=== PATIENT | female | born 1935 | race Caucasian/White ===

== ENCOUNTER 2018-10-27 09:53 | Inpatient (IN) | payer OTHER ==
--- OUTSIDE RECORDS SUMMARY | 2018-10-27 10:18 | XMS REPORT | Clinical Summary ---
:1935 Author Organization [facility] Address [address] [place] [address] Care Team Providers Name Role Phone Trav Abernathy MD Primary Care Provider Allergies Active Allergy Reactions Severity Noted Date Comments Codeine GI Intolerance 03/07/2017 Medications Medication Sig Dispensed Refills Start End Date Status Date omeprazole Take 20 mg by 0 Active (PriLOSEC) 20 MG mouth daily. capsule multivitamin with Take 1 tablet by 0 Active minerals tablet mouth daily. RESTASIS 0.05 % 6 Active ophthalmic 6 emulsion ELIQUIS 5 mg TK 1 T PO BID 3 Active tablet 7 carvedilol (COREG) TK 1 T PO BID 3 Active 6.25 MG tablet 7 DULoxetine TK 1 C PO QD 0 Active (CYMBALTA) 60 MG 7 capsule metFORMIN TK 1 T PO BID WITH 3 Active (GLUCOPHAGE) 500 THE MORNING AND 7 mg tablet ALEX MEAL VOLTAREN 1 % gel Apply 2-4 grams 300 g 1 Active four times a day 7 as needed for pain XELJANZ XR 11 mg Take 1 tablet by 30 tablet 1 Active tablet extended mouth every day as 7 release 24 hr directed by physician. valsartan (DIOVAN) TK 1 T PO QD. STOP 6 Active 80 MG tablet VALSARTAN 40MG 7 levothyroxine TK 1 T PO QD. STOP 3 Active (SYNTHROID, LEVOTHYROXINE 8 LEVOXYL) 75 mcg 88MCG tablet pregabalin Take 50 mg by 0 Active (LYRICA) 50 MG mouth daily. capsule rosuvastatin Take 5 mg by mouth 0 Active (CRESTOR) 5 MG daily. tablet aspirin (ECOTRIN) Take 81 mg by 0 Active 81 MG enteric mouth daily. coated tablet predniSONE Take 1 tablet (5 90 tablet 0 01/27/20 Active (DELTASONE) 5 mg mg total) by mouth 8 19 tablet daily. predniSONE Take 1 tablet (1 90 tablet 0 01/27/20 Active (DELTASONE) 1 mg mg total) by mouth 8 19 tablet daily. levothyroxine TAKE 1 TABLET(100 90 tablet 0 12/03/19 Discontinued (SYNTHROID, MCG) BY MOUTH 7 18 LEVOXYL) 100 mcg EVERY MORNING tablet predniSONE TK 8 T PO D 240 tablet 0 01/27/20 Discontinued (DELTASONE) 1 mg 7 18 tablet pregabalin Take 1 capsule (50 60 capsule 2 12/01/19 (LYRICA) 50 MG mg total) by mouth 7 18 capsule 2 (two) times a day for 90 days. predniSONE Take 2 tablets (20 30 tablet 0 12/03/19 Discontinued (DELTASONE) 10 mg mg) by mouth daily 8 18 tablet for 3 days, then take 1 tablet (10 mg) daily. predniSONE Take 10 mg by 0 01/27/20 Discontinued (DELTASONE) 10 mg mouth daily. 18 tablet Hospital, Clinic, or Other Ordered Dose Route Frequency Start Date End Date Status Facility Administered Medication methylPREDNISolone acetate 40 mg IM once 07/20/2017 Active (DEPO-MEDROL) injection 40 mgIndications: Effusion of left knee Active Problems Problem Noted Date Diverticulitis 03/07/2017 Abscess of sigmoid colon 02/22/2017 Other spondylosis with radiculopathy, lumbar region 01/26/2017 Spondylolisthesis of lumbar region 01/26/2017 Primary osteoarthritis of right knee 08/04/2016 Rheumatoid arthritis involving multiple sites with positive rheumatoid 2015 factor Follow-up examination following treatment with high-risk medication 05/06/2016 Hypothyroidism 04/03/2016 S/P [place]-BSO 04/03/2016 Hypertension 04/03/2016 Degeneration of intervertebral disc of lumbosacral region 03/09/2015 Encounters Date Type Specialty Care Team Description 08/17/2018 Office Visit Orthopedic Surgery [facility] of right D., patella (Primary Dx) 06/03/2018 Clinical Support Orthopedic Surgery [facility], Primary osteoarthritis MD of left knee (Primary Dx) 05/27/2018 Clinical Support Orthopedic Surgery [facility], Primary osteoarthritis MD of left knee (Primary Dx) 05/20/2018 Office Visit Orthopedic Surgery [facility], Primary osteoarthritis MD of left knee (Primary Dx) 05/06/2018 Office Visit Orthopedic Surgery [facility], Knee effusion, left (Primary Dx); Primary osteoarthritis of left knee 01/26/2018 Refill Rheumatology [place], [place] 12/03/2017 Office Visit Rheumatology [facility] Rheumatoid arthritis involving multiple sites with positive rheumatoid factor (Primary Dx); MD Aide Degeneration of intervertebral disc of lumbosacral region; Primary osteoarthritis of right knee; Hypothyroidism, unspecified type 11/11/2017 Telephone Rheumatology [place], [place] after 10/26/2017 Family History Medical History Relation Name Comments Diabetes Brother Lung cancer Father Diabetes Mother Relation Name Status Comments Brother Father lung cancer Mother (Age 80) diabetes Social History Tobacco Use Types Packs/Day Years Used Date Never Smoker Smokeless Tobacco: Never Used Alcohol Use Drinks/Week oz/Week Comments Yes 1 Glasses of wine 0.6 not found Sex Assigned at Date Recorded Not on file Job Start Date Occupation Industry Not on file Not on file Not on file Travel History Travel Start Travel End No recent travel history available. Last Filed Vital Signs Vital Sign Reading Time Taken Blood Pressure 148/95 12/03/2017 1:50 PM PLATE FURNACE OPERATOR Pulse 67 12/03/2017 1:50 PM PLATE FURNACE OPERATOR Temperature - - Respiratory Rate - - Oxygen Saturation - - Inhaled Oxygen Concentration - - Weight 72.6 kg (160 lb) 08/17/2018 1:25 PM CDT Height 154.9 cm (5' 1") 08/17/2018 1:25 PM CDT Body Mass Index 30.23 08/17/2018 1:25 PM CDT Plan of Treatment Date Type Specialty Care Team Description 12/13/2018 Office Visit [place] [address] [place], [place] [id number] Health Maintenance Due Date Last Done Comments SHINGLES VACCINES (1 of 2) 1983 PNEUMOCOCCAL POLYSACCHARIDE VACCINE AGE 65 AND OVER 1998 PNEUMOCOCCAL-13 1998 INFLUENZA VACCINE 05/19/2018 Implants Implanted Type Area Medical Doctor Md/Medical Director Device Identifier Shelf Expiration Model / Serial Date / Lot Plate Procedures Procedure Name Priority Date/Time Associated Diagnosis Comments OK ARTHROCENTESIS Routine 06/03/2018 10:40 Primary Results for this ASPIR&/INJ MAJOR AM CDT osteoarthritis of procedure are in JT/BURSA W/O US left knee the results section. OK ARTHROCENTESIS Routine 05/27/2018 10:40 Primary Results for this ASPIR&/INJ MAJOR AM CDT osteoarthritis of procedure are in JT/BURSA W/O US left knee the results section. OK ARTHROCENTESIS Routine 05/20/2018 10:50 Primary Results for this ASPIR&/INJ MAJOR AM CDT osteoarthritis of procedure are in JT/BURSA W/O US left knee the results section. OK ARTHROCENTESIS Routine 05/06/2018 11:10 Knee effusion, left Results for this ASPIR&/INJ MAJOR AM CDT procedure are in JT/BURSA W/O US the results section. C-REACTIVE PROTEIN Routine 12/03/2017 2:43 Rheumatoid arthritis Results for this PM PLATE FURNACE OPERATOR involving multiple procedure are in sites with positive the results rheumatoid factor section. Degeneration of intervertebral disc of lumbosacral region Primary osteoarthritis of right knee Hypothyroidism, unspecified type COMPREHENSIVE Routine 12/03/2017 2:43 Rheumatoid arthritis Results for this METABOLIC PANEL PM PLATE FURNACE OPERATOR involving multiple procedure are in sites with positive the results rheumatoid factor section. Degeneration of intervertebral disc of lumbosacral region Primary osteoarthritis of right knee Hypothyroidism, unspecified type SEDIMENTATION RATE Routine 12/03/2017 2:43 Rheumatoid arthritis Results for this PM PLATE FURNACE OPERATOR involving multiple procedure are in sites with positive the results rheumatoid factor section. Degeneration of intervertebral disc of lumbosacral region Primary osteoarthritis of right knee Hypothyroidism, unspecified type CBC WITH PLATELET AND Routine 12/03/2017 2:43 Rheumatoid arthritis Results for this DIFFERENTIAL PM PLATE FURNACE OPERATOR involving multiple procedure are in sites with positive the results rheumatoid factor section. Degeneration of intervertebral disc of lumbosacral region Primary osteoarthritis of right knee Hypothyroidism, unspecified type after 10/26/2017 Results Large Joint Arthrocentesis (06/03/2018 10:40 AM CDT) Narrative Performed At Guille Renee MD 06/03/2018 10:57 AM Large Joint Arthrocentesis Consent given by: patient Timeout: Immediately prior to procedure a time out was called to verify the correct patient, procedure, equipment, software support specialist and site/side marked as required Supporting Documentation Indications: pain Procedure Details Preparation: Patient was prepped and draped in the usual sterile fashion Ultrasound guided: no Location: knee - L knee Left side: Needle size: 22 G Approach: anterolateral Left knee medications administered: 2 mL sodium hyaluronate (viscosup) 30 mg/2 mL Large Joint Arthrocentesis (05/27/2018 10:40 AM CDT) Narrative Performed At Guille Renee MD 05/27/2018 11:11 AM Large Joint Arthrocentesis Consent given by: patient Timeout: Immediately prior to procedure a time out was called to verify the correct patient, procedure, equipment, software support specialist and site/side marked as required Supporting Documentation Indications: pain Procedure Details Preparation: Patient was prepped and draped in the usual sterile fashion Ultrasound guided: no Location: knee - L knee Left side: Needle size: 22 G Approach: anterolateral Left knee medications administered: 2 mL sodium hyaluronate (viscosup) 30 mg/2 mL Large Joint Arthrocentesis (05/20/2018 10:50 AM CDT) Narrative Performed At Guille Renee MD 05/20/20182:53 PM Large Joint Arthrocentesis Consent given by: patient Timeout: Immediately prior to procedure a time out was called to verify the correct patient, procedure, equipment, software support specialist and site/side marked as required Supporting Documentation Indications: pain Procedure Details Preparation: Patient was prepped and draped in the usual sterile fashion Ultrasound guided: no Location: knee - L knee Left side: Needle size: 22 G Approach: anterolateral Left knee medications administered: 2 mL sodium hyaluronate (viscosup) 30 mg/2 mL; 80 mg methylPREDNISolone acetate 40 mg/mL Large Joint Arthrocentesis (05/06/2018 11:10 AM CDT) Narrative Performed At Guille Renee MD 05/06/2018 11:33 AM Large Joint Arthrocentesis Consent given by: patient Timeout: Immediately prior to procedure a time out was called to verify the correct patient, procedure, equipment, software support specialist and site/side marked as required Supporting Documentation Indications: pain and joint swelling Procedure Details Preparation: Patient was prepped and draped in the usual sterile fashion Location: knee - L knee Left side: Needle size: 22 G Approach: anterolateral Left knee medications administered: 50 mL lidocaine 10 mg/mL (1 %); 80 mg methylPREDNISolone acetate 40 mg/mL Sedimentation rate (12/03/2017 2:43 PM PLATE FURNACE OPERATOR) Sedimentation rate 5 0 - 40 mm/hr [facility] Specimen Blood Narrative Performed At Performed at:01 - [facility] [address] [place], [place] [id number] Operations Officer Afloat: Vargas Cordon MD, Phone:[phone] Performing Organization Address City/State/Zipcode Phone Number [facility] CBC with platelet and differential (12/03/2017 2:43 PM PLATE FURNACE OPERATOR) WBC 7.7 3.4 - 10.8 x10E3/uL [facility] RBC 3.87 3.77 - 5.28 x10E6/uL [facility] HGB 12.1 11.1 - 15.9 g/dL [facility] HCT 37.0 34.0 - 46.6 % [facility] MCV 96 79 - 97 fL [facility] MCH 31.3 26.6 - 33.0 pg [facility] MCHC 32.7 31.5 - 35.7 g/dL [facility] RDW 14.0 12.3 - 15.4 % [facility] Platelet count 385 (H) 150 - 379 x10E3/uL [facility] Neutrophils 74 Not Estab. % [facility] Lymphocytes 19 Not Estab. % [facility] Monocytes 5 Not Estab. % [facility] Eosinophils 1 Not Estab. % [facility] Basophils 0 Not Estab. % [facility] Neutrophils, absolute 5.7 1.4 - 7.0 x10E3/uL [facility] Lymphocytes, absolute 1.5 0.7 - 3.1 x10E3/uL [facility] Monocytes, absolute 0.4 0.1 - 0.9 x10E3/uL [facility] Eosinophils, absolute 0.1 0.0 - 0.4 x10E3/uL [facility] Basophils, absolute 0.0 0.0 - 0.2 x10E3/uL [facility] Immature granulocytes 1 Not Estab. % [facility] Immature grans (abs) 0.0 0.0 - 0.1 x10E3/uL [facility] Specimen Blood Narrative Performed At Performed at: - [facility] [address] [place], [place] [id number] Operations Officer Afloat: Vargas Cordon MD, Phone:[phone] Performing Organization Address [facility] Phone Number [facility] C-reactive protein (12/03/2017 2:43 PM PLATE FURNACE OPERATOR) CRP 0.3 0.0 - 4.9 mg/L [facility] Specimen Blood Narrative Performed At Performed at: - [facility] [address] [place], [place] [id number] Operations Officer Afloat: Vargas Cordon MD, Phone:[phone] Performing Organization Address [facility] Phone Number [facility] Comprehensive metabolic panel (12/03/2017 2:43 PM PLATE FURNACE OPERATOR) Glucose 135 (H) 65 - 99 mg/dL [facility] BUN, whole blood 17 8 - 27 mg/dL [facility] Creatinine 0.95 0.57 - 1.00 mg/dL [facility] EGFR Non-Afr. [place]an 55 (L) >59 mL/min/1.73 [facility] EGFR 64 >59 mL/min/1.73 [facility] BUN/creatinine ratio 18 12 - 28 [facility] Sodium 136 134 - 144 mmol/L [facility] Potassium 4.9 3.5 - 5.2 mmol/L [facility] Chloride 92 (L) 96 - 106 mmol/L [facility] CO2 24 18 - 29 mmol/L [facility] Calcium 9.4 8.7 - 10.3 mg/dL [facility] Protein 6.6 6.0 - 8.5 g/dL [facility] Albumin, S 4.0 3.5 - 4.7 g/dL [facility] Globulin, total 2.6 1.5 - 4.5 g/dL [facility] Albumin/globulin ratio 1.5 1.2 - 2.2 [facility] Total bilirubin 0.4 0.0 - 1.2 mg/dL [facility] Alkaline phosphatase 48 39 - 117 IU/L [facility] AST 21 0 - 40 IU/L [facility] ALT 21 0 - 32 IU/L [facility] Specimen Blood Narrative Performed At Performed at: - [facility] [address] [place], [id number] Operations Officer Afloat: Vargas Cordon MD, Phone:[phone] Performing Organization Address City/State/Zipcode Phone Number [facility] after 10/26/2017 Insurance Payer Benefit Plan / Group Subscriber ID Type Phone Address HUMANA MEDICARE HU[employer]NA MEDICARE PPO/PFFS/ERS MCR xxxxxxxxx PPO Advance Directives Patient has advance care planning documents on file. For more information, please contact:Ras Hawkins[address] [place] [address]
[2018-10-27] MEDS ORDERED: ALBUTEROL 2.5 MG/3 ML NEB SOL ONE (10:50)
[2018-10-27] MEDS ORDERED: IPRATROPIUM BROM 0.5MG/2.5ML ONE (10:50)
--- NOTE | 2018-10-27 11:08 | RAD REPORT ---
EXAM DESCRIPTION: RAD - Chest Single View - 10/27/2018 11:02 am CLINICAL HISTORY: COUGH Chest pain. COMPARISON: Chest Single View dated 02/28/2017; Chest Single View dated 02/21/2017; CHEST SINGLE VIEW d ated 05/16/2014; CHEST PA AND LAT 2 VIEW dated 10/28/2008 FINDINGS: Portable technique limits examination quality. The lungs are underinflated resulting in vascular crowding. The heart is normal in size. No displaced fractures. IMPRESSION: Underinflated lungs.
[2018-10-27 11:16] LABS: Absolute Lymphocytes (CBC) 2.2 K/uL (0.7-4.9); Absolute Monocytes 1.2 K/uL (0.1-1.3); Basophils % 0.5 % (0-1.3); Eosinophils % 2.7 % (0-4.4); Lymphocytes % 20.3 % (15.3-44.8); MPV 7.9 fL (7.6-11.3); Monocytes % 11.4 % (3.3-12.3); RBC Red Blood Cell Count 3.76 M/uL (3.86-4.86)
[2018-10-27 11:25] LABS: Protime INR 1.03
[2018-10-27 11:33] LABS: ALT/SGPT 22 U/L (12-78); AST/SGOT 23 U/L (15-37); Alkaline Phosphatase 51 U/L (45-117); BUN Blood Urea Nitrogen 12 mg/dL (7-18); Bicarbonate 28 mmol/L (21-32); Bilirubin Direct 0.2 mg/dL (0-0.2); Bilirubin Total 0.6 mg/dL (0.2-1.0); Glucose Level 129 mg/dL (74-106); Lipase 63 U/L (73-393); NT PRO-BNP 546 pg/mL (<450); Potassium 3.6 mmol/L (3.5-5.1); Protein, Total 6.7 g/dL (6.4-8.2); Sodium Level 134 mmol/L (136-145); Troponin (Emerg Dept Use Only) < 0.02 ng/mL (0.0-0.045)
[2018-10-27 12:02] LABS: Urine Blood 1+ (NEG); Urine Glucose NEGATIVE (NEG); Urine Protein 1+ (NEG); Urine Specific Gravity 1.015 (1.005-1.030); Urine pH 8.5 (5.0-7.0)
[2018-10-27 12:05] LABS: Urine Bacteria >50 /HPF (<20); Urine Culture Reflex Order REFLEXED
--- NOTE | 2018-10-27 13:25 | EKG ---
Test Date: 2018-10-27 Test Time: 10:34:58 Adjunct Physical Education Instructor: TRAVON MEASUREMENT RESULTS: Intervals: Rate: 95 ID: [id number] QRSD: 78 QT: 336 QTc: 422 [place]: P: 36 ID: [id number] QRS: -34 T: 57 INTERPRETIVE STATEMENTS: Normal sinus rhythm Left axis deviation Low voltage QRS Abnormal ECG Compared to ECG 02/28/2017 09:46:20 Left-axis deviation now present Atrial premature complex(es) no longer present Electronically Signed On 10-27-18 13:24:26 STEEL MANAGER by Arnaud Peñaloza
[2018-10-27] MEDS ORDERED: CEFTRIAXONE/SWI 1gm 1 GM/10 ML SYR ONE (13:59)
--- NOTE | 2018-10-27 14:28 | RAD REPORT ---
EXAM DESCRIPTION: CTAbdomen Pelvis W Contrast - 10/27/2018 2:19 pm CLINICAL HISTORY: Abdominal pain. back pain COMPARISON: Abdomen Pelvis W Contrast dated 03/07/2017; Abdomen Pelvis W Contrast dated 02/28/2017 ; Chest Single View dated 10/27/2018 TECHNIQUE: Biphasic CT imaging of the abdomen and pelvis was performed with 100 ml non-ionic IV cont rast. All CT scans are performed using dose optimization technique as appropriate and may include automated exposure control or mA/KV adjustment according to patient size. FINDINGS: The lung bases are emphysematous but clear.Minimal right pleural fluid. Small hiatal herni a. Diffuse fatty liver pattern is seen. Small enhancing lesion in the right lobe liver superiorly and po steriorly measuring 10 mm is noted, mildly increased in size since 2017 comparative study. The spleen , adrenal glands and kidneys are within normal limits. Mild pancreatic atrophy is present. No bowel obstruction, free air, free fluid or abscess. Sigmoid diverticulosis coli is present without diverticulitis. Small fat containing umbilical hernia. The appendix appears dilated mildly to 9 mm w ith trace surrounding periappendiceal fat stranding. This is suspicious for early acute appendicitis. No evidence of significant lymphadenopathy. Degenerative changes are noted at L2-3 and L5-S1. Mild anterolisthesis of L5 on S1 is seen. IMPRESSION: Early acute appendicitis is suspected. Mild increase in size a small enhancing right hepatic lobe lesion. This is favored to be benign, jay steph followup MR liver protocol on a nonemergent basis would be recommended.
--- NOTE | 2018-10-27 14:59 | EDPHYS ---
Physician Documentation [facility] Name: Caridad Chadwick Age: 83 yrs Sex: Female : 1935 Arrival Date: 10/27/2018 Time: 09:56 Bed 14 Private MD: ED Physician Germán Forrester HPI: 10/27 10:30 This 83 yrs old Female presents to ER via EMS with complaints of Chest cp Congestion. 10:30 The patient or guardian reports cough, that is intermittent. cp 10:30 Onset: The symptoms/episode began/occurred last week. cp 10:30 Modifying factors: The symptoms are alleviated by nothing. cp 10:30 The patient presents with pain that is acute, with no known mechanism of injury, and cp tenderness. 10:30 The symptoms are located in the low back. Onset: The symptoms/episode began/occurred cp gradually, and became worse today. The pain does not radiate. Associated signs and symptoms: Pertinent positives: abdominal pain, nausea, Pertinent negatives: chest pain, constipation, fever, incontinence, numbness, weakness. Severity of symptoms: in the emergency department the symptoms are unchanged, despite home interventions. Historical: - Allergies: 10:13 Codeine; jl7 - Home Meds: 10:13 prednisone 5 mg Oral tab once daily [Active]; carvedilol 12.5 mg oral tab [Active]; jl7 valsartan 80 mg oral tab [Active]; Synthroid 75 mcg oral tab [Active]; metformin 500 mg Oral Tb24 1 tab 2 times per day [Active]; omeprazole 20 mg Oral cpDR [Active]; amlodipine 5 mg tab [Active]; Cymbalta 30 mg oral cpDR [Active]; aspirin 81 mg Oral chew [Active]; Lyrica 50 mg three times a day Oral [Active]; rosuvastatin 5 mg oral tab [Active]; - PMHx: 10:13 Diabetes - NIDDM; Diverticulitis; jl7 - Immunization history:: Adult Immunizations up to date. - Social history:: Smoking status: Patient/guardian denies using tobacco. - Ebola Screening: : No symptoms or risks identified at this time. ROS: 10:35 Constitutional: Negative for body aches, chills, fever, poor PO intake. cp 10:35 Eyes: Negative for injury, pain, redness, and discharge. cp 10:35 ENT: Negative for drainage from ear(s), ear pain, sore throat, difficulty swallowing, difficulty handling secretions. 10:35 Cardiovascular: Negative for chest pain, edema, palpitations. 10:35 Respiratory: Positive for cough, "sounds productive". 10:35 Abdomen/GI: Positive for abdominal pain, nausea, of the right lower quadrant and left lower quadrant, Negative for vomiting, diarrhea, constipation. 10:35 Back: Positive for pain at rest, pain with movement. 10:35 Skin: Negative for cellulitis, rash. 10:35 Neuro: Negative for altered mental status, headache, syncope, weakness. 10:35 All other systems are negative. Exam: 10:40 Constitutional: The patient appears in no acute distress, alert, awake, cp non-diaphoretic, non-toxic, well developed, well nourished, uncomfortable. 10:40 Head/Face: Normocephalic, atraumatic. cp 10:40 Eyes: Periorbital structures: appear normal, Pupils: equal, round, and reactive to light and accomodation, Extraocular movements: intact throughout, Conjunctiva: normal, no exudate, no injection, Sclera: no appreciated abnormality, Lids and lashes: appear normal, bilaterally. 10:40 ENT: External ear(s): are unremarkable, Ear canal(s): are normal, clear, TM's: bulging, is not appreciated, bilaterally, dullness, bilaterally, erythema, is not appreciated, bilaterally, Nose: is normal, Mouth: Lips: moist, Oral mucosa: pink and intact, moist, Posterior pharynx: is normal, airway is patent, no erythema, no exudate. 10:40 Neck: ROM/movement: is normal, is supple, without pain, no range of motions limitations, no meningismus, no nuchal rigidity. 10:40 Chest/axilla: Inspection: normal, Palpation: is normal, no crepitus, no tenderness. 10:40 Cardiovascular: Rate: normal, Rhythm: regular, Edema: is not appreciated, JVD: is not appreciated. 10:40 Respiratory: the patient does not display signs of respiratory distress, Respirations: normal, no use of accessory muscles, no retractions, no splinting, no tachypnea, labored breathing, is not present, Breath sounds: bronchial sounds, that are moderate, are heard diffusely, stridor, is not appreciated, + upper airway congestion. wheezing: is not appreciated. 10:40 Abdomen/GI: Inspection: abdomen appears normal, Bowel sounds: active, all quadrants, Palpation: soft, in all quadrants, mild abdominal tenderness, in the suprapubic area and right lower quadrant, rebound tenderness, is not appreciated, voluntary guarding, is not appreciated, involuntary guarding, is not appreciated. 10:40 Back: pain, that is moderate, of the low back area, ROM is normal. 10:40 Skin: cellulitis, is not appreciated, no rash present. 10:40 Neuro: Orientation: to person, place \\T\\ time. Mentation: is normal, Cerebellar function: is grossly normal, Motor: moves all fours, strength is normal, Sensation: is normal. 10:50 ECG was reviewed by the Attending Physician. Vital Signs: 10:13 BP 133 / 68; Pulse 88; Resp 19 S; Temp 99.3(O); Pulse Ox 94% on R/A; Weight 72.57 kg jl7 (R); Height 5 ft. 1 in. (154.94 cm) (R); Pain 8/10; 11:43 BP 120 / 65; Pulse 90; Resp 18; Pulse Ox 95% on R/A; aj 13:56 BP 126 / 73; Pulse 95; Resp 22; Pulse Ox 94% on R/A; aj 16:17 BP 126 / 73; Pulse 92; Resp 19; Pulse Ox 94% on R/A; aj 17:02 BP 131 / 76; Pulse 72; Resp 18; Pulse Ox 94% on R/A; aj 17:07 BP 118 / 75; Pulse 72; Resp 19; Pulse Ox 97% on R/A; aj 10:13 Body Mass Index 30.23 (72.57 kg, 154.94 cm) jl7 MDM: 10:18 Patient medically screened. cp 15:00 Data reviewed: vital signs, nurses notes, lab test result(s), EKG, radiologic studies, cp CT scan, I have discussed the patient's presentation/case with the attending Emergency Department Physician; and as a result, I will admit patient. 15:00 Test interpretation: by ED physician or midlevel provider: ECG. Counseling: I had a cp detailed discussion with the patient and/or guardian regarding: the historical points, exam findings, and any diagnostic results supporting the discharge/admit diagnosis, lab results, radiology results, the need for further work-up and treatment in the hospital. 10/27 10:25 Order name: Basic Metabolic Panel cp 10/27 10:25 Order name: CBC with Diff cp 10/27 10:25 Order name: LFT's; Complete Time: 11:49 cp 10/27 11:51 Interpretation: Normal except: ALB 3.0; GLOB 3.7; A/G 0.8. cp 10/27 10:25 Order name: Magnesium; Complete Time: 11:49 cp 10/27 10:25 Order name: NT PRO-BNP; Complete Time: 11:49 cp 10/27 12:41 Interpretation: Abnormal: NT PRO-BNP 546. cp 10/27 10:25 Order name: PT-INR; Complete Time: 11:33 cp 10/27 10:25 Order name: Troponin (emerg Dept Use Only); Complete Time: 11:49 cp 10/27 12:41 Interpretation: TROPED < 0.02; Reviewed. cp 10/27 10:25 Order name: Lipase; Complete Time: 11:49 cp 10/27 10:25 Order name: Procalcitonin; Complete Time: 11:49 cp 10/27 10:25 Order name: Influenza Screen (a \\T\\ B); Complete Time: 11:49 cp 10/27 10:25 Order name: Lactate; Complete Time: 12:25 cp 10/27 12:26 Interpretation: LAC 1.3; Reviewed. cp 10/27 10:25 Order name: Basic Metabolic Panel; Complete Time: 11:49 EDMS 10/27 11:51 Interpretation: Normal except: NA 134; CL 97; GLUC 129; GFR 55; CA 8.3. cp 10/27 10:25 Order name: CBC with Automated Diff; Complete Time: 11:33 EDMS 10/27 11:33 Interpretation: Normal except: RBC 3.76; HGB 11.8; HCT 34.0. cp 10/27 11:01 Order name: Urine Microscopic Only; Complete Time: 12:11 cp 10/27 12:11 Interpretation: Normal except: UWBC >50; URBC 10-20; UBACT >50; SQEPI 10-20. cp 10/27 10:25 Order name: XRAY Chest (1 view); Complete Time: 11:19 cp 10/27 11:19 Interpretation: Report review. cp 10/27 11:50 Order name: CT Abd/Pelvis - W/Contrast; Complete Time: 14:38 cp 10/27 12:00 Order name: Urine Dipstick--Ancillary (enter results) ms 10/27 12:03 Order name: Urine Dipstick-Ancillary; Complete Time: 12:11 EDDE 10/27 12:11 Interpretation: Normal except: UBLD 1+; UPH 8.5; UPROT 1+; U NIT POSITIVE; UESTR 1+. cp 10/27 12:07 Order name: Urine Culture EDDE 10/27 15:22 Order name: Basic Metabolic Panel EDDE 10/27 15:22 Order name: Basic Metabolic Panel EDDE 10/27 15:22 Order name: CBC with Automated Diff EDMS 10/27 15:22 Order name: CBC with Automated Diff EDMS 10/27 15:22 Order name: Lipase EDDE 10/27 15:22 Order name: Lipase EDDE 10/27 15:22 Order name: Liver (Hepatic) Function EDDE 10/27 15:22 Order name: Liver (Hepatic) Function EDDE 10/27 10:25 Order name: EKG; Complete Time: 10:26 cp 10/27 10:25 Order name: Cardiac monitoring; Complete Time: 11:35 cp 10/27 10:25 Order name: EKG - Nurse/Tech; Complete Time: 11:35 cp 10/27 10:25 Order name: IV Saline Lock; Complete Time: 11:35 cp 10/27 10:25 Order name: Labs collected and sent; Complete Time: 11:35 cp 10/27 10:25 Order name: O2 Per Protocol; Complete Time: 11:35 cp 10/27 10:25 Order name: O2 Sat Monitoring; Complete Time: 11:35 cp 10/27 11:01 Order name: Urine Dipstick-Ancillary (obtain specimen) 10/27 14:58 Order name: NPO; Complete Time: 15:22 cp 10/27 15:15 Order name: CONS Physician Consult EDDE 10/27 15:22 Order name: NPO; Complete Time: 15:22 EDMS EC:50 Rate is 95 beats/min. Rhythm is regular. RI interval is normal. QRS interval is normal. cp QT interval is normal. Interpreted by me. Reviewed by me. Administered Medications: 10:45 Drug: AtroVENT Aerosol 0.5 mg Route: Inhalation; jl7 11:49 Follow up: Response: No adverse reaction jl7 11:35 Drug: Albuterol 2.5 mg Route: Inhalation; jl7 11:49 Follow up: Response: No adverse reaction jl7 13:55 Drug: Rocephin 1 grams Route: IV; Rate: calculated rate; Site: right hand; aj 17:32 Follow up: Response: No adverse reaction; IV Status: Completed infusion; IV Intake: 10mlaj 15:12 Drug: Zosyn 3.375 grams Route: IVPB; Infused Over: 60 mins; Site: right hand; 17:31 Follow up: Response: No adverse reaction; IV Status: Completed infusion; IV Intake: aj 100ml 16:01 Drug: fentaNYL (PF) 25 mcg Route: IVP; Site: right hand; aj 17:31 Follow up: Response: Pain is decreased Disposition: 18:15 Co-signature as Attending Physician, Germán Forrester MD. rn Disposition: 10/27/18 14:58 Hospitalization ordered by Trav Abernathy for Inpatient Admission. Preliminary diagnosis are Urinary tract infection, site not specified, Acute appendicitis. - Bed requested for Telemetry/MedSurg (Inpatient). - Status is Inpatient Admission. aj - Condition is Stable. - Problem is new. - Symptoms have improved. UTI on Admission? Yes Signatures: Dispatcher [employer] EDMS Codi Wright Amanda, RN RN aj Nieto, Roman, MD MD rn Joaquin, Henry, RN RN hj Page, Corey, PA PA cp Leal, Jahala RN RN jl7 Corrections: (The following items were deleted from the chart) 11:51 11:51 Normal except: NA 134; CL 97; GLUC 129; GFR 55. cp cp 16:01 14:58 Hospitalization Ordered by Trav Abernathy MD for Inpatient Admission. Preliminary bd diagnosis is Urinary tract infection, site not specified; Acute appendicitis. Bed requested for Telemetry/MedSurg (Inpatient). Status is Inpatient Admission. Condition is Stable. Problem is new. Symptoms have improved. UTI on Admission? Yes. cp 17:33 16:01 10/27/2018 14:58 Hospitalization Ordered by Trav Abernathy MD for Inpatient aj Admission. Preliminary diagnosis is Urinary tract infection, site not specified; Acute appendicitis. Bed requested for Telemetry/MedSurg (Inpatient). Status is Inpatient Admission. Condition is Stable. Problem is new. Symptoms have improved. UTI on Admission? Yes. bd
--- NOTE | 2018-10-27 14:59 | ER ---
Nurse's Notes [facility] Name: Caridad Chadwick Age: 83 yrs Sex: Female : 1935 Arrival Date: 10/27/2018 Time: 09:56 Bed 14 Private MD: Diagnosis: Urinary tract infection, site not specified;Acute appendicitis Presentation: 10/27 10:06 Presenting complaint: EMS states: Pt c/o chest congestion and right low back pain. jl7 Transition of care: patient was not received from another setting of care. Onset of symptoms was October 27, 2018. Risk Assessment: Do you want to hurt yourself or someone else? Patient reports no desire to harm self or others. Initial Sepsis Screen: Does the patient meet any 2 criteria? HR > 90 bpm. No. Patient's initial sepsis screen is negative. Does the patient have a suspected source of infection? Yes: Productive cough/pneumonia. Care prior to arrival: Pt took Robitussin this morning at 0800. 10:06 Method Of Arrival: EMS: [facility] jl7 10:06 Acuity: ZOIE 3 jl7 Triage Assessment: 10:13 General: Appears in no apparent distress. uncomfortable, Behavior is calm, cooperative, jl7 appropriate for age. Pain: Complains of pain in right low back Pain currently is 8 out of 10 on a pain scale. Quality of pain is described as sharp, Is continuous. EENT: No signs and/or symptoms were reported regarding the EENT system. Neuro: Level of Consciousness is awake, alert, obeys commands, Oriented to person, place, time, situation. Cardiovascular: Heart tones present Patient's skin is warm and dry. Respiratory: Reports cough that is productive, Airway is patent Respiratory effort is even, unlabored, Respiratory pattern is regular, symmetrical, Breath sounds with wheezes bilaterally. congestion auscultated david. GI: No signs and/or symptoms were reported involving the gastrointestinal system. Patient currently denies diarrhea, nausea, vomiting. : No signs and/or symptoms were reported regarding the genitourinary system. Denies burning with urination, pain with urination. Derm: Skin is pink, warm \\T\\ dry. Musculoskeletal: No signs and/or symptoms reported regarding the musculoskeletal system. Historical: - Allergies: 10:13 Codeine; jl7 - Home Meds: 10:13 prednisone 5 mg Oral tab once daily [Active]; carvedilol 12.5 mg oral tab [Active]; jl7 valsartan 80 mg oral tab [Active]; Synthroid 75 mcg oral tab [Active]; metformin 500 mg Oral Tb24 1 tab 2 times per day [Active]; omeprazole 20 mg Oral cpDR [Active]; amlodipine 5 mg tab [Active]; Cymbalta 30 mg oral cpDR [Active]; aspirin 81 mg Oral chew [Active]; Lyrica 50 mg three times a day Oral [Active]; rosuvastatin 5 mg oral tab [Active]; - PMHx: 10:13 Diabetes - NIDDM; Diverticulitis; jl7 - Immunization history:: Adult Immunizations up to date. - Social history:: Smoking status: Patient/guardian denies using tobacco. - Ebola Screening: : No symptoms or risks identified at this time. Screenin:43 Abuse screen: Denies threats or abuse. Denies injuries from another. Nutritional aj screening: No deficits noted. Tuberculosis screening: No symptoms or risk factors identified. Fall Risk None identified. Assessment: 10:20 General: See triage assessment. jl7 11:20 Reassessment: No changes from previously documented assessment. Patient and/or family jl7 updated on plan of care and expected duration. Pain level reassessed. Patient is alert, oriented x 3, equal unlabored respirations, skin warm/dry/pink. 12:10 General: Appears in no apparent distress. comfortable, Behavior is calm, cooperative, aj appropriate for age. Pain: Denies pain. Neuro: Level of Consciousness is awake, alert, obeys commands, Oriented to person, place, time, situation, Appropriate for age. Respiratory: Airway is patent Respiratory effort is even, unlabored, Respiratory pattern is regular, symmetrical. 12:10 Respiratory: Reports cough that is pain with cough. GI: Patient currently denies aj abdominal pain. Derm: Skin is intact, is healthy with good turgor, Skin is pink, warm \\T\\ dry. normal. Vital Signs: 10:13 BP 133 / 68; Pulse 88; Resp 19 S; Temp 99.3(O); Pulse Ox 94% on R/A; Weight 72.57 kg jl7 (R); Height 5 ft. 1 in. (154.94 cm) (R); Pain 8/10; 11:43 BP 120 / 65; Pulse 90; Resp 18; Pulse Ox 95% on R/A; aj 13:56 BP 126 / 73; Pulse 95; Resp 22; Pulse Ox 94% on R/A; aj 16:17 BP 126 / 73; Pulse 92; Resp 19; Pulse Ox 94% on R/A; aj 17:02 BP 131 / 76; Pulse 72; Resp 18; Pulse Ox 94% on R/A; aj 17:07 BP 118 / 75; Pulse 72; Resp 19; Pulse Ox 97% on R/A; aj 10:13 Body Mass Index 30.23 (72.57 kg, 154.94 cm) jl7 ED Course: 09:56 Patient arrived in ED. hj 10:05 Lakeisha Lopez, SHARLENE is Primary Nurse. jl7 10:08 Triage completed. jl7 10:13 Arm band placed on right wrist. jl7 10:16 [place] PA is PHCP. cp 10:16 Germán Forrester MD is Attending Physician. cp 10:44 EKG done, by aviation electrical technician. reviewed by [place]. at1 10:46 Radiology exam delayed due to NURSE STATES, "IT WILL BE A FEW MINUTES". jb2 11:00 Initial lab(s) drawn, by mn, sent to lab. Inserted saline lock: 22 gauge in right hand, jl7 using aseptic technique. Blood collected. 11:01 X-ray completed. Portable x-ray completed in exam room. Patient tolerated procedure sw well. 11:04 XRAY Chest (1 view) In Process Unspecified. EDMS 11:43 Patient has correct armband on for positive identification. aj 12:10 Erica Crews, RN is Primary Nurse. aj 13:[address] via stretcher. jg6 14:20 CT Abd/Pelvis - W/Contrast In Process Unspecified. EDMS 14:57 Trav Abernathy MD is Hospitalizing Provider. cp 16:22 Attempted to give report to Analy on second floor. Was told "housekeeping just went aj in to the room, they will call you back when it is clean.". 17:02 No provider procedures requiring assistance completed. Patient admitted, IV remains in aj place. Administered Medications: 10:45 Drug: AtroVENT Aerosol 0.5 mg Route: Inhalation; jl7 11:49 Follow up: Response: No adverse reaction jl7 11:35 Drug: Albuterol 2.5 mg Route: Inhalation; jl7 11:49 Follow up: Response: No adverse reaction jl7 13:55 Drug: Rocephin 1 grams Route: IV; Rate: calculated rate; Site: right hand; 17:32 Follow up: Response: No adverse reaction; IV Status: Completed infusion; IV Intake: 10mlaj 15:12 Drug: Zosyn 3.375 grams Route: IVPB; Infused Over: 60 mins; Site: right hand; 17:31 Follow up: Response: No adverse reaction; IV Status: Completed infusion; IV Intake: aj 100ml 16:01 Drug: fentaNYL (PF) 25 mcg Route: IVP; Site: right hand; 17:31 Follow up: Response: Pain is decreased aj Intake: 17:31 IV: 100ml; Total: 100ml. 17:32 IV: 10ml; Total: 110ml. Outcome: 14:58 Decision to Hospitalize by Provider. cp 17:02 Admitted to Med/surg accompanied by tech, family with patient, via stretcher, on monitor, with chart, Report called to [facility] 17:02 Condition: good 17:02 Instructed on the need for admit. 17:33 Patient left the ED. Signatures: Dispatcher [employer] EDErica Bajwa, RN RN Perico Hensley jb2 Erica Rivas, tree and shrub worker EKG Tat1 Zoraida Rios Henry RN RN [place] PA PA cp Leal, Jahala RN RN Ely Barger [email or web address] Corrections: (The following items were deleted from the chart) 13:55 13:54 Rocephin 1 grams IV at calculated rate in PICC [facility]
[2018-10-27] MEDS ORDERED: PIPER/TAZO/NS 3.375gm 3.375 GM/100 ML BAG ONE ×2 (15:08→15:19)
[2018-10-27] MEDS ORDERED: ONDANSETRON 4 MG/2 ML VIAL IV PRN (15:14)
[2018-10-27] MEDS ORDERED: ACETAMINOPHEN 500 MG TAB PO PRN (15:14)
[2018-10-27] MEDS ORDERED: D50W 25 GM/50 ML SYRINGE IV PRN (15:18)
[2018-10-27] MEDS ORDERED: GLUCAGON 1 MG/VIAL IM PRN (15:18)
[2018-10-27] MEDS ORDERED: FENTANYL CITR 100 MCG/2 ML ONE (16:09)
[2018-10-27] MEDS: INSULIN -REGULAR HUMAN 50 UNIT/0.5 ML ML SQ SCH ×2 (16:30→21:00)
[2018-10-27] MEDS ORDERED: PIPER/TAZO/NS 3.375gm 3.375 GM/100 ML BAG IVPB SCH (17:00)
[2018-10-27] MEDS: MORPHINE 4 MG/ML SYR IV PRN (18:03)
[2018-10-27] MEDS: NA CHLORIDE 0.9% 1,000 ML IV SCH (18:10)
[2018-10-27 18:30] VITALS: BMI 29.2
[2018-10-28] MEDS: PIPER/TAZO/NS 3.375gm 3.375 GM/100 ML BAG IVPB SCH ×3 (00:11→17:11)
[2018-10-28] MEDS: MORPHINE 4 MG/ML SYR IV PRN ×3 (00:14→21:16)
[2018-10-28] MEDS: LEVOTHYROXINE SOD 0.075 MG TAB PO SCH (05:22)
[2018-10-28] MEDS: NA CHLORIDE 0.9% 1,000 ML IV SCH ×2 (05:22→18:10)
[2018-10-28] MEDS: PANTOPRAZOLE 40MG TABLET PO SCH (05:22)
[2018-10-28 06:44] LABS: Absolute Lymphocytes (CBC) 2.5 K/uL (0.7-4.9); Absolute Monocytes 1.3 K/uL (0.1-1.3); Absolute Neutrophil 6.8 K/uL (1.8-8.0); Basophils % 0.7 % (0-1.3); Eosinophils % 2.7 % (0-4.4); Hematocrit 34.6 % (36.0-45.0); Lymphocytes % 22.7 % (15.3-44.8); MPV 7.9 fL (7.6-11.3); Monocytes % 11.5 % (3.3-12.3); RBC Red Blood Cell Count 3.74 M/uL (3.86-4.86)
[2018-10-28 07:12] LABS: Albumin 2.5 g/dL (3.4-5.0); Bilirubin Direct 0.3 mg/dL (0-0.2); Bilirubin Total 0.7 mg/dL (0.2-1.0); Potassium 3.7 mmol/L (3.5-5.1); Protein, Total 6.1 g/dL (6.4-8.2)
[2018-10-28] MEDS: INSULIN -REGULAR HUMAN 50 UNIT/0.5 ML ML SQ SCH ×4 (07:30→21:00)
--- NOTE | 2018-10-28 07:57 | HP ---
Date of Admission: 10/27/2018 Chief Complaint: Cough, abdominal pain, fever. History Of Present Illness: This is an 83-year-old female patient who has been having cough, congest ion, coughing up some yellowish-colored mucus for last 3 days, started to have right lower abdominal pain and she called ambulance and she was brought into emergency room. Her temperature was 100.4 deg dominik Fahrenheit when ambulance arrived. Denies any vomiting, diarrhea, no bleeding. After she was e valuated in the ER, she was admitted to the hospital under my service with urinary tract infection an d acute appendicitis. Review of Systems: GI: As mentioned above. Respiratory: As mentioned above. All other systems reviewed and negative. Allergies: TO CODEINE, CAUSING HALLUCINATION, NAUSEA, VOMITING. Medications: Amlodipine 5 mg daily, aspirin 81 mg daily, carvedilol 12.5 mg 2 times a day, Cymbalta 30 mg p.o. daily, levothyroxine 75 mcg daily, melatonin 5 mg at bedtime, Metamucil daily, metformin 5 00 mg 2 times a day, olmesartan 40 mg p.o. daily, omeprazole 20 mg p.o. daily, prednisone 5 mg daily, Robaxin 500 mg p.o. 3 times a day as needed, rosuvastatin 5 mg p.o. daily, tramadol 50 mg p.o. daily as needed. Past Surgical History: Bladder suspension, hysterectomy, foot surgery, knee replacement surgery. Past Medical History: Significant for insomnia, hypertension, hypothyroidism, polymyalgia rheumatica , rheumatoid arthritis, mixed hyperlipidemia, diverticulosis, type 2 diabetes mellitus, gastroesophag eal reflux disease, peripheral neuropathy. Family History: Brother with diabetes. Father and sister with lung cancer. Social History: Negative for smoking and alcohol use. Physical Examination: Last Vital Signs: Today temperature 97.2, pulse 86, respiratory rate 16, blood pressure 128/60, heig ht 5 feet 2 inches, weight 160 pounds. General: Awake, alert, oriented, not in distress. HEENT: Head atraumatic, normocephalic. Conjunctivae nonerythematous. Sclerae white. Mouth, no thr ush or edema noted. Ears/Nose, no mass, lesion, discharge noted. Neck: Supple. No JVD, lymph nodes, bruit, thyromegaly noted. Lungs: Bilateral good equal air entry. Clear to auscultation. No rhonchi. No rales. Heart: Normal heart sounds, no murmur or gallop. Abdomen: Soft, bowel sounds normal. No guarding, rigidity, tenderness, mass, hepatosplenomegaly, dis tention, or bruit noted. Extremities: No leg edema. No calf tenderness. Skin: No rash, ulcer, cellulitis. Lymphatics: No lymph node enlargement in neck, supraclavicular, infraclavicular region. Neuro: No focal neurological deficit. Chest: Unremarkable. External Genitalia: Deferred. Rectal: Deferred. Laboratory Data: Chest x-ray, no acute cardiopulmonary changes. EKG; normal sinus rhythm, no acute ST-T changes. CAT scan of abdomen shows acute appendicitis changes and small lesion in the liver whmirna gold measures 10 mm in size, slightly larger than 2017. CAT scan appears to be benign. MRI was recomm ended. I reviewed her 2017 CAT scan report and there was no mention about any lesion in the liver by radiologist. Sodium 134, potassium 3.6, chloride 97, bicarb 28, BUN 12, creatinine 0.96, glucose 12 9. Liver function tests unremarkable. Procalcitonin 0.06. White count 10.7, hemoglobin 11.8, plate lets 341. Urinalysis; 1+ esterase, WBC more than 50, bacteria more than 50, positive nitrite. Impression: 1.Acute appendicitis. 2.Acute bronchitis. 3.Urinary tract infection. 4.Hypertension. 5.Type 2 diabetes mellitus. 6.Mixed hyperlipidemia. 7.Diverticulosis. 8.Gastroesophageal reflux disease. 9.Rheumatoid arthritis. 10.Chronic steroid therapy. 11.Hypothyroidism. 12.Polymyalgia rheumatica. 13.Insomnia. Plan: Admit the patient to hospital for further evaluation and management of this problem. The jaycob ent is appropriate for inpatient and is expected to spend 2 midnights in hospital. We will give empi nelson antibiotic. SCD was ordered for DVT prophylaxis. Home medications will be continued per order. I will see her tomorrow morning for followup and we will continue her home medications per order. D etails and plan of treatment discussed with the patient and her daughter at bedside. Dr. Raphael mathur consulted from General Surgery and he has already evaluated the patient today. NIMA/MODL Voice ID: [id number]
[2018-10-28] MEDS ORDERED: PNEUMOCOCCAL VACCINE 0.5 ML IMVAC ONE (08:00)
[2018-10-28] MEDS: CARVEDILOL 12.5 MG TAB PO SCH ×2 (09:11→21:10)
[2018-10-28] MEDS: AMLODIPINE 5 MG TAB PO SCH (09:12)
[2018-10-28] MEDS: predniSONE 5 MG TAB PO SCH (09:27)
--- NOTE | 2018-10-28 15:57 | CON ---
Date of Consultation: 10/27/2018 This patient was seen in the ER. History Of Present Illness: This is the case of an 83-year-old patient, who comes to the ER, complai elvin of chest congestion. She has been coughing. She is a smoker. She is oxygen dependent. She erickson s been coughing a lot, not feeling good, so she decided to come to the ER. During the workup, the pa gaston also mentioned she has different aches including at the right hip area. This has been there fo r about 5 years. She also have some burning sensation on urination, so that complete workup was done and when finalized the workup, found to have multiple pathologies including the respiratory patholog y, also found to have a UTI. But also in the CAT scan, found to have an appendix that is mildly dila roxanna. The patient has been eating. No nausea. No vomiting. But since we have those findings, a andrés gical consult was obtained. Once again, she states some dysuria, no hematuria, no hematochezia, no m tasha. Allergies: INCLUDE CODEINE; FEVER, NAUSEA AND VOMITING. Medications: Reviewed. Past Surgical History: Bladder suspension, hysterectomy, knee surgery, foot surgery. She claimed in the past she has bowel perforation, but we did not see any surgery for that. She has the family thi nks a colonoscopy done before, they found diverticulum. So the story is difficult to obtain from her or even from her daughter in that aspect. Family History: Diabetes, lung cancer. Social History: The patient smoke, does not drink alcohol. Review of Systems: Ten points otherwise unremarkable. Physical Examination: General: The patient is awake and alert. Coughing, sneezing, nasal cannula in place. The patient f eel congested. HEENT: Pupils anicteric. Neck: Supple. Chest: With congestion, rhonchi, but no wheezes. Abdomen: Soft and depressible. No guarding or rebound over the right inguinal region and also over the proximal thigh area, the patient has some tenderness and that is what she described to the ER serena brownlee. She states she is having the same pain for 5 years, have not changed. She also have a right flank pain, right below the costal margin on the right side. No Rovsing sign. No psoas signs. Pelvic and rectal: Deferred. Extremities: Good capillary refill. Laboratory Data: Blood work shows a WBC count of 10.7, hemoglobin of 11.8 and platelets of 341. INR is 1.03. Chemistry shows sodium is 134, potassium 3.6, bicarb is 28, glucose 129, total bili of 0.6 . UA shows nitrite positive with wbc count more than 50, rbc 10-20, urine bacteria more than 15. Imaging Procedure: CAT scan of the abdomen and pelvis interpreted by Dr. Murray as emphysematous lung bases with a right pleural fluid, hiatal hernia. There is a nodule in the right lobe of the liver w hich is enhanced, compared with 2017. No bowel obstruction. Did have some sigmoid diverticulum. Th e patient has an umbilical hernia. The appendix appeared mildly dilated to 9 mm. Cannot rule out ea rly appendicitis. No evidence of lymphadenopathy. Degenerative changes in L2-L3, L5-S1. Assessment: An 83-year-old patient, who came with just a chest congestion. During the workup, we fo und a urinary tract infection and also we found also CAT scan with the findings of the appendix. The patient has no nausea, no vomiting. No GI symptoms. The patient has pain in that area for the last 5 years and has not changed. I explained to her the differential diagnosis and the possibility of t he diagnostic lap to prove if the appendix is negative or not. Obviously, she is panicking about the idea of going for surgery. She thinks she may ended up on the ventilator since she has already diff iculty breathing and I cannot refute that. She has asked questions if there is any possibility the a ppendix could be negative and for fact yes it is because the CAT scan is not definitive diagnosis. 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 T he pain that she described in the right hip and right thigh region and right inguinal region does not usually go with the clinical findings of acute appendicitis for the last 5 years. But still differe ntial diagnosis is there. We had a lengthy conversation for an hour with her and the patient's famil y. She asked to see if there is any possibility that we can admit her and basically have any other o ption other than surgery. I explained to her that if we do not go for surgery, at least she has to b e in the hospital. We are going to see the abdominal examination and vital signs. We have to treat her with antibiotics for the severe UTIs, may once again contribute for her symptoms and even pyelo. Massive symptoms of the appendicitis but on her case somebody who does not want to go for surgery at least this is the least that we can do and if this is an appendicitis that progressed then she might have at some point understand that and decide once again on the options of surgery or not. She unde rstood that the surgery will be done under anesthetic and under mechanical ventilator and she does no t want to be in one of those. If it comes to the point of rupture, she understands also that may com promise her life, although she has a good point going for surgery also may compromise her life. So s he is going to be admitted tonight and we are going to keep an observation once again tomorrow neelam bansal, see how she clinically she improves, give her antibiotics for urinary tract infections, massive sy mptoms of appendix but at the same time, improve her condition, then she may be treated at the way merrill cortes as long as clinically if it is possible. We will follow the patient with you. MAREN Voice ID: [id number] Report ID: [id number]
[2018-10-28] MEDS ORDERED: VALSARTAN 160 MG TAB PO SCH (21:00)
[2018-10-28] MEDS ORDERED: DULOXETINE 20 MG CAP PO SCH (21:00)
[2018-10-28] MEDS: ROSUVASTATIN 10 MG TAB PO SCH (21:09)
[2018-10-28] MEDS: VALSARTAN 80 MG TAB PO SCH (21:09)
[2018-10-28] MEDS: DULOXETINE 30 MG CAP PO SCH (21:10)
--- NOTE | 2018-10-28 21:29 | PN ---
Diagnoses: Urinary tract infection, cough, and questionable appendicitis. Subjective: The patient is doing well. No complaint. She is talking to me, sitting on the bed, mov ing forward with no pain. The patient's daughter is present too. They discuss with me overnight. S he did okay. Right now, she is eating and right now squatting back and forward in her bed, showing m e that it barely looks okay. No fever. No shortness of breath. No nausea. No vomiting. No diarrh ea. Objective: Chest: Bilateral breath sounds. Abdomen: Soft and depressible. No guarding or rebound. The patient has chronic discomfort of the p elvic region and also right thigh region that she states has for the 5 years. She feels better today . Extremities: Good capillary refill. Laboratory Data: Blood work was reviewed. Once again reviewed with the patient all the findings including the appendix findings on her. I expl ained to her, her case is challenging for many reasons. She has to be on antibiotics for her UTI. S he is on steroids also for her chronic lung disease. That made her evaluation of her appendix diffic ult for us since taking some vital signs and symptoms that we used to recognize progress or deteriora tion. She is still feeling great. She does not want to go for sure at this time, and I see that cli nically improvement. We are going to continue with the antibiotics. I will like by tomorrow morning to do a repeat CT scan to see the previous area of report to see if we see any worsening or improvem ent of that area to help me guide better and to go in for diagnostic lab or just feed her. She under stands. She agreed with the plan, and she is going to wait for tomorrow morning to make any final dictation. We are going to continue with serial abdominal examina tions in the meantime. JEVON/MALGORZATA Voice ID: [id number] Report ID: [id number]
[2018-10-29] MEDS: PIPER/TAZO/NS 3.375gm 3.375 GM/100 ML BAG IVPB SCH ×4 (00:22→23:55)
[2018-10-29] MEDS: PANTOPRAZOLE 40MG TABLET PO SCH (05:04)
[2018-10-29] MEDS: LEVOTHYROXINE SOD 0.075 MG TAB PO SCH (05:04)
[2018-10-29 07:03] LABS: Magnesium 2.2 mg/dL (1.8-2.4)
[2018-10-29 07:06] LABS: Absolute Lymphocytes (CBC) 1.8 K/uL (0.7-4.9); Absolute Monocytes 0.9 K/uL (0.1-1.3); Absolute Neutrophil 5.6 K/uL (1.8-8.0); Basophils % 0.6 % (0-1.3); Eosinophils % 3.6 % (0-4.4); Hematocrit 32.6 % (36.0-45.0); Lymphocytes % 21.1 % (15.3-44.8); MPV 7.9 fL (7.6-11.3); Monocytes % 9.9 % (3.3-12.3); RBC Red Blood Cell Count 3.54 M/uL (3.86-4.86)
[2018-10-29] MEDS: INSULIN -REGULAR HUMAN 50 UNIT/0.5 ML ML SQ SCH ×4 (07:30→20:26)
[2018-10-29] MEDS: NA CHLORIDE 0.9% 1,000 ML IV SCH ×2 (08:00→21:20)
[2018-10-29] MEDS: predniSONE 5 MG TAB PO SCH (09:49)
[2018-10-29] MEDS: AMLODIPINE 5 MG TAB PO SCH (09:49)
[2018-10-29] MEDS: CARVEDILOL 12.5 MG TAB PO SCH ×2 (09:50→20:20)
[2018-10-29] MEDS: MORPHINE 4 MG/ML SYR IV PRN (10:41)
[2018-10-29] MEDS: METHYLPREDNISOLONE 40 MG INJ IV SCH ×3 (13:31→23:54)
[2018-10-29] MEDS: ALBUTEROL 2.5 MG/3 ML NEB SOL NEB SCH ×2 (14:22→20:00)
--- NOTE | 2018-10-29 15:49 | RAD REPORT ---
EXAM DESCRIPTION: RAD - Chest Pa And Lat (2 Views) - 10/29/2018 3:18 pm CLINICAL HISTORY: wheezing Chest pain. COMPARISON: Chest Single View dated 10/27/2018; Chest Single View dated 02/28/2017; Chest Single View d ated 02/21/2017; CHEST SINGLE VIEW dated 05/16/2014; Abdomen Pelvis Wo Contrast dated 10/29/2018 FINDINGS: Chronic elevation right hemidiaphragm is noted. Blunting the left costophrenic angle is pr esent likely a small mild pleural thickening. The lungs are clear of acute infiltrate. Heart is moder ately prominent in size. No displaced fractures.
--- NOTE | 2018-10-29 16:02 | RAD REPORT ---
EXAM DESCRIPTION: CT - Abdomen Pelvis Wo Contrast - 10/29/2018 3:11 pm CLINICAL HISTORY: Abdominal pain. acute appendicitis COMPARISON: Abdomen Pelvis W Contrast dated 10/27/2018 TECHNIQUE: CT imaging of the abdomen and pelvis was performed without contrast. Solid organ and vasc ular assessment is limited due to lack of IV contrast. All CT scans are performed using dose optimization technique as appropriate and may include automated exposure control or mA/KV adjustment according to patient size. FINDINGS: Linear atelectasis is present both lung bases. Mild bilateral pleural thickening.Small hia chloe hernia. Contrast is present from previous CT within the gallbladder. The liver, spleen, pancreas, adrenal glands and kidneys are within normal limits for a limited non-co ntrast examination. No bowel obstruction, free air, free fluid or abscess. Focal fat containing umbilical hernia is prese nt. On today's study the appendix is normal in caliber in acute appendicitis is not suspected. Sigmoi d diverticulosis coli without diverticulitis. Prominent degenerative changes seen at L2-3. Mild anterolisthesis of L5 on S1 with vacuum disc degene ration. IMPRESSION: On today's examination, the appendix has a normal size and appearance. No abnormality se en to indicate appendicitis. A limited non-contrast examination was performed as detailed.
[2018-10-29] MEDS: GUAIFENESIN/DM 5 ML UCUP PO PRN (20:18)
[2018-10-29] MEDS: VALSARTAN 80 MG TAB PO SCH (20:20)
[2018-10-29] MEDS: ROSUVASTATIN 10 MG TAB PO SCH (20:21)
[2018-10-29] MEDS: DULOXETINE 30 MG CAP PO SCH (20:21)
[2018-10-30] MEDS: ALBUTEROL 2.5 MG/3 ML NEB SOL NEB SCH ×4 (01:42→19:29)
[2018-10-30] MEDS: LEVOTHYROXINE SOD 0.075 MG TAB PO SCH (05:17)
[2018-10-30] MEDS: PANTOPRAZOLE 40MG TABLET PO SCH (05:17)
[2018-10-30] MEDS: METHYLPREDNISOLONE 40 MG INJ IV SCH ×3 (05:17→17:28)
[2018-10-30] MEDS: GUAIFENESIN/DM 5 ML UCUP PO PRN ×2 (05:17→20:30)
[2018-10-30] MEDS: INSULIN -REGULAR HUMAN 50 UNIT/0.5 ML ML SQ SCH ×4 (07:30→20:31)
[2018-10-30] MEDS: predniSONE 5 MG TAB PO SCH (09:25)
[2018-10-30] MEDS: CARVEDILOL 12.5 MG TAB PO SCH ×2 (09:26→20:33)
[2018-10-30] MEDS: AMLODIPINE 5 MG TAB PO SCH (09:26)
[2018-10-30] MEDS: PIPER/TAZO/NS 3.375gm 3.375 GM/100 ML BAG IVPB SCH ×2 (09:27→17:28)
[2018-10-30] MEDS: NA CHLORIDE 0.9% 1,000 ML IV SCH ×2 (10:06→12:17)
--- NOTE | 2018-10-30 15:56 | PN ---
Date of Progress Note: 10/28/2018 Subjective: The patient was seen in the morning for followup. No new complaints or problems reporte d, except continues to have some abdominal pain in the right lower quadrant, which is better than yes terday. Still continues to have cough, congestion. Objective: Vital Signs: Reviewed. HEENT: Unremarkable. Lungs: Bilateral good equal air entry. Presence of some wheezing in lower lung bases. Heart: Sounds normal. Abdomen: Soft. Bowel sounds normal. No guarding, rigidity, tenderness, distention. Extremities: No leg edema. Laboratory Data: White count 11, hemoglobin 11.8, platelets 281. Sodium 137, potassium 3.7, chlorid e 100, bicarb 28, BUN 14, creatinine 1.01, glucose 115. Liver function tests unremarkable. Impression: 1.Acute appendicitis. 2.Acute bronchitis. 3.Urinary tract infection. 4.Hypertension. 5.Diabetes mellitus. Plan: Continue current medications. Continue current antibiotics, IV fluid. Home medications will be continued per order. Dr. Lim wants the patient to stay n.p.o. Her abdominal pain has improv ed, although it has not completely resolved, since yesterday, but it is better, and Dr. Lim is p portia to do another CT scan tomorrow, then he will decide if the patient is improving with conservative treatment or not. Ambulation was e ncouraged. NIMA/MODL Voice ID: [id number] Report ID: [id number]
--- NOTE | 2018-10-30 16:11 | PN ---
Date of Progress Note: 10/29/2018 Subjective: The patient seen for followup. Her abdominal pain is better, but has lot of cough and c hest congestion problem. Objective: Vital Signs: Reviewed. HEENT: Unremarkable. Lungs: Clear to auscultation except some wheezing. Not in any distress. Heart: Sounds normal. Abdomen: Soft. Bowel sounds normal. No guarding, rigidity, tenderness, or distention. Extremities: No leg edema. Laboratory Data: White count 8.7, hemoglobin 11.1, platelets 308. Sodium 138, potassium 4, chloride 104, bicarb 28, BUN 17, creatinine 0.98, glucose 85, magnesium 2.2. Chest x-ray done today shows no evidence of pneumonia. CAT scan of abdomen without contrast shows no evidence of any appendicitis. Impression: 1.Acute appendicitis, improved with conservative treatment. 2.Acute bronchitis. 3.Urinary tract infection, organism Escherichia coli. 4.Hypertension. 5.Type 2 diabetes mellitus. Plan: We will go ahead and start the patient on clear liquid diet since her appendicitis finding has resolved on CAT scan. Dr. Lim is not planning any surgical intervention, as the patient is imp roving with conservative treatment. We will continue her current antibiotics. We will add nebulizer treatment, IV steroids, and start her on clear liquid diet, advance as tolerated. We will see her tomorrow for followup. NIMA/MODL Voice ID: [id number] Report ID: [id number]
--- NOTE | 2018-10-30 16:17 | PN ---
Date of Progress Note: 10/30/2018 Subjective: The patient was seen this morning for followup. Her was with her at bedside. S he is feeling much better. Her cough, congestion are much better. No more wheezing. Abdominal pain has resolved. She is tolerating diet as ordered. She denies any nausea, vomiting. Objective: Vital Signs: Reviewed. HEENT: Unremarkable. Lungs: Clear to auscultation. No rhonchi or rales. Heart: Sounds normal. Abdomen: Soft bowel sounds normal. No guarding, rigidity, tenderness distention. Extremities: No leg edema. Impression: 1.Acute appendicitis. 2.Acute bronchitis. 3.Urinary tract infection. 4.Hypertension. 5.Type 2 diabetes mellitus. 6.Chronic steroid therapy. Plan: The patient has responded well to nebulizer treatment and IV steroid, which was started yester day. She feels a lot better. We will continue current medications, IV antibiotics, steroids, etc. We will continue to advance her diet as she tolerates. Stop her oral prednisone since she is on IV s teroid. I will see her tomorrow for followup. Possible discharge to go home tomorrow depending on h er condition. Details were discussed with the patient. NIMA/MODL Voice ID: [id number] Report ID: [id number]
[2018-10-30] MEDS: ROSUVASTATIN 10 MG TAB PO SCH (20:32)
[2018-10-30] MEDS: VALSARTAN 80 MG TAB PO SCH (20:32)
[2018-10-30] MEDS: DULOXETINE 30 MG CAP PO SCH (20:32)
--- NOTE | 2018-10-30 23:07 | PN ---
Date of Progress Note: 10/30/2018 Diagnoses: Chronic abdominal pain, urinary tract infection, lung disease. Subjective: The patient is doing better. Tolerating diet. No shortness of breath. No chest pain. No melena. No hematochezia. Objective: Abdomen: Soft and depressible. No guarding, rebound. No peritoneal signs. Extremities: Good capillary refill. Laboratory Data: Blood work shows WBC count of 48.7 from yesterday. CAT scan discussed with the pat ient with no evidence of appendicitis. Assessment: An 83-year-old patient, comes to us with a urinary tract infection, questionable appendi citis at the beginning, but right now, CAT scan shows no proof of appendicitis. Has no symptoms neit her and the symptoms before were not correlating with the clinical picture of appendicitis anyway. F rom a surgical standpoint, we can advance diet per UTI. Follow in my office in 1 week when she gets discharged. JEVON/MALGORZATA Voice ID: [id number] Report ID: [id number]
[2018-10-31] MEDS: PIPER/TAZO/NS 3.375gm 3.375 GM/100 ML BAG IVPB SCH ×2 (00:08→08:52)
[2018-10-31] MEDS: METHYLPREDNISOLONE 40 MG INJ IV SCH ×2 (00:08→05:26)
[2018-10-31] MEDS: ALBUTEROL 2.5 MG/3 ML NEB SOL NEB SCH ×2 (02:17→07:27)
[2018-10-31] MEDS: LEVOTHYROXINE SOD 0.075 MG TAB PO SCH (05:26)
[2018-10-31] MEDS: PANTOPRAZOLE 40MG TABLET PO SCH (05:26)
[2018-10-31] MEDS: NA CHLORIDE 0.9% 1,000 ML IV SCH (07:00)
[2018-10-31] MEDS: AMLODIPINE 5 MG TAB PO SCH (08:52)
[2018-10-31] MEDS: CARVEDILOL 12.5 MG TAB PO SCH (08:52)
[2018-10-31] MEDS: INSULIN -REGULAR HUMAN 50 UNIT/0.5 ML ML SQ SCH (08:52)
[2018-10-31 09:16] VITALS: O2SAT 92
[2018-10-31 09:39] VITALS: BP 109/68; TEMP 97.7
[2018-10-31] MEDS ORDERED: ALBUTEROL INHALER 60 PUFF/8 GM IH SCH (11:00)
--- NOTE | 2018-11-01 09:49 | DS ---
Date of Discharge: 10/31/2018 Disposition: Discharged to go home. Physical Examination: HEENT: Unremarkable. Lungs: Clear to auscultation. No rhonchi. No rales. Heart: Heart sounds normal. Abdomen: Soft. Bowel sounds normal. No guarding, rigidity, tenderness, or distention. Extremities: No leg edema. Laboratory Data: Labs done during this hospitalization, upon admission white count was 10.7, hemoglo bin 11.8, and platelets 341. Last white count on October 29, 2018 was 8.7, hemoglobin 11.1, and plat elets 308. Last chemistry from October 29, 2018, sodium 138, potassium 4, chloride 104, bicarb 28, B UN 17, creatinine 0.98, and glucose 85. Urine culture grew E coli. Hospital Course: An 83-year-old female patient came into emergency room with cough, congestion, abdo oliva pain in the right lower quadrant, and fever. Please see dictated H and P for more information. The patient was evaluated in the ER. She had a repeat chest x-ray, CAT scan of abdomen and pelvis, and routine blood work. The patient was admitted to the hospital with acute appendicitis, acute bro nchitis, and urinary tract infection. Dr. Lim from General Surgery was consulted and he did not suggest any surgical intervention. On the CAT scan, it was reported as early changes of appendiciti s. No complications. The patient was kept n.p.o. IV fluid and IV antibiotics were started. Overall , her condition has improved. Her abdominal pain has improved. Cough and congestion are better with the treatment provided, which includes nebulized treatment and IV steroids. At home, the patient re ports taking between 7-8 mg of prednisone every day. This is being managed by her enterprise security architect for polymyalgia rheumatica and rheumatoid arthritis. We did repeat CAT scan 2 days after admission and did show that there were no more changes of appendicitis. Changes noted upon admission had resolved on this repeat CAT scan. Initial CAT scan had shown a lesion in the liver measuring 10 mm in size, s lightly larger than 2017 and radiologist thinks that it is appearing to be a benign lesion. MRI was recommended, which we will pursue on an outpatient basis, but going back to 2017. CAT scan, radiologi st had not reported any abnormality of the liver on that particular CT scan. All these details were discussed with the patient and the patient's son, who was there today with him. Overall, the patient is doing better. Her urinalysis was abnormal, consistent with urinary tract infection when she came in. Urine culture grew E coli that is sensitive to Zosyn that she is currently on and it is sensiti ve to Augmentin that we are planning to send her home with. Overall, her condition has improved. Damaris donald is ambulating well, tolerating diet well. Chest x-ray has not shown any pneumonia when she came in and repeat chest x-ray also did not show any pneumonia. Final Diagnoses: 1.Acute appendicitis. 2.Acute bronchitis. 3.Urinary tract infection. 4.Hypertension. 5.Type 2 diabetes mellitus. 6.Mixed hyperlipidemia. 7.Anemia. 8.Diverticulosis. 9.Gastroesophageal reflux disease. 10.Rheumatoid arthritis. 11.Chronic steroid therapy. 12.Hypothyroidism. 13.Polymyalgia rheumatica. 14.Insomnia. Discharge Medications And Instructions: 1.Continue all prior home medication except change prednisone 10 mg tablet, the patient to take 2 ta blets daily for 4 days, then 1-1/2 tablet daily for 4 days, then 1 tablet daily for 4 days, then just regular dose and start her usual maintenance dose of 7-8 mg daily. 2.Follow up with Dr. Lim in 1 week and follow up at my office per her scheduled appointment. 3.Take Augmentin 875 mg twice a day with food for 1 week and use albuterol inhaler 2 puffs 4 times a day. NIMA/MODL Voice ID: [id number] Report ID: [id number]
== END 2018-10-31 11:32 | disposition home or self-care (01) | DRG 394 ==
LOC: ER 09:53 → ERHOLD 15:13 → 2ND 17:02
PROVIDERS: ADMIT Internal Medicine; ATTEND Internal Medicine
DX: K37 Unspecified appendicitis (principal); N39.0 Urinary tract infection, site not specified; Z88.5 Allergy status to narcotic agent; G47.00 Insomnia, unspecified; E03.9 Hypothyroidism, unspecified; M35.3 Polymyalgia rheumatica; M06.9 Rheumatoid arthritis, unspecified; E78.2 Mixed hyperlipidemia; K57.90 Diverticulosis of intestine, part unspecified, without perforation or abscess without bleeding; E11.51 Type 2 diabetes mellitus with diabetic peripheral angiopathy without gangrene; K21.9 Gastro-esophageal reflux disease without esophagitis; J20.9 Acute bronchitis, unspecified; I10 Essential (primary) hypertension; Z99.81 Dependence on supplemental oxygen; K44.9 Diaphragmatic hernia without obstruction or gangrene; B96.20 Unspecified Escherichia coli [E. coli] as the cause of diseases classified elsewhere; K76.9 Liver disease, unspecified; D64.9 Anemia, unspecified
CPT/HCPCS: 36415; 71045; 71046; 74176; 74177; 80048; 80076; 81003; 81015; 82962; 83605; 83690; 83735; 83880; 84145; 84484; 85025; 85610; 87070; 87077; 87086; 87088; 87186; 87205; 87804; 90670; 93005; 94640; 96365; 96366; 96375; 99285; G0009; J0696; J2405; J2543; J2920; J3010; J7030; J7512; Q9967

== ENCOUNTER 2019-06-21 17:21 | Emergency (ER) | payer OTHER ==
--- OUTSIDE RECORDS SUMMARY | 2019-06-21 17:23 | XMS REPORT | Clinical Summary ---
:1935 Author Organization [facility] Address [address] [place] [address] Care Team Providers Name Role Phone Trav Abernathy MD Primary Care Provider Allergies Active Allergy Reactions Severity Noted Date Comments Codeine GI Intolerance 03/07/2017 Medications Medication Sig Dispensed Refills Start End Date Status Date multivitamin with Take 1 tablet by 0 Active minerals tablet mouth daily. RESTASIS 0.05 % 6 Active ophthalmic 6 emulsion carvedilol TK 1 T PO BID 3 Active (COREG) 6.25 MG 7 tablet DULoxetine TK 1 C PO QD 0 Active (CYMBALTA) 60 MG 7 capsule rosuvastatin Take 5 mg by 0 Active (CRESTOR) 5 MG mouth daily. tablet golimumab Infuse into a 0 Active (SIMPONI ARIA IV) venous catheter. Every 8 weeks predniSONE Take 5 mg by 0 Active (DELTASONE) 5 mg mouth daily. tablet metFORMIN Take 1,000 mg by 0 Active (GLUCOPHAGE) mouth 2 (two) 1,000 mg tablet times a day with meals. amLODIPine Take 5 mg by 0 Active (NORVASC) 5 mg mouth daily. tablet olmesartan Take 40 mg by 0 Active (BENICAR) 40 MG mouth daily. tablet levothyroxine Take 75 mcg by 0 Active (SYNTHROID, mouth daily. LEVOXYL) 75 mcg tablet naproxen sodium Take 220 mg by 0 Active (ALEVE) 220 MG mouth every 12 tablet (twelve) hours as needed for mild pain. omeprazole Take 20 mg by 0 02/16/20 Discontinued (PriLOSEC) 20 MG mouth daily. 19 capsule ELIQUIS 5 mg TK 1 T PO BID 3 02/16/20 Discontinued tablet 7 19 metFORMIN TK 1 T PO BID 3 02/16/20 Discontinued (GLUCOPHAGE) 500 WITH THE MORNING 7 19 mg tablet AND ALEX MEAL VOLTAREN 1 % gel Apply 2-4 grams 300 g 1 04/12/20 Discontinued four times a day 7 19 as needed for pain XELJANZ XR 11 mg Take 1 tablet by 30 tablet 1 02/18/20 Discontinued tablet extended mouth every day 7 19 (Therapy release 24 hr as directed by completed) physician. valsartan TK 1 T PO QD. 6 02/16/20 Discontinued (DIOVAN) 80 MG STOP VALSARTAN 7 (Alternate tablet 40MG therapy) levothyroxine TK 1 T PO QD. 3 02/16/20 Discontinued (SYNTHROID, STOP 8 LEVOXYL) 75 mcg LEVOTHYROXINE tablet 88MCG pregabalin Take 50 mg by 0 02/16/20 Discontinued (LYRICA) 50 MG mouth daily. 19 capsule aspirin (ECOTRIN) Take 81 mg by 0 02/16/20 Discontinued 81 MG enteric mouth daily. 19 coated tablet predniSONE Take 1 tablet (5 90 tablet 0 01/27/20 (DELTASONE) 5 mg mg total) by 8 19 tablet mouth daily. predniSONE Take 1 tablet (1 90 tablet 0 01/27/20 (DELTASONE) 1 mg mg total) by 8 19 tablet mouth daily. Hospital, Clinic, or Ordered Dose Route Frequency Start Date End Date Status Other Facility Administered Medication methylPREDNISolone 40 mg IM once 07/20/2017 Discontinued acetate (DEPO-MEDROL) 9 injection 40 mgIndications: Effusion of left knee [...] Encounters Date Type Specialty Care Team Description 04/14/2019 Anesthesia Event General Surgery Danette Ortez MD Cheema, Ivelisse, FNP 04/14/2019 Surgery [facility] Surgery [place], INTRA-ARTICULAR [facility] INJECTION TARGETING THE MD Shahzad RIGHT HIP OR OTHER INDICATED PROCEDURES 04/14/2019 [facility] General Surgery [place], Encounter Sanford Pike MD 03/18/2019 Hospital Radiology [place], Right shoulder pain, Encounter [facility] Dan unspecified chronicity MD Shahzad 03/18/2019 Hospital Radiology [place], Arthralgia of hip, Encounter [facility] Dan unspecified laterality MD Shahzad 03/18/2019 Transcribe Orders Access [place], Right shoulder pain, unspecified chronicity (Primary Dx); [facility] Dan Arthralgia of hip, unspecified laterality MD Shahzad 02/17/2019 Surgery General Surgery [place], LUMBAR TRASNFORAMINAL [facility] Dan EPIDURAL STEROID MD Shahzad INJECTION TARGETING THE BILATERAL L4-L5 SEGMENTS OR OTHER INDICATED PROCEDURES 02/17/2019 Anesthesia Event General Surgery Danette Ortez MD Cheema, Ivelisse, 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 02/17/2019 [facility] Surgery [place], Encounter Sanford Pike MD 02/11/2019 Office Visit Sonny Koch Other spondylosis with radiculopathy, lumbar region (Primary Dx); Surgery MD Maria Esther Spondylolisthesis at L4-L5 level; Spondylolisthesis at L5-S1 level 02/03/2019 Hospital Radiology [place], Low back pain, Encounter [facility] Dan unspecified back pain MD Shahzad laterality, unspecified chronicity, with sciatica presence unspecified 01/24/2019 Transcribe Orders Access [place], Low back pain, San[facility] Dan unspecified back pain MD Shahzad laterality, unspecified chronicity, with sciatica presence unspecified (Primary Dx) 12/13/2018 Office Visit Sonny Koch Other spondylosis with radiculopathy, lumbar region (Primary Dx); Surgery MD Maria Esther Spondylolisthesis at L4-L5 level; Spondylolisthesis at L5-S1 level 08/17/2018 Office Visit [facility] of right Surgery MD Bee patella (Primary Dx) after 06/20/2018 Family History Medical History Relation Name Comments Diabetes Brother Lung cancer Father Relation Name Status Comments Brother Father lung cancer Mother (Age 80) diabetes Social History Tobacco Use Types Packs/Day Years Used Date Never Smoker Smokeless Tobacco: Never Used Alcohol Use Drinks/Week oz/Week Comments Yes 1 Glasses of wine 1.0 once a week Sex Assigned at Date Recorded Not on file Job Start Date Occupation Industry Not on file Not on file Not on file Travel History Travel Start Travel End No recent travel history available. Last Filed Vital Signs Vital Sign Reading Time Taken Comments Blood Pressure 121/60 04/14/2019 4:10 PM CDT Pulse 70 04/14/2019 4:10 PM CDT Temperature 36.6 C (97.8 F) 04/14/2019 3:31 PM CDT Respiratory Rate 16 04/14/2019 4:10 PM CDT Oxygen Saturation 96% 04/14/2019 4:10 PM CDT Inhaled Oxygen Concentration - - Weight 68 kg (150 lb) 04/14/2019 1:18 PM CDT Height 154.9 cm (5' 1") 04/14/2019 1:18 PM CDT Body Mass Index 28.34 04/14/2019 1:18 PM CDT Plan of Treatment Health Maintenance Due Date Last Done Comments SHINGLES VACCINES (#1) 1983 65+ PNEUMOCOCCAL VACCINE (1 of 2 - PCV13) 1998 INFLUENZA VACCINE 05/19/2019 Implants Implanted Type Area General Surgery Physician Assistant Device Identifier Shelf Expiration Model / Serial Date / Lot Plate Description:Right ankle plate as per pt Procedures Procedure Name Priority Date/Time Associated Diagnosis Comments OR FL < 1 HOUR Routine 04/14/2019 3:30 PM Results for this CDT procedure are in the results section. POC GLUCOSE Routine 04/14/2019 1:32 PM Results for this CDT procedure are in the results section. XR SHOULDER 2+ VW Routine 03/18/2019 3:53 PM Right shoulder pain, Results for this RIGHT CDT unspecified procedure are in chronicity the results section. XR HIP 2-3 VIEWS Routine 03/18/2019 3:52 PM Arthralgia of hip, Results for this RIGHT CDT unspecified procedure are in laterality the results section. OR FL < 1 HOUR Routine 02/17/2019 1:30 PM Results for this CDT procedure are in the results section. POC GLUCOSE Routine 02/17/2019 12:09 PM Results for this CDT procedure are in the results section. ECG 12-LEAD STAT 02/17/2019 12:05 PM Results for this CDT procedure are in the results section. MRI LUMBAR SPINE WO Routine 02/03/2019 2:02 PM Low back pain, Results for this CONTRAST CDT unspecified back procedure are in pain laterality, the results unspecified section. 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 chronicity, with sciatica presence unspecified after 06/20/2018 Results OR FL < 1 Hour (04/14/2019 3:30 PM CDT)Only the most recent of2 resultswithin the time period is included. Specimen Narrative Performed At EXAMINATION:OR FL 1 HOUR [facility] CLINICAL HISTORY: IMPRESSION: Fluoroscopy was provided. No radiologist present.Please see procedure report for discussion of procedure, findings and fluoroscopic time. [facility]-[id number] Procedure Note Hm Interface, Radiology Results Incoming - 04/14/2019 4:06 PM CDT EXAMINATION: OR FL 1 HOUR CLINICAL HISTORY: IMPRESSION: Fluoroscopy was provided. No radiologist present. Please see procedure report for discussion of procedure, findings and fluoroscopic time. [facility]-[id number] Performing Organization Address City/[facility]/Zipcode Phone Number [facility] [address] [place] [address] POC glucose (04/14/2019 1:32 PM CDT)Only the most recent of2 resultswithin the time period is included. POC glucose 116 (H) 65 - 99 mg/dL KADIE REYES Comment: [facility] Meter ID: [id number] Associate Product Manager: Mukund Avis Specimen Performing Organization Address City/[facility]/Zipcode Phone Number [facility] DEPARTMENT OF PATHOLOGY [address] [facility] [place] [address] AND GENOMIC MEDICINE ENGLE ERIC [place] [address] [facility] [place] [address] HOSPITAL XR Shoulder 2+ Vw Right (03/18/2019 3:53 PM CDT) Specimen Narrative Performed At EXAMINATION:XR SHOULDER 2VW RIGHT [facility] CLINICAL HISTORY:M25.511 Pain in right shoulder, Shoulder Pain COMPARISON:None. 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 No acute osseous abnormality or malalignment. [id number] Procedure Note Interface, Radiology Results Incoming - 03/18/2019 4:19 PM CDT EXAMINATION: XR SHOULDER 2 VW RIGHT CLINICAL HISTORY: M25.511 Pain in right shoulder, Shoulder Pain COMPARISON: None. 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 No acute osseous abnormality or malalignment. [id number] Performing Organization Address [facility] Phone Number [facility] [address] [place] [address] XR Hip 2-3 View Right (03/18/2019 3:52 PM CDT) Specimen Narrative Performed At EXAMINATION:XR HIP 2-3 VIEWS RIGHT [facility] CLINICAL HISTORY:M25.559 Pain in unspecified hip, Hip Pain COMPARISON:None available at this time. IMPRESSION: Moderately severe osteoarthritis of the right hip joint. There is narrowing of the superomedial joint space with subchondral sclerosis and cystic change. Small osteophytes are also seen. No fracture, malalignment, or osseous destructive lesion identified. Bones appear demineralized. Procedure Note Interface, Radiology Results Incoming - 03/18/2019 4:26 PM CDT EXAMINATION: XR HIP 2-3 VIEWS RIGHT CLINICAL HISTORY: M25.559 Pain in unspecified hip, Hip Pain COMPARISON: None available at this time. IMPRESSION: Moderately severe osteoarthritis of the right hip joint. There is narrowing of the superomedial joint space with subchondral sclerosis and cystic change. Small osteophytes are also seen. No fracture, malalignment, or osseous destructive lesion identified. Bones appear demineralized. Performing Organization Address [facility] Phone Number [facility] [address] [place] [address] ECG 12 lead (02/17/2019 12:05 PM CDT) Ventricular rate 68 [facility] Atrial rate 68 [facility] MA interval 176 [facility] QRSD interval 82 [facility] QT interval 392 [facility] QTC interval 416 [facility] P axis 1 18 [facility] QRS axis 1 -27 [facility] T wave axis 3 [facility] EKG impression Normal sinus [facility] rhythm-Normal ECG-In automated comparison with ECG of 15-JAN-2017 16:10,-No significant change was found- Specimen Narrative Performed At Performing Organization Address City/State/Zipcode Phone Number [facility] [address] [place] [address] MRI Lumbar Spine Wo Contrast (02/03/2019 2:02 PM CDT) Specimen Narrative Performed At EXAMINATION: MRI LUMBAR SPINE WO CONTRAST HM [facility] CLINICAL HISTORY: M54.5 Low back pain, Low Back Pain COMPARISON:MRI lumbar spine 03/11/2017 TECHNIQUE: Multiplanar multisequence nonenhanced MRI examination was performed of the Lumbar spine. FINDINGS: Transitional lumbosacral anatomy with rudimentary S1-S2 disc. Grade 1 anterolisthesis L5 on S1 measuring approximately 6 mm, unchanged. Grade 1 anterolisthesis L4 on L5 measuring 3 mm. Severe intervertebral disc space narrowing at L2-L3 with endplate irregularity and Schmorl's formation. Minimal retrolisthesis of L2 on L3 and L3 on L4. Conus medullaris terminates at L1. No suspicious osseous lesion or degenerative endplate edema. Axial images through the disc spaces demonstrate the following: L1-L2: No significant posterior disc disease, spinal canal or neural foraminal stenosis. L2-L3: Stable compared with 03/11/2017. Diffuse posterior disc bulge without significant spinal canal stenosis. Mild bilateral facet hypertrophy and mild bilateral neural foraminal narrowing. L3-L4: Stable compared with 03/11/2017. Mild posterior disc bulge and mild bilateral facet hypertrophy without spinal canal stenosis. Patent bilateral neural foramina. Small suspected bilateral facet effusions. L4-L5: Stable compared with 03/11/2017. Uncovering of the disc with right subarticular zone/ foraminal disc herniation. Severe bilateral facet arthrosis with moderate facet effusions. Mild central canal narrowing and mild to moderate lateral recess stenosis. L5-S1: Uncovering of the disc with severe bilateral facet arthrosis, ligamentum flavum thickening, and pseudodisc bulge/herniation extending into the right neural foramen. Correlate for laminotomy bonilla es. No significant spinal canal stenosis. Severe bilateral neural foraminal narrowing, progressed on the left compared with 03/11. IMPRESSION: Multilevel degenerative changes of the lumbar spine which appear most pronounced at L5-S1 where there is grade 1 anterolisthesis, degenerative disc disease, and severe bilateral facet arthrosis with severe bilateral neural foraminal narrowing which appears progressed on the left compared with 03/11/2017. Additional degenerative changes are detailed above. [id number] Procedure Note Hm Interface, Radiology Results Incoming - 02/03/2019 2:53 PM CDT EXAMINATION: MRI LUMBAR SPINE WO CONTRAST CLINICAL HISTORY: M54.5 Low back pain, Low Back Pain COMPARISON: MRI lumbar spine 03/11/2017 TECHNIQUE: Multiplanar multisequence nonenhanced MRI examination was performed of the Lumbar spine. FINDINGS: Transitional lumbosacral anatomy with rudimentary S1-S2 disc. Grade 1 anterolisthesis L5 on S1 measuring approximately 6 mm, unchanged. Grade 1 anterolisthesis L4 on L5 measuring 3 mm. Severe intervertebral disc space narrowing at L2-L3 with endplate irregularity and Schmorl's formation. Minimal retrolisthesis of L2 on L3 and L3 on L4. Conus medullaris terminates at L1. No suspicious osseous lesion or degenerative endplate edema. Axial images through the disc spaces demonstrate the following: L1-L2: No significant posterior disc disease, spinal canal or neural foraminal stenosis. L2-L3: Stable compared with 03/11/2017. Diffuse posterior disc bulge without significant spinal canal stenosis. Mild bilateral facet hypertrophy and mild bilateral neural foraminal narrowing. L3-L4: Stable compared with 03/11/2017. Mild posterior disc bulge and mild bilateral facet hypertrophy without spinal canal stenosis. Patent bilateral neural foramina. Small suspected bilateral facet effusions. L4-L5: Stable compared with 03/11/2017. Uncovering of the disc with right subarticular zone/ foraminal disc herniation. Severe bilateral facet arthrosis with moderate facet effusions. Mild central canal narrowing and mild to moderate lateral recess stenosis. L5-S1: Uncovering of the disc with severe bilateral facet arthrosis, ligamentum flavum thickening, and pseudodisc bulge/herniation extending into the right neural foramen. Correlate for laminotomy changes. No significant spinal canal stenosis. Severe bilateral neural foraminal narrowing, progressed on the left compared with 03/11. IMPRESSION: Multilevel degenerative changes of the lumbar spine which appear most pronounced at L5-S1 where there is grade 1 anterolisthesis, degenerative disc disease, and severe bilateral facet arthrosis with severe bilateral neural foraminal narrowing which appears progressed on the left compared with 03/11/2017. Additional degenerative changes are detailed above. [id number] Performing Organization Address [facility] Phone Number [facility] [address] [place] [address] XR Lumbar Spine Complete W Flex and Ext (12/13/2018 10:55 AM JUNIOR ACCOUNTANT) Specimen Narrative Performed At 7 views of the lumbar spine are reviewed.Patient stands with a level [facility] pelvis.Coronal balance is satisfactory.There is remarkable facet joint osteoarthritis at L4-5 and L5-S1 bilaterally.There is marginal osteophyte formation in the lumbar spine.Lateral view demonstrates satisfactory sagittal balance with a grade 2 lumbar spondylolisthesis at L5-S1 and a grade 1 spondylolisthesis at L4-L5.There is disc space collapse with endplate sclerosis at L2-L3.The spondylolisthesis at L5-S1 increases with forward flexion and reduces somewhat on extension.The L4-5 spondylolisthesis remains relatively stable.Oblique images demonstrate bilateral facet joint osteoarthrosis at L4-5 and L5-S1 most severely.There is facet joint osteoarthritis present at the other levels as well only not as severe. 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
--- NOTE | 2019-06-21 18:01 | RAD REPORT ---
EXAM DESCRIPTION: CT - [id number] - 06/21/2019 5:42 pm CLINICAL HISTORY: Fall, head and neck injury, loss of consciousness COMPARISON: None. TECHNIQUE: Axial 5 mm thick images of the head were obtained. Axial 2 mm thick images of the cervic al spine were obtained with sagittal and coronal reconstruction images generated and reviewed. All CT scans are performed using dose optimization technique as appropriate and may include automated exposure control or mA/KV adjustment according to patient size. FINDINGS: No intracranial hemorrhage, mass, edema or acute intracranial finding. No suspicion for acute infarct ion. Atrophy and chronic ischemic changes are present mild for age. Ventricles are in proportion to a ny volume loss. Mastoid air cells and paranasal sinuses are clear. No globe or orbit abnormality seen . Cervical bodies are normal in height. Slight retrolisthesis of C3 on C4 noted as well as C5 on C6. C3 -4, C5-6 and C6-7 significant disc space narrowing. Facet joint degenerative changes are mild. No sig nificant foraminal stenosis. No other disc space narrowing. No fracture or acute finding in the cervi eduar body. There is slight wedging of the T1 body. An acute fracture along the superior endplate is no t discernible. Posterior wall height is preserved. No CT finding to elevate likelihood of acute compr ession. T2 is normal in height. Central canal detail is inherently limited. No paraspinal mass or hematoma. IMPRESSION: Negative CT head examination for acute or significant finding. Atrophy and chronic ische balbir changes are mild for age. Cervical spine degenerative changes are present as detailed. No acute finding of the cervical spine. Slight wedging of the T1 body is seen without an acute fracture plane identifiable.
[2019-06-21 18:21] LABS: Urine Blood NEGATIVE (NEG); Urine Glucose NEGATIVE (NEG); Urine Protein 1+ (NEG); Urine Specific Gravity >1.030 (1.005-1.030)
[2019-06-21] MEDS ORDERED: DERMABOND SKIN ADHESIVE TOP ONE (19:27)
--- NOTE | 2019-06-21 19:29 | ER ---
Nurse's Notes [facility] Name: Caridad Chadwick Age: 83 yrs Sex: Female : 1935 Arrival Date: 06/21/2019 Time: 17:22 Bed 6 Private MD: Henry Abernathy C Diagnosis: Multiple skin tears on left arm;Skin tear left middle finger;Cervicalgia;Fall from standing height;Head injury, possible concussion Presentation: 06/21 17:22 Presenting complaint: Tripped while ambulating with walker, landed supine on ground. hb Positive LOC for approx 3 mins per . Contusion to back of head, skin near to left forearm noted. Pt c/o headache and neck pain 05/28. Care prior to arrival: None. Mechanism of Injury: Fall from standing position. Trauma event details: Injury occurred in the [facility], Injury occurred: at home. Injury occurred: June 21, 2019. 17:22 Acuity: ZOIE 2 hb 17:22 Method Of Arrival: Wheelchair hb 17:35 Transition of care: patient was not received from another setting of care. Onset of hb symptoms was June 21, 2019. Risk Assessment: Do you want to hurt yourself or someone else? Patient reports no desire to harm self or others. Initial Sepsis Screen: Does the patient meet any 2 criteria? No. Patient's initial sepsis screen is negative. Does the patient have a suspected source of infection? No. Patient's initial sepsis screen is negative. Triage Assessment: 17:35 General: Appears in no apparent distress. uncomfortable, Behavior is cooperative, hb appropriate for age, anxious. Pain: Complains of pain in left arm, head, legs. Neuro: Level of Consciousness is awake, alert, obeys commands, Oriented to person, place, time, situation. Cardiovascular: Patient's skin is warm and dry. Respiratory: Airway is patent Respiratory effort is even, unlabored, Respiratory pattern is regular, symmetrical. Derm: Skin is pink, warm \T\ dry. Injury Description: Skin tears noted to left hand and forearm. Trauma Activation: Alert Physician: ED Physician; Name: ; Notified At: ; Arrived At: Physician: General Surgeon; Name: ; Notified At: ; Arrived At: Physician: Radiology; Name: ; Notified At: ; Arrived At: Physician: Respiratory; Name: ; Notified At: ; Arrived At: Physician: Lab; Name: ; Notified At: ; Arrived At: Historical: - Allergies: 17:28 Codeine; sv - Home Meds: 17:40 prednisone 5 mg Oral tab once daily [Active]; carvedilol 12.5 mg Oral tab [Active]; hb Synthroid 75 mcg Oral tab [Active]; metformin 500 mg Oral Tb24 1 tab 2 times per day [Active]; omeprazole 20 mg Oral cpDR [Active]; amlodipine 5 mg tab [Active]; duloxetine 30 mg Oral cpDR 1 cap once daily [Active]; rosuvastatin 5 mg Oral tab [Active]; olmesartan oral oral [Active]; Simponi subcutaneous subcutaneous [Active]; - PMHx: 17:28 Diabetes - NIDDM; Diverticulitis; sv 17:30 Hypertension; GERD; Hypothyroidism; sv 17:40 Rheumatoid Arthritis; hb - PSHx: 17:30 left foot; sv - Immunization history: Last tetanus immunization: < 10 years ago. - Social history:: Smoking status: Patient/guardian denies using tobacco. - Ebola Screening: : No symptoms or risks identified at this time. Screenin:34 Abuse screen: Denies threats or abuse. Denies injuries from another. Tuberculosis hb screening: No symptoms or risk factors identified. 17:41 Nutritional screening: No deficits noted. Fall Risk Fall in past 12 months (25 points). hb Total Davidson Fall Scale indicates No Risk (0-24 pts). Primary Survey: 17:24 NO uncontrolled hemorrhage observed. A: The patient is alert. Airway: patent. hb Breathing/Chest: Respiratory pattern: regular, Respiratory effort: spontaneous, unlabored, Chest inspection: symmetrical rise and fall of the chest. Circulation: Skin color: pink, Skin temperature: warm, dry. Disability Alert. 17:24 Exposure/Environment: There is no evidence of uncontrolled external bleeding. hb 17:45 Reassessment Breathing/Chest Respiratory pattern Regular Respiratory effort Spontaneous jl7 Unlabored Chest inspection Symmetrical. Assessment: 17:27 Reassessment: Dr Garcia at the bedside. sv 18:10 Reassessment: Pt returned from CT. jl7 19:30 General: Appears in no apparent distress. Behavior is calm, cooperative, appropriate ea for age. Pain: Denies pain. Neuro: Level of Consciousness is awake, alert, obeys commands, Oriented to person, place, time, situation. Cardiovascular: Patient's skin is warm and dry. Respiratory: Airway is patent Respiratory effort is even, unlabored, Respiratory pattern is regular, symmetrical. Derm: Skin is pink, warm \T\ dry. Musculoskeletal: Circulation, motion, and sensation intact. 20:56 Reassessment: Patient and/or family updated on plan of care and expected duration. Pain ea level reassessed. Patient is alert, oriented x 3, equal unlabored respirations, skin warm/dry/pink. Discharge instruction given to patient, verbalized the understanding of instruction. Pt left ED via wheelchair, accompanied by family. Pt tolerating well. No s/s of pain or discomfort noted at this time. Pt assisted to private vehicle, tolerated well. Vital Signs: 17:33 BP 108 / 56; Pulse 79; Resp 18; Pulse Ox 99% ; sv 18:15 BP 109 / 53; Pulse 81; Resp 16 S; Pulse Ox 99% on R/A; jl7 19:30 BP 112 / 62; Pulse 75; Resp 18; Temp 97.6; Pulse Ox 95% ; ea 20:50 BP 120 / 64; Pulse 75; Resp 18; Temp 97.6; Pulse Ox 98% on R/A; ea Eliel Coma Score: 17:34 Eye Response: spontaneous(4). Verbal Response: oriented(5). Motor Response: obeys hb commands(6). Total: 15. 19:30 Eye Response: spontaneous(4). Verbal Response: oriented(5). Motor Response: obeys ea commands(6). Total: 15. 20:50 Eye Response: spontaneous(4). Verbal Response: oriented(5). Motor Response: obeys ea commands(6). Total: 15. Trauma Score (Adult): 17:25 Eye Response: spontaneous(1); Verbal Response: oriented(1); Motor Response: obeys hb commands(2); Systolic BP: > 89 mm Hg(4); Respiratory Rate: 10 to 29 per min(4); Eliel Score: 15; Trauma Score: 12 18:15 Eye Response: spontaneous(1); Verbal Response: oriented(1); Motor Response: obeys jl7 commands(2); Systolic BP: > 89 mm Hg(4); Respiratory Rate: 10 to 29 per min(4); [place] Score: 15; Trauma Score: 12 ED Course: 17:22 Patient arrived in ED. mr 17:22 Henry Abernathy MD is Private Physician. mr 17:25 Ion Garcia MD is Attending Physician. ps1 17:27 Patient has correct armband on for positive identification. Placed in gown. Bed in low sv position. Side rails up X2. Adult w/ patient. security monitor on. Pulse ox on. NIBP on. 17:27 Rigid cervical collar applied and checked by physician. done by Lakeisha SU. sv 17:30 Triage completed. hb 17:[address] via stretcher. sv 17:34 Anu Abarca, RN is Primary Nurse. hb 17:34 Patient maintains SpO2 saturation greater than 95% on room air. Thermoregulation: warm hb blanket given to patient. 17:35 Arm band placed on right wrist. hb 17:43 CT Head C Spine In Process Unspecified. EDMS 18:21 Forearm Left XRAY In Process Unspecified. EDMS 18:21 Hand Left 3 View XRAY In Process Unspecified. EDMS 19:27 Henry Abernathy MD is Referral Physician. ps1 21:01 No provider procedures requiring assistance completed. Patient did not have IV access ea during this emergency room visit. Administered Medications: 18:19 Drug: Tetanus-Diphtheria Toxoid Adult 0.5 ml {Absorber Operator: [employer]. Exp: jl7 01/27/2021. Lot #: [id number]. } Route: IM; Site: right deltoid; 19:30 Follow up: Response: No adverse reaction ea Intake: 21:01 PO: 0ml; Total: 0ml. ea Outcome: 19:29 Discharge ordered by . ps1 21:01 Discharged to home ambulatory, with family. ea 21:01 Condition: stable 21:01 Discharge instructions given to patient, Instructed on discharge instructions, follow up and referral plans. medication usage, Demonstrated understanding of instructions, follow-up care, medications, Prescriptions given X 2. 21:01 Patient's length of stay was not longer than 2 hours. ea 21:02 Patient left the ED. ea Signatures: Dispatcher [employer] EDMS Steffi Tirado RN RN Brooke Major mr Anu Abarca, Lakeisha Anderson RN, RN RN jl7 Cecile Quintero RN RN ea Singer Ion, MD MD ps1
--- NOTE | 2019-06-21 19:30 | EDPHYS ---
Physician Documentation [facility] Name: Caridad Chadwick Age: 83 yrs Sex: Female : 1935 Arrival Date: 06/21/2019 Time: 17:22 Bed 6 Private MD: Henry Abernathy C ED Physician Ion Garcia HPI: 06/21 19:20 This 83 yrs old Female presents to ER via Wheelchair with complaints of Fall ps1 Injury. 19:20 patient was going out to [facility] with friends. Using walker on grass and fell backwards. ps1 Had LOC for seconds C/o head and neck pain and skin tears on arm. Not on blood thinners. Paraspinal spasm. Rated as moderate. Bleeding from arms controlled. . Historical: - Allergies: 17:28 Codeine; sv - Home Meds: 17:40 prednisone 5 mg Oral tab once daily [Active]; carvedilol 12.5 mg Oral tab [Active]; hb Synthroid 75 mcg Oral tab [Active]; metformin 500 mg Oral Tb24 1 tab 2 times per day [Active]; omeprazole 20 mg Oral cpDR [Active]; amlodipine 5 mg tab [Active]; duloxetine 30 mg Oral cpDR 1 cap once daily [Active]; rosuvastatin 5 mg Oral tab [Active]; olmesartan oral oral [Active]; Simponi subcutaneous subcutaneous [Active]; - PMHx: 17:28 Diabetes - NIDDM; Diverticulitis; sv 17:30 Hypertension; GERD; Hypothyroidism; sv 17:40 Rheumatoid Arthritis; hb - PSHx: 17:30 left foot; sv - Immunization history: Last tetanus immunization: < 10 years ago. - Social history:: Smoking status: Patient/guardian denies using tobacco. - Ebola Screening: : No symptoms or risks identified at this time. ROS: 19:20 Constitutional: Negative for fever, chills, and weight loss, Eyes: Negative for injury, ps1 pain, redness, and discharge, Cardiovascular: Negative for chest pain, palpitations, and edema, Respiratory: Negative for shortness of breath, cough, wheezing, and pleuritic chest pain, Abdomen/GI: Negative for abdominal pain, nausea, vomiting, diarrhea, and constipation, Neuro: Negative for headache, weakness, numbness, tingling, and seizure, Psych: Negative for depression, anxiety, suicide ideation, homicidal ideation, and hallucinations. 19:20 MS/extremity: Positive for injury or acute deformity, abrasion, of the left arm, paraspinal spasm right neck. Exam: 19:25 Constitutional: This is a well developed, well nourished patient who is awake, alert, ps1 and in no acute distress. Head/Face: Normocephalic, atraumatic. Eyes: Pupils equal round and reactive to light, extra-ocular motions intact. Lids and lashes normal. Conjunctiva and sclera are non-icteric and not injected. Chest/axilla: Normal chest wall appearance and motion. Nontender with no deformity. No lesions are appreciated. Cardiovascular: Regular rate and rhythm. No gallops, murmurs, or rubs. Normal PMI, no JVD. No pulse deficits. Respiratory: Lungs have equal breath sounds bilaterally, clear to auscultation and percussion. No rales, rhonchi or wheezes noted. No increased work of breathing, no retractions or nasal flaring. Abdomen/GI: Soft, non-tender, with normal bowel sounds. No distension or tympany. No guarding or rebound. No evidence of tenderness throughout. 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 19:25 Skin: multiple skin tears on left arm and hand. Vital Signs: 17:33 BP 108 / 56; Pulse 79; Resp 18; Pulse Ox 99% ; sv 18:15 BP 109 / 53; Pulse 81; Resp 16 S; Pulse Ox 99% on R/A; jl7 19:30 BP 112 / 62; Pulse 75; Resp 18; Temp 97.6; Pulse Ox 95% ; ea 20:50 BP 120 / 64; Pulse 75; Resp 18; Temp 97.6; Pulse Ox 98% on R/A; ea [place] Coma Score: 17:34 Eye Response: spontaneous(4). Verbal Response: oriented(5). Motor Response: obeys hb commands(6). Total: 15. 19:30 Eye Response: spontaneous(4). Verbal Response: oriented(5). Motor Response: obeys ea commands(6). Total: 15. 20:50 Eye Response: spontaneous(4). Verbal Response: oriented(5). Motor Response: obeys ea commands(6). Total: 15. Trauma Score (Adult): 17:25 Eye Response: spontaneous(1); Verbal Response: oriented(1); Motor Response: obeys hb commands(2); Systolic BP: > 89 mm Hg(4); Respiratory Rate: 10 to 29 per min(4); Eliel Score: 15; Trauma Score: 12 18:15 Eye Response: spontaneous(1); Verbal Response: oriented(1); Motor Response: obeys jl7 commands(2); Systolic BP: > 89 mm Hg(4); Respiratory Rate: 10 to 29 per min(4); Eliel Score: 15; Trauma Score: 12 MDM: 17:38 Patient medically screened. ps1 19:25 Data reviewed: vital signs, nurses notes, lab test result(s), radiologic studies, and ps1 as a result, I will discharge patient. Counseling: I had a detailed discussion with the patient and/or guardian regarding: the historical points, exam findings, and any diagnostic results supporting the discharge/admit diagnosis, lab results, radiology results, to return to the emergency department if symptoms worsen or persist or if there are any questions or concerns that arise at home. 06/21 18:19 Order name: Urine Dipstick--Ancillary (enter results) em 06/21 18:23 Order name: Urine Dipstick-Ancillary; Complete Time: 19:19 EDMS 06/21 17:25 Order name: CT Head C Spine 06/21 17:34 Order name: Forearm Left XRAY [facility] 06/21 17:34 Order name: Hand Left 3 View XRAY [facility] 06/21 17:34 Order name: Urine Dipstick-Ancillary (obtain specimen); Complete Time: 18:19 ps1 Administered Medications: 18:19 Drug: Tetanus-Diphtheria Toxoid Adult 0.5 ml {Investigative Analyst: [place]. Exp: jl7 01/27/2021. Lot #: [id number]. } Route: IM; Site: right deltoid; 19:30 Follow up: Response: No adverse reaction ea Disposition: 06/21/19 19:29 Discharged to Home. Impression: Fall from standing height, Multiple skin tears on left arm, Skin tear left middle finger, Cervicalgia, Head injury, possible concussion. - Condition is Stable. - Discharge Instructions: Head Injury, Adult, Skin Tear Care, Fall Prevention in the Home, [id number]. - Prescriptions for Anaprox DS 550 mg Oral Tablet - take 1 tablet by ORAL route every 12 hours As needed; 20 tablet. Robaxin 500 mg Oral Tablet - take 2 tablet by ORAL route every 6 hours As needed; 40 tablet. - Medication Reconciliation Form, Thank You Letter, Antibiotic Education, Prescription Opioid Use form. - Follow up: Henry Abernathy MD; When: As needed; Reason: Recheck today's complaints, Continuance of care, Re-evaluation by your physician. Follow up: Emergency Department; When: As needed; Reason: Trouble breathing, Worsening of condition. - Problem is new. - Symptoms have improved. Signatures: Dispatcher [employer] EDMS Steffi Tirado, RN RN Anu Abarca RN RN Lakeisha Melton RN SHARLENE jl7 Cecile Quintero RN RN ea Singer, Phillip, MD MD ps1 Corrections: (The following items were deleted from the chart) 21:02 19:29 06/21/2019 19:29 Discharged to Home. Impression: Fall from standing ea heightMultiple skin tears on left arm; Skin tear left middle finger; Cervicalgia; Head injury, possible concussion. Condition is Stable. Forms are Medication Reconciliation Form, Thank You Letter, Antibiotic Education, Prescription Opioid Use. Follow up: Henry Abernathy; When: As needed; Reason: Recheck today's complaints, Continuance of care, Re-evaluation by your physician. Follow up: Emergency Department; When: As needed; Reason: Trouble breathing, Worsening of condition. Problem is new. Symptoms have improved. ps1
--- NOTE | 2019-06-21 19:59 | RAD REPORT ---
EXAM DESCRIPTION: RAD - Forearm Left - 06/21/2019 6:18 pm CLINICAL HISTORY: Trip and fall, left arm pain COMPARISON: None. FINDINGS: No fracture is identified. There is no dislocation or periosteal reaction noted. No acute or destructive bone process. Patient has advanced degenerative change involving the trapezii M first metacarpal articulation. There is first metacarpal subluxation is chronic. Soft tissue injury is evident. Bandaging is in place. No air or foreign body. IMPRESSION: Soft tissue injury is evident without air or foreign body in the soft tissues. Degenerative change with no acute bone finding.
--- NOTE | 2019-06-21 20:01 | RAD REPORT ---
EXAM DESCRIPTION: RAD - Hand Left 3 View - 06/21/2019 6:18 pm CLINICAL HISTORY: Fall, left hand pain COMPARISON: None. FINDINGS: No fracture, dislocation or periosteal reaction noted. No acute or destructive bone proces s. Patient very advanced degenerative change at the trapezium first metacarpal articulation with meta carpal subluxation. There is advanced degenerative change at the trapezium scaphoid articulation as w ell. IP joint degenerative changes are present. Bandages are in place along the distal forearm and between the second and third fingers. No air or fo reign body in the soft tissues. IMPRESSION: Soft tissue injuries are present without air or foreign body. Advanced bony degenerative change without acute finding.
[2019-06-21 22:00] VITALS: O2SAT 99
[2019-06-21 22:02] VITALS: BP 109/53
== END 2019-06-21 21:02 | disposition home or self-care (01) ==
LOC: ER 17:21
DX: S09.90XA Unspecified injury of head, initial encounter (principal); S41.112A Laceration without foreign body of left upper arm, initial encounter; S61.213A Laceration without foreign body of left middle finger without damage to nail, initial encounter; W19.XXXA Unspecified fall, initial encounter; Y93.89 Activity, other specified; Y92.89 Other specified places as the place of occurrence of the external cause; Z88.5 Allergy status to narcotic agent; I10 Essential (primary) hypertension; E11.9 Type 2 diabetes mellitus without complications; E03.9 Hypothyroidism, unspecified
CPT/HCPCS: 70450; 72125; 81003; 90471; 99285

== ENCOUNTER 2019-07-04 11:19 | Emergency (ER) | payer OTHER ==
--- OUTSIDE RECORDS SUMMARY | 2019-07-04 11:50 | XMS REPORT | Clinical Summary ---
:1935 Author Organization [facility] Address [address] [place] [address] Care Team Providers Name Role Phone Trva Abernathy MD Primary Care Provider Allergies Active [...] Ortez MD Cheema, Ivelisse, FNP 04/14/2019 Surgery 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 chronicity, with sciatica presence unspecified after 07/03/2018 Results [place] < 1 Hour (04/14/2019 3:30 PM CDT)Only the most recent of2 resultswithin the time period is included. Specimen Narrative Performed At EXAMINATION:[place] 1 HOUR [facility] CLINICAL HISTORY: IMPRESSION: Fluoroscopy was provided. No radiologist present.Please see procedure report for discussion of procedure, findings and fluoroscopic time. [facility]-[id number] Procedure Note Hm Interface, Radiology Results Incoming - 04/14/2019 4:06 PM CDT EXAMINATION: [place] 1 HOUR CLINICAL HISTORY: IMPRESSION: Fluoroscopy was provided. No radiologist present. Please see procedure report for discussion of procedure, findings and fluoroscopic time. [facility]-[id number] Performing Organization Address City/[facility]/Zipcode Phone Number [facility] [address] [place] [address] POC glucose (04/14/2019 1:32 PM CDT)Only the most recent of2 resultswithin the time period is included. POC glucose 116 (H) 65 - 99 mg/dL KADIE REYES Comment: [facility] Meter ID: [id number] Flatbed Driver: Mukund Avis Specimen Performing Organization Address City/[facility]/Zipcode Phone Number [facility] DEPARTMENT OF PATHOLOGY [address] [address] [facility] [place] [address] AND GENOMIC MEDICINE ENGLE ERIC TAMAROA [address] [address] [facility] [place] [address] HOSPITAL XR Shoulder 2+ Vw Right (03/18/2019 3:53 PM CDT) Specimen Narrative Performed At EXAMINATION:XR SHOULDER 2VW RIGHT [facility] CLINICAL HISTORY:M25.511 Pain in right shoulder, Shoulder Pain COMPARISON:None. 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 No acute osseous abnormality or malalignment. [id number] Procedure Note Interface, Radiology Results Incoming - 03/18/2019 4:19 PM CDT EXAMINATION: XR SHOULDER 2 VW RIGHT CLINICAL HISTORY: M25.511 Pain in right shoulder, Shoulder Pain COMPARISON: None. 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 No acute osseous abnormality or malalignment. [id number] Performing Organization Address [facility] Phone Number [facility] [address] [place] [address] XR Hip 2-3 View Right (03/18/2019 3:52 [...] identified. Bones appear demineralized. Performing Organization Address [facility] Phone Number [facility] [address] [place] [address] ECG 12 lead (02/17/2019 12:05 PM CDT) Ventricular rate 68 [facility] Atrial rate 68 [facility] NM interval 176 [facility] QRSD interval 82 [facility] QT interval 392 [facility] QTC interval 416 [facility] MUSE P axis 1 18 [facility] QRS axis 1 -27 [facility] T wave axis 3 [facility] MUSE EKG impression Normal sinus [facility] MUSE rhythm-Normal ECG-In automated comparison with ECG of 15-JAN-2017 16:10,-No significant change was found- Specimen Narrative Performed At Performing Organization Address City/State/Zipcode Phone Number [facility] MUSE [address] [place] [address] MRI Lumbar Spine Wo Contrast (02/03/2019 2:02 [...] 03/11/2017. Additional degenerative changes are detailed above. [id number] Procedure Note Hm Interface, Radiology Results Incoming [...] 03/11/2017. Additional degenerative changes are detailed above. 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
[2019-07-04] MEDS ORDERED: MUPIROCIN 2% OINT 22GM TUBE TOP ONE (14:47)
--- NOTE | 2019-07-04 14:50 | ER ---
Nurse's Notes [facility] Name: Caridad Chadwick Age: 83 yrs Sex: Female : 1935 Arrival Date: 07/04/2019 Time: 11:24 Bed 14 Private MD: Diagnosis: Encounter for change or removal of nonsurgical wound dressing Presentation: 07/04 11:25 Presenting complaint: Patient states: pt had a skin tear to the LUE about 2 weeks ago sv and was seen here and discharged. Pt has been changing the dressing and today states the wound is painful and red. Transition of care: patient was not received from another setting of care. Onset of symptoms was July 04, 2019. Risk Assessment: Do you want to hurt yourself or someone else? Patient reports no desire to harm self or others. Care prior to arrival: None. 11:25 Method Of Arrival: Ambulatory sv 11:25 Acuity: ZOIE 3 sv 14:40 Initial Sepsis Screen: Does the patient meet any 2 criteria? No. Patient's initial iw sepsis screen is negative. Does the patient have a suspected source of infection? No. Patient's initial sepsis screen is negative. Triage Assessment: 11:29 General: Appears in no apparent distress. comfortable, Behavior is calm, cooperative, sv appropriate for age. Neuro: Level of Consciousness is awake, alert, obeys commands, Gait is steady. Respiratory: Respiratory effort is even, unlabored, Respiratory pattern is regular, symmetrical. Derm: Wound noted palmar aspect of left forearm Wound is open skin tear. Historical: - Allergies: 11:27 Codeine; sv - PMHx: 11:27 Diabetes - NIDDM; Diverticulitis; GERD; Hypertension; Hypothyroidism; Rheumatoid sv Arthritis; - PSHx: 11:27 left foot; sv - Immunization history:: Adult Immunizations unknown. - Social history:: Smoking status: unknown. - Ebola Screening: : Patient negative for fever greater than or equal to 101.5 degrees Fahrenheit, and additional compatible Ebola Virus Disease symptoms Patient denies exposure to infectious person Patient denies travel to an Ebola-affected area in the 21 days before illness onset No symptoms or risks identified at this time. Screenin:00 Abuse screen: Denies threats or abuse. Denies injuries from another. Nutritional iw screening: No deficits noted. Tuberculosis screening: No symptoms or risk factors identified. Fall Risk Fall in past 12 months (25 points). Assessment: 14:40 General: Appears in no apparent distress. Behavior is calm, cooperative. Pain: iw Complains of pain in palmar aspect of left forearm. Neuro: Level of Consciousness is awake, alert, obeys commands, Oriented to person, place, time, situation, Moves all extremities. Cardiovascular: Patient's skin is warm and dry. Respiratory: Respiratory effort is even, unlabored, Respiratory pattern is regular, symmetrical. Derm: Skin is fragile, is thin, has skin tears on left forearm, healing, redness surrounding wound. Musculoskeletal: Range of motion: intact in all extremities. Vital Signs: 11:27 BP 109 / 56; Pulse 86; Resp 16; Temp 98.2(O); Pulse Ox 98% ; Weight 68.04 kg; Height 5 sv ft. 2 in. (157.48 cm); 11:27 Body Mass Index 27.44 (68.04 kg, 157.48 cm) sv ED Course: 11:24 Patient arrived in ED. as 11:27 Triage completed. sv 11:29 Arm band placed on. sv 14:31 Eloisa Barry FNP-C is PHCP. snw 14:31 South Carey MD is Attending Physician. snw 14:42 Tsering Paige, SHARLENE is Primary Nurse. iw 15:00 Patient has correct armband on for positive identification. iw 15:04 No provider procedures requiring assistance completed. Patient did not have IV access iw during this emergency room visit. Administered Medications: 14:53 Drug: Hibiclens 4 % 1 application Route: Topical; Site: affected area; iw 14:54 Drug: Bactroban Ointment 2 % 1 application Route: Topical; Site: affected area; iw Outcome: 14:48 Discharge ordered by . snw 15:04 Discharged to home ambulatory, with family. iw 15:04 Condition: good 15:04 Discharge instructions given to patient, family, Instructed on discharge instructions, follow up and referral plans. medication usage, Demonstrated understanding of instructions, follow-up care, medications, wound care, Prescriptions given X 1. 15:05 Patient left the ED. iw Signatures: Steffi Tirado RN RN Eloisa Barry FNP-C [employer]PER[employer]ENDENT [employer]-Grace Hollins as Royal, Tsering, RN RN iw
--- NOTE | 2019-07-04 14:50 | EDPHYS ---
Physician Documentation [facility] Name: Caridad Chadwick Age: 83 yrs Sex: Female : 1935 Arrival Date: 07/04/2019 Time: 11:24 Bed 14 Private MD: ED Physician South Carey HPI: 07/04 14:55 This 83 yrs old Female presents to ER via Ambulatory with complaints of Wound snw Recheck. 14:55 Patient presents to ED for recheck of: skin tear re-evaluation. The affected area is on snw the dorsal aspect of left forearm and hand. Previous treatment: the care was rendered at [facility]. Progress: The patient reports decreased pain, open areas of wound. The patient has not experienced similar symptoms in the past. as noted. Historical: - Allergies: 11:27 Codeine; sv - PMHx: 11:27 Diabetes - NIDDM; Diverticulitis; GERD; Hypertension; Hypothyroidism; Rheumatoid sv Arthritis; - PSHx: 11:27 left foot; sv - Immunization history:: Adult Immunizations unknown. - Social history:: Smoking status: unknown. - Ebola Screening: : Patient negative for fever greater than or equal to 101.5 degrees Fahrenheit, and additional compatible Ebola Virus Disease symptoms Patient denies exposure to infectious person Patient denies travel to an Ebola-affected area in the 21 days before illness onset No symptoms or risks identified at this time. ROS: 14:53 Constitutional: Negative for fever, chills, and weight loss, Eyes: Negative for injury, snw pain, redness, and discharge, ENT: Negative for injury, pain, and discharge, Neck: Negative for injury, pain, and swelling, Cardiovascular: Negative for chest pain, palpitations, and edema, Respiratory: Negative for shortness of breath, cough, wheezing, and pleuritic chest pain, Abdomen/GI: Negative for abdominal pain, nausea, vomiting, diarrhea, and constipation, Back: Negative for injury and pain, : Negative for injury, bleeding, discharge, and swelling, MS/Extremity: Negative for injury and deformity, Neuro: Negative for headache, weakness, numbness, tingling, and seizure. 14:53 Skin: Positive for of the dorsal aspect of left forearm and dorsum of hand between second and third finger webbing. Exam: 14:50 Constitutional: This is a well developed, well nourished patient who is awake, alert, snw and in no acute distress. Head/Face: Normocephalic, atraumatic. Eyes: Pupils equal round and reactive to light, extra-ocular motions intact. Lids and lashes normal. Conjunctiva and sclera are non-icteric and not injected. Cornea within normal limits. Periorbital areas with no swelling, redness, or edema. ENT: Nares patent. No nasal discharge, no septal abnormalities noted. Tympanic membranes are normal and external auditory canals are clear. Oropharynx with no redness, swelling, or masses, exudates, or evidence of obstruction, uvula midline. Mucous membranes moist. Neck: Trachea midline, no thyromegaly or masses palpated, and no cervical lymphadenopathy. Supple, full range of motion without nuchal rigidity, or vertebral point tenderness. No Meningismus. Chest/axilla: Normal chest wall appearance and motion. Nontender with no deformity. No lesions are appreciated. Cardiovascular: Regular rate and rhythm with a normal S1 and S2. No gallops, murmurs, or rubs. Normal PMI, no JVD. No pulse deficits. Respiratory: Lungs have equal breath sounds bilaterally, clear to auscultation and percussion. No rales, rhonchi or wheezes noted. No increased work of breathing, no retractions or nasal flaring. Abdomen/GI: Soft, non-tender, with normal bowel sounds. No distension or tympany. No guarding or rebound. No evidence of tenderness throughout. Back: No spinal tenderness. No costovertebral tenderness. Full range of motion. MS/ Extremity: Pulses equal, no cyanosis. Neurovascular intact. Full, normal range of motion. Neuro: Awake and alert, GCS 15, oriented to person, place, time, and situation. Cranial nerves II-XII grossly intact. Motor strength 5/5 in all extremities. Sensory grossly intact. Cerebellar exam normal. Normal gait. Psych: Awake, alert, with orientation to person, place and time. Behavior, mood, and affect are within normal limits. 14:50 Skin: Appearance: normal except for affected area, injury, + recent skin tear to left dorsal forearm, central area is resistant to healing, + scabbing, minimal surrounding erythema. minimal tenderness, pt also has a tiny area of scabbing in between second and third finger webbing. area heals and then pops open again with movement of fingers. Will cleans, apply bactroban, and splint. Vital Signs: 11:27 BP 109 / 56; Pulse 86; Resp 16; Temp 98.2(O); Pulse Ox 98% ; Weight 68.04 kg; Height 5 sv ft. 2 in. (157.48 cm); 11:27 Body Mass Index 27.44 (68.04 kg, 157.48 cm) sv MDM: 14:34 Patient medically screened. snw 14:54 Data reviewed: vital signs, nurses notes. Data interpreted: Pulse oximetry: on room air snw is 98 %. Interpretation: normal. Counseling: I had a detailed discussion with the patient and/or guardian regarding: the historical points, exam findings, and any diagnostic results supporting the discharge/admit diagnosis, the need for outpatient follow up, to return to the emergency department if symptoms worsen or persist or if there are any questions or concerns that arise at home. Special discussion: I discussed in detail with the patient the higher chance of wound infection based on his presenting history. Based on the history and exam findings, there is no indication for further emergent testing or inpatient evaluation. I discussed with the patient/guardian the need to see the primary care provider for further evaluation of the symptoms. 07/04 14:47 Order name: Wound Care; Complete Time: 14:53 snw 07/04 14:47 Order name: Wound dressing; Complete Time: 14:53 snw Administered Medications: 14:53 Drug: Hibiclens 4 % 1 application Route: Topical; Site: affected area; iw 14:54 Drug: Bactroban Ointment 2 % 1 application Route: Topical; Site: affected area; iw Disposition: 07/05 07:43 Co-signature as Attending Physician, South Carey MD I agree with the assessment and nuris plan of care. Disposition: 07/04/19 14:48 Discharged to Home. Impression: Encounter for change or removal of nonsurgical wound dressing. - Condition is Stable. - Discharge Instructions: Wound Check, Wound Care. - Prescriptions for Bactroban 2 % Topical Ointment - Apply to affected area 1 application by TOPICAL route every 12 hours; 30 gram. - Medication Reconciliation Form, Thank You Letter, Antibiotic Education, Prescription Opioid Use form. - Follow up: Emergency Department; When: As needed; Reason: Worsening of condition. Follow up: Private Physician; When: 1 week; Reason: Recheck today's complaints, Continuance of care. - Notes: Please clean area with Hibiclens twice daily until dry. Signatures: Steffi Tirado, RN RN South Mukherjee MD MD cha Therrien, Shelly, AIRPLANE TESTER-C AIRPLANE TESTER-Csnw Tsering Paige RN RN iw Corrections: (The following items were deleted from the chart) 07/04 15:05 14:48 07/04/2019 14:48 Discharged to Home. Impression: Encounter for change or removal iw of nonsurgical wound dressing. Condition is Stable. Forms are Medication Reconciliation Form, Thank You Letter, Antibiotic Education, Prescription Opioid Use. Follow up: Emergency Department; When: As needed; Reason: Worsening of condition. Follow up: Private Physician; When: 1 week; Reason: Recheck today's complaints, Continuance of care. snw
== END 2019-07-04 15:05 | disposition home or self-care (01) ==
LOC: ER 11:19
DX: Z48.00 Encounter for change or removal of nonsurgical wound dressing (principal); I10 Essential (primary) hypertension; Z88.5 Allergy status to narcotic agent
CPT/HCPCS: 99283

== ENCOUNTER 2020-02-24 16:53 | Emergency (ER) | payer OTHER ==
--- OUTSIDE RECORDS SUMMARY | 2020-02-24 16:57 | XMS REPORT | Clinical Summary ---
:1935 Author Organization [employer] Address [address] [place] [address] Care Team Providers Name Role Phone Murtaza Abernathy MD Primary Care Provider Allergies Active Allergy Reactions Severity Noted Date Comments Codeine Other (See Comments) 03/07/2017 BRITTANYS Murtaza DEL TORO PER PT Medications Medication Sig Dispensed Refills Start Date End Date Status RESTASIS 0.05 % Administer 1 6 06/24/2016 Active ophthalmic emulsion drop to both eyes daily. rosuvastatin Take 5 mg by 0 Acti ve (CRESTOR) 5 MG mouth nightly. tablet golimumab (SIMPONI Infuse into a 0 Active ARIA IV) venous catheter. Every 8 weeks predniSONE Take 5 mg by 0 Active (DELTASONE) 5 mg mouth daily. tablet amLODIPine Take 5 mg by 0 Active (NORVASC) 5 mg mouth nightly. tablet olmesartan Take 40 mg by 0 Activ e (BENICAR) 40 MG mouth daily. tablet levothyroxine Take 75 mcg by 0 A ctive (SYNTHROID, mouth daily. LEVOXYL) 75 mcg tablet metFORMIN Take 500 mg by 0 Activ e (GLUCOPHAGE) 500 mg mouth 2 (two) tablet times a day with meals. omeprazole Take 20 mg by 0 Activ e (PriLOSEC) 20 MG mouth daily. capsule glipiZIDE Take 2.5 mg by 0 Activ e (GLUCOTROL) 2.5 MG mouth daily. 24 hr tablet carvediloL (COREG) Take 12.5 mg by 0 Active 12.5 MG tablet mouth 2 (two) times a day with meals. DULoxetine Take 30 mg by 0 Activ e (CYMBALTA) 30 MG mouth daily. capsule multivitamin with Take 1 tablet by 0 02/23 Discontinued minerals tablet mouth daily. 0 carvedilol (COREG) TK 1 T PO BID 3 05/12/2017 Discontinued 6.25 MG tablet 0 DULoxetine nightly. 0 03/27/2017 Disconti nued (CYMBALTA) 60 MG 0 capsule VOLTAREN 1 % gel Apply 2-4 grams 300 g 1 07/03/2017 Discontinued four times a day 9 as needed for pain metFORMIN Take 1,000 mg by 0 Dis continued (GLUCOPHAGE) 1,000 mouth 2 (two) 0 mg tablet times a day with meals. naproxen sodium Take 220 mg by 0 Discontinued (ALEVE) 220 MG mouth every 12 0 tablet (twelve) hours as needed for mild pain. LYRICA 25 mg Take 25 mg by 3 07/12/2019 Di scontinued capsule mouth 2 (two) 0 times a day. linaGLIPtin Take 5 mg by 0 Disco ntinued (TRADJENTA) 5 mg mouth daily with 0 tablet breakfast. naproxen (NAPROSYN) Take 1 tablet 60 tablet 0 11/21/201902/23 Discontinued 500 MG tablet (500 mg total) 0 by mouth 2 (two) times a day. Hospital, Clinic, or Ordered Dose Route Frequency Start Date End D ate Status Other Facility Administered Medication methylPREDNISolone 40 mg IM once 07/20/2017 Discontinued acetate (DEPO-MEDROL) 9 injection 40 mgIndications: Effusion of left knee Active Problems Problem Noted Date Spondylolisthesis at L4-L5 level 11/30/2019 Overview: Added automatically from request for andrés toni [id number] Spondylolisthesis at L5-S1 level 11/30/2019 Overview: Added automatically from request for andrés toni [id number] Trochanteric bursitis of right hip 11/30/2019 Overview: Added automatically from request for andrés toni [id number] Diverticulitis 03/07/2017 Abscess of sigmoid colon 02/22/2017 Other spondylosis with radiculopathy, lumbar region Spondylolisthesis of lumbar region 01/26/2017 Primary osteoarthritis of right knee 08/04/2016 Rheumatoid arthritis involving multiple sites with pos itive rheumatoid 05/08/2016 factor Follow-up examination following treatment with high-ri sk medication 05/06/2016 Hypothyroidism 04/03/2016 S/P [place]-BSO 04/03/2016 Hypertension 04/03/2016 Degeneration of intervertebral disc of lumbosacral reg ion 03/09/2015 Encounters Date Type Specialty Care Team Description 02/24/2020 Hospital Encounter Radiology Sonny Guaman Pre-op hanna Mayo MD 02/24/2020 Pre-Admit Testing Pre-Admission Sonny Guaman Pre-op t fabiola (Primary Appointment Testing MD Maria Esther Dx) 02/24/2020 Office Visit Orthopedic Sonny Guaman Other spondylo sis with radiculopathy, lumbar region (Primary Dx); Surgery MD Maria Esther Spondylolisthes is at L4-L5 level; Spondylolisthes is at L5-S1 level 02/24/2020 Telephone Orthopedic Horacio Vernon Surgery GARRY Purdy 02/24/2020 Travel 02/21/2020 Travel 02/16/2020 Travel 02/09/2020 Travel 01/06/2020 Travel 01/03/2020 Transcribe Orders Sonny Koch spo ndylosis with radiculopathy, lumbar region (Primary Dx); Surgery MD Maria Esther Spondylolisthes is at L4-L5 level; Spondylolisthes is at L5-S1 level; Trochanteric bu rsitis of right hip 01/02/2020 Travel 11/30/2019 Transcribe Orders Sonny Koch spo ndylosis with radiculopathy, lumbar region (Primary Dx); Surgery MD Maria Esther Spondylolisthes is at L4-L5 level; Spondylolisthes is at L5-S1 level; Trochanteric bu rsitis of right hip 11/21/2019 Office Visit Orthopedic Horacio Vernon Other spondy losis with radiculopathy, lumbar region (Primary Dx); Surgery GARRY Purdy Spondylolisthes is at L4-L5 level; Spondylolisthes is at L5-S1 level; Trochanteric bu rsitis of right hip 11/02/2019 Anesthesia Event General Surgery Preeti Bobo MD Cheema, Ivelisse, FNP 11/02/2019 Surgery General Surgery Maurilio, RIGHT GENICU LAR NERVE Sanford Pike MD 11/02/2019 Hospital Encounter General Surgery Peccora, Sanford Pike MD 09/22/2019 Surgery General Surgery Peccora, RIGHT GENICU LAR NERVE Sanford Pike MD 09/22/2019 Anesthesia Event General Surgery Danette Ortez MD Hurd, Regina Stout NP 09/22/2019 Hospital Encounter General Surgery Sanford Thorpe MD 07/28/2019 Anesthesia Event General Surgery Danette Ortez MD Cheema, Magy, DIRECTOR OF [facility] 07/28/2019 Surgery General Surgery Peccora, RIGHT GENICU LAR NERVE Sanford Dan BLOCK KNEEE OR OTHER MD Shahzad INDICATED PROCE DURES 07/28/2019 Hospital Encounter General Surgery Sanford Thorpe MD 04/14/2019 Anesthesia Event General Surgery Danette Ortez MD Cheema, Magy, DIRECT[facility] 04/14/2019 Surgery General Surgery Peccora, INTRA-ARTICU LAR Sanford Dan INJECTION TA RGETING THE MD Shahzad RIGHT HIP OR O THER INDICATED PROCE DURES 04/14/2019 Hospital Encounter General Surgery Pecco, Sanford Pike MD 03/18/2019 Hospital Encounter Radiology Peccora, Right wendy ulder pain, Sanford Dan unspecified chronicity MD Shahzad 03/18/2019 Hospital Encounter Radiology Peccora, Arthralgi a of hip, Sanford Dan unspecified laterality MD Shahzad 03/18/2019 Transcribe Orders Access Peccora, Right shou lder pain, unspecified chronicity (Primary Dx); Sanford Dan Arthralgia o f hip, unspecified laterality MD Shahzad after 02/23/2019 Family History Medical History Relation Name Comments Diabetes Brother Lung cancer Father Old age Mother Relation Name Status Comments Brother Father lung cancer Mother (Age 80) diabetes Social History Tobacco Use Types Packs/Day Years Used Date Never Smoker Smokeless Tobacco: Never Used Alcohol Use Drinks/Week oz/Week Comments Yes 1 Glasses of wine 1.0 1-2 times a ye ar Sex Assigned at Date Recorded Not on file Job Start Date Occupation Industry Not on file Not on file Not on file Travel History Travel Start Travel End No recent travel history available. COVID-19 Exposure Response Date Recorded In the last month, have you been in contact with No / Unsure 02/24/2020 10:27 AM CDT someone who was confirmed or suspected to have Coronavirus / COVID-19? Last Filed Vital Signs Vital Sign Reading Time Taken Comments Blood Pressure 137/67 02/24/2020 12:29 PM CDT Pulse 71 02/24/2020 12:29 PM CDT Temperature 35.9 C (96.7 F) 02/24/2020 12:29 PM CDT Respiratory Rate 18 02/24/2020 12:29 PM CDT Oxygen Saturation 96% 02/24/2020 12:29 PM CDT Inhaled Oxygen Concentration - - Weight 66.2 kg (146 lb) 11/02/2019 7:53 AM LIVESTOCK FEEDER Height 154.9 cm (5' 1") 02/24/2020 12:29 PM CDT Body Mass Index 27.59 11/02/2019 7:53 AM LIVESTOCK FEEDER Plan of Treatment Date Type Specialty Care Team Description 03/01/2020 Hospital Encounter [place] [address] [place], [place] [id number] 03/01/2020 Anesthesia Event General Surgery Magy Bashir, DIRECTOR OF [facility] [address] [place], [place] [address] [phone] 03/01/2020 Surgery General Surgery Sonny Guaman, LUMBAR POSTERIOR MD DECOMPRESSION [facility] LAMINOTOMY L 4-[address] FORAMINOTOMY L5-S1 [place], [place] [address] INDICATED PROCEDURES. [phone] 03/14/2020 Office [place] [address] [place], [place] [id number] [place] [address] [place] [address] Health Maintenance Due Date Last Done Comments SHINGLES VACCINES (#1) 1983 65+ PNEUMOCOCCAL VACCINE (1 of 2 - PCV13) 1998 INFLUENZA VACCINE 05/19/2020 Implants Implanted Type Area Credit Support Counselor Device Shelf Model / Identifier Expiration Date Ser ial / Lot Screw-06/19/2015 Screw Left: Foot Implanted: 06/19/2015 (Quantity not on file) Plate Description:Right ankle plate as per pt Procedures Procedure Name Priority Date/Time Associated Comments Diagnosis XR CHEST 2 VW Routine 02/24/2020 2:03 Pre-op testing Results for this PM CDT procedure are i n the results section. ECG PRE/POST OP Routine 02/24/2020 1:04 Pre-op testing PM CDT ESTIMATED GFR Routine 02/24/2020 12:48 Results fo r this PM CDT procedure are i n the results section. HEMOGLOBIN A1C Routine 02/24/2020 12:48 Pre-op testing Results for this PM CDT procedure are i n the results section. TYPE AND SCREEN Routine 02/24/2020 12:48 Pre-op testing Result s for this PM CDT procedure are i n the results section. PROTHROMBIN TIME WITH Routine 02/24/2020 12:48 Pre-op testing Results for this INR PM CDT procedure are i n the results section. PARTIAL THROMBOPLASTIN Routine 02/24/2020 12:48 Pre-op testing Results for this TIME (PTT) PM CDT procedure are i n the results section. COMPREHENSIVE METABOLIC Routine 02/24/2020 12:48 Pre-op testin g Results for this PANEL PM CDT procedure are i n the results section. CBC WITH PLATELET AND Routine 02/24/2020 12:48 Pre-op testing Results for this DIFFERENTIAL PM CDT procedure are i n the results section. OR FL < 1 HOUR Routine 11/02/2019 10:26 Results f or this AM LIVESTOCK FEEDER procedure are i n the results section. POC GLUCOSE Routine 11/02/2019 8:10 Results for this AM LIVESTOCK FEEDER procedure are i n the results section. OR FL < 1 HOUR Routine 09/22/2019 2:20 Results f or this PM LIVESTOCK FEEDER procedure are i n the results section. POC GLUCOSE Routine 09/22/2019 12:11 Results for this PM LIVESTOCK FEEDER procedure are i n the results section. OR FL < 1 HOUR Routine 07/28/2019 2:00 Results f or this PM CDT procedure are i n the results section. POC GLUCOSE Routine 07/28/2019 12:35 Results for this PM CDT procedure are i n the results section. OR FL < 1 HOUR Routine 04/14/2019 3:30 Results f or this PM CDT procedure are i n the results section. POC GLUCOSE Routine 04/14/2019 1:32 Results for this PM CDT procedure are i n the results section. XR SHOULDER 2+ VW RIGHT Routine 03/18/2019 3:53 Right shoulde r Results for this PM CDT pain, unspecified procedure are in chronicity the results section. XR HIP 2-3 VIEWS RIGHT Routine 03/18/2019 3:52 Arthralgia of hip, Results for this PM CDT unspecified procedure are i n laterality the results section. after 02/23/2019 Results XR Chest 2 Vw (02/24/2020 2:03 PM CDT) Specimen Narrative Performed At EXAMINATION: XR CHEST 2 VW [facility] CLINICAL H[facility]: Z01.818 Encounter for other prepro cedural examination, PRE OP COMPARISON: Single view chest from 02/17 IMPRESSION: PA and lateral radiographs of the chest was submitted for interpretation. The lungs are clear. No focal consolidation or pleural effusion. No pneumothorax or midline shift. Again noted is nonspeci fic elevation of the right hemidiaphragm. The mediastinal contours and cardiac silhouette are un changed and unremarkable. The bones are unremarkable. [facility]-[id number] Procedure Note Interface, Radiology Results Incoming - 02/24/2020 2:07 PM CDT EXAMINATION: XR CHEST 2 VW CLINICAL HISTORY: Z01.818 Encounter for other preprocedural examination, PRE OP COMPARISON: Single view chest from 03/09 IMPRESSION: PA and lateral radiographs of the chest was submitted for interpretation. The lungs are clear. No focal consolidat ion or pleural effusion. No pneumothorax or midline shift. Again noted is nonspecific elevation of the right hemidiaphragm. The mediastinal contours and cardiac augusto houette are unchanged and unremarkable. The bones are unremarkable. [facility]-[id number] Performing Organization Address City/State/Zipcode Phone Number [facility] [address] [place] [address] Estimated GFR (02/24/2020 12:48 PM CDT) Estimated GFR 51 (A) mL/min/1.73 [facility] Comment: m2 [place] Catergory Units Interpretation HOS PITAL G1 >=90 Normal or high G2 60-89 Mildly decreased G3a 45-59 Mildly to moderately decreas ed G3b 30-44 Moderately to severely decre ased G4 15-29 Severely decreased G5 <15 Kidney failure The eGFR was calculated using the Chronic Kidney Disea se Epidemiology Collaboration (CKD-EPI) equation. Interpretation is based on recommendations of the National Kidney Foundation-Kidney Disease Outcomes Felipe lity Initiative (NKF-KDOQI) published in 2014. Specimen Performing Organization Address City/[facility]/Zipcode Phone Number [facility] DEPARTMENT OF PATHOLOGY [address] [place] [address] Partial thromboplastin time, activated (02/24/2020 12:48 PM CDT) PTT 23.8 23.0 - 36.0 [facility] Comment: sec [place] PTT therapeutic range for unfractionated heparin is HOSPITAL 61.0-112.0 seconds which corresponds to Anti-Xa 0.3-0.7 U/ml. Specimen Blood Performing Organization Address [facility] Phone Number [facility] DEPARTMENT OF PATHOLOGY [address] [place] [address] Prothrombin time with INR (02/24/2020 12:48 PM CDT) Prothrombin time 13.6 11.5 - 14.5 [facility] INR 1.0 [place] Comment: ERIC MARTEL The International Normalized Ratio (INR) is a therapeu [facility] monitoring tool for patients who are stable on oral anticoagulant therapy. An INR of 2.0-3.0 is suggested for deep vein thrombosis/pulmonary embolism. Specimen Blood Performing Organization Address City/[facility]/Zipcode Phone Number [facility] DEPARTMENT OF PATHOLOGY [address] [place] [address] CBC with platelet and differential (02/24/2020 12:48 PM CDT) WBC 9.6 4.5 - 11.0 k/uL [facility] RBC 3.62 (L) 4.20 - 5.50 [facility] m/uL [facility] HGB 10.8 (L) 12.0 - 16.0 [facility] g/dL [facility] HCT 34.1 (L) 37.0 - 47.0 % [facility] MCV 94.2 82.0 - 100.0 fL [facility] MCH 29.8 27.0 - 34.0 pg [facility] MCHC 31.7 31.0 - 37.0 [facility] g/dL [facility] RDW - SD 54.9 37.0 - 55.0 fL [facility] MPV 10.0 6.9 - 11.0 fL [facility] Platelet count 329 150 - 400 K/uL [facility] Nucleated RBC 0.00 /100 WBC [facility] Neutrophils 73.3 (H) 39.0 - 69.0 % [facility] Lymphocytes 19.2 (L) 25.0 - 45.0 % [facility] Monocytes 5.3 0.0 - 10.0 % [facility] Eosinophils 0.6 0.0 - 5.0 % [facility] Basophils 0.3 0.0 - 1.0 % [facility] Immature granulocytes 1.3 (H) 0.0 - 1.0 % [facility] Specimen Blood Performing Organization Address City/State/Zipcode Phone Number [facility] DEPARTMENT OF PATHOLOGY [id number] [place] [address] AND [place] [id number] HOSPITAL Type and screen (02/24/2020 12:48 PM CDT) Pathologist Sig nature ABO grouping A [facility] Rh type POS [facility] Antibody screen (gel) [facility]G [facility] Specimen Blood Performing Organization Address City/[facility]/Zipcode Phone Number [facility] DEPARTMENT OF PATHOLOGY [address] [place] [address] Hemoglobin A1c (02/24/2020 12:48 PM CDT) Hemoglobin A1C 7.0 (H) 4.0 - 5.6 % [facility] Comment: [place] HbA1c cutoffs for diagnosing diabetes: HO CATA 4.0% - 5.6% = normal 5.7% - 6.4% = increased risk for diabetes (prediabetes )9 >=6.5% = diabetes9 Goals for glycemic control (ADA 2016) < 7.0% Target for non adults with diabetes. More or less stringent targets may be appropriate for individual patients. <7.5% Target for Children and adolescents with type 1 diabetes. Specimen Blood Performing Organization Address City/[facility]/Zipcode Phone Number [facility] DEPARTMENT OF PATHOLOGY [address] [facility] [place] [address] AND [facility] [address] [facility] [place] [address] [facility] Comprehensive metabolic panel (02/24/2020 12:48 PM CDT) Sodium 133 (L) 135 - 148 [facility] mEq/L [facility] Potassium 6.7 (HH) 3.5 - 5.0 [facility] Comment: mEq/L [place] Final results called to and read back by MAYRA CHAUDHARY @[facility] 02/24/2020 HOSPITAL 14:15 KO. Result released per nurse request. Chloride 95 (L) 98 - 112 [facility] mEq/L [facility] CO2 25 24 - 31 mEq/L [facility] Anion gap 13@ANIO 7 - 15 mEq/L [facility] BUN 18 8 - 23 mg/dL [facility] Creatinine 1.00 (H) 0.50 - 0.90 [facility] mg/dL [facility] Glucose 109 (H) 65 - 99 mg/dL [facility] Calcium 9.7 8.8 - 10.2 [facility] mg/dL [facility] Protein 6.5 6.3 - 8.3 [facility] g/dL [facility] Albumin 3.8 3.5 - 5.0 [facility] g/dL [facility] A/G ratio 1.4 0.7 - 3.8 [facility] Alkaline phosphatase 37 35 - 104 U/L [facility] AST 18 10 - 35 U/L [facility] ALT 18 5 - 50 U/L [facility] Total bilirubin 0.4 0.2 - 1.2 [facility] mg/dL [facility] Specimen Blood Performing Organization Address City/[facility]/Zipcode Phone Number [facility] DEPARTMENT OF PATHOLOGY [id number] [place] [address]. [facility] [address] AND [facility] [id number] [place] [address] HOSPITAL [place] < 1 Hour (11/02/2019 10:26 AM LIVESTOCK FEEDER)Only the most recent of4 results within the time period is included. Specimen Narrative Performed At EXAMINATION: OR FL < 1 HOUR [facility] CLINICAL HISTORY: Fluoroscopic guidance. IMPRESSION: Fluoroscopy was provided. No radiologist present. Pl ease see procedure report for discussion of procedure, find ings. [facility]-[id number] Procedure Note Interface, Radiology Results Incoming - 11/02/2019 10:34 AM LIVESTOCK FEEDER EXAMINATION: OR FL < 1 HOUR CLINICAL HISTORY: Fluoroscopic guidance. IMPRESSION: Fluoroscopy was provided. No radiologist present. Please see procedure report for discussion of procedure, findings. [facility]-[id number] Performing Organization Address City/[facility]/Zipcode Phone Number [employer] [address] [place] [address] POC glucose (11/02/2019 8:10 AM LIVESTOCK FEEDER)Only the most recent of4 resultswithin the time period is included. Pathologist Sig nature POC glucose 144 (H) 65 - 99 mg/dL [facility] Comment: [facility] Professor In Family Studies Name: Zachary Chambers Device ID: [id number] Chartable: RN Notified Specimen Performing Organization Address City/State/Zipcode Phone Number [facility] DEPARTMENT OF PATHOLOGY [id number] [place] [address]. [facility] [address] AND [facility] [address] [place] [address] [facility] XR Shoulder 2+ Vw Right (03/18/2019 3:53 PM CDT) Specimen Narrative Performed At EXAMINATION: XR SHOULDER 2 VW RIGHT [facility] CLINICAL HISTORY: M25.511 Pain in righ t shoulder, Shoulder Pain COMPARISON: None. IMPRESSION: Extensive degenerative changes at the glenohumeral dai nt with moderate spurring at the acromioclavicular joint. No acute osseous abnormality or malalign ment. [id number] Procedure Note Interface, Radiology Results Incoming - 03/18/2019 4:19 PM CDT EXAMINATION: XR SHOULDER 2 VW RIGHT CLINICAL HISTORY: M25.511 Pain in right shoulder, Shoulder Pain COMPARISON: None. IMPRESSION: Extensive degenerative changes at the gl enohumeral joint with moderate spurring at the acromioclavicular joint. No acute osseous abnormality or malalign ment. [id number] Performing Organization Address [facility]/Zipcode Phone Number [facility] [address] [place] [address] XR Hip 2-3 View Right (03/18/2019 3:52 PM CDT) Specimen Narrative Performed At EXAMINATION: XR HIP 2-3 VIEWS RIGHT [facility] CLINICAL HISTORY: M25.559 Pain in unsp ecified hip, Hip Pain COMPARISON: None available at this gumaro e. IMPRESSION: Moderately severe osteoarthritis of the right hip join t. There is narrowing of the superomedial joint space with subchon dral sclerosis and cystic change. Small osteophytes are als o seen. No fracture, malalignment, or osseous destructive lesi on identified. Bones appear demineralized. Procedure Note Hm Interface, Radiology Results Incoming - 03/18/2019 4:26 PM CDT EXAMINATION: XR HIP 2-3 VIEWS RIGHT CLINICAL HISTORY: M25.559 Pain in unspe cified hip, Hip Pain COMPARISON: None available at this time . IMPRESSION: Moderately severe osteoarthritis of the right hip joint. There is narrowing of the superomedial joint space with subchondral sclerosis and cystic change. Small osteophytes are also seen. No fracture, malalignment, or osseous de structive lesion identified. Bones appear demineralized. 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
[2020-02-24] MEDS ORDERED: ASPIRIN 81 MG CHEWABLE TABLET ONE (18:49)
[2020-02-24] MEDS ORDERED: FAMOTIDINE 20 MG/2 ML VIAL IV ONE (18:50)
--- NOTE | 2020-02-24 19:29 | RAD REPORT ---
EXAM DESCRIPTION: Kylie Single View02/24/2020 7:02 pm CLINICAL HISTORY: Chest pain COMPARISON: 2019 FINDINGS: The lungs appear clear of acute infiltrate. The heart is normal size . Patient is in a poor degree of inspiration
[2020-02-24 19:49] LABS: ALT/SGPT 22 U/L (12-78); AST/SGOT 10 U/L (15-37); Albumin 3.1 g/dL (3.4-5.0); Alkaline Phosphatase 38 U/L (45-117); Bilirubin Direct 0.1 mg/dL (0-0.2); Bilirubin Total 0.4 mg/dL (0.2-1.0); Lipase 110 U/L (73-393); Magnesium 1.9 mg/dL (1.8-2.4); NT PRO-BNP 656 pg/mL (<450); Protein, Total 6.4 g/dL (6.4-8.2); Troponin (Emerg Dept Use Only) < 0.02 ng/mL (0.0-0.045)
[2020-02-24 19:50] LABS: Potassium 4.5 mmol/L (3.5-5.1)
[2020-02-24 19:53] LABS: Absolute Lymphocytes (CBC) 2.1 K/uL (0.7-4.9); Basophils % 0.4 % (0-1.3); Hematocrit 33.4 % (36.0-45.0); Lymphocytes % 22.7 % (15.3-44.8); MPV 8.5 fL (7.6-11.3); RBC Red Blood Cell Count 3.72 M/uL (3.86-4.86)
[2020-02-24 19:54] LABS: Protime INR 0.95
--- NOTE | 2020-02-24 20:02 | ER ---
Nurse's Notes [facility] Name: Caridad Chadwick Age: 84 yrs Sex: Female : 1935 Arrival Date: 02/24/2020 Time: 16:58 Bed 20 Private MD: Henry Abernathy C Diagnosis: Type 2 diabetes mellitus;Functional dyspepsia;Low back pain-chronic Presentation: 02/23 17:00 Chief complaint: Patient states: sent by the lab in [facility] for hyperkalemia. Was sv getting prelab work for a future surgery. Coronavirus screen: Proceed with normal triage. Patient denies a cough. Patient denies shortness of breath or difficulty breathing. Patient denies measured and/or subjective temperature greater than 100.4F prior to today's visit. Patient denies travel on a cruise ship or to a country the [facility] currently lists as an affected area. Patient denies contact with known and/or suspected case of COVID-19. Ebola Screen: No symptoms or risks identified at this time. Initial Sepsis Screen: Does the patient meet any 2 criteria? No. Patient's initial sepsis screen is negative. Does the patient have a suspected source of infection? No. Patient's initial sepsis screen is negative. Risk Assessment: Do you want to hurt yourself or someone else? Patient reports no desire to harm self or others. Onset of symptoms was February 24, 2020. 17:00 Method Of Arrival: Ambulatory sv 17:00 Acuity: ZOIE 4 sv 18:35 Note Pt states "I've been also having chest pain for a while but Dr. Abernathy said it was aa5 my acid reflux but I don't think so because it's under my breasts". 18:35 Acuity: ZOIE 3 aa5 Triage Assessment: 17:03 General: Appears in no apparent distress. comfortable, Behavior is calm, cooperative, sv appropriate for age. Pain: Denies pain. Neuro: Level of Consciousness is awake, alert, obeys commands, Gait is steady, with her walker. Respiratory: Respiratory effort is even, unlabored. Historical: - Allergies: 17:00 Codeine; sv - Home Meds: 18:47 prednisone 5 mg Oral tab once daily [Active]; carvedilol 12.5 mg Oral tab 2 times per aa5 day [Active]; levothyroxine 88 mcg tab once daily [Active]; metformin 1,000 mg oral tab 2 times per day [Active]; omeprazole 20 mg Oral cpDR once daily [Active]; glipizide 2.5 mg Oral tr24 once daily [Active]; Cymbalta 30 mg oral cpDR 1 cap once daily [Active]; rosuvastatin 5 mg Oral tab once daily [Active]; olmesartan oral oral once daily [Active]; Simponi ARIA intravenous intravenous every 8 wks for Rheumatoid Arthritis [Active]; - PMHx: 17:00 Diabetes - NIDDM; GERD; Diverticulitis; Hypertension; Hypothyroidism; Rheumatoid sv Arthritis; - PSHx: 17:00 left foot; sv - Immunization history:: Adult Immunizations. - Social history:: Smoking status: . - Family history:: not pertinent. Screenin:40 Abuse screen: Denies threats or abuse. Nutritional screening: No deficits noted. tw2 Tuberculosis screening: No symptoms or risk factors identified. Fall Risk Secondary diagnosis (15 points) impaired mobility. Assessment: 19:00 General: Appears in no apparent distress. comfortable, Behavior is calm, cooperative, ca1 appropriate for age. Pain: Denies pain. Neuro: Level of Consciousness is awake, alert, obeys commands, Oriented to person, place, time, situation. Cardiovascular: Heart tones S1 S2 present Capillary refill < 3 seconds Patient's skin is warm and dry. Respiratory: Airway is patent Respiratory effort is even, unlabored, Respiratory pattern is regular, symmetrical, Breath sounds are clear. GI: Abdomen is round non-distended, Bowel sounds present X 4 quads. Abd is soft and non tender X 4 quads. : Urine is clear. EENT: No signs and/or symptoms were reported regarding the EENT system. Derm: Skin is intact, is healthy with good turgor, Skin is pink, warm \\T\\ dry. Musculoskeletal: Circulation, motion, and sensation intact. Capillary refill < 3 seconds. 20:09 Reassessment: Patient appears in no apparent distress at this time. Patient and/or ca1 family updated on plan of care and expected duration. Pain level reassessed. Patient is alert, oriented x 3, equal unlabored respirations, skin warm/dry/pink. Vital Signs: 17:00 BP 137 / 70; Pulse 85; Resp 20; Temp 98(O); Pulse Ox 98% ; Height 5 ft. 1 in. (154.94 sv cm); 19:00 BP 154 / 80; Pulse 85; Resp 16 S; Pulse Ox 96% on R/A; ca1 20:09 BP 111 / 85; Pulse 81; Resp 17 S; Pulse Ox 98% on R/A; ca1 ED Course: 16:58 Patient arrived in ED. mr 16:58 Henry Abernathy MD is Private Physician. mr 16:59 Arm band placed on. sv 17:03 Triage completed. sv 18:28 South Carey MD is Attending Physician. nuris 18:30 Bed in low position. Call light in reach. quality assurance monitor body on. Pulse ox on. NIBP on. tw2 Warm blanket given. 18:40 Flaquita Meadows RN is Primary Nurse. tw2 18:57 Missed attempt(s): 20 gauge in right antecubital area. Bleeding controlled, band aid tw2 applied, catheter tip intact. 19:02 XRAY Chest (1 view) In Process Unspecified. EDMS 19:20 Inserted saline lock: 22 gauge in left forearm, using aseptic technique. Blood mt collected. 19:59 Henry Abernathy MD is Referral Physician. nuris 20:08 No provider procedures requiring assistance completed. ca1 20:25 IV discontinued, intact, bleeding controlled, No redness/swelling at site. Pressure ca1 dressing applied. Administered Medications: 19:00 Drug: Aspirin 162 mg Route: PO; em 20:14 Follow up: Response: No adverse reaction ca1 19:32 Drug: Pepcid 20 mg Route: IVP; Site: left forearm; ca1 20:14 Follow up: Response: No adverse reaction ca1 Outcome: 20:02 Discharge ordered by . nuris 20:25 Discharged to home ambulatory. ca1 20:25 Condition: stable 20:25 Discharge instructions given to patient, Instructed on discharge instructions, follow up and referral plans. Demonstrated understanding of instructions, follow-up care. 20:27 Patient left the ED. ca1 Addendum: 02/28/2020 16:37 Addendum: Culture Results: Patient was not prescribed antibiotics at discharge. Report i w given to BENJAMÍN for further evaluation and then to flatwork finisher for follow up with patient. Phone call Attempt #1 pt has no urinary s/s, no further intervention needed. Signatures: Dispatcher [employer] EDSteffi Vance RN South Hogan MD MD cha Rivera, Brooke mr Craven, Adeel, RN RN Tsering Abbott, RN Susan Taylor, SHARLENE RN aa5 Flaquita Meadows RN RN 2 Jose [facility], SHARLENE Sheth RN ca1 Corrections: (The following items were deleted from the chart) 02/23 17:03 17:00 Pulse 85bpm; Resp 20bpm; Pulse Ox 98%; Temp 98F Oral; Height 5 ft. 1 in.; [facility] 20:12 20:09 BP 111 / 95; Pulse 81bpm; Resp 17bpm; Spontaneous; Pulse Ox 98% RA; ca1 ca1
--- NOTE | 2020-02-24 20:03 | EDPHYS ---
Physician Documentation [facility] Name: Caridad Chadwick Age: 84 yrs Sex: Female : 1935 Arrival Date: 02/24/2020 Time: 16:58 Bed 20 Private MD: Henry Wen C ED Physician South Carey HPI: 02/23 19:14 This 84 yrs old Female presents to ER via Ambulatory with complaints of nuris Abnormal Lab Results. 19:14 The patient or guardian reports chest pain that is located primarily in the substernal nuris area, epigastric area. Onset: 7 day(s) ago. The patient presents with abdominal pain in the upper abdomen, at night. Onset: The symptoms/episode began/occurred 7 day(s) ago. The pain does not radiate. The symptoms do not radiate. Associated signs and symptoms: none. Modifying factors: The symptoms are alleviated by nothing, the symptoms are aggravated by nothing. The chest pain is described as dull. Historical: - Allergies: 17:00 Codeine; sv - Home Meds: 18:47 prednisone 5 mg Oral tab once daily [Active]; carvedilol 12.5 mg Oral tab 2 times per aa5 day [Active]; levothyroxine 88 mcg tab once daily [Active]; metformin 1,000 mg oral tab 2 times per day [Active]; omeprazole 20 mg Oral cpDR once daily [Active]; glipizide 2.5 mg Oral tr24 once daily [Active]; Cymbalta 30 mg oral cpDR 1 cap once daily [Active]; rosuvastatin 5 mg Oral tab once daily [Active]; olmesartan oral oral once daily [Active]; Simponi ARIA intravenous intravenous every 8 wks for Rheumatoid Arthritis [Active]; - PMHx: 17:00 Diabetes - NIDDM; GERD; Diverticulitis; Hypertension; Hypothyroidism; Rheumatoid sv Arthritis; - PSHx: 17:00 left foot; sv - Immunization history:: Adult Immunizations. - Social history:: Smoking status: . - Family history:: not pertinent. ROS: 19:14 Constitutional: Negative for fever, chills, and weight loss, Eyes: Negative for injury, nuris pain, redness, and discharge, ENT: Negative for injury, pain, and discharge, Neck: Negative for injury, pain, and swelling, Respiratory: Negative for shortness of breath, cough, wheezing, and pleuritic chest pain, : Negative for injury, bleeding, discharge, and swelling, MS/Extremity: Negative for injury and deformity, Skin: Negative for injury, rash, and discoloration, Neuro: Negative for headache, weakness, numbness, tingling, and seizure, Psych: Negative for depression, anxiety, suicide ideation, homicidal ideation, and hallucinations, Allergy/Immunology: Negative for hives, rash, and allergies, Endocrine: Negative for neck swelling, polydipsia, polyuria, polyphagia, and marked weight changes. 19:14 Cardiovascular: Positive for chest pain. 19:14 Abdomen/GI: Positive for abdominal pain, of the epigastric area, right upper quadrant and left upper quadrant. 19:14 MS/extremity: Negative for pain, swelling, tenderness. Exam: 19:14 Constitutional: This is a well developed, well nourished patient who is awake, alert, nuris and in no acute distress. Head/Face: Normocephalic, atraumatic. Eyes: Pupils equal round and reactive to light, extra-ocular motions intact. Lids and lashes normal. Conjunctiva and sclera are non-icteric and not injected. Cornea within normal limits. Periorbital areas with no swelling, redness, or edema. ENT: Nares patent. No nasal discharge, no septal abnormalities noted. Tympanic membranes are normal and external auditory canals are clear. Oropharynx with no redness, swelling, or masses, exudates, or evidence of obstruction, uvula midline. Mucous membranes moist. Neck: Trachea midline, no thyromegaly or masses palpated, and no cervical lymphadenopathy. Supple, full range of motion without nuchal rigidity, or vertebral point tenderness. No Meningismus. Chest/axilla: Normal chest wall appearance and motion. Nontender with no deformity. No lesions are appreciated. Cardiovascular: Regular rate and rhythm with a normal S1 and S2. No gallops, murmurs, or rubs. Normal PMI, no JVD. No pulse deficits. Respiratory: Lungs have equal breath sounds bilaterally, clear to auscultation and percussion. No rales, rhonchi or wheezes noted. No increased work of breathing, no retractions or nasal flaring. Abdomen/GI: Soft, non-tender, with normal bowel sounds. No distension or tympany. No guarding or rebound. No evidence of tenderness throughout. Back: No spinal tenderness. No costovertebral tenderness. Full range of motion. Female : Normal external genitalia. Skin: Warm, dry with normal turgor. Normal color with no rashes, no lesions, and no evidence of cellulitis. 19:14 Musculoskeletal/extremity: DVT Exam: No signs of deep vein thrombosis. no pain, no swelling, no tenderness, negative Homans' sign noted on exam, no appreciated bluish discoloration, no erythema, no increased warmth. 19:19 ECG was reviewed by the Attending Physician. [facility] Vital Signs: 17:00 BP 137 / 70; Pulse 85; Resp 20; Temp 98(O); Pulse Ox 98% ; Height 5 ft. 1 in. (154.94 sv cm); 19:00 BP 154 / 80; Pulse 85; Resp 16 S; Pulse Ox 96% on R/A; ca1 20:09 BP 111 / 85; Pulse 81; Resp 17 S; Pulse Ox 98% on R/A; ca1 MDM: 18:28 Patient medically screened. [facility] 19:18 Data reviewed: vital signs, nurses notes, lab test result(s), EKG, radiologic studies. [facility] 19:20 Differential diagnosis: abnormal EKG, acute myocardial infarction, chest wall pain, nuris cholecystitis, Cholelithiasis esophagitis, gastritis, gastroesophageal reflux disease (GERD), hiatal hernia, peptic ulcer disease, stable angina, AAA, myocardia ischemia or infarction, non-specific abd pain, urinary tract infection. 19:56 HEART Score: History: Slightly Suspicious (0), ECG: Normal (0), Age: > or = 65 years nuris (2), Risk Factors: 1 or 2 risk factors (1), [Hypercholesterolemia] [Hypertension]. The patient was given aspirin in the Emergency Department. The patient's deep vein thrombosis risk score was calculated as follows: Total Score: 0. This patient was found to be at low risk for a deep vein thrombosis by using the Well's assessment criteria. Data interpreted: android framework developer: rate is 85 beats/min, Pulse oximetry: on room air is 98 %. Test interpretation: by ED physician or midlevel provider: ECG, plain radiologic studies. ED course: dw dr wen, all labd, potassium , cardiac shaffer normal, recent ct discussed, dr wen ask to dc and have pt follow up in the office, dw pt the plan, pt comfortable with the plan. 02/23 18:29 Order name: CBC with Diff [facility] 02/23 18:29 Order name: Chem 7; Complete Time: 19:51 [facility] 02/23 18:37 Order name: LFT's; Complete Time: 19:51 [facility] 02/23 18:37 Order name: Magnesium; Complete Time: 19:51 [facility] 02/23 18:37 Order name: NT PRO-BNP; Complete Time: 19:51 [facility] 02/23 18:37 Order name: PT-INR [facility] 02/23 18:37 Order name: Troponin (emerg Dept Use Only); Complete Time: 19:51 [facility] 02/23 18:37 Order name: XRAY Chest (1 view); Complete Time: 19:51 [facility] 02/23 18:37 Order name: Lipase; Complete Time: 19:51 [facility] 02/23 20:11 Order name: Urine Dipstick--Ancillary (enter results) [facility] 02/23 20:11 Order name: Urine Microscopic Only [facility] 02/23 20:11 Order name: Urine Culture [facility] 02/23 18:29 Order name: EKG; Complete Time: 18:29 [facility] 02/23 18:29 Order name: EKG - Nurse/Tech; Complete Time: 18:35 [facility] 02/23 18:29 Order name: Urine Dipstick-Ancillary (obtain specimen); Complete Time: 20:13 [facility] 02/23 18:37 Order name: Cardiac monitoring; Complete Time: 19:21 [facility] 02/23 18:37 Order name: IV Saline Lock; Complete Time: 19:21 [facility] 02/23 18:37 Order name: Labs collected and sent; Complete Time: 19:21 [facility] 02/23 18:37 Order name: O2 Per Protocol; Complete Time: 19:21 [facility] 02/23 18:37 Order name: O2 Sat Monitoring; Complete Time: 19:21 [facility] EC:19 Rate is 80 beats/min. Rhythm is regular. QRS Mackey is Normal. [place] interval is normal. QRS nuris interval is normal. QT interval is normal. No Q waves. T waves are Normal. No ST changes noted. Clinical impression: NSR w/ Non-specific ST/T Changes and No evidence of ischemia. Interpreted by me. Reviewed by me. Administered Medications: 19:00 Drug: Aspirin 162 mg Route: PO; em 20:14 Follow up: Response: No adverse reaction ca1 19:32 Drug: Pepcid 20 mg Route: IVP; Site: left forearm; ca1 20:14 Follow up: Response: No adverse reaction ca1 Disposition: 02/24/20 20:02 Discharged to Home. Impression: Type 2 diabetes mellitus, Functional dyspepsia, Low back pain - chronic . - Condition is Stable. - Discharge Instructions: Back Pain, Adult, Chronic Back Pain, Type 2 Diabetes Mellitus, Diagnosis, Adult, Musculoskeletal Pain, Back Pain, Adult, [id number], Type 2 Diabetes Mellitus, Diagnosis, Adult, [id number]. - Medication Reconciliation Form, Thank You Letter, Antibiotic Education, Prescription Opioid Use form. - Follow up: Henry Wen MD; When: 2 - 3 days; Reason: Recheck today's complaints, Continuance of care, Re-evaluation by your physician. - Problem is new. - Symptoms have improved. Signatures: Dispatcher [employer] Steffi Cooper, RN RN South Mukherjee MD MD cha Munoz, Edgar RN Susan Prieto RN RN aa5 Flaquita Meadows RN RN tw2 Meryl Macdonald RN RN ca1 Corrections: (The following items were deleted from the chart) 20:27 20:02 02/24/2020 20:02 Discharged to Home. Impression: Type 2 diabetes mellitus; ca1 Functional dyspepsia; Low back pain - chronic . Condition is Stable. Forms are Medication Reconciliation Form, Thank You Letter, Antibiotic Education, Prescription Opioid Use. Follow up: Henry Wen; When: 2 - 3 days; Reason: Recheck today's complaints, Continuance of care, Re-evaluation by your physician. Problem is new. Symptoms have improved. nuris
[2020-02-24 20:48] LABS: Urine Bacteria 20-50 /HPF (<20); Urine Culture Reflex Order NOT NEEDED; Urine Mucus 2+ /HPF (NONE SEEN); Urine RBC <5 /HPF (NONE SEEN)
[2020-02-24 20:49] LABS: Urine Blood NEGATIVE (NEG); Urine Glucose NEGATIVE (NEG); Urine Protein NEGATIVE (NEG); Urine Specific Gravity 1.025 (1.005-1.030)
--- NOTE | 2020-02-25 12:18 | EKG ---
Test Date: 2020-02-24 Test Time: 18:34:50 Drying Unit Felting Machine Operator: TWILA MEASUREMENT RESULTS: Intervals: Rate: 80 UT: 152 QRSD: 80 QT: 360 QTc: 415 [place]: P: 19 UT: 152 QRS: -38 T: 5 INTERPRETIVE STATEMENTS: Normal sinus rhythm Left axis deviation Possible Anterolateral infarct, age undetermined Abnormal ECG Compared to ECG 10/27/2018 10:34:58 Myocardial infarct finding now present Electronically Signed On 02-25-20 12:17:42 CDT by Khai Espinal
== END 2020-02-24 20:27 | disposition home or self-care (01) ==
LOC: ER 16:53
DX: K30 Functional dyspepsia (principal); M54.5 Low back pain; E11.9 Type 2 diabetes mellitus without complications; I10 Essential (primary) hypertension; E03.9 Hypothyroidism, unspecified; Z88.5 Allergy status to narcotic agent
CPT/HCPCS: 36415; 71045; 80048; 80076; 81003; 81015; 83690; 83735; 83880; 84484; 85025; 85610; 87077; 87086; 87088; 87186; 93005; 96374; 99284

== ENCOUNTER 2020-07-28 09:58 | Emergency (ER) | payer OTHER ==
--- OUTSIDE RECORDS SUMMARY | 2020-07-28 10:02 | XMS REPORT | Clinical Summary ---
:1935 Author Organization [facility] Address [address] [place] [address] Care Team Providers Name Role Phone Murtaza Abernathy MD Primary Care Provider Allergies Active Allergy Reactions Severity Noted Date Comments Codeine Other (See Comments) 03/07/2017 BRITTANYS Murtaza DEL TORO PER PT Medications Medication Sig Dispensed Refills Start End Date Status Date RESTASIS 0.05 % Administer 1 6 A ctive ophthalmic drop to both 6 emulsion eyes daily. rosuvastatin Take 5 mg by 0 Acti ve (CRESTOR) 5 MG mouth nightly. tablet golimumab (SIMPONI Infuse into a 0 Active ARIA IV) venous catheter. Every 8 weeks predniSONE Take 5 mg by 0 Active (DELTASONE) 5 mg mouth daily. tablet olmesartan Take 40 mg by 0 Activ e (BENICAR) 40 MG mouth daily. tablet levothyroxine Take 75 mcg by 0 A ctive (SYNTHROID, mouth daily. LEVOXYL) 75 mcg tablet metFORMIN Take 500 mg by 0 Activ e (GLUCOPHAGE) 500 mouth 2 (two) mg tablet times a day with meals. omeprazole [...] e (CYMBALTA) 30 MG mouth daily. capsule methocarbamoL Take 1 tablet 90 tablet 0 Ac tive (Robaxin-750) 750 (750 mg total) 0 MG tablet by mouth 3 (three) times a day. traMADoL (ULTRAM) Take 50 mg by 0 Active 50 mg mouth every 6 tabletIndications: (six) hours as acute pain needed for moderate pain .acute pain. diclofenac Apply topically 1 Tube 2 Act martha (VOLTAREN) 1 % 4 (four) times 0 gelIndications: a day. Apply 2 Arthritis of right gms to affected glenohumeral area 4 times a joint, day Nontraumatic incomplete tear of right rotator cuff traMADoL (ULTRAM) TAKE 1 TABLET 40 tablet 1 08/15/20 Active 50 mg tablet BY MOUTH EVERY 0 20 6 HOURS NEEDED FOR PAIN multivitamin with Take 1 tablet 0 02/24/20 Discontinued minerals tablet by mouth daily. 20 carvedilol (COREG) TK 1 T PO BID 3 0 Discontinued 6.25 MG tablet 7 20 DULoxetine nightly. 0 02/24/20 Discontin ued (CYMBALTA) 60 MG 7 20 capsule metFORMIN Take 1,000 mg 0 02/24/20 Discon tinued (GLUCOPHAGE) 1,000 by mouth 2 20 mg tablet (two) times a day with meals. amLODIPine Take 5 mg by 0 04/16/20 Discon tinued (NORVASC) 5 mg mouth nightly. 20 tablet naproxen sodium Take 220 mg by 0 02/24/20 Discontinued (ALEVE) 220 MG mouth every 12 20 tablet (twelve) hours as needed for mild pain. LYRICA 25 mg Take 25 mg by 3 10/31/19 Dis continued capsule mouth 2 (two) 9 20 times a day. linaGLIPtin Take 5 mg by 0 02/24/20 Disco ntinued (TRADJENTA) 5 mg mouth daily 20 tablet with breakfast. naproxen Take 1 tablet 60 tablet 0 02/24/20 Discon tinued (NAPROSYN) 500 MG (500 mg total) 0 20 tablet by mouth 2 (two) times a day. nitrofurantoin, Take 1 capsule 14 capsule 0 04/12/20 macrocrystal-monoh (100 mg total) 0 20 ydrate, (Macrobid) by mouth 2 100 MG capsule (two) times a day for 7 days. traMADoL (ULTRAM) chronic pain. 40 tablet 0 04/19/20 Discontinued 50 mg Take 1 tablet 0 20 (Reord er) tabletIndications: by mouth every chronic pain 6-8 hours as needed for pain. sulfamethoxazole-t Take 1 tablet 20 tablet 0 0 Discontinued rimethoprim by mouth 2 0 20 (Stop T aking at (Bactrim DS) (two) times a Dis charge) 800-160 mg per day for 10 tablet days. traMADoL (ULTRAM) acute pain, 60 tablet 0 04/29/20 50 mg chronic pain. 0 20 tabletIndications: Take 1 tablet acute pain, by mouth every chronic pain 4-6 hours as needed for pain. amoxicillin-pot Take 1 tablet 24 tablet 0 05/01/20 clavulanate (500 mg total) 0 20 (Augmentin) by mouth 2 500-125 mg per (two) times a tablet day for 12 days. pregabalin Take 1 capsule 60 capsule 0 06/29/20 Exp ired (Lyrica) 50 MG (50 mg total) 0 20 capsule by mouth 2 (two) times a day for 30 days. traMADoL (Ultram) Take 1 tablet 40 tablet 1 07/26/20 Discontinued 50 mg (50 mg total) 0 20 tabletIndications: by mouth every chronic pain 6 (six) hours as needed for moderate pain .chronic pain. Active Problems Problem Noted Date Hyperlipidemia 04/19/2020 DM (diabetes mellitus) 04/19/2020 UTI (urinary tract infection) 04/19/2020 Spondylolisthesis at L4-L5 level 11/30/2019 Overview: Added automatically from request for andrés muñoz [id number] Spondylolisthesis at L5-S1 level 11/30/2019 Overview: Added automatically from request for andrés muñoz [id number] Trochanteric bursitis of right hip 11/30/2019 Overview: Added automatically from request for andrés muñoz [id number] Diverticulitis 03/07/2017 Abscess of sigmoid colon 02/22/2017 [...] Encounters Date Type Specialty Care Team Description 07/26/2020 Refill Orthopedic Guille Renee, Surgery 07/25/2020 Travel 07/24/2020 Hospital Encounter Radiology Sonny Guaman Spondylo listhesis at L5-S1 level; MD Maria Esther Other spondylos is with radiculopathy, lumbar region; Status post lum bar surgery 07/23/2020 Travel 07/02/2020 Office Visit Orthopedic Sonny Guaman Other spondylo sis with radiculopathy, lumbar region (Primary Dx); Surgery MD Maria Esther Spondylolisthes is at L5-S1 level; Status post lum bar surgery 07/02/2020 Travel 06/06/2020 Telephone Orthopedic Stephanie Austin Surgery MA 06/05/2020 Office Visit Orthopedic Guille Renee, Acute pain of both knees (Primary Dx); Surgery Primary osteoar thritis of left knee; Spondylolisthes is at L5-S1 level; Spondylolisthes is at L4-L5 level; Primary osteoar thritis of right knee 06/05/2020 Travel 05/30/2020 Office Visit Orthopedic Sonny Guaman Other spondylo sis with radiculopathy, lumbar region (Primary Dx); Surgery MD Maria Esther Status post lum bar surgery; Spondylolisthes is at L4-L5 level; Spondylolisthes is at L5-S1 level 05/30/2020 Travel 05/08/2020 Office Visit Orthopedic Juan Antonio Khalil Arthritis of r ight glenohumeral joint (Primary Dx); Surgery MD Mike Nontraumatic in complete tear of right rotator cuff 05/08/2020 Travel 05/02/2020 Office Visit Orthopedic Deuce Jarvis Other spondylo sis with Surgery GARRY Polk radiculopathy, lumbar Vestigo, Shahida region (Prima ry Dx) GARRY Conklin 05/02/2020 Travel 04/23/2020 Orders Only Orthopedic Horacio Vernon Surgery Rajwinder PA 04/19/2020 Anesthesia Event General Surgery Shanice Quintana MD Sardina, Maydee, NP 04/19/2020 Surgery General Surgery Sonny Guaman LUMBAR POST JABIER Mayo MD DECOMPRESSION LAMINOTOMY L4-5 WITH FORAMINOTOMY L5 -S1 BILATERAL, AND INDICATED PROCE DURES. 04/19/2020 Hospital Encounter General Internal Sonny Guaman Othe r spondylosis with radiculopathy, lumbar region; - Medicine MD Maria Esther Spondylolisthesis at L4-L5 level; 04/20/2020 Pancho Fitzgerald Spondylolist hesis at L5-S1 level; MD Vasyl Trochanteric bu rsitis of right hip 04/17/2020 Orders Only Orthopedic Horacio Vernon Leukocytosis , Surgery Rajwinder PA unspecified typ e (Primary Dx) 04/16/2020 Pre-Admit Testing Pre-Admission Sonny Guaman Preop te sting (Primary Appointment Testing MD Maria Esther Dx) 04/16/2020 Travel 04/10/2020 Orders Only Orthopedic Deuce Jarvis Surgery Felicitas PA 04/05/2020 Pre-Admit Testing Pre-Admission Sonny Guaman Preop te sting (Primary Appointment Testing MD Maria Esther Dx) 04/05/2020 Orders Only Orthopedic Deuce Jarvis Surgery Felicitas PA 04/04/2020 Travel 04/03/2020 Orders Only Orthopedic Horacio Vernon Surgery Rajwinder PA 03/18/2020 Refill Orthopedic Horacio Vernon Surgery Rajwinder PA 02/24/2020 Hospital Encounter Radiology Sonny Guaman Pre-op t fabiola Mayo MD 02/24/2020 Pre-Admit Testing Pre-Admission Sonny Guaman Pre-op t estjermaine (Primary Appointment Testing MD Maria Esther Dx) 02/24/2020 Office Visit Orthopedic Sonny Guaman Other spondylo sis with radiculopathy, lumbar region (Primary Dx); Surgery MD Maria Esther Spondylolisthes is at L4-L5 level; Spondylolisthes is at L5-S1 level 02/24/2020 Telephone Orthopedic Horacio Vernon Surgery Rajwinder PA 02/24/2020 Travel 02/21/2020 Travel 02/16/2020 Travel 02/09/2020 Travel 01/06/2020 Travel 01/03/2020 Transcribe Orders Orthopedic Raj Guamanrey Other spo ndylosis with radiculopathy, lumbar region (Primary Dx); Surgery MD Maria Esther Spondylolisthes is at L4-L5 level; Spondylolisthes is at L5-S1 level; Trochanteric bu rsitis of right hip 01/02/2020 Travel 11/30/2019 Transcribe Orders Orthopedic Sonny Guaman Other spo ndylosis with radiculopathy, lumbar region (Primary [...] General Surgery Preeti Bobo MD Cheema, Ivelisse, HEAD TELLER 11/02/2019 Surgery General Surgery Peccora, RIGHT GENICU LAR NERVE Sanford Pike MD 11/02/2019 Hospital Encounter General Surgery Sanford Thorpe MD 09/22/2019 Surgery General Surgery Peccora, RIGHT GENICU LAR NERVE Sanford Pike MD 09/22/2019 Anesthesia Event General Surgery Danette Ortez MD Hurd, Sherryl Ann, NP 09/22/2019 Hospital Encounter General Surgery Sanford Thorpe MD 07/28/2019 Anesthesia Event General Surgery Danette Ortez MD Cheema, Ivelisse, HEAD TELLER 07/28/2019 Surgery General Surgery Peccora, RIGHT GENICU LAR NERVE Sanford LONG OR DALI Pike MD INDICATED PROCE DURES 07/28/2019 Hospital Encounter General Surgery Sanford Thorpe MD after 07/28/2019 Surgical History Surgery Date Site/Laterality Comments HYSTERECTOMY BLADDER SURGERY repair CATARACT EXTRACTION FOOT SURGERY Left ACHILLES TENDON REPAIR Left KNEE SURGERY 09/18/2016 - Right 10/18/2016 ORTHOPEDIC SURGERY Left achilles repa ir INJECTION, STEROID, 02/17/2019 Spine Lumbar/Bilateral Proce dure: LUMBAR SPINE, LUMBAR, EPIDURAL, TRASNFO RAMINAL EPIDURAL SINGLE STEROID INJECTIO N TARGETING THE BI LATERAL L4-L5 SEGMENTS O R OTHER INDICATED PROCED URES; Surgeon: Sanford Thorpe MD; Location: [facility] Main OR; Service: Pa in Management; Lat erality: Bilateral; INJECTION, HIP 04/14/2019 Hip/Right Procedure: INTRA-ARTICULAR INJECTION TARGET ING THE RIGHT HIP OR OT HER INDICATED PROCED URES; Surgeon: Sanford Thorpe MD; Location: [facility] Main OR; Service: Pa in Management; Lat erality: Right; INJECTION, KNEE 07/28/2019 Knee/Right Procedure: RIGHT GENICULAR NERVE BLOCK KNEEE OR OTHER I NDICATED PROCEDURES; Andrés geon: Jinny Thorpe MD; Loc ation: [facility] Main OR; S ervice: Pain Management; Laterality: Righ t; INJECTION, KNEE 09/22/2019 Knee/Right Procedure: RIGHT GENICULAR NERVE BLOCK; Surgeon: Sanford Thorpe MD; Location: [facility] Main OR; Service: Pa in Management; Lat erality: Right; RADIOFREQUENCY THERMAL 11/02/2019 Knee/Right Procedure : RIGHT COAGULATION OR GENICULAR NERVE RFTC; CRYOTHERAPY, FACET Surgeon: Lou nguyen, JOINT, LUMBAR Sanford Pike MD; Location: [facility] Main OR; Service: Pa in Management; Lat erality: Right; JOINT REPLACEMENT 09/18/2016 - Right TKA 10/18/2016 COLONOSCOPY LAMINOTOMY, LUMBAR 04/19/2020 Spine Lumbar/Bilateral Proced ure: LUMBAR POSTERIOR DECOMP RESSION LAMINOTOMY L4-5 WITH FORAMINOTOMY L5- S1 BILATERAL, AND I NDICATED PROCEDURES.; Lange rgeon: Sonny Guaman MD; Location: [facility] ain OR; Service: Orthope dics; Laterality: Bila teral; Medical History Medical History Date Comments H/O breast biopsy 2007 left benign Hypertension Hypothyroidism Arthritis Hyperlipidemia Hypercholesteremia Anesthesia "hard to wake up aft er general anesthesia" Slow to wake up after anesthesia Wears reading eyeglasses Rheumatoid arthritis (HCC) Dry eyes, bilateral Diabetes mellitus (HCC) FBS around 110 Umbilical hernia 2018 Hard of hearing has hearing aids, do es not wear often to being uncomfortable Autoimmune disease (HCC) Type 2 diabetes mellitus (HCC) Hearing aid worn Family History Medical History Relation Name Comments [...] Assigned at Date Recorded Not on file COVID-19 Exposure Response Date Recorded In the last month, have you been in contact with No / Unsure 07/25/2020 9:36 AM CDT someone who was confirmed or suspected to have Coronavirus / COVID-19? Obstetrics History Grav Para Term Pre Abrt (TAB) (SAB) (Ect) Mult Lvng Comments 3 3 3 0 0 0 0 0 0 3 Date Outcome GA Total Labor/2nd/3rd Weight Sex Delivery Anes PTL Anna A 1 A5 Name Clin Labor Term Term Term Last Filed Vital Signs Vital Sign Reading Time Taken Comments Blood Pressure 141/63 04/20/2020 11:34 AM CDT Pulse 72 04/20/2020 11:34 AM CDT Temperature 36.4 C (97.6 F) 04/20/2020 11:34 AM CDT Respiratory Rate 19 04/20/2020 11:34 AM CDT Oxygen Saturation 95% 04/20/2020 11:34 AM CDT Inhaled Oxygen Concentration - - Weight 66.2 kg (146 lb) 06/05/2020 1:10 PM CDT Height 154.9 cm (5' 1") 06/05/2020 1:10 PM CDT Body Mass Index 27.59 06/05/2020 1:10 PM CDT Plan of Treatment Date Type Specialty Care Team Description 08/17/2020 Office Visit [place] [address] [place], [place] [phone] Health Maintenance Due Date Last Done Comments DIABETIC RETINAL EYE EXAM 1935 DIABETIC FOOT EXAM 1945 URINE MICROALBUMIN 1945 SHINGLES VACCINES (#1) 1983 65+ PNEUMOCOCCAL VACCINE (1 of 1 - PPSV23) 1998 INFLUENZA VACCINE 05/19/2020 Implants Implanted Type Area Radio Control Crane Operator Device Shelf Model / Identifier Expiration Date Ser ial / Lot Screw-06/19/2015 Screw Left: Foot Implanted: 06/19/2015 (Quantity not on file) Plate Description:Right ankle plate as per pt Procedures Procedure Name Priority Date/Time Associated Diagnosis Comme nts MRI LUMBAR SPINE W WO Routine 07/24/2020 3:04 Spondylolisthes is at Results for CONTRAST PM CDT L5-S1 level this procedure Other spondylosis with are i n the radiculopathy, lumbar result s region section. Status post lumbar surgery POC CREATININE Routine 07/24/2020 2:03 Results f or PM CDT this procedure are in the results section. ESTIMATED GFR Routine 07/24/2020 2:03 Results fo r PM CDT this procedure are in the results section. XR KNEE 4+ VW Routine 06/05/2020 1:19 Acute pain of both knee s Results for BILATERAL PM CDT this procedure are in the results section. FL ARTHROCENTESIS Routine 05/08/2020 1:10 Arthritis of right Results for ASPIR&/INJ MAJOR PM CDT glenohumeral rajwinder int this procedure JT/BURSA W/O US Nontraumatic incomplete a re in the tear of right rotator result s cuff section. ESTIMATED GFR Routine 04/20/2020 6:30 Results fo r AM CDT this procedure are in the results section. HC COMPLETE BLD COUNT Routine 04/20/2020 6:30 Re sults for W/AUTO DIFF AM CDT this procedure are in the results section. BASIC METABOLIC PANEL Routine 04/20/2020 6:30 Re sults for AM CDT this procedure are in the results section. POC GLUCOSE Routine 04/19/2020 11:40 Results for AM CDT this procedure are in the results section. OR FL < 1 HOUR Routine 04/19/2020 10:50 Results f or AM CDT this procedure are in the results section. URINALYSIS SCREEN AND Timed 04/19/2020 9:23 Other spondylos is with Results for MICROSCOPY, WITH AM CDT radiculopathy, lumbar th is procedure REFLEX TO CULTURE region are in the Spondylolisthesis at results L4-L5 level section. Spondylolisthesis at L5-S1 level Trochanteric bursitis of right hip URINE CULTURE Timed 04/19/2020 9:23 Results fo r AM CDT this procedure are in the results section. FL AN ELECTIVE Routine 04/19/2020 9:17 Results f or ENDOTRACHEAL AIRWAY AM CDT this pro cedure are in the results section. POC GLUCOSE Routine 04/19/2020 8:28 Results for AM CDT this procedure are in the results section. POC GLUCOSE Routine 04/19/2020 8:26 Results for AM CDT this procedure are in the results section. POC GLUCOSE Routine 04/19/2020 8:25 Results for AM CDT this procedure are in the results section. URINE CULTURE STAT 04/19/2020 7:54 Results fo r AM CDT this procedure are in the results section. URINALYSIS SCREEN AND STAT 04/19/2020 7:30 Re sults for MICROSCOPY, WITH AM CDT this proced ure REFLEX TO CULTURE are in the results section. URINE CULTURE Routine 04/16/2020 1:13 Results fo r PM CDT this procedure are in the results section. URINALYSIS SCREEN AND Routine 04/16/2020 12:17 Preop testing R esults for MICROSCOPY, WITH PM CDT this proced ure REFLEX TO CULTURE are in the results section. HEMOGLOBIN A1C Routine 04/16/2020 12:05 Preop testing Results for PM CDT this procedure are in the results section. TYPE AND SCREEN Routine 04/16/2020 12:05 Preop testing Results for PM CDT this procedure are in the results section. HC COMPLETE BLD COUNT Routine 04/16/2020 12:05 Preop testing R esults for W/AUTO DIFF PM CDT this procedure are in the results section. COVID-19 QUALITATIVE Routine 04/16/2020 11:30 Preop testing Re sults for PCR AM CDT this procedure are in the results section. COVID-19 QUALITATIVE Routine 04/05/2020 1:02 Preop testing Re sults for PCR PM CDT this procedure are in the results section. CBC WITH PLATELET AND Routine 04/03/2020 2:17 Re sults for DIFFERENTIAL PM CDT this procedure are in the results section. PROTHROMBIN TIME WITH Routine 04/03/2020 2:17 Re sults for INR PM CDT this procedure are in the results section. URINALYSIS, COMPLETE, Routine 04/03/2020 2:17 Re sults for WITH REFLEX TO PM CDT this procedur e CULTURE are in the results section. PARTIAL Routine 04/03/2020 2:17 Results for THROMBOPLASTIN TIME PM CDT this pro cedure (PTT) are in the results section. COMPREHENSIVE Routine 04/03/2020 2:17 Results fo r METABOLIC PANEL PM CDT this procedu re are in the results section. URINE CULTURE Routine 04/03/2020 2:17 Results fo r PM CDT this procedure are in the results section. XR CHEST 2 VW Routine 02/24/2020 2:03 Pre-op testing Results for PM CDT this procedure are in the results section. COVID-19 QUALITATIVE Routine 02/24/2020 1:15 Pre-op testing R esults for PCR PM CDT this procedure are in the results section. ECG PRE/POST OP Routine 02/24/2020 1:04 Pre-op testing Result s for PM CDT this procedure are in the results section. ESTIMATED GFR Routine 02/24/2020 12:48 Results fo r PM CDT this procedure are in the results section. HEMOGLOBIN A1C Routine 02/24/2020 12:48 Pre-op testing Results for PM CDT this procedure are in the results section. TYPE AND SCREEN Routine 02/24/2020 12:48 Pre-op testing Result s for PM CDT this procedure are in the results section. PROTHROMBIN TIME WITH Routine 02/24/2020 12:48 Pre-op testing Results for INR PM CDT this procedure are in the results section. PARTIAL Routine 02/24/2020 12:48 Pre-op testing Results f or THROMBOPLASTIN TIME PM CDT this pro cedure (PTT) are in the results section. COMPREHENSIVE Routine 02/24/2020 12:48 Pre-op testing Results for METABOLIC PANEL PM CDT this procedu re are in the results section. HC COMPLETE BLD COUNT Routine 02/24/2020 12:48 Pre-op testing Results for W/AUTO DIFF PM CDT this procedure are in the results section. OR FL < 1 HOUR Routine 11/02/2019 10:26 Results f or AM SHELF DRIER OPERATOR this procedure are in the results section. POC GLUCOSE Routine 11/02/2019 8:10 Results for AM SHELF DRIER OPERATOR this procedure are in the results section. OR FL < 1 HOUR Routine 09/22/2019 2:20 Results f or PM SHELF DRIER OPERATOR this procedure are in the results section. POC GLUCOSE Routine 09/22/2019 12:11 Results for PM SHELF DRIER OPERATOR this procedure are in the results section. OR FL < 1 HOUR Routine 07/28/2019 2:00 Results f or PM CDT this procedure are in the results section. POC GLUCOSE Routine 07/28/2019 12:35 Results for PM CDT this procedure are in the results section. after 07/28/2019 Results MRI Lumbar Spine W Wo Contrast (07/24/2020 3:04 PM CDT) Specimen Narrative Performed At This result has an attachment that is no t available. EXAMINATION: MRI LUMBAR SPINE W WO CONTRAST HM [facility]IANT CLINICAL HISTORY: M43.17 Spondylolisth esis lumbosacral region, M47.26 Other spondylosis with radiculopathy lumbar region, Lumbar radiculopathy status post lumbar surgery COMPARISON: MRI of the lumbar spine dated February 03, 2019 TECHNIQUE: Multiplanar MRI imaging with and without IV Gadolini um was performed. FINDINGS: There is a stable spondylotic grade 1 an terolisthesis of L5 on S1 level. Vertebral bodies are preserved. Bone marrow is unremarkable with no evidence of acute fracture or suspicious marrow-replacing les ion. . The distal spinal cord appears unremarkable. The conus medullaris terminates at the L 1-L2 level and appears unremarkable. The cauda equina is unremarkable. L1-2: Unremarkable. L2-3: Spondylotic disc space narrowing w ith diffuse disc bulge and bilateral facet arthropathy. There is no canal stenosis. There is spondylotic mild left foraminal narrowing. The right foramen is patent. There is no interval change. L3-4: Diffuse disc bulge with bilateral facet arthropathy and ligamentous thickening. There is no canal stenosis. There is spondylotic mild to moderate left foraminal narrowing. The right foramen is patent. There is no interval change. L4-5: Posterior laminectomy. There is di ffuse disc bulge with bilateral advanced facet arthropathy ligamentous hypertrophy. There are thin bilateral facet joint synovial cysts measuring on the right diana e approximately 8 mm and on the left side 6 mm in maximum AP diameter and 2 mm in thicknes s. There is no canal stenosis. There is minimal right lateral recess narrowing. There is stable mild right foraminal spondylotic narrowing. The left foramen is patent. L5-S1: Bilateral facet arthropathy. Ther e is stable grade 1 anterolisthesis of L5 on S1 level. There is advanced spondylotic disc space narrowing with endplate sclerosis. There is no canal stenosis. The lateral recesses are patent. There are severe bilateral spondylotic foraminal narrowin g with potential compromise of the exiting bilateral L5 nerve root unchanged from prior study. Visualized paraspinal soft tissues are unremarkable. IMPRESSION: Posterior laminectomy at L4-L5 level as detailed above with expected postsurgical changes and no residual canal stenosis or significant foraminal narrowing. There are bilateral facet joint synovial cyst s which have developed since the prior study with no associated significant canal stenosis or lateral rece ss narrowing. 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 [id number] Procedure Note Hm Interface, Radiology Results Incoming - 07/24/2020 3:53 PM CDT EXAMINATION: MRI LUMBAR SPINE W WO CONTRAST CLINICAL HISTORY: M43.17 Spondylolisthe sis lumbosacral region, M47.26 Other spondylosis with radiculopathy lumbar region, Lumbar radiculopathy status post lumbar surgery COMPARISON: MRI of the lumbar spine zunilda ed February 03, 2019 TECHNIQUE: Multiplanar MRI imaging with and without IV Gadolinium was performed. FINDINGS: There is a stable spondylotic grade 1 an terolisthesis of L5 on S1 level. Vertebral bodies are preserved. Bone marrow is unremarkable with no evidence of acute fracture or suspicious marrow-replacing lesion. . The distal spinal cord appears unremarkable. The conus medullaris terminates at the L 1-L2 level and appears unremarkable. The cauda equina is unremarkable. L1-2: Unremarkable. L2-3: Spondylotic disc space narrowing w ith diffuse disc bulge and bilateral facet arthropathy. There is no canal stenosis. There is spondylotic mild left foraminal narrowing. The right foramen is patent. There is no interval change. L3-4: Diffuse disc bulge with bilateral facet arthropathy and ligamentous thickening. There is no canal stenosis. There is spondylotic mild to moderate left foraminal narrowing. The right foramen is patent. There is no interval change. L4-5: Posterior laminectomy. There is di ffuse disc bulge with bilateral advanced facet arthropathy ligamentous hypertrophy. There are thin bilateral facet joint synovial cysts measuring on the right side approximately 8 mm and on the left side 6 mm in maximum AP diameter and 2 mm in thicknes s. There is no canal stenosis. There is minimal right lateral recess narrowing. There is stable mild right foraminal spondylotic narrowing. The left foramen is patent. L5-S1: Bilateral facet arthropathy. Ther e is stable grade 1 anterolisthesis of L5 on S1 level. There is advanced spondylotic disc space narrowing with endplate sclerosis. There is no canal stenosis. The lateral recesses are patent. There are severe bilateral spondylotic foraminal narrowin g with potential compromise of the exiting bilateral L5 nerve root unchanged from prior study. Visualized paraspinal soft tissues are u nremarkable. IMPRESSION: Posterior laminectomy at L4-L5 level as detailed above with expected postsurgical changes and no residual canal stenosis or significant foraminal narrowing. There are bilateral facet joint synovial cysts which have developed since the prior study wit h no associated significant canal stenosis o r lateral recess narrowing. 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 [id number] Performing Organization Address City/State/ZIP Code Phon e Number [facility] [address] [place] [address] Estimated GFR (07/24/2020 2:03 PM CDT)Only the most recent of3 resultswithin the time period is included. Estimated GFR 45 (A) mL/min/1.73 [facility] Comment: m2 [facility] Catergory Units Interpretation [facility] G1 >=90 Normal or high CENTER G2 60-89 Mildly decreased G3a 45-59 Mildly to moderately decreas ed G3b 30-44 Moderately to severely decre ased G4 15-29 Severely decreased G5 <15 Kidney failure The eGFR was calculated using the Chronic Kidney Disea se Epidemiology Collaboration (CKD-EPI) equation. Interpretation is based on recommendations of the National Kidney Foundation-Kidney Disease Outcomes Felipe lity Initiative (NKF-KDOQI) published in 2014. Specimen Blood Performing Organization Address City/State/ZIP Code Phon e Number DEPARTMENT OF PATHOLOGY AND 82[facility]. [address] [place] [address] GENOMIC MEDICINE, [facility] CARE [place] [id number] [place] [address] [facility] [place] POC creatinine (07/24/2020 2:03 PM CDT) POC creatinine 1.1 (H) 0.5 - 0.9 KADIE REYES Comment: mg/dl [facility] Student Education Specialist Name: Ellie SANTOS [facility] Device ID: [id number] CENTER Specimen Blood Performing Organization Address City/State/ZIP Code Phon e Number DEPARTMENT OF PATHOLOGY AND [address] [place] [address] [facility] MEDICINE, [facility] CARE [facility] [address] [place] [address] XR Knee 4+ Vw Bilateral (06/05/2020 1:19 PM CDT) Specimen Narrative Performed At This result has an attachment that is no t available. 2 views (AP/Lateral) of the [facility] right knee reveal prosthesis to be in place with no ev idence of loosening. There is excellent alignment of the knee. No evidence of fracture or dislocation. 4 views (AP, PA, Merchants,lateral) of the Left knee reveal no evidence of fracture, dislocation or any acute osseous abnormalities. There is advanced lateral compartment predominant arthritic changes seen . Performing Organization Address City/State/ZIP Code Phon e Number [facility] [address] [place] [address] Large Joint Arthrocentesis: shoulder, R subacromial bursa (05/08/2020 1:10 PM CDT) Narrative Performed At Juan Antonio Khalil MD 05/08/2020 4:57 PM Large Joint Arthrocentesis: shoulder, R subacromial bursa Consent given by: patient Site marked: site marked Timeout: Immediately prior to procedure a time out was called to verify the correct patient, procedure, equipmen t, support team assoc and site/side marked as required Supporting Documentation Indications: pain Procedure Details Preparation: Patient was prepped and andres ped in the usual sterile fashion Ultrasound guided: no Location: shoulder - R subacromial bursa Right side: Needle size: 22 G Approach: posterior Right shoulder medications administered: 5 mL lidocain e 10 mg/mL (1 %); 40 mg methylPREDNISolone acetate 40 mg/mL Patient tolerance: patient tolerated the procedure wel l with no immediate complications CBC with platelet and differential (04/20/2020 6:30 AM CDT)Only the most recent of4 resultswithin the time period is included. WBC 14.1 (H) 4.5 - 11.0 k/uL [facility] RBC 3.09 (L) 4.20 - 5.50 [facility] m/uL [facility] HGB 8.7 (L) 12.0 - 16.0 [facility] g/dL [facility] HCT 26.5 (L) 37.0 - 47.0 % [facility] MCV 85.8 82.0 - 100.0 fL [facility] MCH 28.2 27.0 - 34.0 pg [facility] MCHC 32.8 31.0 - 37.0 [facility] gdL [facility] RDW - SD 45.1 37.0 - 55.0 fL [facility] MPV 9.3 6.9 - 11.0 fL [facility] Platelet count 326 150 - 400 K/uL [facility] Nucleated RBC 0.00 /100 WBC [facility] Neutrophils 73.2 (H) 39.0 - 69.0 % [facility] Lymphocytes 13.9 (L) 25.0 - 45.0 % [facility] Monocytes 12.2 (H) 0.0 - 10.0 % [facility] Eosinophils 0.0 0.0 - 5.0 % [facility] Basophils 0.1 0.0 - 1.0 % [facility] Immature granulocytes 0.6 0.0 - 1.0 % [facility] Specimen Blood Performing Organization Address City/State/ZIP Code Phon e Number [facility] DEPARTMENT OF PATHOLOGY [address] [facility] [place] [address] AND GENOMIC MEDICINE [facility] [address] [facility] [place] [address] HOSPITAL Basic metabolic panel (04/20/2020 6:30 AM CDT) Pathologist Sig nature Sodium 123 (L) 135 - 148 mEq/L [facility] Potassium 4.7 3.5 - 5.0 mEq/L [facility] Chloride 90 (L) 98 - 112 mEq/L [facility] CO2 25 24 - 31 mEq/L [facility] Anion gap 8@ANIO 7 - 15 mEq/L [facility] BUN 18 8 - 23 mg/dL [facility] Creatinine 1.21 (H) 0.50 - 0.90 mg/dL [facility] Glucose 168 (H) 65 - 99 mg/dL [facility] Calcium 8.7 (L) 8.8 - 10.2 mg/dL [facility] Specimen Blood Performing Organization Address City/[facility]/ZIP Code Phon e Number [facility] DEPARTMENT OF PATHOLOGY [id number] [place] [phone] AND [facility] [address] [place] [phone] [place] [address] POC glucose (04/19/2020 11:40 AM CDT)Only the most recent of7 resultswithin the time period is included. Pathologist Sig nature POC glucose 84 65 - 99 mg/dL [facility] Comment: [facility] Student Education Specialist Name: Kahlil Calderón Device ID: [id number] Specimen Blood Performing Organization Address [facility] Phon e Number [facility] DEPARTMENT OF PATHOLOGY [id number] [place] [address] X [address] [place] [address] H[place]PITAL [place] < 1 Hour (04/19/2020 10:50 AM CDT)Only the most recent of4 results within the time period is included. Specimen Narrative Performed At EXAMINATION: [place] < 1 HOUR HM [facility] CLINICAL HISTORY: 84 years Female, hilda n IMPRESSION: Fluoroscopy was provided. No radiologist present. Pl ease see procedure report for discussion of procedure, find ings. [facility]-[id number] Procedure Note Hm Interface, Radiology Results Incoming - 04/19/2020 11:54 AM CDT EXAMINATION: [place] < 1 HOUR CLINICAL HISTORY: 84 years Female, pain IMPRESSION: Fluoroscopy was provided. No radiologist present. Please see procedure report for discussion of procedure, findings. [facility]-[id number] Performing Organization Address City/[facility]/ZIP Code Phon e Number [facility] [address] [place] [address] Urinalysis screen and microscopy, with reflex to culture (04/19/2020 9:23 AM CDT)Only the most recent of3 resultswithin the time period is included. Specimen site Catheterized [facility] Color, UA Yellow [facility] Appearance, UA Clear [facility] Specific gravity, UA 1.017 1.001 - 1.030 [facility] pH, UA 7.0 5.0 - 9.0 [facility] Protein, UA Negative Negative [facility] Glucose, UA Negative Negative [facility] Ketones, UA 1+ (A) Negative [facility] Bilirubin, UA Negative Negative [facility] Blood, UA Negative Negative [facility] Nitrite, UA Negative Negative [facility] Urobilinogen, UA 2.0 (A) <2.0 E.U./dL [facility] Leukocyte esterase, Negative Negative [facility] Epithelial cells, UA <1 /HPF [facility] Round epithelial <1 0 - 5 /HPF [facility] cells, [facility] WBC, UA 1 0 - 4 /HPF [facility] RBC, UA 1 0 - 5 /HPF [facility] Bacteria, UA Few None seen [facility] Yeast, UA None seen [facility] Yeast with None seen [facility] pseudohyphae, UA [facility] Specimen Urine - Urinary bladder Performing Organization Address City/[facility]/ZIP [facility] Phon e Number [facility] DEPARTMENT OF PATHOLOGY [id number] [place] [address] Urine culture (04/19/2020 9:23 AM CDT)Only the most recent of4 resultswithin the time period is included. Pathologist Sig nature Urine culture SEE COMMENTComment: [facility] Bacteriuria screen [facility] negative. Specimen Performing Organization Address [facility] Phon e Number [facility] DEPARTMENT OF PATHOLOGY [phone] [place] [address] AND GENOMIC MEDICINE [address] Airway (04/19/2020 9:17 AM CDT) Narrative Performed At Shanice Quintana MD 04/19/2020 9:18 AM Airway Date/Time: 04/19/2020 9:18 AM Performed by: Shanice Quintana MD Authorized by: Shanice Quintana MD Location: [place] Urgency: Elective Performed by: anesthesiologist Preoxygenated with 100% O2: Yes C-spine Precautions Maintained Throughou t: Yes Mask Ventilation: Not attempted Final Airway Type: Endotracheal airway Final Endotracheal Airway: ETT Technique Used: Video laryngoscopy Devices/Methods Used in Placement: SGA Laryngoscope Blade/Videolaryngoscope Yifan de Size: 3 ETT Size (mm): 7.0 Measured from: Lips ETT to Lips (cm): 21 Placement Verified by: CO2 detection, di rect visualization and equal breath sounds Laryngoscopic view: Grade I - full vie w of glottis Rapid Sequence Induction (RSI): No Modified RSI: Yes Number of Attempts at Approach: 1 Type and screen (04/16/2020 12:05 PM CDT)Only the most recent of2 resultswithin the time period is included. Pathologist Sig nature ABO grouping A [facility] Rh type POS [facility] Antibody screen (gel) NEG [facility] Specimen Urine Performing Organization Address [facility] Phon e Number [facility] DEPARTMENT OF PATHOLOGY [address] [place] [address] [phone] [place] [address] Hemoglobin A1c (04/16/2020 12:05 PM CDT)Only the most recent of2 resultswithin the time period is included. Hemoglobin A1C 6.1 (H) 4.0 - 5.6 % [facility] Comment: [facility] HbA1c cutoffs for diagnosing diabetes: HO SPITAL 4.0% - 5.6% = normal 5.7% - 6.4% = increased risk for diabetes (prediabetes )9 >=6.5% = diabetes9 Goals for glycemic control (ADA 2016) < 7.0% Target for non adults with diabetes. More or less stringent targets may be appropriate for individual patients. <7.5% Target for Children and adolescents with type 1 diabetes. Specimen Urine Performing Organization Address City/[facility] Phon e Number [facility] DEPARTMENT OF PATHOLOGY [address] [place] [address] X [phone] [place] [address] COVID-19 qualitative PCR (04/16/2020 11:30 AM CDT)Only the most recent of3 resultswithin the time period is included. Interpretation Negative results do not prec lude 2019-nCoV infection and should not be used as the sole basis for treatment or other patient management decisions. Negative results must be combined with clinical observations, patient history, and epidemiological [facility] information. [facility] COVID-19 qualitative Not-Detected Not-Detecte [facility] PCR result d [facility] COVID-19 qualitative See link below for [facility] PCR PDF Lab ORIENTAL ORTHODOX ReportComment: Case [facility] Number: [id number] Specimen Nasopharyngeal Performing Organization Address City/[facility] Phon e Number [facility] DEPARTMENT OF PATHOLOGY AND [address] [place], [place] [address] GENOMIC MEDICINE [place] [id number] [place] [address] [facility] URINALYSIS, COMPLETE, WITH REFLEX TO CULTURE (04/03/2020 2:17 PM CDT) Color, UA YELLOW YELLOW [facility] Appearance CLOUDY (A) CLEAR [facility] Specific gravity, 1.016 1.001 - 1.035 [facility] urine [facility] pH, urine < OR = 5.0 5.0 - 8.0 [facility] Glucose, urine NEGATIVE NEGATIVE [facility] Bilirubin, UA NEGATIVE NEGATIVE [facility] Ketones, UA NEGATIVE NEGATIVE [facility] Occult blood, NEGATIVE NEGATIVE [facility] urine [facility] Protein, UA NEGATIVE NEGATIVE [facility] Nitrite, UA POSITIVE (A) NEGATIVE [facility] Leukocyte 2+ (A) NEGATIVE [facility] esterase, UA [facility] WBC, UA 40-60 (A) < OR = 5 /HPF [facility] RBC, UA NONE SEEN < OR = 2 /HPF [facility] Squamous 0-5 < OR = 5 /HPF [facility] epithelial cells, [facility] UA Bacteria, UA MANY (A) NONE SEEN /HPF [facility] Calcium oxalate FEW NONE OR FEW [facility] crystals, UA /HPF [facility] Hyaline casts, UA NONE SEEN NONE SEEN /LPF [facility] Reflex CULTURE [facility] RESULTS TO FOLLOW Specimen Resulting Agency Comment Performing Organization Information: Site ID: [id number] Name: [facility] Sara moore Address: [address] [place] [address], [place] [address] Director: Gaston Ball Performing Organization Address City/State/ZIP Code Phon e Number [facility] [place] [address] Partial thromboplastin time, activated (04/03/2020 2:17 PM CDT)Only the most recent of2 resultswithin the time period is included. PTT 23 22 - 34 sec [facility] Comment: [facility] This test has not been validated for monitoring unfractionated heparin therapy. For testing that is validated for this type of therapy, please refer to the Heparin Anti-Xa assay (test code 19420). For additional information, please refer to http://education.[employer]/faq/YWT931 (This link is being provided for informational/educational purposes only.) Specimen Resulting Agency Comment Performing Organization Information: Site ID: [facility] Name: [facility] Address: [address] [place] [phone] Director: Gaston Ball Performing Organization Address City/[facility] Phon e Number [facility] [place] [address] Prothrombin time with INR (04/03/2020 2:17 PM CDT)Only the most recent of2 resultswithin the time period is included. INR 1.0 [facility] Comment: [facility] Reference Range 0.9-1.1 Moderate-intensity Warfarin Therapy 2.0-3.0 Higher-intensity Warfarin Therapy 3.0-4.0 Prothrombin time 10.6 9.0 - 11.5 [facility] Comment: asa ENGLE For more information on this test, go to: http://education.[employer]/faq/ALF978 Specimen Resulting Agency Comment Performing Organization Information: Site ID: A Name: [facility] Address: [address] [place] [phone] Director: Gaston Ball Performing Organization Address [facility] Phon e Number [facility] [place] [address] Comprehensive metabolic panel (04/03/2020 2:17 PM CDT)Only the most recent of2 resultswithin the time period is included. Glucose 112 (H) 65 - 99 [facility] Comment: mg/dL [facility] Fasting reference interval For someone without known diabetes, a glucose value between 100 and 125 mg/dL is consistent with prediabetes and should be confirmed with a follow-up test. BUN 16 7 - 25 mg/dL [facility] Creatinine 1.03 (H) 0.60 - 0.88 [facility] Comment: mg/dL [facility] For patients >49 years of age, the reference limit for Creatinine is approximately 13% higher for people identified as -Peruvian. EGFR Non-Afr. 49 (L) > OR = 60 [facility] Peruvian mL/min/1.73m [facility] 2 EGFR 57 (L) > OR = 60 [facility] Peruvian mL/min/1.73m [place] [id number] BUN/creatinine 16 6 - 22 [facility] ratio (calc) [facility] Sodium 136 135 - 146 [facility] mmol/L [facility] Potassium 4.8 3.5 - 5.3 [facility] mmol/L [facility] Chloride 99 98 - 110 [facility] mmol/L [facility] CO2 29 20 - 32 [facility] mmol/L [facility] Calcium 9.7 8.6 - 10.4 [facility] mg/dL [facility] Protein 6.1 6.1 - 8.1 [facility] g/dL [facility] Albumin, S 3.6 3.6 - 5.1 [facility] g/dL [facility] Globulin, total 2.5 1.9 - 3.7 [facility] g/dL (calc) [facility] Albumin/globulin 1.4 1.0 - 2.5 [facility] ratio (calc) [facility] Total bilirubin 0.4 0.2 - 1.2 [facility] mg/dL [facility] Alkaline 34 (L) 37 - 153 U/L [employer] phosphatase [facility] AST 16 10 - 35 U/L [facility] ALT 13 6 - 29 U/L [facility] Specimen Resulting Agency Comment Performing Organization Information: Site ID: RGA Name: [facility] Sara moore Address: [address] [place] [address] Director: Gaston Ball Performing Organization Address City/State/ZIP Code Phon e Number [facility] [address] [address] XR Chest 2 Vw (02/24/2020 2:03 PM CDT) Specimen Narrative Performed At EXAMINATION: XR CHEST 2 VW [facility] CLINICAL HISTORY: Z01.818 Encounter for other prepro [...] changed and unremarkable. The bones are unremarkable. [facility]-[id number] Procedure Note Hm Interface, Radiology Results Incoming - 02/24/2020 2:07 [...] unchanged and unremarkable. The bones are unremarkable. [facility]-[id number] Performing Organization Address City/[facility] Code Phon e Number [facility] [address] [place] [address] ECG Pre/Post Op (02/24/2020 1:04 PM CDT) Pathologist Sig nature Ventricular rate 74 [facility] Atrial rate 74 [facility] FL interval 140 [facility] QRSD interval 80 [facility] QT interval 360 [facility] QTC interval 399 [facility] P axis 1 -2 [facility] QRS axis 1 -34 [facility] T wave axis -3 [facility] EKG impression Normal sinus rhythm-Left axi s deviation-Anterolateral infarct , age undetermined-Abnormal ECG-In automated comparison with ECG of 17-FEB-2019 12:05,-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
--- OUTSIDE RECORDS SUMMARY | 2020-07-28 10:03 | XMS REPORT | Continuity of Care Document ---
:1935 Author Organization [facility] t Address [address] [place] [address] Care Team Providers Name Role Phone Murtaza Abernathy MD Primary Care Physician Hiram Renee MD. Attending Clinician Maria Esther Guaman MD Attending Clinician Norman MARIE Attending Clinician Unavailable Mike Fagan MD Attending Clinician Felicitas Coronel Attending Clinician Katerin Gutierrez Attending Clinician Rajwinder Willoughby Attending Clinician Lia DELANEY PAngi Attending Clinician Celeste Quintana MD Attending Clinician Francisco ROJO Attending Clinician Sy Thorpe MD Attending Clinician [phone] Brad Faye MD Attending Clinician Krysten THOMPSON Attending Clinician Sujata Ortez MD Attending Clinician Argelia Wallace NP Attending Clinician LIA Admitting Clinician Unavailable HIRAL Admitting Clinician Unavailable Payers Payer Name Policy Type Policy Effective Date Expiration Date Sour ce Number HUMANA [id number] 2018 [place] MEDICAREHUMANA 00:00:00 [facility]ast[facility] MEDICARE PPO/PFFS/ERS [id number] 2018 -PresentPPO Problems Condition Condition Condition Status Onset Resolution Last Treating Co mments Source Name Details Category Date Date Treatment Clinician Date Hyperlipid Hyperlipid Disease Active [place] emia emia 04-19 [facility] 00:[facility]: st 00 DM DM Disease Active [place] (diabetes (diabetes 04-19 [facility] mellitus) mellitus) 00:00: st 00 UTI UTI Disease Active [place] (urinary (urinary 04-19 Method i tract tract 00:00: st infection) infection) 00 Spondyloli Spondyloli Disease Active Overview : [place] sthesis at sthesis at 2-12 Added [facility] L4-L5 L4-L5 00:00: automatic st level level 00 ally from request for surgery [id number] Spondyloli Spondyloli Disease Active Overview : [place] sthesis at sthesis at 2-12 Added Me [facility] L5-S1 L5-S1 00:00: automatic st level level 00 ally from request for surgery [id number] Trochanter Trochanter Disease Active Overview : [place] ic ic 2-12 Added [facility] bursitis bursitis 00:00: automatic st of right of right 00 ally from hip hip request for surgery [id number] Diverticul Diverticul Disease Active [place] itis itis 5-20 [facility] 00:00: st 00 Abscess of Abscess of Disease Active [place] sigmoid sigmoid 5-07 [facility] colon colon 00:00: st 00 Other Other Disease Active [place] spondylosi spondylosi 4-10 Me [facility] s with s with 00:00: st radiculopa radiculopa 00 thy, thy, lumbar lumbar region region Spondyloli Spondyloli Disease Active [place] sthesis of sthesis of 4-10 [facility] lumbar lumbar 00:00: st region region 00 Primary Primary Disease Active 2015-10 [place] osteoarthr osteoarthr 0-17 Me [facility] itis of itis of 00:00: st right knee right knee 00 Rheumatoid Rheumatoid Disease Active [place] arthritis arthritis 7-21 [facility] involving involving 00:00: st multiple multiple 00 sites with sites with positive positive rheumatoid rheumatoid factor factor Follow-up Follow-up Disease Active Ray simpson examinatio examinatio 05-06 Me thodi n n 00:00: st following following 00 treatment treatment with with high-risk high-risk medication medication Hypothyroi Hypothyroi Disease Active [place] dism dism 04-03 [facility] 00:00: st 00 S/P S/P Disease Active [place] ALBANIA-BSO ALBANIA-BSO 04-03 [facility] 00:00: st 00 Hypertensi Hypertensi Disease Active [place] on on 04-03 [facility] 00:00: st 00 Degenerati Degenerati Disease Active [place] on of on of 03-09 [facility] interverte interverte 00:00: st bral disc bral disc 00 of of lumbosacra lumbosacra l region l region Allergies, Adverse Reactions, Alerts Allergy Allergy Status Severity Reaction(s) Onset Inactive Treating Comm ents Source Name Type Date Date Clinician Demario Srinivasan Active Other (See CRISTOBAL simpson ty to Comments) 5-20 CRAZY PER [facility] adverse 00:00: PT st reaction 00 s to drug Family History Family Member Diagnosis Comments Start Date Stop Date Source Natural brother Diabetes [facility] ethodist Natural father Lung cancer [facility] ethodist Natural mother Old age [facility] thodist Social History Social Habit Start Date Stop Date Quantity Comments Source Sex Assigned At [facility] ethodist Exposure to Not sure [place] Metho dist SARS-CoV-2 (event) Tobacco use and 2020-06-05 2020-06-05 Never used [facility] ethodist exposure 00:00:00 00:00:00 Alcohol intake 2020-06-05 2020-06-05 Current drinker [place] [facility] 00:00:00 00:00:00 of alcohol (finding) Alcohol Comment 2019-10-31 2019-10-31 1-2 times a year Ray simpson [facility] 00:00:00 00:00:00 Smoking Status Start Date Stop Date Source Never smoker [facility] Medications Ordered Filled Start Stop Current Ordering Indication Dosage Frequency Signature Comments Components Source Medication Medication Date Date Medication? Clinician (SIG) Name Name traMADoL 2019-10 2020- Yes TAKE 1 [place] (ULTRAM) 50 0-08 10-28 TABLET BY Me thodi mg tablet 00:00: 23:[address] 00 :00 EVERY 6 HOURS NEEDED FOR PAIN traMADoL 2020-0 2020- No chronic 50mg Q6H Take 1 [place] (Ultram) 50 8-19 10-08 pain tablet (50 M ethodi mg tablet 00:00: 00:00 mg total) st 00 :00 by mouth every 6 (six) hours as needed for moderate pain .chronic pain. traMADoL 2020-0 Yes acute pain 50mg Q6H Take 50 mg [place] (ULTRAM) 50 8-18 by mouth [facility] mg tablet 13:11: every 6 st 56 (six) hours as needed for moderate pain .acute pain. rosuvastati 2020-0 Yes 5mg QD Take 5 mg [place] (CRESTOR) 8-18 by mouth [facility] 5 MG tablet 13:10: nightly. st 50 golimumab 2020-0 Yes Infuse [place] (SIMPONI 8-18 into a [facility] ARIA IV) 13:10: venous st 50 catheter. Every 8 weeks predniSONE 2020-0 Yes 5mg QD Take 5 mg [place] (DELTASONE) 8-18 by mouth [facility] 5 mg tablet 13:10: daily. st 50 olmesartan 2020-0 Yes 40mg QD Take 40 mg [place] (BENICAR) 8-18 by mouth Method i 40 MG 13:10: daily. st tablet 50 levothyroxi 2020-0 Yes 75ug QD Take 75 [place] ne 8-18 mcg by [facility] (SYNTHROID, 13:10: mouth st LEVOXYL) 75 50 daily. mcg tablet metFORMIN 2020-0 Yes 500mg Q.5D Take 500 [place] (GLUCOPHAGE 8-18 mg by [facility] ) 500 mg 13:10: mouth 2 st tablet 50 (two) times a day with meals. omeprazole 2020-0 Yes 20mg QD Take 20 mg [place] (PriLOSEC) 8-18 by mouth Metho di 20 MG 13:10: daily. st capsule 50 glipiZIDE 2020-0 Yes 2.5mg QD Take 2.5 [place] (GLUCOTROL) 8-18 mg by [facility] 2.5 MG 24 13:10: mouth st hr tablet 50 daily. carvediloL 2020-0 Yes 12.5mg Q.5D Take 12.5 [place] (COREG) 8-18 mg by [facility] 12.5 MG 13:10: mouth 2 st tablet 50 (two) times a day with meals. DULoxetine 2020-0 Yes 30mg QD Take 30 mg [place] (CYMBALTA) 8-18 by mouth Metho di 30 MG 13:10: daily. st capsule 50 pregabalin 2020-0 2020- No 50mg Q.5D Take 1 [place] (Lyrica) 50 05-30 09-11 capsule [facility] MG capsule 00:00: 23:59 ([address] 00 :00 total) by mouth 2 (two) times a day for 30 days. diclofenac 2020-0 Yes Nontraumati Q.25D Apply [place] (VOLTAREN) 7-21 c topically [facility] 1 % gel 00:00: incomplete 4 (four) st 00 tear of times a right day. Apply rotator 2 gms to cuff affected area 4 times a day methocarbam 2020-0 Yes 750mg Q.[id number] Take 1 [place] oL - [id number] tablet [facility] (Robaxin-75 00:00: 3D ([address] 0) 750 MG 00 total) by tablet mouth 3 (three) times a day. amoxicillin 2019-0 2020- No 500mg Q.5D Take 1 [place] -pot 04-19 07-14 tablet [facility] clavulanate 00:00: 23:59 ([address] (Augmentin) 00 :00 total) by 500-125 mg mouth 2 per tablet (two) times a day for 12 days. traMADoL 2020-0 2020- No chronic acute [place] (ULTRAM) 50 04-19 07-12 pain pain, Method i mg tablet 00:00: 23:[address] 00 :00 pain. Take 1 tablet by mouth every 4-6 hours as needed for pain. sulfamethox 2020-0 2020- No 1{tbl} Q.5D Take 1 [place] azole-trime 04-17-03 tablet by [place] thvivek thoprim 00:00: 00:[address] (Bactrim 00 :00 (two) DS) 800-160 times a mg per day for 10 tablet days. amLODIPine 2020-0 2020- No 5mg QD Take 5 mg H [place] (NORVASC) 5 04-16-29 by mouth Met hodi mg tablet 11:15: 00:[address] 03 :00 traMADoL 2019-0 2020- No chronic chronic [place] (ULTRAM) 50 6- 07-02 pain pain. Take M ethodi mg tablet 00:00: 00:[address] 00 :00 by mouth every 6-8 hours as needed for pain. nitrofurant 2019- 2020- No 100mg Q.5D Take 1 [place] oin, 6 06-25 capsule [facility] macrocrysta 00:00: 23:59 ([address] l-monohydra 00 :00 total) by te, mouth 2 (Macrobid) (two) 100 MG times a capsule day for 7 days. multivitami 2019- 2020- No 1{tbl} QD Take 1 [place] n with 5-08 05-08 tablet by [facility] minerals 12:40: 00:[address] tablet 30 :00 daily. linaGLIPtin 2019- 2020- No 5mg QD Take 5 mg [place] (TRADJENTA) 5-08 05-08 by mouth Met hodi 5 mg tablet 12:40: 00:[address] 23 :00 breakfast. naproxen 2019- 2020- No 220mg Q12H Take [address] [place] sodium 5-08 05-08 mg by [facility] (ALEVE) 220 12:37: 00:[address] MG tablet 58 :00 every 12 (twelve) hours as needed for mild pain. metFORMIN 2020- No 1000mg Q.5D Take 1,000 [place] (GLUCOPHAGE 5-08 05-08 mg by Method i ) 1,000 mg 12:37: 00:[address] tablet 42 :00 (two) times a day with meals. naproxen 2020- No 500mg Q.5D Take 1 [place] (NAPROSYN) 2-03 05-08 tablet Method i 500 MG 00:00: 00:00 ([address] tablet 00 :00 total) by mouth 2 (two) times a day. LYRICA 25 2020- No 25mg Q.5D Take 25 mg [place] mg capsule 07-12 by mouth 2 Me thodi 00:00: 00:00 (two) st 00 :00 times a day. carvedilol 2020- No TK 1 T PO [place] (COREG) 05-12 BID [facility] 6.25 MG 00:00: 00:00 st tablet 00 :00 DULoxetine 2017-0 2020- No QD nightly. [place] velasquez (CYMBALTA) 6-08 [facility] 60 MG 00:00: 00:00 st capsule 00 :00 RESTASIS Yes 1[drp] Administer [place] 0.05 % 06-24 1 drop to [facility] ophthalmic 00:00: both eyes st emulsion 00 daily. Vital Signs Vital Name Observation Time Observation Value Comments Source Body height 2020-06-05 13:10:00 154.9 cm Ras Hawkins Body weight 2020-06-05 13:10:00 66.225 kg Ras Hawkins BMI 2020-06-05 13:10:00 27.59 kg/m2 Ras Hawkins Systolic blood 2020-04-20 11:34:03 141 mm[Hg] Atiya n Rast[facility]arian pressure Diastolic blood 2020-04-20 11:34:03 63 mm[Hg] [place] [facility] pressure Heart rate 2020-04-20 11:34:03 72 /min Ras Hawkins Body temperature 2020-04-20 11:34:03 36.44 Blanca Juan Hawkins Respiratory rate 2020-04-20 11:34:03 19 /min Juan Hawkins Oxygen saturation in 2020-04-20 11:34:03 95 /min Ras Hawkins Arterial blood by Pulse oximetry Procedures Procedure Date / Time Performing Clinician Source Performed MRI LUMBAR SPINE W WO 2020-07-24 15:04:31 Sonny Guaman CONTRAST ESTIMATED GFR 2020-07-24 14:03:00 Sonny Guaman Met adrián POC CREATININE 2020-07-24 14:03:00 Sonny Guaman Met adrián XR KNEE 4+ VW BILATERAL 2020-06-05 13:19:37 Malcolm Renee NM ARTHROCENTESIS 2020-05-08 13:10:00 Juan Antonio Fagan ASPIR&/INJ MAJOR JT/BURSA W/O US BASIC METABOLIC PANEL 2020-04-20 06:30:00 Soo Nava HC COMPLETE BLD COUNT 2020-04-20 06:30:00 Soo Nava Rastafarian W/AUTO DIFF ESTIMATED GFR 2020-04-20 06:30:00 Soo Nava Me thodist POC GLUCOSE 2020-04-19 11:40:00 Syeda Fitzgerald ethodist [place] < 1 HOUR 2020-04-19 10:50:00 Sonny Guaman Met hodist URINE CULTURE 2020-04-19 09:23:00 Sonny Guaman Met hodist URINALYSIS SCREEN AND 2020-04-19 09:23:00 Sonny Guaman on Rastafarian MICROSCOPY, WITH REFLEX TO CULTURE NM AN ELECTIVE 2020-04-19 09:17:55 Shanice Quintana ethodist ENDOTRACHEAL AIRWAY POC GLUCOSE 2020-04-19 08:28:00 Sonny Guaman Met hodist POC GLUCOSE 2020-04-19 08:26:00 Sonny Guaman Met hodist POC GLUCOSE 2020-04-19 08:25:00 Sonny Guaman Met hodist URINE CULTURE 2020-04-19 07:54:00 Sonny Guaman Met hodist URINALYSIS SCREEN AND 2020-04-19 07:30:00 Sonny Guaman on Rastafarian MICROSCOPY, WITH REFLEX TO CULTURE URINE CULTURE 2020-04-16 13:13:00 Sonny Guaman Met hodist URINALYSIS SCREEN AND 2020-04-16 12:17:00 Sonny Guaman on Rastafarian MICROSCOPY, WITH REFLEX TO CULTURE HC COMPLETE BLD COUNT 2020-04-16 12:05:00 Magy Bashir on Rastafarian W/AUTO DIFF TYPE AND SCREEN 2020-04-16 12:05:00 Magy Bashir Met hodist HEMOGLOBIN A1C 2020-04-16 12:05:00 Magy Bashir Met hodist COVID-19 QUALITATIVE PCR 2020-04-16 11:30:00 Magy Bashir [facility]ast[facility]arian COVID-19 QUALITATIVE PCR 2020-04-05 13:02:00 Magy Bashir Rast[facility]arian URINE CULTURE 2020-04-03 14:17:00 Horacio Vernon ethodist COMPREHENSIVE METABOLIC 2020-04-03 14:17:00 Horacio Vernon Rast[facility]arian PANEL PARTIAL THROMBOPLASTIN 2020-04-03 14:17:00 Horacio Vernon Rast[facility]arian TIME (PTT) URINALYSIS, COMPLETE, WITH 2020-04-03 14:17:00 Horacio Vernon REFLEX TO CULTURE PROTHROMBIN TIME WITH INR 2020-04-03 14:17:00 Horacio Vernon CBC WITH PLATELET AND 2020-04-03 14:17:00 Horacio Vernon DIFFERENTIAL XR CHEST 2 VW 2020-02-24 14:03:25 Sonny Guaman Met adrián COVID-19 QUALITATIVE PCR 2020-02-24 13:15:00 Magy Bashir ECG PRE/POST OP 2020-02-24 13:04:59 Sonny Guaman Met adrián HC COMPLETE BLD COUNT 2020-02-24 12:48:00 Sonny Guaman on Rastafarian W/AUTO DIFF COMPREHENSIVE METABOLIC 2020-02-24 12:48:00 Sonny Guaman Rast[facility]arian PANEL PARTIAL THROMBOPLASTIN 2020-02-24 12:48:00 Sonny Guaman Rast[facility]arian TIME (PTT) PROTHROMBIN TIME WITH INR 2020-02-24 12:48:00 Sonny Guaman Rastafarian TYPE AND SCREEN 2020-02-24 12:48:00 Magy Bashir Met adrián HEMOGLOBIN A1C 2020-02-24 12:48:00 Magy Bashir Met hodjadyn ESTIMATED GFR 2020-02-24 12:48:00 oSnny Guaman Met hodjadyn OR [place] < 1 HOUR 2019-11-02 10:26:59 [facility] POC GLUCOSE 2019-11-02 08:10:00 San[facility] Thorpe OR [place] < 1 HOUR 2019-09-22 14:20:00 San[facility] Thorpe POC GLUCOSE 2019-09-22 12:11:00 Sanford Thorpe OR [place] < 1 HOUR 2019-07-28 14:00:00 Sanford Thorpe POC GLUCOSE 2019-07-28 12:35:00 [facility] Thor[facility] Plan of Care Planned Activity Planned Date Details Comments Source Future Scheduled 2020-05-19 INFLUENZA VACCINE [place] [facility] Test 00:00:00 [code = INFLUENZA VACCINE] Future Scheduled 1998 65+ PNEUMOCOCCAL [facility] [facility] Test 00:00:00 VACCINE (1 of 1 - PPSV23) [code = 65+ PNEUMOCOCCAL VACCINE (1 of 1 - PPSV23)] Future Scheduled 1983 SHINGLES VACCINES (#1) [place] [facility] Test 00:00:00 [code = SHINGLES VACCINES (#1)] Future Scheduled 1943 DIABETIC FOOT EXAM [place] [facility] Test 00:00:00 [code = DIABETIC FOOT EXAM] Future Scheduled 1945 URINE MICROALBUMIN [place] [facility] Test 00:00:00 [code = URINE MICROALBUMIN] Future Scheduled 1933 DIABETIC RETINAL EYE [facility] Test 00:00:00 EXAM [code = DIABETIC RETINAL EYE EXAM] Encounters Start End Encounter Admission Attending Care Care Encounter Source Date/Time Date/Time Type Type Clinicians Facility Department ID 2020-07-24 2020-07-24 Outpatient DONNA [facility] [id number] [place] 00:00:00 00:00:00 SONNY [address] 2020-07-02 2020-07-02 Outpatient DONNA [facility] [id number] [place] 00:00:00 00:00:00 SONNY [address] 2020-06-05 2020-06-05 Outpatient MAFFET [facility] [id number] [place] 00:00:00 00:00:00 MALCOLM [address] 2020-06-05 2020-06-05 Outpatient MAFFET [facility] [id number] [place] 00:00:00 00:00:00 MALCOLM [address] 2020-05-30 2020-05-30 Outpatient DONNA [facility] [id number] [place] 00:00:00 00:00:00 SONNY [address] 2020-05-08 2020-05-08 Outpatient FAGAN, [facility] [id number] [place] 00:00:00 00:00:00 KIMSTERLING [address] 2020-05-02 2020-05-02 Outpatient RADLEY, [facility] [id number] [place] 00:00:00 00:00:00 LEÓN [address] 2020-04-19 2020-04-20 Outpatient JOGLEKAR, [facility] [id number] [place] 00:00:00 00:00:00 SYEDA [address] 2020-04-16 2020-04-16 Outpatient WOOD, [facility] [id number] [place] 00:00:00 00:00:00 SONNY [address] 2020-04-05 2020-04-05 Outpatient WOOD, [facility] [id number] [place] 00:00:00 00:00:00 SONNY [address] 2020-02-24 2020-02-24 Outpatient WOOD, [facility] [id number] [place] 00:00:00 00:00:00 SONNY [address] 2020-02-24 2020-02-24 Outpatient WOOD, [facility] [id number] [place] 00:00:00 00:00:00 SONNY [address] 2020-02-24 2020-02-24 Outpatient WOOD, [facility] [id number] [place] 00:00:00 00:00:00 SONNY [address] 2020-02-24 2020-02-24 Outpatient WOOD, [facility] [id number] [place] 00:00:00 00:00:00 SONNY [address] 2019-11-02 2019-11-02 Outpatient PECCORA, [facility] [id number] [place] 00:00:00 00:00:[address] MANDAEISM [address] 2019-09-22 2019-09-22 Outpatient PECCORA, [facility] [id number] [place] 00:00:00 00:00:00 MANDAEISM [address] 2019-07-28 2019-07-28 Outpatient PECCORA, [facility] [id number] [place] 00:00:00 00:00:[address] Results Test Description Test Time Test Comments Results Result Sourc e Comments MRI Lumbar Spine Hector Walker on W Wo Contrast 6 Radiology Results Meth odist 15:50:29 06/2020 3:53 PM CDTEXAMINATION: MRI LUMBAR SPINE W WO CONTRASTCLINICAL HISTORY: M43.17 Spondylolisthesis lumbosacral region, M47.26 Other spondylosis with radiculopathy lumbar region, Lumbar radiculopathy status post lumbar surgeryCOMPARISON: MRI of the lumbar spine dated February 03, 2019TECHNIQUE:Multipla marissa MRI imaging with and without IV Gadolinium was performed.FINDINGS:The re is a stable spondylotic grade 1 anterolisthesis of L5 on S1 level. Vertebral bodies are preserved. Bone marrow is unremarkable with no evidence of acute fracture or suspicious marrow-replacing lesion. . The distal spinal cord appears unremarkable. The conus medullaris terminates at the L1-L2 level and appears unremarkable. The cauda equina is unremarkable.L1-2: Unremarkable.L2-3: Spondylotic disc space narrowing with diffuse disc bulge and bilateral facet arthropathy. There is no canal stenosis. There is spondylotic mild left foraminal narrowing. The right foramen is patent. There is no interval change.L3-4: Diffuse disc bulge with bilateral facet arthropathy and ligamentous thickening. There is no canal stenosis. There is spondylotic mild to moderate left foraminal narrowing. The right foramen is patent. There is no interval change.L4-5: Posterior laminectomy. There is diffuse disc bulge with bilateral advanced facet arthropathy ligamentous hypertrophy. There are thin bilateral facet joint synovial cysts measuring on the right side approximately 8 mm and on the left side 6 mm in maximum AP diameter and 2 mm in thickness. There is no canal stenosis. There is minimal right lateral recess narrowing. There is stable mild right foraminal spondylotic narrowing. The left foramen is patent.L5-S1: Bilateral facet arthropathy. There is stable grade 1 anterolisthesis of L5 on S1 level. There is advanced spondylotic disc space narrowing with endplate sclerosis. There is no canal stenosis. The lateral recesses are patent. There are severe bilateral spondylotic foraminal narrowing with potential compromise of the exiting bilateral L5 nerve root unchanged from prior study.Visualized paraspinal soft tissues are unremarkable.IMPRESSIO N:Posterior laminectomy at L4-L5 level as detailed above with expected postsurgical changes and no residual canal stenosis or significant foraminal narrowing. There are bilateral facet joint synovial cysts which have developed since the prior study with no associated significant canal stenosis or lateral recess narrowing.Stable spondylotic changes at L5-S1 level with spondylotic severe bilateral foraminal narrowing and potential mass effect on the exiting bilateral L5 nerve roots.[id number] POC creatinine 2020-07-24 14:07:30 Test Item Value Reference Range Interpretation Comme nts POC creatinine (test code = 1.1 mg/dl 0.5-0.9 H Parks Recreation Coordinator Name: Ellie [id number] [place] BDevice ID: [id number] Lab Interpretation (test code = Abnormal 51126-6) Ras MethodistEstimated [id number] 14:07:30 Test Item Value Reference Range Interpretation Comments Estimated GFR (test 45 mL/min/1.73 m2 A Demetris roman Units code = 13218-0) Interpretati onG1 >=90 Francesca l or highG2 60-89 Mildly decrease dG3a 45-59 Mil dly to moderately decr tkttmM1u 30-44 Moderately to s everely decreasedG4 15-29 Severe ly decreasedG5 <15 Kidney [place] lureThe eGFR was calcul ated using the Chron Kidney Disease Epidemiology Collaboration ( CKD-EPI) equation. Interpretation is based on recommendati ons of the National [facility]-Kidn ey Disease Outcome s Quality Initiat martha (NKF-KDOQI) pub [facility] in 2013. Lab Interpretation Abnormal (test code = 18821-3) Ras MethodistLarge Joint Arthrocentesis: shoulder, R subacromial bursa 2020-05-08 13:10:00Juan Antonio Fagan MD 05/08/2020 4:57 PMLarge Joint Arthrocentesis: shoulder, R subacromial bursaConsent given by: patientSite marked: site markedTimeout: Immediately prior to procedure a time outwas called to verify the correct patient, procedure, equipment, learning support specialist and site/side marked as required Supporting DocumentationIndications: pain Procedure DetailsPreparation: Patient was prepped and draped in the usual sterile fashionUltrasound guided: noLocation: shoulder - R subacromial bursa Right side:Needle size: 22 GApproach: posteriorRight shoulder medications administered: 5 mL lidocaine 10 mg/mL (1 %); 40 mg methylPREDNISolone acetate 40 mg/mLPatient tolerance: patient tolerated theprocedure well with no immediate complications[place] MethodistBasic metabolic [id number] 07:37:29 Test Item Value Reference Range Interpretation Comments Sodium (test code = 2951-2) 123 135- 148 mEq/L L Potassium (test code = 2823-3) 4.7 3.5- 5.0 mEq/L Chloride (test code = 2075-0) 90 98- 112 mEq/L L CO2 (test code = 2028-9) 25 24- 31 mEq/L Anion gap (test code = 38286-0) 8@ANIO 7- 15 mEq/L BUN (test code = 3094-0) 18 mg/dL 8-23 Creatinine (test code = 2160-0) 1.21 mg/dL 0.5-0.9 H Glucose (test code = 2345-7) 168 mg/dL 65-99 H Calcium (test code = 10596-7) 8.7 mg/dL 8.8-10.2 L Lab Interpretation (test code = Abnormal 27005-9) [place] [facility] with [facility] and [id number] 06:55:45 Test Item Value Reference Range Interpretation Comments WBC (test code = 39440-9) 14.1 4.5- 11.0 k/uL H RBC (test code = 12025-2) 3.09 m/uL 4.2-5.5 L HGB (test code = 718-7) 8.7 g/dL 12-16 L HCT (test code = 4544-3) 26.5 % 37-47 L MCV (test code = 787-2) 85.8 fL 82-100 MCH (test code = 785-6) 28.2 pg 27-34 MCHC (test code = 786-4) 32.8 g/dL 31-37 RDW - SD (test code = 10507-1) 45.1 fL 37-55 MPV (test code = 90192-9) 9.3 fL 6.9-11 Platelet count (test code = 326 K/uL 150-400 51498-7) Nucleated RBC (test code = 35119-7) 0.00 /100 WBC Neutrophils (test code = 79002-0) 73.2 % 39-69 H Lymphocytes (test code = 82195-2) 13.9 % 25-45 L Monocytes (test code = 15533-1) 12.2 % 0-10 H Eosinophils (test code = 21984-5) 0.0 % 0-5 Basophils (test code = 92788-7) 0.1 % 0-1 Immature granulocytes (test code = 0.6 % 0-1 02935-7) Lab Interpretation (test code = Abnormal 18851-1) [place] MethodistOR [place] < 1 [id number] 11:50:58Hm Interface, Radiology Results 04/19/2020 11:54 AM CDTEXAMINATION: [place] < 1 HOURCLIN ICAL HISTORY: 84 years Female, painIMPRESSION:Fluoroscopy was provided. No radiologist present. Please see procedure report for discussion of procedure, findings.[facility]-[id number] MethodistPOC [id number] 11:41:18 Test Item Value Reference Range Interpretation Comments POC glucose (test 84 mg/dL 65-99 Parks Re[employer] Coordinator N vy: Kahlil code = 40861-0) Victor Manuel e ID: [id number] Ras EliasistUrine [id number] 10:30:31 Test Item Value Reference Range Interpretation Comments Urine culture (test SEE COMMENT Bacteriu bishop screen code = 1943189) negative. [facility] MethodistUrinalysis screen and microscopy, with reflex to culture 2020-04-19 10:30:30 Test Item Value Reference Range Interpretation Comments Specimen site (test code = Catheterized 5001453) Color, UA (test code = 5778-6) Yellow Appearance, UA (test code = Clear 5767-9) Specific gravity, UA (test code 1.017 1.001-1.030 = 5811-5) pH, UA (test code = 5803-2) 7.0 5.0-9.0 Protein, UA (test code = Negative Negative 03929-2) Glucose, UA (test code = Negative Negative 41434-7) Ketones, UA (test code = 2514-8) 1+ Negative A Bilirubin, UA (test code = Negative Negative 5770-3) Blood, UA (test code = 5794-3) Negative Negative Nitrite, UA (test code = 5802-4) Negative Negative Urobilinogen, UA (test code = 2.0 <2.0 E.U./dL A 95133-4) Leukocyte esterase, UA (test Negative Negative code = 5799-2) Epithelial cells, UA (test code <1 /HPF = 5787-7) Round epithelial cells, UA (test <1 0- 5 /HPF code = 24666-1) WBC, UA (test code = 5821-4) 1 0- 4 /HPF RBC, UA (test code = 23162-4) 1 0- 5 /HPF Bacteria, UA (test code = Few None seen 67032-1) Yeast, UA (test code = 53954-4) None seen Yeast with pseudohyphae, UA None seen (test code = 48487-4) Lab Interpretation (test code = Abnormal 26807-2) Ras [id number] 09:17:55Shanice Quintana MD 04/19/2020 9:18 AMAirwayDate/Time: 04/19/2020 9:18 AMPerformed by: Shanice Quintana MDAuthorized by: Shanice Quintana MD Location: ORUrgency: ElectivePerformed by: anesthesiologistPreoxygenated with 100% O2: Yes C- spine Precautions Maintained Throughout: Yes Mask Ventilation: Not attemptedFinal Airway Type: Endotracheal airwayFinal Endotracheal Airway: ETTTechnique Used: Video laryngoscopyDevices/Methods Used in Placement: SGALaryngoscope Blade/Videolaryngoscope Blade Size: 3ETT Size (mm): 7.0Measured from: LipsETT to Lips (cm): 21Placement Verified by: CO2 detection, direct visualization and equal breath sounds Laryngoscopic view: Grade I - full view of glottisRapid Sequence Induction (RSI): No Modified RSI: Yes Number of Attempts at Approach: 1[facility]COVID[facility]19 qualitative PCR 2020-04-17 08:09:42 Test Item Value Reference Range Interpretation Comments Interpretation (test Negative results do code = 9212800) not preclude 2019-nCoV infection and should not be used as the sole basis for treatment or other patient management decisions. Negative results must be combined with clinical observations, patient history, and epidemiological information. COVID-19 qualitative Not-Detected Not-Detected PCR result (test code = 29176-4) COVID-19 qualitative See link below for C ase Number: PCR (test code = PDF Lab Report [id number]) [facility] and [id number] 13:26:00 Test Item Value Reference Range Interpretation Comments ABO grouping (test code = 883-9) A Rh type (test code = 64679-0) POS Antibody screen (gel) (test code = NEG 890-4) [facility]Hemoglobin [id number] 13:08:30 Test Item Value Reference Range Interpretation Comments Hemoglobin A1C (test 6.1 % 4-5.6 H HbA1c c utoffs for code = 09070-5) diagnosing diabetes:4.0% - 5.6% = normal5.7% - 6.4% = increased risk for diabetes (prediabetes)9> =6.5% = nvsjvlna1Lvjn s for glycemic contro l (ADA 2016)< 7.0% Ta rget for non adults with alisson betes. More or less stringent targe ts may be appropriate for individual jaycob ents. <7.5% Target for Children and adolescents wit h type 1 diabetes. Lab Interpretation (test Abnormal code = 75975-1) [facility]Comprehensive metabolic [id number] 13:25:00 Test Item Value Reference Interpretation Comments Range Glucose (test code 112 mg/dL 65-99 H Fasting = 2345-7) reference inter di For someone wit hout known diabetes, a glucose valuebe tween 100 and 125 mg/ dL is consistent withprediabetes and should be confi rmed with afollow-up test. BUN (test code = 16 mg/dL 05-12 3094-0) Creatinine (test 1.03 mg/dL 0.6-0.88 H For patient s >49 code = 2160-0) years of age, the reference limit for Creatinine is approximately 1 3% higher for peopleidentifie d as -Jennyfer n. EGFR Non-Afr. 49 > OR = 60 L Namibian (test code mL/min/1.73m2 = 2775) EGFR 57 > OR = 60 L Namibian (test code mL/min/1.73m2 = 93319-6) BUN/creatinine 16 6- 22 (calc) ratio (test code = 3097-3) Sodium (test code = 136 mmol/L 600-948 0060-2) Potassium (test 4.8 mmol/L 3.5-5.3 code = 2823-3) Chloride (test code 99 mmol/L 98-110 = 5-0) CO2 (test code = 29 mmol/L 20-32 2027-9) Calcium (test code 9.7 mg/dL 8.6-10.4 = 24619-4) Protein (test code 6.1 g/dL 6.1-8.1 = 2885-2) Albumin, S (test 3.6 g/dL 3.6-5.1 code = 1751-7) Globulin, total 2.5 1.9- 3.7 g/dL (test code = (calc) 84967-5) Albumin/globulin 1.4 1.0- 2.5 ratio (test code = (calc) 1759-0) Total bilirubin 0.4 mg/dL 0.2-1.2 (test code = 1974-) Alkaline 34 U/L 37-153 L phosphatase (test code = 6768-6) AST (test code = 16 U/L 10-35 1919-8) ALT (test code = 13 U/L -1741-6) RAC (test code = Performing RAC) Organization Information: Site ID: [facility] Address: [address] [place] [id number] Director: Gaston Ball Lab Interpretation Abnormal (test code = 89882-2) [facility] MethodistProthrombin time with [id number] 13:25:00 Test Item Value Reference Range Interpretation Comments INR (test code = 1.0 Reference R cheyanne 6301-6) 0.9-1.1Moderate -i ntensity Warfar in Therapy 2.0-3.0Higher-i nt ensity Warfarin Therapy 3.0-4 .0 Prothrombin time 10.6 9.0- 11.5 sec For more (test code = information on 8152-2) this test, go to:[email or web address] [email or web address] [email or web address] 04 RAC (test code = Performing RAC) Organization Information: Site ID: [facility]: [facility] Address: [address] [place] [address] [place] [address] Director: Gaston Ball [facility] MethodistPartial thromboplastin time, [id number] 13:25:00 Test Item Value Reference Interpretation Comments Range PTT (test 23 22- 34 sec This test has not been code = [place] [address]-6) monitoringunfra ctionated heparin therapy . For testing thatis validate d for this type of therapy , please referto the Hep jennifer Anti-Xa assay (test [place] e [address]). For additional info rmation, please refer [email or web address] ion.[email or web address]/faq/ ROG932(This link is being p rovided for informational/e ducational purposes only.) RAC (test Performing code = Organization RAC) Information: Site ID: RGA Name: [facility] Address: [address] [place] [id number] Director: Gaston Ball [facility] MethodistURINALYSIS, COMPLETE, WITH REFLEX TO [id number] 13:25:00 Test Item Value Reference Range Interpretation Comments Color, UA (test code = YELLOW YELLOW 5778-6) Appearance (test code = CLOUDY CLEAR A 5767-9) Specific gravity, urine 1.016 1.001-1.035 (test code = 5811-5) pH, urine (test code = < OR = 5.0 5.0-8.0 5803-2) Glucose, urine (test NEGATIVE NEGATIVE code = 05738-2) Bilirubin, UA (test NEGATIVE NEGATIVE code = 5770-3) Ketones, UA (test code NEGATIVE NEGATIVE = 2514-8) Occult blood, urine NEGATIVE NEGATIVE (test code = 5794-3) Protein, UA (test code NEGATIVE NEGATIVE = 74328-9) Nitrite, UA (test code POSITIVE NEGATIVE A = 5802-4) Leukocyte esterase, UA 2+ NEGATIVE A (test code = 5799-2) WBC, UA (test code = 40-60 < OR = 5 /HPF A 5821-4) RBC, UA (test code = NONE SEEN < OR = 2 /HPF 22329-7) Squamous epithelial 0-5 < OR = 5 /HPF cells, UA (test code = 25463-6) Bacteria, UA (test code MANY NONE SEEN /HPF A = 5769-5) Calcium oxalate FEW NONE OR FEW /HPF crystals, UA (test code = 66604-0) Hyaline casts, UA (test NONE SEEN NONE SEEN /LPF code = 5796-8) Reflex (test code = CULTURE INDICATED - 630-4) RESULTS TO FOLLOW RAC (test code = RAC) Performing Organization Information: Site ID: RGA Name: [facility] Address: [address] [place] [id number] Director: Gaston Ball Lab Interpretation Abnormal (test code = 13985-0) [facility] Pre/Post [id number] 19:11:35 Test Item Value Reference Range Interpretation Comments Ventricular rate (test 74 code = 253) Atrial rate (test code 74 = 255) NM interval (test code 140 = 266) QRSD interval (test 80 code = 260) QT interval (test code 360 = 264) QTC interval (test code 399 = 265) P axis 1 (test code = -2 267) QRS axis 1 (test code = -34 268) T wave axis (test code -3 = 270) EKG impression (test Normal sinus code = 273) rhythm-Left axis deviation-Anterolatera l infarct , age undetermined-Abnormal ECG-In automated comparison with ECG of 17-FEB-2019 12:05,-Anterior infarct is now present-Anterolateral infarct is now present-Nonspecific T wave abnormality now evident in Lateral leads- [facility] MethodistXR Chest 2 [id number] 14:04:38Hm Interface, Radiology Results Incoming - 02/24/2020 2:07 PM CDTEXAMINATION: XR CHEST 2 VWCLINICAL HISTORY: Z01.818 Encounter for other preprocedural examination, PRE OPCOMPARISON: Single view chest from 03/09/2017IMPRESSION:PA and lateral radiographs of the chest was submitted for interpretation.The lungs are clear. No focal consolidation or pleural effusion. No pneumothorax or midline shift. Again noted is nonspecific elevation of the right hemidiaphragm.The mediastinal contours and cardiac augusto houette are unchanged and unremarkable.The bones are unremarkable. [facility]-[id number] Rastafarian
[2020-07-28] MEDS ORDERED: METHYLPREDNISOLONE 125 MG INJ ONE (11:00)
[2020-07-28] MEDS ORDERED: IPRATROPIUM BROM 0.5MG/2.5ML ONE (11:01)
[2020-07-28] MEDS ORDERED: ONDANSETRON 4 MG/2 ML VIAL ONE (11:01)
[2020-07-28] MEDS ORDERED: NA CHLORIDE 0.9% 1,000 ML ONE (11:01)
[2020-07-28] MEDS ORDERED: LEVALBUTEROL 1.25 MG/3 ML NEB ONE (11:01)
[2020-07-28] MEDS ORDERED: MORPHINE 2 MG/ML SYR ONE (11:01)
[2020-07-28 11:22] LABS: Absolute Lymphocytes (CBC) 2.6 K/uL (0.7-4.9); Basophils % 1.1 % (0-1.3); Hematocrit 29.6 % (36.0-45.0); Lymphocytes % 30.1 % (15.3-44.8); MPV 7.3 fL (7.6-11.3); RBC Red Blood Cell Count 3.84 M/uL (3.86-4.86)
[2020-07-28] MEDS ORDERED: CEFTRIAXONE/SWI 1gm 1 GM/10 ML SYR ONE (11:37)
[2020-07-28 11:44] LABS: ALT/SGPT 12 U/L (12-78); AST/SGOT 12 U/L (15-37); Albumin 2.8 g/dL (3.4-5.0); Alkaline Phosphatase 46 U/L (45-117); BUN Blood Urea Nitrogen 11 mg/dL (7-18); Bicarbonate 29 mmol/L (21-32); Bilirubin Direct 0.1 mg/dL (0-0.2); Bilirubin Total 0.4 mg/dL (0.2-1.0); Glucose Level 95 mg/dL (74-106); Lipase 121 U/L (73-393); Magnesium 1.8 mg/dL (1.8-2.4); NT PRO-BNP 561 pg/mL (<450); Protein, Total 6.4 g/dL (6.4-8.2); Sodium Level 136 mmol/L (136-145); Troponin (Emerg Dept Use Only) < 0.02 ng/mL (0.0-0.045)
--- NOTE | 2020-07-28 12:04 | RAD REPORT ---
EXAM DESCRIPTION: RAD - Chest Single View - 07/28/2020 11:04 am CLINICAL HISTORY: COUGH COMPARISON: February 2020 TECHNIQUE: AP portable chest image was obtained 07/28/2020 11:04 am . FINDINGS: Lung volumes are low with the interstitial pattern similar to comparison. No failure, volu me overload or focal infiltrate. Right hemidiaphragm elevation again noted. Heart and vasculature are normal. No measurable pleural effusion and no pneumothorax. No acute bony abnormality seen. No acute aortic findings suspected. IMPRESSION: No acute cardiopulmonary process. No significant change from comparison.
--- NOTE | 2020-07-28 12:10 | EDPHYS ---
Physician Documentation [facility] Name: Caridad hCadwick Age: 85 yrs Sex: Female : 1935 Arrival Date: 07/28/2020 Time: 10:00 Bed 18 Private MD: DIANA Physician [place] HPI: 07/28 10:50 This 85 yrs old Female presents to ER via EMS with complaints of Cough, Low nuris Back Pain. 10:50 The patient or guardian reports cough, difficulty breathing, flu symptoms, hoarse nuris voice. Onset: The symptoms/episode began/occurred 3 day(s) ago. Severity of symptoms: At their worst the symptoms were mild, in the emergency department the symptoms are unchanged. Modifying factors: The symptoms are alleviated by nothing, the symptoms are aggravated by nothing. Associated signs and symptoms: The patient has no apparent associated signs or symptoms. The patient has not experienced similar symptoms in the past. Historical: - Allergies: 10:02 Codeine; ss - PMHx: 10:02 Diabetes - NIDDM; Diverticulitis; GERD; Hypothyroidism; Hypertension; Rheumatoid ss Arthritis; - PSHx: 10:02 left foot; ss - Immunization history:: Adult Immunizations up to date. - Social history:: Smoking status: Patient denies any tobacco usage or history of. - Family history:: not pertinent. ROS: 10:50 Constitutional: Negative for fever, chills, and weight loss, Eyes: Negative for injury, nuris pain, redness, and discharge, ENT: Negative for injury, pain, and discharge, Neck: Negative for injury, pain, and swelling, Cardiovascular: Negative for chest pain, palpitations, and edema, Abdomen/GI: Negative for abdominal pain, nausea, vomiting, diarrhea, and constipation, Back: Negative for injury and pain, : Negative for injury, bleeding, discharge, and swelling, MS/Extremity: Negative for injury and deformity, Skin: Negative for injury, rash, and discoloration, Neuro: Negative for headache, weakness, numbness, tingling, and seizure, Psych: Negative for depression, anxiety, suicide ideation, homicidal ideation, and hallucinations, Allergy/Immunology: Negative for hives, rash, and allergies, Endocrine: Negative for neck swelling, polydipsia, polyuria, polyphagia, and marked weight changes, Hematologic/Lymphatic: Negative for swollen nodes, abnormal bleeding, and unusual bruising. 10:50 Respiratory: Positive for cough, shortness of breath, on exertion. Exam: 10:50 Constitutional: This is a well developed, well nourished patient who is awake, alert, nuris and in no acute distress. Head/Face: Normocephalic, atraumatic. Eyes: Pupils equal round and reactive to light, extra-ocular motions intact. Lids and lashes normal. Conjunctiva and sclera are non-icteric and not injected. Cornea within normal limits. Periorbital areas with no swelling, redness, or edema. ENT: Nares patent. No nasal discharge, no septal abnormalities noted. Tympanic membranes are normal and external auditory canals are clear. Oropharynx with no redness, swelling, or masses, exudates, or evidence of obstruction, uvula midline. Mucous membranes moist. Neck: Trachea midline, no thyromegaly or masses palpated, and no cervical lymphadenopathy. Supple, full range of motion without nuchal rigidity, or vertebral point tenderness. No Meningismus. Chest/axilla: Normal chest wall appearance and motion. Nontender with no deformity. No lesions are appreciated. Cardiovascular: Regular rate and rhythm with a normal S1 and S2. No gallops, murmurs, or rubs. Normal PMI, no JVD. No pulse deficits. Abdomen/GI: Soft, non-tender, with normal bowel sounds. No distension or tympany. No guarding or rebound. No evidence of tenderness throughout. Back: No spinal tenderness. No costovertebral tenderness. Full range of motion. Female : Normal external genitalia. Skin: Warm, dry with normal turgor. Normal color with no rashes, no lesions, and no evidence of cellulitis. MS/ Extremity: Pulses equal, no cyanosis. Neurovascular intact. Full, normal range of motion. Neuro: Awake and alert, GCS 15, oriented to person, place, time, and situation. Cranial nerves II-XII grossly intact. Motor strength 5/5 in all extremities. Sensory grossly intact. Cerebellar exam normal. Normal gait. Psych: Awake, alert, with orientation to person, place and time. Behavior, mood, and affect are within normal limits. 10:50 Respiratory: the patient does not display signs of respiratory distress, Respirations: normal, Breath sounds: are clear throughout, Respiratory rate: 22 11:50 Abdomen/GI: Rectal exam: is unremarkable, rectal tone Stool: normal, guaiac negative, nuris hemorrhoid(s), are not appreciated, mass, is not appreciated, swelling, is not appreciated, tenderness, is not appreciated, fecal impaction, is not appreciated. 12:07 ECG was reviewed by the Attending Physician. [facility] Vital Signs: 10:01 BP 127 / 59; Pulse 80; Resp 18; Temp 97.8(O); Pulse Ox 99% on R/A; Weight 66.22 kg; ss Height 5 ft. 1 in. (154.94 cm); Pain 8/10; 11:52 BP 138 / 67; Pulse 66; Resp 16; Pulse Ox 100% on Nebulizer Mask; Pain 7/10; ss 10:01 Body Mass Index 27.59 (66.22 kg, 154.94 cm) ss MDM: 10:03 Patient medically screened. nuris 10:52 Differential Diagnosis: Bronchitis Influenza Upper Respiratory Infection Sinusitis nuris Pharyngitis Asthma Exacerbation Viral Syndrome Pneumonia. Data reviewed: vital signs, nurses notes, lab test result(s), EKG, radiologic studies, plain films. Data interpreted: vehicle monitor technician: rate is 65 beats/min, rhythm is regular, Pulse oximetry: on room air is 99 %. Test interpretation: by ED physician or midlevel provider: ECG, plain radiologic studies. Counseling: I had a detailed discussion with the patient and/or guardian regarding: the historical points, exam findings, and any diagnostic results supporting the discharge/admit diagnosis, lab results, radiology results, the need for outpatient follow up. 07/28 10:44 Order name: Basic Metabolic Panel; Complete Time: 11:46 [facility] 07/28 10:44 Order name: CBC with Diff; Complete Time: 11:23 [facility] 07/28 10:44 Order name: LFT's; Complete Time: 11:46 [facility] 07/28 10:44 Order name: Magnesium; Complete Time: 11:46 [facility] 07/28 10:44 Order name: NT PRO-BNP; Complete Time: 11:46 [facility] 07/28 10:44 Order name: Troponin (emerg Dept Use Only); Complete Time: 11:46 [facility] 07/28 10:44 Order name: XRAY Chest (1 view); Complete Time: 12:05 [facility] 07/28 10:44 Order name: Lipase; Complete Time: 11:46 [facility] 07/28 10:44 Order name: COVID-19 [facility] 07/28 10:44 Order name: Flu [facility] 07/28 10:44 Order name: Urine Culture [facility] 07/28 10:46 Order name: Blood Culture Adult (2) [facility] 07/28 12:42 Order name: Urine Dipstick--Ancillary (enter results) 07/28 10:44 Order name: EKG; Complete Time: 10:45 [facility] 07/28 10:44 Order name: Cardiac monitoring; Complete Time: 10:51 [facility] 07/28 10:44 Order name: EKG - Nurse/Tech; Complete Time: 11:40 [facility] 07/28 10:44 Order name: IV Saline Lock; Complete Time: 11:40 [facility] 07/28 10:44 Order name: Labs collected and sent; Complete Time: 11:40 [facility] 07/28 10:44 Order name: O2 Per Protocol; Complete Time: 10:51 [facility] 07/28 10:44 Order name: O2 Sat Monitoring; Complete Time: 10:51 [facility] 07/28 10:44 Order name: Urine Dipstick-Ancillary (obtain specimen); Complete Time: 12:37 [facility] EC:07 Rate is 75 beats/min. Rhythm is regular. QRS [place] is Normal. MN interval is normal. QRS nuris interval is normal. QT interval is normal. No Q waves. T waves are Normal. No ST changes noted. Clinical impression: NSR w/ Non-specific ST/T Changes and No evidence of ischemia. Interpreted by me. Reviewed by me. Administered Medications: 11:30 Drug: NS 0.9% 1000 ml Route: IV; Rate: 125 ml/hr; Site: right antecubital; ss 11:30 Drug: Zofran (Ondansetron) 4 mg Route: IVP; Site: right antecubital; ss 11:32 Drug: morphine 2 mg Route: IVP; Site: right antecubital; ss 11:33 Drug: SOLU-Medrol 125 mg Route: IVP; Site: right antecubital; ss 11:38 Drug: AtroVENT Aerosol 0.5 mg Route: Inhalation; ss 11:38 Drug: Rocephin 1 grams Route: IV; Rate: per protocol; Site: right antecubital; ss 11:39 Drug: Xopenex 2.5 mg Route: Inhalation; ss 13:08 Drug: Augmentin 875 mg Route: PO; 13:08 Follow up: Response: Medication administered at discharge. Disposition: 07/28/20 12:09 Discharged to Home. Impression: Bronchitis, not specified as acute or chronic, Type 2 diabetes mellitus, Cough, Anemia, unspecified, Urinary tract infection, site not specified. - Condition is Stable. - Discharge Instructions: Acute Bronchitis, Adult, Type 2 Diabetes Mellitus, Diagnosis, Adult, Urinary Tract Infection, Adult, Cool Mist Vaporizer, Urinary Tract Infection, Adult, Bzvk-vt-Rcqj, Cough, Adult, Gpdl-nx-Badi, Cough, Adult, Type 2 Diabetes Mellitus, Diagnosis, Adult, Ksnq-wj-Ujuh. - Prescriptions for Augmentin 500- 125 mg Oral Tablet - take 1 tablet by ORAL route every 8 hours for 10 days; 30 tablet. Medrol (Kris) 4 mg Oral Tablets, Dose Pack - take 1 tablet by ORAL route as directed - follow package instructions; 1 packet. Albuterol Sulfate 90 mcg/actuation - inhale 1-2 puff by INHALATION route every 4-6 hours; 1 Inhaler. Bromfed DM 2- 30-10 mg/5 mL Oral syrup - take 10 milliliter by ORAL route every 6 hours; 160 milliliter. - Medication Reconciliation Form, Thank You Letter, Antibiotic Education, Prescription Opioid Use form. - Follow up: Private Physician; When: 2 - 3 days; Reason: Recheck today's complaints, Continuance of care, Re-evaluation by your physician. Follow up: Henry Abernathy MD; When: 2 - 3 days; Reason: Recheck today's complaints, Continuance of care, Re-evaluation by your physician. - Problem is new. - Symptoms have improved. Signatures: Dispatcher [employer] [place] MD MD cha Smirch, Shelby RN RN ss Corrections: (The following items were deleted from the chart) 12:10 12:09 07/28/2020 12:09 Discharged to Home. Impression: Bronchitis, not specified as nuris acute or chronic; Type 2 diabetes mellitus; Cough. Condition is Stable. Forms are Medication Reconciliation Form, Thank You Letter, Antibiotic Education, Prescription Opioid Use. Follow up: Private Physician; When: 2 - 3 days; Reason: Recheck today's complaints, Continuance of care, Re-evaluation by your physician. Problem is new. Symptoms have improved. [facility] 12:13 12:10 07/28/2020 12:09 Discharged to Home. Impression: Bronchitis, not specified as nuris acute or chronic; Type 2 diabetes mellitus; Cough. Condition is Stable. Forms are Medication Reconciliation Form, Thank You Letter, Antibiotic Education, Prescription Opioid Use. Follow up: Private Physician; When: 2 - 3 days; Reason: Recheck today's complaints, Continuance of care, Re-evaluation by your physician. Follow up: A Abernathy; When: 2 - 3 days; Reason: Recheck today's complaints, Continuance of care, Re-evaluation by your physician. Problem is new. Symptoms have improved. [facility] 12:48 12:13 07/28/2020 12:09 Discharged to Home. Impression: Bronchitis, not specified as nuris acute or chronic; Type 2 diabetes mellitus; Cough; Anemia, unspecified. Condition is Stable. Discharge Instructions: Acute Bronchitis, Adult, Type 2 Diabetes Mellitus, Diagnosis, Adult, Cool Mist Vaporizer, Cough, Adult, Uooh-ic-Rzsw, Cough, Adult, Type 2 Diabetes Mellitus, Diagnosis, Adult, Peye-xv-Oqjr. Prescriptions for Augmentin 500-125 mg Oral Tablet - take 1 tablet by ORAL route every 8 hours for 10 days; 30 tablet, Medrol (Rkis) 4 mg Oral Tablets, Dose Pack - take 1 tablet by ORAL route as directed - follow package instructions; 1 packet, Albuterol Sulfate 90 mcg/actuation - inhale 1-2 puff by INHALATION route every 4-6 hours; 1 Inhaler. and Forms are Medication Reconciliation Form, Thank You Letter, Antibiotic Education, Prescription Opioid Use. Follow up: Private Physician; When: 2 - 3 days; Reason: Recheck today's complaints, Continuance of care, Re-evaluation by your physician. Follow up: A Abernathy; When: 2 - 3 days; Reason: Recheck today's complaints, Continuance of care, Re-evaluation by your physician. Problem is new. Symptoms have improved. [facility] 13: 12:48 07/28/2020 12:09 Discharged to Home. Impression: Bronchitis, not specified as ss acute or chronic; Type 2 diabetes mellitus; Cough; Anemia, unspecified; Urinary tract infection, site not specified. Condition is Stable. Discharge Instructions: Acute Bronchitis, Adult, Type 2 Diabetes Mellitus, Diagnosis, Adult, Cool Mist Vaporizer, Cough, Adult, Yjgt-ls-Mosl, Cough, Adult, Type 2 Diabetes Mellitus, Diagnosis, Adult, Oqhi-wm-Nbpd. Prescriptions for Augmentin 500-125 mg Oral Tablet - take 1 tablet by ORAL route every 8 hours for 10 days; 30 tablet, Medrol (Kris) 4 mg Oral Tablets, Dose Pack - take 1 tablet by ORAL route as directed - follow package instructions; 1 packet, Albuterol Sulfate 90 mcg/actuation - inhale 1-2 puff by INHALATION route every 4-6 hours; 1 Inhaler, Bromfed DM 2-30-10 mg/5 mL Oral syrup - take 10 milliliter by ORAL route every 6 hours; 160 milliliter. and Forms are Medication Reconciliation Form, Thank You Letter, Antibiotic Education, Prescription Opioid Use. Follow up: Private Physician; When: 2 - 3 days; Reason: Recheck today's complaints, Continuance of care, Re-evaluation by your physician. Follow up: A Abernathy; When: 2 - 3 days; Reason: Recheck today's complaints, Continuance of care, Re-evaluation by your physician. Problem is new. Symptoms have improved. nuris
--- NOTE | 2020-07-28 12:10 | ER ---
Nurse's Notes [facility] Name: Caridad Chadwick Age: 85 yrs Sex: Female : 1935 Arrival Date: 07/28/2020 Time: 10:00 Bed 18 Private MD: Diagnosis: Bronchitis, not specified as acute or chronic;Type 2 diabetes mellitus;Cough;Anemia, unspecified;Urinary tract infection, site not specified Presentation: 07/28 10:01 Chief complaint: Patient states: cough x 3 days and low back pain that radiates down ss both legs x years that has gotten worse over the past week. Coronavirus screen: Client denies travel out of the [place] in the last 14 days. cough unrelated to allergies, Client presents with at least one sign or symptom that may indicate coronavirus-19. Standard/surgical mask placed on the client. Provider contacted for isolation considerations. Ebola Screen: Patient denies exposure to infectious person. Patient denies travel to an Ebola-affected area in the 21 days before illness onset. Onset of symptoms was July 25, 2020. 10:01 Method Of Arrival: EMS: [facility] ss 10:01 Acuity: ZOIE 3 ss 10:01 Initial Sepsis Screen: Does the patient meet any 2 criteria? No. Patient's initial ss sepsis screen is negative. Does the patient have a suspected source of infection? Yes: Productive cough/pneumonia. Risk Assessment: Do you want to hurt yourself or someone else? Patient reports no desire to harm self or others. Historical: - Allergies: 10:02 Codeine; ss - PMHx: 10:02 Diabetes - NIDDM; Diverticulitis; GERD; Hypothyroidism; Hypertension; Rheumatoid ss Arthritis; - PSHx: 10:02 left foot; ss - Immunization history:: Adult Immunizations up to date. - Social history:: Smoking status: Patient denies any tobacco usage or history of. - Family history:: not pertinent. Screenin:06 Abuse screen: Denies threats or abuse. Denies injuries from another. Nutritional ss screening: No deficits noted. Tuberculosis screening: Never had TB. Fall Risk None identified. Assessment: 10:15 General: Appears uncomfortable, Behavior is cooperative, restless, Reports increased ss low back pain over the past week. Is chronic x years Denies fever. Pain: Complains of pain in lumbar area, left low back and right low back Pain radiates to right leg and left leg Pain currently is 8 out of 10 on a pain scale. Quality of pain is described as aching, throbbing, Is continuous. Neuro: Level of Consciousness is awake, alert, obeys commands, Oriented to person, place, time, situation. Cardiovascular: Capillary refill < 3 seconds is brisk in bilateral fingers. Respiratory: Reports cough that is hacking, persistent since x 3 days Airway is patent Respiratory effort is even, unlabored, Respiratory pattern is regular, symmetrical, Breath sounds are clear bilaterally. GI: Patient currently denies abdominal pain, diarrhea, nausea, vomiting. : Denies burning with urination, urinary frequency. EENT: Nares are clear Oral mucosa is moist. Throat is clear. Derm: Skin is intact, is healthy with good turgor, Skin is dry, Skin is pink, warm \T\ dry. normal. Musculoskeletal: Circulation, motion, and sensation intact. Range of motion: intact in all extremities, Swelling absent. 11:52 Reassessment: Patient appears in no apparent distress at this time. Patient and/or ss family updated on plan of care and expected duration. Pain level reassessed. Patient is alert, oriented x 3, equal unlabored respirations, skin warm/dry/pink. Pt reports pain has decreased to 7/10 after medication administration Patient states feeling better. 12:27 Reassessment: discharge pending urine analysis. Pt in restroom attempting to give ss specimen at this time. Vital Signs: 10:01 BP 127 / 59; Pulse 80; Resp 18; Temp 97.8(O); Pulse Ox 99% on R/A; Weight 66.22 kg; Height 5 ft. 1 in. (154.94 cm); Pain 8/10; 11:52 BP 138 / 67; Pulse 66; Resp 16; Pulse Ox 100% on Nebulizer Mask; Pain 7/10; ss 10:01 Body Mass Index 27.59 (66.22 kg, 154.94 cm) ED Course: 10:00 Patient arrived in ED. 10:01 Triage completed. 10:02 [place] MD is Attending Physician. [facility] 10:02 Arm band placed on right wrist. 10:05 Page Bland RN is Primary Nurse. 10:06 Patient has correct armband on for positive identification. Placed in gown. Bed in low ss position. Call light in reach. ekg monitor on. Pulse ox on. NIBP on. 10:52 First set of blood cultures drawn by me. Patient maintains SpO2 saturation greater than 95% on room air. 11:04 XRAY Chest (1 view) In Process Unspecified. EDMS 11:11 Second set of blood cultures drawn. Inserted saline lock: 20 gauge in right antecubital ss area, using aseptic technique. Blood collected. 11:47 COVID-19 Sent. dh3 12:10 Henry Abernathy MD is Referral Physician. [facility] 12:39 Urine collected: clean catch specimen, cloudy. 3 13:08 No provider procedures requiring assistance completed. IV discontinued, intact, ss bleeding controlled, No redness/swelling at site. Pressure dressing applied. Administered Medications: 11:30 Drug: NS 0.9% 1000 ml Route: IV; Rate: 125 ml/hr; Site: right antecubital; ss 11:30 Drug: Zofran (Ondansetron) 4 mg Route: IVP; Site: right antecubital; ss 11:32 Drug: morphine 2 mg Route: IVP; Site: right antecubital; ss 11:33 Drug: SOLU-Medrol 125 mg Route: IVP; Site: right antecubital; ss 11:38 Drug: AtroVENT Aerosol 0.5 mg Route: Inhalation; ss 11:38 Drug: Rocephin 1 grams Route: IV; Rate: per protocol; Site: right antecubital; ss 11:39 Drug: Xopenex 2.5 mg Route: Inhalation; ss 13:08 Drug: Augmentin 875 mg Route: PO; 13:08 Follow up: Response: Medication administered at discharge. Outcome: 12:09 Discharge ordered by . [facility] 13:08 Discharged to home via wheelchair, with family. 13:08 Condition: improved 13:08 Discharge instructions given to patient, family, Instructed on discharge instructions, follow up and referral plans. medication usage, Demonstrated understanding of instructions, follow-up care, medications, Prescriptions given X 4. 13:09 Patient left the ED. ss Addendum: 07/31/2020 11:35 Addendum: Culture Results: Positive urine culture. No further action required. Bacteria i w sensitive to prescribed antibiotic. 08/01/2020 16:46 Addendum: COVID-19 Result: Negative result given to RN to notify pt. Attempted to h b contact pt regarding negative COVID-19 swab results. Unable to leave voice mail due to the number provided was either not a working number, the voice mail has not been set up, or the voice mailbox is full.. Signatures: Dispatcher [employer] [place] MD MD cha Williams, Irene, RN RN iw Smirch, Shelby, RN RN ss Baxter, Heather, RN RN [facility]
[2020-07-28] MEDS ORDERED: AMOX/K CLAV 875 MG TAB ONE (13:02)
[2020-07-28 13:27] VITALS: TEMP 97.8
[2020-07-28 13:28] VITALS: BP 138/67; O2SAT 100
[2020-07-28 13:42] LABS: Urine Blood NEGATIVE (NEG); Urine Glucose NEGATIVE (NEG); Urine Protein NEGATIVE (NEG); Urine Specific Gravity 1.015 (1.005-1.030)
--- NOTE | 2020-07-30 07:47 | EKG ---
Test Date: 2020-07-28 Test Time: 11:11:21 Electronics Mechanic: DAVID MEASUREMENT RESULTS: Intervals: Rate: 75 IA: 152 QRSD: 76 QT: 350 QTc: 390 Delta: P: 54 IA: 152 QRS: -36 T: 66 INTERPRETIVE STATEMENTS: Normal sinus rhythm Left axis deviation Low voltage QRS Cannot rule out Anterior infarct, age undetermined Abnormal ECG Compared to ECG 02/24/2020 18:34:50 Low QRS voltage now present Myocardial infarct finding still present Electronically Signed On 07-30-20 07:43:23 CDT by Khai Espinal
== END 2020-07-28 13:09 | disposition home or self-care (01) ==
LOC: ER 09:58
DX: J40 Bronchitis, not specified as acute or chronic (principal); Z20.828 Contact with and (suspected) exposure to other viral communicable diseases; N39.0 Urinary tract infection, site not specified; D64.9 Anemia, unspecified; E11.9 Type 2 diabetes mellitus without complications; I10 Essential (primary) hypertension; Z88.5 Allergy status to narcotic agent
CPT/HCPCS: 93005; 87040 ×2; 87088; 85025; 87086; 80048; 36415; 83735; 80076; 87077; 87186; 81003; 84484; 83690; 83880; 87804 ×2; 71045; 96375; 96374; 99285; U0002; J2270; J0696; J7030; J2930; J2405

== ENCOUNTER 2020-11-07 17:06 | Emergency (ER) | payer OTHER ==
--- OUTSIDE RECORDS SUMMARY | 2020-11-07 17:10 | XMS REPORT | Continuity of Care Document ---
:1935 Author Organization [facility] t Address [address] [place] [address] Care Team Providers Name Role Phone Murtaza Abernathy MD Primary Care Physician Clarita Guaman MD. Attending Clinician Mike Fagan MD Attending Clinician Sy Thorpe MD Attending Clinician [phone] Avery Heard MD Attending Clinician Francisco ROJO Attending Clinician Víctor DELANEY W. Attending Clinician Norman MAIRE Attending Clinician Unavailable Felicitas Coronel Attending Clinician Katerin Gutierrez Attending Clinician Rajwinder Willoughby Attending Clinician Lia DELANEY, PAngi Attending Clinician Lilian DELANEY, A. Attending Clinician HIRAL Admitting Clinician Unavailable LIA Admitting Clinician Unavailable Payers Payer Name Policy Type Policy Effective Date Expiration Date Sour ce Number UHC MEDICAREUHC [id number] 2020 [place] [employer] MEDICARE 00:00:00 Sabianism [id number] 021-PresentPPO Problems Condition Condition Condition Status Onset Resolution Last Treating Co mments Source Name Details Category Date Date Treatment Clinician Date Hyperlipid Hyperlipid Disease Active [facility] [place] emia emia 04-19 Methodi 00:00: st 00 DM DM Disease Active Helen (diabetes (diabetes 04-19 Meth vivek mellitus) mellitus) 00:00: st 00 UTI UTI Disease Active Helen (urinary (urinary 04-19 Method i tract tract 00:00: st infection) infection) 00 Spondyloli Spondyloli Disease Active Overview : Helen sthesis at sthesis at 2-12 Added Me thodi L4-L5 L4-L5 00:00: automatic st level level 00 ally from request for surgery [id number] Spondyloli Spondyloli Disease Active Overview : Helen sthesis at sthesis at 2-12 Added Me thodi L5-S1 L5-S1 00:00: automatic st level level 00 ally from request for surgery [id number] Trochanter Trochanter Disease Active Overview : Helen ic ic 2-12 Added Methodi bursitis bursitis 00:00: automatic st of right of right 00 ally from hip hip request for surgery [id number] Diverticul Diverticul Disease Active H [place] itis itis 5-20 Methodi 00:00: st 00 Abscess of Abscess of Disease Active H [place] sigmoid sigmoid 5-07 Methodi colon colon 00:00: st 00 Other Other Disease Active 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 Me thodi s with s with 00:00: st radiculopa radiculopa 00 thy, thy, lumbar lumbar region region Spondyloli Spondyloli Disease Active H [place] sthesis of sthesis of 4-10 Me thodi lumbar lumbar 00:00: st region region 00 Primary Primary Disease Active 2015-10 Helen osteoarthr osteoarthr 0-17 Me thodi itis of itis of 00:00: st right knee right knee 00 Rheumatoid Rheumatoid Disease Active H [place] arthritis arthritis 7-21 Meth vivek involving involving 00:00: st multiple multiple 00 sites with sites with positive positive rheumatoid rheumatoid factor factor Follow-up Follow-up Disease Active [facility] [employer] examinatio examinatio 7-19 Me thodi n n 00:00: st following following 00 treatment treatment with with high-risk high-risk medication medication Hypothyroi Hypothyroi Disease Active [place] dism dism 04-03 Methodi 00:00: st 00 S/P S/P Disease Active Helen [place] 04-03 Methodi 00:00: st 00 Hypertensi Hypertensi [...] Date Stop Date Source Natural brother Diabetes [facility] ethodist Natural father Lung cancer [facility] ethodist Natural mother Old age [facility] thodist Social History Social Habit Start Date Stop Date Quantity Comments Source Sex Assigned At [facility] ethodist Exposure to Not sure Helen Meth dist SARS-CoV-2 (event) Tobacco use and 2020-09-17 2020-09-17 Never used [facility] ethodist exposure 00:00:00 00:00:00 Alcohol intake 2020-09-17 2020-09-17 Current drinker [place] [facility] Sabianism 00:00:00 00:00:00 of alcohol (finding) Alcohol Comment 2019-10-31 2019-10-31 1-2 times a year Ray Hawkins 00:00:00 00:00:00 Smoking Status Start Date Stop Date Source Never smoker Helen Methodis t Medications Ordered Filled Start Stop Current Ordering Indication Dosage Frequency Signature Comments Components Source Medication Medication Date Date Medication? Clinician (SIG) Name Name hydrOXYchlo Yes QD Take by Ray simpson roQUINE 1-05 mouth Methodi (PLAQUENIL) 12:21: daily. st 200 mg 38 tablet rosuvastati 2019-10 Yes 5mg QD Take 5 mg [place] (CRESTOR) 2-11 by mouth Meth vivek 5 MG tablet 13:56: nightly. st 57 golimumab 2019-10 Yes Infuse [place] (SIMPONI 2-11 into a Methodi ARIA IV) 13:56: venous st 57 catheter. Every 8 weeks predniSONE 2019-10 Yes 5mg QD Take 5 mg [place] (DELTASONE) 2-11 by mouth Meth vivek 5 mg tablet 13:56: daily. st 57 olmesartan 2019-10 Yes 40mg QD Take 40 mg [place] (BENICAR) 2-11 by mouth Method i 40 MG 13:56: daily. st tablet 57 levothyroxi 2019-10 Yes 75ug QD Take 75 [employer] ne 2-11 mcg by Methodi (SYNTHROID, 13:56: mouth st LEVOXYL) 75 57 daily. mcg tablet metFORMIN 2019-10 Yes 500mg Q.5D Take 500 [facility] [address] (GLUCOPHAGE 2-11 mg by Methodi ) 500 mg 13:56: mouth 2 st tablet 57 (two) times a day with meals. omeprazole 2019-10 Yes 20mg QD Take 20 mg [place] (PriLOSEC) 2-11 by mouth Metho di 20 MG 13:56: daily. st capsule 57 glipiZIDE 2019-10 Yes 2.5mg QD Take 2.5 [facility] (GLUCOTROL) 2-11 mg by Methodi 2.5 MG 24 13:56: mouth st hr tablet 57 daily. carvediloL 2019-10 Yes 12.5mg Q.5D Take 12.5 [facility] (COREG) 2-11 mg by Methodi 12.5 MG 13:56: mouth 2 st tablet 57 (two) times a day with meals. DULoxetine 2019-10 Yes 30mg QD Take 30 mg [place] (CYMBALTA) 2-11 by mouth Metho di 30 MG 13:56: daily. st capsule 57 traMADoL 2019-10 Yes acute pain 50mg Q6H Take 50 mg Mc[place] (ULTRAM) 50 2-11 by mouth Meth vivek mg tablet 13:56: every 6 st 57 (six) hours as needed for moderate pain .acute pain. traMADoL 2019-10- No TAKE 1 [place] (ULTRAM) 50 0-08 10-28 TABLET BY Nc thodi mg tablet 00:00: 23:[address] 00 :00 EVERY 6 HOURS NEEDED FOR PAIN traMADoL 2020- No chronic 50mg Q6H Take 1 [facility] (Ultram) 50 8-19 10-08 pain tablet (50 M ethodi mg tablet 00:00: 00:00 mg total) st 00 :00 by mouth every 6 (six) hours as needed for moderate pain .chronic pain. pregabalin 2019- No 50mg Q.5D Take 1 [place] (Lyrica) 50 8 09-11 capsule Meth vivek MG capsule 00:00: 23:59 ([address] 00 :00 total) by mouth 2 (two) times a day for 30 days. diclofenac 2020- No Nontraumati Q.25D Apply [place] (VOLTAREN) 05-08 11-24 c topically Met hodi 1 % gel 00:00: 00:00 incomplete 4 (four) st 00 :00 tear of times a right day. Apply rotator 2 gms to cuff affected area 4 times a day methocarbam 2019- No 750mg Q.[id number] Take 1 [place] oL 04-23 [id number] tablet Method i (Robaxin-75 00:00: 00:00 3D ([address] 0) 750 MG 00 :00 total) by tablet mouth 3 (three) times a day. amoxicillin 2020- No 500mg Q.5D Take 1 [place] -pot 04-19 07-14 tablet Methodi clavulanate 00:00: 23:59 ([address] (Augmentin) 00 :00 total) by 500-125 mg mouth 2 per tablet (two) times a day for 12 days. traMADoL 2020- No chronic acute [place] (ULTRAM) 50 04-19 07-12 pain pain, Method i mg tablet 00:00: 23:[address] 00 :00 pain. Take 1 tablet by mouth every 4-6 hours as needed for pain. sulfamethox 2019- 2020- No 1{tbl} Q.5D Take 1 [place] azole-trime 04-17 tablet by Nc thodi thoprim 00:00: 00:[address] (Bactrim 00 :00 (two) DS) 800-160 times a mg per day for 10 tablet days. amLODIPine 2019- 2020- No 5mg QD Take 5 mg [place] (NORVASC) 5 04-16 by mouth Met hodi mg tablet 11:15: 00:[address] 03 :00 traMADoL 2019-0 2020- No chronic chronic [place] (ULTRAM) 50 6-23 07-02 pain pain. Take M ethodi mg tablet 00:00: 00:[address] 00 :00 by mouth every 6-8 hours as needed for pain. nitrofurant 2019- 2020- No 100mg Q.5D Take 1 [place] oin, 6-18 06-25 capsule Methodi macrocrysta 00:00: 23:59 ([address] l-monohydra 00 :00 total) by te, mouth 2 (Macrobid) (two) 100 MG times a capsule day for 7 days. multivitami 2019-0 2020- No 1{tbl} QD Take 1 [place] with 5-08 05-08 tablet by Methodi minerals 12:40: 00:[address] tablet 30 :00 daily. linaGLIPtin 2019- 2020- No 5mg QD Take 5 mg [place] (TRADJENTA) 5-08 05-08 by mouth Met hodi 5 mg tablet 12:40: 00:[address] 23 :00 breakfast. naproxen 2019-0 2020- No 220mg Q12H Take [address] sodium 5-08 05-08 mg by Methodi (ALEVE) 220 12:37: 00:[address] MG tablet 58 :00 every 12 (twelve) hours as needed for mild pain. metFORMIN 2019-0 2020- No 1000mg Q.5D Take 1,000 [place] (GLUCOPHAGE 5-08 05-08 mg by Method i ) 1,000 mg 12:37: 00:[address] tablet 42 :00 (two) times a day with meals. naproxen 2019-0 2020- No 500mg Q.5D Take 1 [place] (NAPROSYN) 2-03 05-08 tablet Method i 500 MG 00:00: 00:00 ([address] tablet 00 :00 total) by mouth 2 (two) times a day. carvedilol 2020- No TK 1 T PO [place] (COREG) 7-25 05-08 BID Methodi 6.25 MG 00:00: 00:00 st tablet 00 :00 DULoxetine 2016- 2020- No QD nightly. [place] (CYMBALTA) 03-2708 Methodi 60 MG 00:00: 00:00 st capsule 00 :00 RESTASIS 2016-0 Yes 1[drp] Administer [place] 0.05 % 06-24 1 drop to Methodi ophthalmic 00:00: both eyes st emulsion 00 daily. Vital Signs Vital Name Observation Time Observation Value Comments Source Systolic blood 2020-09-12 11:30:00 135 mm[Hg] Atiya n Sabianism pressure Diastolic blood 2020-09-12 11:30:00 63 mm[Hg] Hector on Sabianism pressure Heart rate 2020-09-12 11:30:00 66 /min Ras Hawkins Respiratory rate 2020-09-12 11:30:00 16 /min Juan Hawkins Oxygen saturation in 2020-09-12 11:30:00 98 /min Ras Hawkins Arterial blood by Pulse oximetry Body temperature 2020-09-12 10:45:00 36.67 Blanca Juan Hawkins Body height 2020-06-05 13:10:00 154.9 cm Ras Hawkins Body weight 2020-06-05 13:10:00 66.225 kg Ras Hawkins BMI 2020-06-05 13:10:00 27.59 kg/m2 Ras Hawkins Procedures Procedure Date / Time Performing Clinician Source Performed [place] ARTHROCENTESIS 2020-09-28 14:10:00 Juan Antonio Fagan ASPIR&/INJ MAJOR JT/BURSA W/O US OR [place] < 1 HOUR 2020-09-12 10:47:06 Jeovanny Thorpe MRI LUMBAR SPINE W WO 2020-07-24 15:04:31 Sonny Guaman CONTRAST ESTIMATED GFR 2020-07-24 14:03:00 Sonny Guaman Met adrián POC CREATININE 2020-07-24 14:03:00 Sonny Guaman Met adrián XR KNEE 4+ VW BILATERAL 2020-06-05 13:19:37 Malcolm Renee [place] ARTHROCENTESIS 2020-05-08 13:10:00 Juan Antonio Fagan ASPIR&/INJ MAJOR JT/BURSA W/O US BASIC METABOLIC PANEL 2020-04-20 06:30:00 Soo Nava HC COMPLETE BLD COUNT 2020-04-20 06:30:00 KeSoo bond Hill davila Sabianism W/AUTO DIFF ESTIMATED GFR 2020-04-20 06:30:00 Brandy Soo Mcginnis Me thodist POC GLUCOSE 2020-04-19 11:40:00 Syeda Fitzgerald ethodist OR FL < 1 HOUR 2020-04-19 10:50:00 Sonny Guaman Met hodist URINE CULTURE 2020-04-19 09:23:00 Sonny Guaman Met hodist URINALYSIS SCREEN AND 2020-04-19 09:23:00 Sonny Guaman on Sabianism MICROSCOPY, WITH REFLEX TO CULTURE [place] AN ELECTIVE 2020-04-19 09:17:55 Shanice Quintana ethodist ENDOTRACHEAL AIRWAY POC GLUCOSE 2020-04-19 08:28:00 Sonny Guaman Met hodist POC GLUCOSE 2020-04-19 08:26:00 Sonny Guaman Met hodist POC GLUCOSE 2020-04-19 08:25:00 Sonny Guaman Met hodist URINE CULTURE 2020-04-19 07:54:00 Sonny Guaman Met hodist URINALYSIS SCREEN AND 2020-04-19 07:30:00 Sonny Guaman on Sabianism MICROSCOPY, WITH REFLEX TO CULTURE URINE CULTURE 2020-04-16 13:13:00 Sonny Guaman Met hodist URINALYSIS SCREEN AND 2020-04-16 12:17:00 Sonny Guaman on Sabianism MICROSCOPY, WITH REFLEX TO CULTURE HC COMPLETE BLD COUNT 2020-04-16 12:05:00 Magy Bashir on Sabianism W/AUTO DIFF TYPE AND SCREEN 2020-04-16 12:05:00 Magy Bashir Met hodist HEMOGLOBIN A1C 2020-04-16 12:05:00 Magy Bashir Met hodist COVID-19 QUALITATIVE PCR 2020-04-16 11:30:00 Magy Bashir Sabianism COVID-19 QUALITATIVE PCR 2020-04-05 13:02:00 Magy Bashir Sabianism URINE CULTURE 2020-04-03 14:17:00 Horacio Vernon ethodist COMPREHENSIVE METABOLIC 2020-04-03 14:17:00 Horacio Vernon PANEL PARTIAL THROMBOPLASTIN 2020-04-03 14:17:00 Horacio Vernon TIME (PTT) URINALYSIS, COMPLETE, WITH 2020-04-03 14:17:00 [...] BLD COUNT 2020-02-24 12:48:00 Sonny Guaman on Sabianism W/AUTO DIFF COMPREHENSIVE METABOLIC 2020-02-24 12:48:00 Sonny Guaman PANEL PARTIAL THROMBOPLASTIN 2020-02-24 12:48:00 Sonny Guaman Sabianism TIME (PTT) PROTHROMBIN TIME WITH INR 2020-02-24 12:48:00 Sonny Guaman TYPE AND SCREEN 2020-02-24 12:48:00 Magy Bashir Met adrián HEMOGLOBIN A1C 2020-02-24 12:48:00 Magy Bashir Met adrián ESTIMATED GFR 2020-02-24 12:48:00 Sonny Guaman Met adrián Plan of Care Planned Activity Planned Date Details Comments Source Future Scheduled 2020-05-19 INFLUENZA VACCINE Atiya Hawkins Test 00:00:00 [code = INFLUENZA VACCINE] Future Scheduled 1998 65+ PNEUMOCOCCAL Ras Hawkins Test 00:00:00 VACCINE (1 of 1 - PPSV23) [code = 65+ PNEUMOCOCCAL VACCINE (1 of 1 - PPSV23)] Future Scheduled 1983 SHINGLES VACCINES (#1) [place] [facility] Test 00:00:00 [code = SHINGLES VACCINES (#1)] Future Scheduled 1949 COVID-19 VACCINE (1 of [place] [facility] Test 00:00:00 2) [code = COVID-19 VACCINE (1 of 2)] Future Scheduled 1943 DIABETES: RETINAL EYE [place] [facility] Test 00:00:00 EXAM [code = DIABETES: RETINAL EYE EXAM] Future Scheduled 1943 DIABETIC FOOT EXAM [place] [facility] Test 00:00:00 [code = DIABETIC FOOT EXAM] Future Scheduled 1945 URINE MICROALBUMIN [place] [facility] Test 00:00:00 [code = URINE MICROALBUMIN] Encounters Start End Encounter Admission Attending Care Care Encounter Source Date/Time Date/Time Type Type Clinicians Facility Department ID 2020-10-23 2020-10-23 Outpatient DONNA [facility] [id number] Helen 00:00:00 00:00:00 SONNY 490 Method i 2020-09-28 2020-09-28 Outpatient FAGAN, [facility] [id number] Helen 00:00:00 00:00:00 JUAN ANTONIO 818 Method i 2020-09-12 2020-09-12 Outpatient PECCORA, [facility] 021 [id number] Helen 00:00:00 00:00:00 [facility] [address] 2020-08-17 2020-08-17 [facility] [id number] Helen 00:00:00 00:00:00 SONNY [address] 2020-07-24 2020-07-24 [facility] [id number] Helen 00:00:00 00:00:00 SONNY [address] 2020-07-02 2020-07-02 [facility] [id number] Helen 00:00:00 00:00:00 SONNY [address] 2020-06-05 2020-06-05 Outpatient MAFFET, [facility] [id number] Helen 00:00:00 00:00:00 MALCOLM [address] 2020-06-05 2020-06-05 Outpatient MAFFET, [facility] [id number] Helen 00:00:00 00:00:00 MALCOLM [address] 2020-05-30 2020-05-30 Outpatient WOOD, [facility] [id number] Helen 00:00:00 00:00:00 SONNY [address] 2020-05-08 2020-05-08 Outpatient FAGAN, [facility] [id number] Helen 00:00:00 00:00:00 VINCSTERLING 550 Method i 2020-05-02 2020-05-02 Outpatient RADLEY, [facility] [id number] Helen 00:00:00 00:00:00 LEÓN [address] 2020-04-19 2020-04-20 Outpatient JOGLEKAR, [facility] 021 [id number] Helen 00:00:00 00:00:00 SYEDA [address] 2020-04-16 2020-04-16 Outpatient WOOD, [facility] [id number] Helen 00:00:00 00:00:00 SONNY [address] 2020-04-05 2020-04-05 Outpatient WOOD, [facility] [id number] Helen 00:00:00 00:00:00 SONNY [address] 2020-02-24 2020-02-24 Outpatient WOOD, [facility] [id number] Helen 00:00:00 00:00:00 SONNY [address] 2020-02-24 2020-02-24 Outpatient WOOD, [facility] [id number] Helen 00:00:00 00:00:00 SONNY [address] 2020-02-24 2020-02-24 Outpatient WOOD, [facility] [id number] Helen 00:00:00 00:00:00 SONNY [address] 2020-02-24 2020-02-24 Outpatient WOOD, [facility] [id number] Helen 00:00:00 00:00:00 SONNY 808 Method i 2019-11-02 2019-11-02 Outpatient PECCORA, [facility] 021 [id number] Helen 00:00:00 00:00:00 METHODIST 902 Meth vivek 2019-09-22 2019-09-22 Outpatient PECCORA, [facility] 021 [id number] Helen 00:00:00 00:00:00 METHODIST 490 Meth vivek 2019-07-28 2019-07-28 Outpatient PECCORA, [facility] 021 [id number] Helen 00:00:00 00:00:00 [facility] [address] Results Test Description Test Time Test Comments Results Result Sourc e Comments Large Joint 2020-09-18 Juan Antonio Fagan MD [place] Arthrocentesis: 1 09/28/2020 5:39 Sabianism shoulder, R 14:10:00 PMLarge Joint subacromial Arthrocentesis: bursa shoulder, R subacromial bursaConsent given by: patientSite marked: site markedTimeout: Immediately prior to procedure a time out was called to verify the correct patient, procedure, equipment, client technical support associate and site/side marked as required Supporting DocumentationIndicatio ns: pain Procedure DetailsPreparation: Patient was prepped and draped in the usual sterile fashionUltrasound guided: noLocation: shoulder - R subacromial bursa Right side:Needle size: 22 GApproach: posteriorRight shoulder medications administered: 5 mL lidocaine 10 mg/mL (1 %); 40 mg methylPREDNISolone acetate 40 mg/mLPatient tolerance: patient tolerated the procedure well with no immediate complications OR FL < 1 Hour 2020-08-20 [facility] [address] 10:50:17 - 09/12/2020 10:53 AM CSTEXAMINATION: OR [place] < 1 HOURCLINICAL HISTORY: 85 years Female, painIMPRESSION:Fluoros copy was provided. No radiologist present. Please see procedure report for discussion of procedure, findings.[id number] [facility] Rad[facility] Results Meth odist 15:50:29 - 07/24/2020 3:53 PM CDTEXAMINATION: MRI LUMBAR SPINE W [...] effect on the exiting bilateral L5 nerve roots.[id number] POC creatinine 2020-07-24 14:07:30 Test Item Value Reference Range Interpretation Comme nts POC creatinine (test code = 1.1 mg/dl 0.5-0.9 H Gasateria Attendant Name: Ellie [id number]) Bay BDevice ID: [id number] Lab Interpretation (test code = Abnormal 17568-4) Ras MethodistEstimated [id number] 14:07:30 Test Item Value Reference Range Interpretation Comments Estimated GFR (test 45 mL/min/1.73 m2 Henry roman Units code = 00203-9) Interpretati onG1 >=90 Francesca l or highG2 60-89 Mildly decrease dG3a 45-59 Mil dly to moderately decr wabsoC6a 30-44 Moderately to s everely decreasedG4 15-29 Severe ly decreasedG5 <15 Kidney [place] lureThe eGFR was calcul ated using the [facility] Kidney Disease Epidemiology Collaboration ( CKD-EPI) equation. Interpretation is based on recommendati ons of the National [facility]-Kidn ey Disease Outcome s Quality Initiat martha (NKF-KDOQI) pub lished in 2013. Lab Interpretation Abnormal (test code = 17190-8) Ras MethodistLarelisa Joint Arthrocentesis: shoulder, R subacromial bursa 2020-05-08 13:10:00Juan Antonio Fagan MD 05/08/2020 4:57 PMLarge Joint Arthrocentesis: shoulder, R subacromial bursaConsent given by: patientSite marked: site markedTimeout: Immediately prior to procedure a time outwas called to verify the correct patient, procedure, equipment, client technical support associate and site/side marked as required Supporting DocumentationIndications: pain Procedure DetailsPreparation: Patient was prepped and draped in the usual sterile fashionUltrasound guided: noLocation: shoulder - R subacromial bursa Right side:Needle size: 22 GApproach: posteriorRight shoulder medications administered: 5 mL lidocaine 10 mg/mL (1 %); 40 mg methylPREDNISolone acetate 40 mg/mLPatient tolerance: patient tolerated theprocedure well with no immediate complicationsHelen MethodistBasic metabolic [id number] 07:37:29 Test Item Value Reference Range Interpretation Comments Sodium (test code = 2951-2) 123 135- 148 mEq/L L Potassium (test code = 2823-3) 4.7 3.5- 5.0 mEq/L Chloride (test code = 2075-0) 90 98- 112 mEq/L L CO2 (test code = 2027-9) 25 24- 31 mEq/L Anion gap (test code = 32415-4) 8@ANIO 7- 15 mEq/L BUN (test code = 3094-0) 18 mg/dL 8-23 Creatinine (test code = 2160-0) 1.21 mg/dL 0.5-0.9 H Glucose (test code = 2345-7) 168 mg/dL 65-99 H Calcium (test code = 09513-0) 8.7 mg/dL 8.8-10.2 L Lab Interpretation (test code = Abnormal 25192-6) [facility] with platelet and [id number] 06:55:45 Test Item Value Reference Range Interpretation Comments WBC (test code = 46477-1) 14.1 4.5- 11.0 k/uL H RBC (test code = 21157-0) 3.09 m/uL 4.2-5.5 L HGB (test code = 718-7) 8.7 g/dL 12-16 L HCT (test code = 4544-3) 26.5 % 37-47 L MCV (test code = 787-2) 85.8 fL 82-100 MCH (test code = 785-6) 28.2 pg 27-34 MCHC (test code = 786-4) 32.8 g/dL 31-37 RDW - SD (test code = 29676-4) 45.1 fL 37-55 MPV (test code = 14888-3) 9.3 fL 6.9-11 Platelet count (test code = 326 K/uL 150-400 12478-2) Nucleated RBC (test code = 04894-5) 0.00 /100 WBC Neutrophils (test code = 00025-4) 73.2 % 39-69 H Lymphocytes (test code = 80689-8) 13.9 % 25-45 L Monocytes (test code = 82662-2) 12.2 % 0-10 H Eosinophils (test code = 06477-3) 0.0 % 0-5 Basophils (test code = 57856-8) 0.1 % 0-1 Immature granulocytes (test code = 0.6 % 0-1 65828-2) Lab Interpretation (test code = Abnormal 42921-2) [facility] [id number] 11:41:18 Test Item Value Reference Range Interpretation Comments POC glucose (test 84 mg/dL 65-99 Gasateria Attendant N vy: Kahlil code = 18463-7) Victor Manuel e ID: [id number] Ras Goyal [id number] 10:30:31 Test Item Value Reference Range Interpretation Comments Urine culture (test SEE COMMENT Bacteriu bishop screen code = 5514192) negative. Ras MethodistUrinalysis screen and microscopy, with reflex to culture 2020-04-19 10:30:30 Test Item Value Reference Range Interpretation Comments Specimen site (test code = Catheterized 8181703) Color, UA (test code = 5778-6) Yellow Appearance, UA (test code = Clear 5767-9) Specific gravity, UA (test code 1.017 1.001-1.030 = 5811-5) pH, UA (test code = 5803-2) 7.0 5.0-9.0 Protein, UA (test code = Negative Negative 04766-5) Glucose, UA (test code = Negative Negative 15120-8) Ketones, UA (test code = 2514-8) 1+ Negative A Bilirubin, UA (test code = Negative Negative 5770-3) Blood, UA (test code = 5794-3) Negative Negative Nitrite, UA (test code = 5802-4) Negative Negative Urobilinogen, UA (test code = 2.0 <2.0 E.U./dL A 94433-6) Leukocyte esterase, UA (test Negative Negative code = 5799-2) Epithelial cells, UA (test code <1 /HPF = 5787-7) Round epithelial cells, UA (test <1 0- 5 /HPF code = 24681-8) WBC, UA (test code = 5821-4) 1 0- 4 /HPF RBC, UA (test code = 85711-2) 1 0- 5 /HPF Bacteria, UA (test code = Few None seen 17060-1) Yeast, UA (test code = 41463-0) None seen Yeast with pseudohyphae, UA None seen (test code = 59436-1) Lab Interpretation (test code = Abnormal 14939-6) Ras [id number] 09:17:55Shanice Quintana MD 04/19/2020 9:18 AMAirwayDate/Time: 04/19/2020 [...] Interpretation (test Negative results do code = 1509573) not preclude 2019-nCoV infection and should not be used as the sole basis for treatment or other patient management decisions. Negative results must be combined with clinical observations, patient history, and epidemiological information. COVID-19 qualitative Not-Detected Not-Detected PCR result (test code = 89477-2) COVID-19 qualitative See link below for C ase Number: PCR (test code = PDF Lab Report [id number]) Ras MethodistType and [id number] 13:26:00 Test Item Value Reference Range Interpretation Comments ABO grouping (test code = 883-9) A Rh type (test code = 86257-0) POS Antibody screen (gel) (test code = NEG 890-4) Ras MethodistHemoglobin [id number] 13:08:30 Test Item Value Reference Range Interpretation Comments Hemoglobin A1C (test 6.1 % 4-5.6 H HbA1c c utoffs for code = 75057-4) diagnosing diabetes:4.0% - 5.6% = normal5.7% - 6.4% = increased risk for diabetes (prediabetes)9> =6.5% = lnfrwpmj4Sagb s for glycemic contro l (ADA 2016)< 7.0% Ta rget for non adults with alisson betes. More or less stringent targe ts may be appropriate for individual jaycob ents. <7.5% Target for Children and adolescents wit h type 1 diabetes. Lab Interpretation (test Abnormal code = 51479-0) Helen [facility] [id number] 13:25:00 Test Item Value Reference Interpretation Comments [...] Non-Afr. 49 > OR = 60 L [place] (test code mL/min/1.73m2 = 2775) EGFR 57 > OR = 60 L [place] (test code mL/min/1.73m2 = 41890-2) BUN/creatinine 16 6- 22 (calc) ratio (test code = 3097-3) Sodium (test code = 136 mmol/L 897-851 7179-2) Potassium (test 4.8 mmol/L 3.5-5.3 code = 2823-3) Chloride (test code 99 mmol/L 98-110 = 2075-0) CO2 (test code = 29 mmol/L 20-32 2027-9) Calcium (test code 9.7 mg/dL 8.6-10.4 = 00004-6) Protein (test code 6.1 g/dL 6.1-8.1 = 2885-2) Albumin, S (test 3.6 g/dL 3.6-5.1 code = 1751-7) Globulin, total 2.5 1.9- 3.7 g/dL (test code = (calc) 60729-3) Albumin/globulin 1.4 1.0- 2.5 ratio (test code = (calc) 1759-0) Total bilirubin 0.4 mg/dL 0.2-1.2 (test code = 1975-2) Alkaline 34 U/L 37-153 L phosphatase (test code = 6768-6) AST (test code = 16 U/L 10-35 1920-8) ALT (test code = 13 U/L 6 1742-6) RAC (test code = Performing RAC) Organization Information: Site ID: [facility] Name: [facility] Address: [address] [place] [phone] Director: Gaston [facility] Interpretation Abnormal (test code = 73250-5) Helen MethodistProthrombin time with [id number] 13:25:00 Test Item Value Reference Range Interpretation Comments INR (test code = 1.0 Reference R cheyanne 6301-6) 0.9-1.1Moderate -i ntensity Warfar in Therapy 2.0-3.0Higher-i nt ensity Warfarin Therapy 3.0-4 .0 Prothrombin time 10.6 9.0- 11.5 sec For more (test code = information on 5902-2) this test, go to:http://educa ti on.[employer]/faq/FAQ1 04 RAC (test code = Performing RAC) Organization Information: Site ID: [facility] Name: [facility] Address: [address] [place] [phone] Director: Gaston Ball Helen MethodistPartial thromboplastin time, [id number] 13:25:00 Test Item Value Reference Interpretation Comments Range PTT (test 23 22- 34 sec This [place] = [place] [address]-4) monitoringunfra ctionated heparin therapy . For testing thatis validate d for this type of therapy , please referto the Hep jennifer Anti-Xa assay (test [place] e [address]). For additional info rmation, please refer tohttp://educat ion.[employer] - [employer]con[employer]/faq/ YFM342(This link is being p rovided for informational/e ducational purposes only.) RAC (test Performing code = Organization RAC) Information: Site ID: [facility] Name: [facility] Address: [address] [place] [phone] Director: Gaston Ball Helen MethodistURINALYSIS, COMPLETE, WITH REFLEX TO [id number] 13:25:00 Test Item Value Reference Range Interpretation Comments Color, UA (test code = YELLOW YELLOW 5778-6) Appearance (test code = CLOUDY CLEAR A 5767-9) Specific gravity, urine 1.016 1.001-1.035 (test code = 5811-5) pH, urine (test code = < OR = 5.0 5.0-8.0 5803-2) Glucose, urine (test NEGATIVE NEGATIVE code = 67736-9) Bilirubin, UA (test NEGATIVE NEGATIVE code = 5770-3) Ketones, UA (test code NEGATIVE NEGATIVE = 2514-8) Occult blood, urine NEGATIVE NEGATIVE (test code = 5794-3) Protein, UA (test code NEGATIVE NEGATIVE = 46906-6) Nitrite, UA (test code POSITIVE NEGATIVE A = 5802-4) Leukocyte esterase, UA 2+ NEGATIVE A (test code = 5799-2) WBC, UA (test code = 40-60 < OR = 5 /HPF A 5821-4) RBC, UA (test code = NONE SEEN < OR = 2 /HPF 96000-2) Squamous epithelial 0-5 < OR = 5 /HPF cells, UA (test code = 33518-2) Bacteria, UA (test code MANY NONE SEEN /HPF A = 5769-5) Calcium oxalate FEW NONE OR FEW /HPF crystals, UA (test code = 92961-6) Hyaline casts, UA (test NONE SEEN NONE SEEN /LPF code = 5796-8) Reflex (test code = CULTURE INDICATED - 630-4) RESULTS TO FOLLOW RAC (test code = RAC) Performing Organization Information: Site ID: [facility] Name: [facility] Address: [address] [place] [phone] Director: Gaston Ball [facility] Interpretation Abnormal (test code = 29243-0) [facility] Pre/Post [id number] 19:11:35 Test Item Value Reference Range Interpretation Comments Ventricular rate (test 74 code = 253) Atrial rate (test code 74 = 255) [place] interval (test code 140 = 266) QRSD [...] wave abnormality now evident in Lateral leads- Helen SabianismXR Chest 2 [id number] 14:04:38Hm Interface, Radiology Results Incoming - 02/24/2020 [...] are unchanged and unremarkable.The bones are unremarkable. [facility]-[id number] Sabianism
--- OUTSIDE RECORDS SUMMARY | 2020-11-07 17:10 | XMS REPORT | Clinical Summary ---
:1935 Author Organization [facility] Address [address] [place] [address] Care Team Providers Name Role Phone Murtaza Abernathy MD Primary Care Provider Allergies Active Allergy Reactions Severity Noted Date Comments Codeine Other (See Comments) 03/07/2017 CRISTOBAL DEL TORO PER PT Medications Medication Sig Dispensed Refills Start End Status Date Date RESTASIS 0.05 % Administer 1 6 06/24/20 A ctive ophthalmic emulsion drop to both 16 eyes daily. rosuvastatin (CRESTOR) Take 5 mg by 0 Active 5 MG tablet mouth nightly. golimumab (SIMPONI Infuse into a 0 Active ARIA IV) venous catheter. Every 8 weeks predniSONE (DELTASONE) Take 5 mg by 0 Active 5 mg tablet mouth daily. olmesartan (BENICAR) Take 40 mg by 0 Active 40 MG tablet mouth daily. levothyroxine Take 75 mcg by 0 A ctive (SYNTHROID, LEVOXYL) mouth daily. 75 mcg tablet metFORMIN (GLUCOPHAGE) Take 500 mg by 0 Active 500 mg tablet mouth 2 (two) times a day with meals. omeprazole (PriLOSEC) Take 20 mg by 0 Active 20 MG capsule mouth daily. glipiZIDE (GLUCOTROL) Take 2.5 mg by 0 Active 2.5 MG 24 hr tablet mouth daily. carvediloL (COREG) Take 12.5 mg 0 Active 12.5 MG tablet by mouth 2 (two) times a day with meals. DULoxetine (CYMBALTA) Take 30 mg by 0 Active 30 MG capsule mouth daily. traMADoL (ULTRAM) 50 Take 50 mg by 0 Active mg tabletIndications: mouth every 6 acute pain (six) hours as needed for moderate pain .acute pain. hydrOXYchloroQUINE Take by mouth 0 Active (PLAQUENIL) 200 mg daily. tablet multivitamin with Take 1 tablet 0 Discontinued minerals tablet by mouth 020 daily. carvedilol (COREG) TK 1 T PO BID 3 05/12/20 Discontinued 6.25 MG tablet 17 020 DULoxetine (CYMBALTA) nightly. 0 03/27/20 Discontinued 60 MG capsule 17 020 metFORMIN (GLUCOPHAGE) Take 1,000 mg 0 05/20 Discontinued 1,000 mg tablet by mouth 2 020 (two) times a day with meals. amLODIPine (NORVASC) 5 Take 5 mg by 0 03/20 9/ Discontinued mg tablet mouth nightly. 020 naproxen sodium Take 220 mg by 0 Discontinued (ALEVE) 220 MG tablet mouth every 12 020 (twelve) hours as needed for mild pain. linaGLIPtin Take 5 mg by 0 Disco ntinued (TRADJENTA) 5 mg mouth daily 020 tablet with breakfast. naproxen (NAPROSYN) Take 1 tablet 60 tablet 0 11/21/19 Discontinued 500 MG tablet (500 mg total) 20 020 by mouth 2 (two) times a day. nitrofurantoin, Take 1 capsule 14 capsule 0 04/05/20 macrocrystal-monohydra (100 mg total) 20 02 0 te, (Macrobid) 100 MG by mouth 2 capsule (two) times a day for 7 days. traMADoL (ULTRAM) 50 chronic pain. 40 tablet 0 04/10/2004/19 Discontinued mg tabletIndications: Take 1 tablet 20 020 (Reorder) chronic pain by mouth every 6-8 hours as needed for pain. sulfamethoxazole-trime Take 1 tablet 20 tablet 0 04/17/2012/18 Discontinued thoprim (Bactrim DS) by mouth 2 20 020 (Stop Taking at 800-160 mg per tablet (two) times a Discharge) day for 10 days. traMADoL (ULTRAM) 50 acute pain, 60 tablet 0 04/19/ mg tabletIndications: chronic pain. 20 020 acute pain, chronic Take 1 tablet pain by mouth every 4-6 hours as needed for pain. amoxicillin-pot Take 1 tablet 24 tablet 0 04/19/20 clavulanate (500 mg total) 20 020 (Augmentin) 500-125 mg by mouth 2 per tablet (two) times a day for 12 days. methocarbamoL Take 1 tablet 90 tablet 0 04/23/20 Di scontinued (Robaxin-750) 750 MG (750 mg total) 20 020 tablet by mouth 3 (three) times a day. diclofenac (VOLTAREN) Apply 1 Tube 2 05/08/20 Discontinued 1 % gelIndications: topically 4 20 020 Arthritis of right (four) times a glenohumeral joint, day. Apply 2 Nontraumatic gms to incomplete tear of affected area right rotator cuff 4 times a day pregabalin (Lyrica) 50 Take 1 capsule 60 capsule 0 05/30/20 0 MG capsule (50 mg total) 20 020 by mouth 2 (two) times a day for 30 days. traMADoL (Ultram) 50 Take 1 tablet 40 tablet 1 06/06/2007/26 Discontinued mg tabletIndications: (50 mg total) 20 020 chronic pain by mouth every 6 (six) hours as needed for moderate pain .chronic pain. traMADoL (ULTRAM) 50 TAKE 1 TABLET 40 tablet 1 07/26/2008/15 mg tablet BY MOUTH EVERY 20 020 6 HOURS NEEDED FOR PAIN Active Problems Problem Noted Date Hyperlipidemia 04/19/2020 DM (diabetes mellitus) 04/19/2020 UTI (urinary tract infection) 04/19/2020 Spondylolisthesis at L4-L5 level 11/30/2019 Overview: Added automatically from request for andrés toni [id number] Spondylolisthesis at L5-S1 level 11/30/2019 Overview: Added automatically from request for andrés toni [id number] Trochanteric bursitis of right hip 11/30/2019 Overview: Added automatically from request for andrés toni [id number] Diverticulitis 03/07/2017 Abscess of sigmoid colon 02/22/2017 [...] Encounters Date Type Specialty Care Team Description 10/23/2020 Office Visit Orthopedic Sonny Guaman Other spondylo sis with radiculopathy, lumbar region (Primary Dx); Surgery MD Maria Esther Spondylolisthes is at L5-S1 level; Spondylolisthes is at L4-L5 level; Status post lum bar surgery; Other chronic p ain 10/23/2020 Travel 09/28/2020 Office Visit Orthopedic Juan Antonio Khalil Arthritis of r ight glenohumeral joint (Primary Dx); Surgery MD Mike Nontraumatic in complete tear of right rotator cuff 09/28/2020 Travel 09/18/2020 Travel 09/12/2020 Anesthesia Event General Surgery Georges Heard MD [place], [place], [place] 09/12/2020 Surgery General Surgery Maurilio, LUMBAR TRANS FORAMINAL Sanford Pike MD L5-S1 LEVELS 09/12/2020 Hospital Encounter General Surgery Sanford Thorpe MD 08/17/2020 Office Visit Orthopedic Sonny Guaman Spondylolisthe sis at L5-S1 level (Primary Dx); Surgery MD Maria Esther Other spondylos is with radiculopathy, lumbar region 08/17/2020 Travel 07/26/2020 Refill Orthopedic Guille Renee Surgery MD 07/25/2020 Travel 07/24/2020 Hospital Encounter Radiology Sonny Guaman Spondylo listhesis at L5-S1 level; MD Maria Esther Other spondylos is with radiculopathy, lumbar region; Status post lum bar surgery 07/23/2020 Travel 07/02/2020 Office Visit Sonny Koch Other spondylo sis with radiculopathy, lumbar region (Primary Dx); Surgery MD Maria Esther Spondylolisthes is at L5-S1 level; Status post lum bar surgery 07/02/2020 Travel 06/06/2020 Telephone Orthopedic Stephanie Austin, Surgery FRANK 06/05/2020 Office Visit Orthopedic Guille Renee, Acute [...] Travel 04/23/2020 Orders Only Orthopedic Horacio Vernon PA 04/19/2020 Anesthesia Event General Surgery Shanice Quintana MD [place], [place], [place] 04/19/2020 Surgery General Surgery Sonny Guaman LUMBAR POST ERPHIL Mayo MD DECOMPRESSION LAMINOTOMY L4-5 WITH FORAMINOTOMY L5 -S1 BILATERAL, AND INDICATED PROCE DURES. 04/19/2020 Hospital Encounter General Internal Sonny Guaman Othe r spondylosis with radiculopathy, lumbar region; - Medicine MD Maria Esther Spondylolisthesis at L4-L5 level; 04/20/2020 Pancho Fitzgerald Spondylolist hesis at L5-S1 level; MD Vasyl Trochanteric bu rsitis of right hip 04/17/2020 Orders Only Orthopedic Horacio Vernon Leukocytosis , Surgery GARRY Purdy unspecified typ e (Primary Dx) 04/16/2020 Pre-Admit Testing Pre-Admission Sonny Guaman Preop te sting (Primary Appointment Testing BMD Angi Dx) 04/16/2020 Travel 04/10/2020 Orders Only Orthopedic Deuce Jarvis Surgery GARRY Polk 04/05/2020 Pre-Admit Testing Pre-Admission Sonny Guaman Preop te sting (Primary Appointment Testing MD Maria Esther Dx) 04/05/2020 Orders Only Orthopedic Deuce Jarvis Surgery GARRY Polk 04/04/2020 Travel 04/03/2020 Orders Only Orthopedic Horacio Vernon PA 03/18/2020 Refill Orthopedic Horacio Vernon PA 02/24/2020 Hospital Encounter Radiology Sonny Guaman Pre-op t fabiola Mayo MD 02/24/2020 Pre-Admit Testing Pre-Admission Sonny Guaman Pre-op t esting (Primary Appointment Testing MD Maria Esther Dx) 02/24/2020 Office Visit Orthopedic Sonny Guaman Other spondylo sis with radiculopathy, lumbar region (Primary Dx); Surgery MD Maria Esther Spondylolisthes is at L4-L5 level; Spondylolisthes is at L5-S1 level 02/24/2020 Telephone Orthopedic Horacio Vernon PA 02/24/2020 Travel 02/21/2020 Travel 02/16/2020 Travel 02/09/2020 Travel 01/06/2020 Travel 01/03/2020 Transcribe Orders Orthopedic Sonny Guaman Other spo [...] level; Trochanteric bu rsitis of right hip after 11/07/2019 Surgical History Surgery Date Site/Laterality Comments HYSTERECTOMY [...] PROCED URES; Surgeon: Sanford Thorpe MD; Location: [facility] Main OR; Service: Pa in Management; Lat erality: Bilateral; INJECTION, HIP 04/14/2019 Hip/Right Procedure: INTRA-ARTICULAR INJECTION TARGET ING THE RIGHT HIP OR OT HER INDICATED PROCED URES; Surgeon: Sanford Thorpe MD; Location: [facility] Main OR; Service: Pa in Management; Lat erality: Right; INJECTION, KNEE 07/28/2019 Knee/Right Procedure: RIGHT GENICULAR NERVE BLOCK KNEEE OR OTHER I NDICATED PROCEDURES; Andrés geon: Jinny Thorpe MD; Loc ation: [facility] Main OR; S ervice: Pain Management; Laterality: Righ t; INJECTION, KNEE 09/22/2019 Knee/Right Procedure: RIGHT GENICULAR NERVE BLOCK; Surgeon: Sanford Thorpe MD; Location: [facility] Main OR; Service: Pa in Management; Lat erality: Right; RADIOFREQUENCY THERMAL 11/02/2019 Knee/Right Procedure : RIGHT COAGULATION OR GENICULAR NERVE RFTC; CRYOTHERAPY, FACET Surgeon: Lou nguyen, JOINT, LUMBAR Sanford Pike MD; Location: [facility] Main OR; Service: Pa in Management; Lat erality: Right; JOINT REPLACEMENT 09/18/2016 - Right TKA 10/18/2016 COLONOSCOPY LAMINOTOMY, LUMBAR 04/19/2020 Spine Lumbar/Bilateral Proced ure: LUMBAR POSTERIOR DECOMP RESSION LAMINOTOMY L4-5 WITH FORAMINOTOMY L5- S1 BILATERAL, AND I NDICATED PROCEDURES.; Lange rgeon: Sonny Guaman MD; Location: [facility] ain OR; Service: Orthope dics; Laterality: Bila teral; INJECTION, STEROID, 09/12/2020 Spine Lumbar/Right Procedure : LUMBAR SPINE, LUMBAR, EPIDURAL, TRANSFO RAMINAL ZOIE SINGLE TARGETING RIGHT L5-S1 LEVELS; Surgeon : Jinny Thorpe MD; Loc ation: [facility] Main OR; S ervice: Pain Management; Laterality: Righ t; Medical History Medical History Date Comments H/O [...] 2 diabetes mellitus (HCC) Hearing aid worn Dental crown present Family History Medical History Relation Name Comments [...] file Not on file Not on file COVID-19 Exposure Response Date Recorded In the last month, have you been in contact with No / Unsure 10/23/2020 10:17 AM BASE DRAW OPERATOR someone who was confirmed or suspected to [...] Sign Reading Time Taken Comments Blood Pressure 135/63 09/12/2020 11:30 AM BASE DRAW OPERATOR Pulse 66 09/12/2020 11:30 AM BASE DRAW OPERATOR Temperature 36.7 C (98 F) 09/12/2020 10:45 AM BASE DRAW OPERATOR Respiratory Rate 16 09/12/2020 11:30 AM BASE DRAW OPERATOR Oxygen Saturation 98% 09/12/2020 11:30 AM BASE DRAW OPERATOR Inhaled Oxygen Concentration - - Weight 66.2 kg (146 lb) 06/05/2020 1:10 PM CDT Height 154.9 cm (5' 1") 06/05/2020 1:10 PM CDT Body Mass Index 27.59 06/05/2020 1:10 PM CDT Plan of Treatment Health Maintenance Due Date Last Done Comments DIABETES: RETINAL EYE EXAM 1945 DIABETIC FOOT EXAM 1945 URINE MICROALBUMIN 1943 COVID-19 VACCINE (1 of 2) 1949 SHINGLES VACCINES (#1) 1983 65+ PNEUMOCOCCAL VACCINE (1 of 1 - PPSV23) 1998 INFLUENZA VACCINE 05/19/2020 Implants Implanted Type Area [employer]emaster Device Shelf Model / Identifier Expiration Date Ser ial / Lot Screw-06/19/2015 Screw Left: Foot Implanted: 06/19/2015 (Quantity not on file) Plate Description:Right ankle plate as per pt Procedures Procedure Name Priority Date/Time Associated Diagnosis Comme nts AL ARTHROCENTESIS Routine 09/28/2020 2:10 Arthritis of right Results for ASPIR&/INJ MAJOR PM BASE DRAW OPERATOR glenohumeral latanya int this procedure JT/BURSA W/O US Nontraumatic incomplete a re in the tear of right rotator result s cuff section. OR FL < 1 HOUR Routine 09/12/2020 10:47 Results f or AM BASE DRAW OPERATOR this procedure are in the results section. MRI LUMBAR SPINE W WO Routine 07/24/2020 [...] this procedure are in the results section. AL ARTHROCENTESIS Routine 05/08/2020 1:10 Arthritis of right Results for ASPIR&/INJ MAJOR PM CDT glenohumeral latanya int this procedure JT/BURSA W/O US Nontraumatic [...] this procedure are in the results section. AL AN ELECTIVE Routine 04/19/2020 9:17 Results f [...] procedure are in the results section. after 11/07/2019 Results Large Joint Arthrocentesis: shoulder, R subacromial bursa (09/28/2020 2:10 PM BASE DRAW OPERATOR) Narrative Performed At Juan Antonio Khalil MD 09/28/2020 5:39 PM Large Joint Arthrocentesis: shoulder, R subacromial bursa Consent given by: patient Site marked: site marked Timeout: Immediately prior to procedure a time out was called to verify the correct patient, procedure, equipmen t, help desk support specialist and site/side marked as required [...] procedure wel l with no immediate complications OR FL < 1 Hour (09/12/2020 10:47 AM BASE DRAW OPERATOR)Only the most recent of2 results within the time period is included. Specimen Narrative Performed At EXAMINATION: OR FL < 1 HOUR [facility] CLINICAL HISTORY: 85 years Female, hilda n IMPRESSION: Fluoroscopy was provided. No radiologist present. Pl ease see procedure report for discussion of procedure, find ings. [id number] Procedure Note Hm Interface, Radiology Results Incoming - 09/12/2020 10:53 AM BASE DRAW OPERATOR EXAMINATION: OR FL < 1 HOUR CLINICAL HISTORY: 85 years Female, pain IMPRESSION: Fluoroscopy was provided. No radiologist present. Please see procedure report for discussion of procedure, findings. [id number] Performing Organization Address City/State/ZIP Code Phon e Number [facility] [address] [place] [address] MRI Lumbar Spine W Wo Contrast (07/24/2020 [...] on the exiting bilateral L5 nerve roots. [id number] Procedure Note Hm Interface, Radiology Results - 07/24/2020 3:53 PM CDT EXAMINATION: MRI [...] on the exiting bilateral L5 nerve roots. [id number] Performing Organization Address City/State/ZIP Code Phon e Number [facility] [address] [place] [address] Estimated GFR (07/24/2020 2:03 PM CDT)Only the most recent of3 resultswithin the time period is included. Estimated GFR 45 (A) mL/min/1.73 KADIE YAZIDI Comment: m2 [facility] Catergory Units Interpretation [facility] G1 >=90 Normal or high CENTER [...] DEPARTMENT OF PATHOLOGY AND [address] [place] [address] POC creatinine (07/24/2020 2:03 PM CDT) POC creatinine 1.1 (H) 0.5 - 0.9 KADIE YAZIDI Comment: mg/dl [facility] Safety Engineer Pressure Vessels Name: [place] Otto [facility] Device ID: [id number] CENTER Specimen Blood Performing Organization Address City/State/ZIP Code Phon e Number DEPARTMENT OF PATHOLOGY AND [address] [place] [address] [place] [address] XR Knee 4+ Vw Bilateral (06/05/2020 1:19 [...] Organization Address City/State/ZIP Code Phon e Number [facility] [address] [place] [address] Large Joint Arthrocentesis: shoulder, R subacromial bursa (05/08/2020 1:10 PM CDT) Narrative Performed At Juan Antonio Khalil MD 05/08/2020 4:57 PM Large Joint Arthrocentesis: shoulder, R subacromial bursa Consent given by: patient Site marked: site marked Timeout: Immediately prior to procedure a time out was called to verify the correct patient, procedure, equipmen t, help desk support specialist and site/side marked as required [...] WBC 14.1 (H) 4.5 - 11.0 k/uL [facility] RBC 3.09 (L) 4.20 - 5.50 [facility] m/uL [facility] HGB 8.7 (L) 12.0 - 16.0 [facility] g/dL [facility] HCT 26.5 (L) 37.0 - 47.0 % [facility] MCV 85.8 82.0 - 100.0 fL [facility] MCH 28.2 27.0 - 34.0 pg [facility] MCHC 32.8 31.0 - 37.0 [facility] g/dL [facility] RDW - SD 45.1 37.0 - 55.0 fL [facility] MPV 9.3 6.9 - 11.0 fL [facility] Platelet count 326 150 - 400 K/uL [facility] Nucleated RBC 0.00 /100 WBC [facility] Neutrophils 73.2 (H) 39.0 - 69.0 % [facility] Lymphocytes 13.9 (L) 25.0 - 45.0 % [facility] Monocytes 12.2 (H) 0.0 - 10.0 % [facility] Eosinophils 0.0 0.0 - 5.0 % [facility] Basophils 0.1 0.0 - 1.0 % [facility] Immature granulocytes 0.6 0.0 - 1.0 % [facility] Specimen Blood Performing Organization Address City/[facility] Phon e Number [facility] DEPARTMENT OF PATHOLOGY [id number] [place] [address] Basic metabolic panel (04/20/2020 6:30 AM CDT) [facility] Sig nature Sodium 123 (L) 135 - 148 mEq/L [facility] Potassium 4.7 3.5 - 5.0 mEq/L [facility] Chloride 90 (L) 98 - 112 mEq/L [facility] CO2 25 24 - 31 mEq/L [facility] Anion gap 8@ANIO 7 - 15 mEq/L [facility] BUN 18 8 - 23 mg/dL [facility] Creatinine 1.21 (H) 0.50 - 0.90 mg/dL [facility] Glucose 168 (H) 65 - 99 mg/dL [facility] Calcium 8.7 (L) 8.8 - 10.2 mg/dL [facility] Specimen Blood Performing Organization Address City/[facility] Phon e Number [facility] DEPARTMENT OF PATHOLOGY [address] [place] [address] POC glucose (04/19/2020 11:40 AM CDT)Only the most recent of4 resultswithin the time period is included. Pathologist Sig nature POC glucose 84 65 - 99 mg/dL [facility] Comment: [facility] Safety Engineer Pressure Vessels Name: Kahlil Calderón Device ID: [id number] Specimen Blood Performing Organization Address [facility] Phon e Number [facility] DEPARTMENT OF PATHOLOGY [id number] [place] [address] AND GENOMIC MEDICINE [address] Urinalysis screen and microscopy, with reflex to culture (04/19/2020 9:23 AM CDT)Only the most recent of3 resultswithin the time period is included. Specimen site Catheterized [facility] Color, UA Yellow [facility] Appearance, UA Clear [facility] Specific gravity, UA 1.017 1.001 - 1.030 [facility] pH, UA 7.0 5.0 - 9.0 [facility] Protein, UA Negative Negative [facility] Glucose, UA Negative Negative [facility] Ketones, UA 1+ (A) Negative [facility] Bilirubin, UA Negative Negative [facility] Blood, UA Negative Negative [facility] Nitrite, UA Negative Negative [facility] Urobilinogen, UA 2.0 (A) <2.0 E.U./dL [facility] Leukocyte esterase, Negative Negative [facility] Epithelial cells, UA <1 /HPF [facility] Round epithelial <1 0 - 5 /HPF [facility] cells, [facility] WBC, UA 1 0 - 4 /HPF [facility] RBC, UA 1 0 - 5 /HPF [facility] Bacteria, UA Few None seen [facility] Yeast, UA None seen [facility] Yeast with None seen [facility] pseudohyphae, UA [facility] Specimen Urine - Urinary bladder Performing Organization Address [facility] Phon e Number [facility] DEPARTMENT OF PATHOLOGY [address] [facility] [address] AND GENOMIC MEDICINE [address] Urine culture (04/19/2020 9:23 AM CDT)Only the most recent of4 resultswithin the time period is included. Pathologist Sig nature Urine culture SEE COMMENTComment: [facility] Bacteriuria screen [facility] negative. Specimen Performing Organization Address City/[facility] Phon e Number [facility] DEPARTMENT OF PATHOLOGY [id number] [place] [address] [address] [place] [address] HOSPITAL Airway (04/19/2020 9:17 AM CDT) Narrative Performed [...] included. Pathologist Sig nature ABO grouping A [facility] Rh type POS [facility] Antibody screen (gel) NEG [facility] Specimen Urine Performing Organization Address City/[facility]/ZIP Code Phon e Number [facility] DEPARTMENT OF PATHOLOGY [address] [place] [address] [address] [facility] Hemoglobin A1c (04/16/2020 12:05 PM CDT)Only the most recent of2 resultswithin the time period is included. Hemoglobin A1C 6.1 (H) 4.0 - 5.6 % [facility] Comment: [place] HbA1c cutoffs for diagnosing diabetes: [facility] [...] 1 diabetes. Specimen Urine Performing Organization Address City/[facility] Phon e Number [facility] DEPARTMENT OF PATHOLOGY [address] [facility] [place] [address] AND [facility] [address] [facility] [address] HOSPITAL COVID-19 qualitative PCR (04/16/2020 11:30 AM CDT)Only the most recent of3 resultswithin the time period is included. Pathologist [facility] Interpretation Negative results do not prec lude 2019-nCoV infection and should not be used as the sole basis for treatment or other patient management decisions. Negative results must be combined with clinical observations, patient history, and epidemiological [place] information. [facility] COVID-19 qualitative Not-Detected Not-Detecte [place] PCR result d [facility] qualitative See link below for [place] PCR PDF Lab YAZIDI ReportComment: [facility] Number: [id number] Specimen Nasopharyngeal Performing Organization Address [facility] Phon e Number [facility] DEPARTMENT OF PATHOLOGY AND [address] [place], [place] [address] [facility] [address] [place] [address] [facility] URINALYSIS, COMPLETE, WITH REFLEX TO CULTURE (04/03/2020 2:17 PM CDT) Color, UA YELLOW YELLOW [facility] [place] Appearance CLOUDY (A) CLEAR [facility] [place] Specific gravity, 1.016 1.001 - 1.035 [facility] urine [place] pH, urine < OR = 5.0 5.0 - 8.0 [facility] [place] Glucose, urine NEGATIVE NEGATIVE [facility] [place] Bilirubin, UA NEGATIVE NEGATIVE [facility] [place] Ketones, UA NEGATIVE NEGATIVE [facility] [place] Occult blood, NEGATIVE NEGATIVE [facility] urine [place] Protein, UA NEGATIVE NEGATIVE [facility] [place] Nitrite, UA POSITIVE (A) NEGATIVE [facility] [place] Leukocyte 2+ (A) NEGATIVE [facility] esterase, UA [place] WBC, UA 40-60 (A) < OR = 5 /HPF [facility] [place] RBC, UA NONE SEEN < OR = 2 /HPF [facility] [place] Squamous 0-5 < OR = 5 /HPF [facility] epithelial cells, [place] UA Bacteria, UA MANY (A) NONE SEEN /HPF [facility] [place] Calcium oxalate FEW NONE OR FEW [facility] crystals, UA /HPF [place] Hyaline casts, UA NONE SEEN NONE SEEN /LPF [facility] [place] Reflex CULTURE [facility] [place] RESULTS TO FOLLOW Specimen Resulting Agency Comment Performing Organization Information: Site ID: [id number] Name: [facility] Address: [address] [place] [id number] Director: Gaston Ball Performing Organization Address City/[facility] [facility] [place] [address] Partial thromboplastin time, activated (04/03/2020 2:17 PM CDT)Only the most recent of2 resultswithin the time period is included. PTT 23 22 - 34 sec [facility] Comment: [place] This test has not been validated for monitoring unfractionated heparin therapy. For testing that is validated for this type of therapy, please refer to the Heparin Anti-Xa assay (test code 21925). For additional information, please refer to http://education.[employer]/faq/PSI765 (This link is being provided for informational/educational purposes only.) Specimen Resulting Agency Comment Performing Organization Information: Site ID: [id number] Name: [facility] Address: [address] [place] [id number] Director: Gaston Ball Performing Organization Address [facility] [place] [address] Prothrombin time with INR (04/03/2020 2:17 PM CDT)Only the most recent of2 resultswithin the time period is included. INR 1.0 [facility] Comment: [place] Reference Range 0.9-1.1 Moderate-intensity Warfarin Therapy 2.0-3.0 Higher-intensity Warfarin Therapy 3.0-4.0 Prothrombin time 10.6 9.0 - 11.5 [facility] Comment: asa ENGLE For more information on this test, go to: http://education.[employer]/faq/RGJ864 Specimen Resulting Agency Comment Performing Organization Information: Site ID: [id number] Name: [facility] Address: [address] [place] [id number] Director: Gaston Ball Performing Organization Address City/State/ZIP Code Phon e Number [facility] [place] [address] [place] [address] [phone] Comprehensive metabolic panel (04/03/2020 2:17 PM CDT)Only the most recent of2 resultswithin the time period is included. Glucose 112 (H) 65 - 99 [facility] Comment: mg/dL [place] Fasting reference interval For someone without known diabetes, a glucose value between 100 and 125 mg/dL is consistent with prediabetes and should be confirmed with a follow-up test. BUN 16 7 - 25 mg/dL [facility] [place] Creatinine 1.03 (H) 0.60 - 0.88 [facility] Comment: mg/dL [place] For patients >49 years of age, the reference limit for Creatinine is approximately 13% higher for people identified as -[place]. EGFR Non-Afr. 49 (L) > OR = 60 [facility] [place] mL/min/1.73m [place] 2 EGFR 57 (L) > OR = 60 [facility] [place] mL/min/1.73m [place] 2 BUN/creatinine 16 6 - 22 [facility] ratio (calc) [place] Sodium 136 135 - 146 [facility] mmol/L [place] Potassium 4.8 3.5 - 5.3 [facility] mmol/L [place] Chloride 99 98 - 110 [facility] mmol/L [place] CO2 29 20 - 32 [facility] mmol/L [place] Calcium 9.7 8.6 - 10.4 [facility] mg/dL [place] Protein 6.1 6.1 - 8.1 [facility] g/dL [place] Albumin, S 3.6 3.6 - 5.1 [facility] g/dL [place] Globulin, total 2.5 1.9 - 3.7 [facility] g/dL (calc) [place] Albumin/globulin 1.4 1.0 - 2.5 [facility] ratio (calc) [place] Total bilirubin 0.4 0.2 - 1.2 [facility] mg/dL [place] Alkaline 34 (L) 37 - 153 U/L [facility] phosphatase [place] AST 16 10 - 35 U/L [facility] [place] ALT 13 6 - 29 U/L [facility] [place] Specimen Resulting Agency Comment Performing Organization Information: Site ID: [id number] Name: [facility] Address: [address] [place] [address] Director: Gaston Ball Performing Organization Address City/State/ZIP Code Phon e Number [facility] [place] [address] [place] [address] [phone] XR Chest 2 Vw (02/24/2020 2:03 PM CDT) Specimen Narrative Performed At EXAMINATION: XR CHEST 2 VW [facility] CLINICAL HISTORY: Z01.818 Encounter for other [...] changed and unremarkable. The bones are unremarkable. [facility]-[id number] Procedure Note Hm Interface, Radiology Results Incoming [...] unchanged and unremarkable. The bones are unremarkable. [facility]-[id number] Performing Organization Address City/State/ZIP Code Phon e Number [facility] [address] [place] [address] ECG Pre/Post Op (02/24/2020 1:04 PM CDT) Pathologist Sig nature Ventricular rate 74 [facility] Atrial rate 74 [facility] AL interval 140 [facility] QRSD interval 80 [facility] QT interval 360 [facility] QTC interval 399 [facility] P axis 1 -2 [facility] MUSE QRS axis 1 -34 [facility] M[facility] T wave axis -3 [facility] MUSE EKG impression Normal sinus rhythm-Left axi s deviation-Anterolateral infarct , age undetermined-Abnormal ECG-In automated comparison with ECG of 17-FEB-2019 12:05,-Anterior infarct is now present-Anterolateral infarct H MUSE is now present-Nonspecific T wave abnormality now evident in Lateral leads-Margarita ctronically Signed By Bill DELANEY, Lonnie Andrews ([id number]) on 02/24/2020 7:11:31 PM Specimen Narrative Performed At This result has an attachment that is no t available. 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
[2020-11-07 20:04] LABS: Absolute Lymphocytes (CBC) 1.7 K/uL (0.7-4.9); Basophils % 0.4 % (0-1.3); Hematocrit 30.4 % (36.0-45.0); Lymphocytes % 23.4 % (15.3-44.8); MPV 8.1 fL (7.6-11.3); RBC Red Blood Cell Count 3.79 M/uL (3.86-4.86)
[2020-11-07 20:09] LABS: Protime INR 0.88
[2020-11-07 20:14] LABS: ALT/SGPT 15 U/L (12-78); AST/SGOT 15 U/L (15-37); Alkaline Phosphatase 39 U/L (45-117); BUN Blood Urea Nitrogen 17 mg/dL (7-18); Bicarbonate 25 mmol/L (21-32); Bilirubin Direct < 0.1 mg/dL (0-0.2); Bilirubin Total 0.3 mg/dL (0.2-1.0); Glucose Level 112 mg/dL (74-106); Lipase 227 U/L (73-393); Protein, Total 6.3 g/dL (6.4-8.2); Sodium Level 130 mmol/L (136-145)
[2020-11-07] MEDS ORDERED: NA CHLORIDE 0.9% 250 ML ONE (20:36)
--- NOTE | 2020-11-07 21:27 | RAD REPORT ---
EXAM DESCRIPTION: CTAbdomen Pelvis W Contrast - 11/07/2020 9:12 pm CLINICAL HISTORY: Abdominal pain. lower abdomen pain COMPARISON: Abdomen Pelvis W Contrast dated 10/27/2018; Abdomen Pelvis W Contrast dated 03/07/2017; Abdomen Pelvis W Contrast dated 02/28/2017 TECHNIQUE: Biphasic CT imaging of the abdomen and pelvis was performed with 100 ml non-ionic IV cont rast. All CT scans are performed using dose optimization technique as appropriate and may include automated exposure control or mA/KV adjustment according to patient size. FINDINGS: Small air cyst is seen in the left lower lobe.No lung base infiltrate. Mild fatty liver is present. Small enhancing lesion in the posterior right lobe of the liver likely a small benign hemangioma. No aggressive liver lesion or biliary dilatation seen. The spleen, adrenal glands and kidneys are within normal limits. 26 x 17 mm hypodense mass has developed in the pancreatic head since 10/27/2018 study. No pancreatic ductal dilatation is seen. No bowel obstruction, free air, free fluid or abscess. Moderate fat containing ventral hernia. The ap pendix is normal. Significant rectosigmoid diverticulosis coli is present without diverticulitis. No evidence of significant lymphadenopathy. Moderate lumbosacral degenerative changes. IMPRESSION: 26 x 17 mm hypodense mass has developed in the pancreatic head region. This is suspiciou s for neoplasia. MRI of the abdomen with gadolinium would be recommended for further assessment. Significant colonic diverticulosis is present with moderate fecal retention. No acute diverticulitis is seen. Moderate fat containing ventral hernia.
[2020-11-07 22:21] LABS: Urine Blood TRACE (NEG); Urine Glucose NEGATIVE (NEG); Urine Protein NEGATIVE (NEG); Urine Specific Gravity 1.025 (1.005-1.030)
[2020-11-07 22:22] LABS: Urine Bacteria >50 /HPF (<20); Urine RBC NONE SEEN /HPF (NONE SEEN); Urine Urothelial Cells <5 /HPF (NONE SEEN)
--- NOTE | 2020-11-07 22:42 | EDPHYS ---
Physician Documentation [facility] Name: Caridad Chadwick Age: 85 yrs Sex: Female : 1935 Arrival Date: 11/07/2020 Time: 17:09 Bed 4 Private MD: Henry Abernathy C; Pablo Estrada H ED Physician Germán Forrester HPI: 11/07 19:25 This 85 yrs old Female presents to ER via EMS with complaints of Rectal cp Bleeding. 19:25 The patient presents to the emergency department with bleeding from the rectum/anus, cp noticed when wiping. 19:25 Onset: The symptoms/episode began/occurred today. Associate signs and symptoms: cp Pertinent positives: abdominal pain in the right lower quadrant and left lower quadrant, loose stools, Pertinent negatives: fever. 19:25 Patient reports noticing bright red blood after using restroom today and when wiping cp vaginal and rectal area. Patient unsure if bleeding from rectum or vaginal area. Patient reports she is currently on antibiotics for C-diff infection. Historical: - Allergies: 17:15 Codeine; ll1 - PMHx: 17:15 Diabetes - NIDDM; Diverticulitis; Hypothyroidism; Hypertension; Rheumatoid Arthritis; ll1 GERD; C Diff; - PSHx: 17:15 left foot; knee sx; Bladder suspension; ll1 - Immunization history:: Flu vaccine is up to date. - Social history:: Smoking status: Patient denies any tobacco usage or history of. ROS: 19:30 Abdomen/GI: Positive for abdominal pain, of the right lower quadrant and left lower cp quadrant, Negative for vomiting, constipation, anorexia, black/tarry stool. 19:30 Constitutional: Negative for fever. cp Exam: 19:45 Constitutional: The patient appears in no acute distress, alert, awake, non-toxic, well cp developed, well nourished. 19:45 Head/Face: Normocephalic, atraumatic. cp 19:45 Eyes: Periorbital structures: appear normal, Conjunctiva: normal, no exudate, no injection, Sclera: no appreciated abnormality, Lids and lashes: appear normal, bilaterally. 19:45 ENT: External ear(s): are unremarkable, Nose: is normal, Posterior pharynx: Airway: no evidence of obstruction, patent. 19:45 Chest/axilla: Inspection: normal, Palpation: is normal, no crepitus, no tenderness. 19:45 Cardiovascular: Rate: normal, Rhythm: regular. 19:45 Respiratory: the patient does not display signs of respiratory distress, Respirations: normal, no use of accessory muscles, no retractions, labored breathing, is not present, Breath sounds: are clear throughout, no decreased breath sounds. 19:45 Abdomen/GI: Inspection: abdomen appears normal, Palpation: mild abdominal tenderness, in the right lower quadrant and left lower quadrant, rebound tenderness, is not appreciated, voluntary guarding, is not appreciated, involuntary guarding, is not appreciated, Rectal exam: Stool: brown, guaiac positive, maroon, hemorrhoid(s), external, with associated bleeding. Vital Signs: 17:10 BP 122 / 70; Pulse 75; Resp 17; Temp 97.5; Pulse Ox 96% ; Weight 60.78 kg; Height 5 ft. ll1 1 in. (154.94 cm); Pain 5/10; 20:48 BP 120 / 80; Pulse 80; Resp 18; Pulse Ox 100% on R/A; mg2 22:47 BP 121 / 80; Pulse 81; Resp 18; Temp 98; Pulse Ox 100% on R/A; mg2 17:10 Body Mass Index 25.32 (60.78 kg, 154.94 cm) ll1 MDM: 19:17 Patient medically screened. cp 21:00 Differential diagnosis: hemorrhoids, fissure, abscess, upper GI bleed, lower GI bleed. cp 22:40 Data reviewed: vital signs, nurses notes, lab test result(s), radiologic studies, CT cp scan, I have discussed the patient's presentation/case with the attending Emergency Department Physician; and as a result, I will discharge patient. 22:40 Counseling: I had a detailed discussion with the patient and/or guardian regarding: the cp historical points, exam findings, and any diagnostic results supporting the discharge/admit diagnosis, lab results, radiology results, the need for outpatient follow up, an cloth shrinker, to return to the emergency department if symptoms worsen or persist or if there are any questions or concerns that arise at home. 11/07 19:18 Order name: Basic Metabolic Panel; Complete Time: 20:16 cp 11/07 19:18 Order name: CBC with Diff cp 01/20 20:44 Interpretation: Normal except: RBC 3.79; HGB 9.7; HCT 30.4; MCV 80.3; MCH 25.6; MCHC cp 31.8; RDW 20.8. 11/07 19:18 Order name: Hepatic Function; Complete Time: 20:16 cp 11/07 19:18 Order name: Lipase; Complete Time: 20:16 cp 11/07 19:18 Order name: Urine Microscopic Only; Complete Time: 22:26 cp 11/07 22:26 Interpretation: Normal except: UBACT >50. cp 11/07 19:18 Order name: PT-INR; Complete Time: 20:44 cp 11/07 19:18 Order name: IV Saline Lock; Complete Time: 20:48 cp 11/07 19:18 Order name: Labs collected and sent; Complete Time: 20:48 cp 11/07 19:18 Order name: Ptt, Activated; Complete Time: 20:44 cp 11/07 20:17 Order name: CT Abd/Pelvis - IV Contrast Only; Complete Time: 21:40 cp 11/07 20:45 Order name: Urine Dipstick--Ancillary (enter results); Complete Time: 22:26 mw2 11/07 22:26 Interpretation: Normal except: UBLD TRACE; UESTR TRACE. cp 11/07 22:24 Order name: Urine Culture EDMI 11/07 19:18 Order name: Urine Dipstick-Ancillary (obtain specimen); Complete Time: 20:48 cp 11/07 20:17 Order name: Cath; Complete Time: 20:45 cp Administered Medications: 20:23 Drug: NS 0.9% 250 ml Route: IV; Rate: bolus; Site: right antecubital; mg2 22:44 Follow up: Response: No adverse reaction; IV Status: Completed infusion; IV Intake: mg2 250ml 22:44 Drug: LevaQUIN 500 mg Route: PO; mg2 22:44 Follow up: Response: No adverse reaction; Medication administered at discharge. mg2 Point of Care Testing: Guaiac: 22:47 Stool Guaiac: Positive; Stool Hemoccult Control: Pass; mg2 Disposition: 23:00 Chart complete. cp Disposition: 11/07/20 22:41 Discharged to Home. Impression: Other hemorrhoids, Mass of head of pancreas. - Condition is Stable. - Discharge Instructions: High-Fiber Diet, Hemorrhoids. - Prescriptions for Levaquin 250 mg Oral Tablet - take 1 tablet by ORAL route once daily for 3 days start evening of 11-08-2020; 2 tablet. - Medication Reconciliation Form, Thank You Letter, Antibiotic Education, Prescription Opioid Use form. - Follow up: Henry Abernathy MD; When: 2 - 3 days; Reason: Recheck today's complaints. - Problem is new. - Symptoms have improved. Addendum: 11/10/2020 10:08 Co-signature as Attending Physician, Germán Forrester MD. r n Signatures: Dispatcher [employer] EDMS Germán Forrester MD MD rn [place] PA cp Luis Felipe Pickering RN RN mg2 Andrea Narvaez RN RN ll1 Corrections: (The following items were deleted from the chart) 11/07 22:19 19:41 Pelvic Exam Setup ordered. cp mg2 22:43 22:41 11/07/2020 22:41 Discharged to Home. Impression: Other hemorrhoids. Condition is cp Stable. Forms are Medication Reconciliation Form, Thank You Letter, Antibiotic Education, Prescription Opioid Use. Follow up: Henry Abernathy; When: 2 - 3 days; Reason: Recheck today's complaints. Problem is new. Symptoms have improved. cp 22:50 22:43 11/07/2020 22:41 Discharged to Home. Impression: Other hemorrhoids; Mass of head mg2 of pancreas. Condition is Stable. Discharge Instructions: High-Fiber Diet, Hemorrhoids. Forms are Medication Reconciliation Form, Thank You Letter, Antibiotic Education, Prescription Opioid Use. Follow up: Henry Abernathy; When: 2 - 3 days; Reason: Recheck today's complaints. Problem is new. Symptoms have improved. cp
--- NOTE | 2020-11-07 22:42 | ER ---
Nurse's Notes [facility] Name: Caridad Chadwick Age: 85 yrs Sex: Female : 1935 Arrival Date: 11/07/2020 Time: 17:09 Bed 4 Private MD: Henry Abernathy C; Pablo Estrada H Diagnosis: Other hemorrhoids;Mass of head of pancreas Presentation: 11/07 17:10 Chief complaint: Patient states: Reports bright red rectal bleeding with wiping at 1230 ll1 and 1400 today. Currently on antibiotics for C diff. Vaginal itching/burning began 1 week ago. Coronavirus screen: Client denies travel out of the [place] in the last 14 days. At this time, the client does not indicate any symptoms associated with coronavirus-19. Ebola Screen: Patient denies travel to an Ebola-affected area in the 21 days before illness onset. Initial Sepsis Screen: Does the patient meet any 2 criteria? No. Patient's initial sepsis screen is negative. Does the patient have a suspected source of infection? Yes: Acute abdominal pain. Risk Assessment: Do you want to hurt yourself or someone else? Patient reports no desire to harm self or others. Onset of symptoms was November 07, 2020. 17:10 Method Of Arrival: EMS ll1 17:10 Acuity: ZOIE 3 ll1 Triage Assessment: 20:40 General: Behavior is calm, cooperative. mg2 Historical: - Allergies: 17:15 Codeine; ll1 - PMHx: 17:15 Diabetes - NIDDM; Diverticulitis; Hypothyroidism; Hypertension; Rheumatoid Arthritis; ll1 GERD; C Diff; - PSHx: 17:15 left foot; knee sx; Bladder suspension; ll1 - Immunization history:: Flu vaccine is up to date. - Social history:: Smoking status: Patient denies any tobacco usage or history of. Screenin:46 Abuse screen: Denies threats or abuse. Denies injuries from another. Nutritional mg2 screening: No deficits noted. Tuberculosis screening: No symptoms or risk factors identified. Fall Risk IV access (20 points). Assessment: 20:40 General: Appears in no apparent distress. comfortable. Pain: Denies pain. Neuro: Level mg2 of Consciousness is awake, alert, obeys commands, Oriented to person, place, time, situation. Cardiovascular: Capillary refill < 3 seconds Patient's skin is warm and dry. Respiratory: Airway is patent Respiratory effort is even, unlabored, Respiratory pattern is regular, symmetrical. GI: Last BM was November 07, 2020. Reports rectal bleeding. : No signs and/or symptoms were reported regarding the genitourinary system. EENT: No signs and/or symptoms were reported regarding the EENT system. Derm: Skin is intact, is healthy with good turgor, Skin is pink, warm \T\ dry. normal. Musculoskeletal: Circulation, motion, and sensation intact. Capillary refill < 3 seconds. 20:49 General: [phone] ( daughter). mg2 Vital Signs: 17:10 BP 122 / 70; Pulse 75; Resp 17; Temp 97.5; Pulse Ox 96% ; Weight 60.78 kg; Height 5 ft. ll1 1 in. (154.94 cm); Pain 5/10; 20:48 BP 120 / 80; Pulse 80; Resp 18; Pulse Ox 100% on R/A; mg2 22:47 BP 121 / 80; Pulse 81; Resp 18; Temp 98; Pulse Ox 100% on R/A; mg2 17:10 Body Mass Index 25.32 (60.78 kg, 154.94 cm) ll1 ED Course: 17:09 Patient arrived in ED. ll1 17:14 Triage completed. ll1 17:15 Arm band placed on. ll1 18:59 [place] PA is PHCP. cp 18:59 Germán Forrester MD is Attending Physician. cp 19:08 Luis Felipe Pickering, SHARLENE is Primary Nurse. mg2 19:40 Inserted saline lock: 20 gauge in right antecubital area, using aseptic technique. oe Blood collected. 20:57 Henry Abernathy MD is Private Physician. sg 20:57 Pablo Estrada MD is Private Physician. sg 21:12 CT Abd/Pelvis - IV Contrast Only In Process Unspecified. 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 IV discontinued, intact, bleeding controlled, mg2 No redness/swelling at site. Pressure dressing applied. 22:39 Henry Abernathy MD is Referral Physician. cp 22:46 Patient has correct armband on for positive identification. mg2 Administered Medications: 20:23 Drug: NS 0.9% 250 ml Route: IV; Rate: bolus; Site: right antecubital; mg2 22:44 Follow up: Response: No adverse reaction; IV Status: Completed infusion; IV Intake: mg2 250ml 22:44 Drug: LevaQUIN 500 mg Route: PO; mg2 22:44 Follow up: Response: No adverse reaction; Medication administered at discharge. mg2 Point of Care Testing: Guaiac: 22:47 Stool Guaiac: Positive; Stool Hemoccult Control: Pass; mg2 Intake: 22:44 IV: 250ml; Total: 250ml. mg2 Outcome: 22:41 Discharge ordered by MD. cp 22:47 Discharged to home via wheelchair, with family. mg2 22:47 Condition: stable 22:47 Discharge instructions given to patient, family, Instructed on discharge instructions, follow up and referral plans. medication usage, Demonstrated understanding of instructions, follow-up care, medications, Prescriptions given X 1. 22:50 Patient left the ED. mg2 Addendum: 11/11/2020 07:11 Addendum: Culture Results: Positive urine culture. No further action required. Bacteria e b sensitive to prescribed antibiotic. Signatures: Dispatcher [employer] EDMS Eddie Anglin RN RN sg [place] PA PA cp Malvin Condon Elizabeth eb Gardose, Michele, RN RN mg2 Andrea Narvaez RN RN ll1
[2020-11-07] MEDS ORDERED: levoFLOXacin 500 MG TAB ONE (22:54)
[2020-11-07 23:04] VITALS: O2SAT 100
[2020-11-07 23:05] VITALS: BP 121/80; TEMP 98
[2020-11-08 00:29] LABS: Anisocytosis 1+; Blood Morphology Comment NOTED (NOT SEEN); Platelet Estimate ADEQ; White Blood Cell Scan OK (OK)
== END 2020-11-07 22:50 | disposition home or self-care (01) ==
LOC: ER 17:06
DX: K64.8 Other hemorrhoids (principal); K86.9 Disease of pancreas, unspecified; Z88.6 Allergy status to analgesic agent
CPT/HCPCS: 87088; 85025; 87086; 80048; 36415; 85610; 80076; 85730; 83690; 74177; Q9967; J7050; 81003; 81015; 87077; 87186; 96365; 96366; 99284

== ENCOUNTER 2021-02-10 18:06 | Emergency (ER) | payer SELFPAY ==
--- OUTSIDE RECORDS SUMMARY | 2021-02-10 18:09 | XMS REPORT | Continuity of Care Document ---
:1935 Author Organization [facility] t Address [address] [place] [address] Care Team Providers Name Role Phone Irish Primary Care Physician Renzo DELANEY Attending Clinician RENZO Attending Clinician Unavailable Elin Moran MD Attending Clinician Blanquita Joseph Attending Clinician Donna DELANEY, BAngi Attending Clinician Mike Fagan MD Attending Clinician Sy Thorpe MD Attending Clinician [phone] Avery Heard MD Attending Clinician Francisco ROJO Attending Clinician Víctor DELANEY W. Attending Clinician Norman MARIE Attending Clinician Unavailable Felicitas Coronel Attending Clinician Katerin Gutierrez Attending Clinician Rajwinder Willoughby Attending Clinician Lia DELANEY, PAngi Attending Clinician Lilian DELANEY AAngi Attending Clinician RENZO Admitting Clinician Unavailable HIRAL Admitting Clinician Unavailable LIA Admitting Clinician Unavailable Payers Payer Name Policy Type Policy Effective Date Expiration Date Sour ce Number [facility] [id number] 2020 [place] - - MEDICARE MGD 00:00:00 Medical Ce nter CAREUNITED MEDICARE [id number] 021-Present UHC MEDICAREUHC [id number] 2020 [place] [facility] MEDICARE 00:00:00 [place] [id number]-PresentPPO Problems Condition Condition Condition Status Onset Resolution Last Treating Co mments Source Name Details Category Date Date Treatment Clinician Date Hyperlipid Hyperlipid Disease Active [facility] emia emia -02 Methodi 00:00: st 00 DM DM Disease Active [place] (diabetes (diabetes 04-19 Meth vivek mellitus) mellitus) 00:00: st 00 UTI UTI Disease Active [place] (urinary (urinary 04-19 Method i tract tract 00:00: st infection) infection) 00 Spondyloli Spondyloli Disease Active Overview : [place] sthesis at sthesis at 2-12 Formattin Methodi L4-L5 L4-L5 00:00: g of this st level level 00 note might be different from the original. Added automatic ally from request for surgery [id number] Spondyloli Spondyloli Disease Active Overview : [place] sthesis at sthesis at 2-12 Formattin Methodi L5-S1 L5-S1 00:00: g of this st level level 00 note might be different from the original. Added automatic ally from request for surgery [id number] Trochanter Trochanter Disease Active Overview : [place] ic ic 2-12 Form[place] Methodi bursitis bursitis 00:00: g of this st of right of right 00 note hip hip might be different from the original. Added automatic ally from request for surgery [id number] Diverticul Diverticul Disease Active [facility] itis itis 5-20 Methodi 00:00: st 00 Abscess of Abscess of Disease Active [facility] sigmoid sigmoid 5-07 Methodi colon colon 00:00: st 00 Other Other Disease Active [place] spondylosi spondylosi 4-10 Me thodi s with s with 00:00: st radiculopa radiculopa 00 thy, thy, lumbar lumbar region region Spondyloli Spondyloli Disease Active H [place] sthesis of sthesis of 4-10 Me thodi lumbar lumbar 00:00: st region region 00 Primary Primary Disease Active 2015-10 [facility] osteoarthr osteoarthr 0-17 Me thodi itis of itis of 00:00: st right knee right knee 00 Rheumatoid Rheumatoid Disease Active 2016-0 [facility] [place] arthritis arthritis 7-21 Meth vivek involving involving 00:00: st multiple multiple 00 sites with sites with positive positive rheumatoid rheumatoid factor factor Follow-up Follow-up Disease Active Ray simpson examinatio examinatio 7-19 Me thodi n n 00:00: st following following 00 treatment treatment with with high-risk high-risk medication medication Hypothyroi Hypothyroi Disease Active H [place] dism dism 04-03 Methodi 00:00: st 00 S/P S/P Disease Active [place] ALBANIA-BSO ALBANIA-BSO 04-03 Methodi 00:00: st 00 Hypertensi Hypertensi Disease Active H [place] on on 04-03 Methodi 00:00: st 00 Degenerati Degenerati Disease Active H [place] on of on of 03-09 Methodi interverte interverte 00:00: st bral disc bral disc 00 of of lumbosacra lumbosacra l region l region Allergies, Adverse Reactions, Alerts Allergy Allergy Status Severity Reaction(s) Onset Inactive Treating Comm ents Source Name Type Date Date Clinician Codeine Drug Active Mild Other [facility] Allergy 5-20 reaction( [facility] - 00:00: s): Other Medical 00 (See Center Comments) FEELS CRAZY PER PT Codeine Propensi Active Other (See FEELS Ray simpson ty to Comments) 5-20 CRAZY PER Meth vivek adverse 00:00: PT st reaction 00 s to drug Family History Family Member Diagnosis Comments Start Date Stop Date Source Natural brother Diabetes [facility] Nuno ethodist Natural father Lung cancer [place] ethodist Natural mother Old age Ras Me thodist Social History Social Habit Start Date Stop Date Quantity Comments Source Tobacco use and 2020-09-17 2020-09-17 Never used [place] ethodist exposure 00:00:00 00:00:00 Alcohol intake 2020-09-17 2020-09-17 Current drinker [place] 00:00:00 00:00:00 of alcohol (finding) Alcohol Comment 2019-10-31 2019-10-31 1-2 times a year Ray simpson [facility] 00:00:00 00:00:00 [birth year] At [birth year] Ras Nuno ethodist 00:00:00 00:00:00 Smoking Status Start Date Stop Date Source Never smoker [place] Method[facility] t Medications Ordered Filled Start Stop Current Ordering Indication Dosage Frequency Signature Comments Components Source Medication Medication Date Date Medication? Clinician (SIG) Name Name predniSONE Yes 6mg QD Take [address] (DELTASONE) 2-11 by mouth Luke s - 1 MG tablet 16:50: daily. Medi eduar 20 Center levothyroxi Yes 88ug QD Take [address] ne 2-11 mcg by [facility] - (SYNTHROID, 16:50: mouth Medic al LEVOTHROID) 20 daily . Cente r 88 MCG tablet hydroxychlo Yes Q.5D Take by [facility] roquine 2-11 mouth 2 [facility] - (PLAQUENIL) 16:50: (two) Medic al 200 mg 20 times Center tablet daily. carvediloL Yes 12.5mg Take 12.[address] (COREG) 2-11 mg by [facility] - 12.5 MG 16:50: mouth 2 Medical tablet 20 (two) Center times daily with breakfast and dinner. metFORMIN Yes 500mg Take [address] [facility] (GLUCOPHAGE 2-11 mg by [facility] - ) 500 MG 16:50: mouth 2 Medica l tablet 20 (two) Center times daily with breakfast and dinner. sodium Yes 2mg/kg Inject 2 [facility] chloride 2-11 mg/kg [facility] - 0.9% (NS) 16:50: intravenou Me dical SolP 100 mL 20 sly once Cent er with every 8 golimumab weeks. 12.5 mg/mL Soln 2 mg/kg multivit,th Yes QD Take by [facility] er.w-iron,h 2-11 mouth [facility] - ematinic 16:50: daily. Medical (THERAPEUTI 20 Center C FORMULA/HEM ATINICS ORAL) olmesartan Yes 40mg QD Take [address] (BENICAR) 2-11 by mouth [facility] - 40 MG 16:50: daily. Medical tablet 20 [place] leflunomide Yes 10mg QD Take [address] (ARAVA) 10 2-11 by mouth [facility] - MG tablet 16:50: daily. Medica l 20 [place] rosuvastati Yes 5mg QD Take [address] n (CRESTOR) 2-11 by mouth Luke s - 5 MG tablet 16:50: daily. Medi eduar 20 [facility] omeprazole Yes 20mg QD Take [address] (PriLOSEC) 2-11 by mouth [facility] - 20 MG 16:50: daily. Medical capsule 20 [facility] cyanocobala Yes 100ug QD Take [address] min, 2-11 mcg by [facility] - vitamin 16:50: mouth Medical B-12, 100 20 daily. [facility] MCG tablet ferrous Yes 325mg Take 325 [facility] sulfate 325 2-11 mg by [facility] - (65 FE) MG 16:50: mouth Medica l tablet 20 daily with [facility] breakfast. spironolact 2020- No 25mg QD Take [address] one 2-08 02-08 by mouth [facility] - (ALDACTONE) 11:57: 00:00 daily. Med ical 25 MG 49 :00 [facility] tablet estradiol 2020- No .5mg QD Take 0.[address] (ESTRACE) 2-08 02-08 mg by [facility] - 0.5 MG 11:56: 00:00 mouth Medical tablet 09 :00 daily. [place] hydrOXYchlo Yes QD Take by Ray simpson [...] n (ULTRAM) 50 0-08 10-28 TABLET BY La thodi mg tablet 00:00: 23:[address] 00 :00 EVERY 6 HOURS NEEDED FOR PAIN traMADoL 2019- No chronic 50mg Q6H Take 1 [facility] (Ultram) 50 8-19 10-08 pain tablet (50 M ethodi mg tablet 00:00: 00:00 mg total) st 00 :00 by mouth every 6 (six) hours as needed for moderate pain .chronic pain. pregabalin 2020-0 2020- No 50mg Q.5D Take 1 [place] (Lyrica) 50 05-30 09-11 capsule Meth vivek MG capsule 00:00: 23:59 ([address] 00 :00 total) by mouth 2 (two) times a day for 30 days. diclofenac 2019- 2020- No Nontraumati Q.25D Apply [place] (VOLTAREN) 05-08 11-24 c topically Met hodi 1 % gel 00:00: 00:00 incomplete 4 (four) st 00 :00 tear of times a right day. Apply rotator 2 gms to cuff affected area 4 times a day methocarbam 2019- 2020- No 750mg Q.[id number] Take 1 [place] oL 04-23 [id number] tablet Method i (Robaxin-75 00:00: 00:00 3D ([address] 0) 750 MG 00 :00 total) by tablet mouth 3 (three) times a day. amoxicillin 2020- No 500mg Q.5D Take 1 Ho ron -pot 04-19 07-14 tablet Methodi clavulanate 00:00: 23:59 ([address] (Augmentin) 00 :00 total) by 500-125 mg mouth 2 per tablet (two) times a day for 12 days. traMADoL 2019- 2020- No chronic acute [place] (ULTRAM) 50 7 07-12 pain pain, Method i mg tablet 00:00: 23:[address] 00 :00 pain. Take 1 tablet by mouth every 4-6 hours as needed for pain. sulfamethox 2019- 2020- No 1{tbl} Q.5D Take 1 [place] azole-trime 04-17-03 tablet by Me thodi thoprim 00:00: 00:[address] (Bactrim 00 :00 (two) DS) 800-160 times a mg per day for 10 tablet days. amLODIPine 2019- 2020- No 5mg QD Take 5 mg [place] (NORVASC) 5 04-16 06-29 by mouth Met hodi mg tablet 11:15: 00:[address] 03 :00 traMADoL 2019-0 2020- No chronic chronic [place] (ULTRAM) 50 6- 07-02 pain pain. Take M ethodi mg tablet 00:00: 00:[address] 00 :00 by mouth every 6-8 hours as needed for pain. nitrofurant 2019- 2020- No 100mg Q.5D Take 1 [place] velasquez oin, 6-25 capsule Methodi macrocrysta 00:00: 23:59 (100 mg [...] 5mg QD Take 5 mg [place] (TRADJENTA) 5- 05-08 by mouth Met hodi 5 mg tablet 12:40: 00:[address] 23 :00 breakfast. naproxen 2019-0 2020- No 220mg Q12H Take [address] sodium 5- 05-08 mg by Methodi (ALEVE) 220 12:37: 00:[address] MG tablet 58 :00 every 12 (twelve) hours as needed for mild pain. metFORMIN 2019- 2020- No 1000mg Q.5D Take 1,000 [place] (GLUCOPHAGE 5-08 05-08 mg by Method i ) 1,000 mg 12:37: 00:[address] tablet 42 :00 (two) times a day with meals. naproxen 2019-0 2020- No 500mg Q.5D Take 1 [place] (NAPROSYN) 2 05-08 tablet Method i 500 MG 00:00: 00:00 ([address] tablet 00 :00 total) by mouth 2 (two) times a day. carvedilol 2020- No TK 1 T PO [place] (COREG) 05-12 05-08 BID Methodi 6.25 MG 00:00: 00:00 st tablet 00 :00 DULoxetine 2016- 2020- No QD nightly. [place] velasquez (CYMBALTA) 6 05-08 Methodi 60 MG 00:00: 00:00 st capsule 00 :00 RESTASIS Yes 1[drp] Administer [place] 0.05 % 06-24 1 drop to Methodi ophthalmic 00:00: both eyes st emulsion 00 daily. Vital Signs Vital Name Observation Time Observation Value Comments Source Systolic blood 2020-11-29 162 mm[Hg] [facility] - pressure 15:17:00 DR[facility]GUITTEREZ JEAN [facility] er Diastolic blood 2020-11-29 70 mm[Hg] [facility] - pressure 15:17:00 DR.GUITTEREZ JEAN [facility] er Heart rate 2020-11-29 62 /min [facility] - 15:17:00 [facility] Body temperature 2020-11-29 36.44 Blanca [facility] - 15:17:00 [facility] Respiratory rate 2020-11-29 16 /min [facility] - 15:17:00 [facility] Oxygen saturation 2020-11-29 95 /min [facility] St Javed es - in Arterial blood 15:17:00 [facility] nter by Pulse oximetry Body height 2020-11-29 156.2 cm [facility] - 11:27:00 [facility] Body weight 2020-11-29 60.555 kg [facility] - 11:27:00 [facility] BMI 2020-11-29 24.82 kg/m2 [facility] - 11:27:00 [facility] Systolic blood 2020-09-12 135 mm[Hg] [place] pressure 11:30:00 [facility] Diastolic blood 2020-09-12 63 mm[Hg] [place] pressure 11:30:00 [facility] Heart rate 2020-09-12 66 /min [place] 11:30:00 [facility] Respiratory rate 2020-09-12 16 /min [place] 11:30:00 [place] Oxygen saturation 2020-09-12 98 /min [place] in Arterial blood 11:30:00 [facility] by Pulse oximetry Body temperature 2020-09-12 36.67 Blanca [place] 10:45:00 [place] Body height 2020-06-05 154.9 cm [place] 13:10:00 [place] Body weight 2020-06-05 66.225 kg [place] 13:10:00 [facility] BMI 2020-06-05 27.59 kg/m2 [place] 13:10:00 [place] Procedures Procedure Date / Time Performing Clinician Source Performed REPORT OF PROCEDURE - 2020-11-29 14:12:[address] [facility] - ENDOSCOPY [facility] CYTOLOGY REQUEST 2020-11-29 14:08:18 Amor Muller [facility] CYTOLOGY 2020-11-29 14:08:00 Amor Muller [facility] UPPER ENDOSCOPY,FNA 2020-11-29 13:50:00 Amor Muller [facility] ukes - W[facility] POCT-GLUCOSE METER 2020-11-29 11:45:00 Amor Muller [facility] IA ARTHROCENTESIS 2020-09-28 14:10:00 Juan Antonio Fagan [facility] ASPIR&/INJ MAJOR JT/BURSA W/O US OR [place] < 1 HOUR 2020-09-12 10:47:06 Jeovanny Thorpe ethodist Sy Pike INJECTION, STEROID, 2020-09-12 10:24:00 Jeovanny Thorpe on [facility] SPINE, LUMBAR, EPIDURAL, Sy Pike SINGLE MRI LUMBAR SPINE W WO 2020-07-24 15:04:31 Sonny Guaman on [place] CONTRAST ESTIMATED GFR 2020-07-24 14:03:00 Sonny Guaman Met hodist POC CREATININE 2020-07-24 14:03:00 Sonny Guaman Met h[facility]ist XR KNEE 4+ VW BILATERAL 2020-06-05 13:19:37 Malcolm Renee [facility] IA ARTHROCENTESIS 2020-05-08 13:10:00 Juan Antonio Faganist ASPIR&/INJ MAJOR JT/BURSA W/O US BASIC METABOLIC PANEL 2020-04-20 06:30:00 Soo Nava HC COMPLETE BLD COUNT 2020-04-20 06:30:00 Soo Nava [facility] W/AUTO DIFF ESTIMATED GFR 2020-04-20 06:30:00 Soo Nava Me thodist POC GLUCOSE 2020-04-19 11:40:00 Syeda Fitzgerald ethodist [place] < 1 HOUR 2020-04-19 10:50:00 Sonny Guaman Met [facility]ist URINE CULTURE 2020-04-19 09:23:00 Sonny Guaman [facility] URINALYSIS SCREEN AND 2020-04-19 09:23:00 Sonny Guaman on [facility] MICROSCOPY, WITH REFLEX TO CULTURE IA AN ELECTIVE 2020-04-19 09:17:55 Shanice Quintana ethodist ENDOTRACHEAL AIRWAY LAMINOTOMY, LUMBAR 2020-04-19 08:59:00 Sonny Guaman [facility] POC GLUCOSE 2020-04-19 08:28:00 Sonny Guaman Met hodist POC GLUCOSE 2020-04-19 08:26:00 Sonny Guaman Met hodist POC GLUCOSE 2020-04-19 08:25:00 Sonny Guaman Met [facility] URINE CULTURE 2020-04-19 07:54:00 Sonny Guaman [facility] URINALYSIS SCREEN AND 2020-04-19 07:30:00 Sonny Guaman on [place] MICROSCOPY, WITH REFLEX TO CULTURE URINE CULTURE 2020-04-16 13:13:00 Sonny Guaman Met [facility]ist URINALYSIS SCREEN AND 2020-04-16 12:17:00 Sonny Guamna on [facility] MICROSCOPY, WITH REFLEX TO CULTURE HC COMPLETE BLD COUNT 2020-04-16 12:05:00 Magy Bashir on [facility] W/AUTO DIFF TYPE AND SCREEN 2020-04-16 12:05:00 Magy Bashir Met [facility]ist HEMOGLOBIN A1C 2020-04-16 12:05:00 Magy Bashir Met h[facility]ist COVID-19 QUALITATIVE PCR 2020-04-16 11:30:00 Magy Bashir [facility] COVID-19 QUALITATIVE PCR 2020-04-05 13:02:00 Magy Bashir [facility] URINE CULTURE 2020-04-03 14:17:00 Horacio Vernon ethodi COMPREHENSIVE METABOLIC 2020-04-03 14:17:00 Horacio Vernon [facility] PANEL PARTIAL THROMBOPLASTIN 2020-04-03 14:17:00 Horacio Vernon [facility] TIME (PTT) URINALYSIS, COMPLETE, 2020-04-03 14:17:00 Horacio Vernon [facility] WITH REFLEX TO CULTURE PROTHROMBIN TIME WITH INR 2020-04-03 14:17:00 Horacio Vernon CBC WITH PLATELET AND 2020-04-03 14:17:00 Horacio Vernon DIFFERENTIAL XR CHEST 2 VW 2020-02-24 14:03:25 Sonny Guaman Met hodjadyn COVID-19 QUALITATIVE PCR 2020-02-24 13:15:00 Magy Bashir [place] ECG PRE/POST OP 2020-02-24 13:04:59 Sonny Guaman Met hodist HC COMPLETE BLD COUNT 2020-02-24 12:48:00 Sonny Guaman on [place] W/AUTO DIFF COMPREHENSIVE METABOLIC 2020-02-24 12:48:00 Sonny Guaman PANEL PARTIAL THROMBOPLASTIN 2020-02-24 12:48:00 Sonny Guaman [facility] TIME (PTT) PROTHROMBIN TIME WITH INR 2020-02-24 12:48:00 Sonny Guaman [place] TYPE AND SCREEN 2020-02-24 12:48:00 Magy Bashir Met adrián HEMOGLOBIN A1C 2020-02-24 12:48:00 Magy Bashir Met hodist ESTIMATED GFR 2020-02-24 12:48:00 Sonny Guaman Met adrián Plan of Care Planned Activity Planned Date Details Comments Source Future Scheduled 2021-05-19 INFLUENZA VACCINE Atiya bill [facility] Test 00:00:00 [code = INFLUENZA VACCINE] Future Scheduled 2020-10-[address] [facility] - Test 00:00:00 (12+) [code = Medical Center DEPRESSION SCREENING (12+)] Future Scheduled 2020-06-19 INFLUENZA VACCINE (#1) [facility] 00:00:00 [code = INFLUENZA Medical Ce nter VACCINE (#1)] Future Scheduled 1998 PNEUMOCOCCAL 65+ YRS [facility] - Test 00:00:00 (1 of 1 - Medical Center [id number] PCV13) [code = PNEUMOCOCCAL 65+ YRS (1 of 1 - [id number] PCV13)] Future Scheduled 1983 SHINGLES VACCINES ([address] [facility] - Test 00:00:00 of 2) [code = SHINGLES Medic al Center VACCINES (1 of 2)] Future Scheduled 1983 SHINGLES VACCINES (#1) H [place] [facility] Test 00:00:00 [code = SHINGLES VACCINES (#1)] Future Scheduled 1952 DTAP/TDAP/TD VACCINES [facility] Test 00:00:00 (1 - Tdap) [code = Medical C enter DTAP/TDAP/TD VACCINES (1 - Tdap)] Future Scheduled 1949 COVID-19 VACCINE (1) [place] simpson [facility] Test 00:00:00 [code = COVID-19 VACCINE (1)] Future Scheduled 1943 DIABETES: RETINAL EYE [place] Test 00:00:00 EXAM [code = DIABETES: RETINAL EYE EXAM] Future Scheduled 1943 DIABETIC FOOT EXAM [place] Test 00:00:00 [code = DIABETIC FOOT EXAM] Future Scheduled 1945 URINE MICROALBUMIN [place] Test 00:00:00 [code = URINE MICROALBUMIN] Future Scheduled 1939 65+ PNEUMOCOCCAL [place] Test 00:00:00 VACCINE (1 of 2 - PPSV23) [code = 65+ PNEUMOCOCCAL VACCINE (1 of 2 - PPSV23)] Encounters Start End Encounter Admission Attending Care Care Encounter Source Date/Time Date/Time Type Type Clinicians Facility Department ID 2020-10-23 2020-10-23 [facility]patient [facility] [id number] [place] 00:00:00 00:00:00 SONNY 490 Method i 2020-09-28 2020-09-28 [facility] [id number] [place] 00:00:00 00:00:00 JUAN ANTONIO [address] 2020-09-12 2020-09-[address] [id number] [place] 00:00:00 00:00:[address] BAHAI [address] 2020-08-17 2020-08-17 Outpatient [facility] [id number] [place] 00:00:00 00:00:00 SONNY [address] 2020-07-24 2020-07-24 Outpatient [facility] [id number] [place] 00:00:00 00:00:00 SONNY [address] 2020-07-02 2020-07-02 Outpatient WOOD, [facility] [id number] [place] 00:00:00 00:00:00 SONNY [address] 2020-06-05 2020-06-05 Outpatient MAFFET, [facility] [id number] [place] 00:00:00 00:00:00 MALCOLM [address] 2020-06-05 2020-06-05 Outpatient MAFFET, [facility] [id number] [place] 00:00:00 00:00:00 MALCOLM [address] 2020-05-30 2020-05-30 Outpatient WOOD, [facility] [id number] [place] 00:00:00 00:00:00 SONNY 972 Method i 2020-05-08 2020-05-08 Outpatient FAGAN, [facility] [id number] [place] 00:00:00 00:00:00 JUAN ANTONIO 550 Method i 2020-05-02 2020-05-02 Outpatient RADLEY, [facility] [id number] [place] 00:00:00 00:00:00 LEÓN [address] 2020-04-19 2020-04-20 Outpatient JOGLEKAR, [facility] [id number] [place] 00:00:00 00:00:00 SYEDA [address] 2020-04-16 2020-04-16 Outpatient WOOD, [facility] [id number] [place] 00:00:00 00:00:00 SONNY [address] 2020-04-05 2020-04-05 Outpatient WOOD, [facility] [id number] [place] 00:00:00 00:00:00 SONNY [address] 2020-02-24 2020-02-24 Outpatient WOOD, [facility] [id number] [place] 00:00:00 00:00:00 SONNY [address] 2020-02-24 2020-02-24 Outpatient WOOD, [facility] [id number] [place] 00:00:00 00:00:00 SONNY [address] 2020-02-24 2020-02-24 Outpatient WOOD, [facility] [id number] [place] 00:00:00 00:00:00 SONNY [address] 2020-02-24 2020-02-24 Outpatient WOOD, [facility] [id number] [place] 00:00:00 00:00:00 SONNY [address] 2019-11-02 2019-11-02 Outpatient PECCO, [facility] [id number] [place] 00:00:00 00:00:[address] BAHAI [address] 2019-09-22 2019-09-22 Outpatient LIDYACO, [facility] [id number] [place] 00:00:00 00:00:00 BAHAI [address] 2019-07-28 2019-07-28 Outpatient PECCO, [facility] [id number] [place] 00:00:00 00:00:00 BAHAI [address] Results Test Description Test Time Test Comments Results Result Comments Source Cytology 2020-12-01 14:27:00 Test Item Value Reference Range Interpretation Comme nts Case Report (test code = 104) Medical Cytology Report Case: [id number] Authorizing Provider: Amor Muller MD Collected: 11/29/2020 02:08 PM Ordering Location: [facility] Endoscopy Received: 11/30/2020 02:52 PM Services Pathologist: Moises Aguilar MD Specimen: Pancreas, pancreas cyst DIAGNOSIS (test code = 3220) b1sbjKFgNFDqv9ebSRTxyQOwJkPdLkVqPjNjCg p cdWMxIHtccnRmMVxlcGljOTIwMFxhbnNpXHNwbH JvK9TnrwzjWDqaSL4pHU5mmQwkhIJzbJRsEFOeN xXcp4bca630fTQma5xjQFYGookpyQb3aBchE10w h7N4KbbrE00ydAOkAOhyuTJysffrhzBpJNWUJwI AJHDBQTATU3AjIYgBCLSwSZEZCALaV3eYR7JFMO 9MRQozqNYbZQEsKV0yRzxsAPFXK4LTWSJFSZEZD dIHHXfHD27GZiWYOUNmvyyvETQoZWGzTKPnYNBz gFZnkwVnwWEqjdRxlH41qwQ2NKSnAPHbOSHkg3T zeESeq6GxnQf4oNN9GVQmrq12VUK2ClJit6A5VH V8GABrLYDzw3btATQtdXUpBiQxAcUyUiEhMjwbs HUiFGDmHaDwq7lvj402mUBwd7cuUAJiOyA5bBQe TFPbvXLqM709DUVvDDtcc9qyn9NqALNjxDSgc9G 8OUEXyfifpEm3oZnxN00gi2Y8JeilV4boQKYzSW YeH1PuAT7qZYKtJzf7SHP7YAF1TNFeROHxB6FoT M7lBPCmlOZdGVs7u7incNfeFOYeZKR8j0gnVBox uiIcIS0lgl9ykAf4j1wfiuTqQCEhFUNcyQYVDHS iN0UtjOksEi8ckUq3qVqdKlucRZR1Hfi6UF1hwr 39rub1rCahDCQeukkdGzF9DBxgSRYdzjlpQAg9J VshZFYqeLK6MFBuaAChA1YiERAiSB5psrw7YAU9 VRqcATFdNkD9WZEesPCeVTFusQwcNDaih208AYE 2UdQnNN4xS8Iua3K8cZ0snNYbTDPhnODiItFzWO Ddhq1duCFpIXbsb1JrSIH3gpJ4bFTqnAMoFZTtO rH1UNxyEH6uhy33UBDxMFD9cm8cgNMkgAvwasXj tNZvHQfbO0DwTFUev190LBEsM2NfNWYle8V3rgP uQuJrXVKwmDG5tjO6DPUyVG9qigwhb7deMPpzWW imEYPcaxS3uhN8ZRSquZHeS1AfkG2nCBSsSV6ek cbbl0ckIWM8TPkqHECxEZU0QiQxZRCni4Hxsmo4 VsRpo3TiiKNmQOzlD39xc525MIYpieRtY8mgkPB rpanyhJFbmjdzGJouuxY2GIPyNPgpuqlpFRApEZ xhN1kdXjJoTBBmjMcvFVrkp5RgSAFuSPZbZjTzj HMmUJIoUnc5RXAojCJgBYHnKjPiK7dgyhlbRjLN XNFkx0uoL3myiGPNvCRhJ1KrUUvujhKuLAgsSPv eKRRxPFE7IR8qABUrXWZler56 COMMENT (test code = 3354) v8yjmSNnCFUvkRV4DfKxWTLjv1dza6UnlWWkaZB wIWwlhMPeqvVakr09gPT8yU16PK3nHTVmEoT3MS HhtlE0Djw0PLWmCEGifTQgV624o2exq3ahkzYxc DU5jXjsPLFrQDDcTSylVNOtXcYyRVExDCixbdZu K6WhokBgCEXfgRTpNSBtxXLxPFliKMfdE6XleBR qJPBeFT8qtLLuCKlgcBgkamKkAStcctlelrToy4 I9xHU8mG7aKG8nBBWdoNKpAQDxxTsnzl5wcDNwV PKpbxArrd9qMYLhCTG5zPWdNVL0N4OjvWEopRd2 aGVsaWFsIGNlbGxzLiBccGFyfQ== CPT Code(s) (test code = 9014) e9elvODcFYOgnJM1FtShWYGgg7kox3IbcVIc cGF cQYgjtMTlkoQkcp06hRL2kZ43ML7nMDIaByQ9NF DcdbJ5Xsd5ZWOpCORviXNkG358g7tjj2ipxgCyq XH7tOxpEIWaEDMxXCnwNQFbJtIyKHkgVFgqGCs8 MzEzXHBhcn0= CLINICAL DATA (test code = 4212) f7aqbRCuHESuuVL6KaNfIWLsp7gms0JejW BncGF nHOpeaUYkoyYgzk09kOV1eX94TL1tLEHnOkB9GX SbpjO0Clr9NWSwFDGbfPFgH257j6hll1lgolNru ZC7iSxyNOFzVUTlJMdxTVKtSdJpGo83EXGkWFjd PB35EBKiKLFyUSIsd2ewQLaud9spycRmyZynNZL 5wLSnOP6mVWE1o4WdfEXisrKiWewxOBFspaN6zK OltXRbT7WnLSEdOePhKQIaNAJilc5= SPECIMEN SOURCE (test code = 3377) h7xwbEHwEQCliFA3PzRfTVEkx8dbm2Hr dHBncGF fKTmftTFiahLlmo07lJK6rK54OD0kWSUnWoI5TZ MlctO7Yut7WBApCELidVTfQ503q3xor4vvhnEun GT4oCeoTROoXLSoNJvnBRLlQnOsMWKVA0LGDJLq Y8xDXXyuSJBYEZtdUh3IFJPwid5= GROSS DESCRIPTION (test code = 3366) e3ykdLPeUEOsfKE1OiTjLNBmz3gvn3 BsdHBncGF jKXdubEDcjyClah63cSZ2mH31BW4fXCAvMiT3UX QxtuW0Vsd0YLOqEXMgnXAlA546c4eha3uschYdm EM4yPodTUUvHSHnRDjeHVYvLrVtVyLwZDd2OYMu EQusvAzkI3a9b1SwL3xpvpAiGECwvNW4aXVbNOL kvTKfTAqhzFYieKFvYRPpMSCfyMEjb0DaqxLvPL 3wQAAotZGhwW5iW3u6l8GulF6jjUMqrQ== MICROSCOPIC DESCRIPTION (test code = b0qasQBzTHEzaOG1HzAmGVXfz5wzu2 BsdHBncGF 3371) sBYgfgGAogcLrld00eSK6sX68RK8kYCCdQjS6WA WvssK7Xww5LIIaASNjkPJkC986i7xmh0doxbIyv JT0vEueHKFxDBGfEIscXXKrYqCdLRShZp4xdKLl LiBccGFyfQ== SPECIAL STUDIES (test code = 3376) u6kkaJVeVXKjiVY6RqOjTOYpd9kjl5Jq dHBncGF wMKjweIPgtkGktd03jOV3jH03YR9vXEDbLzE7QY BgqkY9Seg9XSIsUQJgyHGyR295TKMgHYOjbWnyn hl7zN78BKStsL0jsWFfNUf6HJStdvQkbZtpfD8s EdSkFzShJqAPvCFcoM46FNAjpsJ1QMRlv60oa6O kzQbysuKtRGLwALgaO1k2XYZqHLSmIJK4v8Uwh9 VbtK0boF9oyCglmF8smGRhwQJ1cvxyf9Fpt7BdH 2lhbCBzdGFpbnMuXHBhciBNdWNpbiBccGFyIENv vnFwf6gwZ0uaCUElINR4TG2bnlTkSqEfZQ3isI2 3n4Xcz30ut58adN9nbGZhacXwM77ctFBtaGBko8 NqIPXfcuAmnMI8ACTaRWfpqbfdm2w0nTO7fUWzs NDigBG4dRKmfLYeAIXHlGPkJPApc029pg3hDJNw kLOxwuPmhF9lTNguiesoeABxFG9wMGJhFCUmMNU gIZ31yeZmUZ9esSZge5aklmGjyTXvx9BhlAN7HF IsyEYlxhsfOm6xXO35LGQhSCqkdZ9abGMiyaFhS V6dLL9lI0Q6oVYcCPSoacCcz8cmFDmvIH2qSRJy iCwaZufpJTZaXRUqxfKudFS1TZShzEXjJFJsdTW sCSnntUUtx4vrx8BoF2vrpTyxpCD8NKBfH3wmkZ FuuUO5FGZ3uV0vSOyxplMtGKHxk3QcVKKxEJJsJ oT6xX8tISP4PmMIqPvoMUH1PfS3ICwtUYGmST6u UVdpOXvhS4UexAHxODXQINFgp4eyH1tnCWKdr3O dnG1biQP5eQAgIZEvjOY1AJMwUTM0HPfsxVNzVE HeZDTtfCUntRXcAw4vkRAeM1BrF0qwxkHgxTXlj HS4bCUuPPhmraPaPJN1MGRddD9zHG2tEZRaqKDy SI9gpINzUKNxOORfIPPoMPRaf7RvLKLbma17HUD xYhrlgDnaULSiOh4uAh9hNKHvgmJwRBM0SxAWCD 4ijughrKLjdWgijw5tVXvhUWZWHWUrLFPhXBD1W WNugE6mFMP0uSA3IMS7W8okU1ooOCXhmtEmST1x GSFbmWVdhsMyUFrqJS3lkGRkPTOoz2HttfpwTGA yXPI8MXX8HYbsPUZaADOqCc7rHCPcrD5iG5AfGQ G1zlVll4EmCqPAjSZxyI33jYNzkn42BQAdMCYlM 5OnYTJtOVBjRPgylnPzeDmrNDTnu81qiEJipzJm x5RluqTdQJJxF0anWGPscAZzlVXvp1IpdX8pcDZ bmzWtEPF4jZBvCNZpeE8jTNIfgGxyTNDieY4wI0 StDEfqSc4yDVOuayrrLW9zim96CX2bhrCcPU0ed xXeID76ksMbVpSfOWg8ERbUQFtRSYv5NSZcrrYh mWVohACqHVBmkI5syOLfCl5oeTDgvIqmXCDapOY fYXnvcYabM8sgbpcpABprvFYjv4AwaO3xrXQ0QW X8cG3kPskdDFG0 Gross assessment was performed at (test [facility] enter, code = 2777) Department of Pathology, [address] [place] [address], Technical component was performed at [facility] er, (test code = 2778) Department of Pathology, [address] [place] [address], Professional component was performed at [facility] enter, (test code = 2779) Department of Pathology, [address] [place] [address], [facility] 14:27:00Medical Cytology Report Case: [id number] Aut horizing Provider: Amor Muller MD Collected: 11/29/2020 02:08 PM Ordering Location: [facility] Endoscopy Received: 11/30/2020 02:52 PM Services Pathologist: Moises Aguilar MD Specimen: Pancreas, pancreas cyst PANCREAS CYST, HEAD,FNA (CYTOSPINS): - NEGATIVE FOR MALIGNANCY - The mucin stain shows weak and focal positivity Signing Pathologist Direct Phone Line: [phone] signed by Moises Aguilar MD on 12/01/2020 at 2:27 PMA few reactive ductal epithelial cells are noted within a larger population of completely normal and non- reactive ductal epithelial cells. 15277, 333572.5 cm x 1.8 cm anechoic lesion suggestive of cyst identified in the pancreatic headPANCREAS CYST, HEAD, FNAReceived 17 mlcytorich red fixative sample; prepared 4 cytospins and 1 mucin cytospinPerformed. The interpretationof this case included the use of immunohistochemistry or special stains.Mucin Control Slides Examined: In-house known positive controls were evaluated along with the test tissue. These control slidesrun alongside of the patients sample show appropriate staining. Internal positive and negative controls when available are evaluated Immunohistochemistry technical testing was performed at [facility], Pathology Laboratory where it was developed and its performance characteristicswere determined. It has not been cleared or approved by the U.S. Food and Drug Administration. The FDA has determined that such clearance or approval is not necessary. The test is used for clinical purposes. It should not be regarded as investigational or for research. This laboratory is certified under the Clinical Laboratory Improvement Amendments of 1988 (CLIA-88) as qualified to perform high complexity clinical laboratory testing.[facility], Department of Pathology, [address] [place] [address], [facility], Department of Patho logy, [address] [place] [address], [facility]iosviCentral [facility], Department of Pathology, [address] [place] [address], NGVGOZIR [id number] 16:01:00 Test Item Value Reference Range Interpretation Comments Cytology (test code = See Separate Report 2629) [facility] [id number] 16:01:00 Test Item Value Reference Range Interpretation Comments CYTOLOGY RESULT POINTER See Separate Report (NELSY) (test code = 2629) POC-Glucose [id number] 11:57:00 Test Item Value Reference Range Interpretation Comments POC-Glucose Meter (test 73 mg/dL 70-110 : TE STED AT [facility] code = 1538) [address] [facility], 770 30: Biomedical Analytical Scientist/Techni robbie ID = [id number] for HEIDI BARTLETT Lab Interpretation (test Normal code = 96650-5) [facility] DistrictPOCT-GLUCOSE [id number] 11:57:00 Test Item Value Reference Range Interpretation Comments POC-GLUCOSE METER 73 mg/dL 70-110 : TESTED A T [facility] 6720 (BEAKER) (test code = [facility], 1538) [address]: Biomedical Analytical Scientist/Techni robbie ID = [id number] for CARLTNO NEAL Large Joint Arthrocentesis: shoulder, R subacromial [id number] 14:10:00 Juan Antonio Fagan MD 09/28/2020 5:39 PMLarge Joint Arthrocentesis: shoulder, R subacromial bursaConsent given by: patientSite marked: site markedTimeout: Immediately prior to procedure a time out was called to verify the correct patient, procedure, equipment, residential direct support professional and site/side marked as required Supporting DocumentationIndications: pain Procedure DetailsPreparation: Patient was prepped and draped in the usual sterile fashionUltrasound guided: noLocation: shoulder - R subacromial bursa Right side:Needle size: 22 GApproach: posteriorRight shoulder medications administered: 5 mL lidocaine 10 mg/mL (1 %); 40 mg methylPREDNISolone acetate 40 mg/mLPatient tolerance: patient tolerated the procedure well with no immediate complicationsHounewton-wellesley hospital MethodistOR [place] < 1 [id number] 10:50:17Hm Interface, Radiology Results - 09/12/2020 10:53 AM CST EXAMINATION: OR FL < 1 HOURCLINICAL HISTORY: 85 years Female, painIMPRESSION:Fluoroscopy was provided. No radiologist present. 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 The right foramen is patent.There is no interval change.L4-5: Posterior laminectomy. There is diffuse disc bulge with bilateral a dvanced facet arthropathy ligamentous hypertrophy. There are thin [...] There is no canal stenosis. The lateral recessesare patent. There are severe bilateral spondylotic foraminal narrowing with potential compromise of t he exiting bilateral L5 nerve root unchanged from prior study.Visualized paraspinal soft tissues areunremarkable.IMPRESSION:Posterior laminectomy at L4- L5 level as detailed above with expected postsurgical changes and no residual canal stenosis or significant foraminal narrowing. There are bilateral facet joint synovial cysts which have developed since the prior study with no associated significant canal stenosis or lateral recess narrowing.Stable spondylotic changes at L5-S1 level with spondyloticsevere bilateral foraminal narrowing and potential mass effect on the exiting bilateral L5 nerve root s.[id number] MethodistLarge Joint Arthrocentesis: shoulder, R subacromial [id number] 13:10:00Juan Antonio Fagan MD 05/08/2020 4:57 PMLarge Joint Arthrocentesis: shoulder, R subacromial bursaConsent given by: patientSite marked: site markedTimeout: Immediately prior to procedure a time outwas called to verify the correct patient, procedure, equipment, residential direct support professional and site/side marked as required Supporting DocumentationIndications: pain Procedure DetailsPreparation: Patient was prepped and draped in the usual sterile fashionUltrasound guided: noLocation: shoulder - R subacromial bursa Right side:Needle size: 22 GApproach: posteriorRight shoulder medications administered: 5 mL lidocaine 10 mg/mL (1 %); 40 mg methylPREDNISolone acetate 40 mg/mLPatient tolerance: patient tolerated theprocedure well with no immediate complicationsRas Goyal [id number] 10:30:31 Test Item Value Reference Range Interpretation Comments Urine culture (test SEE COMMENT Bacteriu bishop screen code = 3969765) negative. Ras MethodistUrinalysis screen and microscopy, with reflex to culture 2020-04-19 10:30:30 Test Item Value Reference Range Interpretation Comments Specimen site (test Catheterized code = 5619021) Color, UA (test code = Yellow 5778-6) Appearance, UA (test Clear code = 5767-9) Specific gravity, UA 1.017 1.001-1.030 (test code = 5811-5) pH, UA (test code = 7.0 5.0-9.0 5803-2) Protein, UA (test code Negative Negative = 73830-0) Glucose, UA (test code Negative Negative = 32294-9) Ketones, UA (test code 1+ Negative A = 2514-8) Bilirubin, UA (test Negative Negative code = 5770-3) Blood, UA (test code = Negative Negative 5794-3) Nitrite, UA (test code Negative Negative = 5802-4) Urobilinogen, UA (test 2.0 See_Comment A [Aut omated code = 88232-1) message] The system which generated this result transmitted reference range : <2.0 E.U./dL. T he reference range was not used to interpret this result as normal/abnormal . Leukocyte esterase, UA Negative Negative (test code = 5799-2) Epithelial cells, UA <1 See_Comment [Autom ated (test code = 5787-7) message ] The system which generated this result transmitted reference range : /HPF. The refer ence range was not u sed to interpret th is result as normal/abnormal . Round epithelial <1 See_Comment [Automated cells, UA (test code = messa ge] The system 45524-2) which generated this result transmitted reference range : 0 - 5 /HPF. The reference range was not used to interpret this result as normal/abnormal . WBC, UA (test code = 1 See_Comment [Autom ated 5821-4) message] The sy stem which generated this result transmitted reference range : 0 - 4 /HPF. The reference range was not used to interpret this result as normal/abnormal . RBC, UA (test code = 1 See_Comment [Autom ated 94644-6) message] The sy stem which generated this result transmitted reference range : 0 - 5 /HPF. The reference range was not used to interpret this result as normal/abnormal . Bacteria, UA (test Few None seen code = 87423-1) Yeast, UA (test code = None seen 13287-5) Yeast with None seen pseudohyphae, UA (test code = 41586-2) Lab Interpretation Abnormal (test code = 08337-5) Mcginnis [id number] 09:17:55Shanice Quintana MD 04/19/2020 9:18 AMAirwayDate/Time: 04/19/2020 [...] Yes Number of Attempts at Approach: 1[facility] MethodistComprehensive metabolic [id number] 13:25:00 Test Item Value Reference Interpretation Comments Range Glucose (test code 112 mg/dL 65-99 H Fasting = 2345-7) reference inter di For someone wit hout known diabetes, a glucose valuebe tween 100 and 125 mg/ dL is consistent withprediabetes and should be confi rmed with afollow-up test. BUN (test code = 16 mg/dL 05-12 3094-0) Creatinine (test 1.03 mg/dL 0.60-0.88 H For patient s >49 code = 2160-0) years of age, the reference limit for Creatinine is approximately 1 3% higher for peopleidentifie d as -Jennyfer n. EGFR Non-Afr. 49 See_Comment L [Automated me ssage] Micronesian (test code The syst which = 4835) generated this result transmit roxanna reference range : > OR = 60 mL/min/1.73m2. The reference range was not used to interpret this result as normal/abnormal . EGFR 57 See_Comment L [Automated mes dinah] Micronesian (test code The syst which = 59202-1) generated this result transmit roxanna reference range : > OR = 60 mL/min/1.73m2. The reference range was not used to interpret this result as normal/abnormal . BUN/creatinine 16 See_Comment [Automated m essage] ratio (test code = The [facility] which 3097-3) generated this result transmit roxanna reference range : 6 - 22 (calc). The reference range was not used to interpret this result as normal/abnormal . Sodium (test code = 136 mmol/L 505-851 0377-2) Potassium (test 4.8 mmol/L 3.5-5.3 code = 2823-3) Chloride (test code 99 mmol/L 98-110 = 2075-0) CO2 (test code = 29 mmol/L 20-32 2027-9) Calcium (test code 9.7 mg/dL 8.6-10.4 = 11900-4) Protein (test code 6.1 g/dL 6.1-8.1 = 2885-2) Albumin, S (test 3.6 g/dL 3.6-5.1 code = 1751-7) Globulin, total 2.5 See_Comment [Automated message] (test code = The system [facility] h 10933-6) generated this result transmit roxanna reference range : 1.9 - 3.7 g/dL (eduar c). The reference r cheyanne was not used to interpret this result as normal/abnormal . Albumin/globulin 1.4 See_Comment [Automated message] ratio (test code = The [facility] which 1759-0) generated this result transmit roxanna reference range : 1.0 - 2.5 (calc). T he reference range was not used to interpret this result as normal/abnormal . Total bilirubin 0.4 mg/dL 0.2-1.2 (test code = 1974-2) Alkaline 34 U/L 37-153 L phosphatase (test code = 6768-6) AST (test code = 16 U/L 10-35 1920-8) ALT (test code = 13 U/L 6-29 1742-6) RAC (test code = Performing RAC) Organization Information: Site ID: MORIS [facility] Address: [address] [place] [phone] Director: Gaston Ball Lab Interpretation Abnormal (test code = 20640-6) [place] MethodistProthrombin time with [id number] 13:25:00 Test Item Value Reference Range Interpretation Comments INR (test code = 1.0 Reference R cheyanne 6301-6) 0.9-1.1Moderate -i ntensity Warfar in Therapy 2.0-3.0Higher-i nt ensity Warfarin Therapy 3.0-4 .0 Prothrombin time 10.6 See_Comment For more (test code = information on 590-2) this test, go to:http://[employer] ti onRxAnte/faq/FAQ1 04 [Automated message] The system which generated this result transmitted reference range : 9.0 - 11.5 sec. The reference range was not used to interpr et this result as normal/abnormal . RAC (test code = Performing RAC) Organization Information: Site ID: MORIS [facility]: [facility] Address: [address] [place] [phone] Director: Gaston Ball [place] MethodistPartial thromboplastin time, [id number] 13:25:00 Test Item Value Reference Interpretation Comments Range PTT (test 23 See_Comment This test has not been [place] = [place] [address]-8) monitoringunfra ctionated heparin therapy . For testing thatis validate d for this type of therapy , please referto the Hep jennifer Anti-Xa assay (test cod e 37438). For additional info rmation, please refer tohttp://educat ionWordy/faq/ USC654(This link is being p rovided for informational/e ducational purposes only.) [Automated message] The sy stem which generated this result transmitted ref erence range: 22 - 34 sec. Th e reference range was not u sed to interpret this result as normal/abnormal . RAC (test Performing code = Organization RAC) Information: Site ID: MORIS Name: [facility] Address: [address] [place] [phone] Director: Gaston Mcginnis MethodistURINALYSIS, COMPLETE, WITH REFLEX TO [id number] 13:25:00 Test Item Value Reference Range Interpretation Comments Color, UA (test code YELLOW YELLOW = 5778-6) Appearance (test CLOUDY CLEAR A code = 5767-9) Specific gravity, 1.016 1.001-1.035 urine (test code = 5811-5) pH, urine (test code < OR = 5.0 5.0-8.0 = 5803-2) Glucose, urine (test NEGATIVE NEGATIVE code = 55373-5) Bilirubin, UA (test NEGATIVE NEGATIVE code = 5770-3) Ketones, UA (test NEGATIVE NEGATIVE code = 2514-8) Occult blood, urine NEGATIVE NEGATIVE (test code = 5794-3) Protein, UA (test NEGATIVE NEGATIVE code = 16924-5) Nitrite, UA (test POSITIVE NEGATIVE A code = 5802-4) Leukocyte esterase, 2+ NEGATIVE A UA (test code = 5799-2) WBC, UA (test code = 40-60 See_Comment A [Autom ated 5821-4) message] The system which generated this result transmitted reference range : < OR = 5 /HPF. The reference range was not used to interpr et this result as normal/abnormal . RBC, UA (test code = NONE SEEN See_Comment [Autom ated 43471-2) message] The system which generated this result transmitted reference range : < OR = 2 /HPF. The reference range was not used to interpr et this result as normal/abnormal . Squamous epithelial 0-5 See_Comment [Automa roxanna cells, UA (test code message ] The = 23136-6) system which generated this result transmitted reference range : < OR = 5 /HPF. The reference range was not used to interpr et this result as normal/abnormal . Bacteria, UA (test MANY NONE SEEN /HPF A code = 5769-5) Calcium oxalate FEW NONE OR FEW crystals, UA (test /HPF code = 14168-7) Hyaline casts, UA NONE SEEN NONE SEEN /LPF (test code = 5796-8) Reflex (test code = CULTURE INDICATED 630-4) - RESULTS TO FOLLOW RAC (test code = Performing RAC) Organization Information: Site ID: RGA Name: [facility] Lab Address: [address] [place] [address] Director: Gaston Ball Lab Interpretation Abnormal (test code = 49857-5) [place] MethodistECG Pre/Post [id number] 19:11:35 Test Item Value Reference Range Interpretation Comments Ventricular rate (test 74 code = 253) Atrial rate (test code 74 = 255) IA interval (test code 140 = 266) QRSD [...] wave abnormality now evident in Lateral leads- [place] [facility] Chest 2 [id number] 14:04:38Hm Interface, Radiology Results Incoming - 02/24/2020 2:07 PM CDT EXAMINATION: XR CHEST 2 VWCLINICAL HISTORY: Z01.818 Encounter for other preprocedural examination, PRE OPCOMPARISON: Single view chest from 03/09/2017IMPRESSION:PA and lateral radiographs of the chest was submitted for interpretation.The lungs are clear. No focal consolidation or pleural effusion. No pneumothorax or midline shift. Again noted is nonspecific elevation of the right hemidiaphragm.The mediastinal contours and cardiac silhouette are unchanged and unremarkable.The bones are unremarkable. [facility]-[id number] Mormon
--- NOTE | 2021-02-10 22:30 | ER ---
Nurse's Notes [facility] Name: Caridad Chadwick Age: 85 yrs Sex: Female : 1935 Arrival Date: 02/10/2021 Time: 18:24 Bed Waiting Private MD: Diagnosis: Presentation: 02/10 18:32 Chief complaint: Patient states: L earache for 3 days. Swelling and pain to L side of ll1 face around L eye and restoration area for 1 day. No fever. Just finished antibiotics for C diff. Coronavirus screen: Client denies travel out of the [place] in the last 14 days. At this time, the client does not indicate any symptoms associated with coronavirus-19. Ebola Screen: Patient denies travel to an Ebola-affected area in the 21 days before illness onset. Initial Sepsis Screen: Does the patient meet any 2 criteria? No. Patient's initial sepsis screen is negative. Does the patient have a suspected source of infection? Yes: Skin breakdown/wound. Risk Assessment: Do you want to hurt yourself or someone else? Patient reports no desire to harm self or others. Onset of symptoms was February 08, 2021. 18:32 Method Of Arrival: EMS: [facility] ll1 18:32 Acuity: ZOIE 3 ll1 22:29 Note notified by registration pt and spouse left the ED. bb Historical: - Allergies: 18:35 Codeine; ll1 - PMHx: 18:35 Hypertension; GERD; Diverticulitis; Diabetes - NIDDM; C DIFF; Hypothyroidism; ll1 Rheumatoid Arthritis; cyst on pancreas; - PSHx: 18:35 left foot; knee sx; Bladder suspension; ll1 - Immunization history:: Flu vaccine is up to date. Client reports receiving the 2nd dose of the Covid vaccine. - Social history:: Smoking status: Patient denies any tobacco usage or history of. Vital Signs: 18:32 BP 117 / 70; Pulse 89; Resp 16; Temp 97.1; Pulse Ox 98% ; Weight 60.78 kg; Height 5 ft. ll1 1 in. (154.94 cm); Pain 7/10; 18:32 Body Mass Index 25.32 (60.78 kg, 154.94 cm) ll1 ED Course: 18:24 Patient arrived in ED. ds1 18:34 Triage completed. ll1 18:35 Arm band placed on. ll1 22:30 Patient's name was called from ER lobby. No response. Unable to locate patient. Will bb disposition as left without being seen by a provider. Administered Medications: No medications were administered Outcome: 22:30 Patient left the ED. bb Signatures: Joan Hall ds1 Jojo Carter RN RN bb Andrea Narvaez RN RN ll1
[2021-02-10 22:38] VITALS: BP 117/70; TEMP 97.1; O2SAT 98
== END 2021-02-10 22:30 | disposition left against medical advice (07) ==
LOC: ER 18:06
DX: Z53.21 Procedure and treatment not carried out due to patient leaving prior to being seen by health care provider (principal)
CPT/HCPCS: 99282

== ENCOUNTER 2021-02-14 04:37 | Inpatient (IN) | payer OTHER ==
--- OUTSIDE RECORDS SUMMARY | 2021-02-14 04:40 | XMS REPORT | Continuity of Care Document ---
:1935 Author Organization [facility] t Address [address] [place] [address] Care Team Providers Name Role Phone Irish Primary Care Physician Renzo DELANEY Attending Clinician RENZO Attending Clinician Unavailable Elin Moran MD Attending Clinician Blanquita Joseph Attending Clinician Donna DELANEY, BAngi Attending Clinician Mike Fagan MD Attending Clinician Sy Thorpe MD Attending Clinician [phone] Avery Heard MD Attending Clinician Francisco [...] Effective Date Expiration Date Sour ce Number [facility] [id number] 2020 [place] - - MEDICARE MGD 00:00:00 Medical Ce nter CAREUNITED MEDICARE [id number] 021-Present UHC MEDICAREUHC [id number] 2020 [place] [facility] MEDICARE 00:00:00 [facility] [id number] 021-PresentPPO Problems Condition Condition Condition Status Onset Resolution Last Treating Co mments Source Name Details Category Date Date Treatment Clinician Date Hyperlipid Hyperlipid Disease Active [facility] emia emia -02 Methodi 00:00: st 00 DM DM Disease Active [facility] (diabetes (diabetes 04-19 Meth vivek mellitus) mellitus) 00:00: st 00 UTI UTI Disease Active [facility] (urinary (urinary 04-19 Method i tract tract 00:00: st infection) infection) 00 Spondyloli Spondyloli Disease Active Overview : [facility] sthesis at sthesis at 2-12 Formattin Methodi L4-L5 L4-L5 00:00: g of this st level level 00 note might be different from the original. Added automatic ally from request for surgery [id number] Spondyloli Spondyloli Disease Active Overview : [facility] sthesis at sthesis at 2-12 Formattin Methodi L5-S1 L5-S1 00:00: g of this st level level 00 note might be different from the original. Added automatic ally from request for surgery [id number] Trochanter Trochanter Disease Active Overview : [facility] ic ic 2-12 Formattin Methodi bursitis bursitis 00:00: g of this st of right of right 00 note hip hip might be different from the original. Added automatic ally from request for surgery [id number] Diverticul Diverticul Disease Active [facility] itis itis 5-20 Methodi 00:00: st 00 Abscess of Abscess of Disease Active [facility] sigmoid sigmoid 5-07 Methodi colon colon 00:00: st 00 Other Other Disease Active [facility] spondylosi spondylosi 4-10 Me thodi s with [...] 00:00: st 00 S/P S/P Disease Active [facility] [place]ANIA-BSO AL[place]ANIA-BSO 04-03 Methodi 00:00: st 00 [...] Stop Date Source Natural brother Diabetes Ras Nnuo ethodist Natural father Lung cancer Ras Nuno ethodist Natural mother Old age Ras Me thodist Social History Social Habit Start Date Stop Date Quantity Comments Source Tobacco use and 2020-09-17 2020-09-17 Never used Ras Nuno ethodist exposure 00:00:00 00:00:00 Alcohol intake 2020-09-17 2020-09-17 Current drinker [place] [facility] 00:00:00 00:00:00 of alcohol (finding) Alcohol Comment 2019-10-31 2019-10-31 1-2 times a year [facility] 00:00:00 00:00:00 Sex Ass[birth year] At [birth year] [...] 40 MG 16:50: daily. Medical tablet 20 [place] leflunomide Yes 10mg QD Take [address] [facility] (ARAVA) 10 2-11 by [facility] - MG tablet 16:50: daily. Medica l 20 [place] rosuvastati Yes 5mg QD Take [address] [facility] (CRESTOR) 2-11 by mouth Luke s - 5 MG tablet 16:50: daily. Medi eduar 20 [place] omeprazole Yes 20mg QD Take [address] (PriLOSEC) 2-11 by [facility] - 20 MG 16:50: daily. Medical capsule 20 [place] cyanocobala Yes 100ug QD Take [address] min, 2-11 mcg by [facility] - vitamin 16:50: mouth Medical B-12, 100 20 daily. [place] MCG tablet ferrous Yes 325mg Take 325 [facility] sulfate 325 2-11 mg [facility] - (65 FE) MG 16:50: mouth Medica l tablet 20 daily with [place] breakfast. spironolact 2020- No 25mg QD Take [address] [facility] one 2-08 02-08 by [facility] - (ALDACTONE) 11:57: 00:00 daily. Med ical 25 MG 49 :00 [place] tablet estradiol 2020- No .5mg QD Take 0.[address] [facility] (ESTRACE) 2-08 02-08 mg by [facility] - 0.5 MG 11:56: 00:00 mouth Medical tablet 09 :00 daily. [place] hydrOXYchlo Yes QD Take by Ray simpson [...] n (ULTRAM) 50 0-08 10-28 TABLET BY Md thodi mg tablet 00:00: 23:[address] [...] a day methocarbam 2019- 2020- No 750mg [id number] Take 1 Mcginnis oL 04-23 [id number] tablet Method i (Robaxin-75 00:00: 00:00 3D [...] [facility] - pressure 15:17:00 DR[facility]GUITTEREZ JEAN [facility] er Diastolic blood 2020-11-29 70 mm[Hg] [facility] - pressure 15:17:00 DR.GUITTEREZ JEAN [facility] er Heart rate 2020-11-29 62 /min [facility] - 15[facility]17:00 [facility] Body temperature 2020-11-29 36.44 Blanca [facility] - 15:17:00 [facility] Respiratory rate 2020-11-29 16 /min [facility] - 15:17:00 [facility] Oxygen saturation 2020-11-29 95 /min [facility] St Javed es - in Arterial blood 15:17:00 [facility] nter by Pulse oximetry Body height 2020-11-29 156.2 [address] [facility] - 11:27:00 [facility] Body weight 2020-11-29 60.555 kg [facility] - 11:27:00 [facility] BMI 2020-11-29 24.82 kg/m2 [facility] - 11:27:00 [facility] Systolic blood 2020-09-12 135 mm[Hg] [facility] pressure 11:30:00 [facility] Diastolic blood 2020-09-12 63 mm[Hg] [facility] pressure 11:30:00 [facility] Heart rate 2020-09-12 66 /min [facility] 11:30:00 [facility] Respiratory rate 2020-09-12 16 /min [facility] 11:30:00 [facility] Oxygen saturation 2020-09-12 98 /min [facility] in Arterial blood 11:30:00 [facility] by Pulse oximetry Body temperature 2020-09-12 36.67 Blanca [facility] 10:45:00 [facility] Body height 2020-06-05 154.9 cm [facility] 13:10:00 [facility] Body weight 2020-06-05 66.225 kg [facility] 13:10:00 [facility] BMI 2020-06-05 27.59 kg/m2 [facility] 13:10:00 [facility] Procedures Procedure Date / Time Performing Clinician Source Performed REPORT OF PROCEDURE - 2020-11-29 14:12:[address] [facility] - ENDOSCOPY [facility] CYTOLOGY REQUEST 2020-11-29 14:08:18 Amor Muller [facility] CYTOLOGY 2020-11-29 14:08:00 Amor Muller [facility] UPPER ENDOSCOPY,FNA 2020-11-29 13:50:00 Amor Muller [facility] u[facility] - [facility] POCT-GLUCOSE METER 2020-11-29 11:45:00 Aomr Muller [facility] MT ARTHROCENTESIS 2020-09-28 14:10:00 Juan Antonio Fagan [facility] ASPIR&/INJ MAJOR JT/BURSA W/O US OR [place] < 1 HOUR 2020-09-12 10:47:06 Jeovanny Thorpe ethodist Sy Pike INJECTION, STEROID, 2020-09-12 10:24:00 Jeovanny Thorpe on [facility] SPINE, LUMBAR, EPIDURAL, Sy Pike SINGLE MRI LUMBAR SPINE W WO 2020-07-24 15:04:31 Sonny Guaman [facility] CONTRAST ESTIMATED GFR 2020-07-24 14:03:00 Sonny Guaman [facility] POC CREATININE 2020-07-24 14:03:00 Sonny Guaman [facility] XR KNEE 4+ VW BILATERAL 2020-06-05 13:19:37 Malcolm Renee [facility] MT ARTHROCENTESIS 2020-05-08 13:10:00 Juan Antonio Faganist ASPIR&/INJ MAJOR JT/BURSA W/O US BASIC METABOLIC PANEL 2020-04-20 06:30:00 Soo Nava HC COMPLETE BLD COUNT 2020-04-20 06:30:00 Soo Nava [facility] W/AUTO DIFF ESTIMATED GFR 2020-04-20 06:30:00 Soo Nava Me thodist POC GLUCOSE 2020-04-19 11:40:00 Syeda Fitzgerald ethodist [place] < 1 HOUR 2020-04-19 10:50:00 Sonny Guaman [facility] URINE CULTURE 2020-04-19 09:23:00 Sonny Guaman [facility] URINALYSIS SCREEN AND 2020-04-19 09:23:00 Sonny Guaman [facility] MICROSCOPY, WITH REFLEX TO CULTURE MT AN ELECTIVE 2020-04-19 09:17:55 Shanice Quintana ethodist ENDOTRACHEAL AIRWAY LAMINOTOMY, LUMBAR 2020-04-19 08:59:00 Sonny Guaman [facility] POC GLUCOSE 2020-04-19 08:28:00 Sonny Guaman [facility] POC GLUCOSE 2020-04-19 08:26:00 Sonny Guaman [facility] POC GLUCOSE 2020-04-19 08:25:00 Sonny Guaman [facility] URINE CULTURE 2020-04-19 07:54:00 Sonny Guaman [facility] URINALYSIS SCREEN AND 2020-04-19 07:30:00 Sonny Guaman [facility] MICROSCOPY, WITH REFLEX TO CULTURE URINE CULTURE 2020-04-16 13:13:00 Sonny Guaman [facility] URINALYSIS SCREEN AND 2020-04-16 12:17:00 Sonny [facility] MICROSCOPY, WITH REFLEX TO CULTURE HC COMPLETE BLD COUNT 2020-04-16 12:05:00 Magy Bashir [facility] W/AUTO DIFF TYPE AND SCREEN 2020-04-16 12:05:00 Magy Bashir [facility] HEMOGLOBIN A1C 2020-04-16 12:05:00 Magy Bashir [facility] COVID-19 QUALITATIVE PCR 2020-04-16 11:30:00 Magy Bashir [facility] COVID-19 QUALITATIVE PCR 2020-04-05 13:02:00 Magy Bashir [facility] URINE CULTURE 2020-04-03 14:17:00 Horacio Vernon ethodi COMPREHENSIVE METABOLIC 2020-04-03 14:17:00 Horacio Vernon [facility] PANEL PARTIAL THROMBOPLASTIN 2020-04-03 14:17:00 Horacio Vernon [facility] TIME (PTT) URINALYSIS, COMPLETE, 2020-04-03 14:17:00 Horacio Vernon [facility] WITH REFLEX TO CULTURE PROTHROMBIN TIME WITH INR 2020-04-03 14:17:00 Horacio Vernon CBC WITH PLATELET AND 2020-04-03 14:17:00 Horacio Vernon DIFFERENTIAL XR CHEST 2 VW 2020-02-24 14:03:25 Sonny Guaman Met hodjadyn COVID-19 QUALITATIVE PCR 2020-02-24 13:15:00 Magy Bashir [place] [facility] ECG PRE/POST OP 2020-02-24 13:04:59 Sonny Guaman [facility] HC COMPLETE BLD COUNT 2020-02-24 12:48:00 Sonny Guaman [facility] W/AUTO DIFF COMPREHENSIVE METABOLIC 2020-02-24 12:48:00 Sonny Guaman PANEL PARTIAL THROMBOPLASTIN 2020-02-24 12:48:00 Sonny Guaman [facility] TIME (PTT) PROTHROMBIN TIME WITH INR 2020-02-24 12:48:00 Sonny Guaman [place] [facility] TYPE AND SCREEN 2020-02-24 12:48:00 Magy Bashir Met adrián HEMOGLOBIN A1C 2020-02-24 12:48:00 Magy Bashir Met [facility]ist ESTIMATED GFR 2020-02-24 12:48:00 Sonny Guaman Met adrián Plan of Care Planned Activity Planned Date Details Comments Source Future Scheduled 2021-05-19 INFLUENZA VACCINE Atiya bill [facility] Test 00:00:00 [code = INFLUENZA VACCINE] Future [...] 00:00:00 (1 of 1 - Medical Center [id number] PCV13) [code = PNEUMOCOCCAL 65+ YRS (1 of 1 - [id number] PCV13)] Future Scheduled 1983 SHINGLES VACCINES ([address] [facility] - Test 00:00:00 of 2) [code = SHINGLES Medic al Center VACCINES (1 of 2)] Future Scheduled 1983 SHINGLES VACCINES (#1) H humaira [facility] Test 00:00:00 [code = SHINGLES VACCINES (#1)] Future Scheduled 1952 DTAP/TDAP/TD VACCINES [facility] Test 00:00:00 (1 - Tdap) [code = Medical C enter DTAP/TDAP/TD VACCINES (1 - Tdap)] Future Scheduled 1949 COVID-19 VACCINE (1) Ray[place] simpson [facility] Test 00:00:00 [code = COVID-19 VACCINE (1)] Future Scheduled 1943 DIABETES: RETINAL EYE [place] [facility] Test 00:00:00 EXAM [code = DIABETES: RETINAL EYE EXAM] Future Scheduled 1943 DIABETIC FOOT EXAM [place] [facility] Test 00:00:00 [code = DIABETIC FOOT EXAM] Future Scheduled 1943 URINE MICROALBUMIN [place] [facility] Test 00:00:00 [code = URINE MICROALBUMIN] Future Scheduled 1939 65+ PNEUMOCOCCAL [facility] Test 00:00:00 VACCINE (1 of 2 - PPSV23) [code = 65+ PNEUMOCOCCAL VACCINE (1 of 2 - PPSV23)] Encounters Start End Encounter Admission Attending Care Care Encounter Source Date/Time Date/Time Type Type Clinicians Facility Department ID 2020-10-23 2020-10-23 [facility] [id number] [facility] 00:00:00 00:00:00 SONNY 490 Method i 2020-09-28 2020-09-28 [facility] [id number] [facility] 00:00:00 00:00:00 JUAN ANTONIO [address] 2020-09-12 2020-09-12 [facility] [id number] Ide[facility] 00:00:00 00:00:00 MANDAEN [address] 2020-08-17 2020-08-17 [facility] [id number] Ideal 00:00:00 00:00:00 SONNY [address] 2020-07-24 2020-07-24 [facility] [id number] Ideal 00:00:00 00:00:00 SONNY [address] 2020-07-02 2020-07-02 Outpatient WOOD, [facility] [id number] Ideal 00:00:00 00:00:00 SONNY [address] 2020-06-05 2020-06-05 Outpatient MAFFET, [facility] [id number] Ideal 00:00:00 00:00:00 MALCOLM [address] 2020-06-05 2020-06-05 Outpatient MAFFET, [facility] [id number] Ideal 00:00:00 00:00:00 MALCOLM [address] 2020-05-30 2020-05-30 Outpatient WOOD, [facility] [id number] Ideal 00:00:00 00:00:00 SONNY 972 Method i 2020-05-08 2020-05-08 Outpatient FAGAN, [facility] [id number] Ideal 00:00:00 00:00:00 JUAN ANTONIO 550 Method i 2020-05-02 2020-05-02 Outpatient RADLEY, [facility] [id number] Ideal 00:00:00 00:00:00 LEÓN [address] 2020-04-19 2020-04-20 Outpatient JOGLEKAR, [facility] 021 [id number] Ideal 00:00:00 00:00:00 SYEDA [address] 2020-04-16 2020-04-16 Outpatient WOOD, [facility] [id number] Ideal 00:00:00 00:00:00 SONNY [address] 2020-04-05 2020-04-05 Outpatient WOOD, [facility] [id number] Ideal 00:00:00 00:00:00 SONNY [address] 2020-02-24 2020-02-24 Outpatient WOOD, [facility] [id number] Ideal 00:00:00 00:00:00 SONNY [address] 2020-02-24 2020-02-24 Outpatient WOOD, [facility] [id number] Ideal 00:00:00 00:00:00 SONNY [address] 2020-02-24 2020-02-24 Outpatient WOOD, [facility] [id number] Ideal 00:00:00 00:00:00 SONNY [address] 2020-02-24 2020-02-24 Outpatient WOOD, [facility] [id number] Ideal 00:00:00 00:00:00 SONNY [address] 2019-11-02 2019-11-02 Outpatient PECCO, [facility] 021 [id number] Ideal 00:00:00 00:00:00 MANDAEN [address] 2019-09-22 2019-09-22 Outpatient LIDYACO, [facility] 021 [id number] Ideal 00:00:00 00:00:00 MANDAEN [address] 2019-07-28 2019-07-28 Outpatient PECCO, [facility] 021 [id number] Ideal 00:00:00 00:00:00 MANDAEN [address] Results Test Description Test Time Test Comments Results Result Comments Source Cytology 2020-12-01 14:27:00 Test Item Value Reference Range Interpretation Comme nts Case Report (test code = 104) Medical Cytology Report Case: [id number] Authorizing Provider: Amor Muller MD Collected: 11/29/2020 02:08 PM Ordering Location: [facility] Endoscopy Received: 11/30/2020 02:52 PM Services Pathologist: Moises Aguilar MD Specimen: Pancreas, pancreas cyst DIAGNOSIS (test code = 3220) b6yjjMQkZIXrw2anROCrsBLbFzUeIqWeUzWaEw p cdWMxIHtccnRmMVxlcGljOTIwMFxhbnNpXHNwbH YvW2XtzvhlKMmxKA9jAW1jcEbsfVWiuUVvAZIaD xYif9qjz976zDWuz1unXEAXwujawNo9eQveT87u v6X9MtsgI98loJPoQAfjzXBjnqrypkCaYJKLAeM HRPULKUVMC7LiQXuZLIWyZSEXYEIaW2kRF9ITYP 4VEFsopHNcGVQaLR0tAcujGWACO4KKNHNUBPMPH uYNRVxZX36EUuBAYRNfhxyjIZBeKJYpAFKxQJOh aFKygkRzwRNzxzZpwE49ocC4CMNxCOLcYFEow5E ztVDye0HejPe7rIT4HUVwpt77WWA7QvFpn6N0JT W9YAIrGYKku5ggZRMeiDUzOwDzZiRxApPjNnrsw JBcZGSfBkTia8hty862pGWox1leAFGvVmM0nUBz EFRuiHJjV231PXCuQXqqa9fyj9HuQNYysMInf0X 7TFCOkqgcgFn7fVqkC42rg5Y6QnoeN1joTJKhXF TeO1YqDN7hROAtHgp0HEQ1AKG1DTDgGAVnH4FlQ I9aECVkxLVpVWu5l0ulyEsmTQXqEDE6f7quFZla ueXjRZ1aqa9fvIs1v1pebbUgRENhXSBxyYSHLHN jQ6KrkNvsKl0ewQv8nWwaWlebRGS0Soz3EV8kvt 43vde2vWfeIERwolltFhM1DAfqGCAwymdxENy8N HayJAAhxGV0QMHhoXWmO1RuRBUjNW2kmrh5PGK1 UGabLVIrYmM4ONNebHXnMZTreHciXCrlw641SHN 0MyDbJB9pQ0Cvd0V3xN7riSOiUSCnbXJtYxWvAN Rfqp8euNEbPTivr7CmZRV8dgC4rLZuoOVjBEJoB xR1QRogYO8alw81HAHsDSO8dp1fjXXqcCqdfqMq iBNuDYbdN6QdBDCqy811GSXbZ9BjVKCby2Y9qyS hMdLfVHOwoRE7tqI4BQDlXP8zpldcu2meAOzuRD vwCBYiwsD3dkU5HGEzbMZgB2IhvL4xNXCzQB0os ylyw4baGFB3NTbsZCWrQJS2PlNxJLXdf2Ztnwm8 JkFdw6QyeMRhCNdxF83pb100ZIHdosSeS7mfcIH mlavohOZserklXCulbjS2OYJpUYzksustFWQdPH dfZ8lcJtHgPBZbrOnyKAwte0FaLFYeUALhPfDgw UBpCRCbYft6LZZvgVKtYOZpNyFdS2cfjetdHsOL OLCcu0nmT4vwiQUHmWPbA0HoGGbxzwWaGQlkGIh nUPRbWVL5SI2zOOLaWKOwrj44 COMMENT (test code = 3352) i4fnfSSbLNJjuRM3GsToVREnh1hwi1ZmqGKerER eKPfwdGZhdaXnit15gJB8dY75TU3wMWIbYeV8UJ AaukS8Ftm3SKOnKEXknIKzQ062g5gxg3hhcbCxd TJ7qAfwFUOvLRRwRNmiUURqNsWpWBJgVTjyndQx G7CuwuRsZAVipYJvGDYifLQjPJfaRDcbZ2HtcZL nMHUiUK2fdIJjTZsklHuzkzTtHPkbppfoayWtb9 B7rTY4gZ3dJL7jBFPotFLbZCChjUrydv5hxPXmL DYhgdOejc4wCTZdVQR4gSPsFZH4T2AmoYDnnOs2 aGVsaWFsIGNlbGxzLiBccGFyfQ== CPT Code(s) (test code = 9378) n1lcpAEqZSZndZU7CwWkMOGmc6snp0BijINe cGF uPBylaWLmubSkrd17rVN8nS90KA9kETZuAzI1KR MllaC1Zjf3UXVwRVHruPNoP061z9znn1ahccXvf OQ3dZzgAXTjZFKtFOqpHZJmErPdSAmyVLzfVJb1 MzEzXHBhcn0= CLINICAL DATA (test code = 0209) o8telYUvWWGhlUC2VyJeWZIhf4vif8EyqG BncGF gINkdjHAmyaEthg90eXO6hP19BW7lQTKpLtR3HP MmoxD7Gkr1OSXyVVXbcTPhI981e0uul8ktzkDsk MV0cNneFGTrERIwDHbtXSMsHpCuEi55JNJoSLkw IE59XVJrZCSlJQIdk2wkCCeow4afuvDwcDitCID 0zJVsZF5iKVK0q3YzkZMdlqTaPnrxRLBkgnW1mX OtvOFpH1ZlFEMjIeJvFEMuZVVmge3= SPECIMEN SOURCE (test code = 3377) e6xgiNOtHIFacJT4OkWrKXDng1wlb9Xb dHBncGF gKFtyaMGjwnNqyx98qMX1bP71RM4rEBStPhA1RL RcuvC3Mmg4VDApZZIxrWWsY489f2ucj1ppprLce ZS2cTfnLSNpRIDdFUzdAIEeHfGaGEVAK2QCNSVi U1rFUKlkBGXLTSezPa5GXLUquf2= GROSS DESCRIPTION (test code = 3366) o1jvoLUuWBUyrRM3RoNqSMKxo8hbw2 BsdHBncGF oLMsqmLJhugLkqp75qBX7zN36EA6sBNXiOyC5CY LcwhJ5Igh5VGZmRISgjKAsK990n8aih7lligOrc HP3vLsmRPLjFVZbAOohKKWkQhMuYlOzJMc3ANVv JSjqwNbmA0h7w2EiL8kaybEtZSOrhWU3wUGiHRN teSQmJYdeiXNxuCXyCBXrIZNmlIXgb4OkwjVaFC 5fLKZmqXEanP2fQ0z0j6SsmP2prZSuwD== MICROSCOPIC DESCRIPTION (test code = p2dfwAYeJGDxsPZ3VjPeGGOos7gud8 BsdHBncGF 3371) iKFtquPYjczUsxj99jOA8wY66VT7cQAGdHpB1NB GsftG4Tig1PWNoYMTyzYUuK182n0ykv3zmpzYmz GU8fXzwDBSqASHzULzqUNAsNiEzOOQuIl5djUWj LiBccGFyfQ== SPECIAL STUDIES (test code = 3376) n9lwwYQmUXWdcXO9LrYsZJNzb3sxq8Dh dHBncGF pACjmuVGiucEatn29nDC1rS66DH4hAWNjImX4FV IydoU2Pdp4LARxVYHuhGWoO617DRZkJBDjyQhuw iw0uJ22IEBpmU5yzJAhWMv8DJBhkyXjgOylwJ3y HdNyRtLiOgSXeHEfoV50CEPpjdW0HGCer11pc6X wsXbirzJnEBVzNHclJ0r8SZHbMSRcWTP3u1Jpd3 ZqaC5kgW8mlTkvhO0frAVytGF9fqirh5Vjn7ImD 2lhbCBzdGFpbnMuXHBhciBNdWNpbiBccGFyIENv uuMyi9rfF2huCVFnBAM6JN4ryrNlEyJtNI1chK4 2x4Wff05io19mgW8liPIareDeR38nmATpuFGgb2 QdTONcpgLxnKP8QROnDUdhrfmss2h9vWT3mHDdx URxtGV5hQEboMSdDSMNtXFlXBGmx237ph9kZNQw mSXdxiSphV7rZHhjfqelwEBdEE2mNYNoVQElMJE dDC03lsNtRU3ciSRhx1bxcsZesESqa1OkwIM9IG GayXJnaubyBw2jKM87UOWrXElelA6pmTUowaFiC B7nCU6cJ0E5vNRaSYKkhkCkf5pnBRgcFF0nUOJv uUplGrzyFAZaFWAimrRlrZH7CRDsnMGtYEGcnDL mLBbdnJCjh8nmb8HiN4biaLyxoLZ4HUGiS7kqyW IkqIZ5RKE3yN3mMJgtdwMbRIKzl5DhJEQcGOUpI aN8gF7kWXN8HsDAhGjkYAT5OpF5PMxmTURfAT0t EHuuJUbzD9PweMYvZILOREJkd0ffK0vtXMLkl6F frV8ubWZ6aIBpZIMpfMK6XPEfRCX1LVtstDSyFE KfIHTjxHCngMIhIt3akBYdQ5StL6xhemInyNAhv US4vWXsMPpjwkSdXZS3SBFalO7tMJ3jAWFafRAs FT1edTKnYNWwEVAjTCLsLQGec5IlZKMjtq93SVL tEvddtYxgYFRqSt5aXm5tGMWqmdNbVAY7HbAPMP 6ahgtigKJprHmutz1wUPdiWERMOIUnQGWyYZJ0P KApdU6pYGK9eUA1NUL0W0myY8bgEQAnyyCpGJ8k NFPwpDDozjZbOEceDK3knYAkUURou8GvbtkaLLF rLSC3MKF3ALleNAPoFDJhOt8oNXJhzA1vS8ZrLF N9gwEdb8OvJwQXxJFbgI77uXFoer72OYLqASFqP 0VnUZSoDHQwHVcbetHokHuaJGGiy69lyULdgnRc f2JqcxDrDEXnW0rfUYChdSYreSOwe6JnfX9giBK oqrImWAL6vLDpBMKuzU8hSUSzeSraKANotO2gJ9 ExSIwhYv6wYOTbjtueKW0wnw49SC1nsdPnTU2fm sMpXR01vxVlOkTxQNp9KXkSFJbBSPe1EZAruwJu iMJszGGaTOXqdU9vtXEcLi6rnQNdsWllCHWhmTF dHAslpHuhB7ylnbgxBNgmwYViy2KbbV4mbWO4OY L5mK8hEdycTYS0 Gross assessment was performed at (test [facility] enter, code = 2777) Department of Pathology, [address] [place] [address]92, Technical component was performed at [facility] er, (test code = 2778) Department of Pathology, [address] [place] [address] [id number], Professional component was performed at [facility] enter, (test code = 2779) Department of Pathology, [address] [place] [id number], [facility]27[facility]00Medical Cytology Report Case: [id number] Aut horizing Provider: Amor Muller MD Collected: 11/29/2020 02:08 PM Ordering Location: [facility] Endoscopy Received: 11/30/2020 02:52 PM Services Pathologist: Moises Aguilar MD Specimen: Pancreas, pancreas cyst PANCREAS CYST, HEAD,FNA (CYTOSPINS): - NEGATIVE FOR MALIGNANCY - The mucin stain shows weak and focal positivity Signing Pathologist Direct Phone Line: [phone] signed by Moises Aguilar MD on 12/01/2020 at 2:27 PMA few reactive ductal epithelial cells are noted within a larger population of completely normal and non- reactive ductal epithelial cells. 57309, 843744.5 cm x 1.8 cm anechoic lesion suggestive [...] evaluated Immunohistochemistry technical testing was performed at [facility], Pathology Laboratory where it was developed [...] qualified to perform high complexity clinical laboratory testing.[facility], Department of Pathology, [address] [place] [address], [facility], [address] [place] [address], [facility], [facility] of Pathology, [address] [place] [address], DLEJCNLB [id number] 16:01:00 Test Item Value Reference Range Interpretation Comments Cytology (test code = See Separate Report 2629) [facility] [id number] 16:01:00 Test Item Value Reference Range Interpretation Comments CYTOLOGY RESULT POINTER See Separate Report (NELSY) (test code = 2629) POC-Glucose [id number] 11:57:00 Test Item Value Reference Range Interpretation Comments POC-Glucose Meter (test 73 mg/dL 70-110 : TE STED AT [facility] code = 1538) [address] [facility], 770 30: Crane Engineer/Techni robbie ID = [id number] for HEIDI BARTLETT Lab Interpretation (test Normal code = 31665-2) [facility]SE [id number] 11:57:00 Test Item Value Reference Range Interpretation Comments POC-GLUCOSE METER 73 mg/dL 70-110 : TESTED A T [facility] 6720 (BEAKER) (test code = [facility], 1538) [address]: Crane Engineer/Techni robbie ID = [id number] for CARLTON NEAL Large Joint Arthrocentesis: shoulder, R subacromial [id number] 14:10:00 Juan Antonio Fagan MD 09/28/2020 5:39 PMLarge Joint Arthrocentesis: shoulder, R subacromial bursaConsent given by: patientSite marked: site markedTimeout: Immediately prior to procedure a time out was called to verify the correct patient, procedure, equipment, technical sales support manager and site/side marked as required Supporting DocumentationIndications: pain Procedure DetailsPreparation: Patient was prepped and draped in the usual sterile fashionUltrasound guided: noLocation: shoulder - R subacromial bursa Right side:Needle size: 22 GApproach: posteriorRight shoulder medications administered: 5 mL lidocaine 10 mg/mL (1 %); 40 mg methylPREDNISolone acetate 40 mg/mLPatient tolerance: patient tolerated the procedure well with no immediate complicationsHoufall river hospital MethodistOR [place] < 1 [id number] 10:50:17Hm Interface, Radiology Results - 09/12/2020 10:53 AM CST EXAMINATION: OR FL < 1 HOURCLINICAL HISTORY: 85 years Female, painIMPRESSION:Fluoroscopy was provided. No radiologist present. Please see procedure report for discussionof procedure, findings.[id number] MethodistMRI Lumbar Spine W Wo [id number] 15:50:29Hm Interface, Radiology Results - 07/24/2020 3:53 [...] on the exiting bilateral L5 nerve root s.[id number] MethodistLarge Joint Arthrocentesis: shoulder, R subacromial [id number] 13:10:00Juan Antonio Fagan MD 05/08/2020 4:57 PMLarge Joint Arthrocentesis: shoulder, R subacromial bursaConsent given by: patientSite marked: site markedTimeout: Immediately prior to procedure a time outwas called to verify the correct patient, procedure, equipment, technical sales support manager and site/side marked as required Supporting DocumentationIndications: pain Procedure DetailsPreparation: Patient was prepped and draped in the usual sterile fashionUltrasound guided: noLocation: shoulder - R subacromial bursa Right side:Needle size: 22 GApproach: posteriorRight shoulder medications administered: 5 mL lidocaine 10 mg/mL (1 %); 40 mg methylPREDNISolone acetate 40 mg/mLPatient tolerance: patient tolerated theprocedure well with no immediate complicationsRas Goyal [id number] 10:30:31 Test Item Value Reference Range Interpretation Comments Urine culture (test SEE COMMENT Bacteriu bishop screen code = 9608655) negative. Ras MethodistUrinalysis screen and microscopy, with reflex to culture 2020-04-19 10:30:30 Test Item Value Reference Range Interpretation Comments Specimen site (test Catheterized code = 5234927) Color, UA (test code = Yellow 5778-6) Appearance, UA (test Clear code = 5767-9) Specific gravity, UA 1.017 1.001-1.030 (test code = 5811-5) pH, UA (test code = 7.0 5.0-9.0 5803-2) Protein, UA (test code Negative Negative = 57931-3) Glucose, UA (test code Negative Negative = 48700-5) Ketones, UA (test code 1+ Negative A = 2514-8) Bilirubin, UA (test Negative Negative code = 5770-3) Blood, UA (test code = Negative Negative 5794-3) Nitrite, UA (test code Negative Negative = 5802-4) Urobilinogen, UA (test 2.0 See_Comment A [Aut omated code = 46567-0) message] The system which generated this result [...] (test code = messa ge] The system 44841-0) which generated this result transmitted reference range [...] (test code = 1 See_Comment [Autom ated 13023-0) message] The sy stem which generated this result transmitted reference range : 0 - 5 /HPF. The reference range was not used to interpret this result as normal/abnormal . Bacteria, UA (test Few None seen code = 29061-9) Yeast, UA (test code = None seen 51043-1) Yeast with None seen pseudohyphae, UA (test code = 98854-3) Lab Interpretation Abnormal (test code = 08519-3) Mcginnis [id number] 09:17:55Shanice Quintana MD 04/19/2020 9:18 AMAirwayDate/Time: 04/19/2020 [...] of Attempts at Approach: 1[facility] [id number] 13:25:00 Test Item Value Reference Interpretation Comments [...] Non-Afr. 49 See_Comment L [Automated me ssage] Zambian (test code The syst which = 3845) generated this result transmit roxanna reference range : > OR = 60 mL/min/1.73m2. The reference range was not used to interpret this result as normal/abnormal . EGFR 57 See_Comment L [Automated mes dinah] Zambian (test code The syst which = 12445-3) generated this result transmit roxanna reference range : > OR = 60 mL/min/1.73m2. The reference range was not used to interpret this result as normal/abnormal . BUN/creatinine 16 See_Comment [Automated m essage] ratio (test code = [facility] which [facility] generated this result transmit roxanna reference range : 6 - 22 (calc). The reference range was not used to interpret this result as normal/abnormal . Sodium (test code = 136 mmol/L 636-455 6136-2) Potassium (test 4.8 mmol/L 3.5-5.3 code = 2823-3) Chloride (test code 99 mmol/L 98-110 = 2075-0) CO2 (test code = 29 mmol/L 20-32 2027-9) Calcium (test code 9.7 mg/dL 8.6-10.4 = 47377-3) Protein (test code 6.1 g/dL 6.1-8.1 = 2885-2) Albumin, S (test 3.6 g/dL 3.6-5.1 code = 1751-7) Globulin, total 2.5 See_Comment [Automated message] (test code = The system [facility] [place] [address]-7) generated this result transmit roxanna reference range : 1.9 - 3.7 g/dL (eduar c). The reference r cheyanne was not used to interpret this result as normal/abnormal . Albumin/globulin 1.4 See_Comment [Automated message] ratio (test code = [facility] which 1759-0) generated this result [...] RAC) Organization Information: Site ID: MORIS Name: [facility] Address: [address] [place] [phone] Director: Gaston Ball Lab Interpretation Abnormal (test code = 37464-1) [facility] MethodistProthrombin time with [id number] 13:25:00 Test Item Value Reference Range Interpretation Comments INR (test code = 1.0 Reference R cheyanne 6301-6) 0.9-1.1Moderate -i ntensity Warfar in Therapy 2.0-3.0Higher-i nt ensity Warfarin Therapy 3.0-4 .0 Prothrombin time 10.6 See_Comment For more (test code = information on 590-2) this test, go to:http://[employer]/faq/FAQ1 04 [Automated message] The system which generated this result transmitted reference range : 9.0 - 11.5 sec. The reference range was not used to interpr et this result as normal/abnormal . RAC (test code = Performing RAC) Organization Information: Site ID: [facility] Address: [address] [place] [phone] Director: Gaston Ball [facility] MethodistPartial thromboplastin time, [id number] 13:25:00 Test Item Value Reference Interpretation Comments Range PTT (test 23 See_Comment This test has [place] = [place] [address]-9) monitoringunfra ctionated heparin therapy . For testing thatis validate d for this type of therapy , please referto the Hep jennifer Anti-Xa assay ([place] [address]). For additional info rmation, please refer tohttp://educat ionColl[employer]/faq/ BDG562(This link is being p rovided for informational/e ducational purposes only.) [Automated message] The sy stem which generated this result transmitted ref erence range: 22 - 34 sec. Th e reference range was not u sed to interpret this result as normal/abnormal . RAC (test Performing code = Organization RAC) Information: Site ID: MORIS Name: [facility] Address: [address] [place] [phone] Director: Gaston Mcginnis MethodistURINALYSIS, COMPLETE, WITH REFLEX TO [id number] 13:25:00 Test Item Value Reference Range Interpretation Comments Color, UA (test code YELLOW YELLOW = 5778-6) Appearance (test CLOUDY CLEAR A code = 5767-9) Specific gravity, 1.016 1.001-1.035 urine (test code = 5811-5) pH, urine (test code < OR = 5.0 5.0-8.0 = 5803-2) Glucose, urine (test NEGATIVE NEGATIVE code = 04074-5) Bilirubin, UA (test NEGATIVE NEGATIVE code = 5770-3) Ketones, UA (test NEGATIVE NEGATIVE code = 2514-8) Occult blood, urine NEGATIVE NEGATIVE (test code = 5794-3) Protein, UA (test NEGATIVE NEGATIVE code = 56348-8) Nitrite, UA (test POSITIVE NEGATIVE A code [...] code = NONE SEEN See_Comment [Autom ated 63452-0) message] The system which generated this result transmitted reference range : < OR = 2 /HPF. The reference range was not used to interpr et this result as normal/abnormal . Squamous epithelial 0-5 See_Comment [Automa roxanna cells, UA (test code message ] The = 43007-0) system which generated this result transmitted reference range : < OR = 5 /HPF. The reference range was not used to interpr et this result as normal/abnormal . Bacteria, UA (test MANY NONE SEEN /HPF A code = 5769-5) Calcium oxalate FEW NONE OR FEW crystals, UA (test /HPF code = 46011-6) Hyaline casts, UA NONE SEEN NONE SEEN /LPF (test code = 5796-8) Reflex (test code = CULTURE INDICATED 630-4) - RESULTS TO FOLLOW RAC (test code = Performing RAC) Organization Information: Site ID: RGA Name: [employer] [facility] Address: [address] [place] [address] Director: Gaston Ball Lab Interpretation Abnormal (test code = 67780-9) Mcg[facility] MethodistECG Pre/Post [id number] 19:11:35 Test Item Value Reference Range Interpretation Comments Ventricular rate (test 74 code = 253) Atrial rate (test code 74 = 255) MT interval (test code 140 = 266) QRSD [...] wave abnormality now evident in Lateral leads- [facility] Chest 2 [id number] 14:04:38Hm Interface, Radiology Results Incoming - 02/24/2020 [...] are unchanged and unremarkable.The bones are unremarkable. [facility]-[id number] [place]
[2021-02-14] MEDS ORDERED: LIDOCAINE 1% 20 ML MDV ONE (05:08)
[2021-02-14] MEDS ORDERED: TETANUS & DIPHTHERIA TOX,ADULT 0.5 ML VIAL ONE (05:09)
[2021-02-14] MEDS ORDERED: NA CHLORIDE 0.9% 1,000 ML ONE (05:36)
[2021-02-14 06:01] LABS: Absolute Lymphocytes (CBC) 1.8 K/uL (0.7-4.9); Basophils % 0.7 % (0-1.3); Hematocrit 26.3 % (36.0-45.0); Lymphocytes % 27.7 % (15.3-44.8); MPV 7.9 fL (7.6-11.3); RBC Red Blood Cell Count 2.93 M/uL (3.86-4.86)
[2021-02-14 06:36] LABS: ALT/SGPT 20 U/L (12-78); AST/SGOT 15 U/L (15-37); Albumin 2.7 g/dL (3.4-5.0); Alkaline Phosphatase 34 U/L (45-117); BUN Blood Urea Nitrogen 24 mg/dL (7-18); Bicarbonate 22 mmol/L (21-32); Bilirubin Direct 0.1 mg/dL (0-0.2); Bilirubin Total 0.3 mg/dL (0.2-1.0); Glucose Level 89 mg/dL (74-106); Magnesium 1.9 mg/dL (1.8-2.4); NT PRO-BNP 739 pg/mL (<450); Potassium 3.9 mmol/L (3.5-5.1); Protein, Total 5.4 g/dL (6.4-8.2); Sodium Level 137 mmol/L (136-145); Troponin (Emerg Dept Use Only) < 0.02 ng/mL (0.0-0.045)
--- NOTE | 2021-02-14 06:49 | ER ---
Nurse's Notes [facility] Name: Caridad Chadwick Age: 85 yrs Sex: Female : 1935 Arrival Date: 02/14/2021 Time: 04:42 Bed 14 Private MD: Diagnosis: Head injury. Laceration right parietal scalp. S/P Fall Presentation: 02/14 04:43 Chief complaint: EMS states: patient fell at home while ambulating to bathroom 30 jm8 minutes prior to arrival. Unknown LOC. Patient not on blood thinners currently. Coronavirus screen: Client denies travel out of the [place] in the last 14 days. At this time, the client does not indicate any symptoms associated with coronavirus-19. Ebola Screen: Patient negative for fever greater than or equal to 101.5 degrees Fahrenheit, and additional compatible Ebola Virus Disease symptoms Patient denies exposure to infectious person. Patient denies travel to an Ebola-affected area in the 21 days before illness onset. Initial Sepsis Screen: Does the patient meet any 2 criteria? No. Patient's initial sepsis screen is negative. Does the patient have a suspected source of infection? No. Patient's initial sepsis screen is negative. Risk Assessment: Do you want to hurt yourself or someone else? Patient reports no desire to harm self or others. Onset of symptoms Onset of symptoms was February 14, 2021 at 04:00. Care prior to arrival: Bleeding of injury controlled. Glucose check: 84. Mechanism of Injury: Fall. 04:43 Method Of Arrival: EMS: [place] [id number] 04:43 Acuity: ZOIE 3 jm8 Historical: - Allergies: 04:51 Codeine; jm8 - PMHx: 04:51 C DIFF; Diabetes - NIDDM; Cyst on pancreas; Diverticulitis; GERD; Hypothyroidism; jm8 Hypertension; Rheumatoid Arthritis; - Immunization history:: Adult Immunizations up to date. - Social history:: Smoking status: unknown. Screenin:14 Abuse screen: Denies threats or abuse. Denies injuries from another. Nutritional jm8 screening: No deficits noted. Tuberculosis screening: No symptoms or risk factors identified. Fall Risk None identified. Assessment: 04:52 General: Appears distressed, uncomfortable, Behavior is anxious, crying, Denies fever, jm8 feeling ill, fatigue, chills. Pain: Complains of pain in back of head Pain currently is 10 out of 10 on a pain scale. Pain began 30 min ago. Aggravated by fall Also complains of no other associated symptoms. Neuro: No deficits noted. Neuro: Level of Consciousness is awake, alert, obeys commands, Oriented to person, place, time, situation, Reports possible LOC after fall. Cardiovascular: No deficits noted. 05:12 Respiratory: No deficits noted. GI: No deficits noted. : No deficits noted. EENT: No 8 deficits noted. Derm: Wound noted scalp Wound is 2 inch laceration. Musculoskeletal: No deficits noted. Injury Description: Laceration sustained to scalp is full thickness, 2.6 to 7.5 cm long, bleeding moderately, was sustained 30-60 minutes ago. moderate bleeding noted at this time. 06:34 Reassessment: Patient appears in no apparent distress at this time. No changes from [facility] previously documented assessment. Patient and/or family updated on plan of care and expected duration. Pain level reassessed. Patient is alert, oriented x 3, equal unlabored respirations, skin warm/dry/pink. Patient states symptoms have improved. . 06:34 Reassessment: in to reassess patient. Patient and spouse request for patient to be [facility] admitted to hospital. 06:36 Reassessment: Brisa Billings- spouse . [facility] 06:51 Reassessment: Dr. Abernathy at bedside to see patient. jm8 Vital Signs: 04:43 BP 139 / 73; Pulse 77; Resp 20; Temp 97.6; Pulse Ox 98% ; Weight 57.15 kg; Height 5 ft. jm8 1 in. (154.94 cm); Pain 10/10; 05:51 BP 164 / 72; Pulse 71; Resp 16; Pulse Ox 97% on R/A; jm8 04:43 Body Mass Index 23.81 (57.15 kg, 154.94 cm) jm8 ED Course: 04:42 Patient arrived in ED. jm8 04:43 Jason Canales MD is Attending Physician. pkl 04:47 Triage completed. jm8 04:51 Arm band placed on left wrist. jm8 05:14 Assist provider with laceration repair on back of head that was between 2.6 to 7.5 cm jm8 using sutures. Set up tray. Performed by Jason Canales MD Dressed with 4X4s, Kerlix, Neosporin, Patient tolerated well. 05:15 Patient has correct armband on for positive identification. Bed in low position. Call jm8 light in reach. Side rails up X2. Adult w/ patient. 05:30 CT Head C Spine Sent. jm8 05:37 CT Head C Spine In Process Unspecified. EDMS 05:40 XRAY Chest (1 view) In Process Unspecified. EDMS 05:45 Inserted saline lock: 20 gauge in right antecubital area, using aseptic technique. jm8 05:45 COVID-19 : Document "Date of Symptom Onset" if Symptomatic. Sent. jm8 05:53 EKG done, by ED staff. jm8 06:17 Basic Metabolic Panel Sent. jm8 06:17 CBC with Diff Sent. jm8 06:17 LFT's Sent. jm8 06:47 Trav Abernathy MD is Hospitalizing Provider. pkl 07:02 Report given to Flaquita SU. jm8 07:15 Awaiting: unsuccessful attempt to give report at this time. tw2 07:53 Patient admitted, IV remains in place. 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 Exp: mg2 12/08/2022. Lot #: [id number]. } Route: IM; Site: left deltoid; 06:52 Follow up: Response: No adverse reaction 8 05:44 Drug: NS 0.9% 1000 ml Route: IV; Rate: 100 ml/hr; Site: right antecubital; jm8 07:53 Follow up: IV Status: Infusion continued upon admission tw2 Outcome: 06:48 Decision to Hospitalize by Provider. pkl 07:53 Admitted to Med/surg accompanied by tech, via stretcher, room 421, with chart, Report tw2 called to SHARLENE Pelayo 07:53 Condition: stable 07:53 Instructed on the need for admit. 07:54 Patient left the ED. tw2 Signatures: Dispatcher [employer] Jason Shaffer MD MD pkl Wise, Tara, RN RN tw2 Luis Felipe Pickering, RN RN mg2 Zaid Gaspar RN RN jm8 Corrections: (The following items were deleted from the chart) 05:14 04:52 Cardiovascular: No deficits noted. [place] [id number] 05:14 04:52 Neuro: Level of Consciousness is awake, alert, obeys commands, Oriented to saurabh person, place, time, situation, [facility] 05:28 05:16 CORONAVIRUS drawn and sent. [facility] EDMS 05:47 05:15 Patient has correct armband on for positive identification. Allergy band placed. 8 Fall risk band placed. Bed in low position. Call light in reach. Side rails up X2. [facility] 05:48 05:15 Patient has correct armband on for positive identification. Allergy band placed. 8 Fall risk band placed. Bed in low position. Call light in reach. Side rails up X2. [facility]
--- NOTE | 2021-02-14 06:49 | EDPHYS ---
Physician Documentation [facility] Name: Caridad Chadwick Age: 85 yrs Sex: Female : 1935 Arrival Date: 02/14/2021 Time: 04:42 Bed 14 Private MD: ED Physician Jason Canales HPI: 02/14 05:09 This 85 yrs old Female presents to ER via EMS with unknown complaint. pkl 05:09 Details of fall: The patient fell from an upright position, while walking. Onset: The pkl symptoms/episode began/occurred just prior to arrival. Associated injuries: The patient sustained injury to the head, contusion, laceration. Historical: - Allergies: 04:51 Codeine; jm8 - PMHx: 04:51 C DIFF; Diabetes - NIDDM; Cyst on pancreas; Diverticulitis; GERD; Hypothyroidism; jm8 Hypertension; Rheumatoid Arthritis; - Immunization history:: Adult Immunizations up to date. - Social history:: Smoking status: unknown. ROS: 05:09 Eyes: Negative for injury, pain, redness, and discharge, ENT: Negative for injury, pkl pain, and discharge, Neck: Negative for injury, pain, and swelling, Cardiovascular: Negative for chest pain, palpitations, and edema, Respiratory: Negative for shortness of breath, cough, wheezing, and pleuritic chest pain, Abdomen/GI: Negative for abdominal pain, nausea, vomiting, diarrhea, and constipation, Back: Negative for injury and pain, : Negative for injury, bleeding, discharge, and swelling, MS/Extremity: Negative for injury and deformity. 05:09 Skin: Positive for laceration(s), of the right parietal scalp and left hand. 05:09 Neuro: Negative for altered mental status. Exam: 05:09 Eyes: Pupils equal round and reactive to light, extra-ocular motions intact. Lids and pkl lashes normal. Conjunctiva and sclera are non-icteric and not injected. Cornea within normal limits. Periorbital areas with no swelling, redness, or edema. 05:09 Head/face: Noted is a laceration(s), that is deep, 4 cm(s), of the right parietal scalp. 05:09 ENT: Exam is negative for acute changes. 05:09 Neck: Exam negative for nuchal rigidity. 05:09 Chest/axilla: Exam negative for acute changes. 05:09 Cardiovascular: Rate: normal, Rhythm: regular. 05:09 Respiratory: the patient does not display signs of respiratory distress, Respirations: normal, Breath sounds: are clear throughout. 05:09 Abdomen/GI: Bowel sounds: normal, Palpation: abdomen is soft and non-tender, in all quadrants. 05:09 Back: Exam negative for acute changes. 05:09 : Exam negative for acute changes. 05:09 Musculoskeletal/extremity: Exam is negative for acute changes. 05:09 Skin: Exam negative for rash. 05:09 Neuro: Orientation: is normal, Mentation: is normal, Cranial nerves: grossly normal, Motor: moves all fours. Vital Signs: 04:43 BP 139 / 73; Pulse 77; Resp 20; Temp 97.6; Pulse Ox 98% ; Weight 57.15 kg; Height 5 ft. 8 1 in. (154.94 cm); Pain 10/10; 05:51 BP 164 / 72; Pulse 71; Resp 16; Pulse Ox 97% on R/A; 8 04:43 Body Mass Index 23.81 (57.15 kg, 154.94 cm) [facility] MDM: 04:44 Patient medically screened. pkl 06:45 Data reviewed: vital signs, nurses notes, lab test result(s), EKG, radiologic studies, pkl CT scan, plain films. ED course: Talked to Dr. Abernathy, for observation. 02/14 04:55 Order name: COVID-19 : Document "Date of Symptom Onset" if Symptomatic. [facility] 02/14 05:06 Order name: Basic Metabolic Panel [facility] 02/14 05:06 Order name: CBC with Diff pkl 02/14 05:06 Order name: LFT's pkl 02/14 05:06 Order name: Magnesium pkl 02/14 05:06 Order name: NT PRO-BNP pkl 02/14 05:06 Order name: PT-INR; Complete Time: 06:25 pkl 02/14 05:06 Order name: Troponin (emerg Dept Use Only) pkl 02/14 05:06 Order name: XRAY Chest (1 view) pk 02/14 05:06 Order name: Basic Metabolic Panel EDMS 02/14 05:06 Order name: CBC with Automated Diff; Complete Time: 06:25 EDMS 02/14 05:06 Order name: Liver (Hepatic) Function EDWI 02/14 06:13 Order name: SARS-COV-2 RT PCR; Complete Time: 06:25 [facility] 02/14 04:55 Order name: Suture Tray Setup; Complete Time: 04:56 [facility] 02/14 05:06 Order name: EKG; Complete Time: 05:06 [facility] 02/14 05:06 Order name: Cardiac monitoring; Complete Time: 05:52 pk 02/14 05:06 Order name: EKG - Nurse/Tech; Complete Time: 05:52 pkl 02/14 05:06 Order name: IV Saline Lock; Complete Time: 05:45 pkl 02/14 05:06 Order name: Labs collected and sent; Complete Time: 05:45 pk 02/14 05:06 Order name: O2 Per Protocol; Complete Time: 05:17 pk 02/14 05:06 Order name: O2 Sat Monitoring; Complete Time: 05:17 pk 02/14 05:06 Order name: CT Head C Spine [facility] 02/14 06:59 Order name: Regular EDMS Administered Medications: 04:56 Drug: Lidocaine (1 %) 1 amp {Note: administered by the provider.} Volume: 20 ml; Route: mg2 Infiltration; 06:51 Follow up: Response: No adverse reaction 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 Exp: mg2 12/08/2022. Lot #: [id number]. } Route: IM; Site: left deltoid; 06:52 Follow up: Response: No adverse reaction [facility] 05:44 Drug: NS 0.9% 1000 ml Route: IV; Rate: 100 ml/hr; Site: right antecubital; jm8 07:53 Follow up: IV Status: Infusion continued upon admission tw2 Disposition: 02/14/21 06:48 Hospitalization ordered by Trav Abernathy for Observation. Preliminary diagnosis is Head injury. Laceration right parietal scalp. S/P Fall. - Bed requested for Telemetry/MedSurg (observation). - Status is Observation. tw2 - Condition is Stable. - Problem is new. - Symptoms have improved. Signatures: Dispatcher [employer] EDMS Jason Canales MD MD pkl Johanna Alcantar RN RN tl1 Flaquita Meadows RN RN tw2 Luis Felipe Pickering, RN RN mg2 Zaid Gaspar RN RN jm8 Corrections: (The following items were deleted from the chart) 05:28 04:56 CORONAVIRUS ordered. EDMS EDMS 07:11 06:48 Hospitalization Ordered by Trav Abernathy MD for Observation. Preliminary diagnosis tl1 is Head injury. Laceration right parietal scalp. S/P Fall. Bed requested for Telemetry/MedSurg (observation). Status is Observation. Condition is Stable. Problem is new. Symptoms have improved. pkl 07:54 07:11 02/14/2021 06:48 Hospitalization Ordered by Trav Abernathy MD for Observation. tw2 Preliminary diagnosis is Head injury. Laceration right parietal scalp. S/P Fall. Bed requested for Telemetry/MedSurg (observation). Status is Observation. Condition is Stable. Problem is new. Symptoms have improved. tl1
[2021-02-14] MEDS: NA CHLORIDE 0.9% 1,000 ML IV SCH ×2 (07:00→16:35)
[2021-02-14] MEDS ORDERED: D50W 25 GM/50 ML SYRINGE IV PRN (07:44)
[2021-02-14] MEDS ORDERED: GLUCAGON 1 MG/VIAL IM PRN (07:44)
[2021-02-14] MEDS: FE SULF/FA/VIT B COMP & C TAB PO SCH (08:00)
[2021-02-14 08:20] VITALS: BMI 23.8
[2021-02-14] MEDS: carvediloL 12.5 MG TAB PO SCH ×2 (08:30→20:11)
[2021-02-14] MEDS: VALSARTAN 160 MG TAB PO SCH (08:30)
[2021-02-14] MEDS: methocarbamoL 500 MG TAB PO SCH ×2 (08:31→20:11)
[2021-02-14] MEDS: DULOXETINE 30 MG CAP PO SCH (08:31)
[2021-02-14] MEDS: predniSONE 20 MG TAB PO SCH (08:32)
--- NOTE | 2021-02-14 09:01 | RAD REPORT ---
EXAM DESCRIPTION: RAD - Chest Single View - 02/14/2021 5:40 am CLINICAL HISTORY: fall Chest pain. COMPARISON: <Comparisons> FINDINGS: Portable technique limits examination quality. The lungs are grossly clear. The heart is normal in size. No displaced fractures. IMPRESSION: No acute intrathoracic process suspected.
[2021-02-14] MEDS ORDERED: PNEUMOCOCCAL VACCINE 0.5 ML IMVAC ONE (10:00)
[2021-02-14] MEDS: HYDROXYCHLOROQUINE 200MG TAB PO SCH ×2 (10:56→20:12)
[2021-02-14] MEDS: INSULIN -REGULAR HUMAN 50 UNIT/0.5 ML ML SQ SCH ×3 (11:30→20:29)
[2021-02-14] MEDS: TRAMADOL HCL 50 MG TAB PO PRN ×2 (11:41→18:17)
[2021-02-14] MEDS ORDERED: ONDANSETRON 4 MG/2 ML VIAL IV PRN (12:30)
--- NOTE | 2021-02-14 14:59 | RAD REPORT ---
EXAM DESCRIPTION: 1. CT of the head without contrast 2. CT of the cervical spine without contrast. CLINICAL HISTORY: Fall COMPARISON: 06/21/2019 TECHNIQUE: Axial CT of the head obtained from the skull apex to the skull base without contrast. Axi al CT images of the cervical spine obtained from the skull base through the thoracic inlet. Sagittal and coronal reformatted images available. This exam was performed according to our departmental dose- optimization program, which includes automated exposure control, adjustment of the mA and/or kV accor ding to patient size and/or use of iterative reconstruction technique. FINDINGS: CT head: No acute intracranial hemorrhage identified. No mass, mass effect, shift of the midline, abnormal ext ra-axial fluid collection or CT evidence of acute ischemic change identified. Mild enlargement of nika tricular system and sulcal spaces compatible with scattered areas of hypodensity throughout the sup ratentorial white matter are nonspecific and may represent sequela of chronic small vessel ischemic c hange. The visualized paranasal sinuses and the mastoids are clear. No skull fracture identified. Visual ized orbits and globes are unremarkable. Intracranial atherosclerosis. Cervical CT: Straightening of the cervical lordosis may be secondary to patient positioning. The atlantoaxial, a tlantodental, and occipitoatlantal intervals are preserved. No acute fractures identified. Stable w edging of the T1 vertebral body. Prevertebral soft tissues are unremarkable. Spurring of the atlantodental articulation. Moderate to severe multilevel loss of intervertebral disc height with endplate spondylosis, facet arthropathy, and uncovertebral spurring. 3 mm anterolisthesi s of C4 over C5. 3 mm retrolisthesis of C5 over C6. Visualized skull base is intact. No fracture of the visualized facial bones. Visualized mastoid air c ells and paranasal sinuses are well aerated. Visualized thyroid is unremarkable. No cervical lymphadenopathy. No pneumothorax in the visualized lung apices. Atherosclerotic calcification of the thoracic aorta. IMPRESSION: 1. No acute intracranial abnormality. 2. No acute fracture or subluxation of the cervical spine. 3. Multilevel degenerative change of the cervical spine. Electronically signed by: Mumtaz Hummel 02/14/2021 5:56 AM CDT Due to temporary technical issues with the PACS/Fluency reporting system, reports are being signed by the in house radiologists without review as a courtesy to insure prompt reporting. The interpreting radiologist is fully responsible for the content of the report.
[2021-02-14] MEDS ORDERED: D50W 25 GM/50 ML VIAL IV PRN (16:00)
[2021-02-14] MEDS: ROSUVASTATIN 10 MG TAB PO SCH (20:11)
[2021-02-14] MEDS: OFLOXACIN 0.3% OPTH SCH (20:15)
[2021-02-14] MEDS: OPTH OPTH SCH (20:15)
[2021-02-15] MEDS: TRAMADOL HCL 50 MG TAB PO PRN (00:14)
[2021-02-15] MEDS: NA CHLORIDE 0.9% 1,000 ML IV SCH (01:43)
[2021-02-15 04:10] LABS: Absolute Lymphocytes (CBC) 1.9 K/uL (0.7-4.9); Basophils % 0.4 % (0-1.3); Hematocrit 26.8 % (36.0-45.0); Lymphocytes % 31.3 % (15.3-44.8); RBC Red Blood Cell Count 2.95 M/uL (3.86-4.86)
[2021-02-15 04:12] LABS: Potassium 3.7 mmol/L (3.5-5.1)
[2021-02-15] MEDS: PANTOPRAZOLE 40MG TABLET PO SCH (06:28)
[2021-02-15] MEDS: LEVOTHYROXINE SOD 0.1 MG TAB PO SCH (06:28)
[2021-02-15] MEDS: INSULIN -REGULAR HUMAN 50 UNIT/0.5 ML ML SQ SCH ×4 (07:30→20:56)
[2021-02-15] MEDS: FE SULF/FA/VIT B COMP & C TAB PO SCH (08:00)
[2021-02-15] MEDS: methocarbamoL 500 MG TAB PO SCH ×2 (08:02→20:59)
[2021-02-15] MEDS: predniSONE 20 MG TAB PO SCH (08:02)
[2021-02-15] MEDS: GABAPENTIN 100 MG CAP PO SCH ×2 (08:03→20:56)
[2021-02-15] MEDS: OPTH OPTH SCH ×3 (08:03→20:57)
[2021-02-15] MEDS: DULOXETINE 30 MG CAP PO SCH (08:03)
[2021-02-15] MEDS: OFLOXACIN 0.3% OPTH SCH ×3 (08:03→20:57)
[2021-02-15] MEDS: VALSARTAN 160 MG TAB PO SCH (08:09)
[2021-02-15] MEDS: carvediloL 12.5 MG TAB PO SCH ×2 (08:09→20:55)
[2021-02-15] MEDS ORDERED: OFLOXACIN EACH EYE SCH (09:00)
[2021-02-15] MEDS: FAMCICLOVIR 500 MG PO SCH ×3 (09:00→20:57)
[2021-02-15] MEDS: MECLIZINE HCL 12.5 MG TAB PO PRN ×2 (09:53→16:26)
[2021-02-15] MEDS: HYDROXYCHLOROQUINE 200MG TAB PO SCH ×2 (09:58→20:57)
--- NOTE | 2021-02-15 11:14 | PN ---
Date of Progress Note: 02/15/2021 Subjective: The patient was seen this morning. Her was with her at bedside. She is complai elvin of feeling dizzy when she moves her head and that started after she fell at home and had a head injury. She had an Roque wrap dressing present over her head and she was complaining of her head feeli ng too tight. As soon as I removed that Roque wrap dressing, she immediately felt better without compl aint. Objective: Vital Signs: Reviewed. HEENT: Unremarkable except rash on her left forehead and left upper eyelid as well as left frontal a nd temporal scalp which is pink macular rash from her shingles. Lungs: Clear to auscultation. Heart: Sounds normal. Abdomen: Soft. Bowel sounds normal. No guarding, rigidity, tenderness, or distention. Extremities: No leg edema. Neuro: No focal neurological deficit. Laboratory Data: White count 6.2, hemoglobin 9, platelets 221. Sodium 141, potassium 3.7, chloride 107, bicarb 27, BUN 18, creatinine 0.72, glucose 68. Impression: 1.Head injury. 2.Laceration, scalp. 3.Laceration, left hand. 4.Hypertension. 5.Anemia. 6.Herpes zoster. 7.Generalized weakness. 8.Dizziness. 9.Debility. Plan: I did examine her scalp laceration and she has 4 sutures present. This is a large area of lac eration on her right posterior scalp. There is no discharge, no bleeding at this point. Yesterday, she did participate with physical therapy. We did talk about possible discharge today and as soon as I say that, the patient's and the patient they both informed me that she cannot go home. I understand that and they live by themselves at home and I presented multiple different o ptions. One option is to consider to go to intermediate for short-term stay, but at the same time, I informed them that the patient is in the hospital as observation and if she goes to intermediate, merrill donald will not get benefit from insurance company because she has not spent 3 midnights in hospital as an inpatient. So, if she goes to intermediate, it would be very likely [id number] cost. Other opti on is to go home with family member providing 24-hour care along with home health and home physical t herapy and as her condition improves, then family member can withdraw that 24-hour care and other opt ion was if family member is not able to provide such care, then arrangements can be made for caregive r service who can provide 24-hour care in place of family member with home health care and home physi eduar therapy services. I spent about 30 minutes with the patient and the patient's discussing about all this options and they were not sure what to do so I informed them that they need to think about it and I can have director of social services assist them and provide more information about all the details that I provided to them. After I left, nursing staff contacted me and informed me that the patient w as very upset and was crying and she did not want to leave the hospital and she wanted to stay in the hospital. So, once again, per my request, I had charge nurse go into her room and explain all these options that I had explained it to her 1 more time and the patient and her they both decided that they will end up staying here in the hospital until she gets better. We will have physical the rapy continue to work with her and meclizine was ordered for p.r.n. use. Order was also placed for n nataliaing staff to provide dressing changes. Dr. John will cover this patient in my absence over this weekend. NIMA/MODL Voice ID: [id number] Report ID: [id number]
[2021-02-15] MEDS ORDERED: BACI/NEOMYCIN/POLY OINT 15GM TOP PRN (11:16)
--- NOTE | 2021-02-15 12:41 | HP ---
Date of Admission: 02/14/2021 Chief Complaint: Fall and head injury. History Of Present Illness: This 85-year-old female patient who lives at home with her was walking to go to the bathroom using her walker and during this process, she actually stepped backwards, lost her balance and fell. Her called 911 and she was brought to the emergency room. She had laceration to her scalp that required 4 sutures which were placed in emergency room and she had small laceration in her left hand which did not require any intervention except dressing. Decision was made to admit the patient to the hospital because the patient was too weak to go home. When I saw her in the emergency room, she was lying in bed. Her who was in the emergency room earlier already had left to go back home. Allergies: TO CODEINE CAUSING HALLUCINATIONS, NAUSEA, VOMITING. Review of Systems: Musculoskeletal: Has chronic arthritis problem. Constitutional: Fatigue. All other systems reviewed and negative. Medications: 1. Carvedilol 12.5 mg 2 times a day. 2. Cholestyramine 1 pack mixed with water 2 times a day. 3. Duloxetine 30 mg p.o. daily. 4. Hemocyte Plus 1 tablet by mouth 2 times a day. 5. Hydroxychloroquine 200 mg 2 times a day. 6. Levothyroxine 100 mcg p.o. daily. 7. Metformin 500 mg, she takes 2 tablets by mouth 2 times a day. 8. Methocarbamol 500 mg 2 times a day as needed. 9. Olmesartan 40 mg p.o. daily. 10. Omeprazole 20 mg p.o. daily. 11. Prednisone, her usual dose is 10 mg daily, but recently she was prescribed prednisone 30 mg daily for 3 days, then 20 mg daily for 3 days, then stop this dose and start her usual maintenance dose of 10 mg daily. 12. Rosuvastatin 5 mg daily. 13. Tramadol p.r.n. 14. Omeprazole 20 mg daily. Past Medical History: Significant for peripheral neuropathy, hypothyroidism, type 2 diabetes mellitus, hypertension, mixed hyperlipidemia, gastroesophageal reflux disease, diverticulosis, rheumatoid arthritis, polymyalgia rheumatica, anemia, insomnia. Past Surgical History: Cataract surgery, hysterectomy, bladder suspension, back surgery, knee surgery and foot surgery. Family History: Father , had lung. Mother , details unknown. Brother has diabetes. Sister had lung cancer. Social History: Negative for smoking. Use of alcohol, occasional use of glass of wine. Physical Examination: Vital Signs: When she came into emergency room, blood pressure 139/73, pulse 77, respiratory rate 20, temperature 97.6, oxygen saturation 98%. Weight 57.15 kg, height 5 feet 1 inch. General: Awake, alert, oriented, not in distress. HEENT: Mouth, no thrush or edema noted. Ears/Nose, no mass, lesion, discharge noted. Her scalp has dressing present which was applied in the emergency room after suture placement. Left upper eyelid appears to have pink rash with some blisters and some macular rash over left forehead and left temporal scalp region and this is all due to recent diagnosis of herpes zoster, for which she was seen at office on 02/11/2021 and was prescribed famciclovir, gabapentin and increased dose of prednisone. The patient has also seen her heater planer operator, Dr. Fall and he has prescribed some eyedrops for her for this reason for this reason. Neck: Supple. No JVD, lymph nodes, bruit, thyromegaly noted. Lungs: Bilateral good equal air entry. Clear to auscultation. No rhonchi. No rales. Heart: Normal heart sounds, no murmur or gallop. Abdomen: Soft, bowel sounds normal. No guarding, rigidity, tenderness, mass, hepatosplenomegaly, distention, or bruit noted. Extremities: No leg edema. No calf tenderness. Left hand has a dressing present between finger. No evidence of any acute bleeding anywhere. Skin: No rash, ulcer, cellulitis. Lymphatics: No lymph node enlargement in neck, supraclavicular, infraclavicular region. Neuro: No focal neurological deficit. Chest: Unremarkable. External Genitalia: Deferred. Rectal: Deferred. Laboratory Data: White count 6.4, hemoglobin 9.3, platelets 221. Sodium 137, potassium 3.9, chloride 103, bicarb 22, BUN 24, creatinine 1.14, glucose 89. Liver function tests unremarkable. Troponin less than 0.02. COVID-19 test negative. CAT scan of the head, no acute intracranial changes. CAT scan of the cervical spine, no acute fracture. Presence of degenerative changes of cervical spine noted. Chest x-ray, no acute intrathoracic changes. Impression: 1. Head injury. 2. Scalp laceration. 3. Left hand laceration. 4. Anemia, chronic. 5. Hypertension. 6. Type 2 diabetes mellitus. 7. Hyperlipidemia, mixed. 8. Peripheral neuropathy. 9. Hypothyroidism. 10. Gastroesophageal reflux disease. 11. Diverticulosis. 12. Rheumatoid arthritis. 13. Polymyalgia rheumatica. 14. Insomnia. Plan: Admit the patient to hospital for further evaluation and management of this problem. The patient is appropriate for observation. We will go ahead and continue home medications per order. Consult Physical Therapy and we will also consult Social Service to assist the patient with arrangements for home health care and home physical therapy. I will see her tomorrow for followup, possible discharge to go home tomorrow. Details and plan of treatment discussed with the patient. The patient will need suture removal probably in about 7 to 10 days. NIMA/MALGORZATA Voice ID: [id number] MTDD
[2021-02-15] MEDS: BACI/NEOMYCIN/POLY OINT 15GM TOP SCH (14:21)
[2021-02-15] MEDS: ROSUVASTATIN 10 MG TAB PO SCH (20:59)
[2021-02-16] MEDS: PANTOPRAZOLE 40MG TABLET PO SCH (05:53)
[2021-02-16] MEDS: LEVOTHYROXINE SOD 0.1 MG TAB PO SCH (05:55)
[2021-02-16] MEDS: MECLIZINE HCL 12.5 MG TAB PO PRN (06:03)
[2021-02-16] MEDS: INSULIN -REGULAR HUMAN 50 UNIT/0.5 ML ML SQ SCH ×4 (07:30→20:34)
[2021-02-16] MEDS ORDERED: HOME MED 1 EA UNK (Omeprazole [Omeprazole] 20 MG Capsule.Dr) PO SCH (09:00)
[2021-02-16] MEDS: VALSARTAN 160 MG TAB PO SCH ×2 (09:00→20:26)
[2021-02-16] MEDS: DULOXETINE 30 MG CAP PO SCH (09:35)
[2021-02-16] MEDS: FE SULF/FA/VIT B COMP & C TAB PO SCH (09:35)
[2021-02-16] MEDS: predniSONE 20 MG TAB PO SCH (09:35)
[2021-02-16] MEDS: carvediloL 12.5 MG TAB PO SCH ×2 (09:36→20:28)
[2021-02-16] MEDS: GABAPENTIN 100 MG CAP PO SCH ×3 (09:37→20:28)
[2021-02-16] MEDS: methocarbamoL 500 MG TAB PO SCH ×2 (09:37→20:27)
[2021-02-16] MEDS: METFORMIN ER 500 MG TAB PO SCH ×2 (09:37→18:02)
[2021-02-16] MEDS: HYDROXYCHLOROQUINE 200MG TAB PO SCH (09:38)
[2021-02-16] MEDS: FAMCICLOVIR 500 MG PO SCH ×3 (09:39→20:30)
[2021-02-16] MEDS: OPTH OPTH SCH ×3 (09:39→20:30)
[2021-02-16] MEDS: OFLOXACIN 0.3% OPTH SCH ×3 (09:39→20:30)
[2021-02-16] MEDS: predniSONE 10 MG TAB PO SCH (10:00)
--- NOTE | 2021-02-16 13:52 | P.PN ---
Subjective Date of Service: 02/16/21 Chief Complaint: FALLEN AND HAS LACERATION OF SCALP, DIZZY. Subjective: Improving MS. MARIO IS WEAK LADY WITH RA AND RECENT C DIFF TOXIN DIARRHEA,WHO JUST COMPLETED HER COURSE. HER TREATMENT WAS INTERRUPTED BY DOCTORS VISIT IN [place] PER . HER IS 89 YEARS OLD AND CALLS AMBULANCE WHEN SHE FALLS. DR. ALLISON HAS TOLD FAMILY THAT HE WILL KEEP HER UNTIL THURSDAY. SHE IS ON OBSERVATION AND DOES NOT HAVE INPATIENT DIAGNOSIS. Review of Systems 10-point ROS is otherwise unremarkable General: Weakness, Malaise Physical Examination - Vital Signs Temperature: 97.0 F Blood Pressure: 171/75 Pulse: 75 Respirations: 18 Pulse Ox (%): 95 - Physical Exam General: Oriented x3, Mild distress, Other (HEAD BANDAGED FOR SCALP LACERATION. ) HEENT: Atraumatic, PERRLA, EOMI Neck: Supple, JVD not distended Respiratory: Clear to auscultation bilaterally, Normal air movement Cardiovascular: Normal pulses, Regular rate/rhythm Gastrointestinal: Normal bowel sounds, No tenderness Musculoskeletal: No tenderness Integumentary: No rashes Neurological: Normal speech, Normal tone, Normal affect Lymphatics: No axilla or inguinal lymphadenopathy - Studies Medications List Reviewed: Yes Assessment And Plan - Current Problems (Diagnosis) (1) Unstable gait Current Visit: Yes Status: Chronic Plan: SHE IS FRAIL AND UNSTEADY. PT HAS BEEN CONSULTED. (2) Rheumatoid arthritis Current Visit: Yes Status: Chronic Qualifiers: Laterality: bilateral (3) Vertigo Current Visit: Yes Status: Chronic Plan: MECLIZINE PO TID. (4) Pseudomembranous colitis Current Visit: Yes Status: Resolved Plan: WILL REDO C DIFF TOXIN STUDY SHE STILL HAS SOFT BM AND NOT DIARRHEA.
[2021-02-16] MEDS: LACTOBACILLUS/ACIDOPHILUS TAB PO SCH ×2 (15:15→20:27)
[2021-02-16] MEDS: MECLIZINE HCL 12.5 MG TAB PO SCH (15:16)
[2021-02-16] MEDS: ROSUVASTATIN 10 MG TAB PO SCH (20:27)
[2021-02-16] MEDS ORDERED: HOME MED 1 EA UNK (Olmesartan Medoxomil [Olmesartan Medoxomil] 40 MG Tablet) PO SCH (21:00)
[2021-02-17] MEDS: MECLIZINE HCL 12.5 MG TAB PO SCH ×3 (00:55→17:37)
[2021-02-17] MEDS: LEVOTHYROXINE SOD 0.1 MG TAB PO SCH (06:00)
[2021-02-17] MEDS: INSULIN -REGULAR HUMAN 50 UNIT/0.5 ML ML SQ SCH ×4 (07:30→21:00)
[2021-02-17] MEDS: FAMCICLOVIR 500 MG PO SCH ×3 (10:21→21:15)
[2021-02-17] MEDS: OFLOXACIN 0.3% OPTH SCH ×3 (10:22→21:16)
[2021-02-17] MEDS: OPTH OPTH SCH ×3 (10:22→21:16)
[2021-02-17] MEDS: methocarbamoL 500 MG TAB PO SCH ×2 (10:22→21:14)
[2021-02-17] MEDS: carvediloL 12.5 MG TAB PO SCH ×2 (10:23→21:14)
[2021-02-17] MEDS: PANTOPRAZOLE 40MG TABLET PO SCH (10:24)
[2021-02-17] MEDS: DULOXETINE 30 MG CAP PO SCH (10:25)
[2021-02-17] MEDS: predniSONE 10 MG TAB PO SCH (10:26)
[2021-02-17] MEDS: GABAPENTIN 100 MG CAP PO SCH ×3 (10:26→21:13)
[2021-02-17] MEDS: HYDROXYCHLOROQUINE 200MG TAB PO SCH (10:27)
[2021-02-17] MEDS: METFORMIN ER 500 MG TAB PO SCH ×2 (10:27→17:37)
[2021-02-17] MEDS: LACTOBACILLUS/ACIDOPHILUS TAB PO SCH ×3 (10:27→21:13)
[2021-02-17] MEDS: FE SULF/FA/VIT B COMP & C TAB PO SCH (10:27)
[2021-02-17] MEDS: BACI/NEOMYCIN/POLY OINT 15GM TOP SCH (10:28)
--- NOTE | 2021-02-17 11:27 | P.DS ---
Admission Date: 02/14/21 Discharge Date: 02/17/21 Disposition: ROUTINE DISCHARGE Discharge Condition: FAIR Reason for Admission: FALLEN AND HAS LACERATION OF SCALP, DIZZY. - Problems (1) Unstable gait Current Visit: Yes Status: Chronic (2) Rheumatoid arthritis Current Visit: Yes Status: Chronic Qualifiers: Laterality: bilateral (3) Vertigo Current Visit: Yes Status: Chronic (4) Pseudomembranous colitis Current Visit: Yes Status: Resolved Hospital Course: MS MARIO IS STABLE, DOING GOOD, SHE IS NOT DIZZY, SHE WAS ABLE TO WALK WITH WALKER. [place] FROM [facility] CALLED AND SAID THAT THERE IS NO INPATIENT DIAGNOSIS. I EXPLAINED TO AND HE AGREED TO TAKE HER HOME WITH HOME HEALTH. USUALLY WITH OBS PATIENTS COST OF STAYING IS TOO HIGH. HE HAS HOME HEALTH TO TAKE CARE OF HER. Vital Signs/Physical Exam: Temp Pulse Resp BP Pulse Ox 96.8 F 69 18 186/85 H 96 02/17/21 08:00 02/17/21 10:23 02/17/21 10:22 02/17/21 10:23 02/17/21 10:22 Laboratory Data at Discharge: WBC 6.20 K/uL (4.3-10.9) 02/15/21 03:20 Hgb 9.0 g/dL (12.0-15.0) L 02/15/21 03:20 Hct 26.8 % (36.0-45.0) L 02/15/21 03:20 Plt Count 221 K/uL (152-406) 02/15/21 03:20 PT 11.5 SECONDS (9.5-12.5) 02/14/21 05:16 INR 1.00 02/14/21 05:16 Sodium 141 mmol/L (136-145) 02/15/21 03:20 Potassium 3.7 mmol/L (3.5-5.1) 02/15/21 03:20 BUN 18 mg/dL (7-18) 02/15/21 03:20 Creatinine 0.72 mg/dL (0.55-1.3) 02/15/21 03:20 Glucose 68 mg/dL (74-106) L 02/15/21 03:20 Magnesium 1.9 mg/dL (1.8-2.4) 02/14/21 05:16 Total Bilirubin 0.3 mg/dL (0.2-1.0) 02/14/21 05:16 AST 15 U/L (15-37) 02/14/21 05:16 ALT 20 U/L (12-78) 02/14/21 05:16 Alkaline Phosphatase 34 U/L (45-117) L 02/14/21 05:16 Home Medications: Levothyroxine [Synthroid*] 100 mcg PO EVPIR2VE 10/27/18 Metformin ER [Glucophage ER*] 500 mg PO BID 10/27/18 Olmesartan Medoxomil 40 mg PO BEDTIME 10/27/18 Omeprazole 25 mg PO DAILY 10/27/18 Rosuvastatin [Crestor*] 5 mg PO BEDTIME 10/27/18 carvediloL [Coreg*] 12.5 mg PO BID 10/27/18 Famciclovir [Famvir] 1 tab PO TID 02/14/21 Gabapentin [Neurontin*] 1 tab PO TID 02/14/21 Hydroxychloroquine [Plaquenil*] 1 tab PO DAILY 02/14/21 Ofloxacin Oph [Floxin Otic 0.3%*] 1 drop EACH EYE TID 02/14/21 predniSONE [Deltasone*] 1 tab PO SEECOM 02/14/21 Insulin -Regular Human [Novolin -R*] See Protocol SQ ACHS ml 02/17/21 Iron/FA/Vit B-Com W/C [Hemocyte Plus*] 1 tab PO DAILY WITH BREAKFAST tab 02/17/21 Meclizine HCl [Antivert*] 25 mg PO BID #60 tab 02/17/21 Physician Discharge Instructions: PROBLEM: Fall GOAL: Clear understanding of disease process INSTRUCTIONS: Ok to discharge home Follow up with Dr. Abernathy in 1 week Continue home medications Contact physician or return to ER for any complications or concerns Call [phone] for any questions regarding hospital stay Diet: Regular Activity: As tolerated [employer] [employer] Services Needed: Home Health Name of Company: Date or Referral: IMMUNIZATION Influenza Vaccine Indicated: Influenza Vaccine Given: Date Given: Pneumonia Vaccine Indicated: Yes Pneumonia Vaccine Given: No Date Given: Followup: Trav Abernathy MD [ACTIVE - CAN ADMIT] - 1 Week
[2021-02-17] MEDS: VALSARTAN 160 MG TAB PO SCH (21:13)
[2021-02-17] MEDS: ROSUVASTATIN 10 MG TAB PO SCH (21:14)
--- NOTE | 2021-02-17 21:41 | RAD REPORT ---
EXAM DESCRIPTION: - CP - 02/17/2021 9:22 pm CLINICAL HISTORY: dizzy Headache, drowsiness COMPARISON: <Comparisons> TECHNIQUE: Real-time sonographic evaluation of both carotid systems was performed. Doppler interroga tion was performed with waveform tracing bilaterally. FINDINGS: Normal high resistance waveforms are noted in both external carotid arteries. The common c arotid arteries and internal carotid arteries show normal low resistance waveforms. No significant plaque formation is seen. Peak systolic and end diastolic velocity values and the ICA/ CCA ratios are in the non-hemodynamically significant range. Antegrade flow seen in both vertebral arteries. IMPRESSION: No significant atherosclerotic changes noted. No evidence of a hemodynamically significant stenosis.
[2021-02-18] MEDS: MECLIZINE HCL 12.5 MG TAB PO SCH ×3 (00:54→17:49)
[2021-02-18] MEDS: LEVOTHYROXINE SOD 0.1 MG TAB PO SCH (05:57)
[2021-02-18] MEDS: INSULIN -REGULAR HUMAN 50 UNIT/0.5 ML ML SQ SCH ×4 (07:30→21:00)
--- NOTE | 2021-02-18 08:45 | RAD REPORT ---
EXAM DESCRIPTION: MRI - Brain W/Wo Cont - 02/18/2021 8:23 am CLINICAL HISTORY: dizziness Headache, drowsiness, CVA symptomology COMPARISON: MRA Head Wo Cont dated 02/18/2021; MRA Neck W/Wo Cont dated 02/18/2021 TECHNIQUE: Multi-sequence, multiplanar MR imaging of the brain was performed with contrast. FINDINGS: No intracranial hemorrhage, hydrocephalus, or extra-axial fluid collection.Moderate genera lized brain atrophy is noted. No edema or shift of midline structures. No intracranial mass. DWI is n egative for acute CVA. The midline structures are normally formed. Mastoid air cells and paranasal sinuses are clear. Thin diffuse pattern of dural enhancement seen. IMPRESSION: Negative for acute CVA or other acute intracranial abnormality. Thin diffuse pattern of dural enhancement likely indicates intracranial hypotension.
--- NOTE | 2021-02-18 09:02 | RAD REPORT ---
EXAM DESCRIPTION: MRI - MRA Head Wo Cont - 02/18/2021 8:40 am CLINICAL HISTORY: dizzy CVA COMPARISON: Brain W/Wo Cont dated 02/18/2021 FINDINGS: 3D noncontrast [id number] MR angiography of the [place] was performed. No aneurysm, flow-limiting stenosis or vascular malformation is seen. Forward flow seen in codominant vertebral arteries. The visualized dural venous sinuses appear patent. IMPRESSION: No significant flow abnormality of the [place] is identified.
--- NOTE | 2021-02-18 09:08 | RAD REPORT ---
EXAM DESCRIPTION: MRI - MRA Neck W/Wo Cont - 02/18/2021 8:40 am CLINICAL HISTORY: DIZZY Headache, drowsiness COMPARISON: No comparisons FINDINGS: Contrast enhance 2D [id number] MR angiography of the neck vessels was performed. A left aortic arch is present with normal great vessel origin pattern noted. Both common carotid [place] and subclavian arteries are widely patent. Both internal carotid artery show no significant sten osis or flow abnormality. Antegrade flow seen in both vertebral arteries. IMPRESSION: No significant flow abnormality of the neck vessels identified.
[2021-02-18] MEDS: DULOXETINE 30 MG CAP PO SCH (10:52)
[2021-02-18] MEDS: HYDROXYCHLOROQUINE 200MG TAB PO SCH (10:52)
[2021-02-18] MEDS: carvediloL 12.5 MG TAB PO SCH ×2 (10:52→21:00)
[2021-02-18] MEDS: PANTOPRAZOLE 40MG TABLET PO SCH (10:53)
[2021-02-18] MEDS: METFORMIN ER 500 MG TAB PO SCH ×2 (10:53→17:49)
[2021-02-18] MEDS: FE SULF/FA/VIT B COMP & C TAB PO SCH (10:53)
[2021-02-18] MEDS: methocarbamoL 500 MG TAB PO SCH ×2 (10:53→21:42)
[2021-02-18] MEDS: GABAPENTIN 100 MG CAP PO SCH ×3 (10:54→21:35)
[2021-02-18] MEDS: LACTOBACILLUS/ACIDOPHILUS TAB PO SCH ×3 (10:55→21:41)
[2021-02-18] MEDS: BACI/NEOMYCIN/POLY OINT 15GM TOP SCH (10:55)
[2021-02-18] MEDS: FAMCICLOVIR 500 MG PO SCH ×3 (11:07→21:42)
[2021-02-18] MEDS: OPTH OPTH SCH ×3 (11:08→21:42)
[2021-02-18] MEDS: OFLOXACIN 0.3% OPTH SCH ×3 (11:08→21:42)
[2021-02-18] MEDS: VALSARTAN 160 MG TAB PO SCH (21:00)
[2021-02-18] MEDS: TRAMADOL HCL 50 MG TAB PO PRN (21:41)
[2021-02-18] MEDS: ROSUVASTATIN 10 MG TAB PO SCH (21:46)
--- NOTE | 2021-02-18 22:05 | CON ---
Reason For Consultation: Consultation called because of a fall and possible syncope. History Of Present Illness: Ms. Chadwick is an 85-year-old right-handed patient, who came in to [facility] after a fall at home from a standing position. She got up to use the bathroom at night and recalls finishing using bathroom, was taking care of her hand washing when she turned, made a turn to the right, then apparently lost her balance, fell backwards and hit the back of her he ad. She said she was out for a short while and when she woke up, she reached to the scalp on the rig ht back head and found she was bleeding. Her who was alerted, came in, emergency services sequeira mmoned and brought her to the emergency room at [facility] where she was found to have a hea d laceration. Her laceration required [address] scan showed no acute fractures or sub luxation of the cervical spine at multiple levels. All those was evaluated and found to be negative for any acute changes. There was moderate risk of a multilevel intervertebral disk height loss due t o spondylosis and 3 mm anterolisthesis of C4 over C3 and retrolisthesis of C5 over C6. Subsequent br ain MRI done the following day to rule out the presence of any acute ischemic or hemorrhagic changes. Brain and neck MRA were unremarkable. She has an EEG pending. Carotid artery ultrasound showed no evidence of hemodynamically significant stenosis. Since her fall, the patient said she does have a sensation if she bends her head forward and lift up that she is in the room that is spinning, even though she is not moving. Despite this, she was able to ambulate about 250 feet with the help of the physical therapist using a gait belt and she said she did not lose her balance or fall despite her mild symptoms of vertigo. Past Medical History: As indicated in addition to diabetes with neuropathy, hypothyroidism, hyperten abner, dyslipidemia, gastroesophageal reflux disease, diverticulosis, rheumatoid arthritis, polymyalgi a rheumatica, chronic anemia, and insomnia. Past Surgical History: Cataract surgery, hysterectomy, bladder suspension, knee surgery, and surgery on the foot and back. Family History: Father had lung cancer. Brother has diabetes. Sister had lung cancer. Social History: No alcohol, tobacco, or IV drug use except for a rare glass of wine. Allergies: CODEINE CAUSES HALLUCINATIONS, NAUSEA, AND VOMITING. Medications: At home, carvedilol 12.5 mg twice daily, cholestyramine 1 pack with water daily, duloxe zaria 30 mg daily, Hemocyte-Plus twice daily, hydroxychloroquine 200 mg twice daily, levothyroxine 100 mcg daily, metformin 500 mg tablets 2 of those twice daily, methocarbamol 500 mg twice daily, omepra zole 40 mg daily, prednisone taper, rosuvastatin 5 mg daily, tramadol as needed, omeprazole 20 mg vilma ly. Review of Systems: Ms. Chadwick denies any recent fevers, chills, nausea, vomiting, arthralgias, myalgias, rash, weight ch cheyanne, headaches, any psychiatric issues or gastrointestinal issues. Physical Examination: Vital Signs: Blood pressure 151/66, pulse 72, respiratory rate 16, temperature 98.2, oxygen saturati on 95%. Weight 126 pounds, height 5 feet 1 inch, BMI 23.8. General: Ms. Chadwick is resting in bed and she actually sat up and was walking to the bathroom with m inor help. HEENT: She does have some redness and healing bruising on the left forehead and right back of her he ad. The sutures are in place and slight swelling in the left face. Otherwise, sclerae are anicteric . Oropharynx is moist. Neck: Supple. Chest: Clear. Heart: Regular. Extremities: No significant edema, cyanosis, or clubbing. Neurologic: She is alert and oriented to situation, place, and person. She follows commands appropr iately. Cranial nerves 2 through 12 show no focal deficits. Motor, upper and lower extremities show no focal deficits. She has 4+/5 strength proximally and distally. Sensory exam, stocking-glove los s to temperature and touch. Reflexes are 1+ in the upper and lower extremities, and symmetric except 0 at the heels. Coordination intact, but slow in upper and lower extremities. Gait, she has a tend ency to drift to the right with ambulation. Laboratory Studies: Complete blood count with differential shows slightly low hemoglobin at 9, other greenberg essentially unremarkable. INR 1.0. Chemistries showed a glucose ranged from 67 to 224. Otherw ise, electrolytes completely normal. Liver function studies unremarkable. COVID-19 test is negative . Assessment: Ms. Chadwick is an 85-year-old patient with syncopal episode, possibly related to the leve l of hydration, however, the etiology is unclear. She has multiple comorbid conditions as mentioned, potentially hypotension may be a contributing factor. She does not have a stroke by MRI or clinical ly, and the patient does have an EEG that is pending. Plan: 1.She may be discharged home. She may have meclizine 25 mg every 8 hours as needed. 2.She was told to perform the Grayson maneuver as needed to help with fatigue and vertigo. 3.She was to walk with a walker at all times. 4.She should follow up with Dr. Ureña's clinic 1 month after discharge. EEG will be reviewed at that point. 5.Continue all medicines for comorbid conditions as directed by Dr. Abernathy. AALIYAH/MALGORZATA Voice ID: [id number] Report ID: [id number]
[2021-02-19] MEDS: carvediloL 12.5 MG TAB PO SCH ×2 (00:30→08:52)
[2021-02-19] MEDS: VALSARTAN 160 MG TAB PO SCH (00:31)
[2021-02-19] MEDS: MECLIZINE HCL 12.5 MG TAB PO SCH ×2 (01:00→08:50)
[2021-02-19] MEDS: LEVOTHYROXINE SOD 0.1 MG TAB PO SCH (07:27)
[2021-02-19] MEDS: INSULIN -REGULAR HUMAN 50 UNIT/0.5 ML ML SQ SCH ×2 (07:30→11:30)
[2021-02-19] MEDS: LACTOBACILLUS/ACIDOPHILUS TAB PO SCH (08:49)
[2021-02-19] MEDS: methocarbamoL 500 MG TAB PO SCH (08:50)
[2021-02-19] MEDS: GABAPENTIN 100 MG CAP PO SCH (08:51)
[2021-02-19] MEDS: DULOXETINE 30 MG CAP PO SCH (08:52)
[2021-02-19] MEDS: FE SULF/FA/VIT B COMP & C TAB PO SCH (08:52)
[2021-02-19] MEDS: PANTOPRAZOLE 40MG TABLET PO SCH (08:52)
[2021-02-19] MEDS: HYDROXYCHLOROQUINE 200MG TAB PO SCH (08:53)
[2021-02-19] MEDS: METFORMIN ER 500 MG TAB PO SCH (08:53)
[2021-02-19] MEDS: FAMCICLOVIR 500 MG PO SCH (08:54)
[2021-02-19] MEDS: OFLOXACIN 0.3% OPTH SCH (08:55)
[2021-02-19] MEDS: BACI/NEOMYCIN/POLY OINT 15GM TOP SCH (08:55)
[2021-02-19] MEDS: OPTH OPTH SCH (08:55)
[2021-02-19 09:19] VITALS: O2SAT 95
[2021-02-19 11:59] VITALS: BP 132/68; TEMP 97.2
--- NOTE | 2021-02-19 12:01 | PN ---
Date of Progress Note: 02/18/2021 Subjective: The patient was seen this morning for followup. Her was with her at bedside. S he still continues to have dizziness, but reports that it is better compared to what it was few days ago after we start meclizine. No nausea. No vomiting. She is participating with physical therapy a nd now able to get out of bed and go to the bathroom with some assistance using walker. Objective: Vital Signs: Reviewed. HEENT: Unremarkable. Right posterior scalp has 4 sutures present. No evidence of any infection, di scharge, bleeding. Lungs: Clear to auscultation. Heart: Sounds normal. Abdomen: Soft. Bowel sounds normal. No guarding, rigidity, tenderness, or distention. Extremities: No leg edema. Impression: 1.Head injury. 2.Dizziness. 3.Hypertension. 4.Anemia. Plan: The patient reports that overall her dizziness is better and the patient and her they both decided that they will go home. They do not want to go anywhere else like any fdc. So [facility] is going to assist with home health care and home physical therapy. Neurology consultat ion with Dr. Ureña will be obtained today and the patient will have MRI today. NIMA/MODL Voice ID: [id number] Report ID: [id number]
--- NOTE | 2021-02-19 22:32 | DS ---
Date of Discharge: 02/19/2021 Disposition: Discharged to go home. Physical Examination: HEENT: Unremarkable except presence of laceration in the right posterior scalp with 4 sutures presen t. No evidence of discharge, bleeding. The left forehead and upper eyelid have pink macular rash, n o vesicles and this is better compared to before and this is from shingles. Lungs: Clear to auscultation. Heart: Sounds normal. Abdomen: Soft. Bowel sounds normal. No guarding, rigidity, tenderness, or distention. Extremities: No leg edema. Discharge Medications And Instructions: 1.Continue prior home medications. 2.Take meclizine 25 mg 1 tablet by mouth 3 times a day. 3.Follow up at my office on 02/25/2021 at 9 a.m. 4.Family to assist the patient with transfer and while ambulating with walker. Laboratory Data: CAT scan of the head and cervical spine was negative for any acute changes. This w as done when she came in. Chest x-ray was unremarkable for any acute intrathoracic change. Carotid artery Doppler was negative for any hemodynamically significant stenotic lesion. An MRI of brain, MR A of neck, and MRA of the brain were unremarkable. No acute changes. No stroke. Hospital Course: This is an 85-year-old female patient, who fell down at home and came into emergenc y room with this fall and head injury. Please see dictated H and P for more information. After the patient was evaluated in the ER, she was admitted to the hospital and she had laceration to her right posterior scalp where she had 4 sutures taken in the emergency room. She had a small laceration deedee t did not require any intervention in her left hand between the index and middle finger. After she w as admitted to the hospital, we consulted Physical Therapy. Day after admission to the hospital, she was medically stable for discharge except her dizziness and the patient and her did not want her to go home because they live themselves and they do not have any extra help. We talked about ge tting arrangements with home health care with home physical therapy and 24-hour caregiver or family m ember to provide 24-hour care at home so that way she can safely ambulate and transfer. The patient and her decided that they did not feel comfortable going home with any such options and they wanted to stay in the hospital. They were made aware of the fact that she was in the hospital as obs ervation and not as an inpatient because of lack of adequate requirement for inpatient hospital stay. They understood that, but they still decided to end up staying in the hospital over the weekend. N eurology consultation was requested as per request from the patient because of her dizziness. She gi ves history of dizziness from time to time and at this time her dizziness started after she fell down , had head injury and this dizziness is indicating vertigo type of symptoms. She was started on mecl izine and it has actually helped her, but she still has some dizziness, but overall she has improved. Today, she was discharged to go home in stable condition. The patient's tells me that her daughter is going to stay with them for the next few days and Social Service was consulted to help ma ke arrangements for home health care and home physical therapy. We will see her as outpatient for mohsen robertson next week. Final Diagnoses: 1.Head injury. 2.Scalp laceration. 3.Vertigo. 4.Left hand laceration. 5.Anemia, chronic. 6.Hypertension. 7.Type 2 diabetes mellitus. 8.Hyperlipidemia, mixed. 9.Peripheral neuropathy. 10.Hypothyroidism. 11.Gastroesophageal reflux disease. 12.Diverticulosis. 13.Rheumatoid arthritis. 14.Polymyalgia rheumatica. 15.Insomnia. NIMA/MODL Voice ID: [id number] Report ID: [id number]
--- NOTE | 2021-02-20 08:06 | EEG ---
CHART: [id number] TEST ID#: [id number] DATE OF STUDY: 02/18/2021 THE EEG WAS RECORDED PORTABEL IN THE PATIENT'S ROOM ON A 17 CHANNEL MACHINE. ELECTRODES WERE APPLIED IN THE USUAL MANNER USING THE INTERNATIONAL 10-20 SYSTEM. THE WAKING BACKGROUND RHYTHM IN THIS RECORD CONSISTS OF WELL DEVELOPED AND WELL ORGANIZED WAVES OF 8.5 HZ., MAXIMAL IN THE POSTERIOR HEAD REGIONS WHICH ATTENUATE NORMALLY WITH EYE OPENING. LOW-VOLTAGE 18-22 HZ ACTIVITY IS EXPRESSED IN THE FRONTAL REGIONS. THERE ARE NO FOCAL OR LATERALIZING FEATURES. NO EPILEPTIFORM ACTIVITY APPEARS. SLEEP OCCURRED NATURALLY. HYPERVENTILATION WAS NOT PERFORMED. PHOTIC STIMULATION PRODUCED POOR DRIVING BILATERALLY. IMPRESSION: NORMAL EEG FOR THE AGE OF THE PATIENT IN [place].
== END 2021-02-19 13:25 | disposition home health service (06) | DRG 605 ==
LOC: ER 04:37 → ERHOLD 06:51 → 4TH 07:42 → OBSVTOIN 02-17 12:55
PROVIDERS: ADMIT Internal Medicine; ATTEND Internal Medicine
DX: S01.01XA Laceration without foreign body of scalp, initial encounter (principal); A04.72 Enterocolitis due to Clostridium difficile, not specified as recurrent; K21.9 Gastro-esophageal reflux disease without esophagitis; D64.9 Anemia, unspecified; E11.42 Type 2 diabetes mellitus with diabetic polyneuropathy; K57.90 Diverticulosis of intestine, part unspecified, without perforation or abscess without bleeding; M19.90 Unspecified osteoarthritis, unspecified site; I10 Essential (primary) hypertension; M35.3 Polymyalgia rheumatica; G47.00 Insomnia, unspecified; E03.9 Hypothyroidism, unspecified; B02.9 Zoster without complications; S09.90XA Unspecified injury of head, initial encounter; S61.412A Laceration without foreign body of left hand, initial encounter; R42 Dizziness and giddiness; R53.81 Other malaise; W18.30XA Fall on same level, unspecified, initial encounter; Z79.890 Hormone replacement therapy; Z79.899 Other long term (current) drug therapy; Z90.710 Acquired absence of both cervix and uterus; Z88.5 Allergy status to narcotic agent; Z79.84 Long term (current) use of oral hypoglycemic drugs; Z20.822 Contact with and (suspected) exposure to COVID-19
CPT/HCPCS: 36415; 70450; 70544; 70549; 70553; 71045; 72125; 80048; 80076; 82947; 83735; 83880; 84484; 85025; 85610; 90471; 90714; 93005; 93880; 95816; 96360; 96361; 97116; 97161; 97530; 99285; A9577; G0378; J2405; J7030; J7512; U0003

== ENCOUNTER 2021-09-30 15:42 | Emergency (ER) | payer OTHER ==
--- OUTSIDE RECORDS SUMMARY | 2021-09-30 15:54 | XMS REPORT | Clinical Summary ---
:1935 Author Organization [facility] MD [facility] Address [address] [place] [address] Care Team Providers Name Role Phone Murtaza Abernathy MD Unavailable MD Marcus Primary Care Provider MD Alonzo Unavailable Allergies Active Allergy Reactions Severity Noted Date Comments Codeine Hives, Other (See Low 03/07/2017 dizzy Comments) FEELS CRAZY PER PT Other reaction( s): Other (See Comments) FEELS CRAZY PER PT Medications Medication Sig Dispensed Refills Start Date End Date Status carvedilol (COREG) 12.5 Take 12.5 mg by 0 03/13/2021 Active mg tablet mouth daily. metFORMIN (GLUCOPHAGE) Take 500 mg by 0 Active 500 mg tablet mouth daily. predniSONE (DELTASONE) 5 Take 5 mg by 0 03/14/2021 Active mg tablet mouth daily. DULoxetine (CYMBALTA) 30 Take 30 mg by 0 Active mg capsule mouth daily. hydrOXYchloroQUINE Take 200 mg by 0 03/13/2021 Active (PLAQUENIL) 200 mg mouth daily. tablet levothyroxine Take 100 mcg by 0 Active (SYNTHROID, LEVOTHROID) mouth daily. 100 mcg tablet olmesartan (BENICAR) 40 Take 40 mg by 0 Active mg tablet mouth daily. omeprazole (PriLOSEC) 20 Take 20 mg by 0 Active mg capsule mouth daily. rosuvastatin (CRESTOR) 5 Take 5 mg by 0 03/13/2021 Active mg tablet mouth daily. Lactobacillus Take by mouth. 0 A ctive acidophilus (PROBIOTIC ORAL) mupirocin (BACTROBAN) 2% Apply topically 30 g 5 Active ointmentIndications: to affected Neoplasm of uncertain area(s) twice behavior of skin daily. levocetirizine (XYZAL) 5 0 06/25/2021 Active MG tablet fluticasone propionate SHAKE LIQUID 0 06/22/2021 Active (FLONASE) 50 mcg/spray AND USE 1 SPRAY nasal spray IN EACH NOSTRIL TWICE DAILY cephalexin (Keflex) 250 Take 1 capsule 20 capsule 0 07/11/2021 Active mg capsuleIndications: (250 mg) by Squamous cell carcinoma mouth twice of skin of left upper daily. limb, including shoulder acetaminophen (TYLENOL) Take 500 mg by 0 Active 500 mg tablet mouth. Centratex 106 mg iron- 1 TAKE ONE 0 07/25/2021 Active mg cap CAPSULE BY MOUTH TWICE DAILY Active Problems No known active problems Encounters Date Type Specialty Care Team Description 09/20/2021 Office Visit Dermatology Chyna Velazquez, Neoplasm of u ncertain behavior of skin (Primary Dx); Squamous juma c 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, including shoulder; Skin cancer scr eening; Personal histor y of other malignant neoplasm of skin; Seborrheic semaj tosis; Hemangioma of s kin; Actinic keratos is 09/20/2021 Travel 08/23/2021 Office Visit Tamela Barnett MD carcinoma of sk in of left upper limb , including shoul amberly 08/23/2021 Travel 07/24/2021 Office Visit Mimi Rosado Basal cell carc inoma of nose (Primary Dx); MD Kinsey 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, including shoulder; Squamous cell c arcinoma in situ 07/24/2021 Travel 07/22/2021 Orders Only Gertrude Palomo Squamous ce ll SHARLENE Bai carcinoma of sk in of left upper limb , including shoul amberly (Primary Dx) 07/22/2021 Telephone Gertrude Palomo RN 07/13/2021 Telephone Charo Ford Call Edil Uribe RN 07/11/2021 Procedure visit Tamela Barnett l c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, including shoulder (Primary Dx); MD Kinsey Basal cell carc inoma of nose 07/11/2021 Travel 2021 Ancillary Radiology Squamous cell Procedure carcinoma of sk in of left upper limb , including shoul amberly 2021 Travel 07/04/2021 Office Visit Mimi Rosado, 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); MD Kinsey 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, including shoulder; Basal cell carc inoma of nose; Neoplasm of unc ertain behavior of skin; Basal cell carc inoma of skin of left upper limb, including shoulder 07/04/2021 Travel 07/01/2021 Telephone Sang Calvert RN 06/28/2021 Orders Only Sang Calvert Basal cell car cinoma of nose; SHARLENE Reardon Squamous cell c arcinoma of moravian; 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, including shoulder 06/28/2021 Telephone Pain Medicine Chyna Velazquez MD 06/27/2021 Telephone Pain Medicine Rina Smith RN 06/21/2021 Office Visit Dermatology Chyna Velazquez, Squamous cell c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, including shoulder (Primary Dx); Neoplasm of [facility] ertain behavior of skin; Skin cancer scr eening; Personal histor y of other malignant neoplasm of skin; Seborrheic semaj tosis; Hemangioma of s kin; Basal cell carc inoma of nose; Squamous cell c arcinoma of skin of other part of face 06/21/2021 NPR Patient Access Chyna Velazquez Services MD 06/21/2021 Travel after 09/30/2020 Surgical History Surgery Date Site/Laterality Comments COLONOSCOPY 10/19/2020 - 10/18/2021 KNEE ARTHROPLASTY 10/19/2015 - 10/18/2016 Medical History Medical History Date Comments Hearing loss 2000 Diverticulitis 2018 Polyp of colon 2020 Anemia 2020 Rheumatoid arthritis 2015 Diabetes mellitus 2000 Herpes zoster 2020 Squamous cell carcinoma in situ of skin Basal cell carcinoma of skin 2020 Family History Medical History Relation Name Comments Lung cancer Father joan philip smoker Relation Name Status Comments Father joan philip Social History Tobacco Use Types Packs/Day Years Used Date Never Smoker 0 0 Smokeless Tobacco: Never Used Alcohol Use Standard Drinks/Week Comments Not Currently 0 (1 standard drink = 0.6 oz pure alcoho l) Sex Assigned at Date Recorded Not on file Job Start Date Occupation Industry Not on file Not on file Not on file COVID-19 Exposure Response Date Recorded In the last month, have you been in contact with No / Unsure 09/20/2021 9:40 AM 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 Obstetrics History Last Filed Vital Signs Vital Sign Reading Time Taken Comments Blood Pressure 176/83 09/20/2021 9:52 notified Fransisca juárez RN AM FOOD PRESERVATION SCIENTIST Pulse 67 09/20/2021 9:52 AM FOOD PRESERVATION SCIENTIST Temperature 36.6 C (97.9 F) 09/20/2021 9:52 AM FOOD PRESERVATION SCIENTIST Respiratory Rate 18 09/20/2021 9:51 AM FOOD PRESERVATION SCIENTIST Oxygen Saturation 96% 08/23/2021 11:23 AM CDT Inhaled Oxygen - - Concentration Weight 65.9 kg (145 lb 4.5 09/20/2021 9:51 oz) AM FOOD PRESERVATION SCIENTIST Height 148.5 cm (4' 10.47") 06/21/2021 9:40 AM CDT Body Mass Index 29.88 06/21/2021 9:40 AM CDT Plan of Treatment Date Type Specialty Care Team Description 10/24/2021 Procedure visit Sulema Barnett MD [address] [place], [place] [address] (Wo rk) 02/14/2022 Office Visit Dermatology Chyna Velazquez M D [address] [place], [place] [address] (Wo rk) Health Maintenance Due Date Last Done Comments COVID-19 Vaccination (1) 1940 Procedures Procedure Name Priority Date/Time Associated Comments Diagnosis PATHOLOGY BIOPSY Routine 09/20/2021 10:18 Neoplasm of Results for this INTERPRETATION AM FOOD PRESERVATION SCIENTIST uncertain behavior procedu re are in of skin the results section. US UPPER EXTREMITY Routine 2021 10:28 Squamous cell Resu lts for this LIMITED LEFT AM CDT carcinoma of skin procedure are in of left upper the results limb, including section. shoulder PATHOLOGY BIOPSY Routine 07/04/2021 9:13 Neoplasm of Results for this INTERPRETATION AM CDT uncertain behavior procedu re are in of skin the results section. PATHOLOGY BIOPSY Routine 06/21/2021 10:57 Neoplasm of Results for this INTERPRETATION AM CDT uncertain behavior procedu re are in of skin the results section. after 09/30/2020 Results Pathology Biopsy Interpretation (09/20/2021 10:18 AM FOOD PRESERVATION SCIENTIST)Only the most recent of 3 resultswithin the time period is included. Pathologist Sig nature Addendum 1 Multiple additional deeper t issue sections have been cut and examined. [facility] Addendum electronically signed Deeper tissue levels show FO SON SQUAMOUS CELL CARCINOMA IN SITU ARISING IN ASSOCIATION WITH HYPERPLASTIC ACTINIC KERATOSIS, TRAUMATIZED PRESENT AT PERIPHERAL AND DEEP TISSUE EDGES. 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 by Roberth Lima MD on See comment. 09/21/2021 at 12 :18 PM Comment An additional biopsy [facility] may be considered should this lesion fail to respond to conservative therapy. Gross Description A: [facility] Skin, r lateral submandibula r jawline - 4-5 mm pink scaly thin papule - ?scc in situ: 1 hdz skin shave, 0.6 x 0.4 x 0.1 cm. The margins are inked, bisected, entirely submitted in A1. ET Disclaimer "Some tests reported [facility] here may have been developed and performance characteristics determined by [facility]. These tests have not been specifically cleared or approved by the U.S. Food and Drug Administration. If applicable, controls were reviewed and showed appropriate reactivity." Specimen Tissue - Skin Performing Organization Address City/State/ZIP Code Phon e Number [facility] [place] [address] [address] [facility] US Upper Extremity Limited Left (2021 10:28 AM CDT) Specimen Impressions [id number] - 2021 11:02 AM CDT Unremarkable ultrasound exam of the left upper extremity antecubital fossa and axillary region. No suspicious lesions or lymphadenopathy. I personally reviewed these image(s) eb perdomo with the resident's/fellow's interpretations, certify that if a procedure was performed I was physically present, and agree with the final report. 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 Indication: Left dorsal hand large 2 x 2 cm squamous cell carcinoma with concern for metastasis, please evaluate left axillary lymph nodes and left antecubital fossa Comparison: None. Technique: Grayscale and color Doppler evaluation of the left upper extremity antecubital fossa and left axilla was performed. Findings: Targeted ultrasound exam of the regions of interest at the antecubital fossa and axillary region did not show any suspicious lesions, fluid collection, or abnormal vascularity. 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 Indication: Left dorsal hand large 2 x 2 cm squamous cell carcinoma with concern for metastasis, please evaluate left axillary lymph nodes and left antecubital fossa Comparison: None. Technique: Grayscale and color Doppler evaluation of the left upper extremity antecubital fossa and left axilla was performed. Findings: Targeted ultrasound exam of the regions of interest at the antecubital fossa and axillary region did not show any suspicious lesions, fluid collection, or abnormal vascularity. A few benign-appearing lymph nodes are s een in the left axilla, measuring up to 0.6 cm IMPRESSION: Unremarkable ultrasound exam of the left upper extremity antecubital fossa and axillary region. No suspicious lesions or lymphadenopathy. I personally reviewed these image(s) eb perdomo with the resident's/fellow's interpretations, certify that if a procedure was performed I was physically present, and agree with the final report. Performing Organization Address City/State/ZIP Code Phon e Number [id number] after 09/30/2020 Insurance Payer Benefit Plan / Subscriber ID Effective Phone Address T ype Group Dates [employer] MEDICARE [id number] 2021-Prese [address] Medicare HEALTHCARE ADVANTAGE [place], [place] [employer] [id number] Care Teams Advanced Seal Delivery System Relationship Specialty Start Date End Date Trav Abernathy MD PCP - External Referring Internal Medicine 06/19/[address] [place] [address] [place] [id number] Chyna Velazquez MD PCP - General Dermatology 06/20/[address] [place] [id number] Kinsey Rosado, PCP - External Follow Up Dermatology 07/04/21 MD Hauser [address] [place] [id number]
--- OUTSIDE RECORDS SUMMARY | 2021-09-30 15:59 | XMS REPORT | Continuity of Care Document ---
:[address] [facility] t Address [address] [place] [address] Care Team Providers Name Role Phone ASHLI Primary Care Physician Unavailable DARIANA Attending Clinician Unavailable SYSTEM, NOT IN Attending Clinician Unavailable Lucille DELANEY Attending Clinician LUCILLE Attending Clinician Unavailable Emmanuel DELANEY Attending Clinician EMMANUEL Attending Clinician Unavailable Bhumika Reyes RN Attending Clinician Unavailable Logan SU, Rony Attending Clinician Alexys Downs RN Attending Clinician Unavailable Luis SU, A Attending Clinician DIMA, K.H. Attending Clinician Unavailable Juan Miguel SU, L Attending Clinician Unavailable Jazmin THOMPSON, Jarett Attending Clinician Beverly DELANEY Attending Clinician Dima DELANEY, K.H. Attending Clinician Demetrius DELANEY Attending Clinician DEMETRIUS Attending Clinician Unavailable Ralf SU, A Attending Clinician Unavailable Kenyetta MCKEE S Attending Clinician Amadeo DELANEY Attending Clinician Amy DELANEY Attending Clinician Traci WALSH Attending Clinician Unavailable DONNA Attending Clinician Unavailable GRACIA Attending Clinician Unavailable HIRAL Attending Clinician Unavailable BORIS Attending Clinician Unavailable STEF Attending Clinician Unavailable JAMES Attending Clinician Unavailable MD Maria Esther THOMPSON Attending Clinician Unavailable DARIANA Admitting Clinician Unavailable Beverly DELANEY Admitting Clinician Amy DELANEY Admitting Clinician HIRAL Admitting Clinician Unavailable JAMES Admitting Clinician Unavailable MD Maria Esther THOMPSON Admitting Clinician Unavailable ALIA BALLARD Admitting Clinician Unavailable Payers Payer Name Policy Type Policy Number Effective Date Expiration Date S lori [facility] [id number] 2020 [facility] [place] 00:00:00 PPO MEDICARE A B [id number] 1998 00:00:00 [employer] TRS RETIREES [id number] 2010 2010 00:00:00 00:00:00 [facility] [id number] 2021 MD Stanley fordon MEDICARE 00:00:00 [facility] MEDICARE [id number] 2021-[address], [place] [address]Medicare [employer] PPO I [id number] 2010 00:00:00 [facility] [id number] 2020 2020 00:00:00 00:00:00 UNITED MEDICARE [id number] 2020 HMO 00:00:00 Advance Directives Directive Decision Effective Termination Comments Source Date Date Healthcare Agents on N/A [facility] Agent Medical RelationshipCommunicationP[facility] Branch [facility] [phone] (Mobile) Problems Condition Condition Condition Status Onset Resolution Last Treating Co mments Source Name Details Category Date Date Treatment Clinician Date Weakness Weakness Disease Active Unive rs 5-22 ity of 00:00: [place] 00 Medical Branch Chronic Chronic Disease Active Univers diastolic diastolic 5-22 ity of congestive [place]ive 00[place] heart heart 00 Medical failure failure Branch Type 2 Type 2 Disease Active Univers diabetes diabetes 5-22 ity of mellitus mellitus 00:00: [place] without without 00 Medical complicati complicati Br anch on, on, without without long-term long-term current current use of use of insulin insulin 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 C. Disease Active Univers difficile difficile 03-09 ity of colitis colitis 00:00: Medical Branch Chest pain Chest pain Disease Active U nivers in adult in adult 03-08 ity of 00:00: [place] Medical [facility] Complicate Complicate Disease Active U nivers d UTI d UTI 02-21 ity of (urinary (urinary 00:00: [place] tract tract 00 Medical infection) infection) Br anch PAF PAF Disease Active Univers (paroxysma (paroxysma 02-21 it y of l atrial l atrial 00:00: [place] fibrillati fibrillati 00 Me dical on) on) Branch Essential Essential Disease Active Uni vers hypertensi hypertensi 02-21 it y of on on 00:00: [place] [facility] Dyslipidem Dyslipidem Disease Active U nivers ia ia 02-21 ity of 00:00: [place] [facility] Elevated Elevated Disease Active Unive rs brain brain 02-21 ity of natriureti natriureti 00:[place] c peptide c peptide 00 Medi eduar (BNP) (BNP) Branch level level Type 2 Type 2 Disease Active Univers diabetes diabetes 02-21 ity of mellitus mellitus 00:00: [place] with other with other 00 Me dical specified specified Bran ch complicati complicati on on 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 Active Uni vers other other 02-21 ity of chronic chronic 00:00: [place] diseases diseases 00 Medica l classified classified Br anch elsewhere elsewhere Atrial Atrial Disease Active Univers fibrillati fibrillati 02-20 it y of on with on with 00:00: [place] RVR RVR 00 Medical Branch Allergies, Adverse Reactions, Alerts Allergy Allergy Status Severity Reaction(s) Onset Inactive Treating Comm ents Source Name Type Date Date Clinician CODEINE DRUG Active Hives Univers INGREDI 02-20 ity of 00:00: [place] 00 Medical Branch Codeine Propensi Active dizzy Univers ty to 05 ity of adverse 00:00: [place] reaction 00 Medical s Branch CODEINE Allergy Active [facility] NO KNOWN Allergy Active [facility] Family History Family Member Diagnosis Comments Start Date Stop Date Source Natural father Lung cancer MD Louise on Social History Social Habit Start Date Stop Date Quantity Comments Source Exposure to Not sure MD Carey SARS-CoV-2 (event) Alcohol intake 2021-07-03 2021-07-03 Ex-drinker MD Bakari bill 00:00:00 00:00:00 (finding) Tobacco use and 2021-06-21 2021-06-21 Smokeless tobacco MD Carey exposure 00:00:00 00:00:00 non-user History SDOH 2021-03-08 2021-03-08 17 University o f Education 00:00:00 00:00:00 [facility] Sex Assigned At [birth year] MD Louise on 00:00:00 00:00:00 Smoking Status Start Date Stop Date Source Never smoker [facility] Medications Ordered Filled Start Stop Current Ordering Indication Dosage Frequency Signature Comments Components Source Medication Medication Date Date Medication? Clinician (SIG) Name Name metFORMIN 2020-10 Yes 500mg Take 500 MD (GLUCOPHAGE 2-03 mg by Anderso ) 500 mg 09:58: mouth n tablet 05 daily. DULoxetine 2020-10 Yes 30mg Take 30 mg M D (CYMBALTA) 2-03 by mouth Todd so 30 mg 09:58: daily. n capsule 05 levothyroxi 2020-10 Yes 100ug Take 100 M D ne 2-03 mcg by Anderso (SYNTHROID, 09:58: mouth n LEVOTHROID) 05 daily. 100 mcg tablet olmesartan 2020-10 Yes 40mg Take 40 mg M D (BENICAR) 2-03 by mouth Dani o 40 mg 09:58: daily. n tablet 05 omeprazole 2020-10 Yes 20mg Take 20 mg M D (PriLOSEC) 2-03 by mouth Todd so 20 mg 09:58: daily. n capsule 05 Lactobacill 2020-10 Yes Take by MD parra 2-03 mouth. Bakari acidcollins 09:58: n (PROBIOTIC 05 ORAL) acetaminoph 2020-10 Yes 500mg Take 500 M D en 2-03 mg by Anderso (TYLENOL) 09:58: mouth. 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 including shoulder mupirocin Yes Neoplasm of Apply MD (BACTROBAN) 9-16 uncertain topically Anderso 2% ointment 00:00: behavior of to n 00 skin affected area(s) twice daily. levocetiriz Yes MD ine (XYZAL) 9 Anderso 5 MG tablet 00:00: n 00 fluticasone Yes SHAKE MD propionate 9-04 LIQUID AND And erso (FLONASE) 00:00: USE 1 n 50 00 SPRAY IN mcg/spray EACH nasal spray NOSTRIL TWICE DAILY predniSONE Yes [id number] 5mg Take 1 Univers 5 mg tablet 5-27 tablet by ity of 00:00: mouth [place] 00 daily. Medical Branch predniSONE 0 Yes [id number] 5mg Take 1 Univers 5 mg tablet 5-27 tablet by ity of 00:00: mouth [place] 00 daily. Medical Branch predniSONE Yes 5mg Take 5 mg MD (DELTASONE) 5-27 by mouth Stanley rso 5 mg tablet 00:00: daily. n 00 Iron-Folic Yes Take by Uni vers Acid-Mv, 5-26 mouth 2 ity of Min Cmb#15 19:33: (two) [place] (CENTRATEX) 14 times Medical 106 mg daily. Branch iron- 1 mg Cap Iron-Folic Yes Take by Uni vers Acid-Mv, 5-26 mouth 2 ity of Min Cmb#15 19:33: (two) [place] (CENTRATEX) 14 times Medical 106 mg daily. Branch iron- 1 mg Cap famciclovir 2021- No 1{tbl} Take 1 U nivers (FAMVIR 5-26 05-26 tablet by ity of ORAL) 17:25: 00:00 mouth 3 [place] 18 :00 (three) Medical times Branch daily. hydrOXYchlo 2020- No 200mg Take 200 Univers roQUINE 5-26 05-26 mg by ity of (PLAQUENIL) 17:25: 00:00 [place] 200 mg 18 :00 daily. Medical tablet Branch levothyroxi 2020- No 88ug Take 88 Un ignacia ne 88 mcg 5-26 05-26 mcg by ity of tablet 17:25: 00:00 mouth [place] 18 :00 daily. 6AM Medical Branch omeprazole 2020- No 25mg Take 25 mg Univers 20 mg 5-26 05-26 by mouth ity of capsule 17:25: 00:00 daily. [place] 18 :00 Medical Branch rosuvastati 2020- No 5mg Take 5 mg Univers n (CRESTOR) 5-26 05-26 by mouth ity of 5 mg tablet 17:25: 00:00 at [place] 18 :00 bedtime. Medical Branch carvediloL 2020- No 12.5mg Take 12.5 Univers (COREG) 5-26 05-26 mg by ity of 12.5 mg 17:25: 00:00 mouth 2 [place] tablet 18 :00 (two) Medical times Branch daily with meals. metFORMIN 2020- No 500mg Take 500 Un ignacia 500 mg 5-26 05-26 mg by ity of tablet 17:25: 00:00 mouth 2 [place] 18 :00 (two) Medical times Branch daily with meals. DULoxetine 2020- No 30mg Take 30 mg Univers 30 mg 5-26 05-26 by mouth ity of capsule 17:25: 00:00 daily. [place] 18 :00 Medical Branch olmesartan 2020- No 40mg Take 40 mg Univers 40 mg 5-26 05-26 by mouth ity of tablet 17:25: 00:00 daily. [place] 18 :00 Medical Branch famciclovir 2020- No 1{tbl} Take 1 U nivers (FAMVIR 5-26 05-26 tablet by ity of ORAL) 17:25: 00:00 mouth 3 [place] 18 :00 (three) Medical times Branch daily. hydrOXYchlo 2020- No 200mg Take 200 Univers roQUINE 5-26 05-26 mg by ity of (PLAQUENIL) 17:25: 00:00 mouth [place] 200 mg 18 :00 daily. Medical tablet Branch levothyroxi 2020- No 88ug Take 88 Un ignacia ne 88 mcg 5-26 05-26 mcg by ity of tablet 17:25: 00:00 mouth [place] 18 :00 daily. 6AM Medical Branch omeprazole 2020- No 25mg Take 25 mg Univers 20 mg 5-26 05-26 by mouth ity of capsule 17:25: 00:00 daily. [place] 18 :00 Medical Branch rosuvastati 2020- No 5mg Take 5 mg Univers n (CRESTOR) 5-26 05-26 by mouth ity of 5 mg tablet 17:25: 00:00 at [place] 18 :00 bedtime. Medical Branch carvediloL 2020- No 12.5mg Take 12.5 Univers (COREG) 5-26 05-26 mg by ity of 12.5 mg 17:25: 00:00 mouth 2 [place] tablet 18 :00 (two) Medical times Branch daily with meals. famciclovir 2020- No 1{tbl} Take 1 U nivers (FAMVIR 5-26 05-26 tablet by ity of ORAL) 17:25: 00:00 mouth 3 [place] 18 :00 (three) Medical times Branch daily. hydrOXYchlo 2020- No 200mg Take 200 Univers roQUINE 5-26 05-26 mg by ity of (PLAQUENIL) 17:25: 00:00 mouth [place] 200 mg 18 :00 daily. Medical tablet Branch levothyroxi 2020- No 88ug Take 88 Un ignacia ne 88 mcg 5-26 05-26 mcg by ity of tablet 17:25: 00:00 mouth [place] 18 :00 daily. 6AM Medical Branch omeprazole 2020- No 25mg Take 25 mg Univers 20 mg 5-26 05-26 by mouth ity of capsule 17:25: 00:00 daily. [place] 18 :00 Medical Branch rosuvastati 2020- No 5mg Take 5 mg Univers n (CRESTOR) 5-26 05-26 by mouth ity of 5 mg tablet 17:25: 00:00 at [place] 18 :00 bedtime. Medical Branch carvediloL 2020- No 12.5mg Take 12.5 Univers (COREG) 5-26 05-26 mg by ity of 12.5 mg 17:25: 00:00 mouth 2 [place] tablet 18 :00 (two) Medical times Branch daily with meals. hydrOXYchlo Yes [id number] 200mg Take 1 Univers roQUINE 5-26 tablet by ity of (PLAQUENIL) 00:00: mouth [place] 200 mg 00 daily. Medical tablet Branch rosuvastati Yes [id number] 5mg Take 1 Univers n (CRESTOR) 5-26 tablet by ity of 5 mg tablet 00:00: [place] 00 bedtime. Medical Branch carvediloL Yes [id number] 12.5mg Take 1 Univers (COREG) 5-26 tablet by ity of 12.5 mg 00:00: mouth 2 [place] tablet 00 (two) Medical times Branch daily with meals. levothyroxi Yes [id number] 88ug Take 1 Univers ne 88 mcg 5-26 tablet by ity o f tablet 00:00: mouth [place] 00 every Medical morning. Branch 6AM lactobacill Yes [id number] 1{tbl} Take 1 Univers us 5-26 tablet by ity of acidophilus 00:00: mouth 2 [place] 25 million 00 (two) Medical cell -100 times Branch mg captab daily. hydrOXYchlo Yes [id number] 200mg Take 1 Univers roQUINE 5-26 tablet by ity of (PLAQUENIL) 00:00: mouth [place] 200 mg 00 daily. Medical tablet Branch rosuvastati Yes [id number] 5mg Take 1 Univers n (CRESTOR) 5-26 tablet by ity of 5 mg tablet 00:00: mouth [place] 00 bedtime. Medical Branch carvediloL Yes [id number] 12.5mg Take 1 Univers (COREG) 5-26 tablet by ity of 12.5 mg 00:00: mouth 2 [place] tablet 00 (two) Medical times Branch daily with meals. levothyroxi Yes [id number] 88ug Take 1 Univers ne 88 mcg 5-26 tablet by ity o f tablet 00:00: mouth [place] 00 every Medical morning. Branch 6AM lactobacill Yes [id number] 1{tbl} Take 1 Univers us 5-26 tablet by ity of acidophilus 00:00: mouth 2 [place] 25 million 00 (two) Medical cell -100 times Branch mg captab daily. carvedilol Yes 12.5mg Take 12.5 MD (COREG) 5-26 mg by Anderso 12.5 mg 00:00: mouth n tablet 00 daily. hydrOXYchlo Yes 200mg Take 200 M D roQUINE 5-26 mg by Anderso (PLAQUENIL) 00:00: mouth n 200 mg 00 daily. tablet rosuvastati Yes 5mg Take 5 mg M D n (CRESTOR) 5-26 by mouth Stanley rso 5 mg tablet 00:00: daily. n 00 furosemide 2020- No [id number] 20mg Take 1 Univers 20 mg 5-26 06-26 tablet by ity of tablet 00:00: 04:59 mouth [place] 00 :00 daily for Medical 30 days. Branch KCL 10 mEq 2020- No [id number] 20meq Take 2 Univers tablet 5-26 06-26 tablets by ity of 00:00: 04:59 mouth [place] 00 :00 daily for Medical 30 days. Branch furosemide 2020- No [id number] 20mg Take 1 Univers 20 mg 5-26 06-26 tablet by ity of tablet 00:00: 04:59 mouth [place] 00 :00 daily for Medical 30 days. Branch KCL 10 mEq 2020- No [id number] 20meq Take 2 Univers tablet 5-26 06-26 tablets by ity of 00:00: 04:59 mouth [place] 00 :00 daily for Medical 30 days. Branch vancomycin 2020- No [id number] Take 1 Univers 125 mg 5-26 06-20 capsule by ity of capsule 00:00: 04:59 mouth 4 [place] 00 :00 (four) Medical times Branch daily for 10 days, THEN 1 capsule 2 (two) times daily for 7 days, THEN 1 capsule daily for 7 days. vancomycin 2020- No [id number] Take 1 Univers 125 mg 5-26 06-20 capsule by ity of capsule 00:00: 04:59 mouth 4 [place] 00 :00 (four) Medical times Branch daily for 10 days, THEN 1 capsule 2 (two) times daily for 7 days, THEN 1 capsule daily for 7 days. KCL 2020- No 40meq 40 mEq, Univers (KLOR-CON 03-12-26 Oral, BID, ity of M20) tablet 01:15: 00:51 First dose [place] 40 mEq 00 :56 (after Medical last Branch modificati on) on Thu03/11/21 at 2015, Until Discontinu ed, Routine KCL 2020- No 40meq 40 mEq, Univers (KLOR-CON 03-11- Oral, ity of M20) tablet 20:45: 01:04 DAILY, [place] 40 mEq 00 :19 First dose Medical on Mon Branch 03/11/21 at 1545, Until Discontinu ed, Routine vancomycin 2020- No 250mg 250 mg, Un ignacia (VANCOCIN) 03-09 06-05 Oral, QID, it y of capsule 250 22:00: 00:59 53 doses, [place] mg 00 :00 First dose Medical (after Branch last modificati on) on 03/09/21 at 1700, Last dose on Thu03/22/21 at 1600, Routine
Reason for Anti-Infec tive: Documented Infection< br>Documen roxanna Infection Site: Abdominal< br>Duratio n of Therapy: 14 days Sliding Yes Subcutaneo Univ ers Scale 03-09 us, TID ity of Insulin - 17:00: MEALS+HS, [place] as Lispro 00 First dose Medical (HumaLOG) + on Sat Branch Fsbg 03/09/21 at Testing 1200, Until Discontinu ed, Routine hydrOXYchlo Yes 200mg 200 mg, Un ignacia roQUINE - Oral, ity of (PLAQUENIL) 16:15: DAILY, [place] tablet 200 00 First dose Med ical mg on Sat Branch 03/09/21 at 1115, Until Discontinu ed, Routine
Indicatio n: Rheumatic disorder predniSONE Yes 5mg 5 mg, Univer s (DELTASONE) 03-09 Oral, ity of tablet 5 mg 16:15: DAILY, [place] 00 First dose Medical on [facility] 03/09/21 at 1115, Until Discontinu ed, Routine omeprazole No 20mg 20 mg, Univ ers (PRILOSEC) 03-0924 Oral, ity of capsule 20 14:00: 20:28 DAILY, [place] mg 00 :14 First dose Medical on [facility] 03/09/21 at 0900, Until Discontinu ed, Routine carvediloL Yes 12.5mg 12.5 mg, U nivers (COREG) 03-09 Oral, BID ity of tablet 12.5 13:00: MEALS, [place] mg 00 First dose Medical on [facility] 03/09/21 at 0800, Until Discontinu ed, Routine vancomycin No 125mg 125 mg, Un ignacia (VANCOCIN) 03-0922 Oral, QID, it y of capsule 125 13:00: 21:36 56 doses, [place] mg 00 :50 First dose Medical on [facility] 03/09/21 at 0800, Last dose on Thu03/22/21 at 2000, Routine
Reason for Anti-Infec tive: Documented Infection< br>Documen roxanna Infection Site: Abdominal< br>Duratio n of Therapy: 14 days levothyroxi Yes 88ug 88 mcg, Uni vers ne 03-09 Oral, ity of (SYNTHROID) 11:00: QAM-0600, [place] tablet 88 00 First dose Medi eduar mcg on [facility] 03/09/21 at 0600, Until Discontinu ed, Routine rosuvastati Yes 5mg 5 mg, Unive rs n (CRESTOR) 03-09 Oral, QHS, it y of tablet 5 mg 02:00: First dose [place] 00 on [facility] 03/08/21 at Branch 2100, Until Discontinu ed, Routine enoxaparin Yes 40mg 40 mg, Unive rs (LOVENOX) 03-08 Subcutaneo ity of injection 22:00: us, DAILY, [place] 40 mg 00 First dose Medical on [facility] [place] 03/08/21 at 1700, Until Discontinu ed, Routine acetaminoph Yes 650mg 650 mg, Un ignacia en 03-08 Oral, ity of (TYLENOL) 19:47: Q6HPRN, [place] tablet 650 32 Starting Medic al mg Fri Branch 03/08/21 at 1447, Until Discontinu ed, Routine, Pain (scale 1-3) FENTanyl PF 2020- No 50ug 50 mcg, Un ignacia (SUBLIMAZE 03-08 Slow IV ity o f (PF)) 19:45: 18:50 Push, [place] injection 00 :00 ONCE, 1 Medical 50 mcg dose, Fri Branch 03/08/21 at 1445, Routine NaCl 0.9% 2020- No 250mL at 50 Unive rs (NS) IV 03-08 mL/hr, IV ity of infusion 18:30: 17:46 Infusion, [place] 250 mL 00 :00 ONCE, 1 Medical dose, Fri Branch 03/08/21 at 1330, Routine potassium 2020- No 10meq 10 mEq, IV Univers chloride in 03-08 Piggyback, i ty of water 10 18:30: 18:46 ONCE, 1 [place] mEq/100 mL 00 :00 dose, Fri Medi eduar RTU 10 mEq 03/08/21 at [facility] 1330, 100 mL KCL 2020- No 40meq 40 mEq, Univers (KLOR-CON 03-08 Oral, ity of M20) tablet 18:30: 17:46 ONCE, 1 [place] 40 mEq 00 :00 dose, Fri Medical 03/08/21 at Branch 1330, Routine FENTanyl PF 2020- No 50ug 50 mcg, Un ignacia (SUBLIMAZE 03-08 Slow IV ity o f (PF)) 18:15: 17:47 Push, [place] injection 00 :00 ONCE, 1 Medical 50 mcg dose, Fri Branch 03/08/21 at 1315, Routine iohexol 2020- No [id number] 100mL 100 mL, Univers (OMNIPAQUE 03-08 Intravenou it y of 350 17:25: 17:25 s, ONCE, 1 [place] BULK-100 00 :00 dose, Fri Medica l mL) 03/08/21 at Branch injection 1245, 100 mL Routine olmesartan 0 Yes 40mg Take 40 mg U nivers 40 mg 5-19 by mouth ity of tablet 19:02: daily. [address] Iron-Folic Yes Take by Uni vers Acid-Mv, 5-19 mouth 2 ity of Min Cmb#15 19:02: (two) [place] (CENTRATEX) 37 times Medical 106 mg daily. [place] iron- 1 mg Cap olmesartan 0 Yes 40mg Take 40 mg U nivers 40 mg 5-19 by mouth ity of tablet 19:02: daily. [address] Iron-Folic Yes Take by Uni vers Acid-Mv, 5-19 mouth 2 ity of Min Cmb#15 19:02: (two) [place] (CENTRATEX) 37 times Medical 106 mg daily. [place] iron- 1 mg Cap olmesartan Yes 40mg Take 40 mg U nivers 40 mg 5-19 by mouth ity of tablet 19:02: daily. [address] Iron-Folic Yes Take by Uni vers Acid-Mv, 5-19 mouth 2 ity of Min Cmb#15 19:02: (two) [place] (CENTRATEX) 37 times Medical 106 mg daily. [place] iron- 1 mg Cap levothyroxi Yes 88ug Take 88 Uni vers ne 88 mcg 5-19 mcg by ity of tablet 19:01: mouth [place] [address] [place] [address] metFORMIN 0 Yes 500mg Take 500 Uni vers 500 mg 5-19 mg by ity of tablet 19:01: mouth 2 [place] [address] (two) [facility] daily with meals. DULoxetine 0 Yes 30mg Take 30 mg U nivers 30 mg 5-19 by mouth ity of capsule 19:01: daily. [address] levothyroxi 0 Yes 88ug Take 88 Uni vers ne 88 mcg 5-19 mcg by ity of tablet 19:01: mouth [place] [address] [place] [address] metFORMIN 2020-0 Yes 500mg Take 500 Uni vers 500 mg 5-19 mg by ity of tablet 19:01: mouth 2 [place] [address] (two) [facility] daily with meals. DULoxetine 2020-0 Yes 30mg Take 30 mg U nivers 30 mg 5-19 by mouth ity of capsule 19:01: daily. [address] Branch levothyroxi 2020- Yes 88ug Take 88 Uni vers ne 88 mcg 5-19 mcg by ity of tablet 19:01: mouth [place] [address] daily. 6AM Medical Branch metFORMIN 2020-0 Yes 500mg Take 500 Uni vers 500 mg 5-19 mg by ity of tablet 19:01: mouth 2 [place] [address] (two) Medical times [place] daily with meals. DULoxetine 2020- Yes 30mg Take 30 mg U nivers 30 mg 5-19 by mouth ity of capsule 19:01: daily. [address] famciclovir 2020-0 Yes 1{tbl} Take 1 Un ignacia (FAMVIR 5-19 tablet by ity of ORAL) 19:00: mouth 3 [place] [address] (three) Medical times Branch daily. famciclovir 2020-0 Yes 1{tbl} Take 1 Un ignacia (FAMVIR 5-19 tablet by ity of ORAL) 19:00: mouth [address] [place] [address] (three) Medical times Branch daily. famciclovir 2020-0 Yes 1{tbl} Take 1 Un ignacia (FAMVIR 5-19 tablet by ity of ORAL) 19:00: mouth 3 [place] [address] (three) Medical times Branch daily. GABAPENTIN 2020-0 2020- No 100mg Take 100 U nivers ORAL 5-19 05-19 mg by ity of 18:59: 00:00 mouth 3 [place] 52 :00 (three) Medical times Branch daily. GABAPENTIN 2020-0 2020- No 100mg Take 100 U nivers ORAL 5-19 05-19 mg by ity of 18:59: 00:[address] [place] [address] 52 :00 (three) Medical times Branch daily. GABAPENTIN 2020-0 2020- No 100mg Take 100 U nivers ORAL 5-19 05-19 mg by ity of 18:59: 00:00 mouth 3 [place] 52 :00 (three) Medical times Branch daily. GABAPENTIN 2020-0 2020- No 100mg Take 100 U nivers ORAL 5-19 05-19 mg by ity of 18:59: 00:00 mouth 3 [place] 52 :00 (three) Medical times Branch daily. ofloxacin 2020-0 202- No 1[drp] Place 1 Un ignacia 0.3 % 5-19 05-19 Drop in ity of ophthalmic 18:59: 00:00 left eye 3 [place] solution 49 :00 (three) Medical times Branch daily. ofloxacin 2020-0 2020- No 1[drp] Place 1 Un ignacia 0.3 % 5-19 05-19 Drop in ity of ophthalmic 18:59: 00:00 left eye 3 [place] solution 49 :00 (three) Medical times Branch daily. ofloxacin 2020-0 2020- No 1[drp] Place 1 Un ignacia 0.3 % 5-19 05-19 Drop in ity of ophthalmic 18:59: 00:00 left eye 3 [place] solution 49 :00 (three) Medical times Branch daily. ofloxacin 2020-0 2020- No 1[drp] Place 1 Un ignacia 0.3 % 5-19 05-19 Drop in ity of ophthalmic 18:59: 00:00 left eye 3 [place] solution 49 :00 (three) Medical times Branch daily. hydrOXYchlo 0 Yes 200mg Take 200 U nivers roQUINE 5-19 mg by ity of (PLAQUENIL) 18:56: mouth [place] 200 mg 05 daily. Medical tablet Branch omeprazole 0 Yes 25mg Take 25 mg U nivers 20 mg 5-19 by mouth ity of capsule 18:56: daily. [place] [address] Medical Branch rosuvastati 0 Yes 5mg Take 5 mg U nivers n (CRESTOR) 5-19 by mouth ity of 5 mg tablet 18:56: at [place] [address] bedtime. Medical Branch carvediloL Yes 12.5mg Take 12.5 Univers (COREG) 5-19 mg by ity of 12.5 mg 18:56: mouth 2 [place] tablet 05 (two) Medical times Branch daily with meals. hydrOXYchlo 0 Yes 200mg Take 200 U nivers roQUINE 5-19 mg by ity of (PLAQUENIL) 18:56: mouth [place] 200 mg 05 daily. Medical tablet Branch omeprazole 0 Yes 25mg Take 25 mg U nivers 20 mg 5-19 by mouth ity of capsule 18:56: daily. [place] [address] Medical Branch rosuvastati 2020-0 Yes 5mg Take 5 mg U nivers n (CRESTOR) 5-19 by mouth ity of 5 mg tablet 18:56: at [place] 05 bedtime. Medical Branch carvediloL Yes 12.5mg Take 12.5 Univers (COREG) 5-19 mg by ity of 12.5 mg 18:56: mouth 2 [place] tablet 05 (two) Medical times Branch daily with meals. hydrOXYchlo Yes 200mg Take 200 U nivers roQUINE 5-19 mg by ity of (PLAQUENIL) 18:56: mouth [place] 200 mg 05 daily. Medical tablet Branch omeprazole Yes 25mg Take 25 mg U nivers 20 mg 5-19 by mouth ity of capsule 18:56: daily. [place] [address] Medical Branch rosuvastati Yes 5mg Take 5 mg U nivers n (CRESTOR) 5-19 by mouth ity of 5 mg tablet 18:56: at [place] 05 bedtime. Medical Branch carvediloL Yes 12.5mg Take 12.5 Univers (COREG) 5-19 mg by ity of 12.5 mg 18:56: mouth 2 [place] tablet 05 (two) Medical times [place] daily with meals. furosemide Yes [id number] 40mg Take 1 [facility] 40 mg 5-19 tablet by ity of tablet 00:00: mouth [place] 00 daily. Medical Branch furosemide Yes [id number] 40mg Take 1 [facility] 40 mg 5-19 tablet by ity of tablet 00:00: mouth [place] 00 daily. Medical Branch furosemide Yes [id number] 40mg Take 1 [facility] 40 mg 5-19 tablet by ity of tablet 00:00: mouth [place] 00 daily. Medical Branch KCL 20 mEq 2020- No [id number] 20meq Take 1 [facility] tablet 5-19 06-19 tablet by ity of 00:00: 04:59 mouth [place] 00 :00 daily for Medical 30 days. Branch KCL 20 mEq 2020-0 2020- No [id number] 20meq Take 1 [facility] tablet 5-19 06-19 tablet by ity of 00:00: 04:59 mouth [place] 00 :00 daily for Medical 30 days. Branch KCL 20 mEq 2020- No [id number] 20meq Take 1 [facility] tablet 5-19 06-19 tablet by ity of 00:00: 04:59 mouth [place] 00 :00 daily for Medical 30 days. Branch furosemide 2020- No [id number] 40mg Take 1 [facility] 40 mg 5-19 05-26 tablet by ity of tablet 00:00: 00:00 mouth [place] 00 :00 daily. Medical Branch KCL 20 mEq 2020- No [id number] 20meq Take 1 [facility] tablet 5-19 05-26 tablet by ity of 00:00: 00:00 mouth [place] 00 :00 daily for Medical 30 days. Branch famciclovir Yes 1{tbl} Take 1 [facility] (FAMVIR 5-07 tablet by ity of ORAL) 22:16: mouth 3 [place] 54 (three) Medical times Branch daily. GABAPENTIN Yes 100mg Take 100 Un [facility] ORAL 5-07 mg by ity of 22:16: mouth 3 [place] 54 (three) Medical times Branch daily. hydrOXYchlo Yes 200mg Take 200 U nivers roQUINE 5-07 mg by ity of (PLAQUENIL) 22:16: mouth [place] 200 mg 54 daily. Medical tablet Branch Levothyroxi Yes 100ug Take 100 U nivers ne 100 mcg 5-07 mcg by ity of capsule 22:16: mouth [place] 54 daily. 6AM Medical Branch ofloxacin Yes 1[drp] Place 1 Uni vers 0.3 % 5-07 Drop in ity of ophthalmic 22:16: left eye 3 [place] solution 54 (three) Medical times Branch daily. omeprazole Yes 25mg Take 25 mg U nivers 20 mg 5-07 by mouth ity of capsule 22:16: daily. [place] [address] Medical Branch rosuvastati 0 Yes 5mg Take 5 mg U nivers n (CRESTOR) 5-07 by mouth ity of 5 mg tablet 22:16: at [place] [address] bedtime. Medical Branch carvediloL Yes 12.5mg Take 12.5 Univers (COREG) 5-07 mg by ity of 12.5 mg 22:16: mouth 2 [place] tablet 54 (two) Medical times Branch daily with meals. famciclovir Yes 1{tbl} Take 1 [facility] (FAMVIR 5-07 tablet by ity of ORAL) 22:16: mouth 3 [place] 54 (three) Medical times Branch daily. GABAPENTIN 2020-0 Yes 100mg Take 100 Un [facility] ORAL 5-07 mg by ity of 22:16: mouth 3 [place] 54 (three) Medical times Branch daily. hydrOXYchlo 0 Yes 200mg Take 200 U nivers roQUINE 5-07 mg by ity of (PLAQUENIL) 22:16: mouth [place] 200 mg 54 daily. Medical tablet Branch Levothyroxi 0 Yes 100ug Take 100 U nivers ne 100 mcg 5-07 mcg by ity of capsule 22:16: mouth [place] 54 daily. 6AM Medical Branch ofloxacin Yes 1[drp] Place 1 Uni vers 0.3 % 5-07 Drop in ity of ophthalmic 22:16: left eye 3 [place] solution 54 (three) Medical times Branch daily. omeprazole 0 Yes 25mg Take 25 mg U nivers 20 mg 5-07 by mouth ity of capsule 22:16: daily. [place] 54 Medical Branch rosuvastati 0 Yes 5mg Take 5 mg U nivers n (CRESTOR) 5-07 by mouth ity of 5 mg tablet 22:16: at [place] 54 bedtime. Medical Branch carvediloL 0 Yes 12.5mg Take 12.5 Univers (COREG) 5-07 mg by ity of 12.5 mg 22:16: mouth 2 [place] tablet 54 (two) Medical times Branch daily with meals. famciclovir 0 Yes 1{tbl} Take 1 [facility] (FAMVIR 5-07 tablet by ity of ORAL) 22:16: mouth 3 [place] 54 (three) Medical times Branch daily. GABAPENTIN 2020-0 Yes 100mg Take 100 [facility] ORAL 5-07 mg by ity of 22:16: mouth 3 [place] 54 (three) Medical times Branch daily. hydrOXYchlo 202-0 Yes 200mg Take 200 U nivers roQUINE 5-07 mg by ity of (PLAQUENIL) 22:16: mouth [place] 200 mg 54 daily. Medical tablet Branch Levothyroxi 0 Yes 100ug Take 100 U nivers ne 100 mcg 5-07 mcg by ity of capsule 22:16: mouth [place] 54 daily. 6AM Medical Branch ofloxacin 0 Yes 1[drp] Place 1 Uni vers 0.3 % 5-07 Drop in ity of ophthalmic 22:16: left eye 3 [place] solution 54 (three) Medical times Branch daily. omeprazole Yes 25mg Take 25 mg U nivers 20 mg 5-07 by mouth ity of capsule 22:16: daily. [place] [address] Medical Branch rosuvastati Yes 5mg Take 5 mg U nivers n (CRESTOR) 5-07 by mouth ity of 5 mg tablet 22:16: at [place] [address] bedtime. Medical Branch carvediloL Yes 12.5mg Take 12.5 Univers (COREG) 5-07 mg by ity of 12.5 mg 22:16: mouth 2 [place] tablet 54 (two) Medical times Branch daily with meals. metFORMIN 2020- No 500mg Take 500 [facility] 500 mg - 05-07 mg by ity of tablet 20:47: 00:00 mouth 2 [place] 14 :00 (two) Medical times Branch daily with meals. olmesartan 2020- No 40mg Take 40 mg Univers 40 mg 02-22-07 by mouth ity of tablet 20:47: 00:00 daily. [place] 14 :00 OLMESARTAN Medical MEDOXOMIL Branch predniSONE 2020- No 20mg Take 20 mg Univers 20 mg 02-22-07 by mouth ity of tablet 20:47: 00:00 daily. 3 [place] 14 :00 TABS DAILY Medical FOR 3 Branch DAYS, THEN 2 TABLETS BY MOUTH FOR 3 DAYS LAST TAKEN 5.2.21 sulfur 2020- No [id number] 5mL 5 mL, Un [facility] hexafluorid 02-22 05-07 9109 Intravenou i ty of e microsphr 18:15: 18:15 s, ONCE, 1 [place] (LUMASON) 00 :00 dose, Fri Medic al injection 5 02/22/21 at [facility] mL 1315, Routine
manufacturing team member approving Restricted medication : KERA CH Sliding Yes Subcutaneo Univ ers Scale 5-07 us, TID ity of Insulin - 03:30: MEALS+HS, Aniceto as Lispro 00 First dose Medical (HumaLOG) + on [place] Branch Fsbg 02/21/21 at Testing 2230, Until Discontinu ed, Routine prednisoLON Yes [id number] 1[drp] Place 1 Univers E acetate 1 5-07 Drop in ity o f % 00:00: left eye 4 [place] ophthalmic 00 (four) Medical suspension times Branch drops daily. prednisoLON Yes [id number] 1[drp] Place 1 Univers E acetate 1 5-07 Drop in ity o f % 00:00: left eye 4 [place] ophthalmic 00 (four) Medical suspension times Branch drops daily. lactobacill 2020- No [id number] 1{tbl} Take 1 Univers us 5-07 06-07 tablet by ity of acidophilus 00:00: 04:59 mouth 2 [place] 25 million 00 :00 (two) Medical cell -100 times Branch mg captab daily for 30 days. lactobacill 2020- No [id number] 1{tbl} Take 1 Univers us 5-07 06-07 tablet by ity of acidophilus 00:00: 04:59 mouth 2 [place] 25 million 00 :00 (two) Medical cell -100 times Branch mg captab daily for 30 days. lactobacill 2020- No [id number] 1{tbl} Take 1 Univers us 5-07 06-07 tablet by ity of acidophilus 00:00: 04:59 mouth 2 [place] 25 million 00 :00 (two) Medical cell -100 times Branch mg captab daily for 30 days. lactobacill 2020- No [id number] 1{tbl} Take 1 [facility] us 5-07 06-07 tablet by ity of acidophilus 00:00: 04:59 mouth 2 [place] 25 million 00 :00 (two) Medical cell -100 times Branch mg captab daily for 30 days. lactobacill 2020- No [id number] 1{tbl} Take 1 Univers us 5-07 06-07 tablet by ity of acidophilus 00:00: 04:59 mouth 2 [place] 25 [place] 00 :00 (two) Medical cell -100 times Branch mg captab daily for 30 days. lactobacill 2020- No [id number] 1{tbl} Take 1 [facility] us 5-07 06-07 tablet by ity of acidophilus 00:00: 04:59 mouth 2 [place] 25 [place] 00 :00 (two) Medical cell -100 times Branch mg captab daily for 30 days. lactobacill 2020- No [id number] 1{tbl} Take 1 Univers us 5-07 05-26 tablet by ity of acidophilus 00:00: 00:00 mouth 2 [place] 25 [place] 00 :00 (two) Medical cell -100 times Branch mg captab daily for 30 days. lactobacill 2020- No [id number] 1{tbl} Take 1 Univers us 5-07 05-26 tablet by ity of acidophilus 00:00: 00:00 mouth 2 [place] 25 [place] 00 :00 (two) Medical cell -100 times Branch mg captab daily for 30 days. lactobacill 2020- No [id number] 1{tbl} Take 1 Univers us 5-07 05-26 tablet by ity of acidophilus 00:00: 00:00 mouth 2 [place] 25 [place] 00 :00 (two) Medical cell -100 times Branch mg captab daily for 30 days. prednisoLON 2020- No [id number] 1[drp] Place 1 Univers E acetate 1 5-07 05-19 Drop in ity of % 00:00: 00:00 left eye 4 [place] ophthalmic 00 :00 (four) Medical suspension times Branch drops daily. prednisoLON 2020- No [id number] 1[drp] Place 1 Univers E acetate 1 5-07 05-19 Drop in ity of % 00:00: 00:00 left eye 4 [place] ophthalmic 00 :00 (four) Medical suspension times Branch drops daily. prednisoLON 2020- No [id number] 1[drp] Place 1 Univers E acetate 1 5-07 05-19 Drop in ity of % 00:00: 00:00 left eye 4 [place] ophthalmic 00 :00 (four) Medical suspension times Branch drops daily. prednisoLON 2020- No [id number] 1[drp] Place 1 Univers E acetate 1 5-07 05-19 Drop in ity of % 00:00: 00:00 left eye 4 [place] ophthalmic 00 :00 (four) Medical suspension times Branch drops daily. levoFLOXaci 2020- No [id number] 500mg Take 1 Univers n 500 mg 02-22 05-10 tablet by ity o f tablet 00:00: 04:59 mouth [place] 00 :00 every 24 Medical ([facility] ur) hours for 2 days. KCL Yes 20meq 20 mEq, Univers (KLOR-CON 02-21 Oral, ity of M20) tablet 14:00: DAILY, [place] 20 mEq 00 First dose Medical on [facility] 02/21/21 at 0900, Until Discontinu ed, Routine omeprazole Yes 20mg 20 mg, Unive rs (PRILOSEC) 02-21 Oral, ity of capsule 20 14:00: DAILY, [place] mg 00 First dose Medical on [facility] 02/21/21 at 0900, Until Discontinu ed, Routine hydrOXYchlo Yes 200mg 200 mg, Un ign[facility] roQUINE 02-21 Oral, ity of (PLAQUENIL) 14:00: DAILY, [place] tablet 200 00 First dose Med ical mg on [facility] 02/21/21 at 0900, Until Discontinu ed, Routine
Indicatio n: Rheumatic disorder enoxaparin Yes 30mg 30 mg, Unive rs (LOVENOX) 02-21 Subcutaneo ity of injection 14:00: us, DAILY, [place] 30 mg 00 First dose Medical on [facility] 02/21/21 at 0900, Until Discontinu ed, Routine levothyroxi Yes 100ug 100 mcg, U nivers ne 02-21 Oral, ity of (SYNTHROID) 11:00: QAM-0600, [place] tablet 100 00 First dose Med ical mcg on [facility] 02/21/21 at 0600, Until Discontinu ed iohexol 2020- No [id number] 120mL 120 mL, U nivers (OMNIPAQUE 02-21 Intravenou it y of 350 09:15: 09:15 s, ONCE, 1 [place] BULK-150 00 :00 dose, [place] Medica l mL) 02/21/21 at Branch injection 0415, 120 mL Routine NaCl 0.9% 2020- No 500mL at 999 Univ ers (NS) bolus 5-06 05-06 mL/hr, 500 it y of infusion 07:30: 06:35 mL, IV [place] 500 mL 00 :00 Piggyback, Medical ONCE, 1 Branch dose, [place] 02/21/21 at 0230, STAT methylpredn No 60mg 60 mg, Uni vers isolone sod 02-21-06 Slow IV ity of succ 07:30: 06:26 Push, ONCE [place] (SOLU-MEDRO 00 :00 NOW, 1 Medica l L) dose, [place] Branch injection 02/21/21 at 60 mg 0230, KIRSTY KCL 2020- No IV Univers (POTASSIUM 02-21-06 Infusion, ity of CHLORIDE) 07:15: 12:13 CONTINUOUS [place] 20 mEq in 00 :19 , Starting Medi eduar D5W 0.9% [place] 02/21/21 Bran h NaCl (NS) at 0215, 1,000 mL IV Until [place] Solution 02/21/21 at 0713, 1,000 mL, at 125 mL/hr haloperidol 2020- No 5mg 5 mg, Slow Univers lactate 02-21- IV Push, ity of (HALDOL) 07:15: 06:13 ONCE, 1 [place] injection 5 00 :00 dose, [facility] Med ical mg 02/21/21 at Branch 0215, Routine D5W 0.9% Yes IV Univers NaCl (NS) 1 06 Infusion, ity of L + KCL 20 07:00: at 125 [place] mEq 00 mL/hr, Medical CONTINUOUS Branch , Starting [place] 02/21/21 at 0200, Until Discontinu ed, Routine acyclovir Yes 10mg/kg 500 mg Uni vers (ZOVIRAX) 02-21 (rounded ity of 500 mg in 06:45: from 478 [place] NaCl 0.9% 00 mg = 10 Medical (NS) 100 mL mg/kg Branch IV infusion ?47.8 kg [place] weight), IV Infusion, Q8H ABX, First dose on [place] 02/21/21 at 0145, Until Discontinu ed, 100 mL
Rest ricted use approved by: ADC PROVIDER NaCl 0.9% 2020- No 1000mL at 125 Uni vers (NS) IV 5 05-06 mL/hr, IV ity of infusion 06:45: 06:14 Infusion, Aniceto as 1,000 mL 00 :40 CONTINUOUS Medic al , Starting Branch [place] 02/21/21 at 0145, Until [place] 02/21/21 at 0114, Routine morpHINE 2020- No 2mg 2 mg, Slow Un ignacia injection 2 02-21 05-06 IV Push, ity of mg 06:45: 05:40 ONCE, 1 [place] 00 :00 dose, [place] Medical 02/21/21 at Branch 0145, Routine vancomycin Yes 125mg 125 mg, Uni vers (FIRVANQ) 506 Oral, BID, ity of 50 mg/mL 06:30: First dose Aniceto as oral 00 on [facility] Medical solution 02/21/21 at Branch 125 mg 0130, Until Discontinu ed, Routine
Reason for Anti-Infec tive: Empiric Non-Surgic al Prophylaxi s
Durat ion of therapy: 7 days cefTRIAXone Yes 1000mg 1,000 mg, Univers (ROCEPHIN) 06 IV ity of 1,000 mg in 06:30: Piggyback, [place] NaCl 0.9% 00 Q12H ABX, Medic al (NS) 50 mL First dose Bra [facility] MINI-BAG on [place] 02/21/21 at 0130, Until Discontinu ed, 50 mL
R gallo for Anti-Infec tive: Empiric Therapy for Suspected Infection< br>Empiric Therapy Site: Urine
D uration of therapy: 7 days haloperidol Yes 5mg 5 mg, Slow Univers lactate 06 IV Push, ity of (HALDOL) 06:29: QPMPRN, [place] injection 5 35 Starting Medi eduar mg [place] 02/21/21 Branch at 0129, Until Discontinu ed, Routine, insomnia, agitation FENTanyl PF Yes 50ug 50 mcg, Uni vers (SUBLIMAZE 06 Slow IV ity of (PF)) 06:23: Push, [place] injection 10 TIDPRN, Medical 50 mcg Starting Branch [place] 02/21/21 at 0123, Until Discontinu ed, Routine, Pain (scale 7-10) traMADoL 2021-0 Yes 50mg 50 mg, Univers (ULTRAM) 02-21 Oral, ity of tablet 50 06:22: Q8HPRN, [place] mg 40 Starting Medical [place] 02/21/21 Branch at 0122, Until Discontinu ed, Routine, Pain (scale 4-6) glucagon Yes 1mg 1 mg, Univers (GLUCAGEN 02-21 Intramuscu ity of DIAGNOSTIC 06:07: lar, PRN, [place] KIT) 37 Starting Medical injection 1 [place] 02/21/21 Br anch mg at 0107, Until Discontinu ed, KIRSTY, Blood Glucose < or = 70 mg/dL and patient is unable to swallow or has mental changes. dextrose 50 Yes 25mL 25 mL, Univ ers % in water 02-21 Slow IV ity of (D50W) 06:07: Push, PRN, [place] injection 37 Starting Medica l 25 mL [facility] 02/21/21 Branch at 0107, Until Discontinu ed, KIRSTY, Blood Glucose < or = 70 mg/dL and patient is unable to swallow or has mental status changes. predniSONE Yes 10mg 10 mg, Unive rs (DELTASONE) 02-21 Oral, ity of tablet 10 05:45: DAILY, [place] mg 00 First dose Medical on [facility] 02/21/21 at 0045, Until Discontinu ed, Routine moxifloxaci Yes 1[drp] 1 Drop, U nivers n (VIGAMOX) 02-21 Left Eye, ity of 0.5 % 05:45: TID, First [place] ophthalmic 00 dose on Medica l drops 1 [facility] 02/21/21 Branch Drop at 0045, Until Discontinu ed gabapentin Yes 200mg 200 mg, Uni vers (NEURONTIN) 06 Oral, TID, it y of capsule 200 05:45: First dose [place] mg 00 on [facility] Medical 02/21/21 at Branch 0045, Until Discontinu ed, Routine carvediloL Yes 12.5mg 12.5 mg, U nivers (COREG) 506 Oral, BID ity of tablet 12.5 05:45: MEALS, [place] mg 00 First dose Medical on [facility] 02/21/21 at 0045, Until Discontinu ed, Routine meclizine Yes 25mg 25 mg, Univer s (TRAVEL-EAS 5-06 Oral, BID, it y of E 05:45: First dose [place] (MECLIZINE) 00 on [place] [facility]ica l ) tablet 02/21/21 at [facility] mg 0045, Until Discontinu ed, Routine lactobacill 0 Yes 1{tbl} 1 tablet, Univers us 5-06 Oral, BID, ity of acidophilus 05:30: First dose [place] (ACIDOPHILL 00 on [place] Medica l US) 02/21/21 at Branch million 0030, cell -100 Until mg captab 1 Discontinu tablet ed, Routine docusate Yes 100mg 100 mg, Unive rs (COLACE) 5-06 Oral, BID, ity o f capsule 100 05:15: First dose [place] mg 00 on [place] [facility] 02/21/21 at Branch 0015, Until Discontinu ed, Routine ondansetron Yes 4mg 4 mg, Slow Univers (ZOFRAN 5-06 IV Push, ity of (PF)) 05:06: Q6HPRN, [place] injection 4 41 Starting Medi eduar mg [facility] 02/21/21 Branch at 0006, Until Discontinu ed, Routine, Nausea and Vomiting (N/V) FENTanyl PF 2020- No 25ug 25 mcg, Un ignacia (SUBLIMAZE 5-05 05-05 Slow IV ity o f (PF)) 23:45: 23:05 Push, [place] injection 00 :00 ONCE, 1 Medical 25 mcg dose, Thu Branch 02/20/21 at 1845, STAT ondansetron 2020- No 4mg 4 mg, Slow Univers (ZOFRAN 5-05 05-05 IV Push, ity of (PF)) 22:15: 21:15 ONCE, 1 [place] injection 4 00 :00 dose, Thu Med ical mg 02/20/21 at Branch 1715, KIRSTY NaCl 0.9% 2020- No 500mL at 999 Univ ers (NS) bolus 5-05 05-05 mL/hr, 500 it y of infusion 22:15: 21:15 mL, IV [place] 500 mL 00 :00 Infusion, Medical ONCE, 1 Branch dose, 02/20/21 at 1715, STAT FENTanyl PF 2020- 50ug 50 mcg, Un ignacia (SUBLIMAZE 02-20 Slow IV ity o f (PF)) 21:45: 20:36 Push, [place] injection 00 :00 ONCE, 1 Medical 50 mcg dose, [facility] 02/20/21 at 1645, STAT Vital Signs Vital Name Observation Time Observation Value Comments Source HEIGHT 2020-11-29 156.2 cm 11:27:00 WEIGHT 2020-11-29 60.555 kg 11:27:00 HEIGHT 2020-11-26 156.2 cm 12:20:00 WEIGHT 2020-11-26 66.225 kg 12:20:00 Systolic blood 2021-03-13 119 mm[Hg] University of pressure 17:00:00 [facility] Diastolic blood 2021-03-13 66 mm[Hg] University o f pressure 17:00:00 [facility] Heart rate 2021-03-13 89 /min [facility] 17:00:00 [facility] Body temperature 2021-03-13 36.11 Blanca University 17:00:00 [facility] Respiratory rate 2021-03-13 18 /min University 17:00:00 [facility] Oxygen saturation 2021-03-13 99 /min [facility] Arterial blood 17:00:00 [facility] by Pulse oximetry [place] Body weight 2021-03-13 56.7 kg University of 09:57:00 [facility] BMI 2021-03-13 23.62 kg/m2 University of 09:57:00 [facility] Body height 2021-03-08 154.9 cm University of 20:15:00 [facility] Systolic blood 2021-03-06 120 mm[Hg] University of pressure 19:03:00 [facility] Diastolic blood 2021-03-06 72 mm[Hg] University o f pressure 19:03:00 [facility] Heart rate 2021-03-06 79 /min University of 19:03:00 [facility] Respiratory rate 2021-03-06 19 /min [facility] 19:03:00 [facility] Body height 2021-03-06 152.4 cm University 19:03:00 [facility] Body weight 2021-03-06 57.471 kg University of 19:03:00 [facility] BMI 2021-03-06 24.74 kg/m2 University of 19:03:00 [facility] Oxygen saturation 2021-03-06 96 /min University in Arterial blood 19:03:00 [facility] by Pulse oximetry [place] Body height 2021-03-05 152.4 cm University of 20:14:00 [facility] Body weight 2021-03-05 57.749 kg University of 20:14:00 [facility] BMI 2021-03-05 24.86 kg/m2 University of 20:14:00 [facility] Systolic blood 2021-02-22 139 mm[Hg] University of pressure 16:00:00 [facility] Diastolic blood 2021-02-22 64 mm[Hg] University o f pressure 16:00:00 [facility] Heart rate 2021-02-22 77 /min University 16:00:00 [facility] Body temperature 2021-02-22 35.83 [place] University 16:00:00 [facility] Respiratory rate 2021-02-22 18 /min University 16:00:00 [facility] Oxygen saturation 2021-02-22 95 /min [facility] in Arterial blood 16:00:00 [facility] by Pulse oximetry [place] Body weight 2021-02-22 60.963 kg University of 08:01:00 [facility] BMI 2021-02-22 25.39 kg/m2 University 08:01:00 [facility] Body height 2021-02-21 154.9 cm [facility] 01:11:00 [facility] HEIGHT 2020-11-29 156.2 cm 11:27:00 WEIGHT 2020-11-29 60.555 kg 11:27:00 HEIGHT 2020-11-26 156.2 cm 12:20:00 WEIGHT 2020-11-26 66.225 kg 12:20:00 Systolic blood 2021-09-20 176 mm[Hg] notified MD Carey pressure 15:52:00 SHARLENE Flynn Diastolic blood 2021-09-20 83 mm[Hg] notified MD [facility] pressure 15:52:00 SHARLENE Flynn Heart rate 2021-09-20 67 /min MD Carey 15:52:00 Body temperature 2021-09-20 36.61 Blanca MD Carey 15:52:00 Respiratory rate 2021-09-20 18 /min MD Carey 15:51:17 Body weight 2021-09-20 65.9 kg MD Carey 15:51:17 BMI 2021-09-20 29.88 kg/m2 MD Carey 15:51:17 Oxygen saturation 2021-08-23 96 /min MD Bakari bill in Arterial blood 16:23:09 by Pulse oximetry Body height 2021-06-21 148.5 cm MD Carey 14:40:52 Procedures Procedure Date / Time Performing Clinician Source Performed PATHOLOGY BIOPSY 2021-09-20 16:18:00 Ashley Adkins MD INTERPRETATION US UPPER EXTREMITY 2021 15:28:02 Yelena Montoya MD Todd son LIMITED LEFT PATHOLOGY BIOPSY 2021-07-04 14:13:00 Kinsey Benitez MD Stanley rson INTERPRETATION PATHOLOGY BIOPSY 2021-06-21 15:57:00 Ashley Adkins MD INTERPRETATION POCT GLUCOSE (AUTOMATED) 2021-03-13 17:02:00 [facility]) 2021-03-13 13:32:00 Bradford Paul versity of [facility] POCT GLUCOSE (AUTOMATED) 2021-03-13 01:28:00 [facility] ([facility]ATED) 2021-03-12 20:56:00 Bradford Paul [facility] BASIC METABOLIC PANEL 2021-03-12 18:44:00 Bradford Paul [facility] (NA, K, CL, CO2, GLUCOSE, Medica l Branch BUN, CREATININE, CA) N-TERMINAL PRO-BNP 2021-03-12 18:44:00 [facility] POCT GLUCOSE (AUTOMATED) 2021-03-12 16:05:00 [facility]UCOSE (AUTOMATED) 2021-03-12 12:15:00 Bradford Paul versity [facility] POCT GLUCOSE (AUTOMATED) 2021-03-12 01:26:00 Bradford Paul Uni versity [place] [facility] POCT GLUCOSE (AUTOMATED) 2021-03-11 21:06:00 Bradford Paul [facility] POCT GLUCOSE (AUTOMATED) 2021-03-11 16:00:00 Bradford Paul [facility] BASIC METABOLIC PANEL 2021-03-11 15:05:00 Jordan Will [facility] (NA, K, CL, CO2, GLUCOSE, Medica l Branch BUN, CREATININE, CA) POCT GLUCOSE (AUTOMATED) 2021-03-11 12:35:00 Bradford Paul [facility] POCT GLUCOSE (AUTOMATED) 2021-03-11 01:33:00 Bradford Paul Miryam [facility] POCT GLUCOSE (AUTOMATED) 2021-03-10 20:49:00 Bradford Paul [facility] POCT GLUCOSE (AUTOMATED) 2021-03-10 16:30:00 Bradford Paul [facility] POCT GLUCOSE (AUTOMATED) 2021-03-10 12:56:00 Bradford Paul [facility] MAGNESIUM 2021-03-10 10:12:00 Amy [facility] TROPONIN I 2021-03-10 10:12[facility] 2021-03-10 10:12:00 Tyron Reyes [facility] (NA, K, CL, CO2, GLUCOSE, Medica l Branch BUN, CREATININE, CA) N-TERMINAL PRO-BNP 2021-03-10 10:12:[address] [facility] HB ECG ROUTINE & RHYTHM 2021-03-10 10:08:12 Tyron Reyes [facility] POCT GLUCOSE (AUTOMATED) 2021-03-10 01:53:00 Bradford Paul [facility] POCT GLUCOSE (AUTOMATED) 2021-03-09 21:41:00 Bradford Paul [facility] POCT GLUCOSE (AUTOMATED) 2021-03-09 16:59:00 Bradford Paul [facility] POCT GLUCOSE (AUTOMATED) 2021-03-09 13:45:00 Bradford Paul [facility] BASIC METABOLIC PANEL 2021-03-09 08:44:00 Bradford Palu [facility] (NA, K, CL, CO2, GLUCOSE, Medica l Branch BUN, CREATININE, CA) CBC WITH DIFF 2021-03-09 08:44:00 Bradford Paul [facility] D-DIMER 2021-03-09 01:19:00 Moises Jordan [facility] CLOSTRIDIUM DIFFICILE 2021-03-09 01:19:[address] [facility] FECAL PATHOGENS BY PCR 2021-03-09 01:19:00 [facility] XR CHEST 1 VW 2021-03-09 00:05:00 Jordan Will [facility] URINALYSIS 2021-03-08 18:40:00 Mina [facility] URINE CULTURE 2021-03-08 18:40:00 Mina [facility] COVID-19 (ID NOW RAPID 2021-03-08 18:24:00 [facility] TESTING) [facility] [place] LAB ONLY COVID 2021-03-08 18:24:00 Mina Wu [facility] INTERPRETATION [facility] CT ABDOMEN PELVIS W 2021-03-08 17:34:31 Mina Wu [facility] CONTRAST [facility] CT CHEST PULMONARY 2021-03-08 17:34:31 [facility] ANGIOGRAM [facility] FREE T4 2021-03-08 17:01:00 Singer [facility] HB ECG ROUTINE & RHYTHM 2021-03-08 16:30:28 Ion Garcia [facility] STRIP [facility] LIPASE 2021-03-08 16:22:00 Singer [facility] TROPONIN I 2021-03-08 16:22:00 Singer [facility] THYROID STIMULATING 2021-03-08 16:22:00 Mina Wu [facility] HORMONE [facility] COMP. METABOLIC PANEL 2021-03-08 16:22:00 Singer [facility] ([id number]) [facility] CBC WITH DIFF 2021-03-08 16:22:00 Singer [facility] PROTHROMBIN TIME / INR 2021-03-08 16:22:00 Singer [facility] ACTIVATED PARTIAL 2021-03-08 16:22:00 Singer [facility] THRMPLAS YASMIN [facility] N-TERMINAL PRO-BNP 2021-03-08 16:22:00 Mina Wu [facility] HOSPITAL ADMISSION 2021-03-08 05:01:00 Doctor Unassigned, [facility] CAROTID DUPLEX BILATERAL 2021-02-22 20:19:16 Kera Ch [facility] - BY VASCULAR LAB [facility] POCT GLUCOSE (AUTOMATED) 2021-02-22 16:00:00 Tyron Reyes [facility] POCT GLUCOSE (AUTOMATED) 2021-02-22 12:52:00 Tyron Reyes [facility] URIC ACID 2021-02-22 09:49:00 Amy [facility] MAGNESIUM 2021-02-22 09:49:00 Amy ned [facility] COMP. METABOLIC PANEL 2021-02-22 09:49:00 Tyrno Reyes [facility] ([id number]) [facility] Branch CBC WITH DIFF 2021-02-22 09:49:00 Tyron Reyes [facility] N-TERMINAL PRO-BNP 2021-02-22 09:49:[address] [facility] POCT GLUCOSE (AUTOMATED) 2021-02-22 02:15:00 Tyron Reyes [facility] POCT GLUCOSE (AUTOMATED) 2021-02-21 21:16:00 Tyron Reyes [facility] POCT GLUCOSE (AUTOMATED) 2021-02-21 16:34:00 Tyron Reyes [facility] POCT GLUCOSE (AUTOMATED) 2021-02-21 13:03:00 Tyron Reyes [facility] OSMOLALITY URINE 2021-02-21 11:03:00 Amy [facility] LEGIONELLA URINARY 2021-02-21 11:03:00 Tyron Reyes [facility] ANTIGEN TST [facility] URINE CULTURE 2021-02-21 11:03:00 Amy [facility] URIC ACID 2021-02-21 09:10:00 Amy [facility] MAGNESIUM 2021-02-21 09:10:00 Amy [facility] OSMOLALITY, SERUM OR 2021-02-21 09:10:00 Tyron Reyes [facility] PLASMA [facility] TROPONIN I 2021-02-21 09:10:00 Amy [facility] COMP. METABOLIC PANEL 2021-02-21 09:10:00 Tyron Reyes [facility] ([id number]) [facility] SEDIMENTATION RATE 2021-02-21 09:10:[address] [facility] CBC WITH DIFF 2021-02-21 09:10:00 Amy [facility] N-TERMINAL PRO-BNP 2021-02-21 09:10:[address] [facility] CT ABDOMEN PELVIS W 2021-02-21 09:06:17 Tyron Reyes [facility] CONTRAST [facility] XR SHOULDER 2+ VW RIGHT 2021-02-21 09:05:04 Tyron Reyes [facility] CT HEAD WO CONTRAST 2021-02-21 09:04:43 Tyron Reyes [facility] POCT GLUCOSE (AUTOMATED) 2021-02-21 07:42:00 Tyron Reyes [facility] VITAMIN B12, LEVEL 2021-02-21 05:53:[address] [facility] TROPONIN I 2021-02-21 05:53:00 Tyron Reyes [facility] IRON PANEL 2021-02-21 05:53:00 Tyron Reyes [facility] PROTHROMBIN TIME / INR 2021-02-21 05:53:00 Tyron Reyes [facility] VITAMIN D, 25-OH 2021-02-21 05:53:00 Amy ned [facility] PROCALCITONIN 2021-02-21 05:53:00 Tyron Reyes [facility] POCT GLUCOSE (AUTOMATED) 2021-02-21 05:52:00 Prabhakar Childs [facility] XR FOREARM 2 VW RIGHT 2021-02-20 22:57:20 Jordan Walsh [facility] XR HUMERUS 2 VW RIGHT 2021-02-20 22:57:20 Jordan Walsh [facility] HB ECG ROUTINE & RHYTHM 2021-02-20 22:38:40 Jordan Walsh [facility] URINALYSIS 2021-02-20 22:10:00 Jordan Walsh [facility] SODIUM, URINE RANDOM 2021-02-20 22:10:00 Tyron Reyes [facility] PROTEIN CREAT RATIO URINE 2021-02-20 22:10:00 [facility] (ID NOW RAPID 2021-02-20 22:10:00 Jordan Walsh [facility] TESTING) [facility] LAB ONLY COVID 2021-02-20 22:10:00 Jordan Walsh [facility] BLOOD CULTURE SCREEN 2021-02-20 21:10:00 Jordan Walsh [facility] LACTIC ACID WHOLE BLOOD 2021-02-20 21:10:00 Jordan Walsh [facility] BLOOD CULTURE SCREEN 2021-02-20 21:02:00 Jordan Walsh [facility] PHOSPHORUS 2021-02-20 21:02:00 Tyron Reyes [facility] CREATINE KINASE 2021-02-20 21:02:00 Tyron Reyes [facility] URIC ACID 2021-02-20 21:02:00 Tyron Reyes [facility] LIPASE 2021-02-20 21:02:00 Jordan Walsh [facility] MAGNESIUM 2021-02-20 21:02:00 Tyron Reyes [facility] FERRITIN SERUM 2021-02-20 21:02:00 Tyron Reyes [facility] TROPONIN I 2021-02-20 21:02:00 Jordan Walsh [facility] THYROID STIMULATING 2021-02-20 21:02:00 Tyron Reyes [facility] HORMONE [facility] COMP. METABOLIC PANEL 2021-02-20 21:02:00 Jordan Walsh [facility] ([id number]) [facility] [place] LIPID PANEL ([id number])(TOTAL 2021-02-20 21:02:00 Tyron Reyes [facility] CHOLESTEROL, [facility] TRIGLYCERIDES, HDL) CBC WITH DIFF 2021-02-20 21:02:00 Jordan Walsh [facility] GLYCOSYLATED HEMOGLOBIN 2021-02-20 21:02:00 Tyron Reyes [facility] (A1C) [facility] N-TERMINAL PRO-BNP 2021-02-20 21:02:[address] [facility] XR CHEST 1 VW 2021-02-20 20:58:38 Jordan Walsh [facility] EKG-12 LEAD 2021-02-20 20:52:14 Doctor Joceline, [facility] [place] [facility] [place] ASSIGNMENT OF BENEFITS 2021-02-20 20:48:04 [facility] Name Medical [facility] NOTICE OF PRIVACY 2021-02-20 20:47:37 Doctor Joceline, [facility] PRACTICES [place] [facility] CONSENT/REFUSAL FOR 2021-02-20 20:47:11 Doctor Joceline, [facility] DIAGNOSIS AND TREATMENT [place] [facility] [place] Plan of Care Planned Activity Planned Date Details Comments Source Future Scheduled Test 1940 00:00:00 COVID-19 Vaccination MD Carey (1) [code = COVID-19 Vaccination (1)] Encounters Start End Encounter Admission Attending Care Care Encounter Source Date/Time Date/Time Type Type Clinicians Facility Department ID 2021-08-18 Emergency [facility] [id number] Univers 20:31:48 [facility] 2021-07-27 Outpatient DARIANA, SLE Surgery [id number] SLE 00:46:32 AMOR 2021-06-19 Outpatient MILAN, MDA MDA [id number] 16:55:25 PROVIDER Dani bill 2021-09-20 2021-09-20 Outpatient JACE ADKINS MDA MDA [id number] 09:41:37 10:28:58 ASHLEY bill 2021-08-23 2021-08-23 Outpatient JACE BENITEZ, MDA MDA [id number] 11:09:34 12:02:10 KINSEY bill 2021-07-24 2021-07-24 Outpatient JACE BENITEZ MDA MDA [id number] 09:57:59 11:35:29 KINSEY bill 2021-07-11 2021-07-11 Outpatient JACE BENITEZ, MDA MDA [id number] 07:24:23 16:14:43 KINSEY bill 2021 2021 Outpatient EL SRAVANI MDA [id number] 09:43:10 09:43:10 Dani bill 2021-07-04 2021-07-04 Outpatient JACE BENITEZ, SRAVANI MDA [id number] 08:03:03 12:45:35 KINSEY bill 2021-06-21 2021-06-21 Outpatient JACE ADKINS, MDA MDA [id number] 09:37:53 11:15:25 ASHLEY bill 2021-06-21 2021-06-21 Outpatient JACE ADKINS, MDA MDA [id number] MD 09:31:19 09:31:25 ASHLEY bill 2021-04-18 2021-04-18 Outpatient DIMA [facility] [id number] Univers 14:00:00 14:00:00 SENDIL [id number] [facility] 2021-04-18 2021-04-18 Outpatient R DIMA [facility] [id number] Univers 14:00:00 14:00:00 SENDIL ity [facility] 2021-03-14 2021-03-14 Transition Jaren Bullard [id number] Univers 00:00:00 00:00:00 of Care Tamikamirna Zamudio [id number] [id number] [phone] [facility] 403 Branch 2021-03-08 2021-03-13 Emergency Mina Wu [facility] [id number] Univers 11:13:00 14:30:00 Bradford Paul [id number] [id number] [phone] [facility] 081 Branch 2021-03-12 2021-03-12 Outpatient DIMA [facility] [id number] Univers 08:30:00 08:30:00 SENDIL [id number] ity [facility] 2021-03-12 2021-03-12 Outpatient R DIMA [facility] [id number] Univers 08:30:00 08:30:00 SENDIL ity [facility] 2021-03-08 2021-03-08 Telephone Dima [facility] [id number] Univers 00:00:00 00:00:00 Kera Marrufo [id number] [id number] [phone] Hi dical nal 9 [facility] 2021-03-06 2021-03-06 Office Dima [facility] [id number] Univers 13:42:37 14:43:04 Visit Kera Marrufo [id number] [id number] [phone] Hi dical nal 9 [facility] 2021-03-06 2021-03-06 Outpatient R DIMA [facility] [id number] Univers 14:00:00 14:00:00 SENDIL [id number] [facility] 2021-03-06 2021-03-06 Outpatient R DIMA [facility] [id number] Univers 14:00:00 14:00:00 [facility] 2021-03-05 2021-03-05 [facility] [id number] Univers 15:09:13 16:42:02 Visit Fran RAY [id number] i [id number] [phone] [facility] 144 Branch 2021-03-05 2021-03-05 [facility] [id number] Univers 15:15:00 15:15:00 FRAN [facility] 2021-02-25 2021-02-25 Transition Jaren Arambula [id number] Univers 00:00:00 00:00:00 of Care Luis Felipe Zamudio [id number] [id number] [phone] [facility] 403 Branch 2021-02-20 2021-02-22 Hospital Jordan Walsh [facility] [id number] Univers 14:56:00 17:10:00 Encounter Prabhakar Childs [id number] ity of [place] [id number] [facility] [phone] [facility] 081 Branch 2021-02-20 2021-02-20 Emergency X KENYETTA [facility] ERT [id number] Univers 14:56:00 14:56:00 JORDAN [facility] 2020-11-26 2020-11-26 Outpatient SLE SLE [id number] SLE 00:00:00 00:00:00 2020-10-23 2020-10-23 Outpatient [place] [facility] [id number] [place] 00:00:00 00:00:00 REGINALDO [address] 2020-09-28 2020-09-28 Outpatient FAGAN, [facility] [id number] [place] 00:00:00 00:00:00 DOLORES [address] 2020-09-12 2020-09-12 Outpatient PECCORA, [facility] [id number] [place] 00:00:00 00:00:00 JEOVANNY [address] 2020-08-17 2020-08-17 Outpatient WOOD, [facility] [id number] [place] 00:00:00 00:00:00 REGINALDO [address] 2020-07-24 2020-07-24 Outpatient WOOD, [facility] [id number] [place] 00:00:00 00:00:00 REGINALDO [address] 2020-07-02 2020-07-02 Outpatient WOOD, [facility] [id number] [place] 00:00:00 00:00:00 REGINALDO [address] 2020-06-05 2020-06-05 Outpatient MAFFET, [facility] [id number] [place] 00:00:00 00:00:00 MALCOLM [address] 2020-06-05 2020-06-05 Outpatient MAFFET, [facility] [id number] [place] 00:00:00 00:00:00 MALCOLM [address] 2020-05-30 2020-05-30 Outpatient WOOD, [facility] [id number] [place] 00:00:00 00:00:00 REGINALDO [address] 2020-05-08 2020-05-08 Outpatient FAGAN, [facility] [id number] [place] 00:00:00 00:00:00 DOLORES [address] 2020-05-02 2020-05-02 Outpatient RADLEY, [facility] [id number] [place] 00:00:00 00:00:00 LEÓN [address] 2020-04-19 2020-04-20 Outpatient JOGLEKAR, [facility] [id number] [place] 00:00:00 00:00:00 SYEDA [address] 2020-04-16 2020-04-16 Outpatient DONNA, [facility] [id number] [place] 00:00:00 00:00:00 REGINALDO [address] 2020-04-05 2020-04-05 Outpatient WOOD, [facility] [id number] [place] 00:00:00 00:00:00 REGINALDO 720 Method i 2020-02-24 2020-02-24 Outpatient WOOD, [facility] [id number] [place] 00:00:00 00:00:00 REGINALDO [address] 2020-02-24 2020-02-24 Outpatient WOOD, [facility] [id number] [place] 00:00:00 00:00:00 REGINALDO 999 Method i 2020-02-24 2020-02-24 Outpatient WOOD, [facility] [id number] [place] 00:00:00 00:00:00 REGINALDO 773 Method i 2020-02-24 2020-02-24 Outpatient WOOD, [facility] [id number] [place] 00:00:00 00:00:00 REGINALDO 808 Method i 2019-11-02 2019-11-02 Outpatient PECCORA, [facility] [id number] [place] 00:00:00 00:00:00 JEOVANNY [address] 2019-09-22 2019-09-22 Outpatient PECCORA, [facility] [id number] [place] 00:00:00 00:00:00 JEOVANNY [address] 2019-07-28 2019-07-28 Outpatient PECCORA, [facility] [id number] [place] 00:00:00 00:00:00 JEOVANNY [address] Results Test Description Test Time Test Comments Results Result Comments Source Pathology Biopsy Interpretation 2021-09-23 19:25:36 Test Item Value Reference Range Interpretation Comme nts Addendum q7mruWNoLXXmuPS9LqErTXLaz4wvu2QvhUWwnSHlVGxtyQLxrkZuqa11oIP0sK38XH6rAYLfHrU1JRQn akA4Ulp9OKTuLBOwdOJwD730e3xra9zlneUpkRX6tLmkNSLxrpdhXfP0GQjqYZIfrswuIZu1BAhsWIVe kDB9ZKGgsGAbS0SiDVRvUV8ywbo4RMV6GIdrWFMtDvR 1 (test 7ESTndMIeJETakTjgXYjow017IEN6AxCrINBhvbChxCvhdX7hYlTbFDBQuZh0wBVrZPVuJBIisAdaknD qWPFjGFRcolB8iFGlrAIyd8GogHwftoUrhMZ0DZDwBRFxNFM1uWOvyzZlQDygzIddYSXfVMvvJXSifBH gBJZuQCEetrG7dJLvaXGtbPW0MBfjRVVfs5vfQf6PDX code = pdD9GBOW8XFIUxV3SGVGWQHXPAQX3XNDTtJY3zY3zEEKBIRbnNKT2BQSpMWFRZL42KDBUWTQ0STVcNHI syKImTYRDUOWUKOZxHPHZBHXaGCMHmN5UGHOHXG5nTNOPNByFOGLYOFIwAASOLKlIXVM7VWMCQWPLUZb bCXADJZAvtFS9KLSXYNZNrWJnYL4THONAOS1OLKiutJ 37) MMlfKLgEFTkJ17ah1FgoQEihLdzUDXnMcZmTF0wwJWzfG== Submitted s1yzuINaOHIulUS4IhDjHNDys4tlt6OkaGZrfKJiBGletXRvssMeld61uKE7oI96XV8gTHFgLnY9GBJx gpP8Fkl9AXNfOFRloAFnG060d9caj4ajmhAjsXE1qNqpTSEdxzimApN2AVnbKNAcziffBGk2CPanNRVg aZE6IFEtaSAoR2XfBDPiES2wbxh8HPV1QZxwLZYsXmV Clinical 5VRCkfHYeHCCwzPexXIkuk082TCR4LzOkVCJzizZqgKdnyP5dJmGjATYJKP4wkOHkgSKhVoG8lbCkktT yzG8bWfTgBVXhp1Yku7Igc6zbsyScMVO1GtKsOGDsokfcHNO3 History (test code = 34489) Diagnosis i5naaYXtCDXwrRL0AbIeLAVez8uen1KesTMboVHyOLmvvRMzfqDexs79iCR2vN58VG6wXORaWaK1AJGc pwG7Kjk7FFJsQXOdqZHtQ717p3jsk4ljbjVeeUS4YXYdAPLwQ8AbUT8wVQDlqVZkS97zpVKnGFU4PWDp JTYjvBAlCCWeQKL8PYJyjOKxC7dkTZFrAL0pcysmBTz (test iSGooELCnaRS4OHEufOFoS2LgZNEiUNldEATybbl0WgElCg9qvHGylFdoXZpnLMAxILAzDPafFRRkOuB qY4JyTXC4EWVflM1lFPTsG3e9XUmnmHRwZQdtz9EzeWIkUHpafDfzplBhPWctsB7bMRZdqSW5SZcpuSB yXGxpNzIwXGxpbjcyMFxjZjAgSHlwZXJwbGFzdGljIG code = OblZdanDHkv9WmXVIiw2vwCZfeqOepjkNjstHqx2OyEJTuZFP5ozKzUPK0uvD3pNQ2nCrbEQkbvBNwd2 ZytMJryBSuJNXwoYxuyoXkBLJwJJGuNXVoYVSnz0L6KMHzJVrxla3wZXArauVYAGFvB68brKFpmK6zfI FyfQ== 34) Comment e5cimHHsDSJfbZH6CbFuTNRhz8qyt8PhsYUhmPBiPAmqrOIcbuOhta10vQH3xU45FC5cYGStFuV1JGHf orD4Hfm2DOYhGXLwbCLxA648i4jaq5otrlYpeXD4iEcoGGHfadqaOcD6ZAgdGXRbkssaHZc2VAifNJAj jXF8VKOlaTWlC1DkEEBnAR3xtwd1WEO3EOmxUFTtPjA (test 3HZEexZSxWLAtlRrlYTgxn021PBJ3ImXhXVMjxtSftGtgdPcuiN8kTxIpPSEPvpNoWGQplXvcinOaVGS li5AdnTKaXDxjJxJhF24qw6jyNTKzFJOccI66yEAzpCyhxqQdIEYql29cUbSslCV3quOdBCTbn11tTTT nUEMzvlHpvvBkkEq2NQK3bGEkBBB9MgArsWBwyF== code = 9835) Gross x6ffrHFkUHBokBYCDNpkZIlquvUmYSYawFHnH8IzartvQTenNO2oHQ3oySspbUUncCJmIL8DXPToMgQe YJSdrZHwqqTlDjOvEOUsfSYmpUA2FFRvWI1kqmerMLsxKKftRERvyoJ0SHSvfNIhY8OkHZClSD7gitxt BZA3JKcokM6rhtNXNrlyCf3ojXSefCxjJkCtEvCcNAF Descripti gCJEiZZBdyPyzYELcUGo8iO3OVvgiG48as7H6Myo3NIIzHDFaT6BoIM2sYHLpkXCkZ36BFxqqGFM0ZUJ TXadwVRZyPA3Ws5dmRPPgkREoZXR5TIgjbUFrYFKkSKIdXTt0HABgLElugGUbWO0cmZsgAzwfgNtxf8N pjTFlELojGLUnMYPrJLzsFRUxKV6GGkAvJUPbTFCrDA on (test OqMNs1UIu2WO3INkBcCJTmITw3WTVoJGTbHJz7VMymAS2PRXa8RMn0IAe8EJF3XCF1PYRjHCBcBlUeCL PfBFApAIneFLoidqIePSLcBBXlMLivGdpzYAuwW79vcIsmiF1mOsmdvpSuZHS6HAZdqlKCDeoeuSZtsr xlcGljTmVzdERvYzEgDQpcbHRycGFyXGxpbjBccmluM code = HTUPfvriVJuhLuyUJMkAPepeqGzCJKxkX4aAEZulJM8LEDkvFMruNGiVQ7wiIP0rIYpVPrps3ioltYxL G5aPN17GI2dMGDfulbmz6NhwZtiaWkuobLeADG9nIQoZLU/f7KdGWwfSDBclLO9VKSqUPEjVDToDQZ3C Z6gn6igpkBnlMO1CFsqVQ38LNqaJD52RDioUM9zXHTa 666691511 ZfPxWOsaCB8nfpsnfdMdRYPwJTakk0ZvDXCpgBTyJ0SlLIpcIS85zPYnnYvrn9VyvQo2eTVhSPzaWYBw NgYwASWek5OgY5C3IPNhQVxpm2hvSLBoNHehp4NnGDfXLJLEBP1EHJ0mmES6CDdDO5EYU8tHqMFiJCB2 pMW0XAURSrtwxOY9hRH8cU35RGYxMLCbhMGcOHlfZ49 1) 9WXQ9GCUgMYytx9kpLOBtOUufi9LiNXkHOZKUHL1HOT4jgEY5VFbOB6IZOLypSKJmAvslqRAJICL1TCu blDauhUp9q0ozeMEaw7s7DAcfLQM1bYoljXXgolpkzYFsmVhlxsFpRC9GERQdlUZFZMS9KZ7sKYd7UUi qYACnE4UpM9JwllPkdYGuZGJtlfAbc4apQIR2GGSbkF QeqCEpTcRpHctqVXJ4KFVyPWimUB4LPQHuTAY3ESjomY17vDRfDV3LCPOhKTtzSFVlHNOhwhS4INSzcZ RvWDB5KT7igWbmnFYvmwxndpP8AL3OhH== Disclaime n5kfmOWjKMKuqXReLsLcVXIlUEKxt4yrWUDmbNYlNrMqOsRvZsDjXmdbrRPvYMOnBgBsv8ghb822sEAb n5huOPBpQtY9aRGvQBNbgSAlO049GSEqXDtqc7pju4IdPCKemQCqd2R1RGQUhmrapBf0vFybG02mq3A1 SjvpD9qhAPWeWQPeU7RmBC3vVDYyVuc2TWU0RLY8IUW r (test zHLRcQ5JeWC2sZYFeqSVaOEx5x5lqzAmiHCZbPPY7a2reLKhwlyEeCJ3iqt9mfEt4e8fdoyByYOSoROB smCBEWYEdP9ApfFyyYg7nhUq5qPujHuuwFER1Oqy4AJ9eaq48pjq0vJukYNPxdzetJuF4FPttVSPzbph jMQd9ZYdfNWAdaBJ5QWHgfPJlZ3EoVDVlNT2fvwe0TT code = G0LDjdXJTrTrC9ENUwePOdNMAozPbpPHtzo680PGU5NtQdJI9pI2Hdj1W0wG9rpSLyBEKzaLUsWaUkIL Fawc5fkGGfMIiwv4XsQSB5fmM1uNSgrABiNNSsAL44Czzba5VuLazrCVI8CWEpcvKou3Csu5rzWyTouj CbZ0jwU9NdFXJpFHOhRBIbQcLoltRyw0Goj6NlwHDcu 9844) Bz4i2eeOXMbZYHjlXsco4yjVEJ4IKWfM9E2gRFxj8myWRadXATumTD0etT9NXEknPEyI9MwzT0zQWVwU M9uylo2t2ukYOD6CXyvOCIoPtN1diJ8CHCmwHDqGZXjpEozAXtph774FJL1PpQeINJrj7HrZ3PqbNawH 07ffWayA73uTFHckWiflR3zoQpfnS0kLyOuXfLqFSll dXhkrDBimbutRMlwipR8SXbjkymcICUyFHbzA1hrWuCkBIFitUzrYKnuv6LfNEKsAQUuSxvobqA3VTRI x92xJLAbv0NoYFZkxM5fmLXiMCbzypByiPS6SPfdyuAvSoYbztRjAJIpgJ0oXQLxHT1jBETkzhMqky1t jhJuZIUnVOKfN2AmfyvqfAdtgoAySCFkbm9nhnWjZLZ 1UNXVLM2DKKQgIGHvj29wFEHfnHdgcY4ssZPjdkCkBBYwq6MjaU0zpNBUNEDpG0wdOS3xTMphi3LpaMF ymSJjnFN4PSDbb3TrFyArdiRlxCHnjFFdZ3DorKtwH8rmYHXwYLCpkpEwiTUek8ViEJOviCZ0yXNcXR8 TOhRFs15cZRClGYOBoeGpHPDnaTokvKZ7jbV6rH4aZv UPBdBlfXSaqIAaClcoQBMvv372ws3mnbJ1GYFgJAYcapoyi0MnCNBnSWImeO37QXHuXPDsxx7zdytokE IjshTaH4Edmhi2lM0aXVUdGWoyLUMjAZAbCuLyeHVdFpCeScKklKefwEccTMyvHbMdRALiPNwwN9qlHv FcZnMyMlxwYXJ9 [facility] GLUCOSE (AUTOMATED)2021-03-13 17:08:53 Test Item Value Reference Range Interpretation Comments POCT GLU (test code = 1857115886) 125 mg/dL 70-110 H Lab Interpretation (test code = Abnormal 50561-5) [facility] GLUCOSE (AUTOMATED)2021-03-13 13:43:14 Test Item Value Reference Range Interpretation Comments POCT GLU (test code = 5348180628) 102 mg/dL 70-110 Lab Interpretation (test code = Normal 25922-0) [facility] GLUCOSE (AUTOMATED)2021-03-13 01:32:16 Test Item Value Reference Range Interpretation Comments POCT GLU (test code = 9497341125) 151 mg/dL 70-110 H Lab Interpretation (test code = Abnormal 58468-3) [id number] 22:10:14 Test Item Value Reference Range Interpretation Comments NT-proBNP (test code 1680 pg/mL See_Comment H [Autom ated = [id number]) message] The system which generated this result transmitted reference range : <=450. The reference range was not used to interpret this result as normal/abnormal . CARL (test code = CARL) Biotin has been reported to cause a negative bias, interpret results relative to patient's use of biotin. Lab Interpretation Abnormal (test code = 55525-8) [facility] GLUCOSE (AUTOMATED)2021-03-12 21:33:57 Test Item Value Reference Range Interpretation Comments POCT GLU (test code = 8517274048) 182 mg/dL 70-110 H Lab Interpretation (test code = Abnormal 07243-1) [facility] (NA, K, CL, CO2, GLUCOSE, BUN, CREATININE, CA)2021-03-12 19:36:16 Test Item Value Reference Range Interpretation Comments NA (test code = 133 mmol/L 135-145 L 3156648659) K (test code = 4.7 mmol/L 3.5-5.0 2927255047) CL (test code = 104 mmol/L 98-108 2477832537) CO2 TOTAL (test code = 20 mmol/L 23-31 L 0567389281) AGAP (test code = 2-16 4211249386) BUN (test code = 23 mg/dL 7-23 5153114496) GLUCOSE (test code = 210 mg/dL 70-110 H 9540594052) CREATININE (test code = 1.20 mg/dL 0.50-1.04 H 0527322308) CALCIUM (test code = 9.2 mg/dL 8.6-10.6 4021665871) eGFR (test code = mL/min/1.73m2 3661212322) CARL (test code = CARL) Association of Glomerular Filtration Rate (GFR) and Staging of Kidney Disease* + --+ --+ ------+| GFR (mL/min/1.73 m2) ?| With Kidney Damage ?| ?Without Kidney Damage+ --------+ --------+ +| ?>90 ?| ?Stage one ?| ? Normal ?+ ---+ ---+ -------+| ?60-89 ?| ?Stage two ?| ? Decreased GFR ? + --+ --+ ------+| ?30-59 ?| ?Stage three ?| ? Stage three ? + --+ --+ ------+| ?15-29 ?| ?Stage four ? | ? Stage four ?+ ---+ ---+ -------+| ?<15 (or dialysis) ? ?| ?Stage five ? | ? Stage five ?+ ---+ ---+ -------+ *Each stage assumes the associated GFR level has been in effect for at least three months. ?Stages 1 to 5, with or without kidney disease, indicate chronic kidney disease. Notes: Determination of stages one and two (with eGFR >59mL/min/1.73 m2) requires estimation of kidney damage for at least three months as defined by structural or functional abnormalities of the kidney, manifested by either:Pathological abnormalities or Markers of kidney damage (including abnormalities in the composition of the blood or urine or abnormalities in imaging tests). Lab Interpretation Abnormal (test code = 00459-5) [facility] GLUCOSE (AUTOMATED)2021-03-12 16:27:07 Test Item Value Reference Range Interpretation Comments POCT GLU (test code = 8275388523) 136 mg/dL 70-110 H Lab Interpretation (test code = Abnormal 51715-7) [facility] GLUCOSE (AUTOMATED)2021-03-12 12:46:34 Test Item Value Reference Range Interpretation Comments POCT GLU (test code = 4061704493) 93 mg/dL 70-110 Lab Interpretation (test code = Normal 14701-6) [facility] GLUCOSE (AUTOMATED)2021-03-12 10:18:23 Test Item Value Reference Range Interpretation Comments POCT GLU (test code = 5546627499) 143 mg/dL 70-110 H Lab Interpretation (test code = Abnormal 49930-5) [facility] GLUCOSE (AUTOMATED)2021-03-12 10:18:17 Test Item Value Reference Range Interpretation Comments POCT GLU (test code = 6224433195) 94 mg/dL 70-110 Lab Interpretation (test code = Normal 58819-8) [facility] GLUCOSE (AUTOMATED)2021-03-12 01:30:35 Test Item Value Reference Range Interpretation Comments POCT GLU (test code = 0488093375) 167 mg/dL 70-110 H Lab Interpretation (test code = Abnormal 29320-7) [facility] GLUCOSE (AUTOMATED)2021-03-11 21:25:48 Test Item Value Reference Range Interpretation Comments POCT GLU (test code = 1633633442) 145 mg/dL 70-110 H Lab Interpretation (test code = Abnormal 01292-3) [facility] METABOLIC PANEL (NA, K, CL, CO2, GLUCOSE, BUN, CREATININE, CA)2021-03-11 16:22:13 Test Item Value Reference Range Interpretation Comments NA (test code = 134 mmol/L 135-145 L 3967466791) K (test code = 3.3 mmol/L 3.5-5.0 L 3425088568) CL (test code = 103 mmol/L 98-108 6916840496) CO2 TOTAL (test code = 24 mmol/L 23-31 3617568894) AGAP (test code = 2-16 4724058399) BUN (test code = 25 mg/dL 7-23 H 4764170502) GLUCOSE (test code = 144 mg/dL 70-110 H 1257214603) CREATININE (test code = 1.18 mg/dL 0.50-1.04 H 8482278644) CALCIUM (test code = 8.9 mg/dL 8.6-10.6 5462538788) eGFR (test code = mL/min/1.73m2 6377773488) CARL (test code = CARL) Association of Glomerular Filtration Rate (GFR) and Staging of Kidney Disease* + --+ --+ ------+| GFR (mL/min/1.73 m2) ?| With Kidney Damage ?| ?Without Kidney Damage+ --------+ --------+ +| ?>90 ?| ?Stage one ?| ? Normal ?+ ---+ ---+ -------+| ?60-89 ?| ?Stage two ?| ? Decreased GFR ? + --+ --+ ------+| ?30-59 ?| ?Stage three ?| ? Stage three ? + --+ --+ ------+| ?15-29 ?| ?Stage four ? | ? Stage four ?+ ---+ ---+ -------+| ?<15 (or dialysis) ? ?| ?Stage five ? | ? Stage five ?+ ---+ ---+ -------+ *Each stage assumes the associated GFR level has been in effect for at least three months. ?Stages 1 to 5, with or without kidney disease, indicate chronic kidney disease. Notes: Determination of stages one and two (with eGFR >59mL/min/1.73 m2) requires estimation of kidney damage for at least three months as defined by structural or functional abnormalities of the kidney, manifested by either:Pathological abnormalities or Markers of kidney damage (including abnormalities in the composition of the blood or urine or abnormalities in imaging tests). Lab Interpretation Abnormal (test code = 62333-6) [facility] [id number] 16:00:45COVID DMT InterpretationInterpretation/Recommendations: Molecular NAAT Tests for Active Infection with the SARS-CoV-2 Virus: The patient has currently tested negative for the SARS-CoV-2 virus that causes COVID-19 illness. This most likely indicates that the patient does not have an active infection with the SARS-CoV-2 virus. However, infection is not completely ruled out as the false negative rate for molecular NAAT testing using a nasopharyngeal sample can be up to 30%, mostly dependent on the timing of sample collection in relation to illness onset and any deficiencies in sampling techniques. If the patient has symptoms concerning for COVID-19 illness, a repeat NAAT test (PCR, Rapid ID Now, etc.) should be performed, at which time the SARS-CoV-2 virus - if present - may have reached a detectable viral load (usually peaking by the end of the first week of symptoms). Tests for IgM and/or IgGAntibodies to the SARS-CoV-2 Virus: If the patient develops COVID-19 illness in the future, testingfor IgM and IgG antibodies approximately 3 weeks after illness onset will likely indicate if the patient has produced antibodies to the SARS-CoV-2 virus. However, some patients may take longer to develop detectable antibodies, while some patients who were infected with SARS-CoV-2 may never develop antibodies. While antibodies to SARS-CoV-2 may provide some degree of immunity, at this time the strength and duration of the antibody response is unknown. Interpretation Result Comments:These interpretation comments are based upon all COVID-19 testing the patient has had at [facility], including molecular NAAT testing (more commonly known as PCR testing and Rapid ID Now testing) and antibody testing. It does not take into account any testing that a patient has had outside of the [facility] medical record. [facility] LABORATORY SERVICESCOVID Resu [id number] Rapid ID NOW (no units) ? ? Date ? Value ? 03/08/2021 ? Not Detected ? ? ? 02/20/2021 ? Not Detected ? [facility]SE (AUTOMATED)2021-03-11 01:41:12 Test Item Value Reference Range Interpretation Comments POCT GLU (test code = 9070171429) 150 mg/dL 70-110 H Lab Interpretation (test code = Abnormal 52779-3) [facility] GLUCOSE (AUTOMATED)2021-03-10 20:54:33 Test Item Value Reference Range Interpretation Comments POCT GLU (test code = 3071515535) 152 mg/dL 70-110 H Lab Interpretation (test code = Abnormal 60980-8) [facility] GLUCOSE (AUTOMATED)2021-03-10 17:21:37 Test Item Value Reference Range Interpretation Comments POCT GLU (test code = 2679901977) 135 mg/dL 70-110 H Lab Interpretation (test code = Abnormal 96443-3) [facility] [id number] 14:47:37 Test Item Value Reference Range Interpretation Comments Campylobacter (jejuni, Negative Negative, coli and upsaliensis) Indeterminate, (test code = 85083-2) See comment Plesiomonas shigelloides Negative Negative, (test code = 93369-9) Indeterminate, See comment Salmonella (test code = Negative Negative, 23339-7) Indeterminate, See comment Yersinia enterocolitica Negative Negative, (test code = 46748-2) Indeterminate, See comment Vibrio (test code = Negative Negative, 38458-9) Indeterminate, See comment Vibrio cholerae (test Negative Negative, code = 43859-9) Indeterminate, See comment Enteroaggregative E. coli Negative Negative, (EAEC) (test code = Indeterminate, 73331-0) See comment Enteropathogenic E. coli Negative Negative, N/A, (EPEC) (test code = Indeterminate, 86018-0) See comment Enterotoxigenic E. coli Negative Negative, (ETEC) (test code = Indeterminate, 41344-1) See comment Shiga toxin-Producing E. Negative Negative, coli (STEC) (test code = Indeterminate, 36713-6) See comment Shigella/Enteroinvasive Negative Negative, E. coli (EIEC) (test code Indeterminate, = 36555-4) See comment Cryptosporidium (test Negative Negative, code = 88267-4) Indeterminate, See comment Cyclospora cayetanensis Negative Negative, (test code = 24957-9) Indeterminate, See comment Entamoeba histolytica Negative Negative, (test code = 82027-4) Indeterminate, See comment Giardia lamblia (test Negative Negative, code = 65968-3) Indeterminate, See comment Adenovirus F 40/41 (test Negative Negative, code = 32378-0) Indeterminate, See comment Astrovirus (test code = Negative Negative, 12017-6) Indeterminate, See comment Norovirus GI/GII (test Negative Negative, code = 98960-0) Indeterminate, See comment Rotavirus A (test code = Negative Negative, 22331-2) Indeterminate, See comment Sapovirus (test code = Negative Negative, 37144-9) Indeterminate, See comment CARL (test code = CARL) Negative:A negative result does not rule-out infection. ?This assay does not test for all potential infectious agents of diarrheal disease. Positive:A positive test result does not necessarily indicate the presence of viable organism. Lab Interpretation (test Normal code = 79315-9) [facility] [id number] 13:28:07 Test Item Value Reference Range Interpretation Comments URINE CULTURE (test No aerobic growth (< code = 630-4) 1000 CFU/mL) [facility]2021-03-10 13:02:24 Test Item Value Reference Range Interpretation Comments POCT GLU (test code = 1642439612) 91 mg/dL 70-110 Lab Interpretation (test code = Normal 12451-6) [facility] Tyler[facility] [id number] 11:08:20 Test Item Value Reference Range Interpretation Comments TROPONIN I (test <0.012 See_Comment [Automated code = 6977188110) message] The system which generated this result transmitted reference range : <=0.034 ng/mL. The reference range was not used to interpr et this result as normal/abnormal . CARL (test code = Equal or Less than CARL) 0.034 ng/ml---Normal ?Note: Cardiac troponin begins to rise 3-4 hours after the onset of ischemia. Repeat in 4-6 hours if the sample was drawn within 3-4 hours of the onset of the symptom and found normal. Between 0.035 and 0.120 ng/mL--- Borderline. Questionable myocardial injury or necrosis ? ?Note: Serial measurement may be necessary to confirm or exclude the diagnosis of myocardial injury or necrosis; Clinical correlation (symptoms, EKGs, imaging studies, and others) required; Repeat in 4-6 hours if clinically indicated. ? Equal or Higher than 0.121 ng/mL---Abnormal. Myocardial Injury or Necrosis Likely ? Biotin has been reported to cause a negative bias, interpret results relative to patient's use of biotin. ? Lab Interpretation Normal (test code = 59086-8) [facility]MINAL [id number] 11:05:18 Test Item Value Reference Range Interpretation Comments NT-proBNP (test code 1740 pg/mL See_Comment H [Autom ated = 6911099079) message] The system which generated this result transmitted reference range : <=450. The reference range was not used to interpret this result as normal/abnormal . CARL (test code = CARL) Biotin has been reported to cause a negative bias, interpret results relative to patient's use of biotin. Lab Interpretation Abnormal (test code = 57946-5) [facility] METABOLIC PANEL (NA, K, CL, CO2, GLUCOSE, BUN, CREATININE, CA)2021-03-10 10:56:38 Test Item Value Reference Range Interpretation Comments NA (test code = 133 mmol/L 135-145 L 2800642019) K (test code = 4.5 mmol/L 3.5-5.0 9661108131) CL (test code = 106 mmol/L 98-108 4609864680) CO2 TOTAL (test code = 23 mmol/L 23-31 8605868154) AGAP (test code = 2-16 3297566569) BUN (test code = 27 mg/dL 7-23 H 6424892328) GLUCOSE (test code = 112 mg/dL 70-110 H 9304819048) CREATININE (test code = 1.11 mg/dL 0.50-1.04 H 3084254619) CALCIUM (test code = 8.5 mg/dL 8.6-10.6 L 0943380888) eGFR (test code = mL/min/1.73m2 0289438159) CARL (test code = CARL) Association of Glomerular Filtration Rate (GFR) and Staging of Kidney Disease* + --+ --+ ------+| GFR (mL/min/1.73 m2) ?| With Kidney Damage ?| ?Without Kidney Damage+ --------+ --------+ +| ?>90 ?| ?Stage one ?| ? Normal ?+ ---+ ---+ -------+| ?60-89 ?| ?Stage two ?| ? Decreased GFR ? + --+ --+ ------+| ?30-59 ?| ?Stage three ?| ? Stage three ? + --+ --+ ------+| ?15-29 ?| ?Stage four ? | ? Stage four ?+ ---+ ---+ -------+| ?<15 (or dialysis) ? ?| ?Stage five ? | ? Stage five ?+ ---+ ---+ -------+ *Each stage assumes the associated GFR level has been in effect for at least three months. ?Stages 1 to 5, with or without kidney disease, indicate chronic kidney disease. Notes: Determination of stages one and two (with eGFR >59mL/min/1.73 m2) requires estimation of kidney damage for at least three months as defined by structural or functional abnormalities of the kidney, manifested by either:Pathological abnormalities or Markers of kidney damage (including abnormalities in the composition of the blood or urine or abnormalities in imaging tests). Lab Interpretation Abnormal (test code = 15455-0) [facility] 10:56:38 Test Item Value Reference Range Interpretation Comments MAGNESIUM (test code = 1738579093) 2.0 mg/dL 1.7-2.4 Lab Interpretation (test code = Normal 93676-7) [facility] GLUCOSE (AUTOMATED)2021-03-10 01:56:26 Test Item Value Reference Range Interpretation Comments POCT GLU (test code = 6937713602) 229 mg/dL 70-110 H Lab Interpretation (test code = Abnormal 33031-9) [facility] GLUCOSE (AUTOMATED)2021-03-09 22:09:58 Test Item Value Reference Range Interpretation Comments POCT GLU (test code = 1553717327) 141 mg/dL 70-110 H Lab Interpretation (test code = Abnormal 53445-1) [facility] GLUCOSE (AUTOMATED)2021-03-09 18:37:51 Test Item Value Reference Range Interpretation Comments POCT GLU (test code = 3782698879) 229 mg/dL 70-110 H Lab Interpretation (test code = Abnormal 91307-8) [facility] GLUCOSE (AUTOMATED)2021-03-09 13:56:35 Test Item Value Reference Range Interpretation Comments POCT GLU (test code = 7100338768) 181 mg/dL 70-110 H Lab Interpretation (test code = Abnormal 94325-6) [facility] (NA, K, CL, CO2, GLUCOSE, BUN, CREATININE, CA)2021-03-09 10:31:38 Test Item Value Reference Range Interpretation Comments NA (test code = 133 mmol/L 135-145 L 8638812804) K (test code = 3.9 mmol/L 3.5-5.0 9810336491) CL (test code = 104 mmol/L 98-108 2023930906) CO2 TOTAL (test code = 20 mmol/L 23-31 L 4177687814) AGAP (test code = 2-16 0516156462) BUN (test code = 24 mg/dL 7-23 H 0475398595) GLUCOSE (test code = 178 mg/dL 70-110 H 6809127997) CREATININE (test code = 1.14 mg/dL 0.50-1.04 H 6254167689) CALCIUM (test code = 9.1 mg/dL 8.6-10.6 5164111411) eGFR (test code = mL/min/1.73m2 1673923678) CARL (test code = CARL) Association of Glomerular Filtration Rate (GFR) and Staging of Kidney Disease* + --+ --+ ------+| GFR (mL/min/1.73 m2) ?| With Kidney Damage ?| ?Without Kidney Damage+ --------+ --------+ +| ?>90 ?| ?Stage one ?| ? Normal ?+ ---+ ---+ -------+| ?60-89 ?| ?Stage two ?| ? Decreased GFR ? + --+ --+ ------+| ?30-59 ?| ?Stage three ?| ? Stage three ? + --+ --+ ------+| ?15-29 ?| ?Stage four ? | ? Stage four ?+ ---+ ---+ -------+| ?<15 (or dialysis) ? ?| ?Stage five ? | ? Stage five ?+ ---+ ---+ -------+ *Each stage assumes the associated GFR level has been in effect for at least three months. ?Stages 1 to 5, with or without kidney disease, indicate chronic kidney disease. Notes: Determination of stages one and two (with eGFR >59mL/min/1.73 m2) requires estimation of kidney damage for at least three months as defined by structural or functional abnormalities of the kidney, manifested by either:Pathological abnormalities or Markers of kidney damage (including abnormalities in the composition of the blood or urine or abnormalities in imaging tests). Lab Interpretation Abnormal (test code = 89776-2) [facility] with [id number] 09:24:40 Test Item Value Reference Range Interpretation Comments WBC (test code = See_Comment [Automated 6690-2) message] The sy stem which generated this result transmitted reference range : 4.30 - 11.10 10*3/?L. The reference range was not used to interpret this result as normal/abnormal . RBC (test code = See_Comment L [Automated 789-8) message] The sy stem which generated this result transmitted reference range : 3.93 - 5.25 10*6/?L. The reference range was not used to interpret this result as normal/abnormal . HGB (test code = 9.8 g/dL 11.6-15.0 L 718-7) HCT (test code = 29.2 % 35.7-45.2 L 4544-3) MCV (test code = 92.1 fL 80.6-95.5 787-2) MCH (test code = 30.9 pg 25.9-32.8 785-6) MCHC (test code = 33.6 g/dL 31.6-35.1 786-4) RDW-SD (test code = 50.2 fL 39.0-49.9 H 90128-4) RDW-CV (test code = 14.9 % 12.0-15.5 788-0) PLT (test code = See_Comment [Automated 777-3) message] The sy stem which generated this result transmitted reference range : 166 - 358 10*3/ ?L. The reference r cheyanne was not used to interpret this result as normal/abnormal . MPV (test code = 10.1 fL 9.5-12.9 29685-9) NRBC/100 WBC (test See_Comment [Automat ed code = 2287079120) message] The system which generated this result transmitted reference range : 0.0 - 10.0 /100 WBCs. The refer ence range was not u sed to interpret th is result as normal/abnormal . NRBC x10^3 (test code <0.01 See_Comment [Auto mated = 5359377097) message] The s ystem which generated this result transmitted reference range : 10*3/?L. The reference range was not used to interpret this result as normal/abnormal . GRAN MAT (NEUT) % 66.3 % (test code = 770-8) IMM GRAN % (test code 0.40 % = 7120836558) LYMPH % (test code = 28.5 % 736-9) MONO % (test code = 4.6 % 5905-5) EOS % (test code = 0.0 % 713-8) BASO % (test code = 0.2 % 706-2) GRAN MAT x10^3(ANC) 3.61 10*3/uL 1.88-7.09 (test code = 3764313011) IMM GRAN x10^3 (test <0.03 0.00-0.06 code = 1061389425) LYMPH x10^3 (test code 1.55 10*3/uL 1.32-3.29 = 731-0) MONO x10^3 (test code 0.25 10*3/uL 0.33-0.92 L = 742-7) EOS x10^3 (test code = <0.03 0.03-0.39 L 711-2) BASO x10^3 (test code <0.03 0.01-0.07 = 704-7) Lab Interpretation Abnormal (test code = 70790-2) [facility]FF[facility] [id number] 07:37:08 Test Item Value Reference Range Interpretation Comments Clostridioides (Clostridium) Positive Negative A difficile (test code = 27641-0) Lab Interpretation (test code = Abnormal 15375-7) [facility] CHEST 1 [id number] 02:33:53No active pulmonary disease. RL: [id number] END OF REPORT Ordering Physician: JORDAN WILL Clinical Indication: short of breath Additional Clinical Information: Technical Quality: Good Comparison: None Technique: Portable chest obtained at 2130 hours Findings: There is shallow inspiration. No infiltrate or effusion. Theheart size is normal.[facility], Radiant Results Inft User - 03/08/2021 9:34 PM CDT Ordering Physician: JORDAN Morininical Indication: short of breath Additional Clinical Information:Technical Quality: GoodComparison: NoneTechnique: Portable chest obtained at 2130 hoursFindings: There is shallow inspiration. No infiltrate or effusion. Theheart size is normal.IMPRESSIONNo active pulmonary disease.RL: [id number] OF REPORT Health TylerD-[id number] 02:08:51 Test Item Value Reference Interpretation Comments Range D-DIMER (test code = See_Comment H [Autom ated 8633155196) message] The system which generated this result transmitted reference range : <0.41 ?g/mL (FEU). The reference range was not used to interpret this result as normal/abnormal . CARL (test code = This test may be CARL) used in conjunction with a clinical pretest probability (PTP) assessment model to exclude venous thromboembolism (VTE) in patients suspected of deep venous thrombosis (DVT) and pulmonary embolism (PE) A D-Dimer value less than 0.50 ?g/ml (FEU) has a negative predicative value of 96 to 100% (95% CI)and 97 to 100% (95% CI) as an aid in the diagnosis of deep vein thrombosis (DVT) and pulmonary embolism when there is low or moderate pretest probability of PE or DVT. D-Dimer values are expressed in initial fibrinogen equivalent units (FEU)" The assay results should be used with other information, including the clinical context, in forming a diagnosis. Lab Interpretation Abnormal (test code = 40178-4) [facility] 19:36:24 Test Item Value Reference Range Interpretation Comments APPEARANCE (test code = Clear Clear 2700831291) COLOR (test code = Yellow Yellow 0443517969) PH (test code = 4.8-8.0 7190911052) SP GRAVITY (test code = 1.003-1.030 8363594089) GLU U QUAL (test code = Normal Normal 2148801582) BLOOD (test code = Negative Negative 7948807347) KETONES (test code = 5 mg/dL Negative A 1856877938) PROTEIN (test code = Negative Negative 2887-8) UROBILIN (test code = Normal Normal 1517569374) BILIRUBIN (test code = Negative Negative 4731485078) NITRITE (test code = Negative Negative 3025908208) LEUK NATHAN (test code = Negative Negative 9178324788) RBC/HPF (test code = <1 See_Comment [Autom ated message] 5471527977) The system [employer] generated this result transmitted ref erence range: 0 - 3 HP F. The reference range was not used to int erpret this result as normal/abnormal . WBC/HPF (test code = <1 See_Comment [Autom ated message] 2074577357) The system [employer] generated this result transmitted ref erence range: 0 - 5 HP F. The reference range was not used to int erpret this result as normal/abnormal . BACTERIA (test code = Negative Negative 1874131731) Lab Interpretation (test Abnormal code = 77543-1) [facility]ID NOW RAPID TESTING)2021-03-08 19:25:38 Test Item Value Reference Range Interpretation Comments SARS-CoV-2 Rapid ID NOW Not Detected Not Detected (test code = 73930-3) CARL (test code = CARL) ID NOW COVID-19 Assay is an isothermal nucleic acid amplification test intended for the qualitative detection of nucleic acid from SARS-CoV-2 viral RNA in nasopharyngeal (NET MAKER) specimens. It is used under Emergency Use Authorization (EUA) by FDA. The limit of detection (LOD) of the assay is 125 Genome Equivalents/mL. A positive result is indicative of the presence of SARS-CoV-2 RNA. ?Clinical correlation with patient history and other diagnostic information is necessary to determine patient infection status. A negative (Not Detected) result does not preclude SARS-CoV-2 infection. In patients with clinical symptoms and other tests that are consistent with SARS-CoV-2 infection, negative results should be treated as presumptive negative and a new specimen should be tested with alternative PCR molecular test. Invalid: Please collect a new specimen for repeat patient testing if clinically indicated. Lab Interpretation Normal (test code = 44238-4) [facility] [id number] 18:26:20 Test Item Value Reference Range Interpretation Comments FREE T4 (test code = See_Comment H [Autom ated message] 8918672326) The system [employer] generated this result transmitted ref erence range: 0.78 - 2 .20 ng/dL:. The ref erence range was not u sed to interpret this result as normal/abnor mal. Lab Interpretation (test Abnormal code = 85173-8) [facility] W [id number] 18:17:23 1. ?No acute intra-abdominal abnormality. 2. ?Colonic diverticulosis. 3. Unchanged pancreatic cystic lesions which may represent IPMN or othercystic pancreatic tumor/lesions. If prior evaluation wasnot performed,recommend follow- up with MRI pancreas. Preliminary Report Dictated by Resident: Mark Russell I, Skylar ?MD Du., have reviewed this study and agree with theabove report.EXAM: CT ABDOMEN PELVIS W CONTRAST HISTORY: 85 years-old Female: Diverticulitis, complication suspected. SOB,abdominal pain, anuria, fatigue and black stool yesterday" TECHNIQUE: Contiguous axial imaging from thelevel of the lung basesthrough the proximal thighs was performed following the uncomplicatedadministration of intravenous contrast. Coronal and sagittalreconstructions were obtained. COMPARISON: CT abdomen pelvis dated 02/21/2021 FINDINGS: LOWER THORAX: The lung bases are clear. A 2.6 cm thin-walled pulmonary cystis seen in the left lower lobe. Please refer to the same day CT angiogramof the chest fordetailed intrathoracic findings. LIVER: The liver is normal in size and contour. No focal hepatic lesion isseen. GALLBLADDER AND BILIARY TREE: The gallbladder appears unremarkable. Noradiopaque gallstones are seen. No intra or extrahepatic biliary ductaldilation is visualized. SPLEEN: The spleen appears unremarkable. PANCREAS: Multiple hypodense cystic structures in the pancreas are againnoted including 2.3 x 1.6 cm in pancreatic body and septated cyst versusclustered cysts measuring 1.8 x 2.7 cm in uncinate process. Diffuse fattyatrophy is noted. ADRENAL GLANDS: No adrenal masses are seen. KIDNEYS: A 1.0 cm low attenuating cystic structure the right superior poleis unchanged and likely represents a simple cyst. Smaller subcentimeterstructures in the bilateral kidneys likely represent the same.Nohydronephrosis, stones, or solid masses are visualized. PELVIS/BLADDER: The bladder is adequately distended and appearsunremarkable. Postsurgical changes of hysterectomy are noted. The leftovary is unremarkable. The ovaries are atrophic. No adnexal masses. GI TRACT: No dilation or bowel wall thickening is seen. The appendix tracksalong the paracolic gutter and is unremarkable (4:57). Scattereddiverticuli are seen throughout the sigmoid. A small sliding-type hiatalhernia is seen. PERITONEUM AND RETROPERITONEUM: No intra-abdominal free air or fluidcollection is visualized. A fat-containing umbilical hernia measuresapproximately 1.1 cm at the level of the fascial defect. ? LYMPH NODES: No enlarged intra-abdominal or pelvic lymph nodes are found. VESSELS: The vessels appear unremarkable. BONES AND SOFT TISSUES: No suspicious lytic or sclerotic bony lesions arepresent. Grade 1 anterolisthesis of L4on L5 and grade 2 anterolisthesis ofL5 on S1 is seen. A sclerotic focus in the L4 vertebral body likelyrepresents a bone island. Severe disc height loss is seen at L2-L3 andL5-S1. Diffuse osteopenia isseen. [facility], Radiant Results Inft User - 03/08/2021 1:18 PM CDT EXAM: CT ABDOMEN PELVIS W CONTRASTHISTORY: 85 years-old Female: Diverticulitis, complication suspected. SOB,abdominal pain, anuria, fatigue and black stool yesterday"TECHNIQUE: Contiguous axial imaging from the level of the lung basesthrough the proximal thighs was performed foll owing the uncomplicatedadministration of intravenous contrast. Coronal and sagittalreconstructions were obtained. COMPARISON: CT abdomen pelvis dated 02/21/2021FINDINGS:LOWER THORAX: The lung bases are clear. A 2.6 cm thin-walled pulmonary cystis seen in the left lower lobe. Please refer to the same dayCT angiogramof the chest for detailed intrathoracic findings.LIVER: The liver is normal in size and contour. No focal hepatic lesion isseen.GALLBLADDER AND BILIARY TREE: The gallbladder appears unremarkable. Noradiopaque gallstones are seen. No intra or extrahepatic biliary ductaldilation is visualized. SPLEEN: The spleen appears unremarkable.PANCREAS: Multiple hypodense cystic structures in the pancreas are againnoted including 2.3 x 1.6 cm in pancreatic body and septated cyst versusclustered cystsmeasuring 1.8 x 2.7 cm in uncinate process. Diffuse fattyatrophy is noted.ADRENAL GLANDS: No adrenalmasses are seen. KIDNEYS: A 1.0 cm low attenuating cystic structure the right superior poleis unchanged and likely represents a simple cyst. Smaller subcentimeterstructures in the bilateral kidneys likely represent the same. Nohydronephrosis, stones, or solid masses are visualized.PELVIS/BLADDER: The bladder is adequately distended and appearsunremarkable. Postsurgical changes of hysterectomy are noted. The leftovary is unremarkable. The ovaries are atrophic. No adnexal masses.GI TRACT: No dilation or bowel wall thickening is seen. The appendix tracksalong the paracolic gutter and is unremarkable (4:57). Scattereddiverticuli are seen throughout the sigmoid. A small sliding-type hiatalhernia is seen.PERITONEUM AND RETROPERITONEUM: No intra-abdominal free air or fluidcollection is visualized. A fat-containing umbilical hernia measuresapproximately 1.1 cm at the level of the fascial defect. LYMPH NODES: No enlarged intra-abdominal or pelvic lymph nodes are found.VESSELS: The vessels appear unremarkable.BONES AND SOFT TISSUES: No suspicious lytic or sclerotic bony lesions arepresent. Grade 1 anterolisthesis of L4 on L5 and grade 2 anterolisthesis ofL5 on S1 is seen. A sclerotic focus in the L4 vertebral body likelyrepresents a bone island. Severe disc height loss is seen at L2-L3 andL5-S1. Diffuse osteopenia is seen.IMPRESSION1. No acute intra- abdominal abnormality. 2. Colonic diverticulosis. 3. Unchanged pancreatic cystic lesions which may represent IPMN or othercystic pancreatic tumor/lesions. If prior evaluation was not performed,recommend follow-up with MRI pancreas.Preliminary Report Dictated by Resident: Mark Shi, Skylar Sandy MD., have reviewed this study and agree withtheabove report.[facility] [id number] 18:05:18 No pulmonary emboli. Colonic diverticulosis and a small hiatal hernia. CT SCAN OF THE CHEST WITH CONTRAST 03/08/2021 12:13 PM TECHNIQUE: Multidetector helical CT scan of the chest was performedfollowing the intravenous administration of contrast. Coronal and sagittalreformats as well axial MIPs imaging were acquired. CLINICAL INFORMATION: PE suspected, high pretest prob COMPARISON: Chest radiograph 02/20/2021 FINDINGS: PULMONARY ARTERIES: The enhancement of the pulmonary artery is adequate. Nopulmonary emboli. Devices: None. PULMONARY PARENCHYMA/PLEURA: The ?pulmonary parenchyma is normal. No focalopacities. A thin linearatelectasis is noted in left lower lobe (6:100) A thin wall 2.9 cm this isnoted in the posterior basal segment of the left lower lobe. o suspicious nodules. No pleural effusion.No pneumothorax. LYMPH NODES: No thoracic adenopathy. MEDIASTINUM/ LOWER NECK: ?No mediastinal massis seen.. No actionablethyroid nodule is present. CARDIOVASCULAR: The cardiac size is normal. ?No pericardial effusion. Mildatherosclerotic disease. The great vessels caliber is normal. UPPER ABDOMEN: Small type I hiatal hernia. Colonic diverticula.. BONES/ CHEST WALL: No aggressive osseous lesion ispresent. Mild superiorendplate compression of T1. Exaggerated kyphosis related to loss ofintervertebral disc spaces at T6-T9.A punctate sclerotic lesion in inferior angle of the right scapulasuggestiveof benign lesion, likely bone island. [facility], Radiant Results Inft User - 03/08/2021 1:[address] SCAN OF THE CHEST WITH CONTRAST 03/08/2021 12:13 PMTECHNIQUE: Multidetector helical CT scan of the chest was performedfollowing the intravenous administration of contrast. Coronal and sagittalreformats as well axial MIPs imaging were acquired.CLINICAL INFORMATION: PE suspected, high pretest prob COMPARISON: Chest radiograph 02/20/2021FINDINGS: PULMONARY ARTERIES: The enhancement of the pulmonary artery is adequate. Nopulmonary emboli.Devices: None.PULMONARY PARENCHYMA/PLEURA: The pulmonary parenchyma is normal. No focal opacities. A thin linearatelectasis is noted in left lower lobe (6:100) A thin wall 2.9 cm this isnoted in the posterior basal segment of the left lower lobe. o suspicious nodules.No pleural effusion. No pneumothorax.LYMPH NODES: No thoracic adenopathy. MEDIASTINUM/ LOWER NECK: No mediastinal mass is seen.. No actionablethyroid nodule is present.CARDIOVASCULAR: The cardiac size is normal. No pericardial effusion. Mildatherosclerotic disease. The great vessels caliber is normal.UPPER ABDOMEN: Small type I hiatal hernia. Colonic diverticula.. BONES/ CHEST WALL: No aggressive osseous lesion is present. Mild superiorendplate compression of T1. Exaggerated kyphosis related to loss ofintervertebral disc spaces at T6-T9.A punctate sclerotic lesion in inferior angle of the right scapulasuggestive of benign lesion, likely bone island.IMPRESSIONNo pulmonary emboli.Colonic diverticulosis and a small hiatal hernia.[facility] Tyler[facility]YROID STIMULATING [id number] 17:33:13 Test Item Value Reference Range Interpretation Comments TSH (test code = See_Comment [Automated message] [id number]) The system [employer] generated this result transmitted ref erence range: 0.45 - 4 .70 mIU/L. The refe rence range was not u sed to interpret this result as normal/abnor mal. Lab Interpretation (test Normal code = 56182-2) [facility] TylerTROPONIN [id number] 17:14:54 Test Item Value Reference Range Interpretation Comments TROPONIN I (test <0.012 See_Comment [Automated code = 6075865808) message] The system which generated this result transmitted reference range : <=0.034 ng/mL. The reference range was not used to interpr et this result as normal/abnormal . CARL (test code = Equal or Less than CARL) 0.034 ng/ml---Normal ?Note: Cardiac troponin begins to rise 3-4 hours after the onset of ischemia. Repeat in 4-6 hours if the sample was drawn within 3-4 hours of the onset of the symptom and found normal. Between 0.035 and 0.120 ng/mL--- Borderline. Questionable myocardial injury or necrosis ? ?Note: Serial measurement may be necessary to confirm or exclude the diagnosis of myocardial injury or necrosis; Clinical correlation (symptoms, EKGs, imaging studies, and others) required; Repeat in 4-6 hours if clinically indicated. ? Equal or Higher than 0.121 ng/mL---Abnormal. Myocardial Injury or Necrosis Likely ? Biotin has been reported to cause a negative bias, interpret results relative to patient's use of biotin. ? Lab Interpretation Normal (test code = 13807-4) [facility] Tyler[facility]-TERMINAL [id number] 17:11:55 Test Item Value Reference Range Interpretation Comments NT-proBNP (test code 861 pg/mL See_Comment H [Autom ated = 6589836816) message] The system which generated this result transmitted reference range : <=450. The reference range was not used to interpret this result as normal/abnormal . CARL (test code = CARL) Biotin has been reported to cause a negative bias, interpret results relative to patient's use of biotin. Lab Interpretation Abnormal (test code = 97737-5) [facility] TylerCOMP. METABOLIC PANEL ([id number])2021-03-08 17:02:50 Test Item Value Reference Range Interpretation Comments NA (test code = 136 mmol/L 135-145 1268971472) K (test code = 3.2 mmol/L 3.5-5.0 L 1920097904) CL (test code = 102 mmol/L 98-108 4490380700) CO2 TOTAL (test code = 24 mmol/L 23-31 9220705480) AGAP (test code = 2-16 3067192004) BUN (test code = 18 mg/dL 7-23 7713263816) GLUCOSE (test code = 80 mg/dL 70-110 5100937414) CREATININE (test code = 1.12 mg/dL 0.50-1.04 H 9972345984) TOTAL BILI (test code = 0.6 mg/dL 0.1-1.3 5209936877) CALCIUM (test code = 8.9 mg/dL 8.6-10.6 1447332897) T PROTEIN (test code = 5.8 g/dL 6.3-8.2 L 7099007219) ALBUMIN (test code = 3.3 g/dL 3.5-5.0 L 1381445259) ALK PHOS (test code = 83 U/L 34-122 4212397776) ALTv (test code = 14 U/L 5-35 1742-6) AST(SGOT) (test code = 27 U/L 13-40 3739094256) eGFR (test code = mL/min/1.73m2 2669712620) CARL (test code = CARL) Association of Glomerular Filtration Rate (GFR) and Staging of Kidney Disease* + --+ --+ ------+| GFR (mL/min/1.73 m2) ?| With Kidney Damage ?| ?Without Kidney Damage+ --------+ --------+ +| ?>90 ?| ?Stage one ?| ? Normal ?+ ---+ ---+ -------+| ?60-89 ?| ?Stage two ?| ? Decreased GFR ? + --+ --+ ------+| ?30-59 ?| ?Stage three ?| ? Stage three ? + --+ --+ ------+| ?15-29 ?| ?Stage four ? | ? Stage four ?+ ---+ ---+ -------+| ?<15 (or dialysis) ? ?| ?Stage five ? | ? Stage five ?+ ---+ ---+ -------+ *Each stage assumes the associated GFR level has been in effect for at least three months. ?Stages 1 to 5, with or without kidney disease, indicate chronic kidney disease. Notes: Determination of stages one and two (with eGFR >59mL/min/1.73 m2) requires estimation of kidney damage for at least three months as defined by structural or functional abnormalities of the kidney, manifested by either:Pathological abnormalities or Markers of kidney damage (including abnormalities in the composition of the blood or urine or abnormalities in imaging tests). Lab Interpretation Abnormal (test code = 81851-0) [facility] TylerLIPASE, [id number] 17:02:29 Test Item Value Reference Range Interpretation Comments LIPASE (test code = 1032760917) 189 U/L 0-220 Lab Interpretation (test code = Normal 21925-1) [facility] TylerCB WITH [id number] 17:00:16 Test Item Value Reference Range Interpretation Comments WBC (test code = See_Comment [Automated 2390-2) message] The sy stem which generated this result transmitted reference range : 4.30 - 11.10 10*3/?L. The reference range was not used to interpret this result as normal/abnormal . RBC (test code = See_Comment L [Automated 429-8) message] The sy stem which generated this result transmitted reference range : 3.93 - 5.25 10*6/?L. The reference range was not used to interpret this result as normal/abnormal . HGB (test code = 9.9 g/dL 11.6-15.0 L 718-7) HCT (test code = 30.0 % 35.7-45.2 L 4544-3) MCV (test code = 92.6 fL 80.6-95.5 787-2) MCH (test code = 30.6 pg 25.9-32.8 785-6) MCHC (test code = 33.0 g/dL 31.6-35.1 786-4) RDW-SD (test code = 50.5 fL 39.0-49.9 H 23799-8) RDW-CV (test code = 15.0 % 12.0-15.5 788-0) PLT (test code = See_Comment H [Automated 777-3) message] The sy stem which generated this result transmitted reference range : 166 - 358 10*3/ ?L. The reference r cheyanne was not used to interpret this result as normal/abnormal . MPV (test code = 9.7 fL 9.5-12.9 59218-3) NRBC/100 WBC (test See_Comment [Automat ed code = 1562501653) message] The system which generated this result transmitted reference range : 0.0 - 10.0 /100 WBCs. The refer ence range was not u sed to interpret th is result as normal/abnormal . NRBC x10^3 (test code <0.01 See_Comment [Auto mated = 5820730712) message] The s ystem which generated this result transmitted reference range : 10*3/?L. The reference range was not used to interpret this result as normal/abnormal . GRAN MAT (NEUT) % 24.4 % (test code = 770-8) IMM GRAN % (test code 0.30 % = 9511249417) LYMPH % (test code = 57.6 % 736-9) MONO % (test code = 14.8 % 5905-5) EOS % (test code = 2.0 % 713-8) BASO % (test code = 0.9 % 706-2) GRAN MAT x10^3(ANC) 2.31 10*3/uL 1.88-7.09 (test code = 7058541673) IMM GRAN x10^3 (test 0.03 10*3/uL 0.00-0.06 code = 2682735904) LYMPH x10^3 (test code 5.46 10*3/uL 1.32-3.29 H = 731-0) MONO x10^3 (test code 1.40 10*3/uL 0.33-0.92 H = 742-7) EOS x10^3 (test code = 0.19 10*3/uL 0.03-0.39 711-2) BASO x10^3 (test code 0.09 10*3/uL 0.01-0.07 H = 704-7) Lab Interpretation Abnormal (test code = 41797-1) [facility]eraPTT20[facility] 17:00:11 Test Item Value Reference Range Interpretation Comments APTT Patient (test See_Comment [Automat ed code = 3173-2) message] The system which generated this result transmitted reference range : 23 - 38 Seconds . The reference range was not used to interpr et this result as normal/abnormal . CARL (test code = CARL) The [facility] patient population mean normal value for aPTT is 30 seconds. Lab Interpretation Normal (test code = 79180-5) [facility] TylerPROTHROMBIN TIME / [id number] 16:58:08 Test Item Value Reference Range Interpretation Comments PROTIME PATIENT (test See_Comment [Auto mated message] code = 5964-2) The system wh ich generated this result transmitted ref erence range: 12.0 - 1 4.7 Seconds. The re ference range was not u sed to interpret this result as normal/abnor mal. INR (test code = 6301-6) Nor mal INR <1.1; Warfarin Therap eutic range 2.0 to 3. 0 or 2.5 to 3.5, dep ending upon the indica tions. Lab Interpretation (test Normal code = 97719-0) [facility]2021-02-22 17:14:54 Test Item Value Reference Range Interpretation Comments POCT GLU (test code = 0174660269) 228 mg/dL 70-110 H Lab Interpretation (test code = Abnormal 88951-9) [facility] TylerLAB ONLY COVID [id number] 15:07:04COVID DMT InterpretationInterpretation/Recommendations: Molecular NAAT Tests for Active Infection with the SARS-CoV-2 Virus: The patient has currently tested negative for the SARS-CoV-2 virus that causes COVID-19 illness. This most likely indicates that the patient does not have an active infection with the SARS-CoV-2 virus. However, infection is not completely ruled out as the false negative rate for molecular NAAT testing using a nasopharyngeal sample can be up to 30%, mostly dependent on the timing of sample collection in relation to illness onset and any deficiencies in sampling techniques. If the patient has symptoms concerning for COVID-19 illness, a repeat NAAT test (PCR, Rapid ID Now, etc.) should be performed, at which time the SARS-CoV-2 virus - if present - may have reached a detectable viral load (usually peaking by the end of the first week of symptoms). Tests for IgM and/or IgGAntibodies to the SARS-CoV-2 Virus: If the patient develops COVID-19 illness in the future, testingfor IgM and IgG antibodies approximately 3 weeks after illness onset will likely indicate if the patient has produced antibodies to the SARS-CoV-2 virus. However, some patients may take longer to develop detectable antibodies, while some patients who were infected with SARS-CoV-2 may never develop antibodies. While antibodies to SARS-CoV-2 may provide some degree of immunity, at this time the strength and duration of the antibody response is unknown. ? ? Interpretation Result Comments:These interpretation comments are basedupon all COVID-19 testing the patient has had at [facility], including molecular NAAT testing (more commonly known as PCR testing and Rapid ID Now testing) and antibody testing. It does not take into accountany testing that a patient has had outside of the [facility] medical record. [facility] LABORATORY SERVICESCOVID [id number] Rapid ID NOW (no units) ? ? Date ? Value ? 02/20/2021 ? Not Detected ? [facility]2021-02-22 13:41:36 Test Item Value Reference Range Interpretation Comments POCT GLU (test code = 1206044422) 242 mg/dL 70-110 H Lab Interpretation (test code = Abnormal 79809-0) [facility] TylerURINE [id number] 12:26:08 Test Item Value Reference Range Interpretation Comments URINE CULTURE (test No aerobic growth (< code = 630-4) 1000 CFU/mL) [facility] Tyler[facility]MINAL [id number] 10:40:25 Test Item Value Reference Range Interpretation Comments NT-proBNP (test code 1440 pg/mL See_Comment H [Autom ated = 0968136672) message] The system which generated this result transmitted reference range : <=450. The reference range was not used to interpret this result as normal/abnormal . CARL (test code = CARL) Biotin has been reported to cause a negative bias, interpret results relative to patient's use of biotin. Lab Interpretation Abnormal (test code = 05172-3) [facility] TylerCOMP[facility] METABOLIC PANEL (42937)2021-02-22 10:34:04 Test Item Value Reference Range Interpretation Comments NA (test code = 132 mmol/L 135-145 L 7958877351) K (test code = 4.7 mmol/L 3.5-5.0 6363851035) CL (test code = 105 mmol/L 98-108 5257603232) CO2 TOTAL (test code = 20 mmol/L 23-31 L 7226174428) AGAP (test code = 2-16 7352005090) BUN (test code = 22 mg/dL 7-23 5083682426) GLUCOSE (test code = 212 mg/dL 70-110 H 8921351754) CREATININE (test code = 1.13 mg/dL 0.50-1.04 H 5117991234) TOTAL BILI (test code = 0.2 mg/dL 0.1-1.7 0666794097) CALCIUM (test code = 7.8 mg/dL 8.6-10.6 L 8593185304) T PROTEIN (test code = 5.1 g/dL 6.3-8.2 L 2852744505) ALBUMIN (test code = 2.8 g/dL 3.5-5.0 L 7127863584) ALK PHOS (test code = 38 U/L 34-122 0715221236) ALTv (test code = 13 U/L 5-35 1742-6) AST(SGOT) (test code = 21 U/L 13-40 1159114878) eGFR (test code = mL/min/1.73m2 5119102141) CARL (test code = CARL) Association of Glomerular Filtration Rate (GFR) and Staging of Kidney Disease* + --+ --+ ------+| GFR (mL/min/1.73 m2) ?| With Kidney Damage ?| ?Without Kidney Damage+ --------+ --------+ +| ?>90 ?| ?Stage one ?| ? Normal ?+ ---+ ---+ -------+| ?60-89 ?| ?Stage two ?| ? Decreased GFR ? + --+ --+ ------+| ?30-59 ?| ?Stage three ?| ? Stage three ? + --+ --+ ------+| ?15-29 ?| ?Stage four ? | ? Stage four ?+ ---+ ---+ -------+| ?<15 (or dialysis) ? ?| ?Stage five ? | ? Stage five ?+ ---+ ---+ -------+ *Each stage assumes the associated GFR level has been in effect for at least three months. ?Stages 1 to 5, with or without kidney disease, indicate chronic kidney disease. Notes: Determination of stages one and two (with eGFR >59mL/min/1.73 m2) requires estimation of kidney damage for at least three months as defined by structural or functional abnormalities of the kidney, manifested by either:Pathological abnormalities or Markers of kidney damage (including abnormalities in the composition of the blood or urine or abnormalities in imaging tests). Lab Interpretation Abnormal (test code = 28187-2) [facility] TylerMAGNESIUM2021-05-07 10:34:04 Test Item Value Reference Range Interpretation Comments MAGNESIUM (test code = 3358718443) 1.9 mg/dL 1.7-2.4 Lab Interpretation (test code = Normal 54247-0) [facility] TylerURIC [id number] 10:33:44 Test Item Value Reference Range Interpretation Comments URIC ACID (test code = 4618240545) 3.6 mg/dL 2.9-6.0 Lab Interpretation (test code = Normal 20616-5) [facility] WITH [id number] 10:04:39 Test Item Value Reference Range Interpretation Comments WBC (test code = See_Comment [Automated 6690-2) message] The sy stem which generated this result transmitted reference range : 4.30 - 11.10 10*3/?L. The reference range was not used to interpret this result as normal/abnormal . RBC (test code = See_Comment L [Automated 789-8) message] The sy stem which generated this result transmitted reference range : 3.93 - 5.25 10*6/?L. The reference range was not used to interpret this result as normal/abnormal . HGB (test code = 8.7 g/dL 11.6-15.0 L 718-7) HCT (test code = 25.6 % 35.7-45.2 L 4544-3) MCV (test code = 91.8 fL 80.6-95.5 787-2) MCH (test code = 31.2 pg 25.9-32.8 785-6) MCHC (test code = 34.0 g/dL 31.6-35.1 786-4) RDW-SD (test code = 49.0 fL 39.0-49.9 42508-6) RDW-CV (test code = 14.8 % 12.0-15.5 788-0) PLT (test code = See_Comment [Automated 777-3) message] The sy stem which generated this result transmitted reference range : 166 - 358 10*3/ ?L. The reference r cheyanne was not used to interpret this result as normal/abnormal . MPV (test code = 9.8 fL 9.5-12.9 40298-6) NRBC/100 WBC (test See_Comment [Automat ed code = 8565515891) message] The system which generated this result transmitted reference range : 0.0 - 10.0 /100 WBCs. The refer ence range was not u sed to interpret th is result as normal/abnormal . NRBC x10^3 (test code <0.01 See_Comment [Auto mated = 0806694476) message] The s ystem which generated this result transmitted reference range : 10*3/?L. The reference range was not used to interpret this result as normal/abnormal . GRAN MAT (NEUT) % 82.0 % (test code = 770-8) IMM GRAN % (test code 0.80 % = 0477034425) LYMPH % (test code = 10.2 % 736-9) MONO % (test code = 6.8 % 5905-5) EOS % (test code = 0.0 % 713-8) BASO % (test code = 0.2 % 706-2) GRAN MAT x10^3(ANC) 8.25 10*3/uL 1.88-7.09 H (test code = 4886135250) IMM GRAN x10^3 (test 0.08 10*3/uL 0.00-0.06 H code = 9180065641) LYMPH x10^3 (test code 1.03 10*3/uL 1.32-3.29 L = 731-0) MONO x10^3 (test code 0.68 10*3/uL 0.33-0.92 = 742-7) EOS x10^3 (test code = <0.03 0.03-0.39 L 711-2) BASO x10^3 (test code <0.03 0.01-0.07 = 704-7) Lab Interpretation Abnormal (test code = 10362-0) [facility] GLUCOSE (AUTOMATED)2021-02-22 02:20:17 Test Item Value Reference Range Interpretation Comments POCT GLU (test code = 2476149967) 318 mg/dL 70-110 H Lab Interpretation (test code = Abnormal 81242-5) [facility] TylerVITAMIN B12, [id number] 21:50:20 Test Item Value Reference Range Interpretation Comments VIT B12 (test code = 434 pg/mL 240-930 4406305321) CARL (test code = CARL) Biotin has been reported to cause a positive bias, interpret results relative to patient's use of biotin. Lab Interpretation (test Normal code = 73051-3) [facility] GLUCOSE (AUTOMATED)2021-02-21 21:19:53 Test Item Value Reference Range Interpretation Comments POCT GLU (test code = 4095361746) 335 mg/dL 70-110 H Lab Interpretation (test code = Abnormal 67888-2) [facility] TylerLEGIONELLA URINARY ANTIGEN [id number] 19:47:22 Test Item Value Reference Range Interpretation Comments Legionella Urinary Negative Negative Antigen (test code = 0066715936) CARL (test code = CARL) Negative for L. pneumophilia serogroup I antigen in urine suggesting no recent or current infection. Infection due to Legionella cannot be ruled out since other serogroups and species may cause disease. Furthermore, antigens may not be present in urine during early stage of infection, or the level of antigen present in urine may be below the detection limit of the test. Lab Interpretation (test Normal code = 87619-1) [facility] TylerPROCALCITONIN2021-05-06 16:59:40 Test Item Value Reference Range Interpretation Comments Procalcitonin (test 0.08 ng/mL <0.07 H code = 8118915609) CARL (test code = CARL) INTERPRETATION OF PROCALCITONIN RESULTS IN ADULTS >= 18 YEARS OF AGE Initiation and discontinuation of antibiotics on patients with suspected or confirmed Lower Respiratory Tract Infection in Adults >= 18 years of age. + +-------- --------+ + -----+|Procalcitonin |Interpretation ?|Antibiotic ? ? |Considerations ? |ng/mL ? | ?|recommendation | ? + +-------- --------+ + -----+| <0.1 ? | Bacterial ? ? ?| Strongly ? ? ?| ? | ?| infection very | discouraged ? | Overruling: ? | ?| unlikely ? ? ? | ? | ? Clinically unstable ? ? ? + +-------- --------+ + ? High risk for adverse ? ? | <0.25 ?| Bacterial ? ? ?| Discouraged ? | ? outcome ? | ?| infection ? ? ?| ? | ? SEE IMPORTANT NOTE ?| ?| unlikely ? ? ? | ? | ? + +-------- --------+ + -----+| >=0.25 ? ? ? | Bacterial ? ? ?| Encouraged ? ?| ? | ?| infection ? ? ?| ? | ? | ?| likely ? | ? | Consider treatment failure ?+ +------- ---------+ -+ if levels does not decrease | >0.5 ? | Bacterial ? ? ?| Strongly ? ? ?| appropriately ? | ?| infection very | encouraged ? ?| ? | ?| likely ? | ? | ? + +-------- --------+ + -----+ Discontinuation of antibiotics in high-acuity patients with suspected or confirmed sepsis in Adults >= 18 years of age. + +-------- --------+ + -----+|Procalcitonin |Interpretation ?|Antibiotic ? ? |Considerations ? |ng/mL ? | ?|recommendation | ? + +-------- --------+ + -----+| <0.25 ?| Bacterial ? ? ?| Strongly ? ? ?| ? | ?| infection very | discouraged ? | Overruling: ? | ?| unlikely ? ? ? | ? | ? Clinically unstable ? ? ? + +-------- --------+ + ? High risk for adverse ? ? | <0.5 or drop | Bacterial ? ? ?| Discouraged ? | ? outcome ? | >80% from ? ?| infection ? ? ?| ? | ? SEE IMPORTANT NOTE ?| highest PCT ?| unlikely ? ? ? | ? | ? | level ?| ?| ? | ? + +-------- --------+ + -----+| >=0.5 ?| Bacterial ? ? ?| Encouraged ? ?| ? | ?| infection ? ? ?| ? | ? | ?| likely ? | ? | Consider treatment failure ?+ +------- ---------+ -+ if levels does not decrease | >1.0 ? | Bacterial ? ? ?| Strongly ? ? ?| appropriately ? | ?| infection very | encouraged ? ?| ? | ?| likely ? | ? | ? + +-------- --------+ + -----+ Percentage of drop of Procalcitonin calculation for Discontinuation of antibiotics in high-acuity patients with suspected or confirmed sepsis in Adults >= 18 years of age. ? Procalcitonin highest{}-Procalcitonin current{}Delta Procalcitonin = x100% ? Procalcitonin current {} IMPORTANT NOTE: Procalcitonin may be elevated without bacterial infection by physiologic stress related to trauma, shen, chronic dialysis, metastatic cancer, surgery in the past seven days, malaria, some fungal infections, and some forms of vasculitis. The interpretation algorithm may not apply to patients with immunosuppression (equivalent of >10 mg of prednisone daily), HIV with CD4 cell count < 350 cells/mm3, active malignancy on systemic chemotherapy, solid organ transplant or hematopoietic stem cell transplantation, or hospital acquired pneumonia. Additionally, some clinical trials of procalcitonin have excluded patients with shock requiring vasopressor use, acute respiratory failure requiring mechanical ventilation, or those with known lung abscess/empyema. For further information please refer to:[email or web address] Lab Interpretation Abnormal (test code = 76235-8) [facility] 16:58:53 Test Item Value Reference Range Interpretation Comments POCT GLU (test code = 4813514018) 353 mg/dL 70-110 H Lab Interpretation (test code = Abnormal 95358-3) [facility] D, [id number] 16:35:33 Test Item Value Reference Range Interpretation Comments VIT D 25OH (test code = 27 ng/mL 25-80 28411-2) CARL (test code = CARL) Deficiency: <20 ng/mLInsufficiency : 20-24 ng/mLOptimal: 25-80 ng/mL Lab Interpretation (test Normal code = 83159-6) [facility] TylerOSMOLALITY [id number] 16:00:43 Test Item Value Reference Range Interpretation Comments OSMO U (test code = See_Comment [Automa roxanna message] 1270827774) The system [employer] generated this result transmitted ref erence range: 50-1,100 mOsm/kg. The re ference range was not u sed to interpret this result as normal/abnor mal. Lab Interpretation (test Normal code = 80720-3) [facility]MOL[facility], SERUM OR [id number] 15:57:18 Test Item Value Reference Range Interpretation Comments OSMOLALITY (test code = See_Comment [Au tomated message] [id number]) The system [employer] generated this result transmitted ref erence range: 278 - 30 5 mOsm/kg. The re ference range was not u sed to interpret this result as normal/abnor mal. Lab Interpretation (test Normal code = 82646-9) [facility] TylerSEDIMENTATION [id number] 14:17:02 Test Item Value Reference Range Interpretation Comments ESR (test code = See_Comment H [Automated message] [id number]) The system [employer] generated this result transmitted ref erence range: 0 - 20 m m/HR. The reference r cheyanne was not used to interpret this result as normal/abnor mal. Lab Interpretation (test Abnormal code = 26157-7) [facility]XR SHOULDER 2+ VW [id number] 13:53:22 Anterior dislocation of the right shoulder. RL: 5611 END OF REPORT Ordering Physician: TYRON REYES Clinical Indication: glenohumeral dislocation Additional Clinical Information: Technical Quality: Good Comparison: None Technique: 2 views ofthe right shoulder Findings: There is an anterior glenohumeral dislocation. There isosteopenia. There are calcified phlebolith overlying the axilla. There isno fracture fragment. [facility], Radiant Results Inft User - 02/21/2021 8:54 AM CDTOrdering Physician: TYRON Mendozainical Indication: glenohumeraldislocation Additional Clinical Information:Technical Quality: GoodComparison: NoneTechnique: 2 views of the right shoulderFindings: There is an anterior glenohumeral dislocation. There isosteopenia. There are calcified phlebolith overlying the axilla. There isno fracture fragment.IMPRESSIONAnterior di slocation of the right shoulder.RL: 5611END OF REPORT [facility] 13:09:09 Test Item Value Reference Range Interpretation Comments POCT GLU (test code = 2628122470) 209 mg/dL 70-110 H Lab Interpretation (test code = Abnormal 45413-1) [facility]TROPONIN [id number] 12:13:42 Test Item Value Reference Range Interpretation Comments TROPONIN I (test 0.025 ng/mL See_Comment [Automated code = 6253094645) message] The system which generated this result transmitted reference range : <=0.034. The reference range was not used to interpret this result as normal/abnormal . CARL (test code = Equal or Less than CARL) 0.034 ng/ml---Normal ?Note: Cardiac troponin begins to rise 3-4 hours after the onset of ischemia. Repeat in 4-6 hours if the sample was drawn within 3-4 hours of the onset of the symptom and found normal. Between 0.035 and 0.120 ng/mL--- Borderline. Questionable myocardial injury or necrosis ? ?Note: Serial measurement may be necessary to confirm or exclude the diagnosis of myocardial injury or necrosis; Clinical correlation (symptoms, EKGs, imaging studies, and others) required; Repeat in 4-6 hours if clinically indicated. ? Equal or Higher than 0.121 ng/mL---Abnormal. Myocardial Injury or Necrosis Likely ? Biotin has been reported to cause a negative bias, interpret results relative to patient's use of biotin. ? Lab Interpretation Normal (test code = 45532-9) [facility] TylerN-TERMINAL [id number] 12:10:24 Test Item Value Reference Range Interpretation Comments NT-proBNP (test code 1490 pg/mL See_Comment H [Autom ated = 5412556286) message] The system which generated this result transmitted reference range : <=450. The reference range was not used to interpret this result as normal/abnormal . CARL (test code = CARL) Biotin has been reported to cause a negative bias, interpret results relative to patient's use of biotin. Lab Interpretation Abnormal (test code = 79375-9) [facility]. METABOLIC PANEL (92070)2021-02-21 12:09:43 Test Item Value Reference Range Interpretation Comments NA (test code = 131 mmol/L 135-145 L 9595251250) K (test code = 4.1 mmol/L 3.5-5.0 3631707799) CL (test code = 96 mmol/L 98-108 L 4179295761) CO2 TOTAL (test code = 26 mmol/L 23-31 5810249393) AGAP (test code = 2-16 9593054786) BUN (test code = 19 mg/dL 7-23 4442070649) GLUCOSE (test code = 90 mg/dL 70-110 9142852495) CREATININE (test code = 0.98 mg/dL 0.50-1.04 1745393182) TOTAL BILI (test code = 0.7 mg/dL 0.1-1.3 1760854516) CALCIUM (test code = 7.9 mg/dL 8.6-10.6 L 6706505210) T PROTEIN (test code = 5.4 g/dL 6.3-8.2 L 0912934282) ALBUMIN (test code = 3.0 g/dL 3.5-5.0 L 7166371906) ALK PHOS (test code = 37 U/L 34-122 5989483079) ALTv (test code = 13 U/L 5-35 1742-6) AST(SGOT) (test code = 35 U/L 13-40 7102275321) eGFR (test code = mL/min/1.73m2 0765839328) CARL (test code = CARL) Association of Glomerular Filtration Rate (GFR) and Staging of Kidney Disease* + --+ --+ ------+| GFR (mL/min/1.73 m2) ?| With Kidney Damage ?| ?Without Kidney Damage+ --------+ --------+ +| ?>90 ?| ?Stage one ?| ? Normal ?+ ---+ ---+ -------+| ?60-89 ?| ?Stage two ?| ? Decreased GFR ? + --+ --+ ------+| ?30-59 ?| ?Stage three ?| ? Stage three ? + --+ --+ ------+| ?15-29 ?| ?Stage four ? | ? Stage four ?+ ---+ ---+ -------+| ?<15 (or dialysis) ? ?| ?Stage five ? | ? Stage five ?+ ---+ ---+ -------+ *Each stage assumes the associated GFR level has been in effect for at least three months. ?Stages 1 to 5, with or without kidney disease, indicate chronic kidney disease. Notes: Determination of stages one and two (with eGFR >59mL/min/1.73 m2) requires estimation of kidney damage for at least three months as defined by structural or functional abnormalities of the kidney, manifested by either:Pathological abnormalities or Markers of kidney damage (including abnormalities in the composition of the blood or urine or abnormalities in imaging tests). Lab Interpretation Abnormal (test code = 70778-9) [facility]MAGNESIUM2021-[facility]-06 12:05:19 Test Item Value Reference Range Interpretation Comments MAGNESIUM (test code = 2056054965) 1.7 mg/dL 1.7-2.4 Lab Interpretation (test code = Normal 38487-3) [facility] TylerURIC [id number] 12:04:59 Test Item Value Reference Range Interpretation Comments URIC ACID (test code = 7125333221) 4.0 mg/dL 2.9-6.0 Lab Interpretation (test code = Normal 25948-6) [facility] WITH [id number] 11:43:56 Test Item Value Reference Range Interpretation Comments WBC (test code = See_Comment [Automated 4142-2) message] The sy stem which generated this result transmitted reference range : 4.30 - 11.10 10*3/?L. The reference range was not used to interpret this result as normal/abnormal . RBC (test code = See_Comment L [Automated 789-8) message] The sy stem which generated this result transmitted reference range : 3.93 - 5.25 10*6/?L. The reference range was not used to interpret this result as normal/abnormal . HGB (test code = 9.5 g/dL 11.6-15.0 L 718-7) HCT (test code = 28.3 % 35.7-45.2 L 4544-3) MCV (test code = 90.1 fL 80.6-95.5 787-2) MCH (test code = 30.3 pg 25.9-32.8 785-6) MCHC (test code = 33.6 g/dL 31.6-35.1 786-4) RDW-SD (test code = 47.8 fL 39.0-49.9 11013-5) RDW-CV (test code = 14.8 % 12.0-15.5 788-0) PLT (test code = See_Comment [Automated 777-3) message] The sy stem which generated this result transmitted reference range : 166 - 358 10*3/ ?L. The reference r cheyanne was not used to interpret this result as normal/abnormal . MPV (test code = 10.2 fL 9.5-12.9 92235-1) NRBC/100 WBC (test See_Comment [Automat ed code = 5845318278) message] The system which generated this result transmitted reference range : 0.0 - 10.0 /100 WBCs. The refer ence range was not u sed to interpret th is result as normal/abnormal . NRBC x10^3 (test code <0.01 See_Comment [Auto mated = 6215523539) message] The s ystem which generated this result transmitted reference range : 10*3/?L. The reference range was not used to interpret this result as normal/abnormal . GRAN MAT (NEUT) % 81.3 % (test code = 770-8) IMM GRAN % (test code 0.70 % = 6760379507) LYMPH % (test code = 13.7 % 736-9) MONO % (test code = 3.0 % 5905-5) EOS % (test code = 0.6 % 713-8) BASO % (test code = 0.7 % 706-2) GRAN MAT x10^3(ANC) 4.41 10*3/uL 1.88-7.09 (test code = 5293415317) IMM GRAN x10^3 (test 0.04 10*3/uL 0.00-0.06 code = 9197271373) LYMPH x10^3 (test code 0.74 10*3/uL 1.32-3.29 L = 731-0) MONO x10^3 (test code 0.16 10*3/uL 0.33-0.92 L = 742-7) EOS x10^3 (test code = 0.03 10*3/uL 0.03-0.39 711-2) BASO x10^3 (test code 0.04 10*3/uL 0.01-0.07 = 704-7) Lab Interpretation Abnormal (test code = 25144-9) [facility] ABDOMEN PELVIS W [id number] 09:25:19 No defined focal acute inflammatory process. No hydronephrosis orperinephric fluid. Right renal cysts Multiple pancreatic cysts, outpatient MRI with MRCP recommended for moredefinitive assessment. Small sliding hiatal hernia Basilar atelectasis Diverticulosis of the colon without imaging evidence of a cutediverticulitis Moderate fat-containing umbilical hernia Bony demineralization, consider correlation with outpatient bone mineraldensity exam as clinically appropriate. Degenerative changes in the lumbarspine RL: 109AF: 82811 End of report Examination: Computed tomography of the abdomen and pelvis with contrast Ordering Physician: MAURICIO REYES Date: 02/21/2021 1:30 AM History: Flank pain, kidney stone suspected Nausea/vomiting Abdominal pain, acute,nonlocalized recurrent UTI Comparison: None available Technique: Computed tomography of the abdomen and pelvis was performedafter the administration of nonionic intravenous contrast. ?Exams wereperformed using dose reduction techniques according to ALARA (as low asreasonably achievable) principles. Findings: Images of the lung bases show mild patchy atelectasis and/or scarring. Liver, gallbladder, spleen, adrenal glands and kidneys demonstrate no acutefinding. Small cyst in the upper pole of the right kidney. Multiple cystsin the incus, largest is in the head measuring up to 17 mm. Noperipancreatic inflammatory stranding or fluid. There is diverticulosis of the colon without imaging evidence of acutediverticulitis. Normal appendix. Small sliding hiatal hernia. No evidence of small bowel obstruction. Nofree fluid or free air. No perinephric fluid collection. Portal and splenic veins are patent. No enlarged adenopathy. Bladder grossly unremarkable. Uterus is absent. No adnexal mass noted. Ovaries are seen and are atrophic. Bone windows show no suspicious lytic or blastic bony lesion. Bones aredemineralized. Prominent degenerative changes in the lower and mid lumbarspine. Stress shielding in the femoral head and neck regions. Moderate fat-containing umbilical hernia. [facility], Radiant Results Inft User - 02/21/2021 4:26 AM CDTExamination: Computed tomography of the abdomen and pelvis with contrastOrdering Physician: TYRON FUIDate: 02/21/2021 1:30 AMHistory: Flank pain, kidney stone suspected Nausea/vomiting Abdominal pain, acute,nonlocalized recurrent UTI Comparison: None availableTechnique: Computed tomography of the abdomen and pelvis was performedafter the administration of nonionic intravenous contrast. Exams wereperformed using dose reduction techniques according toALARA (as low asreasonably achievable) principles.Findings:Images of the lung bases show mild patchyatelectasis and/or scarring.Liver, gallbladder, spleen, adrenal glands and kidneys demonstrate no acutefinding. Small cyst in the upper pole of the right kidney. Multiple cystsin the incus, largest is in the head measuring up to 17 mm. Noperipancreatic inflammatory stranding or fluid.There is diverticu losis of the colon without imaging evidence of acutediverticulitis. Normal appendix.Small sliding hiatal hernia. No evidence of small bowel obstruction. Nofree fluid or free air.No perinephric fluid collection.Portal and splenic veins are patent. No enlarged adenopathy.Bladder grossly unremarkable.Uterus is absent. No adnexal mass noted. Ovaries are seen and are atrophic.Bone windows show no suspicious lytic or blastic bony lesion. Bones aredemineralized. Prominent degenerative changes in the lower and mid lumbarspine. Stress shielding in the femoral head and neck regions.Moderate fat-containing umbilical hernia.IMPRESSIONNo defined focal acute inflammatory process. No hydronephrosis orperinephricfluid.Right renal cystsMultiple pancreatic cysts, outpatient MRI with MRCP recommended for moredefinitive assessment.Small sliding hiatal herniaBasilar atelectasisDiverticulosis of the colon without imaging evidence of acutediverticulitisModerate fat-containing umbilical herniaBony demineralization, consider correlation with outpatient bone mineraldensity exam as clinically appropriate. Degenerative changes in the lumbarspineRL: 109AFC: [id number] of report [facility] [id number] 09:17:191. ?No acute intracranial abnormality. RL: 6200 AFC: 38369Job of report. ORDERING PHYSICIAN: TYRON REYES CLINICAL HISTORY:Dizziness, non-specific head injury TECHNIQUE:CT of the head without intravenous contrast. Exam was performed withradiation as low as reasonably achievable (ALARA) principles. COMPARISON:None. FINDINGS:No evidence of intracranial hemorrhage. Kwok-white matter differentiationappears normal throughout the brain. Mild generalized brain volume losswith symmetric ex vacuo enlargement of ventricles and cerebral sulci. ?Nohydrocephalus, midline shift or basilar cistern effacement. The bones, extracranial soft tissues and o rbits are unremarkable. Sinusesand mastoid air cells are clear. [facility], Radiant Results Inft User - 02/21/2021 4:18 AM CDTORDERING PHYSICIAN: TYRON FUICLINICAL HISTORY:Dizziness, non-specific head injury TECHNIQUE:CT of the head without intravenous contrast. Exam was performed withradiation as low as reasonably achievable (ALARA) principles.COMPARISON:None.FINDINGS:No evidence of intracranial hemorrhage. Kwok-white matter differentiationappears normal throughout the brain. Mild generalized brain volume losswith symmetric ex vacuo enlargement of ventricles and cerebral sulci. Nohydrocephalus, midline shift or basilar cistern effacement.The bones, extracranial soft tissues and orbits are unremarkable. Sinusesand mastoid air cells are clear.IMPRESSION1. No acute intracranial abnormality.RL: 6200 AFC: 93124Asx of report. [facility]POWI GLUCOSE (AUT[facility]ATED)2021-02-21 07:45:22 Test Item Value Reference Range Interpretation Comments POCT GLU (test code = 9593714343) 138 mg/dL 70-110 H Lab Interpretation (test code = Abnormal 04927-4) [facility] TylerTROPONIN [id number] 07:16:11 Test Item Value Reference Range Interpretation Comments TROPONIN I (test 0.031 ng/mL See_Comment [Automated code = 6252748057) message] The system which generated this result transmitted reference range : <=0.034. The reference range was not used to interpret this result as normal/abnormal . CARL (test code = Equal or Less than CARL) 0.034 ng/ml---Normal ?Note: Cardiac troponin begins to rise 3-4 hours after the onset of ischemia. Repeat in 4-6 hours if the sample was drawn within 3-4 hours of the onset of the symptom and found normal. Between 0.035 and 0.120 ng/mL--- Borderline. Questionable myocardial injury or necrosis ? ?Note: Serial measurement may be necessary to confirm or exclude the diagnosis of myocardial injury or necrosis; Clinical correlation (symptoms, EKGs, imaging studies, and others) required; Repeat in 4-6 hours if clinically indicated. ? Equal or Higher than 0.121 ng/mL---Abnormal. Myocardial Injury or Necrosis Likely ? Biotin has been reported to cause a negative bias, interpret results relative to patient's use of biotin. ? Lab Interpretation Normal (test code = 12711-7) [facility] TylerIRON [id number] 07:13:30 Test Item Value Reference Range Interpretation Comments IRON (test code = 5230562860) 27 ug/dL 50-160 L TIBC (test code = 6136677105) 224 ug/dL 250-410 L % FE SAT (test code = 3470265007) 12 % 20-50 L Lab Interpretation (test code = Abnormal 33936-5) [facility] TylerPROTHROMBIN TIME / [id number] 06:48:08 Test Item Value Reference Range Interpretation Comments PROTIME PATIENT (test See_Comment [Auto mated message] code = 5964-2) The system [employer] generated this result transmitted ref erence range: 12.0 - 1 4.7 Seconds. The re ference range was not u sed to interpret this result as normal/abnor mal. INR (test code = 6301-6) Nor mal INR <1.1; Warfarin Therap eutic range 2.0 to 3. 0 or 2.5 to 3.5, dep ending upon the indica tions. Lab Interpretation (test Normal code = 08652-9) [facility] TylerFERRITIN [id number] 06:23:04 Test Item Value Reference Range Interpretation Comments FERRITIN (test code = 112.0 ng/mL 11.0-264.0 7623754463) CARL (test code = CARL) Biotin has been reported to cause a negative bias, interpret results relative to patient's use of biotin. Lab Interpretation (test Normal code = 76593-1) [facility] TylerTHYROID STIMULATING [id number] 06:20:07 Test Item Value Reference Range Interpretation Comments TSH (test code = See_Comment [Automated message] 8037471631) The system [employer] h generated this result transmitted ref erence range: 0.45 - 4 .70 mIU/L. The refe rence range was not u sed to interpret this result as normal/abnor mal. Lab Interpretation (test Normal code = 20902-2) [facility] TylerGLYCOSYLATED HEMOGLOBIN (A1C)2021-02-21 06:16:28 Test Item Value Reference Range Interpretation Comments HGB A1C (test code = 5.5 % 4.0-5.7 4548-4) CARL (test code = CARL) Reference RangesNormal: <5.7%Prediabetes: 5.7 - 6.4%Diabetes: > 6.5% Lab Interpretation (test Normal code = 62473-6) [facility] TylerPROTEIN CREAT RATIO URINE [id number] 05:59:37 Test Item Value Reference Range Interpretation Comments T. PROT U (test code = 2888-6) 17 mg/dL CREAT U (test code = 8440148421) 34.5 mg/dL Protein/Creatinine Ratio Urine 0.0-2.0 (test code = 5033350641) [facility] TylerPHOSPHORUS2021-05-06 05:59:02 Test Item Value Reference Range Interpretation Comments PHOSPHORUS (test code = 8318089243) 4.7 mg/dL 2.5-5.0 Lab Interpretation (test code = Normal 89945-5) [facility] TylerURIC [id number] 05:58:57 Test Item Value Reference Range Interpretation Comments URIC ACID (test code = 8071381760) 3.5 mg/dL 2.9-6.0 Lab Interpretation (test code = Normal 19939-4) [facility] TylerCREATINE [id number] 05:58:47 Test Item Value Reference Range Interpretation Comments CK (test code = 0795844104) 26 U/L 33-194 L Lab Interpretation (test code = Abnormal 19270-5) [facility] TylerMAGNESIUM2021-05-06 05:58:42 Test Item Value Reference Range Interpretation Comments MAGNESIUM (test code = 0005744239) 1.7 mg/dL 1.7-2.4 Lab Interpretation (test code = Normal 80673-0) [facility] TylerPOCT GLUCOSE (AUTOMATED)2021-02-21 05:57:21 Test Item Value Reference Range Interpretation Comments POCT GLU (test code = 2047554031) 59 mg/dL 70-110 L Lab Interpretation (test code = Abnormal 35648-2) [facility] TylerSODIUM, URINE [id number] 05:55:36 Test Item Value Reference Range Interpretation Comments NA URINE (test code = 2907495569) 69 mmol/L [facility] TylerLIPID PANEL (25556)(TOTAL CHOLESTEROL, TRIGLYCERIDES, HDL)2021-02-21 05:48:17 Test Item Value Reference Range Interpretation Comments CHOL (test code = 136 mg/dL 120-200 6703288550) HDL (test code = 75 mg/dL >50 1519597715) HDLC RATIO (test code = See_Comment [Au tomated message] 3675184477) The system [employer] generated this result transmit roxanna reference range : <=4.5. The refe rence range was not u sed to interpret th is result as normal/abnormal . TRIG (test code = 158 mg/dL 30-170 9107986541) LDL CHOL (test code = 29 mg/dL See_Comment [Auto mated message] 32594-5) The system [employer] generated this result transmit roxanna reference range : <=160. The refe rence range was not u sed to interpret th is result as normal/abnormal . VLDL (test code = 32 mg/dL 5-60 5851391095) Lab Interpretation (test Normal code = 52331-3) [facility] TylerXR HUMERUS 2 VW [id number] 00:20:13 1. ?No fracture. 2. Possible glenohumeral dislocation. There is clinical concern dedicatedshoulder series recommended. 3. 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 If there is an acutewrist injury dedicated wrist films recommended. RL: 1105 HISTORY: ?right arm pain fall COMPARISON: ?None FINDINGS: 2 views right humerus and 2 views right forearm show no fracture. There may be a glenohumeral dislocation. If there is clinical concerndedicated shoulder series recommended. Degenerative changes in the wrist appear remote from scapholunate ligamentinjury and scapholunate advanced collapse. If there is an acute wristinjury dedicated wrist films recommended. [facility], Radiant Results Inft User - 02/20/2021 7:21 PM CDTHISTORY: right arm pain fall COMPARISON: NoneFINDINGS:2 views right humerus and 2 views right forearm show no fracture.There may be a glenohumeral d islocation. If there is clinical concerndedicated shoulder series recommended.Degenerative changes in the wrist appear remote from scapholunate ligamentinjury and scapholunate advanced collapse. If there is an acute wristinjury dedicated wrist films recommended.IMPRESSION1. No fracture.2. Possible glenohumeral dislocation. There is clinical concern dedicatedshoulder series recommended.3. 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 If there is an acutewrist injury dedicated wrist films recommended.RL: [id number] signedby Rei Poon MD at 02/20/2021 7:20 PMUnTexas [facility]neXR FOREARM 2 VW [id number] 00:20:13 1. ?No fracture. 2. Possible glenohumeral dislocation. There is clinical concern dedicatedshoulder series recommended. 3. 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 If there is an acutewrist injury dedicated wrist films recommended. RL: 1105 HISTORY: ?right arm pain fall COMPARISON: ?None FINDINGS: 2 views right humerus and 2 views right forearm show no fracture. There may be a glenohumeral dislocation. If there is clinical concerndedicated shoulder series recommended. Degenerative changes in the wrist appear remote from scapholunate ligamentinjury and scapholunate advanced collapse. If there is an acute wristinjury dedicated wrist films recommended. [facility], Radiant Results Inft User - 02/20/2021 7:21 PM CDTHISTORY: right arm pain fall COMPARISON: NoneFINDINGS:2 views right humerus and 2 views right forearm show no fracture.There may be a glenohumeral dislocation. If there is clinical concerndedicated shoulder series recommended.Degenerative changes in the wrist appear remote from scapholunate ligamentinjury and scapholunate advanced collapse. If there is an acute wristinjury dedicated wrist films recommended.IMPRESSION1. No fracture.2. Possible glenohumeral dislocation. There is clinical concern dedicatedshoulder series recommended.3. 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 If there is an acutewrist injury dedicated wrist films recommended.RL: [id number] signedby Rei Poon MD at 02/20/2021 7:20 PMUnTexas [facility] [id number] 22:41:33 Test Item Value Reference Range Interpretation Comments APPEARANCE (test code = Hazy Clear A 4457491947) COLOR (test code = Yellow Yellow 3308421016) PH (test code = 4.8-8.0 4047099315) SP GRAVITY (test code = 1.003-1.030 2400268007) GLU U QUAL (test code = Normal Normal 8895890128) BLOOD (test code = Negative Negative 5470894740) KETONES (test code = 20 mg/dL Negative A 0875576213) PROTEIN (test code = Negative Negative 2887-8) UROBILIN (test code = Normal Normal 4453318819) BILIRUBIN (test code = Negative Negative 6790050026) NITRITE (test code = Negative Negative 8326053555) LEUK NATHAN (test code = 250/uL Negative A 7977407716) RBC/HPF (test code = See_Comment [Autom ated message] 1810362790) The system [employer] generated this result transmitted ref erence range: 0 - 3 HP F. The reference range was not used to int erpret this result as normal/abnormal . WBC/HPF (test code = See_Comment H [Autom ated message] 5130336371) The system [employer] generated this result transmitted ref erence range: 0 - 5 HP F. The reference range was not used to int erpret this result as normal/abnormal . BACTERIA (test code = Many Negative A 8743679663) MUCOUS (test code = Moderate Negative LPF A 9988885337) Lab Interpretation (test Abnormal code = 80108-9) [facility]ID TESTING)2021-02-20 22:40:01 Test Item Value Reference Range Interpretation Comments SARS-CoV-2 Rapid ID NOW Not Detected Not Detected (test code = 72519-9) CARL (test code = CARL) ID NOW COVID-19 Assay is an isothermal nucleic acid amplification test intended for the qualitative detection of nucleic acid from SARS-CoV-2 viral RNA in nasopharyngeal (NET MAKER) specimens. It is used under Emergency Use Authorization (EUA) by FDA. The limit of detection (LOD) of the assay is 125 Genome Equivalents/mL. A positive result is indicative of the presence of SARS-CoV-2 RNA. ?Clinical correlation with patient history and other diagnostic information is necessary to determine patient infection status. A negative (Not Detected) result does not preclude SARS-CoV-2 infection. In patients with clinical symptoms and other tests that are consistent with SARS-CoV-2 infection, negative results should be treated as presumptive negative and a new specimen should be tested with alternative PCR molecular test. Invalid: Please collect a new specimen for repeat patient testing if clinically indicated. Lab Interpretation Normal (test code = 03326-9) [facility] TylerTROPONIN [id number] 21:58:52 Test Item Value Reference Range Interpretation Comments TROPONIN I (test 0.019 ng/mL See_Comment [Automated code = 2208354158) message] The system which generated this result transmitted reference range : <=0.034. The reference range was not used to interpret this result as normal/abnormal . CARL (test code = Equal or Less than CARL) 0.034 ng/ml---Normal ?Note: Cardiac troponin begins to rise 3-4 hours after the onset of ischemia. Repeat in 4-6 hours if the sample was drawn within 3-4 hours of the onset of the symptom and found normal. Between 0.035 and 0.120 ng/mL--- Borderline. Questionable myocardial injury or necrosis ? ?Note: Serial measurement may be necessary to confirm or exclude the diagnosis of myocardial injury or necrosis; Clinical correlation (symptoms, EKGs, imaging studies, and others) required; Repeat in 4-6 hours if clinically indicated. ? Equal or Higher than 0.121 ng/mL---Abnormal. Myocardial Injury or Necrosis Likely ? Biotin has been reported to cause a negative bias, interpret results relative to patient's use of biotin. ? Lab Interpretation Normal (test code = 62877-8) [facility] TylerN-TERMINAL [id number] 21:53:51 Test Item Value Reference Range Interpretation Comments NT-proBNP (test code 1840 pg/mL See_Comment H [Autom ated = 6573705051) message] The system which generated this result transmitted reference range : <=450. The reference range was not used to interpret this result as normal/abnormal . CARL (test code = CARL) Biotin has been reported to cause a negative bias, interpret results relative to patient's use of biotin. Lab Interpretation Abnormal (test code = 23518-9) [facility]. METABOLIC PANEL (42933)2021-02-20 21:50:26 Test Item Value Reference Range Interpretation Comments NA (test code = 129 mmol/L 135-145 L 5241441908) K (test code = 3.4 mmol/L 3.5-5.0 L 3432282769) CL (test code = 94 mmol/L 98-108 L 2621499454) CO2 TOTAL (test code = 24 mmol/L 23-31 8730486570) AGAP (test code = 2-16 0512613615) BUN (test code = 18 mg/dL 7-23 7664524590) GLUCOSE (test code = 62 mg/dL 70-110 L 9954648346) CREATININE (test code = 1.00 mg/dL 0.50-1.04 1934686081) TOTAL BILI (test code = 0.9 mg/dL 0.1-1.4 6910284847) CALCIUM (test code = 8.5 mg/dL 8.6-10.6 L 4481162102) T PROTEIN (test code = 5.8 g/dL 6.3-8.2 L 1396432422) ALBUMIN (test code = 3.4 g/dL 3.5-5.0 L 5469185214) ALK PHOS (test code = 49 U/L 34-122 9192495221) ALTv (test code = 15 U/L 5-35 1742-6) AST(SGOT) (test code = 28 U/L 13-40 9998220967) eGFR (test code = mL/min/1.73m2 8393833162) CARL (test code = CARL) Association of Glomerular Filtration Rate (GFR) and Staging of Kidney Disease* + --+ --+ ------+| GFR (mL/min/1.73 m2) ?| With Kidney Damage ?| ?Without Kidney Damage+ --------+ --------+ +| ?>90 ?| ?Stage one ?| ? Normal ?+ ---+ ---+ -------+| ?60-89 ?| ?Stage two ?| ? Decreased GFR ? + --+ --+ ------+| ?30-59 ?| ?Stage three ?| ? Stage three ? + --+ --+ ------+| ?15-29 ?| ?Stage four ? | ? Stage four ?+ ---+ ---+ -------+| ?<15 (or dialysis) ? ?| ?Stage five ? | ? Stage five ?+ ---+ ---+ -------+ *Each stage assumes the associated GFR level has been in effect for at least three months. ?Stages 1 to 5, with or without kidney disease, indicate chronic kidney disease. Notes: Determination of stages one and two (with eGFR >59mL/min/1.73 m2) requires estimation of kidney damage for at least three months as defined by structural or functional abnormalities of the kidney, manifested by either:Pathological abnormalities or Markers of kidney damage (including abnormalities in the composition of the blood or urine or abnormalities in imaging tests). Lab Interpretation Abnormal (test code = 53368-0) [facility] Tyler[facility]IPASE[facility]21[facility] 21:50:26 Test Item Value Reference Range Interpretation Comments LIPASE (test code = 7659365730) 86 U/L 0-220 Lab Interpretation (test code = Normal 87011-2) [facility] TylerCBC WITH [id number] 21:25:40 Test Item Value Reference Range Interpretation Comments WBC (test code = See_Comment [Automated 8790-2) message] The sy stem which generated this result transmitted reference range : 4.30 - 11.10 10*3/?L. The reference range was not used to interpret this result as normal/abnormal . RBC (test code = See_Comment L [Automated 809-8) message] The sy stem which generated this result transmitted reference range : 3.93 - 5.25 10*6/?L. The reference range was not used to interpret this result as normal/abnormal . HGB (test code = 11.0 g/dL 11.6-15.0 L 718-7) HCT (test code = 32.1 % 35.7-45.2 L 4544-3) MCV (test code = 89.2 fL 80.6-95.5 787-2) MCH (test code = 30.6 pg 25.9-32.8 785-6) MCHC (test code = 34.3 g/dL 31.6-35.1 786-4) RDW-SD (test code = 47.0 fL 39.0-49.9 10397-9) RDW-CV (test code = 14.6 % 12.0-15.5 788-0) PLT (test code = See_Comment [Automated 777-3) message] The sy stem which generated this result transmitted reference range : 166 - 358 10*3/ ?L. The reference r cheyanne was not used to interpret this result as normal/abnormal . MPV (test code = 10.1 fL 9.5-12.9 11357-1) NRBC/100 WBC (test See_Comment [Automat ed code = 2608981166) message] The system which generated this result transmitted reference range : 0.0 - 10.0 /100 WBCs. The refer ence range was not u sed to interpret th is result as normal/abnormal . NRBC x10^3 (test code <0.01 See_Comment [Auto mated = 5418309578) message] The s ystem which generated this result transmitted reference range : 10*3/?L. The reference range was not used to interpret this result as normal/abnormal . GRAN MAT (NEUT) % 52.9 % (test code = 770-8) IMM GRAN % (test code 0.60 % = 4207175565) LYMPH % (test code = 35.0 % 736-9) MONO % (test code = 8.3 % 5905-5) EOS % (test code = 2.6 % 713-8) BASO % (test code = 0.6 % 706-2) GRAN MAT x10^3(ANC) 4.32 10*3/uL 1.88-7.09 (test code = 0571368056) IMM GRAN x10^3 (test 0.05 10*3/uL 0.00-0.06 code = 9662217201) LYMPH x10^3 (test code 2.86 10*3/uL 1.32-3.29 = 731-0) MONO x10^3 (test code 0.68 10*3/uL 0.33-0.92 = 742-7) EOS x10^3 (test code = 0.21 10*3/uL 0.03-0.39 711-2) BASO x10^3 (test code 0.05 10*3/uL 0.01-0.07 = 704-7) Lab Interpretation Abnormal (test code = 14950-9) [facility] BranchL[facility] Whole [id number] 21:20:26 Test Item Value Reference Range Interpretation Comments LACTIC ACID (test code = 2.06 mmol/L 0.50-2.20 0372829980) Lab Interpretation (test code = Normal 86187-5) [facility] TylerXR CHEST 1 [id number] 21:07:40 No acute cardiopulmonary abnormality. Preliminary Report Dictated by Resident: Julia Arroyo MD., have reviewed this study and agree with theabove report.EXAM: XR CHEST 1 VW CLINICAL INDICATION: tachycardia, weakness, dizziness COMPARISON: None FINDINGS: The lungs are well-expanded and clear without focal consolidation, pleuraleffusion, or pneumothorax. The cardiac silhouetteis upper normal in size. The aorta is tortuous. No acute osseous abnormality. [facility], Radiant ResultsInft User - 02/20/2021 4:08 PM CDTEXAM: XR CHEST 1 VWCLINICAL INDICATION: tachycardia, weakness, dizziness COMPARISON: NoneFINDINGS:The lungs are well-expanded and clear without focal consolidation, pleuraleffusion, or pneumothorax. The cardiac silhouette is upper normal in size. The aorta is tortuous.No acute osseous abnormality. IMPRESSIONNo acute cardiopulmonary abnormality.Preliminary Report Dictated by Resident: Julia Sánchez MD., have reviewed this study and agree with theabove report.[facility]CY[facility]OLOGY2021-[facility]-13 14:27:00Medical Cytology Report Case: [id number] Authorizing Provider: Amor Muller MD Collected: 11/29/2020 02:08 PM Ordering Location: [facility] Endoscopy Received: 11/30/2020 02:52 PM Services Pathologist: Moises Aguilar MD Specimen: Pancreas, pancreas cyst PANCREAS CYST, HEAD,FNA (CYTOSPINS): - NEGATIVE FOR MALIGNANCY - The mucin stain shows weak and focal positivity Signing Pathologist Direct Phone Line: [phone] signed by Moises Aguilar MD on 12/01/2020 at 2:27 PMA few reactive ductal epithelial cells are noted within a larger population of completely normal and non- reactive ductal epithelial cells. 73530, 720406.5 cm x 1.8 cm anechoic lesion suggestive [...] evaluated Immunohistochemistry technical testing was performed at [facility], Pathology Laboratory where it was developed [...] qualified to perform high complexity clinical laboratory testing.[facility], Department of Pathology, [address] [place] [address], [facility], [facility] of [facility], [address] [place] [address], [facility]Red[facility], [facility] of Pathology, [address] [place] [address], OOOHPYVC [id number] 16:01:00 Test Item Value Reference Range Interpretation Comments CYTOLOGY RESULT POINTER See Separate Report (NELSY) (test code = 2629) POCT-GLUCOSE [id number] 11:57:00 Test Item Value Reference Range Interpretation Comments POC-GLUCOSE METER 73 mg/dL 70-110 : TESTED [place] [address] (NELSY) (test code = RYANTRAMAINE Perez [facility], 1538) [address]: Air Pollution Analyst/Techni robbie ID = [id number] for [place] NEAL SARS coronavirus 2 RNA [Presence] in Respiratory specimen by LASHAE with probe [id number] 08:09:09 Test Item Value Reference Range Interpretation Comments SARS coronavirus 2 RNA Not detected Not-Detected [Presence] in Respiratory specimen by LASHAE with probe detection (test code = 43914-2) SARS coronavirus 2 RNA [Presence] in Respiratory specimen by LASHAE with probe [id number] 15:01:12 Test Item Value Reference Range Interpretation Comments SARS coronavirus 2 RNA Not detected Not-Detected [Presence] in Respiratory specimen by LASHAE with probe detection (test code = 37543-3) SARS coronavirus 2 RNA [Presence] in Respiratory specimen by LASHAE with probe [id number] 07:56:55 Test Item Value Reference Range Interpretation Comments SARS coronavirus 2 RNA Not detected Not-Detected [Presence] in Respiratory specimen by LASHAE with probe detection (test code = 11001-8) SARS coronavirus 2 RNA [Presence] in Respiratory specimen by LASHAE with probe [id number] 01:09:05 Test Item Value Reference Range Interpretation Comments SARS coronavirus 2 RNA Not detected Not-Detected [Presence] in Respiratory specimen by LASHAE with probe detection (test code = 93994-1)
[2021-09-30 17:15] LABS: Absolute Lymphocytes (CBC) 1.2 K/uL (0.7-4.9); Basophils % 0.3 % (0-1.3); Hematocrit 33.2 % (36.0-45.0); Lymphocytes % 15.9 % (15.3-44.8); MPV 7.1 fL (7.6-11.3); RBC Red Blood Cell Count 3.53 M/uL (3.86-4.86)
[2021-09-30 17:15] LABS: Urine Blood Negative (Negative); Urine Glucose Negative (Negative); Urine Protein Negative (Negative); Urine pH 6.5 (5.0-7.0)
[2021-09-30 17:20] LABS: Protime INR 0.91
[2021-09-30 17:34] LABS: BUN Blood Urea Nitrogen 23 mg/dL (7-18); Bicarbonate 26 mmol/L (21-32); Glucose Level 151 mg/dL (74-106); Potassium 4.8 mmol/L (3.5-5.1); Sodium Level 133 mmol/L (136-145); Troponin (Emerg Dept Use Only) < 0.02 ng/mL (0.0-0.045)
--- NOTE | 2021-09-30 18:39 | RAD REPORT ---
EXAM DESCRIPTION: CT - Head Brain Wo Cont - 09/30/2021 6:12 pm CLINICAL HISTORY: Headache;Dizziness Headache, drowsiness COMPARISON: Head angio dated 09/30/2021 TECHNIQUE: All CT scans are performed using dose optimization technique as appropriate and may inclu de automated exposure control or mA/KV adjustment according to patient size. FINDINGS: No intracranial hemorrhage, hydrocephalus or extra-axial fluid collection.Mild brain atrop hy is noted.No areas of brain edema or evidence of midline shift. Mild vertebral atherosclerosis. The paranasal sinuses and mastoids are clear. The calvarium is intact. IMPRESSION: No acute intracranial abnormality.
--- NOTE | 2021-09-30 18:40 | RAD REPORT ---
EXAM DESCRIPTION: CT - Head angio - 09/30/2021 6:12 pm CLINICAL HISTORY: Headache;Dizziness COMPARISON: No comparisons TECHNIQUE: CT angiography of the head was performed with MIPs. All CT scans are performed using dose optimization technique as appropriate and may include automated exposure control or mA/KV adjustment according to patient size. FINDINGS: No evidence of aneurysm is detected. No flow-limiting stenosis or vascular malformation id entified. Antegrade flow is seen in the vertebral arteries. The vertebral arteries are codominant. The visualized dural venous sinuses are patent. IMPRESSION: No significant flow abnormality is detected.
--- NOTE | 2021-09-30 18:45 | RAD REPORT ---
EXAM DESCRIPTION: CT - Neck Angio - 09/30/2021 6:12 pm CLINICAL HISTORY: neck pain, headache, dizziness Headache, drowsiness COMPARISON: Head C Spine Mpr Wo Con dated 02/14/2021; Head C Spine Mpr Wo Con dated 06/21/2019 TECHNIQUE: CT angiography of the neck vessels was performed with MIPs. All CT scans are performed using dose optimization technique as appropriate and may include automated exposure control or mA/KV adjustment according to patient size. FINDINGS: A left aortic arch is identified with normal three vessel configuration of the great vesse ls. No significant flow abnormality is seen of the common carotid bilaterally. No significant stenosis is identified involving the cervical segments of both internal carotid arteri es. Normal flow is seen within both vertebral arteries. Moderate multilevel cervical degenerative changes. IMPRESSION: No significant flow abnormality of the neck vessels is identified.
--- NOTE | 2021-09-30 18:49 | EDPHYS ---
Physician Documentation [facility] Name: Caridad Chadwick Age: 86 yrs Sex: Female : 1935 Arrival Date: 09/30/2021 Time: 15:55 Bed 4 Private MD: ED Physician Germán Forrester HPI: 09/30 16:41 This 86 yrs old Female presents to ER via EMS with complaints of Syncope. rn 16:42 The patient has experienced near-syncope. Onset: The symptoms/episode began/occurred rn just prior to arrival. Duration: This was a single episode. Context: the episode(s) was witnessed, Physical therapist, occurred Clinic. Associated injury: The patient did not suffer any apparent associated injury. Current symptoms: Currently, the patient is not experiencing any symptoms. The patient has experienced similar episodes in the past. The patient has not recently seen a physician. Patient reports at physical therapy, was sitting up when felt sudden onset headache and dizziness. Denies syncope or injury. Lay down and staff called 911. Feels much better. States headache and dizziness have now resolved. Patient states has episodes of headache and neck pain with dizziness often. Has attributed it to her rheumatoid arthritis. Denies recent illness. Denies fever. Denies chest pain or shortness of breath. No palpitations. No abdominal or back pain.. Historical: - PMHx: 15:59 C DIFF; Cyst on pancreas; GERD; Rheumatoid Arthritis; Hypothyroidism; Hypertension; ss Diabetes - NIDDM; Diverticulitis; - Immunization history:: Adult Immunizations up to date. - Social history:: Smoking status: Patient denies any tobacco usage or history of. - Family history:: not pertinent. - Hospitalizations: : No recent hospitalization is reported. ROS: 16:42 Constitutional: Negative for fever, chills, and weight loss, Eyes: Negative for injury, rn pain, redness, and discharge, ENT: Negative for injury, pain, and discharge, Neck: Negative for injury, pain, and swelling, Cardiovascular: Negative for chest pain, palpitations, and edema, Respiratory: Negative for shortness of breath, cough, wheezing, and pleuritic chest pain, Abdomen/GI: Negative for abdominal pain, nausea, vomiting, diarrhea, and constipation, Back: Negative for injury and pain, : Negative for injury, bleeding, discharge, and swelling, MS/Extremity: Negative for injury and deformity, Skin: Negative for injury, rash, and discoloration, Neuro: Negative for weakness, numbness, tingling, and seizure. Exam: 16:42 Constitutional: This is a well developed, well nourished patient who is awake, alert, rn and in no acute distress. Head/Face: Normocephalic, atraumatic. Eyes: Periorbital areas with no swelling, redness, or edema. ENT: Dry MM Cardiovascular: Regular rate and rhythm. No pulse deficits. Respiratory: No increased work of breathing, no retractions or nasal flaring. Abdomen/GI: Soft, non-tender Skin: Warm, dry MS/ Extremity: Pulses equal, no cyanosis. Neuro: Awake and alert, GCS 15, oriented to person, place, time, and situation. Cranial nerves II-XII grossly intact. Motor strength 5/5 in all extremities. Sensory grossly intact. Vital Signs: 15:56 BP 150 / 82; Pulse 70; Resp 16; Temp 98.6; Pulse Ox 97% ; Weight 58.97 kg; Height 5 ft. ss 4 in. (162.56 cm); 17:35 BP 158 / 69; Pulse 70; Resp 16; Pulse Ox 97% on R/A; iw 15:56 Body Mass Index 22.31 (58.97 kg, 162.56 cm) ss MDM: 16:29 Patient medically screened. rn 18:45 Differential Diagnosis: cardiac arrhythmia, vasovagal episode, UTI, metabolic rn derangement, dehydration, orthostatic hypotension. Data reviewed: vital signs, nurses notes, lab test result(s), EKG, radiologic studies, CT scan, and as a result, I will discharge patient. Data interpreted: personnel monitor: rate is 70 beats/min, rhythm is normal sinus rhythm, regular, with no ectopy, Interpretation: normal rate, normal rhythm, Pulse oximetry: on room air is 97 %. Interpretation: normal. Counseling: I had a detailed discussion with the patient and/or guardian regarding: the historical points, exam findings, and any diagnostic results supporting the discharge/admit diagnosis, lab results, radiology results, the need for outpatient follow up, to return to the emergency department if symptoms worsen or persist or if there are any questions or concerns that arise at home. Response to treatment: the patient's symptoms have markedly improved after treatment, the patient's condition has returned to base line, the patient is now symptom free, and as a result, I will discharge patient. Special discussion: I discussed with the patient/guardian in detail that at this point there is no indication for admission to the hospital. It is understood, however, that if the symptoms persist or worsen the patient needs to return immediately for re-evaluation. ED course: No acute findings and CT head/CT angio of the head and neck. Labs unremarkable. Urine shows UTI. Stable vitals. Patient back to baseline. Will DC home as did not have a full syncopal episode and got better on her own. Patient reported intermittent and chronic headache as well as dizziness that has been attributed to her rheumatoid arthritis. Will DC home with follow-up with her procurement analyst.. 09/30 16:38 Order name: Basic Metabolic Panel; Complete Time: 17:37 09/30 16:38 Order name: CBC with Diff; Complete Time: 17:34 09/30 16:38 Order name: Magnesium; Complete Time: 17:37 09/30 16:38 Order name: Protime (+inr); Complete Time: 17:34 09/30 16:38 Order name: Ptt, Activated; Complete Time: 17:34 09/30 16:38 Order name: Troponin (emerg Dept Use Only); Complete Time: 17:37 09/30 16:38 Order name: CT Head Brain wo Cont rn 09/30 16:38 Order name: EKG; Complete Time: 16:38 09/30 16:38 Order name: Cardiac monitoring; Complete Time: 17:35 09/30 16:38 Order name: CT Head Angio rn 09/30 16:38 Order name: CT Neck Angio 09/30 17:16 Order name: Urine Dipstick-Ancillary; Complete Time: 17:34 EDSD 09/30 16:38 Order name: EKG - Nurse/Tech; Complete Time: 17:35 rn 09/30 16:38 Order name: IV Saline Lock; Complete Time: 17:16 rn 09/30 16:38 Order name: Labs collected and sent; Complete Time: 17:15 09/30 16:38 Order name: O2 Per Protocol; Complete Time: 17:16 rn 09/30 16:38 Order name: O2 Sat Monitoring; Complete Time: 17:16 rn 09/30 16:38 Order name: Urine Dipstick-Ancillary (obtain specimen); Complete Time: 17:16 rn Administered Medications: 17:15 Drug: NS 0.9% 500 ml Route: IV; Rate: bolus; Site: right antecubital; iw 19:00 Drug: Rocephin (cefTRIAXone) 1 grams Route: IV; Rate: calculated rate; Site: right iw antecubital; Disposition Summary: 09/30/21 18:48 Discharge Ordered Location: Home rn Problem: new rn Symptoms: have improved rn Condition: Stable rn Diagnosis - Headache rn - Dizziness and giddiness rn - UTI/ Urinary tract infection, site not specified rn Followup: rn - With: Private Physician - When: As needed - Reason: Recheck today's complaints, Re-evaluation by your physician Discharge Instructions: - Discharge Summary Sheet rn - Dizziness rn - General Headache Without Cause rn - Urinary Tract Infection, Adult rn Forms: - Medication Reconciliation Form rn - Thank You Letter rn - Antibiotic turn out worker - Prescription Opioid Use rn Prescriptions: - cefpodoxime 100 mg Oral Tablet - take 2 tablets by ORAL route every 12 hours for 10 days take with food; 40 rn tablet; Refills: 0, Product Selection Permitted Signatures: Dispatcher [employer] Tsering Aguila RN RN Germán Forrester MD MD rn Smirch, Shelby, RN RN ss
--- NOTE | 2021-09-30 18:49 | ER ---
Nurse's Notes [facility] Name: Caridad Chadwick Age: 86 yrs Sex: Female : 1935 Arrival Date: 09/30/2021 Time: 15:55 Bed 4 Private MD: Diagnosis: Headache;Dizziness and giddiness;UTI/ Urinary tract infection, site not specified Presentation: 09/30 15:56 Chief complaint: Patient states: she was at the rhumatologist; stood up to physical ss therapy and partial syncope episode. did not fall or hit head. glu 174. was given 30 of tordol and 4 zofran. Coronavirus screen: Vaccine status: Patient reports receiving the 2nd dose of the covid vaccine. Client denies travel out of the [place] in the last 14 days. Ebola Screen: Patient negative for fever greater than or equal to 101.5 degrees Fahrenheit, and additional compatible Ebola Virus Disease symptoms Patient denies exposure to infectious person. Patient denies travel to an Ebola-affected area in the 21 days before illness onset. Initial Sepsis Screen: Does the patient meet any 2 criteria? No. Patient's initial sepsis screen is negative. Does the patient have a suspected source of infection? No. Patient's initial sepsis screen is negative. Risk Assessment: Do you want to hurt yourself or someone else? Patient reports no desire to harm self or others. Onset of symptoms was September 30, 2021. 15:56 Method Of Arrival: EMS: [facility] 15:56 Acuity: ZOIE 3 ss Triage Assessment: 15:59 General: Appears comfortable, slender, well groomed, well developed, Behavior is calm, ss cooperative, appropriate for age. Pain: Complains of pain in head, neck, chest, abdomen, pelvis, right leg, right foot, left leg, left foot, back of head, posterior chest, buttocks, back of left leg, back of right leg, left heel, right heel and back. Neuro: Reports Denies blurred vision difficulty swallowing, paresthesias numbness headache photophobia diplopia. Historical: - PMHx: 15:59 C DIFF; Cyst on pancreas; GERD; Rheumatoid Arthritis; Hypothyroidism; Hypertension; ss Diabetes - NIDDM; Diverticulitis; - Immunization history:: Adult Immunizations up to date. - Social history:: Smoking status: Patient denies any tobacco usage or history of. - Family history:: not pertinent. - Hospitalizations: : No recent hospitalization is reported. Screenin:00 Abuse screen: Denies threats or abuse. Denies injuries from another. Nutritional ss screening: No deficits noted. Tuberculosis screening: No symptoms or risk factors identified. Fall Risk Fall in past 12 months (25 points). Assessment: 17:35 Reassessment: Patient appears in no apparent distress at this time. Patient and/or iw family updated on plan of care and expected duration. Pain level reassessed. Patient is alert, oriented x 3, equal unlabored respirations, skin warm/dry/pink. Vital Signs: 15:56 BP 150 / 82; Pulse 70; Resp 16; Temp 98.6; Pulse Ox 97% ; Weight 58.97 kg; Height 5 ft. ss 4 in. (162.56 cm); 17:35 BP 158 / 69; Pulse 70; Resp 16; Pulse Ox 97% on R/A; iw 15:56 Body Mass Index 22.31 (58.97 kg, 162.56 cm) ss ED Course: 15:55 Patient arrived in ED. ss 15:58 Triage completed. ss 16:00 Arm band placed on right wrist. ss 16:29 Germán Forrester MD is Attending Physician. rn 16:49 Son Grove RN is Primary Nurse. ll3 17:35 Maintain EMS IV. Dressing intact. Good blood return noted. Site clean \T\ dry. Gauge \T\ iw site: 20 RAC. 17:36 Primary Nurse role handed off by Son Grove RN iw 17:36 Tsering Paige, SHARLENE is Primary Nurse. iw 18:12 CT Head Brain wo Cont In Process Unspecified. EDMS 18:12 CT Head Angio In Process Unspecified. EDMS 18:13 CT Neck Angio In Process Unspecified. EDMS 19:17 No provider procedures requiring assistance completed. IV discontinued, intact, iw bleeding controlled, No redness/swelling at site. Pressure dressing applied. Administered Medications: 17:15 Drug: NS 0.9% 500 ml Route: IV; Rate: bolus; Site: right antecubital; iw 19:00 Drug: Rocephin (cefTRIAXone) 1 grams Route: IV; Rate: calculated rate; Site: right iw antecubital; Outcome: 18:48 Discharge ordered by . rn 19:17 Discharged to home via wheelchair, with family. iw 19:17 Condition: good 19:17 Discharge instructions given to patient, Instructed on discharge instructions, follow up and referral plans. medication usage, Demonstrated understanding of instructions, follow-up care, medications, Prescriptions given X 1. 19:18 Patient left the ED. iw Signatures: Dispatcher [employer] EDMS Tsering Paige RN RN Germán Forrester MD MD rn Smirch, Shelby, RN RN Son Grove RN RN ll3 Corrections: (The following items were deleted from the chart) 15:58 15:56 BP 150 / 82; Pulse 70bpm; Resp 16bpm; Pulse Ox 97%; ss ss
[2021-09-30] MEDS ORDERED: CEFTRIAXONE 1000 MG/VIAL ONE (18:59)
[2021-09-30 19:23] VITALS: TEMP 98.6; O2SAT 97
[2021-09-30 19:25] VITALS: BP 158/69
--- NOTE | 2021-10-01 12:28 | EKG ---
Test Date: 2021-09-30 Test Time: 17:25:34 [facility] Practitioner: JOSE MEASUREMENT RESULTS: Intervals: Rate: 70 UT: 178 QRSD: 84 QT: 400 QTc: 432 [place]: P: 39 UT: 178 QRS: -47 T: 37 INTERPRETIVE STATEMENTS: Normal sinus rhythm Low voltage QRS Left anterior fascicular block Cannot rule out Anterior infarct, age undetermined Abnormal ECG Compared to ECG 02/14/2021 05:48:28 Low QRS voltage now present Left anterior fascicular block now present Left-axis deviation no longer present Myocardial infarct finding still present Electronically Signed On 10-01-21 12:25:49 GREEN MARKETER by Khai Espinal
== END 2021-09-30 19:18 | disposition home or self-care (01) ==
LOC: ER 15:42
DX: N39.0 Urinary tract infection, site not specified (principal); R51.9 Headache, unspecified; I10 Essential (primary) hypertension
CPT/HCPCS: 93005; 85025; 80048; 36415; 83735; 85610; 85730; 81003; 84484; 70450; 70496; 70498; 96374; 99284; Q9967

== ENCOUNTER 2022-03-13 08:13 | Inpatient (IN) | payer OTHER ==
--- OUTSIDE RECORDS SUMMARY | 2022-03-13 08:16 | XMS REPORT | Clinical Summary ---
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, including shoulder; Skin cancer scr eening; Personal histor y of other malignant neoplasm of skin; Seborrheic semaj tosis; Hemangioma of s kin; Actinic keratos is 09/20/2021 Travel 08/23/2021 Office Visit Mimi Rosado Squamous cell MD [facility] carcinoma of sk in of left upper l imb, including shoul amberly 08/23/2021 Travel 07/24/2021 Office Visit Mimi Rosado, Basal cell carc inoma of nose (Primary Dx); MD [facility] 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, including shoulder; Squamous cell c arcinoma in situ 07/24/2021 Travel 07/22/2021 Orders Only Tamela Palomo cell Gertrude Bai, carcinoma of skin RN of left upper l imb, including shoul amberly (Primary Dx) 07/22/2021 Telephone Gertrude Palomo RN 07/13/2021 Telephone [facility], Discharge Call Edil Uribe RN 07/11/2021 Procedure visit Mimi Rosado, Squamous shawna l c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, including shoulder (Primary Dx); MD [facility] Basal cell carc inoma of nose 07/11/2021 Travel 2021 Ancillary Procedure Radiology Squamous cell carcinoma of sk in of left upper l imb, including shoul amberly 2021 Travel 07/04/2021 Office Visit Mimi Rosado, 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); MD [facility] 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, including shoulder; Basal cell carc inoma of nose; Neoplasm of unc ertain behavior of skin; Basal cell carc inoma of skin of left upper limb, including shoulder 07/04/2021 Travel 07/01/2021 Telephone Sang Calvert RN 06/28/2021 Orders Only Sang Calvert Basal cell car cinoma of nose; Alexys RN Squamous cell c arcinoma of zoroastrianism; 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, including shoulder 06/28/2021 Telephone Pain Medicine Chyna Velazquez MD 06/27/2021 Telephone Pain Medicine Rina Smith RN 06/21/2021 Office Visit Dermatology Chyna Velazquez, Squamous cell c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, including shoulder (Primary Dx); Neoplasm of unc ertain behavior of skin; Skin cancer scr eening; Personal histor y of other malignant neoplasm of skin; Seborrheic semaj tosis; Hemangioma of s kin; Basal cell carc inoma of nose; Squamous cell c arcinoma of skin of other part of face 06/21/2021 NPR Patient Access Chyna Velazquez Services MD 06/21/2021 Travel after 03/13/2021 Surgical History Surgery Date Site/Laterality Comments COLONOSCOPY [...] file Not on file Not on file Obstetrics History Last Filed Vital Signs Vital Sign Reading Time Taken Comments Blood Pressure 176/83 09/20/2021 9:52 notified Fransisca juárez RN AM FITNESS TEACHER Pulse 67 09/20/2021 9:52 AM FITNESS TEACHER Temperature 36.6 C (97.9 F) 09/20/2021 9:52 AM FITNESS TEACHER Respiratory Rate 18 09/20/2021 9:51 AM FITNESS TEACHER Oxygen Saturation 96% 08/23/2021 11:23 AM CDT Inhaled Oxygen - - Concentration Weight 65.9 kg (145 lb 4.5 09/20/2021 9:51 oz) AM FITNESS TEACHER Height 148.5 cm (4' 10.47") 06/21/2021 9:40 AM CDT Body Mass Index 29.88 06/21/2021 9:40 AM CDT Plan of Treatment Date Type Specialty Care Team Description 06/30/2022 Office Visit Dermatology Chyna Velazquez M D [address] [place], [place] [address] (Wo rk) Health Maintenance Due Date Last Done Comments COVID-19 Vaccination (1) 1940 Procedures Procedure Name Priority Date/Time Associated Comments Diagnosis PATHOLOGY BIOPSY Routine 09/20/2021 10:18 Neoplasm of Results for this INTERPRETATION AM FITNESS TEACHER uncertain behavior procedu re are in of [...] in of skin the results section. after 03/13/2021 Results Pathology Biopsy Interpretation (09/20/2021 10:18 AM FITNESS TEACHER)Only the most recent of 3 resultswithin the time period is included. Component Value Ref Test Analysis Performed Pathologis t Range Method Time At Signature Addendum 1 Multiple additional deeper t issue sections have been cut and examined. 09/23/2021 [facility] Addendum 1:25 PM electronic ally Deeper tissue levels show FO SON SQUAMOUS CELL CARCINOMA IN SITU ARISING IN ASSOCIATION WITH HYPERPLASTIC ACTINIC KERATOSIS, TRAUMATIZED PRESENT AT PERIPHERAL AND DEEP TISSUE EDGES. 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 1:25 PM signed by Junior See comment. FITNESS TEACHER Nurys Lima on 09/21/2021 at 12:18 PM Comment An additional 09/23/2021 [facility] biopsy may be 1:25 PM considered should FITNESS TEACHER this lesion fail to respond to conservative therapy. Gross A: 09/23/2021 [facility] Description Skin, r lateral submandibula r jawline - 4-5 mm pink scaly thin papule - ?scc in situ: 1 hdz skin shave, 0.6 x 0.4 x 0.1 cm. The margins are inked, bisected, entirely submitted in A1. ET 1:25 P M FITNESS TEACHER Disclaimer "Some tests 09/23/2021 [facility] reported here may 1:25 PM have been FITNESS TEACHER developed and performance characteristics determined by [facility]. These tests have not been specifically cleared or approved by the [place].S. Food and Drug Administration. If applicable, controls were reviewed and showed appropriate reactivity." Specimen Anatomical Collection Method Collection Time Receive d Time (Source) Location / / Volume Laterality Tissue (Skin) 09/20/2021 10:18 09/20/2021 AM FITNESS TEACHER 3:42 PM FITNESS TEACHER Chyna Velazquez MD LAB PATHOLOGY ORDERABLES Performing Organization Address City/State/ZIP Code Phon e Number [facility] [place] [address] [address] [place] Upper Extremity Limited Left (2021 10:28 AM CDT) Anatomical Region Laterality Modality Arm, Extremity Left Ultrasound Specimen (Source) Anatomical Collection Method Collection Time Re ceived Time Location / / Volume Laterality 2021 10:48 AM CDT Impressions 2021 11:02 AM CDT Unremarkable ultrasound exam of the left upper extremity antecubital fossa and axillary region. No suspicious lesions or lymphadenopathy. I personally reviewed these image(s) eb perdomo with the resident's/fellow's interpretations, certify that if a procedure was performed I was physically present, and agree with the final report. Narrative 2021 11:02 AM CDT FULL RESULT: Examination: [...] cm Procedure Note Ena Tony MD - 2021Formkrunal ng of this note might be different from the original. FULL RESULT: Examination: US UPPER EXTREMITY LIMITED [...] lymphadenopathy. I personally reviewed these image(s) eb ng with the resident's/fellow's interpretations, certify that if a procedure was performed I was physically present, and agree with the final report. 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
--- OUTSIDE RECORDS SUMMARY | 2022-03-13 08:22 | XMS REPORT | Continuity of Care Document ---
:1935 Author Organization [facility] [place] [facility] t Address [address] [place] [address] Care Team Providers Name Role Phone [phone] Primary Care Physician Unavailable RENZO Attending Clinician Unavailable SYSTEM, NOT IN Attending Clinician Unavailable MERVIN PUENTES Attending Clinician Unavailable Luis SU, Henry Attending Clinician Kvng SU Attending Clinician Unavailable Alexys Downs RN Attending Clinician Unavailable Lucille DELANEY Attending Clinician LUCILLE Attending Clinician Unavailable Emmanuel DELANEY Attending Clinician EMMANUEL Attending Clinician Unavailable Bhumika Reyes RN Attending Clinician Unavailable Logan SU, Rony Attending Clinician Unavailable DIMA, K.H. Attending Clinician Unavailable Juan Miguel SU, Feliciano Attending Clinician Unavailable Jazmin THOMPSON, F Attending Clinician Beverly DELANEY Attending Clinician Dima DELANEY, K.H. Attending Clinician Demetrius DELANEY Attending Clinician DEMETRIUS Attending Clinician Unavailable Ralf SU, Henry Attending Clinician Unavailable Kenyetta MCKEE S Attending Clinician Amadeo DELANEY Attending Clinician Amy DELANEY Attending Clinician Traci WALSH Attending Clinician Unavailable Raijman MD, L Attending Clinician Elin Moran MD Attending Clinician Blanquita Joseph Attending Clinician RENZO Admitting Clinician Unavailable Beverly DELANEY Admitting Clinician Amy DELANEY Admitting Clinician Payers Payer Name Policy Type Policy Number Effective Date Expiration Date S lori [facility] [id number] 2020 [facility] 00:00:00 PPO MEDICARE A B [id number] 1998 00:00:00 [employer] TRS RETIREES [id number] 2010 2010 00:00:00 00:00:00 [employer] PPO I [id number] 2010 00:00:00 [facility] [id number] 2020 2020 00:00:00 00:00:00 Problems Condition Condition Condition Status Onset Resolution Last Treating Co mments Source Name Details Category Date Date Treatment Clinician Date Weakness Weakness Disease Active Unive rs 5-22 ity of 00:00: [place] 00 [facility] Branch Chronic Chronic Disease Active Univers diastolic diastolic - ity of congestive [place] heart heart 00 [facility] failure failure Branch Type 2 Type 2 Disease Active Univers diabetes diabetes - ity of mellitus mellitus 00:00: [place] without without 00 Medical complicati complicati Br anch on, on, without without long-term long-term current current use of use of insulin insulin 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 C. Disease Active Univers difficile difficile -22 ity of colitis colitis 00:00: [facility] Branch Chest pain Chest pain Disease Active U nivers in adult in adult 5-21 ity of 00:00: [place] [facility] Branch Complicate Complicate Disease Active U nivers d UTI d UTI 5-06 ity of (urinary (urinary 00:00: [place] tract tract 00 Medical infection) infection) Br anch PAF PAF Disease Active Univers (paroxysma (paroxysma 02-21 it y of l atrial l atrial 00:00: [place] fibrillati fibrillati 00 Me dical on) on) Branch Essential Essential Disease Active Uni vers hypertensi hypertensi 02-21 it y of on on 00:00: [place] 00 Medical Branch Dyslipidem Dyslipidem Disease Active U nivers ia ia 02-21 ity of 00:00: [place] 00 Medical Branch Elevated Elevated Disease Active Unive [...] 00:00: [place] RVR RVR 00 Medical Branch Hyperlipid Hyperlipid Disease Active M ethodi emia emia 7- st 00:00: Hospita 00 l DM DM Disease Active Methodi (diabetes (diabetes 04-19 st mellitus) mellitus) 00:00: Hosp tyshawn 00 l UTI UTI Disease Active Methodi (urinary (urinary 04-19 st tract tract 00:00: Hospita infection) infection) 00 l Spondyloli Spondyloli Disease Active Overview : Methodi sthesis at sthesis at 2-[address] L4-L5 L4-L5 00:00: g of this Hospita level level 00 note l might be different from the original. Added automatic ally from request for surgery [id number] Spondyloli Spondyloli Disease Active Overview : 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 Added automatic ally from request for surgery [id number] Trochanter Trochanter Disease Active Overview : Methodi ic ic 2-[address] bursitis bursitis 00:00: g of this Hos mario of right of right 00 note l hip hip might be different from the original. 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 s with 00:00: Hospita radiculopa radiculopa 00 l thy, thy, lumbar lumbar region region Spondyloli Spondyloli Disease Active M ethodi sthesis of sthesis of 4-10 st lumbar lumbar 00:00: Hospita region region 00 l Primary Primary Disease Active 2015-10 Methodi osteoarthr osteoarthr 0-17 st itis of itis of 00:00: Hospita right knee right knee 00 l Rheumatoid Rheumatoid Disease Active M ethodi arthritis arthritis 05-08 involving involving 00:00: Hosp tyshawn multiple multiple 00 l sites with sites with positive positive rheumatoid rheumatoid factor factor Follow-up Follow-up Disease Active Met hodi examinatio examinatio 05-06 n n 00:00: Hospita following following 00 l treatment treatment with with high-risk high-risk medication medication Hypothyroi Hypothyroi Disease Active M ethodi dism dism 04-03 00:00: Hospita 00 l S/P S/P Disease Active Methodi ALBANIA-BSO ALBANIA-BSO 04-03 00:00: Hospita 00 l Hypertensi Hypertensi Disease Active 0 M ethodi on on 04-03 00:00: Hospita 00 l Degenerati Degenerati Disease Active 0 M ethodi on of on of 03-09 interverte interverte 00:00: Ho spita bral disc bral disc 00 l of of lumbosacra lumbosacra l region l region Allergies, Adverse Reactions, Alerts Allergy Allergy Status Severity Reaction(s) Onset Inactive Treating Comm ents Source Name Type Date Date Clinician CODEINE DRUG Active Hives Univers INGREDI 5-05 ity of 00:00: [place] 00 Medical Branch Codeine Propensi Active Hives dizzy Univers ty to 5-05 ity of adverse 00:00: [place] reaction 00 Medical s Branch Codeine Propensi Active Other (See FEELS Met hodi ty to Comments) 5-[address] adverse 00:00: PT Hospita reaction 00 l s to drug Codeine Drug Active Mild Other [facility] Other Medical 00 (See Center Comments) FEELS CRAZY PER PT CODEINE Allergy Active Low [facility] NO KNOWN Allergy Active [facility] Family History Family Member Diagnosis Comments Start Date Stop Date Source Natural brother Diabetes [facility] Natural mother Old age [facility] Natural father Lung cancer MD Louise on Social History Social Habit Start Date Stop Date Quantity Comments Source History [facility]OH [facility] l Exposure to Not sure University SARS-CoV-2 [facility] (event) Branch History [facility] Drinks History [facility] Alcohol intake 2021-07-03 2021-07-03 Ex-drinker MD Bakari bill 00:00:00 00:00:00 (finding) Tobacco use and 2021-06-21 2021-06-21 Smokeless tobacco Aurelio exposure 00:00:00 00:00:00 non-user History SDOH 2021-03-08 2021-03-08 17 University o f Education 00:00:00 00:00:00 [facility] Alcohol Comment 2019-10-31 2019-10-31 1-2 times a year [facility] 00:00:00 00:00:00 Hospital Sex Assigned At [birth year] MD Louise on 00:00:00 00:00:00 Smoking Status Start Date Stop Date Source Never smoker [facility] Medications Ordered Filled Start Stop Current Ordering Indication Dosage Frequency Signature Comments Components Source Medication Medication Date Date Medication? Clinician (SIG) Name Name metFORMIN 2020-10 Yes 500mg Take 500 MD (GLUCOPHAGE 2-03 mg by Bakari ) 500 mg 09:58: mouth n tablet [...] Yes Take by MD parra 2-03 mouth. Andersnadine acidophilus 09:58: n (PROBIOTIC 05 ORAL) acetaminoph 2020-10 Yes 500mg Take 500 M D en 2-03 mg by Anderso (TYLENOL) 09:58: mouth. 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 including shoulder mupirocin Yes Neoplasm of Apply (BACTROBAN) 07-04 uncertain topically Anderso 2% ointment 00:00: behavior of to n 00 skin affected area(s) twice daily. levocetiriz Yes ine (XYZAL) 06-25 Anderso 5 MG tablet 00:00: n 00 fluticasone Yes SHAKE propionate 06-22 LIQUID AND And erso (FLONASE) 00:00: USE 1 n 50 00 SPRAY IN mcg/spray EACH nasal spray NOSTRIL TWICE DAILY predniSONE Yes [id number] 5mg Take 1 Univers 5 mg tablet 5-27 tablet by ity of 00:00: mouth [place] 00 daily. Medical Branch predniSONE Yes [id number] 5mg Take 1 Univers 5 mg tablet 5-27 tablet by ity of 00:00: mouth [place] 00 daily. Medical Branch predniSONE Yes 5mg Take 5 mg MD (DELTASONE) 5-27 by mouth [place] rso 5 mg tablet 00:00: daily. n 00 Iron-Folic Yes Take by Uni vers Acid-Mv, 5- mouth 2 ity of Min Cmb#15 19:33: (two) [place] (CENTRATEX) 14 times Medical 106 mg daily. Branch iron- 1 mg Cap Iron-Folic Yes Take by Uni vers Acid-Mv, 5-26 mouth 2 ity of Min Cmb#15 19:33: (two) [place] (CENTRATEX) 14 times Medical 106 mg daily. Branch iron- 1 mg Cap famciclovir 2020- No 1{tbl} Take 1 U [...] of 5 mg tablet 17:25: 00:00 at [place] 18 :00 bedtime. Medical Branch carvediloL 2020- No 12.5mg Take 12.5 Univers (COREG) 5-26 05-26 mg by ity of 12.5 mg 17:25: 00:00 mouth 2 [place] tablet 18 :00 (two) Medical times Branch daily with meals. metFORMIN 2020- No 500mg Take 500 Un ignacia 500 mg 5-26 05-26 mg by ity of tablet 17:25: 00:00 mouth 2 [place] 18 :00 (two) Medical times Branch daily with meals. DULoxetine 2020- No 30mg Take 30 mg Univers 30 mg 5-26 05-26 by mouth ity of capsule 17:25: 00:00 daily. [place] 18 :00 Medical Branch olmesartan 2020- No 40mg Take 40 mg Univers 40 mg 5-26 05-26 by mouth ity of tablet 17:25: 00:00 daily. [place] 18 :00 Medical Branch famciclovir 2020- No 1{tbl} Take 1 U nivers (FAMVIR 5-26 05-26 tablet by ity of ORAL) 17:25: 00:00 mouth 3 [place] 18 :00 (three) Medical times Branch daily. [...] mouth ity of capsule 17:25: 00:00 daily. [place] 18 :00 Medical Branch rosuvastati 2020- No 5mg Take 5 mg Univers n (CRESTOR) 5-26 05-26 by mouth ity of 5 mg tablet 17:25: 00:00 at [place] 18 :00 bedtime. Medical Branch carvediloL 2020- [...] 18 :00 daily. Medical tablet Branch levothyroxi No 88ug Take 88 Un ignacia ne [...] times Branch daily with meals. hydrOXYchlo Yes [id number] 200mg Take 1 Univers roQUINE 5-26 tablet by ity of (PLAQUENIL) 00:00: mouth [place] 200 mg 00 daily. Medical tablet Branch rosuvastati Yes [id number] 5mg Take 1 Univers n (CRESTOR) 5-26 tablet by ity of 5 mg tablet 00:00: [place] 00 bedtime. Medical Branch carvediloL Yes [id number] 12.5mg Take 1 Univers (COREG) 5-26 tablet by ity of 12.5 mg 00:00: mouth 2 [place] tablet 00 (two) Medical times Branch daily with meals. levothyroxi Yes [id number] 88ug Take 1 Univers ne 88 mcg 5-26 tablet by ity o f tablet 00:00: mouth [place] 00 every Medical morning. Branch 6AM lactobacill Yes [id number] 1{tbl} Take 1 Univers us 5-26 tablet by ity of acidophilus 00:00: mouth 2 [place] 25 million 00 (two) Medical cell -100 times Branch mg captab daily. hydrOXYchlo Yes [id number] 200mg Take 1 Univers roQUINE 5-26 tablet by ity of (PLAQUENIL) 00:00: mouth [place] 200 mg 00 daily. Medical tablet Branch rosuvastati Yes [id number] 5mg Take 1 Univers n (CRESTOR) 5-26 tablet by ity of 5 mg tablet 00:00: [place] 00 bedtime. Medical Branch carvediloL Yes [id number] 12.5mg Take 1 Univers (COREG) 5-26 tablet by ity of 12.5 mg 00:00: mouth 2 [place] tablet 00 (two) Medical times Branch daily with meals. levothyroxi Yes [id number] 88ug Take 1 Univers ne 88 mcg 5-26 tablet by ity o f tablet 00:00: mouth [place] 00 every Medical morning. Branch 6AM lactobacill Yes [id number] 1{tbl} Take 1 Univers us 5-26 tablet [...] 00:00: daily. n 00 furosemide 2020- No [id number] 20mg Take 1 Univers 20 mg 5-26 06-26 tablet by ity of tablet 00:00: 04:59 mouth [place] 00 :00 daily for Medical 30 days. Branch KCL 10 mEq 2020- No [id number] 20meq Take 2 Univers tablet 5-26 06-26 tablets by ity of 00:00: 04:59 mouth [place] 00 :00 daily for Medical 30 days. Branch furosemide 2020- No [id number] 20mg Take 1 Univers 20 mg 5-26 06-26 tablet by ity of tablet 00:00: 04:59 mouth [place] 00 :00 daily for Medical 30 days. Branch KCL 10 mEq 2020- No [id number] 20meq Take 2 Univers tablet 5-26 06-26 tablets by ity of 00:00: 04:59 mouth [place] 00 :00 daily for Medical 30 days. Branch vancomycin 2020- No [id number] Take 1 Univers 125 mg 5-26 06-20 capsule by ity of capsule 00:00: 04:59 mouth 4 [place] 00 :00 (four) Medical times Branch daily for 10 days, THEN 1 capsule 2 (two) times daily for 7 days, THEN 1 capsule daily for 7 days. vancomycin 2020- No [id number] Take 1 Univers 125 mg 5-26 06-20 capsule by ity of capsule 00:00: 04:59 mouth 4 [place] 00 :00 (four) Medical times Branch daily for 10 days, THEN 1 capsule 2 (two) times daily for 7 days, THEN 1 capsule daily for 7 days. KCL 2020- No 40meq 40 mEq, Univers (KLOR-CON - 05-26 Oral, BID, ity of M20) tablet 01:15: 00:51 First dose [place] 40 mEq 00 :56 (after Medical last Branch modificati on) on 03/11/21 at 2015, Until Discontinu ed, Routine KCL 2020- No 40meq 40 mEq, Univers (KLOR-CON -24 05-25 Oral, ity of M20) tablet 20:45: 01:04 DAILY, [place] 40 mEq 00 :19 First dose Medical on Mon Branch 03/11/21 at 1545, Until Discontinu ed, Routine vancomycin 2020- No 250mg 250 mg, Un ignacia (VANCOCIN) 03-09 06-05 Oral, QID, it y of capsule 250 22:00: 00:59 53 doses, [place] mg 00 :00 First dose Medical (after Branch last modificati on) on Thu03/09/21 at 1700, Last dose on Thu03/22/21 at 1600, Routine
Reason for Anti-Infec tive: Documented Infection< br>Documen roxanna Infection Site: Abdominal< br>Duratio n of Therapy: 14 days Sliding Yes Subcutaneo Univ ers Scale 03-09 us, TID ity of Insulin - 17:00: MEALS+HS, [place] Lispro 00 First dose Medical (HumaLOG) + on [facility] Branch Fsbg 03/09/21 at Testing 1200, Until Discontinu ed, Routine hydrOXYchlo Yes 200mg 200 mg, Un ignacia roQUINE 03-09 Oral, ity of (PLAQUENIL) 16:15: DAILY, [place] tablet 200 00 First dose Med ical mg on [facility] 03/09/21 at 1115, Until Discontinu ed, Routine
Indicatio n: Rheumatic disorder predniSONE Yes 5mg 5 mg, Univer s (DELTASONE) 03-09 Oral, ity of tablet 5 mg 16:15: DAILY, [place] 00 First dose Medical on [facility] 03/09/21 at 1115, Until Discontinu ed, Routine omeprazole 2020- No 20mg 20 mg, Univ ers (PRILOSEC) 03-09 05-24 Oral, ity of capsule 20 14:00: 20:28 DAILY, [place] mg 00 :14 First dose Medical on [facility] 03/09/21 at 0900, Until Discontinu ed, Routine carvediloL Yes 12.5mg 12.5 mg, U nivers (COREG) 03-09 Oral, BID ity of tablet 12.5 13:00: MEALS, [place] mg 00 First dose Medical on [facility] 03/09/21 at 0800, Until Discontinu ed, Routine vancomycin 2020- No 125mg 125 mg, Un ignacia (VANCOCIN) 03-09-22 Oral, QID, it y of capsule 125 13:00: 21:36 56 doses, [place] mg 00 :50 First dose Medical on [facility] Branch 03/09/21 at 0800, Last dose on Thu03/22/21 at 2000, Routine
Reason for Anti-Infec tive: Documented Infection< br>Documen roxanna Infection Site: Abdominal< br>Duratio n of Therapy: 14 days levothyroxi Yes 88ug 88 mcg, Uni vers ne 03-09 Oral, ity of (SYNTHROID) 11:00: QAM-0600, [place] tablet 88 00 First dose Medi eduar mcg on Thu Branch 03/09/21 at 0600, Until Discontinu ed, Routine rosuvastati Yes 5mg 5 mg, Unive rs n (CRESTOR) 03-09 Oral, QHS, it y of tablet 5 mg 02:00: First dose [place] 00 on Thu Medical 03/08/21 at Branch 2100, Until Discontinu ed, Routine enoxaparin Yes 40mg 40 mg, Unive rs (LOVENOX) 03-08 Subcutaneo ity of injection 22:00: us, DAILY, [place] 40 mg 00 First dose Medical on Thu Branch 03/08/21 at 1700, Until Discontinu ed, Routine acetaminoph Yes 650mg 650 mg, Un ignacia en 03-08 Oral, ity of (TYLENOL) 19:47: Q6HPRN, [place] tablet 650 32 Starting Medic al mg Thu Branch 03/08/21 at 1447, Until Discontinu ed, Routine, Pain (scale 1-3) FENTanyl PF 2020- No 50ug 50 mcg, Un ignacia (SUBLIMAZE 03-08 Slow IV ity o f (PF)) 19:45: 18:50 Push, [place] injection 00 :00 ONCE, 1 Medical 50 mcg dose, Thu Branch 03/08/21 at 1445, Routine NaCl 0.9% 2020- No 250mL at 50 Unive rs (NS) IV 03-08 mL/hr, IV ity of infusion 18:30: 17:46 Infusion, [place] 250 mL 00 :00 ONCE, 1 Medical dose, Thu Branch 03/08/21 at 1330, Routine potassium 2020- No 10meq 10 mEq, IV Univers chloride in 03-08 Piggyback, i ty of water 10 18:30: 18:46 ONCE, 1 [place] mEq/100 mL 00 :00 dose, Thu Medi eduar RTU 10 mEq 03/08/21 at [facility] 1330, 100 mL KCL 2020- No 40meq [...] ONCE, 1 Medical 50 mcg dose, Fri [place] 03/08/21 at 1315, Routine iohexol 2020- No [id number] 100mL 100 mL, Univers (OMNIPAQUE 03-08 Intravenou it y of 350 17:25: 17:25 s, ONCE, 1 [place] BULK-100 00 :00 dose, Fri Medica l mL) 03/08/21 at [place] injection 1245, 100 mL Routine olmesartan Yes 40mg Take 40 mg U nivers 40 mg 5-19 by mouth ity of tablet 19:02: daily. [address] Iron-Folic Yes Take by Uni vers Acid-Mv, - mouth 2 ity of Min Cmb#15 19:02: (two) [place] (CENTRATEX) 37 times Medical 106 mg daily. [place] iron- 1 mg Cap olmesartan Yes 40mg Take 40 mg U nivers 40 mg 5-19 by mouth ity of tablet 19:02: daily. [address] Iron-Folic Yes Take by Uni vers Acid-Mv, -19 mouth 2 ity of Min Cmb#15 19:02: (two) [place] (CENTRATEX) 37 times Medical 106 mg daily. [place] iron- 1 mg Cap olmesartan 0 Yes 40mg Take 40 mg U nivers 40 mg 5-19 by mouth ity of tablet 19:02: daily. [address] Iron-Folic Yes Take by Uni vers Acid-Mv, 5-19 mouth 2 ity of Min Cmb#15 19:02: (two) [place] (CENTRATEX) 37 times Medical 106 mg daily. [place] iron- 1 mg Cap levothyroxi 0 Yes 88ug Take 88 Uni vers ne 88 mcg 5-19 mcg by ity of tablet 19:01: mouth [place] [address] [place] [address] metFORMIN 2020-0 Yes 500mg Take 500 Uni vers 500 mg 5-19 mg by ity of tablet 19:01: mouth 2 [place] [address] (two) Medical times [place] daily with meals. DULoxetine 0 Yes 30mg Take 30 mg U nivers 30 mg 5-19 by mouth ity of capsule 19:01: daily. [address] levothyroxi 2020-0 Yes 88ug Take 88 Uni vers ne 88 mcg 5-19 mcg by ity of tablet 19:01: mouth [place] [address] [place] [address] metFORMIN 0 Yes 500mg Take 500 Uni vers 500 mg 5-19 mg by ity of tablet 19:01: mouth 2 [place] [address] (two) Medical times [place] daily with meals. DULoxetine 0 Yes 30mg Take 30 mg U nivers 30 mg 5-19 by mouth ity of capsule 19:01: daily. [address] levothyroxi 2020-0 Yes 88ug Take 88 Uni vers ne 88 mcg 5-19 mcg by ity of tablet 19:01: mouth [place] [address] [place] [address] metFORMIN 0 Yes 500mg Take 500 Uni vers 500 mg 5-19 mg by ity of tablet 19:01: mouth 2 [place] [address] (two) Medical times [place] daily with meals. DULoxetine 0 Yes 30mg Take 30 mg U nivers 30 mg 5-19 by mouth ity of capsule 19:01: daily. [address] famciclovir 2020-0 Yes 1{tbl} Take 1 Un ignacia (FAMVIR 5-19 tablet by ity of ORAL) 19:00: mouth 3 [place] [address] (three) Medical times [place] daily. famciclovir 2020-0 Yes 1{tbl} Take 1 Un ignacia (FAMVIR 5-19 tablet by ity of ORAL) 19:00: mouth 3 [place] [address] (three) Medical times [place] daily. famciclovir 2020-0 Yes 1{tbl} Take 1 Un ignacia (FAMVIR 5-19 tablet by ity of ORAL) 19:00: mouth 3 [place] [address] (three) Medical times [place] daily. GABAPENTIN 2021-0 2021- No 100mg Take 100 U nivers ORAL 5-19 05-19 mg by ity of 18:59: 00:00 mouth 3 [place] 52 :00 (three) Medical times Branch daily. GABAPENTIN 2020- No 100mg Take 100 U nivers ORAL 5-19 05-19 mg by ity of 18:59: 00:00 mouth 3 [place] 52 :00 (three) Medical times Branch daily. GABAPENTIN 2020- No 100mg Take 100 U nivers ORAL 5-19 05-19 mg by ity of 18:59: 00:00 mouth 3 [place] 52 :00 (three) Medical times Branch daily. GABAPENTIN 2020- No 100mg Take 100 U nivers ORAL 5-19 05-19 mg by ity of 18:59: 00:00 mouth 3 [place] 52 :00 (three) Medical times Branch daily. ofloxacin 2020- No 1[drp] Place 1 Un ignacia 0.3 % 5-19 05-19 Drop in ity of ophthalmic 18:59: 00:00 left eye 3 [place] solution 49 :00 (three) Medical times Branch daily. ofloxacin 2020- No 1[drp] Place 1 Un ignacia 0.3 % 5-19 05-19 Drop in ity of ophthalmic 18:59: 00:00 left eye 3 [place] solution 49 :00 (three) Medical times Branch daily. ofloxacin 2020- No 1[drp] Place 1 Un ignacia 0.3 % 5-19 05-19 Drop in ity of ophthalmic 18:59: 00:00 left eye 3 [place] solution 49 :00 (three) Medical times Branch daily. ofloxacin 2020- No 1[drp] Place 1 Un ignacia 0.3 % 5-19 05-19 Drop in ity of ophthalmic 18:59: 00:00 left eye 3 [place] solution 49 :00 (three) Medical times Branch daily. hydrOXYchlo Yes 200mg Take 200 U nivers roQUINE 5-19 mg by ity of (PLAQUENIL) 18:56: mouth [place] 200 mg 05 daily. Medical tablet Branch omeprazole Yes 25mg Take 25 mg U nivers 20 mg 5-19 by mouth ity of capsule 18:56: daily. [place] 05 Medical Branch rosuvastati 0 Yes 5mg Take 5 mg U nivers n (CRESTOR) 5-19 by mouth ity of 5 mg tablet 18:56: at [place] 05 bedtime. Medical Branch carvediloL 0 Yes 12.5mg Take 12.5 Univers (COREG) 5-19 [...] by mouth ity of capsule 18:56: daily. Medical Branch rosuvastati Yes 5mg Take 5 mg U nivers n (CRESTOR) 5-19 by mouth ity of 5 mg tablet 18:56: at [place] 05 bedtime. Medical Branch carvediloL Yes 12.5mg Take 12.5 Univers (COREG) 5-19 mg by ity of 12.5 mg 18:56: mouth 2 [place] tablet 05 (two) Medical times [place] daily with meals. hydrOXYchlo 0 Yes 200mg Take 200 U nivers roQUINE 5-19 mg by ity of (PLAQUENIL) 18:56: mouth [place] 200 mg 05 daily. Medical tablet Branch omeprazole Yes 25mg Take 25 mg U nivers 20 mg 5-19 by mouth ity of capsule 18:56: daily. Medical Branch rosuvastati 0 Yes 5mg Take 5 mg U nivers n (CRESTOR) 5-19 by mouth ity of 5 mg tablet 18:56: at [place] 05 bedtime. Medical Branch carvediloL Yes 12.5mg Take 12.5 Univers (COREG) 5-19 mg by ity of 12.5 mg 18:56: mouth 2 [place] tablet 05 (two) Medical times [place] daily with meals. furosemide 0 Yes [id number] 40mg Take 1 Univers 40 mg 5-19 tablet by ity of tablet 00:00: mouth [place] 00 daily. Medical Branch furosemide Yes [id number] 40mg Take 1 Univers 40 mg 5-19 tablet by ity of tablet 00:00: mouth [place] 00 daily. Medical Branch furosemide Yes [id number] 40mg Take 1 Univers 40 mg 5-19 tablet by ity of tablet 00:00: mouth [place] 00 daily. Medical Branch KCL 20 mEq 2020- No [id number] 20meq Take 1 Univers tablet 5-19 06-19 tablet by ity of 00:00: 04:59 mouth [place] 00 :00 daily for Medical 30 days. Branch KCL 20 mEq 2020- No [id number] 20meq Take 1 Univers tablet 5-19 06-19 tablet by ity of 00:00: 04:59 mouth [place] 00 :00 daily for Medical 30 days. Branch KCL 20 mEq 2020- No [id number] 20meq Take 1 Univers tablet 5-19 06-19 tablet by ity of 00:00: 04:59 mouth [place] 00 :00 daily for Medical 30 days. Branch furosemide 2020- No [id number] 40mg Take 1 Univers 40 mg 5-19 05-26 tablet by ity of tablet 00:00: 00:00 mouth [place] 00 :00 daily. Medical Branch KCL 20 mEq 2020- No [id number] 20meq Take 1 Univers tablet 5-19 05-26 [...] Branch Levothyroxi Yes 100ug Take 100 U nivargenis ne 100 mcg 5-07 mcg by ity [...] by mouth ity of capsule 22:16: daily. [place] [address] Medical Branch rosuvastati 0 Yes 5mg Take 5 mg U nivers n (CRESTOR) 5-07 by mouth ity of 5 mg tablet 22:16: at [place] [address] bedtime. Medical Branch carvediloL Yes 12.5mg Take 12.5 Univers (COREG) 5-07 mg by ity of 12.5 mg 22:16: mouth 2 [place] tablet 54 (two) Medical times Branch daily with meals. famciclovir Yes 1{tbl} Take 1 [place] (FAMVIR 5-07 tablet by ity of ORAL) 22:16: mouth 3 [place] 54 (three) Medical times Branch daily. GABAPENTIN 0 Yes 100mg Take 100 [place] ORAL 5-07 mg by ity of 22:16: mouth 3 [place] 54 (three) Medical times Branch daily. hydrOXYchlo [...] by mouth ity of capsule 22:16: daily. [place] [address] Medical Branch rosuvastati 0 Yes 5mg Take 5 mg U nivers n (CRESTOR) 5-07 by mouth ity of 5 mg tablet 22:16: at [place] [address] bedtime. Medical Branch carvediloL 0 Yes 12.5mg Take 12.5 Univers (COREG) 5-07 mg by ity of 12.5 mg 22:16: mouth 2 [place] tablet 54 (two) Medical times Branch daily with meals. famciclovir Yes 1{tbl} Take 1 [place] (FAMVIR 5-07 tablet by ity of ORAL) 22:16: mouth 3 [place] 54 (three) Medical times Branch daily. GABAPENTIN 0 Yes 100mg Take 100 [facility] [place] ORAL 5-07 mg by ity of 22:16: mouth 3 [place] 54 (three) Medical times Branch daily. hydrOXYchlo [...] by mouth ity of capsule 22:16: daily. [place] [address] Medical Branch rosuvastati 0 Yes 5mg Take 5 mg U nivers n (CRESTOR) 5-07 by mouth ity of 5 mg tablet 22:16: at [place] [address] bedtime. Medical Branch carvediloL Yes 12.5mg Take 12.5 Univers (COREG) 5-07 mg by ity of 12.5 mg 22:16: mouth 2 [place] tablet 54 (two) Medical times Branch daily with meals. metFORMIN 0 2020- No 500mg Take 500 [place] 500 mg 5-07 05-07 mg by ity of tablet 20:47: 00:00 mouth 2 [place] 14 :00 (two) Medical times Branch daily with meals. olmesartan 2020-2020- No 40mg Take 40 mg Univers 40 mg 5-07 05-07 by mouth ity of tablet 20:47: 00:00 daily. [place] 14 :00 OLMESARTAN Medical MEDOXOMIL Branch predniSONE 2020-0 2021- No 20mg Take 20 mg Univers 20 mg 02-22- by mouth ity of tablet 20:47: 00:00 daily. 3 [place] 14 :00 TABS DAILY Medical FOR 3 Branch DAYS, THEN 2 TABLETS BY MOUTH FOR 3 DAYS LAST TAKEN 5.2.21 sulfur 2020- No [id number] 5mL 5 mL, [facility] [place] hexafluorid 02-22 9109 Intravenou i ty of e microsphr 18:15: 18:15 s, ONCE, 1 [place] (LUMASON) 00 :00 dose, Fri Medic al injection 5 02/22/21 at [facility] mL 1315, Routine
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 prednisoLON Yes [id number] 1[drp] Place 1 Univers E acetate 1 5-07 Drop in ity o f % 00:00: left eye 4 [place] ophthalmic 00 (four) Medical suspension times Branch drops daily. lactobacill 2020- No [id number] 1{tbl} Take 1 Univers us 02-22-07 tablet by ity of acidophilus 00:00: 04:59 mouth 2 [place] 25 million 00 :00 (two) Medical cell -100 times Branch mg captab daily for 30 days. lactobacill 2020- No [id number] 1{tbl} Take 1 Univers us - 06-07 tablet by ity of acidophilus 00:00: 04:59 mouth 2 [place] 25 million 00 :00 (two) Medical cell -100 times Branch mg captab daily for 30 days. lactobacill 2020- No [id number] 1{tbl} Take 1 Univers us 02-22 06-07 tablet by ity of acidophilus 00:00: 04:59 mouth 2 [place] 25 million 00 :00 (two) Medical cell -100 times Branch mg captab daily for 30 days. lactobacill 2020- No [id number] 1{tbl} Take 1 Univers us 5-07 06-07 tablet by ity of acidophilus 00:00: 04:59 mouth 2 [place] 25 million 00 :00 (two) Medical cell -100 times Branch mg captab daily for 30 days. lactobacill 2020- No [id number] 1{tbl} Take 1 Univers us 5-07 06-07 tablet by ity of acidophilus 00:00: 04:59 mouth 2 [place] 25 million 00 :00 (two) Medical cell -100 times Branch mg captab daily for 30 days. lactobacill 2020- No [id number] 1{tbl} Take 1 Univers us 5-07 06-07 tablet by ity of acidophilus 00:00: 04:59 mouth 2 [place] 25 million 00 :00 (two) Medical cell -100 times Branch mg captab daily for 30 days. lactobacill 2020- No [id number] 1{tbl} Take 1 Univers us 5-07 05-26 tablet by ity of acidophilus 00:00: 00:00 mouth 2 [place] 25 million 00 :00 (two) Medical cell -100 times Branch mg captab daily for 30 days. lactobacill 2020- No [id number] 1{tbl} Take 1 Univers us 5-07 05-26 tablet by ity of acidophilus 00:00: 00:00 mouth 2 [place] 25 million 00 :00 (two) Medical cell -100 times Branch mg captab daily for 30 days. lactobacill 2020- No [id number] 1{tbl} Take 1 Univers us 5-07 05-26 tablet by ity of acidophilus 00:00: 00:00 mouth 2 [place] 25 million 00 :00 (two) Medical cell -100 times Branch mg captab daily for 30 days. prednisoLON 2020- No [id number] 1[drp] Place 1 Univers E acetate 1 - 05-19 Drop in ity of % 00:00: 00:00 left eye 4 [place] ophthalmic 00 :00 (four) Medical suspension times Branch drops daily. prednisoLON 2020- No [id number] 1[drp] Place 1 Univers E acetate 1 02-22-19 Drop in ity of % 00:00: 00:00 left eye 4 [place] ophthalmic 00 :00 (four) Medical suspension times Branch drops daily. prednisoLON 2020- No [id number] 1[drp] Place 1 Univers E acetate 1 02-22-19 Drop in ity of % 00:00: 00:00 left eye 4 [place] ophthalmic 00 :00 (four) Medical suspension times Branch drops daily. prednisoLON 2020- No [id number] 1[drp] Place 1 Univers E acetate 1 02-22-19 Drop in ity of % 00:00: 00:00 left eye 4 [place] ophthalmic 00 :00 (four) Medical suspension times Branch drops daily. levoFLOXaci 2020- No [id number] 500mg Take 1 Univers n 500 mg 02-22 05-10 tablet by ity o f tablet 00:00: 04:59 mouth [place] 00 :00 every 24 Medical (- [place] ur) hours for 2 days. KCL Yes 20meq 20 mEq, Univers (KLOR-CON 02-21 Oral, ity of M20) tablet 14:00: DAILY, [place] 20 mEq 00 First dose Medical on [facility] 02/21/21 at 0900, Until Discontinu ed, Routine omeprazole Yes 20mg 20 mg, Unive rs (PRILOSEC) 02-21 Oral, ity of capsule 20 14:00: DAILY, [place] mg 00 First dose Medical on [facility] 02/21/21 at 0900, Until Discontinu ed, Routine hydrOXYchlo Yes 200mg 200 mg, [facility] [place] roQUINE 02-21 Oral, ity of (PLAQUENIL) 14:00: DAILY, [place] tablet 200 00 First dose Med ical mg on [facility] 02/21/21 at 0900, Until Discontinu ed, Routine
Indicatio n: Rheumatic disorder enoxaparin Yes 30mg 30 mg, Unive rs (LOVENOX) 02-21 Subcutaneo ity of injection 14:00: [place], DAILY, [place] 30 mg 00 First dose Medical on [place] [facility] 02/21/21 at 0900, Until Discontinu ed, Routine levothyroxi Yes 100ug 100 mcg, U nivers ne 5-06 Oral, ity of (SYNTHROID) 11:00: QAM-0600, [place] tablet 100 00 First dose Med ical mcg on [place] Branch 02/21/21 at 0600, Until Discontinu ed iohexol 2020- No [id number] 120mL 120 mL, U nivers (OMNIPAQUE 02-21- Intravenou it y of 350 09:15: 09:15 s, ONCE, 1 [place] BULK-150 00 :00 dose, [place] Medica l mL) 02/21/21 at Branch injection 0415, 120 mL Routine NaCl 0.9% 2020- No 500mL at 999 Univ ers (NS) bolus 02-21-06 mL/hr, 500 it y of infusion 07:30: 06:35 mL, IV [place] 500 mL 00 :00 Piggyback, Medical ONCE, 1 Branch dose, [place] 02/21/21 at 0230, STAT methylpredn 2020- No 60mg 60 mg, Uni vers isolone sod 02-21- Slow IV ity of succ 07:30: 06:26 Push, ONCE [place] (SOLU-MEDRO 00 :00 NOW, 1 Medica l L) dose, [place] Branch injection 02/21/21 at 60 mg 0230, KIRSTY KCL 2020- No IV Univers (POTASSIUM 02-21- Infusion, ity of CHLORIDE) 07:15: 12:13 CONTINUOUS [place] 20 mEq in 00 :19 , Starting Medi eduar D5W 0.9% [place] 02/21/21 Branc h NaCl (NS) at 0215, 1,000 mL IV Until [place] Solution 02/21/21 at 0713, 1,000 mL, at 125 mL/hr haloperidol 2020- No 5mg 5 mg, Slow Univers lactate 02-21-06 IV Push, ity of (HALDOL) 07:15: 06:13 ONCE, 1 [place] injection 5 00 :00 dose, [place] Med ical mg 02/21/21 at Branch 0215, Routine D5W 0.9% Yes IV Univers NaCl (NS) 1 5-06 Infusion, ity of L + KCL 20 07:00: at 125 [place] mEq 00 mL/hr, Medical CONTINUOUS Branch , Starting [place] 02/21/21 at 0200, Until Discontinu ed, Routine acyclovir Yes 10mg/kg 500 mg Uni vers (ZOVIRAX) 02-21 (rounded ity of 500 mg in 06:45: from 478 [place] NaCl 0.9% 00 mg = 10 Medical (NS) 100 mL mg/kg Branch IV infusion ?47.8 kg [place] weight), IV Infusion, Q8H ABX, First dose on [place] 02/21/21 at 0145, Until Discontinu ed, 100 mL
Rest ricted use approved by: ADC PROVIDER NaCl 0.9% 202- No 1000mL at 125 Uni vers (NS) IV 5 05-06 mL/hr, IV ity of infusion 06:45: 06:14 Infusion, Aniceto as 1,000 mL 00 :40 CONTINUOUS Medic al , Starting Branch [place] 02/21/21 at 0145, Until [place] 02/21/21 at 0114, Routine morpHINE 2020- No 2mg 2 mg, Slow [facility] [place] injection 2 02-21 05-06 IV Push, ity of mg 06:45: 05:40 ONCE, 1 [place] 00 :00 dose, [facility] Medical 02/21/21 at Branch 0145, Routine vancomycin Yes 125mg 125 mg, Uni vers (FIRVANQ) 02-21 Oral, BID, ity of 50 mg/mL 06:30: First dose Aniceto as oral 00 on [place] Medical solution 02/21/21 at Branch 125 mg 0130, Until Discontinu ed, Routine
Reason for Anti-Infec tive: Empiric Non-Surgic al Prophylaxi s
Durat ion of therapy: 7 days cefTRIAXone Yes 1000mg 1,000 mg, Univers (ROCEPHIN) -06 IV ity of 1,000 mg in 06:30: Piggyback, [place] NaCl 0.9% 00 Q12H ABX, Medic al (NS) 50 mL First dose [facility] MINI-BAG on [place] 02/21/21 at 0130, Until [...] Yes 50ug 50 mcg, Uni vers (SUBLIMAZE 02-21 Slow IV ity of (PF)) 06:23: Push, [place] injection 10 TIDPRN, Medical 50 mcg Starting Branch [place] 02/21/21 at 0123, Until Discontinu ed, Routine, Pain (scale 7-10) traMADoL Yes 50mg 50 mg, Univers (ULTRAM) 02-21 [...] injection 37 Starting Medica l 25 mL [place] 02/21/21 Branch at 0107, Until Discontinu ed, KIRSTY, Blood Glucose < or = 70 mg/dL and patient is unable to swallow or has mental status changes. predniSONE Yes 10mg 10 mg, Unive rs (DELTASONE) 5-06 Oral, ity of tablet 10 05:45: DAILY, [place] mg 00 First dose Medical on [facility] 02/21/21 at 0045, Until Discontinu ed, Routine moxifloxaci Yes 1[drp] 1 Drop, U nivers n (VIGAMOX) 02-21 Left Eye, ity of 0.5 % 05:45: TID, First [place] ophthalmic 00 dose on Medica l drops 1 [facility] 02/21/21 Branch Drop at 0045, Until Discontinu ed gabapentin Yes 200mg 200 mg, Uni vers (NEURONTIN) 5-06 Oral, TID, it y of capsule 200 05:45: First dose [place] mg 00 on [facility] 02/21/21 at Branch 0045, Until Discontinu ed, Routine carvediloL Yes 12.5mg 12.5 mg, U nivers (COREG) 5- Oral, BID ity of tablet 12.5 05:45: MEALS, [place] mg 00 First dose Medical on [facility] 02/21/21 at 0045, Until Discontinu ed, Routine meclizine Yes 25mg 25 mg, Univer s (TRAVEL-EAS 5- Oral, BID, it y of E 05:45: First dose [place] (MECLIZINE) 00 on [facility] Medica l ) tablet 25 02/21/21 at [facility] mg 44, Until Discontinu ed, Routine lactobacill Yes 1{tbl} 1 tablet, Univers us 02-21 Oral, BID, ity of acidophilus 05:30: First dose [place] (ACIDOPHILL 00 on [facility] Medica l US) 25 02/21/21 at Branch million 0030, cell -100 Until mg captab 1 Discontinu tablet ed, Routine docusate Yes 100mg 100 mg, Unive rs (COLACE) 5-06 Oral, BID, ity o f capsule 100 05:15: First dose [place] mg 00 on [facility] 02/21/21 at Branch 0015, Until Discontinu ed, Routine ondansetron Yes 4mg 4 mg, Slow Univers (ZOFRAN 5- IV Push, ity of (PF)) 05:06: Q6HPRN, [place] injection 4 41 Starting Medi eduar mg [facility] 02/21/21 Branch at 0006, Until Discontinu ed, Routine, Nausea and Vomiting (N/V) FENTanyl PF 2020-2020- No 25ug 25 mcg, [facility] [place] (SUBLIMAZE 5-05 05-05 Slow IV ity o f (PF)) 23:45: 23:05 Push, [place] injection 00 :00 ONCE, 1 Medical 25 mcg dose, Wed Branch 02/20/21 at 1845, STAT ondansetron 2020- No 4mg 4 mg, Slow Univers (ZOFRAN 5-05 05-05 IV Push, ity of (PF)) 22:15: 21:15 ONCE, 1 [place] injection 4 00 :00 dose, Wed Med ical mg 02/20/21 at Branch 1715, KIRSTY NaCl 0.9% 2020- No 500mL at 999 Univ ers (NS) bolus 5-05 05-05 mL/hr, 500 it y of infusion 22:15: 21:15 mL, IV [place] 500 mL 00 :00 Infusion, Medical ONCE, 1 Branch dose, 02/20/21 at 1715, STAT FENTanyl PF 2020- No 50ug 50 mcg, [facility] [place] (SUBLIMAZE 5-05 05-05 Slow IV ity o f (PF)) 21:45: 20:36 Push, [place] injection 00 :00 ONCE, 1 Medical 50 mcg dose, Wed Branch 02/20/21 at 1645, STAT predniSONE Yes 6mg QD Take [address] (DELTASONE) 2-11 by mouth Luke s 1 MG tablet 16:50: daily. Medi eduar 20 Center levothyroxi Yes 88ug QD Take [address] ne 2-11 mcg by [facility] (SYNTHROID, 16:50: mouth Medic al LEVOTHROID) 20 daily . Cente r 88 MCG tablet hydroxychlo Yes Q.5D Take by [facility] roquine 2-11 mouth 2 [facility] (PLAQUENIL) 16:50: (two) Medic al 200 mg 20 times Center tablet daily. carvediloL Yes 12.5mg Take 12.[address] (COREG) 2-11 mg by [facility] 12.5 MG 16:50: mouth 2 Medical tablet 20 (two) Center times daily with breakfast and dinner. metFORMIN Yes 500mg Take [address] (GLUCOPHAGE 2-11 mg by [facility] ) 500 MG 16:50: mouth 2 Medica l tablet 20 (two) Center times daily with breakfast and dinner. sodium Yes 2mg/kg Inject 2 [facility] chloride 2-11 mg/kg [facility] 0.9% (NS) 16:50: intravenou Me dical SolP 100 mL 20 sly once Cent er with every 8 golimumab weeks. 12.5 mg/mL Soln 2 mg/kg multivit,th Yes QD Take by [facility] er.w-iron,h 2-11 mouth [facility] ematinic 16:50: daily. Medical (THERAPEUTI 20 Center C FORMULA/HEM ATINICS ORAL) olmesartan Yes 40mg QD Take [address] (BENICAR) 2-11 by mouth [facility]ukes 40 MG 16:50: daily. Medical tablet 20 [place] leflunomide Yes 10mg QD Take [address] (ARAVA) 10 2-11 by mouth [facility]ukes MG tablet 16:50: daily. Medica l 20 [place] rosuvastati Yes 5mg QD Take [address] n (CRESTOR) 2-11 by mouth Luke s 5 MG tablet 16:50: daily. [facility] 20 [place] omeprazole Yes 20mg QD Take [address] (PriLOSEC) 2-11 by mouth [facility]ukes 20 MG 16:50: daily. Medical capsule 20 [place] cyanocobala Yes 100ug QD Take [address] min, 2-11 mcg by [facility] vitamin 16:50: mouth Medical B-12, 100 20 daily. [place] MCG tablet ferrous Yes 325mg Take 325 [facility] sulfate 325 2-11 mg by [facility] (65 FE) MG 16:50: mouth Medica l tablet 20 daily with Center breakfast. predniSONE Yes 6mg QD Take [address] (DELTASONE) 2-11 by mouth Luke s 1 MG tablet 16:50: daily. [facility] 20 [place] levothyroxi Yes 88ug QD Take [address] ne 2-11 mcg by [facility]ukes (SYNTHROID, 16:50: mouth Medic al LEVOTHROID) 20 daily . Cente r 88 MCG tablet hydroxychlo Yes Q.5D Take by [facility] roquine 2-11 mouth 2 [facility] (PLAQUENIL) 16:50: (two) Medic al 200 mg 20 times Center tablet daily. carvediloL Yes 12.5mg Take 12.[address] (COREG) 2-11 mg by Lukes 12.5 MG 16:50: mouth 2 Medical tablet 20 (two) Center times daily with breakfast and dinner. metFORMIN Yes 500mg Take [address] (GLUCOPHAGE 2-11 mg by [facility]ukes ) 500 MG 16:50: mouth 2 Medica l tablet 20 (two) Center times daily with breakfast and dinner. sodium Yes 2mg/kg Inject 2 [facility] chloride 2-11 mg/kg [facility] 0.9% (NS) 16:50: intravenou Me dical SolP 100 mL 20 sly once Cent er with every 8 golimumab weeks. 12.5 mg/mL Soln 2 mg/kg multivit,th Yes QD Take by [facility] er.w-iron,h 2-11 mouth [facility] ematinic 16:50: daily. Medical (THERAPEUTI 20 Center C FORMULA/HEM ATINICS ORAL) olmesartan Yes 40mg QD Take [address] (BENICAR) 2-11 by mouth Lukes 40 MG 16:50: daily. Medical tablet 20 [place] leflunomide Yes 10mg QD Take [address] (ARAVA) 10 2-11 by mouth Lukes MG tablet 16:50: daily. Medica l 20 [place] rosuvastati Yes 5mg QD Take [address] n (CRESTOR) 2-11 by mouth Luke s 5 MG tablet 16:50: daily. Medi eduar 20 [place] omeprazole Yes 20mg QD Take [address] (PriLOSEC) 2-11 by mouth [facility]ukes 20 MG 16:50: daily. Medical capsule 20 [place] cyanocobala Yes 100ug QD Take [address] min, 2-11 mcg by [facility]ukes vitamin 16:50: mouth Medical B-12, 100 20 daily. [place] MCG tablet ferrous Yes 325mg Take 325 [facility] sulfate 325 2-11 mg by [facility] (65 FE) MG 16:50: mouth Medica l tablet 20 daily with Center breakfast. spironolact 2020- No 25mg QD Take [address] one 11-26-08 by mouth Lukes (ALDACTONE) 11:57: 00:00 daily. Med ical 25 MG 49 :00 Center tablet estradiol 2020- No .5mg QD Take 0.[address] (ESTRACE) 11-2608 mg by [facility]ukes 0.5 MG 11:56: 00:00 mouth Medical tablet 09 :00 daily. Center hydrOXYchlo Yes QD Take by Met hodi roQUINE 1-[address] (PLAQUENIL) 12:21: daily. Hosp tyshawn 200 mg 38 l tablet rosuvastati 2019-10 Yes 5mg QD Take 5 mg M ethodi n (CRESTOR) 2-[address] 5 MG tablet 13:56: nightly. Ho spita 57 l golimumab 2019-10 Yes Infuse Method i (SIMPONI 2-[address] ARIA IV) 13:56: venous Hospita 57 catheter. l Every 8 weeks predniSONE 2019-10 Yes 5mg QD Take 5 mg Me thodi (DELTASONE) 2-[address] 5 mg tablet 13:56: daily. Hosp tyshawn 57 l olmesartan 2019-10 Yes 40mg QD Take 40 mg M ethodi (BENICAR) 2-[address] 40 MG 13:56: daily. Hospita tablet 57 l levothyroxi 2019-10 Yes 75ug QD Take 75 Met hodi ne 2-[address] (SYNTHROID, 13:56: mouth Hospi ta LEVOXYL) 75 57 daily. l mcg tablet metFORMIN 2019-10 Yes 500mg Q.5D Take 500 Met hodi (GLUCOPHAGE 2-[address] ) 500 mg 13:56: mouth 2 Hospit a tablet 57 (two) l times a day with meals. omeprazole 2019-10 Yes 20mg QD Take 20 mg M ethodi (PriLOSEC) 2-[address] 20 MG 13:56: daily. Hospita capsule 57 l glipiZIDE 2019-10 Yes 2.5mg QD Take 2.5 Met hodi (GLUCOTROL) 2-[address] 2.5 MG 24 13:56: mouth Hospita hr tablet 57 daily. l carvediloL 2019-10 Yes 12.5mg Q.5D Take 12.5 Methodi (COREG) 2-[address] 12.5 MG 13:56: mouth 2 Hospita tablet 57 (two) l times a day with meals. DULoxetine 2019-10 Yes 30mg QD Take 30 mg M ethodi (CYMBALTA) 2-[address] 30 MG 13:56: daily. Hospita capsule 57 l traMADoL 2019-10 Yes [id number] 50mg Q6H Take 50 mg Me thodi (ULTRAM) 50 2-[address] mg tablet 13:56: every 6 Hospi ta 57 (six) l hours as needed for moderate pain .acute pain. RESTASIS Yes 1[drp] Administer M ethodi 0.05 % 06-[address] ophthalmic 00:00: both eyes Ho spita emulsion 00 daily. l Vital Signs Vital Name Observation Time Observation Value Comments Source HEIGHT 2020-11-29 156.2 cm 11:27:00 WEIGHT 2020-11-29 60.555 kg 11:27:00 HEIGHT 2020-11-26 156.2 cm 12:20:00 WEIGHT 2020-11-26 66.225 kg 12:20:00 Systolic blood 2021-03-13 119 mm[Hg] University of pressure 17:00:00 [facility] Diastolic blood 2021-03-13 66 mm[Hg] [place] o f pressure 17:00:00 [facility] Heart rate 2021-03-13 89 /min [facility] 17:00:00 [facility] Body temperature 2021-03-13 36.11 [place] [facility] 17:00:00 [facility] Respiratory rate 2021-03-13 18 /min [facility] 17:00:00 [facility] Oxygen saturation 2021-03-13 99 /min [facility] Arterial blood 17:00:00 [facility] by Pulse oximetry [place] Body weight 2021-03-13 56.7 kg [place] of 09:57:00 [facility] BMI 2021-03-13 23.62 kg/m2 [facility] 09:57:00 [facility] Body height 2021-03-08 154.9 cm [facility] 20:15:00 [facility] Systolic blood 2021-03-06 120 mm[Hg] University of pressure 19:03:00 [facility] Diastolic blood 2021-03-06 72 mm[Hg] University o f pressure 19:03:00 [facility] Heart rate 2021-03-06 79 /min University of 19:03:00 [facility] Respiratory rate 2021-03-06 19 /min University of 19:03:00 [facility] Body height 2021-03-06 152.4 cm University of 19:03:00 [facility] Body weight 2021-03-06 57.471 kg University of 19:03:00 [facility] BMI 2021-03-06 24.74 kg/m2 University of 19:03:00 [facility] Oxygen saturation 2021-03-06 96 /min [place] of in Arterial blood 19:03:00 [facility] eduar by Pulse oximetry Branch Body height 2021-03-05 152.4 cm University of 20:14:00 [facility] Body weight 2021-03-05 57.749 kg University of 20:14:00 [facility] BMI 2021-03-05 24.86 kg/m2 University of 20:14:00 [facility] Systolic blood 2021-02-22 139 mm[Hg] University of pressure 16:00:00 [facility] Diastolic blood 2021-02-22 64 mm[Hg] University o f pressure 16:00:00 [facility] Heart rate 2021-02-22 77 /min University of 16:00:00 [facility] Body temperature 2021-02-22 35.83 [place] [facility] of 16:00:00 [facility] Respiratory rate 2021-02-22 18 /min University of 16:00:00 [facility] Oxygen saturation 2021-02-22 95 /min University of in Arterial blood 16:00:00 [facility] eduar by Pulse oximetry Branch Body weight 2021-02-22 60.963 kg University of 08:01:00 [facility] BMI 2021-02-22 25.39 kg/m2 University of 08:01:00 [facility] Body height 2021-02-21 154.9 cm University of 01:11:00 [facility] HEIGHT 2020-11-29 156.2 cm 11:27:00 WEIGHT 2020-11-29 [...] height 2021-06-21 148.5 cm MD Carey 14:40:52 Systolic blood 2020-11-29 162 mm[Hg] [facility] pressure 15:17:00 [facility] er Diastolic blood 2020-11-29 70 mm[Hg] [facility] pressure 15:17:00 [facility] er Heart rate 2020-11-29 62 /min [facility] 15:17:00 [facility] Body temperature 2020-11-[address] [facility] 15:17:00 [facility] Respiratory rate 2020-11-29 16 /min [facility] 15:17:00 [facility] Center Oxygen saturation 2020-11-29 95 /min [facility] Javed es in Arterial blood 15:17:00 [facility] nter by Pulse oximetry Body height 2020-11-[address] [facility] 11:27:00 [facility] Body weight 2020-11-[address] [facility] 11:27:00 [facility] BMI 2020-11-29 24.82 kg/m2 [facility] 11:27:00 [facility] Procedures Procedure Date / Time Performing Clinician Source Performed PATHOLOGY BIOPSY 2021-09-20 16:18:00 Ashley Adkins MD INTERPRETATION US UPPER EXTREMITY 2021 15:28:02 Yelena Montoya MD Todd son LIMITED LEFT PATHOLOGY BIOPSY 2021-07-04 14:13:00 Kinsey Benitez MD [place] rs INTERPRETATION PATHOLOGY BIOPSY 2021-06-21 15:57:00 Ashley Adkins MD [place] INTERPRETATION POCT GLUCOSE (AUTOMATED) 2021-03-13 17:02:00 Bradford Paul [facility] POCT GLUCOSE (AUTOMATED) 2021-03-13 13:32:00 Bradford Paul [facility] POCT GLUCOSE (AUTOMATED) 2021-03-13 01:28:00 Bradford Paul [facility] POCT GLUCOSE (AUTOMATED) 2021-03-12 20:56:00 Bradford Paul [facility] BASIC METABOLIC PANEL 2021-03-12 18:44:00 Bradford Paul [facility] (NA, K, CL, CO2, GLUCOSE, Medica l Branch BUN, CREATININE, CA) N-TERMINAL PRO-BNP 2021-03-12 18:44:00 Kera Ch [facility] POCT GLUCOSE (AUTOMATED) 2021-03-12 16:05:00 Bradford Paul [facility] POCT GLUCOSE (AUTOMATED) 2021-03-12 12:15:00 Bradford Paul [facility] POCT GLUCOSE (AUTOMATED) 2021-03-12 01:26:00 Bradford Paul [facility] POCT GLUCOSE (AUTOMATED) 2021-03-11 21:06:00 Bradford Paul [facility] POCT GLUCOSE (AUTOMATED) 2021-03-11 16:00:00 Bradford Paul vers[facility] of [facility] BASIC METABOLIC PANEL 2021-03-11 15:05:00 Jordan Will [facility] (NA, K, CL, CO2, GLUCOSE, Medica l Branch BUN, CREATININE, CA) POCT GLUCOSE (AUTOMATED) 2021-03-11 12:35:00 Bradford Paul [facility] POCT GLUCOSE (AUTOMATED) 2021-03-11 01:33:00 Bradford Paul [facility] POCT GLUCOSE (AUTOMATED) 2021-03-10 20:49:00 Bradford Paul [facility] POCT GLUCOSE (AUTOMATED) 2021-03-10 16:30:00 Bradford Paul [facility] POCT GLUCOSE (AUTOMATED) 2021-03-10 12:56:00 Bradford Paul [facility] MAGNESIUM 2021-03-10 10:12:00 Amy [facility] TROPONIN I 2021-03-10 10:12:00 [facility] [facility] BASIC METABOLIC PANEL 2021-03-10 10:12:00 Amy [facility] (NA, K, CL, CO2, GLUCOSE, Medica l Branch BUN, CREATININE, CA) N-TERMINAL PRO-BNP 2021-03-10 10:12:00 Amy [facility] HB ECG ROUTINE & RHYTHM 2021-03-10 10:08:12 Amy [facility] POCT GLUCOSE (AUTOMATED) 2021-03-10 01:53:00 Bradford Paul [facility] POCT GLUCOSE (AUTOMATED) 2021-03-09 21:41:00 Bradford Paul [facility] POCT GLUCOSE (AUTOMATED) 2021-03-09 16:59:00 Bradford Paul [facility] POCT GLUCOSE (AUTOMATED) 2021-03-09 13:45:00 Bradford Paul [facility] BASIC METABOLIC PANEL 2021-03-09 08:44:00 Bradford Paul [facility] (NA, K, CL, CO2, GLUCOSE, Medica l Branch BUN, CREATININE, CA) CBC WITH DIFF 2021-03-09 08:44:00 Beverly [facility] D-DIMER 2021-03-09 01:19:00 Jordan Will [facility] CLOSTRIDIUM DIFFICILE 2021-03-09 01:19:00 Prabhakar Childs [facility] FECAL PATHOGENS BY PCR 2021-03-09 01:19:00 Prabhakar Childs [facility] XR CHEST 1 VW 2021-03-09 00:05:00 Jordan Will [facility] URINALYSIS 2021-03-08 18:40:00 Mina Wu [facility] URINE CULTURE 2021-03-08 18:40:00 Mina Wu [facility] COVID-19 (ID NOW RAPID 2021-03-08 18:24:00 [facility] LAB ONLY COVID 2021-03-08 18:24:00 Mina Wu [facility] INTERPRETATION [facility] CT ABDOMEN PELVIS W 2021-03-08 17:34:31 Mina Wu [facility] CONTRAST [facility] CT CHEST PULMONARY 2021-03-08 17:34:31 Mina Wu [facility] ANGIOGRAM [facility] FREE T4 2021-03-08 17:01:00 Singer Ion [facility] HB ECG ROUTINE & RHYTHM 2021-03-08 16:30:28 Ion Garcia [facility] STRIP [facility] LIPASE 2021-03-08 16:22:00 Singer [facility] TROPONIN I 2021-03-08 16:22:00 Singer [facility] THYROID STIMULATING 2021-03-08 16:22:00 [facility] HORMONE [facility] COMP. METABOLIC PANEL 2021-03-08 16:22:00 [id number] CBC WITH DIFF 2021-03-08 16:22:00 Singer [facility] PROTHROMBIN TIME / INR 2021-03-08 16:22:00 Ion Garcia [facility] ACTIVATED PARTIAL 2021-03-08 16:22:00 Singer [facility] N-TERMINAL PRO-BNP 2021-03-08 16:22:00 Mina Wu [facility] HOSPITAL ADMISSION 2021-03-08 05:01:00 Doctor Unassigned, [facility] [place] [facility] CAROTID DUPLEX BILATERAL 2021-02-22 20:19:16 Kera Ch [facility] - BY VASCULAR LAB [facility] POCT GLUCOSE (AUTOMATED) 2021-02-22 16:00:00 Tyron Reyes [facility] POCT GLUCOSE (AUTOMATED) 2021-02-22 12:52:00 Tyron Reyes [facility] URIC ACID 2021-02-22 09:49:00 Tyron Reyes [facility] MAGNESIUM 2021-02-22 09:49:00 Amy ned [facility] COMP. METABOLIC PANEL 2021-02-22 09:49:00 Tyron Reyes [facility] ([id number]) [facility] CBC WITH DIFF 2021-02-22 09:49:00 Amy ned [facility] N-TERMINAL PRO-BNP 2021-02-22 09:49:00 Tyron Reyes [facility] POCT GLUCOSE (AUTOMATED) 2021-02-22 02:15:00 Tyron Reyes [facility] POCT GLUCOSE (AUTOMATED) 2021-02-21 21:16:00 Tyron Reyes [facility] POCT GLUCOSE (AUTOMATED) 2021-02-21 16:34:00 Tyron Reyes [facility] POCT GLUCOSE (AUTOMATED) 2021-02-21 13:03:00 Tyron Reyes [facility] OSMOLALITY URINE 2021-02-21 11:03:00 Tyron Reyes [facility] LEGIONELLA URINARY 2021-02-21 11:03:00 Tyron Reyes [facility] ANTIGEN TST [facility] URINE CULTURE 2021-02-21 11:03:00 Amy ned [facility] URIC ACID 2021-02-21 09:10:00 Tyron Reyes [facility] MAGNESIUM 2021-02-21 09:10:00 Amy ned [facility] OSMOLALITY, SERUM OR 2021-02-21 09:10:[address] [facility] PLASMA [facility] TROPONIN I 2021-02-21 09:10:00 Amy [facility] COMP. METABOLIC PANEL 2021-02-21 09:10:00 Tyron Reyes [facility] ([id number]) Medical [place] SEDIMENTATION RATE 2021-02-21 09:10:00 Amy [facility] CBC WITH DIFF 2021-02-21 09:10:00 Amy [facility] N-TERMINAL PRO-BNP 2021-02-21 09:10:00 Amy ned [facility] CT ABDOMEN PELVIS W 2021-02-21 09:06:17 Amy end [facility] CONTRAST [facility] XR SHOULDER 2+ VW RIGHT 2021-02-21 09:05:04 Amy ned [facility] CT HEAD WO CONTRAST 2021-02-21 09:04:43 Amy ned [facility] POCT GLUCOSE (AUTOMATED) 2021-02-21 07:42:00 Tyron Reyes [facility] VITAMIN B12, LEVEL 2021-02-21 05:53:00 Amy ned [facility] TROPONIN I 2021-02-21 05:53:00 Amy ned [facility] IRON PANEL 2021-02-21 05:53:00 Amy ned [facility] PROTHROMBIN TIME / INR 2021-02-21 05:53:00 Amy ned [facility] VITAMIN D, 25-OH 2021-02-21 05:53:00 Amy [facility] PROCALCITONIN 2021-02-21 05:53:00 Amy [facility] POCT GLUCOSE (AUTOMATED) 2021-02-21 05:52:00 Prabhakar Childs [facility] XR FOREARM 2 VW RIGHT 2021-02-20 22:57:20 Jordan Walsh [facility] XR HUMERUS 2 VW RIGHT 2021-02-20 22:57:20 Jordan Walsh [facility] HB ECG ROUTINE & RHYTHM 2021-02-20 22:38:40 Jordan Walsh [facility] URINALYSIS 2021-02-20 22:10:00 Jordan Walsh [facility] SODIUM, URINE RANDOM 2021-02-20 22:10:00 Tyron Reyes [facility] PROTEIN CREAT RATIO URINE 2021-02-20 22:10:00 [facility] (ID NOW RAPID 2021-02-20 22:10:00 Jordan Walsh [facility] TESTING) Medical Branch LAB ONLY COVID 2021-02-20 22:10:00 Jordan Walsh [facility] BLOOD CULTURE SCREEN 2021-02-20 21:10:00 Jordan Walsh [facility] LACTIC ACID WHOLE BLOOD 2021-02-20 21:10:00 Jordan Walsh [facility] BLOOD CULTURE SCREEN 2021-02-20 21:02:00 Jordan Walsh [facility] PHOSPHORUS 2021-02-20 21:02:00 Tyron Reyes [facility] CREATINE KINASE 2021-02-20 21:02:00 Tyron Reyes [facility] URIC ACID 2021-02-20 21:02:00 Tyron Reyes [facility] LIPASE 2021-02-20 21:02:00 Jordan Walsh [facility] MAGNESIUM 2021-02-20 21:02:00 Tyron Reyes [facility] FERRITIN SERUM 2021-02-20 21:02:00 Tyron Reyes [facility] TROPONIN I 2021-02-20 21:02:00 Jordan Walsh [facility] THYROID STIMULATING 2021-02-20 21:02:00 Tyron Reyes [facility] HORMONE Medical Branch COMP. METABOLIC PANEL 2021-02-20 21:02:00 Jordan Walsh [facility] ([id number]) Medical Branch LIPID PANEL ([id number])(TOTAL 2021-02-20 21:02:00 Tyron Reyes [facility] CHOLESTEROL, [facility] TRIGLYCERIDES, HDL) CBC WITH DIFF 2021-02-20 21:02:00 Jordan Waslh [facility] GLYCOSYLATED HEMOGLOBIN 2021-02-20 21:02:00 Tyron Reyes [facility] (A1C) [facility] N-TERMINAL PRO-BNP 2021-02-20 21:02:00 Jordan Walsh [facility] XR CHEST 1 VW 2021-02-20 20:58:38 Jordan Walsh [facility] EKG-12 LEAD 2021-02-20 20:52:14 Doctor Unassigned, [facility] Name Medical [place] ASSIGNMENT OF BENEFITS 2021-02-20 20:48:04 [facility] Name [facility] [place] NOTICE OF PRIVACY 2021-02-20 20:47:37 [facility] PRACTICES [place] Medical Branch CONSENT/REFUSAL FOR 2021-02-20 20:47:11 Doctor Joceline, [facility] DIAGNOSIS AND TREATMENT [place] Medical [place] REPORT OF PROCEDURE - 2020-11-29 14:12:20 Amor Muller [facility] ENDOSCOPY [facility] Center CYTOLOGY REQUEST 2020-11-29 14:08:[address] [facility] CYTOLOGY 2020-11-29 14:08:00 Amor Muller [facility] UPPER ENDOSCOPY,FNA 2020-11-29 13:50:00 Amor Muller [facility] W/ULTRASOUND Center POCT-GLUCOSE METER 2020-11-29 11:45:00 Amor Muller [facility] Plan of Care Planned Activity Planned Date Details Comments Source Future Scheduled 2021-11-27 COVID-19 VACCINE (1) Met [facility] Hospital Test 23:55:17 [code = COVID-19 VACCINE (1)] Future Scheduled 2021-11-27 SHINGLES VACCINES (#1) M [facility] Hospital Test 23:55:17 [code = SHINGLES VACCINES (#1)] Future Scheduled 2021-11-27 65+ PNEUMOCOCCAL Methodi Hospital Test 23:55:17 VACCINE (1 of 1 - PPSV23) [code = 65+ PNEUMOCOCCAL VACCINE (1 of 1 - PPSV23)] Future Scheduled 2021-11-27 INFLUENZA VACCINE Method ist Hospital Test 23:55:17 [code = INFLUENZA VACCINE] Future Scheduled 2021-06-19 INFLUENZA VACCINE (#1) [facility] Test 00:00:00 [code = INFLUENZA Medical Ce nter VACCINE (#1)] Future Scheduled 2021-06-19 INFLUENZA VACCINE (#1) [facility] Test 00:00:00 [code = INFLUENZA Medical Ce nter VACCINE (#1)] Future Scheduled 2020-10-[address] [facility] Test 00:00:00 (12+) [code = Medical Center DEPRESSION SCREENING (12+)] Future Scheduled 2020-10-19 FALLS RISK SCREENING [facility] Test 00:00:00 [code = FALLS RISK Medical C enter SCREENING] Future Scheduled 2020-10-[address] [facility] Test 00:00:00 (12+) [code = Medical Center DEPRESSION SCREENING (12+)] Future Scheduled 2020-10-19 FALLS RISK SCREENING [facility] Test 00:00:00 [code = FALLS RISK Medical C enter SCREENING] Future Scheduled 1998 PNEUMOCOCCAL 65+ YRS [facility] Test 00:00:00 (1 of 1 - Medical Center [id number] PCV13) [code = PNEUMOCOCCAL 65+ YRS (1 of 1 - [id number] PCV13)] Future Scheduled 1998 PNEUMOCOCCAL 65+ YRS [facility] Test 00:00:00 (1 of 1 - Medical Center [id number] PCV13) [code = PNEUMOCOCCAL 65+ YRS (1 of 1 - [id number] PCV13)] Future Scheduled 1983 SHINGLES VACCINES ([address] [facility] Test 00:00:00 of 2) [code = SHINGLES Medic al Center VACCINES (1 of 2)] Future Scheduled 1983 SHINGLES VACCINES ([address] [facility] Test 00:00:00 of 2) [code = SHINGLES Medic al Center VACCINES (1 of 2)] Future Scheduled 1952 DTAP/TDAP/TD VACCINES [facility] Test 00:00:00 (1 - Tdap) [code = Medical C enter DTAP/TDAP/TD VACCINES (1 - Tdap)] Future Scheduled 1952 DTAP/TDAP/TD VACCINES [facility] Test 00:00:00 (1 - Tdap) [code = Medical C enter DTAP/TDAP/TD VACCINES (1 - Tdap)] Future Scheduled 1945 COVID-19 VACCINE (1) [facility] Test 00:00:00 [code = COVID-[address] VACCINE (1)] Future Scheduled 1945 COVID-19 VACCINE (1) [facility] Test 00:00:00 [code = COVID-[address] VACCINE (1)] Future Scheduled 1938 COVID-19 Vaccination MD Carey Test 00:00:00 (1) [code = COVID-19 Vaccination (1)] Encounters Start End Encounter Admission Attending Care Care Encounter Source Date/Time Date/Time Type Type Clinicians Facility Department ID 2021-08-18 Emergency [facility] [id number] Univers 20:31:48 [facility] 2021-07-27 Outpatient RAIJMAN, [facility] Surgery [id number] [facility] 00:46:32 AMOR 2021-06-19 Marlene YATES MDA MDA [id number] 16:55:25 PROVIDER Dani bill 2022-03-14 2022-03-14 Outpatient Chris PUENTES [facility] [id number] Univers 10:20:00 10:20:00 TA [id number] [facility] 2022-03-14 2022-03-14 Outpatient Chris PUENTES [facility] [id number] Univers 10:20:00 10:20:00 TA [facility] 2021-09-20 2021-09-20 Outpatient JACE ADKINS MDA MDA [id number] 09:41:37 10:28:58 ASHLEY bill 2021-08-23 2021-08-23 Outpatient JACE BENITEZ MDA MDA [id number] 11:09:34 12:02:10 KINSEY bill 2021-07-24 2021-07-24 Outpatient JACE BENITEZ MDA MDA [id number] 09:57:59 11:35:29 KINSEY bill 2021-07-11 2021-07-11 Outpatient JACE BENITEZ MDA MDA [id number] 07:24:23 16:14:43 KINSEY bill 2021 2021 Outpatient JACE LASSITER MDA [id number] 09:43:10 09:43:10 Dani bill 2021-07-04 2021-07-04 Outpatient JACE BENITEZ MDA MDA [id number] 08:03:03 12:45:35 KINSEY bill 2021-06-21 2021-06-21 Outpatient JACE ADKINS MDA MDA [id number] 09:37:53 11:15:25 ASHLEY bill 2021-06-21 2021-06-21 Outpatient JACE ADKINS MDA MDA [id number] 09:31:19 09:31:25 ASHLEY bill 2021-06-11 2021-06-11 Travel 1.2.840.1 [id number] Methodi 00:00:00 00:00:[id number] 3.430.2.7 0.2.7.3.698 Ho spita .[id number] 084.8 l .8 2021-04-18 2021-04-18 Outpatient DIMA [facility] [id number] Univers 14:00:00 14:00:00 SENDIL [id number] [facility] 2021-04-18 2021-04-18 Outpatient R DIMA [facility] [id number] Univers 14:00:00 14:00:00 SENDIL [facility] 2021-03-142021-03-14 Transition Jaren Bullard [id number] Univers 00:00:00 00:00:00 of Care Tamika Zamudio [id number] [id number] [phone] [facility] 403 Branch 2021-03-08 2021-03-13 Emergency TonnyMina zuluaga [facility] 1.2. [id number] Univers 11:13:00 14:30:00 Bradford Paul [id number] ity [id number] [id number] [facility] 081 Branch 2021-03-12 2021-03-12 Outpatient DIMA [facility] [id number] Univers 08:30:00 08:30:00 [facility]IL [id number] [facility] 2021-03-12 2021-03-12 Outpatient R DIMA [facility] [id number] Univers 08:30:00 08:30:00 [facility] 2021-03-08 2021-03-08 Telephone Dima [facility] [id number] Univers 00:00:00 00:00:00 Sendil Kandi Marrfuo [id number] it[id number] [phone] [address] 2021-03-06 2021-03-06 Office Dima [facility] [id number] Univers 13:42:37 14:43:04 Visit Sendil Kandi Marrufo [id number] it[id number] [phone] [address] 2021-03-06 2021-03-06 Outpatient R DIMA [facility] [id number] Univers 14:00:00 14:00:00 SENDIL [id number] ity [facility] 2021-03-06 2021-03-06 Outpatient R DIMA [facility] [id number] Univers 14:00:00 14:00:00 SENDIL ity [facility] 2021-03-05 2021-03-05 [facility] [id number] Univers 15:09:13 16:42:02 Visit Fran ABREUY [id number] i ty of [facility] 4[place]2.[place] [id number] [facility] 144 Branch 2021-03-05 2021-03-05 [facility] [id number] Univers 15:15:00 15:15:00 FRAN ity [facility] 2021-02-25 2021-02-25 Transition RalfMary Lou ferreirafly 1.2.840.114 [id number] Univers 00:00:00 00:00:00 of Care Luis Felipe Zamudio [id number] ity of [place] [id number] [facility] [phone] [facility] 403 Branch 2021-02-20 2021-02-22 Hospital Jordan Walsh [facility] 1.2.840.11 [id number] Univers 14:56:00 17:10:00 Encounter Prabhakar Childs [id number] ity of [place] Reyes [id number] [facility] [phone] [facility] 081 Branch 2021-02-20 2021-02-20 Emergency X KENYETTA [facility] ERT [id number] Univers 14:56:00 14:56:00 JORDAN ity [facility] 2020-11-29 2020-11-29 Hospital JACE Muller [facility] [id number] 09:49:00 15:37:00 Encounter Amor Wiggins [facility] 2020-11-29 2020-11-29 Anesthesia Vandana Moran [facility] [id number] [facility] 13:55:00 14:17:00 Event Ronda Joseph [facility] 2020-11-29 2020-11-29 [facility] [id number] 12:00:00 13:00:00 Amor Wiggins [facility] 2020-11-29 2020-11-29 Travel [facility] [id number] [facility] 00:[facility] 00:00:00 [facility] 2020-11-26 2020-11-26 [facility] [id number] 11:40:00 23:59:00 [facility] 2020-11-26 2020-11-26 Outpatient EL SLE SLE [id number] [facility] 00:00:00 00:00:00 2020-11-26 2020-11-26 Travel [facility] [id number] [facility] 00:[facility] 00:00:00 [facility] Results Test Description Test Time Test Comments Results Result Comments Source Pathology Biopsy Interpretation 2021-09-23 19:25:36 Test Item Value Reference Range Interpretation Comme nts Addendum v9ehdTVrZKQrwOB9HwArBBGxq7qup1OslFBngSPfMMfdqGAwqcJmem66dTN7vY46QK4xCEHsAhU8CTQp ebS3Lxk4QPViYGLlbDVjE560c6qps4aainHkcXT2gXxlRFYrqnspPxB2XXqrTPTpxdajNLl5EXhoXULf nFG9XNEzaNYeH0GkRDIhTI7cjqp1NIQ1DDugHLTvSuF 1 (test 1ALAzxOGqBIUxhPtaWUxov599EQB7MbKqEAVmsmScgEkybD9wGzNgYAXIdXv8tILnBQRyQXNxwLglbeQ xWXCkCYPpgmC7qQVxhMYzs6UrvAhmjtOdwVY5HQVqREOnBWE2xMBwfnGoOAiffQwfZTMeLMvuJOWnfEI dBNVpHISwfkV0gYHryZRanII1NHxhSZMbi5tjQi7KJF code = krU3EDNG2ISMKxH4LZTINDUMWWAJ8DEMXoCR5oR0kYLDYLVaaFFY8LGLjUKOWWJ58JTVZWBG8XYBbSAD oeROcWTRRCZYWYFEvLBJUHPKnYBCGfA5KUGOCHE2mXNPLFVsWUTRLDKAgJUJFMMeSXGU9OALGERCHUXh wTQFYFJGipEH0KJBLGBEWzOJvIC5VJHNYKN6ITQdyjT 37) QSgbPUxZQKhQ85hc6JmmPIgkFueNMMqTjCwXO7hqPNbbE== Submitted q6arrWXeMAHncQI4MmTaEQRjs1shb6TzcYBbpDMuRIqmeEBijzPaen01jZP2wK25WU3qKDCsYsW0KELs gxE5Jfi3DLBaOTSudTHpI877z7qej4lqlcKziLH2oIhdYPBlvmrrYfR8KVruGFEgjddtUVk0LTwiTPUu mUL0KIFncORmN0IvYGOaEX7bogy7GLM9PXtpMKWvPjB Clinical 9CKZkoWOcUHSblOlgJGuwe090XRS1NlDrHCUgmuGvtOcbgD3rUqAbIKKPGF1qpXRhvEHwTsP9syOeyjV qjA0dPaEiKCLrv7Qpl6Pvw3cfssSaOYE3FgTbUTAzydsjBDB7 History (test code = 49044) Diagnosis n5ihpZXfKECdcAV5GwOlUWYqu1ttj1QzuBXusEXgATkpmLFczpCoaz68wOV4hG90RZ5cONPmAoH7HYOl hiE9Knq4RXNoSTRiePAuE580n0hxz8gjatTklYB8ZLXsRIFoD6OiFF7qBDKfxNJuQ38tiBNxIUG1SSKv AGQgsJBkJACjGTH7EPRivCEpN4avSNQoJK1qprbrHSl (test aLBxbJNJdvUM1ZHEdeWNrP0XpDKKkLXewGEUapow6DvOuDk1kpEFbyHnnZCtbKMPsJXOiIYjuENSnJdT sM7RaCRK5SIVnkU9fCVQlE2h4IYmkuIRhUMftj5KtnLIeCHnteGynkcPiBGoqlZ5hGDPihEZ5OBitsJS yXGxpNzIwXGxpbjcyMFxjZjAgSHlwZXJwbGFzdGljIG code = PgvHmjxBQrj5KpALMof9jxMRbrtZfjkaEhiwOeo2FaDFQyYOF6esUsOIE0ymL2lFK4tRriNXcwbAYkv8 LxjYOptGPzDJPrqCtutqFqAKStXKXrUQXpUWHzd9X9GSGqFEgdsr1sWIPnkrUNDNNyH95xySWnlP8fsW FyfQ== 34) Comment i3fgbUZcXFGsrXW3SpKeUMMxg4gfg4YjjIRmrYUiLLjmnBEogbVhzd59nXD1xM74BA8rIHEwRmY5ERZj ypO5Vhr2MMYuATSsnPScW845o6jnc7uyeuKcqEL7tSxrDXIbhqtiNmW8GAxoVJGexpgwUKb2PXgzGCLq xUU8AQMzkIAbX7OfEXOgRD4bncx8KIV8PPycKIKkHpI (test 8IABcnXYyKCMiaDfyKMiuu846GZH1DkFwFODiadOyeKmbcHqtiS3tGfVxPKRClkZkRWVzuRlpdlGvNKH ew1FoaRTeBIbjMiSyS74lv2lqSLJaLUSpcM24bAOonHkyszJiRCScu97rMnWieSF9rjLeTXIbc46gEOP xYSGjscHzyuAekDz1LFO9lXUxHPL4LyFtfLWanQ== code = 9835) Gross f0tyrMDbNUAdyGXORDjfBDpvdgNiKGZebXUiW1WiffpgDZmfYH5eMJ0lwFlzjQRynUXxYG4HNBNcExIp IHAibTVarsFeYqIrOKCaqBWtrSC2VJQqYS2fjsfxLQuwASboJMQrjpP0LBJlkXLvG8PjVQZqJI7lolrm YRX3QVtvtC0gduHRMcukQo5wxCProLppFqSvEjImPCW Descripti oKUBfXHXceMvaUZYuKKf2rN6UAnpmM19oe3V5Zrr5HAKvSLVyN2TeNT0yMTIjpUNpF37PDlecAET2YKD RXosiSPIeMA0As4kzAZVkgERxVWD3CHafuXOsHMJmKXFfASv1ZORlQIzduQFzSP2cjRvqOkeqxUwzy1A qiMXlRYkuCOPnKDOhPJguMFSaEK8NQmIhRHBdXMPnBE on (test QpDKm9VLe0BK1NCzOyJFQqZXs0MGExMAQkSOk7RZzxTS8NPFw4TRk1PLw7LUQ4LFX6PIStRHIvGcTdTG VcCHKiRWapZQiqwjCjOIHpSFEvNDmnDaqoKRuaN16zfAqftT4lKilohcJtUUT6UGTmedPMUxpqcMBvjl xlcGljTmVzdERvYzEgDQpcbHRycGFyXGxpbjBccmluM code = SPZWkdobFDnvKarASDmDSnrhiJyODVllQ3fSXCjiEP3YDNohAKniIAtEZ3beSZ5uWRdIIcub5lypzPxL Q5mKY20UA4eYAHnsnvoi8NdiMofuHwaszNgNWT1hWDdHES/n0QaULkrHPKfcDI3XNYiDNClREVcNPX1R Y3oq6cvnlSviRR8VJwlUC89EMxmQJ62MFazJM1qXHAq 282358409 SmQzTLtkLR6zvkxzrnKbNIEyRHnjq6EtYNUhlSEiN1ZvGNkwPP09tJKfyAljl6JgnOr2yEJaLWaxMDVr GxJwAMNjv4RaH9D5RTCkERium6ctTZEkSLczm1FeFCzWAMCPOJ9STU2mgEV3UUqPV2KXI2bWgTPgJJX4 kFC1ZTBVMuvjhPA4rDZ2lO27PAWkAETyeJCoRUxoD54 1) 6BLC5XZBaLBagv6joDBYsITlbi4KiGPiZERMNOB1PMF6mfMR5IYdDT9IEGDebWTKaBmgdgJKMWMK3YVr qaIqsoBd4q2ookOYkf5a4HWinUPA1gVfqbIDgdfwkiPRdxMiangUjCK8CXIYxdWYWZMG3DF1cYCn4ODq eVYAiZ6DtO7CvgqFmoKSsRPMkrsRjp8xtWRB7WYPkhE GtuPNfJfFgZectDRX1VPLvQAlxEN4WZQMlLBT8TZdciV39gHAsHC8LSPOcHJihUBAlVSIiypJ4MBMimE PtOUK2VA3xgOrxnENyvleqzjV2LH5JcH== Disclaime b1ieuPTnQHZqhFBkDnPlRABbCYZoa6oqOBYwjMPyXdMfYsIbKdYbStqetMSgSGArXwLbs2upc983rPZj c0mgUELnHgX4bNZfONDjqXStT272LNPrGVcdu2mof6EuRFJzgNAhb0D8CKMJlszbbKk1lLgrQ59zo7O0 KhqsZ6uyJEFrXQTkL0LgIM2wNDUlOdp6SXL3IKN9ADS r (test sNTRcS8EbIG2kRVEgwIGgCFk8t5pdlZqjTLWlDDS3h1mqCXnxzcJsKI9qhg6iaNz1s3tecoJwRQWzVBM lyCROYJVwV9LuqGuiYx6jyEw9tZvcFfjgLRI9Skb3SA4llh04mxs2fXdhUVZtsfhrTgC6VCssMATmzap hCCz4NHpjYRYcpKM9SKPryUFnZ9MqXHRoXN3zfle2ZD code = T8TFgeUKGcLyP5XRRjvOGyJHTveIddQTigt180SKX6RxAvQE0oJ2Pnj0W1eY3vpFQfOXSshHDtApRdAU Hbiz0koXHdDIgst5YlJJC2vyR4rZXwxQIvKDSvJJ30Syfwn5SyFdktTZZ9LIQkjpSpz0Zmb8uxSuAkdo UqV4kuE6XvZDGiHCPqVVLuWzUmvfQfo9Swu7YbbCJcy 9844) Rd7v1imTAJzHCExaScfr3qfNMI0CLIgA5C1bHLaj7uvPXlvUWVhcDT9ymN8GEUqkIWkJ2EijP7dYGCyX B6ccag6f0ceHES5WGggSFKcPjE6bfH6NJMlxYPoKJJwnBzpIJjlc782INZ0RgGkMTIhv2GsC4DhpTcdF 62mhPeaQ79mPMVsjOshlB9okGyzhJ6uWfTmRiOfHPbe gAdqgUCuxryqYJnalgI0JUdtfapnODMmHPeaE5evCtVhTXOedHnbASuiv5FsJURsXAGyVsuidrG4TQNO x57cYMYys2PmTIQqqK2slRIrOJmezyTgmAP5ZJphwqOtKwPjffMgPOUarQ1jRNYaIM3mIMChhmLlxc7w jnKhLKWeKPHtI2LkzxjgsGihpgWfECHxsy1hfqGhYDB 0QPKBWR2NJHUtMDLbx00jLNZdeJivvF9puCFxbaNuJCTda9TnyM9dsXAWZSBwT8pyGZ1nIEcds6PtpYW jlFBsrPD1WYEut4CvThNpyyFzuVRsaBEwX8RusTmhR7ceWSEvLIXzihKacYTct5IfGPBfnFO1qIDwZH4 UOnCXy44pYHBmQCFZhxSgWNIrbOvikJX5crQ1tT3xVz TQOpLkrWXohWVwDfirXVQcc467rp8aajB5FNFhMMWbprzwi9AxAULmNEPckY37SLPiMAEyus1roqwxgY FnubRbT9Fhooa3rD8gVHAqHMubPIWaATJsEzCiyZEcUuOlQmYqsLubxGhyXMmcKiHxOTSiMJaoD5slTw FcZnMyMlxwYXJ9 [facility] GLUCOSE (AUTOMATED)2021-03-13 17:08:53 Test Item Value Reference Range Interpretation Comments POCT GLU (test code = 4699160442) 125 mg/dL 70-110 H Lab Interpretation (test code = Abnormal 50030-1) [facility] GLUCOSE (AUTOMATED)2021-03-13 13:43:14 Test Item Value Reference Range Interpretation Comments POCT GLU (test code = 3681981260) 102 mg/dL 70-110 Lab Interpretation (test code = Normal 55749-4) [facility] GLUCOSE (AUTOMATED)2021-03-13 01:32:16 Test Item Value Reference Range Interpretation Comments POCT GLU (test code = 9531406263) 151 mg/dL 70-110 H Lab Interpretation (test code = Abnormal 88224-4) [facility] [id number] 22:10:14 Test Item Value Reference Range Interpretation Comments NT-proBNP (test code 1680 pg/mL See_Comment H [Autom ated = [id number]) message] The system which generated this result transmitted reference range : <=450. The reference range was not used to interpret this result as normal/abnormal . CARL (test code = CARL) Biotin has been reported to cause a negative bias, interpret results relative to patient's use of biotin. Lab Interpretation Abnormal (test code = 34874-0) [facility] GLUCOSE (AUTOMATED)2021-03-12 21:33:57 Test Item Value Reference Range Interpretation Comments POCT GLU (test code = 5632100417) 182 mg/dL 70-110 H Lab Interpretation (test code = Abnormal 69145-1) [facility] METABOLIC PANEL (NA, K, CL, CO2, GLUCOSE, BUN, CREATININE, CA)2021-03-12 19:36:16 Test Item Value Reference Range Interpretation Comments NA (test code = 133 mmol/L 135-145 L 9071395534) K (test code = 4.7 mmol/L 3.5-5.0 0640875332) CL (test code = 104 mmol/L 98-108 5017285765) CO2 TOTAL (test code = 20 mmol/L 23-31 L 2936693913) AGAP (test code = 2-16 8859420618) BUN (test code = 23 mg/dL 7-23 9399329728) GLUCOSE (test code = 210 mg/dL 70-110 H 6722795057) CREATININE (test code = 1.20 mg/dL 0.50-1.04 H 5016233949) CALCIUM (test code = 9.2 mg/dL 8.6-10.6 2281874757) eGFR (test code = mL/min/1.73m2 1993756893) CARL (test code = CARL) Association of [...] tests). Lab Interpretation Abnormal (test code = 20311-8) [facility] GLUCOSE (AUTOMATED)2021-03-12 16:27:07 Test Item Value Reference Range Interpretation Comments POCT GLU (test code = 4819650086) 136 mg/dL 70-110 H Lab Interpretation (test code = Abnormal 18587-3) [facility] GLUCOSE (AUTOMATED)2021-03-12 12:46:34 Test Item Value Reference Range Interpretation Comments POCT GLU (test code = 1448499160) 93 mg/dL 70-110 Lab Interpretation (test code = Normal 90186-2) [facility] GLUCOSE (AUTOMATED)2021-03-12 10:18:23 Test Item Value Reference Range Interpretation Comments POCT GLU (test code = 2264206025) 143 mg/dL 70-110 H Lab Interpretation (test code = Abnormal 46751-9) [facility] GLUCOSE (AUTOMATED)2021-03-12 10:18:17 Test Item Value Reference Range Interpretation Comments POCT GLU (test code = 1911141146) 94 mg/dL 70-110 Lab Interpretation (test code = Normal 82260-5) [facility] GLUCOSE (AUTOMATED)2021-03-12 01:30:35 Test Item Value Reference Range Interpretation Comments POCT GLU (test code = 2865218674) 167 mg/dL 70-110 H Lab Interpretation (test code = Abnormal 05397-6) [facility] 21:25:48 Test Item Value Reference Range Interpretation Comments POCT GLU (test code = 9644865008) 145 mg/dL 70-110 H Lab Interpretation (test code = Abnormal 98047-8) [facility] METABOLIC PANEL (NA, K, CL, CO2, GLUCOSE, BUN, CREATININE, CA)2021-03-11 16:22:13 Test Item Value Reference Range Interpretation Comments NA (test code = 134 mmol/L 135-145 L 4750839231) K (test code = 3.3 mmol/L 3.5-5.0 L 7241261567) CL (test code = 103 mmol/L 98-108 4657621104) CO2 TOTAL (test code = 24 mmol/L 23-31 0555193760) AGAP (test code = 2-16 6645901377) BUN (test code = 25 mg/dL 7-23 H 5600840650) GLUCOSE (test code = 144 mg/dL 70-110 H 1510464513) CREATININE (test code = 1.18 mg/dL 0.50-1.04 H 9724704024) CALCIUM (test code = 8.9 mg/dL 8.6-10.6 2525015502) eGFR (test code = mL/min/1.73m2 2300630597) CARL (test code = CARL) Association of [...] tests). Lab Interpretation Abnormal (test code = 30658-9) [facility] [id number] 16:00:45COVID DMT InterpretationInterpretation/Recommendations: Molecular NAAT Tests for [...] COVID-19 testing the patient has had at [facility], including molecular NAAT testing (more commonly known as PCR testing and Rapid ID Now testing) and antibody testing. It does not take into account any testing that a patient has had outside of the [facility] medical record. [facility] LABORATORY SERVICESCOVID Resu [id number]-InW-9 Rapid ID NOW (no units) ? ? Date ? Value ? 03/08/2021 ? Not Detected ? ? ? 02/20/2021 ? Not Detected ? [facility] ([facility]OMATED)2021-03-11 01:41:12 Test Item Value Reference Range Interpretation Comments POCT GLU (test code = 7420764721) 150 mg/dL 70-110 H Lab Interpretation (test code = Abnormal 03099-4) [facility] GLUCOSE (AUTOMATED)2021-03-10 20:54:33 Test Item Value Reference Range Interpretation Comments POCT GLU (test code = 0898112405) 152 mg/dL 70-110 H Lab Interpretation (test code = Abnormal 87570-7) [facility] GLUCOSE (AUTOMATED)2021-03-10 17:21:37 Test Item Value Reference Range Interpretation Comments POCT GLU (test code = 3759887912) 135 mg/dL 70-110 H Lab Interpretation (test code = Abnormal 97455-9) [facility] PATH[facility]ENS BY [id number] 14:47:37 Test Item Value Reference Range Interpretation Comments Campylobacter (jejuni, Negative Negative, coli and upsaliensis) Indeterminate, (test code = 20993-2) See comment Plesiomonas shigelloides Negative Negative, (test code = 14179-0) Indeterminate, See comment Salmonella (test code = Negative Negative, 22621-6) Indeterminate, See comment Yersinia enterocolitica Negative Negative, (test code = 27061-4) Indeterminate, See comment Vibrio (test code = Negative Negative, 74154-1) Indeterminate, See comment Vibrio cholerae (test Negative Negative, code = 40265-6) Indeterminate, See comment Enteroaggregative E. coli Negative Negative, (EAEC) (test code = Indeterminate, 51977-9) See comment Enteropathogenic E. coli Negative Negative, N/A, (EPEC) (test code = Indeterminate, 03864-5) See comment Enterotoxigenic E. coli Negative Negative, (ETEC) (test code = Indeterminate, 53703-1) See comment Shiga toxin-Producing E. Negative Negative, coli (STEC) (test code = Indeterminate, 44306-2) See comment Shigella/Enteroinvasive Negative Negative, E. coli (EIEC) (test code Indeterminate, = 77660-5) See comment Cryptosporidium (test Negative Negative, code = 85279-8) Indeterminate, See comment Cyclospora cayetanensis Negative Negative, (test code = 13637-7) Indeterminate, See comment Entamoeba histolytica Negative Negative, (test code = 15589-8) Indeterminate, See comment Giardia lamblia (test Negative Negative, code = 97208-3) Indeterminate, See comment Adenovirus F 40/41 (test Negative Negative, code = 36170-6) Indeterminate, See comment Astrovirus (test code = Negative Negative, 59525-1) Indeterminate, See comment Norovirus GI/GII (test Negative Negative, code = 33501-8) Indeterminate, See comment Rotavirus A (test code = Negative Negative, 06581-1) Indeterminate, See comment Sapovirus (test code = Negative Negative, 26123-6) Indeterminate, See comment CARL (test code = CARL) Negative:A negative result does not rule-out infection. ?This assay does not test for all potential infectious agents of diarrheal disease. Positive:A positive test result does not necessarily indicate the presence of viable organism. Lab Interpretation (test Normal code = 16543-2) [facility] [id number] 13:28:07 Test Item Value Reference Range Interpretation Comments URINE CULTURE (test No aerobic growth (< code = 630-4) 1000 CFU/mL) [facility]2021-03-10 13:02:24 Test Item Value Reference Range Interpretation Comments POCT GLU (test code = 2236990993) 91 mg/dL 70-110 Lab Interpretation (test code = Normal 27931-6) [facility] HospitalTROPONIN [id number] 11:08:20 Test Item Value Reference Range Interpretation Comments TROPONIN I (test <0.012 See_Comment [Automated code = 7326753811) message] The system which generated this result [...] ? Lab Interpretation Normal (test code = 78270-5) [facility] Hospital[facility]MINAL [id number] 11:05:18 Test Item Value Reference Range Interpretation Comments NT-proBNP (test code 1740 pg/mL See_Comment H [Autom ated = 6858758075) message] The system which generated this result transmitted reference range : <=450. The reference range was not used to interpret this result as normal/abnormal . CARL (test code = CARL) Biotin has been reported to cause a negative bias, interpret results relative to patient's use of biotin. Lab Interpretation Abnormal (test code = 72948-7) [facility] METABOLIC PANEL (NA, K, CL, CO2, GLUCOSE, BUN, CREATININE, CA)2021-03-10 10:56:38 Test Item Value Reference Range Interpretation Comments NA (test code = 133 mmol/L 135-145 L 5576970598) K (test code = 4.5 mmol/L 3.5-5.0 2848859571) CL (test code = 106 mmol/L 98-108 9913598650) CO2 TOTAL (test code = 23 mmol/L 23-31 8041189989) AGAP (test code = 2-16 7457643352) BUN (test code = 27 mg/dL 7-23 H 5442525048) GLUCOSE (test code = 112 mg/dL 70-110 H 5054695010) CREATININE (test code = 1.11 mg/dL 0.50-1.04 H 5464399133) CALCIUM (test code = 8.5 mg/dL 8.6-10.6 L 4223876654) eGFR (test code = mL/min/1.73m2 0279335844) CARL (test code = CARL) Association of [...] tests). Lab Interpretation Abnormal (test code = 65359-3) [facility]UM2021-[facility]-23 10:56:38 Test Item Value Reference Range Interpretation Comments MAGNESIUM (test code = 7961993653) 2.0 mg/dL 1.7-2.4 Lab Interpretation (test code = Normal 43348-2) [facility] GLUCOSE (AUTOMATED)2021-03-10 01:56:26 Test Item Value Reference Range Interpretation Comments POCT GLU (test code = 6330318289) 229 mg/dL 70-110 H Lab Interpretation (test code = Abnormal 66107-7) [facility] GLUCOSE (AUTOMATED)2021-03-09 22:09:58 Test Item Value Reference Range Interpretation Comments POCT GLU (test code = 7659644087) 141 mg/dL 70-110 H Lab Interpretation (test code = Abnormal 56823-0) [facility] GLUCOSE (AUTOMATED)2021-03-09 18:37:51 Test Item Value Reference Range Interpretation Comments POCT GLU (test code = 9313428151) 229 mg/dL 70-110 H Lab Interpretation (test code = Abnormal 54933-6) [facility] GLUCOSE (AUTOMATED)2021-03-09 13:56:35 Test Item Value Reference Range Interpretation Comments POCT GLU (test code = 2701530924) 181 mg/dL 70-110 H Lab Interpretation (test code = Abnormal 93749-6) [facility] Metabolic Panel (NA, K, CL, CO2, GLUCOSE, BUN, CREATININE, CA)2021-03-09 10:31:38 Test Item Value Reference Range Interpretation Comments NA (test code = 133 mmol/L 135-145 L 4984438330) K (test code = 3.9 mmol/L 3.5-5.0 3882150367) CL (test code = 104 mmol/L 98-108 6605484390) CO2 TOTAL (test code = 20 mmol/L 23-31 L 8100081716) AGAP (test code = 2-16 5953486035) BUN (test code = 24 mg/dL 7-23 H 7178750662) GLUCOSE (test code = 178 mg/dL 70-110 H 8588809513) CREATININE (test code = 1.14 mg/dL 0.50-1.04 H 9555291091) CALCIUM (test code = 9.1 mg/dL 8.6-10.6 0102342968) eGFR (test code = mL/min/1.73m2 0987116008) CARL (test code = CARL) Association of [...] tests). Lab Interpretation Abnormal (test code = 11900-0) [facility] with Aykvjuflvjeg1884-83-76 09:24:40 Test Item Value Reference Range Interpretation Comments WBC (test code = See_Comment [Automated 9690-2) message] The sy stem which generated this [...] (test code = 50.2 fL 39.0-49.9 H 76348-2) RDW-CV (test code = 14.9 % 12.0-15.5 788-0) PLT (test code = See_Comment [Automated 777-3) message] The sy stem which generated this result transmitted reference range : 166 - 358 10*3/ ?L. The reference r cheyanne was not used to interpret this result as normal/abnormal . MPV (test code = 10.1 fL 9.5-12.9 60441-4) NRBC/100 WBC (test See_Comment [Automat ed code = 3357536719) message] The system which generated this result transmitted reference range : 0.0 - 10.0 /100 WBCs. The refer ence range was not u sed to interpret th is result as normal/abnormal . NRBC x10^3 (test code <0.01 See_Comment [Auto mated = 1021695958) message] The s ystem which generated this result transmitted reference range : 10*3/?L. The reference range was not used to interpret this result as normal/abnormal . GRAN MAT (NEUT) % 66.3 % (test code = 770-8) IMM GRAN % (test code 0.40 % = 8414209009) LYMPH % (test code = 28.5 % 736-9) MONO % (test code = 4.6 % 5905-5) EOS % (test code = 0.0 % 713-8) BASO % (test code = 0.2 % 706-2) GRAN MAT x10^3(ANC) 3.61 10*3/uL 1.88-7.09 (test code = 3089694881) IMM GRAN x10^3 (test <0.03 0.00-0.06 code = 8599123291) LYMPH x10^3 (test code 1.55 10*3/uL 1.32-3.29 = 731-0) MONO x10^3 (test code 0.25 10*3/uL 0.33-0.92 L = 742-7) EOS x10^3 (test code = <0.03 0.03-0.39 L 711-2) BASO x10^3 (test code <0.03 0.01-0.07 = 704-7) Lab Interpretation Abnormal (test code = 83925-9) [facility] HospitalCLOSTRIDIUM DIFFICILE [id number] 07:37:08 Test Item Value Reference Range Interpretation Comments Clostridioides (Clostridium) Positive Negative A difficile (test code = 18674-9) Lab Interpretation (test code = Abnormal 64169-9) [facility] 1 [id number] 02:33:53No active pulmonary disease. RL: 5611 END OF REPORT Ordering Physician: JORDAN WILL Clinical Indication: short of breath Additional Clinical Information: Technical Quality: Good Comparison: None Technique: Portable chest obtained at 2130 hours Findings: There is shallow inspiration. No infiltrate or effusion. Theheart size is normal.[facility], Radiant Results Inft User - 03/08/2021 9:34 PM CDT Ordering Physician: JORDAN WILLClinical Indication: short of breath Additional Clinical Information:Technical Quality: GoodComparison: NoneTechnique: Portable chest obtained at 2130 hoursFindings: There is shallow inspiration. No infiltrate or effusion. Theheart size is normal.IMPRESSIONNo active pulmonary disease.RL: 5611END OF REPORT [facility] HospitalD-[id number] 02:08:51 Test Item Value Reference Interpretation Comments Range D-DIMER (test code = See_Comment H [Autom ated 3978157489) message] The system which generated this result [...] diagnosis. Lab Interpretation Abnormal (test code = 52170-0) [facility] GoaxljIFNFKYARLE8945-28-98 19:36:24 Test Item Value Reference Range Interpretation Comments APPEARANCE (test code = Clear Clear 7829202123) COLOR (test code = Yellow Yellow 4809529791) PH (test code = 4.8-8.0 8426168669) SP GRAVITY (test code = 1.003-1.030 4321684380) GLU U QUAL (test code = Normal Normal 2923226440) BLOOD (test code = Negative Negative 7394291643) KETONES (test code = 5 mg/dL Negative A 9378738447) PROTEIN (test code = Negative Negative 2887-8) UROBILIN (test code = Normal Normal 8818027336) BILIRUBIN (test code = Negative Negative 5508433914) NITRITE (test code = Negative Negative 6510526626) LEUK NATHAN (test code = Negative Negative 7465304199) RBC/HPF (test code = <1 See_Comment [Autom ated message] 0340042180) The system [employer] generated this result transmitted ref erence range: 0 - 3 HP F. The reference range was not used to int erpret this result as normal/abnormal . WBC/HPF (test code = <1 See_Comment [Autom ated message] 4196473645) The system [employer] generated this result transmitted ref erence range: 0 - 5 HP F. The reference range was not used to int erpret this result as normal/abnormal . BACTERIA (test code = Negative Negative 2169012086) Lab Interpretation (test Abnormal code = 31486-5) [facility]COVID[facility] (ID NOW RAPID TESTING)2021-03-08 19:25:38 Test Item Value Reference Range Interpretation Comments SARS-CoV-2 Rapid ID NOW Not Detected Not Detected (test code = 98597-3) CARL (test code = CARL) ID NOW COVID-19 Assay is an isothermal nucleic acid amplification test intended for the qualitative detection of nucleic acid from SARS-CoV-2 viral RNA in nasopharyngeal (BUNG DRIVER) specimens. It is used under Emergency Use [...] indicated. Lab Interpretation Normal (test code = 84171-6) [facility] [id number] 18:26:20 Test Item Value Reference Range Interpretation Comments FREE T4 (test code = See_Comment H [Autom ated message] 1149213423) The system [employer] generated this result transmitted ref erence range: 0.78 - 2 .20 ng/dL:. The ref erence range was not u sed to interpret this result as normal/abnor mal. Lab Interpretation (test Abnormal code = 76475-1) [facility] HospitalCT ABDOMEN PELVIS W [id number] 18:17:23 1. ?No acute intra-abdominal abnormality. 2. ?Colonic diverticulosis. 3. Unchanged pancreatic cystic lesions which may represent IPMN or othercystic pancreatic tumor/lesions. If prior evaluation wasnot performed,recommend follow- up with MRI pancreas. Preliminary Report Dictated by Resident: Mark Russell I, Skylar Rowley MD., have reviewed this study and agree [...] have reviewed this study and agree withtheabove report.[facility] CHEST PULMONARY [id number] 18:05:18 No pulmonary emboli. Colonic diverticulosis and [...] pulmonary emboli.Colonic diverticulosis and a small hiatal hernia.[facility] HospitalTHYROID STIMULATING [id number] 17:33:13 Test Item Value Reference Range Interpretation Comments TSH (test code = See_Comment [Automated message] 4440327665) The system [employer] generated this result transmitted ref erence range: 0.45 - 4 .70 mIU/L. The refe rence range was not u sed to interpret this result as normal/abnor mal. Lab Interpretation (test Normal code = 53642-2) [facility] HospitalTROPONIN [id number] 17:14:54 Test Item Value Reference Range Interpretation Comments TROPONIN I (test <0.012 See_Comment [Automated code = 3868534597) message] The system which generated this result [...] ? Lab Interpretation Normal (test code = 89083-4) [facility] HospitalN-TERMINAL [id number] 17:11:55 Test Item Value Reference Range Interpretation Comments NT-proBNP (test code 861 pg/mL See_Comment H [Autom ated = 9026439796) message] The system which generated this result transmitted reference range : <=450. The reference range was not used to interpret this result as normal/abnormal . CARL (test code = CARL) Biotin has been reported to cause a negative bias, interpret results relative to patient's use of biotin. Lab Interpretation Abnormal (test code = 65871-2) [facility]. METABOLIC PANEL (68649)2021-03-08 17:02:50 Test Item Value Reference Range Interpretation Comments NA (test code = 136 mmol/L 135-145 5510182353) K (test code = 3.2 mmol/L 3.5-5.0 L 2717659410) CL (test code = 102 mmol/L 98-108 3844907269) CO2 TOTAL (test code = 24 mmol/L 23-31 1042671283) AGAP (test code = 2-16 5386820122) BUN (test code = 18 mg/dL 7-23 1678375410) GLUCOSE (test code = 80 mg/dL 70-110 2755943153) CREATININE (test code = 1.12 mg/dL 0.50-1.04 H 2135034374) TOTAL BILI (test code = 0.6 mg/dL 0.1-1.0 1884534058) CALCIUM (test code = 8.9 mg/dL 8.6-10.6 2506357804) T PROTEIN (test code = 5.8 g/dL 6.3-8.2 L 1694150188) ALBUMIN (test code = 3.3 g/dL 3.5-5.0 L 4639423174) ALK PHOS (test code = 83 U/L 34-122 6587360809) ALTv (test code = 14 U/L 5-35 1742-6) AST(SGOT) (test code = 27 U/L 13-40 4645496335) eGFR (test code = mL/min/1.73m2 4589607463) CARL (test code = CARL) Association of [...] tests). Lab Interpretation Abnormal (test code = 97277-6) [facility] HospitalLIPASE, [id number] 17:02:29 Test Item Value Reference Range Interpretation Comments LIPASE (test code = 9723488962) 189 U/L 0-220 Lab Interpretation (test code = Normal 63559-9) [facility] HospitalCB WITH [id number] 17:00:16 Test Item Value Reference Range Interpretation Comments WBC (test code = See_Comment [Automated 1690-2) message] The sy stem which generated this result transmitted reference range : 4.30 - 11.10 10*3/?L. The reference range was not used to interpret this result as normal/abnormal . RBC (test code = See_Comment L [Automated 949-8) message] The sy stem which generated this [...] (test code = 50.5 fL 39.0-49.9 H 02677-4) RDW-CV (test code = 15.0 % 12.0-15.5 788-0) PLT (test code = See_Comment H [Automated 777-3) message] The sy stem which generated this result transmitted reference range : 166 - 358 10*3/ ?L. The reference r cheyanne was not used to interpret this result as normal/abnormal . MPV (test code = 9.7 fL 9.5-12.9 01775-8) NRBC/100 WBC (test See_Comment [Automat ed code = 5003448978) message] The system which generated this result transmitted reference range : 0.0 - 10.0 /100 WBCs. The refer ence range was not u sed to interpret th is result as normal/abnormal . NRBC x10^3 (test code <0.01 See_Comment [Auto mated = 6247223687) message] The s ystem which generated this result transmitted reference range : 10*3/?L. The reference range was not used to interpret this result as normal/abnormal . GRAN MAT (NEUT) % 24.4 % (test code = 770-8) IMM GRAN % (test code 0.30 % = 2646157427) LYMPH % (test code = 57.6 % 736-9) MONO % (test code = 14.8 % 5905-5) EOS % (test code = 2.0 % 713-8) BASO % (test code = 0.9 % 706-2) GRAN MAT x10^3(ANC) 2.31 10*3/uL 1.88-7.09 (test code = 4541851536) IMM GRAN x10^3 (test 0.03 10*3/uL 0.00-0.06 code = 7650285565) LYMPH x10^3 (test code 5.46 10*3/uL 1.32-3.29 H = 731-0) MONO x10^3 (test code 1.40 10*3/uL 0.33-0.92 H = 742-7) EOS x10^3 (test code = 0.19 10*3/uL 0.03-0.39 711-2) BASO x10^3 (test code 0.09 10*3/uL 0.01-0.07 H = 704-7) Lab Interpretation Abnormal (test code = 29758-2) [facility] HospitalaPTT2021-[facility] 17:00:11 Test Item Value Reference Range Interpretation Comments APTT Patient (test See_Comment [Automat ed code = 3173-2) message] The system which generated this result transmitted reference range : 23 - 38 Seconds . The reference range was not used to interpr et this result as normal/abnormal . CARL (test code = CARL) The [facility] patient population mean normal value for aPTT is 30 seconds. Lab Interpretation Normal (test code = 67974-9) [facility] HospitalPROTHROMBIN TIME / [id number] 16:58:08 Test Item Value Reference Range Interpretation [...] tions. Lab Interpretation (test Normal code = 52222-7) [facility]AUT[facility]ATED)2021-02-22 17:14:54 Test Item Value Reference Range Interpretation Comments POCT GLU (test code = 2174454119) 228 mg/dL 70-110 H Lab Interpretation (test code = Abnormal 08963-6) [facility] COVID [id number] 15:07:04COVID DMT InterpretationInterpretation/Recommendations: Molecular NAAT Tests for [...] COVID-19 testing the patient has had at [facility], including molecular NAAT testing (more commonly known as PCR testing and Rapid ID Now testing) and antibody testing. It does not take into accountany testing that a patient has had outside of the [facility] medical record. [facility] LABORATORY SERVICESCOVID IahvjxhLWSX-DuZ-6 Rapid ID NOW (no units) ? ? Date ? Value ? 02/20/2021 ? Not Detected ? [facility] LABORATORY SERVICES [facility]2021-02-22 13:41:36 Test Item Value Reference Range Interpretation Comments POCT GLU (test code = 2880899938) 242 mg/dL 70-110 H Lab Interpretation (test code = Abnormal 98421-9) [facility] HospitalURINE [id number] 12:26:08 Test Item Value Reference Range Interpretation Comments URINE CULTURE (test No aerobic growth (< code = 630-4) 1000 CFU/mL) [facility] HospitalN-TERMINAL [id number] 10:40:25 Test Item Value Reference Range Interpretation Comments NT-proBNP (test code 1440 pg/mL See_Comment H [Autom ated = 0624588322) message] The system which generated this result transmitted reference range : <=450. The reference range was not used to interpret this result as normal/abnormal . CARL (test code = CARL) Biotin has been reported to cause a negative bias, interpret results relative to patient's use of biotin. Lab Interpretation Abnormal (test code = 04541-8) [facility] HospitalCOMP. METABOLIC PANEL (34030)2021-02-22 10:34:04 Test Item Value Reference Range Interpretation Comments NA (test code = 132 mmol/L 135-145 L 8244564376) K (test code = 4.7 mmol/L 3.5-5.0 2290061725) CL (test code = 105 mmol/L 98-108 7139745188) CO2 TOTAL (test code = 20 mmol/L 23-31 L 9605496873) AGAP (test code = 2-16 2884276711) BUN (test code = 22 mg/dL 7-23 9103026498) GLUCOSE (test code = 212 mg/dL 70-110 H 5810946664) CREATININE (test code = 1.13 mg/dL 0.50-1.04 H 9712262168) TOTAL BILI (test code = 0.2 mg/dL 0.1-1.5 6621358727) CALCIUM (test code = 7.8 mg/dL 8.6-10.6 L 7394498847) T PROTEIN (test code = 5.1 g/dL 6.3-8.2 L 1845006742) ALBUMIN (test code = 2.8 g/dL 3.5-5.0 L 9071958328) ALK PHOS (test code = 38 U/L 34-122 6837526348) ALTv (test code = 13 U/L 5-35 1742-6) AST(SGOT) (test code = 21 U/L 13-40 9626000384) eGFR (test code = mL/min/1.73m2 9202584570) CARL (test code = CARL) Association of [...] tests). Lab Interpretation Abnormal (test code = 46305-7) [facility] HospitalMAGNESIUM2021-05-07 10:34:04 Test Item Value Reference Range Interpretation Comments MAGNESIUM (test code = 1278420802) 1.9 mg/dL 1.7-2.4 Lab Interpretation (test code = Normal 21707-7) [facility] [id number] 10:33:44 Test Item Value Reference Range Interpretation Comments URIC ACID (test code = 8101552706) 3.6 mg/dL 2.9-6.0 Lab Interpretation (test code = Normal 34885-3) [facility] WITH [id number] 10:04:39 Test Item Value Reference Range Interpretation [...] RDW-SD (test code = 49.0 fL 39.0-49.9 26012-5) RDW-CV (test code = 14.8 % 12.0-15.5 788-0) PLT (test code = See_Comment [Automated 777-3) message] The sy stem which generated this result transmitted reference range : 166 - 358 10*3/ ?L. The reference r cheyanne was not used to interpret this result as normal/abnormal . MPV (test code = 9.8 fL 9.5-12.9 49166-3) NRBC/100 WBC (test See_Comment [Automat ed code = 3611343553) message] The system which generated this result transmitted reference range : 0.0 - 10.0 /100 WBCs. The refer ence range was not u sed to interpret th is result as normal/abnormal . NRBC x10^3 (test code <0.01 See_Comment [Auto mated = 6767779007) message] The s ystem which generated this result transmitted reference range : 10*3/?L. The reference range was not used to interpret this result as normal/abnormal . GRAN MAT (NEUT) % 82.0 % (test code = 770-8) IMM GRAN % (test code 0.80 % = 3215859629) LYMPH % (test code = 10.2 % 736-9) MONO % (test code = 6.8 % 5905-5) EOS % (test code = 0.0 % 713-8) BASO % (test code = 0.2 % 706-2) GRAN MAT x10^3(ANC) 8.25 10*3/uL 1.88-7.09 H (test code = 1847839964) IMM GRAN x10^3 (test 0.08 10*3/uL 0.00-0.06 H code = 6136867665) LYMPH x10^3 (test code 1.03 10*3/uL 1.32-3.29 L = 731-0) MONO x10^3 (test code 0.68 10*3/uL 0.33-0.92 = 742-7) EOS x10^3 (test code = <0.03 0.03-0.39 L 711-2) BASO x10^3 (test code <0.03 0.01-0.07 = 704-7) Lab Interpretation Abnormal (test code = 43277-7) [facility] GLUCOSE (AUTOMATED)2021-02-22 02:20:17 Test Item Value Reference Range Interpretation Comments POCT GLU (test code = 0441113591) 318 mg/dL 70-110 H Lab Interpretation (test code = Abnormal 82676-6) [facility] B12, [id number] 21:50:20 Test Item Value Reference Range Interpretation Comments VIT B12 (test code = 434 pg/mL 240-930 5924566250) CARL (test code = CARL) Biotin has been reported to cause a positive bias, interpret results relative to patient's use of biotin. Lab Interpretation (test Normal code = 47297-1) [facility] GLUCOSE (AUTOMATED)2021-02-21 21:19:53 Test Item Value Reference Range Interpretation Comments POCT GLU (test code = 2881720430) 335 mg/dL 70-110 H Lab Interpretation (test code = Abnormal 30206-4) [facility] HospitalLEGIONELLA URINARY ANTIGEN [id number] 19:47:22 Test Item Value Reference Range Interpretation Comments Legionella Urinary Negative Negative Antigen (test code = 6742357004) CARL (test code = CARL) Negative for [...] test. Lab Interpretation (test Normal code = 16921-2) [facility] HospitalPROCALCITONIN2021-05-06 16:59:40 Test Item Value Reference Range Interpretation Comments Procalcitonin (test 0.08 ng/mL <0.07 H code = 7469705170) CARL (test code = CARL) INTERPRETATION OF [...] lung abscess/empyema. For further information please refer to:[email or web address] Lab Interpretation Abnormal (test code = 33366-5) [facility]2021-02-21 16:58:53 Test Item Value Reference Range Interpretation Comments POCT GLU (test code = 9203074897) 353 mg/dL 70-110 H Lab Interpretation (test code = Abnormal 10107-4) [facility] HospitalVITAMIN D, [id number] 16:35:33 Test Item Value Reference Range Interpretation Comments VIT D 25OH (test code = 27 ng/mL 25-80 42851-6) CARL (test code = CARL) Deficiency: <20 ng/mLInsufficiency : 20-24 ng/mLOptimal: 25-80 ng/mL Lab Interpretation (test Normal code = 20770-8) [facility] HospitalOSMOLALITY [id number] 16:00:43 Test Item Value Reference Range Interpretation Comments OSMO U (test code = See_Comment [Automa roxanna message] 4280233377) The system Micropelt generated this result transmitted ref erence range: 50-1,100 mOsm/kg. The re ference range was not u sed to interpret this result as normal/abnor mal. Lab Interpretation (test Normal code = 49881-0) [facility] HospitalOSMOLALITY, SERUM OR [id number] 15:57:18 Test Item Value Reference Range Interpretation Comments OSMOLALITY (test code = See_Comment [Au tomated message] 6382859305) The system Mic[employer]elt generated this result transmitted ref erence range: 278 - 30 5 mOsm/kg. The re ference range was not u sed to interpret this result as normal/abnor mal. Lab Interpretation (test Normal code = 75010-0) [facility] HospitalSEDIMENTATION [id number] 14:17:02 Test Item Value Reference Range Interpretation Comments ESR (test code = See_Comment H [Automated message] 8912160972) The system Mic[employer]elt generated this result transmitted ref erence range: 0 - 20 m m/HR. The reference r cheyanne was not used to interpret this result as normal/abnor mal. Lab Interpretation (test Abnormal code = 05838-3) [facility]XR SH[facility]ER 2+ VW [id number] 13:53:22 Anterior dislocation of the right shoulder. [...] of the right shoulder.RL: 5611END OF REPORT [facility]2021-[facility]-21 13:09:09 Test Item Value Reference Range Interpretation Comments POCT GLU (test code = 5229540589) 209 mg/dL 70-110 H Lab Interpretation (test code = Abnormal 09286-6) [facility] HospitalTROPONIN [id number] 12:13:42 Test Item Value Reference Range Interpretation Comments TROPONIN I (test 0.025 ng/mL See_Comment [Automated code = 9506090955) message] The system which generated this result [...] ? Lab Interpretation Normal (test code = 46991-0) [facility]N-TERMINAL [id number] 12:10:24 Test Item Value Reference Range Interpretation Comments NT-proBNP (test code 1490 pg/mL See_Comment H [Autom ated = 4232286770) message] The system which generated this result transmitted reference range : <=450. The reference range was not used to interpret this result as normal/abnormal . CARL (test code = CARL) Biotin has been reported to cause a negative bias, interpret results relative to patient's use of biotin. Lab Interpretation Abnormal (test code = 06904-3) [facility]. METABOLIC PANEL (50268)2021-02-21 12:09:43 Test Item Value Reference Range Interpretation Comments NA (test code = 131 mmol/L 135-145 L 7248676333) K (test code = 4.1 mmol/L 3.5-5.0 7052581472) CL (test code = 96 mmol/L 98-108 L 4129164420) CO2 TOTAL (test code = 26 mmol/L 23-31 1151866814) AGAP (test code = 2-16 4264631387) BUN (test code = 19 mg/dL 7-23 9056580262) GLUCOSE (test code = 90 mg/dL 70-110 8369558188) CREATININE (test code = 0.98 mg/dL 0.50-1.04 4192694127) TOTAL BILI (test code = 0.7 mg/dL 0.1-1.4 9368897208) CALCIUM (test code = 7.9 mg/dL 8.6-10.6 L 5757649439) T PROTEIN (test code = 5.4 g/dL 6.3-8.2 L 3751799251) ALBUMIN (test code = 3.0 g/dL 3.5-5.0 L 2705465018) ALK PHOS (test code = 37 U/L 34-122 3944165485) ALTv (test code = 13 U/L 5-35 2-6) AST(SGOT) (test code = 35 U/L 13-40 8397643665) eGFR (test code = mL/min/1.73m2 2428855282) CARL (test code = CARL) Association of [...] tests). Lab Interpretation Abnormal (test code = 68225-8) [facility]MAGN[facility]IUM2021-[facility]-06 12:05:19 Test Item Value Reference Range Interpretation Comments MAGNESIUM (test code = 1753837004) 1.7 mg/dL 1.7-2.4 Lab Interpretation (test code = Normal 22040-9) [facility] [id number] 12:04:59 Test Item Value Reference Range Interpretation Comments URIC ACID (test code = 6507964267) 4.0 mg/dL 2.9-6.0 Lab Interpretation (test code = Normal 52613-4) [facility] WITH [id number] 11:43:56 Test Item Value Reference Range Interpretation Comments WBC (test code = See_Comment [Automated 6990-2) message] The sy stem which generated this result transmitted reference range : 4.30 - 11.10 10*3/?L. The reference range was not used to interpret this result as normal/abnormal . RBC (test code = See_Comment L [Automated 339-8) message] The sy stem which generated this [...] RDW-SD (test code = 47.8 fL 39.0-49.9 83358-7) RDW-CV (test code = 14.8 % 12.0-15.5 788-0) PLT (test code = See_Comment [Automated 777-3) message] The sy stem which generated this result transmitted reference range : 166 - 358 10*3/ ?L. The reference r cheyanne was not used to interpret this result as normal/abnormal . MPV (test code = 10.2 fL 9.5-12.9 05149-9) NRBC/100 WBC (test See_Comment [Automat ed code = 8967343959) message] The system which generated this result transmitted reference range : 0.0 - 10.0 /100 WBCs. The refer ence range was not u sed to interpret th is result as normal/abnormal . NRBC x10^3 (test code <0.01 See_Comment [Auto mated = 8059268569) message] The s ystem which generated this result transmitted reference range : 10*3/?L. The reference range was not used to interpret this result as normal/abnormal . GRAN MAT (NEUT) % 81.3 % (test code = 770-8) IMM GRAN % (test code 0.70 % = 8234480540) LYMPH % (test code = 13.7 % 736-9) MONO % (test code = 3.0 % 5905-5) EOS % (test code = 0.6 % 713-8) BASO % (test code = 0.7 % 706-2) GRAN MAT x10^3(ANC) 4.41 10*3/uL 1.88-7.09 (test code = 5751198576) IMM GRAN x10^3 (test 0.04 10*3/uL 0.00-0.06 code = 2094567976) LYMPH x10^3 (test code 0.74 10*3/uL 1.32-3.29 L = 731-0) MONO x10^3 (test code 0.16 10*3/uL 0.33-0.92 L = 742-7) EOS x10^3 (test code = 0.03 10*3/uL 0.03-0.39 711-2) BASO x10^3 (test code 0.04 10*3/uL 0.01-0.07 = 704-7) Lab Interpretation Abnormal (test code = 32705-6) [facility] HospitalCT ABDOMEN PELVIS W [id number] 09:25:19 No defined focal acute inflammatory process. No hydronephrosis orperinephric fluid. Right renal cysts Multiple pancreatic cysts, outpatient MRI with MRCP recommended for moredefinitive assessment. Small sliding hiatal hernia Basilar atelectasis Diverticulosis of the colon without imaging evidence of a cutediverticulitis Moderate fat-containing umbilical hernia Bony demineralization, consider correlation with outpatient bone mineraldensity exam as clinically appropriate. Degenerative changes in the lumbarspine RL: 109AFC: 97886 End of report Examination: Computed tomography of [...] abdomen and pelvis with contrastOrdering Physician: TYRON Nath: 02/21/2021 1:30 AMHistory: Flank pain, kidney stone [...] appropriate. Degenerative changes in the lumbarspineRL: 109AFC: 16590Cda of report [facility]CT HEAD WO [id number] 09:17:191. ?No acute intracranial abnormality. RL: 6200 AFC: 02203Jsi of report. ORDERING PHYSICIAN: TYRON REYES CLINICAL [...] clear.IMPRESSION1. No acute intracranial abnormality.RL: 6200 AFC: 08268Xas of report. [facility]PO[facility]2021-02-21 07:45:22 Test Item Value Reference Range Interpretation Comments POCT GLU (test code = 9205715307) 138 mg/dL 70-110 H Lab Interpretation (test code = Abnormal 88031-6) [facility] HospitalTROPONIN [id number] 07:16:11 Test Item Value Reference Range Interpretation Comments TROPONIN I (test 0.031 ng/mL See_Comment [Automated code = 0572413011) message] The system which generated this result [...] ? Lab Interpretation Normal (test code = 96223-9) [facility] HospitalIRON [id number] 07:13:30 Test Item Value Reference Range Interpretation Comments IRON (test code = 7271879181) 27 ug/dL 50-160 L TIBC (test code = 5066666672) 224 ug/dL 250-410 L % FE SAT (test code = 3737654201) 12 % 20-50 L Lab Interpretation (test code = Abnormal 34093-8) [facility] HospitalPROTHROMBIN TIME / [id number] 06:48:08 Test Item Value Reference Range Interpretation [...] tions. Lab Interpretation (test Normal code = 48917-7) [facility] HospitalFERRITIN [id number] 06:23:04 Test Item Value Reference Range Interpretation Comments FERRITIN (test code = 112.0 ng/mL 11.0-264.0 1985310784) CARL (test code = CARL) Biotin has been reported to cause a negative bias, interpret results relative to patient's use of biotin. Lab Interpretation (test Normal code = 73370-5) [facility] HospitalTHYROID STIMULATING [id number] 06:20:07 Test Item Value Reference Range Interpretation Comments TSH (test code = See_Comment [Automated message] 6895060004) The system Micropelt generated this result transmitted ref erence range: 0.45 - 4 .70 mIU/L. The refe rence range was not u sed to interpret this result as normal/abnor mal. Lab Interpretation (test Normal code = 61176-1) [facility] HospitalGLYCOSYLATED HEMOGLOBIN (A1C)2021-02-21 06:16:28 Test Item Value Reference Range Interpretation Comments HGB A1C (test code = 5.5 % 4.0-5.7 4548-4) CARL (test code = CARL) Reference RangesNormal: <5.7%Prediabetes: 5.7 - 6.4%Diabetes: > 6.5% Lab Interpretation (test Normal code = 70632-7) [facility] HospitalPROTEIN CREAT RATIO URINE [id number] 05:59:37 Test Item Value Reference Range Interpretation Comments T. PROT U (test code = 2888-6) 17 mg/dL CREAT U (test code = 4892122280) 34.5 mg/dL Protein/Creatinine Ratio Urine 0.0-2.0 (test code = 6867942458) [facility] HospitalPHOSPHORUS2021-05-06 05:59:02 Test Item Value Reference Range Interpretation Comments PHOSPHORUS (test code = 8381348330) 4.7 mg/dL 2.5-5.0 Lab Interpretation (test code = Normal 87177-2) [facility] HospitalURIC [id number] 05:58:57 Test Item Value Reference Range Interpretation Comments URIC ACID (test code = 9801578285) 3.5 mg/dL 2.9-6.0 Lab Interpretation (test code = Normal 47320-6) [facility] HospitalCREATINE [id number] 05:58:47 Test Item Value Reference Range Interpretation Comments CK (test code = 8336552004) 26 U/L 33-194 L Lab Interpretation (test code = Abnormal 58910-4) [facility] HospitalMAGNESIUM2021-05-06 05:58:42 Test Item Value Reference Range Interpretation Comments MAGNESIUM (test code = 1146481619) 1.7 mg/dL 1.7-2.4 Lab Interpretation (test code = Normal 72534-1) [facility]PO[facility]SE (AUT[facility]ATED)2021-02-21 05:57:21 Test Item Value Reference Range Interpretation Comments POCT GLU (test code = 7770470568) 59 mg/dL 70-110 L Lab Interpretation (test code = Abnormal 93097-0) [facility] HospitalSODIUM, URINE [id number] 05:55:36 Test Item Value Reference Range Interpretation Comments NA URINE (test code = 9687292024) 69 mmol/L [facility] HospitalLIPID PANEL (64502)(TOTAL CHOLESTEROL, TRIGLYCERIDES, HDL)2021-02-21 05:48:17 Test Item Value Reference Range Interpretation Comments CHOL (test code = 136 mg/dL 120-200 0008469972) HDL (test code = 75 mg/dL >50 8858121926) HDLC RATIO (test code = See_Comment [Au tomated message] 1985652406) The system Micropelt generated this result transmit roxanna reference range : <=4.5. The refe rence range was not u sed to interpret th is result as normal/abnormal . TRIG (test code = 158 mg/dL 30-170 5024396903) LDL CHOL (test code = 29 mg/dL See_Comment [Auto mated message] 09916-1) The system Micropelt generated this result transmit roxanna reference range : <=160. The refe rence range was not u sed to interpret th is result as normal/abnormal . VLDL (test code = 32 mg/dL 5-60 5846111020) Lab Interpretation (test Normal code = 53522-9) [facility] HospitalXR HUMERUS 2 VW [id number] 00:20:13 1. ?No fracture. 2. Possible glenohumeral [...] signedby Rei Poon MD at 02/20/2021 7:20 PMEl [facility]'s HospitalXR FOREARM 2 [id number] 00:20:13 1. ?No fracture. 2. Possible glenohumeral [...] signedby Rei Poon MD at 02/20/2021 7:20 PMUn[facility] [id number] 22:41:33 Test Item Value Reference Range Interpretation Comments APPEARANCE (test code = Hazy Clear A 1455118044) COLOR (test code = Yellow Yellow 2431257274) PH (test code = 4.8-8.0 0287718193) SP GRAVITY (test code = 1.003-1.030 2847004322) GLU U QUAL (test code = Normal Normal 1515435787) BLOOD (test code = Negative Negative 4816134003) KETONES (test code = 20 mg/dL Negative A 1067903846) PROTEIN (test code = Negative Negative 2887-8) UROBILIN (test code = Normal Normal 6201623809) BILIRUBIN (test code = Negative Negative 3733768074) NITRITE (test code = Negative Negative 7603734388) LEUK NATHAN (test code = 250/uL Negative A 7041349535) RBC/HPF (test code = See_Comment [Autom ated message] 4994070760) The system Micropelt generated this result transmitted ref erence range: 0 - 3 HP F. The reference range was not used to int erpret this result as normal/abnormal . WBC/HPF (test code = See_Comment H [Autom ated message] 7139734891) The system Micropelt generated this result transmitted ref erence range: 0 - 5 HP F. The reference range was not used to int erpret this result as normal/abnormal . BACTERIA (test code = Many Negative A 2002627004) MUCOUS (test code = Moderate Negative LPF A 4972014983) Lab Interpretation (test Abnormal code = 41338-3) [facility] HospitalCOVID-19 (ID NOW RAPID TESTING)2021-02-20 22:40:01 Test Item Value Reference Range Interpretation Comments SARS-CoV-2 Rapid ID NOW Not Detected Not Detected (test code = 32912-4) CARL (test code = CARL) ID NOW COVID-19 Assay is an isothermal nucleic acid amplification test intended for the qualitative detection of nucleic acid from SARS-CoV-2 viral RNA in nasopharyngeal (BUNG DRIVER) specimens. It is used under Emergency Use [...] indicated. Lab Interpretation Normal (test code = 94695-1) [facility] HospitalTROPONIN [id number] 21:58:52 Test Item Value Reference Range Interpretation Comments TROPONIN I (test 0.019 ng/mL See_Comment [Automated code = 4967172017) message] The system which generated this result [...] ? Lab Interpretation Normal (test code = 93129-8) [facility] HospitalN-TERMINAL [id number] 21:53:51 Test Item Value Reference Range Interpretation Comments NT-proBNP (test code 1840 pg/mL See_Comment H [Autom ated = 7087988836) message] The system which generated this result transmitted reference range : <=450. The reference range was not used to interpret this result as normal/abnormal . CARL (test code = CARL) Biotin has been reported to cause a negative bias, interpret results relative to patient's use of biotin. Lab Interpretation Abnormal (test code = 20285-9) [facility] HospitalCOMP. METABOLIC PANEL (42091)2021-02-20 21:50:26 Test Item Value Reference Range Interpretation Comments NA (test code = 129 mmol/L 135-145 L 4978008452) K (test code = 3.4 mmol/L 3.5-5.0 L 5815874724) CL (test code = 94 mmol/L 98-108 L 0287132374) CO2 TOTAL (test code = 24 mmol/L 23-31 0149997861) AGAP (test code = 2-16 5655922266) BUN (test code = 18 mg/dL 7-23 6330062835) GLUCOSE (test code = 62 mg/dL 70-110 L 8972256842) CREATININE (test code = 1.00 mg/dL 0.50-1.04 3267945964) TOTAL BILI (test code = 0.9 mg/dL 0.1-1.0 8621998293) CALCIUM (test code = 8.5 mg/dL 8.6-10.6 L 2873039786) T PROTEIN (test code = 5.8 g/dL 6.3-8.2 L 8529817963) ALBUMIN (test code = 3.4 g/dL 3.5-5.0 L 6206851847) ALK PHOS (test code = 49 U/L 34-122 8196740944) ALTv (test code = 15 U/L 5-35 1742-6) AST(SGOT) (test code = 28 U/L 13-40 7458897246) eGFR (test code = mL/min/1.73m2 5513602685) CARL (test code = CARL) Association of [...] tests). Lab Interpretation Abnormal (test code = 75729-7) [facility] HospitalLIPASE2021-05-05 21:50:26 Test Item Value Reference Range Interpretation Comments LIPASE (test code = 5460662603) 86 U/L 0-220 Lab Interpretation (test code = Normal 53856-2) [facility] HospitalCB WITH [id number] 21:25:40 Test Item Value Reference Range Interpretation [...] RDW-SD (test code = 47.0 fL 39.0-49.9 88979-7) RDW-CV (test code = 14.6 % 12.0-15.5 788-0) PLT (test code = See_Comment [Automated 777-3) message] The sy stem which generated this result transmitted reference range : 166 - 358 10*3/ ?L. The reference r cheyanne was not used to interpret this result as normal/abnormal . MPV (test code = 10.1 fL 9.5-12.9 33040-7) NRBC/100 WBC (test See_Comment [Automat ed code = 1808071363) message] The system which generated this result transmitted reference range : 0.0 - 10.0 /100 WBCs. The refer ence range was not u sed to interpret th is result as normal/abnormal . NRBC x10^3 (test code <0.01 See_Comment [Auto mated = 5264960511) message] The s [employer] which generated this result transmitted reference range : 10*3/?L. The reference range was not used to interpret this result as normal/abnormal . GRAN MAT (NEUT) % 52.9 % (test code = 770-8) IMM GRAN % (test code 0.60 % = 9472943075) LYMPH % (test code = 35.0 % 736-9) MONO % (test code = 8.3 % 5905-5) EOS % (test code = 2.6 % 713-8) BASO % (test code = 0.6 % 706-2) GRAN MAT x10^3(ANC) 4.32 10*3/uL 1.88-7.09 (test code = 8467023366) IMM GRAN x10^3 (test 0.05 10*3/uL 0.00-0.06 code = 2578398395) LYMPH x10^3 (test code 2.86 10*3/uL 1.32-3.29 = 731-0) MONO x10^3 (test code 0.68 10*3/uL 0.33-0.92 = 742-7) EOS x10^3 (test code = 0.21 10*3/uL 0.03-0.39 711-2) BASO x10^3 (test code 0.05 10*3/uL 0.01-0.07 = 704-7) Lab Interpretation Abnormal (test code = 15954-5) [facility] HospitalLactic Acid Whole [id number] 21:20:26 Test Item Value Reference Range Interpretation Comments LACTIC ACID (test code = 2.06 mmol/L 0.50-2.20 6227478994) Lab Interpretation (test code = Normal 47478-8) [facility] HospitalXR CHEST 1 [id number] 21:07:40 No acute cardiopulmonary abnormality. Preliminary Report Dictated by Resident: Julia Arroyo MD., have reviewed this study and agree with theabove report.EXAM: XR CHEST 1 VW CLINICAL INDICATION: tachycardia, weakness, dizziness COMPARISON: None FINDINGS: The lungs are well-expanded and clear without focal consolidation, pleuraleffusion, or pneumothorax. The cardiac silhouetteis upper normal in size. The aorta is tortuous. No acute osseous abnormality. [facility], Radiant ResultsInft User - 02/20/2021 4:08 PM CDTEXAM: XR CHEST 1 VWCLINICAL INDICATION: tachycardia, weakness, dizziness COMPARISON: NoneFINDINGS:The lungs are well-expanded and clear without focal consolidation, pleuraleffusion, or pneumothorax. The cardiac silhouette is upper normal in size. The aorta is tortuous.No acute osseous abnormality. IMPRESSIONNo acute cardiopulmonary abnormality.Preliminary Report Dictated by Resident: Julia Sánchez MD., have reviewed this study and agree with theabove report.[facility] HospitalCytology2021-[facility] 14:27:00 Test Item Value Reference Range Interpretation Comments Case Report (test code Medical Cytology = 104) Report Case: [id number] Authorizing Provider: Amor Muller MD Collected: 11/29/2020 02:08 PM Ordering Location: [facility] Endoscopy Received: 11/30/2020 02:52 PM Services Pathologist: Moises Aguilar MD Specimen: Pancreas, pancreas cyst DIAGNOSIS (test code = [id number] 3220) FuZzEwMzNcZnRuYmpcdWMx IHtccnRmMVxlcGljOTIwMF pbseGiCCLhbNVxU5Xweevy ZAcrQA3hWL1zuWplzCVfaW UvUGKnVrYby1kmm613wBPd z7wjCGXExebyqXu0lUyiL5 9gc7E5UzyaT39gaOOaBUry bGFpblxmczIwIFBBTkNSRU NYRKLGT2EsHDiHVTTiPKNY LOVkJ2dUL3PBMV9SYPubwD GfNLUdZS5cWwqvLUUTA0TN EFAGHLOOXxBXTTtVQ93LKq NZXHBhclxmMCAgICAtIFRo ZSBtdWNpbiBzdGFpbiBzaG 29dsY5BBZhXFCcJJUqm3Up iTJqv2OhaNh4lBH9JRHvme 44GIB2LyDmx4Q6CEI6NHKa AUIyj2poHLXsvBExGiIkPm NcZnRuYmpcdWMxXGRlZmYw w8zxi207uUInn2yaKUYdEn M3cNHoRSTqsZUiK017BKSd IThud5psj1XaBDVryMTac1 V5NVIUlnlxqYd8oEnfZ61t e8L2BljyE7eoXZOiJVMpD2 YnDR5dZJVaKvz3RPZ5VOV3 BJTjNOSoD5IcLC5kKMWgiH XjNSm3f1tirEohHSFtYFJ6 l7nvUWhcamLbVL9tov6rnP r8b9bjnyZnLRVfQMRdfFKA QYEiR8RywHqfUu8dsSx9dI sqYyxcFCT4Xll0EL8elq24 ekd8nGdzFNZhmsupHiT3YK siXQHihigbAOf3DRbyHOCp fRY0EUFnbOTuY0NmADGzLX 9cyex0ZYV6IKamVRLpAoW2 NDBcaGVhZGVyeTcyMFxmb2 52CPJ3BtMqQB1bQ8Met9J5 qS8cmQGyFPVzzCGzWpPhPE Rggi1jbIFwQMgcf7KsMTB7 irD5tQDefMCiKDUjVrB8JU brOY0pcy46KIMkSPF5gc5y bGNccGdicmRyaGVhZFxwZ2 WsLQFzd052JZZaW5CeNCYe s4K3zlQzBaFuMKZxeKB1mz D2MPEqJY3pyjsvv0lrDHps SGoxKWWotvV1ehJ8FKHvzE MeO2UcuX8tNGZwXA1gefge b3lnRKB5JQewWLWjASJ9Hd JmPGGca5Jenrc8GcYzf7Br zUJbUYxgA64sk700VPZien WeQ9urqRIbqhnzwTJqadti QFlpuhY8SSPtLQodtyccCL FgUQvpY7geDzUxAQBhzOqs KWitt4BgOBIkJIJgCoOeiI HrISZoBfd6JJNceYWmWNRc YqNlX4qwmiirXuGMBEDbf8 klC5ghsTZKcDIxY1OiBMru suRaNHfvXQtgZZHbWAC1QE 4eTKXzOOBoxv54 COMMENT (test code = y8qsjAKyUKJywHH6WlHlQP 3358) Fcd7qht2ZqzRZnaPHwPBhu fWZqakNtug78nSQ8xC88SU 2dEZRgBuO7MVWibsI4Vwr5 FJMsFUVzmFBrB581s3yqq6 soxtRdfCV5mGzhTCMuDJUr YWluXGZzMjAgQSBmZXcgcm SuV3QpxoNwUMEmaUXeBIBf xUUoUBktGJwtI0EdrMWqDA AfJI8xmFSoLScxcOnwbfOv WTkdaerxftEpa5E2cDQ8pD 6eIY1qTRUblEXzWNZhdKbp ju4jmTOaBEZnbdKlpp8eDL KtOYW8dHJhZFH2E4DgjXNu fTb9sQQdiSLcXUEgsQamKi BccGFyfQ== CPT Code(s) (test code i0fofWJzIXCgiUO7YpWkBK = 3424) Aqu4clm5LtrQYdsAJhZPer uZBattDfie68jJB0nK37GZ 9eUWTwKmA1KYPeovM5Zwn6 BXBtDJLtyEOqS897u7orp4 lzxkFdpRT2oNnvENLwZPYp YWluXGZzMjAgODgxMDgsID r9YzHyDUQzvx8= CLINICAL DATA (test m4alyPMoGLBnbCE3JvPaGR code = 3354) Eov4djn8BfpHHmoANgVMtt cALqceOsyo11tJC3iH70HE 8dJPSjWxF9DFOrryW0Axs6 JQDmGAKisEXwI942p0bql0 revcWnbLN6oGxhPOQxUTOn FIzlSFNmAdEcVx46EZZfAI xeVV86ZANaSIBtGTLie4ga VDpka9uygkHejRqgGDD9aC LjVD3mUQA9t8JwrQPlagBd ZzqqPNHmklL0sLZibMRbX7 JlYXRpYyBoZWFkXHBhcn0= SPECIMEN SOURCE (test j4piuNIcIZRqfCK9CkKpRL code = 3377) Upq7rtd0ProKAcqJIuODyt dFMcpsAqkt45oYN4pL45SL 5nRZTlMlL2SWOnwrB1Ksp1 PZSoMWHxjHIgJ778o3kbf2 ofobApbRB1hFhtOCYhPPSp QOxeUXKcAfSaVZAUQ6ZNXW KuY1gEDXkaGUOKNCbyNc4Y XHBhcn0= GROSS DESCRIPTION (test d5qorCPyCHLlhTG7AoXnOB code = 3366) Vlc6duw9VymZBhgASfWWmm zSSdowIrro60aBL9xI82EP 3wZVIkGvC0UNGfssC6Czy6 XRUnZZYwbDWhN625t5wjo9 ywgfYldVO2iPcjVRPxAAUs AJbzHHQeGkGvIoOoOAn4UF KnHMdvmHwcV9m6e4FoT8ok byYrZJTmpBZ5uNCtZTApeI BsZTsgcHJlcGFyZWQgNCBj mHLpf6TborZzVX9zNLNnuO AygX4qD8g6t4GwjJ4gbWSo fQ== MICROSCOPIC DESCRIPTION u4ktmCAxMSMpnDK3DkGaOB (test code = 3371) Jif7mxu8AgcROvsKOfKVjz gGTleqVpge66yBP7mP06VK 8cZWZbEeI0ITVssiU2Aku1 QIKiTKOqcCPjP015y9tid8 rxpyLvbXR8ySkdWEAbKECq VTdvFGIzHcIlDDKcXx6loL VkLiBccGFyfQ== SPECIAL STUDIES (test e2conBLqBXQtoFQ0SsQvIL code = 3376) Suu3iby6AtlJRejDZaAUjd kHZtszCppb43rWN4cF08BL 2mGWZeZjM5URPfyjY6Yxe6 ONWlKFXoqVPvF751JYUxNE QyrWkngvg6cR85LLBnqZ5x xIWeMNi8ZXEyjqPtqPlqmW 1fVvXvFnMwTwMFcCRelE34 QDHdxiH1FAOls19lt9VpoV rkxyNcGGZbCTdlV1u1FZFr HDRjRVM1z0Jro7CnjA1xhR 7ftWuedH3dpZVimMZ5blmk k9Ijw5AlG0bdnBRkkPKwaz MuXHBhciBNdWNpbiBccGFy ISBxrzMwl0xmP7ftLJTePH I1JI8cfvAfOaTqKX1liG63 i0Cdo85zd10fvB9buIApdi AmN29ypGAoxEMpy7LmFZLm xjShoIF2TBVjARnffkhfv0 l7sDD1cQKdrQGsiJD9tSGb aOWxIREAgSAySHZsn348ky 7sOMPnuECyjfLkhD7uJBpq vseyxWOdEN3zHKCjAMMaEP SkTJ26dvIgPP8maKIgr8uo raIuvIYzn2VwsBP0NUAxvH PjaitcHr5eIA80FEUuZDvt oK8meBFbewNaKU5jAH3uY7 R6tEYeGJTvwiFxo9bbMYau BM4jZMTtzHbeLrmjNSKfOR TkeaKwyAV1AJZjlYWvZRBb nYRlTPwpiYEzv4gnd3BsY8 xjzOiihUY1QYItT9vqbPUw mGG9HNC7bB6lNPwdznMfZJ Dkt4LhMRHfFXKdOrU7lK4y PIW8SpSDzTglFMV4GwJ2XK yiIUWqZI7uPOihHVvpT1Xm nBWqXARAMGNiq2klW0lnHG Wmm8MxhW3cfDV3vIEfMICl iCX3CFKnOFG8LJojaQOoLY PnZGQowBCpeZUeWc1epJKl K9TjS0znmkOsuSZfcAT2lL GeCNynvaOeMSO7XKZljZ1o JN0rUFBvwPScIE0toNQeHI AvSNIqEMBcFSVdy3PeYVKl ji16GLNxHjperWklKYWjJk 0xNk6pBJDvrgBsLIA4RqDV RB1zqwjucQNkxZyyfs9dZA loIJXUBEIyLENnWNY6USKs mC8wOWJ7bDQ7SVW5N0tfW5 rhCGJcqnMeNU9lKMYemFWw sjFqMLiyVP3dcQMcTJJqu7 OrughcAVNoOGS4NFU4PEdy XPAmMNEcVx9lCLExlN4eS6 LeOQK8vlUjw9TqNxJWlQCb wG59zUZbtk92HWAhKPHkZ9 FyZGVkIGFzIGludmVzdGln FCRbl47wkNWgeiDze8Ligv WoSAAfM5gwZJKadQLygKPv p5MewL6gcEVwbfDnLXR5lP BwOJYlcI3oYYAtdAdsHWIc yF9qU4VjKDstZb2vELRfsj guCT6uie47IQ6mkpNrEV8s ktMkQI37rpNmJuBhWTy3XU qRPHxRFYh1YDZgoyDxgALi qGCmUAAauL3aqKLjVz5fvI BoaWdoIGNvbXBsZXhpdHkg A8quohqsJRphoQZlf1TjhG 7gtNU0UQP9xV4vBiheRUD1 Gross assessment was [facility] performed at (test [facility], = 2777) Department of Pathology, [address] [place] [address] 10[address], Technical component was [facility] performed at ([facility], = 2778) Department of Pathology, [address] [place] [address] 668[address], Professional component [facility] was performed at ([facility], code = 2779) Department of Pathology, [address] [place] [address], [facility]00 Test Item Value Reference Range Interpretation Comments Case Report (test code Medical Cytology = 104) Report Case: [id number] Authorizing Provider: Amor Muller MD Collected: 11/29/2020 02:08 PM Ordering Location: [facility] Endoscopy Received: 11/30/2020 02:52 PM Services Pathologist: Moises Aguilar MD Specimen: Pancreas, pancreas cyst DIAGNOSIS (test code = o3vtjIWeEARye7ldTIRnrK 3220) FuZzEwMzNcZnRuYmpcdWMx IHtccnRmMVxlcGljOTIwMF grcfWkFAWrxDZxZ5Bpwxtn JQjyZI0pTB9qrAdsmJWskU AjZKYpPfXyy4kcf068jDOl q5dfFCJTgialjBs7gZmrG0 9mu6X1QzeuC57npDCiIYem bGFpblxmczIwIFBBTkNSRU UQXEWPA8DqGLkZZGKkJDVZ LNGkR9pPE3TYDY2HWZknfR XfEVYaYB7uEdypYBRPQ6HS EKDTCRUERhFIANbIE19WZi NZXHBhclxmMCAgICAtIFRo ZSBtdWNpbiBzdGFpbiBzaG 58ajX8UYDuFTVvEXWvu0Xu dAHog7SvnRj2kQF7LCJhfi 21NXA7DxAdp7C1NQU9MYUr EYHzv3ulHJBxnNYcCtXbId NcZnRuYmpcdWMxXGRlZmYw p0qup370eVZml7iaTRMfYz G5yIEaXEVrlGZxR362OBDg BUyqk7zyw8DoSXAcwEAik3 Y7YEHBwxmcbTn2uXnmQ29t b3K8EccfB6czUXKsOURyB7 DcYP7iJGPoOgd1GOI5FDU0 BILnZDXcZ6TuHE9gNXBtsP ZmUSp7r5pezOywJZOyEQG1 v9peYCfiohGvBS2jhf2xxW h3z8reclJoPQRjGFZdkBVC XXNlH3EbpJvrYi2rcLg7gJ rnZordPIV5Izq8HZ7mfk28 dqc2fMbkXJRbekglUeL1YS gfUYCrpoewKVy0BBozZDLk dPI1ZTJkuUDdO0XdFKYcFQ 0nyuc9SMN6BKstDFKsOfX8 NDBcaGVhZGVyeTcyMFxmb2 36BKP6SyRpTX3gZ8Yiv0Y6 fA5jwMEcXNZzgHNsEnOnAS Ckpq9wmEDtJRaqi5OyROQ4 qkK9lGOanBLwNBZzIcW7XK fqOX4nuf82AXHvZAS0ht9y bGNccGdicmRyaGVhZFxwZ2 FdYQBjx308VBUnW4CgWNXy f4S0qdVwJvDoPREjaVC3cp Y2XLEqBP0ktuhjn5vgNHky CSrdKUKiosX9lqA9SSHkiR VvD7ExyB1qABCbLW5uapcm g8csDXI9DIuqYZAhNSL1Nz CfAGRhh7Ggnvk4MrTlz6Mn pGMiADpgP02nw419GPXetj AxP7kndIAyoozmwXBhljol JAraomC0JKDvBXacfkblNU MeWAosI3iwJeXcGEOutYek LHuii0YdRXVrARHfDcQbfM CmNBOnIke3VIExxLMuMXDh TtObN2xpmhckAbNGATPkp3 eiJ0zkwWYKfCBwL8DeICde oqIwSBsbZZpaDSKpLPG6BK 6aQQKrNMHkdj83 COMMENT (test code = j0wsgJGxWLFwbWH3RoCzDV 3358) Etz3qrc1XbgMBtfISbJSog pSYactRvst46hJB0mX09PX 2vCGIqRpN8VEVzfnM8Pmn1 PWSwWLSieLDrM257e7ycw4 qyqgKofDH6lXkrPIXiZJXo YWluXGZzMjAgQSBmZXcgcm MeT0HvbqYdCBUbnGHxUNLt bVSiWSmuRKpiE5FsdZXyCY FlMA7kmMVeCPniaEyqxpXb KPgzdiwnxlCuw6Z1qKW1nF 7uSB0vGOCxoQEaUFJbuXsc ca2zhABsIKGtmhCiyl3gLC DgMVG5xVAhHZP6B7AniTLg xGr1aNAplZIaOHObaMhoMb BccGFyfQ== CPT Code(s) (test code w9gifJVsDECjuSX3ApOfWB = 7353) Tih2pfb6MyiNClzPDoVOfd ePGouaFhye19yJN0iQ82MK 8nCXIzWvV8XBEvniE8Ynm1 WHNtEDZfnHLdR400v1exz3 tlafEqyFZ9cSgjMTGsQNIp YWluXGZzMjAgODgxMDgsID i7IeAhEMAiuh3= CLINICAL DATA (test y8trhLIhHSYhvNE4DyUiGO code = 3351) Fyr3qvi5PvaRIigRGyNDgg yDLekrDdxf46sUN5hJ94QQ 4kDVAsVhV1FANvycF1Dvg9 TOYjEQHyzNCgN612n7uhk4 bcjhPgcVX8wObfAUYoKANx HMxbJOHrLcHtBh90IXGfRC ceDZ18DAFsCXBgSNUaa7az KIlha8rzlgXxkCfvUSI3kD MlBO1jKZV3z4FrpESfpjCf VpreHWUjcpI3wAKmrFJlQ5 JlYXRpYyBoZWFkXHBhcn0= SPECIMEN SOURCE (test j5hldHXuNXJgnQY1GmIsXN code = 3377) Hfb1ghw0HmaDDitEFeHAyz aMXtobIqte26qCH0qS87VT 6bHRNuApG9KFSckkD6Hgx7 BJWnRUFxpHBnA959y2upi9 dilyXexVU5eDssHNOoASBh THgzZLRiElVzUUVHV8BLJM DvR1jSJPbfIYRBNAjvLl0B XHBhcn0= GROSS DESCRIPTION (test b2smlNKjHBUdmGU3ZpHmCQ code = 3366) Ikx7yxx3HozOXwhOMkWSlk iIKmtfTkwl11gYI1wV43VJ 8bNRJlMhQ0YVShzqF9Rop3 FPKqECHceXAxN099p8sfr7 ukdnSbkGV0vTnpQHFgKJEy UPfqRGArJnDiMbXzQPh8BX KwIItpsLyoI6e4c8JpK7nt joBdJXQmnEO5zSBfAOGbcA BsZTsgcHJlcGFyZWQgNCBj dESfe7AizrVcPD8cUSRfwX MofC5nJ5x6h6MhlE5ycKYx fQ== MICROSCOPIC DESCRIPTION j4yjmBAjOZKxeIN4KyBcGS (test code = 3371) Gyn3zam2ViuZIzsOVvLRtb uCKhbpJkdp18aWZ2iN58LA 4sUHIaLbS1WWBjqzK4Arv9 LFMaYUZdhDGcH957q7ojw9 qpyiUixRJ7mYenTOHgADHm ZQglKPJtByNfQGLzJv9rwQ VkLiBccGFyfQ== SPECIAL STUDIES (test j8zooPDbZMDvrZE2TeFwJE code = 3376) Xpx6mpz0YpaBZpwUFlAJzq aBDnkhXjoc53jMW0lX45VX 1rTIIyCkV6XYScibA5Dzo2 JYCpGEJfvSPsE307KZQbDB EhoTohqkd2bS89TATxwJ5y gAIbGNt5FNNsfjHtjMlyaW 9zWfWiTwQoBiVSvTDriS02 FMZwgmL4FYIas90lk7QoiL qbqzLbJRCvWIfjA7l2HBHy IXRlWAV8h2Yek1OdyV3ubU 1qkSoyaW7pnZUsbJQ8lzgb q9Jbr9WvQ0qzmTQjdGOnoj MuXHBhciBNdWNpbiBccGFy TJGtgpTeb3rqB6xkFBKpVT R5ZN1lcsXpIpBySX1dzZ82 j6Zxt62yh66scJ3rmLGzar ScD05keRCbdGNpy9FeNGIp oxEppEY1GBAvIIhzkxdxx7 e3bOZ2eEZyuJCtxEY4uKAt hWGuUZOZrKCuHQVug543pn 2pANCurCVnkiOtqB5eCUjt dwflrGTmES1uMADgOYNsRW NyRS77mmCxYP7gyEYkj8da sqUcmLLhz1AguJA5IQIguU RcjjynQg6oVT36XEZiKNuv nF2ooNVffuYiAL8fPX5kT3 Z8tHYcWFExmxAxb3vyHXhx RO7oSSShbJgxRnfcABWyZR JpkvStiPA3LIXzqZSzXNMy xJKyXLqsaPWgi9wbj3IvK9 ttwAhksAN4ZMWjG6kdgTZh gZZ3JQI3mC8mJMayxtQeUA Sdf0JnNQOoMLHaTgH2uA0j GLJ8HpTCgAqlTET0ZnZ8HO qoSEAmFT4pOZwbWMqgG7Ev fJVlSCDFRWMep0rhN5thWT Wik6MheC3ixPQ7eAUwVOEl xTU4KIYdLMC1RSemcCVyDJ OkDCGqaFOpvGFaYm2lyXJt Y4VoA7uzusOhmWYtnRH0tU WuJDbmfwYcAIV5JZFzbV8m TB0rZOAnwWUyVS1ccHQxJD CkGVUpBZQzGHNdf5KbUPUk fi96MFGcMeohcOvcXXQhQt 0fBn6iHKKrvyUqKKK8WtYV XM3bzunhyPFfbDnsdb6oFV wyFTYWMJQhBCNuZAA7MNOw lV3cTMU7iDQ8PPO3V1quL2 qnLUDtidDeFA7sDIPxoWDc orMdDRcbXT0yuSYeWGEmg9 AkigdzPLTlCJE2UIA1IHku ZFUmSIKiQy0fKVIqfF0gE0 OmWPP4tfBmf4BeCqZGyVCt sY74cRHvwi87RZLtCMOgV3 FyZGVkIGFzIGludmVzdGln EZUmu32ulFLrnbJsr2Bqcp ZtOBXmZ3wfYMWftQAeoXCa n5OcpH0dpJBnmnCvVJR1kM DbCTImqJ3nWGZnxPltRATf nD9dM6XvOTfqSc0sOMPmca qeKP0erm47MT6utzCuCP2o wsMzPM21koAeYqHfGUd4ZD pNPDcLAAk1WPBnolZemNCy sQGzCJGbiZ9qgBFzIl2qtD BoaWdoIGNvbXBsZXhpdHkg Q1cnyckqCZinnDLwn5AncM 0stUZ4BQG7bZ3pDhmpRAC8 Gross assessment was [facility] performed at ([facility], = 2777) Department of Pathology, [address] [place] [address] 90[address], Technical component was [facility] performed at ([facility], = 7598) Department of Pathology, [address] [place] [address] 90957, Professional component [facility] was performed at ([facility], code = 2776) Department of Pathology, [address] [place] [address], [facility] 14:27:00Medical Cytology Report Case: [id number] Aut horizing Provider: Amor Muller MD Collected: 11/29/2020 02:08 PM Ordering Location: [facility] Endoscopy Received: 11/30/2020 02:52 PM Services Pathologist: Moises Aguilar MD Specimen: Pancreas, pancreas cyst PANCREAS CYST, HEAD,FNA (CYTOSPINS): - NEGATIVE FOR MALIGNANCY - The mucin stain shows weak and focal positivity Signing Pathologist Direct Phone Line: [phone] signed by Moises Aguilar MD on 12/01/2020 at 2:27 PMA few reactive ductal epithelial cells are noted within a larger population of completely normal and non- reactive ductal epithelial cells. 42350, 610628.5 cm x 1.8 cm anechoic lesion suggestive [...] evaluated Immunohistochemistry technical testing was performed at [facility], Pathology Laboratory where it was developed [...] qualified to perform high complexity clinical laboratory testing.[facility], Department of Pathology, [address] [place] [address], [facility], Department of Patho logy, [address] [place] [address], [facility], Department of [facility]ology, [address] [place] [address], NGKFXISA [id number] 16:01:00 Test Item Value Reference Range Interpretation Comments Cytology (test code = See Separate Report 2629) [facility] [id number] 16:01:00 Test Item Value Reference Range Interpretation Comments Cytology (test code = See Separate Report 2629) [facility] [id number] 16:01:00 Test Item Value Reference Range Interpretation Comments CYTOLOGY RESULT POINTER See Separate Report (BEAKER) (test code = 2629) POC-Glucose [id number] 11:57:00 Test Item Value Reference Range Interpretation Comments POC-Glucose Meter (test 73 mg/dL 70-110 : TE STED AT [facility] code = 1538) [address] [place] [address], [facility]: [employer] Machine Operator/Techni robbie ID = [id number] for DHRUV, MARGARE T Lab Interpretation (test Normal code = 36164-0) [facility] [id number] 11:57:00 Test Item Value Reference Range Interpretation Comments POC-Glucose Meter (test 73 mg/dL 70-110 : TE STED AT [facility] code = 1538) [address] [place] [address], 770 30: [employer] Machine Operator/Techni robbie ID = [id number] for DHRUV, MARGARE T Lab Interpretation (test Normal code = 55969-5) [facility]UCOSE [id number] 11:57:00 Test Item Value Reference Range Interpretation Comments POC-GLUCOSE METER 73 mg/dL 70-110 : TESTED A T [facility] 6720 (NELSY) (test code = [place], 1538) [address]: [employer] Machine Operator/Techni robbie ID = [id number] for [employer]
[2022-03-13] MEDS ORDERED: FENTANYL CITR 100 MCG/2 ML ONE ×2 (08:41→10:38)
[2022-03-13 08:44] LABS: Absolute Lymphocytes (CBC) 1.3 K/uL (0.7-4.9); Hematocrit 35.7 % (36.0-45.0); Lymphocytes % 18.7 % (15.3-44.8); MPV 7.2 fL (7.6-11.3); RBC Red Blood Cell Count 3.89 M/uL (3.86-4.86)
[2022-03-13 08:47] LABS: Protime INR 0.96
[2022-03-13 09:17] LABS: Albumin 2.8 g/dL (3.4-5.0); Bilirubin Direct 0.2 mg/dL (0-0.2); Bilirubin Total 0.5 mg/dL (0.2-1.0); Magnesium 1.7 mg/dL (1.8-2.4); Potassium 3.3 mmol/L (3.5-5.1); Protein, Total 6.1 g/dL (6.4-8.2); Troponin High Sensitivity 10.6 pg/mL (<58.9)
--- NOTE | 2022-03-13 09:46 | RAD REPORT ---
EXAM DESCRIPTION: RAD - Chest Single View - 03/13/2022 9:41 am CLINICAL HISTORY: sob, cp Chest pain. COMPARISON: Chest Single View dated 02/14/2021; Chest Single View dated 07/28/2020; Chest Single View dated 02/24/2020; Chest Pa And Lat (2 Views) dated 10/29/2018 FINDINGS: Portable technique limits examination quality. The lungs are grossly clear. The heart is normal in size. No displaced fractures. IMPRESSION: No acute intrathoracic process suspected.
[2022-03-13] MEDS ORDERED: ACETAMINOPHEN 325 MG TABLET ONE (10:37)
--- NOTE | 2022-03-13 11:03 | RAD REPORT ---
EXAM DESCRIPTION: CTAbdomen Pelvis W Contrast - 03/13/2022 10:50 am CLINICAL HISTORY: Abdominal pain. LLQ abdominal pain COMPARISON: Abdomen Pelvis W Contrast dated 11/07/2020; Abdomen Pelvis W Contrast dated 10/27/2018; Abdomen Pelvis W Contrast dated 03/07/2017 TECHNIQUE: Biphasic CT imaging of the abdomen and pelvis was performed with 100 ml non-ionic IV cont rast. All CT scans are performed using dose optimization technique as appropriate and may include automated exposure control or mA/KV adjustment according to patient size. FINDINGS: Linear atelectasis in both posterior lung bases.Small hiatal hernia. Mild fatty liver is present. The spleen, adrenal glands and kidneys are within normal limits. Atrophy of the pancreatic tail is present. 3.8 x 2.1 cm mass is present in pancreatic head region. No pancre atic ductal dilatation. No bowel obstruction, free air, free fluid or abscess. Small to moderate fat containing ventral herni a. Prominent sigmoid diverticulosis coli without diverticulitis. No evidence of significant lymphade nopathy. Mild anterolisthesis of L5 on S1 is present with a prominent diffuse posterior disc bulge. IMPRESSION: 3.8 cm hypodense mass in the pancreatic head region has enlarged since 2020 comparison. This may represent the neoplastic lesion. Nonemergent MRI of the pancreas would be useful for followu p. Sigmoid diverticulosis coli is present without diverticulitis. Moderate fat containing ventral hernia.
[2022-03-13] MEDS ORDERED: MORPHINE 4 MG/ML SYR ONE (12:49)
[2022-03-13] MEDS ORDERED: METOCLOPRAMIDE 10 MG/2mL INJ ONE (12:50)
[2022-03-13] MEDS ORDERED: NA CHLORIDE 0.9% ONE (12:50)
[2022-03-13 12:57] LABS: Urine Blood Trace-intact (Negative); Urine Glucose Negative (Negative); Urine Protein Negative (Negative); Urine pH 5.5 (5.0-7.0)
[2022-03-13] MEDS ORDERED: POTASSIUM CL SA 10 MEQ TAB PO ONE (13:59)
--- NOTE | 2022-03-13 15:00 | EDPHYS ---
Physician Documentation [facility] Name: Caridad Chadwick Age: 86 yrs Sex: Female : 1935 Arrival Date: 03/13/2022 Time: 08:15 Bed 2 Private MD: DIANA Physician [place] HPI: 03/13 08:23 This 86 yrs old Female presents to ER via EMS with complaints of abdominal pain, body jmm aches. 08:23 The patient presents with abdominal pain. Onset: The symptoms/episode began/occurred jmm gradually, 2 day(s) ago. The symptoms. Associated signs and symptoms: Pertinent positives: nausea and vomiting, Pertinent negatives: fever. The symptoms are described as achy. Is an 86-year-old female with history of diabetes mellitus, diverticulitis that presents emerged part with complaints of generalized abdominal pain, 2 episodes of vomiting. Patient also complains of arm pain which she attributes to her osteoarthritis. Denies diarrhea. States she has not been able to eat since yesterday.. Historical: - Allergies: 08:17 codeine sulfate; erickson - Home Meds: 08:55 carvedilol 12.5 mg oral tab 1 tab 2 times per day [Active]; metformin 500 mg Oral tab 1 erickson tab 2 times per day [Active]; prednisone 5 mg/mL Oral conc once daily [Active]; duloxetine 30 mg oral cpDR 1 cap once daily [Active]; hydroxychloroquine 200 mg oral tab 1 tab once daily [Active]; levothyroxine 100 mcg cap 1 cap once daily [Active]; olmesartan 20 mg oral tab 1 tab once daily [Active]; sodium bicarbonate 325 mg Oral tab [Active]; Probiotic 20 billion cell oral cap [Active]; rosuvastatin 5 mg oral cpSP 1 cap at bedtime [Active]; - PMHx: 08:17 C DIFF; Cyst on pancreas; Diabetes - NIDDM; Diverticulitis; GERD; Hypertension; erickson Hypothyroidism; Rheumatoid Arthritis; - Immunization history:: Adult Immunizations up to date. - Social history:: Smoking status: Patient denies any tobacco usage or history of. ROS: 08:23 Cardiovascular: Negative for chest pain, palpitations, and edema, Respiratory: Negative jmm for shortness of breath, cough, wheezing, and pleuritic chest pain. 08:23 Constitutional: Positive for body aches, chills, fatigue. 08:23 Abdomen/GI: Positive for abdominal pain, nausea and vomiting. 08:23 MS/extremity: Positive for pain. 08:23 All other systems are negative. Exam: 08:23 Constitutional: This is a well developed, well nourished patient who is awake, alert, jmm and in no acute distress. Head/Face: atraumatic. Eyes: EOMI, no conjunctival erythema appreciated ENT: Moist Mucus Membranes Neck: Trachea midline, Supple Chest/axilla: Normal chest wall appearance and motion. Cardiovascular: Regular rate and rhythm. No edema appreciated Respiratory: Normal respirations, no respiratory distress appreciated Abdomen/GI: Non distended, soft Back: Normal ROM Skin: General appearance color normal MS/ Extremity: Moves all extremities, no obvious deformities appreciated, no edema noted to the lower extremities Neuro: Awake and alert Psych: Behavior is normal, Mood is normal, Patient is cooperative and pleasant 08:23 Abdomen/GI: Inspection: Bowel sounds: normal, Palpation: soft, mild abdominal tenderness, in the right upper quadrant, left upper quadrant, right lower quadrant and left lower quadrant, mass, that is nontender, of the left lower quadrant. Vital Signs: 08:15 BP 133 / 83; Pulse 84; Resp 19; Temp 98.7; Pulse Ox 94% on R/A; Weight 66.22 kg; Height erickson 5 ft. 1 in. (154.94 cm); 10:08 BP 139 / 92; Pulse 76; Resp 18; Pulse Ox 94% on R/A; erickson 13:04 BP 137 / 83; Pulse 80; Resp 18; Pulse Ox 96% on R/A; erickson 19:48 BP 149 / 77; Pulse 69; Resp 17; Pulse Ox 98% on 3 lpm NC; ke1 08:15 Body Mass Index 27.59 (66.22 kg, 154.94 cm) erickson MDM: 08:23 Patient medically screened. [facility] 14:59 Data reviewed: vital signs, nurses notes. qi 16:06 ED course: I initially discussed the patient with Dr. Abernathy whom recommended a trial of jmm p.o. and IV fluids electrolyte replacement. Patient was unable to tolerate p.o. challenge. I contacted Dr. Abernathy again whom accepted the patient to his service.. 16:07 Counseling: I had a detailed discussion with the patient and/or guardian regarding: the [facility] historical points, exam findings, and any diagnostic results supporting the discharge/admit diagnosis, lab results, radiology results, the need for further work-up and treatment in the hospital. 03/13 08:25 Order name: Basic Metabolic Panel; Complete Time: 09:18 [facility] 03/13 08:25 Order name: CBC with Diff; Complete Time: 08:46 [facility] 03/13 08:25 Order name: LFT's; Complete Time: 09:18 [facility] 03/13 08:25 Order name: Magnesium; Complete Time: 09:18 [facility] 03/13 08:25 Order name: NT PRO-BNP; Complete Time: 09:18 [facility] 03/13 08:25 Order name: PT-INR; Complete Time: 08:52 [facility] 03/13 08:25 Order name: Troponin HS; Complete Time: 09:18 [facility] 03/13 08:26 Order name: SARS-COV-2 RT PCR (Document "Date of Onset" if Symptomatic); Complete Time: [facility] 10:03/13 08:27 Order name: Flu; Complete Time: 09:47 [facility] 03/13 08:27 Order name: Lipase; Complete Time: 09:18 [facility] 03/13 12:57 Order name: Urine Dipstick-Ancillary; Complete Time: 12:59 [facility] 03/13 16:15 Order name: Basic Metabolic Panel [facility] 03/13 16:15 Order name: Basic Metabolic Panel [facility] 03/13 16:15 Order name: CBC with Automated Diff [facility] 03/13 08:25 Order name: XRAY Chest (1 view); Complete Time: 09:47 [facility] 03/13 10:06 Order name: CT Abd/Pelvis - IV Contrast Only; Complete Time: 11:08 [facility] 03/13 16:15 Order name: CBC with Automated Diff [facility] 03/13 16:15 Order name: Lipase [facility] 03/13 16:15 Order name: Lipase [facility] 03/13 16:15 Order name: Liver (Hepatic) Function [facility] 03/13 16:15 Order name: Liver (Hepatic) Function [facility] 03/13 08:25 Order name: EKG; Complete Time: 08:26 [facility] 03/13 08:25 Order name: Cardiac monitoring; Complete Time: 08:37 [facility] 03/13 08:25 Order name: EKG - Nurse/Tech; Complete Time: 08:37 [facility] 03/13 08:25 Order name: IV Saline Lock; Complete Time: 08:37 [facility] 03/13 08:25 Order name: Labs collected and sent; Complete Time: 08:37 [facility] 03/13 08:25 Order name: O2 Per Protocol; Complete Time: 08:38 [facility] 03/13 08:25 Order name: O2 Sat Monitoring; Complete Time: 08:38 [facility] 03/13 12:31 Order name: PO challenge; Complete Time: 13:52 [facility] 03/13 16:15 Order name: NPO EDMS Administered Medications: 08:37 Drug: fentaNYL (PF) 25 mcg Route: IVP; Site: right hand; [facility] 09:32 Follow up: Response: No adverse reaction erickson 09:32 Drug: NS 0.9% 500 ml Route: IV; Rate: bolus; Site: right hand; erickson 12:43 CANCELLED (Duplicate Order): fentaNYL (PF) 25 mcg IVP once [facility] 13:00 Drug: morphine 4 mg Route: IVP; Infused Over: 4 mins; Site: right antecubital; erickson 13:02 Follow up: Response: No adverse reaction erickson 13:00 Drug: Reglan (metoCLOPramide) 10 mg Route: IVP; Site: right antecubital; erickson 13:02 Follow up: Response: No adverse reaction erickson 13:00 Drug: NS 0.9% 250 ml Route: IV; Rate: bolus; Site: right antecubital; erickson 14:03 Drug: Potassium Chloride Liquid 40 mEq Route: PO; erickson 14:03 Follow up: Response: No adverse reaction erickson 14:57 Drug: NS 0.9% 500 ml Route: IV; Rate: bolus; Site: right antecubital; erickson 14:57 Follow up: IV Status: Completed infusion erickson 16:30 Drug: Rocephin (cefTRIAXone) 1 grams Route: IV; Rate: calculated rate; Site: right erickson antecubital; 16:30 Follow up: IV Status: Completed infusion erickson Disposition Summary: 03/13/22 16:08 Hospitalization Ordered Hospitalization Status: Inpatient Admission qi Provider: Henry Abernathy Location: Telemetry/MedSurg (Inpatient)(03/13/22 16:08) qi Condition: Stable(03/13/22 16:08) [facility] Problem: new [facility] Symptoms: are unchanged [facility] Bed/Room Type: Standard [facility] Room Assignment: 204(03/13/22 19:23) Diagnosis - Hypokalemia [facility] - Hypo-osmolality and hyponatremia [facility] - Dehydration [facility] - Vomiting(03/13/22 16:09) [facility] Forms: - Medication Reconciliation Form [facility] - SBAR form [facility] Signatures: Dispatcher [employer] EDSouth Gamez MD MD cha Mickail, Joel, PA PA [facility] Gabbi Maher, RN RN Falguni Albright RN RN jh6 Anu Valladares RN RN erickson Corrections: (The following items were deleted from the chart) 12:43 12:43 fentaNYL (PF) 25 mcg IVP once ordered. [facility] 15:03 14:59 Home [facility] 15:03 14:59 Stable [facility] 15:03 14:59 Vomiting [facility] 15:03 14:59 Abdominal pain, unspecified [facility] 15:03 14:59 UTI/ Urinary tract infection, site not specified [facility] 16:05 15:51 This 86 yrs old Female presents to ER via EMS with complaints of Abdominal pain. [facility] 16:05 16:03 Onset: The symptoms/episode began/occurred gradually, [facility] 16:07 14:59 Counseling: I had a detailed discussion with the patient and/or guardian [facility] regarding: the historical points, exam findings, and any diagnostic results supporting the discharge/admit diagnosis, lab results, the need for outpatient follow up, to return to the emergency department if symptoms worsen or persist or if there are any questions or concerns that arise at home, [facility] 16:08 [facility]
--- NOTE | 2022-03-13 15:00 | ER ---
Nurse's Notes [facility] Name: Caridad Chadwick Age: 86 yrs Sex: Female : 1935 Arrival Date: 03/13/2022 Time: 08:15 Bed 2 Private MD: Diagnosis: Hypokalemia;Hypo-osmolality and hyponatremia;Dehydration;Vomiting Presentation: 03/13 08:15 Chief complaint: Patient states: pt reports chronic arthritis having severe pain on erickson left arm that radiates up to head. pt reports N/V x1 day. Coronavirus screen: Vaccine status: Patient reports receiving the 2nd dose of the covid vaccine. Ebola Screen: Patient denies travel to an Ebola-affected area in the 21 days before illness onset. Initial Sepsis Screen: Does the patient meet any 2 criteria? No. Patient's initial sepsis screen is negative. Does the patient have a suspected source of infection? No. Patient's initial sepsis screen is negative. Risk Assessment: Do you want to hurt yourself or someone else? Patient reports no desire to harm self or others. Onset of symptoms was March 12, 2022. 08:15 Method Of Arrival: EMS: [facility] 08:15 Acuity: ZOIE 3 erickson Triage Assessment: 08:17 General: Appears uncomfortable, Behavior is cooperative. Pain: Complains of pain in erickson abdomen and left arm. GI: Reports nausea, vomiting. Musculoskeletal: Range of motion: limited in left arm Reports pain in left arm Pain is 7 out of 10 on a pain scale. Historical: - Allergies: 08:17 codeine sulfate; erickson - Home Meds: 08:55 carvedilol 12.5 mg oral tab 1 tab 2 times per day [Active]; metformin 500 mg Oral tab 1 erickson tab 2 times per day [Active]; prednisone 5 mg/mL Oral conc once daily [Active]; duloxetine 30 mg oral cpDR 1 cap once daily [Active]; hydroxychloroquine 200 mg oral tab 1 tab once daily [Active]; levothyroxine 100 mcg cap 1 cap once daily [Active]; olmesartan 20 mg oral tab 1 tab once daily [Active]; sodium bicarbonate 325 mg Oral tab [Active]; Probiotic 20 billion cell oral cap [Active]; rosuvastatin 5 mg oral cpSP 1 cap at bedtime [Active]; - PMHx: 08:17 C DIFF; Cyst on pancreas; Diabetes - NIDDM; Diverticulitis; GERD; Hypertension; erickson Hypothyroidism; Rheumatoid Arthritis; - Immunization history:: Adult Immunizations up to date. - Social history:: Smoking status: Patient denies any tobacco usage or history of. Screenin:19 Abuse screen: Denies threats or abuse. Denies injuries from another. Nutritional erickson screening: No deficits noted. Tuberculosis screening: No symptoms or risk factors identified. Fall Risk IV access (20 points). Assessment: 08:25 General: Appears uncomfortable, Behavior is cooperative. Pain: Complains of pain in erickson abdomen and left arm. GI: Reports nausea, vomiting. Musculoskeletal: Range of motion: limited in left arm. Vital Signs: 08:15 BP 133 / 83; Pulse 84; Resp 19; Temp 98.7; Pulse Ox 94% on R/A; Weight 66.22 kg; Height erickson 5 ft. 1 in. (154.94 cm); 10:08 BP 139 / 92; Pulse 76; Resp 18; Pulse Ox 94% on R/A; erickson 13:04 BP 137 / 83; Pulse 80; Resp 18; Pulse Ox 96% on R/A; erickson 19:48 BP 149 / 77; Pulse 69; Resp 17; Pulse Ox 98% on 3 lpm NC; ke1 08:15 Body Mass Index 27.59 (66.22 kg, 154.94 cm) erickson ED Course: 08:15 Patient arrived in ED. erickson 08:17 Triage completed. erickson 08:17 Arm band placed on. erickson 08:19 Patient has correct armband on for positive identification. Bed in low position. erickson 08:19 No provider procedures requiring assistance completed. Maintain EMS IV. Gauge \T\ site: erickson 20g right hand. 08:20 Taran Whitt PA is PHCP. [facility] 08:20 [place] MD is Attending Physician. [facility] 08:25 Anu Valladares, RN is Primary Nurse. erickson 09:43 XRAY Chest (1 view) In Process Unspecified. EDMS 10:52 CT Abd/Pelvis - IV Contrast Only In Process Unspecified. EDMS 16:07 Henry Abernathy MD is Hospitalizing Provider. [facility] Administered Medications: 08:37 Drug: fentaNYL (PF) 25 mcg Route: IVP; Site: right hand; jh6 09:32 Follow up: Response: No adverse reaction erickson 09:32 Drug: NS 0.9% 500 ml Route: IV; Rate: bolus; Site: right hand; erickson 12:43 CANCELLED (Duplicate Order): fentaNYL (PF) 25 mcg IVP once [facility] 13:00 Drug: morphine 4 mg Route: IVP; Infused Over: 4 mins; Site: right antecubital; erickson 13:02 Follow up: Response: No adverse reaction erickson 13:00 Drug: Reglan (metoCLOPramide) 10 mg Route: IVP; Site: right antecubital; erickson 13:02 Follow up: Response: No adverse reaction erickson 13:00 Drug: NS 0.9% 250 ml Route: IV; Rate: bolus; Site: right antecubital; erickson 14:03 Drug: Potassium Chloride Liquid 40 mEq Route: PO; erickson 14:03 Follow up: Response: No adverse reaction erickson 14:57 Drug: NS 0.9% 500 ml Route: IV; Rate: bolus; Site: right antecubital; erickson 14:57 Follow up: IV Status: Completed infusion erickson 16:30 Drug: Rocephin (cefTRIAXone) 1 grams Route: IV; Rate: calculated rate; Site: right erickson antecubital; 16:30 Follow up: IV Status: Completed infusion erickson Medication: 08:20 VIS not applicable for this client. Outcome: 14:59 Discharge ordered by . [facility] 16:08 Decision to Hospitalize by Provider. [facility] 21:03 Patient left the ED. bb Signatures: Dispatcher [employer] EDMS Taran Whitt PA PA [facility] Jojo Carter RN RN Falguni Albright RN RN jh6 Anu Valladares RN RN ha Ebrottie, Kouassi, RN RN ke1
[2022-03-13] MEDS ORDERED: ONDANSETRON 4 MG/2 ML VIAL IV PRN (16:12)
[2022-03-13] MEDS ORDERED: CEFTRIAXONE 1000 MG/VIAL ONE (16:28)
[2022-03-13] MEDS: D5 0.45 NS 1,000 ML IV SCH ×2 (17:00→21:44)
[2022-03-13] MEDS ORDERED: ENOXAPARIN 30 MG/0.3 ML SQ ONE (18:46)
[2022-03-13 21:08] VITALS: BMI 26.2
[2022-03-13] MEDS: METHYLPREDNISOLONE 40 MG INJ IV SCH (21:44)
[2022-03-13] MEDS ORDERED: TRAMADOL HCL 50 MG TAB PO PRN (22:49)
[2022-03-13] MEDS: ACETAMINOPHEN 500 MG TAB PO PRN (22:54)
[2022-03-13] MEDS ORDERED: SODIUM CHLORIDE 0.9% 10ML INJ IV PRN (23:12)
[2022-03-14] MEDS: D5 0.45 NS 1,000 ML IV SCH ×2 (00:09→06:22)
[2022-03-14 01:27] VITALS: O2SAT 97
--- NOTE | 2022-03-14 03:35 | HP ---
Date of Admission: 03/13/2022 Chief Complaint: Nausea, vomiting, diarrhea, and abdominal pain. History Of Present Illness: This is an 86-year-old very pleasant female patient who came into the em ergency room with 2-3 days history of some vague abdominal pain, nausea, vomiting and diarrhea. Zachary es any fever, chills. No blood in stool. These symptoms have affected her appetite and oral intake of food and liquids and she is feeling very weak. With all these complaints, she came into the emerg ency room today. After she was evaluated, she was admitted to the hospital. I saw her in the emerge ncy room this evening. Allergies: TO CODEINE. Review of Systems: GI: As mentioned above. Constitutional: As mentioned above. All other systems reviewed and negative. Medications: List reviewed. Physical Examination: Vital Signs: When she came into the emergency room, weight 66.2 pounds, oxygen saturation 94%, tempe rature 98.7, respiratory rate 19, pulse 84, blood pressure 133/83. General: Awake, alert, oriented, not in distress. HEENT: Head atraumatic, normocephalic. Conjunctivae nonerythematous. Sclerae white. Mouth, no thr ush or edema noted. Ears/Nose, no mass, lesion, discharge noted. Neck: Supple. No JVD, lymph nodes, bruit, thyromegaly noted. Lungs: Bilateral good equal air entry. Clear to auscultation. No rhonchi. No rales. Heart: Normal heart sounds, no murmur or gallop. Abdomen: Soft, bowel sounds normal. No guarding, rigidity, tenderness, mass, hepatosplenomegaly, dis tention, or bruit noted. Extremities: No leg edema. No calf tenderness. Skin: No rash, ulcer, cellulitis. Lymphatics: No lymph node enlargement in neck, supraclavicular, infraclavicular region. Neuro: No focal neurological deficit. Chest: Unremarkable. External Genitalia: Deferred. Rectal: Deferred. Laboratory Data: White count 7.1, hemoglobin 12.4, platelets 239. Sodium 130, potassium 3.3, chlori de 97, bicarb 24, BUN 19, creatinine 0.99, glucose 115, magnesium 1.7. Liver function tests unremark able. Lipase 84, albumin 2.8, proBNP 574. Troponin 10.6. Urinalysis; positive nitrite, trace blood . COVID-19 test negative. CAT scan of the abdomen and pelvis done with contrast in the emergency ro om shows 3.8 cm hypodense mass in pancreatic region has enlarged since 2020. This may represent a ne oplastic lesion. Sigmoid diverticulosis without diverticulitis. Moderate fat-containing ventral her lucila. Chest x-ray, no acute cardiopulmonary changes. Impression: 1.Abdominal pain. 2.Pancreatic mass. 3.Hypokalemia. 4.Hypomagnesemia. 5.Hyponatremia. Plan: We will go ahead and admit the patient to hospital for further evaluation and management of th is problem. The patient is appropriate for inpatient and is expected to spend 2 midnights in the [facility]. We will give her IV fluid and give her IV Protonix. DVT prophylaxis will be given per order. She is on chronic steroid therapy with prednisone. She takes 10 mg daily. She has not taken her p rednisone today and we will give her IV Solu-Medrol today 40 mg every 8 hours. I will see her tomorr ow morning for followup. In the past, the patient had workup done for this pancreatic mass by a spec ialist in [place] and she will be encouraged to follow up with this specialist upon discharge. I ronn l see her tomorrow morning for followup. NIMA/MODL Voice ID: [id number]
[2022-03-14] MEDS: METHYLPREDNISOLONE 40 MG INJ IV SCH (03:55)
[2022-03-14 04:46] LABS: Absolute Lymphocytes (CBC) 0.6 K/uL (0.7-4.9); Hematocrit 34.9 % (36.0-45.0); Lymphocytes % 7.7 % (15.3-44.8); MPV 7.5 fL (7.6-11.3); RBC Red Blood Cell Count 3.81 M/uL (3.86-4.86)
[2022-03-14 05:03] LABS: Albumin 2.8 g/dL (3.4-5.0); Bilirubin Direct 0.1 mg/dL (0-0.2); Bilirubin Total 0.3 mg/dL (0.2-1.0); Potassium 4.1 mmol/L (3.5-5.1); Protein, Total 6.2 g/dL (6.4-8.2)
[2022-03-14] MEDS ORDERED: MAGNESIUM SULFATE 1 gm IVPB 1 GM/100 ML BAG IV ONE (07:00)
[2022-03-14] MEDS ORDERED: GLUCAGON 1 MG/VIAL IM PRN (08:31)
[2022-03-14] MEDS ORDERED: D10W 250 ML BAG IV PRN (08:37)
[2022-03-14] MEDS ORDERED: HOME MED 1 EA UNK (Olmesartan Medoxomil [Olmesartan Medoxomil] 40 MG Tablet) PO SCH (09:00)
[2022-03-14] MEDS: PANTOPRAZOLE 40 MG INJ IVP SCH (09:12)
[2022-03-14] MEDS: DULOXETINE 30 MG CAP PO SCH (09:12)
[2022-03-14] MEDS: SODIUM BICARB 325 MG TAB PO SCH (09:12)
[2022-03-14] MEDS: predniSONE 5 MG TAB PO SCH (09:12)
[2022-03-14] MEDS: carvediloL 12.5 MG TAB PO SCH ×2 (09:12→21:41)
[2022-03-14] MEDS: VALSARTAN 160 MG TAB PO SCH (10:42)
[2022-03-14] MEDS: HYDROXYCHLOROQUINE 200MG TAB PO SCH (10:42)
[2022-03-14] MEDS: NA CHLORIDE 0.9% 1,000 ML IV SCH (10:44)
[2022-03-14] MEDS: INSULIN -REGULAR HUMAN 50 UNIT/0.5 ML ML SQ SCH ×3 (12:41→21:00)
[2022-03-14] MEDS ORDERED: ENOXAPARIN 30 MG/0.3 ML SQ SCH (17:00)
--- NOTE | 2022-03-14 18:01 | EKG ---
Test Date: 2022-03-13 Test Time: 08:34:16 Day Worker: DANIEL MEASUREMENT RESULTS: Intervals: Rate: 81 MO: 160 QRSD: 88 QT: 378 QTc: 439 [place]: P: 22 MO: 160 QRS: -54 T: 58 INTERPRETIVE STATEMENTS: Sinus rhythm with premature atrial complexes Left axis deviation Anterior infarct, age undetermined Abnormal ECG Compared to ECG 09/30/2021 17:25:34 Atrial premature complex(es) now present Left-axis deviation now present Left anterior fascicular block no longer present Myocardial infarct finding still present Electronically Signed On 03-14-22 17:58:31 CDT by Rigo Gomez
--- NOTE | 2022-03-14 18:55 | RAD REPORT ---
EXAM DESCRIPTION: MRI - Mri Abdomen W/Wo Cont - 03/14/2022 3:48 pm CLINICAL HISTORY: pancreatic neoplasm COMPARISON: Abdomen Pelvis W Contrast dated 03/13/2022; Abdomen Pelvis W Contrast dated 11/07/2020 FINDINGS: Multiphase, multisequence MR imaging was obtained of the abdomen with and without contrast . Simple appearing cystic pancreatic head lesion measuring 3.1 x 2 cm. There are additional pancreatic lesions including a pancreatic body lesion measuring 1.3 cm and a pancreatic body/tail lesion measuri ng 8 millimeters. None of the lesions have any appreciable enhancement or internal complexity. The pa ncreas is atrophic. No pancreatic ductal dilatation. T2 hyperintense lesion in the hepatic dome is likely benign. Hepatic steatosis is noted. No suspiciou s liver lesions are identified. Right upper pole right renal cyst. Spleen is within normal limits. Th e stomach is within normal limits. No aortic aneurysm is identified. No retroperitoneal lymphadenopat hy. No adrenal lesions. IMPRESSION: Three cystic pancreatic lesions without any concerning imaging features such as enhancem ent or pancreatic ductal dilatation. 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 Though the pancreatic head lesion has increased in size since 11/07/2020, no aggressive imaging features are identified. This can probably be safely followed with 12-24 month MRCP.
[2022-03-15] MEDS: ACETAMINOPHEN 500 MG TAB PO PRN (01:24)
[2022-03-15 05:03] LABS: Potassium 3.8 mmol/L (3.5-5.1)
[2022-03-15] MEDS ORDERED: LEVOTHYROXINE SOD 0.1 MG TAB PO SCH (06:30)
[2022-03-15] MEDS: NA CHLORIDE 0.9% 1,000 ML IV SCH (06:35)
[2022-03-15] MEDS: INSULIN -REGULAR HUMAN 50 UNIT/0.5 ML ML SQ SCH (07:30)
--- NOTE | 2022-03-15 08:16 | PN ---
Date of Progress Note: 03/14/2022 Subjective: Followup. No new complaints or problems reported by the patient. She continues to have vague complaints of just not feeling good, but denies any nausea or vomiting overnight. No diarrhea overnight. The patient's says she has been having diarrhea for the last 2-3 months. Objective: Vital Signs: Reviewed. HEENT: Examination unremarkable. Lungs: Clear to auscultation. Heart: Sounds normal. Abdomen: Soft. Bowel sounds normal. No guarding, rigidity, tenderness, distention. EXTREMITIES: No leg edema. Impression: 1.Abdominal pain. 2.Pancreatic mass. Plan: I did discuss with her regarding this CAT scan finding and the patient and her . They both informed me that Dr. Estrada had referred her to see this specialist in [place] and she had a pro cedure done and her cyst was removed according to what the patient and her say which I am not sure about that, but in any case, they were both informed that this area of pancreatic neoplasm whet her it is cyst versus mass has gotten bigger compared to last CAT scan and I have suggested further w ith this specialist in [place] and they do not know who that particular specialist is, so they will g o to Dr. Estrada. I have advised them go to Dr. Estrada once they get out of the hospital _ . I also have communicated with Dr. Estrada regarding all these details of current CAT scan findings and he is willing to assist the patient with this which I agreed. I have advised her not to take metformin anymore to see whether that is in any way causing or contributing to her d iarrhea problem. We will go ahead and do MRI of her abdomen today for further evaluation. Possible discharge. NIMA/MODL Voice ID: [id number] Report ID: [id number]
[2022-03-15 08:27] VITALS: TEMP 97.1
[2022-03-15] MEDS ORDERED: POTASSIUM CL SA 10 MEQ TAB PO ONE (09:00)
[2022-03-15] MEDS: SODIUM BICARB 325 MG TAB PO SCH (09:02)
[2022-03-15] MEDS: PANTOPRAZOLE 40 MG INJ IVP SCH (09:03)
[2022-03-15] MEDS: VALSARTAN 160 MG TAB PO SCH (09:03)
[2022-03-15] MEDS: HYDROXYCHLOROQUINE 200MG TAB PO SCH (09:03)
[2022-03-15] MEDS: DULOXETINE 30 MG CAP PO SCH (09:03)
[2022-03-15] MEDS: predniSONE 5 MG TAB PO SCH (09:03)
[2022-03-15] MEDS: carvediloL 12.5 MG TAB PO SCH (09:04)
[2022-03-15 09:08] VITALS: BP 159/66
--- NOTE | 2022-03-15 10:56 | DS ---
Date of Discharge: 03/15/2022 Disposition: Discharged to go home. Physical Examination: HEENT: Unremarkable. Lungs: Clear to auscultation. Heart: Sounds normal. Abdomen: Soft. Bowel sounds normoactive. No guarding, rigidity, tenderness, or distention. Extremities: No leg edema. Discharge Medications And Instructions: 1.Continue all prior home medications except stop metformin. 2.Follow up at my office next week and follow up with Dr. Estrada a week after. 3.The patient to take copy of MRI of abdomen results to Dr. Estrada and nurse was instructed to get c opy of CAT scan abdomen and MRI abdomen, CT from Radiology Department given to the patient and for th e patient to keep it at home and take it with her when she goes to [place] to see specialist and Dr. Estrada will assist her with such referral. Laboratory Data: Labs done during this hospitalization; MRI abdomen with contrast done yesterday wendy ws evidence of 3 pancreatic lesions without any concerning imaging features and this may represent in traductal papillary mucinous neoplasm. Pancreatic head lesion has increased in size since November 07. No aggressive imaging features identified. CAT scan of abdomen shows 3.8 cm hypodense mass in t he pancreatic head region, which has enlarged since 2020 comparison. Diverticulosis without divertic ulitis, moderate fat containing ventral hernia. Chest x-ray, no acute cardiopulmonary changes. Bloo d work upon admission on 03/13/2022; white count 7.1, hemoglobin 12.4, platelets 239 and yesterday; w benjamin count 7.3, hemoglobin 12.1, platelets 245. Upon admission; sodium 130, potassium 3.3, chloride 97, bicarb 24, BUN 19, creatinine 0.99, glucose 115, magnesium 1.7. Liver function tests unremarkabl e. Yesterday; sodium 130, potassium 4.1, magnesium was 1.6 yesterday. Today; sodium 133, potassium 3.8, chloride 102, bicarb 25, BUN 15, creatinine 0.92, glucose 174, magnesium 2. Hospital Course: This is an 86-year-old female patient admitted to the hospital with nausea, vomitin g, diarrhea, and abdominal pain. Please see dictated H and P for more information. After the patien hanna was evaluated in the emergency room, she was admitted to the hospital. Her blood work was unremark able except low potassium, low magnesium and both of those were corrected. We did not find any acute findings on the CAT scan of the abdomen. Her home medications were continued except we decided to d iscontinue her metformin. Physical Therapy was consulted to assist her with ambulation. Today, she was noted to be ambulating very well using her walker in the hallway with Physical Therapy and she wi ll continue to walk at home with her walker. Overall, this morning she feels a lot better. Does not have any other specific complaints and her CAT scan and MRI results reviewed with her. I have given her a copy of MRI report for her to take it to Dr. Estrada and yesterday I also contacted Dr. Estrada and discussed all these results with him and recommended for him to assist the patient with referral to see this specialist in [place], who had seen her last year and Dr. Estrada will be willing to do so on outpatient basis, but the patient will need to see him at his office and I have informed the jaycob ent to follow up at his office. In place of metformin if she needs different diabetic medication, we will make that decision on outpatient basis. Final Diagnoses: 1.Abdominal pain. 2.Pancreatic cyst. 3.Hypokalemia. 4.Hypomagnesemia. 5.Hyponatremia. 6.Hypertension. 7.Hyperlipidemia. 8.Type 2 diabetes mellitus. NIMA/MODL Voice ID: [id number] Report ID: [id number]
== END 2022-03-15 10:50 | disposition home or self-care (01) | DRG 375 ==
LOC: ER 08:13 → ERHOLD 16:12 → 2ND 20:43
PROVIDERS: ADMIT Internal Medicine; ATTEND Internal Medicine
DX: D37.8 Neoplasm of uncertain behavior of other specified digestive organs (principal); E87.1 Hypo-osmolality and hyponatremia; K43.9 Ventral hernia without obstruction or gangrene; E87.6 Hypokalemia; E83.42 Hypomagnesemia; E11.9 Type 2 diabetes mellitus without complications; I10 Essential (primary) hypertension; K21.9 Gastro-esophageal reflux disease without esophagitis; E03.9 Hypothyroidism, unspecified; M06.9 Rheumatoid arthritis, unspecified; Z79.52 Long term (current) use of systemic steroids; Z20.822 Contact with and (suspected) exposure to COVID-19
CPT/HCPCS: 36415; 71045; 74177; 74183; 80048; 80076; 81003; 82947; 83690; 83735; 83880; 84484; 85025; 85610; 87804; 93005; 97116; 97161; 99283; A9577; C9113; J1650; J1815; J2765; J2920; J3010; J3475; J7030; J7050; J7512; J7799; Q9967; U0003

== ENCOUNTER 2022-03-20 14:02 | Emergency (ER) | payer OTHER ==
--- OUTSIDE RECORDS SUMMARY | 2022-03-20 14:05 | XMS REPORT | Clinical Summary ---
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, including shoulder 06/28/2021 Telephone Pain Medicine Chyna Velazquez MD 06/27/2021 Telephone Pain Medicine Rina mSith RN 06/21/2021 Office Visit Dermatology Chyna Velazquez, [...] Chyna Velazquez Services MD 06/21/2021 Travel after 03/20/2021 Surgical History Surgery Date Site/Laterality Comments COLONOSCOPY [...] 09/20/2021 9:52 notified Fransisca juárez RN AM [employer] Pulse 67 09/20/2021 9:52 AM [employer] Temperature 36.6 C (97.9 F) 09/20/2021 9:52 AM [employer] Respiratory Rate 18 09/20/2021 9:51 AM [employer] Oxygen Saturation 96% 08/23/2021 11:23 AM CDT Inhaled Oxygen - - Concentration Weight 65.9 kg (145 lb 4.5 09/20/2021 9:51 oz) AM [employer] Height 148.5 cm (4' 10.47") 06/21/2021 9:40 AM CDT Body Mass Index 29.88 06/21/2021 9:40 AM CDT Plan of Treatment Date Type Specialty Care Team Description 06/30/2022 Office Visit Dermatology Chyna Velazquez M D [address] [place], [place] [address] (Wo rk) Health Maintenance Due Date Last Done Comments COVID-19 Vaccination (1) 1940 Procedures Procedure Name Priority Date/Time Associated Comments Diagnosis PATHOLOGY BIOPSY Routine 09/20/2021 10:18 Neoplasm of Results for this INTERPRETATION AM [employer] uncertain behavior procedu re are in [...] in of skin the results section. after 03/20/2021 Results Pathology Biopsy Interpretation (09/20/2021 10:18 AM [employer])Only the most recent of 3 resultswithin the time period is included. Component Value Ref Test Analysis Performed Pathologis t Range Method Time At Signature Addendum 1 Multiple additional deeper t issue sections have been cut and examined. 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 1:25 PM signed by Junior See comment. [employer] Nurys Lima on 09/21/2021 at 12:18 PM Comment An additional 09/23/2021 [facility] biopsy may be 1:25 PM considered should [employer] this lesion fail to respond to conservative therapy. Gross A: 09/23/2021 [facility] Description Skin, r lateral submandibula r jawline - 4-5 mm pink scaly thin papule - ?scc in situ: 1 hdz skin shave, 0.6 x 0.4 x 0.1 cm. The margins are inked, bisected, entirely submitted in A1. ET 1:25 P M [employer]ER Disclaimer "Some tests 09/23/2021 [facility] reported here may 1:25 PM have been [employer] developed and performance characteristics determined by [facility]. These tests have not been specifically cleared or approved by the U.S. Food and Drug Administration. If applicable, controls were reviewed and showed appropriate reactivity." Specimen Anatomical Collection Method Collection Time Receive d Time (Source) Location / / Volume Laterality Tissue (Skin) 09/20/2021 10:18 09/20/2021 AM [employer] 3:42 PM [employer] Chyna Velazquez MD LAB PATHOLOGY ORDERABLES Performing Organization Address City/State/ZIP Code Phon e Number [facility] [place] [address] [id number] [place] Upper Extremity [employer] [...] with the final report. Kinsey Rosado MD [facility] ORDERABLES after 03/20/2021 Insurance Payer Benefit Plan / Subscriber ID Effective Phone Address T ype Group Dates [employer] MEDICARE [id number] 2021-Prese [address] [address] Medicare HEALTHCARE ADVANTAGE nt [place] [phone] (Home) [place] [address] Caridad Chadwick Personal/Family Self [address] [place] [address] ([place]) [place] [address] Care Teams Group Fitness Assistant Department Head Relationship Specialty Start Date End Date Trav Abernathy MD PCP - External Referring Internal Medicine 06/19/[address] [place] [address] [place] [phone] Chyna Velazquez MD PCP - General Dermatology 06/20/[address] [place] [id number] Kinsey Rosado, PCP - External Follow Up Dermatology 07/04/21 MD Hauser [address] [place] [id number]
--- OUTSIDE RECORDS SUMMARY | 2022-03-20 14:10 | XMS REPORT | Continuity of Care Document ---
:1935 Author Organization [facility] t Address [address] [place] [address] Care Team Providers Name Role Phone ASHLI Primary Care Physician Unavailable RENZO Attending Clinician Unavailable SYSTEM, NOT IN Attending Clinician Unavailable MERVIN PUENTES Attending Clinician Unavailable LUCILLE Attending Clinician Unavailable EMMANUEL Attending Clinician Unavailable DIMA, K.H. Attending Clinician Unavailable Juan Miguel SU, L Attending Clinician Unavailable Jazmin THOMPSON, F Attending Clinician Beverly DELANEY Attending Clinician Dima DELANEY, K.H. Attending Clinician Demetrius DELANEY Attending Clinician DEMETRIUS Attending Clinician Unavailable Ralf SU, A Attending Clinician Unavailable Kenyetta MCKEE S Attending Clinician Amadeo DELANEY Attending Clinician Amy DELANEY Attending Clinician Traci WALSH Attending Clinician Unavailable Feliciano Muller MD Attending Clinician Elin Moran MD Attending Clinician Blanquita Joseph Attending Clinician RENZO Admitting Clinician Unavailable Beverly DELANEY Admitting Clinician Amy DELANEY Admitting Clinician Payers Payer Name Policy Type Policy Number Effective Date Expiration Date S ource [facility] [id number] 2020 [facility] [place] 00:00:00 PPO MEDICARE A B [id number] 1998 00:00:00 [employer] TRS RETIREES [id number] 2010 2010 00:00:00 00:00:00 [facility] MEDICARE [id number] 2021 ADVANTAGE 00:00:00 [employer] PPO I [id number] 2010 00:00:00 [facility] [id number] 2020 2020 00:00:00 00:00:00 Problems Condition Condition Condition Status Onset Resolution Last Treating Co mments Source Name Details Category Date Date Treatment Clinician Date Weakness Weakness Disease Active Unive rs 03-09 ity of 00:00: [place] 00 Medical Branch Chronic Chronic Disease Active [facility] diastolic diastolic 03-09 it[facility] [place] heart heart Medical failure failure Branch Type 2 Type 2 Disease Active [facility] diabetes diabetes 03-09 ity of mellitus mellitus 00:00: [place] without [...] Hyperlipid Disease Active M ethodi emia emia 04-19 st 00:00: Hospita 00 l DM DM [...] Added automatic ally from request for surgery [id number] Spondyloli Spondyloli Disease Active Overview : 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 Added automatic ally from request for surgery [id number] Trochanter Trochanter Disease Active Overview : Methodi ic ic 2-[address] bursitis bursitis 00:00: g of this Hos mario of right of right 00 note l hip hip might be different from the original. 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 with 00:00: Hospita radiculopa radiculopa 00 l thy, thy, lumbar lumbar region region Spondyloli Spondyloli Disease Active 0 M ethodi sthesis of sthesis of 4-10 [...] factor factor Follow-up Follow-up Disease Active Met aniceto examinatio examinatio 05-06 st n n 00:00: Hospita following following 00 [...] NO KNOWN Allergy Active [facility] Family History Family Member Diagnosis Comments Start Date Stop Date Source Natural brother Diabetes [facility] Natural father Lung cancer [facility] Natural mother Old age [facility] Social History Social Habit Start Date Stop Date Quantity Comments Source Exposure to Not sure [facility]-CoV-2 [place] [facility] (event) Branch History SDOH [facility] Alcohol Frequency Hospita l History SDOH [facility] Alcohol Std Hospital Drinks History SDOH [facility] Alcohol Binge Hospital History SDOH 2021-03-08 2021-03-08 17 [facility] 00:00:00 00:00:00 [facility] Alcohol intake 2020-09-17 2020-09-17 .14 /d [facility] 00:00:00 00:00:00 Hospital Alcohol Comment 2019-10-31 2019-10-31 1-2 times a year Met [facility] 00:00:00 00:00:00 Hospital Tobacco use and 2016-05-06 2016-05-06 Smokeless tobacco Me [facility] exposure 00:00:00 00:00:00 non-user Hospital Sex Assigned At [birth year] [facility] 00:00:00 00:00:00 Hospital Smoking Status Start Date Stop Date Source Never smoker [facility] Branch Medications Ordered Filled Start Stop Current Ordering Indication Dosage Frequency Signature Comments Components Source Medication Medication Date Date Medication? Clinician (SIG) Name Name predniSONE Yes [id number] 5mg Take 1 Univers 5 mg tablet 5-27 tablet by ity of 00:00: mouth [place] 00 daily. Medical Branch predniSONE Yes [id number] 5mg Take 1 Univers 5 mg tablet 5-27 tablet by ity of 00:00: mouth [place] 00 daily. Medical Branch Iron-Folic Yes Take by Uni vers Acid-Mv, 5-26 mouth 2 ity of Min Cmb#15 19:33: (two) [place] (CENTRATEX) 14 times Medical 106 mg daily. Branch iron- 1 mg Cap Iron-Folic Yes Take by Uni vers Acid-Mv, 5-26 mouth 2 ity of Min Cmb#15 19:33: (two) [place] (CENTRATEX) 14 times Medical 106 mg daily. Branch iron- 1 mg Cap famciclovir 2020- No 1{tbl} Take 1 U nivers (FAMVIR 5-26 05-26 tablet by ity of ORAL) 17:25: 00:00 mouth 3 [place] 18 :00 (three) Medical times [place] daily. hydrOXYchlo 2020- No 200mg Take 200 [...] mouth ity of capsule 17:25: 00:00 daily. [place] 18 :00 Medical Branch rosuvastati 2020- No 5mg Take 5 mg Univers n (CRESTOR) 5-26 05-26 by mouth ity of 5 mg tablet 17:25: 00:00 at [place] 18 :00 bedtime. Medical Branch carvediloL 2020- No 12.5mg Take 12.5 Univers (COREG) 5-26 05-26 mg by ity of 12.5 mg 17:25: 00:00 mouth 2 [place] tablet 18 :00 (two) Medical times [place] daily with meals. metFORMIN 2020- No 500mg Take 500 Un ignacia 500 mg 5-26 05-26 mg by ity of tablet 17:25: 00:00 mouth 2 [place] 18 :00 (two) Medical times [place] daily with meals. DULoxetine 2020- No 30mg Take 30 mg Univers 30 mg 5-26 05-26 by mouth ity of capsule 17:25: 00:00 daily. [place] 18 :00 Medical Branch olmesartan 2020- No 40mg Take 40 mg Univers 40 mg 5-26 05-26 by mouth ity of tablet 17:25: 00:00 daily. [place] 18 :00 Medical Branch famciclovir 2020- No [...] mouth ity of capsule 17:25: 00:00 daily. [place] 18 :00 Medical Branch rosuvastati 2020- No 5mg Take 5 mg Univers n (CRESTOR) 5-26 05-26 by mouth ity of 5 mg tablet 17:25: 00:00 at [place] 18 :00 bedtime. Medical Branch carvediloL 2020- No 12.5mg Take 12.5 Univers (COREG) 5-26 05-26 mg by ity of 12.5 mg 17:25: 00:00 mouth 2 [place] tablet 18 :00 (two) Medical times Branch daily with meals. famciclovir 2020- No 1{tbl} Take 1 U nivers (FAMVIR 5-26 05-26 tablet by ity of ORAL) 17:25: 00:00 mouth 3 [place] 18 :00 (three) Medical times Branch daily. [...] times Branch daily with meals. hydrOXYchlo Yes [id number] 200mg Take 1 Univers roQUINE 5-26 tablet by ity of (PLAQUENIL) 00:00: mouth [place] 200 mg 00 daily. Medical tablet Branch rosuvastati Yes [id number] 5mg Take 1 Univers n (CRESTOR) 5-26 tablet by ity of 5 mg tablet 00:00: [place] 00 bedtime. Medical Branch carvediloL Yes [id number] 12.5mg Take 1 Univers (COREG) 5-26 tablet by ity of 12.5 mg 00:00: mouth 2 [place] tablet 00 (two) Medical times Branch daily with meals. levothyroxi Yes [id number] 88ug Take 1 Univers ne 88 mcg 5-26 tablet by ity o f tablet 00:00: mouth [place] 00 every Medical morning. Branch 6AM lactobacill 0 Yes [id number] 1{tbl} Take 1 Univers us 5-26 tablet by ity of acidophilus 00:00: mouth 2 [place] as 25 million 00 (two) Medical cell -100 times Branch mg captab daily. hydrOXYchlo Yes [id number] 200mg Take 1 Univers roQUINE 5-26 tablet by ity of (PLAQUENIL) 00:00: mouth [place] 200 mg 00 daily. Medical tablet Branch rosuvastati Yes [id number] 5mg Take 1 Univers n (CRESTOR) 5-26 tablet by ity of 5 mg tablet 00:00: mouth [place] 00 bedtime. Medical Branch carvediloL Yes [id number] 12.5mg Take 1 Univers (COREG) 5-26 tablet by ity of 12.5 mg 00:00: mouth 2 [place] tablet 00 (two) Medical times Branch daily with meals. levothyroxi Yes [id number] 88ug Take 1 Univers ne 88 mcg 5-26 tablet by ity o f tablet 00:00: mouth [place] 00 every Medical morning. Branch 6AM lactobacill Yes [id number] 1{tbl} Take 1 Univers us 5-26 tablet by ity of acidophilus 00:00: mouth 2 [place] 25 million 00 (two) Medical cell -100 times Branch mg captab daily. furosemide 2020- No [id number] 20mg Take 1 Univers 20 mg 5-26 06-26 tablet by ity of tablet 00:00: 04:59 mouth [place] 00 :00 daily for Medical 30 days. Branch KCL 10 mEq 2020- No [id number] 20meq Take 2 Univers tablet 5-26 06-26 tablets by ity of 00:00: 04:59 mouth [place] 00 :00 daily for Medical 30 days. Branch furosemide 2020- No [id number] 20mg Take 1 Univers 20 mg 5-26 06-26 tablet by ity of tablet 00:00: 04:59 mouth [place] 00 :00 daily for Medical 30 days. Branch KCL 10 mEq 2020- No [id number] 20meq Take 2 Univers tablet 5-26 06-26 tablets by ity of 00:00: 04:59 mouth [place] 00 :00 daily for Medical 30 days. Branch vancomycin 2020- No [id number] Take 1 Univers 125 mg 5-26 06-20 capsule by ity of capsule 00:00: 04:59 mouth 4 [place] 00 :00 (four) Medical times Branch daily for 10 days, THEN 1 capsule 2 (two) times daily for 7 days, THEN 1 capsule daily for 7 days. vancomycin 2020- No [id number] Take 1 Univers 125 mg 5-26 06-20 [...] 2020- No 40meq 40 mEq, Univers (KLOR-CON 03-11-25 Oral, ity of M20) tablet 20:45: 01:04 DAILY, [place] 40 mEq 00 :19 First dose Medical on Mon Branch 03/11/21 at 1545, Until Discontinu ed, Routine vancomycin No 250mg 250 mg, Un ignacia (VANCOCIN) [...] 00 First dose Medical (HumaLOG) + on [facility] Branch Fsbg 03/09/21 at Testing 1200, [...] [place] 00 First dose Medical on Sat Branch 03/09/21 at 1115, Until Discontinu ed, Routine omeprazole No 20mg 20 mg, Univ ers (PRILOSEC) 03-09 Oral, ity of capsule 20 14:00: 20:28 DAILY, [place] mg 00 :14 First dose Medical on [facility] 03/09/21 at 0900, Until Discontinu ed, Routine carvediloL Yes 12.5mg 12.5 mg, U nivers (COREG) 03-09 Oral, BID ity of tablet 12.5 13:00: MEALS, [place] mg 00 First dose Medical on [facility] 03/09/21 at 0800, Until Discontinu ed, Routine vancomycin No 125mg 125 mg, Un ignacia (VANCOCIN) 03-09 Oral, QID, it y of capsule 125 13:00: 21:36 56 doses, [place] mg 00 :50 First dose Medical on [facility] 03/09/21 at 0800, Last dose on Thu03/22/21 at 2000, Routine
Reason for Anti-Infec tive: Documented Infection< br>Documen roxanna Infection Site: Abdominal< br>Duratio n of Therapy: 14 days levothyroxi Yes 88ug 88 mcg, Uni vers ne 03-09 Oral, ity of (SYNTHROID) 11:00: QAM-0600, [place] tablet 88 00 First dose Medi eduar mcg on [facility] 03/09/21 at 0600, Until Discontinu ed, Routine rosuvastati Yes 5mg 5 mg, Unive rs n (CRESTOR) 03-09 Oral, QHS, it y of tablet 5 mg 02:00: First dose [place] 00 on Thu [facility] 03/08/21 at Branch 2100, Until Discontinu ed, Routine enoxaparin Yes 40mg 40 mg, Unive rs (LOVENOX) 03-08 Subcutaneo ity of injection 22:00: us, DAILY, [place] 40 mg 00 First dose Medical on Thu [place] 03/08/21 at 1700, Until Discontinu ed, Routine acetaminoph Yes 650mg 650 mg, Un ignacia en 03-08 Oral, ity of (TYLENOL) 19:47: Q6HPRN, [place] tablet 650 32 Starting Medic al mg [...] Medi eduar RTU 10 mEq 03/08/21 at [facility] 1330, 100 mL KCL 2020- No 40meq [...] 03/08/21 at 1315, Routine iohexol 2020- No [id number] 100mL 100 mL, Univers (OMNIPAQUE 03-08 Intravenou it y of 350 17:25: 17:25 s, ONCE, 1 [place] BULK-100 00 :00 dose, Fri Medica l mL) 03/08/21 at Branch injection 1245, 100 mL Routine olmesartan 2021-0 Yes 40mg Take 40 mg U nivers 40 mg 5-19 by mouth ity of tablet 19:02: daily. [address] Iron-Folic 0 Yes Take by Uni vers Acid-Mv, 5-19 mouth 2 ity of Min Cmb#15 19:02: (two) [place] (CENTRATEX) 37 times Medical 106 mg daily. Branch iron- 1 mg Cap olmesartan 0 Yes 40mg Take 40 mg U nivers 40 mg 5-19 by mouth ity of tablet 19:02: daily. [address] Iron-Folic 0 Yes Take by Uni vers Acid-Mv, 5-19 mouth 2 ity of Min Cmb#15 19:02: (two) [place] (CENTRATEX) 37 times Medical 106 mg daily. Branch iron- 1 mg Cap olmesartan 0 Yes 40mg Take 40 mg U nivers 40 mg 5-19 by mouth ity of tablet 19:02: daily. [address] Iron-Folic Yes Take by Uni vers Acid-Mv, 5-19 mouth 2 ity of Min Cmb#15 19:02: (two) [place] (CENTRATEX) 37 times Medical 106 mg daily. Branch iron- 1 mg Cap levothyroxi 0 Yes 88ug Take 88 Uni vers ne 88 mcg 5-19 mcg by ity of tablet 19:01: mouth [place] [address] [address] [place] [address] metFORMIN 0 Yes 500mg Take 500 Uni vers 500 mg 5-19 mg by ity of tablet 19:01: mouth 2 [place] [address] ([facility]) [facility] daily with meals. DULoxetine 0 Yes 30mg Take 30 mg U nivers 30 mg 5-19 by mouth ity of capsule 19:01: daily. [address] levothyroxi 0 Yes 88ug Take 88 Uni vers ne 88 mcg 5-19 mcg by ity of tablet 19:01: mouth [place] [address] [place] [address] metFORMIN 2020-0 Yes 500mg Take 500 Uni vers 500 mg 5-19 mg by ity of tablet 19:01: mouth 2 [place] [address] (two) [facility] daily with meals. DULoxetine 2020-0 Yes 30mg Take 30 mg U nivers 30 mg 5-19 by mouth ity of capsule 19:01: daily. [address] levothyroxi Yes 88ug Take 88 Uni vers ne 88 mcg 5-19 mcg by ity of tablet 19:01: mouth [place] [address] daily. 6AM Medical Branch metFORMIN 0 Yes 500mg Take 500 Uni vers 500 mg 5-19 mg by ity of tablet 19:01: mouth 2 [place] [address] (two) Medical times Branch daily with meals. DULoxetine Yes 30mg Take 30 mg U nivers 30 mg 5-19 by mouth ity of capsule 19:01: daily. [address] Branch famciclovir 0 Yes 1{tbl} Take 1 Un ignacia (FAMVIR 5-19 tablet by ity of ORAL) 19:00: mouth 3 [place] [address] (three) Medical times Branch daily. famciclovir 0 Yes 1{tbl} Take 1 Un ignacia (FAMVIR 5-19 tablet by ity of ORAL) 19:00: mouth 3 [place] [address] (three) Medical times Branch daily. famciclovir Yes 1{tbl} Take 1 Un ignacia (FAMVIR 5-19 tablet by ity of ORAL) 19:00: mouth 3 [place] [address] (three) Medical times Branch daily. GABAPENTIN 2020-2020- No 100mg Take 100 U nivers ORAL 5-19 05-19 mg by ity of 18:59: 00:00 mouth 3 [place] 52 :00 (three) Medical times Branch daily. GABAPENTIN 2020-0 2020- No 100mg Take 100 U nivers ORAL 5-19 05-19 mg by ity of 18:59: 00:00 mouth 3 [place] 52 :00 (three) Medical times Branch daily. GABAPENTIN 2020-0 2020- No 100mg Take 100 U nivers ORAL 5-19 05-19 mg by ity of 18:59: 00:00 mouth 3 [place] 52 :00 (three) Medical times Branch daily. GABAPENTIN 2020-0 2020- No 100mg Take 100 U nivers ORAL 5-19 05-19 mg by ity of 18:59: 00:00 mouth 3 [place] 52 :00 (three) Medical times Branch daily. ofloxacin 2020-0 202- No 1[drp] Place 1 Un ignacia 0.3 % 5-19 05-19 Drop in ity of ophthalmic 18:59: 00:00 left eye 3 [place] solution 49 :00 (three) Medical times Branch [...] ity of 5 mg tablet 18:56: at [place] [address] bedtime. Medical Branch carvediloL Yes 12.5mg Take [...] ity of 5 mg tablet 18:56: at [place] [address] bedtime. Medical Branch carvediloL 2021-0 Yes 12.5mg Take 12.5 Univers (COREG) 5-19 [...] 18:56: daily. [place] 05 Medical Branch rosuvastati Yes 5mg Take 5 mg U nivers n (CRESTOR) 5-19 by mouth ity of 5 mg tablet 18:56: at [place] 05 bedtime. Medical Branch carvediloL Yes 12.5mg Take 12.5 Univers (COREG) 5-19 mg by ity of 12.5 mg 18:56: mouth 2 [place] tablet 05 (two) Medical times Branch daily with meals. furosemide Yes [id number] 40mg Take 1 Univers 40 mg 5-19 tablet by ity of tablet 00:00: mouth [place] 00 daily. Medical Branch furosemide Yes [id number] 40mg Take 1 Univers 40 mg 5-19 tablet by ity of tablet 00:00: mouth [place] 00 daily. Medical Branch furosemide Yes [id number] 40mg Take 1 Univers 40 mg 5-19 tablet by ity of tablet 00:00: mouth [place] 00 daily. Medical Branch KCL 20 mEq 2020- No [id number] 20meq Take 1 Univers tablet 5-19 06-19 tablet by ity of 00:00: 04:59 mouth [place] 00 :00 daily for Medical 30 days. Branch KCL 20 mEq 2020- No [id number] 20meq Take 1 Univers tablet 5-19 06-19 tablet by ity of 00:00: 04:59 mouth [place] 00 :00 daily for Medical 30 days. Branch KCL 20 mEq 2020- No [id number] 20meq Take 1 Univers tablet 5-19 06-19 tablet by ity of 00:00: 04:59 mouth [place] 00 :00 daily for Medical 30 days. Branch furosemide 2020- No [id number] 40mg Take 1 Univers 40 mg 5-19 05-26 tablet by ity of tablet 00:00: 00:00 mouth [place] 00 :00 daily. Medical Branch KCL 20 mEq 2020- No [id number] 20meq Take 1 Univers tablet 5-19 05-26 [...] by mouth ity of capsule 22:16: daily. [place] 54 Medical Branch rosuvastati Yes 5mg Take 5 mg U nivers n (CRESTOR) 5-07 by mouth ity of 5 mg tablet 22:16: at [place] 54 bedtime. Medical Branch carvediloL Yes 12.5mg Take [...] by mouth ity of capsule 22:16: daily. [place] 54 Medical Branch rosuvastati Yes 5mg Take 5 mg U nivers n (CRESTOR) 5-07 by mouth ity of 5 mg tablet 22:16: at [place] 54 bedtime. Medical Branch carvediloL Yes 12.5mg Take [...] by mouth ity of capsule 22:16: daily. [place] [address] Medical Branch rosuvastati 0 Yes 5mg Take 5 mg U nivers n (CRESTOR) 5-07 by mouth ity of 5 mg tablet 22:16: at [place] [address] bedtime. Medical Branch carvediloL Yes 12.5mg Take 12.5 Univers (COREG) 5-07 mg by ity of 12.5 mg 22:16: mouth 2 [place] tablet 54 (two) Medical times Branch daily with meals. metFORMIN 2020- No 500mg Take 500 Un ignacia 500 mg - 05-07 mg by ity of tablet 20:47: 00:00 mouth 2 [place] 14 :00 (two) Medical times Branch daily with meals. olmesartan 2020- No 40mg Take 40 mg Univers 40 mg 02-22-07 by mouth ity of tablet 20:47: 00:00 daily. [place] 14 :00 OLMESARTAN Medical MEDOXOMIL Branch predniSONE 2020- No 20mg Take 20 mg Univers 20 mg 02-22-07 by mouth ity of tablet 20:47: 00:00 daily. 3 [place] 14 :00 TABS DAILY Medical FOR 3 Branch DAYS, THEN 2 TABLETS BY MOUTH FOR 3 DAYS LAST TAKEN 5.2.21 sulfur 2020- No [id number] 5mL 5 mL, Un ignacia hexafluorid 02-22- 9109 Intravenou i ty of e microsphr 18:15: 18:15 s, ONCE, 1 [place] (LUMASON) 00 :00 dose, Fri Medic al injection 5 02/22/21 at [facility] mL 1315, Routine
political science faculty member approving Restricted medication : KERA CH Sliding Yes Subcutaneo Univ ers Scale 5-07 us, TID ity of Insulin - 03:30: MEALS+HS, Aniceto as Lispro 00 First dose Medical (HumaLOG) + on [place] Branch Fsbg 02/21/21 at Testing 2230, Until Discontinu ed, Routine prednisoLON Yes [id number] 1[drp] Place 1 Univers E acetate 1 5-07 Drop in ity o f % 00:00: left eye 4 [place] ophthalmic 00 (four) Medical suspension times Branch drops daily. prednisoLON Yes [id number] 1[drp] Place 1 Univers E acetate 1 5-07 Drop in ity o f % 00:00: left eye 4 [place] ophthalmic 00 (four) Medical suspension times Branch drops daily. lactobacill 2020- No [id number] 1{tbl} Take 1 Univers us 5-07 06-07 tablet by ity of acidophilus 00:00: 04:59 mouth 2 [place] 25 million 00 :00 (two) Medical cell -100 times Branch mg captab daily for 30 days. lactobacill 2020- No [id number] 1{tbl} Take 1 Univers us 5-07 06-07 tablet by ity of acidophilus 00:00: 04:59 mouth 2 [place] 25 million 00 :00 (two) Medical cell -100 times Branch mg captab daily for 30 days. lactobacill 2020- No [id number] 1{tbl} Take 1 Univers us 5-07 06-07 tablet by ity of acidophilus 00:00: 04:59 mouth 2 [place] 25 million 00 :00 (two) Medical cell -100 times Branch mg captab daily for 30 days. lactobacill 2020- No [id number] 1{tbl} Take 1 Univers us 5-07 06-07 tablet by ity of acidophilus 00:00: 04:59 mouth 2 [place] 25 million 00 :00 (two) Medical cell -100 times Branch mg captab daily for 30 days. lactobacill 2020- No [id number] 1{tbl} Take 1 Univers us 5-07 06-07 tablet by ity of acidophilus 00:00: 04:59 mouth 2 [place] 25 million 00 :00 (two) Medical cell -100 times Branch mg captab daily for 30 days. lactobacill 2020- No [id number] 1{tbl} Take 1 Univers us 5-07 06-07 tablet by ity of acidophilus 00:00: 04:59 mouth 2 [place] 25 million 00 :00 (two) Medical cell -100 times Branch mg captab daily for 30 days. lactobacill 2020- No [id number] 1{tbl} Take 1 Univers us 5-07 05-26 tablet by ity of acidophilus 00:00: 00:00 mouth 2 [place] 25 million 00 :00 (two) Medical cell -100 times Branch mg captab daily for 30 days. lactobacill 2020- No [id number] 1{tbl} Take 1 Univers us 5-07 05-26 tablet by ity of acidophilus 00:00: 00:00 mouth 2 [place] 25 million 00 :00 (two) Medical cell -100 times Branch mg captab daily for 30 days. lactobacill 2020- No [id number] 1{tbl} Take 1 Univers us 5-07 05-26 tablet by ity of acidophilus 00:00: 00:00 mouth 2 [place] 25 million 00 :00 (two) Medical cell -100 times Branch mg captab daily for 30 days. prednisoLON 2020- No [id number] 1[drp] Place 1 Univers E acetate 1 5- 05-19 Drop in ity of % 00:00: 00:00 left eye 4 [place] ophthalmic 00 :00 (four) Medical suspension times Branch drops daily. prednisoLON 2020- No [id number] 1[drp] Place 1 Univers E acetate 1 5- 05-19 Drop in ity of % 00:00: 00:00 left eye 4 [place] ophthalmic 00 :00 (four) Medical suspension times Branch drops daily. prednisoLON 2020- No [id number] 1[drp] Place 1 Univers E acetate 1 5- 05-19 Drop in ity of % 00:00: 00:00 left eye 4 [place] ophthalmic 00 :00 (four) Medical suspension times Branch drops daily. prednisoLON 2020- No [id number] 1[drp] Place 1 Univers E acetate 1 5-07 05-19 Drop in ity of % 00:00: 00:00 left eye 4 [place] ophthalmic 00 :00 (four) Medical suspension times Branch drops daily. levoFLOXaci 2020- No [id number] 500mg Take 1 Univers n 500 mg 5-07 05-10 tablet by ity o f tablet 00:00: 04:59 mouth [place] 00 :00 every 24 Medical (twenty-fo Branch ur) hours for 2 days. KCL Yes 20meq 20 mEq, Univers (KLOR-CON 02-21 Oral, ity of M20) tablet 14:00: DAILY, [place] 20 mEq 00 First dose Medical on [facility] 02/21/21 at 0900, Until Discontinu ed, Routine omeprazole Yes 20mg 20 mg, Unive rs (PRILOSEC) 02-21 Oral, ity of capsule 20 14:00: DAILY, [place] mg 00 First dose Medical on [facility] 02/21/21 at 0900, Until Discontinu ed, Routine hydrOXYchlo Yes 200mg 200 mg, Un ignacia roQUINE 02-21 Oral, ity of (PLAQUENIL) 14:00: DAILY, [place] tablet 200 00 First dose Med ical mg on [facility] 02/21/21 at 0900, Until Discontinu ed, Routine
Indicatio n: Rheumatic disorder enoxaparin Yes 30mg 30 mg, Unive rs (LOVENOX) 02-21 Subcutaneo ity of injection 14:00: us, DAILY, [place] 30 mg 00 First dose Medical on [facility] 02/21/21 at 0900, Until Discontinu ed, Routine levothyroxi Yes 100ug 100 mcg, U nivers ne 02-21 Oral, ity of (SYNTHROID) 11:00: QAM-0600, [place] tablet 100 00 First dose Med ical mcg on [facility] 02/21/21 at 0600, Until Discontinu ed iohexol 2020- No [id number] 120mL 120 mL, U nivers (OMNIPAQUE 02-21- Intravenou it y of 350 09:15: 09:15 s, ONCE, 1 [place] BULK-150 00 :00 dose, [place] Medica l mL) 02/21/21 at Branch injection 0415, 120 mL Routine NaCl 0.9% 2020- No 500mL at 999 Univ ers (NS) bolus 02-21 05-06 mL/hr, 500 it y of infusion 07:30: 06:35 mL, IV [place] 500 mL 00 :00 Piggyback, Medical ONCE, 1 Branch dose, [place] 02/21/21 at 0230, STAT methylpredn No 60mg 60 mg, Uni vers isolone sod 02-21-06 Slow IV ity of succ 07:30: 06:26 Push, ONCE [place] (SOLU-MEDRO 00 :00 NOW, 1 Medica l [...] No 5mg 5 mg, Slow Univers lactate 02-21 IV Push, ity of (HALDOL) 07:15: 06:13 [...] mL mg/kg Branch IV infusion ?47.8 kg [place] weight), IV Infusion, Q8H ABX, First dose [...] Until [place] 02/21/21 at 0114, Routine morpHINE No 2mg 2 mg, Slow Un ingacia injection 2 506 05-06 IV Push, ity of mg 06:45: 05:40 ONCE, 1 [place] 00 :00 dose, [place] Medical 02/21/21 at Branch 0145, Routine vancomycin Yes 125mg 125 mg, Uni vers (FIRVANQ) 5-06 Oral, BID, ity of 50 mg/mL 06:30: First dose Aniceto as oral 00 on [place] Medical solution 02/21/21 at Branch 125 mg 0130, Until Discontinu ed, Routine
Reason for Anti-Infec tive: Empiric Non-Surgic al Prophylaxi s
Durat ion of therapy: 7 days cefTRIAXone Yes 1000mg 1,000 mg, Univers (ROCEPHIN) 06 IV ity of 1,000 mg in 06:30: Piggyback, [place] NaCl 0.9% 00 Q12H ABX, Medic al (NS) 50 mL First dose [facility] MINI-BAG on [place] 02/21/21 at 0130, [...] Yes 50ug 50 mcg, Uni vers (SUBLIMAZE -06 Slow IV ity of (PF)) 06:23: Push, [place] injection 10 TIDPRN, Medical 50 mcg Starting Branch [place] 02/21/21 at 0123, Until Discontinu ed, Routine, Pain (scale 7-10) traMADoL Yes 50mg 50 mg, Univers (ULTRAM) 5-06 Oral, ity of tablet 50 06:22: Q8HPRN, [...] injection 37 Starting Medica l 25 mL [facility] 02/21/21 Branch at 0107, Until Discontinu ed, KIRSTY, Blood Glucose < or = 70 mg/dL and patient is unable to swallow or has mental status changes. predniSONE Yes 10mg 10 mg, Unive rs (DELTASONE) 02-21 Oral, ity of tablet 10 05:45: DAILY, [place] mg 00 First dose Medical on [facility] Branch 02/21/21 at 0045, Until Discontinu ed, Routine moxifloxaci Yes 1[drp] 1 Drop, U omar n (VIGAMOX) 02-21 Left Eye, ity of 0.5 % 05:45: TID, First [place] ophthalmic 00 dose on Medica l drops 1 [facility] 02/21/21 Branch Drop at 0045, Until Discontinu ed gabapentin Yes 200mg 200 mg, Uni vers (NEURONTIN) 02-21 Oral, TID, it y of capsule 200 05:45: First dose [place] mg 00 on [place] Medical 02/21/21 at Branch 0045, Until Discontinu ed, Routine carvediloL Yes 12.5mg 12.5 mg, U nivers (COREG) 06 Oral, BID ity of tablet 12.5 05:45: [place]ALS[place] 00 First dose Medical on [place] Branch 02/21/21 at 0045, Until Discontinu ed, Routine meclizine Yes 25mg 25 mg, Univer s (TRAVEL-EAS 5-06 Oral, BID, it y of E 05:45: First dose [place] (MECLIZINE) 00 on [place] Medica l ) tablet 25 02/21/21 at [facility] mg 0045, Until Discontinu ed, Routine lactobacill 0 Yes 1{tbl} 1 tablet, Univers us 5-06 Oral, BID, ity of acidophilus 05:30: First dose [place] (ACIDOPHILL 00 on [place] Medica l US) 25 02/21/21 at Branch million 0030, cell -100 Until mg captab 1 Discontinu tablet ed, Routine docusate Yes 100mg 100 mg, Unive rs (COLACE) 5-06 Oral, BID, ity o f capsule 100 05:15: First dose [place] mg 00 on [place] Medical 02/21/21 at Branch 0015, Until Discontinu ed, Routine ondansetron Yes 4mg 4 mg, Slow Univers (ZOFRAN 5-06 IV Push, ity of (PF)) 05:06: Q6HPRN, [place] injection 4 41 Starting Medi eduar mg [facility] 02/21/21 Branch at 0006, Until Discontinu ed, Routine, Nausea and Vomiting (N/V) FENTanyl PF 2020- No 25ug 25 mcg, Un ignacia (SUBLIMAZE 02-20 05-05 Slow IV ity o f (PF)) 23:45: 23:05 Push, [place] injection 00 :00 ONCE, 1 Medical 25 mcg dose, Wed [place] 02/20/21 at 1845, STAT ondansetron 2020- No [...] :00 Infusion, Medical ONCE, 1 Branch dose, [facility] 02/20/21 at 1715, STAT FENTanyl PF 2020- No 50ug 50 mcg, Un ignacia (SUBLIMAZE 5-05 05-05 Slow IV ity o f (PF)) 21:45: 20:36 Push, [place] injection 00 :00 ONCE, 1 Medical 50 mcg dose, Thu02/20/21 at 1645, STAT predniSONE Yes 6mg QD Take [address] (DELTASONE) 2-11 by mouth Luke s 1 MG tablet 16:50: daily. Medi eduar 20 [place] levothyroxi Yes 88ug QD Take 88 [facility] [...] 40 MG 16:50: daily. Medical tablet 20 [place] leflunomide Yes 10mg QD Take [address] (ARAVA) 10 2-11 by mouth [facility] MG tablet 16:50: daily. Medica l 20 [place] rosuvastati Yes 5mg QD Take [address] n (CRESTOR) 2-11 by mouth Luke s 5 MG tablet 16:50: daily. [address] omeprazole Yes 20mg QD Take [address] (PriLOSEC) 2-11 by mouth [facility]ukes 20 MG 16:50: daily. Medical capsule 20 [place] cyanocobala Yes 100ug QD Take [address] min, 2-11 mcg by [facility] vitamin 16:50: mouth Medical B-12, 100 20 daily. Center MCG tablet ferrous Yes 325mg Take 325 [facility] sulfate 325 2-11 mg by [facility]ukes (65 FE) MG 16:50: mouth Medica l tablet 20 daily with Center breakfast. predniSONE Yes 6mg QD Take [address] (DELTASONE) 2-11 by mouth Luke s 1 MG tablet 16:50: daily. [address] levothyroxi Yes 88ug QD Take 88 CHI [...] golimumab weeks. 12.5 mg/mL Soln 2 mg/kg multivit, Yes QD Take by [facility] er.w-iron,h 2-11 mouth [facility]ukes ematinic 16:50: daily. Medical (THERAPEUTI 20 Center C FORMULA/HEM ATINICS ORAL) olmesartan Yes 40mg QD Take [address] (BENICAR) 2-11 by mouth [facility]ukes 40 MG 16:50: daily. Medical tablet 20 [place] leflunomide Yes 10mg QD Take [address] (ARAVA) 10 2-11 by mouth [facility]ukes MG tablet 16:50: daily. Medica l 20 Center rosuvastati Yes 5mg QD Take [address] n (CRESTOR) 2-11 by mouth Luke s 5 MG tablet 16:50: daily. Medi eduar 20 Center omeprazole Yes 20mg QD Take [address] (PriLOSEC) 2-11 by mouth [facility] 20 MG 16:50: daily. Medical capsule 20 [place] cyanocobala Yes 100ug QD Take [address] min, 2-11 mcg by [facility]ukes vitamin 16:50: mouth Medical B-12, 100 20 daily. [facility] MCG tablet ferrous Yes 325mg Take 325 [facility] sulfate 325 2-11 mg by [facility]ukes (65 FE) MG 16:50: mouth Medica l tablet 20 daily with Center breakfast. spironolact 2020- No 25mg QD Take [address] one 11-26 02-08 by mouth [facility]ukes (ALDACTONE) 11:57: 00:00 daily. Med ical 25 MG 49 :00 Center tablet estradiol 2020- No .5mg QD Take 0.[address] (ESTRACE) 208 02-08 mg by Lukes 0.5 MG 11:56: 00:00 mouth Medical tablet 09 :00 daily. [place] hydrOXYchlo Yes QD Take by Met hodi [...] Hospita capsule 57 l traMADoL 2019-10 Yes [id number] 50mg Q6H Take 50 mg Me thodi [...] 2021-03-13 119 mm[Hg] University of pressure 17:00:00 [facility] Diastolic blood 2021-03-13 66 mm[Hg] University o f pressure 17:00:00 [facility] Heart rate 2021-03-13 89 /min University of 17:00:00 [facility] Body temperature 2021-03-13 36.11 Blanca University of 17:00:00 [facility] Respiratory rate 2021-03-13 18 /min University of 17:00:00 [facility] Oxygen saturation 2021-03-13 99 /min [facility] in Arterial blood 17:00:00 [facility] by Pulse oximetry Branch Body weight 2021-03-13 56.7 kg University of 09:57:00 [facility] BMI 2021-03-13 23.62 kg/m2 University of 09:57:00 [facility] Body height 2021-03-08 154.9 cm University of 20:15:00 [facility] Systolic blood 2021-03-06 120 mm[Hg] University of pressure 19:03:00 [facility] Diastolic blood 2021-03-06 72 mm[Hg] University o f pressure 19:03:00 [facility] Heart rate 2021-03-06 79 /min University of 19:03:00 [facility] Respiratory rate 2021-03-06 19 /min University of 19:03:00 [facility] Body height 2021-03-06 152.4 cm University of 19:03:00 [facility] Body weight 2021-03-06 57.471 kg University of 19:03:00 [facility] BMI 2021-03-06 24.74 kg/m2 University of 19:03:00 [facility] Oxygen saturation 2021-03-06 96 /min [place] [facility] in Arterial blood 19:03:00 [facility] by Pulse oximetry Branch Body height 2021-03-05 152.4 cm University of 20:14:00 [facility] Body weight 2021-03-05 57.749 kg University of 20:14:00 [facility] BMI 2021-03-05 24.86 kg/m2 University of 20:14:00 [facility] Systolic blood 2021-02-22 139 mm[Hg] University of pressure 16:00:00 [facility] Diastolic blood 2021-02-22 64 mm[Hg] [place] o f pressure 16:00:00 [facility] Heart rate 2021-02-22 77 /min [facility] 16:00:00 [facility] Body temperature 2021-02-22 35.83 Blanca [facility] 16:00:00 [facility] Respiratory rate 2021-02-22 18 /min [facility] 16:00:00 [facility] Oxygen saturation 2021-02-22 95 /min [facility] in Arterial blood 16:00:00 [facility] by Pulse oximetry [place] Body weight 2021-02-22 60.963 kg [facility] 08:01:00 [facility] BMI 2021-02-22 25.39 kg/m2 [facility] 08:01:00 [facility] Body height 2021-02-21 154.9 cm [facility] 01:11:00 [facility] HEIGHT 2020-11-29 156.2 cm 11:27:00 WEIGHT 2020-11-29 60.555 kg 11:27:00 HEIGHT 2020-11-26 156.2 cm 12:20:00 WEIGHT 2020-11-26 66.225 kg 12:20:00 Systolic blood 2020-11-29 162 mm[Hg] [facility] pressure 15:17:00 [facility] Diastolic blood 2020-11-29 70 mm[Hg] [facility] pressure 15:17:00 [facility] Heart rate 2020-11-29 62 /min [facility] 15:17:00 [facility] Body temperature 2020-11-[address] [facility] 15:17:00 [facility] Respiratory rate 2020-11-29 16 /min [facility] 15:17:00 [facility] Oxygen saturation 2020-11-29 95 /min [facility] Javed es in Arterial blood 15:17:00 [facility] nter by Pulse oximetry Body height 2020-11-[address] [facility] 11:27:00 [facility] Body weight 2020-11-[address] [facility] 11:27:00 [facility] BMI 2020-11-29 24.82 kg/m2 [facility] 11:27:00 [facility] Center Procedures Procedure Date / Time Performing Clinician Source Performed POCT GLUCOSE (AUTOMATED) 2021-03-13 17:02:00 Bradford Paul versity of [facility] POCT GLUCOSE (AUTOMATED) 2021-03-13 13:32:00 Bradford Paul Uni versity of [facility] POCT GLUCOSE (AUTOMATED) 2021-03-13 01:28:00 Bradford Paul Uni versity of [facility] POCT GLUCOSE (AUTOMATED) 2021-03-12 20:56:00 Bradford Paul [facility] BASIC METABOLIC PANEL 2021-03-12 18:44:[address] [facility] (NA, K, CL, CO2, GLUCOSE, Medica l Branch BUN, CREATININE, CA) N-TERMINAL PRO-BNP 2021-03-12 18:44:00 Kera Ch [facility] POCT GLUCOSE (AUTOMATED) 2021-03-12 16:05:[address] [facility] of [facility] POCT GLUCOSE (AUTOMATED) 2021-03-12 12:15:00 Bradford Paul Miryam versity of [facility] POCT GLUCOSE (AUTOMATED) 2021-03-12 01:26:00 Bradford Paul Miryam versity of [facility] POCT GLUCOSE (AUTOMATED) 2021-03-11 21:06:00 Bradford Paul Miryam versity of [facility] POCT GLUCOSE (AUTOMATED) 2021-03-11 16:00:[address] [facility] BASIC METABOLIC PANEL 2021-03-11 15:05:00 Jordan Will [facility] (NA, K, CL, CO2, GLUCOSE, Medica l Branch BUN, CREATININE, CA) POCT GLUCOSE (AUTOMATED) 2021-03-11 12:35:00 Bradford Paul Uni versity of [facility] POCT GLUCOSE (AUTOMATED) 2021-03-11 01:33:00 Bradford Paul Uni versity of [facility] POCT GLUCOSE (AUTOMATED) 2021-03-10 20:49:00 Bradford Paul [facility] POCT GLUCOSE (AUTOMATED) 2021-03-10 16:30:00 Bradford Paul [facility] POCT GLUCOSE (AUTOMATED) 2021-03-10 12:56:00 Bradford Paul [facility] MAGNESIUM 2021-03-10 10:12:00 Amy [facility] TROPONIN I 2021-03-10 10:12:00 Amy [facility] BASIC METABOLIC PANEL 2021-03-10 10:12:00 [facility] ([facility], K, CL, CO2, GLUCOSE, Medica l Branch BUN, CREATININE, CA) N-TERMINAL PRO-BNP 2021-03-10 10:12:00 Amy [facility] HB ECG ROUTINE & RHYTHM 2021-03-10 10:08:12 Amy [facility] POCT GLUCOSE (AUTOMATED) 2021-03-10 01:53:00 Bradford Paul [facility] POCT GLUCOSE (AUTOMATED) 2021-03-09 21:41:00 Bradford Paul [facility] POCT GLUCOSE (AUTOMATED) 2021-03-09 16:59:00 Bradford Paul [facility] POCT GLUCOSE (AUTOMATED) 2021-03-09 13:45:00 Bradford Paul [facility] BASIC METABOLIC PANEL 2021-03-09 08:44:[address] [facility] (NA, K, CL, CO2, GLUCOSE, Medica l Branch BUN, CREATININE, CA) CBC WITH DIFF 2021-03-09 08:44:00 Bradford Paul [facility] D-DIMER 2021-03-09 01:19:00 Jordan Will [facility] CLOSTRIDIUM DIFFICILE 2021-03-09 01:19:00 Prabhakar Childs [facility] FECAL PATHOGENS BY PCR 2021-03-09 01:19:00 Prabhakar Childs [facility] XR CHEST 1 VW 2021-03-09 00:05:00 Jordan Will [facility] URINALYSIS 2021-03-08 18:40:00 Mina Wu [facility] URINE CULTURE 2021-03-08 18:40:00 Mina Wu [facility] COVID-19 (ID NOW RAPID 2021-03-08 18:24:00 [facility] Branch LAB ONLY COVID 2021-03-08 18:24:00 Mina Wu [facility] INTERPRETATION [facility] CT ABDOMEN PELVIS W 2021-03-08 17:34:31 Mina Wu [facility] CONTRAST [facility] CT CHEST PULMONARY 2021-03-08 17:34:31 Mina Wu [facility] ANGIOGRAM [facility] FREE T4 2021-03-08 17:01:00 Singer Ionpolly Cardenas [facility] HB ECG ROUTINE & RHYTHM 2021-03-08 16:30:28 Ion Garcia [facility] STRIP [facility] LIPASE 2021-03-08 16:22:00 Singer [facility] TROPONIN I 2021-03-08 16:22:00 Singer [facility] THYROID STIMULATING 2021-03-08 16:22:[address] [facility] HORMONE [facility] COMP. METABOLIC PANEL 2021-03-08 16:22:00 [facility] ([id number]) [facility] CBC WITH DIFF 2021-03-08 16:22:00 Singer Ion [facility] PROTHROMBIN TIME / INR 2021-03-08 16:22:00 Ion Garcia [facility] ACTIVATED PARTIAL 2021-03-08 16:22:00 Singer [facility] THRMPLAS YASMIN [facility] N-TERMINAL PRO-BNP 2021-03-08 16:22:00 Ibikunle, Folusho F [facility] HOSPITAL ADMISSION 2021-03-08 05:01:00 Doctor Unassigned, [facility] [employer] [facility] CAROTID DUPLEX BILATERAL 2021-02-22 20:19:16 Kera Ch [facility] - BY VASCULAR LAB [facility] POCT GLUCOSE (AUTOMATED) 2021-02-22 16:00:00 Tyron Reyes [facility] POCT GLUCOSE (AUTOMATED) 2021-02-22 12:52:00 Tyron Reyes [facility] URIC ACID 2021-02-22 09:49:00 Amy [facility] MAGNESIUM 2021-02-22 09:49:00 Amy [facility] COMP. METABOLIC PANEL 2021-02-22 09:49:[address] [facility] ([id number]) [facility] CBC WITH DIFF 2021-02-22 09:49:00 Amy ned [facility] N-TERMINAL PRO-BNP 2021-02-22 09:49:00 Amy ned [facility] POCT GLUCOSE (AUTOMATED) 2021-02-22 02:15:00 Tyron Reyes [facility] POCT GLUCOSE (AUTOMATED) 2021-02-21 21:16:00 Tyron Reyes [facility] POCT GLUCOSE (AUTOMATED) 2021-02-21 16:34:00 Tyron Reyes [facility] POCT GLUCOSE (AUTOMATED) 2021-02-21 13:03:00 Tyron Reyes [facility] OSMOLALITY URINE 2021-02-21 11:03:00 Amy ned [facility] LEGIONELLA URINARY 2021-02-21 11:03:00 Tyron Reyes [facility] ANTIGEN [facility] URINE CULTURE 2021-02-21 11:03:00 Amy ned [facility] URIC ACID 2021-02-21 09:10:00 Amy ned [facility] MAGNESIUM 2021-02-21 09:10:00 Tyron Reyes [facility] OSMOLALITY, SERUM OR 2021-02-21 09:10:00 Amy ned [facility] PLASMA [facility] TROPONIN I 2021-02-21 09:10:00 Amy ned [facility] COMP. METABOLIC PANEL 2021-02-21 09:10:[address] [facility] ([id number]) [facility] SEDIMENTATION RATE 2021-02-21 09:10:00 Amy ned [facility] CBC WITH DIFF 2021-02-21 09:10:00 Amy [facility] N-TERMINAL PRO-BNP 2021-02-21 09:10:00 Amy ned [facility] CT ABDOMEN PELVIS W 2021-02-21 09:06:17 Amy ned [facility] CONTRAST [facility] XR SHOULDER 2+ VW RIGHT 2021-02-21 09:05:04 Tyron Reyes [facility] CT HEAD WO CONTRAST 2021-02-21 09:04:43 Amy ned [facility] POCT GLUCOSE (AUTOMATED) 2021-02-21 07:42:00 Tyron Reyes [facility] VITAMIN B12, LEVEL 2021-02-21 05:53:00 Amy ned [facility] TROPONIN I 2021-02-21 05:53:00 Amy ned [facility] IRON PANEL 2021-02-21 05:53:00 Amy ned [facility] PROTHROMBIN TIME / INR 2021-02-21 05:53:00 Amy ned [facility] VITAMIN D, 25-OH 2021-02-21 05:53:00 Amy [facility] PROCALCITONIN 2021-02-21 05:53:00 Amy [facility] POCT GLUCOSE (AUTOMATED) 2021-02-21 05:52:00 Prabhakar Childs [facility] XR FOREARM 2 VW RIGHT 2021-02-20 22:57:20 Jordan Walsh [facility] XR HUMERUS 2 VW RIGHT 2021-02-20 22:57:20 Jordan Walsh [facility] HB ECG ROUTINE & RHYTHM 2021-02-20 22:38:40 Jordan Walsh [facility] URINALYSIS 2021-02-20 22:10:00 Jordan Walsh [facility] SODIUM, URINE RANDOM 2021-02-20 22:10:00 Tyron Reyes [facility] PROTEIN CREAT RATIO URINE 2021-02-20 22:10:00 [facility] COVID-[facility] (ID NOW RAPID 2021-02-20 22:10:00 Jordan Walsh [facility] TESTING) Medical Branch LAB ONLY COVID 2021-02-20 22:10:[address] [facility] BLOOD CULTURE SCREEN 2021-02-20 21:10:00 Jordan Walsh [facility] LACTIC ACID WHOLE BLOOD 2021-02-20 21:10:00 Jordan Walsh [facility] BLOOD CULTURE SCREEN 2021-02-20 21:02:00 Jordan Walsh [facility] PHOSPHORUS 2021-02-20 21:02:00 Tyron Reyes [facility] CREATINE KINASE 2021-02-20 21:02:00 Tyron Reyes [facility] URIC ACID 2021-02-20 21:02:00 Tyron Reyes [facility] LIPASE 2021-02-20 21:02:00 Jordan Walsh [facility] MAGNESIUM 2021-02-20 21:02:00 Tyron Reyes [facility] FERRITIN SERUM 2021-02-20 21:02:00 Tyron Reyes [facility] TROPONIN I 2021-02-20 21:02:00 Jordan Walsh [facility] THYROID STIMULATING 2021-02-20 21:02:00 Tyron Reyes [facility] HORMONE Medical Branch COMP. METABOLIC PANEL 2021-02-20 21:02:[address] [facility] ([id number]) Medical Branch LIPID PANEL ([id number])(TOTAL 2021-02-20 21:02:00 Tyron Reyes [facility] CHOLESTEROL, Medical Branch TRIGLYCERIDES, HDL) CBC WITH DIFF 2021-02-20 21:02:00 Jordan Walsh [facility] GLYCOSYLATED HEMOGLOBIN 2021-02-20 21:02:00 Tyron Reyes [facility] (A1C) Medical Branch N-TERMINAL PRO-BNP 2021-02-20 21:02:00 Jordan Walsh [facility] XR CHEST 1 VW 2021-02-20 20:58:38 Jordan Walsh [facility] EKG-12 LEAD 2021-02-20 20:52:14 Doctor Unassigned, [facility] [employer] [facility] [place] ASSIGNMENT OF BENEFITS 2021-02-20 20:48:04 Doctor Unassigned, [facility] Name Medical [place] NOTICE OF PRIVACY 2021-02-20 20:47:37 Doctor Unaaddyigned, [facility] PRACTICES [employer] Medical Branch CONSENT/REFUSAL FOR 2021-02-20 20:47:11 Doctor Joceline, [facility] DIAGNOSIS AND TREATMENT [employer] [facility] [place] REPORT OF PROCEDURE - 2020-11-29 14:12:20 Amor Muller [facility] Center CYTOLOGY REQUEST 2020-11-29 14:08:18 Amor Muller [facility] CYTOLOGY 2020-11-29 14:08:00 Amor Muller [facility] UPPER ENDOSCOPY,FNA 2020-11-29 13:50:00 Amor Muller [facility] W/ULTRASOUND Center POCT-GLUCOSE METER 2020-11-29 11:45:00 Amor Muller [facility] Plan of Care Planned Activity Planned Date Details Comments Source Future Scheduled 2021-11-27 COVID-19 VACCINE (1) Met [facility] Test 23:55:17 [code = COVID-19 VACCINE (1)] Future Scheduled 2021-11-27 SHINGLES [facility]ACCINES (#[facility]:55:17 [code = SHINGLES VACCINES (#1)] Future Scheduled 2021-11-27 65+ [facility] Test 23:55:17 VACCINE (1 of 1 [...] 00:00:00 (1 of 1 - Medical Center [id number] PCV13) [code = PNEUMOCOCCAL 65+ YRS (1 of 1 - [id number] PCV13)] Future Scheduled 1998 PNEUMOCOCCAL 65+ YRS [facility] Test 00:00:00 (1 of 1 - [facility] Center [id number] PCV13) [code = PNEUMOCOCCAL 65+ YRS (1 of 1 - [id number] PCV13)] Future Scheduled 1983 SHINGLES VACCINES (1 [...] = COVID-[address] VACCINE (1)] Encounters Start End Encounter Admission Attending Care Care Encounter Source Date/Time Date/Time Type Type Clinicians Facility Department ID 2021-08-18 Emergency [facility] [id number] Univers 20:31:48 [facility] 2021-07-27 Outpatient RENZO, [facility] Surgery [id number] SLE 00:46:32 AMOR 2021-06-19 Outpatient SRAVANI YATES MDA [id number] 16:55:25 CRICKET bill 2022-03-14 2022-03-14 Outpatient Chris PUENTES [facility] [id number] Univers 10:20:00 10:20:00 TA [id number] [facility] 2022-03-14 2022-03-14 Outpatient Chris PUENTES [facility] [id number] Univers 10:20:00 10:20:00 TA [facility] 2021-09-20 2021-09-20 Outpatient JACE ADKINS MDA MDA [id number] 09:41:37 10:28:58 ASHLEY bill 2021-08-23 2021-08-23 Outpatient JACE BENITEZ MDA MDA [id number] 11:09:34 12:02:10 VANI bill 2021-07-24 2021-07-24 Outpatient JACE BENITEZ MDA MDA [id number] 09:57:59 11:35:29 VANI bill 2021-07-11 2021-07-11 Outpatient JACE BENITEZ MDA MDA [id number] 07:24:23 16:14:43 VANI bill 2021 2021 Outpatient JACE LASSITER MDA [id number] 09:43:10 09:43:10 Dani bill 2021-07-04 2021-07-04 Outpatient JACE BENITEZ MDA MDA [id number] 08:03:03 12:45:35 VANI bill 2021-06-21 2021-06-21 Outpatient JACE ADKINS MDA MDA [id number] 09:37:53 11:15:25 ASHLEY bill 2021-06-21 2021-06-21 Outpatient JACE ADKINS MDA MDA [id number] MD 09:31:19 09:31:25 ASHLEY bill 2021-06-11 2021-06-11 Travel [id number] Methodi 00:00:00 00:00:[id number] 3.430.2.7 0.2.7.3.698 Ho spita .[id number] 084.8 l .8 2021-04-18 2021-04-18 Outpatient DIMA [facility] [id number] Univers 14:00:00 14:00:00 SENDIL [id number] [facility] 2021-04-18 2021-04-18 Outpatient R DIMA [facility] [id number] Univers 14:00:00 14:00:00 SENDIL [facility] 2021-03-14 2021-03-14 Transition Jaren Bullard [id number] Univers 00:00:00 00:00:00 of Care Tamika Zamudio [id number] i [id number] [id number] [facility] 403 Branch 2021-03-08 2021-03-13 Emergency Mina Wu [facility] [id number] Univers 11:13:00 14:30:00 Bradford Paul [id number] [id number] [id number] [facility] 081 Branch 2021-03-12 2021-03-12 [facility] [id number] Univers 08:30:00 08:30:00 SENDIL [id number] ity [facility] 2021-03-12 2021-03-12 Outpatient R [facility] [id number] Univers 08:30:00 08:30:00 SENDIL ity [facility] 2021-03-08 2021-03-08 [facility] [id number] Univers 00:00:00 00:00:00 Sendil Kandi Marrufo [id number] [id number] [id number] [address] 2021-03-06 2021-03-06 Office iDma [facility] [id number] Univers 13:42:37 14:43:04 Visit Sendil Kandi Marrufo [id number] [id number] [id number] S[place] dic32 [address] 2021-03-06 2021-03-06 [facility] [id number] Univers 14:00:00 14:00:00 SENDIL [id number] ity [facility] 2021-03-06 2021-03-06 Outpatient R DIMA [facility] [id number] Univers 14:00:00 14:00:00 SENDIL ity [facility] 2021-03-05 2021-03-05 [facility] 1.2.840.114 [id number] Univers 15:09:13 16:42:02 Visit Fran RAY 350.1.13.10 i ty [place] [id number] [facility] [address] 2021-03-05 2021-03-05 Outpatient Chris DEMETRIUS [facility] [id number] Univers 15:15:00 15:15:00 FRAN ity of [facility] 2021-02-25 2021-02-25 Transition Jaren Arambula 1.2.840.114 [id number] Univers 00:00:00 00:00:00 of Care Luis Felipe Figueroa Robb 350.1.13.10 ity [place]2.[place] [id number] [facility] [address] 2021-02-20 2021-02-22 Hospital Jordan Walsh [facility] [id number] Univers 14:56:00 17:10:00 Encounter Prabhakar Childs 350.1.13.10 ity of [place] Reyes 4.2.7.2.686 [facility] [id number] [facility] [address] 2021-02-20 2021-02-20 Emergency X KENYETTA [facility] ERT [id number] Univers 14:56:00 14:56:00 JORDAN ity [facility] 2020-11-29 2020-11-[address] [facility] [id number] 09:49:00 15:37:00 Encounter [facility] 2020-11-29 2020-11-[address] [facility] [id number] [facility] 13:55:00 14:17:00 Event Ronda [facility] 2020-11-29 2020-11-[address] [facility] [id number] 12:00:00 13:00:00 [facility] 2020-11-29 2020-11-29 Travel [facility] [id number] [facility] 00:[facility]:00 00:00:00 [facility] 2020-11-26 2020-11-[address] [facility] [id number] 11:40:00 23:59:00 Encounter [facility] 2020-11-26 2020-11-26 Outpatient [facility] [id number] [facility] 00:00:00 00:00:00 2020-11-26 2020-11-26 Travel [facility] [id number] [facility] 00:[facility] 00:[facility]00 [facility] Results Test Description Test Time Test Comments Results Result Comments Source POCT GLUCOSE (AUTOMATED) 2021-03-13 17:08:53 Test Item Value Reference Range Interpretation Comme nts POCT GLU (test code = 2240864027) 125 mg/dL 70-110 H Lab Interpretation (test code = 38209-9) Abnormal [facility] GLUCOSE (AUTOMATED)2021-03-13 13:43:14 Test Item Value Reference Range Interpretation Comments POCT GLU (test code = 5887393138) 102 mg/dL 70-110 Lab Interpretation (test code = Normal 53519-4) [facility] GLUCOSE (AUTOMATED)2021-03-13 01:32:16 Test Item Value Reference Range Interpretation Comments POCT GLU (test code = 1257547555) 151 mg/dL 70-110 H Lab Interpretation (test code = Abnormal 89943-7) [facility] [id number] 22:10:14 Test Item Value Reference Range Interpretation Comments NT-proBNP (test code 1680 pg/mL See_Comment H [Autom ated = 3659360145) message] The system which generated this result transmitted reference range : <=450. The reference range was not used to interpret this result as normal/abnormal . CARL (test code = CARL) Biotin has been reported to cause a negative bias, interpret results relative to patient's use of biotin. Lab Interpretation Abnormal (test code = 19236-6) [facility] GLUCOSE (AUTOMATED)2021-03-12 21:33:57 Test Item Value Reference Range Interpretation Comments POCT GLU (test code = 3000628481) 182 mg/dL 70-110 H Lab Interpretation (test code = Abnormal 91609-9) [facility] (NA, K, CL, CO2, GLUCOSE, BUN, CREATININE, CA)2021-03-12 19:36:16 Test Item Value Reference Range Interpretation Comments NA (test code = 133 mmol/L 135-145 L 3409075233) K (test code = 4.7 mmol/L 3.5-5.0 4280761418) CL (test code = 104 mmol/L 98-108 5132738993) CO2 TOTAL (test code = 20 mmol/L 23-31 L 5536448636) AGAP (test code = 2-16 4864581018) BUN (test code = 23 mg/dL 7-23 1690671947) GLUCOSE (test code = 210 mg/dL 70-110 H 9400841946) CREATININE (test code = 1.20 mg/dL 0.50-1.04 H 7218518561) CALCIUM (test code = 9.2 mg/dL 8.6-10.6 8518352525) eGFR (test code = mL/min/1.73m2 4058678871) CARL (test code = CARL) Association of [...] tests). Lab Interpretation Abnormal (test code = 77778-5) [facility] GLUCOSE (AUTOMATED)2021-03-12 16:27:07 Test Item Value Reference Range Interpretation Comments POCT GLU (test code = 5812750793) 136 mg/dL 70-110 H Lab Interpretation (test code = Abnormal 61093-5) [facility] GLUCOSE (AUTOMATED)2021-03-12 12:46:34 Test Item Value Reference Range Interpretation Comments POCT GLU (test code = 2786103878) 93 mg/dL 70-110 Lab Interpretation (test code = Normal 03317-4) [facility] GLUCOSE (AUTOMATED)2021-03-12 10:18:23 Test Item Value Reference Range Interpretation Comments POCT GLU (test code = 0554928397) 143 mg/dL 70-110 H Lab Interpretation (test code = Abnormal 08140-7) [facility] GLUCOSE (AUTOMATED)2021-03-12 10:18:17 Test Item Value Reference Range Interpretation Comments POCT GLU (test code = 8449858636) 94 mg/dL 70-110 Lab Interpretation (test code = Normal 41718-4) [facility] GLUCOSE (AUTOMATED)2021-03-12 01:30:35 Test Item Value Reference Range Interpretation Comments POCT GLU (test code = 4538763696) 167 mg/dL 70-110 H Lab Interpretation (test code = Abnormal 37651-8) [facility] GLUCOSE (AUTOMATED)2021-03-11 21:25:48 Test Item Value Reference Range Interpretation Comments POCT GLU (test code = 0213125722) 145 mg/dL 70-110 H Lab Interpretation (test code = Abnormal 19573-5) [facility] METABOLIC PANEL (NA, K, CL, CO2, GLUCOSE, BUN, CREATININE, CA)2021-03-11 16:22:13 Test Item Value Reference Range Interpretation Comments NA (test code = 134 mmol/L 135-145 L 6973501278) K (test code = 3.3 mmol/L 3.5-5.0 L 8336939523) CL (test code = 103 mmol/L 98-108 8425053311) CO2 TOTAL (test code = 24 mmol/L 23-31 1197236447) AGAP (test code = 2-16 2098677320) BUN (test code = 25 mg/dL 7-23 H 1068092323) GLUCOSE (test code = 144 mg/dL 70-110 H 5017986173) CREATININE (test code = 1.18 mg/dL 0.50-1.04 H 4233223868) CALCIUM (test code = 8.9 mg/dL 8.6-10.6 0381007149) eGFR (test code = mL/min/1.73m2 9616024964) CARL (test code = CARL) Association of [...] tests). Lab Interpretation Abnormal (test code = 08929-9) [facility] COVID [id number] 16:00:45COVID DMT InterpretationInterpretation/Recommendations: Molecular NAAT Tests for [...] COVID-19 testing the patient has had at [facility], including molecular NAAT testing (more commonly known as PCR testing and Rapid ID Now testing) and antibody testing. It does not take into account any testing that a patient has had outside of the [facility] medical record. [facility] LABORATORY SERVICESCOVID Resu [id number] Rapid ID NOW (no units) ? ? Date ? Value ? 03/08/2021 ? Not Detected ? ? ? 02/20/2021 ? Not Detected ? [facility] SERVICESUn[facility]SE (AUTOMATED)2021-03-11 01:41:12 Test Item Value Reference Range Interpretation Comments POCT GLU (test code = 7137257521) 150 mg/dL 70-110 H Lab Interpretation (test code = Abnormal 24037-3) [facility] GLUCOSE (AUTOMATED)2021-03-10 20:54:33 Test Item Value Reference Range Interpretation Comments POCT GLU (test code = 8533357306) 152 mg/dL 70-110 H Lab Interpretation (test code = Abnormal 80884-4) [facility] GLUCOSE (AUTOMATED)2021-03-10 17:21:37 Test Item Value Reference Range Interpretation Comments POCT GLU (test code = 6225076467) 135 mg/dL 70-110 H Lab Interpretation (test code = Abnormal 85216-6) [facility]wallFECAL PATHOGENS BY [id number] 14:47:37 Test Item Value Reference Range Interpretation Comments Campylobacter (jejuni, Negative Negative, coli and upsaliensis) Indeterminate, (test code = 88201-9) See comment Plesiomonas shigelloides Negative Negative, (test code = 61547-3) Indeterminate, See comment Salmonella (test code = Negative Negative, 88582-9) Indeterminate, See comment Yersinia enterocolitica Negative Negative, (test code = 36673-4) Indeterminate, See comment Vibrio (test code = Negative Negative, 10637-5) Indeterminate, See comment Vibrio cholerae (test Negative Negative, code = 32188-9) Indeterminate, See comment Enteroaggregative E. coli Negative Negative, (EAEC) (test code = Indeterminate, 40772-1) See comment Enteropathogenic E. coli Negative Negative, N/A, (EPEC) (test code = Indeterminate, 98106-3) See comment Enterotoxigenic E. coli Negative Negative, (ETEC) (test code = Indeterminate, 30308-6) See comment Shiga toxin-Producing E. Negative Negative, coli (STEC) (test code = Indeterminate, 79634-9) See comment Shigella/Enteroinvasive Negative Negative, E. coli (EIEC) (test code Indeterminate, = 54392-2) See comment Cryptosporidium (test Negative Negative, code = 53945-4) Indeterminate, See comment Cyclospora cayetanensis Negative Negative, (test code = 72420-2) Indeterminate, See comment Entamoeba histolytica Negative Negative, (test code = 47387-2) Indeterminate, See comment Giardia lamblia (test Negative Negative, code = 23016-9) Indeterminate, See comment Adenovirus F 40/41 (test Negative Negative, code = 19675-6) Indeterminate, See comment Astrovirus (test code = Negative Negative, 98613-6) Indeterminate, See comment Norovirus GI/GII (test Negative Negative, code = 18751-3) Indeterminate, See comment Rotavirus A (test code = Negative Negative, 22121-3) Indeterminate, See comment Sapovirus (test code = Negative Negative, 52456-8) Indeterminate, See comment CARL (test code = CARL) Negative:A negative result does not rule-out infection. ?This assay does not test for all potential infectious agents of diarrheal disease. Positive:A positive test result does not necessarily indicate the presence of viable organism. Lab Interpretation (test Normal code = 63847-6) [facility] [id number] 13:28:07 Test Item Value Reference Range Interpretation Comments URINE CULTURE (test No aerobic growth (< code = 630-4) 1000 CFU/mL) [facility]2021-03-10 13:02:24 Test Item Value Reference Range Interpretation Comments POCT GLU (test code = 5529570937) 91 mg/dL 70-110 Lab Interpretation (test code = Normal 36168-8) [facility]wallTROPONIN [id number] 11:08:20 Test Item Value Reference Range Interpretation Comments TROPONIN I (test <0.012 See_Comment [Automated code = 7366368541) message] The system which generated this result [...] ? Lab Interpretation Normal (test code = 45389-9) [facility]MINAL [id number] 11:05:18 Test Item Value Reference Range Interpretation Comments NT-proBNP (test code 1740 pg/mL See_Comment H [Autom ated = 4615097610) message] The system which generated this result transmitted reference range : <=450. The reference range was not used to interpret this result as normal/abnormal . CARL (test code = CARL) Biotin has been reported to cause a negative bias, interpret results relative to patient's use of biotin. Lab Interpretation Abnormal (test code = 87760-2) [facility] METABOLIC PANEL (NA, K, CL, CO2, GLUCOSE, BUN, CREATININE, CA)2021-03-10 10:56:38 Test Item Value Reference Range Interpretation Comments NA (test code = 133 mmol/L 135-145 L 4348683936) K (test code = 4.5 mmol/L 3.5-5.0 1605179028) CL (test code = 106 mmol/L 98-108 5457112138) CO2 TOTAL (test code = 23 mmol/L 23-31 3133099194) AGAP (test code = 2-16 6279386382) BUN (test code = 27 mg/dL 7-23 H 4913461416) GLUCOSE (test code = 112 mg/dL 70-110 H 7434608329) CREATININE (test code = 1.11 mg/dL 0.50-1.04 H 2098641988) CALCIUM (test code = 8.5 mg/dL 8.6-10.6 L 5987212540) eGFR (test code = mL/min/1.73m2 4467788477) CARL (test code = CARL) Association of [...] tests). Lab Interpretation Abnormal (test code = 31027-6) [facility]wall[facility]NESIUM2021-05-23 10:56:38 Test Item Value Reference Range Interpretation Comments MAGNESIUM (test code = 1449576002) 2.0 mg/dL 1.7-2.4 Lab Interpretation (test code = Normal 01893-6) [facility]2021-03-10 01:56:26 Test Item Value Reference Range Interpretation Comments POCT GLU (test code = 7704144769) 229 mg/dL 70-110 H Lab Interpretation (test code = Abnormal 73919-7) [facility] GLUCOSE (AUTOMATED)2021-03-09 22:09:58 Test Item Value Reference Range Interpretation Comments POCT GLU (test code = 3079016055) 141 mg/dL 70-110 H Lab Interpretation (test code = Abnormal 59358-1) [facility] GLUCOSE (AUTOMATED)2021-03-09 18:37:51 Test Item Value Reference Range Interpretation Comments POCT GLU (test code = 7078174231) 229 mg/dL 70-110 H Lab Interpretation (test code = Abnormal 28617-7) [facility] GLUCOSE (AUTOMATED)2021-03-09 13:56:35 Test Item Value Reference Range Interpretation Comments POCT GLU (test code = 5981219357) 181 mg/dL 70-110 H Lab Interpretation (test code = Abnormal 54373-3) [facility] Metabolic Panel (NA, K, CL, CO2, GLUCOSE, BUN, CREATININE, CA)2021-03-09 10:31:38 Test Item Value Reference Range Interpretation Comments NA (test code = 133 mmol/L 135-145 L 3788696255) K (test code = 3.9 mmol/L 3.5-5.0 9002369917) CL (test code = 104 mmol/L 98-108 1966564374) CO2 TOTAL (test code = 20 mmol/L 23-31 L 3923931708) AGAP (test code = 2-16 9814913665) BUN (test code = 24 mg/dL 7-23 H 6465705582) GLUCOSE (test code = 178 mg/dL 70-110 H 7222505342) CREATININE (test code = 1.14 mg/dL 0.50-1.04 H 2365703740) CALCIUM (test code = 9.1 mg/dL 8.6-10.6 5321235192) eGFR (test code = mL/min/1.73m2 8587982620) CARL (test code = CARL) Association of [...] tests). Lab Interpretation Abnormal (test code = 75024-0) [facility] acute hospital with [id number] 09:24:40 Test Item Value Reference Range Interpretation Comments WBC (test code = See_Comment [Automated 4090-2) message] The sy stem which generated this result transmitted reference range : 4.30 - 11.10 10*3/?L. The reference range was not used to interpret this result as normal/abnormal . RBC (test code = See_Comment L [Automated 039-8) message] The sy stem which generated this [...] (test code = 50.2 fL 39.0-49.9 H 11833-4) RDW-CV (test code = 14.9 % 12.0-15.5 788-0) PLT (test code = See_Comment [Automated 777-3) message] The sy stem which generated this result transmitted reference range : 166 - 358 10*3/ ?L. The reference r cheyanne was not used to interpret this result as normal/abnormal . MPV (test code = 10.1 fL 9.5-12.9 33463-4) NRBC/100 WBC (test See_Comment [Automat ed code = 2058773695) message] The system which generated this result transmitted reference range : 0.0 - 10.0 /100 WBCs. The refer ence range was not u sed to interpret th is result as normal/abnormal . NRBC x10^3 (test code <0.01 See_Comment [Auto mated = 0473335484) message] The s ystem which generated this result transmitted reference range : 10*3/?L. The reference range was not used to interpret this result as normal/abnormal . GRAN MAT (NEUT) % 66.3 % (test code = 770-8) IMM GRAN % (test code 0.40 % = 0626878702) LYMPH % (test code = 28.5 % 736-9) MONO % (test code = 4.6 % 5905-5) EOS % (test code = 0.0 % 713-8) BASO % (test code = 0.2 % 706-2) GRAN MAT x10^3(ANC) 3.61 10*3/uL 1.88-7.09 (test code = 5267993983) IMM GRAN x10^3 (test <0.03 0.00-0.06 code = 0031573611) LYMPH x10^3 (test code 1.55 10*3/uL 1.32-3.29 = 731-0) MONO x10^3 (test code 0.25 10*3/uL 0.33-0.92 L = 742-7) EOS x10^3 (test code = <0.03 0.03-0.39 L 711-2) BASO x10^3 (test code <0.03 0.01-0.07 = 704-7) Lab Interpretation Abnormal (test code = 90790-4) [facility]wallCLOSTRIDIUM DIFFICILE [id number] 07:37:08 Test Item Value Reference Range Interpretation Comments Clostridioides (Clostridium) Positive Negative A difficile (test code = 13733-4) Lab Interpretation (test code = Abnormal 55201-3) [facility] RockwallXR CHEST 1 [id number] 02:33:53No active pulmonary disease. RL: 5611 END [...] normal.IMPRESSIONNo active pulmonary disease.RL: 5611END OF REPORT [facility] RockwallD-[id number] 02:08:51 Test Item Value Reference Interpretation Comments Range D-DIMER (test code = See_Comment H [Autom ated 3786096822) message] The system which generated this result [...] diagnosis. Lab Interpretation Abnormal (test code = 53281-4) [facility]INAL[facility]IS2021-05-21 19:36:24 Test Item Value Reference Range Interpretation Comments APPEARANCE (test code = Clear Clear 0890967776) COLOR (test code = Yellow Yellow 3446577254) PH (test code = 4.8-8.0 1025405292) SP GRAVITY (test code = 1.003-1.030 1779200934) GLU U QUAL (test code = Normal Normal 1762091246) BLOOD (test code = Negative Negative 6224105808) KETONES (test code = 5 mg/dL Negative A 8257019069) PROTEIN (test code = Negative Negative 2887-8) UROBILIN (test code = Normal Normal 3926579719) BILIRUBIN (test code = Negative Negative 8896312286) NITRITE (test code = Negative Negative 1638824124) LEUK NATHAN (test code = Negative Negative 1691831670) RBC/HPF (test code = <1 See_Comment [Autom ated message] 2026111499) The system Truli generated this result transmitted ref erence range: 0 - 3 HP F. The reference range was not used to int erpret this result as normal/abnormal . WBC/HPF (test code = <1 See_Comment [Autom ated message] 4028645422) The system Truli generated this result transmitted ref erence range: 0 - 5 HP F. The reference range was not used to int erpret this result as normal/abnormal . BACTERIA (test code = Negative Negative 2064571085) Lab Interpretation (test Abnormal code = 03701-6) [facility]OVID[facility] (ID NOW RAPID TESTING)2021-03-08 19:25:38 Test Item Value Reference Range Interpretation Comments SARS-CoV-2 Rapid ID NOW Not Detected Not Detected (test code = 51700-9) CARL (test code = CARL) ID NOW COVID-19 Assay is an isothermal nucleic acid amplification test intended for the qualitative detection of nucleic acid from SARS-CoV-2 viral RNA in nasopharyngeal (TOWER SWITCH OPERATOR) specimens. It is used under Emergency Use [...] indicated. Lab Interpretation Normal (test code = 30502-5) [facility]wall[facility] [id number] 18:26:20 Test Item Value Reference Range Interpretation Comments FREE T4 (test code = See_Comment H [Autom ated message] 0821090211) The system Truli generated this result transmitted ref erence range: 0.78 - 2 .20 ng/dL:. The ref erence range was not u sed to interpret this result as normal/abnor mal. Lab Interpretation (test Abnormal code = 04120-5) [facility]wallCT ABDOMEN PELVIS W [id number] 18:17:23 1. ?No acute intra-abdominal abnormality. 2. ?Colonic diverticulosis. 3. Unchanged pancreatic cystic lesions which may represent IPMN or othercystic pancreatic tumor/lesions. If prior evaluation wasnot performed,recommend follow- up with MRI pancreas. Preliminary Report Dictated by Resident: Skylar Lee MD., have reviewed this study and agree [...] have reviewed this study and agree withtheabove report.[facility]wallCT CHEST PULMONARY [id number] 18:05:18 No pulmonary emboli. Colonic diverticulosis and [...] pulmonary emboli.Colonic diverticulosis and a small hiatal hernia.[facility] RockwallTHYROID STIMULATING [id number] 17:33:13 Test Item Value Reference Range Interpretation Comments TSH (test code = See_Comment [Automated message] 2687151302) The system Truli generated this result transmitted ref erence range: 0.45 - 4 .70 mIU/L. The refe rence range was not u sed to interpret this result as normal/abnor mal. Lab Interpretation (test Normal code = 48824-8) [facility]wallTROPONIN [id number] 17:14:54 Test Item Value Reference Range Interpretation Comments TROPONIN I (test <0.012 See_Comment [Automated code = 6836612450) message] The system which generated this result [...] ? Lab Interpretation Normal (test code = 49580-9) [facility]wall[facility]-TERMINAL [id number] 17:11:55 Test Item Value Reference Range Interpretation Comments NT-proBNP (test code 861 pg/mL See_Comment H [Autom ated = 7283524087) message] The system which generated this result transmitted reference range : <=450. The reference range was not used to interpret this result as normal/abnormal . CARL (test code = CARL) Biotin has been reported to cause a negative bias, interpret results relative to patient's use of biotin. Lab Interpretation Abnormal (test code = 05527-3) [facility] RockwallCOMP. METABOLIC PANEL (66198)2021-03-08 17:02:50 Test Item Value Reference Range Interpretation Comments NA (test code = 136 mmol/L 135-145 1921520089) K (test code = 3.2 mmol/L 3.5-5.0 L 5172749592) CL (test code = 102 mmol/L 98-108 0143266429) CO2 TOTAL (test code = 24 mmol/L 23-31 6718137927) AGAP (test code = 2-16 0472716992) BUN (test code = 18 mg/dL 7-23 0397756120) GLUCOSE (test code = 80 mg/dL 70-110 8090755401) CREATININE (test code = 1.12 mg/dL 0.50-1.04 H 6742942840) TOTAL BILI (test code = 0.6 mg/dL 0.1-1.0 3769023697) CALCIUM (test code = 8.9 mg/dL 8.6-10.6 7848481270) T PROTEIN (test code = 5.8 g/dL 6.3-8.2 L 2567303212) ALBUMIN (test code = 3.3 g/dL 3.5-5.0 L 1444355789) ALK PHOS (test code = 83 U/L 34-122 0078580686) ALTv (test code = 14 U/L 5-35 2-6) AST(SGOT) (test code = 27 U/L 13-40 3694879347) eGFR (test code = mL/min/1.73m2 0303668691) CARL (test code = CARL) Association of [...] tests). Lab Interpretation Abnormal (test code = 46854-5) [facility] RockwallLIPASE, [id number] 17:02:29 Test Item Value Reference Range Interpretation Comments LIPASE (test code = 9514477240) 189 U/L 0-220 Lab Interpretation (test code = Normal 99845-2) [facility] RockwallCB WITH [id number] 17:00:16 Test Item Value Reference Range Interpretation [...] (test code = 50.5 fL 39.0-49.9 H 06906-9) RDW-CV (test code = 15.0 % 12.0-15.5 788-0) PLT (test code = See_Comment H [Automated 777-3) message] The sy stem which generated this result transmitted reference range : 166 - 358 10*3/ ?L. The reference r cheyanne was not used to interpret this result as normal/abnormal . MPV (test code = 9.7 fL 9.5-12.9 72263-8) NRBC/100 WBC (test See_Comment [Automat ed code = 8293060189) message] The system which generated this result transmitted reference range : 0.0 - 10.0 /100 WBCs. The refer ence range was not u sed to interpret th is result as normal/abnormal . NRBC x10^3 (test code <0.01 See_Comment [Auto mated = 3172388534) message] The s ystem which generated this result transmitted reference range : 10*3/?L. The reference range was not used to interpret this result as normal/abnormal . GRAN MAT (NEUT) % 24.4 % (test code = 770-8) IMM GRAN % (test code 0.30 % = 7088305050) LYMPH % (test code = 57.6 % 736-9) MONO % (test code = 14.8 % 5905-5) EOS % (test code = 2.0 % 713-8) BASO % (test code = 0.9 % 706-2) GRAN MAT x10^3(ANC) 2.31 10*3/uL 1.88-7.09 (test code = 8259037549) IMM GRAN x10^3 (test 0.03 10*3/uL 0.00-0.06 code = 0308479085) LYMPH x10^3 (test code 5.46 10*3/uL 1.32-3.29 H = 731-0) MONO x10^3 (test code 1.40 10*3/uL 0.33-0.92 H = 742-7) EOS x10^3 (test code = 0.19 10*3/uL 0.03-0.39 711-2) BASO x10^3 (test code 0.09 10*3/uL 0.01-0.07 H = 704-7) Lab Interpretation Abnormal (test code = 62088-2) [facility]11 Test Item Value Reference Range Interpretation Comments APTT Patient (test See_Comment [Automat ed code = 3173-2) message] The system which generated this result transmitted reference range : 23 - 38 Seconds . The reference range was not used to interpr et this result as normal/abnormal . CARL (test code = CARL) The [facility] patient population mean normal value for aPTT is 30 seconds. Lab Interpretation Normal (test code = 64308-3) [facility]wallPROTHROMBIN TIME / [id number] 16:58:08 Test Item Value Reference Range Interpretation Comments PROTIME PATIENT (test See_Comment [Auto mated message] code = 5964-2) The system [email or web address] generated this result transmitted ref erence range: 12.0 - 1 4.7 Seconds. The re ference range was not u sed to interpret this result as normal/abnor mal. INR (test code = 6301-6) Nor mal INR <1.1; Warfarin Therap eutic range 2.0 to 3. 0 or 2.5 to 3.5, dep ending upon the indica tions. Lab Interpretation (test Normal code = 08927-4) [facility]2021-[facility]-22 17:14:54 Test Item Value Reference Range Interpretation Comments POCT GLU (test code = 2236915707) 228 mg/dL 70-110 H Lab Interpretation (test code = Abnormal 00895-6) [facility] COVID [id number] 15:07:04COVID DMT InterpretationInterpretation/Recommendations: Molecular NAAT Tests for [...] COVID-19 testing the patient has had at [facility], including molecular NAAT testing (more commonly known as PCR testing and Rapid ID Now testing) and antibody testing. It does not take into accountany testing that a patient has had outside of the [facility] medical record. [facility] LABORATORY SERVICESCOVID CrybaqoZUKA-WwU-6 Rapid ID NOW (no units) ? ? Date ? Value ? 02/20/2021 ? Not Detected ? [facility] LABORATORY SERVICES [facility]2021-02-22 13:41:36 Test Item Value Reference Range Interpretation Comments POCT GLU (test code = 2824739614) 242 mg/dL 70-110 H Lab Interpretation (test code = Abnormal 63829-2) [facility] [id number] 12:26:08 Test Item Value Reference Range Interpretation Comments URINE CULTURE (test No aerobic growth (< code = 630-4) 1000 CFU/mL) [facility]wallN-TERMINAL [id number] 10:40:25 Test Item Value Reference Range Interpretation Comments NT-proBNP (test code 1440 pg/mL See_Comment H [Autom ated = 9363451090) message] The system which generated this result transmitted reference range : <=450. The reference range was not used to interpret this result as normal/abnormal . CARL (test code = CARL) Biotin has been reported to cause a negative bias, interpret results relative to patient's use of biotin. Lab Interpretation Abnormal (test code = 06087-5) [facility]. METABOLIC PANEL (19372)2021-02-22 10:34:04 Test Item Value Reference Range Interpretation Comments NA (test code = 132 mmol/L 135-145 L 5993574215) K (test code = 4.7 mmol/L 3.5-5.0 9990194744) CL (test code = 105 mmol/L 98-108 3440254653) CO2 TOTAL (test code = 20 mmol/L 23-31 L 6893114980) AGAP (test code = 2-16 4243955477) BUN (test code = 22 mg/dL 7-23 0783396524) GLUCOSE (test code = 212 mg/dL 70-110 H 4328957950) CREATININE (test code = 1.13 mg/dL 0.50-1.04 H 6638882360) TOTAL BILI (test code = 0.2 mg/dL 0.1-1.9 1897277553) CALCIUM (test code = 7.8 mg/dL 8.6-10.6 L 1992711973) T PROTEIN (test code = 5.1 g/dL 6.3-8.2 L 1737869621) ALBUMIN (test code = 2.8 g/dL 3.5-5.0 L 4174072407) ALK PHOS (test code = 38 U/L 34-122 1919544760) ALTv (test code = 13 U/L 5-35 1742-6) AST(SGOT) (test code = 21 U/L 13-40 9956770845) eGFR (test code = mL/min/1.73m2 4544543533) CARL (test code = CARL) Association of [...] tests). Lab Interpretation Abnormal (test code = 18601-7) [facility]UM2021-05-07 10:34:04 Test Item Value Reference Range Interpretation Comments MAGNESIUM (test code = 6117167803) 1.9 mg/dL 1.7-2.4 Lab Interpretation (test code = Normal 10026-3) [facility] [id number] 10:33:44 Test Item Value Reference Range Interpretation Comments URIC ACID (test code = 2046543118) 3.6 mg/dL 2.9-6.0 Lab Interpretation (test code = Normal 33719-7) General acute hospital WITH [id number] 10:04:39 Test Item Value Reference Range Interpretation Comments WBC (test code = See_Comment [Automated 8790-2) message] The sy stem which generated this result transmitted reference range : 4.30 - 11.10 10*3/?L. The reference range was not used to interpret this result as normal/abnormal . RBC (test code = See_Comment L [Automated 759-8) message] The sy stem which generated this [...] RDW-SD (test code = 49.0 fL 39.0-49.9 59767-7) RDW-CV (test code = 14.8 % 12.0-15.5 788-0) PLT (test code = See_Comment [Automated 777-3) message] The sy stem which generated this result transmitted reference range : 166 - 358 10*3/ ?L. The reference r cheyanne was not used to interpret this result as normal/abnormal . MPV (test code = 9.8 fL 9.5-12.9 16037-0) NRBC/100 WBC (test See_Comment [Automat ed code = 9186512983) message] The system which generated this result transmitted reference range : 0.0 - 10.0 /100 WBCs. The refer ence range was not u sed to interpret th is result as normal/abnormal . NRBC x10^3 (test code <0.01 See_Comment [Auto mated = 7290987108) message] The s ystem which generated this result transmitted reference range : 10*3/?L. The reference range was not used to interpret this result as normal/abnormal . GRAN MAT (NEUT) % 82.0 % (test code = 770-8) IMM GRAN % (test code 0.80 % = 0047561892) LYMPH % (test code = 10.2 % 736-9) MONO % (test code = 6.8 % 5905-5) EOS % (test code = 0.0 % 713-8) BASO % (test code = 0.2 % 706-2) GRAN MAT x10^3(ANC) 8.25 10*3/uL 1.88-7.09 H (test code = 7964926154) IMM GRAN x10^3 (test 0.08 10*3/uL 0.00-0.06 H code = 4942797046) LYMPH x10^3 (test code 1.03 10*3/uL 1.32-3.29 L = 731-0) MONO x10^3 (test code 0.68 10*3/uL 0.33-0.92 = 742-7) EOS x10^3 (test code = <0.03 0.03-0.39 L 711-2) BASO x10^3 (test code <0.03 0.01-0.07 = 704-7) Lab Interpretation Abnormal (test code = 69463-8) [facility] GLUCOSE (AUTOMATED)2021-02-22 02:20:17 Test Item Value Reference Range Interpretation Comments POCT GLU (test code = 7209164939) 318 mg/dL 70-110 H Lab Interpretation (test code = Abnormal 68542-4) [facility]wallVITAMIN B12, [id number] 21:50:20 Test Item Value Reference Range Interpretation Comments VIT B12 (test code = 434 pg/mL 240-930 4805809779) CARL (test code = CARL) Biotin has been reported to cause a positive bias, interpret results relative to patient's use of biotin. Lab Interpretation (test Normal code = 49826-1) [facility] GLUCOSE (AUTOMATED)2021-02-21 21:19:53 Test Item Value Reference Range Interpretation Comments POCT GLU (test code = 0842062744) 335 mg/dL 70-110 H Lab Interpretation (test code = Abnormal 03553-1) [facility]wallLEGIONELLA URINARY ANTIGEN [id number] 19:47:22 Test Item Value Reference Range Interpretation Comments Legionella Urinary Negative Negative Antigen (test code = 6078928129) CARL (test code = CARL) Negative for [...] test. Lab Interpretation (test Normal code = 13587-2) [facility]wallPROCALCITONIN2021-05-06 16:59:40 Test Item Value Reference Range Interpretation Comments Procalcitonin (test 0.08 ng/mL <0.07 H code = 3203173749) CARL (test code = CARL) INTERPRETATION OF [...] lung abscess/empyema. For further information please refer to:[email or web address] Lab Interpretation Abnormal (test code = 21233-4) [facility]OMATED)2021-02-21 16:58:53 Test Item Value Reference Range Interpretation Comments POCT GLU (test code = 9713814609) 353 mg/dL 70-110 H Lab Interpretation (test code = Abnormal 95041-0) [facility]wallVITAMIN D, [id number] 16:35:33 Test Item Value Reference Range Interpretation Comments VIT D 25OH (test code = 27 ng/mL 25-80 81391-1) CARL (test code = CARL) Deficiency: <20 ng/mLInsufficiency : 20-24 ng/mLOptimal: 25-80 ng/mL Lab Interpretation (test Normal code = 76091-5) [facility]wallOSMOLALITY [id number] 16:00:43 Test Item Value Reference Range Interpretation Comments OSMO U (test code = See_Comment [Automa roxanna message] 4895172120) The system [employer] generated this result transmitted ref erence range: 50-1,100 mOsm/kg. The re ference range was not u sed to interpret this result as normal/abnor mal. Lab Interpretation (test Normal code = 52770-6) [facility]wallOSMOLALITY, SERUM OR [id number] 15:57:18 Test Item Value Reference Range Interpretation Comments OSMOLALITY (test code = See_Comment [Au tomated message] 0973750645) The system [employer] generated this result transmitted ref erence range: 278 - 30 5 mOsm/kg. The re ference range was not u sed to interpret this result as normal/abnor mal. Lab Interpretation (test Normal code = 73596-2) [facility] RockwallSEDIMENTATION [id number] 14:17:02 Test Item Value Reference Range Interpretation Comments ESR (test code = See_Comment H [Automated message] 5785271436) The system [employer] generated this result transmitted ref erence range: 0 - 20 m m/HR. The reference r cheyanne was not used to interpret this result as normal/abnor mal. Lab Interpretation (test Abnormal code = 88372-3) [facility]wallXR SHOULDER 2+ VW [id number] 13:53:22 Anterior dislocation of the right shoulder. [...] right shoulder.RL: 5611END OF REPORT [facility]PO[facility]2021-02-21 13:09:09 Test Item Value Reference Range Interpretation Comments POCT GLU (test code = 6368528431) 209 mg/dL 70-110 H Lab Interpretation (test code = Abnormal 96779-1) [facility] RockwallTROPONIN [id number] 12:13:42 Test Item Value Reference Range Interpretation Comments TROPONIN I (test 0.025 ng/mL See_Comment [Automated code = 8230509167) message] The system which generated this result transmitted reference range : <=0.034. The reference range was not used to interpret this result as normal/abnormal . CRAL (test code = Equal or Less than [...] ? Lab Interpretation Normal (test code = 20056-3) [facility]wallN-TERMINAL [id number] 12:10:24 Test Item Value Reference Range Interpretation Comments NT-proBNP (test code 1490 pg/mL See_Comment H [Autom ated = 2449453129) message] The system which generated this result transmitted reference range : <=450. The reference range was not used to interpret this result as normal/abnormal . CARL (test code = CARL) Biotin has been reported to cause a negative bias, interpret results relative to patient's use of biotin. Lab Interpretation Abnormal (test code = 24337-2) [facility]wallCOMP. METABOLIC PANEL (36121)2021-02-21 12:09:43 Test Item Value Reference Range Interpretation Comments NA (test code = 131 mmol/L 135-145 L 2339473335) K (test code = 4.1 mmol/L 3.5-5.0 1642273928) CL (test code = 96 mmol/L 98-108 L 2882520084) CO2 TOTAL (test code = 26 mmol/L 23-31 5425709471) AGAP (test code = 2-16 8882121847) BUN (test code = 19 mg/dL 7-23 9076578693) GLUCOSE (test code = 90 mg/dL 70-110 8433074007) CREATININE (test code = 0.98 mg/dL 0.50-1.04 6179706038) TOTAL BILI (test code = 0.7 mg/dL 0.1-1.3 2273037643) CALCIUM (test code = 7.9 mg/dL 8.6-10.6 L 2984376008) T PROTEIN (test code = 5.4 g/dL 6.3-8.2 L 0579633143) ALBUMIN (test code = 3.0 g/dL 3.5-5.0 L 0101340332) ALK PHOS (test code = 37 U/L 34-122 1081697060) ALTv (test code = 13 U/L 5-35 1742-6) AST(SGOT) (test code = 35 U/L 13-40 0077949152) eGFR (test code = mL/min/1.73m2 3880559452) CARL (test code = CARL) Association of [...] tests). Lab Interpretation Abnormal (test code = 69735-4) [facility]wall[facility]NESIUM2021-05-06 12:05:19 Test Item Value Reference Range Interpretation Comments MAGNESIUM (test code = 7272538073) 1.7 mg/dL 1.7-2.4 Lab Interpretation (test code = Normal 19662-1) [facility]wallURIC [id number] 12:04:59 Test Item Value Reference Range Interpretation Comments URIC ACID (test code = 4697072290) 4.0 mg/dL 2.9-6.0 Lab Interpretation (test code = Normal 89685-6) General acute hospital WITH [id number] 11:43:56 Test Item Value Reference Range Interpretation [...] RDW-SD (test code = 47.8 fL 39.0-49.9 99092-2) RDW-CV (test code = 14.8 % 12.0-15.5 788-0) PLT (test code = See_Comment [Automated 777-3) message] The sy stem which generated this result transmitted reference range : 166 - 358 10*3/ ?L. The reference r cheyanne was not used to interpret this result as normal/abnormal . MPV (test code = 10.2 fL 9.5-12.9 10150-4) NRBC/100 WBC (test See_Comment [Automat ed code = 2272192494) message] The system which generated this result transmitted reference range : 0.0 - 10.0 /100 WBCs. The refer ence range was not u sed to interpret th is result as normal/abnormal . NRBC x10^3 (test code <0.01 See_Comment [Auto mated = 6022368521) message] The s ystem which generated this result transmitted reference range : 10*3/?L. The reference range was not used to interpret this result as normal/abnormal . GRAN MAT (NEUT) % 81.3 % (test code = 770-8) IMM GRAN % (test code 0.70 % = 7918579470) LYMPH % (test code = 13.7 % 736-9) MONO % (test code = 3.0 % 5905-5) EOS % (test code = 0.6 % 713-8) BASO % (test code = 0.7 % 706-2) GRAN MAT x10^3(ANC) 4.41 10*3/uL 1.88-7.09 (test code = 0752222294) IMM GRAN x10^3 (test 0.04 10*3/uL 0.00-0.06 code = 7843537429) LYMPH x10^3 (test code 0.74 10*3/uL 1.32-3.29 L = 731-0) MONO x10^3 (test code 0.16 10*3/uL 0.33-0.92 L = 742-7) EOS x10^3 (test code = 0.03 10*3/uL 0.03-0.39 711-2) BASO x10^3 (test code 0.04 10*3/uL 0.01-0.07 = 704-7) Lab Interpretation Abnormal (test code = 58651-0) [facility]wallCT ABDOMEN PELVIS W [id number] 09:25:19 No defined focal acute inflammatory process. [...] Degenerative changes in the lumbarspine RL: 109AF: 27832 End of report Examination: Computed tomography of [...] appropriate. Degenerative changes in the lumbarspineRL: 109AFC: 51868Qsr of report [facility]CT HEAD WO [id number] 09:17:191. ?No acute intracranial abnormality. RL: 6200 AFC: 49318Llx of report. ORDERING PHYSICIAN: TYRON REYES CLINICAL [...] - 02/21/2021 4:18 AM CDTORDERING PHYSICIAN: TYRON MENDOZAINICAL HISTORY:Dizziness, non-specific head injury TECHNIQUE:CT of the [...] clear.IMPRESSION1. No acute intracranial abnormality.RL: 6200 AFC: 65429Odi of report. [facility]POCT GLU[facility]SE (AUTOMATED)2021-02-21 07:45:22 Test Item Value Reference Range Interpretation Comments POCT GLU (test code = 8510383156) 138 mg/dL 70-110 H Lab Interpretation (test code = Abnormal 93869-8) [facility]wallTROPONIN [id number] 07:16:11 Test Item Value Reference Range Interpretation Comments TROPONIN I (test 0.031 ng/mL See_Comment [Automated code = 2796158552) message] The system which generated this result [...] ? Lab Interpretation Normal (test code = 15245-4) [facility]wallIRON [id number] 07:13:30 Test Item Value Reference Range Interpretation Comments IRON (test code = 9216288717) 27 ug/dL 50-160 L TIBC (test code = 4815260258) 224 ug/dL 250-410 L % FE SAT (test code = 7415378616) 12 % 20-50 L Lab Interpretation (test code = Abnormal 52786-8) [facility] RockwallPROTHROMBIN TIME / [id number] 06:48:08 Test Item Value Reference Range Interpretation Comments PROTIME PATIENT (test See_Comment [Auto mated message] code = 5964-2) The system [email or web address] generated this result transmitted ref erence range: 12.0 - 1 4.7 Seconds. The re ference range was not u sed to interpret this result as normal/abnor mal. INR (test code = 6301-6) Nor mal INR <1.1; Warfarin Therap eutic range 2.0 to 3. 0 or 2.5 to 3.5, dep ending upon the indica tions. Lab Interpretation (test Normal code = 63126-7) [facility] RockwallFERRITIN [id number] 06:23:04 Test Item Value Reference Range Interpretation Comments FERRITIN (test code = 112.0 ng/mL 11.0-264.0 7776911534) CARL (test code = CARL) Biotin has been reported to cause a negative bias, interpret results relative to patient's use of biotin. Lab Interpretation (test Normal code = 52075-3) [facility] RockwallTHYROID STIMULATING [id number] 06:20:07 Test Item Value Reference Range Interpretation Comments TSH (test code = See_Comment [Automated message] 0946518445) The system [employer] generated this result transmitted ref erence range: 0.45 - 4 .70 mIU/L. The refe rence range was not u sed to interpret this result as normal/abnor mal. Lab Interpretation (test Normal code = 11047-2) [facility] RockwallGLYCOSYLATED HEMOGLOBIN (A1C)2021-02-21 06:16:28 Test Item Value Reference Range Interpretation Comments HGB A1C (test code = 5.5 % 4.0-5.7 4548-4) CARL (test code = CARL) Reference RangesNormal: <5.7%Prediabetes: 5.7 - 6.4%Diabetes: > 6.5% Lab Interpretation (test Normal code = 69897-4) [facility]wallPROTEIN CREAT RATIO URINE [id number] 05:59:37 Test Item Value Reference Range Interpretation Comments T. PROT U (test code = 2888-6) 17 mg/dL CREAT U (test code = 1237676685) 34.5 mg/dL Protein/Creatinine Ratio Urine 0.0-2.0 (test code = 8356536008) [facility]wallPHOSPHORUS2021-05-06 05:59:02 Test Item Value Reference Range Interpretation Comments PHOSPHORUS (test code = 1527856974) 4.7 mg/dL 2.5-5.0 Lab Interpretation (test code = Normal 11098-7) [facility]wallURIC [id number] 05:58:57 Test Item Value Reference Range Interpretation Comments URIC ACID (test code = 9951378821) 3.5 mg/dL 2.9-6.0 Lab Interpretation (test code = Normal 28890-7) [facility] RockwallCREATINE [id number] 05:58:47 Test Item Value Reference Range Interpretation Comments CK (test code = 1493468017) 26 U/L 33-194 L Lab Interpretation (test code = Abnormal 48513-0) [facility]wallMAGNESIUM2021-05-06 05:58:42 Test Item Value Reference Range Interpretation Comments MAGNESIUM (test code = 9923377371) 1.7 mg/dL 1.7-2.4 Lab Interpretation (test code = Normal 92107-4) [facility]wallPOCT GLUCOSE (AUTOMATED)2021-02-21 05:57:21 Test Item Value Reference Range Interpretation Comments POCT GLU (test code = 9146813782) 59 mg/dL 70-110 L Lab Interpretation (test code = Abnormal 97458-5) [facility] RockwallSODIUM, URINE [id number] 05:55:36 Test Item Value Reference Range Interpretation Comments NA URINE (test code = 6409091995) 69 mmol/L [facility] RockwallLIPID PANEL (16299)(TOTAL CHOLESTEROL, TRIGLYCERIDES, HDL)2021-02-21 05:48:17 Test Item Value Reference Range Interpretation Comments CHOL (test code = 136 mg/dL 120-200 3852269792) HDL (test code = 75 mg/dL >50 1595549123) HDLC RATIO (test code = See_Comment [Au tomated message] 0063399291) The system [employer] generated this result transmit roxanna reference range : <=4.5. The refe rence range was not u sed to interpret th is result as normal/abnormal . TRIG (test code = 158 mg/dL 30-170 9546860432) LDL CHOL (test code = 29 mg/dL See_Comment [Auto mated message] 64887-5) The system [employer] generated this result transmit roxanna reference range : <=160. The refe rence range was not u sed to interpret th is result as normal/abnormal . VLDL (test code = 32 mg/dL 5-60 5986696241) Lab Interpretation (test Normal code = 97571-1) [facility] RockwallXR HUMERUS 2 VW [id number] 00:20:13 1. ?No fracture. 2. Possible glenohumeral [...] an acute wristinjury dedicated wrist films recommended. [facility], Radiant Results Inft User - 02/20/2021 7:21 [...] Poon MD at 02/20/2021 7:20 PMUnTexas [facility] PlanoXR FOREARM 2 VW [id number] 00:20:13 1. ?No fracture. 2. Possible glenohumeral [...] an acute wristinjury dedicated wrist films recommended. [facility], Radiant Results Inft User - 02/20/2021 7:21 [...] Poon MD at 02/20/2021 7:20 PMUnTexas [facility] [id number] 22:41:33 Test Item Value Reference Range Interpretation Comments APPEARANCE (test code = Hazy Clear A 2770735269) COLOR (test code = Yellow Yellow 7687138854) PH (test code = 4.8-8.0 9391956789) SP GRAVITY (test code = 1.003-1.030 1137683949) GLU U QUAL (test code = Normal Normal 3862371626) BLOOD (test code = Negative Negative 6560564266) KETONES (test code = 20 mg/dL Negative A 4722509669) PROTEIN (test code = Negative Negative 2887-8) UROBILIN (test code = Normal Normal 4244309655) BILIRUBIN (test code = Negative Negative 3036006759) NITRITE (test code = Negative Negative 3678671417) LEUK NATHAN (test code = 250/uL Negative A 6988353027) RBC/HPF (test code = See_Comment [Autom ated message] 7528810302) The system [employer] generated this result transmitted ref erence range: 0 - 3 HP F. The reference range was not used to int erpret this result as normal/abnormal . WBC/HPF (test code = See_Comment H [Autom ated message] 1829847076) The system [employer] generated this result transmitted ref erence range: 0 - 5 HP F. The reference range was not used to int erpret this result as normal/abnormal . BACTERIA (test code = Many Negative A 7194190821) MUCOUS (test code = Moderate Negative LPF A 9247674792) Lab Interpretation (test Abnormal code = 61246-5) [facility]wallCOVID-19 (ID NOW RAPID TESTING)2021-02-20 22:40:01 Test Item Value Reference Range Interpretation Comments SARS-CoV-2 Rapid ID NOW Not Detected Not Detected (test code = 11074-5) CARL (test code = CARL) ID NOW COVID-19 Assay is an isothermal nucleic acid amplification test intended for the qualitative detection of nucleic acid from SARS-CoV-2 viral RNA in nasopharyngeal (TOWER SWITCH OPERATOR) specimens. It is used under Emergency Use [...] indicated. Lab Interpretation Normal (test code = 07526-9) [facility] RockwallSAUD [id number] 21:58:52 Test Item Value Reference Range Interpretation Comments TROPONIN I (test 0.019 ng/mL See_Comment [Automated code = 8344374521) message] The system which generated this result [...] ? Lab Interpretation Normal (test code = 48451-9) [facility] RockwallN-TERMINAL [id number] 21:53:51 Test Item Value Reference Range Interpretation Comments NT-proBNP (test code 1840 pg/mL See_Comment H [Autom ated = 4250519658) message] The system which generated this result transmitted reference range : <=450. The reference range was not used to interpret this result as normal/abnormal . CARL (test code = CARL) Biotin has been reported to cause a negative bias, interpret results relative to patient's use of biotin. Lab Interpretation Abnormal (test code = 84065-9) [facility] RockwallCOMP. METABOLIC PANEL (27365)2021-02-20 21:50:26 Test Item Value Reference Range Interpretation Comments NA (test code = 129 mmol/L 135-145 L 3960154952) K (test code = 3.4 mmol/L 3.5-5.0 L 9360016000) CL (test code = 94 mmol/L 98-108 L 1727008833) CO2 TOTAL (test code = 24 mmol/L 23-31 3021150540) AGAP (test code = 2-16 9510582105) BUN (test code = 18 mg/dL 7-23 3056603673) GLUCOSE (test code = 62 mg/dL 70-110 L 9275558920) CREATININE (test code = 1.00 mg/dL 0.50-1.04 4420245080) TOTAL BILI (test code = 0.9 mg/dL 0.1-1.3 7423548080) CALCIUM (test code = 8.5 mg/dL 8.6-10.6 L 9951885922) T PROTEIN (test code = 5.8 g/dL 6.3-8.2 L 7892777716) ALBUMIN (test code = 3.4 g/dL 3.5-5.0 L 5426525710) ALK PHOS (test code = 49 U/L 34-122 5092530949) ALTv (test code = 15 U/L 5-35 1742-6) AST(SGOT) (test code = 28 U/L 13-40 9884166031) eGFR (test code = mL/min/1.73m2 4648691900) CARL (test code = CARL) Association of [...] tests). Lab Interpretation Abnormal (test code = 90023-0) [facility] Test Item Value Reference Range Interpretation Comments LIPASE (test code = 7140642138) 86 U/L 0-220 Lab Interpretation (test code = Normal 01226-4) [facility] WITH [id number] 21:25:40 Test Item Value Reference Range Interpretation Comments WBC (test code = See_Comment [Automated 9290-2) message] The sy stem which generated this result transmitted reference range : 4.30 - 11.10 10*3/?L. The reference range was not used to interpret this result as normal/abnormal . RBC (test code = See_Comment L [Automated 799-8) message] The sy stem which generated this [...] RDW-SD (test code = 47.0 fL 39.0-49.9 57359-2) RDW-CV (test code = 14.6 % 12.0-15.5 788-0) PLT (test code = See_Comment [Automated 777-3) message] The sy stem which generated this result transmitted reference range : 166 - 358 10*3/ ?L. The reference r cheyanne was not used to interpret this result as normal/abnormal . MPV (test code = 10.1 fL 9.5-12.9 11384-1) NRBC/100 WBC (test See_Comment [Automat ed code = [id number]) message] The system which generated this result transmitted reference range : 0.0 - 10.0 /100 WBCs. The refer ence range was not u sed to interpret th is result as normal/abnormal . NRBC x10^3 (test code <0.01 See_Comment [Auto mated = [id number]) message] The s ystem which generated this result transmitted reference range : 10*3/?L. The reference range was not used to interpret this result as normal/abnormal . GRAN MAT (NEUT) % 52.9 % (test code = 770-8) IMM GRAN % (test code 0.60 % = 9024387388) LYMPH % (test code = 35.0 % 736-9) MONO % (test code = 8.3 % 5905-5) EOS % (test code = 2.6 % 713-8) BASO % (test code = 0.6 % 706-2) GRAN MAT x10^3(ANC) 4.32 10*3/uL 1.88-7.09 (test code = 1003751976) IMM GRAN x10^3 (test 0.05 10*3/uL 0.00-0.06 code = 9702178782) LYMPH x10^3 (test code 2.86 10*3/uL 1.32-3.29 = 731-0) MONO x10^3 (test code 0.68 10*3/uL 0.33-0.92 = 742-7) EOS x10^3 (test code = 0.21 10*3/uL 0.03-0.39 711-2) BASO x10^3 (test code 0.05 10*3/uL 0.01-0.07 = 704-7) Lab Interpretation Abnormal (test code = 03777-8) [facility] Whole [id number] 21:20:26 Test Item Value Reference Range Interpretation Comments LACTIC ACID (test code = 2.06 mmol/L 0.50-2.20 2693634920) Lab Interpretation (test code = Normal 50047-0) [facility] CHEST 1 [id number] 21:07:40 No acute cardiopulmonary abnormality. Preliminary Report [...] reviewed this study and agree with theabove report.[facility] 14:27:00 Test Item Value Reference Range Interpretation Comments Case Report (test code Medical Cytology = 104) Report Case: [id number] Authorizing Provider: Amor Muller MD Collected: 11/29/2020 02:08 PM Ordering Location: [facility] Endoscopy Received: 11/30/2020 02:52 PM Services Pathologist: Moises Aguilar MD Specimen: Pancreas, pancreas cyst DIAGNOSIS (test code = o8eksDHyFVHlb6qpUOYxaV 3220) FuZzEwMzNcZnRuYmpcdWMx IHtccnRmMVxlcGljOTIwMF mektWqZQBcnSFfW7Toclvd FRefRW8zJR9ojFyblZVspK WkBVEvPuZex3gfc133mYYt r5oaGFLPttzenTq5gEeyK9 2pe9Q5YiuhN51voILzOTdf bGFpblxmczIwIFBBTkNSRU CNBUTGG6ZlYSyRGIRqFPBN CVDwU9oXF6YLGD1WUZlfcI LlYUZrUY7hVtdmDWYCM7HA ABFOWIFNRtOJFZeSU28WZq NZXHBhclxmMCAgICAtIFRo ZSBtdWNpbiBzdGFpbiBzaG 17qbQ5MBTfIPBaRBAhk4Jy qQVys7UhrEj1aBH4HJYuhu 32HND4SoGbs0K4OED0XWUm YYHwx7bmQYNgjUVxXsMdOz NcZnRuYmpcdWMxXGRlZmYw m2nmg429qJGti0rlEKBrNl S7aEXtZOAprUZcU621HDLo UNeiq8ggg0AbDHTccXIal1 B4FVPSrzyrpPu3vTnvZ22m l8L5AlgxI0flDDAhYRJxO0 EqQK9cNJUwLcl5MLI7DIP4 SIVuTTClL9GxMT3cCTBizN CuTCm5v9mvdWoqMZYbPQL2 m5szSRylnlTvJM2weg6hbO a1j2ieeeRoGRJjIQVswVFF DTOpC2PpbFzbCh0ioBn2dP srVehpBBZ4Emr2ZB4whk82 wki1cUtcXKDjwtrhPoA7VM aaUFLlxhklBEs4RHwoPMVy eOU9NJQhlZCbJ5QyAXCmWX 5zofv2NLV8QCpgIIIiHsI1 NDBcaGVhZGVyeTcyMFxmb2 61RGW4IyGaCN5sM5Qxp1E0 vW0lsXMrTZSllNCvXhMhTM Ytdy4ddFCzGDyji1HvRCQ0 lpW8aXJupLJuUZYiMiB3HN ruVV1zuv38PWGdZCJ3gm7s bGNccGdicmRyaGVhZFxwZ2 DzAVZub118KUVnO5CbPVTr c2S0pxImOqHzGKXuvRI9ic A1YLKbOI7jerqzo4ziMPbc WLwmURIhemR9zrS1OHTftI GfI3YjyU8yLZHbIF4nnixv o1jcKZS7QUqtXGEwWHW7Ni QnYPOep6Vhakk9MfQcq4Fb wNUuGQdzE36bw386EICckx HgC3kbmWAximulrYBvisdt FFbixlY2IJXcIZzxzbmaKB ZvTTdrR9nrLpHxIIZaiJvj GEkjj0BhLGGwQDDsZsNxpQ MxNIKcTcy3OXWeuGFvKNSx VsBaT6kgqdymBuZVKQPcl2 sfV5qmrTQQeCEwU8KjAKfn nyCyCXniNTznGYVtLYN4WY 9aUHUxTOXslw89 COMMENT (test code = c0jirMCdMYLwuJR3EaNxFK 6859) Htv6ncj7SwvSSwzONlYJcd gYUlatBusi65hEG6rV79DO 7qATLfPdQ6VESovzW6Qtq4 DQXxTFFlrICsB159j7atr1 ziodJwxJU7yMwdDVLzVHFg YWluXGZzMjAgQSBmZXcgcm NcF5PbstSiNYGumIGyUUEi aNUsQRugZQlgN2QegJXvOM RiBR6tnWZxENdsmRtibpGs XCdagrnzioFhm0X4sPH8jG 1gFV0aXAIzjRDcCWVjnXqq pu7kzSPcDBEkgjEmfb4vTH BkXBS6vRBtBRK0Z8CnjGKz vMz8cTNznOGhGMPocGpgLd BccGFyfQ== CPT Code(s) (test code b9dcnQYhLSVpvVK1MoOrHL = 3357) Pyu6vxn8KihSJcaDOuDJmb gSKyfzOdrq52fPH5vM01VD 6bMZMfCbZ0RVQtljC8Eak3 BGXoULIgxQTeC504k2fyd9 dcyyFywUL8wWuxXRKcLQOp YWluXGZzMjAgODgxMDgsID g0XzXqIGDtlm5= CLINICAL DATA (test s7fjrZYmVEAelED3NyEeWR code = 3355) Yoh1cnb9GjgPFogPOuZUnw xCKsriObww16iKI6mY82RJ 2hXEVtCsI6XHNgohF9Vsr0 PRGsDPGbrEKxU068t0njl8 fyszZoaES9kDyrQOZdIPWj MJqjIXNmUiRyYs73XYFjWD uxKB92JLIvGJPlLKZyk6rg KRaoe0qqvmDyhWvbRHX7tE XpJC4kTHX4j4EgjGKgvjHa WiyoIPOuuiI6qTGzqZSeZ1 JlYXRpYyBoZWFkXHBhcn0= SPECIMEN SOURCE (test b9cliDHrXVXkmLB4PoWuAC code = 3377) Isj7hih5YkuOKrvTDvENbz vLJmeiInsx92fAE7rO39MC 6pEHYjLmK9UDAdpqY9Wva0 GKEdHXWmpVGoF152y1tcc9 kuesHmtIE2vUevPIPxKRDz WMgcPMKzMmRoRBNLT4NTTS CwW8vIYNreLKOEAWamYp8A XHBhcn0= GROSS DESCRIPTION (test m0dilEXwNHTrqMW1LfPaHW code = 3366) Nno5jnz0EvgSPanFIfIPoo oYCzfoXzee70xIE6eN27WG 1mNEAnTwY9VVXdnaB2Dtj2 BJEzTBIxyPHcX902l3hfb2 ipoqTtoKE3vIawOODvTHWc CEceFENaZaKbWkFpMIz9SA BuDYkziFymA9q1n4HtE9mh luSsRGTwkAC3oBNfDFZxyU BsZTsgcHJlcGFyZWQgNCBj tJApc1NnjcBlDE0nCDWyoV ZtnT0rF5k4b6DfxQ4jqCXv fQ== MICROSCOPIC DESCRIPTION w6nosXMoNBCoxJD0FvGwRL (test code = 3371) Bki2gom1PptOOytFVuBEjc vXLauzEnjp67sOA2rV03WA 9kZPSxKhU8RDNtkgA2Gqm1 DSAiDXLarABwP211o6mur6 hanlKvvSC1oAyxGLMcKAZv POpfRILzVbVaTFWhIg9tqX VkLiBccGFyfQ== SPECIAL STUDIES (test v5ykoLUcZHLlvWF8BqGcNU code = 3376) Ejj2qfj3YpyUYjwPSkFJrc uDKjajOdra18fTW5tY01EB 7mWAVvHxR4WPOesaK1Lia9 NQOpFGYomTSzV525SSUjSF BawVldrsh1cQ04LVVyuF0q xOHtGCm7NVJrexKncEplbX 3yFqEoGqMpJvIIjUOxhD02 PYFmwnA2WZNcy76sk6ZjcV igwaFuBOItXLabV4e2ACDi FGMfQMA2s0Cpq8SmiE9nhR 1dmJeipD4ddUHseAY5vvyu e4Xos8NnB1xfiYGjmLIoii MuXHBhciBNdWNpbiBccGFy AXQxehNhk9lsZ3mdVHOfNN K4HL5ujlBtZyGnKJ7deW70 v7Ekj03sm97qjJ1twBWpln CeU63bgBNafVMso5QzSGTp juIwbVR9OVLfYQbqakzra0 y1eAY7dXEslGGsqVD6jUGu yEEzKMZZyFBlKOFam429ay 4iIKEyzNXzwuVruD7fYDqt fdzofCRnTG5oBFOjYLMjGG PwHW67liVsAC3kxWDdj1ym jvGxgZUfm6YwcNI9NSKjyM EfzenmGr3zRD62GCViWEbe jT9jpDTvatVxKT8uGB3hG2 H8rBOdAMHikgUpa7rmPNdo HT0sXUHkcFfrXchmTRVuNG FytuBhfOT4KSBuxZLuWWJu qAKnRMywuYSkh0xxp7ZhU9 sgcAhssHQ9VUQaC8nvcYHv mKW9PZM8cN8rVYemxnGzHX Ght4XaAZZxYGIlQqR8qT2c UXW2GcWFnMcjYJL5XpO1VM etGYYeML8zYFhzHLgeR0Er aIMmCCLBHCNnr3gvZ1ouEU Rzy8YgsN0tcGX3xQTkIDGd gDB3NDFsUKO3KDxzmLAcMP JzVUDymRHqwGVvWm5wkLUh G3RiD8wevbUhrDVskXT4aE PnLJkdkgFoOYX1OBDghK9w HM6oOWKapXSlRV0ylSZdJG TpWHNzQUOpKOMro2XsDPXm nb22YVNfAtsznQfwYWRmCu 0wCs7xGJHwaeNeDZL6GkIL TR5ymgbstJBdlHaepb5nVQ ymXYPEDZRiLCOvAOO1ILHb lL8tVLR4aYH7RGD8J1agI1 ltBTLlsmPjHB4kXIKfmUSp gcRxEGbiOF1ipZIbKWXvz4 YyspeiHMCrVTR0VYY5IHiu BXZvNWAhVp7iBQTkoH0hO4 BcSWC5acZjp2MxIdMNpXHl jY40bGKstu79ELRpTJBtH2 FyZGVkIGFzIGludmVzdGln HSEhf53lcUKwwpXpy8Ywgi FkTIEnG9deOYCzcYAkiQOb l7EwbE1wnKBljhXkVAF1xZ NzTPAxoY3fNGUfkLfiVIFk hC0pB8GgHKiqXz7oCVQpiv wyAW6eyv81OM1gmcAvJT4n hxUdZA01jqKuGkKwBUe3OG eAMKfESUp0VVXprmMysENe nMGqCYEpqZ4ebXSbDs2ntH BoaWdoIGNvbXBsZXhpdHkg Q5hkbgdpPOwjhTRgt4RyzI 6pqQO9OSF5rY3gXgdtUZX2 Gross assessment was [facility] performed at ([facility], = 2777) Department of Pathology, [address] [place] [address], Technical component was [facility] performed at ([facility], = 2778) Department of Pathology, [address] [place] [phone], Professional component [facility] was performed at ([facility], code = 2779) Department of Pathology, [address] [place] [address], [facility] 14:27[facility]00 Test Item Value Reference Range Interpretation Comments Case Report (test code Medical Cytology = 104) Report Case: [id number] Authorizing Provider: Amor Muller MD Collected: 11/29/2020 02:08 PM Ordering Location: [facility] Endoscopy Received: 11/30/2020 02:52 PM Services Pathologist: Moises Aguilar MD Specimen: Pancreas, pancreas cyst DIAGNOSIS (test code = u2kifJUwOGWez6mlVXRjwD 3220) FuZzEwMzNcZnRuYmpcdWMx IHtccnRmMVxlcGljOTIwMF ajdnChVQAmvZNsJ6Givdko LDtjDD3eFF4uwXnfzBMfmY EkRTPiOoIpm8erh276xOCu f0xbNGTMbcnknDq9aVaaE3 4gk9G9SjsoA74jrJPkULuf bGFpblxmczIwIFBBTkNSRU ZILCZRD8FzDFiOZNEpKWKB ITBaD5aZG3BOOY0YDNgjdF QePACyEY3eRvjtDYUFO6WR AEJTPSPXIiBNGMlKO81TQe NZXHBhclxmMCAgICAtIFRo ZSBtdWNpbiBzdGFpbiBzaG 31ctW6BULxVCLwKNMzm4Ux aEUyh9YttSb3dAS7XISbwb 43LMQ2XiNpa0S0WUM3YUMg FZMng2dzNCNqvKSbBrTtFs NcZnRuYmpcdWMxXGRlZmYw f5vtb530bFEyd2amNTEaLd E7zQLtUWBkoJPaP974SDCh NItyp5mxm8RaMORddSZgp2 S0XJIIktiwfPa9yFflS35z u3N5UosfB6bfLATgKAGvM1 UnRV1yMPDqScp1KBY0EGP4 ORKmTWPeD7JnFR5sSDGclU FnKUs6p0fhvOrfSLWjCBP7 b8jrBDptmdTbSK5ssk1ccL r9l4wlvvVjMGVuNFRkbCOK JTBrG3BiaKwgZx6wnYl8vM diJtosTWZ7Opg8XE5zsw79 yew6dVuzXPLvgoelLiZ3CU keSSXsdjxvKFs5OTesSIQj mAW9BLCgjZDjQ0QjKZTzHN 2iupr0VLV8OUrpUVCcOmD1 NDBcaGVhZGVyeTcyMFxmb2 54QCV5TtFjWU9gX2Kji1R6 uM4fqRHeBJFvvAOzQgKkEO Lejw4gzTDdHCdrd7JtKEW0 shO7vLBmbLFrFXNhMeE5VO ebRJ0duc39MEVaTCH5tr0o bGNccGdicmRyaGVhZFxwZ2 GmDPMfi475TXBfJ1ZtGBUy l8Q7rfSuCcAfHQBtkCD8gl K7XZNxCZ0vjtjpv8zaDZxp JGsoNCFwohI3rkV8MWBieV VtV0LcoA5qZPFjXN7ededc n5tfDAV4OBpqASZuWFK7Za QwZREzl0Wcuzt7VkAnz0Ya yZCcYZyfA27jn797PXLzsc BpZ3ljyBSvuqmiaKGryvxs QMcmetB0GZQbHIrklvtuBE FeHPyrE7zbFoBhNWXqpHrv PSflj8NiRTBgFYUeHdHtdK HuXRVvCfp5BSAtdDPvWXPb ClSmG3nmyprsPzKKIMFne7 mlY5foxNFWxBZhD2NjAAas lmZhNFeoPCyxIXTfJIJ5II 7nZHOeISSbww58 COMMENT (test code = b5cmgOQrWDRhbAU6OjAuHZ 0226) Fho3gwr3EfbXVfwYNqXKib xNQqnuQoiy82aPI4qB72WI 7jUVJfEeI6SJZrwiJ1Rnn8 SCNeDKIhsWRyN052p6jop2 ydfoEbyQS0aUnzIETaFBHj YWluXGZzMjAgQSBmZXcgcm OgB9RgomRoSPVufCRnHOJr dWHtAWbsUMzlE6BtuSPcHR WhQB9zwNIyWSpgcPuifcDp UDdeilxhqyRuu3Z7qIR3tF 3sDY7qUEScnMWjGNOrxSxq rc8cuNVsCDNgzkHsbs3vGQ MhJZX8hQNzYWF4G2WrnUOz lFf9uLVbtKKhTCUioLcyHz BccGFyfQ== CPT Code(s) (test code p6pdqZFaLCQdvOC3DnHqYU = 3357) Ayv3fkc3IatHLzjHAyGUea gATdtbYgub88pPD1xR08QV 1mYHJmXlX2AICebsF7Xap6 KEPaRXFelUTiV686q7dmv9 kkdoTfsAJ4eOzoWHTuVVWz YWluXGZzMjAgODgxMDgsID b0WlTrZZPgnz5= CLINICAL DATA (test t4nwzIBkXFWvpJE6QhSfYG code = 3355) Trv3tlv9IslHKuxTHyGOxa nCWqygZccw39vBN4qR45LR 6aDQFsXjC7ADWtgnU4Bje8 IFDfOSEncMVwP317g0peo2 xcgnZmrXG3xPhcLBOdUXOr NXldPKGwQjHzAb45TYIbUL nyFE59MPIjSLLfNIFpz9qu GVzys8ogslRxxPedVSB2iW KyDA1qETD0g3TvsSIueqCu WpnfWIZuwaZ5nVMbaTKoB6 JlYXRpYyBoZWFkXHBhcn0= SPECIMEN SOURCE (test y1pknCIlGDQgoDV0AuIbSL code = 3377) Lzc3boo3TfpREilAXtGSpx qFQyroMzoe28dVT5yD22RM 8aBDAmQbH8LSIjliH9Ygn0 KRJlBSYswCKtV544d3tnw6 urwcUttAF5zTlmTUKiIBVt IHwzQZVoRtPcSBOCS7CDOI GhU6pMXUzyEJKYNHxcNn9C XHBhcn0= GROSS DESCRIPTION (test t6imoMAvJIZbmPZ2KaYbWI code = 3366) Nlp4gad4RdyVNnoNUjJOce lHCjawLdrj89jDI9iL98OH 8jLKBgVhH7JJZoczS2Gva8 MEEoKHQrdNYxO839m9rtm1 xvbhBpzOH7iKrxKRUnZWQl BVgrJQDzZgAdMiHaUKw4WU CfYFqnnFqeY4t4a2KqV2mh suTrYZAvnQR6aGQbINUrtK BsZTsgcHJlcGFyZWQgNCBj tPEkc8DrhiOdHZ9nYQTduF HwrJ6fY4g3m3ReeB5alUZi fQ== MICROSCOPIC DESCRIPTION m0gyxUSsKEJwqIB5ThCdFI (test code = 3371) Uvt3jch3JjiNIyjZKaKNls vKSylhUiei52fNV6vR48LU 7aFSXlJyT2VPPukyW7Wwa2 EYQbNKRxySPgX337e1bji8 kmohJxfBQ9eFvqRDSmVEIx WRaxMJVvSeIiYUEfDg1mmD VkLiBccGFyfQ== SPECIAL STUDIES (test p3lpdMSjDLMczJK3AjBrBH code = 3376) Que8sgs9JtcWYbzODnLZfg aNBcxpGhye19mOD3pY92DT 8qMXXeFjY1BULpvkU0Itp5 NWUqUBOphQYlP623IBIeRU LzsTabhhh0kV76YNRkrJ8u yNFtKCy2LXAcydBotIgafX 7oXlXfBsAhByJZqJGjbH11 XVWrhcJ2VVVno22kt7XveO qoxbMeGAFkCNzcU8n6GTUd DUNqRHG9u5Ofl4DzhP5ooO 0sdCnhiL1mgQZitCK5jokl d2Ohr7QrX2cnkBCxwPNizx MuXHBhciBNdWNpbiBccGFy HPWvmjVfv4skL5ahOSPtQO E0SR9iopOsTwWbTF5efT57 g8Iec63li28avN3niHIkuc EhU42fcTPmgOOke1PmLAGi kmYnvOL0NRWkPPykjpwbb4 j4kEI1oGVclISwmCL3vHPo sAEqOBKHjZLsEMXkl501kz 8zPSEckPDehnRtqW5cWYwo rfrpmHPiOX7zJJQtXLNsNU GaBZ05xuGjSO9pbETzn1du dvGnvDPqz3ZnpDC4UFDxqP BvtdquCd7kSB82BCLnAXxi mW7oxCBsudPkZN4xHN2yA8 T7fFWtCDWemcWhw8dtETgr WD1qHOAuzThjZpxuVNXeKM SjupLahYQ2VPNjdMTlTNSd uTWcQZcbnZTvp5pbw7BpL0 mwoSuagDV7XBBoV8thtMKl pRO8XWK3aH5vLQsuwpPkIV Usk2LnEZMjFUXwFpW9hA1b NZE9DiDHrPacSHG5MiC5DR xzIPJoOG2wGDnaOTcyV5Cb eONqVQXHNQFub8hgW5fcZJ Bjb7OutX5ecIN3qHPsVXDi sRZ2WZBmOCK6HJadhRCnUY GlIFMvsVIvjLTiLi8srUJc L6IhJ3xjdxLupMWgzBY4pD YrZWxnehEuNRW7KNSnaB3d UK9zBDXowZSnZJ0jkLJuNY MtWOAkIQPrXEIgv1YlOTJj ur41PYCnHdnloBvaIJTlMk 1mGt6wDCZsggIaYMR6AbHP YH5jcvtuxLTjqObflo8uMB mxKSVHXPSvOBKkJSY0XSTg cT6yMHI2cYR4CSQ0I6ofS7 fjQWUpwrWfEA1iCVNpzZOl suXwGEmfTL5saHIbJGEqu9 JfrxjxJOCfIND8FRU9CAnq EDApMXStKm1yKQOwlZ0yG2 SlMSV9ujSdz4DnRjHWyZUx aN00iREgfn91UQYgEHWoF0 FyZGVkIGFzIGludmVzdGln GHNpg14bjJMmfuLri4Cimy AqCIGfQ3heYUYapWDavRXs w9RxxZ3itUEiceUfUGZ3tK KxMMAfnS0tHKOfyBmqXZIs qW0lB2SpLCzmHl8pDEOdsj kgYS4btd06US2fufEeFC3p odJqWX17laCvOaEoJOy5YY xTBWiTIKn3FEKprkYruYEp vLDgGJZunO1qpLQqXn1yfK BoaWdoIGNvbXBsZXhpdHkg V0tsdjuaUTtvfBVxs3ZhfL 5csNL1OWA1aX0oQhicMNV0 Gross assessment was [facility] performed at ([facility], = 2777) Department of Pathology, [address] [place] [address], Technical component was [facility] performed at ([facility], = 2778) Department of Pathology, [address] [place] [address], Professional component [facility] was performed at ([facility], code = 2779) Department of Pathology, [address] [place] [address], [facility] 14:27:00Medical Cytology Report Case: [id number] Aut horizing Provider: Amor Muller MD Collected: 11/29/2020 02:08 PM Ordering Location: [facility] Endoscopy Received: 11/30/2020 02:52 PM Services Pathologist: Moises Aguilar MD Specimen: Pancreas, pancreas cyst PANCREAS CYST, HEAD,FNA (CYTOSPINS): - NEGATIVE FOR MALIGNANCY - The mucin stain shows weak and focal positivity Signing Pathologist Direct Phone Line: [phone] signed by Moises Aguilar MD on 12/01/2020 at 2:27 PMA few reactive ductal epithelial cells are noted within a larger population of completely normal and non- reactive ductal epithelial cells. 98200, 815753.5 cm x 1.8 cm anechoic lesion suggestive [...] evaluated Immunohistochemistry technical testing was performed at [facility], Pathology Laboratory where it was developed and [...] qualified to perform high complexity clinical laboratory testing.[facility], Department of Pathology, [address] [place] [id number], [facility], [address] [place] [id number], [facility], [facility], [address] [place] [id number], [id number] 16:01:00 Test Item Value Reference Range Interpretation Comments Cytology (test code = See Separate Report 2629) [facility] [id number] 16:01:00 Test Item Value Reference Range Interpretation Comments Cytology (test code = See Separate Report 2629) [facility] [id number] 16:01:00 Test Item Value Reference Range Interpretation Comments CYTOLOGY RESULT POINTER See Separate Report (BEAKER) (test code = 2629) POC-Glucose [id number] 11:57:00 Test Item Value Reference Range Interpretation Comments POC-Glucose Meter (test 73 mg/dL 70-110 : TE STED AT [facility] code = 1538) 20 [facility], 770 30: Collections Manager/Techni robbie ID = [id number] for DHRUV, MARGARE T Lab Interpretation (test Normal code = 42961-4) [facility] [id number] 11:57:00 Test Item Value Reference Range Interpretation Comments POC-Glucose Meter (test 73 mg/dL 70-110 : TE STED AT [facility] code = 1538) 6720 [facility], 770 30: Collections Manager/Techni robbie ID = [id number] for DHRUV, MARGARE T Lab Interpretation (test Normal code = 15790-7) [facility] HospitalPOCT[facility]GLUCOSE [id number] 11:57:00 Test Item Value Reference Range Interpretation Comments POC-GLUCOSE METER 73 mg/dL 70-110 : TESTED A T [facility] 6720 (BEAKER) (test code = [facility], 1538) [id number]: Collections Manager/Techni robbie ID = [id number] for RAZS ONHEIDIT
[2022-03-20] MEDS ORDERED: NA CHLORIDE 0.9% 1,000 ML ONE (14:38)
[2022-03-20] MEDS ORDERED: FENTANYL CITR 100 MCG/2 ML ONE (14:38)
[2022-03-20] MEDS ORDERED: NA CHLORIDE 0.9% 500 ML ONE (14:38)
[2022-03-20] MEDS ORDERED: ONDANSETRON 4 MG/2 ML VIAL ONE (14:38)
[2022-03-20 15:10] LABS: Absolute Lymphocytes (CBC) 1.3 K/uL (0.7-4.9); Hematocrit 30.7 % (36.0-45.0); Lymphocytes % 17.7 % (15.3-44.8); RBC Red Blood Cell Count 3.37 M/uL (3.86-4.86)
--- NOTE | 2022-03-20 15:12 | RAD REPORT ---
EXAM DESCRIPTION: CT - Head C Spine Cap Stephanie Perkins - 03/20/2022 2:45 pm CLINICAL HISTORY: Head and neck injury with chest and abdominal pain status post fall TECHNIQUE: Computed axial tomography of head, neck, chest, abdomen and pelvis obtained. IV and oral contrast not requested. Coronal and sagittal reconstruction performed. All CT scans are performed using dose optimization technique as appropriate and may include automated exposure control or mA/KV adjustment according to patient size. COMPARISON: 2020 and 2021 FINDINGS: An intracranial bleed is not seen. The ventricles are normal in caliber. An extra-axial fluid collection is not noted. . Fluid within the sinuses/mastoids is not seen. Mild to moderate anterior subluxation C4 on C5 mildly progressed 2020. Mild chronic compression defor mity T1 vertebral body unchanged. No acute fracture or dislocation seen The evaluation of mediastinum, bozena, vessels, solid organs and bowel are limited secondary to the lac k of contrast administration. A mediastinal hematoma is not noted. A pleural effusion is not seen. A lung contusion is not present. The liver,spleen, pancreas, adrenals,kidneys and bladder do not demonstrate a traumatic injury Mild chronic anterior subluxation of L5 on S1 with degenerative change. Moderate umbilical hernia containing fat. Pancreatic cystic mass is unchanged from the recent CAT sca n. IMPRESSION: No acute intracranial abnormality is seen. A cervical fracture is not visualized. If the patient continues have symptoms to suggest intracrania l/spinal cord pathology MRI be recommended No traumatic abnormality involving the chest/abdomen/pelvis.
[2022-03-20 15:38] LABS: Urine Blood Negative (Negative); Urine Glucose Negative (Negative); Urine Protein Negative (Negative); Urine pH 8.5 (5.0-7.0)
[2022-03-20 15:38] LABS: Albumin 2.8 g/dL (3.4-5.0); Bilirubin Direct 0.1 mg/dL (0-0.2); Bilirubin Total 0.5 mg/dL (0.2-1.0); Potassium 3.9 mmol/L (3.5-5.1); Protein, Total 6.2 g/dL (6.4-8.2)
[2022-03-20] MEDS ORDERED: CEFTRIAXONE 1000 MG/VIAL ONE (15:58)
[2022-03-20] MEDS ORDERED: NA CHLORIDE 0.9% 50 ML ONE (15:58)
--- NOTE | 2022-03-20 16:02 | RAD REPORT ---
EXAM DESCRIPTION: RAD - Shoulder Left 2 View - 03/20/2022 3:43 pm CLINICAL HISTORY: Left shoulder pain FINDINGS: No fracture or dislocation is seen. Osteophytes extend inferiorly from the acromion which may result in impingement syndrome
--- NOTE | 2022-03-20 16:02 | RAD REPORT ---
EXAM DESCRIPTION: Kylie Single View03/20/2022 3:43 pm CLINICAL HISTORY: Chest pain COMPARISON: February 2022 FINDINGS: The lungs appear clear of acute infiltrate. The heart is normal size IMPRESSION: No acute abnormalities displayed
--- NOTE | 2022-03-20 16:03 | RAD REPORT ---
EXAM DESCRIPTION: RAD - Pelvis - 03/20/2022 3:43 pm CLINICAL HISTORY: Pelvic pain FINDINGS: No fracture or dislocation is seen. 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
--- NOTE | 2022-03-20 16:04 | RAD REPORT ---
EXAM DESCRIPTION: RAD - Hip Right 2 View - 03/20/2022 3:43 pm CLINICAL HISTORY: Right hip pain FINDINGS: No fracture or dislocation is seen. 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
--- NOTE | 2022-03-20 16:33 | ER ---
Nurse's Notes [facility] Name: Caridad Chadwick Age: 86 yrs Sex: Female : 1935 Arrival Date: 03/20/2022 Time: 14:08 Bed 18 Private MD: Diagnosis: Fall on same level, unspecified;Contusion of left shoulder;Pain in left shoulder;UTI/ Urinary tract infection, site not specified Presentation: 03/20 13:50 Chief complaint: Patient states: Patient c/o pain to her left shoulder that radiates up jg9 to her left ear and she is c/o pain to her back/tail bone, patient reports she was in the bathroom over the sink when she went to sit down on her walker and did not go back far enough causing the walker to slide from underneath her causing the patient to slip on her buttocks and hit the tile floor, neighbors came to assist patient up and she reports that she went to bed. This morning she reported that she thought she was ok but then she started having significant pain all over and the Tylenol she has taken was not helping. Care prior to arrival: None. Mechanism of Injury: Fall out of chair. Trauma event details: Injury occurred: at home. 13:50 Acuity: ZOIE 3 jg9 13:50 Method Of Arrival: EMS: [facility] jg9 14:16 Coronavirus screen: Vaccine status: Patient reports receiving the 2nd dose of the covid jg9 vaccine. Ebola Screen: Patient negative for fever greater than or equal to 101.5 degrees Fahrenheit, and additional compatible Ebola Virus Disease symptoms Patient denies exposure to infectious person. Patient denies travel to an Ebola-affected area in the 21 days before illness onset. Initial Sepsis Screen: Does the patient meet any 2 criteria? No. Patient's initial sepsis screen is negative. Does the patient have a suspected source of infection? No. Patient's initial sepsis screen is negative. Risk Assessment: Do you want to hurt yourself or someone else? Patient reports no desire to harm self or others. Onset of symptoms was March 19, 2022. Trauma Activation: Not Applicable Physician: ED Physician; Name: ; Notified At: ; Arrived At: Physician: General Surgeon; Name: ; Notified At: ; Arrived At: Physician: Radiology; Name: ; Notified At: ; Arrived At: Physician: Respiratory; Name: ; Notified At: ; Arrived At: Physician: Lab; Name: ; Notified At: ; Arrived At: Historical: - Allergies: 14:16 codeine sulfate; jg9 - PMHx: 14:16 C DIFF; Cyst on pancreas; Diabetes - NIDDM; Diverticulitis; GERD; Hypertension; jg9 Hypothyroidism; Rheumatoid Arthritis; - Immunization history: Last tetanus immunization: unknown. - Family history:: not pertinent. - Social history:: Smoking status: unknown. Screenin:14 Abuse screen: Denies threats or abuse. Denies injuries from another. Nutritional jg9 screening: No deficits noted. Tuberculosis screening: No symptoms or risk factors identified. Fall Risk Fall in past 12 months (25 points). Primary Survey: 13:50 NO uncontrolled hemorrhage observed. A: The client is awake and alert. The airway is jg9 patent. The client is alert. Airway: patent, Patient intubated prior to arrival Oral cavity: clear, Trachea midline. Breathing/Chest: Spontaneous respiratory effort, equal unlabored respirations, breath sounds clear bilaterally, regular pattern, symmetrical chest rise and fall. Circulation: No external hemorrhage present. Regular and strong central pulse, skin warm/dry/normal color. Disability Client is alert. Exposure/Environment: A warming method has been applied: A warm blanket has been provided to the patient. 14:14 Reassessment Alertness and Airway: Awake and alert. The airway is patent. Breathing: jg9 Spontaneous respiratory effort, equal unlabored respirations, breath sounds clear bilaterally, regular pattern with symmetrical chest rise and fall. Circulation: No external hemorrhage noted. Regular and strong central pulse, skin warm/dry/normal color. Disability: Pupils Pupils are equal, round, reactive to light and accomodation. Alert. Assessment: 13:50 General: Appears distressed, uncomfortable, Behavior is crying. Pain: Complains of pain jg9 in left ear, back, buttocks and left arm-left shoulder, left ear, lower back and tail bone Pain currently is 10 out of 10 on a pain scale. Neuro: No deficits noted. EENT: No deficits noted. Cardiovascular: No deficits noted. Respiratory: No deficits noted. GI: No deficits noted. : No deficits noted. Derm: No deficits noted. Musculoskeletal: Reports generalized weakness. 15:40 Reassessment: Patient appears in no apparent distress at this time. No changes from jd3 previously documented assessment. Patient and/or family updated on plan of care and expected duration. Pain level reassessed. 16:56 Reassessment: Patient appears in no apparent distress at this time. Patient and/or jd3 family updated on plan of care and expected duration. Pain level reassessed. Patient is alert, oriented x 3, equal unlabored respirations, skin warm/dry/pink. 17:20 Reassessment: Patient appears in no apparent distress at this time. Patient and/or jd3 family updated on plan of care and expected duration. Pain level reassessed. Patient is alert, oriented x 3, equal unlabored respirations, skin warm/dry/pink. pt reporting continued pain/soreness. provider notified. no new orders. verbal reassurance given to pt. pt reported understanding of discharge instructions. assisted pt to vehicle with family via wheelchair Patient states feeling better. Vital Signs: 13:50 BP 145 / 88; Pulse 75; Resp 17 S; Temp 98.0(A); Pulse Ox 95% on R/A; Weight 65.77 kg jg9 (R); Height 5 ft. 1 in. (154.94 cm); Pain 10/10; 15:40 BP 135 / 92; Pulse 76; Resp 16 S; Pulse Ox 99% on R/A; jd3 16:56 BP 140 / 89; Pulse 79; Resp 20 S; Pulse Ox 99% on R/A; jd3 17:21 BP 161 / 75; Pulse 80; Resp 20 S; Pulse Ox 99% on R/A; jd3 13:50 Body Mass Index 27.40 (65.77 kg, 154.94 cm) j9 [place] Coma Score: 13:50 Eye Response: spontaneous(4). Verbal Response: oriented(5). Motor Response: obeys jg9 commands(6). Total: 15. 15:40 Eye Response: spontaneous(4). Verbal Response: oriented(5). Motor Response: obeys jd3 commands(6). Total: 15. Trauma Score (Adult): 13:50 Eye Response: spontaneous(1); Verbal Response: oriented(1); Motor Response: obeys jg9 commands(2); Systolic BP: > 89 mm Hg(4); Respiratory Rate: 10 to 29 per min(4); Eliel Score: 15; Trauma Score: 12 15:40 Eye Response: spontaneous(1); Verbal Response: oriented(1); Motor Response: obeys jd3 commands(2); Systolic BP: > 89 mm Hg(4); Respiratory Rate: 10 to 29 per min(4); [place] Score: 15; Trauma Score: 12 ED Course: 14:08 Patient arrived in ED. jg9 14:09 Falguni Mckeon, RN is Primary Nurse. jg9 14:12 Triage completed. jg9 14:14 [place] MD is Attending Physician. nuris 14:16 Arm band placed on right wrist. jg9 14:28 Shakeel Pham, SHARLENE is Primary Nurse. jd3 14:47 CT Traumagram (Head C Spine CAP wo con) In Process Unspecified. EDMS 15:00 Inserted saline lock: 20 gauge in right antecubital area, using aseptic technique. jd3 Blood collected. 15:41 Patient has correct armband on for positive identification. Bed in low position. Call jd3 light in reach. Side rails up X2. Adult w/ patient. Client placed on continuous cardiac and pulse oximetry monitoring. NIBP monitoring applied. chiropractic physician on. Pulse ox on. NIBP on. 15:45 XRAY Chest (1 view) In Process Unspecified. EDMS 15:45 Shoulder Left (2 View) XRAY In Process Unspecified. EDMS 15:45 Pelvis XRAY In Process Unspecified. EDMS 15:45 Hip Right 2 View XRAY In Process Unspecified. EDMS 16:13 Inserted saline lock: 22 gauge in right upper arm, using aseptic technique. jd3 16:28 Henry Abernathy MD is Referral Physician. nuris 16:56 No provider procedures requiring assistance completed. jd3 17:22 IV discontinued, intact, bleeding controlled, No redness/swelling at site. Pressure jd3 dressing applied. Administered Medications: 15:06 Drug: NS 0.9% 500 ml Route: IV; Rate: bolus; Site: right antecubital; jd3 15:45 Follow up: Response: No adverse reaction; IV Status: Completed infusion; IV Intake: jd3 500ml 15:06 Drug: NS 0.9% 1000 ml Route: IV; Rate: 125 ml/hr; Site: right antecubital; jd3 16:57 Follow up: Response: No adverse reaction; IV Status: Order to discontinue infusion; jd3 order to discontinue due to discharge 15:07 Drug: fentaNYL (PF) 25 mcg Route: IVP; Site: right antecubital; jd3 15:45 Follow up: Response: No adverse reaction; RASS: Alert and Calm (0) jd3 15:07 Drug: Zofran (Ondansetron) 4 mg Route: IVP; Site: right antecubital; jd3 15:45 Follow up: Response: No adverse reaction jd3 15:57 Drug: Rocephin (cefTRIAXone) 1 grams Route: IV; Rate: per protocol; Site: right [facility] antecubital; 16:57 Follow up: Response: No adverse reaction; IV Status: Completed infusion jd3 16:38 Drug: fentaNYL Patch (25 mcg/hr) 1 patches Route: Transdermal; Site: affected area; jd3 16:57 Follow up: Response: No adverse reaction; Medication administered at discharge. jd3 16:39 Drug: Tylenol 650 mg Route: PO; jd3 16:57 Follow up: Response: No adverse reaction jd3 Medication: 15:41 VIS not applicable for this client. jd3 Intake: 15:45 IV: 500ml; Total: 500ml. jd3 Outcome: 16:32 Discharge ordered by MD. lawler 17:22 Discharged to home via wheelchair, with family. jd3 17:22 Condition: stable 17:22 Discharge instructions given to patient, family, Instructed on discharge instructions, follow up and referral plans. medication usage, Demonstrated understanding of instructions, follow-up care, medications, Prescriptions given X 1. 17:22 Patient left the ED. jd3 Signatures: Dispatcher [employer] [place] MD MD cha Davies, Jonathon RN RN jd3 Falguni Mckeon RN RN jg9
--- NOTE | 2022-03-20 16:33 | EDPHYS ---
Physician Documentation [facility] Name: Caridad Chadwick Age: 86 yrs Sex: Female : 1935 Arrival Date: 03/20/2022 Time: 14:08 Bed 18 Private MD: DIANA Physician [place] HPI: 03/20 15:23 This 86 yrs old Female presents to ER via EMS with complaints of Arm Pain, nuris Ear Injury, General Weakness - Patient slipped and fell lastnight, today she is having pain 10/10. 15:23 The patient or guardian complains of decreased range of motion, pain, that is acute, nuris tenderness. The complaints affect the anterior aspect of left shoulder, left bicep, posterior aspect of left shoulder and left tricep. Context: The problem was sustained at home. Onset: The symptoms/episode began/occurred last night. Treatment prior to arrival includes: no previous treatment. Modifying factors: The symptoms are alleviated by nothing. remaining still, the symptoms are aggravated by movement. Associated signs and symptoms: The patient has no apparent associated signs or symptoms. Severity of symptoms: At their worst the symptoms were moderate, in the emergency department the symptoms are unchanged. The patient has not experienced similar symptoms in the past. Historical: - Allergies: 14:16 codeine sulfate; jg9 - PMHx: 14:16 C DIFF; Cyst on pancreas; Diabetes - NIDDM; Diverticulitis; GERD; Hypertension; jg9 Hypothyroidism; Rheumatoid Arthritis; - Immunization history: Last tetanus immunization: unknown. - Family history:: not pertinent. - Social history:: Smoking status: unknown. ROS: 15:23 Constitutional: Negative for fever, chills, and weight loss, Eyes: Negative for injury, nuris pain, redness, and discharge, ENT: Negative for injury, pain, and discharge, Neck: Negative for injury, pain, and swelling, Cardiovascular: Negative for chest pain, palpitations, and edema, Respiratory: Negative for shortness of breath, cough, wheezing, and pleuritic chest pain, Abdomen/GI: Negative for abdominal pain, nausea, vomiting, diarrhea, and constipation, Back: Negative for injury and pain, : Negative for injury, bleeding, discharge, and swelling, Skin: Negative for injury, rash, and discoloration, Neuro: Negative for headache, weakness, numbness, tingling, and seizure, Psych: Negative for depression, anxiety, suicide ideation, homicidal ideation, and hallucinations, Allergy/Immunology: Negative for hives, rash, and allergies, Endocrine: Negative for neck swelling, polydipsia, polyuria, polyphagia, and marked weight changes, Hematologic/Lymphatic: Negative for swollen nodes, abnormal bleeding, and unusual bruising. 15:23 MS/extremity: Positive for decreased range of motion, pain, tenderness, of the anterior aspect of left shoulder, left bicep, posterior aspect of left shoulder and left tricep. Exam: 15:23 Constitutional: This is a well developed, well nourished patient who is awake, alert, nuris and in no acute distress. Head/Face: Normocephalic, atraumatic. Eyes: Pupils equal round and reactive to light, extra-ocular motions intact. Lids and lashes normal. Conjunctiva and sclera are non-icteric and not injected. Cornea within normal limits. Periorbital areas with no swelling, redness, or edema. ENT: Nares patent. No nasal discharge, no septal abnormalities noted. Tympanic membranes are normal and external auditory canals are clear. Oropharynx with no redness, swelling, or masses, exudates, or evidence of obstruction, uvula midline. Mucous membranes moist. Neck: Trachea midline, no thyromegaly or masses palpated, and no cervical lymphadenopathy. Supple, full range of motion without nuchal rigidity, or vertebral point tenderness. No Meningismus. Chest/axilla: Normal chest wall appearance and motion. Nontender with no deformity. No lesions are appreciated. Cardiovascular: Regular rate and rhythm with a normal S1 and S2. No gallops, murmurs, or rubs. Normal PMI, no JVD. No pulse deficits. Respiratory: Lungs have equal breath sounds bilaterally, clear to auscultation and percussion. No rales, rhonchi or wheezes noted. No increased work of breathing, no retractions or nasal flaring. Abdomen/GI: Soft, non-tender, with normal bowel sounds. No distension or tympany. No guarding or rebound. No evidence of tenderness throughout. Female : Normal external genitalia. Skin: Warm, dry with normal turgor. Normal color with no rashes, no lesions, and no evidence of cellulitis. MS/ Extremity: Pulses equal, no cyanosis. Neurovascular intact. Full, normal range of motion. Neuro: Awake and alert, GCS 15, oriented to person, place, time, and situation. Cranial nerves II-XII grossly intact. Motor strength 5/5 in all extremities. Sensory grossly intact. Cerebellar exam normal. Normal gait. Psych: Awake, alert, with orientation to person, place and time. Behavior, mood, and affect are within normal limits. 15:23 ECG was reviewed by the Attending Physician. 15:23 Back: pain, that is mild, ROM is painful, normal spinal alignment noted, CVA tenderness, is absent, vertebral tenderness, is not appreciated, muscle spasm, is appreciated in the left low back, left mid back, right mid back and right low back. Vital Signs: 13:50 BP 145 / 88; Pulse 75; Resp 17 S; Temp 98.0(A); Pulse Ox 95% on R/A; Weight 65.77 kg jg9 (R); Height 5 ft. 1 in. (154.94 cm); Pain 10/10; 15:40 BP 135 / 92; Pulse 76; Resp 16 S; Pulse Ox 99% on R/A; jd3 16:56 BP 140 / 89; Pulse 79; Resp 20 S; Pulse Ox 99% on R/A; jd3 17:21 BP 161 / 75; Pulse 80; Resp 20 S; Pulse Ox 99% on R/A; jd3 13:50 Body Mass Index 27.40 (65.77 kg, 154.94 cm) jg9 [place] Coma Score: 13:50 Eye Response: spontaneous(4). Verbal Response: oriented(5). Motor Response: obeys jg9 commands(6). Total: 15. 15:40 Eye Response: spontaneous(4). Verbal Response: oriented(5). Motor Response: obeys jd3 commands(6). Total: 15. Trauma Score (Adult): 13:50 Eye Response: spontaneous(1); Verbal Response: oriented(1); Motor Response: obeys jg9 commands(2); Systolic BP: > 89 mm Hg(4); Respiratory Rate: 10 to 29 per min(4); [place] Score: 15; Trauma Score: 12 15:40 Eye Response: spontaneous(1); Verbal Response: oriented(1); Motor Response: obeys jd3 commands(2); Systolic BP: > 89 mm Hg(4); Respiratory Rate: 10 to 29 per min(4); [place] Score: 15; Trauma Score: 12 MDM: 14:14 Patient medically screened. [facility] 15:29 Differential diagnosis: dislocation, closed fracture, contusion, tendonitis. Data nuris reviewed: vital signs, nurses notes, EMS record, lab test result(s), EKG, radiologic studies, CT scan, plain films. 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 Test interpretation: by ED physician or midlevel provider: ECG, plain radiologic studies. Counseling: I had a detailed discussion with the patient and/or guardian regarding: the historical points, exam findings, and any diagnostic results supporting the discharge/admit diagnosis, lab results, radiology results. 03/20 14:24 Order name: Basic Metabolic Panel; Complete Time: 15:42 [facility] 03/20 14:24 Order name: CBC with Diff; Complete Time: 15:42 [facility] 03/20 14:24 Order name: LFT's; Complete Time: 15:42 [facility] 03/20 14:24 Order name: Magnesium; Complete Time: 15:42 [facility] 03/20 14:24 Order name: NT PRO-BNP; Complete Time: 15:42 [facility] 03/20 14:24 Order name: PT-INR; Complete Time: 15:42 [facility] 03/20 14:24 Order name: Troponin HS; Complete Time: 15:42 [facility] 03/20 14:24 Order name: XRAY Chest (1 view); Complete Time: 16:05 [facility] 03/20 14:24 Order name: CT Traumagram (Head C Spine CAP wo con); Complete Time: 15:42 [facility] 03/20 14:24 Order name: SARS-COV-2 RT PCR (Document "Date of Onset" if Symptomatic) [facility] 03/20 14:25 Order name: Shoulder Left (2 View) XRAY; Complete Time: 16:05 [facility] 03/20 14:56 Order name: Pelvis XRAY; Complete Time: 16:05 [facility] 03/20 15:39 Order name: Urine Dipstick-Ancillary; Complete Time: 15:42 EDMI 03/20 15:43 Order name: Urine Culture [facility] 03/20 14:24 Order name: EKG; Complete Time: 14:25 [facility] 03/20 14:24 Order name: Cardiac monitoring; Complete Time: 14:28 [facility] 03/20 14:24 Order name: EKG - Nurse/Tech; Complete Time: 14:28 [facility] 03/20 14:24 Order name: IV Saline Lock; Complete Time: 16:14 [facility] 03/20 14:24 Order name: Labs collected and sent; Complete Time: 16:14 [facility] 03/20 14:24 Order name: O2 Per Protocol; Complete Time: 14:29 [facility] 03/20 14:24 Order name: O2 Sat Monitoring; Complete Time: 14:29 [facility] 03/20 14:24 Order name: Urine Dipstick-Ancillary (obtain specimen); Complete Time: 15:43 [facility] 03/20 14:56 Order name: Hip Right 2 View XRAY; Complete Time: 16:05 [facility] EC:23 Rate is 77 beats/min. Rhythm is regular. QRS [place] is Normal. [place] interval is normal. QRS nuris interval is normal. QT interval is normal. No Q waves. T waves are Normal. No ST changes noted. Clinical impression: NSR w/ Non-specific ST/T Changes and No evidence of ischemia. Interpreted by me. Reviewed by me. Administered Medications: 15:06 Drug: NS 0.9% 500 ml Route: IV; Rate: bolus; Site: right antecubital; jd3 15:45 Follow up: Response: No adverse reaction; IV Status: Completed infusion; IV Intake: jd3 500ml 15:06 Drug: NS 0.9% 1000 ml Route: IV; Rate: 125 ml/hr; Site: right antecubital; jd3 16:57 Follow up: Response: No adverse reaction; IV Status: Order to discontinue infusion; jd3 order to discontinue due to discharge 15:07 Drug: fentaNYL (PF) 25 mcg Route: IVP; Site: right antecubital; jd3 15:45 Follow up: Response: No adverse reaction; RASS: Alert and Calm (0) j 15:07 Drug: Zofran (Ondansetron) 4 mg Route: IVP; Site: right antecubital; jd3 15:45 Follow up: Response: No adverse reaction jd3 15:57 Drug: Rocephin (cefTRIAXone) 1 grams Route: IV; Rate: per protocol; Site: right jd3 antecubital; 16:57 Follow up: Response: No adverse reaction; IV Status: Completed infusion jd3 16:38 Drug: fentaNYL Patch (25 mcg/hr) 1 patches Route: Transdermal; Site: affected area; jd3 16:57 Follow up: Response: No adverse reaction; Medication administered at discharge. jd3 16:39 Drug: Tylenol 650 mg Route: PO; jd3 16:57 Follow up: Response: No adverse reaction jd3 Disposition Summary: 03/20/22 16:32 Discharge Ordered Location: Home nuris Problem: new nuris Symptoms: have improved nuris Condition: Stable nuris Diagnosis - Fall on same level, unspecified nuris - Contusion of left shoulder nuris - Pain in left shoulder nuris - UTI/ Urinary tract infection, site not specified nuris Followup: nuris - With: Private Physician - When: 2 - 3 days - Reason: Recheck today's complaints, Continuance of care, Re-evaluation by your physician Followup: nuris - With: Henry Abernathy MD - When: 2 - 3 days - Reason: Recheck today's complaints, Re-evaluation by your physician Discharge Instructions: - Discharge Summary Sheet nuris - Joint Pain nuris - Arthritis nuris - Fall Prevention in the Home, Adult nuris - Shoulder Pain nuris - Urinary Tract Infection, Adult nuris - Shoulder Pain, [id number] nuris - Urinary Tract Infection, Adult, [id number] nuris - Fall Prevention in the Home, Adult, [id number] nuris Forms: - Medication Reconciliation Form nuris - Thank You Letter nuris - Antibiotic Education nuris - Prescription Opioid Use [facility] Prescriptions: - Bactrim DS 800-160 mg Oral Tablet - take 1 tablet by ORAL route every 12 hours for 5 days; 10 tablet; Refills: 0, nuris Product Selection Permitted Signatures: Dispatcher [employer] [place] MD MD cha Davies, Jonathon RN RN jd3 Falguni Mckeon RN RN jg9
[2022-03-20] MEDS ORDERED: ACETAMINOPHEN 325 MG TABLET ONE (16:37)
[2022-03-20] MEDS ORDERED: FENTANYL 25 MCG/PATCH TD ONE (16:38)
[2022-03-20 18:47] VITALS: O2SAT 99
[2022-03-20 18:51] VITALS: BP 161/75
--- NOTE | 2022-03-22 14:32 | EKG ---
Test Date: 2022-03-20 Test Time: 14:02:22 Tip Scourer: MEASUREMENT RESULTS: Intervals: Rate: 77 [place]: 168 QRSD: 86 QT: 384 QTc: 434 [place]: P: 30 [place]: 168 QRS: -40 T: -15 INTERPRETIVE STATEMENTS: Normal sinus rhythm Left axis deviation Anterior infarct, age undetermined Abnormal ECG Compared to ECG 03/13/2022 08:34:16 Atrial premature complex(es) no longer present Myocardial infarct finding still present Electronically Signed On 03-22-22 14:32:02 CDT by Rigo Gomez
== END 2022-03-20 17:22 | disposition home or self-care (01) ==
LOC: ER 14:02
DX: S40.012A Contusion of left shoulder, initial encounter (principal); N39.0 Urinary tract infection, site not specified; W18.30XA Fall on same level, unspecified, initial encounter; E11.9 Type 2 diabetes mellitus without complications; I10 Essential (primary) hypertension; Z20.822 Contact with and (suspected) exposure to COVID-19; Z88.5 Allergy status to narcotic agent
CPT/HCPCS: 96365; 96361; 93005; 87088; 85025; 87086; 80048; 36415; 83735; 85610; 80076; 81003; 84484; 83880; 70450; 71250; 72125; 71045; 72170; 73502; 73030; 96375; 99285; U0003; J3010; J7040; J7030; J2405

== ENCOUNTER 2022-03-21 19:47 | Observation (INO) | payer OTHER ==
--- OUTSIDE RECORDS SUMMARY | 2022-03-21 19:50 | XMS REPORT | Clinical Summary ---
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); MD Kinsey Squamous cell c [...] Alexys RN Squamous cell c arcinoma of faith; Squamous cell c arcinoma of skin of [...] Chyna Velazquez Services MD 06/21/2021 Travel after 03/21/2021 Surgical History Surgery Date Site/Laterality Comments COLONOSCOPY [...] 09/20/2021 9:52 notified Fransisca juárez RN AM [facility] Pulse 67 09/20/2021 9:52 AM [facility] Temperature 36.6 C (97.9 F) 09/20/2021 9:52 AM [facility] Respiratory Rate 18 09/20/2021 9:51 AM [facility] Oxygen Saturation 96% 08/23/2021 11:23 AM CDT Inhaled Oxygen - - Concentration Weight 65.9 kg (145 lb 4.5 09/20/2021 9:51 oz) AM [facility] Height 148.5 cm (4' 10.47") 06/21/2021 9:40 AM CDT Body Mass Index 29.88 06/21/2021 9:40 AM CDT Plan of Treatment Date Type Specialty Care Team Description 06/30/2022 Office Visit Dermatology Chyna Velazquez M D [address] [place], [place] [address] (Wo rk) Health Maintenance Due Date Last Done Comments COVID-19 Vaccination (1) 1940 Procedures Procedure Name Priority Date/Time Associated Comments Diagnosis PATHOLOGY BIOPSY Routine 09/20/2021 10:18 Neoplasm of Results for this INTERPRETATION AM [facility] uncertain behavior procedu re are in of [...] in of skin the results section. after 03/21/2021 Results Pathology Biopsy Interpretation (09/20/2021 10:18 AM [facility])Only the most recent of 3 resultswithin the time period is included. Component Value Ref Test Analysis Performed Pathologis t Range Method Time At Signature Addendum 1 Multiple additional deeper t issue sections have been cut and examined. 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 1:25 PM signed by Junior See comment. [facility] Nurys Lima on 09/21/2021 at 12:18 PM Comment An additional 09/23/2021 [facility] biopsy may be 1:25 PM considered should [facility] this lesion fail to respond to conservative therapy. Gross A: 09/23/2021 [facility] Description Skin, r lateral submandibula r jawline - 4-5 mm pink scaly thin papule - ?scc in situ: 1 hdz skin shave, 0.6 x 0.4 x 0.1 cm. The margins are inked, bisected, entirely submitted in A1. ET 1:25 P M [facility] Disclaimer "Some tests 09/23/2021 [facility] reported here may 1:25 PM have been [facility] developed and performance characteristics determined by [facility]. These tests have not been specifically cleared or approved by the U.S. Food and Drug Administration. If applicable, controls were reviewed and showed appropriate reactivity." Specimen Anatomical Collection Method Collection Time Receive d Time (Source) Location / / Volume Laterality Tissue (Skin) 09/20/2021 10:18 09/20/2021 AM [facility] 3:42 PM [facility] Chyna Velazquez MD LAB PATHOLOGY ORDERABLES Performing Organization Address City/State/ZIP Code Phon e Number [facility] [place] [address] [id number] [place] Upper [employer]rem[facility] [employer] [...] with the final report. 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
--- OUTSIDE RECORDS SUMMARY | 2022-03-21 19:56 | XMS REPORT | Continuity of Care Document ---
:1935 Author Organization [facility] t Address [address] [place] [address] Care Team Providers Name Role Phone ASHLI [...] Number Effective Date Expiration Date S ource [facility] [id number] 2020 [facility] 00:00:00 PPO MEDICARE A B [id number] 1998 00:00:00 [employer] TRS RETIREES [id number] 2010 2010 00:00:00 00:00:00 [facility] MEDICARE [id number] ADVANTAGE 00:00:00 [employer] PPO I [id number] 2010 00:00:00 [facility] [id number] 2020 2020 00:00:00 00:00:00 Problems Condition Condition [...] Added automatic ally from request for surgery [id number] Spondyloli Spondyloli Disease Active Overview : 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 Added automatic ally from request for surgery [id number] Trochanter Trochanter Disease Active Overview : Methodi ic ic 2-[address] bursitis bursitis 00:00: g of this Hos mario of right of right 00 note l hip hip might be different from the original. Added automatic ally from request for surgery [id number] Diverticul Diverticul Disease Active M ethodi itis [...] NO KNOWN Allergy Active [facility] Family History Family Member Diagnosis Comments Start Date Stop Date Source Natural brother Diabetes [facility] Natural father Lung cancer [facility] Natural mother Old age [facility] Social History Social Habit Start Date Stop Date Quantity Comments Source History [facility] Jainism Alcohol Frequency Hospita l Exposure to Not sure University SARS-CoV-2 [facility] (event) Branch History [facility] Jainism Alcohol Std Hospital Drinks History [facility] Jainism Alcohol Binge Hospital History [facility] 2021-03-08 2021-03-08 17 University o f Education 00:00:00 00:00:00 [facility] Alcohol intake 2020-09-17 2020-09-17 .14 /d Jainism 00:00:00 00:00:00 Hospital Alcohol Comment 2019-10-31 2019-10-31 1-2 times a year [facility] 00:00:00 00:00:00 Hospital Tobacco use and 2016-05-06 2016-05-06 Smokeless tobacco Me [facility] exposure 00:00:00 00:00:00 non-user Hospital Sex Assigned At [birth year] Jainism 00:00:00 00:00:00 Hospital Smoking Status Start Date Stop Date Source Never smoker [facility] Branch Medications Ordered Filled Start Stop Current Ordering Indication Dosage Frequency Signature Comments Components Source Medication Medication Date Date Medication? Clinician (SIG) Name Name predniSONE Yes [id number] 5mg Take 1 Univers 5 mg tablet 5-27 tablet by ity of 00:00: mouth [place] 00 daily. Medical Branch predniSONE Yes [id number] 5mg Take 1 Univers 5 mg tablet [...] 2 ity of Min Cmb#15 19:33: (two) [place] (CENTRATEX) 14 times Medical 106 mg daily. Branch iron- 1 mg Cap famciclovir 2020- No 1{tbl} Take 1 U nivers (FAMVIR 5-26 05-26 tablet by ity of ORAL) 17:25: 00:00 mouth 3 [place] 18 :00 (three) Medical times [place] daily. hydrOXYchlo 2020- No 200mg Take 200 [...] mouth ity of capsule 17:25: 00:00 daily. [place] 18 :00 Medical Branch rosuvastati 2020- No 5mg Take 5 mg Univers n (CRESTOR) 5-26 05-26 by mouth ity of 5 mg tablet 17:25: 00:00 at [place] 18 :00 bedtime. Medical Branch carvediloL 2020- No 12.5mg Take 12.5 Univers (COREG) 5-26 05-26 mg by ity of 12.5 mg 17:25: 00:00 mouth 2 [place] tablet 18 :00 (two) Medical times [place] daily with meals. metFORMIN 2020- No 500mg Take 500 Un ignacia 500 mg 5-26 05-26 mg by ity of tablet 17:25: 00:00 mouth 2 [place] 18 :00 (two) Medical times [place] daily with meals. DULoxetine 2020- No 30mg Take 30 mg Univers 30 mg 5-26 05-26 by mouth ity of capsule 17:25: 00:00 daily. [place] 18 :00 Medical Branch olmesartan 2020- No 40mg Take 40 mg Univers 40 mg 5-26 05-26 by mouth ity of tablet 17:25: 00:00 daily. [place] 18 :00 Medical Branch famciclovir 2020- No [...] mouth ity of capsule 17:25: 00:00 daily. [place] 18 :00 Medical Branch rosuvastati 2020- No 5mg Take 5 mg Univers n (CRESTOR) 5-26 05-26 by mouth ity of 5 mg tablet 17:25: 00:00 at [place] 18 :00 bedtime. Medical Branch carvediloL 2020- No 12.5mg Take 12.5 Univers (COREG) 5-26 05-26 mg by ity of 12.5 mg 17:25: 00:00 mouth 2 [place] tablet 18 :00 (two) Medical times Branch daily with meals. famciclovir 2020- No 1{tbl} Take 1 U nivers (FAMVIR 5-26 05-26 tablet by ity of ORAL) 17:25: 00:00 mouth 3 [place] 18 :00 (three) Medical times Branch daily. [...] times Branch daily with meals. hydrOXYchlo Yes [id number] 200mg Take 1 Univers roQUINE 5-26 tablet by ity of (PLAQUENIL) 00:00: mouth [place] 200 mg 00 daily. Medical tablet Branch rosuvastati Yes [id number] 5mg Take 1 Univers n (CRESTOR) 5-26 tablet by ity of 5 mg tablet 00:00: mouth [place] 00 bedtime. Medical Branch carvediloL Yes [id number] 12.5mg Take 1 Univers (COREG) 5-26 tablet by ity of 12.5 mg 00:00: mouth 2 [place] tablet 00 (two) Medical times Branch daily with meals. levothyroxi Yes [id number] 88ug Take 1 Univers ne 88 mcg 5-26 tablet by ity o f tablet 00:00: mouth [place] 00 every Medical morning. Branch 6AM lactobacill 0 Yes [id number] 1{tbl} Take 1 Univers us 5-26 tablet by ity of acidophilus 00:00: mouth 2 [place] 25 million 00 (two) Medical cell -100 times Branch mg captab daily. hydrOXYchlo Yes [id number] 200mg Take 1 Univers roQUINE 5-26 tablet by ity of (PLAQUENIL) 00:00: mouth [place] 200 mg 00 daily. Medical tablet Branch rosuvastati Yes [id number] 5mg Take 1 Univers n (CRESTOR) 5-26 tablet by ity of 5 mg tablet 00:00: mouth at [place] 00 bedtime. Medical Branch carvediloL Yes [id number] 12.5mg Take 1 Univers (COREG) 5-26 tablet by ity of 12.5 mg 00:00: mouth 2 [place] tablet 00 (two) Medical times Branch daily with meals. levothyroxi Yes [id number] 88ug Take 1 Univers ne 88 mcg 5-26 tablet by ity o f tablet 00:00: mouth [place] 00 every Medical morning. Branch 6AM lactobacill Yes [id number] 1{tbl} Take 1 Univers us 5-26 tablet by ity of acidophilus 00:00: mouth 2 [place] 25 million 00 (two) Medical cell -100 times Branch mg captab daily. furosemide 2020- No [id number] 20mg Take 1 Univers 20 mg 5-26 06-26 tablet by ity of tablet 00:00: 04:59 mouth [place] 00 :00 daily for Medical 30 days. Branch KCL 10 mEq 2020- No [id number] 20meq Take 2 Univers tablet 5-26 06-26 tablets by ity of 00:00: 04:59 mouth [place] 00 :00 daily for Medical 30 days. Branch furosemide 2020- No [id number] 20mg Take 1 Univers 20 mg 5-26 06-26 tablet by ity of tablet 00:00: 04:59 mouth [place] 00 :00 daily for Medical 30 days. Branch KCL 10 mEq 2020- No [id number] 20meq Take 2 Univers tablet 5-26 06-26 tablets by ity of 00:00: 04:59 mouth [place] 00 :00 daily for Medical 30 days. Branch vancomycin 2020- No [id number] Take 1 Univers 125 mg 5-26 06-20 capsule by ity of capsule 00:00: 04:59 mouth 4 [place] 00 :00 (four) Medical times Branch daily for 10 days, THEN 1 capsule 2 (two) times daily for 7 days, THEN 1 capsule daily for 7 days. vancomycin 2020- No [id number] Take 1 Univers 125 mg 5-26 06-20 [...] 00 First dose Medical (HumaLOG) + on [facility] Branch Fsbg 03/09/21 at Testing [...] mg 00 :14 First dose Medical on [facility] 03/09/21 at 0900, Until Discontinu ed, Routine carvediloL Yes 12.5mg 12.5 mg, U nivers (COREG) 03-09 Oral, BID ity of tablet 12.5 13:00: MEALS, [place] mg 00 First dose Medical on [facility] 03/09/21 at 0800, Until Discontinu ed, Routine vancomycin No 125mg 125 mg, Un ignacia (VANCOCIN) 03-09 Oral, QID, it y of capsule 125 13:00: 21:36 56 doses, [place] mg 00 :50 First dose Medical on [facility] 03/09/21 at 0800, Last dose on Thu03/22/21 at 2000, Routine
Reason for Anti-Infec tive: Documented Infection< br>Documen roxanna Infection Site: Abdominal< br>Duratio n of Therapy: 14 days levothyroxi Yes 88ug 88 mcg, Uni vers ne 03-09 Oral, ity of (SYNTHROID) 11:00: QAM-0600, [place] tablet 88 00 First dose Medi eduar mcg on [facility] 03/09/21 at 0600, Until Discontinu ed, Routine rosuvastati Yes 5mg 5 mg, Unive rs n (CRESTOR) 03-09 Oral, QHS, it y of tablet 5 mg 02:00: First dose [place] 00 on Thu [facility] 03/08/21 at Branch 2100, Until Discontinu ed, Routine enoxaparin Yes 40mg 40 mg, Unive rs (LOVENOX) 03-08 Subcutaneo ity of injection 22:00: us, DAILY, [place] 40 mg 00 First dose Medical on Thu [place] 03/08/21 at 1700, Until Discontinu ed, Routine acetaminoph Yes 650mg 650 mg, Un ignacia en 03-08 Oral, ity of (TYLENOL) 19:47: Q6HPRN, [place] tablet 650 32 Starting Medic al mg [...] Medi eduar RTU 10 mEq 03/08/21 at [facility] 1330, 100 mL KCL 2020- No [...] 03/08/21 at 1315, Routine iohexol 2020- No [id number] 100mL 100 mL, Univers (OMNIPAQUE 03-08 Intravenou it y of 350 17:25: 17:25 s, ONCE, 1 [place] BULK-100 00 :00 dose, Fri Medica l mL) 03/08/21 at Branch injection 1245, 100 mL Routine olmesartan 2021-0 Yes 40mg Take 40 mg U nivers 40 mg 5-19 by mouth ity of tablet 19:02: daily. [address] Iron-Folic 0 Yes Take by Uni vers Acid-Mv, 5-19 mouth 2 ity of Min Cmb#15 19:02: (two) [place] (CENTRATEX) 37 times Medical 106 mg daily. Branch iron- 1 mg Cap olmesartan 0 Yes 40mg Take 40 mg U nivers 40 mg 5-19 by mouth ity of tablet 19:02: daily. [address] Iron-Folic 0 Yes Take by Uni vers Acid-Mv, 5-19 mouth 2 ity of Min Cmb#15 19:02: (two) [place] (CENTRATEX) 37 times Medical 106 mg daily. Branch iron- 1 mg Cap olmesartan 0 Yes 40mg Take 40 mg U nivers 40 mg 5-19 by mouth ity of tablet 19:02: daily. [address] Iron-Folic Yes Take by Uni vers Acid-Mv, 5-19 mouth 2 ity of Min Cmb#15 19:02: (two) [place] (CENTRATEX) 37 times Medical 106 mg daily. Branch iron- 1 mg Cap levothyroxi 0 Yes 88ug Take 88 Uni vers ne 88 mcg 5-19 mcg by ity of tablet 19:01: mouth [place] [address] [place] [address] metFORMIN 0 Yes 500mg Take 500 Uni vers 500 mg 5-19 mg by ity of tablet 19:01: mouth 2 [place] [address] ([facility]) [facility] daily with meals. DULoxetine 0 Yes 30mg Take 30 mg U nivers 30 mg 5-19 by mouth ity of capsule 19:01: daily. [address] levothyroxi 0 Yes 88ug Take 88 Uni vers ne 88 mcg 5-19 mcg by ity of tablet 19:01: mouth [place] [address] [place] [address] metFORMIN 2020-0 Yes 500mg Take 500 Uni vers 500 mg 5-19 mg by ity of tablet 19:01: mouth 2 [place] [address] (two) [facility] daily with meals. DULoxetine 2020-0 Yes 30mg Take 30 mg U nivers 30 mg 5-19 by mouth ity of capsule 19:01: daily. [address] levothyroxi Yes 88ug Take 88 Uni vers ne 88 mcg 5-19 mcg by ity of tablet 19:01: mouth [place] [address] daily. 6AM Medical Branch metFORMIN 0 Yes 500mg Take 500 Uni vers 500 mg 5-19 mg by ity of tablet 19:01: mouth 2 [place] [address] (two) Medical times Branch daily with meals. DULoxetine Yes 30mg Take 30 mg U nivers 30 mg 5-19 by mouth ity of capsule 19:01: daily. [address] Branch famciclovir 0 Yes 1{tbl} Take 1 Un ignacia (FAMVIR 5-19 tablet by ity of ORAL) 19:00: mouth 3 [place] [address] (three) Medical times Branch daily. famciclovir 0 Yes 1{tbl} Take 1 Un ign[place] (FAMVIR 5-19 tablet by ity of ORAL) 19:00: mouth 3 [place] [address] (three) Medical times Branch daily. famciclovir Yes 1{tbl} Take 1 Un [place] (FAMVIR 5-19 tablet by ity of ORAL) 19:00: mouth 3 [place] [address] (three) Medical times Branch daily. GABAPENTIN 2020-2020- No 100mg Take 100 U nivers ORAL 5-19 05-19 mg by ity of 18:59: 00:00 mouth 3 [place] 52 :00 (three) Medical times Branch daily. GABAPENTIN 2020-0 2020- No 100mg Take 100 U nivers ORAL 5-19 05-19 mg by ity of 18:59: 00:00 mouth 3 [place] 52 :00 (three) Medical times Branch daily. GABAPENTIN 2020-0 2020- No 100mg Take 100 U nivers ORAL 5-19 05-19 mg by ity of 18:59: 00:00 mouth 3 [place] 52 :00 (three) Medical times Branch daily. GABAPENTIN 2020-0 2020- No 100mg Take 100 U nivers ORAL 5-19 05-19 mg by ity of 18:59: 00:00 mouth 3 [place] 52 :00 (three) Medical times Branch daily. ofloxacin 2020-0 202- No 1[drp] Place 1 Un ignacia 0.3 % 5-19 05-19 Drop in ity of ophthalmic 18:59: 00:00 left eye 3 [place] solution 49 :00 (three) Medical times Branch [...] ity of 5 mg tablet 18:56: at [place] [address] bedtime. Medical Branch carvediloL Yes 12.5mg Take [...] ity of 5 mg tablet 18:56: at [place] [address] bedtime. Medical Branch carvediloL 2021-0 Yes 12.5mg [...] times Branch daily with meals. furosemide Yes [id number] 40mg Take 1 Univers 40 mg 5-19 tablet by ity of tablet 00:00: mouth [place] 00 daily. Medical Branch furosemide Yes [id number] 40mg Take 1 Univers 40 mg 5-19 tablet by ity of tablet 00:00: mouth [place] 00 daily. Medical Branch furosemide Yes [id number] 40mg Take 1 Univers 40 mg 5-19 tablet by ity of tablet 00:00: mouth [place] 00 daily. Medical Branch KCL 20 mEq 2020- No [id number] 20meq Take 1 Univers tablet 5-19 06-19 tablet by ity of 00:00: 04:59 mouth [place] 00 :00 daily for Medical 30 days. Branch KCL 20 mEq 2020- No [id number] 20meq Take 1 Univers tablet 5-19 06-19 tablet by ity of 00:00: 04:59 mouth [place] 00 :00 daily for Medical 30 days. Branch KCL 20 mEq 2020- No [id number] 20meq Take 1 Univers tablet 5-19 06-19 tablet by ity of 00:00: 04:59 mouth [place] 00 :00 daily for Medical 30 days. Branch furosemide 2020- No [id number] 40mg Take 1 Univers 40 mg 5-19 05-26 tablet by ity of tablet 00:00: 00:00 mouth [place] 00 :00 daily. Medical Branch KCL 20 mEq 2020- No [id number] 20meq Take 1 Univers tablet 5-19 05-26 [...] by mouth ity of capsule 22:16: daily. [place] 54 Medical Branch rosuvastati Yes 5mg Take [...] by mouth ity of capsule 22:16: daily. [place] 54 Medical Branch rosuvastati Yes 5mg Take [...] by mouth ity of capsule 22:16: daily. [place] [address] Medical Branch rosuvastati 0 Yes 5mg Take 5 mg U nivers n (CRESTOR) 5-07 by mouth ity of 5 mg tablet 22:16: at [place] [address] bedtime. Medical Branch carvediloL Yes 12.5mg Take 12.5 Univers (COREG) 5-07 mg by ity of 12.5 mg 22:16: mouth 2 [place] tablet 54 (two) Medical times Branch daily with meals. metFORMIN 2020- No 500mg Take 500 Un ignacia 500 mg - 05-07 mg by ity of tablet 20:47: 00:00 mouth 2 [place] 14 :00 (two) Medical times Branch daily with meals. olmesartan 2020- No 40mg Take 40 mg Univers 40 mg 02-22-07 by mouth ity of tablet 20:47: 00:00 daily. [place] 14 :00 OLMESARTAN Medical MEDOXOMIL Branch predniSONE 2020- No 20mg Take 20 mg Univers 20 mg 02-22-07 by mouth ity of tablet 20:47: 00:00 daily. 3 [place] 14 :00 TABS DAILY Medical FOR 3 Branch DAYS, THEN 2 TABLETS BY MOUTH FOR 3 DAYS LAST TAKEN 5.2.21 sulfur 2020- No [id number] 5mL 5 mL, Un ignacia hexafluorid 02-22- 9109 Intravenou i ty of e microsphr 18:15: 18:15 s, ONCE, 1 [place] (LUMASON) 00 :00 dose, Fri Medic al injection 5 02/22/21 at [facility] mL 1315, Routine
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 prednisoLON Yes [id number] 1[drp] Place 1 Univers E acetate 1 5-07 Drop in ity o f % 00:00: left eye 4 [place] ophthalmic 00 (four) Medical suspension times Branch drops daily. lactobacill 2020- No [id number] 1{tbl} Take 1 Univers us 5-07 06-07 tablet by ity of acidophilus 00:00: 04:59 mouth 2 [place] 25 million 00 :00 (two) Medical cell -100 times Branch mg captab daily for 30 days. lactobacill 2020- No [id number] 1{tbl} Take 1 Univers us 5-07 06-07 tablet by ity of acidophilus 00:00: 04:59 mouth 2 [place] 25 million 00 :00 (two) Medical cell -100 times Branch mg captab daily for 30 days. lactobacill 2020- No [id number] 1{tbl} Take 1 Univers us 5-07 06-07 tablet by ity of acidophilus 00:00: 04:59 mouth 2 [place] 25 million 00 :00 (two) Medical cell -100 times Branch mg captab daily for 30 days. lactobacill 2020- No [id number] 1{tbl} Take 1 Univers us 5-07 06-07 tablet by ity of acidophilus 00:00: 04:59 mouth 2 [place] 25 million 00 :00 (two) Medical cell -100 times Branch mg captab daily for 30 days. lactobacill 2020- No [id number] 1{tbl} Take 1 Univers us 5-07 06-07 tablet by ity of acidophilus 00:00: 04:59 mouth 2 [place] 25 million 00 :00 (two) Medical cell -100 times Branch mg captab daily for 30 days. lactobacill 2020- No [id number] 1{tbl} Take 1 Univers us 5-07 06-07 tablet by ity of acidophilus 00:00: 04:59 mouth 2 [place] 25 million 00 :00 (two) Medical cell -100 times Branch mg captab daily for 30 days. lactobacill 2020- No [id number] 1{tbl} Take 1 Univers us 5-07 05-26 tablet by ity of acidophilus 00:00: 00:00 mouth 2 [place] 25 million 00 :00 (two) Medical cell -100 times Branch mg captab daily for 30 days. lactobacill 2020- No [id number] 1{tbl} Take 1 Univers us 5-07 05-26 tablet by ity of acidophilus 00:00: 00:00 mouth 2 [place] 25 million 00 :00 (two) Medical cell -100 times Branch mg captab daily for 30 days. lactobacill 2020- No [id number] 1{tbl} Take 1 Univers us 5-07 05-26 tablet by ity of acidophilus 00:00: 00:00 mouth 2 [place] 25 million 00 :00 (two) Medical cell -100 times Branch mg captab daily for 30 days. prednisoLON 2020- No [id number] 1[drp] Place 1 Univers E acetate 1 5- 05-19 Drop in ity of % 00:00: 00:00 left eye 4 [place] ophthalmic 00 :00 (four) Medical suspension times Branch drops daily. prednisoLON 2020- No [id number] 1[drp] Place 1 Univers E acetate 1 5- 05-19 Drop in ity of % 00:00: 00:00 left eye 4 [place] ophthalmic 00 :00 (four) Medical suspension times Branch drops daily. prednisoLON 2020- No [id number] 1[drp] Place 1 Univers E acetate 1 5- 05-19 Drop in ity of % 00:00: 00:00 left eye 4 [place] ophthalmic 00 :00 (four) Medical suspension times Branch drops daily. prednisoLON 2020- No [id number] 1[drp] Place 1 Univers E acetate 1 5-07 05-19 Drop in ity of % 00:00: 00:00 left eye 4 [place] ophthalmic 00 :00 (four) Medical suspension times Branch drops daily. levoFLOXaci 2020- No [id number] 500mg Take 1 Univers n 500 mg [...] 0600, Until Discontinu ed iohexol 2020- No [id number] 120mL 120 mL, U nivers (OMNIPAQUE 02-21- [...] ity of succ 07:30: 06:26 Push, ONCE [place] (SOLU-MEDRO 00 :00 NOW, 1 Medica l [...] mL mg/kg Branch IV infusion ?47.8 kg [place] weight), IV Infusion, Q8H ABX, First dose [...] morpHINE No 2mg 2 mg, Slow Un ignacia injection 2 506 05-06 IV Push, ity of mg 06:45: 05:40 ONCE, 1 [place] 00 :00 dose, [place] Medical 02/21/21 at [...] ity of 1,000 mg in 06:30: Piggyback, [place] NaCl 0.9% 00 Q12H ABX, Medic al (NS) 50 mL First dose [facility] MINI-BAG on [place] 02/21/21 at 0130, Until [...] injection 37 Starting Medica l 25 mL [facility] 02/21/21 Branch at 0107, Until Discontinu ed, KIRSTY, Blood Glucose < or = 70 mg/dL and patient is unable to swallow or has mental status changes. predniSONE Yes 10mg 10 mg, Unive rs (DELTASONE) 02-21 Oral, ity of tablet 10 05:45: DAILY, [place] mg 00 First dose Medical on [facility] Branch 02/21/21 at 0045, Until Discontinu ed, Routine moxifloxaci Yes 1[drp] 1 Drop, U omar n (VIGAMOX) 02-21 Left Eye, ity of 0.5 % 05:45: TID, First [place] ophthalmic 00 dose on Medica l drops 1 [facility] 02/21/21 Branch Drop at 0045, Until Discontinu [...] Medica l ) tablet 25 02/21/21 at [facility] mg 0045, Until Discontinu ed, Routine lactobacill [...] injection 4 41 Starting Medi eduar mg [facility] 02/21/21 Branch at 0006, Until Discontinu ed, Routine, Nausea and Vomiting (N/V) FENTanyl PF 2020- No 25ug 25 mcg, Un ignacia (SUBLIMAZE 02-20 05-05 Slow IV ity o f (PF)) 23:45: 23:05 Push, [place] injection 00 :00 ONCE, 1 Medical 25 mcg dose, Wed [place] 02/20/21 at 1845, STAT ondansetron 2020- No [...] :00 Infusion, Medical ONCE, 1 Branch dose, [facility] 02/20/21 at 1715, STAT FENTanyl PF [...] MG tablet 16:50: daily. Medi eduar 20 [place] levothyroxi Yes 88ug QD Take 88 [facility] [...] 40 MG 16:50: daily. Medical tablet 20 [place] leflunomide Yes 10mg QD Take [address] (ARAVA) 10 2-11 by mouth [facility] MG tablet 16:50: daily. Medica l 20 [place] rosuvastati Yes 5mg QD Take [address] n (CRESTOR) 2-11 by mouth [facility] 5 MG tablet 16:50: daily. [address] omeprazole Yes 20mg QD Take [address] (PriLOSEC) 2-11 by mouth [facility] 20 MG 16:50: daily. Medical capsule 20 [place] cyanocobala Yes 100ug QD Take 100 C [...] Luke s 1 MG tablet 16:50: daily. [address] levothyroxi Yes 88ug QD Take 88 [...] 40 MG 16:50: daily. Medical tablet 20 [place] leflunomide Yes 10mg QD Take 10 mg [...] 20 MG 16:50: daily. Medical capsule 20 [place] cyanocobala Yes 100ug QD Take [address] min, 2-11 mcg by [facility] vitamin 16:50: mouth Medical B-12, 100 20 daily. [place] MCG tablet ferrous Yes 325mg Take 325 [...] 00:00 mouth Medical tablet 09 :00 daily. [place] hydrOXYchlo Yes QD Take by Met hodi [...] Hospita capsule 57 l traMADoL 2019-10 Yes [id number] 50mg Q6H Take 50 mg Me thodi [...] 2021-03-13 119 mm[Hg] University of pressure 17:00:00 [facility] Diastolic blood 2021-03-13 66 mm[Hg] University o f pressure 17:00:00 [facility] Heart rate 2021-03-13 89 /min University of 17:00:00 [facility] Body temperature 2021-03-13 36.11 [place] University of 17:00:00 [facility] Respiratory rate 2021-03-13 18 /min University of 17:00:00 [facility] Oxygen saturation 2021-03-13 99 /min [facility] in Arterial blood 17:00:00 [facility] by Pulse oximetry Branch Body weight 2021-03-13 56.7 kg University of 09:57:00 [facility] BMI 2021-03-13 23.62 kg/m2 University of 09:57:00 [facility] Body height 2021-03-08 154.9 cm University of 20:15:00 [facility] Systolic blood 2021-03-06 120 mm[Hg] University of pressure 19:03:00 [facility] Diastolic blood 2021-03-06 72 mm[Hg] University o f pressure 19:03:00 [facility] Heart rate 2021-03-06 79 /min University of 19:03:00 [facility] Respiratory rate 2021-03-06 19 /min University of 19:03:00 [facility] Body height 2021-03-06 152.4 cm University of 19:03:00 [facility] Body weight 2021-03-06 57.471 kg University of 19:03:00 [facility] BMI 2021-03-06 24.74 kg/m2 University of 19:03:00 [facility] Oxygen saturation 2021-03-06 96 /min [place] [facility] in Arterial blood 19:03:00 [facility] by Pulse oximetry Branch Body height 2021-03-05 152.4 cm University of 20:14:00 [facility] Body weight 2021-03-05 57.749 kg University of 20:14:00 [facility] BMI 2021-03-05 24.86 kg/m2 University of 20:14:00 [facility] Systolic blood 2021-02-22 139 mm[Hg] University of pressure 16:00:00 [facility] Diastolic blood 2021-02-22 64 mm[Hg] [place] o f pressure 16:00:00 [facility] Heart rate 2021-02-22 77 /min [facility] 16:00:00 [facility] Body temperature 2021-02-22 35.83 [place] [facility] 16:00:00 [facility] Respiratory rate 2021-02-22 18 /min [facility] 16:00:00 [facility] Oxygen saturation 2021-02-22 95 /min [facility] in Arterial blood 16:00:00 [facility] by Pulse oximetry [place] Body weight 2021-02-22 60.963 kg [facility] 08:01:00 [facility] BMI 2021-02-22 25.39 kg/m2 [facility] 08:01:00 [facility] Body height 2021-02-21 154.9 cm [facility] 01:11:00 [facility] HEIGHT 2020-11-29 156.2 cm 11:27:00 WEIGHT 2020-11-29 60.555 kg 11:27:00 HEIGHT 2020-11-26 156.2 cm 12:20:00 WEIGHT 2020-11-26 66.225 kg 12:20:00 Systolic blood 2020-11-29 162 mm[Hg] PER [facility] pressure 15:17:00 [facility] er Diastolic blood 2020-11-29 70 mm[Hg] PER [facility] pressure 15:17:00 [facility] er Heart rate 2020-11-29 62 /min [facility] 15:17:00 [facility] Body temperature 2020-11-[address] [facility] 15:17:00 [facility] Respiratory rate 2020-11-29 16 /min [facility] 15:17:00 [facility] Oxygen saturation 2020-11-29 95 /min [facility] Javed es in Arterial blood 15:17:00 [facility] nter by Pulse oximetry Body height 2020-11-[address] [facility] 11:27:00 [facility] Body weight 2020-11-[address] [facility] 11:27:00 [facility] BMI 2020-11-29 24.82 kg/m2 [facility] 11:27:00 [facility] Center Procedures Procedure Date / Time Performing Clinician Source Performed POCT GLUCOSE (AUTOMATED) 2021-03-13 17:02:00 Bradford Paul versity of [facility] POCT GLUCOSE (AUTOMATED) 2021-03-13 13:32:00 Bradford Paul Uni versity of [facility] POCT GLUCOSE (AUTOMATED) 2021-03-13 01:28:00 Bradford Paul Uni versity of [facility] POCT GLUCOSE (AUTOMATED) 2021-03-12 20:56:00 Bradford Paul [facility] BASIC METABOLIC PANEL 2021-03-12 18:44:00 Bradford Paul [facility] (NA, K, CL, CO2, GLUCOSE, Medica l Branch BUN, CREATININE, CA) N-TERMINAL PRO-BNP 2021-03-12 18:44:00 Kera Ch [facility] POCT GLUCOSE (AUTOMATED) 2021-03-12 16:05:00 Bradford Paul [facility] POCT GLUCOSE (AUTOMATED) 2021-03-12 12:15:00 Bradford Paul Miryam versity of [facility] POCT GLUCOSE (AUTOMATED) 2021-03-12 01:26:00 Bradford Paul Miryam versity of [facility] POCT GLUCOSE (AUTOMATED) 2021-03-11 21:06:00 Bradford Paul Miryam versity of [facility] POCT GLUCOSE (AUTOMATED) 2021-03-11 16:00:00 Bradford Paul [facility] BASIC METABOLIC PANEL 2021-03-11 15:05:00 Jordan Will [facility] (NA, K, CL, CO2, GLUCOSE, Medica l Branch BUN, CREATININE, CA) POCT GLUCOSE (AUTOMATED) 2021-03-11 12:35:00 Bradford Paul Uni versity of [facility] POCT GLUCOSE (AUTOMATED) 2021-03-11 01:33:00 Bradford Paul Uni versity of [facility] POCT GLUCOSE (AUTOMATED) 2021-03-10 20:49:00 Bradford Paul [facility] POCT GLUCOSE (AUTOMATED) 2021-03-10 16:30:00 Bradford Paul [facility] POCT GLUCOSE (AUTOMATED) 2021-03-10 12:56:00 Bradford Paul [facility] MAGNESIUM 2021-03-10 10:12:[address] [facility] TROPONIN I 2021-03-10 10:12:[address] [facility] BASIC METABOLIC PANEL 2021-03-10 10:12[facility] ([facility], K, CL, CO2, GLUCOSE, Medica l Branch BUN, CREATININE, CA) N-TERMINAL PRO-BNP 2021-03-10 10:12:00 Amy [facility] HB ECG ROUTINE & RHYTHM 2021-03-10 10:08:12 Amy [facility] POCT GLUCOSE (AUTOMATED) 2021-03-10 01:53:00 Bradford Paul [facility] POCT GLUCOSE (AUTOMATED) 2021-03-09 21:41:00 Bradford Paul [facility] POCT GLUCOSE (AUTOMATED) 2021-03-09 16:59:00 Bradford Paul [facility] POCT GLUCOSE (AUTOMATED) 2021-03-09 13:45:00 Bradford Paul [facility] BASIC METABOLIC PANEL 2021-03-09 08:44:00 Bradford Paul [facility] (NA, K, CL, CO2, GLUCOSE, Medica l Branch BUN, CREATININE, CA) CBC WITH DIFF 2021-03-09 08:44:00 Bradford Paul [facility] D-DIMER 2021-03-09 01:19:00 Jordan Will [facility] CLOSTRIDIUM DIFFICILE 2021-03-09 01:19:00 Prabhakar Childs [facility] FECAL PATHOGENS BY PCR 2021-03-09 01:19:00 Prabhakar Childs [facility] XR CHEST 1 VW 2021-03-09 00:05:00 Jordan Will [facility] URINALYSIS 2021-03-08 18:40:00 Mina Wu [facility] URINE CULTURE 2021-03-08 18:40:00 Mina Wu [facility] COVID-19 (ID NOW RAPID 2021-03-08 18:24:00 [facility] LAB ONLY COVID 2021-03-08 18:24:00 Mina Wu [facility] INTERPRETATION [facility] CT ABDOMEN PELVIS W 2021-03-08 17:34:31 Mina Wu [facility] CONTRAST [facility] CT CHEST PULMONARY 2021-03-08 17:34:31 Mina Wu [facility] ANGIOGRAM [facility] FREE T4 2021-03-08 17:01:00 Singer Ionpolly Cardenas [facility] HB ECG ROUTINE & RHYTHM 2021-03-08 16:30:28 Ion Garcia [facility] STRIP [facility] LIPASE 2021-03-08 16:22:00 Singer [facility] TROPONIN I 2021-03-08 16:22:00 Singer [facility] THYROID STIMULATING 2021-03-08 16:22:00 Mina Wu [facility] HORMONE [facility] COMP. METABOLIC PANEL 2021-03-08 16:22:00 [facility] ([id number]) [facility] CBC WITH DIFF 2021-03-08 16:22:00 Singer Ion [facility] PROTHROMBIN TIME / INR 2021-03-08 16:22:00 Ion Garcia [facility] ACTIVATED PARTIAL 2021-03-08 16:22:00 Singer [facility] THRMPLAS YASMIN [facility] N-TERMINAL PRO-BNP 2021-03-08 16:22:00 Ibikunle, Folusho F [facility] HOSPITAL ADMISSION 2021-03-08 05:01:00 Doctor Unassigned, [facility] [place] [facility] CAROTID DUPLEX BILATERAL 2021-02-22 20:19:16 Kera Ch [facility] - BY VASCULAR LAB [facility] POCT GLUCOSE (AUTOMATED) 2021-02-22 16:00:00 Tyron Reyes [facility] POCT GLUCOSE (AUTOMATED) 2021-02-22 12:52:00 Tyron Reyes [facility] URIC ACID 2021-02-22 09:49:[address] [facility] MAGNESIUM 2021-02-22 09:49:[address] [facility] COMP. METABOLIC PANEL 2021-02-22 09:49:00 Tyron Reyes [facility] ([id number]) [facility] CBC WITH DIFF 2021-02-22 09:49:00 Amy ned [facility] N-TERMINAL PRO-BNP 2021-02-22 09:49:00 Amy ned [facility] POCT GLUCOSE (AUTOMATED) 2021-02-22 02:15:00 Tyron Reyes [facility] POCT GLUCOSE (AUTOMATED) 2021-02-21 21:16:00 Tyron Reyes [facility] POCT GLUCOSE (AUTOMATED) 2021-02-21 16:34:00 Tyron Reyes [facility] POCT GLUCOSE (AUTOMATED) 2021-02-21 13:03:00 Tyron Reyes [facility] OSMOLALITY URINE 2021-02-21 11:03:00 Amy ned [facility] LEGIONELLA URINARY 2021-02-21 11:03:00 Tyron Reyes [facility] ANTIGEN [facility] URINE CULTURE 2021-02-21 11:03:00 Amy ned [facility] URIC ACID 2021-02-21 09:10:00 Amy ned [facility] MAGNESIUM 2021-02-21 09:10:00 Tyron Reyes [facility] OSMOLALITY, SERUM OR 2021-02-21 09:10:00 Amy ned [facility] PLASMA [facility] TROPONIN I 2021-02-21 09:10:00 Amy ned [facility] COMP. METABOLIC PANEL 2021-02-21 09:10:00 Tyron Reyes [facility] ([id number]) [facility] SEDIMENTATION RATE 2021-02-21 09:10:00 Amy ned [facility] CBC WITH DIFF 2021-02-21 09:10:[address] [facility] N-TERMINAL PRO-BNP 2021-02-21 09:10:00 Amy ned [facility] CT ABDOMEN PELVIS W 2021-02-21 09:06:17 Amy ned [facility] CONTRAST [facility] XR SHOULDER 2+ VW RIGHT 2021-02-21 09:05:04 Tyron Reyes [facility] CT HEAD WO CONTRAST 2021-02-21 09:04:43 Amy ned [facility] POCT GLUCOSE (AUTOMATED) 2021-02-21 07:42:00 Tyron Reyes [facility] VITAMIN B12, LEVEL 2021-02-21 05:53:00 Amy ned [facility] TROPONIN I 2021-02-21 05:53:00 Amy ned [facility] IRON PANEL 2021-02-21 05:53:00 Amy ned [facility] PROTHROMBIN TIME / INR 2021-02-21 05:53:00 Amy ned [facility] VITAMIN D, 25-OH 2021-02-21 05:53:00 Amy [facility] PROCALCITONIN 2021-02-21 05:53:[address] [facility] POCT GLUCOSE (AUTOMATED) 2021-02-21 05:52:00 Prabhakar Childs [facility] XR FOREARM 2 VW RIGHT 2021-02-20 22:57:20 Jordan Walsh [facility] XR HUMERUS 2 VW RIGHT 2021-02-20 22:57:20 Jordan Walsh [facility] HB ECG ROUTINE & RHYTHM 2021-02-20 22:38:40 Jordan Walsh [facility] URINALYSIS 2021-02-20 22:10:00 Jordan Walsh [facility] SODIUM, URINE RANDOM 2021-02-20 22:10:00 Tyron Reyes [facility] PROTEIN CREAT RATIO URINE 2021-02-20 22:10:00 [facility] (ID NOW RAPID 2021-02-20 22:10:00 Jordan Walsh [facility] TESTING) Medical Branch LAB ONLY COVID 2021-02-20 22:10:00 Jordan Walsh [facility] BLOOD CULTURE SCREEN 2021-02-20 21:10:00 Jordan Walsh [facility] LACTIC ACID WHOLE BLOOD 2021-02-20 21:10:00 Jordan Walsh [facility] BLOOD CULTURE SCREEN 2021-02-20 21:02:00 Jordan Walsh [facility] PHOSPHORUS 2021-02-20 21:02:00 Tyron Reyes [facility] CREATINE KINASE 2021-02-20 21:02:00 Tyron Reyes [facility] URIC ACID 2021-02-20 21:02:00 Tyron Reyes [facility] LIPASE 2021-02-20 21:02:00 Jordan Walsh [facility] MAGNESIUM 2021-02-20 21:02:00 Tyron Reyes [facility] FERRITIN SERUM 2021-02-20 21:02:00 Tyron Reyes [facility] TROPONIN I 2021-02-20 21:02:00 Jordan Walsh [facility] THYROID STIMULATING 2021-02-20 21:02:00 Tyron Reyes [facility] HORMONE Medical Branch COMP. METABOLIC PANEL 2021-02-20 21:02:00 Jordan Walsh [facility] ([id number]) Medical Branch LIPID PANEL ([id number])(TOTAL 2021-02-20 21:02:00 Tyron Reyes [facility] CHOLESTEROL, Medical Branch TRIGLYCERIDES, HDL) CBC WITH DIFF 2021-02-20 21:02:00 Jordan Walsh [facility] GLYCOSYLATED HEMOGLOBIN 2021-02-20 21:02:00 Tyron Reyes [facility] (A1C) Medical Branch N-TERMINAL PRO-BNP 2021-02-20 21:02:00 Jordan Walsh [facility] XR CHEST 1 VW 2021-02-20 20:58:38 Jordan Walsh [facility] EKG-12 LEAD 2021-02-20 20:52:14 Doctor Unassigned, [facility] [place] [facility] [place] ASSIGNMENT OF BENEFITS 2021-02-20 20:48:04 Doctor Unassigned, [facility] Name [facility] [place] NOTICE OF PRIVACY 2021-02-20 20:47:37 Doctor Unaaddyigned, [facility] PRACTICES [place] Medical [facility] CONSENT/REFUSAL FOR 2021-02-20 20:47:11 Doctor Joceline, [facility] DIAGNOSIS AND TREATMENT [place] [facility] [place] REPORT OF PROCEDURE - 2020-11-29 14:12:20 Amor Muller [facility] ENDOSCOPY [facility] CYTOLOGY REQUEST 2020-11-29 14:08:18 Amor Muller [facility] CYTOLOGY 2020-11-29 14:08:00 Amor Muller [facility] UPPER ENDOSCOPY,FNA 2020-11-29 13:50:00 Amor Muller [facility] W/ULTRASOUND Center POCT-GLUCOSE METER 2020-11-29 11:45:00 Amor Muller [facility] Plan of Care Planned Activity Planned Date Details Comments Source Future Scheduled 2021-11-27 COVID-19 VACCINE (1) Met [facility] Test 23:55:17 [code = COVID-19 VACCINE (1)] [...] 00:00:00 (1 of 1 - Medical Center [id number] PCV13) [code = PNEUMOCOCCAL 65+ YRS (1 of 1 - [id number] PCV13)] Future Scheduled 1998 PNEUMOCOCCAL 65+ YRS [facility] Test 00:00:00 (1 of 1 - [facility] Center YHHX70_Twbdnst PCV13) [code = PNEUMOCOCCAL 65+ YRS (1 of 1 - NPET91_Vzemcyx PCV13)] Future Scheduled 1985 SHINGLES VACCINES (1 [...] Type Clinicians Facility Department ID 2021-08-18 Emergency [facility] [id number] Univers 20:31:48 [facility] 2021-07-27 Outpatient RENZO, [facility] Surgery [id number] SLE 00:46:32 AMOR 2021-06-19 Outpatient SRAVANI YATES MDA [id number] 16:55:25 CRICKET bill 2022-03-14 2022-03-14 Outpatient Chris PUENTES [facility] [id number] Univers 10:20:00 10:20:00 TA [id number] [facility] 2022-03-14 2022-03-14 Outpatient Chris PUENTES [facility] [id number] Univers 10:20:00 10:20:00 TA [facility] 2021-09-20 2021-09-20 Outpatient JACE ADKINS MDA MDA [id number] 09:41:37 10:28:58 ASHLEY bill 2021-08-23 2021-08-23 Outpatient JACE BENITEZ MDA MDA [id number] 11:09:34 12:02:10 VANI bill 2021-07-24 2021-07-24 Outpatient JACE BENITEZ MDA MDA [id number] 09:57:59 11:35:29 VANI bill 2021-07-11 2021-07-11 Outpatient JACE BENITEZ MDA MDA [id number] 07:24:23 16:14:43 VANI bill 2021 2021 Outpatient JACE LASSITER MDA [id number] 09:43:10 09:43:10 Dani bill 2021-07-04 2021-07-04 Outpatient JACE BENITEZ MDA MDA [id number] 08:03:03 12:45:35 VANI bill 2021-06-21 2021-06-21 Outpatient JACE ADKINS MDA MDA [id number] 09:37:53 11:15:25 ASHLEY bill 2021-06-21 2021-06-21 Outpatient JACE ADKINS MDA MDA [id number] MD 09:31:19 09:31:25 ASHLEY bill 2021-06-11 2021-06-11 Travel 1.2.840.1 [id number] Methodi 00:00:00 00:00:[address] 3.430.2.7 0.2.7.3.698 Ho spita .3.037932 084.8 l .8 2021-04-18 2021-04-18 Outpatient DIMA [facility] [id number] Univers 14:00:00 14:00:00 SENDIL [id number] [facility] 2021-04-18 2021-04-18 Outpatient R DIMA [facility] [id number] Univers 14:00:00 14:00:00 SENDIL [facility] 2021-03-14 2021-03-14 Transition Jaren Bullard [id number] Univers 00:00:00 00:00:00 of Care Tamika Zamudio [id number] i [place] [id number] [facility] 403 Branch 2021-03-08 2021-03-13 Emergency Mina Wu [facility] 1.2. [id number] [id number] Univers 11:13:00 14:30:00 Bradford Paul [id number] [place] [id number] [facility] 081 Branch 2021-03-12 2021-03-12 [facility] [id number] Univers 08:30:00 08:30:00 SENDIL [id number] ity [facility] 2021-03-12 2021-03-12 Outpatient R [facility] [id number] Univers 08:30:00 08:30:00 SENDIL ity [facility] 2021-03-08 2021-03-08 [facility] [id number] Univers 00:00:00 00:00:00 Sendil Kandi Marrufo [id number] [place] [id number] [address] 2021-03-06 2021-03-06 Office Dima [facility] 1.2.840.114 [id number] Univers 13:42:37 14:43:04 Visit Sendil Kandi Marrufo [id number] [place] [id number] Ia [address] 2021-03-06 2021-03-06 Outpatient R [facility] [id number] Univers 14:00:00 14:00:00 SENDIL [id number] ity [facility] 2021-03-06 2021-03-06 Outpatient R DIMA [facility] [id number] Univers 14:00:00 14:00:00 SENDIL ity [facility] 2021-03-05 2021-03-05 Office [facility] 1.2.840.114 [id number] Univers 15:09:13 16:42:02 Visit Fran RAY 350.1.13.10 i ty of [place] [id number] [facility] 144 Branch 2021-03-05 2021-03-05 Outpatient Chris DEMETRIUS [facility] [id number] Univers 15:15:00 15:15:00 FRAN ity of [facility] 2021-02-25 2021-02-25 Transition Jaren Arambula 1.2.840.114 [id number] Univers 00:00:00 00:00:00 of Care Luis Felipe Figueroa Robb 350.1.13.10 ity of [place]2.[place] [id number] [facility] 403 Branch 2021-02-20 2021-02-22 Hospital Jordan Walsh [facility] 1.2.840.11 [id number] Univers 14:56:00 17:10:00 Encounter Prabhakar Childs 350.1.13.10 ity of [place] Reyes 4.2.7.2.686 [facility] [id number] [facility] 081 Branch 2021-02-20 2021-02-20 Emergency X KENYETTA [facility] ERT [id number] Univers 14:56:00 14:56:00 JORDAN ity [facility] 2020-11-29 2020-11-[address] [facility] [id number] 09:49:00 15:37:00 Encounter [facility] 2020-11-29 2020-11-[address] [facility] [id number] [facility] 13:55:00 14:17:00 Event Ronda Joseph [facility] 2020-11-29 2020-11-[address] [facility] [id number] 12:00:00 13:00:00 [facility] 2020-11-29 2020-11-29 Travel [facility] [id number] [facility] 00:[facility]00 00:00:00 [facility] 2020-11-26 2020-11-[address] [facility] [id number] 11:40:00 23:59:00 Encounter [facility] 2020-11-26 2020-11-26 Outpatient EL SLEH SLE [id number] SLE 00:00:00 00:00:00 2020-11-26 2020-11-26 Travel [facility] [id number] [facility] 00:[facility]00 00:00:00 [facility] Results Test Description Test Time Test Comments Results Result Comments Source POCT GLUCOSE (AUTOMATED) 2021-03-13 17:08:53 Test Item Value Reference Range Interpretation Comme nts POCT GLU (test code = 2210565909) 125 mg/dL 70-110 H Lab Interpretation (test code = 28436-3) Abnormal [facility] GLUCOSE (AUTOMATED)2021-03-13 13:43:14 Test Item Value Reference Range Interpretation Comments POCT GLU (test code = 0337223097) 102 mg/dL 70-110 Lab Interpretation (test code = Normal 42522-4) [facility] GLUCOSE (AUTOMATED)2021-03-13 01:32:16 Test Item Value Reference Range Interpretation Comments POCT GLU (test code = 1444248489) 151 mg/dL 70-110 H Lab Interpretation (test code = Abnormal 84283-5) [facility] [id number] 22:10:14 Test Item Value Reference Range Interpretation Comments NT-proBNP (test code 1680 pg/mL See_Comment H [Autom ated = 5783867427) message] The system which generated this result transmitted reference range : <=450. The reference range was not used to interpret this result as normal/abnormal . CARL (test code = CARL) Biotin has been reported to cause a negative bias, interpret results relative to patient's use of biotin. Lab Interpretation Abnormal (test code = 68807-8) [facility] GLUCOSE (AUTOMATED)2021-03-12 21:33:57 Test Item Value Reference Range Interpretation Comments POCT GLU (test code = 1837047140) 182 mg/dL 70-110 H Lab Interpretation (test code = Abnormal 51077-6) [facility] (NA, K, CL, CO2, GLUCOSE, BUN, CREATININE, CA)2021-03-12 19:36:16 Test Item Value Reference Range Interpretation Comments NA (test code = 133 mmol/L 135-145 L 0594873338) K (test code = 4.7 mmol/L 3.5-5.0 8031931918) CL (test code = 104 mmol/L 98-108 4558276924) CO2 TOTAL (test code = 20 mmol/L 23-31 L 2209022483) AGAP (test code = 2-16 2772318536) BUN (test code = 23 mg/dL 7-23 3193574350) GLUCOSE (test code = 210 mg/dL 70-110 H 3101987932) CREATININE (test code = 1.20 mg/dL 0.50-1.04 H 5305890093) CALCIUM (test code = 9.2 mg/dL 8.6-10.6 5919636394) eGFR (test code = mL/min/1.73m2 1095510703) CRAL (test code = CARL) Association of Glomerular [...] tests). Lab Interpretation Abnormal (test code = 70957-7) [facility] GLUCOSE (AUTOMATED)2021-03-12 16:27:07 Test Item Value Reference Range Interpretation Comments POCT GLU (test code = 4507878379) 136 mg/dL 70-110 H Lab Interpretation (test code = Abnormal 41744-6) [facility] GLUCOSE (AUTOMATED)2021-03-12 12:46:34 Test Item Value Reference Range Interpretation Comments POCT GLU (test code = 2884900524) 93 mg/dL 70-110 Lab Interpretation (test code = Normal 15215-1) [facility] GLUCOSE (AUTOMATED)2021-03-12 10:18:23 Test Item Value Reference Range Interpretation Comments POCT GLU (test code = 2307524016) 143 mg/dL 70-110 H Lab Interpretation (test code = Abnormal 70705-9) [facility] GLUCOSE (AUTOMATED)2021-03-12 10:18:17 Test Item Value Reference Range Interpretation Comments POCT GLU (test code = 7088160515) 94 mg/dL 70-110 Lab Interpretation (test code = Normal 53035-2) [facility] GLUCOSE (AUTOMATED)2021-03-12 01:30:35 Test Item Value Reference Range Interpretation Comments POCT GLU (test code = 3419311980) 167 mg/dL 70-110 H Lab Interpretation (test code = Abnormal 46135-1) [facility] GLUCOSE (AUTOMATED)2021-03-11 21:25:48 Test Item Value Reference Range Interpretation Comments POCT GLU (test code = 7558751504) 145 mg/dL 70-110 H Lab Interpretation (test code = Abnormal 86176-8) [facility] METABOLIC PANEL (NA, K, CL, CO2, GLUCOSE, BUN, CREATININE, CA)2021-03-11 16:22:13 Test Item Value Reference Range Interpretation Comments NA (test code = 134 mmol/L 135-145 L 6650410889) K (test code = 3.3 mmol/L 3.5-5.0 L 6968885906) CL (test code = 103 mmol/L 98-108 8616674080) CO2 TOTAL (test code = 24 mmol/L 23-31 4344927209) AGAP (test code = 2-16 9200049863) BUN (test code = 25 mg/dL 7-23 H 9842375563) GLUCOSE (test code = 144 mg/dL 70-110 H 8065230397) CREATININE (test code = 1.18 mg/dL 0.50-1.04 H 3086964185) CALCIUM (test code = 8.9 mg/dL 8.6-10.6 1990777403) eGFR (test code = mL/min/1.73m2 6685304132) CARL (test code = CARL) Association of [...] tests). Lab Interpretation Abnormal (test code = 25375-8) [facility] COVID [id number] 16:00:45COVID DMT InterpretationInterpretation/Recommendations: Molecular NAAT Tests for [...] COVID-19 testing the patient has had at [facility], including molecular NAAT testing (more commonly known as PCR testing and Rapid ID Now testing) and antibody testing. It does not take into account any testing that a patient has had outside of the [facility] medical record. [facility] LABORATORY SERVICESCOVID Resu [id number] Rapid ID NOW (no units) ? ? Date ? Value ? 03/08/2021 ? Not Detected ? ? ? 02/20/2021 ? Not Detected ? [facility] SERVICESUnSur[facility] POCT GLUCOSE (AUTOMATED)2021-03-11 01:41:12 Test Item Value Reference Range Interpretation Comments POCT GLU (test code = 9253289761) 150 mg/dL 70-110 H Lab Interpretation (test code = Abnormal 56082-1) [facility] GLUCOSE (AUTOMATED)2021-03-10 20:54:33 Test Item Value Reference Range Interpretation Comments POCT GLU (test code = 9019085670) 152 mg/dL 70-110 H Lab Interpretation (test code = Abnormal 20641-3) [facility] GLUCOSE (AUTOMATED)2021-03-10 17:21:37 Test Item Value Reference Range Interpretation Comments POCT GLU (test code = 8654363827) 135 mg/dL 70-110 H Lab Interpretation (test code = Abnormal 61636-6) [facility] PATHOGENS BY [id number] 14:47:37 Test Item Value Reference Range Interpretation Comments Campylobacter (jejuni, Negative Negative, coli and upsaliensis) Indeterminate, (test code = 99174-4) See comment Plesiomonas shigelloides Negative Negative, (test code = 63445-7) Indeterminate, See comment Salmonella (test code = Negative Negative, 12327-8) Indeterminate, See comment Yersinia enterocolitica Negative Negative, (test code = 57993-6) Indeterminate, See comment Vibrio (test code = Negative Negative, 88223-5) Indeterminate, See comment Vibrio cholerae (test Negative Negative, code = 92025-4) Indeterminate, See comment Enteroaggregative E. coli Negative Negative, (EAEC) (test code = Indeterminate, 60094-8) See comment Enteropathogenic E. coli Negative Negative, N/A, (EPEC) (test code = Indeterminate, 75963-8) See comment Enterotoxigenic E. coli Negative Negative, (ETEC) (test code = Indeterminate, 99279-0) See comment Shiga toxin-Producing E. Negative Negative, coli (STEC) (test code = Indeterminate, 99990-0) See comment Shigella/Enteroinvasive Negative Negative, E. coli (EIEC) (test code Indeterminate, = 23278-7) See comment Cryptosporidium (test Negative Negative, code = 38811-0) Indeterminate, See comment Cyclospora cayetanensis Negative Negative, (test code = 60746-7) Indeterminate, See comment Entamoeba histolytica Negative Negative, (test code = 94715-2) Indeterminate, See comment Giardia lamblia (test Negative Negative, code = 61620-0) Indeterminate, See comment Adenovirus F 40/41 (test Negative Negative, code = 69856-3) Indeterminate, See comment Astrovirus (test code = Negative Negative, 48333-8) Indeterminate, See comment Norovirus GI/GII (test Negative Negative, code = 84636-5) Indeterminate, See comment Rotavirus A (test code = Negative Negative, 57731-8) Indeterminate, See comment Sapovirus (test code = Negative Negative, 58153-5) Indeterminate, See comment CARL (test code = CARL) Negative:A negative result does not rule-out infection. ?This assay does not test for all potential infectious agents of diarrheal disease. Positive:A positive test result does not necessarily indicate the presence of viable organism. Lab Interpretation (test Normal code = 80638-6) [facility] [id number] 13:28:07 Test Item Value Reference Range Interpretation Comments URINE CULTURE (test No aerobic growth (< code = 630-4) 1000 CFU/mL) [facility]2021-03-10 13:02:24 Test Item Value Reference Range Interpretation Comments POCT GLU (test code = 5729310824) 91 mg/dL 70-110 Lab Interpretation (test code = Normal 90827-9) [facility] Worth[facility] [id number] 11:08:20 Test Item Value Reference Range Interpretation Comments TROPONIN I (test <0.012 See_Comment [Automated code = 5260197339) message] The system which generated this result [...] ? Lab Interpretation Normal (test code = 74854-8) [facility] Worth[facility]-TERMINAL [id number] 11:05:18 Test Item Value Reference Range Interpretation Comments NT-proBNP (test code 1740 pg/mL See_Comment H [Autom ated = 3849185340) message] The system which generated this result transmitted reference range : <=450. The reference range was not used to interpret this result as normal/abnormal . CARL (test code = CARL) Biotin has been reported to cause a negative bias, interpret results relative to patient's use of biotin. Lab Interpretation Abnormal (test code = 84514-1) [facility] MET[facility]OLIC PANEL (NA, K, CL, CO2, GLUCOSE, BUN, CREATININE, CA)2021-03-10 10:56:38 Test Item Value Reference Range Interpretation Comments NA (test code = 133 mmol/L 135-145 L 9606428696) K (test code = 4.5 mmol/L 3.5-5.0 2996129332) CL (test code = 106 mmol/L 98-108 1143949070) CO2 TOTAL (test code = 23 mmol/L 23-31 0419736911) AGAP (test code = 2-16 6681512460) BUN (test code = 27 mg/dL 7-23 H 7825519490) GLUCOSE (test code = 112 mg/dL 70-110 H 8687130475) CREATININE (test code = 1.11 mg/dL 0.50-1.04 H 8367248113) CALCIUM (test code = 8.5 mg/dL 8.6-10.6 L 1704913456) eGFR (test code = mL/min/1.73m2 7128931774) CARL (test code = CARL) Association of [...] tests). Lab Interpretation Abnormal (test code = 78709-5) [facility] Worth[facility]UM2021-05-23 10:56:38 Test Item Value Reference Range Interpretation Comments MAGNESIUM (test code = 6877958607) 2.0 mg/dL 1.7-2.4 Lab Interpretation (test code = Normal 97788-9) [facility]2021-03-10 01:56:26 Test Item Value Reference Range Interpretation Comments POCT GLU (test code = 5119519847) 229 mg/dL 70-110 H Lab Interpretation (test code = Abnormal 54618-0) [facility] GLUCOSE (AUTOMATED)2021-03-09 22:09:58 Test Item Value Reference Range Interpretation Comments POCT GLU (test code = 9404777809) 141 mg/dL 70-110 H Lab Interpretation (test code = Abnormal 76829-8) [facility] GLUCOSE (AUTOMATED)2021-03-09 18:37:51 Test Item Value Reference Range Interpretation Comments POCT GLU (test code = 9730919453) 229 mg/dL 70-110 H Lab Interpretation (test code = Abnormal 19607-2) [facility] GLUCOSE (AUTOMATED)2021-03-09 13:56:35 Test Item Value Reference Range Interpretation Comments POCT GLU (test code = 6795994660) 181 mg/dL 70-110 H Lab Interpretation (test code = Abnormal 42631-7) [facility] Metabolic Panel (NA, K, CL, CO2, GLUCOSE, BUN, CREATININE, CA)2021-03-09 10:31:38 Test Item Value Reference Range Interpretation Comments NA (test code = 133 mmol/L 135-145 L 7386520563) K (test code = 3.9 mmol/L 3.5-5.0 7065837096) CL (test code = 104 mmol/L 98-108 7260092005) CO2 TOTAL (test code = 20 mmol/L 23-31 L 9706749489) AGAP (test code = 2-16 0451138776) BUN (test code = 24 mg/dL 7-23 H 8398070528) GLUCOSE (test code = 178 mg/dL 70-110 H 9800481502) CREATININE (test code = 1.14 mg/dL 0.50-1.04 H 3012802843) CALCIUM (test code = 9.1 mg/dL 8.6-10.6 6299369792) eGFR (test code = mL/min/1.73m2 4475957694) CARL (test code = CARL) Association of [...] tests). Lab Interpretation Abnormal (test code = 37148-8) [facility] with [id number] 09:24:40 Test Item Value Reference Range Interpretation Comments WBC (test code = See_Comment [Automated 3690-2) message] The sy stem which generated this result transmitted reference range : 4.30 - 11.10 10*3/?L. The reference range was not used to interpret this result as normal/abnormal . RBC (test code = See_Comment L [Automated 589-8) message] The sy stem which generated this [...] (test code = 50.2 fL 39.0-49.9 H 02207-7) RDW-CV (test code = 14.9 % 12.0-15.5 788-0) PLT (test code = See_Comment [Automated 777-3) message] The sy stem which generated this result transmitted reference range : 166 - 358 10*3/ ?L. The reference r cheyanne was not used to interpret this result as normal/abnormal . MPV (test code = 10.1 fL 9.5-12.9 65214-1) NRBC/100 WBC (test See_Comment [Automat ed code = 1040912473) message] The system which generated this result transmitted reference range : 0.0 - 10.0 /100 WBCs. The refer ence range was not u sed to interpret th is result as normal/abnormal . NRBC x10^3 (test code <0.01 See_Comment [Auto mated = 8039704621) message] The s ystem which generated this result transmitted reference range : 10*3/?L. The reference range was not used to interpret this result as normal/abnormal . GRAN MAT (NEUT) % 66.3 % (test code = 770-8) IMM GRAN % (test code 0.40 % = 4709217239) LYMPH % (test code = 28.5 % 736-9) MONO % (test code = 4.6 % 5905-5) EOS % (test code = 0.0 % 713-8) BASO % (test code = 0.2 % 706-2) GRAN MAT x10^3(ANC) 3.61 10*3/uL 1.88-7.09 (test code = 1408319266) IMM GRAN x10^3 (test <0.03 0.00-0.06 code = 3635058403) LYMPH x10^3 (test code 1.55 10*3/uL 1.32-3.29 = 731-0) MONO x10^3 (test code 0.25 10*3/uL 0.33-0.92 L = 742-7) EOS x10^3 (test code = <0.03 0.03-0.39 L 711-2) BASO x10^3 (test code <0.03 0.01-0.07 = 704-7) Lab Interpretation Abnormal (test code = 44896-6) [facility] WorthCLOSTRIDIUM DIFFICILE [id number] 07:37:08 Test Item Value Reference Range Interpretation Comments Clostridioides (Clostridium) Positive Negative A difficile (test code = 11313-6) Lab Interpretation (test code = Abnormal 31869-9) [facility] WorthXR CHEST 1 [id number] 02:33:53No active pulmonary disease. RL: 5611 END [...] normal.IMPRESSIONNo active pulmonary disease.RL: 5611END OF REPORT [facility] WorthD-[id number] 02:08:51 Test Item Value Reference Interpretation Comments Range D-DIMER (test code = See_Comment H [Autom ated 9805785861) message] The system which generated this result [...] diagnosis. Lab Interpretation Abnormal (test code = 81636-6) [facility] WorthURINALYSIS2021-05-21 19:36:24 Test Item Value Reference Range Interpretation Comments APPEARANCE (test code = Clear Clear 4478860976) COLOR (test code = Yellow Yellow 2850833835) PH (test code = 4.8-8.0 6237434234) SP GRAVITY (test code = 1.003-1.030 9412179994) GLU U QUAL (test code = Normal Normal 9490559764) BLOOD (test code = Negative Negative 5398124067) KETONES (test code = 5 mg/dL Negative A 7924901242) PROTEIN (test code = Negative Negative 2887-8) UROBILIN (test code = Normal Normal 8526484279) BILIRUBIN (test code = Negative Negative 7736048947) NITRITE (test code = Negative Negative 8340164962) LEUK NATHAN (test code = Negative Negative 0448072520) RBC/HPF (test code = <1 See_Comment [Autom ated message] 1762182090) The system Hello Agent generated this result transmitted ref erence range: 0 - 3 HP F. The reference range was not used to int erpret this result as normal/abnormal . WBC/HPF (test code = <1 See_Comment [Autom ated message] 2016086409) The system Hello Agent generated this result transmitted ref erence range: 0 - 5 HP F. The reference range was not used to int erpret this result as normal/abnormal . BACTERIA (test code = Negative Negative 6126223404) Lab Interpretation (test Abnormal code = 34498-2) [facility] WorthCOVID-19 (ID NOW RAPID TESTING)2021-03-08 19:25:38 Test Item Value Reference Range Interpretation Comments SARS-CoV-2 Rapid ID NOW Not Detected Not Detected (test code = 84564-6) CARL (test code = CARL) ID NOW COVID-19 Assay is an isothermal nucleic acid amplification test intended for the qualitative detection of nucleic acid from SARS-CoV-2 viral RNA in nasopharyngeal ([employer]) specimens. It is used under Emergency Use [...] indicated. Lab Interpretation Normal (test code = 46754-4) [facility] WorthFREE [id number] 18:26:20 Test Item Value Reference Range Interpretation Comments FREE T4 (test code = See_Comment H [Autom ated message] 1896231080) The system Hello Agent generated this result transmitted ref erence range: 0.78 - 2 .20 ng/dL:. The ref erence range was not u sed to interpret this result as normal/abnor mal. Lab Interpretation (test Abnormal code = 54936-0) [facility] WorthCT ABDOMEN PELVIS W [id number] 18:17:23 1. ?No acute intra-abdominal abnormality. 2. [...] have reviewed this study and agree withtheabove report.[facility] WorthCT CHEST PULMONARY [id number] 18:05:18 No pulmonary emboli. Colonic diverticulosis and [...] pulmonary emboli.Colonic diverticulosis and a small hiatal hernia.[facility] WorthTHYROID STIMULATING [id number] 17:33:13 Test Item Value Reference Range Interpretation Comments TSH (test code = See_Comment [Automated message] 3618042836) The system Hello Agent generated this result transmitted ref erence range: 0.45 - 4 .70 mIU/L. The refe rence range was not u sed to interpret this result as normal/abnor mal. Lab Interpretation (test Normal code = 54975-2) [facility] WorthTROPONIN [id number] 17:14:54 Test Item Value Reference Range Interpretation Comments TROPONIN I (test <0.012 See_Comment [Automated code = 0486412132) message] The system which generated this result [...] ? Lab Interpretation Normal (test code = 06704-8) [facility] WorthN-TERMINAL [id number] 17:11:55 Test Item Value Reference Range Interpretation Comments NT-proBNP (test code 861 pg/mL See_Comment H [Autom ated = 6745525770) message] The system which generated this result transmitted reference range : <=450. The reference range was not used to interpret this result as normal/abnormal . CARL (test code = CARL) Biotin has been reported to cause a negative bias, interpret results relative to patient's use of biotin. Lab Interpretation Abnormal (test code = 99199-4) [facility] WorthCOMP. METABOLIC PANEL (82173)2021-03-08 17:02:50 Test Item Value Reference Range Interpretation Comments NA (test code = 136 mmol/L 135-145 2381589088) K (test code = 3.2 mmol/L 3.5-5.0 L 2293478109) CL (test code = 102 mmol/L 98-108 1539355476) CO2 TOTAL (test code = 24 mmol/L 23-31 5337537648) AGAP (test code = 2-16 9468208241) BUN (test code = 18 mg/dL 7-23 0243388461) GLUCOSE (test code = 80 mg/dL 70-110 1103177978) CREATININE (test code = 1.12 mg/dL 0.50-1.04 H 0665050534) TOTAL BILI (test code = 0.6 mg/dL 0.1-1.3 2247974676) CALCIUM (test code = 8.9 mg/dL 8.6-10.6 2285381221) T PROTEIN (test code = 5.8 g/dL 6.3-8.2 L 1835973947) ALBUMIN (test code = 3.3 g/dL 3.5-5.0 L 7788348356) ALK PHOS (test code = 83 U/L 34-122 4078236215) ALTv (test code = 14 U/L 5-35 2-6) AST(SGOT) (test code = 27 U/L 13-40 0869648535) eGFR (test code = mL/min/1.73m2 9304151245) CARL (test code = CARL) Association of [...] tests). Lab Interpretation Abnormal (test code = 62912-4) [facility] WorthLIPASE, [id number] 17:02:29 Test Item Value Reference Range Interpretation Comments LIPASE (test code = 0971346818) 189 U/L 0-220 Lab Interpretation (test code = Normal 65498-3) [facility] WorthCB WITH [id number] 17:00:16 Test Item Value Reference Range Interpretation [...] (test code = 50.5 fL 39.0-49.9 H 97384-9) RDW-CV (test code = 15.0 % 12.0-15.5 788-0) PLT (test code = See_Comment H [Automated 777-3) message] The sy stem which generated this result transmitted reference range : 166 - 358 10*3/ ?L. The reference r cheyanne was not used to interpret this result as normal/abnormal . MPV (test code = 9.7 fL 9.5-12.9 85921-2) NRBC/100 WBC (test See_Comment [Automat ed code = 6347128890) message] The system which generated this result transmitted reference range : 0.0 - 10.0 /100 WBCs. The refer ence range was not u sed to interpret th is result as normal/abnormal . NRBC x10^3 (test code <0.01 See_Comment [Auto mated = 7615591449) message] The s ystem which generated this result transmitted reference range : 10*3/?L. The reference range was not used to interpret this result as normal/abnormal . GRAN MAT (NEUT) % 24.4 % (test code = 770-8) IMM GRAN % (test code 0.30 % = 5567847767) LYMPH % (test code = 57.6 % 736-9) MONO % (test code = 14.8 % 5905-5) EOS % (test code = 2.0 % 713-8) BASO % (test code = 0.9 % 706-2) GRAN MAT x10^3(ANC) 2.31 10*3/uL 1.88-7.09 (test code = 7624680327) IMM GRAN x10^3 (test 0.03 10*3/uL 0.00-0.06 code = 9071020316) LYMPH x10^3 (test code 5.46 10*3/uL 1.32-3.29 H = 731-0) MONO x10^3 (test code 1.40 10*3/uL 0.33-0.92 H = 742-7) EOS x10^3 (test code = 0.19 10*3/uL 0.03-0.39 711-2) BASO x10^3 (test code 0.09 10*3/uL 0.01-0.07 H = 704-7) Lab Interpretation Abnormal (test code = 52144-5) [facility] WorthaPTT2021-05-21 17:00:11 Test Item Value Reference Range Interpretation Comments APTT Patient (test See_Comment [Automat ed code = 3173-2) message] The system which generated this result transmitted reference range : 23 - 38 Seconds . The reference range was not used to interpr et this result as normal/abnormal . CARL (test code = CARL) The [facility] patient population mean normal value for aPTT is 30 seconds. Lab Interpretation Normal (test code = 08742-8) [facility] WorthPROTHROMBIN TIME / [id number] 16:58:08 Test Item Value Reference Range Interpretation Comments PROTIME PATIENT (test See_Comment [Auto mated message] code = 5964-2) The system [employer] generated this result transmitted ref erence range: 12.0 - 1 4.7 Seconds. The re ference range was not u sed to interpret this result as normal/abnor mal. INR (test code = 6301-6) Nor mal INR <1.1; Warfarin Therap eutic range 2.0 to 3. 0 or 2.5 to 3.5, dep ending upon the indica tions. Lab Interpretation (test Normal code = 38582-2) [facility] WorthPOCT GLUCOSE (AUTOMATED)2021-02-22 17:14:54 Test Item Value Reference Range Interpretation Comments POCT GLU (test code = 3872762171) 228 mg/dL 70-110 H Lab Interpretation (test code = Abnormal 38380-3) [facility] WorthLAB ONLY COVID [id number] 15:07:04COVID DMT InterpretationInterpretation/Recommendations: Molecular NAAT Tests for [...] COVID-19 testing the patient has had at [facility], including molecular NAAT testing (more commonly known as PCR testing and Rapid ID Now testing) and antibody testing. It does not take into accountany testing that a patient has had outside of the [facility] medical record. [facility] LABORATORY SERVICESCOVID JsugmptOMPR-ReQ-6 Rapid ID NOW (no units) ? ? Date ? Value ? 02/20/2021 ? Not Detected ? [facility] LABORATORY SERVICES [facility] WorthPO[facility] GLUCOSE (AUTOMATED)2021-02-22 13:41:36 Test Item Value Reference Range Interpretation Comments POCT GLU (test code = 6999758734) 242 mg/dL 70-110 H Lab Interpretation (test code = Abnormal 46207-0) [facility] WorthURINE [id number] 12:26:08 Test Item Value Reference Range Interpretation Comments URINE CULTURE (test No aerobic growth (< code = 630-4) 1000 CFU/mL) [facility] WorthN-TERMINAL [id number] 10:40:25 Test Item Value Reference Range Interpretation Comments NT-proBNP (test code 1440 pg/mL See_Comment H [Autom ated = 1879847275) message] The system which generated this result transmitted reference range : <=450. The reference range was not used to interpret this result as normal/abnormal . CARL (test code = CARL) Biotin has been reported to cause a negative bias, interpret results relative to patient's use of biotin. Lab Interpretation Abnormal (test code = 65312-6) [facility]. METABOLIC PANEL (19496)2021-02-22 10:34:04 Test Item Value Reference Range Interpretation Comments NA (test code = 132 mmol/L 135-145 L 4665746708) K (test code = 4.7 mmol/L 3.5-5.0 7686317135) CL (test code = 105 mmol/L 98-108 1092650017) CO2 TOTAL (test code = 20 mmol/L 23-31 L 4345600755) AGAP (test code = 2-16 1030651965) BUN (test code = 22 mg/dL 7-23 9885820928) GLUCOSE (test code = 212 mg/dL 70-110 H 9859185513) CREATININE (test code = 1.13 mg/dL 0.50-1.04 H 0817655917) TOTAL BILI (test code = 0.2 mg/dL 0.1-1.8 9827230634) CALCIUM (test code = 7.8 mg/dL 8.6-10.6 L 4238163737) T PROTEIN (test code = 5.1 g/dL 6.3-8.2 L 1375673969) ALBUMIN (test code = 2.8 g/dL 3.5-5.0 L 3840363505) ALK PHOS (test code = 38 U/L 34-122 5078971585) ALTv (test code = 13 U/L 5-35 1742-6) AST(SGOT) (test code = 21 U/L 13-40 2701800402) eGFR (test code = mL/min/1.73m2 2465594398) CARL (test code = CARL) Association of [...] tests). Lab Interpretation Abnormal (test code = 83130-9) [facility] WorthMAGNESIUM2021-05-07 10:34:04 Test Item Value Reference Range Interpretation Comments MAGNESIUM (test code = 6286635672) 1.9 mg/dL 1.7-2.4 Lab Interpretation (test code = Normal 38999-7) [facility] WorthURIC [id number] 10:33:44 Test Item Value Reference Range Interpretation Comments URIC ACID (test code = 2815206925) 3.6 mg/dL 2.9-6.0 Lab Interpretation (test code = Normal 08995-3) [facility] WITH [id number] 10:04:39 Test Item Value Reference Range Interpretation Comments WBC (test code = See_Comment [Automated 1890-2) message] The sy stem which generated this result transmitted reference range : 4.30 - 11.10 10*3/?L. The reference range was not used to interpret this result as normal/abnormal . RBC (test code = See_Comment L [Automated 719-8) message] The sy stem which generated this [...] RDW-SD (test code = 49.0 fL 39.0-49.9 54454-9) RDW-CV (test code = 14.8 % 12.0-15.5 788-0) PLT (test code = See_Comment [Automated 777-3) message] The sy stem which generated this result transmitted reference range : 166 - 358 10*3/ ?L. The reference r cheyanne was not used to interpret this result as normal/abnormal . MPV (test code = 9.8 fL 9.5-12.9 71829-7) NRBC/100 WBC (test See_Comment [Automat ed code = 6162803810) message] The system which generated this result transmitted reference range : 0.0 - 10.0 /100 WBCs. The refer ence range was not u sed to interpret th is result as normal/abnormal . NRBC x10^3 (test code <0.01 See_Comment [Auto mated = 6649281497) message] The s ystem which generated this result transmitted reference range : 10*3/?L. The reference range was not used to interpret this result as normal/abnormal . GRAN MAT (NEUT) % 82.0 % (test code = 770-8) IMM GRAN % (test code 0.80 % = 3616853123) LYMPH % (test code = 10.2 % 736-9) MONO % (test code = 6.8 % 5905-5) EOS % (test code = 0.0 % 713-8) BASO % (test code = 0.2 % 706-2) GRAN MAT x10^3(ANC) 8.25 10*3/uL 1.88-7.09 H (test code = 4010445598) IMM GRAN x10^3 (test 0.08 10*3/uL 0.00-0.06 H code = 9113451951) LYMPH x10^3 (test code 1.03 10*3/uL 1.32-3.29 L = 731-0) MONO x10^3 (test code 0.68 10*3/uL 0.33-0.92 = 742-7) EOS x10^3 (test code = <0.03 0.03-0.39 L 711-2) BASO x10^3 (test code <0.03 0.01-0.07 = 704-7) Lab Interpretation Abnormal (test code = 00006-3) [facility] GLUCOSE (AUTOMATED)2021-02-22 02:20:17 Test Item Value Reference Range Interpretation Comments POCT GLU (test code = 3177432427) 318 mg/dL 70-110 H Lab Interpretation (test code = Abnormal 73396-6) [facility] WorthVITAMIN B12, [id number] 21:50:20 Test Item Value Reference Range Interpretation Comments VIT B12 (test code = 434 pg/mL 240-930 4461175701) CARL (test code = CARL) Biotin has been reported to cause a positive bias, interpret results relative to patient's use of biotin. Lab Interpretation (test Normal code = 59341-8) [facility] GLUCOSE (AUTOMATED)2021-02-21 21:19:53 Test Item Value Reference Range Interpretation Comments POCT GLU (test code = 6578964681) 335 mg/dL 70-110 H Lab Interpretation (test code = Abnormal 82012-2) [facility] WorthLEGIONELLA URINARY ANTIGEN [id number] 19:47:22 Test Item Value Reference Range Interpretation Comments Legionella Urinary Negative Negative Antigen (test code = 7849629833) CARL (test code = CARL) Negative for [...] test. Lab Interpretation (test Normal code = 49229-1) [facility] WorthPROCALCITONIN2021-05-06 16:59:40 Test Item Value Reference Range Interpretation Comments Procalcitonin (test 0.08 ng/mL <0.07 H code = 1015511954) CARL (test code = CARL) INTERPRETATION OF [...] lung abscess/empyema. For further information please refer to:[email or web address] biotics/default.asp Lab Interpretation Abnormal (test code = 41170-1) [facility]ATED[facility]2021-02-21 16:58:53 Test Item Value Reference Range Interpretation Comments POCT GLU (test code = 4269850802) 353 mg/dL 70-110 H Lab Interpretation (test code = Abnormal 05914-4) [facility] WorthVITAMIN D, [id number] 16:35:33 Test Item Value Reference Range Interpretation Comments VIT D 25OH (test code = 27 ng/mL 25-80 75097-6) CARL (test code = CARL) Deficiency: <20 ng/mLInsufficiency : 20-24 ng/mLOptimal: 25-80 ng/mL Lab Interpretation (test Normal code = 34885-3) [facility] WorthOSMOLALITY [id number] 16:00:43 Test Item Value Reference Range Interpretation Comments OSMO U (test code = See_Comment [Automa roxanna message] 9602163878) The system Hello Agent generated this result transmitted ref erence range: 50-1,100 mOsm/kg. The re ference range was not u sed to interpret this result as normal/abnor mal. Lab Interpretation (test Normal code = 70487-1) [facility] WorthOSMOLALITY, SERUM OR [id number] 15:57:18 Test Item Value Reference Range Interpretation Comments OSMOLALITY (test code = See_Comment [Au tomated message] 2303871182) The system Hello Agent generated this result transmitted ref erence range: 278 - 30 5 mOsm/kg. The re ference range was not u sed to interpret this result as normal/abnor mal. Lab Interpretation (test Normal code = 72233-2) [facility] WorthSEDIMENTATION [id number] 14:17:02 Test Item Value Reference Range Interpretation Comments ESR (test code = See_Comment H [Automated message] 5979281388) The system Hello Agent generated this result transmitted ref erence range: 0 - 20 m m/HR. The reference r cheyanne was not used to interpret this result as normal/abnor mal. Lab Interpretation (test Abnormal code = 08879-4) [facility] WorthXR SHOULDER 2+ VW [id number] 13:53:22 Anterior dislocation of the right shoulder. RL: 5611 END OF REPORT Ordering Physician: TYORN REYES Clinical Indication: glenohumeral dislocation Additional Clinical [...] of the right shoulder.RL: 5611END OF REPORT [facility]ATED)2021-02-21 13:09:09 Test Item Value Reference Range Interpretation Comments POCT GLU (test code = 1943328328) 209 mg/dL 70-110 H Lab Interpretation (test code = Abnormal 02855-7) [facility] WorthTROPONIN [id number] 12:13:42 Test Item Value Reference Range Interpretation Comments TROPONIN I (test 0.025 ng/mL See_Comment [Automated code = 9311368328) message] The system which generated this result [...] ? Lab Interpretation Normal (test code = 49321-5) [facility] WorthN-TERMINAL [id number] 12:10:24 Test Item Value Reference Range Interpretation Comments NT-proBNP (test code 1490 pg/mL See_Comment H [Autom ated = 7597589087) message] The system which generated this result transmitted reference range : <=450. The reference range was not used to interpret this result as normal/abnormal . CARL (test code = CARL) Biotin has been reported to cause a negative bias, interpret results relative to patient's use of biotin. Lab Interpretation Abnormal (test code = 51043-5) [facility] WorthCOMP. METABOLIC PANEL (97667)2021-02-21 12:09:43 Test Item Value Reference Range Interpretation Comments NA (test code = 131 mmol/L 135-145 L 6912547116) K (test code = 4.1 mmol/L 3.5-5.0 2562095734) CL (test code = 96 mmol/L 98-108 L 2108963582) CO2 TOTAL (test code = 26 mmol/L 23-31 3603625867) AGAP (test code = 2-16 9480074803) BUN (test code = 19 mg/dL 7-23 7970226537) GLUCOSE (test code = 90 mg/dL 70-110 4060820593) CREATININE (test code = 0.98 mg/dL 0.50-1.04 8916787930) TOTAL BILI (test code = 0.7 mg/dL 0.1-1.0 4937148007) CALCIUM (test code = 7.9 mg/dL 8.6-10.6 L 7028875283) T PROTEIN (test code = 5.4 g/dL 6.3-8.2 L 1226796765) ALBUMIN (test code = 3.0 g/dL 3.5-5.0 L 8749472500) ALK PHOS (test code = 37 U/L 34-122 4113071733) ALTv (test code = 13 U/L 5-35 1742-6) AST(SGOT) (test code = 35 U/L 13-40 9803335412) eGFR (test code = mL/min/1.73m2 0375813100) CARL (test code = CARL) Association of [...] tests). Lab Interpretation Abnormal (test code = 26741-9) [facility] WorthMAGNESIUM2021-05-06 12:05:19 Test Item Value Reference Range Interpretation Comments MAGNESIUM (test code = 0225574577) 1.7 mg/dL 1.7-2.4 Lab Interpretation (test code = Normal 19833-5) [facility] WorthURIC [id number] 12:04:59 Test Item Value Reference Range Interpretation Comments URIC ACID (test code = 8300200229) 4.0 mg/dL 2.9-6.0 Lab Interpretation (test code = Normal 45494-6) [facility] WITH [id number] 11:43:56 Test Item Value Reference Range Interpretation [...] RDW-SD (test code = 47.8 fL 39.0-49.9 75032-3) RDW-CV (test code = 14.8 % 12.0-15.5 788-0) PLT (test code = See_Comment [Automated 777-3) message] The sy stem which generated this result transmitted reference range : 166 - 358 10*3/ ?L. The reference r cheyanne was not used to interpret this result as normal/abnormal . MPV (test code = 10.2 fL 9.5-12.9 51502-0) NRBC/100 WBC (test See_Comment [Automat ed code = 5502200347) message] The system which generated this result transmitted reference range : 0.0 - 10.0 /100 WBCs. The refer ence range was not u sed to interpret th is result as normal/abnormal . NRBC x10^3 (test code <0.01 See_Comment [Auto mated = 7250629293) message] The s ystem which generated this result transmitted reference range : 10*3/?L. The reference range was not used to interpret this result as normal/abnormal . GRAN MAT (NEUT) % 81.3 % (test code = 770-8) IMM GRAN % (test code 0.70 % = 3087207766) LYMPH % (test code = 13.7 % 736-9) MONO % (test code = 3.0 % 5905-5) EOS % (test code = 0.6 % 713-8) BASO % (test code = 0.7 % 706-2) GRAN MAT x10^3(ANC) 4.41 10*3/uL 1.88-7.09 (test code = 5686510196) IMM GRAN x10^3 (test 0.04 10*3/uL 0.00-0.06 code = 4826030372) LYMPH x10^3 (test code 0.74 10*3/uL 1.32-3.29 L = 731-0) MONO x10^3 (test code 0.16 10*3/uL 0.33-0.92 L = 742-7) EOS x10^3 (test code = 0.03 10*3/uL 0.03-0.39 711-2) BASO x10^3 (test code 0.04 10*3/uL 0.01-0.07 = 704-7) Lab Interpretation Abnormal (test code = 20272-6) [facility] WorthCT ABDOMEN PELVIS W [id number] 09:25:19 No defined focal acute inflammatory process. [...] Degenerative changes in the lumbarspine RL: 109AF: 83444 End of report Examination: Computed tomography of [...] appropriate. Degenerative changes in the lumbarspineRL: 109AFC: 41110Baa of report [facility] AmericaCT HEAD WO [id number] 09:17:191. ?No acute intracranial abnormality. RL: 6200 AFC: 30923Bbe of report. ORDERING PHYSICIAN: TYRON REYES CLINICAL [...] clear.IMPRESSION1. No acute intracranial abnormality.RL: 6200 AFC: 51843Cpk of report. [facility] AmericaPOCT GLUCOSE (AUTOMATED)2021-02-21 07:45:22 Test Item Value Reference Range Interpretation Comments POCT GLU (test code = 8026761185) 138 mg/dL 70-110 H Lab Interpretation (test code = Abnormal 59412-1) [facility] WorthTROPONIN [id number] 07:16:11 Test Item Value Reference Range Interpretation Comments TROPONIN I (test 0.031 ng/mL See_Comment [Automated code = 9226053570) message] The system which generated this result [...] ? Lab Interpretation Normal (test code = 87852-6) [facility] WorthIRON [id number] 07:13:30 Test Item Value Reference Range Interpretation Comments IRON (test code = 1796620605) 27 ug/dL 50-160 L TIBC (test code = 2401028233) 224 ug/dL 250-410 L % FE SAT (test code = 5504363631) 12 % 20-50 L Lab Interpretation (test code = Abnormal 51546-7) [facility] WorthPROTHROMBIN TIME / [id number] 06:48:08 Test Item Value Reference Range Interpretation Comments PROTIME PATIENT (test See_Comment [Auto mated message] code = 5964-2) The system [employer] generated this result transmitted ref erence range: 12.0 - 1 4.7 Seconds. The re ference range was not u sed to interpret this result as normal/abnor mal. INR (test code = 6301-6) Nor mal INR <1.1; Warfarin Therap eutic range 2.0 to 3. 0 or 2.5 to 3.5, dep ending upon the indica tions. Lab Interpretation (test Normal code = 44795-0) [facility] WorthFERRITIN [id number] 06:23:04 Test Item Value Reference Range Interpretation Comments FERRITIN (test code = 112.0 ng/mL 11.0-264.0 6119630985) CARL (test code = CARL) Biotin has been reported to cause a negative bias, interpret results relative to patient's use of biotin. Lab Interpretation (test Normal code = 11282-8) [facility] WorthTHYROID STIMULATING [id number] 06:20:07 Test Item Value Reference Range Interpretation Comments TSH (test code = See_Comment [Automated message] 2617488785) The system Hello Agent generated this result transmitted ref erence range: 0.45 - 4 .70 mIU/L. The refe rence range was not u sed to interpret this result as normal/abnor mal. Lab Interpretation (test Normal code = 66924-1) [facility] WorthGLYCOSYLATED HEMOGLOBIN (A1C)2021-02-21 06:16:28 Test Item Value Reference Range Interpretation Comments HGB A1C (test code = 5.5 % 4.0-5.7 4548-4) CARL (test code = CARL) Reference RangesNormal: <5.7%Prediabetes: 5.7 - 6.4%Diabetes: > 6.5% Lab Interpretation (test Normal code = 61962-7) [facility] WorthPROTEIN CREAT RATIO URINE [id number] 05:59:37 Test Item Value Reference Range Interpretation Comments T. PROT U (test code = 2888-6) 17 mg/dL CREAT U (test code = 3933892834) 34.5 mg/dL Protein/Creatinine Ratio Urine 0.0-2.0 (test code = 4970153650) [facility] WorthPHOSPHORUS2021-05-06 05:59:02 Test Item Value Reference Range Interpretation Comments PHOSPHORUS (test code = 1435680917) 4.7 mg/dL 2.5-5.0 Lab Interpretation (test code = Normal 09316-0) [facility] WorthURIC [id number] 05:58:57 Test Item Value Reference Range Interpretation Comments URIC ACID (test code = 7372362052) 3.5 mg/dL 2.9-6.0 Lab Interpretation (test code = Normal 96545-8) [facility] WorthCREATINE [id number] 05:58:47 Test Item Value Reference Range Interpretation Comments CK (test code = 0258421740) 26 U/L 33-194 L Lab Interpretation (test code = Abnormal 56025-8) [facility] WorthMAGNESIUM2021-05-06 05:58:42 Test Item Value Reference Range Interpretation Comments MAGNESIUM (test code = 5794358165) 1.7 mg/dL 1.7-2.4 Lab Interpretation (test code = Normal 51425-1) [facility] WorthPO[facility] GLUCOSE (AUTOMATED)2021-02-21 05:57:21 Test Item Value Reference Range Interpretation Comments POCT GLU (test code = 7654564611) 59 mg/dL 70-110 L Lab Interpretation (test code = Abnormal 01277-9) [facility] WorthSODIUM, URINE [id number] 05:55:36 Test Item Value Reference Range Interpretation Comments NA URINE (test code = 0308685642) 69 mmol/L [facility] WorthLIPID PANEL (67704)(TOTAL CHOLESTEROL, TRIGLYCERIDES, HDL)2021-02-21 05:48:17 Test Item Value Reference Range Interpretation Comments CHOL (test code = 136 mg/dL 120-200 0811102342) HDL (test code = 75 mg/dL >50 2265554681) HDLC RATIO (test code = See_Comment [Au tomated message] 7870447064) The system Hello Agent generated this result transmit roxanna reference range : <=4.5. The refe rence range was not u sed to interpret th is result as normal/abnormal . TRIG (test code = 158 mg/dL 30-170 0209541095) LDL CHOL (test code = 29 mg/dL See_Comment [Auto mated message] 28814-8) The system Hello Agent generated this result transmit roxanna reference range : <=160. The refe rence range was not u sed to interpret th is result as normal/abnormal . VLDL (test code = 32 mg/dL 5-60 6416490914) Lab Interpretation (test Normal code = 45315-3) [facility] WorthXR HUMERUS 2 VW [id number] 00:20:13 1. ?No fracture. 2. Possible glenohumeral [...] an acute wristinjury dedicated wrist films recommended. [facility], Radiant Results Inft User - 02/20/2021 7:21 [...] signedby Rei Poon MD at 02/20/2021 7:20 PMUnSurgery Specialty Hospitals of AmericaXR FOREARM 2 VW [id number] 00:20:13 1. ?No fracture. 2. Possible glenohumeral [...] an acute wristinjury dedicated wrist films recommended. [facility], Radiant Results Inft User - 02/20/2021 7:21 [...] signedby Rei Poon MD at 02/20/2021 7:20 PMUnSurgery [facility]ty Hospitals of America [id number] 22:41:33 Test Item Value Reference Range Interpretation Comments APPEARANCE (test code = Hazy Clear A 4502975476) COLOR (test code = Yellow Yellow 3447645101) PH (test code = 4.8-8.0 6788772202) SP GRAVITY (test code = 1.003-1.030 6959723623) GLU U QUAL (test code = Normal Normal 7443313674) BLOOD (test code = Negative Negative 6112015789) KETONES (test code = 20 mg/dL Negative A 0893889464) PROTEIN (test code = Negative Negative 2887-8) UROBILIN (test code = Normal Normal 7759404323) BILIRUBIN (test code = Negative Negative 4018714235) NITRITE (test code = Negative Negative 5942742427) LEUK NATHAN (test code = 250/uL Negative A 6596339396) RBC/HPF (test code = See_Comment [Autom ated message] 5709301158) The system Hello Agent generated this result transmitted ref erence range: 0 - 3 HP F. The reference range was not used to int erpret this result as normal/abnormal . WBC/HPF (test code = See_Comment H [Autom ated message] 3283859876) The system Hello Agent generated this result transmitted ref erence range: 0 - 5 HP F. The reference range was not used to int erpret this result as normal/abnormal . BACTERIA (test code = Many Negative A 6598173072) MUCOUS (test code = Moderate Negative LPF A 2293056401) Lab Interpretation (test Abnormal code = 83164-8) [facility] WorthCOVID-19 (ID NOW RAPID TESTING)2021-02-20 22:40:01 Test Item Value Reference Range Interpretation Comments SARS-CoV-2 Rapid ID NOW Not Detected Not Detected (test code = 74979-3) CARL (test code = CARL) ID NOW COVID-19 Assay is an isothermal nucleic acid amplification test intended for the qualitative detection of nucleic acid from SARS-CoV-2 viral RNA in nasopharyngeal ([employer]) specimens. It is used under Emergency Use [...] indicated. Lab Interpretation Normal (test code = 53324-7) [facility] WorthSAUD [id number] 21:58:52 Test Item Value Reference Range Interpretation Comments TROPONIN I (test 0.019 ng/mL See_Comment [Automated code = 8206743133) message] The system which generated this result [...] ? Lab Interpretation Normal (test code = 71912-4) [facility] WorthN-TERMINAL [id number] 21:53:51 Test Item Value Reference Range Interpretation Comments NT-proBNP (test code 1840 pg/mL See_Comment H [Autom ated = 7950306179) message] The system which generated this result transmitted reference range : <=450. The reference range was not used to interpret this result as normal/abnormal . CARL (test code = CARL) Biotin has been reported to cause a negative bias, interpret results relative to patient's use of biotin. Lab Interpretation Abnormal (test code = 43817-9) [facility] WorthCOMP. METABOLIC PANEL (29217)2021-02-20 21:50:26 Test Item Value Reference Range Interpretation Comments NA (test code = 129 mmol/L 135-145 L 8497909748) K (test code = 3.4 mmol/L 3.5-5.0 L 7335093999) CL (test code = 94 mmol/L 98-108 L 7204076214) CO2 TOTAL (test code = 24 mmol/L 23-31 8590527523) AGAP (test code = 2-16 9491431765) BUN (test code = 18 mg/dL 7-23 5927775300) GLUCOSE (test code = 62 mg/dL 70-110 L 7096075182) CREATININE (test code = 1.00 mg/dL 0.50-1.04 5125147087) TOTAL BILI (test code = 0.9 mg/dL 0.1-1.0 3500803173) CALCIUM (test code = 8.5 mg/dL 8.6-10.6 L 6243569919) T PROTEIN (test code = 5.8 g/dL 6.3-8.2 L 4665342897) ALBUMIN (test code = 3.4 g/dL 3.5-5.0 L 9443171390) ALK PHOS (test code = 49 U/L 34-122 1411364806) ALTv (test code = 15 U/L 5-35 1742-6) AST(SGOT) (test code = 28 U/L 13-40 7316648260) eGFR (test code = mL/min/1.73m2 3357198235) CARL (test code = CARL) Association of [...] tests). Lab Interpretation Abnormal (test code = 99409-2) [facility] WorthLIPASE2021-05-05 21:50:26 Test Item Value Reference Range Interpretation Comments LIPASE (test code = 2897016242) 86 U/L 0-220 Lab Interpretation (test code = Normal 60645-6) [facility] WorthCB WITH [id number] 21:25:40 Test Item Value Reference Range Interpretation Comments WBC (test code = See_Comment [Automated 5690-2) message] The sy stem which generated this result transmitted reference range : 4.30 - 11.10 10*3/?L. The reference range was not used to interpret this result as normal/abnormal . RBC (test code = See_Comment L [Automated 869-8) message] The sy stem which generated this [...] RDW-SD (test code = 47.0 fL 39.0-49.9 07055-4) RDW-CV (test code = 14.6 % 12.0-15.5 788-0) PLT (test code = See_Comment [Automated 777-3) message] The sy stem which generated this result transmitted reference range : 166 - 358 10*3/ ?L. The reference r cheyanne was not used to interpret this result as normal/abnormal . MPV (test code = 10.1 fL 9.5-12.9 69697-2) NRBC/100 WBC (test See_Comment [Automat ed code = 5248386677) message] The system which generated this result transmitted reference range : 0.0 - 10.0 /100 WBCs. The refer ence range was not u sed to interpret th is result as normal/abnormal . NRBC x10^3 (test code <0.01 See_Comment [Auto mated = 7989207364) message] The s ystem which generated this result transmitted reference range : 10*3/?L. The reference range was not used to interpret this result as normal/abnormal . GRAN MAT (NEUT) % 52.9 % (test code = 770-8) IMM GRAN % (test code 0.60 % = 6338313971) LYMPH % (test code = 35.0 % 736-9) MONO % (test code = 8.3 % 5905-5) EOS % (test code = 2.6 % 713-8) BASO % (test code = 0.6 % 706-2) GRAN MAT x10^3(ANC) 4.32 10*3/uL 1.88-7.09 (test code = 8624628418) IMM GRAN x10^3 (test 0.05 10*3/uL 0.00-0.06 code = 0758791698) LYMPH x10^3 (test code 2.86 10*3/uL 1.32-3.29 = 731-0) MONO x10^3 (test code 0.68 10*3/uL 0.33-0.92 = 742-7) EOS x10^3 (test code = 0.21 10*3/uL 0.03-0.39 711-2) BASO x10^3 (test code 0.05 10*3/uL 0.01-0.07 = 704-7) Lab Interpretation Abnormal (test code = 90311-8) [facility] WorthLactic Acid Whole [id number] 21:20:26 Test Item Value Reference Range Interpretation Comments LACTIC ACID (test code = 2.06 mmol/L 0.50-2.20 2763037739) Lab Interpretation (test code = Normal 73189-1) [facility] WorthXR CHEST 1 [id number] 21:07:40 No acute cardiopulmonary abnormality. Preliminary Report [...] reviewed this study and agree with theabove report.[facility] WorthCytology2021-02-13 14:27:00 Test Item Value Reference Range Interpretation Comments Case Report (test code Medical Cytology = 104) Report Case: [id number] Authorizing Provider: Amor Muller MD Collected: 11/29/2020 02:08 PM Ordering Location: [facility] Endoscopy Received: 11/30/2020 02:52 PM Services Pathologist: Moises Aguilar MD Specimen: Pancreas, pancreas cyst DIAGNOSIS (test code = u3kjkLWzFYYfz8yxRHWzbX 3220) FuZzEwMzNcZnRuYmpcdWMx IHtccnRmMVxlcGljOTIwMF gsldBrDTIzeEOrZ5Erfwal EFiwTV2fGN2ywGywkEZorG DqLRPwTyFgd0ehe162lMKw t9plRPVMylgjoOy6hJskD0 0fj4V5IzbnU13whODtEPca bGFpblxmczIwIFBBTkNSRU KOEESUE2LnBMzGBPLeLKSK KDUoN8aAZ3DGPA0ZFOyzaI BtHTXaPL4cPtbtBWGYY7LC SNNFQYRXQpJCIAwMV05RLd NZXHBhclxmMCAgICAtIFRo ZSBtdWNpbiBzdGFpbiBzaG 25gnV9ZCLcGGNtAIOxg9Um wJCwd1TyxTt4qDC9QETzwp 58WUM8DqLek6A9PKR7CQNp HWXtn4ruXSQsoTAePsGlLb NcZnRuYmpcdWMxXGRlZmYw r5oqi561tGAjw9koPLPgEp X9iIWlPJMssKDaS553BIVg VDqga2isz7YxCCEabWEfs0 V8KPGNuzmugVl7eLwwV12i a3T7LunaW2fmPSBsRGOhD2 XsKF7gRCNaZdk1XOB5DGW2 ILQfQQArI9GfDR9lLXRxvC LsMUr9p3tosBwdIFVgCXP4 b8ruYXaekyYhJX6vux1xfE m2t5jvbbThKNEcRMLhfHLK ZUNmK3MulVozHn4lmAg2wW ghZwuwYAE9Fgh4CR3rjb41 xlq5iNpuCOPtveswWbN9CD orCLOtbvxfRGx3OCikGXJi rMH3QQCjgJGnB6YxPBKlIP 0fhyt9NZS2PYjdVNUiWfB5 NDBcaGVhZGVyeTcyMFxmb2 80OHS9YqGnOW3aW9Fyh9A7 fS4fwSDeMHEieCWpLeMlZH Zrex9qbHSgEBkmz6VtWVN8 gzU2zTDqxNTgMLQyMoM1WD zmJQ2lnw53TPFlRJN0it7y bGNccGdicmRyaGVhZFxwZ2 IcWLUsj123KTIcK9RtACXr s3C7vmKwJmZbPOXgiOB4mz N9MJOoEH1cskdzb7gnBFtr FQheLJEoxlS7xpI2TNJazP ArZ9NsrL0yUCGgLM3shhnz n4wcXUA1BQdmQGOeYTC7Sj LzXCGsn9Yizwa8GhEym8Pj nNHxREqdA18rs870ZCIjsf ImA5atvFMqsmczoBMlntyf TPebrpR8EINcIGlddrziKR AyMRhmS3myXcQwLNThuCzh JWlfw4UxVNZiQEXzNeOsiF McKRCfXyd2EFGssGCpJRCp XhJnX3iiwcnzDrPMOFWpl0 rcO1zkwQXQaZMpC7ElZPbd wzIjYQrdKSmwCXCmWEU4EO 5rFWTsSLBurw02 COMMENT (test code = x8vwlCYeAKXeiRW6RcPmYA 1639) Gmy3hia1HzfJFnjUEoUByp gHBgigVamq58jYZ3xD62YT 0xUASfVaX1UTEatlN3Tse6 JEJuQCMuzKOsL640j8iwp5 smxkZplWK9sMjmIDIaIOEv YWluXGZzMjAgQSBmZXcgcm XyU9NgavGtAPNliXKqBINc rSTcBHqtJNcvU1FhqFIpVE DwAM9woARcTKtzfDzehcNf YTbwdcvdszGjf2W4vKK2iG 6hEJ2rNFKzkDToOTXcgAfu mo9axPFxQNSnbgDprc9gUY FoHQQ7zEIkKHU5H0IjrDDp bGl7aBOihUVpPQQukLruTh BccGFyfQ== CPT Code(s) (test code z0bceHXjPWEaoOZ4ErYpGN = 3357) Umo5ugd0NhtIAlnALvREre bBKxsjYmhn71aKT8oX07WI 5bJECyWwC8QQKvslK7Gfu7 LQBnYBMagENaT929t8knb5 dazvFctZL3dCrpPNMhCPIw YWluXGZzMjAgODgxMDgsID q5VpEfJMLmwh4= CLINICAL DATA (test a1tcjBIvDVVmbKM2NiGfWD code = 3355) Dxj0neh1NfoOWqpTAoPSqg bHNzmfUmxs77iGX1sU49JH 7pMCMcOvR4DYOguiF6Lqh6 ESBsIGZdsFJaT592a2koq9 dnfaYexVV7vWvyFYJiRJOy PGsnRPSsNaZqOi46KKWySV kwPF57HBZoSNHoKYDkt4ks AYcyo2jkdzHczFzmDOE0zH GdLT4nVOP4p9WbhMTerdXj DuiwTLQibhY4dXBosPBuL7 JlYXRpYyBoZWFkXHBhcn0= SPECIMEN SOURCE (test e4sguAOcINIspZH7FqRkHF code = 3377) Cvj2svj6CxhFSkiJAkVYnh mOGqkpGkgt04aXV7tR86BJ 8dFBTmEoK9MZIwszD6Kvv7 TNPnKNUppNHnI375l7ubv4 ufkwKpyDB8cFlxVDFbMHYq YAohFLTrMwZlQSKMZ3DZMY TaV2qVQHeePXHXPHkpDb3Q XHBhcn0= GROSS DESCRIPTION (test m2xkjWWtWHGneFL3VzExVG code = 3366) Fks6krt5YwwQNkfTRcAByh pTKazsEwez44qAW7qN28PH 4eOWUyVlP8KMIgmvC3Egl0 HTGuFRBawOZdK183z1whk3 esthMlaGM7fFirKMRmGIKe PWhqKTGzOcEqHmIkXQe8MI GyEEzclWtnA8q3d5JpI5qa yxCtVBOmmOM4mWUkQBCpqR BsZTsgcHJlcGFyZWQgNCBj qMTqi8McwgMoMT2hGQWntI ZwjL1wS7q1c9XcuY0jaRBe fQ== MICROSCOPIC DESCRIPTION w6natNPcDYDnnUH0XrMuHJ (test code = 3371) Fwd2tfg5BmuZVxfXAuYZrb pTIpsyYqqs73wHK3rB92OK 3bLJVeCsG8ZCYuvuP5Vci8 PRFjRYQalBCsB652z4klp8 riqkIcrCP2aUlvPJUpFJDo SNydHQLbVwYfBNExCj8weD VkLiBccGFyfQ== SPECIAL STUDIES (test l3pwsJWeCLKdwQD4DyZhFV code = 3376) Aad2xsb3EhbLNoqTIiHXxt jPCoboRucq31nPC6lG79ZX 0rRRSdRtO0DNUvhuA0Wuq3 ZFVnNEJoeECxP638AGAvTY NcbPankrz2kK02QABsjW6h iIHnLEt3MJFsqyPfyIrolV 2mEtShKkZaUfTFuFWfdN91 GCHnxrX1ZJOvc66qr1VpuL qndnDfCEVzZMhyL4f3GRGg RZWkUUA8k6Zhr2PduV0ugH 2zkCoraL3prFKjaIM9fvcu e5Uio4RsJ3zdvOKllWIjlu MuXHBhciBNdWNpbiBccGFy OBSevzNih3dmM3cyDYCaXA K6BE9kgpOnUkDvXB4vqM56 h4Gry17af72shB9cbUSknr MgT13piSEuzWApw8EcYDBs soYvhSX9AHTmTGhbnside5 h5uPP1xCCymAVbeKN1fLRe jMOeRKGKkJOwDTTlx569is 1eOQPyuTXielClyA7jTFwd dgjruRQfXU2tZEJgBCImSH QfSX44ghNpEK9elWVzl7qx daZpkZHky5IkeNS9YUEozT ZfpwhlDg7fNJ75NIJoYEyr cT8sxPVyyhAaEK6oLA3gD3 K0qUAsWCGlqvCgh0cgLTtx IR2lHADdwSstDskpLQAqJL ZhluKsmAU3MVVjyXTcPGAd jNUnDGsymNCht1awm1RqC7 bzyFqljNK6BJDzJ2vpjBDi lMP9WKS6gL7qFMindfHlRM Sso2KaKMSoDHPeSvS4iB4n OYF0KqYYyEytQME2CkK1AV ipYLSfGG2gCEauGNqtL1Gm eEWqCIKOMIBle9xsC8qnNN Nxp1NknF3zmYU1yQNuILWy vQT7AVPzOPT8WVjbrTOnBP RsFYAmpEVbhIEpNe7ikGMv P0MqJ3kiflLqtRJfkCE7mJ EwMJuirrCoRIP9NSOyjC6x YA2fGDIliKKbKF3vtIQbKM KuCFRxJZVpARTos5DgIEIv oj29VWKcJoxlmMmxRBQjSf 4vJb9fQPOtmmCgFPK8YoIJ UH4tzxedzQOljSbcxm2eMX kwIBSBKXSuTHWhBZB7JJYl fF0yTYV8uBG0UEO1P5cgF4 ozQMRpycSgTN5fRIVbdYIh biLzITrsFZ5wtZKbYRXky0 GkxivdXKEnOHF9EBC2LIlc GVXxQZNeYm0pWVEjbB6uO2 MuHLP7lpAbt2LpAoFDkFUo uD54kLDaho21QCGbDYLrV0 FyZGVkIGFzIGludmVzdGln VRKfl87ajALrxnUdk2Agys QoMEYgH6kaSBRvoLFacXOl m5HpmJ4uxUAtkyUjLAH0qJ RqSWXpnC5lZXHwwIsvASTa rN3nS3TfSYcdVz3lPZOhmf xqDP7kbq90XF2ldgFyXC6n qdOtQL84alMmXiGnLHf8DM cWQFeIHGg0TFQxbaQmqJSv tXRvZCIhkT7rcEWwJn7fxG BoaWdoIGNvbXBsZXhpdHkg S3cxqrstBLfggJMep2MfcG 9njWZ8FBH0lM7hSceuZGE0 Gross assessment was [facility] performed at ([facility], = 2777) Department of Pathology, [address] [place] [address], Technical component was [facility] performed at ([facility], = 2778) Department of Pathology, [address] [place] [address], Professional component [facility] was performed at ([facility], code = 2779) Department of Pathology, [address] [place] [address], [facility]00 Test Item Value Reference Range Interpretation Comments Case Report (test code Medical Cytology = 104) Report Case: [id number] Authorizing Provider: Amor Muller MD Collected: 11/29/2020 02:08 PM Ordering Location: [facility] Endoscopy Received: 11/30/2020 02:52 PM Services Pathologist: Moises Aguilar MD Specimen: Pancreas, pancreas cyst DIAGNOSIS (test code = [id number] 3220) FuZzEwMzNcZnRuYmpcdWMx IHtccnRmMVxlcGljOTIwMF pfpeAdVQWjvDZaA0Tyvjzz SOtmOE5iJG6fvDzwiNOzeS QxPDUcTrWll9bkr632dXTr t0eaDKMMnaklpWf2ePlrP1 2su4C6YpgaL77lwOYsRYqc bGFpblxmczIwIFBBTkNSRU PLQXIDF3SkKBuZQBJjQULT ICWaS2wDX8DWNM3GIAoioL UjAWNtAT4kTushWLMOM3GA LZQTHJXGPvFUCXrQC07SSz NZXHBhclxmMCAgICAtIFRo ZSBtdWNpbiBzdGFpbiBzaG 53efS9BLVxWYCdYCJim8Wb oQYjj2WhzZc1tHM6GFTswz 61UPR8OnGhs5I9KJC7AFTt CYVrc4mkCJZjeOLrQsZxTp NcZnRuYmpcdWMxXGRlZmYw p6kxq393mLXsc4hrKFGiEy N0bXPxKVNhySGcE830NNPe XIhmt3hwn8LaHYBvtZWeq5 U0XETProtlvRx5iNmwY31n c3D4XyntH5tuCAFrMSNpL4 UpEH0rOHIaDxq5XKM1KXY9 BRWvDGDoT4FjDN6fSNSzuB EpMXl5g9tpqPonDGHiQNZ0 r4prTRxdwtVbBV4mus4gsH n8j4vyepAsIZYkHZBliPBC NSClM5KpkNqxPs1ahNs7pS mmJnabOIM4Wsj7CN6rjw27 rvw3gCxaAHBulznhFgW8YZ ekFTExezxwSNe5ILklFSAq rRE4QODbrFBeJ1JpCNGvVV 6efnq2CGV7HWnwCJMlUxT4 NDBcaGVhZGVyeTcyMFxmb2 62BMJ4XvCnAO2qC0Bjb5M6 nO5rjDZcGZMloURuMnAuKF Ernq4edEKnHEnei7PaZLC9 cxO6aUAlbGNfYIPiSuP1TE mvAV5rbx64EEQaGWN1bn3p bGNccGdicmRyaGVhZFxwZ2 OiZMVzj265JUVjV7BxAMMz z9Q9ryYfXuRpMZMviXU8fu S4PFCyNM8femvqw3qzKCiu CQkvZRYlbrK7iwQ5EWUmdJ HwX5VsnD9xSWDtLM4vycat w7pfLDS0NGbpHGXeCFM2Tp GjUCIpp3Cozxh2CpAdn2Fq hIZgVXleN27dg013RIYncr DpC6lgxYSsxnadpFGnoxgl GJjjzoD2LUTaDGbrxgsqST FpRMxaL6ehFiFpHZPnrQsk DKztj3WeBZPcLZDvEhTrqA EoERTcGva0DAKgsDUyNRVv AcNuB5rjrgfgRhAJPZPvi7 uaZ4bspRKEsXZrB6OnMBcf bqHhNLdjWOnpUITsYED2ID 4fRBRdKUVwjh23 COMMENT (test code = v3xgeFNbXPTwgTC3WcUrQP 5124) Hau9qgm4VqoZKcsFZgFPre sENahpPkqy53fGB6vQ60KY 3hYFFbYwI0TEXcthI8Ota0 CYTxBEObjHRbY296o1xdy1 yogvCyfOY0xMucRIAzLIBl YWluXGZzMjAgQSBmZXcgcm VcT9UvhmEtQUFlmRVyAWSs oDJwCEnoAVsdH1RifCPrGG HrWW2mtYKbHTegfUiijvKw YXxvzhpvpjQwq8J3gGY9fT 7oPK8mENSmqGFaYKFhaBzf ja3iwZMcMWYlfwXvkc3lAK XyLSF5yBZtJFL2G8KzmPEb tGf8qSUmkQCtLTNkjGjeUe BccGFyfQ== CPT Code(s) (test code k6oacPPxJFYimKO0TzMuRF = 3357) Drk5gul3StfTHfhTBkAYwl pKYjwhDlhn66uBX4rL09ZX 6aWWZcKsH8GSEmuwA5Uwq3 DGClFWFmpLBjF719n7xyt4 apgzVqfPV4rJyhMPBhVSRo YWluXGZzMjAgODgxMDgsID i8NoBwSCNeeh9= CLINICAL DATA (test t7ddiMQbMHCwpTI2BcZwCK code = 3355) Uwn2gub8UzdAEbcRCyIJov zPQxcrKxzo20yGL2oQ63FM 1yRAOcAfU8YIHwzuE9Mmw7 ZZLdKXPtjCJcG628t6nrh4 toouEonDS9yHurQHSoSPXh AOfgUCLsPvQcEp03YXSnTU qeFJ18EFWrLMGyXXFze7rn QJrvl1sauvWnxYehSJY5bM CjKJ9jOMZ0a4GvhRTqgqDg EdnbUWWgqwJ9kMOriZBjG8 JlYXRpYyBoZWFkXHBhcn0= SPECIMEN SOURCE (test m4zvfTRzWZQryVH7ZiQvOD code = 3377) Hvo0hrp9IagFEfaHSdPQuk aQGujiRbme29cTC1bD43IO 9iSNAyNbQ6NUVaqaA0Opq9 TBTgQQMqjKErD211h0lww7 bvuvVnjUF1lHibCCWlQCNz KCxvXIToOlJlNGUIL0MBDD NzO6gXTSunJFAXAPgyEs1V XHBhcn0= GROSS DESCRIPTION (test t6wvlHDrMZGdvHH9LqHcAI code = 3366) Kje2ape2FccKOggNGoOYky rKYvgvYsil17aUP0sB47GE 3iSEYmDoW0OPOjwuR3Fal9 VBSmKDCenZMwS641r1mxa5 flgiHmmOQ2tFecCOAzEGGj OBzsATEeSgTlXfLkWZx8VZ XcWBbwvSeqE0j3i8HjJ0ez dqWzYDUooEL0zSDmGDBtfJ BsZTsgcHJlcGFyZWQgNCBj lXMkx4DvakLbSF4fMFGwaT CxtQ0cK1j4t4LofG2pzKLd fQ== MICROSCOPIC DESCRIPTION o3fruNTiJEBxlBM8PkEdRF (test code = 3371) Zrn7vrx6TjrELhqSIyOMjp hCXbdvXfyt75bZO2sH20UM 8oZTDsZmQ3TSXazpR4Ghd9 GRMuUOEkgYBmP980v2fsz1 ogwjWtsZQ8nWizMOFdXFSt EScrLSEkPaNsLBQxLj1xaU VkLiBccGFyfQ== SPECIAL STUDIES (test s7ajrETjGXJqqKA2FkIcEJ code = 3376) Qoy8jym7ZhkJBzoZJzAZxs vFReldRtmz89vUK0oG17EF 5yADDdKbF8ZUBxxjA4Iyx3 PANtFZTjdOFfL663QELbKL DriXszqvh2kI58SDEehZ9l zGAtEGt8PIXprtRutTqaaL 0eZbUeOhLgHpWTyIOutL54 FEBuerK0WJHow19yg8AouW akgcOgQSPhTFfcG5h3LKTa JJZvJQO2u6Tmp4LsxF7orJ 0feCdmpC3qfVPifOB9lzwm u1Add8YaS9pmoODmjQVdwv MuXHBhciBNdWNpbiBccGFy THBryuQmh4oyT2gkCGAnHY O1AF3agmJdXjWhFO1fbN48 i7Xkt29jj97ckD5tuEShfv QzW72vyIZhrBPkr0McFJFq peBwbKN0OJThEIhziovpa7 t0mWA7zOXohPDrnIL7lIIo dKKiEWAXfYIqFCAar539nh 8bZENleOVnysNjeD2wNSnb umoonCOkBS2eTWOnHXSfPL VaQL46kqFpJJ5xnUSfp1hr mzVpeMZae7TahFY5KDBeoV XeqlveOb3kSD15XVWyBIuu aI5feULwcbRrJN2bKK0jR7 J8tUKdCUZtawLep9neQZlr IB9gCOTtvXzxUzewNVObZK EfliMisKT5XWIosRIkFLMb zMKwUCnbmYPzv5ict6XhA1 vjhZmxwSR2HYDlK7vrxFBr vFH9NHM9wI5bQEbedoVwQD Dug8QmNKFgNRWjSbB0tY8x PPM5UfPOtHzvFEZ7JoA5US snLUVtDQ7hCWjjDTbvK4Bf cLHbKXQDORUuq4rsM1ydYK Xas8NpvN1giOH8tKTfABEs fOZ6KZOoBOU0AMmtaPCuQK DbHAUbpLEdaPUfPa3khLXs O5GkW9febbIxkLUywYG6lE ZrBTnwtrFiKXC9LMVfmO1r XW1iQDFolWQpYV1maSDbOI WcXHMbFMHnIYKwe4HyUKGu xa09AAPcLctuoWxfOSGmCy 1lAh8yTCRiahJmRNY7VeTR GQ7smeutaJIewMjybv3sDD zyASIQRCEcCPVgFCZ7CYVp qQ0cYGL3oAH9KEF1P6zbK9 rzOKAvueBaIE8kPCSzoPJo kuSqQVdiED8nmFVwCJPye3 KfjynuXWVnSGD9OPI9MRtx UOQzIMHrBu7wRYLgyX5rX6 OlVOR8uuMvq0UyHdPUoMRg oL18jGTwli17AKCcRSSyQ1 FyZGVkIGFzIGludmVzdGln TETym54piJGvpvHeg2Cnqv SwSCDoV0ohSARbrHFynNAp q1VrsW7rwGWtzkKiXBD3zY XiQQEkyJ8lVXNabYiiCYBd rF5oC0RjGOsmTu8dAGOhzj zoJG8bls19PS6rwvTeYQ6b quYyUG94msOnSqFvXLk0JJ hPHAzDGNk9VAHxjoMfgJNd rMEbQKVhgY0shNMzIp1niM BoaWdoIGNvbXBsZXhpdHkg I4ryhmspZTqmmIVlh3QlsH 5jzDU0WFD5aR8rWbafKTS7 Gross assessment was [facility] performed at ([facility], = 2777) Department of Pathology, [address] [place] [address] 15775, Technical component was [facility] performed at ([facility], = 2778) Department of Pathology, [address] [place] [address] 11862, Professional component [facility] was performed at ([facility], code = 2779) Department of Pathology, [address] [place] [address], [facility] 14:27:00Medical Cytology Report Case: [id number] Aut horizing Provider: Amor Muller MD Collected: 11/29/2020 02:08 PM Ordering Location: [facility] Endoscopy Received: 11/30/2020 02:52 PM Services Pathologist: Moises Aguilar MD Specimen: Pancreas, pancreas cyst PANCREAS CYST, HEAD,FNA (CYTOSPINS): - NEGATIVE FOR MALIGNANCY - The mucin stain shows weak and focal positivity Signing Pathologist Direct Phone Line: [phone] signed by Moises Aguilar MD on 12/01/2020 at 2:27 PMA few reactive ductal epithelial cells are noted within a larger population of completely normal and non- reactive ductal epithelial cells. 84059, 236822.5 cm x 1.8 cm anechoic lesion suggestive [...] evaluated Immunohistochemistry technical testing was performed at [facility], Pathology Laboratory where it was [...] qualified to perform high complexity clinical laboratory testing.[facility], Department of Pathology, [address] [place] [address], [facility], [address] [place] [address], [facility], [address] [place] [address] 24950, XPNCZFJJ [id number] 16:01:00 Test Item Value Reference Range Interpretation Comments Cytology (test code = See Separate Report 2629) [facility] [id number] 16:01:00 Test Item Value Reference Range Interpretation Comments Cytology (test code = See Separate Report 2629) [facility] [id number] 16:01:00 Test Item Value Reference Range Interpretation Comments CYTOLOGY RESULT POINTER See Separate Report (BEAKER) (test code = 2629) POC-Glucose [id number] 11:57:00 Test Item Value Reference Range Interpretation Comments POC-Glucose Meter (test 73 mg/dL 70-110 : TE STED AT [facility] code = 1538) 20 [facility], 770 30: Field Representatives Director/Techni robbie ID = [id number] for DHRUV, MARGARE T Lab Interpretation (test Normal code = 05630-7) [facility] [id number] 11:57:00 Test Item Value Reference Range Interpretation Comments POC-Glucose Meter (test 73 mg/dL 70-110 : TE STED AT [facility] code = 1538) 67[address] [facility], 770 30: Field Representatives Director/Techni robbie ID = [id number] for DHRUV, MARGARE T Lab Interpretation (test Normal code = 88108-4) [facility] [id number] 11:57:00 Test Item Value Reference Range Interpretation Comments POC-GLUCOSE METER 73 mg/dL 70-110 : TESTED A T [facility] 6720 (BEAKER) (test code = [facility], 1538) 16780: Field Representatives Director/Techni robbie ID = [id number] for RAZS ONHEIDIT
--- NOTE | 2022-03-21 20:25 | ER ---
Nurse's Notes [facility] Name: Caridad Chadwick Age: 86 yrs Sex: Female : 1935 Arrival Date: 03/21/2022 Time: 19:49 Bed 13 Private MD: Diagnosis: Repeated falls;Dehydration Presentation: 03/21 20:02 Chief complaint: EMS states: "Pt called stating she felt like she was going to pass vc1 out. She has only been taking Tylenol for pain. She was complaining of being nauseous and dizzy.". Coronavirus screen: Vaccine status: Patient reports receiving the 2nd dose of the covid vaccine. Moderna At this time, the client does not indicate any symptoms associated with coronavirus-19. Ebola Screen: No symptoms or risks identified at this time. Initial Sepsis Screen: Does the patient meet any 2 criteria? No. Patient's initial sepsis screen is negative. Does the patient have a suspected source of infection? No. Patient's initial sepsis screen is negative. Risk Assessment: Do you want to hurt yourself or someone else? Patient reports no desire to harm self or others. Onset of symptoms was March 20, 2022. 20:02 Method Of Arrival: EMS: [facility] vc1 20:02 Acuity: ZOIE 3 vc1 Triage Assessment: 20:05 General: Appears uncomfortable, Behavior is crying. Pain: Complains of pain in back vc1 Pain does not radiate. Pain currently is 0 out of 10 on a pain scale. at worst was 10 out of 10 on a pain scale. Quality of pain is described as sharp, stabbing, Alleviated by repositioning, Aggravated by weight bearing, Sitting. Musculoskeletal: Circulation, motion, and sensation intact. Range of motion: intact in all extremities, Reports weakness in right leg and left leg. Historical: - Allergies: 20:05 codeine sulfate; vc1 - PMHx: 20:05 C DIFF; Hypertension; Hypothyroidism; Rheumatoid Arthritis; Diverticulitis; Diabetes - vc1 NIDDM; Cyst on pancreas; GERD; - Immunization history:: Adult Immunizations up to date, Client reports receiving the 2nd dose of the Covid vaccine. - Social history:: Smoking status: Patient denies any tobacco usage or history of. Screenin:07 Abuse screen: Denies threats or abuse. Nutritional screening: No deficits noted. vc1 Tuberculosis screening: No symptoms or risk factors identified. Fall Risk None identified. Assessment: 20:30 General: Appears uncomfortable, Behavior is drowsy, inappropriate for age. Pain: vc1 Complains of pain in back Pain radiates to left leg and right leg Pain currently is 10 out of 10 on a pain scale. Neuro: Level of Consciousness is awake, alert, obeys commands, Oriented to person, place, time, situation, Appropriate for age. Cardiovascular: No deficits noted. Respiratory: Airway is patent Respiratory effort is even, unlabored, Respiratory pattern is regular, symmetrical. GI: No deficits noted. GI:. GI: Reports nausea. : No deficits noted. 22:00 Reassessment: Patient and/or family updated on plan of care and expected duration. Pain vc1 level reassessed. Patient states symptoms have not improved. 23:00 Reassessment: Patient and/or family updated on plan of care and expected duration. Pain vc1 level reassessed. Patient states symptoms have not improved. 23:30 Reassessment: Patient and/or family updated on plan of care and expected duration. Pain vc1 level reassessed. Patient states symptoms have not improved. Pain: Complains of pain in back Pain radiates to right leg and left leg Pain currently is 5 out of 10 on a pain scale. Vital Signs: 20:02 BP 141 / 57; Pulse 80; Resp 18; Temp 98.4(O); Pulse Ox 95% ; Weight 66.22 kg; Height 5 vc1 ft. 1 in. (154.94 cm); Pain 0/10; 21:00 BP 118 / 60; Pulse 84; Resp 18; Pulse Ox 94% on R/A; vc1 23:00 BP 123 / 80; Pulse 87; Resp 18; Pulse Ox 94% ; vc1 20:02 Body Mass Index 27.59 (66.22 kg, 154.94 cm) vc1 ED Course: 19:49 Patient arrived in ED. wm 19:49 Mellissa Campbell, SHARLENE is Primary Nurse. vc1 20:02 Pablito Laura DO is Attending Physician. ms3 20:02 Taran Whitt PA is PHCP. ms3 20:05 Triage completed. vc1 20:05 Arm band placed on right wrist. vc1 20:07 Patient has correct armband on for positive identification. Pulse ox on. NIBP on. vc1 20:24 Henry Abernathy MD is Hospitalizing Provider. m 20:50 XRAY Chest (1 view) In Process Unspecified. EDMS 23:50 No provider procedures requiring assistance completed. Patient admitted, IV remains in vc1 place. Administered Medications: 21:23 CANCELLED (Patient Refused): predniSONE 20 mg PO once vc1 21:23 Drug: SOLU-Medrol (methylPrednisoLONE) 40 mg Route: IVP; Site: left forearm; vc1 21:24 Drug: morphine 4 mg Route: IVP; Infused Over: 4 mins; Site: left forearm; vc1 21:24 Drug: Zofran (Ondansetron) 4 mg Route: IVP; Site: left forearm; vc1 Medication: 23:50 VIS not applicable for this client. vc1 Outcome: 20:25 Decision to Hospitalize by Provider. [facility] 23:50 Admitted to Med/surg accompanied by tech, via stretcher. vc1 23:50 Condition: good 23:50 Instructed on the need for admit. 03/22 00:00 Patient left the ED. vc1 Signatures: Dispatcher [employer] EDMS Taran Whitt PA PA jmm Sims, Marcus, DO DO ms3 Yudelka Valle Vanessa, RN RN vc1
--- NOTE | 2022-03-21 20:26 | EDPHYS ---
Physician Documentation [facility] Name: Caridad Chadwick Age: 86 yrs Sex: Female : 1935 Arrival Date: 03/21/2022 Time: 19:49 Bed 13 Private MD: ED Physician Pablito Laura HPI: 03/21 20:03 This 86 yrs old Female presents to ER via EMS with complaints of Back Pain. m 20:03 The patient presents with pain that is acute. The symptoms are located in the coccyx [facility] area. Is an 86-year-old female with history of hypertension, hypothyroidism, RA the presents emerged department with complaints of lower back pain, fatigue, near syncope. States having multiple falls over the past 2 days. Patient was evaluated yesterday and declined admission for further evaluation. . Historical: - Allergies: 20:05 codeine sulfate; vc1 - PMHx: 20:05 C DIFF; Hypertension; Hypothyroidism; Rheumatoid Arthritis; Diverticulitis; Diabetes - vc1 NIDDM; Cyst on pancreas; GERD; - Immunization history:: Adult Immunizations up to date, Client reports receiving the 2nd dose of the Covid vaccine. - Social history:: Smoking status: Patient denies any tobacco usage or history of. ROS: 20:03 Constitutional: Negative for fever, chills, and weight loss, Cardiovascular: Negative jm for chest pain, palpitations, and edema, Respiratory: Negative for shortness of breath, cough, wheezing, and pleuritic chest pain. 20:03 Abdomen/GI: Negative for abdominal pain, nausea, vomiting, diarrhea, and constipation, Back: Negative for injury and pain. 20:03 Back: Positive for pain with movement. 20:03 MS/extremity: Positive for pain. 20:03 Neuro: Positive for dizziness, near syncope, weakness. 20:03 All other systems are negative. Exam: 20:03 Head/Face: atraumatic. Eyes: EOMI, no conjunctival erythema appreciated ENT: Moist jm Mucus Membranes Neck: Trachea midline, Supple Chest/axilla: Normal chest wall appearance and motion. Cardiovascular: Regular rate and rhythm. No edema appreciated Respiratory: Normal respirations, no respiratory distress appreciated Abdomen/GI: Non distended, soft 20:03 Constitutional: The patient appears alert, awake, anxious, uncomfortable. 20:03 Back: pain, that is mild, of the sacrum. 20:03 Musculoskeletal/extremity: ROM: intact in all extremities. 20:03 Neuro: Orientation: is normal, Mentation: is normal, Memory: is normal. 20:03 Psych: Behavior/mood is pleasant, cooperative, anxious. Vital Signs: 20:02 BP 141 / 57; Pulse 80; Resp 18; Temp 98.4(O); Pulse Ox 95% ; Weight 66.22 kg; Height 5 vc1 ft. 1 in. (154.94 cm); Pain 0/10; 21:00 BP 118 / 60; Pulse 84; Resp 18; Pulse Ox 94% on R/A; vc1 23:00 BP 123 / 80; Pulse 87; Resp 18; Pulse Ox 94% ; vc1 20:02 Body Mass Index 27.59 (66.22 kg, 154.94 cm) vc1 MDM: 20:03 Patient medically screened. ms3 20:19 Data reviewed: vital signs, nurses notes. Counseling: I had a detailed discussion with qi the patient and/or guardian regarding: the historical points, exam findings, and any diagnostic results supporting the discharge/admit diagnosis, the need for further work-up and treatment in the hospital. ED course: I discussed the patient with Dr. Abernathy whom accepted the patient for admission. . 03/21 20:08 Order name: Basic Metabolic Panel; Complete Time: 21:52 [facility] 03/21 20:08 Order name: CBC with Diff; Complete Time: 21:43 [facility] 03/21 20:08 Order name: LFT's; Complete Time: 21:52 [facility] 03/21 20:08 Order name: Magnesium; Complete Time: 21:52 [facility] 03/21 20:08 Order name: NT PRO-BNP; Complete Time: 21:52 [facility] 03/21 20:08 Order name: PT-INR; Complete Time: 21:43 [facility] 03/21 20:08 Order name: Troponin HS; Complete Time: 21:52 [facility] 03/21 20:58 Order name: COVID-19 SARS RT PCR (Document "Date of Onset" if Symptomatic) 03/21 21:59 Order name: Basic Metabolic Panel [facility] 03/21 21:59 Order name: Basic Metabolic Panel [facility] 03/21 21:59 Order name: CBC with Automated Diff [facility] 03/21 21:59 Order name: CBC with Automated Diff [facility] 03/21 21:59 Order name: Lipase [facility] 03/21 20:08 Order name: XRAY Chest (1 view); Complete Time: 20:55 [facility] 03/21 20:08 Order name: EKG; Complete Time: 20:09 [facility] 03/21 20:08 Order name: Cardiac monitoring; Complete Time: 21:24 [facility] 03/21 20:08 Order name: EKG - Nurse/Tech; Complete Time: 21:24 [facility] 03/21 20:08 Order name: IV Saline Lock; Complete Time: 21:24 [facility] 03/21 20:08 Order name: Labs collected and sent; Complete Time: 21:24 [facility] 03/21 20:08 Order name: O2 Per Protocol; Complete Time: 21:24 [facility] 03/21 20:08 Order name: O2 Sat Monitoring; Complete Time: 21:24 [facility] 03/21 21:59 Order name: NPO [facility] 03/21 21:59 Order name: Lipase [facility] 03/21 21:59 Order name: Liver (Hepatic) Function [facility] 03/21 21:59 Order name: Liver (Hepatic) Function EDMS Administered Medications: 21:23 CANCELLED (Patient Refused): predniSONE 20 mg PO once vc1 21:23 Drug: SOLU-Medrol (methylPrednisoLONE) 40 mg Route: IVP; Site: left forearm; vc1 21:24 Drug: morphine 4 mg Route: IVP; Infused Over: 4 mins; Site: left forearm; vc1 21:24 Drug: Zofran (Ondansetron) 4 mg Route: IVP; Site: left forearm; vc1 Disposition: 03/22 05:50 Co-signature as Attending Physician, Pablito RAMSEY was immediately available on-site ms3 in the Emergency Department for consultation in the care of the patient.. Disposition Summary: 03/21/22 20:25 Hospitalization Ordered Hospitalization Status: Inpatient Admission jm Provider: Henry Abernathy Condition: Stable jmm Problem: an acute exacerbation jmm Symptoms: are unchanged jmm Bed/Room Type: Standard [facility] Location: Telemetry/MedSurg (Inpatient)(03/21/22 23:12) bb Room Assignment: [facility](03/21/22 23:12) bb Diagnosis - Repeated falls jmm - Dehydration jmm Forms: - Medication Reconciliation Form [facility] - SBAR form qi Signatures: Dispatcher [employer] EDMallory Yu RN RN Taran Pérez PA PA jmm Ballard, Brenda, Pablito Grace RN, DO DO ms3 Mellissa Campbell RN RN vc1 Corrections: (The following items were deleted from the chart) 03/21 20:28 20:25 Telemetry/MedSurg (Inpatient) qi eddy 20:28 20:25 qi eddy 21:23 20:20 predniSONE 20 mg PO once ordered. qi vc1 23:12 20:28 [facility] ER HOLD nunu chavis 23:12 20:28 ERHOLD- nunu chavis
--- NOTE | 2022-03-21 20:53 | RAD REPORT ---
EXAM DESCRIPTION: RAD - Chest Single View - 03/21/2022 8:48 pm CLINICAL HISTORY: weakness Chest pain. COMPARISON: Chest Single View dated 03/20/2022; Chest Single View dated 03/13/2022; Chest Single View d ated 02/14/2021; Chest Single View dated 07/28/2020 FINDINGS: Portable technique limits examination quality. The lungs are grossly clear. The heart is normal in size. No displaced fractures. IMPRESSION: No acute intrathoracic process suspected.
[2022-03-21] MEDS ORDERED: MORPHINE 4 MG/ML SYR ONE (21:16)
[2022-03-21] MEDS ORDERED: ONDANSETRON 4 MG/2 ML VIAL ONE (21:16)
[2022-03-21] MEDS ORDERED: predniSONE 20 MG TAB ONE (21:16)
[2022-03-21] MEDS ORDERED: METHYLPREDNISOLONE 40 MG INJ ONE (21:26)
[2022-03-21 21:41] LABS: Absolute Lymphocytes (CBC) 1.7 K/uL (0.7-4.9); Hematocrit 36.1 % (36.0-45.0); Lymphocytes % 20.2 % (15.3-44.8); MPV 7.6 fL (7.6-11.3)
[2022-03-21 21:42] LABS: Protime INR 0.96
[2022-03-21 21:44] LABS: Albumin 2.9 g/dL (3.4-5.0); Bilirubin Direct 0.2 mg/dL (0-0.2); Bilirubin Total 0.4 mg/dL (0.2-1.0); Potassium 4.1 mmol/L (3.5-5.1); Protein, Total 6.3 g/dL (6.4-8.2); Troponin High Sensitivity 8.3 pg/mL (<58.9)
[2022-03-21] MEDS ORDERED: ONDANSETRON 4 MG/2 ML VIAL IV PRN (21:56)
[2022-03-21] MEDS ORDERED: ACETAMINOPHEN 500 MG TAB PO PRN (21:56)
[2022-03-21] MEDS ORDERED: D5 0.45 NS 1,000 ML IV SCH (22:00)
[2022-03-22] MEDS ORDERED: ONDANSETRON 4 MG/2 ML VIAL IV PRN (00:19)
[2022-03-22 00:32] VITALS: BMI 26.6
[2022-03-22] MEDS: MORPHINE 4 MG/ML SYR IV PRN ×2 (00:42→05:30)
[2022-03-22 00:55] VITALS: O2SAT 95
[2022-03-22 04:15] LABS: Absolute Lymphocytes (CBC) 0.9 K/uL (0.7-4.9); Hematocrit 33.6 % (36.0-45.0); Lymphocytes % 14.9 % (15.3-44.8); MPV 7.2 fL (7.6-11.3); RBC Red Blood Cell Count 3.65 M/uL (3.86-4.86)
[2022-03-22 04:26] LABS: Albumin 2.8 g/dL (3.4-5.0); Bilirubin Direct 0.1 mg/dL (0-0.2); Bilirubin Total 0.4 mg/dL (0.2-1.0); Protein, Total 6.4 g/dL (6.4-8.2)
[2022-03-22 08:53] VITALS: BP 169/81; TEMP 98.2
[2022-03-22] MEDS ORDERED: D50W 25 GM/50 ML SYRINGE IV PRN (09:11)
[2022-03-22] MEDS ORDERED: GLUCAGON 1 MG/VIAL IM PRN (09:11)
[2022-03-22] MEDS ORDERED: D10W 125 ML IV PRN (09:31)
[2022-03-22] MEDS ORDERED: carvediloL 12.5 MG TAB PO ONE (10:30)
[2022-03-22] MEDS ORDERED: INSULIN -REGULAR HUMAN 50 UNIT/0.5 ML ML SQ SCH (11:30)
--- NOTE | 2022-03-24 13:24 | EKG ---
Test Date: 2022-03-21 Test Time: 21:21:23 Tire [employer]apper: STEVE MEASUREMENT RESULTS: Intervals: Rate: 84 [place]: 166 QRSD: 80 QT: 374 QTc: 441 [place]: P: 61 [place]: 166 QRS: -54 T: -7 INTERPRETIVE STATEMENTS: Normal sinus rhythm Left axis deviation Inferior infarct, age undetermined Anterior infarct, age undetermined Abnormal ECG Compared to ECG 03/20/2022 14:02:22 No significant changes Electronically Signed On 03-24-22 13:22:34 CDT by Rigo Gomez
--- NOTE | 2022-03-24 15:08 | SS ---
Date of Discharge: 03/22/2022 Chief Complaint: Dizziness and fall. History Of Present Illness: This is an 86-year-old female patient with multiple comorbidities, lives at home with her , fell down a day before yesterday. The patient uses walker and she forgot to lock her walker and walker started moving away from her. She lost her balance and fell down. Whe n she fell down, she actually sat down with some force on the hard floor. She was brought into emerg ency room day before yesterday and after the workup was done, since everything was negative for any f racture, she was discharged to go home. Yesterday, she came back to emergency room and after emergen cy room provider evaluated, contacted me requesting admission to the hospital and as emergency room haydee ornelas informed me that the patient had another fall yesterday and the patient was admitted to the [facility]. When I saw her this morning, the patient and her they both reported that she did no t have another fall yesterday, only fall she had was day before yesterday, but yesterday she had no f all and she was sitting and all of a sudden she started having extreme dizziness and that is why they brought her to the emergency room. Her dizziness problem has improved. She has had some nausea, bu t no vomiting. No more diarrhea after we stopped her metformin. She was noted to be little bit dehy drated when she came into ER and IV fluid was started this morning and she is feeling better. Allergies: TO CODEINE CAUSING HALLUCINATIONS. Medications: Carvedilol 12.5 mg 2 times a day, duloxetine 30 mg daily, fluticasone nasal spray 2 gumaro es a day as needed, hydroxychloroquine 200 mg 2 times a day, levocetirizine 5 mg daily, levothyroxine 75 mcg daily, olmesartan 40 mg daily, omeprazole 20 mg daily, prednisone 5 mg daily, sodium bicarbon ate 325 mg daily, rosuvastatin 5 mg daily in the evening. 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 GI: As mentioned above. All other systems reviewed and negative. Past Medical History: Significant for peripheral neuropathy, type 2 diabetes mellitus, hypertension, mixed hyperlipidemia, gastroesophageal reflux disease, diverticulosis, rheumatoid arthritis, polymya lgia rheumatica, squamous cell carcinoma of left hand, anemia, insomnia. Past Surgical History: Cataract surgery, hysterectomy, bladder suspension, back surgery, knee surger y, foot surgery, and removal of squamous cell carcinoma in May 22, 2021. Family History: Father , had lung cancer. Mother , details unknown. Brother has diabetes. Sister had lung cancer. Social History: Negative for smoking. Use of alcohol very occasional. Physical Examination: Vital Signs: Temperature 98.2, pulse 88, respiratory rate 18, blood pressure 169/81, oxygen saturati on 98%. Height 5 feet 1 inch, weight 141 pounds. General: Awake, alert, oriented, not in distress. HEENT: Head atraumatic, normocephalic. Conjunctivae nonerythematous. Sclerae white. Mouth, no thr ush or edema noted. Ears/Nose, no mass, lesion, discharge noted. Neck: Supple. No JVD, lymph nodes, bruit, thyromegaly noted. Lungs: Bilateral good equal air entry. Clear to auscultation. No rhonchi. No rales. Heart: Normal heart sounds, no murmur or gallop. Abdomen: Soft, bowel sounds normal. No guarding, rigidity, tenderness, mass, hepatosplenomegaly, dis tention, or bruit noted. Extremities: No leg edema. No calf tenderness. Skin: No rash, ulcer, cellulitis. Lymphatics: No lymph node enlargement in neck, supraclavicular, infraclavicular region. Neuro: No focal neurological deficit. Chest: Unremarkable. External Genitalia: Deferred. Rectal: Deferred. Laboratory Data: Yesterday; white count 8.3, hemoglobin 12.2, platelets 246. This morning; white co unt 5.8, hemoglobin 11.6, platelets 319. Yesterday; sodium 132, potassium 4.1, chloride 95, bicarb 2 7, BUN 22, creatinine 1.64, glucose 192, estimated GFR 30. Liver function tests unremarkable. This morning; sodium 131, potassium 4, chloride 98, bicarb 25, BUN 20, creatinine 1.32, estimated GFR 39, glucose 253. Liver function tests unremarkable. Lipase 64. Chest x-ray, no acute cardiopulmonary c hanges. Her workup done in the emergency room 03/20/2022 ER visit included CAT scan of the head, nec k, chest, abdomen, and pelvis per trauma protocol which was negative for any acute abnormality. Her left shoulder, right hip, and pelvis x-ray was negative for fracture as well. Hospital Course: After the patient was evaluated in ER, she was admitted to the hospital. This morn ing, no other complaints reported. The patient is medically stable for discharge. What she had yest erday was episode of vertigo which she describes having it from time to time, but yesterday's episode was worse than usual. No need for further intervention at this point. The patient will benefit fro m some home health care services and home physical therapy and she is agreeable for such services and informed me that in the past she had used [facility] and she would like to use same agency, s o I have requested Social Service consultation to help make these arrangements and she will be discha rged to go home today. I have instructed her to change position slowly, use her walker all the time. Final Diagnoses: 1.Vertigo. 2.Volume depletion. 3.Anemia, unspecified. 4.Hypertension. 5.Type 2 diabetes mellitus. 6.Hypothyroidism. 7.Mixed hyperlipidemia. 8.Rheumatoid arthritis. 9.Polymyalgia rheumatica. 10.Gastroesophageal reflux disease. 11.Diverticulosis. 12.Insomnia. 13.Generalized weakness and debility. Discharge Medications And Instructions: 1.Continue all prior home medications. 2.Keep her well hydrated and drink 50-60 ounces water daily. 3.Use walker all the time. 4.Follow up at my office a week after. NIMA/MODL Voice ID: [id number] Report ID: [id number]
== END 2022-03-22 11:10 | disposition home health service (06) ==
LOC: ER 19:47 → INTOOBSV 21:55 → ERHOLD 21:55 → 2ND 23:27
PROVIDERS: ADMIT Internal Medicine; ATTEND Internal Medicine
DX: R42 Dizziness and giddiness (principal); E86.9 Volume depletion, unspecified; D64.9 Anemia, unspecified; I10 Essential (primary) hypertension; E11.40 Type 2 diabetes mellitus with diabetic neuropathy, unspecified; R11.0 Nausea; R53.1 Weakness; R53.81 Other malaise; E03.9 Hypothyroidism, unspecified; E78.2 Mixed hyperlipidemia; M35.3 Polymyalgia rheumatica; K21.9 Gastro-esophageal reflux disease without esophagitis; K57.90 Diverticulosis of intestine, part unspecified, without perforation or abscess without bleeding; G47.00 Insomnia, unspecified; M06.9 Rheumatoid arthritis, unspecified; Z91.81 History of falling; Z79.899 Other long term (current) drug therapy; Z88.6 Allergy status to analgesic agent; Z85.828 Personal history of other malignant neoplasm of skin; Z90.710 Acquired absence of both cervix and uterus; Z83.3 Family history of diabetes mellitus; Z80.1 Family history of malignant neoplasm of trachea, bronchus and lung
CPT/HCPCS: 93005; 85025 ×2; 80048 ×2; 36415; 83735; 85610; 82947 ×2; 80076 ×2; 84484; 83690; 83880; 71045; 96375; 96374; 99285; J1815; J7799; J2405 ×2; J2920; G0378 ×2; J7512

== ENCOUNTER 2022-03-26 17:29 | Emergency (ER) | payer OTHER ==
--- OUTSIDE RECORDS SUMMARY | 2022-03-26 17:31 | XMS REPORT | Clinical Summary ---
:1935 Author Organization [facility] MD [facility] Address [address] [place] [address] Care Team Providers Name Role Phone Murtaza [...] Mimi Rosado, Squamous cell c arcinoma of sikhism (Primary Dx); MD Kinsey Squamous cell c [...] Alexys RN Squamous cell c arcinoma of sikhism; Squamous cell c arcinoma of skin of [...] Chyna Velazquez Services MD 06/21/2021 Travel after 03/26/2021 Surgical History Surgery Date Site/Laterality Comments COLONOSCOPY [...] 09/20/2021 9:52 notified Fransisca juárez RN AM COAL HAULER OPERATOR Pulse 67 09/20/2021 9:52 AM COAL HAULER OPERATOR Temperature 36.6 C (97.9 F) 09/20/2021 9:52 AM COAL HAULER OPERATOR Respiratory Rate 18 09/20/2021 9:51 AM COAL HAULER OPERATOR Oxygen Saturation 96% 08/23/2021 11:23 AM CDT Inhaled Oxygen - - Concentration Weight 65.9 kg (145 lb 4.5 09/20/2021 9:51 oz) AM COAL HAULER OPERATOR Height 148.5 cm (4' 10.47") 06/21/2021 9:40 AM CDT Body Mass Index 29.88 06/21/2021 9:40 AM CDT Plan of Treatment Date Type Specialty Care Team Description 06/30/2022 Office Visit Dermatology Chyna Velazquez M D [address], [place] [address] (Wo rk) Health Maintenance Due Date Last Done Comments COVID-19 Vaccination (1) 1940 Procedures Procedure Name Priority Date/Time Associated Comments Diagnosis PATHOLOGY BIOPSY Routine 09/20/2021 10:18 Neoplasm of Results for this INTERPRETATION AM COAL HAULER OPERATOR uncertain behavior procedu re are in of [...] in of skin the results section. after 03/26/2021 Results Pathology Biopsy Interpretation (09/20/2021 10:18 AM COAL HAULER OPERATOR)Only the most recent of 3 resultswithin the time period is included. Component Value Ref Test Analysis Performed Pathologis t Range Method Time At Signature Addendum 1 Multiple additional deeper t issue sections have been cut and examined. 09/23/2021 [facility] Addendum 1:25 PM electronic ally Deeper tissue levels show FO SON SQUAMOUS CELL CARCINOMA IN SITU ARISING IN ASSOCIATION WITH HYPERPLASTIC ACTINIC KERATOSIS, TRAUMATIZED PRESENT AT PERIPHERAL AND DEEP TISSUE EDGES. 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 1:25 PM signed by Junior See comment. COAL HAULER OPERATOR Nurys Lima on 09/21/2021 at 12:18 PM Comment An additional 09/23/2021 [facility] biopsy may be 1:25 PM considered should COAL HAULER OPERATOR this lesion fail to respond to conservative therapy. Gross A: 09/23/2021 [facility] Description Skin, r lateral submandibula r jawline - 4-5 mm pink scaly thin papule - ?scc in situ: 1 hdz skin shave, 0.6 x 0.4 x 0.1 cm. The margins are inked, bisected, entirely submitted in A1. ET 1:25 P M COAL HAULER OPERATOR Disclaimer "Some tests 09/23/2021 [facility] reported here may 1:25 PM have been COAL HAULER OPERATOR developed and performance characteristics determined by [facility]. These tests have not been specifically cleared or approved by the U.S. Food and Drug Administration. If applicable, controls were reviewed and showed appropriate reactivity." Specimen Anatomical Collection Method Collection Time Receive d Time (Source) Location / / Volume Laterality Tissue (Skin) 09/20/2021 10:18 09/20/2021 AM COAL HAULER OPERATOR 3:42 PM COAL HAULER OPERATOR Chyna Velazquez MD LAB PATHOLOGY ORDERABLES Performing Organization Address City/State/ZIP Code Phon e Number [facility] [place] [address] [id number] [place] Upper [facility]rem[facility] [...] with the final report. Kinsey Rosado MD [facility] ORDERABLES after 03/26/2021 Insurance Payer Benefit Plan / Subscriber ID Effective Phone Address T ype Group Dates [employer] MEDICARE [id number] 2021-Prese [address] [address] Medicare HEALTHCARE ADVANTAGE nt [place] [employer] [phone] (Home) [place] [address] Caridad Chadwick Personal/Family Self [address] [place] [address] ([place]) [place] [address] Care Teams Head Of Loss Prevention Relationship Specialty Start Date End Date Trav Abernathy MD PCP - External Referring Internal Medicine 06/19/[address] [place] [address] [place] [phone] Chyna Velazquez MD PCP - General Dermatology 06/20/[address] [place] [id number] Kinsey Rosado, PCP - External Follow Up Dermatology 07/04/21 MD Hauser [address] [place] [id number]
--- OUTSIDE RECORDS SUMMARY | 2022-03-26 17:36 | XMS REPORT | Continuity of Care Document ---
:1935 Author Organization [facility] t Address [address] [place] [address] Care Team Providers Name Role Phone ASHLI Primary Care Physician Unavailable RENZO Attending Clinician Unavailable SYSTEM, NOT IN Attending Clinician Unavailable MERVIN PUENTES Attending Clinician Unavailable LUCILLE Attending Clinician Unavailable EMMANUEL Attending Clinician Unavailable DIMA, K.H. Attending Clinician Unavailable Juan Miguel SU, L Attending Clinician Unavailable Jazmin THOMPSON, F Attending Clinician Beverly DELANEY Attending Clinician Dima EDLANEY, K.H. Attending Clinician Demetrius DELANEY Attending Clinician [...] Number Effective Date Expiration Date S ource [facility] [id number] [address] 00:00:00 PPO MEDICARE A B [id number] 1998 00:00:00 [employer] TRS RETIREES [id number] 2010 2010 00:00:00 00:00:00 [facility] MEDICARE [id number] 2021 ADVANTAGE 00:00:00 [employer] PPO I [id number] 2010 00:00:00 [facility] [id number] 2020 2020 00:00:00 00:00:00 Problems Condition Condition [...] Added automatic ally from request for surgery [id number] Spondyloli Spondyloli Disease Active Overview : 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 Added automatic ally from request for surgery [id number] Trochanter Trochanter Disease Active Overview : Methodi ic ic 2-[address] bursitis bursitis 00:00: g of this Hos mario of right of right 00 note l hip hip might be different from the original. Added automatic ally from request for surgery [id number] Diverticul Diverticul Disease Active M ethodi itis [...] NO KNOWN Allergy Active [facility] Family History Family Member Diagnosis Comments Start Date Stop Date Source Natural brother Diabetes [facility] Natural father Lung cancer [facility] Natural mother Old age [facility] Social History Social Habit Start Date Stop Date Quantity Comments Source History [facility] Anabaptism Alcohol Frequency Hospita l Exposure to Not sure University SARS-CoV-2 [facility] (event) Branch History [facility] Anabaptism Alcohol Std Hospital Drinks History [facility] Anabaptism Alcohol Binge Hospital History [facility] 2021-03-08 2021-03-08 17 University o f Education 00:00:00 00:00:00 [facility] Alcohol intake 2020-09-17 2020-09-17 .14 /d Anabaptism 00:00:00 00:00:00 Hospital Alcohol Comment 2019-10-31 2019-10-31 1-2 times a year Met [facility] 00:00:00 00:00:00 Hospital Tobacco use and 2016-05-06 2016-05-06 Smokeless tobacco Me thodist exposure 00:00:00 00:00:00 non-user Hospital Sex Assigned At [birth year] Anabaptism 00:00:00 00:00:00 Hospital Smoking Status Start Date Stop Date Source Never smoker [facility] Branch Medications Ordered Filled Start Stop Current Ordering Indication Dosage Frequency Signature Comments Components Source Medication Medication Date Date Medication? Clinician (SIG) Name Name predniSONE Yes [id number] 5mg Take 1 Univers 5 mg tablet 5-27 tablet by ity of 00:00: mouth [place] 00 daily. Medical Branch predniSONE Yes [id number] 5mg Take 1 Univers 5 mg tablet [...] 2 ity of Min Cmb#15 19:33: (two) [place] (CENTRATEX) 14 times Medical 106 mg daily. Branch iron- 1 mg Cap famciclovir 2020- No 1{tbl} Take 1 U nivers (FAMVIR 5-26 05-26 tablet by ity of ORAL) 17:25: 00:00 mouth 3 [place] 18 :00 (three) Medical times [place] daily. hydrOXYchlo 2020- No 200mg Take 200 Univers roQUINE 5-26 05-26 mg by ity of (PLAQUENIL) 17:25: 00:00 mouth [place] 200 mg 18 :00 daily. Medical tablet Branch levothyroxi 2020- No 88ug Take 88 Un [place]ac[place] ne 88 mcg 5-26 05-26 mcg by ity of tablet 17:25: 00:00 mouth [place] 18 :00 daily. 6AM Medical Branch omeprazole 2020- No 25mg Take 25 mg Univers 20 mg 5-26 05-26 by mouth ity of capsule 17:25: 00:00 daily. [place] 18 :00 Medical Branch rosuvastati 2020- No 5mg Take 5 mg Univers n (CRESTOR) 5-26 05-26 by mouth ity of 5 mg tablet 17:25: 00:00 at [place] 18 :00 bedtime. Medical Branch carvediloL 2020- No 12.5mg Take 12.5 Univers (COREG) 5-26 05-26 mg by ity of 12.5 mg 17:25: 00:00 mouth 2 [place] tablet 18 :00 (two) Medical times [place] daily with meals. metFORMIN 2020- No 500mg Take 500 Un [place] 500 mg 5-26 05-26 mg by ity of tablet 17:25: 00:00 mouth 2 [place] 18 :00 (two) Medical times [place] daily with meals. DULoxetine 2020- No 30mg Take 30 mg Univers 30 mg 5-26 05-26 by mouth ity of capsule 17:25: 00:00 daily. [place] 18 :00 Medical Branch olmesartan 2020- No 40mg Take 40 mg Univers 40 mg 5-26 05-26 by mouth ity of tablet 17:25: 00:00 daily. [place] 18 :00 Medical Branch famciclovir 2020- No [...] mouth ity of capsule 17:25: 00:00 daily. [place] 18 :00 Medical Branch rosuvastati 2020- No 5mg Take 5 mg Univers n (CRESTOR) 5-26 05-26 by mouth ity of 5 mg tablet 17:25: 00:00 at [place] 18 :00 bedtime. Medical Branch carvediloL 2020- No 12.5mg Take 12.5 Univers (COREG) 5-26 05-26 mg by ity of 12.5 mg 17:25: 00:00 mouth 2 [place] tablet 18 :00 (two) Medical times Branch daily with meals. famciclovir 2020- No 1{tbl} Take 1 U nivers (FAMVIR 5-26 05-26 tablet by ity of ORAL) 17:25: 00:00 mouth 3 [place] 18 :00 (three) Medical times Branch daily. [...] times Branch daily with meals. hydrOXYchlo Yes [id number] 200mg Take 1 Univers roQUINE 5-26 tablet by ity of (PLAQUENIL) 00:00: mouth [place] 200 mg 00 daily. Medical tablet Branch rosuvastati Yes [id number] 5mg Take 1 Univers n (CRESTOR) 5-26 tablet by ity of 5 mg tablet 00:00: mouth at [place] 00 bedtime. Medical Branch carvediloL Yes [id number] 12.5mg Take 1 Univers (COREG) 5-26 tablet by ity of 12.5 mg 00:00: mouth 2 [place] tablet 00 (two) Medical times Branch daily with meals. levothyroxi Yes [id number] 88ug Take 1 Univers ne 88 mcg 5-26 tablet by ity o f tablet 00:00: mouth [place] 00 every Medical morning. Branch 6AM lactobacill 0 Yes [id number] 1{tbl} Take 1 Univers us 5-26 tablet by ity of acidophilus 00:00: mouth 2 [place] 25 million 00 (two) Medical cell -100 times Branch mg captab daily. hydrOXYchlo Yes [id number] 200mg Take 1 Univers roQUINE 5-26 tablet by ity of (PLAQUENIL) 00:00: mouth [place] 200 mg 00 daily. Medical tablet Branch rosuvastati Yes [id number] 5mg Take 1 Univers n (CRESTOR) 5-26 tablet by ity of 5 mg tablet 00:00: mouth [place] 00 bedtime. Medical Branch carvediloL Yes [id number] 12.5mg Take 1 Univers (COREG) 5-26 tablet by ity of 12.5 mg 00:00: mouth 2 [place] tablet 00 (two) Medical times Branch daily with meals. levothyroxi Yes [id number] 88ug Take 1 Univers ne 88 mcg 5-26 tablet by ity o f tablet 00:00: mouth [place] 00 every Medical morning. Branch 6AM lactobacill Yes [id number] 1{tbl} Take 1 Univers us 5-26 tablet by ity of acidophilus 00:00: mouth 2 [place] 25 million 00 (two) Medical cell -100 times Branch mg captab daily. furosemide 2020- No [id number] 20mg Take 1 Univers 20 mg 5-26 06-26 tablet by ity of tablet 00:00: 04:59 mouth [place] 00 :00 daily for Medical 30 days. Branch KCL 10 mEq 2020- No [id number] 20meq Take 2 Univers tablet 5-26 06-26 tablets by ity of 00:00: 04:59 mouth [place] 00 :00 daily for Medical 30 days. Branch furosemide 2020- No [id number] 20mg Take 1 Univers 20 mg 5-26 06-26 tablet by ity of tablet 00:00: 04:59 mouth [place] 00 :00 daily for Medical 30 days. Branch KCL 10 mEq 2020- No [id number] 20meq Take 2 Univers tablet 5-26 06-26 tablets by ity of 00:00: 04:59 mouth [place] 00 :00 daily for Medical 30 days. Branch vancomycin 2020- No [id number] Take 1 Univers 125 mg 5-26 06-20 capsule by ity of capsule 00:00: 04:59 mouth 4 [place] 00 :00 (four) Medical times Branch daily for 10 days, THEN 1 capsule 2 (two) times daily for 7 days, THEN 1 capsule daily for 7 days. vancomycin 2020- No [id number] Take 1 Univers 125 mg 5-26 06-20 [...] 00 First dose Medical (HumaLOG) + on [facility] Branch Fsbg 03/09/21 at Testing 1200, Until [...] mg 00 :14 First dose Medical on [facility] 03/09/21 at 0900, Until Discontinu ed, Routine carvediloL Yes 12.5mg 12.5 mg, U nivers (COREG) 03-09 Oral, BID ity of tablet 12.5 13:00: MEALS, [place] mg 00 First dose Medical on [facility] 03/09/21 at 0800, Until Discontinu ed, Routine vancomycin No 125mg 125 mg, Un ignacia (VANCOCIN) 03-09 Oral, QID, it y of capsule 125 13:00: 21:36 56 doses, [place] mg 00 :50 First dose Medical on [facility] 03/09/21 at 0800, Last dose on Thu03/22/21 at 2000, Routine
Reason for Anti-Infec tive: Documented Infection< br>Documen roxanna Infection Site: Abdominal< br>Duratio n of Therapy: 14 days levothyroxi Yes 88ug 88 mcg, Uni vers ne 03-09 Oral, ity of (SYNTHROID) 11:00: QAM-0600, [place] tablet 88 00 First dose Medi eduar mcg on [facility] 03/09/21 at 0600, Until Discontinu ed, Routine rosuvastati Yes 5mg 5 mg, Unive rs n (CRESTOR) 03-09 Oral, QHS, it y of tablet 5 mg 02:00: First dose [place] 00 on Thu [facility] 03/08/21 at Branch 2100, Until Discontinu ed, Routine enoxaparin Yes 40mg 40 mg, Unive rs (LOVENOX) 03-08 Subcutaneo ity of injection 22:00: us, DAILY, [place] 40 mg 00 First dose Medical on Thu [place] 03/08/21 at 1700, Until Discontinu ed, Routine acetaminoph Yes 650mg 650 mg, Un ignacia en 03-08 Oral, ity of (TYLENOL) 19:47: Q6HPRN, [place] tablet 650 32 Starting Medic al mg [...] Medi eduar RTU 10 mEq 03/08/21 at [facility] 1330, 100 mL KCL 2020- No [...] 03/08/21 at 1315, Routine iohexol 2020- No [id number] 100mL 100 mL, Univers (OMNIPAQUE 03-08 Intravenou it y of 350 17:25: 17:25 s, ONCE, 1 [place] BULK-100 00 :00 dose, Fri Medica l mL) 03/08/21 at Branch injection 1245, 100 mL Routine olmesartan 2021-0 Yes 40mg Take 40 mg U nivers 40 mg 5-19 by mouth ity of tablet 19:02: daily. [address] Iron-Folic 0 Yes Take by Uni vers Acid-Mv, 5-19 mouth 2 ity of Min Cmb#15 19:02: (two) [place] (CENTRATEX) 37 times Medical 106 mg daily. Branch iron- 1 mg Cap olmesartan 0 Yes 40mg Take 40 mg U nivers 40 mg 5-19 by mouth ity of tablet 19:02: daily. [address] Iron-Folic 0 Yes Take by Uni vers Acid-Mv, 5-19 mouth 2 ity of Min Cmb#15 19:02: (two) [place] (CENTRATEX) 37 times Medical 106 mg daily. Branch iron- 1 mg Cap olmesartan 0 Yes 40mg Take 40 mg U nivers 40 mg 5-19 by mouth ity of tablet 19:02: daily. [address] Iron-Folic Yes Take by Uni vers Acid-Mv, 5-19 mouth 2 ity of Min Cmb#15 19:02: (two) [place] (CENTRATEX) 37 times Medical 106 mg daily. Branch iron- 1 mg Cap levothyroxi 0 Yes 88ug Take 88 Uni vers ne 88 mcg 5-19 mcg by ity of tablet 19:01: mouth [place] [address] [place] [address] metFORMIN 0 Yes 500mg Take 500 Uni vers 500 mg 5-19 mg by ity of tablet 19:01: mouth 2 [place] [address] ([facility]) [facility] daily with meals. DULoxetine 0 Yes 30mg Take 30 mg U nivers 30 mg 5-19 by mouth ity of capsule 19:01: daily. [address] levothyroxi 0 Yes 88ug Take 88 Uni vers ne 88 mcg 5-19 mcg by ity of tablet 19:01: mouth [place] [address] [place] [address] metFORMIN 2020-0 Yes 500mg Take 500 Uni vers 500 mg 5-19 mg by ity of tablet 19:01: mouth 2 [place] [address] (two) [facility] daily with meals. DULoxetine 2020-0 Yes 30mg Take 30 mg U nivers 30 mg 5-19 by mouth ity of capsule 19:01: daily. [address] levothyroxi Yes 88ug Take 88 Uni vers ne 88 mcg 5-19 mcg by ity of tablet 19:01: mouth [place] [address] daily. 6AM Medical Branch metFORMIN 0 Yes 500mg Take 500 Uni vers 500 mg 5-19 mg by ity of tablet 19:01: mouth 2 [place] [address] (two) Medical times Branch daily with meals. DULoxetine Yes 30mg Take 30 mg U nivers 30 mg 5-19 by mouth ity of capsule 19:01: daily. [address] Branch famciclovir 0 Yes 1{tbl} Take 1 Un ign[place] (FAMVIR 5-19 tablet by ity of ORAL) 19:00: mouth 3 [place] [address] (three) Medical times Branch daily. famciclovir 0 Yes 1{tbl} Take 1 Un [place] (FAMVIR 5-19 tablet by ity of ORAL) 19:00: mouth 3 [place] [address] (three) Medical times Branch daily. famciclovir Yes 1{tbl} Take 1 Un [place] (FAMVIR 5-19 tablet by ity of ORAL) 19:00: mouth 3 [place] [address] (three) Medical times Branch daily. GABAPENTIN 2020-2020- No 100mg Take 100 U nivers ORAL 5-19 05-19 mg by ity of 18:59: 00:00 mouth 3 [place] 52 :00 (three) Medical times Branch daily. GABAPENTIN 2020-0 2020- No 100mg Take 100 U nivers ORAL 5-19 05-19 mg by ity of 18:59: 00:00 mouth 3 [place] 52 :00 (three) Medical times Branch daily. GABAPENTIN 2020-0 2020- No 100mg Take 100 U nivers ORAL 5-19 05-19 mg by ity of 18:59: 00:00 mouth 3 [place] 52 :00 (three) Medical times Branch daily. GABAPENTIN 2020-0 2020- No 100mg Take 100 U nivers ORAL 5-19 05-19 mg by ity of 18:59: 00:00 mouth 3 [place] 52 :00 (three) Medical times Branch daily. ofloxacin 2020-0 202- No 1[drp] Place 1 Un ignacia 0.3 % 5-19 05-19 Drop in ity of ophthalmic 18:59: 00:00 left eye 3 [place] solution 49 :00 (three) Medical times Branch [...] ity of 5 mg tablet 18:56: at [place] [address] bedtime. Medical Branch carvediloL Yes 12.5mg Take [...] ity of 5 mg tablet 18:56: at [place] [address] bedtime. Medical Branch carvediloL 2021-0 Yes 12.5mg [...] times Branch daily with meals. furosemide Yes [id number] 40mg Take 1 Univers 40 mg 5-19 tablet by ity of tablet 00:00: mouth [place] 00 daily. Medical Branch furosemide Yes [id number] 40mg Take 1 Univers 40 mg 5-19 tablet by ity of tablet 00:00: mouth [place] 00 daily. Medical Branch furosemide Yes [id number] 40mg Take 1 Univers 40 mg 5-19 tablet by ity of tablet 00:00: mouth [place] 00 daily. Medical Branch KCL 20 mEq 2020- No [id number] 20meq Take 1 Univers tablet 5-19 06-19 tablet by ity of 00:00: 04:59 mouth [place] 00 :00 daily for Medical 30 days. Branch KCL 20 mEq 2020- No [id number] 20meq Take 1 Univers tablet 5-19 06-19 tablet by ity of 00:00: 04:59 mouth [place] 00 :00 daily for Medical 30 days. Branch KCL 20 mEq 2020- No [id number] 20meq Take 1 Univers tablet 5-19 06-19 tablet by ity of 00:00: 04:59 mouth [place] 00 :00 daily for Medical 30 days. Branch furosemide 2020- No [id number] 40mg Take 1 Univers 40 mg 5-19 05-26 tablet by ity of tablet 00:00: 00:00 mouth [place] 00 :00 daily. Medical Branch KCL 20 mEq 2020- No [id number] 20meq Take 1 Univers tablet 5-19 05-26 [...] by mouth ity of capsule 22:16: daily. [place] 54 Medical Branch rosuvastati Yes 5mg Take [...] by mouth ity of capsule 22:16: daily. [place] 54 Medical Branch rosuvastati Yes 5mg Take [...] by mouth ity of capsule 22:16: daily. [place] [address] Medical Branch rosuvastati 0 Yes 5mg Take 5 mg U nivers n (CRESTOR) 5-07 by mouth ity of 5 mg tablet 22:16: at [place] [address] bedtime. Medical Branch carvediloL Yes 12.5mg Take 12.5 Univers (COREG) 5-07 mg by ity of 12.5 mg 22:16: mouth 2 [place] tablet 54 (two) Medical times Branch daily with meals. metFORMIN 2020- No 500mg Take 500 Un [place] 500 mg - 05-07 mg by ity of tablet 20:47: 00:00 mouth 2 [place] 14 :00 (two) Medical times Branch daily with meals. olmesartan 2020- No 40mg Take 40 mg Univers 40 mg 02-22-07 by mouth ity of tablet 20:47: 00:00 daily. [place] 14 :00 OLMESARTAN Medical MEDOXOMIL Branch predniSONE 2020- No 20mg Take 20 mg Univers 20 mg 02-22-07 by mouth ity of tablet 20:47: 00:00 daily. 3 [place] 14 :00 TABS DAILY Medical FOR 3 Branch DAYS, THEN 2 TABLETS BY MOUTH FOR 3 DAYS LAST TAKEN 5.2.21 sulfur 2020- No [id number] 5mL 5 mL, Un [place] hexafluorid 02-22- 9109 Intravenou i ty of e microsphr 18:15: 18:15 s, ONCE, 1 [place] (LUMASON) 00 :00 dose, Fri Medic al injection 5 02/22/21 at [facility] mL 1315, Routine
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 prednisoLON Yes [id number] 1[drp] Place 1 Univers E acetate 1 5-07 Drop in ity o f % 00:00: left eye 4 [place] ophthalmic 00 (four) Medical suspension times Branch drops daily. lactobacill 2020- No [id number] 1{tbl} Take 1 Univers us 5-07 06-07 tablet by ity of acidophilus 00:00: 04:59 mouth 2 [place] 25 million 00 :00 (two) Medical cell -100 times Branch mg captab daily for 30 days. lactobacill 2020- No [id number] 1{tbl} Take 1 Univers us 5-07 06-07 tablet by ity of acidophilus 00:00: 04:59 mouth 2 [place] 25 million 00 :00 (two) Medical cell -100 times Branch mg captab daily for 30 days. lactobacill 2020- No [id number] 1{tbl} Take 1 Univers us 5-07 06-07 tablet by ity of acidophilus 00:00: 04:59 mouth 2 [place] 25 million 00 :00 (two) Medical cell -100 times Branch mg captab daily for 30 days. lactobacill 2020- No [id number] 1{tbl} Take 1 Univers us 5-07 06-07 tablet by ity of acidophilus 00:00: 04:59 mouth 2 [place] 25 million 00 :00 (two) Medical cell -100 times Branch mg captab daily for 30 days. lactobacill 2020- No [id number] 1{tbl} Take 1 Univers us 5-07 06-07 tablet by ity of acidophilus 00:00: 04:59 mouth 2 [place] 25 million 00 :00 (two) Medical cell -100 times Branch mg captab daily for 30 days. lactobacill 2020- No [id number] 1{tbl} Take 1 Univers us 5-07 06-07 tablet by ity of acidophilus 00:00: 04:59 mouth 2 [place] 25 million 00 :00 (two) Medical cell -100 times Branch mg captab daily for 30 days. lactobacill 2020- No [id number] 1{tbl} Take 1 Univers us 5-07 05-26 tablet by ity of acidophilus 00:00: 00:00 mouth 2 [place] 25 million 00 :00 (two) Medical cell -100 times Branch mg captab daily for 30 days. lactobacill 2020- No [id number] 1{tbl} Take 1 Univers us 5-07 05-26 tablet by ity of acidophilus 00:00: 00:00 mouth 2 [place] 25 million 00 :00 (two) Medical cell -100 times Branch mg captab daily for 30 days. lactobacill 2020- No [id number] 1{tbl} Take 1 Univers us 5-07 05-26 tablet by ity of acidophilus 00:00: 00:00 mouth 2 [place] 25 million 00 :00 (two) Medical cell -100 times Branch mg captab daily for 30 days. prednisoLON 2020- No [id number] 1[drp] Place 1 Univers E acetate 1 5- 05-19 Drop in ity of % 00:00: 00:00 left eye 4 [place] ophthalmic 00 :00 (four) Medical suspension times Branch drops daily. prednisoLON 2020- No [id number] 1[drp] Place 1 Univers E acetate 1 5- 05-19 Drop in ity of % 00:00: 00:00 left eye 4 [place] ophthalmic 00 :00 (four) Medical suspension times Branch drops daily. prednisoLON 2020- No [id number] 1[drp] Place 1 Univers E acetate 1 5- 05-19 Drop in ity of % 00:00: 00:00 left eye 4 [place] ophthalmic 00 :00 (four) Medical suspension times Branch drops daily. prednisoLON 2020- No [id number] 1[drp] Place 1 Univers E acetate 1 5-07 05-19 Drop in ity of % 00:00: 00:00 left eye 4 [place] ophthalmic 00 :00 (four) Medical suspension times Branch drops daily. levoFLOXaci 2020- No [id number] 500mg Take 1 Univers n 500 mg 5-07 05-10 tablet by ity o f tablet 00:00: 04:59 mouth [place] 00 :00 every 24 Medical (twenty-fo Branch ur) hours for 2 days. KCL Yes 20meq 20 mEq, Univers (KLOR-CON 02-21 Oral, ity of M20) tablet 14:00: DAILY, [place] 20 mEq 00 First dose Medical on [facility] 02/21/21 at 0900, Until Discontinu ed, Routine omeprazole Yes 20mg 20 mg, Unive rs (PRILOSEC) 02-21 Oral, ity of capsule 20 14:00: DAILY, [place] mg 00 First dose Medical on [facility] 02/21/21 at 0900, Until Discontinu ed, Routine hydrOXYchlo Yes 200mg 200 mg, Un ign[place] roQUINE 02-21 Oral, ity of (PLAQUENIL) 14:00: DAILY, [place] tablet 200 00 First dose Med ical mg on [facility] 02/21/21 at 0900, Until Discontinu ed, Routine
Indicatio n: Rheumatic disorder enoxaparin Yes 30mg 30 mg, Unive rs (LOVENOX) 02-21 Subcutaneo ity of injection 14:00: us, DAILY, [place] 30 mg 00 First dose Medical on [facility] 02/21/21 at 0900, Until Discontinu ed, Routine levothyroxi Yes 100ug 100 mcg, U nivers ne 02-21 Oral, ity of (SYNTHROID) 11:00: QAM-0600, [place] tablet 100 00 First dose Med ical mcg on [facility] 02/21/21 at 0600, Until Discontinu ed iohexol 2020- No [id number] 120mL 120 mL, U nivers (OMNIPAQUE 02-21- [...] ity of succ 07:30: 06:26 Push, ONCE [place] (SOLU-MEDRO 00 :00 NOW, 1 Medica l [...] mL mg/kg Branch IV infusion ?47.8 kg [place] weight), IV Infusion, Q8H ABX, First dose [...] ity of mg 06:45: 05:40 ONCE, 1 [place] 00 :00 dose, [place] [facility] 02/21/21 at [...] ity of 1,000 mg in 06:30: Piggyback, [place] NaCl 0.9% 00 Q12H ABX, Medic al (NS) 50 mL First dose Bra replaced by [facility] MINI-BAG on [place] 02/21/21 at 0130, Until [...] injection 37 Starting Medica l 25 mL [facility] 02/21/21 Branch at 0107, Until Discontinu ed, KIRSTY, Blood Glucose < or = 70 mg/dL and patient is unable to swallow or has mental status changes. predniSONE Yes 10mg 10 mg, Unive rs (DELTASONE) 02-21 Oral, ity of tablet 10 05:45: DAILY, [place] mg 00 First dose Medical on [facility] Branch 02/21/21 at 0045, Until Discontinu ed, Routine moxifloxaci Yes 1[drp] 1 Drop, U omar n (VIGAMOX) 02-21 Left Eye, ity of 0.5 % 05:45: TID, First [place] ophthalmic 00 dose on Medica l drops 1 [facility] 02/21/21 Branch Drop at 0045, Until Discontinu [...] Medica l ) tablet 25 02/21/21 at [facility] mg 0045, Until Discontinu ed, Routine [...] injection 4 41 Starting Medi eduar mg [facility] 02/21/21 Branch at 0006, Until Discontinu ed, Routine, Nausea and Vomiting (N/V) FENTanyl PF 2020- No 25ug 25 mcg, Un ignacia (SUBLIMAZE 02-20 05-05 Slow IV ity o f (PF)) 23:45: 23:05 Push, [place] injection 00 :00 ONCE, 1 Medical 25 mcg dose, Wed [place] 02/20/21 at 1845, STAT ondansetron 2020- No [...] :00 Infusion, Medical ONCE, 1 Branch dose, [facility] 02/20/21 at 1715, STAT FENTanyl PF 2020- No 50ug 50 mcg, Un ignacia (SUBLIMAZE 5-05 05-05 Slow IV ity o f (PF)) 21:45: 20:36 Push, [place] injection 00 :00 ONCE, 1 Medical 50 mcg dose, Thu02/20/21 at 1645, STAT predniSONE Yes 6mg QD Take [address] (DELTASONE) 2-11 by mouth [facility] 1 MG tablet 16:50: daily. Medi eduar 20 [place] levothyroxi Yes 88ug QD Take 88 [facility] [...] 40 MG 16:50: daily. Medical tablet 20 [place] leflunomide Yes 10mg QD Take [address] (ARAVA) 10 2-11 by mouth [facility] tablet 16:50: daily. Medica l 20 [place] rosuvastati Yes 5mg QD Take [address] [facility] (CRESTOR) 2-11 by mouth Luke [facility] 5 MG tablet 16:50: daily. [address] omeprazole Yes 20mg QD Take [address] (PriLOSEC) 2-11 by mouth [facility] 20 MG 16:50: daily. Medical capsule 20 [place] cyanocobala Yes 100ug QD Take 100 C [...] Luke s 1 MG tablet 16:50: daily. [address] levothyroxi Yes 88ug QD Take 88 [...] 40 MG 16:50: daily. Medical tablet 20 [place] leflunomide Yes 10mg QD Take 10 mg [...] 20 MG 16:50: daily. Medical capsule 20 [place] cyanocobala Yes 100ug QD Take [address] min, 2-11 mcg by [facility] vitamin 16:50: mouth Medical B-12, 100 20 daily. [place] MCG tablet ferrous Yes 325mg Take 325 [...] 00:00 mouth Medical tablet 09 :00 daily. [place] hydrOXYchlo Yes QD Take by Met hodi [...] Hospita capsule 57 l traMADoL 2019-10 Yes [id number] 50mg Q6H Take 50 mg Me thodi [...] Name Observation Time Observation Value Comments Source WEIGHT 2020-11-29 60.555 kg 11:27:00 HEIGHT 2020-11-29 156.2 cm 11:27:00 HEIGHT 2020-11-26 156.2 cm 12:20:00 WEIGHT 2020-11-26 66.225 kg 12:20:00 Systolic blood 2021-03-13 119 mm[Hg] University of pressure 17:00:00 [facility] Diastolic blood 2021-03-13 66 mm[Hg] University o f pressure 17:00:00 [facility] [facility] Heart rate 2021-03-13 89 /min [facility] 17:00:00 [facility] Body temperature 2021-03-13 36.11 Blanca University of 17:00:00 [facility] Respiratory rate 2021-03-13 18 /min University of 17:00:00 [facility] Oxygen saturation 2021-03-13 99 /min [facility] in Arterial blood 17:00:00 [facility] by Pulse oximetry Branch Body weight 2021-03-13 56.7 kg University of 09:57:00 [facility] BMI 2021-03-13 23.62 kg/m2 University of 09:57:00 [facility] Body height 2021-03-08 154.9 cm University of 20:15:00 [facility] Systolic blood 2021-03-06 120 mm[Hg] University of pressure 19:03:00 [facility] Diastolic blood 2021-03-06 72 mm[Hg] University o f pressure 19:03:00 [facility] Heart rate 2021-03-06 79 /min University of 19:03:00 [facility] Respiratory rate 2021-03-06 19 /min University of 19:03:00 [facility] Body height 2021-03-06 152.4 cm University of 19:03:00 [facility] Body weight 2021-03-06 57.471 kg University of 19:03:00 [facility] BMI 2021-03-06 24.74 kg/m2 University of 19:03:00 [facility] Oxygen saturation 2021-03-06 96 /min Gray of in Arterial blood 19:03:00 [facility] by Pulse oximetry Branch Body height 2021-03-05 152.4 cm University of 20:14:00 [facility] Body weight 2021-03-05 57.749 kg University of 20:14:00 [facility] BMI 2021-03-05 24.86 kg/m2 University of 20:14:00 [facility] Systolic blood 2021-02-22 139 mm[Hg] University of pressure 16:00:00 [facility] Diastolic blood 2021-02-22 64 mm[Hg] Gray o f pressure 16:00:00 [facility] Heart rate 2021-02-22 77 /min [facility] 16:00:00 [facility] Body temperature 2021-02-22 35.83 Blanca [facility] 16:00:00 [facility] Respiratory rate 2021-02-22 18 /min [facility] 16:00:00 [facility] Oxygen saturation 2021-02-22 95 /min [facility] in Arterial blood 16:00:00 [facility] by Pulse oximetry [place] Body weight 2021-02-22 60.963 kg [facility] 08:01:00 [facility] BMI 2021-02-22 25.39 kg/m2 [facility] 08:01:00 [facility] Body height 2021-02-21 154.9 cm [facility] 01:11:00 [facility] WEIGHT 2020-11-29 60.555 kg 11:27:00 HEIGHT 2020-11-29 156.2 cm 11:27:00 HEIGHT 2020-11-26 156.2 cm 12:20:00 WEIGHT 2020-11-26 66.225 kg 12:20:00 Systolic blood 2020-11-29 162 mm[Hg] PER [facility] pressure 15:17:00 [facility] er Diastolic blood 2020-11-29 70 mm[Hg] [facility] pressure 15:17:00 [facility] er Heart rate 2020-11-29 62 /min [facility] 15:17:00 [facility] Body temperature 2020-11-[address] [facility] 15:17:00 [facility] Respiratory rate 2020-11-29 16 /min [facility] 15:17:00 [facility] Oxygen saturation 2020-11-29 95 /min [facility] es in Arterial blood 15:17:00 [facility] by Pulse oximetry Body height 2020-11-[address] [facility] 11:27:00 [facility] Body weight 2020-11-[address] [facility] 11:27:00 [facility] BMI 2020-11-29 24.82 kg/m2 [facility] 11:27:00 [facility] Center Procedures Procedure Date / Time Performing Clinician Source Performed POCT GLUCOSE (AUTOMATED) 2021-03-13 17:02:00 Bradford Paul versity of [facility] POCT GLUCOSE (AUTOMATED) 2021-03-13 13:32:00 Bradford Paul Uni versity of [facility] POCT GLUCOSE (AUTOMATED) 2021-03-13 01:28:00 Bradford Paul Uni versity of [facility] POCT GLUCOSE (AUTOMATED) 2021-03-12 20:56:00 Bradford Paul [facility] BASIC METABOLIC PANEL 2021-03-12 18:44:00 Bradford Paul [facility] (NA, K, CL, CO2, GLUCOSE, Medica l Branch BUN, CREATININE, CA) N-TERMINAL PRO-BNP 2021-03-12 18:44:00 Kera Ch [facility] POCT GLUCOSE (AUTOMATED) 2021-03-12 16:05:00 Bradford Paul [facility] POCT GLUCOSE (AUTOMATED) 2021-03-12 12:15:00 Bradford Paul Miryam versity of [facility] POCT GLUCOSE (AUTOMATED) 2021-03-12 01:26:00 Bradford Paul Miryam versity of [facility] POCT GLUCOSE (AUTOMATED) 2021-03-11 21:06:00 Bradford Paul Miryam versity of [facility] POCT GLUCOSE (AUTOMATED) 2021-03-11 16:00:00 Bradford Paul [facility] BASIC METABOLIC PANEL 2021-03-11 15:05:00 Jordan Will [facility] (NA, K, CL, CO2, GLUCOSE, Medica l Branch BUN, CREATININE, CA) POCT GLUCOSE (AUTOMATED) 2021-03-11 12:35:00 Bradford Paul Uni versity of [facility] POCT GLUCOSE (AUTOMATED) 2021-03-11 01:33:00 Bradford Paul Uni versity of [facility] POCT GLUCOSE (AUTOMATED) 2021-03-10 20:49:00 Bradford Paul [facility] POCT GLUCOSE (AUTOMATED) 2021-03-10 16:30:00 Bradford Paul [facility] POCT GLUCOSE (AUTOMATED) 2021-03-10 12:56:00 Bradford Paul [facility] MAGNESIUM 2021-03-10 10:12:00 Amy [facility] TROPONIN I 2021-03-10 10:12:00 Amy [facility] BASIC METABOLIC PANEL 2021-03-10 10:12[facility] ([facility], K, CL, CO2, GLUCOSE, Medica l Branch BUN, CREATININE, CA) N-TERMINAL PRO-BNP 2021-03-10 10:12:00 Amy [facility] HB ECG ROUTINE & RHYTHM 2021-03-10 10:08:12 Amy [facility] POCT GLUCOSE (AUTOMATED) 2021-03-10 01:53:00 Bradford Paul [facility] POCT GLUCOSE (AUTOMATED) 2021-03-09 21:41:00 Bradford Paul [facility] POCT GLUCOSE (AUTOMATED) 2021-03-09 16:59:00 Bradford Paul [facility] POCT GLUCOSE (AUTOMATED) 2021-03-09 13:45:00 Bradford Paul [facility] BASIC METABOLIC PANEL 2021-03-09 08:44:00 Bradford Paul [facility] (NA, K, CL, CO2, GLUCOSE, Medica l Branch BUN, CREATININE, CA) CBC WITH DIFF 2021-03-09 08:44:00 Bradford Paul [facility] D-DIMER 2021-03-09 01:19:00 Jordan Will [facility] CLOSTRIDIUM DIFFICILE 2021-03-09 01:19:[address] [facility] FECAL PATHOGENS BY PCR 2021-03-09 01:19:00 Prabhakar Childs [facility] XR CHEST 1 VW 2021-03-09 00:05:00 Jordan Will [facility] URINALYSIS 2021-03-08 18:40:00 Mina Wu [facility] URINE CULTURE 2021-03-08 18:40:00 Mina Wu [facility] COVID-19 (ID NOW RAPID 2021-03-08 18:24:00 [facility] Branch LAB ONLY COVID 2021-03-08 18:24:00 Mina Wu [facility] INTERPRETATION [facility] CT ABDOMEN PELVIS W 2021-03-08 17:34:31 Mina Wu [facility] CONTRAST [facility] CT CHEST PULMONARY 2021-03-08 17:34:[address] [facility] ANGIOGRAM [facility] FREE T4 2021-03-08 17:01:00 Singer Ionpolly Cardenas [facility] HB ECG ROUTINE & RHYTHM 2021-03-08 16:30:28 Ion Garcia [facility] STRIP [facility] LIPASE 2021-03-08 16:22:00 Singer [facility] TROPONIN I 2021-03-08 16:22:00 Singer [facility] THYROID STIMULATING 2021-03-08 16:22:00 Mina Wu [facility] HORMONE [facility] COMP. METABOLIC PANEL 2021-03-08 16:22:00 [facility] ([id number]) [facility] CBC WITH DIFF 2021-03-08 16:22:00 Singer Ion [facility] PROTHROMBIN TIME / INR 2021-03-08 16:22:00 Ion Garcia [facility] ACTIVATED PARTIAL 2021-03-08 16:22:00 Singer [facility] THRMPLAS YASMIN [facility] N-TERMINAL PRO-BNP 2021-03-08 16:22:00 Ibikunle, Folusho F [facility] HOSPITAL ADMISSION 2021-03-08 05:01:00 Doctor Unassigned, [facility] CAROTID DUPLEX BILATERAL 2021-02-22 20:19:16 Kera Ch [facility] - BY VASCULAR LAB [facility] POCT GLUCOSE (AUTOMATED) 2021-02-22 16:00:00 Tyron Reyes [facility] POCT GLUCOSE (AUTOMATED) 2021-02-22 12:52:00 Tyron Reyes [facility] URIC ACID 2021-02-22 09:49:00 Amy [facility] MAGNESIUM 2021-02-22 09:49:00 Amy [facility] COMP. METABOLIC PANEL 2021-02-22 09:49:00 Tyron Reyes [facility] ([id number]) [facility] CBC WITH DIFF 2021-02-22 09:49:00 Amy ned [facility] N-TERMINAL PRO-BNP 2021-02-22 09:49:00 Amy ned [facility] POCT GLUCOSE (AUTOMATED) 2021-02-22 02:15:00 Tyron Reyes [facility] POCT GLUCOSE (AUTOMATED) 2021-02-21 21:16:00 Tyron Reyes [facility] POCT GLUCOSE (AUTOMATED) 2021-02-21 16:34:00 Tyron Reyes [facility] POCT GLUCOSE (AUTOMATED) 2021-02-21 13:03:00 Tyron Reyes [facility] OSMOLALITY URINE 2021-02-21 11:03:00 Amy ned [facility] LEGIONELLA URINARY 2021-02-21 11:03:00 Tyron Reyes [facility] ANTIGEN [facility] URINE CULTURE 2021-02-21 11:03:00 Amy ned [facility] URIC ACID 2021-02-21 09:10:00 Amy ned [facility] MAGNESIUM 2021-02-21 09:10:00 Tyron Reyes [facility] OSMOLALITY, SERUM OR 2021-02-21 09:10:00 Amy ned [facility] PLASMA [facility] TROPONIN I 2021-02-21 09:10:00 Amy ned [facility] COMP. METABOLIC PANEL 2021-02-21 09:10:00 Tyron Reyes [facility] ([id number]) [facility] SEDIMENTATION RATE 2021-02-21 09:10:00 Amy ned [facility] CBC WITH DIFF 2021-02-21 09:10:00 Amy [facility] N-TERMINAL PRO-BNP 2021-02-21 09:10:00 Amy ned [facility] CT ABDOMEN PELVIS W 2021-02-21 09:06:17 Amy ned [facility] CONTRAST [facility] XR SHOULDER 2+ VW RIGHT 2021-02-21 09:05:04 Tyron Reyes [facility] CT HEAD WO CONTRAST 2021-02-21 09:04:43 Amy ned [facility] POCT GLUCOSE (AUTOMATED) 2021-02-21 07:42:00 Tyron Reyes [facility] VITAMIN B12, LEVEL 2021-02-21 05:53:00 Amy ned [facility] TROPONIN I 2021-02-21 05:53:00 Amy ned [facility] IRON PANEL 2021-02-21 05:53:00 Amy ned [facility] PROTHROMBIN TIME / INR 2021-02-21 05:53:00 Amy ned [facility] VITAMIN D, 25-OH 2021-02-21 05:53:00 Amy [facility] PROCALCITONIN 2021-02-21 05:53:00 Amy [facility] POCT GLUCOSE (AUTOMATED) 2021-02-21 05:52:00 Prabhakar Childs [facility] XR FOREARM 2 VW RIGHT 2021-02-20 22:57:20 Jordan Walsh [facility] XR HUMERUS 2 VW RIGHT 2021-02-20 22:57:20 Jordan Walsh [facility] HB ECG ROUTINE & RHYTHM 2021-02-20 22:38:40 Jordan Walsh [facility] URINALYSIS 2021-02-20 22:10:00 Jordan Walsh [facility] SODIUM, URINE RANDOM 2021-02-20 22:10:00 Tyron Reyes [facility] PROTEIN CREAT RATIO URINE 2021-02-20 22:10:00 [facility] (ID NOW RAPID 2021-02-20 22:10:[address] [facility] TESTING) Medical Branch LAB ONLY COVID 2021-02-20 22:10:[address] [facility] BLOOD CULTURE SCREEN 2021-02-20 21:10:00 Jordan Walsh [facility] LACTIC ACID WHOLE BLOOD 2021-02-20 21:10:00 Jordan Walsh [facility] BLOOD CULTURE SCREEN 2021-02-20 21:02:00 Jordan Walsh [facility] PHOSPHORUS 2021-02-20 21:02:00 Tyron Reyes [facility] CREATINE KINASE 2021-02-20 21:02:00 Tyron Reyes [facility] URIC ACID 2021-02-20 21:02:00 Tyron Reyes [facility] LIPASE 2021-02-20 21:02:00 Jordan Walsh [facility] MAGNESIUM 2021-02-20 21:02:00 Tyron Reyes [facility] FERRITIN SERUM 2021-02-20 21:02:00 Tyron Reyes [facility] TROPONIN I 2021-02-20 21:02:00 Jordan Walsh [facility] THYROID STIMULATING 2021-02-20 21:02:00 Tyron Reyes [facility] HORMONE Medical Branch COMP. METABOLIC PANEL 2021-02-20 21:02:00 Jordan Walsh [facility] ([id number]) Medical Branch LIPID PANEL ([id number])(TOTAL 2021-02-20 21:02:00 Tyron Reyes [facility] CHOLESTEROL, Medical Branch TRIGLYCERIDES, HDL) CBC WITH DIFF 2021-02-20 21:02:00 Jordan Walsh [facility] GLYCOSYLATED HEMOGLOBIN 2021-02-20 21:02:00 Tyron Reyes [facility] (A1C) Medical Branch N-TERMINAL PRO-BNP 2021-02-20 21:02:00 Jordan Walsh [facility] XR CHEST 1 VW 2021-02-20 20:58:38 Jordan Walsh [facility] EKG-12 LEAD 2021-02-20 20:52:14 Doctor Unassigned, [facility] [place] ASSIGNMENT OF BENEFITS 2021-02-20 20:48:04 Doctor Unassigned, [facility] Name [facility] [place] NOTICE OF PRIVACY 2021-02-20 20:47:37 Doctor Unaaddyigned, [facility] PRACTICES [facility] CONSENT/REFUSAL FOR 2021-02-20 20:47:11 Doctor Joceline, [facility] DIAGNOSIS AND TREATMENT [facility] [place] REPORT OF PROCEDURE - 2020-11-29 14:12:20 Amor Muller [facility] END[facility] Center CYTOLOGY REQUEST 2020-11-29 14:08:18 Amor Muller [facility] CYTOLOGY 2020-11-29 14:08:00 Amor Muller [facility] UPPER ENDOSCOPY,FNA 2020-11-29 13:50:00 Amor Muller [facility] W/ULTRASOUND Center POCT-GLUCOSE METER 2020-11-29 11:45:00 Amor Muller [facility] Plan of Care Planned Activity Planned Date Details Comments Source Future Scheduled 2021-11-27 COVID-19 VACCINE (1) Met [facility] Test 23:55:17 [code = COVID-19 VACCINE [...] 00:00:00 (1 of 1 - Medical Center [id number] PCV13) [code = PNEUMOCOCCAL 65+ YRS (1 of 1 - [id number] PCV13)] Future Scheduled 1998 PNEUMOCOCCAL 65+ YRS [facility] Test 00:00:00 (1 of 1 - [facility] Center [id number] PCV13) [code = PNEUMOCOCCAL 65+ YRS (1 of 1 - ELTF16_Okkmvmj PCV13)] Future Scheduled 1983 SHINGLES VACCINES (1 [...] Type Clinicians Facility Department ID 2021-08-18 Emergency [facility] [id number] Univers 20:31:48 [facility] 2021-07-27 Outpatient RENZO, [facility] Surgery [id number] SLE 00:46:32 AMOR 2021-06-19 Outpatient SRAVANI YATES MDA [id number] 16:55:25 CRICKET bill 2022-03-14 2022-03-14 Outpatient Chris PUENTES [facility] [id number] Univers 10:20:00 10:20:[id number] [facility] 2022-03-14 2022-03-14 Outpatient Chris PUENTES [facility] [id number] Univers 10:20:00 10:20:[address] [facility] 2021-09-20 2021-09-20 Outpatient JACE ADKINS MDA MDA [id number] 09:41:37 10:28:58 ASHLEY bill 2021-08-23 2021-08-23 Outpatient JACE BENITEZ MDA MDA [id number] 11:09:34 12:02:10 VANI bill 2021-07-24 2021-07-24 Outpatient JACE BENITEZ MDA MDA [id number] 09:57:59 11:35:29 VANI bill 2021-07-11 2021-07-11 Outpatient JACE BENITEZ MDA MDA [id number] 07:24:23 16:14:43 VANI bill 2021 2021 Outpatient JACE LASSITER MDA [id number] 09:43:10 09:43:10 Dani bill 2021-07-04 2021-07-04 Outpatient JACE BENITEZ MDA MDA [id number] 08:03:03 12:45:35 VANI bill 2021-06-21 2021-06-21 Outpatient JACE ADKINS MDA MDA [id number] 09:37:53 11:15:25 ASHLEY bill 2021-06-21 2021-06-21 Outpatient JACE ADKINS MDA MDA [id number] MD 09:31:19 09:31:25 ASHLEY bill 2021-06-11 2021-06-11 Travel 1.2.840.1 [id number] Methodi 00:00:00 00:00:[id number] 3.430.2.7 0.2.7.3.698 Ho spita .[id number] 084.8 l .8 2021-04-18 2021-04-18 Outpatient DIMA [facility] [id number] Univers 14:00:00 14:00:[id number] [facility] 2021-04-18 2021-04-18 Outpatient R DIMA [facility] [id number] Univers 14:00:00 14:00:[address] [facility] 2021-03-14 2021-03-14 Transition Jaren Bullard [id number] Univers 00:00:00 00:00:00 of Care Tamika Zamudio [id number] i [id number] [phone] [facility] 403 Branch 2021-03-08 2021-03-13 Emergency Mina Wu [facility] 1.2. [id number] [id number] Univers 11:13:00 14:30:00 Bradford Paul [id number] it[id number] [id number] [facility] 081 Branch 2021-03-12 2021-03-12 [facility] [id number] Univers 08:30:00 08:30:00 SENDIL [id number] ity [facility] 2021-03-12 2021-03-12 Outpatient R [facility] [id number] Univers 08:30:00 08:30:00 SENDIL ity [facility] 2021-03-08 2021-03-08 [facility] [id number] Univers 00:00:00 00:00:00 Sendil Kandi Marrufo [id number] [id number] [id number] [address] 2021-03-06 2021-03-06 Office Dima [facility] 1.2.840.114 [id number] Univers 13:42:37 14:43:04 Visit Sendil Kandi Marrufo [id number] [id number] [phone] Ne dic[address] 2021-03-06 2021-03-06 Outpatient R [facility] [id number] Univers 14:00:00 14:00:00 SENDIL [id number] ity [facility] 2021-03-06 2021-03-06 Outpatient R DIMA [facility] [id number] Univers 14:00:00 14:00:00 SENDIL ity [facility] 2021-03-05 2021-03-05 Office [facility] 1.2.840.114 [id number] Univers 15:09:13 16:42:02 Visit Fran RAY [id number] i ty of [place]2.[place] [phone] [facility] 144 Branch 2021-03-05 2021-03-05 Outpatient Chris DEMETRIUS [facility] [id number] Univers 15:15:00 15:15:00 FRAN ity of [facility] 2021-02-25 2021-02-25 Transition Jaren Arambula 1.2.840.114 [id number] Univers 00:00:00 00:00:00 of Care Luis Felipe Figueroa Robb [id number] ity of [id number] [place] [phone] [facility] 403 Branch 2021-02-20 2021-02-22 Hospital Jordan Walsh [facility] 1.2.840.11 [id number] Univers 14:56:00 17:10:00 Encounter Prabhakar Childs [id number] ity of Tyron Reyes [id number] [facility] [id number] [facility] 081 Branch 2021-02-20 2021-02-20 Emergency X KENYETTA [facility] ERT [id number] Univers 14:56:00 14:56:00 JORDAN ity [facility] 2020-11-29 2020-11-29 Hospital JACE Muller [facility] [id number] 09:49:00 15:37:00 Encounter [facility] 2020-11-29 2020-11-29 Anesthesia Vandana Moran [facility] [id number] [facility] 13:55:00 14:17:00 Event Ronda Joseph [facility] 2020-11-29 2020-11-29 Surgery Renzo [facility] [id number] 12:00:00 13:00:00 [facility] 2020-11-29 2020-11-29 Travel [facility] [id number] [facility] 00:[facility]:00 00:00:00 [facility] 2020-11-26 2020-11-26 Hospital [facility] [id number] 11:40:00 23:59:00 Encounter [facility] 2020-11-26 2020-11-26 Outpatient EL SLEH SLE [id number] SLE 00:00:00 00:00:00 2020-11-26 2020-11-26 Travel [facility] [id number] [facility] 00:[facility]:00 00:00:00 [facility] Results Test Description Test Time Test Comments Results Result Comments Source POCT GLUCOSE (AUTOMATED) 2021-03-13 17:08:53 Test Item Value Reference Range Interpretation Comme nts POCT GLU (test code = 3706290503) 125 mg/dL 70-110 H Lab Interpretation (test code = 24074-9) Abnormal [facility] GLUCOSE (AUTOMATED)2021-03-13 13:43:14 Test Item Value Reference Range Interpretation Comments POCT GLU (test code = 3400018036) 102 mg/dL 70-110 Lab Interpretation (test code = Normal 43336-7) [facility] GLUCOSE (AUTOMATED)2021-03-13 01:32:16 Test Item Value Reference Range Interpretation Comments POCT GLU (test code = 5839915394) 151 mg/dL 70-110 H Lab Interpretation (test code = Abnormal 27514-7) [id number] 22:10:14 Test Item Value Reference Range Interpretation Comments NT-proBNP (test code 1680 pg/mL See_Comment H [Autom ated = 5459216007) message] The system which generated this result transmitted reference range : <=450. The reference range was not used to interpret this result as normal/abnormal . CARL (test code = CARL) Biotin has been reported to cause a negative bias, interpret results relative to patient's use of biotin. Lab Interpretation Abnormal (test code = 10161-5) [facility] GLUCOSE (AUTOMATED)2021-03-12 21:33:57 Test Item Value Reference Range Interpretation Comments POCT GLU (test code = 9589847191) 182 mg/dL 70-110 H Lab Interpretation (test code = Abnormal 49913-8) [facility] (NA, K, CL, CO2, GLUCOSE, BUN, CREATININE, CA)2021-03-12 19:36:16 Test Item Value Reference Range Interpretation Comments NA (test code = 133 mmol/L 135-145 L 8666994217) K (test code = 4.7 mmol/L 3.5-5.0 0287572539) CL (test code = 104 mmol/L 98-108 2929864214) CO2 TOTAL (test code = 20 mmol/L 23-31 L 6506222301) AGAP (test code = 2-16 4602916907) BUN (test code = 23 mg/dL 7-23 0341100804) GLUCOSE (test code = 210 mg/dL 70-110 H 0345302609) CREATININE (test code = 1.20 mg/dL 0.50-1.04 H 9972975662) CALCIUM (test code = 9.2 mg/dL 8.6-10.6 0213530117) eGFR (test code = mL/min/1.73m2 1386475256) CARL (test code = CARL) Association of [...] tests). Lab Interpretation Abnormal (test code = 73502-6) [facility] GLUCOSE (AUTOMATED)2021-03-12 16:27:07 Test Item Value Reference Range Interpretation Comments POCT GLU (test code = 3859570468) 136 mg/dL 70-110 H Lab Interpretation (test code = Abnormal 21087-2) [facility] GLUCOSE (AUTOMATED)2021-03-12 12:46:34 Test Item Value Reference Range Interpretation Comments POCT GLU (test code = 3575426135) 93 mg/dL 70-110 Lab Interpretation (test code = Normal 46442-5) [facility] GLUCOSE (AUTOMATED)2021-03-12 10:18:23 Test Item Value Reference Range Interpretation Comments POCT GLU (test code = 7077212183) 143 mg/dL 70-110 H Lab Interpretation (test code = Abnormal 22379-0) [facility] GLUCOSE (AUTOMATED)2021-03-12 10:18:17 Test Item Value Reference Range Interpretation Comments POCT GLU (test code = 2963273556) 94 mg/dL 70-110 Lab Interpretation (test code = Normal 98662-1) [facility] GLUCOSE (AUTOMATED)2021-03-12 01:30:35 Test Item Value Reference Range Interpretation Comments POCT GLU (test code = 8487648982) 167 mg/dL 70-110 H Lab Interpretation (test code = Abnormal 81708-1) [facility] GLUCOSE (AUTOMATED)2021-03-11 21:25:48 Test Item Value Reference Range Interpretation Comments POCT GLU (test code = 2439953087) 145 mg/dL 70-110 H Lab Interpretation (test code = Abnormal 21354-7) [facility] METABOLIC PANEL (NA, K, CL, CO2, GLUCOSE, BUN, CREATININE, CA)2021-03-11 16:22:13 Test Item Value Reference Range Interpretation Comments NA (test code = 134 mmol/L 135-145 L 1106601348) K (test code = 3.3 mmol/L 3.5-5.0 L 5527753366) CL (test code = 103 mmol/L 98-108 2356545004) CO2 TOTAL (test code = 24 mmol/L 23-31 7705521472) AGAP (test code = 2-16 9447464687) BUN (test code = 25 mg/dL 7-23 H 2743427191) GLUCOSE (test code = 144 mg/dL 70-110 H 4302745312) CREATININE (test code = 1.18 mg/dL 0.50-1.04 H 0804421434) CALCIUM (test code = 8.9 mg/dL 8.6-10.6 5072627197) eGFR (test code = mL/min/1.73m2 8206331351) CARL (test code = CARL) Association of [...] tests). Lab Interpretation Abnormal (test code = 57750-2) [facility] [id number] 16:00:45COVID DMT InterpretationInterpretation/Recommendations: Molecular NAAT Tests for [...] testing the patient has had at [facility], including molecular NAAT testing (more commonly known as PCR testing and Rapid ID Now testing) and antibody testing. It does not take into account any testing that a patient has had outside of the [facility] medical record. [facility] LABORATORY SERVICESCOVID Resu [id number] Rapid ID NOW (no units) ? ? Date ? Value ? 03/08/2021 ? Not Detected ? ? ? 02/20/2021 ? Not Detected ? [facility]SE (AUTOMATED)2021-03-11 01:41:12 Test Item Value Reference Range Interpretation Comments POCT GLU (test code = 7008919739) 150 mg/dL 70-110 H Lab Interpretation (test code = Abnormal 62454-3) [facility] GLUCOSE (AUTOMATED)2021-03-10 20:54:33 Test Item Value Reference Range Interpretation Comments POCT GLU (test code = 4462837232) 152 mg/dL 70-110 H Lab Interpretation (test code = Abnormal 91332-5) [facility] GLUCOSE (AUTOMATED)2021-03-10 17:21:37 Test Item Value Reference Range Interpretation Comments POCT GLU (test code = 4143732085) 135 mg/dL 70-110 H Lab Interpretation (test code = Abnormal 95757-5) [facility] CenterFECAL PATHOGENS BY [id number] 14:47:37 Test Item Value Reference Range Interpretation Comments Campylobacter (jejuni, Negative Negative, coli and upsaliensis) Indeterminate, (test code = 01733-9) See comment Plesiomonas shigelloides Negative Negative, (test code = 48594-0) Indeterminate, See comment Salmonella (test code = Negative Negative, 11490-6) Indeterminate, See comment Yersinia enterocolitica Negative Negative, (test code = 94538-3) Indeterminate, See comment Vibrio (test code = Negative Negative, 01599-5) Indeterminate, See comment Vibrio cholerae (test Negative Negative, code = 17152-8) Indeterminate, See comment Enteroaggregative E. coli Negative Negative, (EAEC) (test code = Indeterminate, 61031-7) See comment Enteropathogenic E. coli Negative Negative, N/A, (EPEC) (test code = Indeterminate, 65481-8) See comment Enterotoxigenic E. coli Negative Negative, (ETEC) (test code = Indeterminate, 02320-2) See comment Shiga toxin-Producing E. Negative Negative, coli (STEC) (test code = Indeterminate, 13240-4) See comment Shigella/Enteroinvasive Negative Negative, E. coli (EIEC) (test code Indeterminate, = 00085-7) See comment Cryptosporidium (test Negative Negative, code = 49989-9) Indeterminate, See comment Cyclospora cayetanensis Negative Negative, (test code = 78990-1) Indeterminate, See comment Entamoeba histolytica Negative Negative, (test code = 06509-4) Indeterminate, See comment Giardia lamblia (test Negative Negative, code = 30438-1) Indeterminate, See comment Adenovirus F 40/41 (test Negative Negative, code = 78417-5) Indeterminate, See comment Astrovirus (test code = Negative Negative, 64762-0) Indeterminate, See comment Norovirus GI/GII (test Negative Negative, code = 43660-3) Indeterminate, See comment Rotavirus A (test code = Negative Negative, 70880-8) Indeterminate, See comment Sapovirus (test code = Negative Negative, 33691-8) Indeterminate, See comment CARL (test code = CARL) Negative:A negative result does not rule-out infection. ?This assay does not test for all potential infectious agents of diarrheal disease. Positive:A positive test result does not necessarily indicate the presence of viable organism. Lab Interpretation (test Normal code = 14983-9) [facility] CenterURINE [id number] 13:28:07 Test Item Value Reference Range Interpretation Comments URINE CULTURE (test No aerobic growth (< code = 630-4) 1000 CFU/mL) [facility] CenterPO[facility]SE (AUTOMATED)2021-03-10 13:02:24 Test Item Value Reference Range Interpretation Comments POCT GLU (test code = 2067822053) 91 mg/dL 70-110 Lab Interpretation (test code = Normal 32806-3) [facility] CenterTROPONIN [id number] 11:08:20 Test Item Value Reference Range Interpretation Comments TROPONIN I (test <0.012 See_Comment [Automated code = 3083863717) message] The system which generated this result [...] ? Lab Interpretation Normal (test code = 43675-4) [facility] CenterN-TERMINAL [id number] 11:05:18 Test Item Value Reference Range Interpretation Comments NT-proBNP (test code 1740 pg/mL See_Comment H [Autom ated = 9048649912) message] The system which generated this result transmitted reference range : <=450. The reference range was not used to interpret this result as normal/abnormal . CARL (test code = CARL) Biotin has been reported to cause a negative bias, interpret results relative to patient's use of biotin. Lab Interpretation Abnormal (test code = 24359-5) [facility] CenterBASI METABOLIC PANEL (NA, K, CL, CO2, GLUCOSE, BUN, CREATININE, CA)2021-03-10 10:56:38 Test Item Value Reference Range Interpretation Comments NA (test code = 133 mmol/L 135-145 L 7748967730) K (test code = 4.5 mmol/L 3.5-5.0 6559456925) CL (test code = 106 mmol/L 98-108 4400208517) CO2 TOTAL (test code = 23 mmol/L 23-31 6405187016) AGAP (test code = 2-16 9699135657) BUN (test code = 27 mg/dL 7-23 H 1934330367) GLUCOSE (test code = 112 mg/dL 70-110 H 7839143573) CREATININE (test code = 1.11 mg/dL 0.50-1.04 H 1683324932) CALCIUM (test code = 8.5 mg/dL 8.6-10.6 L 5431246779) eGFR (test code = mL/min/1.73m2 6330784531) CARL (test code = CARL) Association of [...] tests). Lab Interpretation Abnormal (test code = 79389-0) [facility] CenterMAGNESIUM2021-05-23 10:56:38 Test Item Value Reference Range Interpretation Comments MAGNESIUM (test code = 5430418983) 2.0 mg/dL 1.7-2.4 Lab Interpretation (test code = Normal 67572-4) [facility] CenterPO[facility]SE (AUTOMATED)2021-03-10 01:56:26 Test Item Value Reference Range Interpretation Comments POCT GLU (test code = 7379271150) 229 mg/dL 70-110 H Lab Interpretation (test code = Abnormal 43404-9) [facility] GLUCOSE (AUTOMATED)2021-03-09 22:09:58 Test Item Value Reference Range Interpretation Comments POCT GLU (test code = 4810375644) 141 mg/dL 70-110 H Lab Interpretation (test code = Abnormal 34584-3) [facility] GLUCOSE (AUTOMATED)2021-03-09 18:37:51 Test Item Value Reference Range Interpretation Comments POCT GLU (test code = 3592822083) 229 mg/dL 70-110 H Lab Interpretation (test code = Abnormal 90694-2) [facility] GLUCOSE (AUTOMATED)2021-03-09 13:56:35 Test Item Value Reference Range Interpretation Comments POCT GLU (test code = 6995400366) 181 mg/dL 70-110 H Lab Interpretation (test code = Abnormal 11941-3) [facility] Metabolic Panel (NA, K, CL, CO2, GLUCOSE, BUN, CREATININE, CA)2021-03-09 10:31:38 Test Item Value Reference Range Interpretation Comments NA (test code = 133 mmol/L 135-145 L 3440390386) K (test code = 3.9 mmol/L 3.5-5.0 7452556585) CL (test code = 104 mmol/L 98-108 8591827160) CO2 TOTAL (test code = 20 mmol/L 23-31 L 3308494419) AGAP (test code = 2-16 3777556855) BUN (test code = 24 mg/dL 7-23 H 4012343411) GLUCOSE (test code = 178 mg/dL 70-110 H 4736990647) CREATININE (test code = 1.14 mg/dL 0.50-1.04 H 4180219715) CALCIUM (test code = 9.1 mg/dL 8.6-10.6 6641030480) eGFR (test code = mL/min/1.73m2 9163496969) CARL (test code = CARL) Association of [...] tests). Lab Interpretation Abnormal (test code = 77998-0) [facility] with [id number] 09:24:40 Test Item Value Reference Range Interpretation Comments WBC (test code = See_Comment [Automated 9590-2) message] The sy stem which generated this result transmitted reference range : 4.30 - 11.10 10*3/?L. The reference range was not used to interpret this result as normal/abnormal . RBC (test code = See_Comment L [Automated 839-8) message] The sy stem which generated this [...] (test code = 50.2 fL 39.0-49.9 H 03228-1) RDW-CV (test code = 14.9 % 12.0-15.5 788-0) PLT (test code = See_Comment [Automated 777-3) message] The sy stem which generated this result transmitted reference range : 166 - 358 10*3/ ?L. The reference r cheyanne was not used to interpret this result as normal/abnormal . MPV (test code = 10.1 fL 9.5-12.9 14379-1) NRBC/100 WBC (test See_Comment [Automat ed code = 3666839401) message] The system which generated this result transmitted reference range : 0.0 - 10.0 /100 WBCs. The refer ence range was not u sed to interpret th is result as normal/abnormal . NRBC x10^3 (test code <0.01 See_Comment [Auto mated = 9853497808) message] The s ystem which generated this result transmitted reference range : 10*3/?L. The reference range was not used to interpret this result as normal/abnormal . GRAN MAT (NEUT) % 66.3 % (test code = 770-8) IMM GRAN % (test code 0.40 % = 2377356713) LYMPH % (test code = 28.5 % 736-9) MONO % (test code = 4.6 % 5905-5) EOS % (test code = 0.0 % 713-8) BASO % (test code = 0.2 % 706-2) GRAN MAT x10^3(ANC) 3.61 10*3/uL 1.88-7.09 (test code = 2676304100) IMM GRAN x10^3 (test <0.03 0.00-0.06 code = 3595037072) LYMPH x10^3 (test code 1.55 10*3/uL 1.32-3.29 = 731-0) MONO x10^3 (test code 0.25 10*3/uL 0.33-0.92 L = 742-7) EOS x10^3 (test code = <0.03 0.03-0.39 L 711-2) BASO x10^3 (test code <0.03 0.01-0.07 = 704-7) Lab Interpretation Abnormal (test code = 50599-1) [facility] CenterCLOSTRIDIUM DIFFICILE [id number] 07:37:08 Test Item Value Reference Range Interpretation Comments Clostridioides (Clostridium) Positive Negative A difficile (test code = 55896-4) Lab Interpretation (test code = Abnormal 19770-0) [facility] CenterXR CHEST 1 [id number] 02:33:53No active pulmonary disease. RL: 5611 END [...] normal.IMPRESSIONNo active pulmonary disease.RL: 5611END OF REPORT [facility] CenterD-[id number] 02:08:51 Test Item Value Reference Interpretation Comments Range D-DIMER (test code = See_Comment H [Autom ated 6490435038) message] The system which generated this result [...] diagnosis. Lab Interpretation Abnormal (test code = 88948-3) [facility] CenterURINALYSIS2021-05-21 19:36:24 Test Item Value Reference Range Interpretation Comments APPEARANCE (test code = Clear Clear 0509012365) COLOR (test code = Yellow Yellow 5790052402) PH (test code = 4.8-8.0 6155542997) SP GRAVITY (test code = 1.003-1.030 2878605817) GLU U QUAL (test code = Normal Normal 9019795506) BLOOD (test code = Negative Negative 7257082439) KETONES (test code = 5 mg/dL Negative A 2044423145) PROTEIN (test code = Negative Negative 2887-8) UROBILIN (test code = Normal Normal 0359528428) BILIRUBIN (test code = Negative Negative 1854065931) NITRITE (test code = Negative Negative 8258000310) LEUK NATHAN (test code = Negative Negative 5889656362) RBC/HPF (test code = <1 See_Comment [Autom ated message] 5504932160) The system [employer] generated this result transmitted ref erence range: 0 - 3 HP F. The reference range was not used to int erpret this result as normal/abnormal . WBC/HPF (test code = <1 See_Comment [Autom ated message] 6132434445) The system [employer] generated this result transmitted ref erence range: 0 - 5 HP F. The reference range was not used to int erpret this result as normal/abnormal . BACTERIA (test code = Negative Negative 5995603632) Lab Interpretation (test Abnormal code = 60267-9) [facility] CenterCOVID-19 (ID NOW RAPID TESTING)2021-03-08 19:25:38 Test Item Value Reference Range Interpretation Comments SARS-CoV-2 Rapid ID NOW Not Detected Not Detected (test code = 24406-6) CARL (test code = CARL) ID NOW COVID-19 Assay is an isothermal nucleic acid amplification test intended for the qualitative detection of nucleic acid from SARS-CoV-2 viral RNA in nasopharyngeal (SHIPPING AND RECEIVING COORDINATOR) specimens. It is used under Emergency Use [...] indicated. Lab Interpretation Normal (test code = 36364-0) [facility] CenterFREE [id number] 18:26:20 Test Item Value Reference Range Interpretation Comments FREE T4 (test code = See_Comment H [Autom ated message] 2988102876) The system [employer] generated this result transmitted ref erence range: 0.78 - 2 .20 ng/dL:. The ref erence range was not u sed to interpret this result as normal/abnor mal. Lab Interpretation (test Abnormal code = 56645-1) [facility] CenterCT ABDOMEN PELVIS W [id number] 18:17:23 1. ?No acute intra-abdominal abnormality. 2. [...] have reviewed this study and agree withtheabove report.[facility] CenterCT CHEST PULMONARY [id number] 18:05:18 No pulmonary emboli. Colonic diverticulosis and [...] pulmonary emboli.Colonic diverticulosis and a small hiatal hernia.[facility] CenterTHYROID STIMULATING [id number] 17:33:13 Test Item Value Reference Range Interpretation Comments TSH (test code = See_Comment [Automated message] 7607384377) The system [employer] generated this result transmitted ref erence range: 0.45 - 4 .70 mIU/L. The refe rence range was not u sed to interpret this result as normal/abnor mal. Lab Interpretation (test Normal code = 20217-5) [facility] CenterTROPONIN [id number] 17:14:54 Test Item Value Reference Range Interpretation Comments TROPONIN I (test <0.012 See_Comment [Automated code = 1398452294) message] The system which generated this result [...] ? Lab Interpretation Normal (test code = 07439-0) [facility] CenterN-TERMINAL [id number] 17:11:55 Test Item Value Reference Range Interpretation Comments NT-proBNP (test code 861 pg/mL See_Comment H [Autom ated = 0473151875) message] The system which generated this result transmitted reference range : <=450. The reference range was not used to interpret this result as normal/abnormal . CARL (test code = CARL) Biotin has been reported to cause a negative bias, interpret results relative to patient's use of biotin. Lab Interpretation Abnormal (test code = 31685-0) [facility] CenterCOMP. METABOLIC PANEL (15357)2021-03-08 17:02:50 Test Item Value Reference Range Interpretation Comments NA (test code = 136 mmol/L 135-145 8297404486) K (test code = 3.2 mmol/L 3.5-5.0 L 3146523095) CL (test code = 102 mmol/L 98-108 1996282236) CO2 TOTAL (test code = 24 mmol/L 23-31 1414351905) AGAP (test code = 2-16 6211731745) BUN (test code = 18 mg/dL 7-23 1643851180) GLUCOSE (test code = 80 mg/dL 70-110 8913395064) CREATININE (test code = 1.12 mg/dL 0.50-1.04 H 4179917256) TOTAL BILI (test code = 0.6 mg/dL 0.1-1.3 2914414325) CALCIUM (test code = 8.9 mg/dL 8.6-10.6 4767565972) T PROTEIN (test code = 5.8 g/dL 6.3-8.2 L 1835832351) ALBUMIN (test code = 3.3 g/dL 3.5-5.0 L 7829092313) ALK PHOS (test code = 83 U/L 34-122 1719364063) ALTv (test code = 14 U/L 5-35 2-6) AST(SGOT) (test code = 27 U/L 13-40 8996251870) eGFR (test code = mL/min/1.73m2 5635934283) CARL (test code = CARL) Association of [...] tests). Lab Interpretation Abnormal (test code = 48169-9) [facility] CenterLIPASE, [id number] 17:02:29 Test Item Value Reference Range Interpretation Comments LIPASE (test code = 6347944402) 189 U/L 0-220 Lab Interpretation (test code = Normal 42506-7) [facility] CenterCB WITH [id number] 17:00:16 Test Item Value Reference Range Interpretation [...] (test code = 50.5 fL 39.0-49.9 H 78060-6) RDW-CV (test code = 15.0 % 12.0-15.5 788-0) PLT (test code = See_Comment H [Automated 777-3) message] The sy stem which generated this result transmitted reference range : 166 - 358 10*3/ ?L. The reference r cheyanne was not used to interpret this result as normal/abnormal . MPV (test code = 9.7 fL 9.5-12.9 60267-2) NRBC/100 WBC (test See_Comment [Automat ed code = 4794462855) message] The system which generated this result transmitted reference range : 0.0 - 10.0 /100 WBCs. The refer ence range was not u sed to interpret th is result as normal/abnormal . NRBC x10^3 (test code <0.01 See_Comment [Auto mated = 3417299537) message] The s ystem which generated this result transmitted reference range : 10*3/?L. The reference range was not used to interpret this result as normal/abnormal . GRAN MAT (NEUT) % 24.4 % (test code = 770-8) IMM GRAN % (test code 0.30 % = 4140983926) LYMPH % (test code = 57.6 % 736-9) MONO % (test code = 14.8 % 5905-5) EOS % (test code = 2.0 % 713-8) BASO % (test code = 0.9 % 706-2) GRAN MAT x10^3(ANC) 2.31 10*3/uL 1.88-7.09 (test code = 3101560716) IMM GRAN x10^3 (test 0.03 10*3/uL 0.00-0.06 code = 6307135340) LYMPH x10^3 (test code 5.46 10*3/uL 1.32-3.29 H = 731-0) MONO x10^3 (test code 1.40 10*3/uL 0.33-0.92 H = 742-7) EOS x10^3 (test code = 0.19 10*3/uL 0.03-0.39 711-2) BASO x10^3 (test code 0.09 10*3/uL 0.01-0.07 H = 704-7) Lab Interpretation Abnormal (test code = 98917-5) [facility] CenteraPTT2021-05-21 17:00:11 Test Item Value Reference Range Interpretation Comments APTT Patient (test See_Comment [Automat ed code = 3173-2) message] The system which generated this result transmitted reference range : 23 - 38 Seconds . The reference range was not used to interpr et this result as normal/abnormal . CARL (test code = CARL) The [facility] patient population mean normal value for aPTT is 30 seconds. Lab Interpretation Normal (test code = 52442-0) [facility] CenterPROTHROMBIN TIME / [id number] 16:58:08 Test Item Value Reference Range Interpretation Comments PROTIME PATIENT (test See_Comment [Auto mated message] code = 5964-2) The system [employer] generated this result transmitted ref erence range: 12.0 - 1 4.7 Seconds. The re ference range was not u sed to interpret this result as normal/abnor mal. INR (test code = 6301-6) Nor mal INR <1.1; Warfarin Therap eutic range 2.0 to 3. 0 or 2.5 to 3.5, dep ending upon the indica tions. Lab Interpretation (test Normal code = 15268-0) [facility] CenterPOCT GLUCOSE (AUTOMATED)2021-02-22 17:14:54 Test Item Value Reference Range Interpretation Comments POCT GLU (test code = 7146948947) 228 mg/dL 70-110 H Lab Interpretation (test code = Abnormal 99969-9) [facility] CenterLAB ONLY COVID [id number] 15:07:04COVID DMT InterpretationInterpretation/Recommendations: Molecular NAAT Tests for [...] testing the patient has had at [facility], including molecular NAAT testing (more commonly known as PCR testing and Rapid ID Now testing) and antibody testing. It does not take into accountany testing that a patient has had outside of the [facility] medical record. [facility] LABORATORY SERVICESCOVID [id number]-UyT-1 Rapid ID NOW (no units) ? ? Date ? Value ? 02/20/2021 ? Not Detected ? [facility] LABORATORY SERVICES [facility] CenterPOCT GLUCOSE (AUTOMATED)2021-02-22 13:41:36 Test Item Value Reference Range Interpretation Comments POCT GLU (test code = 3523452597) 242 mg/dL 70-110 H Lab Interpretation (test code = Abnormal 83286-3) [facility] CenterURINE [id number] 12:26:08 Test Item Value Reference Range Interpretation Comments URINE CULTURE (test No aerobic growth (< code = 630-4) 1000 CFU/mL) [facility] CenterN-TERMINAL [id number] 10:40:25 Test Item Value Reference Range Interpretation Comments NT-proBNP (test code 1440 pg/mL See_Comment H [Autom ated = 0513024767) message] The system which generated this result transmitted reference range : <=450. The reference range was not used to interpret this result as normal/abnormal . CARL (test code = CARL) Biotin has been reported to cause a negative bias, interpret results relative to patient's use of biotin. Lab Interpretation Abnormal (test code = 20988-6) [facility]. METABOLIC PANEL (75696)2021-02-22 10:34:04 Test Item Value Reference Range Interpretation Comments NA (test code = 132 mmol/L 135-145 L 0287334047) K (test code = 4.7 mmol/L 3.5-5.0 7801947904) CL (test code = 105 mmol/L 98-108 3707856315) CO2 TOTAL (test code = 20 mmol/L 23-31 L 6446850549) AGAP (test code = 2-16 0443154149) BUN (test code = 22 mg/dL 7-23 4530050189) GLUCOSE (test code = 212 mg/dL 70-110 H 7752943329) CREATININE (test code = 1.13 mg/dL 0.50-1.04 H 4156176362) TOTAL BILI (test code = 0.2 mg/dL 0.1-1.9 3640915680) CALCIUM (test code = 7.8 mg/dL 8.6-10.6 L 1495416799) T PROTEIN (test code = 5.1 g/dL 6.3-8.2 L 4811740254) ALBUMIN (test code = 2.8 g/dL 3.5-5.0 L 9523227480) ALK PHOS (test code = 38 U/L 34-122 3669108322) ALTv (test code = 13 U/L 5-35 1742-6) AST(SGOT) (test code = 21 U/L 13-40 6769766292) eGFR (test code = mL/min/1.73m2 4552803234) CARL (test code = CARL) Association of [...] tests). Lab Interpretation Abnormal (test code = 56996-7) [facility] CenterMAGNESIUM2021-05-07 10:34:04 Test Item Value Reference Range Interpretation Comments MAGNESIUM (test code = 5413813087) 1.9 mg/dL 1.7-2.4 Lab Interpretation (test code = Normal 73983-7) [facility] CenterURIC [id number] 10:33:44 Test Item Value Reference Range Interpretation Comments URIC ACID (test code = 2155531406) 3.6 mg/dL 2.9-6.0 Lab Interpretation (test code = Normal 83381-4) [facility] WITH [id number] 10:04:39 Test Item Value Reference Range Interpretation Comments WBC (test code = See_Comment [Automated 0090-2) message] The sy stem which generated this result transmitted reference range : 4.30 - 11.10 10*3/?L. The reference range was not used to interpret this result as normal/abnormal . RBC (test code = See_Comment L [Automated 109-8) message] The sy stem which generated this [...] RDW-SD (test code = 49.0 fL 39.0-49.9 32593-5) RDW-CV (test code = 14.8 % 12.0-15.5 788-0) PLT (test code = See_Comment [Automated 777-3) message] The sy stem which generated this result transmitted reference range : 166 - 358 10*3/ ?L. The reference r cheyanne was not used to interpret this result as normal/abnormal . MPV (test code = 9.8 fL 9.5-12.9 36518-4) NRBC/100 WBC (test See_Comment [Automat ed code = 5202922631) message] The system which generated this result transmitted reference range : 0.0 - 10.0 /100 WBCs. The refer ence range was not u sed to interpret th is result as normal/abnormal . NRBC x10^3 (test code <0.01 See_Comment [Auto mated = 8034404797) message] The s ystem which generated this result transmitted reference range : 10*3/?L. The reference range was not used to interpret this result as normal/abnormal . GRAN MAT (NEUT) % 82.0 % (test code = 770-8) IMM GRAN % (test code 0.80 % = 4496315627) LYMPH % (test code = 10.2 % 736-9) MONO % (test code = 6.8 % 5905-5) EOS % (test code = 0.0 % 713-8) BASO % (test code = 0.2 % 706-2) GRAN MAT x10^3(ANC) 8.25 10*3/uL 1.88-7.09 H (test code = 5136938588) IMM GRAN x10^3 (test 0.08 10*3/uL 0.00-0.06 H code = 1620074423) LYMPH x10^3 (test code 1.03 10*3/uL 1.32-3.29 L = 731-0) MONO x10^3 (test code 0.68 10*3/uL 0.33-0.92 = 742-7) EOS x10^3 (test code = <0.03 0.03-0.39 L 711-2) BASO x10^3 (test code <0.03 0.01-0.07 = 704-7) Lab Interpretation Abnormal (test code = 69527-1) [facility] GLUCOSE (AUTOMATED)2021-02-22 02:20:17 Test Item Value Reference Range Interpretation Comments POCT GLU (test code = 0264063292) 318 mg/dL 70-110 H Lab Interpretation (test code = Abnormal 68137-2) [facility] B12, [id number] 21:50:20 Test Item Value Reference Range Interpretation Comments VIT B12 (test code = 434 pg/mL 240-930 0658308866) CARL (test code = CARL) Biotin has been reported to cause a positive bias, interpret results relative to patient's use of biotin. Lab Interpretation (test Normal code = 48781-7) [facility] GLUCOSE (AUTOMATED)2021-02-21 21:19:53 Test Item Value Reference Range Interpretation Comments POCT GLU (test code = 6104111408) 335 mg/dL 70-110 H Lab Interpretation (test code = Abnormal 01726-4) [facility] CenterLEGIONELLA URINARY ANTIGEN [id number] 19:47:22 Test Item Value Reference Range Interpretation Comments Legionella Urinary Negative Negative Antigen (test code = 6590889069) CARL (test code = CARL) Negative for [...] test. Lab Interpretation (test Normal code = 15861-3) [facility] CenterPROCALCITONIN2021-05-06 16:59:40 Test Item Value Reference Range Interpretation Comments Procalcitonin (test 0.08 ng/mL <0.07 H code = 9782300989) CARL (test code = CARL) INTERPRETATION OF [...] lung abscess/empyema. For further information please refer to:[email or web address] Lab Interpretation Abnormal (test code = 56840-2) [facility] CenterPO[facility] GLU[facility]SE (AUTOMATED)2021-02-21 16:58:53 Test Item Value Reference Range Interpretation Comments POCT GLU (test code = 0496315678) 353 mg/dL 70-110 H Lab Interpretation (test code = Abnormal 34074-7) [facility] CenterVITAMIN D, [id number] 16:35:33 Test Item Value Reference Range Interpretation Comments VIT D 25OH (test code = 27 ng/mL 25-80 53830-9) CARL (test code = CARL) Deficiency: <20 ng/mLInsufficiency : 20-24 ng/mLOptimal: 25-80 ng/mL Lab Interpretation (test Normal code = 03600-5) [facility] CenterOSMOLALITY [id number] 16:00:43 Test Item Value Reference Range Interpretation Comments OSMO U (test code = See_Comment [Automa roxanna message] 9589140139) The system [facility] generated this result transmitted ref erence range: 50-1,100 mOsm/kg. The re ference range was not u sed to interpret this result as normal/abnor mal. Lab Interpretation (test Normal code = 94846-0) [facility] CenterOSMOLALITY, SERUM OR [id number] 15:57:18 Test Item Value Reference Range Interpretation Comments OSMOLALITY (test code = See_Comment [Au tomated message] 6689733843) The system [facility] generated this result transmitted ref erence range: 278 - 30 5 mOsm/kg. The re ference range was not u sed to interpret this result as normal/abnor mal. Lab Interpretation (test Normal code = 39995-8) [facility] CenterSEDIMENTATION [id number] 14:17:02 Test Item Value Reference Range Interpretation Comments ESR (test code = See_Comment H [Automated message] 7033457353) The system [facility] generated this result transmitted ref erence range: 0 - 20 m m/HR. The reference r cheyanne was not used to interpret this result as normal/abnor mal. Lab Interpretation (test Abnormal code = 69834-5) [facility] CenterXR SHOULDER 2+ VW [id number] 13:53:22 Anterior dislocation of the right shoulder. [...] of the right shoulder.RL: 5611END OF REPORT [facility]PO[facility]SE ([facility]ATED)2021-02-21 13:09:09 Test Item Value Reference Range Interpretation Comments POCT GLU (test code = 3616687703) 209 mg/dL 70-110 H Lab Interpretation (test code = Abnormal 32992-1) [facility] CenterTROPONIN [id number] 12:13:42 Test Item Value Reference Range Interpretation Comments TROPONIN I (test 0.025 ng/mL See_Comment [Automated code = 6860160388) message] The system which generated this result [...] ? Lab Interpretation Normal (test code = 62332-5) [facility] CenterN-TERMINAL [id number] 12:10:24 Test Item Value Reference Range Interpretation Comments NT-proBNP (test code 1490 pg/mL See_Comment H [Autom ated = 3905331252) message] The system which generated this result transmitted reference range : <=450. The reference range was not used to interpret this result as normal/abnormal . CARL (test code = CARL) Biotin has been reported to cause a negative bias, interpret results relative to patient's use of biotin. Lab Interpretation Abnormal (test code = 67440-9) [facility] CenterCOMP. METABOLIC PANEL (75747)2021-02-21 12:09:43 Test Item Value Reference Range Interpretation Comments NA (test code = 131 mmol/L 135-145 L 4042229804) K (test code = 4.1 mmol/L 3.5-5.0 7751747184) CL (test code = 96 mmol/L 98-108 L 0535156651) CO2 TOTAL (test code = 26 mmol/L 23-31 7122378058) AGAP (test code = 2-16 8739660112) BUN (test code = 19 mg/dL 7-23 3511732062) GLUCOSE (test code = 90 mg/dL 70-110 0092105648) CREATININE (test code = 0.98 mg/dL 0.50-1.04 3877751328) TOTAL BILI (test code = 0.7 mg/dL 0.1-1.4 1489270352) CALCIUM (test code = 7.9 mg/dL 8.6-10.6 L 1635540099) T PROTEIN (test code = 5.4 g/dL 6.3-8.2 L 9799349545) ALBUMIN (test code = 3.0 g/dL 3.5-5.0 L 5697509222) ALK PHOS (test code = 37 U/L 34-122 7415765956) ALTv (test code = 13 U/L 5-35 1742-6) AST(SGOT) (test code = 35 U/L 13-40 1716961856) eGFR (test code = mL/min/1.73m2 6484782226) CARL (test code = CARL) Association of [...] tests). Lab Interpretation Abnormal (test code = 27555-2) [facility] CenterMAGNESIUM2021-05-06 12:05:19 Test Item Value Reference Range Interpretation Comments MAGNESIUM (test code = 5900463245) 1.7 mg/dL 1.7-2.4 Lab Interpretation (test code = Normal 94579-2) [facility] CenterURIC [id number] 12:04:59 Test Item Value Reference Range Interpretation Comments URIC ACID (test code = 4428374183) 4.0 mg/dL 2.9-6.0 Lab Interpretation (test code = Normal 63173-4) [facility] WITH [id number] 11:43:56 Test Item Value Reference Range Interpretation [...] RDW-SD (test code = 47.8 fL 39.0-49.9 45482-3) RDW-CV (test code = 14.8 % 12.0-15.5 788-0) PLT (test code = See_Comment [Automated 777-3) message] The sy stem which generated this result transmitted reference range : 166 - 358 10*3/ ?L. The reference r cheyanne was not used to interpret this result as normal/abnormal . MPV (test code = 10.2 fL 9.5-12.9 71866-4) NRBC/100 WBC (test See_Comment [Automat ed code = 3235442674) message] The system which generated this result transmitted reference range : 0.0 - 10.0 /100 WBCs. The refer ence range was not u sed to interpret th is result as normal/abnormal . NRBC x10^3 (test code <0.01 See_Comment [Auto mated = 3790780342) message] The s ystem which generated this result transmitted reference range : 10*3/?L. The reference range was not used to interpret this result as normal/abnormal . GRAN MAT (NEUT) % 81.3 % (test code = 770-8) IMM GRAN % (test code 0.70 % = 6172205129) LYMPH % (test code = 13.7 % 736-9) MONO % (test code = 3.0 % 5905-5) EOS % (test code = 0.6 % 713-8) BASO % (test code = 0.7 % 706-2) GRAN MAT x10^3(ANC) 4.41 10*3/uL 1.88-7.09 (test code = 3906962889) IMM GRAN x10^3 (test 0.04 10*3/uL 0.00-0.06 code = 4157541059) LYMPH x10^3 (test code 0.74 10*3/uL 1.32-3.29 L = 731-0) MONO x10^3 (test code 0.16 10*3/uL 0.33-0.92 L = 742-7) EOS x10^3 (test code = 0.03 10*3/uL 0.03-0.39 711-2) BASO x10^3 (test code 0.04 10*3/uL 0.01-0.07 = 704-7) Lab Interpretation Abnormal (test code = 82860-8) [facility] CenterCT ABDOMEN PELVIS W [id number] 09:25:19 No defined focal acute inflammatory process. [...] Degenerative changes in the lumbarspine RL: 109AF: 07753 End of report Examination: Computed tomography of [...] appropriate. Degenerative changes in the lumbarspineRL: 109AFC: 17586Dxb of report [facility] CenterCT HEAD WO [id number] 09:17:191. ?No acute intracranial abnormality. RL: 6200 AFC: 17705Luy of report. ORDERING PHYSICIAN: TYRON REYES CLINICAL [...] clear.IMPRESSION1. No acute intracranial abnormality.RL: 6200 AFC: 98786Hou of report. [facility] CenterPOCT GLUCOSE (AUTOMATED)2021-02-21 07:45:22 Test Item Value Reference Range Interpretation Comments POCT GLU (test code = 1834007876) 138 mg/dL 70-110 H Lab Interpretation (test code = Abnormal 47172-5) [facility] CenterTROPONIN [id number] 07:16:11 Test Item Value Reference Range Interpretation Comments TROPONIN I (test 0.031 ng/mL See_Comment [Automated code = 6910413611) message] The system which generated this result [...] ? Lab Interpretation Normal (test code = 61685-4) [facility] CenterIRON [id number] 07:13:30 Test Item Value Reference Range Interpretation Comments IRON (test code = 5935239322) 27 ug/dL 50-160 L TIBC (test code = 6220751914) 224 ug/dL 250-410 L % FE SAT (test code = 3800250121) 12 % 20-50 L Lab Interpretation (test code = Abnormal 01371-4) [facility] CenterPROTHROMBIN TIME / [id number] 06:48:08 Test Item Value Reference Range Interpretation Comments PROTIME PATIENT (test See_Comment [Auto mated message] code = 5964-2) The system [employer] generated this result transmitted ref erence range: 12.0 - 1 4.7 Seconds. The re ference range was not u sed to interpret this result as normal/abnor mal. INR (test code = 6301-6) Nor mal INR <1.1; Warfarin Therap eutic range 2.0 to 3. 0 or 2.5 to 3.5, dep ending upon the indica tions. Lab Interpretation (test Normal code = 69875-2) [facility] CenterFERRITIN [id number] 06:23:04 Test Item Value Reference Range Interpretation Comments FERRITIN (test code = 112.0 ng/mL 11.0-264.0 9140415733) CARL (test code = CARL) Biotin has been reported to cause a negative bias, interpret results relative to patient's use of biotin. Lab Interpretation (test Normal code = 13206-5) [facility] CenterTHYROID STIMULATING [id number] 06:20:07 Test Item Value Reference Range Interpretation Comments TSH (test code = See_Comment [Automated message] 1058539839) The system [facility] generated this result transmitted ref erence range: 0.45 - 4 .70 mIU/L. The refe rence range was not u sed to interpret this result as normal/abnor mal. Lab Interpretation (test Normal code = 71105-9) [facility] CenterGLYCOSYLATED HEMOGLOBIN (A1C)2021-02-21 06:16:28 Test Item Value Reference Range Interpretation Comments HGB A1C (test code = 5.5 % 4.0-5.7 4548-4) CARL (test code = CARL) Reference RangesNormal: <5.7%Prediabetes: 5.7 - 6.4%Diabetes: > 6.5% Lab Interpretation (test Normal code = 52243-1) [facility] CenterPROTEIN CREAT RATIO URINE [id number] 05:59:37 Test Item Value Reference Range Interpretation Comments T. PROT U (test code = 2888-6) 17 mg/dL CREAT U (test code = 6589314994) 34.5 mg/dL Protein/Creatinine Ratio Urine 0.0-2.0 (test code = 0062362317) [facility] CenterPHOSPHORUS2021-05-06 05:59:02 Test Item Value Reference Range Interpretation Comments PHOSPHORUS (test code = 3272351992) 4.7 mg/dL 2.5-5.0 Lab Interpretation (test code = Normal 18855-3) [facility] CenterURIC [id number] 05:58:57 Test Item Value Reference Range Interpretation Comments URIC ACID (test code = 8612319842) 3.5 mg/dL 2.9-6.0 Lab Interpretation (test code = Normal 55992-8) [facility] CenterCREATINE [id number] 05:58:47 Test Item Value Reference Range Interpretation Comments CK (test code = 7145682647) 26 U/L 33-194 L Lab Interpretation (test code = Abnormal 40904-6) [facility] CenterMAGNESIUM2021-05-06 05:58:42 Test Item Value Reference Range Interpretation Comments MAGNESIUM (test code = 5825346955) 1.7 mg/dL 1.7-2.4 Lab Interpretation (test code = Normal 81766-8) [facility] CenterPOCT GLUCOSE (AUTOMATED)2021-02-21 05:57:21 Test Item Value Reference Range Interpretation Comments POCT GLU (test code = 0962587392) 59 mg/dL 70-110 L Lab Interpretation (test code = Abnormal 02205-4) [facility] CenterSODIUM, URINE [id number] 05:55:36 Test Item Value Reference Range Interpretation Comments NA URINE (test code = 3499080318) 69 mmol/L [facility] CenterLIPID PANEL (78845)(TOTAL CHOLESTEROL, TRIGLYCERIDES, HDL)2021-02-21 05:48:17 Test Item Value Reference Range Interpretation Comments CHOL (test code = 136 mg/dL 120-200 5712264317) HDL (test code = 75 mg/dL >50 7126332679) HDLC RATIO (test code = See_Comment [Au tomated message] 4577419170) The system [facility] generated this result transmit roxanna reference range : <=4.5. The refe rence range was not u sed to interpret th is result as normal/abnormal . TRIG (test code = 158 mg/dL 30-170 6175818844) LDL CHOL (test code = 29 mg/dL See_Comment [Auto mated message] 68188-2) The system [facility] generated this result transmit roxanna reference range : <=160. The refe rence range was not u sed to interpret th is result as normal/abnormal . VLDL (test code = 32 mg/dL 5-60 6042245002) Lab Interpretation (test Normal code = 93204-6) [facility] CenterXR HUMERUS 2 VW [id number] 00:20:13 1. ?No fracture. 2. Possible glenohumeral [...] an acute wristinjury dedicated wrist films recommended. Mimb, Radiant Results Inft User - 02/20/2021 7:21 [...] signedby Rei Poon MD at 02/20/2021 7:20 PMUnFreestone Medical CenterXR FOREARM 2 VW [id number] 00:20:13 1. ?No fracture. 2. Possible glenohumeral [...] an acute wristinjury dedicated wrist films recommended. Mimb, Radiant Results Inft User - 02/20/2021 7:21 [...] signedby Rei Poon MD at 02/20/2021 7:20 PMUnFreestone Medical Center [id number] 22:41:33 Test Item Value Reference Range Interpretation Comments APPEARANCE (test code = Hazy Clear A 6860754952) COLOR (test code = Yellow Yellow 5769549312) PH (test code = 4.8-8.0 0742728517) SP GRAVITY (test code = 1.003-1.030 1806296602) GLU U QUAL (test code = Normal Normal 5588437947) BLOOD (test code = Negative Negative 3123603269) KETONES (test code = 20 mg/dL Negative A 0310019565) PROTEIN (test code = Negative Negative 2887-8) UROBILIN (test code = Normal Normal 3387535680) BILIRUBIN (test code = Negative Negative 4823724036) NITRITE (test code = Negative Negative 9883967763) LEUK NATHAN (test code = 250/uL Negative A 8710653618) RBC/HPF (test code = See_Comment [Autom ated message] 2612457553) The system [facility] generated this result transmitted ref erence range: 0 - 3 HP F. The reference range was not used to int erpret this result as normal/abnormal . WBC/HPF (test code = See_Comment H [Autom ated message] 1416940823) The system [facility] generated this result transmitted ref erence range: 0 - 5 HP F. The reference range was not used to int erpret this result as normal/abnormal . BACTERIA (test code = Many Negative A 9563585754) MUCOUS (test code = Moderate Negative LPF A 8717300812) Lab Interpretation (test Abnormal code = 99017-7) [facility] CenterCOVID-19 (ID NOW RAPID TESTING)2021-02-20 22:40:01 Test Item Value Reference Range Interpretation Comments SARS-CoV-2 Rapid ID NOW Not Detected Not Detected (test code = 90981-0) CARL (test code = CARL) ID NOW COVID-19 Assay is an isothermal nucleic acid amplification test intended for the qualitative detection of nucleic acid from SARS-CoV-2 viral RNA in nasopharyngeal (SHIPPING AND RECEIVING COORDINATOR) specimens. It is used under Emergency Use [...] indicated. Lab Interpretation Normal (test code = 98798-7) [facility] CenterSAUD [id number] 21:58:52 Test Item Value Reference Range Interpretation Comments TROPONIN I (test 0.019 ng/mL See_Comment [Automated code = 0070285187) message] The system which generated this result [...] ? Lab Interpretation Normal (test code = 96292-6) [facility] CenterN-TERMINAL [id number] 21:53:51 Test Item Value Reference Range Interpretation Comments NT-proBNP (test code 1840 pg/mL See_Comment H [Autom ated = 3258077229) message] The system which generated this result transmitted reference range : <=450. The reference range was not used to interpret this result as normal/abnormal . CARL (test code = CARL) Biotin has been reported to cause a negative bias, interpret results relative to patient's use of biotin. Lab Interpretation Abnormal (test code = 96116-9) [facility] CenterCOMP. METABOLIC PANEL (74468)2021-02-20 21:50:26 Test Item Value Reference Range Interpretation Comments NA (test code = 129 mmol/L 135-145 L 1765190535) K (test code = 3.4 mmol/L 3.5-5.0 L 5925438631) CL (test code = 94 mmol/L 98-108 L 6880667496) CO2 TOTAL (test code = 24 mmol/L 23-31 3544136193) AGAP (test code = 2-16 2701569287) BUN (test code = 18 mg/dL 7-23 6191552031) GLUCOSE (test code = 62 mg/dL 70-110 L 0166791680) CREATININE (test code = 1.00 mg/dL 0.50-1.04 6001966689) TOTAL BILI (test code = 0.9 mg/dL 0.1-1.1 7170216736) CALCIUM (test code = 8.5 mg/dL 8.6-10.6 L 2439050956) T PROTEIN (test code = 5.8 g/dL 6.3-8.2 L 7334837572) ALBUMIN (test code = 3.4 g/dL 3.5-5.0 L 4296362872) ALK PHOS (test code = 49 U/L 34-122 8277163908) ALTv (test code = 15 U/L 5-35 1742-6) AST(SGOT) (test code = 28 U/L 13-40 4385679042) eGFR (test code = mL/min/1.73m2 3393163867) CARL (test code = CARL) Association of [...] tests). Lab Interpretation Abnormal (test code = 64291-8) [facility] CenterLIPASE2021-05-05 21:50:26 Test Item Value Reference Range Interpretation Comments LIPASE (test code = 6632585266) 86 U/L 0-220 Lab Interpretation (test code = Normal 19432-6) [facility] CenterCB WITH [id number] 21:25:40 Test Item Value Reference Range Interpretation Comments WBC (test code = See_Comment [Automated 1690-2) message] The sy stem which generated this result transmitted reference range : 4.30 - 11.10 10*3/?L. The reference range was not used to interpret this result as normal/abnormal . RBC (test code = See_Comment L [Automated 699-8) message] The sy stem which generated this [...] RDW-SD (test code = 47.0 fL 39.0-49.9 29892-0) RDW-CV (test code = 14.6 % 12.0-15.5 788-0) PLT (test code = See_Comment [Automated 777-3) message] The sy stem which generated this result transmitted reference range : 166 - 358 10*3/ ?L. The reference r cheyanne was not used to interpret this result as normal/abnormal . MPV (test code = 10.1 fL 9.5-12.9 28949-6) NRBC/100 WBC (test See_Comment [Automat ed code = 3412476377) message] The system which generated this result transmitted reference range : 0.0 - 10.0 /100 WBCs. The refer ence range was not u sed to interpret th is result as normal/abnormal . NRBC x10^3 (test code <0.01 See_Comment [Auto mated = 9683533251) message] The s ystem which generated this result transmitted reference range : 10*3/?L. The reference range was not used to interpret this result as normal/abnormal . GRAN MAT (NEUT) % 52.9 % (test code = 770-8) IMM GRAN % (test code 0.60 % = 9639103818) LYMPH % (test code = 35.0 % 736-9) MONO % (test code = 8.3 % 5905-5) EOS % (test code = 2.6 % 713-8) BASO % (test code = 0.6 % 706-2) GRAN MAT x10^3(ANC) 4.32 10*3/uL 1.88-7.09 (test code = 1107521542) IMM GRAN x10^3 (test 0.05 10*3/uL 0.00-0.06 code = 0250745364) LYMPH x10^3 (test code 2.86 10*3/uL 1.32-3.29 = 731-0) MONO x10^3 (test code 0.68 10*3/uL 0.33-0.92 = 742-7) EOS x10^3 (test code = 0.21 10*3/uL 0.03-0.39 711-2) BASO x10^3 (test code 0.05 10*3/uL 0.01-0.07 = 704-7) Lab Interpretation Abnormal (test code = 10132-1) [facility] CenterLactic Acid Whole [id number] 21:20:26 Test Item Value Reference Range Interpretation Comments LACTIC ACID (test code = 2.06 mmol/L 0.50-2.20 9552336193) Lab Interpretation (test code = Normal 25322-0) [facility] CenterXR CHEST 1 [id number] 21:07:40 No acute cardiopulmonary abnormality. Preliminary Report [...] reviewed this study and agree with theabove report.[facility] CenterCytology2021-02-13 14:27:00 Test Item Value Reference Range Interpretation Comments Case Report (test code Medical Cytology = 104) Report Case: [id number] Authorizing Provider: Amor Muller MD Collected: 11/29/2020 02:08 PM Ordering Location: [facility] Endoscopy Received: 11/30/2020 02:52 PM Services Pathologist: Moises Aguilar MD Specimen: Pancreas, pancreas cyst DIAGNOSIS (test code = g0nmgMMrGDZru2itQIOruS 3220) FuZzEwMzNcZnRuYmpcdWMx IHtccnRmMVxlcGljOTIwMF dwloStWUTqdBKoY8Hfezbd HHotGP3nVA5eiDhnhPDdbV IyZMBeBrWvz2ont125gXQi s7lyVCBRzmkwnEq1cEefE8 4oo0U2BsarM18zeNJrOVbp bGFpblxmczIwIFBBTkNSRU CHLWLLJ7IdMZtHWDXhAKYT LBByZ5gLB9DAUZ6UTNzbqS BvMTQwSW6yOrciTMNWS2OO KILRIMJUAgYEWLpSO39BKx NZXHBhclxmMCAgICAtIFRo ZSBtdWNpbiBzdGFpbiBzaG 08xqJ0XAIzGADmOSDsd7Yp yKQcw5MkhPu7fZU1ZQRukc 82FIU0TlRtk6O3IBT1QYBa KASzj1rwWIIxfQZrTlIfNw NcZnRuYmpcdWMxXGRlZmYw i8oos391gALfm2sgOUJgWy J7jWVkWNBmqIFpY073WMSg WNejy5vic0HtFJKnpWHoe7 W6GBBVoyhvyCy2qPonN46e o6E5AqbvT8ceVCArARElU5 CzXX6pFXTzEgk6OYD6JMP8 YAMxINGwF9GmOE9oJEMqaM XzAIf3f9pvsDzlCRCzKPJ5 f8bkQMtwitSlRK3fkc0bxT t7g4bcllLtTJWuIYLugYWQ OGOdZ8TziTneYh7iyWl5lC ibWhxzEGF3Udc9EW7njs60 qkd9aCiiJDMrvempBdF5LM hlMMAzebsqRLn7TXnuMAKt qKI0FCKvxDVlR8GeXFDxRQ 0asgu7HIY8AQtzASZjKvF7 NDBcaGVhZGVyeTcyMFxmb2 71IOI5MgQjOQ5oI5Jwk5K4 bH8wxPTiLVJuoDWqMzMcCA Yaxo6uzSWmITpqt9LcIHN0 taO7iPCaaDEcGLSdTcD4PK foUE4vdr12CHHmBZN7cc3e bGNccGdicmRyaGVhZFxwZ2 FwPBRxi762UKVfF4ZlZVWg i3F7djHhMeJdXDEmqSU5re W1REUrFB4iowgkh2tsIRca OBxcZOHojdA4keN0ZDStaR DgJ0UoaK6sOMPtIW1oszlx t4qjTGO6FCmuITVdGAE3Ia FlHOJvt6Ttvyw0NhLby1Py gDTqMXqbM01ez046ZJYjxl TiW2salNZfhloioLIyiyeg RQtyrwO0TZCwWOjmmeedVT PrFDdjS8qsGiChPEIyxMkm LIzhl0UwZOCkKAXoOrGebG ZpOJUmRnd2HPOucYIdANBh BfInZ9xoxzllTvCEUZNpe6 nwI8tqlBYYwTRrR9IaXXbn spDlEAziMTaiFZCvAMO0OV 0zTZYuKEUrhj84 COMMENT (test code = t1gfyCFtQKItpGA3KsZbRM 8712) Dkg4adv8TapLKomOAcSIzv zZTntfQpxe50aSW5xL85CP 0aSGStMxW7LNLgsqV0Ixk6 JKSuFWJzaBXaZ135s6dpa1 alftCykXA2qOhmGKCpIJEd YWluXGZzMjAgQSBmZXcgcm YsJ5BcucZlIASzzAEhESXc aKArLVclYPynH1XtiYReKE IbGA6oeXGvKFnsvPauuyLw IKzjlvqlfqSin9Z8zQT3rY 1fNI4qNKUrzHJmILYhhXmi zn0zoPEnHTWaejWitc9xIZ PzAPT3gSJjXAV6X3YjqJOv iFe0bMUpfYQeSDGxvRsmTp BccGFyfQ== CPT Code(s) (test code f6swbRPlUTZhoVP2JqIfNE = 3357) Hxo8yeb3CjaXLepHXsVRed lGNuweXbte95wVI7eR00QJ 5xSGYbYiC1QTUwivQ4Fwn3 DULcTHHkpNJjV432r3bhu9 dqilMfmXO8sZfsBZOuLAOk YWluXGZzMjAgODgxMDgsID i1CvYdKWWuad8= CLINICAL DATA (test y3xtdWShFWPwcMX3EbLdSM code = 3355) Ugc0eba0ZdlRHadDMuHUbj dSVvnaWrfi50rBS0cN47BB 3yDEHcIgS1NJGdfnR1Lsa5 NPZcGXMpxSQzX919d3hjh0 pzohCceXZ3aFkoDTCvFNFd RJewQDYkHiNxJr05IXKkRC kgVE04KSAnARMgRLKnc6yd OEsan1zjzwIglLihTIN3fU FaLI2vBWG5d9MptVUkblMs PphdJPTwaiI8fDJmvUGiK9 JlYXRpYyBoZWFkXHBhcn0= SPECIMEN SOURCE (test z0weuAYrXMPtgKV3JaWwDI code = 3377) Sdg1aos6QbaUXioOUuWAhd pLMdhgFgug00dOQ2lI11KA 5eCPEzOyP8PVAzjtN0Xgc4 GALvWGVgyTPxU293l4umz6 xrgfWxaAX2wZmnTVNbVHYb OJltEPQpXsAeJDZMW0AVLY NzR8xCEUloKWCVYRmyWp9K XHBhcn0= GROSS DESCRIPTION (test y3tasYQiHDGpaTX3CgFpDK code = 3366) Yqe1bdf5ReuESssETrUJnk mYIeskUohw15gXH6rC68GH 1gKUKiKqN4RNBtocQ3Nsc0 TVShLWPdoEEcJ600e9afy6 wirqGngHG2sNxjJWLiCHNo SCkfDKYxPxPnNwXcVCy5PF ChDHmzeXmeY8k5a6UpB1kj mmXmOIKsuTU6dMCnUYAedI BsZTsgcHJlcGFyZWQgNCBj kPMsx8IcneBiYK0aROEswT WocF4sL3u9j8BecF1jvXQy fQ== MICROSCOPIC DESCRIPTION t8knpAXqNVVxuVX2AePuAR (test code = 3371) Uph8leh2LexTBewVFyNEkl kAOzvoSuwf61jNA1iZ32UH 4pWILhPuS9HJAcdvP6Wfm0 HWZnWSEdhMJwM594i9bea0 pvyrLreHQ1dSvuDZKoOJCd MCwvLGCpMnFsKYXoIq7yeI VkLiBccGFyfQ== SPECIAL STUDIES (test s6qfoGLpWDJvfXG9KlHnXY code = 3376) Cav1qod8XsvLUqxBLbBYdt vYGbupIxnx88eMF2pG62MY 3jSLHfEtZ3OSPbruP6Xhn3 DJHeJEXylPQnQ496IXBhQI MtlZgqhgc5xT60KXMbbJ7m lWJvDXb8MMPfvzPffDctkQ 4dRoTnZaRsUnGYgTFviI38 MDKchyC0UZIla50ft7WdnC ndidAxFCSpMFbrR5v0BYYz UYHeNJE6t8Kzj9NyjD3ebF 1niJsloS4yxDExjLS7xyhr w7Rle3MgF6rkuZVvkJAxdy MuXHBhciBNdWNpbiBccGFy MEBudpQry0ixN7yqAUQyJF Y3CO6wgsYnPaKcUS6kcD43 s6Drv02sd78bbG0xcRVkwo CdU71txFOceQQnz0KnHDVj nnBoaDM3ZXMbQAkpwvkns7 x9mGF1pAZksBHppYF3sNJb mYXhTJUSzXZnSTBzq897bg 8jXWZcoRGbkhXedR6oLPeb gbkzlTAcWI1pXKZfOROrRH ClXB34euKyUH8mmSTjw7rn axJwiIRnv8TykAG6OKNyvK NbmqmmOa4jCG78ZKPhSFlc nL4owIFgroUlXS9xWH1sX6 T5eVIpKPIrjvQxo0ovEOjj ZP1rOQBwuDzgDjegOKByWY DifhNntZF1JGBdqWMhJJWs zVHiNBlghBYhg4nsm1SnY0 encIdqgJS3YYWeU3dazWSz iKU6MQR3lN6nDBgzdpReSD Eub0QqFAVoPWVfKuM5pB2b AJK0ZvSYgTwyUMM2VyO9YF qvRRDuCY2jITztUXsbR0Hp sLBmBAAYSHRvv7hnK4pdOF Rrq7YzyL8qgHI2ePYxQHSu hHY3AVCzPBX5MGqsxNHzMX NuDEKrbZDqwLVcOn7ylDNi W6LoS3iuyvVwjMRehCZ7iJ NjAYxyviMwBNL9YLDdlO3t FD1yOIBzmNHuQK9txZBuMH DyUWPpFINcWCSgz6RfRCOn gn30TIOhDnmegDrmLKRjWw 2vLj0xNJBnfdLjUTL5TgLW XG1xecnihJAliZvimn9aNK tgVIAXAMQtLOYmQFS1EXYa dA7uSEC6hJM7FXC3Q0qgV2 avXGJliwUvKJ0fWXNutFVv obUtTJyxGY0zxMDzLHCrk2 VdtwqvGSJuVGM8UVJ7MUra EXJuKWYfZj1jWTIprE0lC4 XmCQJ3htPba7OkCvTRuGBt fQ84eWZkfq77BLIkQLClH8 FyZGVkIGFzIGludmVzdGln SKLie05llRVulvKfp4Yqqr MrEPQiZ9izEMNlhRCnuKMa i5WkmY9qpPWlxgScDYJ9mK TrYQHgpZ6kCKLzxRsnCDTp sJ8iB7UbFDuwRk0pOFSfow mnOY2qrq82JI7cjsJoBY5q okIxXA77rwEcIaWjGUh3IU pGMSpAGLx8NSAclpMyxNVb kYGeLCIkrB8sbNZqIq9pxL BoaWdoIGNvbXBsZXhpdHkg X7maswffOMhjzHIfw7UsqM 6ahTT6LZJ2pO3fGwdhUCT7 Gross assessment was [facility] performed at ([facility], = 2777) Department of Pathology, [address] [place] [address], Technical component was [facility] performed at ([facility], = 2778) Department of Pathology, [address] [place] [address] 16[address], Professional component [facility] was performed at ([facility], code = 2779) Department of Pathology, [address] [place] [address], [facility] Test Item Value Reference Range Interpretation Comments Case Report (test code Medical Cytology = 104) Report Case: [id number] Authorizing Provider: Aomr Muller MD Collected: 11/29/2020 02:08 PM Ordering Location: [facility] Endoscopy Received: 11/30/2020 02:52 PM Services Pathologist: Moises Aguilar MD Specimen: Pancreas, pancreas cyst DIAGNOSIS (test code = [id number] 3220) FuZzEwMzNcZnRuYmpcdWMx IHtccnRmMVxlcGljOTIwMF avbuUcCZEooQRmN6Vjnmsl WQwhKL4iZA8vhAwvpXZqeH PeVUFzKuKim9vly907yVWz f7ysMQORgvojmQx0iOatV0 5dm4I0WhduF26pbVTeUIzy bGFpblxmczIwIFBBTkNSRU JIFHEDK3ThAAdTQJLgTSSZ XCImZ2tZB3SMLY7WNIagnY JzWZEaAS0cIdmkBGEFC1HO ZVMGSEVVAqSCZQiSV86ZWo NZXHBhclxmMCAgICAtIFRo ZSBtdWNpbiBzdGFpbiBzaG 17ijK5HTQbOVSiVIIov2Tj zWCeh7KdrUg0qPV3JEAhrt 26ZVI0SwXyq4C8TZJ4FGMm RYMuw5caFEFjpBBqIpHkRy NcZnRuYmpcdWMxXGRlZmYw k8rdq688mTOdn2foPOYoLc Q5ePZbSCXypVTlG532JWZc XQmvf1vcu1EhWEWdkIGuc0 A8PNODjgvwuZy2bHanZ01n l9W3FzyxZ9kwREPaNNYsY9 LiXP2wXDWaZmp7ADI3DNH4 PJTnELImQ2UaYT6oCPEchE ZjSJy8t6ioqLsgGQZxQEB4 t8lvQQjfwbOgLV4ryd8jmI z4v8lehuIzIWZaSFBaeRWS FACyV1VyoDipPy8xnJq5pF zeYlirAOB3Vcv5CS2gzv42 zbs1fCkoTWTygzvdGaW8ZV qyYBCcloigHWs9CHnsIAVq zWR3DPTwoIVpS5RjPZWpEG 9kvnu7WXZ7KBoxOUMtTaN9 NDBcaGVhZGVyeTcyMFxmb2 01WPI3EzQgYA3oU1Mrr6Q4 iX8poRQnJLDjkZVvRaBnJT Lvcw5udYOtGSwhs3GfVYD1 wuM3mRCdjKZoWEGfKjF9XD wgZR7pgn80SDEwORV4ff0a bGNccGdicmRyaGVhZFxwZ2 VlYZMvb651AXSdR3LrYBBt y3Z3aePqSoKeBWCfqOH0al F4QKHmWH2kqwaxc5emRPrb RVolPQXjrtH3ilQ9JWOryE OgU4RguJ8kRSVmUX1aulge i5gfBVN1MOclOOOnEXF0Kl KrTIJyp4Crjfo4OzVyy0Gr dLHaNSrkK46yz543PMVhow EgR8oagFLrketwvCTebsil XMbjdzP4OTAiVItxogvrPF VvKZeyE8xuIjIdBZMzhJur MPxki6ZyKYGnLBKjGvUwxP HfXTHdEpx4EPOilQHcOJRo MxYwD7orrvkmWaYLKBGvy9 jeF6aesTSRwYCgZ4DyKXex phZvRNveTDisHRSfTOK2TQ 6fZPVsDNYded83 COMMENT (test code = y4zhlQVlYIFopPH6LtGsPP 6852) Ujp9ras7TqaIMkpAOuSMyw pVCcizEjvt77fAH9aQ09OT 6zHWOmPdA3FAGwcgK3Ypx7 LBDgWPDiyPCwF537u9cnw1 phwfSbpSD0eVdoSLYwHSGo YWluXGZzMjAgQSBmZXcgcm UvY1IfuiWwXTBjwIWsMWTd pYLvNNjfOTgmK0EhxXCoBE TuEG0waQWzUMvrbPfcaeIj ONbdotrhcnXpa3Y2tWL0nU 2kDY9sWHIqmFGhESCapZii qt2biPBqJENkyrNmgg3aZI GtTMX2oZKfALK9P0HhzSAy xFc8bFNziGWiCGVvtFnuKf BccGFyfQ== CPT Code(s) (test code x3ltbXBaVQNxfZC0JlGhGH = 3357) Dtj2oop4JcwIDxnWIuLNwj uQNqurJejw51lRI3eO61NL 1hQNEcKgQ9SKGuzbA8Ulk1 TJOwBIJiyAAmD695v7zzw0 qmdiGevVO7hKjmLEHeLJBn YWluXGZzMjAgODgxMDgsID i2KqNlWXFzcc7= CLINICAL DATA (test w4ckdKShQZGnfKN5KgDrEE code = 3355) Rtx8vao9CfuMGrcKHcMQne iIYmxoDoiu60gDF5dK28EB 8rXTKoEcB4EEUgpoX9Yfn4 UBXyKUVmlDNrZ301o0pxc3 rywhEmrPT7rVjlFMGdABKh UQurWJIlHvLsAl59GSAwXI hsHI47FDWiJDPuHFVdg4kq AZgey2pnfoAkrDjcUHR1zU MsRO6dWXP7h6OygMMgooGz FavtOXSxrtG6bMXzqZNuY8 JlYXRpYyBoZWFkXHBhcn0= SPECIMEN SOURCE (test t8lefNPvFQXdkSC0ZkSdBL code = 3377) Xel2bby7HyqQRfnPFgRKwp aSEjcrAhyn18zYB5yT57KM 8yDSNeFvX9BEJmkmO9Khx3 FSEfICKepPNrT093i7qrb6 vdnnEawOL6zHvbZFLlUIVx SMtfMNWlDeKiHGJZV3NTPY UgF1bOJYejGNPNPVgsWd3R XHBhcn0= GROSS DESCRIPTION (test a4dawBWgQXXniZJ4JfZsWK code = 3366) Hym6cml4QuzQQhlOLlSQfw mHNznsFpps61tWZ7vU27JV 8mNADrSuD9ZFBvonX2Xsp7 MWVePONwxLLuD607f2hxb9 znkxOqyDY8mSmiLRUrEEXc GDhnBFWvZnJeKoHxAKf1PS RhOMvwkLxeW1p9x5HiB7yq mvLgXKXwxMI8jAJvKYBhlE BsZTsgcHJlcGFyZWQgNCBj wQJen2ZoubYxUZ2gIYVpdM FueT8eZ0y2q1UxnU5quLNp fQ== MICROSCOPIC DESCRIPTION g3qeaYMaUZDfrOT8HdGhNM (test code = 3371) Lvx8lgv0GifGYfjQGgJJza bBKvxmNvdt31lIQ6rK96OX 1lODXvLbJ4ZNUdgkA8Xhm7 KSViETQikLEfB840i7huw4 gtryHscMH6pSvuMQJgHKSy ZMwrXIUgHkUaUOMeQi7cbU VkLiBccGFyfQ== SPECIAL STUDIES (test t7wvaLMsQDPugNY2DpGpDU code = 3376) Nwu6ygc0QeeGKmjBIgLPrf gTBpqoQxlj81aUA2xD92WI 6tWOAcLpF6ZOJmfvS1Pfu1 MOPoQLKywVCiL080ECGmTS RhjZdgiww8wA13SZLpsL3m dYCxYKt2ERSxxgPjkBwixT 8oApTyXmYgAlCYjGRgmS44 PODaqtI7TQJta05kp4XzrS rigwQnCBKxQXktU3q0OFYk UAXoQDI0p7Ivl6KlcX0pwP 4ewSlxuQ8oqLRrlDN8poov d8Tyh2HgU7jjoMFnfKYrjn MuXHBhciBNdWNpbiBccGFy DEZqfvLcc8ndA6srWFAoEQ G0DK4rcdObNvNfAT0zaL39 g5Zev90nd20ioY9cxNLtnf ImP65hqJAguBNgn0GsDGAe ljQgqWT0RDJhVMcryhune5 b3uRO3rDGjnKKfiXO1jCPt gHUyTEZMhYIjMJJql757kw 2qCIAjcTIvywMiwO4aMVhw jkrwwTXnVH7zRPLjZFNvOO LmON47gkAoFO3jhSDwm4nv dbLfwQOew9QecYK7FMJxdW XisdvxLc2vFY79GIIfUExr fG9orHKuzmCuHA6bBQ5xP7 X4uPReOMIemhOob0ilKEcg XF9gNXUirGygZaouGDYjYL NasiTatQH2NVXlbGTzJYIc hJKeDMdzeLMbb5klt7UtN0 rtbFzsqRL3HWNhK9dnyLVe kIJ5EIY1dN5oXXqmhrGlNN Piq2RcBREzQOCjCtN1iL9i RTF0SmPJlFarFAO4QdZ1PC lzOXMlVB1tTUxoLMigQ9We tKKnJVMYIAVzd1exI2hfHV Jus3KukQ7qnHR2uDSkDCRc wVW9KRAlKVF1EYmoiVDdJF RcFTVzsDNhrOYkYv6bsJSl X6EnO1tdksFyrYXxgAC1tE ThOMhvajRkYOV4QANfsN9d EZ2vHEGhuJCrBM7erGTuGX HyPAUgVNJpGCYxi5JwCATh bw21KFFpGwjmmByaBYWyKr 8ePd3oIQJoqxFuTLW8KfDK TV3pycrqmDHwkFcloo6hUL fyLEJJWHLwPETtQEV0YRRz sU8aBPG5iTT9ZMQ1N6ilZ2 eqVIXdheJfTV4pYNMplEKo vtNnWCpzYA3qlNJhAPVtp4 FpoijxLHShOFV9PVC0NPuf AYNoAKNmAb2pQKSpyS5pE6 BuNSN4vyBac2MeUmZMgDZp nE30bKUhhf53KIBoQTHoB1 FyZGVkIGFzIGludmVzdGln EFPzv41tuXXejmUbf7Bhsd QoQGUtF0gxXPDvoAAamYZu v6VjfK0otOZsocSwESM7rW FoFUKbxZ8kIYGknGwgHXTe sY2aP8CvKErmXm7gZNIlfr ajRA3jce50ZY9yefQmKX3g lkQwGX34gpCsXrLyJCa0VO hMZMnKYGk9SDZygaIirOZd xVNeDGNqaV1wsGMvCx2koF BoaWdoIGNvbXBsZXhpdHkg H3qysxdaYZytmTSjf9TjsE 7uxTO8XHS9uX7lHubwUZI3 Gross assessment was [facility] performed at ([facility], = 2777) Department of Pathology, [address] [place] [address]25[address], Technical component was [facility] performed at ([facility], = 2778) Department of Pathology, [address] [place] [address], Professional component [facility] was performed at ([facility], code = 2779) Department of Pathology, [address] [place] [address], [facility] 14:27:00Medical Cytology Report Case: [id number] Aut horizing Provider: Amor Muller MD Collected: 11/29/2020 02:08 PM Ordering Location: [facility] Endoscopy Received: 11/30/2020 02:52 PM Services Pathologist: Moises Aguilar MD Specimen: Pancreas, pancreas cyst PANCREAS CYST, HEAD,FNA (CYTOSPINS): - NEGATIVE FOR MALIGNANCY - The mucin stain shows weak and focal positivity Signing Pathologist Direct Phone Line: [phone] signed by Moises Aguilar MD on 12/01/2020 at 2:27 PMA few reactive ductal epithelial cells are noted within a larger population of completely normal and non- reactive ductal epithelial cells. 15707, 020135.5 cm x 1.8 cm anechoic lesion suggestive [...] evaluated Immunohistochemistry technical testing was performed at [facility], Pathology Laboratory where it was [...] qualified to perform high complexity clinical laboratory testing.[facility], Department of Pathology, [address] [place] [address], [facility], [address] [place] [address], [facility], [address] [place] [address], SGKTGMCV [id number] 16:01:00 Test Item Value Reference Range Interpretation Comments Cytology (test code = See Separate Report 2629) [facility] [id number] 16:01:00 Test Item Value Reference Range Interpretation Comments Cytology (test code = See Separate Report 2629) [facility] [id number] 16:01:00 Test Item Value Reference Range Interpretation Comments CYTOLOGY RESULT POINTER See Separate Report (BEAKER) (test code = 2629) POC-Glucose [id number] 11:57:00 Test Item Value Reference Range Interpretation Comments POC-Glucose Meter (test 73 mg/dL 70-110 : TE STED AT [facility] code = 1538) [address] [facility], 770 30: Chief Operator Hydroformer/Techni robbie ID = [id number] for DHRUV, MARGARE T Lab Interpretation (test Normal code = 80367-9) [facility] [id number] 11:57:00 Test Item Value Reference Range Interpretation Comments POC-Glucose Meter (test 73 mg/dL 70-110 : TE STED AT [facility] code = 1538) [address] [facility], 770 30: Chief Operator Hydroformer/Techni robbie ID = [id number] for DHRUV, MARGARE T Lab Interpretation (test Normal code = 73596-8) [facility] [id number] 11:57:00 Test Item Value Reference Range Interpretation Comments POC-GLUCOSE METER 73 mg/dL 70-110 : TESTED A T [facility] 6720 (BEAKER) (test code = [facility], 1538) 12277: Chief Operator Hydroformer/Techni robbie ID = [id number] for RAZS ONHEIDIT
[2022-03-26] MEDS ORDERED: FENTANYL CITR 100 MCG/2 ML ONE (18:17)
[2022-03-26] MEDS ORDERED: NA CHLORIDE 0.9% 500 ML ONE (18:17)
[2022-03-26 18:58] LABS: Absolute Lymphocytes (CBC) 1.6 K/uL (0.7-4.9); Hematocrit 32.5 % (36.0-45.0); Lymphocytes % 20.8 % (15.3-44.8); MPV 7.1 fL (7.6-11.3); RBC Red Blood Cell Count 3.52 M/uL (3.86-4.86)
[2022-03-26 19:08] LABS: Albumin 2.8 g/dL (3.4-5.0); Potassium 4.4 mmol/L (3.5-5.1)
--- NOTE | 2022-03-26 20:13 | RAD REPORT ---
EXAM DESCRIPTION: CT - Abdomen Pelvis W Contrast - 03/26/2022 7:55 pm CLINICAL HISTORY: Abdominal pain COMPARISON: February 2022 TECHNIQUE: Computed axial tomography of the abdomen pelvis was obtained. 100 cc Isovue-300 was admin istered intravenously. Oral contrast was not requested which limits evaluation of bowel and appendix All CT scans are performed using dose optimization technique as appropriate and may include automated exposure control or mA/KV adjustment according to patient size. FINDINGS: Fatty liver The spleen, adrenals kidneys unremarkable 3.2 centimeter low-density mass within the pancreatic head unchanged. Two additional smaller low-dens ity pancreatic mass is unchanged. Moderate umbilical hernia Diverticula stem from the colon without evidence of diverticulitis. Hysterectomy Moderate amount of stool within the colon. 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
[2022-03-26 20:22] LABS: Urine Blood Negative (Negative); Urine Glucose Negative (Negative); Urine Protein Negative (Negative); Urine Specific Gravity 1.015 (1.005-1.030); Urine pH 8.5 (5.0-7.0)
[2022-03-26 20:53] LABS: Urine Amorphous Sediment TRACE /HPF (NONE SEEN); Urine Bacteria <20 /HPF (<20); Urine RBC NONE SEEN /HPF (NONE SEEN)
[2022-03-26] MEDS ORDERED: MINERAL OIL ENEMA 135 ML BTL PR ONE (21:30)
[2022-03-26] MEDS ORDERED: LACTULOSE 20 GM/30 ML UCUP ONE (21:31)
[2022-03-26 22:53] LABS: Bilirubin Total 0.4 mg/dL (0.2-1.0)
--- NOTE | 2022-03-27 00:35 | EDPHYS ---
Physician Documentation [facility] Name: Caridad Chadwick Age: 86 yrs Sex: Female : 1935 Arrival Date: 03/26/2022 Time: 17:35 Bed 13 Private MD: ED Physician Pablito Laura HPI: 03/26 18:00 This 86 yrs old Female presents to ER via EMS with complaints of Constipation - patient cp reports this is her 3rd visit in the past few weeks for the same complaint-sgst bm reported on 03/20/22. 18:00 The patient presents with abdominal pain in the lower abdomen. cp 18:00 Onset: The symptoms/episode began/occurred last week, and became worse today. cp Associated signs and symptoms: Pertinent positives: constipation, rectal pain, Pertinent negatives: blood in stools, chest pain, diarrhea, dysuria, fever, hematuria. Historical: - Allergies: 17:30 codeine sulfate; jg9 - Home Meds: 17:30 carvedilol 12.5 mg Oral tab 1 tab 2 times per day [Active]; duloxetine 30 mg Oral cpDR jg9 1 cap once daily [Active]; hydroxychloroquine 200 mg Oral tab 1 tab once daily [Active]; levothyroxine 100 mcg cap 1 cap once daily [Active]; metformin 500 mg Oral tab 1 tab 2 times per day [Active]; olmesartan 20 mg Oral tab 1 tab once daily [Active]; prednisone 5 mg/mL Oral conc once daily [Active]; Probiotic 20 billion cell Oral cap [Active]; rosuvastatin 5 mg Oral cpSP 1 cap at bedtime [Active]; sodium bicarbonate 325 mg Oral tab [Active]; - PMHx: 17:30 C DIFF; Cyst on pancreas; Diabetes - NIDDM; Diverticulitis; GERD; Hypertension; jg9 Hypothyroidism; Rheumatoid Arthritis; - Immunization history:: Adult Immunizations up to date. - Social history:: Smoking status: Patient denies any tobacco usage or history of. ROS: 18:05 Constitutional: Negative for body aches, chills, fever, poor PO intake. cp 18:05 Eyes: Negative for injury, pain, redness, and discharge. cp 18:05 Cardiovascular: Negative for chest pain, edema, palpitations. 18:05 Respiratory: Negative for cough, shortness of breath, wheezing. 18:05 Abdomen/GI: Positive for abdominal pain, constipation, rectal pain, Negative for vomiting, diarrhea, black/tarry stool, rectal bleeding, bowel incontinence. 18:05 : Negative for urinary symptoms. 18:05 Neuro: Negative for altered mental status, dizziness, headache, weakness. 18:05 All other systems are negative. Exam: 18:10 Constitutional: The patient appears in no acute distress, alert, awake, non-toxic, well cp developed, well nourished, in obvious pain, uncomfortable. 18:10 Head/Face: Normocephalic, atraumatic. cp 18:10 Eyes: Periorbital structures: appear normal, Conjunctiva: normal, no exudate, no injection, Sclera: no appreciated abnormality, Lids and lashes: appear normal, bilaterally. 18:10 ENT: External ear(s): are unremarkable, Nose: is normal, Mouth: Lips: moist, Oral mucosa: moist, Posterior pharynx: Airway: no evidence of obstruction, patent. 18:10 Chest/axilla: Inspection: normal. 18:10 Cardiovascular: Rate: normal, Rhythm: regular, Edema: is not appreciated, JVD: is not appreciated. 18:10 Respiratory: the patient does not display signs of respiratory distress, Respirations: normal, no use of accessory muscles, no retractions, labored breathing, is not present, Breath sounds: are clear throughout, no decreased breath sounds, no stridor, no wheezing. 18:10 Abdomen/GI: Inspection: abdomen appears normal, Bowel sounds: active, all quadrants, Palpation: soft, in all quadrants, moderate abdominal tenderness, in the right lower quadrant and left lower quadrant, rebound tenderness, is not appreciated, involuntary guarding, is not appreciated, Rectal exam: Stool: brown, fecal impaction, that is severe, Hernia: noted in the umbilical area, tenderness, that is mild. 18:10 Back: CVA tenderness, is absent. 18:10 Neuro: Orientation: to person, place \T\ time. Mentation: is normal, Motor: moves all fours, strength is normal, Sensation: is normal. Vital Signs: 17:30 BP 117 / 66; Pulse 66; Resp 20 S; Temp 97.7; Pulse Ox 96% on R/A; Weight 66.22 kg (R); jg9 Height 5 ft. 1 in. (154.94 cm) (R); Pain 10/10; 17:45 BP 159 / 65; Pulse 68; Resp 18 S; Pulse Ox 92% on R/A; Pain 10/10; jg9 18:00 BP 153 / 67; Pulse 68; Resp 14 S; Pulse Ox 93% on 2 lpm NC; jg9 18:45 BP 162 / 68; Pulse 65; Resp 16 S; Pulse Ox 90% on R/A; Pain 5/10; jg9 20:25 BP 149 / 88; Pulse 67; Resp 17; Pulse Ox 97% on 2 lpm NC; lg3 03/27 01:36 BP 152 / 71; Pulse 68; Resp 16; Pulse Ox 96% on R/A; lg3 03/26 17:30 Body Mass Index 27.59 (66.22 kg, 154.94 cm) jg9 MDM: 03/26 17:42 Patient medically screened. cp 18:00 Differential diagnosis: bowel obstruction, urinary tract infection, constipation, fecal cp impaction, dehydration. 03/27 00:33 Data reviewed: vital signs, nurses notes, lab test result(s), radiologic studies, CT cp scan. 00:33 Counseling: I had a detailed discussion with the patient and/or guardian regarding: the cp historical points, exam findings, and any diagnostic results supporting the discharge/admit diagnosis, lab results, radiology results, to return to the emergency department if symptoms worsen or persist or if there are any questions or concerns that arise at home. Response to treatment: the patient's symptoms have markedly improved after treatment. ED course: VSS. Patient manually disimpacted by myself in ED with large amount stool removed. Will discharge to home with RX for stool softener and to continue to monitor. 03/26 17:45 Order name: CBC with Diff; Complete Time: 19:11 cp 03/26 22:29 Interpretation: Normal except: RBC 3.52; HGB 11.1; HCT 32.5; RDW 15.4; MPV 7.1. cp 03/26 17:45 Order name: CMP; Complete Time: 22:56 cp 03/26 19:11 Interpretation: Normal except: NA 130; CL 95; GLUC 187; BUN 22; GFR 41; ALB 2.8. cp 03/26 17:45 Order name: Lipase; Complete Time: 22:56 cp 03/26 17:45 Order name: Urine Microscopic Only; Complete Time: 22:29 cp 03/26 17:45 Order name: CT Abd/Pelvis - IV Contrast Only; Complete Time: 20:20 cp 03/26 20:22 Order name: Urine Dipstick-Ancillary; Complete Time: 22:29 EDMS 03/26 17:45 Order name: IV Saline Lock; Complete Time: 18:09 cp 03/26 17:45 Order name: Labs collected and sent; Complete Time: 18:09 cp 03/26 17:45 Order name: Urine Dipstick-Ancillary (obtain specimen); Complete Time: 20:24 cp 03/26 18:19 Order name: Labs - recollect needed: recollect green and lavender top; Complete Time: bd 18:58 Administered Medications: 03/26 18:20 Drug: fentaNYL (PF) 25 mcg {Note: RASS-0.} Route: IVP; Site: left forearm; j9 18:58 Follow up: Response: No adverse reaction; Pain is decreased; RASS: Alert and Calm (0) [facility] [place] 18:20 Drug: NS 0.9% 500 ml Route: IV; Rate: 100 ml/hr; Site: left forearm; jg9 03/27 01:38 Follow up: Response: No adverse reaction; IV Status: Completed infusion; IV Intake: lg3 500ml 03/26 21:41 Drug: Lactulose 20 grams Volume: 30 ml; Route: PO; lg3 21:41 Follow up: Response: No adverse reaction lg3 21:41 Drug: Fleet Enema (sodium phosphate) 133 ml Route: SD; lg3 21:41 Follow up: Response: No adverse reaction lg3 Disposition Summary: 03/27/22 00:34 Discharge Ordered Location: Home cp Problem: new cp Symptoms: have improved cp Condition: Stable cp Diagnosis - Constipation, unspecified cp - Fecal impaction cp Followup: cp - With: Private Physician - When: 1 - 2 days - Reason: Recheck today's complaints Discharge Instructions: - Discharge Summary Sheet cp - Constipation, Adult cp - Fecal Impaction cp Forms: - Medication Reconciliation Form cp - Thank You Letter cp - Antibiotic Education cp - Prescription Opioid Use cp Prescriptions: - Miralax 17 gram Oral powder in packet - take 1 packet by ORAL route once daily; 30 packet; Refills: 0, Product cp Selection Permitted Signatures: Dispatcher [employer] Codi Ramon Corey, PA PA cp Gibson, Lacie RN RN lg3 Falguni Mckeon RN RN jg9 Corrections: (The following items were deleted from the chart) 03/27 01:38 03/26 23:05 [facility] [place]. Order ordered. cp lg3
--- NOTE | 2022-03-27 00:35 | ER ---
Nurse's Notes [facility] Name: Caridad Chadwick Age: 86 yrs Sex: Female : 1935 Arrival Date: 03/26/2022 Time: 17:35 Bed 13 Private MD: Diagnosis: Constipation, unspecified;Fecal impaction Presentation: 03/26 17:30 Chief complaint: EMS states: Patient is here with c/o constipation and rectal pain that jg9 has been ongoing since last thur 03/20/22. patient reports last bm around the same time 03/20/22. Coronavirus screen: Vaccine status: Patient reports receiving the 2nd dose of the covid vaccine. Ebola Screen: Patient negative for fever greater than or equal to 101.5 degrees Fahrenheit, and additional compatible Ebola Virus Disease symptoms Patient denies exposure to infectious person. Patient denies travel to an Ebola-affected area in the 21 days before illness onset. Initial Sepsis Screen: Does the patient meet any 2 criteria? No. Patient's initial sepsis screen is negative. Does the patient have a suspected source of infection? No. Patient's initial sepsis screen is negative. Risk Assessment: Do you want to hurt yourself or someone else? Patient reports no desire to harm self or others. Onset of symptoms is unknown. 17:30 Method Of Arrival: EMS: [facility] jg9 17:30 Acuity: ZOIE 3 jg9 Triage Assessment: 17:30 General: Appears uncomfortable, Behavior is anxious. Pain: Complains of pain in pelvis jg9 and buttocks Pain currently is 10 out of 10 on a pain scale. GI: Abd is soft X 4 quads Abdomen is tender to palpation in suprapubic area, right lower quadrant and left lower quadrant Reports constipation, since 03/24/22. : No deficits noted. Derm: No deficits noted. Musculoskeletal: No deficits noted. Historical: - Allergies: 17:30 codeine sulfate; jg9 - Home Meds: 17:30 carvedilol 12.5 mg Oral tab 1 tab 2 times per day [Active]; duloxetine 30 mg Oral cpDR jg9 1 cap once daily [Active]; hydroxychloroquine 200 mg Oral tab 1 tab once daily [Active]; levothyroxine 100 mcg cap 1 cap once daily [Active]; metformin 500 mg Oral tab 1 tab 2 times per day [Active]; olmesartan 20 mg Oral tab 1 tab once daily [Active]; prednisone 5 mg/mL Oral conc once daily [Active]; Probiotic 20 billion cell Oral cap [Active]; rosuvastatin 5 mg Oral cpSP 1 cap at bedtime [Active]; sodium bicarbonate 325 mg Oral tab [Active]; - PMHx: 17:30 C DIFF; Cyst on pancreas; Diabetes - NIDDM; Diverticulitis; GERD; Hypertension; jg9 Hypothyroidism; Rheumatoid Arthritis; - Immunization history:: Adult Immunizations up to date. - Social history:: Smoking status: Patient denies any tobacco usage or history of. Screenin:41 Abuse screen: Denies threats or abuse. Denies injuries from another. Nutritional jg9 screening: No deficits noted. Tuberculosis screening: No symptoms or risk factors identified. Fall Risk Fall in past 12 months (25 points). Assessment: 17:30 GI: Bowel sounds present X 4 quads. jg9 19:50 General: Appears in no apparent distress. comfortable, Behavior is calm, cooperative. lg3 Pain: Complains of pain in left lower quadrant and right lower quadrant and suprapubic area and buttocks. Neuro: No deficits noted. Gifford Agitation-Sedation Scale (RASS): 0 - Alert and Calm Level of Consciousness is awake, alert, obeys commands, Oriented to person, place, situation, Appropriate for age. Cardiovascular: No deficits noted. Denies chest pain, shortness of breath, Capillary refill < 3 seconds Clubbing of nail beds is absent JVD is absent Patient's skin is warm and dry. Respiratory: No deficits noted. Airway is patent Trachea midline Respiratory effort is even, unlabored, Respiratory pattern is regular, symmetrical. GI: Abdomen is round non-distended, Abd is soft X 4 quads Abdomen is tender to palpation in suprapubic area, right lower quadrant and left lower quadrant Reports lower abdominal pain, constipation. : No deficits noted. No signs and/or symptoms were reported regarding the genitourinary system. EENT: No deficits noted. No signs and/or symptoms were reported regarding the EENT system. Derm: No deficits noted. No signs and/or symptoms reported regarding the dermatologic system. Skin is intact, is thin, Skin is dry, Skin temperature is warm. Musculoskeletal: No deficits noted. No signs and/or symptoms reported regarding the musculoskeletal system. Circulation, motion, and sensation intact. Range of motion: intact in all extremities. 20:25 Reassessment: Patient appears in no apparent distress at this time. No changes from lg3 previously documented assessment. Patient and/or family updated on plan of care and expected duration. Pain level reassessed. Patient is alert, oriented x 3, equal unlabored respirations, skin warm/dry/pink. 23:15 Reassessment: Patient appears in no apparent distress at this time. No changes from lg3 previously documented assessment. Patient and/or family updated on plan of care and expected duration. Pain level reassessed. Patient is alert, oriented x 3, equal unlabored respirations, skin warm/dry/pink. 03/27 01:36 Reassessment: Patient appears in no apparent distress at this time. No changes from lg3 previously documented assessment. Patient and/or family updated on plan of care and expected duration. Pain level reassessed. Patient is alert, oriented x 3, equal unlabored respirations, skin warm/dry/pink. Patient states symptoms have improved. Vital Signs: 03/26 17:30 BP 117 / 66; Pulse 66; Resp 20 S; Temp 97.7; Pulse Ox 96% on R/A; Weight 66.22 kg (R); jg9 Height 5 ft. 1 in. (154.94 cm) (R); Pain 10/10; 17:45 BP 159 / 65; Pulse 68; Resp 18 S; Pulse Ox 92% on R/A; Pain 10/10; jg9 18:00 BP 153 / 67; Pulse 68; Resp 14 S; Pulse Ox 93% on 2 lpm NC; jg9 18:45 BP 162 / 68; Pulse 65; Resp 16 S; Pulse Ox 90% on R/A; Pain 5/10; jg9 20:25 BP 149 / 88; Pulse 67; Resp 17; Pulse Ox 97% on 2 lpm NC; lg3 03/27 01:36 BP 152 / 71; Pulse 68; Resp 16; Pulse Ox 96% on R/A; 3 03/26 17:30 Body Mass Index 27.59 (66.22 kg, 154.94 cm) j9 ED Course: 03/26 17:35 Patient arrived in ED. jg9 17:35 Arm band placed on right wrist. jg9 17:36 Falguni Mckeon, SHARLENE is Primary Nurse. jg9 17:38 Triage completed. jg9 17:40 [place] PA is PHCP. cp 17:40 Pablito Laura DO is Attending Physician. cp 17:42 Patient has correct armband on for positive identification. Bed in low position. Call jg9 light in reach. Side rails up X 1. 18:09 Inserted saline lock: 22 gauge in left forearm, using aseptic technique. Blood jg9 collected. 19:57 CT Abd/Pelvis - IV Contrast Only In Process Unspecified. EDMS 20:25 Urine Microscopic Only Sent. lg3 06 01:37 No provider procedures requiring assistance completed. IV discontinued, intact, lg3 bleeding controlled, No redness/swelling at site. Pressure dressing applied. Administered Medications: 03/26 18:20 Drug: fentaNYL (PF) 25 mcg {Note: RASS-0.} Route: IVP; Site: left forearm; jg9 18:58 Follow up: Response: No adverse reaction; Pain is decreased; RASS: Alert and Calm (0) jg9 18:20 Drug: NS 0.9% 500 ml Route: IV; Rate: 100 ml/hr; Site: left forearm; jg9 0609 01:38 Follow up: Response: No adverse reaction; IV Status: Completed infusion; IV Intake: lg3 500ml 03/26 21:41 Drug: Lactulose 20 grams Volume: 30 ml; Route: PO; lg3 21:41 Follow up: Response: No adverse reaction lg3 21:41 Drug: Fleet Enema (sodium phosphate) 133 ml Route: TX; lg3 21:41 Follow up: Response: No adverse reaction lg3 Medication: 17:41 VIS not applicable for this client. jg9 Intake: 03/27 01:38 IV: 500ml; Total: 500ml. lg3 Outcome: 00:34 Discharge ordered by . cp 01:37 Discharged to home via wheelchair, with significant other. lg3 01:37 Condition: stable 01:37 Discharge instructions given to patient, significant other, Instructed on discharge instructions, follow up and referral plans. medication usage, Demonstrated understanding of instructions, follow-up care, medications, Prescriptions given X 1. 01:39 Patient left the ED. lg3 Signatures: Dispatcher [employer] DIANAMS [place] PA PA cp Gibson, Lacie, RN RN lg3 Falguni Mckeon, RN RN jg9
[2022-03-27 01:45] VITALS: TEMP 97.7
[2022-03-27 01:53] VITALS: BP 152/71; O2SAT 96
== END 2022-03-27 01:39 | disposition home or self-care (01) ==
LOC: ER 17:29
DX: K56.41 Fecal impaction (principal); E11.9 Type 2 diabetes mellitus without complications; I10 Essential (primary) hypertension; Z88.5 Allergy status to narcotic agent
CPT/HCPCS: 96361; 85025; 36415; 83690; 80053; 74177; 96374; 99284; Q9967; J3010; J7040; 81003; 81015

== ENCOUNTER 2022-05-19 10:59 | Observation (INO) | payer OTHER ==
[2022-05-19 11:55] LABS: Absolute Lymphocytes (CBC) 1.6 K/uL (0.7-4.9); Hematocrit 30.9 % (36.0-45.0); MCV 92.7 fL (80-100); MPV 8.2 fL (7.6-11.3); RBC Red Blood Cell Count 3.33 M/uL (3.86-4.86)
[2022-05-19] MEDS ORDERED: MORPHINE 2 MG/ML SYR ONE ×2 (11:56→13:46)
[2022-05-19 12:53] LABS: Albumin 2.6 g/dL (3.4-5.0); Bilirubin Total 0.8 mg/dL (0.2-1.0); Protein, Total 5.6 g/dL (6.4-8.2)
[2022-05-19 13:02] LABS: Blood Morphology Comment NOT SEEN (NOT SEEN); Platelet Estimate ADEQ
[2022-05-19 13:26] LABS: Urine Blood Trace-lysed (Negative); Urine Glucose Negative (Negative); Urine Protein 1+ (Negative); Urine Specific Gravity 1.015 (1.005-1.030)
--- NOTE | 2022-05-19 13:39 | RAD REPORT ---
EXAM DESCRIPTION: CTAbdomen Pelvis W Contrast - 05/19/2022 1:27 pm CLINICAL HISTORY: Abdominal pain. fall 4 days ago, right sided back and abd pain COMPARISON: Abdomen Pelvis W Contrast dated 03/26/2022; Abdomen Pelvis W Contrast dated 03/13/2022; Abdomen Pelvis W Contrast dated 11/07/2020; Abdomen Pelvis W Contrast dated 10/27/2018 TECHNIQUE: Biphasic CT imaging of the abdomen and pelvis was performed with 100 ml non-ionic IV cont rast. All CT scans are performed using dose optimization technique as appropriate and may include automated exposure control or mA/KV adjustment according to patient size. FINDINGS: The lung bases are clear. Mild fatty liver is seen. No aggressive liver lesion or biliary dilatation. The pancreas, adrenal gla nds are normal. No solid renal mass or hydronephrosis. Small benign right renal cyst. Low-density vega creatic masses appear unchanged. No bowel obstruction, free air, free fluid or abscess. Moderate fat containing ventral hernia. Promin ent sigmoid diverticulosis coli without diverticulitis. The appendix is normal. No evidence of signi ficant lymphadenopathy. Mild compression deformity of L1 vertebral body has developed since the prior study. Estimated verteb ral body height loss is 15%. This is likely related to osteoporosis. IMPRESSION: Mild compression fracture affects the L1 vertebral body likely related to osteoporosis.
[2022-05-19 13:42] LABS: Urine Bacteria >50 /HPF (<20); Urine RBC None Seen /HPF (None Seen); Urine WBC Clump Few /HPF (None Seen)
[2022-05-19] MEDS ORDERED: NA CHLORIDE 0.9% 250 ML ONE (14:32)
[2022-05-19] MEDS ORDERED: CEFTRIAXONE 1000 MG/VIAL ONE (14:32)
[2022-05-19 15:24] LABS: SARS-CoV-2 Antigen Rapid Res Positive (Negative)
[2022-05-19] MEDS ORDERED: MORPHINE 2 MG/ML SYR IV PRN (17:01)
[2022-05-19] MEDS ORDERED: ONDANSETRON 4 MG/2 ML VIAL IV PRN (17:01)
[2022-05-19] MEDS ORDERED: ACETAMINOPHEN 500 MG TAB PO PRN (17:01)
[2022-05-19 18:19] VITALS: BMI 27.3
[2022-05-19] MEDS ORDERED: GLUCAGON 1 MG/VIAL IM PRN (20:32)
[2022-05-19] MEDS ORDERED: D50W 25 GM/50 ML SYRINGE IV PRN (20:32)
[2022-05-19] MEDS ORDERED: D10W 125 ML IV PRN (20:37)
[2022-05-19] MEDS: ALPRAZOLAM 0.25 MG TABLET PO SCH ×2 (21:00→21:42)
[2022-05-19] MEDS ORDERED: ENOXAPARIN 40 MG/0.4 ML SQ ONE (21:08)
[2022-05-19] MEDS: INSULIN -REGULAR HUMAN 50 UNIT/0.5 ML ML SQ SCH (21:42)
[2022-05-20 03:49] LABS: Absolute Lymphocytes (CBC) 1.4 K/uL (0.7-4.9); Hematocrit 30.7 % (36.0-45.0); MCV 92.9 fL (80-100); MPV 8.5 fL (7.6-11.3)
[2022-05-20 04:06] VITALS: TEMP 97.2
[2022-05-20 04:22] VITALS: BP 167/81
[2022-05-20] MEDS: INSULIN -REGULAR HUMAN 50 UNIT/0.5 ML ML SQ SCH (07:30)
--- NOTE | 2022-05-20 08:38 | RAD REPORT ---
EXAM DESCRIPTION: RAD - Chest Single View - 05/20/2022 8:22 am CLINICAL HISTORY: COVID COMPARISON: Portable 03/21/2022 TECHNIQUE: AP portable chest image was obtained 05/20/2022 8:22 am . FINDINGS: Lung volumes are low. Interstitial markings are similar to slightly increased over compari son. A mild interstitial pneumonia or interstitial edema would be possible. No consolidation seen. No typical pneumonia pattern seen in the early COVID cases. Upper lobe vasculature within normal limits. Heart and vasculature are normal. No measurable pleural effusion and no pneumothorax. No acute bony abnormality seen. No acute aortic findings suspected. IMPRESSION: No focal mass or consolidation. Interstitial markings are increased fractionally from the March comparison and may reflect a mild inte rstitial infiltrate or edema
[2022-05-20] MEDS ORDERED: OLMESARTAN MEDOXOMIL 40 MG PO SCH (09:00)
[2022-05-20] MEDS ORDERED: HYDROXYCHLOROQUINE 200MG TAB PO SCH (09:00)
[2022-05-20] MEDS ORDERED: DULOXETINE 30 MG CAP PO SCH (09:00)
[2022-05-20] MEDS ORDERED: Omeprazole [Omeprazole] 20 MG Capsule.Dr PO SCH (09:00)
[2022-05-20] MEDS ORDERED: Cyclosporine [Restasis] Droperette OPTH SCH (09:00)
[2022-05-20] MEDS ORDERED: LEVOTHYROXINE SODIUM 75 MCG PO SCH (09:00)
[2022-05-20] MEDS ORDERED: carvediloL 12.5 MG TAB PO SCH (09:00)
--- NOTE | 2022-05-20 09:39 | HP ---
Date of Admission: 05/19/2022 Chief Complaint: Back pain and weakness. History Of Present Illness: This is an 86-year-old female patient, who has fallen down in last coupl e of weeks or so, has been having back pain since that time and is having trouble moving around in e house, so she came into the emergency room with these increasing difficulties and back pain problem . The patient also has some generalized weakness with this. Denies any cough, congestion. No fever . No chills. No shortness of breath. No diarrhea. No vomiting. After she came to the emergency r oom, she was evaluated and was admitted to the hospital with compression fracture of lumbar spine and her COVID-19 test was positive, but she does not have any symptoms related to COVID. Allergies: TO CODEINE CAUSING NAUSEA, VOMITING, AND HALLUCINATIONS. Medications: List reviewed. Review of Systems: Musculoskeletal: As mentioned above. Constitutional: As mentioned above. All other systems reviewed and negative. 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 Past Surgical History: Cataract surgery, hysterectomy, bladder suspension, back surgery April 2020, k nee surgery, and foot surgery. Family History: Father , had lung cancer. Mother , details unknown. Brother has diabetes. Sister , had lung cancer. Social History: Negative for smoking. Use of alcohol very rarely. Physical Examination: Vital Signs: Temperature 97.3, pulse 74, respiratory rate 19, blood pressure 144/74, height 5 feet 1 inch, weight 145 pounds. General: Awake, alert, oriented, not in distress. HEENT: Head atraumatic, normocephalic. Conjunctivae nonerythematous. Sclerae white. Mouth, no thr ush or edema noted. Ears/Nose, no mass, lesion, discharge noted. Neck: Supple. No JVD, lymph nodes, bruit, thyromegaly noted. Lungs: Bilateral good equal air entry. Clear to auscultation. No rhonchi. No rales. Heart: Normal heart sounds, no murmur or gallop. Abdomen: Soft, bowel sounds normal. No guarding, rigidity, tenderness, mass, hepatosplenomegaly, dis tention, or bruit noted. Extremities: No leg edema. No calf tenderness. Skin: No rash, ulcer, cellulitis. Lymphatics: No lymph node enlargement in neck, supraclavicular, infraclavicular region. Neuro: No focal neurological deficit. Chest: Unremarkable. External Genitalia: Deferred. Rectal: Deferred. Laboratory Data: White count 10.9, hemoglobin 10.9, platelets 169. COVID-19 test positive. Sodium 132, potassium 4, chloride 100, bicarb 25, BUN 24, creatinine 1.03, glucose 194. Liver function test s unremarkable. Urinalysis; 1+ leukocyte esterase, 10-20 WBC, bacteria more than 50. CAT scan of th e abdomen and pelvis does not show any acute intraabdominal finding and it shows evidence of compress ion fracture of L1 spine. Impression: 1.Urinary tract infection. 2.Compression fracture of L1 spine. 3.COVID-19 infection. 4.Generalized weakness. 5.Debility. 6.Osteoarthritis, multiple sites. 7.Rheumatoid arthritis. 8.Polymyalgia rheumatica. 9.Hypertension. 10.Type 2 diabetes mellitus. 11.Hypothyroidism. 12.Hyperlipidemia, mixed. 13.Gastroesophageal reflux disease. 14.Anemia, unspecified. Plan: We will admit the patient to hospital for further evaluation and management of this problem. The patient is appropriate for inpatient and is expected to spend 2 midnights in the hospital. For C OVID-19, she does not require any further treatment specific to this because she has no other symptom s associated with that. She will be kept in isolation. Home medications will be continued per order . We will consult Physical Therapy and Occupational Therapy. She has home health services available at home using [facility] will be consulted to help make arrangements for h ome physical therapy and home occupational therapy for her. For her compression fracture, at this po int conservative treatment will be provided and depending on her clinical condition down the line, we will make a decision whether any referral for surgical intervention is necessary or not. DVT prophy laxis will be given per order. All these details were discussed with her and her who was at bedside. NIMA/MODL Voice ID: [id number]
[2022-05-20 10:47] VITALS: O2SAT 95
[2022-05-20] MEDS ORDERED: ROSUVASTATIN CALCIUM 5 MG PO SCH (21:00)
[2022-05-20] MEDS ORDERED: CEFTRIAXONE 1,000 MG in NA CHLORIDE 0.9% 50 ML IVPB SCH (21:00)
--- NOTE | 2022-05-21 09:30 | ER ---
Nurse's Notes [facility] Name: Caridad Chadwick Age: 86 yrs Sex: Female : 1935 Arrival Date: 05/19/2022 Time: 11:05 Bed 18 Private MD: Diagnosis: Wedge compression fracture of first lumbar vertebra, initial encounter for closed fracture;UTI/ Urinary tract infection, site not specified;Muscle weakness (generalized);SARS-associated coronavirus as the cause of diseases classified elsewhere Presentation: 05/19 11:05 Chief complaint: EMS states: Patient states she has been complaining of severe lower bm7 back pain since yesterday. Coronavirus screen: At this time, the client does not indicate any symptoms associated with coronavirus-19. Ebola Screen: No symptoms or risks identified at this time. Initial Sepsis Screen: Does the patient meet any 2 criteria? No. Patient's initial sepsis screen is negative. Does the patient have a suspected source of infection? No. Patient's initial sepsis screen is negative. Risk Assessment: Do you want to hurt yourself or someone else? Patient reports no desire to harm self or others. Onset of symptoms was May 18, 2022 at 20:22. Care prior to arrival: Medication(s) given: Tylenol, 650 mg, \T\ 1100. Transition of care: patient was not received from another setting of care. 11:05 Method Of Arrival: EMS: [facility] 11:05 Acuity: ZOIE 3 bm7 Triage Assessment: 11:07 General: Appears in no apparent distress. uncomfortable, Behavior is cooperative, bm7 appropriate for age, anxious. Pain: Complains of pain in lumbar area, left low back and right low back Pain does not radiate. Pain currently is 10 out of 10 on a pain scale. EENT: No deficits noted. No signs and/or symptoms were reported regarding the EENT system. Neuro: No deficits noted. Cardiovascular: No deficits noted. Respiratory: No deficits noted. GI: No deficits noted. No signs and/or symptoms were reported involving the gastrointestinal system. : No deficits noted. No signs and/or symptoms were reported regarding the genitourinary system. Derm: Skin is intact, is fragile, is thin, Skin is dry, Skin is pink, warm \T\ dry. Musculoskeletal: Reports pain in lumbar area, left low back and right low back. Historical: - Allergies: 11:07 codeine sulfate; bm7 - Home Meds: 11:07 carvedilol 12.5 mg Oral tab 1 tab 2 times per day [Active]; duloxetine 30 mg Oral cpDR bm7 1 cap once daily [Active]; hydroxychloroquine 200 mg Oral tab 1 tab once daily [Active]; levothyroxine 100 mcg cap 1 cap once daily [Active]; rosuvastatin 5 mg Oral cpSP 1 cap at bedtime [Active]; metformin 500 mg Oral tab 1 tab 2 times per day [Active]; olmesartan 20 mg Oral tab 1 tab once daily [Active]; prednisone 5 mg/mL Oral conc once daily [Active]; Probiotic 20 billion cell Oral cap [Active]; sodium bicarbonate 325 mg Oral tab [Active]; - PMHx: 11:07 Diabetes - NIDDM; Diverticulitis; GERD; Hypertension; Hypothyroidism; Rheumatoid bm7 Arthritis; - Immunization history:: Adult Immunizations up to date. - Social history:: Smoking status: Patient/guardian denies using tobacco products. - Family history:: not pertinent. - Hospitalizations: : No recent hospitalization is reported. Screenin:33 Abuse screen: Denies threats or abuse. Nutritional screening: No deficits noted. bm7 Tuberculosis screening: No symptoms or risk factors identified. Fall Risk None identified. Assessment: 11:09 Reassessment: ERP at bedside to assess. bm7 12:05 Reassessment: Patient and/or family updated on plan of care and expected duration. Pain bm7 level reassessed. Patient is alert, oriented x 3, equal unlabored respirations, skin warm/dry/pink. at bedside. 13:23 Reassessment: Patient appears in no apparent distress at this time. Patient and/or ph family updated on plan of care and expected duration. Pain level reassessed. Patient is alert, oriented x 3, equal unlabored respirations, skin warm/dry/pink. Pt straight cathed to obtain urine sample, continues to c/o pain to low back area, taken to CT via stretcher. 13:53 Reassessment: ERP at bedside to assess. bm7 14:44 Reassessment: Patient and/or family updated on plan of care and expected duration. Pain bm7 level reassessed. 16:01 Reassessment: Patient is alert, oriented x 3, equal unlabored respirations, skin bm7 warm/dry/pink. attempted to call report x 2. Vital Signs: 11:05 BP 150 / 95; Pulse 68; Resp 18; Temp 97.9(TE); Pulse Ox 100% on R/A; Weight 63.5 kg bm7 (R); Height 5 ft. 1 in. (154.94 cm); Pain 10/10; 12:05 BP 149 / 56; Pulse 70; Resp 16; Pulse Ox 99% on R/A; Pain 5/10; bm7 13:37 BP 115 / 64; Pulse 60; Resp 16; Pulse Ox 100% on R/A; Pain 8/10; bm7 14:56 BP 170 / 80; Pulse 82; Resp 16; Pulse Ox 99% on R/A; bm7 16:02 BP 142 / 76; Pulse 68; Resp 16; Pulse Ox 100% on R/A; bm7 11:05 Body Mass Index 26.45 (63.50 kg, 154.94 cm) 7 ED Course: 11:05 Patient arrived in ED. bm7 11:07 Triage completed. bm7 11:07 Arm band placed on left wrist. bm7 11:08 Germán Forrester MD is Attending Physician. rn 11:23 Chata Chapman, SHARLENE is Primary Nurse. bm7 11:33 Patient has correct armband on for positive identification. Placed in gown. Bed in low bm7 position. Call light in reach. Side rails up X2. Client placed on continuous cardiac and pulse oximetry monitoring. NIBP monitoring applied. Warm blanket given. 11:33 Missed attempt(s): 22 gauge in left forearm. antecubital area. Bleeding controlled, bm7 band aid applied, catheter tip intact. 11:45 Initial lab(s) drawn, by ED staff, sent to lab. Inserted saline lock: 24 gauge in left bm7 forearm, using aseptic technique. Blood collected. 13:23 Straight cath inserted, using sterile technique, 16 Fr. Specimen obtained. Returned ph cloudy urine. Patient tolerated well. 13:27 Urine Microscopic Only Sent. kc6 13:28 Urine collected: straight cath specimen. bm7 13:29 CT Abd/Pelvis - IV Contrast Only In Process Unspecified. EDMS 14:01 Henry Abernathy MD is Hospitalizing Provider. rn 14:44 Awaiting bed assignment. bm7 14:44 No provider procedures requiring assistance completed. bm7 14:56 COVID swab sent to lab. bm7 16:14 Patient admitted, IV remains in place. bm7 Administered Medications: 11:51 Drug: morphine 2 mg Route: IVP; Infused Over: 4 mins; Site: left antecubital; bm7 13:42 Follow up: Response: Pain is decreased bm7 13:41 Drug: morphine 2 mg Route: IVP; Infused Over: 4 mins; Site: left antecubital; bm7 14:48 Follow up: Response: No adverse reaction bm7 14:33 Drug: Rocephin (cefTRIAXone) 1 grams Route: IV; Rate: calculated rate; Site: left 7 antecubital; 14:45 Follow up: IV Status: Completed infusion bm7 Medication: 11:33 VIS not applicable for this client. bm7 Outcome: 14:02 Decision to Hospitalize by Provider. rn 16:14 Admitted to Tele accompanied by tech, room 421, Report called to SHARLENE [facility] 16:14 Condition: improved 16:14 Discharge instructions given to patient, family, Instructed on the need for admit, Demonstrated understanding of 16:32 Patient left the ED. bm7 Signatures: Dispatcher [employer] EDMS Germán Forrester MD MD rn Hall, Patricia, RN RN ph McCarthy, Brittany, RN RN bm7 Campbell, Kaitlyn kc6
--- NOTE | 2022-05-21 09:30 | EDPHYS ---
Physician Documentation [facility] Name: Caridad Chadwick Age: 86 yrs Sex: Female : 1935 Arrival Date: 05/19/2022 Time: 11:05 Bed 18 Private MD: ED Physician Germán Forrester HPI: 05/19 11:35 This 86 yrs old Female presents to ER via EMS with complaints of back pain. rn 11:35 The patient presents with pain that is acute. The symptoms are located in the low back, rn right low back. Onset: The symptoms/episode began/occurred 4 day(s) ago. The pain radiates to the abdomen. Associated signs and symptoms: Pertinent negatives: chest pain, fever, hematuria, incontinence, numbness, tingling, urinary retention, vomiting, weakness. Modifying factors: The patient symptoms are alleviated by nothing, the patient symptoms are aggravated by any movement. Severity of symptoms: At their worst the symptoms were moderate, in the emergency department the symptoms are unchanged. The patient has experienced similar episodes in the past. The patient has not recently seen a physician. Pt reports 2 recent falls, last one a few days ago, reports pain to right lower back. + chronic problems with lumbar spine. Reports pain radiates to abdomen. No fever/vomiting/diarrhea. . Historical: - Allergies: 11:07 codeine sulfate; bm7 - Home Meds: 11:07 carvedilol 12.5 mg Oral tab 1 tab 2 times per day [Active]; duloxetine 30 mg Oral cpDR bm7 1 cap once daily [Active]; hydroxychloroquine 200 mg Oral tab 1 tab once daily [Active]; levothyroxine 100 mcg cap 1 cap once daily [Active]; rosuvastatin 5 mg Oral cpSP 1 cap at bedtime [Active]; metformin 500 mg Oral tab 1 tab 2 times per day [Active]; olmesartan 20 mg Oral tab 1 tab once daily [Active]; prednisone 5 mg/mL Oral conc once daily [Active]; Probiotic 20 billion cell Oral cap [Active]; sodium bicarbonate 325 mg Oral tab [Active]; - PMHx: 11:07 Diabetes - NIDDM; Diverticulitis; GERD; Hypertension; Hypothyroidism; Rheumatoid bm7 Arthritis; - Immunization history:: Adult Immunizations up to date. - Social history:: Smoking status: Patient/guardian denies using tobacco products. - Family history:: not pertinent. - Hospitalizations: : No recent hospitalization is reported. ROS: 11:35 Constitutional: Negative for fever, chills, and weight loss, Eyes: Negative for injury, rn pain, redness, and discharge, Neck: Negative for injury, pain, and swelling, Cardiovascular: Negative for chest pain, palpitations, and edema, Respiratory: Negative for shortness of breath, cough, wheezing, and pleuritic chest pain, Abdomen/GI: + right lower abd pain Back: + right lower back pain : Negative for injury, bleeding, discharge, and swelling, MS/Extremity: Negative for injury and deformity, Skin: Negative for injury, rash, and discoloration, Neuro: Negative for headache, weakness, numbness, tingling, and seizure. Exam: 11:35 Constitutional: This is a well developed, well nourished patient who is awake, alert, rn appears uncomfortable Head/Face: Normocephalic, atraumatic. Neck: Trachea midline, no masses palpated, and no cervical lymphadenopathy. Supple, full range of motion without nuchal rigidity, or vertebral point tenderness. Cardiovascular: Regular rate and rhythm. No pulse deficits. Respiratory: No increased work of breathing, no retractions or nasal flaring. Abdomen/GI: Soft, mild RLQ tenderness, no rebound Back: No spinal tenderness. Skin: Warm, dry MS/ Extremity: Pulses equal, no cyanosis. Neurovascular intact. Full, normal range of motion. Equal circumference. Neuro: Awake and alert, GCS 15 Vital Signs: 11:05 BP 150 / 95; Pulse 68; Resp 18; Temp 97.9(TE); Pulse Ox 100% on R/A; Weight 63.5 kg bm7 (R); Height 5 ft. 1 in. (154.94 cm); Pain 10/10; 12:05 BP 149 / 56; Pulse 70; Resp 16; Pulse Ox 99% on R/A; Pain 5/10; bm7 13:37 BP 115 / 64; Pulse 60; Resp 16; Pulse Ox 100% on R/A; Pain 8/10; bm7 14:56 BP 170 / 80; Pulse 82; Resp 16; Pulse Ox 99% on R/A; bm7 16:02 BP 142 / 76; Pulse 68; Resp 16; Pulse Ox 100% on R/A; bm7 11:05 Body Mass Index 26.45 (63.50 kg, 154.94 cm) bm7 MDM: 11:08 Patient medically screened. rn 11:40 ED course: Pt initially declined pain medication, now requests pain medication. rn 13:59 Differential diagnosis: chronic back pain, Fracture Pyelonephritis sprain, vertebral rn fracture, UTI, dehydration. Data reviewed: vital signs, nurses notes, lab test result(s), radiologic studies, CT scan, and as a result, I will admit patient. Counseling: I had a detailed discussion with the patient and/or guardian regarding: the historical points, exam findings, and any diagnostic results supporting the discharge/admit diagnosis, lab results, radiology results, the need for further work-up and treatment in the hospital. Response to treatment: the patient's symptoms have mildly improved after treatment, and as a result, I will admit patient. Admission orders: after a detailed discussion of the patient's condition and case, the admit orders are written by me. ED course: Pt still in a lot of pain, + UTI, + dehydration, consulted with Dr. Abernathy, will admit. . 05/19 11:09 Order name: CBC with Diff; Complete Time: 13:47 rn 05/19 11:09 Order name: CMP; Complete Time: 13:47 rn 05/19 11:09 Order name: Lipase; Complete Time: 13:47 rn 05/19 11:09 Order name: Urine Microscopic Only; Complete Time: 13:47 rn 05/19 12:03 Order name: Manual Differential; Complete Time: 13:47 EDNC 05/19 13:26 Order name: Urine Dipstick-Ancillary; Complete Time: 13:47 EDNC 05/19 11:09 Order name: CT Abd/Pelvis - IV Contrast Only; Complete Time: 13:47 rn 05/19 11:09 Order name: IV Saline Lock; Complete Time: 11:45 rn 05/19 11:09 Order name: Labs collected and sent; Complete Time: 11:45 rn 05/19 13:45 Order name: Urine Culture EDNC 05/19 14:22 Order name: SARS RAPID bd 05/19 11:09 Order name: Urine Dipstick-Ancillary (obtain specimen); Complete Time: 13:27 rn Administered Medications: 11:51 Drug: morphine 2 mg Route: IVP; Infused Over: 4 mins; Site: left antecubital; bm7 13:42 Follow up: Response: Pain is decreased bm7 13:41 Drug: morphine 2 mg Route: IVP; Infused Over: 4 mins; Site: left antecubital; bm7 14:48 Follow up: Response: No adverse reaction bm7 14:33 Drug: Rocephin (cefTRIAXone) 1 grams Route: IV; Rate: calculated rate; Site: left bm7 antecubital; 14:45 Follow up: IV Status: Completed infusion bm7 Disposition Summary: 05/19/22 14:02 Hospitalization Ordered Hospitalization Status: Inpatient Admission rn Provider: Henry Abernathy rn Location: Telemetry/MedSurg (Inpatient) rn Condition: Stable rn Problem: new rn Symptoms: are unchanged rn Bed/Room Type: Standard rn Room Assignment: 421(05/19/22 15:37) dw Diagnosis - Wedge compression fracture of first lumbar vertebra, initial encounter for closed rn fracture - UTI/ Urinary tract infection, site not specified rn - Muscle weakness (generalized) rn - SARS-associated coronavirus as the cause of diseases classified elsewhere rn Forms: - Medication Reconciliation Form rn - SBAR form rn Signatures: Dispatcher [employer] Marlene Vera RN RN dw Nieto, Roman, MD MD rn McCarthy, Brittany, RN RN 7 Corrections: (The following items were deleted from the chart) 15:37 14:02 rn hailey
--- NOTE | 2022-05-21 19:54 | DS ---
Date of Discharge: 05/20/2022 Disposition: Discharged to go home. Physical Examination: HEENT: Unremarkable. Lungs: Clear to auscultation. Heart: Sounds normal. Abdomen: Soft. Bowel sounds normal. No guarding, rigidity, tenderness, or distention. Extremities: No leg edema. DICTATION ENDS HERE NIMA/MODL Voice ID: [id number] Report ID: [id number]
--- NOTE | 2022-05-22 04:36 | DS ---
Date of Discharge: 05/20/2022 Disposition: Discharged to go home. Physical Examination: HEENT: Unremarkable. Lungs: Clear to auscultation. Heart: Sounds normal. Abdomen: Soft. Bowel sounds normal. No guarding, rigidity, tenderness, or distention. Extremities: No leg edema. Discharge Medications And Instructions: 1.Continue all prior home medications. 2.Take Cipro 250 mg 2 times a day for 1 week. 3.Cyclobenzaprine 5 mg at bedtime. 4.Celebrex 200 mg daily. Follow up at office in 2 weeks. Social Service to make arrangements for home physical therapy and occupational therapy. Hospital Course: Ms. Chadwick is a very pleasant 86-year-old female patient admitted to the hospital a nd see dictated H and P for more information. The patient came in with back pain, generalized weakne ss. She was also found to have urinary tract infection. Empiric antibiotics were started. Urine cu lture is growing gram-negative rods. Definite identification and sensitivity result are pending and we will follow up on that. Meanwhile, her back pain has improved. Her CAT scan of abdomen and pelvi s done in the emergency room has shown compression fracture of L1 spine. Her last fall was about 2 w eeks ago, as reported by patient's . Overall, this morning, she reported that her back pain i s much better. Overall, she feels better and was discharged to go back home in stable condition. He r COVID-19 test came back positive, but she does not have any symptoms related to COVID-19. Chest x- ray has not shown any evidence of COVID pneumonia. Final Diagnoses: 1.Urinary tract infection. 2.COVID-19 infection. 3.Compression fracture of L1 spine. 4.Hypertension. 5.Type 2 diabetes mellitus. NIMA/MODL Voice ID: [id number] Report ID: [id number]
== END 2022-05-20 10:48 | disposition home or self-care (01) ==
LOC: ER 10:59 → INTOOBSV 14:09 → ERHOLD 14:09 → 4TH 16:16
PROVIDERS: ADMIT Internal Medicine; ATTEND Internal Medicine
DX: N39.0 Urinary tract infection, site not specified (principal); S32.010A Wedge compression fracture of first lumbar vertebra, initial encounter for closed fracture; U07.1 COVID-19; I10 Essential (primary) hypertension; E11.9 Type 2 diabetes mellitus without complications; E03.9 Hypothyroidism, unspecified; M06.9 Rheumatoid arthritis, unspecified; K21.9 Gastro-esophageal reflux disease without esophagitis; Z79.84 Long term (current) use of oral hypoglycemic drugs; Z79.52 Long term (current) use of systemic steroids; Z79.899 Other long term (current) drug therapy; Z88.5 Allergy status to narcotic agent; Z88.8 Allergy status to other drugs, medicaments and biological substances
CPT/HCPCS: 36415; 51702; 71045; 74177; 80048; 80053; 81003; 81015; 82947; 83690; 85025; 87077; 87086; 87088; 87186; 87811; 96374; 96375; 99285; G0378; J1650; J2270; J7050; Q9967

== ENCOUNTER 2022-08-02 19:33 | Emergency (ER) | payer OTHER ==
--- OUTSIDE RECORDS SUMMARY | 2022-08-02 19:42 | XMS REPORT | Continuity of Care Document ---
:1935 Author Organization [facility] t Address [address] [place] [address] Care Team Providers Name Role Phone SINCERE CORNELIUS Primary Care Physician Unavailable AMOR MULLER Attending Clinician Unavailable SYSTEM, PROVIDER NOT IN Attending Clinician Unavailable Luis SU, Rina Figueroa Attending Clinician Lawanda Bocanegra MD Attending Clinician TA PUENTES Attending Clinician Unavailable Britney Calderon RN Attending Clinician Unavailable Sang Downs RN Attending Clinician Unavailable Ashley Adkins MD Attending Clinician Kinsey Benitez MD Attending Clinician KINSEY BENITEZ Attending Clinician Unavailable ASHLEY ADKINS Attending Clinician Unavailable DIMA, KERA K.H. Attending Clinician Unavailable Tamika Bullard RN Attending Clinician Unavailable Mina Cummins Attending Clinician Daniel Pitt MD Attending Clinician DANIEL PITT Attending Clinician Unavailable Dima DELANEY, Kera K.H. Attending Clinician Fran Russell MD Attending Clinician FRAN RUSSELL Attending Clinician Unavailable Luis Felipe Arambula RN Attending Clinician Unavailable TYRON REYES Attending Clinician Unavailable Kenyetta MCKEE, Jordan S Attending Clinician Amadeo DELANEY, Prabhakar Attending Clinician Siomara DELANEY, Tyron Attending Clinician Renzo DELANEY, Amor Wiggins Attending Clinician Dean DELANEY, Vandana Worthington Attending Clinician [phone] Ronda Joseph Attending Clinician [phone] AMOR MULLER Admitting Clinician Unavailable Daniel Pitt MD Admitting Clinician DANIEL PITT Admitting Clinician Unavailable TYRON REYES Admitting Clinician Unavailable Siomara DELANEY, Tyron Admitting Clinician Payers Payer Name Policy Type Policy Number Effective Date Expiration Date [facility]IC[facility] A B [id number] 1998 00:00:00 [employer] TRS RETIREES [id number] 2010 2010 00:00:00 00:00:00 [facility] [id number] 2020 [facility] 00:00:00 [facility] [id number] 2020 2020 00:00:00 00:00:00 Problems Condition Condition [...] C. C. Disease Active Univers difficile difficile 5-22 ity of colitis colitis 00:00: [place] 00 Medical Branch Chest pain Chest pain Disease Active U nivers in adult in adult - ity of 00:: [place] [facility] Complicate Complicate Disease Active [...] hypertensi 02-21 it y of on on 00:: [place] [facility] Dyslipidem Dyslipidem Disease Active [...] Atrial Atrial Disease Active Univers fibrillati fibrillati 05 it y of on with on with [...] Added automatic ally from request for surgery [id number] Spondyloli Spondyloli Disease Active Overview : 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 Added automatic ally from request for surgery [id number] Trochanter Trochanter Disease Active Overview : Methodi ic ic 2-[address] bursitis bursitis 00:00: g of this Hos mario of right of right 00 note l hip hip might be different from the original. Added automatic ally from request for surgery [id number] Diverticul Diverticul Disease Active M ethodi itis itis 5-20 st 00:00: Hospita 00 l Abscess of Abscess of Disease Active M ethodi sigmoid sigmoid 5-07 st colon [...] high-risk medication medication Hypothyroi Hypothyroi Disease Active 0 M ethodi dism dism 04-03 00:00: Hospita 00 l S/P S/P Disease Active Methodi [place]-BSO AL[place]ANIA-BSO 04-03 00:00: Hospita 00 l Hypertensi Hypertensi Disease Active 0 M ethodi on on 04-03 00:00: Hospita 00 l Degenerati Degenerati Disease Active 0 M ethodi on of on of 03-09 st interverte interverte 00:00: Ho spita bral disc [...] [facility] Codeine Drug Active Other (See dizzyFEEL Un ignacia Allergy Comments) 5-20 S CRAZY ity o f 00:00: PER 00 PTOther reaction( Anderso s): Other n (See Cancer Comments) Center FEELS CRAZY PER PT Codeine Propensi Active Other (See FEELS Met hodi ty to Comments) 5-[address] adverse 00:00: PT Hospita reaction 00 l s to drug NO KNOWN Allergy Active [facility] Family History Family Member Diagnosis Comments Start Date Stop Date Source Natural brother Diabetes [facility] Natural father Lung cancer [facility] Natural mother Old age [facility] Social History Social Habit Start Date Stop Date Quantity Comments Source History SDOH [facility] Frequency [facility]ospita l History SDOH [facility] Drinks History SDKS [facility] Exposure to Not sure University of SARS-CoV-2 [facility] [place] [facility] (event) Branch Tobacco use and 2021-06-21 2021-06-21 Smokeless tobacco Un iversity of exposure 00:00:00 00:00:00 non-user [facility] History SDOH 2021-03-08 2021-03-08 17 University o f Education 00:00:00 00:00:00 [facility] Alcohol intake 2020-09-17 2020-09-17 Current drinker [facility] 00:00:00 00:00:00 of alcohol Hospital (finding) Alcohol Comment 2019-10-31 2019-10-31 1-2 times a year Met hodist 00:00:00 00:00:00 Hospital Sex Assigned At [birth year] [facility] 00:[facility]00 [facility] Smoking Status Start Date Stop Date Source Never smoker [facility] Branch Medications Ordered Filled Start Stop Current Ordering Indication Dosage Frequency Signature Comments Components Source Medication Medication Date Date Medication? Clinician (SIG) Name Name Lactobacill 2020-10 Yes Take by Uni vers us 2-03 mouth. ity of acidophilus 09:58: [place] (PROBIOTIC 05 MD ORAL) [facility] acetaminoph 2020-10 Yes 500mg Take 500 U nivers en 2-03 mg by ity of (TYLENOL) 09:58: mouth. [place] 500 mg [facility] 2020-10 Yes 500mg Take 500 Uni vers (GLUCOPHAGE 2-03 mg by ity of ) 500 mg 09:58: mouth [place] tablet 05 daily. MD Bakari bill [facility] DULoxetine 2020-10 Yes 30mg Take 30 mg U nivers (CYMBALTA) 2-03 by mouth ity o f 30 mg 09:58: daily. [place] capsule 05 MD Bakari bill [facility] levothyroxi 2020-10 Yes 100ug Take 100 U nivers ne 2-03 mcg by ity of (SYNTHROID, 09:58: mouth [place] LEVOTHROID) 05 daily. 100 mcg [facility] olmesartan 2020-10 Yes 40mg Take 40 mg U nivers (BENICAR) 2-03 by mouth ity of 40 mg 09:58: daily. [place] tablet 05 MD Bakari bill [facility] omeprazole 2020-10 Yes 20mg Take 20 mg U nivers (PriLOSEC) 2-03 by mouth ity o f 20 mg 09:58: daily. 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 n including Cancer shoulder Center mupirocin Yes Neoplasm of Apply Univers (BACTROBAN) 16 uncertain topically ity of 2% ointment 00:00: behavior of to [place] 00 skin affected MD area(s) Anderso twice n daily. Cancer Center levocetiriz Yes [facility] s ine (XYZAL) 06-25 ity of 5 MG tablet 00:00: [place] 00 MD Bakari bill [facility] fluticasone Yes SHAKE [facility] [place] [facility] rs propionate 06-22 LIQUID AND ity of (FLONASE) 00:00: USE 1 00 SPRAY IN MD mcg/spray EACH Anderso nasal spray NOSTRIL n TWICE Cancer DAILY Center predniSONE Yes 5mg Take 5 mg Un ignacia (DELTASONE) 5-27 by mouth ity of 5 mg tablet 00:00: [place]. [place] [facility] predniSONE Yes [id number] 5mg Take 1 Univers 5 mg tablet 5-27 tablet by ity of 00:00: mouth [place] 00 daily. Medical Branch predniSONE Yes [id number] 5mg Take 1 Univers 5 mg tablet 5-27 tablet by ity of 00:00: mouth [place] 00 daily. Medical Branch Iron-Folic Yes Take by [facility] ers Acid-Mv, 5-26 mouth 2 ity of Min Cmb#15 19:33: (two) [place] (CENTRATEX) 14 times Medical 106 mg daily. Branch iron- 1 mg Cap Iron-Folic Yes Take by [facility] ers Acid-Mv, 5-26 mouth 2 ity of Min Cmb#15 19:33: (two) [place] (CENTRATEX) 14 times Medical 106 mg daily. [...] of 5 mg tablet 17:25: 00:00 at [place] 18 :00 bedtime. Medical Branch carvediloL 2020- No 12.5mg Take 12.5 Univers (COREG) 5-26 05-26 mg by ity of 12.5 mg 17:25: 00:00 mouth 2 [place] tablet 18 :00 (two) Medical times Branch daily with meals. metFORMIN 2020- No 500mg Take 500 Un ignacia 500 mg 5-26 05-26 mg by ity of tablet 17:25: 00:00 mouth 2 [place] 18 :00 (two) Medical times Branch daily with meals. DULoxetine 2020- No 30mg Take 30 mg Univers 30 mg 5-26 05-26 by mouth ity of capsule 17:25: 00:00 daily. [place] 18 :00 Medical Branch olmesartan 2020- No 40mg Take 40 mg Univers 40 mg 5-26 05-26 by mouth ity of tablet 17:25: 00:00 daily. [place] 18 :00 Medical Branch famciclovir 2020- No 1{tbl} Take 1 U nivers (FAMVIR 5-26 05-26 tablet by ity of ORAL) 17:25: 00:00 mouth 3 [place] 18 :00 (three) Medical times Branch daily. [...] of 5 mg tablet 17:25: 00:00 at [place] 18 :00 bedtime. Medical Branch carvediloL 2020- [...] by ity of tablet 17:25: 00:00 mouth [place] 18 :00 daily. 6AM Medical Branch omeprazole 2020- No 25mg Take 25 mg Univers 20 mg 5-26 05-26 by mouth ity of capsule 17:25: 00:00 daily. [place] 18 :00 Medical Branch rosuvastati 2020- No 5mg Take 5 mg Univers n (CRESTOR) 5-26 05-26 by mouth ity of 5 mg tablet 17:25: 00:00 at [place] 18 :00 bedtime. Medical Branch carvediloL 2020- No 12.5mg Take 12.5 Univers (COREG) 5-26 05-26 mg by ity of 12.5 mg 17:25: 00:00 mouth 2 [place] tablet 18 :00 (two) Medical times Branch daily with meals. carvedilol Yes 12.5mg Take 12.5 Univers (COREG) 5-26 mg by ity of 12.5 mg 00:00: mouth [place] tablet 00 daily. MD Bakari bill [facility] hydrOXYchlo Yes 200mg Take 200 U nivers roQUINE 5-26 mg by ity of (PLAQUENIL) 00:00: mouth [place] 200 mg 00 daily. MD susan bill [facility] rosuvastati Yes 5mg Take 5 mg U nivers n (CRESTOR) 5-26 by mouth ity of 5 mg tablet 00:00: daily. [place] 00 [place] Bakari bill [facility] hydrOXYchlo Yes [id number] 200mg Take 1 Univers roQUINE 5-26 tablet by ity of (PLAQUENIL) 00:00: mouth [place] 200 mg 00 daily. Medical tablet Branch rosuvastati Yes [id number] 5mg Take 1 Univers n (CRESTOR) 5-26 tablet by ity of 5 mg tablet 00:00: mouth at [place] 00 bedtime. Medical Branch carvediloL Yes [id number] 12.5mg Take 1 Univers (COREG) 5-26 tablet by ity of 12.5 mg 00:00: mouth 2 [place] tablet 00 (two) Medical times Branch daily with meals. levothyroxi Yes [id number] 88ug Take 1 Univers ne 88 mcg 5-26 tablet by ity o f tablet 00:00: mouth [place] 00 every Medical morning. Branch 6AM lactobacill Yes [id number] 1{tbl} Take 1 Univers us 5-26 tablet by ity of acidophilus 00:00: mouth 2 [place] 25 million 00 (two) Medical cell -100 times Branch mg captab daily. hydrOXYchlo Yes [id number] 200mg Take 1 Univers roQUINE 5-26 tablet by ity of (PLAQUENIL) 00:00: mouth [place] 200 mg 00 daily. Medical tablet Branch rosuvastati Yes [id number] 5mg Take 1 Univers n (CRESTOR) 5-26 tablet by ity of 5 mg tablet 00:00: mouth at [place] 00 bedtime. Medical Branch carvediloL Yes [id number] 12.5mg Take 1 Univers (COREG) 5-26 tablet by ity of 12.5 mg 00:00: mouth 2 [place] tablet 00 (two) Medical times Branch daily with meals. levothyroxi Yes [id number] 88ug Take 1 Univers ne 88 mcg 5-26 tablet by ity o f tablet 00:00: mouth [place] 00 every Medical morning. Branch 6AM lactobacill Yes [id number] 1{tbl} Take 1 Univers us 5-26 tablet by ity of acidophilus 00:00: mouth 2 [place] 25 million 00 (two) Medical cell -100 times Branch mg captab daily. furosemide 2020- No [id number] 20mg Take 1 Univers 20 mg 5-26 06-26 tablet by ity of tablet 00:00: 04:59 mouth [place] 00 :00 daily for Medical 30 days. Branch KCL 10 mEq 2020- No [id number] 20meq Take 2 Univers tablet 5-26 06-26 tablets by ity of 00:00: 04:59 mouth [place] 00 :00 daily for Medical 30 days. Branch furosemide 2020- No [id number] 20mg Take 1 Univers 20 mg 5-26 06-26 tablet by ity of tablet 00:00: 04:59 mouth [place] 00 :00 daily for Medical 30 days. Branch KCL 10 mEq 2020- No [id number] 20meq Take 2 Univers tablet 5-26 06-26 tablets by ity of 00:00: 04:59 mouth [place] 00 :00 daily for Medical 30 days. Branch vancomycin 2020- No [id number] Take 1 Univers 125 mg 5-26 06-20 capsule by ity of capsule 00:00: 04:59 mouth 4 [place] 00 :00 (four) Medical times Branch daily for 10 days, THEN 1 capsule 2 (two) times daily for 7 days, THEN 1 capsule daily for 7 days. vancomycin 2020- No [id number] Take 1 Univers 125 mg 5-26 06-20 capsule by ity of capsule 00:00: 04:59 mouth 4 [place] 00 :00 (four) Medical times Branch daily for 10 days, THEN 1 capsule 2 (two) times daily for 7 days, THEN 1 capsule daily for 7 days. KCL No 40meq 40 mEq, Univers (KLOR-CON 03-12-26 Oral, BID, ity of M20) tablet 01:15: 00:51 First dose [place] 40 mEq 00 :56 (after Medical last Branch modificati on) on Thu03/11/21 at 2015, Until Discontinu ed, Routine KCL No 40meq 40 mEq, Univers (KLOR-CON 03-11-25 Oral, ity of M20) tablet 20:45: 01:04 DAILY, [place] 40 mEq 00 :19 First dose Medical on Thu Branch 03/11/21 at 1545, Until Discontinu ed, Routine vancomycin No 250mg 250 mg, Un ignacia (VANCOCIN) 03-09 06-05 Oral, QID, it y of capsule 250 22:00: 00:59 53 doses, [place] mg 00 :00 First dose Medical (after Branch last modificati on) on [place] 03/09/21 at 1700, Last dose on Thu03/22/21 at 1600, Routine
Reason for Anti-Infec tive: Documented Infection< br>Documen roxanna Infection Site: Abdominal< br>Duratio n of Therapy: 14 days Sliding Yes Subcutaneo Univ ers Scale - us, TID ity of Insulin - 17:00: MEALS+HS, Aniceto as Lispro 00 First dose Medical (HumaLOG) + on [place] Branch Fsbg 03/09/21 at Testing 1200, Until Discontinu ed, Routine hydrOXYchlo Yes 200mg 200 mg, Un ignacia roQUINE 22 Oral, ity of (PLAQUENIL) 16:15: DAILY, [place] tablet 200 00 First dose Med ical mg on [place] Branch 03/09/21 at 1115, Until Discontinu ed, Routine
Indicatio n: Rheumatic disorder predniSONE Yes 5mg 5 mg, Univer s (DELTASONE) 03-09 Oral, ity of tablet 5 mg 16:15: DAILY, [place] 00 First dose Medical on [facility] 03/09/21 at 1115, Until Discontinu ed, Routine omeprazole No 20mg 20 mg, Univ ers (PRILOSEC) 03-0924 Oral, ity of capsule 20 14:00: 20:28 DAILY, [place] mg 00 :14 First dose Medical on [facility] 03/09/21 at 0900, Until Discontinu ed, Routine carvediloL Yes 12.5mg 12.5 mg, U nivers (COREG) 03-09 Oral, BID ity of tablet 12.5 13:00: MEALS, [place] mg 00 First dose Medical on [facility] 03/09/21 at 0800, Until Discontinu ed, Routine vancomycin No 125mg 125 mg, Un ignacia (VANCOCIN) 03-09 Oral, QID, it y of capsule 125 13:00: 21:36 56 doses, [place] mg 00 :50 First dose Medical on [facility] 03/09/21 at 0800, Last dose on Thu03/22/21 at 2000, Routine
Reason for Anti-Infec tive: Documented Infection< br>Documen roxanna Infection Site: Abdominal< br>Duratio n of Therapy: 14 days levothyroxi Yes 88ug 88 mcg, Uni vers ne 03-09 Oral, ity of (SYNTHROID) 11:00: QAM-0600, [place] tablet 88 00 First dose Medi eduar mcg on [facility] 03/09/21 at 0600, Until Discontinu ed, [...] mg 00 First dose Medical on Thu [employer] 03/08/21 at 1700, Until Discontinu ed, Routine acetaminoph Yes 650mg 650 mg, Un ignacia en 03-08 Oral, ity of (TYLENOL) 19:47: Q6HPRN, [place] tablet 650 32 Starting Medic al mg [...] Medi eduar RTU 10 mEq 03/08/21 at [facility] 1330, 100 mL KCL 2020- No [...] 03/08/21 at 1315, Routine iohexol 2020- No [id number] 100mL 100 mL, Univers (OMNIPAQUE 03-08 Intravenou it y of 350 17:25: 17:25 s, ONCE, 1 [place] BULK-100 00 :00 dose, Fri Medica l mL) 03/08/21 at Branch injection 1245, 100 mL Routine olmesartan Yes 40mg Take 40 mg U nivers 40 mg 5-19 by mouth ity of tablet 19:02: daily. [address] Iron-Folic Yes Take by [facility] ers Acid-Mv, 5-19 mouth 2 ity of Min Cmb#15 19:02: (two) [place] (CENTRATEX) 37 times Medical 106 mg daily. Branch iron- 1 mg Cap olmesartan 0 Yes 40mg Take 40 mg U nivers 40 mg 5-19 by mouth ity of tablet 19:02: daily. [address] Iron-Folic 0 Yes Take by [facility] ers Acid-Mv, 5-19 mouth 2 ity of Min Cmb#15 19:02: (two) [place] (CENTRATEX) 37 times Medical 106 mg daily. Branch iron- 1 mg Cap olmesartan 0 Yes 40mg Take 40 mg U nivers 40 mg 5-19 by mouth ity of tablet 19:02: daily. [address] Iron-Folic Yes Take by [facility] ers Acid-Mv, 5-19 mouth 2 ity of Min Cmb#15 19:02: (two) [place] (CENTRATEX) 37 times Medical 106 mg daily. Branch iron- 1 mg Cap levothyroxi 0 Yes 88ug Take 88 Uni vers ne 88 mcg 5-19 mcg by ity of tablet 19:01: mouth [place] [address] [address] [place] [address] metFORMIN 0 Yes 500mg Take 500 Uni vers 500 mg 5-19 mg by ity of tablet 19:01: mouth 2 [place] [address] ([facility]) [facility] daily with meals. DULoxetine 0 Yes 30mg Take 30 mg U nivers 30 mg 5-19 by mouth ity of capsule 19:01: daily. [address] levothyroxi 0 Yes 88ug Take 88 Uni vers ne 88 mcg 5-19 mcg by ity of tablet 19:01: mouth [place] daily. [address] [place] [address] metFORMIN 2020-0 Yes 500mg Take 500 Uni vers 500 mg 5-19 mg by ity of tablet 19:01: mouth 2 [place] [address] (two) [facility] daily with meals. DULoxetine 0 Yes 30mg Take 30 mg U nivers 30 mg 5-19 by mouth ity of capsule 19:01: daily. [address] levothyroxi 0 Yes 88ug Take 88 Uni vers ne 88 mcg 5-19 mcg by ity of tablet 19:01: mouth [place] [address] daily. 6AM Medical Branch metFORMIN 2020-0 Yes 500mg Take 500 Uni vers 500 mg 5-19 mg by ity of tablet 19:01: mouth 2 [place] [address] (two) Medical times Branch daily with meals. DULoxetine Yes 30mg Take 30 mg U nivers 30 mg 5-19 by mouth ity of capsule 19:01: daily. [place] [address] Medical Branch famciclovir Yes 1{tbl} Take 1 Un ignacia (FAMVIR 5-19 tablet by ity of ORAL) 19:00: mouth 3 [place] [address] (three) Medical times Branch daily. famciclovir 0 Yes 1{tbl} Take 1 Un ignacia (FAMVIR 5-19 tablet by ity of ORAL) 19:00: mouth 3 [place] [address] (three) Medical times Branch daily. famciclovir Yes 1{tbl} Take 1 Un ignacia (FAMVIR 5-19 tablet by ity of ORAL) 19:00: mouth 3 [place] [address] (three) Medical times Branch daily. GABAPENTIN 2020- No 100mg Take 100 U nivers ORAL 5-19 05-19 mg by ity of 18:59: 00:00 mouth 3 [place] 52 :00 (three) Medical times Branch daily. GABAPENTIN 2020-0 2020- No 100mg Take 100 U nivers ORAL 5-19 05-19 mg by ity of 18:59: 00:00 mouth 3 [place] 52 :00 (three) Medical times Branch daily. GABAPENTIN 2020-0 2020- No 100mg Take 100 U nivers ORAL 5-19 05-19 mg by ity of 18:59: 00:00 mouth 3 [place] 52 :00 (three) Medical times Branch daily. GABAPENTIN 2020-0 2020- No 100mg Take 100 U nivers ORAL 5-19 05-19 mg by ity of 18:59: 00:00 mouth 3 [place] 52 :00 (three) Medical times Branch daily. [...] times Branch daily with meals. furosemide Yes [id number] 40mg Take 1 Univers 40 mg 5-19 tablet by ity of tablet 00:00: mouth [place] 00 daily. Medical Branch furosemide Yes [id number] 40mg Take 1 Univers 40 mg 5-19 tablet by ity of tablet 00:00: mouth [place] 00 daily. Medical Branch furosemide Yes [id number] 40mg Take 1 Univers 40 mg 5-19 tablet by ity of tablet 00:00: mouth [place] 00 daily. Medical Branch KCL 20 mEq 2020- No [id number] 20meq Take 1 Univers tablet 5-19 -19 tablet by ity of 00:00: 04:59 mouth [place] 00 :00 daily for Medical 30 days. Branch KCL 20 mEq 2020- No [id number] 20meq Take 1 Univers tablet 5-19 -19 tablet by ity of 00:00: 04:59 mouth [place] 00 :00 daily for Medical 30 days. Branch KCL 20 mEq 2020- No [id number] 20meq Take 1 Univers tablet 5-19 -19 tablet by ity of 00:00: 04:59 mouth [place] 00 :00 daily for Medical 30 days. Branch furosemide 2020- No [id number] 40mg Take 1 Univers 40 mg 5-19 05-26 tablet by ity of tablet 00:00: 00:00 mouth [place] 00 :00 daily. Medical Branch KCL 20 mEq 2020- No [id number] 20meq Take 1 Univers tablet 5-19 05-26 tablet by ity of 00:00: 00:00 mouth [place] 00 :00 daily for Medical 30 days. Branch famciclovir Yes 1{tbl} Take 1 Un ignacia (FAMVIR 5-07 tablet by ity of ORAL) 22:16: mouth 3 [place] 54 (three) Medical times Branch daily. GABAPENTIN Yes 100mg Take 100 Un ignacia ORAL 5-07 mg by ity of 22:16: mouth 3 [place] 54 (three) Medical times Branch daily. hydrOXYchlo [...] by mouth ity of capsule 22:16: daily. [place] [address] Medical Branch rosuvastati Yes 5mg Take 5 mg U nivers n (CRESTOR) 5-07 by mouth ity of 5 mg tablet 22:16: at [place] 54 bedtime. Medical Branch carvediloL Yes 12.5mg [...] by mouth ity of capsule 22:16: daily. [place] [address] Medical Branch rosuvastati 0 Yes 5mg Take 5 mg U nivers n (CRESTOR) 5-07 by mouth ity of 5 mg tablet 22:16: at [place] [address] bedtime. Medical Branch carvediloL Yes 12.5mg Take [...] by mouth ity of capsule 22:16: daily. [place] [address] Medical Branch rosuvastati 0 Yes 5mg Take 5 mg U nivers n (CRESTOR) 5-07 by mouth ity of 5 mg tablet 22:16: at [place] [address] bedtime. Medical Branch carvediloL Yes 12.5mg Take 12.5 Univers (COREG) 5-07 mg by ity of 12.5 mg 22:16: mouth 2 [place] tablet 54 (two) Medical times Branch daily with meals. metFORMIN 2020- No 500mg Take 500 Un ignacia 500 mg - 05-07 mg by ity of tablet 20:47: 00:00 mouth 2 [place] 14 :00 (two) Medical times Branch daily with meals. olmesartan 2020- No 40mg Take 40 mg Univers 40 mg 02-22-07 by mouth ity of tablet 20:47: 00:00 daily. [place] 14 :00 OLMESARTAN Medical MEDOXOMIL Branch predniSONE 2020- No 20mg Take 20 mg Univers 20 mg 02-22-07 by mouth ity of tablet 20:47: 00:00 daily. 3 [place] 14 :00 TABS DAILY Medical FOR 3 Branch DAYS, THEN 2 TABLETS BY MOUTH FOR 3 DAYS LAST TAKEN 5.2.21 sulfur 2020- No [id number] 5mL 5 mL, Un ignacia hexafluorid 02-22- 9109 Intravenou i ty of e microsphr 18:15: 18:15 s, ONCE, 1 [place] (LUMASON) 00 :00 dose, Fri Medic al injection 5 02/22/21 at [facility] mL 1315, Routine
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 prednisoLON Yes [id number] 1[drp] Place 1 Univers E acetate 1 5-07 Drop in ity o f % 00:00: left eye 4 [place] ophthalmic 00 (four) Medical suspension times Branch drops daily. lactobacill 2020- No [id number] 1{tbl} Take 1 Univers us 5-07 06-07 tablet by ity of acidophilus 00:00: 04:59 mouth 2 [place] 25 million 00 :00 (two) Medical cell -100 times Branch mg captab daily for 30 days. lactobacill 2020- No [id number] 1{tbl} Take 1 Univers us 5-07 06-07 tablet by ity of acidophilus 00:00: 04:59 mouth 2 [place] 25 million 00 :00 (two) Medical cell -100 times Branch mg captab daily for 30 days. lactobacill 2020- No [id number] 1{tbl} Take 1 Univers us 5-07 06-07 tablet by ity of acidophilus 00:00: 04:59 mouth 2 [place] 25 million 00 :00 (two) Medical cell -100 times Branch mg captab daily for 30 days. lactobacill 2020- No [id number] 1{tbl} Take 1 Univers us 5-07 06-07 tablet by ity of acidophilus 00:00: 04:59 mouth 2 [place] 25 million 00 :00 (two) Medical cell -100 times Branch mg captab daily for 30 days. lactobacill 2020- No [id number] 1{tbl} Take 1 Univers us 5-07 06-07 tablet by ity of acidophilus 00:00: 04:59 mouth 2 [place] 25 million 00 :00 (two) Medical cell -100 times Branch mg captab daily for 30 days. lactobacill 2020- No [id number] 1{tbl} Take 1 Univers us 5-07 06-07 tablet by ity of acidophilus 00:00: 04:59 mouth 2 [place] 25 million 00 :00 (two) Medical cell -100 times Branch mg captab daily for 30 days. lactobacill 2020- No [id number] 1{tbl} Take 1 Univers us 5-07 05-26 tablet by ity of acidophilus 00:00: 00:00 mouth 2 [place] 25 [place] 00 :00 (two) Medical cell -100 times Branch mg captab daily for 30 days. lactobacill 2020- No [id number] 1{tbl} Take 1 Univers us 5-07 05-26 tablet by ity of acidophilus 00:00: 00:00 [place] 25 [place] 00 :00 (two) Medical cell -100 times Branch mg captab daily for 30 days. lactobacill 2020- No [id number] 1{tbl} Take 1 Univers us 5-07 05-26 tablet by ity of acidophilus 00:00: 00:00 mouth [place] 25 [place] 00 :00 (two) Medical cell -100 times Branch mg captab daily for 30 days. prednisoLON 2020- No [id number] 1[drp] Place 1 Univers E acetate 1 5-07 05-19 Drop in ity of % 00:00: 00:00 left eye 4 [place] [facility] 00 :00 (four) Medical suspension times Branch drops daily. prednisoLON 2020- No [id number] 1[drp] Place 1 Univers E acetate 1 5-07 05-19 Drop in ity of % 00:00: 00:00 left eye 4 [place] [facility] 00 :00 (four) Medical suspension times Branch drops daily. prednisoLON 2020- No [id number] 1[drp] Place 1 Univers E acetate 1 5-07 05-19 Drop in ity of % 00:00: 00:00 left eye 4 [place] [facility] 00 :00 (four) Medical suspension times Branch drops daily. prednisoLON 2020- No [id number] 1[drp] Place 1 Univers E acetate 1 5-07 05-19 Drop in ity of % 00:00: 00:00 left eye 4 [place] [facility] 00 :00 (four) Medical suspension times Branch drops daily. levoFLOXaci 2020- No [id number] 500mg Take 1 Univers n 500 mg 5-07 05-10 tablet by ity o f tablet 00:00: 04:59 mouth [place] 00 :00 every 24 Medical (twenty-fo Branch ur) hours for 2 days. KCL Yes 20meq 20 mEq, Univers (KLOR-CON 02-21 Oral, ity of M20) tablet 14:00: [place] 20 [place] 00 First dose Medical on [facility] 02/21/21 at 0900, Until Discontinu ed, Routine omeprazole Yes 20mg 20 mg, Unive rs (PRILOSEC) 02-21 Oral, ity of capsule 20 14:00: DAILY, [place] mg 00 First dose Medical on [facility] Branch 02/21/21 at 0900, Until Discontinu ed, Routine hydrOXYchlo Yes 200mg 200 mg, Un ignacia roQUINE 02-21 Oral, ity of (PLAQUENIL) 14:00: DAILY[place] tablet 200 00 First dose Med ical mg on [facility] 02/21/21 at 0900, Until Discontinu ed, Routine
Indicatio n: Rheumatic disorder enoxaparin Yes 30mg 30 mg, Unive rs (LOVENOX) 02-21 Subcutaneo ity of injection 14:00: [place], [place] 30 mg 00 First dose Medical on [facility] 02/21/21 at 0900, Until Discontinu ed, Routine levothyroxi Yes 100ug 100 mcg, U nivers ne 02-21 Oral, ity of (SYNTHROID) 11:00: QAM-0600, [place] tablet 100 00 First dose Med ical mcg on [facility] 02/21/21 at 0600, Until Discontinu ed iohexol 2020- No [id number] 120mL 120 mL, U nivers (OMNIPAQUE 02-21-06 Intravenou it y of 350 09:15: 09:15 [...] ity of succ 07:30: 06:26 Push, ONCE [place] (SOLU-MEDRO 00 :00 NOW, 1 Medica l [...] 0.9% Yes IV Univers NaCl (NS) 1 02-21 Infusion, ity of L + KCL 20 07:00: at 125 [place] mEq 00 mL/hr, Medical CONTINUOUS Branch , Starting [place] 02/21/21 at 0200, Until Discontinu ed, Routine acyclovir Yes 10mg/kg 500 mg Uni vers (ZOVIRAX) 02-21 (rounded ity of 500 mg in 06:45: [place] 478 [place] NaCl 0.9% 00 mg = 10 Medical (NS) 100 mL mg/kg Branch IV infusion ?47.8 kg [place] weight), IV Infusion, Q8H ABX, First dose [...] 2 mg, Slow Un ignacia injection 2 5-06 05-06 IV Push, ity of mg 06:45: 05:40 ONCE, 1 [place] 00 :00 dose, [place] Medical 02/21/21 at [...] ity of 1,000 mg in 06:30: Piggyback, [place] NaCl 0.9% 00 Q12H ABX, Medic al (NS) 50 mL First dose [facility] wy[facility] MINI-BAG on [place] 02/21/21 at 0130, Until Discontinu ed, 50 mL
R gallo for Anti-Infec tive: Empiric Therapy for Suspected Infection< br>Empiric Therapy Site: Urine
D uration of therapy: 7 days haloperidol Yes 5mg 5 mg, Slow Univers lactate 06 IV Push, ity of (HALDOL) 06:29: QPMPRN, [place] injection 5 35 Starting Medi eduar mg [facility] 02/21/21 Branch at 0129, Until Discontinu ed, Routine, insomnia, agitation FENTanyl PF Yes 50ug 50 mcg, Uni vers (SUBLIMAZE 5-06 Slow IV ity of (PF)) 06:23: Push, [place] injection 10 TIDPRN, Medical 50 mcg Starting Branch [place] 02/21/21 at 0123, Until Discontinu ed, Routine, Pain (scale 7-10) traMADoL Yes 50mg 50 mg, Univers (ULTRAM) 5-06 Oral, ity of tablet 50 06:22: Q8HPRN, [place] mg 40 Starting Medical [place] 02/21/21 Branch [...] injection 37 Starting Medica l 25 mL [facility] 02/21/21 Branch at 0107, Until Discontinu ed, KIRSTY, Blood Glucose < or = 70 mg/dL and patient is unable to swallow or has mental status changes. predniSONE Yes 10mg 10 mg, Unive rs (DELTASONE) 02-21 Oral, ity of tablet 10 05:45: DAILY, [place] mg 00 First dose Medical on [facility] Branch 02/21/21 at 0045, Until Discontinu ed, Routine moxifloxaci Yes 1[drp] 1 Drop, U rollyers n (VIGAMOX) 02-21 Left Eye, ity of 0.5 % 05:45: TID, First [place] [facility] 00 dose on Medica l drops 1 [facility] 02/21/21 Branch Drop at 0045, Until Discontinu ed gabapentin Yes 200mg 200 mg, Uni vers (NEURONTIN) 06 Oral, TID, it y of capsule 200 05:45: First dose [place] mg 00 on [place] [facility] 02/21/21 at Branch 0045, Until Discontinu ed, Routine carvediloL Yes 12.5mg 12.5 mg, U nivers (COREG) 5-06 Oral, BID ity of tablet 12.5 05:45: MEALS, [place] mg 00 First dose Medical on [place] Branch 02/21/21 at 0045, Until Discontinu ed, Routine meclizine Yes 25mg 25 mg, Univer s (TRAVEL-EAS 5-06 Oral, BID, it y of E 05:45: First dose [place] (MECLIZINE) 00 on [place] Medica l ) tablet 25 02/21/21 at [facility] mg 0045, Until Discontinu ed, Routine lactobacill 0 Yes 1{tbl} 1 tablet, Univers us 506 Oral, BID, ity of acidophilus 05:30: First [...] injection 4 41 Starting Medi eduar mg [facility] 02/21/21 Branch at 0006, Until Discontinu ed, Routine, Nausea and Vomiting (N/V) FENTanyl PF 2020- No 25ug 25 mcg, Un ignacia (SUBLIMAZE 02-20 05-05 Slow IV ity o f (PF)) 23:45: 23:05 Push, [place] injection 00 :00 ONCE, 1 Medical 25 mcg dose, Wed Branch 02/20/21 at 1845, STAT ondansetron 2020- No 4mg 4 mg, Slow Univers (ZOFRAN -05 05-05 IV Push, ity of (PF)) 22:15: 21:15 ONCE, 1 [place] injection 4 00 :00 dose, Wed Med ical mg 02/20/21 at Branch 1715, KIRSTY NaCl 0.9% 2020- No 500mL at 999 Univ ers (NS) bolus 5-05 05-05 mL/hr, 500 it y of infusion 22:15: 21:15 mL, IV [place] 500 mL 00 :00 Infusion, Medical ONCE, 1 Branch dose, [facility] 02/20/21 at 1715, STAT FENTanyl PF 2020- [...] 40 MG 16:50: daily. Medical tablet 20 Center leflunomide Yes 10mg QD Take [address] (ARAVA) 10 2-11 by [facility] MG tablet 16:50: daily. Medica l 20 Center rosuvastati Yes 5mg QD Take [address] [facility] (CRESTOR) 2-11 by mouth [facility] 5 MG tablet 16:50: daily. [address] omeprazole Yes 20mg QD Take [address] (PriLOSEC) 2-11 by [facility] 20 MG 16:50: daily. Medical capsule 20 [place] cyanocobala Yes 100ug QD Take 100 C [...] s 1 MG tablet 16:50: daily. [address] levothyroxi Yes 88ug QD Take 88 [...] 40 MG 16:50: daily. Medical tablet 20 [place] leflunomide Yes 10mg QD Take [address] (ARAVA) 10 2-11 by [facility] MG tablet 16:50: daily. Medica l 20 [place] rosuvastati Yes 5mg QD Take [address] n (CRESTOR) 2-11 by [facility] 5 MG tablet 16:50: daily. Medi eduar 20 [place] omeprazole Yes 20mg QD Take [address] (PriLOSEC) 2-11 by [facility] 20 MG 16:50: daily. Medical capsule 20 [place] cyanocobala Yes 100ug QD Take [address] min, 2-11 mcg by [facility] vitamin 16:50: mouth Medical B-12, 100 20 daily. [place] MCG tablet ferrous Yes 325mg Take 325 [...] .5mg QD Take 0.[address] (ESTRACE) 11-26 02-08 mg by [facility] 0.5 MG 11:56: 00:00 mouth Medical tablet 09 :00 daily. [place] hydrOXYchlo Yes QD Take by Met hodi roQUINE 1-[address] (PLAQUENIL) 12:21: daily. [facility] 200 mg 38 l tablet hydrOXYchlo 0 Yes QD Take by Met hodi roQUINE 1-[address] (PLAQUENIL) 12:21: daily. [facility]osp [facility] 200 mg 38 l tablet hydrOXYchlo Yes QD Take by Met hodi roQUINE 1-[address] (PLAQUENIL) 12:21: daily. [facility]osp t[facility] 200 mg 38 l tablet omeprazole 2019-10 Yes 20mg QD Take 20 [...] Hospita capsule 57 l traMADoL 2019-10 Yes [id number] 50mg Q6H Take 50 mg [facility] (ULTRAM) 50 2-[address] mg tablet 13:56: every 6 Hospi ta 57 (six) l hours as needed for moderate pain .acute pain. rosuvastati 2019-10 Yes 5mg QD Take 5 [...] (two) l times a day with meals. rosuvastati 2019-10 Yes 5mg QD Take 5 [...] MG 13:56: daily. Hospita tablet 57 l DULoxetine 2019-10 Yes 30mg QD Take 30 mg M ethodi (CYMBALTA) 2-[address] 30 MG 13:56: daily. Hospita capsule 57 l levothyroxi 2019-10 Yes 75ug QD [...] Hospita capsule 57 l traMADoL 2019-10 Yes 50mg Q6H Take 50 mg [facility] (ULTRAM) 50 2-[address] mg tablet 13:56: every 6 Hospi ta 57 (six) l hours as needed for moderate pain .acute pain. traMADoL 2019-10 Yes 50mg Q6H Take 50 mg [facility] (ULTRAM) 50 2-[address] mg tablet 13:56: every 6 Hospi ta 57 (six) l hours as needed for moderate pain .acute pain. rosuvastati 2019-10 Yes 5mg QD Take 5 [...] (two) l times a day with meals. RESTASIS Yes 1[drp] Administer M ethodi 0.05 % 9-[address] ophthalmic 00:00: both eyes Ho spita emulsion 00 daily. l RESTASIS Yes 1[drp] Administer M ethodi 0.05 % 9-[address] ophthalmic 00:00: both eyes Ho spita emulsion 00 daily. l RESTASIS 0 Yes 1[drp] Administer M ethodi 0.05 % 9-[address] ophthalmic 00:00: both eyes Ho spita emulsion 00 daily. l Vital Signs Vital Name Observation Time Observation Value Comments Source WEIGHT 2020-11-29 60.555 kg 11:27:00 HEIGHT 2020-11-29 156.2 cm 11:27:00 HEIGHT 2020-11-26 156.2 cm 12:20:00 WEIGHT 2020-11-26 66.225 kg 12:20:00 Systolic blood 2021-03-13 119 mm[Hg] University of pressure 17:00:00 [facility] Diastolic blood 2021-03-13 66 mm[Hg] University o f pressure 17:00:00 [facility] Heart rate 2021-03-13 89 /min University 17:00:00 [facility] Body temperature 2021-03-13 36.11 [place] University 17:00:00 [facility] Respiratory rate 2021-03-13 18 /min University of 17:00:00 [facility] Oxygen saturation 2021-03-13 99 /min [facility] in Arterial blood 17:00:00 [facility] by Pulse oximetry [employer] Body weight 2021-03-13 56.7 kg University of 09:57:00 [facility] BMI 2021-03-13 23.62 kg/m2 University of 09:57:00 [facility] Body height 2021-03-08 154.9 cm University of 20:15:00 [facility] Systolic blood 2021-03-06 120 mm[Hg] University of pressure 19:03:00 [facility] Diastolic blood 2021-03-06 72 mm[Hg] University o f pressure 19:03:00 [facility] Heart rate 2021-03-06 79 /min University of 19:03:00 [facility] Respiratory rate 2021-03-06 19 /min University of 19:03:00 [facility] Body height 2021-03-06 152.4 cm University of 19:03:00 [facility] Body weight 2021-03-06 57.471 kg University of 19:03:00 [facility] BMI 2021-03-06 24.74 kg/m2 University of 19:03:00 [facility] Oxygen saturation 2021-03-06 96 /min [facility] in Arterial blood 19:03:00 [facility] by Pulse oximetry [employer] Body height 2021-03-05 152.4 cm University 20:14:00 [facility] Body weight 2021-03-05 57.749 kg University of 20:14:00 [facility] BMI 2021-03-05 24.86 kg/m2 University 20:14:00 [facility] Systolic blood 2021-02-22 139 mm[Hg] University of pressure 16:00:00 [facility] Diastolic blood 2021-02-22 64 mm[Hg] University o f pressure 16:00:00 [facility] Heart rate 2021-02-22 77 /min [facility] 16:00:00 [facility] Body temperature 2021-02-22 35.83 [place] 16:00:00 [facility] Respiratory rate 2021-02-22 18 /min University 16:00:00 [facility] Oxygen saturation 2021-02-22 95 /min [facility] in Arterial blood 16:00:00 [facility] by Pulse oximetry [employer] Body weight 2021-02-22 60.963 kg [facility] 08:01:00 [facility] BMI 2021-02-22 25.39 kg/m2 [facility] 08:01:00 [facility] Body height 2021-02-21 154.9 cm University 01:11:00 [facility] WEIGHT 2020-11-29 60.555 kg 11:27:00 HEIGHT 2020-11-29 156.2 cm 11:27:00 HEIGHT 2020-11-26 156.2 cm 12:20:00 WEIGHT 2020-11-26 66.225 kg 12:20:00 Body height 2022-06-24 154.9 cm [facility] 18:02:00 [facility] Body weight 2022-06-24 66.225 kg [facility] 18:02:00 [facility] BMI 2022-06-24 27.59 kg/m2 [facility] 18:02:00 [facility] Systolic blood 2021-09-20 176 mm[Hg] notified University of pressure 15:52:00 SHARLENE Flynn [facility] Diastolic blood 2021-09-20 83 mm[Hg] notified University o f pressure 15:52:00 SHARLENE Flynn [facility] Heart rate 2021-09-20 67 /min University of 15:52:00 [facility] Body temperature 2021-09-20 36.61 [place]anca University of 15:52:00 [facility] Respiratory rate 2021-09-20 18 /min [facility] 15:51:17 [facility] Body weight 2021-09-20 65.9 kg University 15:51:17 [facility] BMI 2021-09-20 29.88 kg/m2 [facility] 15:51:17 [facility] Oxygen saturation 2021-08-23 96 /min [facility] in Arterial blood 16:23:09 Radha DELANEY by Pulse oximetry [facility] Systolic blood 2020-11-29 162 mm[Hg] PER [facility] pressure 15:17:00 [facility] er Diastolic blood 2020-11-29 70 mm[Hg] PER [facility] pressure 15:17:00 [facility] er Heart rate 2020-11-29 62 /min [facility] 15:17:00 [facility] Body temperature 2020-11-[address] [facility] 15:17:00 [facility] Respiratory rate 2020-11-29 16 /[facility] 15:17:00 [facility] Oxygen saturation 2020-11-29 95 /min [facility] St Javed in Arterial blood 15:17:00 [facility]ter by Pulse oximetry Body height 2020-11-[address] [facility] 11:27:00 [facility] Body weight 2020-11-[address] [facility] 11:27:00 [facility] BMI 2020-11-29 24.82 kg/m2 [facility] 11:27:00 [facility] Procedures Procedure Date / Time Performing Clinician Source Performed XR SHOULDERS BILATERAL 2022-06-24 18:10:54 Lawanda Bocanegra [facility] PATHOLOGY BIOPSY 2021-09-20 16:18:00 Ashley Adkins [facility] INTERPRETATION MD Aurelio [facility] POCT GLUCOSE (AUTOMATED) 2021-03-13 17:02:00 Daniel Pitt versity of [facility] POCT GLUCOSE (AUTOMATED) 2021-03-13 13:32:00 Daniel Pitt [facility] of [facility] POCT GLUCOSE (AUTOMATED) 2021-03-13 01:28:00 Daniel Pitt vers[facility] of [facility] POCT GLUCOSE (AUTOMATED) 2021-03-12 20:56:00 Daniel Pitt versity of [facility] BASIC METABOLIC PANEL 2021-03-12 18:44:00 Daniel Pitt [facility] (NA, K, CL, CO2, GLUCOSE, Medica l Branch BUN, CREATININE, CA) N-TERMINAL PRO-BNP 2021-03-12 18:44:00 Kera Ch [facility] POCT GLUCOSE (AUTOMATED) 2021-03-12 16:05:00 Daniel Pitt versity of [facility] POCT GLUCOSE (AUTOMATED) 2021-03-12 12:15:00 Daniel Pitt versity of [facility] POCT GLUCOSE (AUTOMATED) 2021-03-12 01:26:00 Daniel Pitt versity of [facility] POCT GLUCOSE (AUTOMATED) 2021-03-11 21:06:00 Daniel Pitt vers[facility] of [facility] POCT GLUCOSE (AUTOMATED) 2021-03-11 16:00:00 Daniel Pitt versity of [facility] BASIC METABOLIC PANEL 2021-03-11 15:05:00 Jordan Will [facility] (NA, K, CL, CO2, GLUCOSE, Medica l Branch BUN, CREATININE, CA) POCT GLUCOSE (AUTOMATED) 2021-03-11 12:35:00 Daniel Pitt versity of [facility] POCT GLUCOSE (AUTOMATED) 2021-03-11 01:33:00 Daniel iPtt versity of [facility] POCT GLUCOSE (AUTOMATED) 2021-03-10 20:49:00 Daniel Pitt Uni versity of [facility] POCT GLUCOSE (AUTOMATED) 2021-03-10 16:30:00 Daniel Pitt [facility] POCT GLUCOSE (AUTOMATED) 2021-03-10 12:56:00 Daniel Pitt [facility] MAGNESIUM 2021-03-10 10:12:00 Siomara [facility] TROPONIN I 2021-03-10 10:12:00 Siomara [facility] BASIC METABOLIC PANEL 2021-03-10 10:12:00 Siomara [facility] (NA, K, CL, CO2, GLUCOSE, Medica l Branch BUN, CREATININE, CA) N-TERMINAL PRO-BNP 2021-03-10 10:12:00 Siomara [facility] HB ECG ROUTINE & RHYTHM 2021-03-10 10:08:12 Siomara [facility] POCT GLUCOSE (AUTOMATED) 2021-03-10 01:53:00 Daniel Pitt [facility] POCT GLUCOSE (AUTOMATED) 2021-03-09 21:41:00 Daniel Pitt [facility] POCT GLUCOSE (AUTOMATED) 2021-03-09 16:59:00 Daniel Pitt [facility] POCT GLUCOSE (AUTOMATED) 2021-03-09 13:45:00 Daniel Pitt [facility] BASIC METABOLIC PANEL 2021-03-09 08:44:00 Daniel Pitt [facility] (NA, K, CL, CO2, GLUCOSE, Medica l Branch BUN, CREATININE, CA) CBC WITH DIFF 2021-03-09 08:44:00 Beverly [facility] D-DIMER 2021-03-09 01:19:00 Jordan Will [facility] CLOSTRIDIUM DIFFICILE 2021-03-09 01:19:00 Prabhakar Childs [facility] FECAL PATHOGENS BY PCR 2021-03-09 01:19:00 Prabhakar Childs [facility] XR CHEST 1 VW 2021-03-09 00:05:00 Jordan Will [facility] URINALYSIS 2021-03-08 18:40:00 Mina Wu [facility] URINE CULTURE 2021-03-08 18:40:00 Mina Wu [facility] COVID-19 (ID NOW RAPID 2021-03-08 18:24:00 Mina Wu [facility] TESTING) Medical Branch LAB ONLY COVID 2021-03-08 18:24:00 Mina Wu [facility] INTERPRETATION [facility] CT ABDOMEN PELVIS W 2021-03-08 17:34:31 Mina Wu [facility] CONTRAST [facility] CT CHEST PULMONARY 2021-03-08 17:34:31 Mina Wu [facility] ANGIOGRAM [facility] FREE T4 2021-03-08 17:01:00 Ion Garcia [facility] HB ECG ROUTINE & RHYTHM 2021-03-08 16:30:28 Ion Garcia [facility] STRIP [facility] LIPASE 2021-03-08 16:22:00 Singer [facility] TROPONIN I 2021-03-08 16:22:00 Singer [facility] THYROID STIMULATING 2021-03-08 16:22:00 Mina Wu [facility] HORMONE [facility] COMP. METABOLIC PANEL 2021-03-08 16:22:[address] [facility] ([id number]) [facility] CBC WITH DIFF 2021-03-08 16:22:00 Singer Ionpolly Cardenas [facility] PROTHROMBIN TIME / INR 2021-03-08 16:22:00 Ion Garcia [facility] ACTIVATED PARTIAL 2021-03-08 16:22:00 Ion Garcia [facility] THRFormerly [facility] N-TERMINAL PRO-BNP 2021-03-08 16:22:00 Mina Wu [facility] HOSPITAL ADMISSION 2021-03-08 05:01:00 Doctor Unassigned, [facility] Branch CAROTID DUPLEX BILATERAL 2021-02-22 20:19:16 Kera Ch [facility] - BY VASCULAR LAB [facility] POCT GLUCOSE (AUTOMATED) 2021-02-22 16:00:00 Tyron Reyes [facility] POCT GLUCOSE (AUTOMATED) 2021-02-22 12:52:00 Tyron Reyes [facility] URIC ACID 2021-02-22 09:49:00 Tyron Reyes [facility] MAGNESIUM 2021-02-22 09:49:00 Siomara [facility] COMP. METABOLIC PANEL 2021-02-22 09:49:00 Tyron Reyes [facility] ([id number]) [facility] CBC WITH DIFF 2021-02-22 09:49:00 Siomara [facility] N-TERMINAL PRO-BNP 2021-02-22 09:49:00 Tyron Reyes [facility] POCT GLUCOSE (AUTOMATED) 2021-02-22 02:15:00 Tyron Reyes [facility] POCT GLUCOSE (AUTOMATED) 2021-02-21 21:16:00 Tyron Reyes [facility] POCT GLUCOSE (AUTOMATED) 2021-02-21 16:34:00 Tyron Reyes [facility] POCT GLUCOSE (AUTOMATED) 2021-02-21 13:03:00 Tyron Reyes [facility] OSMOLALITY URINE 2021-02-21 11:03:00 Siomara ned [facility] LEGIONELLA URINARY 2021-02-21 11:03:00 Siomara ned [facility] ANTIGEN TST [facility] URINE CULTURE 2021-02-21 11:03:00 Siomara ned [facility] URIC ACID 2021-02-21 09:10:00 Tyron Reyes [facility] MAGNESIUM 2021-02-21 09:10:00 Siomara ned [facility] OSMOLALITY, SERUM OR 2021-02-21 09:10:00 Tyron Reyes [facility] PLASMA [facility] TROPONIN I 2021-02-21 09:10:00 Siomara ned [facility] COMP. METABOLIC PANEL 2021-02-21 09:10:00 Siomara ned [facility] ([id number]) [facility] SEDIMENTATION RATE 2021-02-21 09:10:00 Siomara ned [facility] CBC WITH DIFF 2021-02-21 09:10:00 Siomara ned [facility] N-TERMINAL PRO-BNP 2021-02-21 09:10:00 Siomara ned [facility] CT ABDOMEN PELVIS W 2021-02-21 09:06:17 Siomara ned [facility] CONTRAST [facility] XR SHOULDER 2+ VW RIGHT 2021-02-21 09:05:04 Siomara ned [facility] CT HEAD WO CONTRAST 2021-02-21 09:04:43 Siomara ned [facility] POCT GLUCOSE (AUTOMATED) 2021-02-21 07:42:00 Tyron Reyes [facility] VITAMIN B12, LEVEL 2021-02-21 05:53:00 Siomara ned [facility] TROPONIN I 2021-02-21 05:53:00 Siomara ned [facility] IRON PANEL 2021-02-21 05:53:00 Siomara ned [facility] PROTHROMBIN TIME / INR 2021-02-21 05:53:00 Siomara ned [facility] VITAMIN D, 25-OH 2021-02-21 05:53:00 Siomara [facility] PROCALCITONIN 2021-02-21 05:53:00 Siomara [facility] POCT GLUCOSE (AUTOMATED) 2021-02-21 05:52:00 Prabhakar Childs [facility] XR FOREARM 2 VW RIGHT 2021-02-20 22:57:20 Jordan Kumari [facility] XR HUMERUS 2 VW RIGHT 2021-02-20 22:57:20 Jordan Kumari [facility] HB ECG ROUTINE & RHYTHM 2021-02-20 22:38:40 Jordan Kumari [facility] URINALYSIS 2021-02-20 22:10:00 Jordan Kumari [facility] SODIUM, URINE RANDOM 2021-02-20 22:10:00 Tyron Reyes [facility] PROTEIN CREAT RATIO URINE 2021-02-20 22:10:00 Tyron Reyes [facility] COVID-19 (ID NOW RAPID 2021-02-20 22:10:00 Jordan Kumari [facility] TESTING) Medical Branch LAB ONLY COVID 2021-02-20 22:10:00 Jordan Kumari [facility] BLOOD CULTURE SCREEN 2021-02-20 21:10:00 Jordan Kumari [facility] LACTIC ACID WHOLE BLOOD 2021-02-20 21:10:00 Jordan Kumari [facility] BLOOD CULTURE SCREEN 2021-02-20 21:02:00 Jordan Kumari [facility] PHOSPHORUS 2021-02-20 21:02:00 Tyron Reyes [facility] CREATINE KINASE 2021-02-20 21:02:00 Tyron Reyes [facility] URIC ACID 2021-02-20 21:02:00 Tyron Reyes [facility] LIPASE 2021-02-20 21:02:00 Jordan Kumari [facility] MAGNESIUM 2021-02-20 21:02:00 Tyron Reyes [facility] FERRITIN SERUM 2021-02-20 21:02:00 Tyron Reyes [facility] TROPONIN I 2021-02-20 21:02:00 Jordan Kumari [facility] THYROID STIMULATING 2021-02-20 21:02:00 [facility] COMP. METABOLIC PANEL 2021-02-20 21:02:00 Jordan Kumari [facility] ([id number]) Medical Branch LIPID PANEL ([id number])(TOTAL 2021-02-20 21:02:00 Tyron Reyes [facility] CHOLESTEROL, Medical Branch TRIGLYCERIDES, HDL) CBC WITH DIFF 2021-02-20 21:02:00 Jordan Kumari [facility] GLYCOSYLATED HEMOGLOBIN 2021-02-20 21:02:00 Tyron Reyes [facility] (A1C) [facility] N-TERMINAL PRO-BNP 2021-02-20 21:02:00 Jordan Kumari [facility] Medical Branch XR CHEST 1 VW 2021-02-20 20:58:38 Jordan Kumari [facility] EKG-12 LEAD 2021-02-20 20:52:14 Doctor Unassigned, [facility] [facility] [employer] ASSIGNMENT OF BENEFITS 2021-02-20 20:48:04 Doctor Unassigned, [facility] NOTICE OF PRIVACY 2021-02-20 20:47:37 Doctor Unassomar, [facility] PRACTICES [facility] CONSENT/REFUSAL FOR 2021-02-20 20:47:11 [facility] DIAGNOSIS AND TREATMENT [facility] [employer] REPORT OF PROCEDURE - 2020-11-29 14:12:20 Amor Muller [facility] ENDOSCOPY [facility] Center CYTOLOGY REQUEST 2020-11-29 14:08:18 Amor Muller [facility] CYTOLOGY 2020-11-29 14:08:00 Amor Muller [facility] UPPER ENDOSCOPY,FNA 2020-11-29 13:50:00 Amor Muller [facility] W/ULTRASOUND Center POCT-GLUCOSE METER 2020-11-29 11:45:00 Amor Muller [facility] Plan of Care Planned Activity Planned Date Details Comments Source Future Scheduled 2022-07-14 COVID-19 Vaccination [facility] Test 13:17:38 (#1) [code = COVID-19 And erson Cancer Vaccination (#1)] Center Future Scheduled 2022-07-14 HEPATITIS B VACCINES [facility] Test 08:40:04 (1 of 3 - 3-dose series) [code = HEPATITIS B VACCINES (1 of 3 - 3-dose series)] Future Scheduled 2022-07-14 COVID-19 VACCINE (#1) [facility] Test 08:40:04 [code = COVID-19 VACCINE (#1)] Future Scheduled 2022-07-14 SHINGLES VACCINES (1 [facility] Test 08:40:04 of 2) [code = SHINGLES VACCINES (1 of 2)] Future Scheduled 2022-07-14 65+ P[facility]UMOCOCCAL [facility] Test 08:40:04 VACCINE (2 - PCV) [code = 65+ PNEUMOCOCCAL VACCINE (2 - PCV)] Future Scheduled 2022-07-14 INFLUENZA VACCINE [facility] Test 08:40:04 [code = INFLUENZA VACCINE] Future Scheduled 2022-07-14 HEPATITIS B VACCINES [facility] Test 08:40:04 (1 of 3 - 3-dose series) [code = HEPATITIS B VACCINES (1 of 3 - 3-dose series)] Future Scheduled 2022-07-14 COVID-19 VACCINE (#1) [facility] Test 08:40:04 [code = COVID-19 VACCINE (#1)] Future Scheduled 2022-07-14 SHINGLES VACCINES (1 [facility] Test 08:40:04 of 2) [code = SHINGLES VACCINES (1 of 2)] Future Scheduled 2022-07-14 65+ [facility]UMOCOCCAL [facility] Test 08:40:04 VACCINE (2 - PCV) [code = 65+ PNEUMOCOCCAL VACCINE (2 - PCV)] Future Scheduled 2022-07-14 INFLUENZA VACCINE [facility] Test 08:40:04 [code = INFLUENZA VACCINE] Future Scheduled 2021-11-27 COVID-19 VACCINE (1) [facility] Test 23:55:17 [code = COVID-19 VACCINE (1)] Future Scheduled 2021-11-27 SHINGLES VACCINES [facility] Test 23:55:17 (#1) [code = SHINGLES VACCINES (#1)] Future Scheduled 2021-11-27 65+ PNEUMOCOCCAL [facility] Test 23:55:17 VACCINE (1 of 1 - PPSV23) [code = 65+ PNEUMOCOCCAL VACCINE (1 of 1 - PPSV23)] Future Scheduled 2021-11-27 INFLUENZA VACCINE [facility] Test 23:55:17 [code = INFLUENZA VACCINE] Future Scheduled 2021-06-[address] [facility] Test 00:00:00 (#1) [code = Medical Center INFLUENZA VACCINE (#1)] Future Scheduled 2021-06-[address] [facility] Test 00:00:00 (#1) [code = Medical Center INFLUENZA VACCINE (#1)] Future Scheduled 2020-10-19 DEPRESSION SCREENING [...] 00:00:00 (1 of 1 - Medical Center KXIC57_Hyyxixw PCV13) [code = PNEUMOCOCCAL 65+ YRS (1 of 1 - EGPD20_Giqohyx PCV13)] Future Scheduled 1998 PNEUMOCOCCAL 65+ YRS [facility] Test 00:00:00 (1 of 1 - Medical Center BPGB62_Cwevkgq PCV13) [code = PNEUMOCOCCAL 65+ YRS (1 of 1 - RGQG69_Alhchog PCV13)] Future Scheduled 1983 SHINGLES VACCINES ([address] [facility] Test 00:00:00 of 2) [code = Medical Center SHINGLES VACCINES (1 of 2)] Future Scheduled 1983 SHINGLES VACCINES ([address] [facility] Test 00:00:00 of 2) [code = Medical Center SHINGLES VACCINES (1 of 2)] Future Scheduled 1954 [...] [facility] Test 00:00:00 [code = COVID-[address] VACCINE (1)] Encounters Start End Encounter Admission Attending Care Care Encounter Source Date/Time Date/Time Type Type Clinicians Facility Department ID 2021-07-27 Outpatient RENZO [facility] Surgery [id number] [facility] 00:46:32 AMOR 2021-06-19 Outpatient SYSTEM, [facility] [id number] 16:55:25 PROVIDER Dani fly 2022-06-27 2022-06-27 Telephone Luis 1.2.840.1 [id number] [facility] 00:00:00 00:00:00 Rina Figueroa 53197.1.1 it y of 3.412.2.7 [place] .3.136334 .8 [facility] 2022-06-24 2022-06-24 Office Kelley, 1.2.840.1 [id number] Methodi 13:20:00 13:39:01 Visit Lawanda Raphael 49552.1.[address] 3.430.2.7 Hospit a .3.587108 l .8 2022-06-24 2022-06-24 Office Kelley, 1.2.840.1 [id number] Methodi 13:20:00 13:39:01 Visit Lawanda Raphael 58847.1.[address] 3.430.2.7 Hospit a .3.822912 l .8 2022-06-24 2022-06-24 [facility] [id number] 778 [place] 00:00:00 00:00:00 LAWANDA Granados[address] 2022-06-24 2022-06-24 Travel 1.2.840.1 1.2.625.786 [id number] Methodi 00:00:00 00:00:[address] 3.430.2.7 0.2.7.3.698 Ho spita .3.197857 084.8 l .8 2022-06-24 2022-06-24 Travel 1.2.840.1 1.2.075.258 [id number] Methodi 00:00:00 00:00:[address] 3.430.2.7 0.2.7.3.698 Ho spita .3.716116 084.8 l .8 2022-05-13 2022-05-13 Travel 1.2.840.1 1.2.429.885 [id number] Methodi 00:00:00 00:00:[address] 3.430.2.7 0.2.7.3.698 Ho spita .3.179409 084.8 l .8 2022-05-13 2022-05-13 Travel 1.2.840.1 1.2.504.941 [id number] Methodi 00:00:00 00:00:[address] 3.430.2.7 0.2.7.3.698 Ho spita .3.884537 084.8 l .8 2022-03-14 2022-03-14 Outpatient Chris PUENTES, [facility] [id number] Univers 10:20:00 10:20:00 TA zamora [facility] 2022-02-12 2022-02-12 Telephone Luis 1.2.840.1 [id number] Univers 00:00:00 00:00:00 Rina Figueroa 21726.1.1 it y of 3.412.2.7 [place] .3.073036 MD Whitley8 [facility] 2021-11-28 2021-11-28 Telephone Mimi 1.2.840.1 [id number] Univers 00:00:00 00:00:00 hector, 24024.1.1 ity of [place] 3.412.2.7 [place] .3.466817 MD Soto [facility] 2021-10-21 2021-10-21 Documentat Yareli, 1.2.840.1 [id number] Univers 00:00:00 00:00:00 ion Sang Alexys 87684.1.1 i ty of 3.412.2.7 [place] .3.148495 MD Soto [facility] 2021-10-03 2021-10-03 Telephone Marcus, 1.2.840.1 [id number] Univers 00:00:00 00:00:00 Ashley 99570.1.1 ity of 3.412.2.7 [place] .3.495105 MD Soto [facility] 2021-10-01 2021-10-01 Telephone Barronelizabethellis, 1.2.840.1 [id number] Univers 00:00:00 00:00:00 Rina A 05794.1.1 it y of 3.412.2.7 [place] .3.456860 MD Soto [facility] 2021-09-20 2021-09-20 Office JACE Adkins, 1.2.840.1 [id number] Univers 10:40:00 10:40:00 Visit Ashley 71294.1.1 ity of 3.412.2.7 [place] .3.576331 MD Soto [facility] 2021-09-20 2021-09-20 Travel 1.2.840.1 1.2.704.294 [id number] Univers 00:00:00 00:00:00 19509.1.1 350.1.13.41 ity of 3.412.2.7 [place].698 [place] .3.377[place] 084.8 MD Soto [facility] 2021-08-23 2021-08-23 Office JACE Benitez, 1.2.840.1 [id number] [facility] 11:30:00 12:02:10 Visit Kinsey 01952.1.1 ity of 3.412.2.7 [place] .3.047944 .8 [facility] 2021-08-23 2021-08-23 Travel 1.2.840.1 1.2.169.301 [id number] Univers 00:00:00 00:00:00 25625.1.1 350.1.13.41 ity of 3.412.2.7 [place]3.698 [place] .3.069996 084.8 MD Whitley8 [facility] 2021-07-24 2021-07-24 Outpatient JACE BENITEZ MDA MDA [id number] 09:57:59 11:35:29 KINSEY bill 2021-07-11 2021-07-11 Outpatient JACE BENITEZ MDA MDA [id number] 07:24:23 16:14:43 KINSEY bill 2021 2021 Outpatient SRAVANI MDA [id number] 09:43:10 09:43:10 Dani bill 2021-07-04 2021-07-04 Outpatient JACE BENITEZ MDA MDA [id number] 08:03:03 12:45:35 KINSEY bill 2021-06-21 2021-06-21 Outpatient JACE ADKINS [facility] MDA [id number] 09:37:53 11:15:25 ASHLEY bill 2021-06-21 2021-06-21 Outpatient JACE ADKINS [facility] MDA [id number] 09:31:19 09:31:25 ASHLEY bill 2021-06-11 2021-06-11 Travel 1.2.840.1 1.2.502.218 [id number] Methodi 00:00:00 00:00:[address] 3.430.2.7 0.2.7.3.698 Ho spita .3.279692 084.8 l .8 2021-04-18 2021-04-18 Outpatient R DIMA [facility] [id number] Univers 14:00:00 14:00:00 SENDIL ity [facility] 2021-03-14 2021-03-14 Transition Jaren Bullard 1.2.840.114 [id number] Univers 00:00:00 00:00:00 of Care Tamikamirna Zamudio 350.1.13.10 i [place] [id number] [facility] [address] 2021-03-08 2021-03-13 Emergency Mina Wu [facility] 1.2. 840.114 [id number] Univers 11:13:00 14:30:00 Daniel Pitt 350.1.13.10 ity [place] [id number] [facility] [address] 2021-03-08 2021-03-13 Outpatient X [facility] [id number] Univers 11:13:00 14:30:00 DANIEL ityuko [facility] 2021-03-12 2021-03-12 Outpatient R DIMA [facility] [id number] Univers 08:30:00 08:30:00 SENDIL ity [facility] 2021-03-08 2021-03-08 Telephone Dima [facility] 1.2.465.622 [id number] Univers 00:00:00 00:00:00 Kera Marrufo 350.1.13.10 [place] [id number] [address] 2021-03-06 2021-03-06 Office Dima [facility] 1.2.840.114 [id number] Univers 13:42:37 14:43:04 Visit Kera Marrufo 350.1.13.10 [place] [phone] Ok dical nal 9 [facility] 2021-03-06 2021-03-06 Outpatient R DIMA [facility] [id number] Univers 14:00:00 14:00:00 SENDIL ity of [facility] 2021-03-05 2021-03-05 [facility] 1.2.840.114 [id number] Univers 15:09:13 16:42:02 Visit Fran CORY 350.1.13.10 i ty of [facility] 4.[place].2.[place] [id number] [facility] [address] 2021-03-05 2021-03-05 [facility] [id number] Univers 15:15:00 15:15:00 FRAN ityuko [facility] 2021-02-25 2021-02-25 Transition Jaren Arambula 1.2.840.114 [id number] Univers 00:00:00 00:00:00 of Care Luis Felipe Zamudio 350.1.13.10 ity [facility] 4.2.7.2.686 [facility] [phone] [facility] [address] 2021-02-20 2021-02-22 Inpatient X [facility] [id number] Univers 14:56:00 17:10:00 TYRON ity of [facility] 2021-02-20 2021-02-22 [facility] Kumari Jordan [facility] 1.2.840.11 [id number] Univers 14:56:00 17:10:00 Encounter Prabhakar Childs 350.1.13.10 ity of [place] 4.2.7.2.686 [facility] [phone] [facility] 081 Branch 2020-11-29 2020-11-29 [facility] [id number] 09:49:00 15:37:00 Encounter Amor Wiggins [facility] 2020-11-29 2020-11-29 Anesthesia Vandana Moran [facility] [id number] [facility] 13:55:00 14:17:00 Event Ronda Joseph [facility] 2020-11-29 2020-11-29 [facility] [id number] 12:00:00 13:00:00 Amor Wiggins [facility] 2020-11-29 2020-11-29 Travel [facility] [id number] [facility] 00:[facility]00 00:00:00 [facility] 2020-11-26 2020-11-26 [facility] [id number] 11:40:00 23:59:00 Encounter [facility] 2020-11-26 2020-11-26 Outpatient EL [facility] [id number] [facility] 00:00:00 00:00:00 2020-11-26 2020-11-26 Travel [facility] [id number] [facility] 00:[facility] 00:00:00 [facility] 2020-05-24 2020-05-24 Outpatient COH COH PDPFEIM ZCM COH 00:00:00 00:00:00 [facility]- 123 Results Test Description Test Time Test Comments Results Result Comments Source Pathology Biopsy Interpretation 2021-09-23 19:25:36 Test Item Value Reference Range Interpretation Comme nts Addendum t4snzXExISKvuXY9XlBiJIDub7zli2PawGSoiHJcTUawtHYmjdWxdt78mMC8iJ74KR0bUGSjTmB2MWNd poU0Dnb6VLCsUGLgvMJpO468j1ocq6gzehMilCP6jTruFSToehknYzG2MPrzTTHrquwcLIg7ULebYBKu aQH6WBCngRTrF3XfMJAfVV5snfw6ZRU1JLeaVYIhAcS 1 (test 2NNTjqHCjGBXovYsfOAoxi469DYI0YjTpGKHbolXamTiqwZ5lJaGfEURPaSy2tBDrHWFiYLAsqPintkG bKUEyARJcvdL3sFEznNIid8IfhMujtdNiiDF5FRUrNGIlGMP3pEWlwoEwDWsvwBfqAOOjFNutEODvxWC pADNcAHAolbP8yCYyzARhmOV5QRxjOQGts7cvWb0ZUI code = yiJ1OGXK6GBWUsP1FYREMLEZANWH9SQAShFD8zQ5kSLTJWFrmNHW3HONaGLITIE55LCDKPUN6RFQzFDP czIQoYPHAFQNOGWMhAKGVECMlPZCUlK6HBJRWLM2yXYPRQKyTHZEYVPYhZKTSXBvHWEP7TGRVNGBSSSc dGUKXTXBhcZM2KUABZWSQfXLbJO1LUFWYPO6MFWsecU 37) ZArjUDgYOHgC26td8LhiVGflDprPOGyDqFuAI7acLDpfZ== Submitted f5nwuSFfLASiwED8KmFgNCHaz2oph0BfyBHskBUrRSodzVWdthEplz72eTD9rN63DD9bDKEzWjK0GHDm prV2Vdz0CORjBOTasWRlT189a5qom2qwxfXmtWV2nDhhFOQzjcouWjM7NVamDBKnqjbeOBg9JSzyHVVi dEB9ZMIeeLMqS9StXZLwSL6hrgf3SNI0VBgrAXDsDmE Clinical 3PBTrpFPrRKMbtSktPPgpo389ECT3MuYnPZWidtLsfNllsZ4qMgFxNYPNRW5oaUKskJSjXhZ7naQxgkA cjJ7hKcZvQPQpb0Mmo9Wof4swsfDyGRD9PfBrSKIbpiuwACD9 History (test code = 70084) Diagnosis m0zwzVEpLUUviWK4HtXcSLKsn8aof9TugMOyrMFkSPajzGQsqzNqow24sWD1mG24IF4kPDXnPqO4WBFi mfU7Hem6WSJkUGFsnSTgV558i3xvg3bljfVzyFW5PUYlPJSrI7SpUL2mNWJfaTEyF12gqLLkMOJ9KTWg RREsrGYfBYTbLOA9RJHjgXKbK1ooFLOoVU9zbqlsOJg (test hXUurDJRvjBY1QAJabWVnH1TxEZSmEGjcEBYgjah9CuIpDp8ygZQqkGklAUpdKFBhXRFbFVxsXSCfMqY mQ7BvNQK6ZPRbvF6gNMFcY9y7XZjqjRPjGDgdv3MfkTMgGRtzsHfmxnWqMHajuJ1jCGDqfNV1PWvqcWT yXGxpNzIwXGxpbjcyMFxjZjAgSHlwZXJwbGFzdGljIG code = QfiXunjNFni3HiUZSdy8wfHAdfaDbdlvYwzvVjs9KfPBBnNKM6dtJvXTW5maZ2eEH2mTinYUgbsBTgh8 ZjoZUyeUNlRUKwaCzqmjShAQCySWVpUJZkHUQcg9R4HASlOEmxux7hGCRrfsOZFFCcA30vpDVtiN8ywO FyfQ== 34) Comment s5qmzCUgHBBnmCZ3OyYkXFTwk9plu8BjlOBgcGMkMJvrbUHnuuRmha44sXR0zK45UM8uJJAxAsQ0EASu ilB1Ktc4WPJrXBNkkWGlO768x6gxw3svnlBxlMA0dFytVTFuufwwZpJ3VYawIIZovdjtUUp6YWjfTYQq qWT3MUEvjQNxO1KqURLwQC4icun2LTK7NPmwBBXwJiG (test 3PEJjuUMrXHUnkEzrQMxnl342WBE7CoToOGApmmZcoOvzrZgkwM1gGsPkBIHJvrOhVIFtvHfvjnNjXEN uy3HumDHsIFylBtMlW96bw9nbAVVtKLDfdJ23cLMhaKahzzWbRKFgs37lEzOouOC1yjPxEVHru06gSBE hUXKraiJvsfEpkVy0NDZ6wAExHGU7GnZsdMCkkU== code = 9835) Gross d8lsuTUdFWPcyGPAKIhqESjzqnYiSTLlwSBoN2YbppvgSHxxQV8yHH6vpKvvhZHtuQOaZX3ILSCdFgUx KTKryEFrrvIfGuIqKZKcaBWbeVO2OTKjIW4agzupBUrxMHpbHBIqouS2UEKjaICmN0KjZOEpPM8cygvn YAN1BNicjA2japPZFemqVy9miJIgfOloCkBwLrYzVXX Descripti mBGVaJQIrnSjaZXHhCEc6tN1YXqucD91xm7D9Amo2ZDRaJSKzP0RzPK8lZRJnyBDkJ70GXhrnUEG2SDN QAutsSGFuBX7Lg7elQLKusMYxVSX9IKiakENzBEUvVGGsZNv4GYIaHQmupYNvZV5nbYrcHonqaNtpl1R ubBVfFXxdGXIaOKWxWEzyFJKsTK1HZmCeTXIuTCTgPI on (test WlRVv1YHz2OR7MGvBgBDRtVTi2ABIbFJGgHDq1KSxzOL0QEBo7BHp8CIh2WWL0GAP5RPItLSKvTnGfQL WcGORyHQtjMSlhypUbKRWtLDDlMEamCeytOUsfT34snNcytJ3hNxjtpkElVBJ9AALqasXMKmouyUJihk xlcGljTmVzdERvYzEgDQpcbHRycGFyXGxpbjBccmluM code = VDKTmgwgOCxxHwvVUTpWCbbreVvNMDpqS2tQVQhrFG9UVBnoVKplWBrYX6zjJS0cEUgZMlly0aknkUhR G2pKS15AU4nLDMcixuif5BvuLoozIpzteWxERA7yQOdLHD/y1HbDTjtOAWfuFK8MUPzPGBfQVJbPWF4O C6vp7kynpNexFP1IWdhSB81ZKpvXN26MAlzTQ0uDQIh 327922809 MfZwTXobBX9mnkxciwQiCQPsCXoga3TsWGIodELrC9OyWIilZZ08dNFdnDxbp4KgoLs6pGNaFQtyDBGq IhUqFEBfr8NkS8V0AAOeGFepw2wlGRLjXDves1IsYUfIHRJWFF5VYM3yfBU4FOhYY9HHO4gGrZHjCYR9 jSP2ZPIJWbvboCT0eRC4yZ72DZVzMXKlrROvEHchS58 1) 1CKR5FQUyUSccz1uvBHJeOKrwc2JwFBtAXSDPDQ5NDN5bqNM4ODyDP7GZAZbbSLFkAlyvjRYNVOL8TGz bkNqypYv1v0ehyVXsx6n0XHucIBO8jNmmfODxccpjrHPxoGiiqeWvTK6LPQMohKQVMPK4WH9jWLj8GOa kNYFoD4HuP8FcfqVkuSAfCRTajzGao6wdNXG7DMPuyB SynDXyVbCcTaamOLU4TTKtWFwtMR1BYJTvJIE6RRufgD06gWQlIO3SDOCnIOgrJWBfWPBrroZ3QKAmqV HkQGH3ZH0geVzsvGBbqvvyffR7HP4SlI== Disclaime v7qboIPxVGRjiVOqSlWsHARcMNFkp5gpKLUaqJTtJzChYnDiLqRlYculaRGmSDDzDjSws8rno738bUDu p5xjRRBbUiE9bLWwOLJjoSPwS352MMVlLWseu2dft1PyVRWybMCzh0H9GXGFbagsyWz4kXlzM19hr7E2 TulbD9pyFBGsMNHaC5ApJH1gKJHrTeg8YNH5OQJ0ASL r (test tFXQcL7XoXM1iDZMjsGMjEQk6b3cevCryCYBqZRY7t7cpTZqjhjXvXJ5qvp6zgMt1n6whgjMsIONeSVX qeDOSYRSzO6PveWpgQk1jyOn6pBzjQjnoLVC5Rxo1QQ0pep30txv9kMgjUFZyylskEyX1KUpkNLBojoh mSHo4NBkrOHNjyBP2IHEpfOSdP4MaXPRhEM7qxxl0XM code = V4PGmbADZxSvS9BKKedIQuAMRvbSzuKVxmw658EIJ6BfYwDQ2wG1Sxd0K7hU4vfHCwOAEqvJGuMzGoBF Ulqw8ekOVqUWqkm3BiYKP5mcZ4ePPpqYNzDCLkEA48Cursg6HpIrjfGOO8XSCngdKae2Gpd2isGyZjmb KtA0uxA5GrMZRtSDArEDRwWnBsqsMxn0Vif1PicJSua 9844) Tg6t5axEYKgQMJakLokb5ozWMY3DYKcW8V2sPAqk0laNBfiSAFpfCC9ouO3PIJrbVBsD6AoyC3oLIOyG I8xnmn4s2wyEWM3GUkhTIEbCuF6pgH7GXXklLLpARTgxJzxADznh564TNW2CcPrBETlj2WbX0RjiVxpX 18ciGmsI20vFMHvjSltdK4elCheoY6bJhNaTnTmDFrb dIaivJTxwaipPPuxccA1YZwcjjyvBCKeOYcrA9yaNgVzHWZfbNebSHdmo7GeXOWzYDRnWoavopH5JSIW e27wRMEgo8AbSHDxbS0nhDXkGWxvryLuyPK1QKmwyhGwAlJojqIvPUXmgO5vVALsRT0qXHCnavSxwf7a ccWxZSPsPWFfJ9AhwqpebRgacoKgWLEocc3blgKrKTN 6YGAEKX2SGPWgDKPzs82iONLzjRaypQ4voTFjlgTqXHVct5IvnI3abYQYYJBkP7mdSQ0uSYzku1IabMH hlCTpcQV9VBAcg0JjWoQsfwEudHHfxBPeJ5QbpPmlE2yoHSWfKQAvpaUgdESvj9JdVDUayPD5cRHhCC5 WQiEBf59sEHAiZKSLpeJoPNZygKxkuRG6isF3nJ2rYx HFDaEbtPIdeVYnUyziYDTwe548rf8gygT3JVPuBUMaryzef2OeDJOtGUDjrU32SBGtITTkzg3hvpsrmE YukpZhT9Biuzs7mW9tZPQuOTgqTXAvKZCpErJiuWItKgReHePahAnwrTxePTchHwYqWEUaFHojZ3ddJt FcZnMyMlxwYXJ9 [facility] Cancer SolsberryPOCT GLUCOSE (AUTOMATED)2021-03-13 17:08:53 Test Item Value Reference Range Interpretation Comments POCT GLU (test code = 6559216178) 125 mg/dL 70-110 H Lab Interpretation (test code = Abnormal 79535-0) [facility] GLUCOSE (AUTOMATED)2021-03-13 13:43:14 Test Item Value Reference Range Interpretation Comments POCT GLU (test code = 4092270091) 102 mg/dL 70-110 Lab Interpretation (test code = Normal 06658-0) [facility] GLUCOSE (AUTOMATED)2021-03-13 01:32:16 Test Item Value Reference Range Interpretation Comments POCT GLU (test code = 9389502810) 151 mg/dL 70-110 H Lab Interpretation (test code = Abnormal 18995-2) [id number] 22:10:14 Test Item Value Reference Range Interpretation Comments NT-proBNP (test code 1680 pg/mL See_Comment H [Autom ated = [id number]) message] The system which generated this result transmitted reference range : <=450. The reference range was not used to interpret this result as normal/abnormal . CARL (test code = CARL) Biotin has been reported to cause a negative bias, interpret results relative to patient's use of biotin. Lab Interpretation Abnormal (test code = 99532-0) [facility]12 21:33:57 Test Item Value Reference Range Interpretation Comments POCT GLU (test code = 2863233920) 182 mg/dL 70-110 H Lab Interpretation (test code = Abnormal 91009-1) [facility] (NA, K, CL, CO2, GLUCOSE, BUN, CREATININE, CA)2021-03-12 19:36:16 Test Item Value Reference Range Interpretation Comments NA (test code = 133 mmol/L 135-145 L 9578885560) K (test code = 4.7 mmol/L 3.5-5.0 5574487463) CL (test code = 104 mmol/L 98-108 5088353796) CO2 TOTAL (test code = 20 mmol/L 23-31 L 7423972080) AGAP (test code = 2-16 7252287518) BUN (test code = 23 mg/dL 7-23 4928148258) GLUCOSE (test code = 210 mg/dL 70-110 H 3835663781) CREATININE (test code = 1.20 mg/dL 0.50-1.04 H 4080480865) CALCIUM (test code = 9.2 mg/dL 8.6-10.6 5283002104) eGFR (test code = mL/min/1.73m2 5659346411) CARL (test code = CARL) Association of [...] tests). Lab Interpretation Abnormal (test code = 56575-5) [facility] GLUCOSE (AUTOMATED)2021-03-12 16:27:07 Test Item Value Reference Range Interpretation Comments POCT GLU (test code = 2404400507) 136 mg/dL 70-110 H Lab Interpretation (test code = Abnormal 62880-4) [facility] GLUCOSE (AUTOMATED)2021-03-12 12:46:34 Test Item Value Reference Range Interpretation Comments POCT GLU (test code = 9799471450) 93 mg/dL 70-110 Lab Interpretation (test code = Normal 03066-4) [facility] GLUCOSE (AUTOMATED)2021-03-12 10:18:23 Test Item Value Reference Range Interpretation Comments POCT GLU (test code = 7226420357) 143 mg/dL 70-110 H Lab Interpretation (test code = Abnormal 05894-4) [facility] GLUCOSE (AUTOMATED)2021-03-12 10:18:17 Test Item Value Reference Range Interpretation Comments POCT GLU (test code = 2168614199) 94 mg/dL 70-110 Lab Interpretation (test code = Normal 76158-0) [facility] GLUCOSE (AUTOMATED)2021-03-12 01:30:35 Test Item Value Reference Range Interpretation Comments POCT GLU (test code = 6889011084) 167 mg/dL 70-110 H Lab Interpretation (test code = Abnormal 55054-7) [facility] GLUCOSE (AUTOMATED)2021-03-11 21:25:48 Test Item Value Reference Range Interpretation Comments POCT GLU (test code = 6380506455) 145 mg/dL 70-110 H Lab Interpretation (test code = Abnormal 71261-2) [facility] METABOLIC PANEL (NA, K, CL, CO2, GLUCOSE, BUN, CREATININE, CA)2021-03-11 16:22:13 Test Item Value Reference Range Interpretation Comments NA (test code = 134 mmol/L 135-145 L 2680502781) K (test code = 3.3 mmol/L 3.5-5.0 L 0140225449) CL (test code = 103 mmol/L 98-108 8578860566) CO2 TOTAL (test code = 24 mmol/L 23-31 3613869173) AGAP (test code = 2-16 2949283222) BUN (test code = 25 mg/dL 7-23 H 1039669827) GLUCOSE (test code = 144 mg/dL 70-110 H 9481922987) CREATININE (test code = 1.18 mg/dL 0.50-1.04 H 0056649694) CALCIUM (test code = 8.9 mg/dL 8.6-10.6 8027817266) eGFR (test code = mL/min/1.73m2 4841050296) CARL (test code = CARL) Association of [...] tests). Lab Interpretation Abnormal (test code = 73130-2) [facility] [id number] 16:00:45COVID DMT InterpretationInterpretation/Recommendations: Molecular NAAT Tests for [...] week of symptoms). Tests for IgM and/or IgG Antibodies to the SARS-CoV-2 Virus: If the patient develops COVID-19 illness in the future, testing for IgM and IgG antibodies approximately 3 weeks [...] testing the patient has had at [facility], including molecular NAAT testing (more commonly known as PCR testing and Rapid ID Now testing) and antibody testing. It does not take into account any testingthat a patient has had outside of the [facility] medical record. [facility] LABORATORY SERVICESCOVID [id number]-AzP-7 Rapid ID NOW (no units) ? ? Date ? Value ? 03/08/2021 ? Not Detected ? ? ? 02/20/2021 ? Not Detected ? [facility]2021-03-11 01:41:12 Test Item Value Reference Range Interpretation Comments POCT GLU (test code = 7418980177) 150 mg/dL 70-110 H Lab Interpretation (test code = Abnormal 92292-1) [facility] GLUCOSE (AUTOMATED)2021-03-10 20:54:33 Test Item Value Reference Range Interpretation Comments POCT GLU (test code = 7823682120) 152 mg/dL 70-110 H Lab Interpretation (test code = Abnormal 01432-6) [facility] GLUCOSE (AUTOMATED)2021-03-10 17:21:37 Test Item Value Reference Range Interpretation Comments POCT GLU (test code = 1330943151) 135 mg/dL 70-110 H Lab Interpretation (test code = Abnormal 92678-4) [facility] Center[facility] BY [id number] 14:47:37 Test Item Value Reference Range Interpretation Comments Campylobacter (jejuni, Negative Negative, coli and upsaliensis) Indeterminate, (test code = 58640-3) See comment Plesiomonas shigelloides Negative Negative, (test code = 12907-4) Indeterminate, See comment Salmonella (test code = Negative Negative, 81815-8) Indeterminate, See comment Yersinia enterocolitica Negative Negative, (test code = 32374-2) Indeterminate, See comment Vibrio (test code = Negative Negative, 78809-1) Indeterminate, See comment Vibrio cholerae (test Negative Negative, code = 16494-6) Indeterminate, See comment Enteroaggregative E. coli Negative Negative, (EAEC) (test code = Indeterminate, 22470-7) See comment Enteropathogenic E. coli Negative Negative, N/A, (EPEC) (test code = Indeterminate, 99127-0) See comment Enterotoxigenic E. coli Negative Negative, (ETEC) (test code = Indeterminate, 70022-1) See comment Shiga toxin-Producing E. Negative Negative, coli (STEC) (test code = Indeterminate, 32666-9) See comment Shigella/Enteroinvasive Negative Negative, E. coli (EIEC) (test code Indeterminate, = 27116-2) See comment Cryptosporidium (test Negative Negative, code = 31909-9) Indeterminate, See comment Cyclospora cayetanensis Negative Negative, (test code = 16625-3) Indeterminate, See comment Entamoeba histolytica Negative Negative, (test code = 55660-3) Indeterminate, See comment Giardia lamblia (test Negative Negative, code = 99618-2) Indeterminate, See comment Adenovirus F 40/41 (test Negative Negative, code = 03243-3) Indeterminate, See comment Astrovirus (test code = Negative Negative, 80262-1) Indeterminate, See comment Norovirus GI/GII (test Negative Negative, code = 34348-7) Indeterminate, See comment Rotavirus A (test code = Negative Negative, 87034-5) Indeterminate, See comment Sapovirus (test code = Negative Negative, 56994-2) Indeterminate, See comment CARL (test code = CARL) Negative:A negative result does not rule-out infection. ?This assay does not test for all potential infectious agents of diarrheal disease. Positive:A positive test result does not necessarily indicate the presence of viable organism. Lab Interpretation (test Normal code = 63739-7) [facility] [id number] 13:28:07 Test Item Value Reference Range Interpretation Comments URINE CULTURE (test No aerobic growth (< code = 630-4) 1000 CFU/mL) [facility]2021-03-10 13:02:24 Test Item Value Reference Range Interpretation Comments POCT GLU (test code = 7166528583) 91 mg/dL 70-110 Lab Interpretation (test code = Normal 77230-2) [facility]TR[facility]IN [id number] 11:08:20 Test Item Value Reference Range Interpretation Comments TROPONIN I (test <0.012 See_Comment [Automated code = 3547974905) message] The system which generated this result [...] ? Lab Interpretation Normal (test code = 57508-5) [facility]MINAL [id number] 11:05:18 Test Item Value Reference Range Interpretation Comments NT-proBNP (test code 1740 pg/mL See_Comment H [Autom ated = 5087208107) message] The system which generated this result transmitted reference range : <=450. The reference range was not used to interpret this result as normal/abnormal . CARL (test code = CARL) Biotin has been reported to cause a negative bias, interpret results relative to patient's use of biotin. Lab Interpretation Abnormal (test code = 12205-0) [facility] METABOLIC PANEL (NA, K, CL, CO2, GLUCOSE, BUN, CREATININE, CA)2021-03-10 10:56:38 Test Item Value Reference Range Interpretation Comments NA (test code = 133 mmol/L 135-145 L 0842026966) K (test code = 4.5 mmol/L 3.5-5.0 5668963359) CL (test code = 106 mmol/L 98-108 1211465754) CO2 TOTAL (test code = 23 mmol/L 23-31 3690610223) AGAP (test code = 2-16 6131367540) BUN (test code = 27 mg/dL 7-23 H 1442591877) GLUCOSE (test code = 112 mg/dL 70-110 H 0953005957) CREATININE (test code = 1.11 mg/dL 0.50-1.04 H 6271444213) CALCIUM (test code = 8.5 mg/dL 8.6-10.6 L 8026053851) eGFR (test code = mL/min/1.73m2 0979076722) CARL (test code = CARL) Association of [...] tests). Lab Interpretation Abnormal (test code = 77142-5) [facility]UM2021-05-23 10:56:38 Test Item Value Reference Range Interpretation Comments MAGNESIUM (test code = 2860494326) 2.0 mg/dL 1.7-2.4 Lab Interpretation (test code = Normal 76358-2) [facility] GLUCOSE (AUTOMATED)2021-03-10 01:56:26 Test Item Value Reference Range Interpretation Comments POCT GLU (test code = 2547258057) 229 mg/dL 70-110 H Lab Interpretation (test code = Abnormal 10813-8) [facility] GLUCOSE (AUTOMATED)2021-03-09 22:09:58 Test Item Value Reference Range Interpretation Comments POCT GLU (test code = 4547996592) 141 mg/dL 70-110 H Lab Interpretation (test code = Abnormal 54668-0) [facility] GLUCOSE (AUTOMATED)2021-03-09 18:37:51 Test Item Value Reference Range Interpretation Comments POCT GLU (test code = 3627061901) 229 mg/dL 70-110 H Lab Interpretation (test code = Abnormal 52382-8) [facility] GLUCOSE (AUTOMATED)2021-03-09 13:56:35 Test Item Value Reference Range Interpretation Comments POCT GLU (test code = 5336024115) 181 mg/dL 70-110 H Lab Interpretation (test code = Abnormal 10496-3) [facility] Metabolic Panel (NA, K, CL, CO2, GLUCOSE, BUN, CREATININE, CA)2021-03-09 10:31:38 Test Item Value Reference Range Interpretation Comments NA (test code = 133 mmol/L 135-145 L 8363569650) K (test code = 3.9 mmol/L 3.5-5.0 7276619989) CL (test code = 104 mmol/L 98-108 8526278995) CO2 TOTAL (test code = 20 mmol/L 23-31 L 1804160675) AGAP (test code = 2-16 3492887003) BUN (test code = 24 mg/dL 7-23 H 5038828969) GLUCOSE (test code = 178 mg/dL 70-110 H 4272007286) CREATININE (test code = 1.14 mg/dL 0.50-1.04 H 4524151900) CALCIUM (test code = 9.1 mg/dL 8.6-10.6 6946112200) eGFR (test code = mL/min/1.73m2 4071388843) CARL (test code = CARL) Association of [...] tests). Lab Interpretation Abnormal (test code = 74076-7) [facility] with [id number] 09:24:40 Test Item Value Reference Range Interpretation [...] (test code = 50.2 fL 39.0-49.9 H 03328-8) RDW-CV (test code = 14.9 % 12.0-15.5 788-0) PLT (test code = See_Comment [Automated 777-3) message] The sy stem which generated this result transmitted reference range : 166 - 358 10*3/ ?L. The reference r cheyanne was not used to interpret this result as normal/abnormal . MPV (test code = 10.1 fL 9.5-12.9 09782-5) NRBC/100 WBC (test See_Comment [Automat ed code = 8249529956) message] The system which generated this result transmitted reference range : 0.0 - 10.0 /100 WBCs. The refer ence range was not u sed to interpret th is result as normal/abnormal . NRBC x10^3 (test code <0.01 See_Comment [Auto mated = 2125808549) message] The s ystem which generated this result transmitted reference range : 10*3/?L. The reference range was not used to interpret this result as normal/abnormal . GRAN MAT (NEUT) % 66.3 % (test code = 770-8) IMM GRAN % (test code 0.40 % = 7380428014) LYMPH % (test code = 28.5 % 736-9) MONO % (test code = 4.6 % 5905-5) EOS % (test code = 0.0 % 713-8) BASO % (test code = 0.2 % 706-2) GRAN MAT x10^3(ANC) 3.61 10*3/uL 1.88-7.09 (test code = 9096647995) IMM GRAN x10^3 (test <0.03 0.00-0.06 code = 5781283598) LYMPH x10^3 (test code 1.55 10*3/uL 1.32-3.29 = 731-0) MONO x10^3 (test code 0.25 10*3/uL 0.33-0.92 L = 742-7) EOS x10^3 (test code = <0.03 0.03-0.39 L 711-2) BASO x10^3 (test code <0.03 0.01-0.07 = 704-7) Lab Interpretation Abnormal (test code = 42807-8) [facility] CenterCLOSTRIDIUM DIFFICILE [id number] 07:37:08 Test Item Value Reference Range Interpretation Comments Clostridioides (Clostridium) Positive Negative A difficile (test code = 52840-9) Lab Interpretation (test code = Abnormal 01995-2) [facility] CenterXR CHEST 1 [id number] 02:33:53No active pulmonary disease. RL: 5611 END OF REPORT Ordering Physician: JORDAN WILL Clinical Indication: short of breath Additional Clinical Information: Technical Quality: Good Comparison: None Technique: Portable chest obtained at 2130 hours Findings: There is shallow inspiration. No infiltrate or effusion. Theheart size is normal. [facility] Results Inft User - 03/08/2021 9:34 PM CDT Ordering Physician: JORDAN WILLClinical Indication: short of breath Additional Clinical Information:Technical Quality: GoodComparison: NoneTechnique: Portable chest obtained at 2130 hoursFindings: There is shallow inspiration. No infiltrate or effusion. Theheart size is normal.IMPRESSIONNo active pulmonary disease.RL: 5611END OF REPORT [facility] CenterD-[id number] 02:08:51 Test Item Value Reference Interpretation Comments Range D-DIMER (test code = See_Comment H [Autom ated 8196836693) message] The system which generated this result [...] diagnosis. Lab Interpretation Abnormal (test code = 99085-6) [facility]URINALYSIS2021-05-21 19:36:24 Test Item Value Reference Range Interpretation Comments APPEARANCE (test code = Clear Clear 1098949097) COLOR (test code = Yellow Yellow 9215202614) PH (test code = 4.8-8.0 3537398181) SP GRAVITY (test code = 1.003-1.030 6426066699) GLU U QUAL (test code = Normal Normal 6817327582) BLOOD (test code = Negative Negative 3607528913) KETONES (test code = 5 mg/dL Negative A 8329299333) PROTEIN (test code = Negative Negative 2887-8) UROBILIN (test code = Normal Normal 4308504290) BILIRUBIN (test code = Negative Negative 7313912342) NITRITE (test code = Negative Negative 6121312075) LEUK NATHAN (test code = Negative Negative 0218417315) RBC/HPF (test code = <1 See_Comment [Autom ated message] 8038866442) The system [employer] generated this result transmitted ref erence range: 0 - 3 HP F. The reference range was not used to int erpret this result as normal/abnormal . WBC/HPF (test code = <1 See_Comment [Autom ated message] 1814294179) The system [employer] generated this result transmitted ref erence range: 0 - 5 HP F. The reference range was not used to int erpret this result as normal/abnormal . BACTERIA (test code = Negative Negative 4898643966) Lab Interpretation (test Abnormal code = 51719-0) [facility] CenterCOVID-[facility] (ID NOW RAPID TESTING)2021-03-08 19:25:38 Test Item Value Reference Range Interpretation Comments SARS-CoV-2 Rapid ID NOW Not Detected Not Detected (test code = 68671-2) CARL (test code = CARL) ID NOW COVID-19 Assay is an isothermal nucleic acid amplification test intended for the qualitative detection of nucleic acid from SARS-CoV-2 viral RNA in nasopharyngeal (SEO STRATEGIST) specimens. It is used under Emergency Use [...] indicated. Lab Interpretation Normal (test code = 70883-5) [facility] [id number] 18:26:20 Test Item Value Reference Range Interpretation Comments FREE T4 (test code = See_Comment H [Autom ated message] 4622157819) The system [employer] generated this result transmitted ref erence range: 0.78 - 2 .20 ng/dL:. The ref erence range was not u sed to interpret this result as normal/abnor mal. Lab Interpretation (test Abnormal code = 77645-0) [facility] CenterCT ABDOMEN PELVIS W [id number] 18:17:23 1. ?No acute intra-abdominal abnormality. 2. ?Colonic diverticulosis. 3. Unchanged pancreatic cystic lesions which may represent IPMN or othercystic pancreatic tumor/lesions. If prior evaluation was not performed,recommend follow-up with MRI pancreas. Preliminary Report Dictated by Resident: Mark perdomo I, Skylar ?MD Du., have reviewed this study and agree with theabove report.EXAM: CT ABDOMEN PELVIS W CONTRAST HISTORY: 85 years-old Female: Diverticulitis, complication suspected. SOB,abdominal pain, anuria, fatigue and black stool yesterday" TECHNIQUE: Contiguous axial imaging from the level of the lung basesthrough the proximal thighs was performed following the uncomplicatedadministration of intravenous contrast. Coronal and sagittalreconstructions were obtained. COMPARISON: CT abdomen pelvis dated 02/21/2021 FINDINGS: LOWER THORAX: The lung bases are clear. A 2.6 cm thin-walled pulmonary cystis seen in the left lower lobe. Please refer to the same day CT angiogramof the chest for detailed intrathoracic findings. LIVER: The liver is normal in size and contour. No focal hepatic lesion isseen. GALLBLADDER AND BILIARY TREE: The gallbladder appears unremarkable. Noradiopaque gallstonesare seen. No intra or extrahepatic biliary ductaldilation is visualized. SPLEEN: The spleen appears unremarkable. PANCREAS: Multiple hypodense cystic structures in the pancreas are againnoted including2.3 x 1.6 cm in pancreatic body and septated cyst versusclustered cysts measuring 1.8 x 2.7 cm in uncinate process. Diffuse fattyatrophy is noted. ADRENAL GLANDS: No adrenal masses are seen. KIDNEYS: A1.0 cm low attenuating cystic structure the right superior poleis unchanged and likely represents a simple cyst. Smaller subcentimeterstructures in the bilateral kidneys likely represent the same. Nohydronephrosis, stones, or solid masses are visualized. PELVIS/BLADDER: [...] seen at L2-L3 andL5-S1. Diffuse osteopenia is seen. [facility], [facility]iant Results Inft User - 03/08/2021 1:18 PM CDT EXAM: CT ABDOMEN PELVIS W CONTRASTHISTORY: 85 years-old Female: Diverticulitis, complication suspected. SOB,abdominal pain, anuria, fatigue and black stool yesterday"TECHNIQUE: Contiguous axial imaging from the level of the lung basesthrough the proximal thighs was performed followingthe uncomplicatedadministration of intravenous contrast. Coronal and sagittalreconstructions were obtained. COMPARISON: CT abdomen pelvis dated 02/21/2021FINDINGS:LOWER THORAX: The lung bases are clear. A 2.6 cm thin-walled pulmonary cystis seen in the left lower lobe. Please refer to the same day CT angiogramof the chest for detailed intrathoracic findings.LIVER: The liver is normal in size and contour. No focal hepatic lesion isseen.GALLBLADDER AND BILIARY TREE: The gallbladder appears unremarkable.Noradiopaque gallstones are seen. No intra or extrahepatic biliary ductaldilation is visualized. SPLEEN: The spleen appears unremarkable.PANCREAS: Multiple hypodense cystic structures in the pancreas are againnoted including 2.3 x 1.6 cm in pancreatic body and septated cyst versusclustered cysts measuring 1.8 x 2.7 cm in uncinate process. Diffuse fattyatrophy is noted.ADRENAL GLANDS: No adrenal masses are seen. KIDNEYS: [...] tracksalong the paracolic gutter and is unremarkable (4:57).Scattereddiverticuli are seen throughout the sigmoid. A small [...] represent IPMN or othercystic pancreatic tumor/lesions. If p rior evaluation was not performed,recommend follow-up with MRI pancreas.Preliminary Report Dictated by Resident: Mark Shi, Skylar Sandy MD., have reviewed this study and agree with theabove report. [facility]CT CHEST P[facility]MONARY [id number] 18:05:18 No pulmonary emboli. Colonic diverticulosis and [...] PARENCHYMA/PLEURA: The ?pulmonary parenchyma is normal. No focal opacities. A thin linearatelectasis is noted in left lower lobe (6:100) A thin wall 2.9 cm this isnoted in the posterior basal segment of the left lower lobe. o suspicious nodules. No pleural effusion. No pneumothorax. LYMPH NODES: No thoracic adenopathy. MEDIASTINUM/ LOWER NECK: ?No mediastinal mass isseen.. No actionablethyroid nodule is present. CARDIOVASCULAR: The [...] right scapulasuggestive of benign lesion, likely bone island. [facility], [facility]iant Results Inft User - 03/08/2021 1:06 PM CDTFormattingof this note might be different from the original.CT SCAN OF THE CHEST WITH CONTRAST 03/08/2021 12:13PMTECHNIQUE: Multidetector helical CT scan of the chest [...] pulmonary emboli.Colonic diverticulosis and a small hiatal hernia.[facility] THYROID STIMULATING [id number] 17:33:13 Test Item Value Reference Range Interpretation Comments TSH (test code = See_Comment [Automated message] 7980730786) The system [employer] generated this result transmitted ref erence range: 0.45 - 4 .70 mIU/L. The refe rence range was not u sed to interpret this result as normal/abnor mal. Lab Interpretation (test Normal code = 81482-4) [facility] CenterTROPONIN [id number] 17:14:54 Test Item Value Reference Range Interpretation Comments TROPONIN I (test <0.012 See_Comment [Automated code = 2529286478) message] The system which generated this result transmitted reference range : <=0.034 ng/mL. The reference range was not used to interpr et this result as normal/abnormal . ACRL (test code = Equal or Less than [...] ? Lab Interpretation Normal (test code = 21544-0) [facility]N-TERMINAL [id number] 17:11:55 Test Item Value Reference Range Interpretation Comments NT-proBNP (test code 861 pg/mL See_Comment H [Autom ated = 7631946777) message] The system which generated this result transmitted reference range : <=450. The reference range was not used to interpret this result as normal/abnormal . CARL (test code = CARL) Biotin has been reported to cause a negative bias, interpret results relative to patient's use of biotin. Lab Interpretation Abnormal (test code = 63547-4) [facility]. METABOLIC PANEL (71473)2021-03-08 17:02:50 Test Item Value Reference Range Interpretation Comments NA (test code = 136 mmol/L 135-145 8024932883) K (test code = 3.2 mmol/L 3.5-5.0 L 2170864246) CL (test code = 102 mmol/L 98-108 5461197161) CO2 TOTAL (test code = 24 mmol/L 23-31 6779676680) AGAP (test code = 2-16 8058437283) BUN (test code = 18 mg/dL 7-23 1287643890) GLUCOSE (test code = 80 mg/dL 70-110 9086410421) CREATININE (test code = 1.12 mg/dL 0.50-1.04 H 8905583998) TOTAL BILI (test code = 0.6 mg/dL 0.1-1.1 5731185751) CALCIUM (test code = 8.9 mg/dL 8.6-10.6 7113261003) T PROTEIN (test code = 5.8 g/dL 6.3-8.2 L 0236549853) ALBUMIN (test code = 3.3 g/dL 3.5-5.0 L 6474455809) ALK PHOS (test code = 83 U/L 34-122 0694479364) ALTv (test code = 14 U/L 5-35 1742-6) AST(SGOT) (test code = 27 U/L 13-40 4881986961) eGFR (test code = mL/min/1.73m2 0273620977) CRAL (test code = CARL) Association of [...] tests). Lab Interpretation Abnormal (test code = 29716-1) [facility] CenterLIPASE, [id number] 17:02:29 Test Item Value Reference Range Interpretation Comments LIPASE (test code = 9402600867) 189 U/L 0-220 Lab Interpretation (test code = Normal 28005-2) [facility] CenterCB WITH [id number] 17:00:16 Test Item Value Reference Range Interpretation Comments WBC (test code = See_Comment [Automated 7990-2) message] The sy stem which generated this result transmitted reference range : 4.30 - 11.10 10*3/?L. The reference range was not used to interpret this result as normal/abnormal . RBC (test code = See_Comment L [Automated 149-8) message] The sy stem which generated this [...] (test code = 50.5 fL 39.0-49.9 H 64957-5) RDW-CV (test code = 15.0 % 12.0-15.5 788-0) PLT (test code = See_Comment H [Automated 777-3) message] The sy stem which generated this result transmitted reference range : 166 - 358 10*3/ ?L. The reference r cheyanne was not used to interpret this result as normal/abnormal . MPV (test code = 9.7 fL 9.5-12.9 86070-2) NRBC/100 WBC (test See_Comment [Automat ed code = 2300080578) message] The system which generated this result transmitted reference range : 0.0 - 10.0 /100 WBCs. The refer ence range was not u sed to interpret th is result as normal/abnormal . NRBC x10^3 (test code <0.01 See_Comment [Auto mated = 5398002925) message] The s ystem which generated this result transmitted reference range : 10*3/?L. The reference range was not used to interpret this result as normal/abnormal . GRAN MAT (NEUT) % 24.4 % (test code = 770-8) IMM GRAN % (test code 0.30 % = 4673835228) LYMPH % (test code = 57.6 % 736-9) MONO % (test code = 14.8 % 5905-5) EOS % (test code = 2.0 % 713-8) BASO % (test code = 0.9 % 706-2) GRAN MAT x10^3(ANC) 2.31 10*3/uL 1.88-7.09 (test code = 8742797734) IMM GRAN x10^3 (test 0.03 10*3/uL 0.00-0.06 code = 1341939652) LYMPH x10^3 (test code 5.46 10*3/uL 1.32-3.29 H = 731-0) MONO x10^3 (test code 1.40 10*3/uL 0.33-0.92 H = 742-7) EOS x10^3 (test code = 0.19 10*3/uL 0.03-0.39 711-2) BASO x10^3 (test code 0.09 10*3/uL 0.01-0.07 H = 704-7) Lab Interpretation Abnormal (test code = 21237-0) [facility] CenteraPTT2021-05-21 17:00:11 Test Item Value Reference Range Interpretation Comments APTT Patient (test See_Comment [Automat ed code = 3173-2) message] The system which generated this result transmitted reference range : 23 - 38 Seconds . The reference range was not used to interpr et this result as normal/abnormal . CARL (test code = CARL) The [facility] patient population mean normal value for aPTT is 30 seconds. Lab Interpretation Normal (test code = 38123-2) [facility] CenterPROTHROMBIN TIME / [id number] 16:58:08 Test Item Value Reference Range Interpretation [...] tions. Lab Interpretation (test Normal code = 67778-9) [facility] CenterPO[facility]SE (AUT[facility]ATED)2021-02-22 17:14:54 Test Item Value Reference Range Interpretation Comments POCT GLU (test code = 1175663603) 228 mg/dL 70-110 H Lab Interpretation (test code = Abnormal 37843-7) [facility] CenterLAB ONLY COVID [id number] 15:07:04COVID DMT InterpretationInterpretation/Recommendations: Molecular NAAT Tests for [...] week of symptoms). Tests for IgM and/or IgG Antibodies to the SARS-CoV-2 Virus: If the patient develops COVID-19 illness in the future, testing for IgM and IgG antibodies approximately 3 weeks [...] ? Interpretation Result Comments:These interpretation comments are based upon all COVID-19 testing the patient has had at [facility], including molecular NAAT testing (more commonly knownas PCR testing and Rapid ID Now testing) and antibody testing. It does not take into account any testing that a patient has had outside of the [facility] medical record. [facility] LABORATORY SERVICESCOVID ResultsS ARS-CoV-2 Rapid ID NOW (no units) ? ? Date ? Value ? 02/20/2021 ? Not Detected ? [facility] LABORATORY SERVICES [facility] CenterPO[facility]SE [facility]AUT[facility]ATED)2021-02-22 13:41:36 Test Item Value Reference Range Interpretation Comments POCT GLU (test code = 1947981644) 242 mg/dL 70-110 H Lab Interpretation (test code = Abnormal 17365-7) [facility] CenterURINE [id number] 12:26:08 Test Item Value Reference Range Interpretation Comments URINE CULTURE (test No aerobic growth (< code = 630-4) 1000 CFU/mL) [facility] CenterN-TERMINAL [id number] 10:40:25 Test Item Value Reference Range Interpretation Comments NT-proBNP (test code 1440 pg/mL See_Comment H [Autom ated = 8581951621) message] The system which generated this result transmitted reference range : <=450. The reference range was not used to interpret this result as normal/abnormal . CARL (test code = CARL) Biotin has been reported to cause a negative bias, interpret results relative to patient's use of biotin. Lab Interpretation Abnormal (test code = 22838-9) [facility] CenterCOMP. METABOLIC PANEL (64256)2021-02-22 10:34:04 Test Item Value Reference Range Interpretation Comments NA (test code = 132 mmol/L 135-145 L 7101462997) K (test code = 4.7 mmol/L 3.5-5.0 0805461564) CL (test code = 105 mmol/L 98-108 8057971628) CO2 TOTAL (test code = 20 mmol/L 23-31 L 6085426522) AGAP (test code = 2-16 8205774044) BUN (test code = 22 mg/dL 7-23 7367430328) GLUCOSE (test code = 212 mg/dL 70-110 H 5257833728) CREATININE (test code = 1.13 mg/dL 0.50-1.04 H 8483390594) TOTAL BILI (test code = 0.2 mg/dL 0.1-1.7 3762332283) CALCIUM (test code = 7.8 mg/dL 8.6-10.6 L 7092086711) T PROTEIN (test code = 5.1 g/dL 6.3-8.2 L 9164794164) ALBUMIN (test code = 2.8 g/dL 3.5-5.0 L 8982034561) ALK PHOS (test code = 38 U/L 34-122 9259642024) ALTv (test code = 13 U/L 5-35 1742-6) AST(SGOT) (test code = 21 U/L 13-40 8238344413) eGFR (test code = mL/min/1.73m2 8301591388) CARL (test code = CARL) Association of [...] tests). Lab Interpretation Abnormal (test code = 64614-8) [facility] CenterMAGNESIUM2021-05-07 10:34:04 Test Item Value Reference Range Interpretation Comments MAGNESIUM (test code = 3164202867) 1.9 mg/dL 1.7-2.4 Lab Interpretation (test code = Normal 48658-1) [facility] CenterURIC [id number] 10:33:44 Test Item Value Reference Range Interpretation Comments URIC ACID (test code = 8076653432) 3.6 mg/dL 2.9-6.0 Lab Interpretation (test code = Normal 07006-6) [facility] [id number] 10:04:39 Test Item Value Reference Range Interpretation [...] RDW-SD (test code = 49.0 fL 39.0-49.9 24370-0) RDW-CV (test code = 14.8 % 12.0-15.5 788-0) PLT (test code = See_Comment [Automated 777-3) message] The sy stem which generated this result transmitted reference range : 166 - 358 10*3/ ?L. The reference r cheyanne was not used to interpret this result as normal/abnormal . MPV (test code = 9.8 fL 9.5-12.9 54969-4) NRBC/100 WBC (test See_Comment [Automat ed code = 9451678476) message] The system which generated this result transmitted reference range : 0.0 - 10.0 /100 WBCs. The refer ence range was not u sed to interpret th is result as normal/abnormal . NRBC x10^3 (test code <0.01 See_Comment [Auto mated = 0457724269) message] The s ystem which generated this result transmitted reference range : 10*3/?L. The reference range was not used to interpret this result as normal/abnormal . GRAN MAT (NEUT) % 82.0 % (test code = 770-8) IMM GRAN % (test code 0.80 % = 5484000455) LYMPH % (test code = 10.2 % 736-9) MONO % (test code = 6.8 % 5905-5) EOS % (test code = 0.0 % 713-8) BASO % (test code = 0.2 % 706-2) GRAN MAT x10^3(ANC) 8.25 10*3/uL 1.88-7.09 H (test code = 9625244768) IMM GRAN x10^3 (test 0.08 10*3/uL 0.00-0.06 H code = 7410495974) LYMPH x10^3 (test code 1.03 10*3/uL 1.32-3.29 L = 731-0) MONO x10^3 (test code 0.68 10*3/uL 0.33-0.92 = 742-7) EOS x10^3 (test code = <0.03 0.03-0.39 L 711-2) BASO x10^3 (test code <0.03 0.01-0.07 = 704-7) Lab Interpretation Abnormal (test code = 19942-3) [facility] GLUCOSE (AUTOMATED)2021-02-22 02:20:17 Test Item Value Reference Range Interpretation Comments POCT GLU (test code = 1881873301) 318 mg/dL 70-110 H Lab Interpretation (test code = Abnormal 59768-0) [facility]IT[facility]IN B12, [id number] 21:50:20 Test Item Value Reference Range Interpretation Comments VIT B12 (test code = 434 pg/mL 240-930 4623066861) CARL (test code = CARL) Biotin has been reported to cause a positive bias, interpret results relative to patient's use of biotin. Lab Interpretation (test Normal code = 85926-7) [facility] GLUCOSE (AUTOMATED)2021-02-21 21:19:53 Test Item Value Reference Range Interpretation Comments POCT GLU (test code = 2614857139) 335 mg/dL 70-110 H Lab Interpretation (test code = Abnormal 90690-0) [facility] CenterLEGIONELLA URINARY ANTIGEN [id number] 19:47:22 Test Item Value Reference Range Interpretation Comments Legionella Urinary Negative Negative Antigen (test code = 4510390362) CARL (test code = CARL) Negative for [...] test. Lab Interpretation (test Normal code = 03266-5) [facility] CenterPROCALCITONIN2021-05-06 16:59:40 Test Item Value Reference Range Interpretation Comments Procalcitonin (test 0.08 ng/mL <0.07 H code = 1119742286) CARL (test code = CARL) INTERPRETATION OF [...] lung abscess/empyema. For further information please refer to:[email or web address] Lab Interpretation Abnormal (test code = 76471-7) [facility]2021-02-21 16:58:53 Test Item Value Reference Range Interpretation Comments POCT GLU (test code = 0039555779) 353 mg/dL 70-110 H Lab Interpretation (test code = Abnormal 88806-4) [facility] CenterVIT[facility]IN D, [id number] 16:35:33 Test Item Value Reference Range Interpretation Comments VIT D 25OH (test code = 27 ng/mL 25-80 16191-3) CARL (test code = CARL) Deficiency: <20 ng/mLInsufficiency : 20-24 ng/mLOptimal: 25-80 ng/mL Lab Interpretation (test Normal code = 62695-5) [facility] CenterOSMOLALITY [id number] 16:00:43 Test Item Value Reference Range Interpretation Comments OSMO U (test code = See_Comment [Automa roxanna message] 0632000614) The system [employer] generated this result transmitted ref erence range: 50-1,100 mOsm/kg. The re ference range was not u sed to interpret this result as normal/abnor mal. Lab Interpretation (test Normal code = 63798-5) [facility] CenterOSMOLALITY, SERUM OR [id number] 15:57:18 Test Item Value Reference Range Interpretation Comments OSMOLALITY (test code = See_Comment [Au tomated message] 8259749925) The system [employer] generated this result transmitted ref erence range: 278 - 30 5 mOsm/kg. The re ference range was not u sed to interpret this result as normal/abnor mal. Lab Interpretation (test Normal code = 91941-6) [facility] CenterSEDIMENTATION [id number] 14:17:02 Test Item Value Reference Range Interpretation Comments ESR (test code = See_Comment H [Automated message] 0634371928) The system [employer] generated this result transmitted ref erence range: 0 - 20 m m/HR. The reference r cheyanne was not used to interpret this result as normal/abnor mal. Lab Interpretation (test Abnormal code = 97205-7) [facility] CenterXR SH[facility] 2+ VW [id number] 13:53:22 Anterior dislocation of the right shoulder. RL: 5611 END OF REPORT Ordering Physician: TYRON RYEES Clinical Indication: glenohumeral dislocation Additional Clinical Information: Technical Quality: Good Comparison: None Technique: 2 views of the right shoulder Findings: There is an anterior glenohumeral dislocation. There isosteopenia. There are calcified phlebolith overlying the axilla. There isno fracture fragment. [facility], Radiant Results Inft User - 02/21/2021 8:54 AM CDTOrdering Physician: TYRON Mendozainical Indication: glenohumeral disloca tion Additional Clinical Information:Technical Quality: GoodComparison: NoneTechnique: 2 views of the right shoulderFindings: There is an anterior glenohumeral dislocation. There isosteopenia. There are calcified phlebolith overlying the axilla. There isno fracture fragment.IMPRESSIONAnterior dislocati on of the right shoulder.RL: 5611END OF REPORT [facility] 2021-02-21 13:09:09 Test Item Value Reference Range Interpretation Comments POCT GLU (test code = 0426436963) 209 mg/dL 70-110 H Lab Interpretation (test code = Abnormal 49587-2) [facility] CenterTROPONIN [id number] 12:13:42 Test Item Value Reference Range Interpretation Comments TROPONIN I (test 0.025 ng/mL See_Comment [Automated code = 2011963408) message] The system which generated this result [...] ? Lab Interpretation Normal (test code = 11897-0) [facility] CenterN-TERMINAL [id number] 12:10:24 Test Item Value Reference Range Interpretation Comments NT-proBNP (test code 1490 pg/mL See_Comment H [Autom ated = 8517677460) message] The system which generated this result transmitted reference range : <=450. The reference range was not used to interpret this result as normal/abnormal . CARL (test code = CARL) Biotin has been reported to cause a negative bias, interpret results relative to patient's use of biotin. Lab Interpretation Abnormal (test code = 03526-8) [facility]. METABOLIC PANEL (05125)2021-02-21 12:09:43 Test Item Value Reference Range Interpretation Comments NA (test code = 131 mmol/L 135-145 L 7100350008) K (test code = 4.1 mmol/L 3.5-5.0 2992041643) CL (test code = 96 mmol/L 98-108 L 5389745806) CO2 TOTAL (test code = 26 mmol/L 23-31 7812416828) AGAP (test code = 2-16 1022495247) BUN (test code = 19 mg/dL 7-23 3240510361) GLUCOSE (test code = 90 mg/dL 70-110 0314768849) CREATININE (test code = 0.98 mg/dL 0.50-1.04 9333559181) TOTAL BILI (test code = 0.7 mg/dL 0.1-1.5 7175473624) CALCIUM (test code = 7.9 mg/dL 8.6-10.6 L 4286286311) T PROTEIN (test code = 5.4 g/dL 6.3-8.2 L 6911430169) ALBUMIN (test code = 3.0 g/dL 3.5-5.0 L 5995485724) ALK PHOS (test code = 37 U/L 34-122 4296820628) ALTv (test code = 13 U/L 5-35 1742-6) AST(SGOT) (test code = 35 U/L 13-40 3295516383) eGFR (test code = mL/min/1.73m2 0313548197) CARL (test code = CARL) Association of [...] tests). Lab Interpretation Abnormal (test code = 50781-5) [facility] CenterMAGNESIUM2021-05-06 12:05:19 Test Item Value Reference Range Interpretation Comments MAGNESIUM (test code = 8941705503) 1.7 mg/dL 1.7-2.4 Lab Interpretation (test code = Normal 66518-5) [facility] CenterURIC [id number] 12:04:59 Test Item Value Reference Range Interpretation Comments URIC ACID (test code = 8080802292) 4.0 mg/dL 2.9-6.0 Lab Interpretation (test code = Normal 17959-6) [facility] WITH [id number] 11:43:56 Test Item Value Reference Range Interpretation Comments WBC (test code = See_Comment [Automated 1091-2) message] The sy stem which generated this [...] RDW-SD (test code = 47.8 fL 39.0-49.9 91519-7) RDW-CV (test code = 14.8 % 12.0-15.5 788-0) PLT (test code = See_Comment [Automated 777-3) message] The sy stem which generated this result transmitted reference range : 166 - 358 10*3/ ?L. The reference r cheyanne was not used to interpret this result as normal/abnormal . MPV (test code = 10.2 fL 9.5-12.9 69932-8) NRBC/100 WBC (test See_Comment [Automat ed code = 5268302852) message] The system which generated this result transmitted reference range : 0.0 - 10.0 /100 WBCs. The refer ence range was not u sed to interpret th is result as normal/abnormal . NRBC x10^3 (test code <0.01 See_Comment [Auto mated = 0455828677) message] The s ystem which generated this result transmitted reference range : 10*3/?L. The reference range was not used to interpret this result as normal/abnormal . GRAN MAT (NEUT) % 81.3 % (test code = 770-8) IMM GRAN % (test code 0.70 % = 0378498012) LYMPH % (test code = 13.7 % 736-9) MONO % (test code = 3.0 % 5905-5) EOS % (test code = 0.6 % 713-8) BASO % (test code = 0.7 % 706-2) GRAN MAT x10^3(ANC) 4.41 10*3/uL 1.88-7.09 (test code = 2106723121) IMM GRAN x10^3 (test 0.04 10*3/uL 0.00-0.06 code = 0580498510) LYMPH x10^3 (test code 0.74 10*3/uL 1.32-3.29 L = 731-0) MONO x10^3 (test code 0.16 10*3/uL 0.33-0.92 L = 742-7) EOS x10^3 (test code = 0.03 10*3/uL 0.03-0.39 711-2) BASO x10^3 (test code 0.04 10*3/uL 0.01-0.07 = 704-7) Lab Interpretation Abnormal (test code = 85881-2) [facility] CenterCT ABDOMEN PELVIS W [id number] 09:25:19 No defined focal acute inflammatory process. [...] Degenerative changes in the lumbarspine RL: 109AF: 71003 End of report Examination: Computed tomography of [...] No perinephric fluid collection. Portal and splenic veinsare patent. No enlarged adenopathy. Bladder grossly unremarkable. Uterus is absent. No adnexal mass noted. Ovaries are seen and are atrophic. Bone windows show no suspicious lytic or blastic bony lesion. Bones aredemineralized. Prominent degenerative changes in the lower and mid lumbarspine. Stress shielding in the femoral head and neck regions. Moderate fat-containing umbilical hernia. [facility], RadiantResults Inft User - 02/21/2021 4:26 AM CDTExamination: Computed tomography of the abdomen and pelviswith contrastOrdering Physician: TYRON FUIDate: 02/21/2021 1:30 AMHistory: Flank pain, kidney stone suspected Nausea/vomiting Abdominal pain, acute,nonlocalized recurrent UTI Comparison: None availableTechnique: Computed tomography of the abdomen and pelvis was performedafter the administration of nonionic intravenous contrast. Exams wereperformed using dose reduction techniques according to ALARA (as low asreasonably achievable) principles.Findings:Images of the lung bases show mild patchy atelectasis and/or scarring.Liver, gallbladder, spleen, adrenal glands and kidneys demonstrate no acutefinding. Small cyst in the upper pole of the right kidney. Multiple cystsin the incus, largest is in the head measuring up to 17 mm. Noperipancreatic inflammatory stranding or fluid.There is diverticulosis of the colon without imaging [...] in the femoral head and neck regions.Moderate fat- containing umbilicalhernia.IMPRESSIONNo defined focal acute inflammatory process. No hydronephrosis orperinephric fluid.Right renal cystsMultiple pancreatic cysts, outpatient MRI with MRCP recommended for moredefinitive as sessment.Small sliding hiatal herniaBasilar atelectasisDiverticulosis of the colon without imaging evidence of acutediverticulitisModerate fat-containing umbilical herniaBony demineralization, considercorrelation with outpatient bone mineraldensity exam as clinically appropriate. Degenerative changesin the lumbarspineRL: 109AFC: 33557Kyd of report [facility]CT [facility] WO [id number] 09:17:191. ?No acute intracranial abnormality. RL: 6200 AFC: 96525Llj of report. ORDERING PHYSICIAN: TYRON REYES CLINICAL [...] effacement. The bones, extracranial soft tissues and orbits are [...] clear.IMPRESSION1. No acute intracranial abnormality.RL: 6200 AFC: 83051Qga of report. [facility] ([facility]ATED)2021-02-21 07:45:22 Test Item Value Reference Range Interpretation Comments POCT GLU (test code = 8096062685) 138 mg/dL 70-110 H Lab Interpretation (test code = Abnormal 72671-0) [facility] CenterTROPONIN [id number] 07:16:11 Test Item Value Reference Range Interpretation Comments TROPONIN I (test 0.031 ng/mL See_Comment [Automated code = 6807954871) message] The system which generated this result [...] ? Lab Interpretation Normal (test code = 17183-3) [facility] CenterIRON [id number] 07:13:30 Test Item Value Reference Range Interpretation Comments IRON (test code = 2916976409) 27 ug/dL 50-160 L TIBC (test code = 5980746696) 224 ug/dL 250-410 L % FE SAT (test code = 4057721160) 12 % 20-50 L Lab Interpretation (test code = Abnormal 31508-1) [facility] CenterPROTHROMBIN TIME / [id number] 06:48:08 Test Item Value Reference Range Interpretation Comments PROTIME PATIENT (test See_Comment [Auto mated message] code = 5964-2) The system [employer] generated this result transmitted ref erence range: 12.0 - 1 4.7 Seconds. The re ference range was not u sed to interpret this result as normal/abnor mal. INR (test code = 6301-6) Nor mal INR <1.1; Warfarin Therap eutic range 2.0 to 3. 0 or 2.5 to 3.5, dep ending upon the indica tions. Lab Interpretation (test Normal code = 45713-4) [facility] CenterFERRITIN [id number] 06:23:04 Test Item Value Reference Range Interpretation Comments FERRITIN (test code = 112.0 ng/mL 11.0-264.0 5179418669) CARL (test code = CARL) Biotin has been reported to cause a negative bias, interpret results relative to patient's use of biotin. Lab Interpretation (test Normal code = 32540-0) [facility] CenterTHYROID STIMULATING [id number] 06:20:07 Test Item Value Reference Range Interpretation Comments TSH (test code = See_Comment [Automated message] 3943103295) The system [employer] generated this result transmitted ref erence range: 0.45 - 4 .70 mIU/L. The refe rence range was not u sed to interpret this result as normal/abnor mal. Lab Interpretation (test Normal code = 77436-8) [facility] CenterGLYCOSYLATED HEMOGLOBIN (A1C)2021-02-21 06:16:28 Test Item Value Reference Range Interpretation Comments HGB A1C (test code = 5.5 % 4.0-5.7 4548-4) CARL (test code = CARL) Reference RangesNormal: <5.7%Prediabetes: 5.7 - 6.4%Diabetes: > 6.5% Lab Interpretation (test Normal code = 78375-5) [facility] CenterPROTEIN CREAT RATIO URINE [id number] 05:59:37 Test Item Value Reference Range Interpretation Comments T. PROT U (test code = 2888-6) 17 mg/dL CREAT U (test code = 4252183882) 34.5 mg/dL Protein/Creatinine Ratio Urine 0.0-2.0 (test code = 3933052759) [facility] CenterPHOSPHORUS2021-05-06 05:59:02 Test Item Value Reference Range Interpretation Comments PHOSPHORUS (test code = 0004729451) 4.7 mg/dL 2.5-5.0 Lab Interpretation (test code = Normal 13171-0) [facility] CenterURIC [id number] 05:58:57 Test Item Value Reference Range Interpretation Comments URIC ACID (test code = 3722873632) 3.5 mg/dL 2.9-6.0 Lab Interpretation (test code = Normal 25417-8) [facility] CenterCREATINE [id number] 05:58:47 Test Item Value Reference Range Interpretation Comments CK (test code = 6242575993) 26 U/L 33-194 L Lab Interpretation (test code = Abnormal 01583-7) [facility] CenterMAGNESIUM2021-05-06 05:58:42 Test Item Value Reference Range Interpretation Comments MAGNESIUM (test code = 1535957585) 1.7 mg/dL 1.7-2.4 Lab Interpretation (test code = Normal 56582-8) [facility] CenterPO[facility]UCOSE (AUT[facility]ATED)2021-02-21 05:57:21 Test Item Value Reference Range Interpretation Comments POCT GLU (test code = 3869148299) 59 mg/dL 70-110 L Lab Interpretation (test code = Abnormal 55663-9) [facility] CenterSODIUM, URINE [id number] 05:55:36 Test Item Value Reference Range Interpretation Comments NA URINE (test code = 7017133802) 69 mmol/L [facility] CenterLIPID PANEL (06294)(TOTAL CHOLESTEROL, TRIGLYCERIDES, HDL)2021-02-21 05:48:17 Test Item Value Reference Range Interpretation Comments CHOL (test code = 136 mg/dL 120-200 5528671342) HDL (test code = 75 mg/dL >50 7297602465) HDLC RATIO (test code = See_Comment [Au tomated message] 9661042348) The system [employer] generated this result transmit roxanna reference range : <=4.5. The refe rence range was not u sed to interpret th is result as normal/abnormal . TRIG (test code = 158 mg/dL 30-170 0364778635) LDL CHOL (test code = 29 mg/dL See_Comment [Auto mated message] 42382-5) The system [employer] generated this result transmit rxoanna reference range : <=160. The refe rence range was not u sed to interpret th is result as normal/abnormal . VLDL (test code = 32 mg/dL 5-60 5717478798) Lab Interpretation (test Normal code = 53927-6) [facility] CenterXR HUMERUS 2 VW [id number] 00:20:13 1. ?No fracture. 2. Possible glenohumeral [...] an acutewrist injury dedicated wrist films recommended.RL: 1105 [facility] FOREARM 2 VW [id number] 00:20:13 1. ?No fracture. 2. Possible glenohumeral [...] an acutewrist injury dedicated wrist films recommended.RL: 1105 [facility] [id number] 22:41:33 Test Item Value Reference Range Interpretation Comments APPEARANCE (test code = Hazy Clear A 7090135783) COLOR (test code = Yellow Yellow 2354777278) PH (test code = 4.8-8.0 1578590587) SP GRAVITY (test code = 1.003-1.030 3025390120) GLU U QUAL (test code = Normal Normal 0004025201) BLOOD (test code = Negative Negative 1337254979) KETONES (test code = 20 mg/dL Negative A 4017897940) PROTEIN (test code = Negative Negative 2887-8) UROBILIN (test code = Normal Normal 4325439198) BILIRUBIN (test code = Negative Negative 1771380474) NITRITE (test code = Negative Negative 9297350337) LEUK NATHAN (test code = 250/uL Negative A 2012642359) RBC/HPF (test code = See_Comment [Autom ated message] 7494002689) The system [employer] generated this result transmitted ref erence range: 0 - 3 HP F. The reference range was not used to int erpret this result as normal/abnormal . WBC/HPF (test code = See_Comment H [Autom ated message] 6844751844) The system [employer] generated this result transmitted ref erence range: 0 - 5 HP F. The reference range was not used to int erpret this result as normal/abnormal . BACTERIA (test code = Many Negative A 6958725725) MUCOUS (test code = Moderate Negative LPF A 9776455975) Lab Interpretation (test Abnormal code = 04000-2) [facility] CenterCOVID-19 (ID NOW RAPID TESTING)2021-02-20 22:40:01 Test Item Value Reference Range Interpretation Comments SARS-CoV-2 Rapid ID NOW Not Detected Not Detected (test code = 52731-7) CRAL (test code = CARL) ID NOW COVID-19 Assay is an isothermal nucleic acid amplification test intended for the qualitative detection of nucleic acid from SARS-CoV-2 viral RNA in nasopharyngeal (SEO STRATEGIST) specimens. It is used under Emergency Use [...] indicated. Lab Interpretation Normal (test code = 50987-4) [facility] CenterTROPONIN [id number] 21:58:52 Test Item Value Reference Range Interpretation Comments TROPONIN I (test 0.019 ng/mL See_Comment [Automated code = 9927599681) message] The system which generated this result [...] ? Lab Interpretation Normal (test code = 30456-2) [facility] CenterN-TERMINAL [id number] 21:53:51 Test Item Value Reference Range Interpretation Comments NT-proBNP (test code 1840 pg/mL See_Comment H [Autom ated = 9415932035) message] The system which generated this result transmitted reference range : <=450. The reference range was not used to interpret this result as normal/abnormal . CARL (test code = CARL) Biotin has been reported to cause a negative bias, interpret results relative to patient's use of biotin. Lab Interpretation Abnormal (test code = 90809-3) [facility] CenterCOMP. METABOLIC PANEL (36265)2021-02-20 21:50:26 Test Item Value Reference Range Interpretation Comments NA (test code = 129 mmol/L 135-145 L 6509091577) K (test code = 3.4 mmol/L 3.5-5.0 L 4414246975) CL (test code = 94 mmol/L 98-108 L 1849329205) CO2 TOTAL (test code = 24 mmol/L 23-31 6519809216) AGAP (test code = 2-16 5272580483) BUN (test code = 18 mg/dL 7-23 9175572593) GLUCOSE (test code = 62 mg/dL 70-110 L 1986378412) CREATININE (test code = 1.00 mg/dL 0.50-1.04 5847428980) TOTAL BILI (test code = 0.9 mg/dL 0.1-1.8 9280216596) CALCIUM (test code = 8.5 mg/dL 8.6-10.6 L 4992187315) T PROTEIN (test code = 5.8 g/dL 6.3-8.2 L 1750834638) ALBUMIN (test code = 3.4 g/dL 3.5-5.0 L 4288299691) ALK PHOS (test code = 49 U/L 34-122 9340799965) ALTv (test code = 15 U/L 5-35 1742-6) AST(SGOT) (test code = 28 U/L 13-40 9246803033) eGFR (test code = mL/min/1.73m2 6221328172) CARL (test code = CARL) Association of [...] tests). Lab Interpretation Abnormal (test code = 83152-8) [facility] CenterLIPASE2021-05-05 21:50:26 Test Item Value Reference Range Interpretation Comments LIPASE (test code = 8243185257) 86 U/L 0-220 Lab Interpretation (test code = Normal 29864-2) [facility] CenterCB WITH [id number] 21:25:40 Test Item Value Reference Range Interpretation [...] RDW-SD (test code = 47.0 fL 39.0-49.9 21185-0) RDW-CV (test code = 14.6 % 12.0-15.5 788-0) PLT (test code = See_Comment [Automated 777-3) message] The sy stem which generated this result transmitted reference range : 166 - 358 10*3/ ?L. The reference r cheyanne was not used to interpret this result as normal/abnormal . MPV (test code = 10.1 fL 9.5-12.9 53698-6) NRBC/100 WBC (test See_Comment [Automat ed code = 9180284804) message] The system which generated this result transmitted reference range : 0.0 - 10.0 /100 WBCs. The refer ence range was not u sed to interpret th is result as normal/abnormal . NRBC x10^3 (test code <0.01 See_Comment [Auto mated = 2734940955) message] The s ystem which generated this result transmitted reference range : 10*3/?L. The reference range was not used to interpret this result as normal/abnormal . GRAN MAT (NEUT) % 52.9 % (test code = 770-8) IMM GRAN % (test code 0.60 % = 1117765006) LYMPH % (test code = 35.0 % 736-9) MONO % (test code = 8.3 % 5905-5) EOS % (test code = 2.6 % 713-8) BASO % (test code = 0.6 % 706-2) GRAN MAT x10^3(ANC) 4.32 10*3/uL 1.88-7.09 (test code = 3544434017) IMM GRAN x10^3 (test 0.05 10*3/uL 0.00-0.06 code = 5731472409) LYMPH x10^3 (test code 2.86 10*3/uL 1.32-3.29 = 731-0) MONO x10^3 (test code 0.68 10*3/uL 0.33-0.92 = 742-7) EOS x10^3 (test code = 0.21 10*3/uL 0.03-0.39 711-2) BASO x10^3 (test code 0.05 10*3/uL 0.01-0.07 = 704-7) Lab Interpretation Abnormal (test code = 76134-2) [facility] CenterLactic Acid Whole [id number] 21:20:26 Test Item Value Reference Range Interpretation Comments LACTIC ACID (test code = 2.06 mmol/L 0.50-2.20 9574515737) Lab Interpretation (test code = Normal 01112-0) [facility]XR CHEST 1 [id number] 21:07:40 No acute cardiopulmonary abnormality. Preliminary Report [...] tortuous. No acute osseous abnormality. [facility], Radiant Results Inft User - 02/20/2021 4:08 PM CDTEXAM: XR CHEST 1 VWCLINICAL INDICATION: tachycardia, weakness, dizziness COMPARISON: NoneFINDINGS:The lungs are well-expanded and clear without focal consolidation, pleuraleffusion, or pneumothorax. The cardiac silhouette is upper normal in size. The aorta is tortuous.Noacute osseous abnormality. IMPRESSIONNo acute cardiopulmonary abnormality.Preliminary Report Dictated by Resident: Julia Sánchez MD., have reviewed this study and agree with theabove report.[facility] 14:27:00 Test Item Value Reference Range Interpretation Comments Case Report (test code Medical Cytology = 104) Report Case: [id number] Authorizing Provider: Amor Muller MD Collected: 11/29/2020 02:08 PM Ordering Location: [facility] Endoscopy Received: 11/30/2020 02:52 PM Services Pathologist: Moises Aguilar MD Specimen: Pancreas, pancreas cyst DIAGNOSIS (test code = p8eupFKxGBKxp1azWOHpsD 3220) FuZzEwMzNcZnRuYmpcdWMx IHtccnRmMVxlcGljOTIwMF nfgkCsAXAxmUTiR1Odsmol NTtqMT3lLL0ugFradVTbtQ QyGWYsXlEph4gna322rHHm i2taBXNAogkigKp7bJlrN7 9cs9A1EuecH06ctUMwXDke bGFpblxmczIwIFBBTkNSRU VNYWGVX1SbAClYXZFwEVLL UQFrB8eYY4HQJS2KBIfbcQ RbCLFmDX5dPlluUUCIJ2JL DTTSRMFSDhZOSQdKV46HEf NZXHBhclxmMCAgICAtIFRo ZSBtdWNpbiBzdGFpbiBzaG 18uzY2DTGvFFGsZGSsq0Yb wRNus9IjcXf6mRB1TUMgca 29QCK6UuZyd3P9EKG5DLCm EZAdf4zbLSBvpUNdEpCpEt NcZnRuYmpcdWMxXGRlZmYw b0ury395oANvw8wtOMMjNr U5yWTyXLBicMKiW116WWGc YHdbg4gal9UgEASfnHGyb9 X9NOHCjiaalPp1iOsrI11v u0L9IdruT3jbADQeSDUiT4 YdVL2yTNBlTqs3KAJ0IML2 ZHSbGUSsM1RgVQ3bPUUdrI DjFCs9o5trxFkjEBIdXPY6 l6whHPctomUeBN6cxe6rxI r1i5cvzwSiNTIqVLYlkIDV GTQqV3XukWwcPc3uqNs3dQ nnQpfvLMJ3Ctc6GQ7arj22 nag7iAdrOMJichgbVfQ6UN hoMOVmptbrUWw7KZctFALm nKY4BDIgmINyX2ZuCTWeMZ 6rmwu0HON6VZbmJXKvPtM4 NDBcaGVhZGVyeTcyMFxmb2 31CGJ8MrGvEP0bP2Dml0O2 dJ3lnZWiYVQyeVVoBeRdBV Wjtl9ulGVyYYmou8BkADN7 cbM8oKIyvJTeYUVgAzT0IM rtVR7dxx92HCStCSA6td5y bGNccGdicmRyaGVhZFxwZ2 PlBFYwp140BYYeW3TwEKCj n9X2dyFmFsIvZIMojHC3bj C9GHEaBJ4kryulx7nlJVjf OOlqXRVwwrH7nzU0HPBtcI BrZ4KjqL5oWRDnSM3cyclv v2ppTMT1ITzpUEIuKSS9As VeLASpg5Xshro9JbXat2Et rPRiADpaG19al598FUGccz AuL4tnlHLwuyrliGOgwuks YNpsekM1ZBQqJAvghsokBH DbOTpuP8uxXoXnDOJdkPou XNuie8RnISWjOWVcJbDhlA RiAJLrUxq2YNKmlBOgQDLc MbCkV7xyysdhQkSDALIjw3 utG2uyzCIWpVOsY8TaHKoc usIcKDjmYGslRMRbLCP0MQ 5pERXvPHWwzu54 COMMENT (test code = l6rkxYQwNNNghGQ1EjMwLX 8020) Upn6ulr3HzmTRynIIuRMtx xCJgcrOauk13xQO5yO36TU 7kBMOzAzB5KTLyyaV0Xdl4 SCGyOUTiuQBsR629c4qzb8 iahhQptWZ3oOyfRZIbXYXt YWluXGZzMjAgQSBmZXcgcm VzT7JrsjFmJXKrnEDxFCHd tRMyHKvySByuM4BbcDDnFN VfKK4sbJIoECcisFesboUc XCfgbbbsmhIhd2O6jZZ1tI 1bOZ4nDRTmjOMkDOTqgMsx zr3neGFlZPTxpaVqra4iSL AnPGD3iRZtSIF7W8UevJYr uIz8jPYzcIMfYTUilHjdYr BccGFyfQ== CPT Code(s) (test code u4kqfDZyWANbgYJ4BcLnIT = 2613) Plp0evg7MibQYecGUkQDaw kBVtgfHbnd55dDV4xA93YE 4nCVXsHxO1WJXozbD8Ixy0 FJQnCAFwcKWuZ018k4tak3 qzgrJpcNC0aVhiSQIaOPEz YWluXGZzMjAgODgxMDgsID f7YvUcHNRkbj1= CLINICAL DATA (test t2jmtRFhHKFruAS6PqCaUA code = 3355) Lvl7xao4CdjUPqgCNhCLxk oEOkfpYlga33yYV4tC38LN 0aVGHaSuR7VCIwzsH0Bux3 RXYxEJGzpEEbQ996s1zrn9 igwyUcsWZ5kDmyNTRtVFKj GFmjUNTqVjUmWj00THTdXL jqEN72ONMlFNMhWBKir7kn WRiwz5loyuPtcRuyVPE0pR OpLS7iXTZ3z5GguAIkseUe DfnmOMKbvwQ3tNOxlYRnP2 JlYXRpYyBoZWFkXHBhcn0= SPECIMEN SOURCE (test n1ehbVFePOCouJK9DyEuSQ code = 3377) Pjx3hwk4LjkVHamKFyACvr pVFmzbWuzu46oTH9zI58XS 4qWBFiZkI4RYHrgxE1Gbd8 KGWkRVNxvLQzN532m7agy4 pwscNyjZR7oOnvEEQqKGRp QHeyKSXaIiJqUCGMD2XGAT OwA6xCVYwrCRBJIMmtVc9U XHBhcn0= GROSS DESCRIPTION (test n4fnxJYsGUMdlQR3XgXeQZ code = 3366) Gto5xvy9DkzOQcvQPcZXsm qKNuupYyjp35pNR4fM35KU 5jDILmZrF2GKGujpJ7Nyb7 WKZdRXOjpAXeQ024t1qkj4 zcchUoiMT0zEilBPXsUTPb YUsrYTQgWtZgYvBmVSb5SV MoNBaphDjtI3e8v4OnH9hc qiBmWQHkoZS7bLUfYXOwlQ BsZTsgcHJlcGFyZWQgNCBj tKTkp0TuutDoHE6zDGMvzL BwhD7tY8w9f4QenY4kbVHe fQ== MICROSCOPIC DESCRIPTION j7kswLGyADDkwZB0YiGcEM (test code = 3371) Uxj1kcw2XcyFKovJOmHXih aGJwlaRryw60iLO7kH08JQ 8pOAFyOhM6GSPorlM9Nyc8 HWOaJQQcoVDjR933d9stf1 tcdfRdkBT0yCloSBPjXIPp MElsDBNiVkJhBHUxIy6apO VkLiBccGFyfQ== SPECIAL STUDIES (test x0nnsINrDDNljXR4UwWzRD code = 3376) Ntf3cms2WihGTqsMWvBTjj dRUrqsKibg57eTI2kY68QB 1tTJOdGaY6TRWpoyX3Sia7 XDVyVDZgnFDdG895YMBvDN AcuSjpqvy9nK82QLYdqD9z lBDlGBq3XSRfqvLsrEwugR 4oZuYfIdHzIgYQeAAupR53 TSLjyoF9LYGzz10wf1OncQ btpkMdDPYfKKteF4j1IXXa LDAvRIY4r1Etm0SonL8ykR 3vfUzcwI5mbWYobGR3rrnx n3Ibx4CmF9wjzQMmvVCwlp MuXHBhciBNdWNpbiBccGFy WEWerrKly3jhT8uxHAJkLU E6WG4ptsCkCeMaGE7ptM62 w7Lqb46ku37opW8bcNAgtu OnY69ifZPexABxh4LgCLEs edIuxBM1LLXoRGbnswxys8 k8gPO2fYKzuOVtxJW8vVBd rTUqISDMvZNfJJZri805md 9hWEHuxRUohfJfmD8wTFif ygcenJVtON3lAMAfVVJtBQ FiQK49mmAoJE1jiJSck3ra veZnqKBpg8ZelYM1OVQflF OfhkizLg5sII46RGYlQJti mY9osNTpyqIzVX4lBF9fU4 M8bNNiGGZdjvHgl1gcKFhv GH4kUFKdoMohAmekIWYzOQ XqkvFdzST5DAJryWKyHGMt qUKhVCkevZVkg2eke8HmK3 bnnGazrXD9BGLcJ1sbfKJl wDK8ZJC0gH9hAVxfhhZqRQ Uyv4UdFVIhWFBaAzX2aF9p RDO3OoPAjNagYAT1ApO7GL hhZTAnSA1sBYpaWRoxO2Ic kPElVRDFWEWin1neE7iuOH Snf3BhbG7ztGW0oWDxTEYf gTG7KWUlJVN2CXelqQQbWE AiVHFhyQTzxPAtAw6jvAKr G1BoD6moalQhmHZqbQT2dN KbWNgsdmCyXIC1QRFdtC9d XV9iNFTlrIHxLF4teVGlSQ MfEJZwCEUfBPGef4NgLKZc zc37PENjZwaneAbzGYYkVw 0jJc6fDMSwqtPoOPS9GqTF TM2pyecwzPSijAfzig3lPV jiOAIQXZJmJQUmCHK7GZEx fN5sDBW4nRO3GYQ0C5lrL4 dgKMFjpjGkYF0fQVHveSKa uhVhIYdoFC3joDRwWWVrv7 DslxyoMSChTQL4YYE5VNld MGXxDACkSk8mQBVjfX2hR7 VfNDV9qbTyl9GuUdOBxAIq zR36mUVdof97RGFrUYIuO2 FyZGVkIGFzIGludmVzdGln XBGfc00ioCTsnpPke4Pvtr UeYWKzL5xoKUBjwBUheTZt u2JgoZ6daFHsmlSjBQV7vU NxAHFvrP4cROBpeZenKNZu aY7pO4UdDUkhCp2eNIOilg qiUZ0mxp61RW6gtdQgCC4w ovJhFX33rwXmUdFjXEo7JK gEWGrMLNo0UDBfzxUjtTIo jDHnNNTfcC4qzFQbIs0jmL BoaWdoIGNvbXBsZXhpdHkg Y5ulqskeOSosrUEqh2ZviC 6tqNY6IBA3wY8xFazbKVK0 Gross assessment was [facility] performed at ([facility], = 2777) Department of Pathology, [address] [place] [address], Technical component was [facility] performed at ([facility], = 2778) Department of Pathology, [address] [place] [address], Professional component [facility] was performed at ([facility], code = 2779) Department of Pathology, [address] [place] [address], [facility]00 Test Item Value Reference Range Interpretation Comments Case Report (test code Medical Cytology = 104) Report Case: [id number] Authorizing Provider: Amor Muller MD Collected: 11/29/2020 02:08 PM Ordering Location: [facility] Endoscopy Received: 11/30/2020 02:52 PM Services Pathologist: Moises Aguilar MD Specimen: Pancreas, pancreas cyst DIAGNOSIS (test code = x9jnlJGwXHVrf1eoFNQsuH 3220) FuZzEwMzNcZnRuYmpcdWMx IHtccnRmMVxlcGljOTIwMF xgfyEmTKJpbZAwN1Svrmiz FXdtCW1uYN0kiNlxjONgzK TcTNFaSmFfb1hdh090hUHf k4pzWPXUqbtmsZy9iAeiR0 8yt7I1YvogI78fdZAaSVxp bGFpblxmczIwIFBBTkNSRU JVLJUKB5IaTKcMRKRcJSCM RYLiQ8hKD6RAXZ6AGQnkbS RgNUTzFS7vIbzkYDIVQ1AO BNJAEHYBLdTLGFlPF23GRz NZXHBhclxmMCAgICAtIFRo ZSBtdWNpbiBzdGFpbiBzaG 11wdB8BUNfWBJfJDEgf7Uu vLHet3RrkUs9jPV6LZQqkx 31UOU3JbUpu3A5KSI7XJZd ELUvo7jrTSAxfLWfDrDfTc NcZnRuYmpcdWMxXGRlZmYw w2nfj770lOXus4snHJKhDi D4cVKgNWQdcLApI498RZNq TXzae1jed2OsCIBmlBNzp1 T2QMXOmevnmVw4dPevB42p s3B4WrnwJ5qeIKVdXMRrZ3 YjDJ1yNNAbGev3PEV2GPX7 OSKvIOWnP2RaAV2zBKLbzK YnCVs4f9vrvFgbLZUiBWV6 x6qeDGxfjuImDF0xnu7xzD z2y0uadyDcGNRyBAUrzCJD OBZsN8OdjFswQm4uqHl5bO mtFmmgOKE3Yax2LL2lsh63 lme6yFkpZXDmzmizRbX7FR ruHPZlewyhNHh2VKvmQQOh tNM2CZWwkTQjS3NoINSgCA 1axuy9AJY7TAisHLCkQbQ9 NDBcaGVhZGVyeTcyMFxmb2 10HNJ6XaEqGD4kE6Wvr1F3 dX8daYSyMLDzsJUaPfElDA Pngu0xlOIwGQqlk4JsHUZ5 oeX7iRZqwRUrNQMvClT2XM uxOJ4zbt79FJYoRFZ3pu3x bGNccGdicmRyaGVhZFxwZ2 WqXYGno576EWWcO6XhOPXb t4G2haWlSoRpGATkbVG9ty X2NSYtDB3ommexb2ekAPgd RTavGMHeksI7oiB2NSIbtF FpT5UhdF5nNQTyHA7fnolt n6cgJSE1GJqfJEEwAHS3Oh KfRTVtq1Memcg4NoDmp5Gh lTJkGHluX31xg313OGKtdd SpV4akbQHmxcjryZCqsicw GIeukfH8ZPPmUXwnorxcBO JbXCytW5sbTqBnROUyoCwi PXnqr3WoERDvAYXoByEzoX EcAPWbNig7RXHzeVBmISUq GiFnM6iqydymJkYTTMInb9 hoD9gqzRYTrSIuU5MhBGtx kmUfJYziWIbnYOClSXU0EK 4mMNWtUFBhpk96 COMMENT (test code = z8dvfIClTUQsdTB0GeCkQK 9521) Ite2gmn3IrxKYjuVVrOPbk rWKubjYzga46yEE7gU61QT 4xTMXfPwD7GDVivzC7Sba9 EXEfGPAyqZEiZ825a7gmt1 fitrGuaIX9kHayDBWdGVGa YWluXGZzMjAgQSBmZXcgcm XbM1RfrbLlDDIujWVzSMZk kPNjXRleWTzqB9UcmLVsXJ XeQP4cgCEcVJmuhGrpngNd BRuomxqrbvYsu9Y3fBW9kE 2rNY3eDYRpqCAnMWXadDlw gq0tpDRnYSKvgnHbot3zYU QqOXH5iDIdUXE9F9ZdiBYd jTp2dVMbgUGkVIZoeNloSe BccGFyfQ== CPT Code(s) (test code q8iveXHoJIMcmAQ8NcAyTH = 5223) Yzc7oxj0LqfNAevQFsMScu tKSkasCijl02hKS9jH59YN 2pCIWzHxX4WICetmP9Slk4 QSBxOGVkzIQgJ746f4kzo0 nfbsUddCA4sIceRUHlTEKl YWluXGZzMjAgODgxMDgsID u7EvAgHUVoml5= CLINICAL DATA (test s2bziPIyUNGrgAF5ViVrOK code = 3355) Lee5rwi1XgxUNsdNXfKSai tODuwlWihs59nXK6cI65PM 4lCWEeHjI7LEHqqgM6Bbq9 FLZkPWDoyFEvE985x0voa2 fcilLkeIP4vYckBQQcZSKf NBmtVGKqGrUyGt21YBRtGW gcVW81MKIoDAVaHHLio0js HUfuy1xibpLrlGrlJOY7pV GaBD6rWOZ8f9FwuFVzuvYi HhloXHScgoP4lRYjaFIlH2 JlYXRpYyBoZWFkXHBhcn0= SPECIMEN SOURCE (test o4idaXBePRTbhGY4MkBzXG code = 3377) Bhl0gmw4YhsEVovSDkRAxc hXEiuwVpmq90mHI9eE00AG 6aFSRiIhV0VWYmswE4Ovf7 PUZjTUHaaQWtO187k0gfg4 kmioJtxZH4fWjnWMPoRXUl TTtyNKWhPnScGIIEM0TJRV TeG2tJGVmxBZLMTOdwVt8S XHBhcn0= GROSS DESCRIPTION (test t1vmuGEeDGKeeOP3EiEdBZ code = 3366) Qqs2tna4BcvXRkxODhEXfx zRYikkQevb82dMG9rV40DD 0wPDJfIjY5TICcstR0Pqt1 VEGhZWCldPWgM854b1joh3 kvzpMzqAP8nCjsLPEaNVYh GLdoSTMcKeKkYsAiQSj8IW JbXYlllNsiK1m5s2KqG5od ztOlOPJiaZD0tQOkWMOhaS BsZTsgcHJlcGFyZWQgNCBj xBTab8EbebSjKD5hIRIegG HdrO8mY7j6s8EedH1iwJHn fQ== MICROSCOPIC DESCRIPTION c7fyvAYlAWOyuBP8LuRuWS (test code = 3371) Xeu0apk7ZhuGFztHHwDHzb rCXsnzSlcj31aTK5fA12HL 2eCSZjViD0PKYrrfG7Kmg4 SHAzXWWisXKeW883c2hhw7 gwndUnuJB2sZeeXWRiOOKx XJpiMDQnImPrBLJxMh9ggN VkLiBccGFyfQ== SPECIAL STUDIES (test m7ywwXAnECOvaHD2IbIjUU code = 3376) Aqe5ptp0SkyVTetPKiCVft bGFoldSrtx83bIN2iB02VT 5cCNSbLqK8NNJezrI6Jin9 AVVfFDCwxWYtY820TFNaYV SkyHwowkx1iY96JVEgbB0g vKAjEFg7BDFpfqMefRdwzQ 5jFeUfMoRbJyECdOBeiA45 WIBjluK5GNUcc19fp6WcbW dwanYzSFWzYIsaH8m8YNEc ZUGuJGE2s6Zsh8IzbA9gaK 5nsSdxtP4ktCFcaTI9zjmm q9Cjr0GwZ1jqoWZtlVDsxm MuXHBhciBNdWNpbiBccGFy QUPixmVap3gnF8clQIClAL E0GX0idtHaJgBjPO0jmJ33 v7Pmh55zs96qxV5jwDYavz JfG86gsPIxrOAfh0BdOQUx joWhgMZ0YNJjZIycnyucr9 s8xZA7pAZepZPtlJF9cRXo kPBkUPJCoIQgDFTgk186to 8lPCIlfYUnilVxbY8xSEvv ydzrjRMqQG0eBXAlTEMcAK LfKY99dqGaKO6smXKfr6ya vdGdnXZof6CqfGO1OQGbrU QxbhgaUv2uDV00EVPyGKrc pE7jqFAxakSaOU5gCT3zS3 F6gFXgIAPhkkThm7koGNub AV8pEHGecAwuGraqIPEjGQ XlydJbjXW6UIUxuGNzKUBa hSUoUBufnTItn4tpc3JjN4 nngMdhrWO8STKpN3fijUZb zFG1PIB4nN9iMKsnmuErJD Xcl3IpXFKeSNKdJqH6xD0y LUI2VpKAjWyeNTV5RaI2LW fpXKVtSZ2oDKwaJPteJ9Fd rEJxPEVPESGsa5zqH5vaKJ Sot0ZeuU5hdVP7oFYpTGOl fLT7EYIeDKB8CXcvcSTbUA TgPNDjmLTlxAIzHa0thRLm Z5EpX1fonoUnkPFriIP1bD NsQLitxmVnOHO1GTYsyO1n NB4cLMUqvGXpRA7wrIEmNB KtUAKcGEZsJTRyh3IzAZSe gv22IMPpNixexXrdIFVhCs 4gEm0zEAKhezFeJGO9WxFH RQ6iezcemLHllVurfe2iDY ovWNYZRMPdGXSqCAU2BZQs cU6uOBE1fQX4CTI4T7jbB2 suSMVhlwBwYS2pKZAgxQFh zwSzUEtjMX5bpBAlBBQgl4 ZuwxfqQTBbYPV0TNE9HQid YGDgTGZrQu4tXQYojO2mT9 YkHHV7bkBco3BjCoIUxZTn tM39eQYzfj82IXLbHYLwZ8 FyZGVkIGFzIGludmVzdGln IMBxl80ogOFevvGtl3Nkws DnUSJvD0wzJWLqxHOmxDYv v2VmzN4jvPVnjuCpSUW5sI LrRXVoiT5jSTUtuIebSVQn zD9gW7IzWChxUm9zZVNkks lsWC0sth41HE8mmnKdBT3p lsEqKL28eaVzPqSaBMd7RB jMOFtVRSx2ZOPpdcBhzJMc eJSzBNGssH2apMDsUw8rjC BoaWdoIGNvbXBsZXhpdHkg U5sbywjgGBocpKRjr6SnkY 2xhMJ1QJF5gB4iYmjwOBH3 Gross assessment was [facility] performed at ([facility], = 2777) Department of Pathology, [address] [place] [address], Technical component was [facility] performed at ([facility], = 6770) Department of Pathology, [address] [place] [address], Professional component [facility] was performed at ([facility], code = 2779) Department of Pathology, [address] [place] [address], [facility] 14:27:00Medical Cytology Report Case: [id number] Authorizing Provider: Amor Muller MD Collected: 11/29/2020 02:08 PM Ordering Location: [facility] Endoscopy Received: 11/30/2020 02:52 PM Services Pathologist: Moises Aguilar MD Specimen: Pancreas, pancreas cyst PANCREAS CYST, HEAD, FNA (CYTOSPINS): - NEGATIVE FOR MALIGNANCY - The mucin stain shows weak and focal positivity Signing Pathologist Direct Phone Line: [phone] signed by Moises Aguilar MD on 12/01/2020 at 2:27 PMA few reactive ductal epithelial cells are noted within a larger population of completely normaland non-reactive ductal epithelial cells. 01553, 656185.5 cm x 1.8 cm anechoic lesion suggestive of cyst identified in the pancreatic headPANCREAS CYST, HEAD, FNAReceived 17 ml cytorich red fixative jose enrique ple; prepared 4 cytospins and 1 mucin cytospinPerformed. The interpretation of this case included the use of immunohistochemistry or special stains.Mucin Control Slides Examined: In-house known positive controls were evaluated along with the test tissue. These control slides run alongside of the patients sample show appropriate staining. Internal positive and negative controls when available are evaluated Immunohistochemistry technical testing was performed at [facility], Pathology Laboratory where it was developed and its performance characteristics were determined. It has not been cleared or approved by the U.S. Food and Drug Administration. The FDA has determined that suchclearance or approval is not necessary. The test is used for clinical purposes. It should not be regarded as investigational or for research. This laboratory is certified under the Clinical Laboratory Improvement Amendments of 1988 (CLIA-88) as qualified to perform high complexity clinical laboratory t esting.[facility], Department of Pathology, [address] [place] [address], [facility], [address] [place] [address], [facility], [facility] of [facility], [address] [place] [address], TWVEZKVX [id number] 16:01:00 Test Item Value Reference Range Interpretation Comments Cytology (test code = See Separate Report 2629) [facility] [id number] 16:01:00 Test Item Value Reference Range Interpretation Comments Cytology (test code = See Separate Report 2629) [facility] [id number] 16:01:00 Test Item Value Reference Range Interpretation Comments CYTOLOGY RESULT POINTER See Separate Report (BEAKER) (test code = 2629) POC-Glucose [id number] 11:57:00 Test Item Value Reference Range Interpretation Comments POC-Glucose Meter (test 73 mg/dL 70-110 : TE STED AT [facility] code = 1538) [address] [place] [address], [facility] 30: Mandarin Teacher/Techni robbie ID = [id number] for DHRUV BRENDANKRISTIAN Carr Lab Interpretation (test Normal code = 97924-5) [facility]Glucose [id number] 11:57:00 Test Item Value Reference Range Interpretation Comments POC-Glucose Meter (test 73 mg/dL 70-110 : TE STED AT [facility] code = 1538) [address] [place] [address], 770 30: Mandarin Teacher/Techni robbie ID = [id number] for HEIDI BARTLETT Lab Interpretation (test Normal code = 67301-9) [facility]UCOSE [id number] 11:57:00 Test Item Value Reference Range Interpretation Comments POC-GLUCOSE METER 73 mg/dL 70-110 : TESTED A T [facility] 6720 (BEAKER) (test code = [place]HELLE [place], 1538) [address]: Mandarin Teacher/Techni robbie ID = [id number] for BRIAN LOCK CARLTON
[2022-08-02 20:38] LABS: Absolute Lymphocytes (CBC) 1.7 K/uL (0.7-4.9); Hematocrit 33.7 % (36.0-45.0); Lymphocytes % 24.4 % (15.3-44.8); MCV 95.5 fL (80-100); MPV 8.1 fL (7.6-11.3); RBC Red Blood Cell Count 3.53 M/uL (3.86-4.86)
[2022-08-02 20:51] LABS: Albumin 2.9 g/dL (3.4-5.0); Bilirubin Total 0.5 mg/dL (0.2-1.0); Potassium 4.2 mmol/L (3.5-5.1); Protein, Total 6.5 g/dL (6.4-8.2)
--- NOTE | 2022-08-02 22:08 | RAD REPORT ---
EXAM DESCRIPTION: CT - Abdomen Pelvis Wo Contrast - 08/02/2022 9:43 pm CLINICAL HISTORY: Abdominal pain COMPARISON: May [address] chest TECHNIQUE: Computed axial tomography of the abdomen and pelvis was obtained. IV and oral contrast we re not requested. All CT scans are performed using dose optimization technique as appropriate and may include automated exposure control or mA/KV adjustment according to patient size. FINDINGS: The evaluation of solid organs, vessels and bowel is limited secondary to the lack of con trast administration. The liver, spleen, adrenals and kidneys appear grossly normal. Pancreatic cystic masses are unchanged Large number of diverticula stem from the colon without evidence of diverticulitis. Rectum is mildly distended with stool. Moderate periumbilical hernia Hysterectomy. No adnexal mass Moderate to marked compression fracture L1 unchanged from May 30 2022. Minimal retropulsion of b one into the spinal canal IMPRESSION: Approximately 70% compression fracture L1 vertebral body unchanged from July 30, 2022 . It appears subacute. Stable pancreatic cystic masses
[2022-08-02] MEDS ORDERED: FENTANYL CITR 100 MCG/2 ML ONE (22:15)
--- NOTE | 2022-08-02 23:27 | ER ---
Nurse's Notes [facility] Name: Caridad Chadwick Age: 87 yrs Sex: Female : 1935 Arrival Date: 08/02/2022 Time: 19:36 Bed 19 Private MD: Diagnosis: Fecal impaction;Umbilical hernia without obstruction or gangrene Presentation: 08/02 19:36 Chief complaint: EMS states: Toned out for constipation and pain all over, EMS states ll3 pt fell out of bed on Thursday, pt c/o of rectal pain and pain to bilateral arms and right leg. Coronavirus screen: Vaccine status: Patient reports receiving the 2nd dose of the covid vaccine. At this time, the client does not indicate any symptoms associated with coronavirus-19. Ebola Screen: No symptoms or risks identified at this time. Initial Sepsis Screen: Does the patient meet any 2 criteria? No. Patient's initial sepsis screen is negative. Does the patient have a suspected source of infection? No. Patient's initial sepsis screen is negative. Risk Assessment: Do you want to hurt yourself or someone else? Patient reports no desire to harm self or others. 19:36 Method Of Arrival: EMS: [facility] 19:36 Acuity: ZOIE 3 3 19:39 Onset of symptoms was August 02, 2022. 3 Triage Assessment: 19:39 General: Appears in no apparent distress. uncomfortable, Behavior is cooperative, ll3 anxious. Pain: Complains of pain in buttocks, right arm, left arm and right leg Pain currently is 10 out of 10 on a pain scale. Neuro: Level of Consciousness is awake, alert, obeys commands, Oriented to person, place, time, situation. Respiratory: Respiratory effort is even, unlabored, Respiratory pattern is regular, symmetrical. GI: Reports constipation. Derm: Bruising that is on chest, right arm and left arm. Musculoskeletal: Reports pain in right arm, left arm and right leg since Falling on thursday. Historical: - Allergies: 19:39 codeine sulfate; ll3 - Home Meds: 19:39 sodium bicarbonate 325 mg Oral tab [Active]; carvedilol 12.5 mg Oral tab 1 tab 2 times ll3 per day [Active]; duloxetine 30 mg Oral cpDR 1 cap once daily [Active]; hydroxychloroquine 200 mg Oral tab 1 tab once daily [Active]; levothyroxine 100 mcg cap 1 cap once daily [Active]; metformin 500 mg Oral tab 1 tab 2 times per day [Active]; olmesartan 20 mg Oral tab 1 tab once daily [Active]; prednisone 5 mg/mL Oral conc once daily [Active]; Probiotic 20 billion cell Oral cap [Active]; rosuvastatin 5 mg Oral cpSP 1 cap at bedtime [Active]; - PMHx: 19:39 C DIFF; Cyst on pancreas; Diabetes - NIDDM; Diverticulitis; GERD; Hypertension; ll3 Hypothyroidism; Rheumatoid Arthritis; - Immunization history:: Client reports receiving the 2nd dose of the Covid vaccine. - Social history:: Smoking status: Patient denies any tobacco usage or history of. Screenin:10 Abuse screen: Denies threats or abuse. Denies injuries from another. Nutritional ll3 screening: No deficits noted. Tuberculosis screening: No symptoms or risk factors identified. 08/03 00:28 Fall Risk Fall in past 12 months (25 points). No secondary diagnosis (0 pts). IV access ll3 (20 points). Ambulatory Aid- Crutches/Cane/Walker (15 pts). Gait- Weak (10 pts.). Mental Status- Oriented to own ability (0 pts). Total Davidson Fall Scale indicates High Risk Score (45 or more points). Fall prevention measures have been instituted. Side Rails Up X 2 Placed Close to Nursing Station Family Present and informed to notify staff if the need to leave the bedside As available patient and family educated on Fall Prevention Program and Strategies. Assessment: 08/02 19:42 General: See triage assessment. ll3 22:00 Reassessment: Pt c/o being unable to pass stool, Ramya Mendiola notified. ll3 22:09 Reassessment: Zac Mendiola at bedside. ll3 Vital Signs: 19:36 BP 174 / 92; Pulse 89; Resp 18; Temp 98.0(O); Pulse Ox 97% on R/A; Weight 63.5 kg (R); ll3 Height 5 ft. 2 in. (157.48 cm) (R); Pain 10/10; 22:11 BP 148 / 87; Pulse 92; Resp 18; Pulse Ox 100% on R/A; ll3 23:15 BP 170 / 91; Pulse 83; Resp 17; Pulse Ox 97% on R/A; ll3 19:36 Body Mass Index 25.61 (63.50 kg, 157.48 cm) ll3 ED Course: 19:36 Patient arrived in ED. ll3 19:39 Triage completed. ll3 19:39 Arm band placed on Patient placed in an exam room, on a stretcher, on pulse oximetry. ll3 19:48 Pablito Laura DO is Attending Physician. ms3 20:10 Ramya Mendiola FNP-C is [facility]. kb 20:23 Initial lab(s) drawn, by me, sent to lab. Inserted saline lock: 22 gauge in left ll3 antecubital area, using aseptic technique. Blood collected. 21:43 Abdomen In Process Unspecified. EDMS 22:10 Patient has correct armband on for positive identification. Bed in low position. Call ll3 light in reach. Side rails up X 1. Adult w/ patient. 23:10 Dressings: Kerlix X 1; right arm non-adherent dressing x 1 right arm. ll3 08/03 00:28 No provider procedures requiring assistance completed. IV discontinued, intact, ll3 bleeding controlled, No redness/swelling at site. Pressure dressing applied. Administered Medications: 08/02 22:18 Drug: fentaNYL (PF) 25 mcg Route: IVP; Site: left antecubital; ll3 08/03 00:29 Follow up: Response: No adverse reaction ll3 08/02 23:34 Drug: NS 0.9% 500 ml Route: IV; Rate: bolus; Site: left antecubital; ll3 Medication: 08/03 00:28 VIS not applicable for this client. ll3 Outcome: 08/02 23:26 Discharge ordered by . kayli 08/03 00:28 Discharged to home ambulatory, with family. ll3 Condition: stable Discharge instructions given to patient, family, Instructed on discharge instructions, follow up and referral plans. Demonstrated understanding of instructions, follow-up care. 00:29 Patient left the ED. ll3 Signatures: Dispatcher [employer] EDMS Ramya Mendiola FNP-C FNP-Ckb Sims, Marcus, DO DO ms3 [place] RN RN ll3 Corrections: (The following items were deleted from the chart) 08/02 19:40 19:36 Onset of symptoms was July 28, 2022 ll3 ll3
--- NOTE | 2022-08-02 23:27 | EDPHYS ---
Physician Documentation [facility] Name: Caridad Chadwick Age: 87 yrs Sex: Female : 1935 Arrival Date: 08/02/2022 Time: 19:36 Bed 19 Private MD: ED Physician Pablito Laura HPI: 08/02 23:49 This 87 yrs old Female presents to ER via EMS with complaints of rectal pain, abd pain. kb 23:49 The patient presents with abdominal pain. Onset: The symptoms/episode began/occurred kb today. The symptoms do not radiate. Associated signs and symptoms: Pertinent positives: constipation. The symptoms are described as intermittent. Modifying factors: The symptoms are alleviated by nothing, the symptoms are aggravated by nothing. Severity of pain: At its worst the pain was moderate in the emergency department the pain has resolved. The patient has not experienced similar symptoms in the past. The patient has been recently seen by a physician:. Pt reports abd pain and rectal pain at home, EMS was called and pt brought in. Pt reports she feels better now and doesn't want to be here. States she just wants to go home now. I spoke with pt about getting her symptoms evaluated since she was here and pt agreed. Pt awake, alert and oriented x4.. Historical: - Allergies: 19:39 codeine sulfate; ll3 - Home Meds: 19:39 sodium bicarbonate 325 mg Oral tab [Active]; carvedilol 12.5 mg Oral tab 1 tab 2 times ll3 per day [Active]; duloxetine 30 mg Oral cpDR 1 cap once daily [Active]; hydroxychloroquine 200 mg Oral tab 1 tab once daily [Active]; levothyroxine 100 mcg cap 1 cap once daily [Active]; metformin 500 mg Oral tab 1 tab 2 times per day [Active]; olmesartan 20 mg Oral tab 1 tab once daily [Active]; prednisone 5 mg/mL Oral conc once daily [Active]; Probiotic 20 billion cell Oral cap [Active]; rosuvastatin 5 mg Oral cpSP 1 cap at bedtime [Active]; - PMHx: 19:39 C DIFF; Cyst on pancreas; Diabetes - NIDDM; Diverticulitis; GERD; Hypertension; ll3 Hypothyroidism; Rheumatoid Arthritis; - Immunization history:: Client reports receiving the 2nd dose of the Covid vaccine. - Social history:: Smoking status: Patient denies any tobacco usage or history of. ROS: 23:42 Constitutional: Negative for fever, chills, and weight loss. kb 23:42 Abdomen/GI: Positive for constipation, Negative for nausea, vomiting, and diarrhea. 23:42 All other systems are negative. Exam: 23:42 Constitutional: This is a well developed, well nourished patient who is awake, alert, kb and in no acute distress. Head/Face: Normocephalic, atraumatic. ENT: Moist Mucous membranes Cardiovascular: Regular rate and rhythm with a normal S1 and S2. No gallops, murmurs, or rubs. No pulse deficits. Respiratory: Respirations even and unlabored. No increased work of breathing. Talking in full sentences Skin: Warm, dry with normal turgor. Normal color. MS/ Extremity: Pulses equal, no cyanosis. Neurovascular intact. Full, normal range of motion. Neuro: Awake and alert, GCS 15, oriented to person, place, time, and situation. Moves all extremities. Normal gait. 23:42 Abdomen/GI: Inspection: abdomen appears normal, Bowel sounds: normal, Palpation: abdomen is soft and non-tender, Rectal exam: fecal impaction, that is moderate, Hernia: noted in the umbilical area. Vital Signs: 19:36 BP 174 / 92; Pulse 89; Resp 18; Temp 98.0(O); Pulse Ox 97% on R/A; Weight 63.5 kg (R); ll3 Height 5 ft. 2 in. (157.48 cm) (R); Pain 10/10; 22:11 BP 148 / 87; Pulse 92; Resp 18; Pulse Ox 100% on R/A; ll3 23:15 BP 170 / 91; Pulse 83; Resp 17; Pulse Ox 97% on R/A; ll3 19:36 Body Mass Index 25.61 (63.50 kg, 157.48 cm) ll3 Procedures: 23:42 Fecal disimpaction: digital disimpaction was performed, with a large amount of stool kb expressed. The patient tolerated the intervention well. MDM: 20:10 Patient medically screened. kb 23:47 Data reviewed: vital signs, nurses notes. Data interpreted: Pulse oximetry: on room air kb is 97 %. Interpretation: normal. Counseling: I had a detailed discussion with the patient and/or guardian regarding: the historical points, exam findings, and any diagnostic results supporting the discharge/admit diagnosis, lab results, radiology results, the need for outpatient follow up, a family practitioner, to return to the emergency department if symptoms worsen or persist or if there are any questions or concerns that arise at home. 23:50 ED course: Pt started to have pain again. Rectal exam revealed fecal impaction. Large kb amount of stool removed. Pt resolved. Umbilical hernia reduced with ease. Pt reports it has been there for a long time and her doctors have always told her not to worry about it. 08/02 20:10 Order name: CBC with Diff; Complete Time: 20:52 kb 08/02 20:10 Order name: CMP; Complete Time: 20:52 kb 08/02 20:10 Order name: Lipase; Complete Time: 20:52 kb 08/02 21:05 Order name: Abdomen ; Complete Time: 22:09 EDMS 08/02 20:10 Order name: IV Saline Lock; Complete Time: 20:23 kb 08/02 20:10 Order name: Labs collected and sent; Complete Time: 20:23 kb Administered Medications: 22:18 Drug: fentaNYL (PF) 25 mcg Route: IVP; Site: left antecubital; ll3 08/03 00:29 Follow up: Response: No adverse reaction 3 08/02 23:34 Drug: NS 0.9% 500 ml Route: IV; Rate: bolus; Site: left antecubital; ll3 Disposition: 08/03 05:13 Co-signature as Attending Physician, Pablito RAMSEY was immediately available onsite ms3 in the emergency department for consultation in the care of the patient. Disposition Summary: 08/02/22 23:26 Discharge Ordered Location: Home kb Condition: Stable kb Diagnosis - Fecal impaction kb - Umbilical hernia without obstruction or gangrene kb Followup: kb - With: Emergency Department - When: As needed - Reason: Worsening of condition Followup: kb - With: Private Physician - When: 2 - 3 days - Reason: Recheck today's complaints, Continuance of care, Re-evaluation by your physician Discharge Instructions: - Discharge Summary Sheet kb - Fecal Impaction kb - Hernia, Adult, [id number] kb Forms: - Medication Reconciliation Form kb - Thank You Letter kb - Antibiotic Education kb - Prescription Opioid Use kb Signatures: Dispatcher [employer] EDMS Ramya Mendiola, REAL ESTATE ADMINISTRATIVE ASSISTANT-C REAL ESTATE ADMINISTRATIVE ASSISTANT-Ckb Pablito Laura, DO DO ms3 [place] RN RN ll3 Corrections: (The following items were deleted from the chart) 08/02 21:05 20:35 Abdomen ordered. EDMS EDMS
[2022-08-02] MEDS ORDERED: NA CHLORIDE 0.9% 500 ML ONE (23:31)
[2022-08-03 00:48] VITALS: TEMP 98
[2022-08-03 00:55] VITALS: BP 170/91; O2SAT 97
== END 2022-08-03 00:29 | disposition home or self-care (01) ==
LOC: ER 19:33
DX: K56.41 Fecal impaction (principal); K42.9 Umbilical hernia without obstruction or gangrene; I10 Essential (primary) hypertension; E11.9 Type 2 diabetes mellitus without complications; Z88.5 Allergy status to narcotic agent
CPT/HCPCS: 85025; 36415; 83690; 80053; 74176; 96374; 99284; J3010; J7040

== ENCOUNTER 2023-03-18 17:52 | Observation (INO) | payer OTHER ==
--- OUTSIDE RECORDS SUMMARY | 2023-03-18 17:55 | XMS REPORT | Clinical Summary ---
:1935 Author Organization [facility] MD [facility] Address [address] [place] [address] Care Team Providers Name Role Phone Trav Abernathy MD Unavailable Chyna Velazquez MD Primary Care Provider Kinsey Rosado MD Unavailable Allergies Active Allergy Reactions Severity Noted [...] (BACTROBAN) 2% Apply topically 30 g 5 09/16/202 1 Active ointmentIndications: to affected Neoplasm of uncertain [...] Encounters Date Type Specialty Care Team Description 06/27/2022 Telephone Dermatology Rina Smith RN after 03/18/2022 Surgical History Surgery Date Site/Laterality Comments COLONOSCOPY [...] Tobacco Use Types Packs/Day Years Used Date Smoking Tobacco: Never Smokeless Tobacco: Never Alcohol Use Standard Drinks/Week Comments Not Currently 0 (1 standard drink = 0.6 oz pure alcoho l) Sex Assigned at Date Recorded Not on file Job Start Date Occupation Industry Not on file Not on file Not on file Obstetrics History Last Filed Vital Signs Not on file Plan of Treatment Health Maintenance Due Date Last Done Comments COVID-19 Vaccination (#1) 01/07/1936 Results Not on fileafter 03/18/2022 Insurance Payer Benefit Plan / Subscriber ID Effective Phone Address T ype Group Dates [employer] MEDICARE [id number] 2021-Prese [address] Medicare HEALTHCARE ADVANTAGE [place] [employer] [id number] Care Teams Asbestos Microscopist Relationship Specialty Start Date End Date Trav Abernathy MD PCP - External Referring Internal Medicine 06/19/[address] [place] [address] [place] [address] Chyna Velazquez MD PCP - General Dermatology 06/20/[address] [place] [address] [phone] Kinsey Rosado, [place] - External Follow Up Dermatology 07/04/21 MD [facility] [address] [place] [address] [phone]
--- OUTSIDE RECORDS SUMMARY | 2023-03-18 18:01 | XMS REPORT | Continuity of Care Document ---
:1935 Author Organization [facility] t Address [address] [place]. [address] [place] [address] Care Team Providers Name Role Phone SINCERE CORNELIUS Primary Care Physician Unavailable AMOR MULLER Attending Clinician Unavailable SYSTEM, PROVIDER NOT IN Attending Clinician Unavailable Doctor Unassigned, Dillon Attending Clinician Unavailable Luis SU, Rina Figueroa Attending Clinician Lawanda Bocanegra MD Attending Clinician TA PUENTES Attending Clinician Unavailable Britney Calderon RN Attending Clinician Unavailable Sang Downs RN Attending Clinician Unavailable Ashley Adkins MD Attending Clinician Kinsey Benitez MD Attending Clinician KINSEY BENITEZ Attending Clinician Unavailable ASHLEY ADKINS Attending Clinician Unavailable KERA CH K.HAngi Attending Clinician Unavailable Tamika Bullard RN Attending Clinician Unavailable Mina Cummins Attending Clinician Daniel Paul MD Attending Clinician DANIEL PAUL Attending Clinician Unavailable Dima DELANEY, Kera K.H. Attending Clinician Fran Romo MD Attending Clinician FRAN ROMO Attending Clinician Unavailable Ralf SU, Luis Felipe Figueroa Attending Clinician Unavailable TYRON STRINGER Attending Clinician Unavailable Jordan Vicente Attending Clinician Amadeo DELANEY, Prabhakar Attending Clinician Tyron Stringer MD Attending Clinician Amor Muller MD Attending Clinician Vandana Moran MD Attending Clinician [phone] Ronda Joseph Attending Clinician [phone] AMOR MULLER Admitting Clinician Unavailable Daniel Paul MD Admitting Clinician DANIEL PAUL Admitting Clinician Unavailable TYRON STRINGER Admitting Clinician Unavailable Tyron Stringer MD Admitting Clinician Payers Payer Name Policy Type Policy Number Effective Date Expiration Date [facility] [id number] 1998 00:00:00 [employer] TRS RETIREES [id number] 2010 2010 00:00:00 00:00:00 [facility] [id number] 2020 2020 00:00:00 00:00:00 Problems Condition Condition Condition Status Onset Resolution Last Treating Co mments Source Name Details Category Date Date Treatment Clinician Date Weakness Weakness Disease Active Unive rs 5-22 ity of 00:00: [address] Branch Chronic Chronic Disease Active Univers diastolic [...] kidney kidney 00:00: [place] disease disease 00 [facility] C. C. Disease Active Univers difficile difficile 5-22 ity of colitis colitis 00:00: [place] 00 [facility] Branch Chest pain Chest pain Disease Active U nivers in adult in adult 5-21 ity of 00:: [place] [facility] Complicate Complicate Disease Active U [...] 02-21 it y of on on 00:: Medical Branch Dyslipidem Dyslipidem Disease Active U nivers ia ia 02-21 ity of 00:00: [place] [facility] Elevated Elevated Disease Active Unive [...] Added automatic ally from request for surgery [id number] Spondyloli Spondyloli Disease Active Overview : 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 Added automatic ally from request for surgery [id number] Trochanter Trochanter Disease Active Overview : Methodi ic ic 2-[address] bursitis bursitis 00:00: g of this Hos mario of right of right 00 note l hip hip might be different from the original. Added automatic ally from request for surgery [id number] Diverticul Diverticul Disease Active M ethodi itis [...] Hospita 00 l Degenerati Degenerati Disease Active C [facility]09 [facility] lumbar or lumbar or 00:00: Medi eduar lumbosacra lumbosacra 00 Ce nter l l interverte interverte bral disc bral disc Allergies, Adverse Reactions, Alerts Allergy Allergy Status Severity Reaction(s) Onset Inactive Treating Comm ents Source Name Type Date Date Clinician CODEINE DRUG Active Hives Univers INGREDI 5-05 ity of 00:00: [place] 00 Medical Branch Codeine Propensi Active Hives dizzy Univers ty to 505 ity of adverse 00:00: [place] reaction 00 Medical s Branch Codeine Propensi Active Other (See FEELS Met hodi ty to Comments) 5-[address] adverse 00:00: PT Hospita reaction 00 l s to drug Codeine Drug Active Other [facility] All[facility]-20 [facility]( [facility] 00:[facility]: s): Other Medical 00 (See Center Comments) FEELS CRAZY PER PT CODEINE Allergy Active Low [facility] Center NO KNOWN Allergy Active [facility] Family History Family Member Diagnosis Comments Start Date Stop Date Source Natural brother Diabetes [facility] Natural father Lung cancer [facility] Natural mother Old [facility] Social History Social Habit Start Date Stop Date Quantity Comments Source Gender identity [facility] Sexual orientation [facility] History SDOH [facility] Frequency Hospita l History SDOH [facility] Alcohol Std Drinks Hospit al History SDOH [facility] Alcohol Binge Hospital Exposure to Not sure University of SARS-CoV-2 (event) [facility] History of Social 2023-01-20 2023-01-[address] function 00:00:00 00:00:00 Hospital Tobacco use and 2021-06-21 2021-06-21 Smokeless Universit y of exposure 00:00:00 00:00:00 tobacco non-user [place] MD [facility] Education 2021-03-08 2021-03-08 17 University of 00:00:00 00:00:00 [facility] Alcohol intake 2020-11-30 2020-11-30 [facility]00 of [facility] (finding) Alcohol Comment 2020-11-26 2020-11-26 [address] [facility] 00:00:00 00:00:00 [facility] Sex Assigned At [birth year] MOY Dior 00:00:00 00:00:00 [facility] Smoking Status Start Date Stop Date Source Never smoked tobacco [facility] Medications Ordered Filled Start Stop Current Ordering Indication Dosage Frequency Signature Comments Components Source Medication Medication Date Date Medication? Clinician (SIG) Name Name omeprazole 2020-10 Yes 20mg Take 20 mg U nivers (PriLOSEC) 2-03 by mouth ity o f 20 mg 09:58: daily. [place] capsule 05 MD Bakari bill [facility] Lactobacill 2020-10 Yes Take by Uni vers us 2-03 mouth. ity of acidophilus 09:58: [place] (PROBIOTIC 05 ORAL) Bakari bill [facility] acetaminoph 2020-10 Yes 500mg Take 500 U nivers en 2-03 mg by ity of (TYLENOL) 09:58: mouth. [place] 500 mg 05 MD susan Villegas [facility] metFORMIN 2020-10 Yes 500mg Take 500 Uni vers (GLUCOPHAGE 2-03 mg by ity of ) 500 mg 09:58: mouth [place] tablet 05 daily. MD Bakari bill [facility] DULoxetine 2020-10 Yes 30mg Take 30 mg U nivers (CYMBALTA) 2-03 by mouth ity o f 30 mg 09:58: daily. [place] capsule 05 MD Bakari bill [facility] levothyroxi 2020-10 Yes 100ug Take 100 U omar ne 2-03 mcg by ity of (SYNTHROID, 09:58: mouth [place] LEVOTHROID) 05 daily. 100 mcg Bakari davis [facility] olmesartan 2020-10 Yes 40mg Take 40 mg U nivers (BENICAR) 2-03 by mouth ity of 40 mg 09:58: daily. [place] tablet 05 MD Bakari bill [facility] omeprazole 2020-10 Yes 20mg Take 20 mg U nivers (PriLOSEC) 2-03 by mouth ity o f 20 mg 09:58: daily. [place] capsule 05 MD Bakari bill [facility] Lactobacill 2020-10 Yes Take by Uni vers us 2-03 mouth. ity of acidophilus 09:58: [place] (PROBIOTIC 05 ORAL) [facility] acetaminoph 2020-10 Yes 500mg Take 500 U nivers en 2-03 mg by ity of (TYLENOL) 09:58: mouth. [place] 500 mg 05 [facility] 2020-10 Yes 500mg Take 500 Uni vers (GLUCOPHAGE 2-03 mg by ity of ) 500 mg 09:58: mouth [place] tablet 05 daily. MD Bakari bill [facility] DULoxetine 2020-10 Yes 30mg Take 30 mg U nivers (CYMBALTA) 2-03 by mouth ity o f 30 mg 09:58: daily. [place] capsule 05 MD Bakari bill [facility] levothyroxi 2020-10 Yes 100ug Take 100 U nivers ne 2-03 mcg by ity of (SYNTHROID, 09:58: mouth [place] LEVOTHROID) 05 daily. 100 mcg Bakari davis [facility] olmesartan 2020-10 Yes 40mg Take 40 mg U nivers (BENICAR) 2-03 by mouth ity of 40 mg 09:58: daily. [place] tablet 05 MD Bakari bill [facility] omeprazole 2020-10 Yes 20mg Take 20 mg U nivers (PriLOSEC) 2-03 by mouth ity o f 20 mg 09:58: daily. [place] capsule 05 MD Bakari bill [facility] Lactobacill 2020-10 Yes Take by Uni vers us 2-03 mouth. ity of acidophilus 09:58: [place] (PROBIOTIC 05 MD ORAL) [facility] acetaminoph 2020-10 Yes 500mg Take 500 U nivers en 2-03 mg by ity of (TYLENOL) 09:58: mouth. [place] 500 mg 05 MD davis [facility] metFORMIN 2020-10 Yes 500mg Take 500 Uni vers (GLUCOPHAGE 2-03 mg by ity of ) 500 mg 09:58: mouth [place] tablet 05 daily. MD Bakari bill [facility] DULoxetine 2020-10 Yes 30mg Take 30 mg U nivers (CYMBALTA) 2-03 by mouth ity o f 30 mg 09:58: daily. [place] capsule 05 MD Bakari bill [facility] levothyroxi 2020-10 Yes 100ug Take 100 U nivers ne 2-03 mcg by ity of (SYNTHROID, 09:58: mouth [place] LEVOTHROID) 05 daily. 100 mcg Andenrique tablet n [facility] olmesartan 2020-10 Yes 40mg Take 40 mg U nivers (BENICAR) 2-03 by mouth ity of 40 mg 09:58: daily. [place] tablet 05 MD Bakari bill [facility] Centratex 2020-10 Yes TAKE ONE Univ ers 106 mg 0-07 CAPSULE BY ity of iron- 1 mg 00:00: MOUTH [place] cap 00 TWICE MD DAILY Andenrique bill [facility] Centratex 2020-10 Yes TAKE ONE Univ ers 106 mg 0-07 CAPSULE BY ity of iron- 1 mg 00:00: MOUTH [place] cap 00 TWICE MD DAILY Andenrique bill [facility] Centratex 2020-10 Yes TAKE ONE Univ ers 106 mg 0-07 CAPSULE BY ity of iron- 1 mg 00:00: MOUTH [place] cap 00 TWICE MD DAILY Andenrique bill [facility] 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 n including 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 n including 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 n including [facility] mupirocin Yes Neoplasm of Apply Univers (BACTROBAN) 9-16 uncertain topically ity of 2% ointment 00:00: behavior of to skin affected MD area(s) Anderso twice n daily. [facility] mupirocin Yes Neoplasm of Apply Univers (BACTROBAN) 9-16 uncertain topically ity of 2% ointment 00:00: behavior of to skin affected MD area(s) Anderso twice n daily. [facility] mupirocin Yes Neoplasm of Apply Univers (BACTROBAN) 9-16 uncertain topically ity of 2% ointment 00:00: behavior of to skin affected MD area(s) Bakari twice n daily. [facility] levocetiriz Yes Univer s ine (XYZAL) 9-07 ity of 5 MG tablet 00:00: MD Bakari bill [facility] levocetiriz Yes Univer s ine (XYZAL) 9-07 ity of 5 MG tablet 00:00: MD Bakari bill [facility] levocetiriz Yes Univer s ine (XYZAL) 9-07 ity of 5 MG tablet 00:00: MD Bakari bill [facility] fluticasone Yes SHAKE Unive rs propionate 9-04 LIQUID AND ity of (FLONASE) 00:00: USE 1 SPRAY IN MD mcg/spray EACH Anderso nasal spray NOSTRIL n TWICE Cancer DAILY [facility] fluticasone Yes SHAKE Unive rs propionate 9-04 LIQUID AND ity of (FLONASE) 00:00: USE 1 50 SPRAY IN MD mcg/spray EACH [place]o nasal spray NOSTRIL n TWICE Cancer DAILY [facility] fluticasone Yes SHAKE Unive rs propionate 9-04 LIQUID AND ity of (FLONASE) 00:00: USE 1 50 SPRAY IN MD mcg/spray EACH Anderso nasal spray NOSTRIL n TWICE Cancer DAILY [facility] predniSONE Yes 5mg Take 5 mg Un ignacia (DELTASONE) 5-27 by mouth ity of 5 mg tablet 00:00: daily. MD Bakari bill [facility] predniSONE Yes 5mg Take 5 mg Un ignacia (DELTASONE) 5-27 by mouth ity of 5 mg tablet 00:00: daily. MD Villegas [facility] predniSONE Yes 5mg Take 5 mg Un ignacia (DELTASONE) 5-27 by mouth ity of 5 mg tablet 00:00: daily. MD Bakari bill [facility] predniSONE Yes [id number] 5mg Take 1 Univers 5 mg tablet 5-27 tablet by ity of 00:00: mouth [place] 00 daily. Medical Branch predniSONE Yes [id number] 5mg Take 1 Univers 5 mg tablet 5-27 tablet by ity of 00:00: mouth [place] 00 daily. Medical Branch predniSONE Yes [id number] 5mg Take 1 Univers 5 mg tablet 5-27 tablet by ity of 00:00: mouth [place] 00 daily. Medical Branch Iron-Folic Yes Take by [facility] ers Acid-Mv, 5-26 mouth 2 ity of Min Cmb#15 19:33: (two) [place] (CENTRATEX) 14 times Medical 106 mg daily. Branch iron- 1 mg Cap Iron-Folic Yes Take by [facility] ers Acid-Mv, 5-26 mouth 2 ity of [...] of 12.5 mg 17:25: 00:00 mouth 2 [place] tablet 18 :00 (two) Medical times Branch daily with meals. metFORMIN 2020- No 500mg Take 500 Un ignacia 500 mg 5-26 05-26 mg by ity of tablet 17:25: 00:00 mouth 2 [place] 18 :00 (two) Medical times Branch daily with meals. DULoxetine 2020- No 30mg Take 30 mg Univers 30 mg 5-26 05-26 by mouth ity of capsule 17:25: 00:00 daily. [place] 18 :00 Medical Branch olmesartan 2020- No 40mg Take 40 mg Univers 40 mg 5-26 05-26 by mouth ity of tablet 17:25: 00:00 daily. [place] 18 :00 Medical Branch famciclovir 2020- No 1{tbl} Take 1 U nivers (FAMVIR 5-26 05-26 tablet by ity of ORAL) 17:25: 00:00 mouth 3 [place] 18 :00 (three) Medical times Branch daily. hydrOXYchlo 2020- No 200mg Take 200 Univers roQUINE 5-26 05-26 mg by ity of (PLAQUENIL) 17:25: 00:00 mouth [place] 200 mg 18 :00 daily. Medical tablet Branch levothyroxi 2020- No 88ug Take 88 Un ignacia ne 88 mcg 5-26 05-26 mcg by ity of tablet 17:25: 00:00 mouth [place] 18 :00 daily. 6AM Medical Branch omeprazole 2020- No 25mg Take 25 mg Univers 20 mg 5-26 05-26 by mouth ity of capsule 17:25: 00:00 daily. [place] 18 :00 Medical Branch rosuvastati 2020- No 5mg Take 5 mg Univers n (CRESTOR) 5-26 05-26 by mouth ity of 5 mg tablet 17:25: 00:00 at [place] 18 :00 bedtime. Medical Branch carvediloL 2020- No 12.5mg Take 12.5 Univers (COREG) 5-26 05-26 mg by ity of 12.5 mg 17:25: 00:00 mouth 2 [place] tablet 18 :00 (two) Medical times Branch [...] (two) Medical times Branch daily with meals. Iron-Folic Yes Take by [facility] ers Acid-Mv, 5-26 mouth 2 ity of Min Cmb#15 14:33: (two) [place] (CENTRATEX) 14 times Medical 106 mg daily. Branch iron- 1 mg Cap carvedilol Yes 12.5mg Take 12.5 Univers (COREG) 5-26 mg by ity of 12.5 mg 00:00: mouth [place] tablet 00 daily. MD Bakari bill [facility] hydrOXYchlo Yes 200mg Take 200 U nivers roQUINE 5-26 mg by ity of (PLAQUENIL) 00:00: mouth [place] 200 mg 00 daily. MD susan bill [facility] rosuvastati 2021-0 Yes 5mg Take 5 mg U nivers n (CRESTOR) 5-26 by mouth ity of 5 mg tablet 00:00: daily. MD Bakari bill [facility] carvedilol Yes 12.5mg Take 12.5 Univers (COREG) 5-26 mg by ity of 12.5 mg 00:00: mouth [place] tablet 00 daily. MD Bakari bill [facility] hydrOXYchlo Yes 200mg Take 200 U nivers roQUINE 5-26 mg by ity of (PLAQUENIL) 00:00: mouth [place] 200 mg 00 daily. MD susan bill [facility] rosuvastati Yes 5mg Take 5 mg U nivers n (CRESTOR) 5-26 by mouth ity of 5 mg tablet 00:00: daily. MD Bakari bill [facility] carvedilol Yes 12.5mg Take 12.5 Univers (COREG) 5-26 mg by ity of 12.5 mg 00:00: mouth [place] tablet 00 daily. MD Bakari bill [facility] hydrOXYchlo Yes 200mg Take 200 U nivers roQUINE 5-26 mg by ity of (PLAQUENIL) 00:00: mouth [place] 200 mg 00 [facility]. [facility] Yes 5mg Take 5 mg U nivers n (CRESTOR) 5-26 by mouth ity of 5 mg tablet 00:00: daily. [facility] hydrOXYchlo Yes [id number] 200mg Take 1 Univers roQUINE 5-26 tablet by ity of (PLAQUENIL) 00:00: mouth [place] 200 mg 00 daily. Medical tablet Branch rosuvastati Yes [id number] 5mg Take 1 Univers n (CRESTOR) 5-26 tablet by ity of 5 mg tablet 00:00: mouth at [place] 00 bedtime. Medical Branch carvediloL Yes [id number] 12.5mg Take 1 Univers (COREG) 5-26 tablet by ity of 12.5 mg 00:00: mouth 2 [place] tablet 00 (two) Medical times Branch daily with meals. levothyroxi Yes [id number] 88ug Take 1 Univers ne 88 mcg 5-26 tablet by ity o f tablet 00:00: mouth [place] 00 every Medical morning. Branch 6AM lactobacill Yes [id number] 1{tbl} Take 1 Univers us 5-26 tablet by ity of acidophilus 00:00: mouth 2 [place] 25 million 00 (two) Medical cell -100 times Branch mg captab daily. hydrOXYchlo Yes [id number] 200mg Take 1 Univers roQUINE 5-26 tablet by ity of (PLAQUENIL) 00:00: mouth [place] 200 mg 00 daily. Medical tablet Branch rosuvastati Yes [id number] 5mg Take 1 Univers n (CRESTOR) 5-26 tablet by ity of 5 mg tablet 00:00: mouth at [place] 00 bedtime. Medical Branch carvediloL Yes [id number] 12.5mg Take 1 Univers (COREG) 5-26 tablet by ity of 12.5 mg 00:00: mouth 2 [place] tablet 00 (two) Medical times [place] daily with meals. levothyroxi Yes [id number] 88ug Take 1 Univers ne 88 mcg 5-26 tablet by ity o f tablet 00:00: mouth [place] 00 every Medical morning. Branch 6AM lactobacill Yes [id number] 1{tbl} Take 1 Univers us 5-26 tablet by ity of acidophilus 00:00: mouth 2 [place] 25 million 00 (two) Medical cell -100 times Branch mg captab daily. hydrOXYchlo Yes [id number] 200mg Take 1 Univers roQUINE 5-26 tablet by ity of (PLAQUENIL) 00:00: mouth [place] 200 mg 00 daily. Medical tablet Branch rosuvastati Yes [id number] 5mg Take 1 Univers n (CRESTOR) 5-26 tablet by ity of 5 mg tablet 00:00: mouth at [place] 00 bedtime. Medical Branch carvediloL Yes [id number] 12.5mg Take 1 Univers (COREG) 5-26 tablet by ity of 12.5 mg 00:00: mouth 2 [place] tablet 00 (two) Medical times [place] daily with meals. levothyroxi Yes [id number] 88ug Take 1 Univers ne 88 mcg 5-26 tablet by ity o f tablet 00:00: mouth [place] 00 every Medical morning. Branch 6AM lactobacill 2020- Yes [id number] 1{tbl} Take 1 Univers us 5-26 tablet by ity of acidophilus 00:00: mouth 2 [place] 25 million 00 (two) Medical cell -100 times Branch mg captab daily. furosemide 2020- No [id number] 20mg Take 1 Univers 20 mg 5-26 06-26 tablet by ity of tablet 00:00: 04:59 mouth [place] 00 :00 daily for Medical 30 days. Branch KCL 10 mEq 2020- No [id number] 20meq Take 2 Univers tablet 5-26 06-26 tablets by ity of 00:00: 04:59 mouth [place] 00 :00 daily for Medical 30 days. Branch furosemide 2020- No [id number] 20mg Take 1 Univers 20 mg 5-26 06-26 tablet by ity of tablet 00:00: 04:59 mouth [place] 00 :00 daily for Medical 30 days. Branch KCL 10 mEq 2020- No [id number] 20meq Take 2 Univers tablet 5-26 06-26 tablets by ity of 00:00: 04:59 mouth [place] 00 :00 daily for Medical 30 days. Branch vancomycin 2020- No [id number] Take 1 Univers 125 mg 5-26 06-20 capsule by ity of capsule 00:00: 04:59 mouth 4 [place] 00 :00 (four) Medical times Branch daily for 10 days, THEN 1 capsule 2 (two) times daily for 7 days, THEN 1 capsule daily for 7 days. vancomycin 2020- No [id number] Take 1 Univers 125 mg 5-26 06-20 capsule by ity of capsule 00:00: 04:59 mouth 4 [place] 00 :00 (four) Medical times Branch daily for 10 days, THEN 1 capsule 2 (two) times daily for 7 days, THEN 1 capsule daily for 7 days. KCL 2020- No 40meq 40 mEq, Univers (KLOR-CON 5-25 05-26 Oral, BID, ity of M20) tablet 01:15: 00:51 First dose [place] 40 mEq 00 :56 (after Medical last Branch modificati on) on Thu03/11/21 at 2015, Until Discontinu ed, Routine KCL 2020- No 40meq 40 mEq, Univers (KLOR-CON 03-11 Oral, ity of M20) tablet 20:45: 01:04 [...] 00 First dose Medical (HumaLOG) + on [facility] Branch Fsbg 03/09/21 at Testing 1200, Until Discontinu ed, Routine hydrOXYchlo Yes 200mg 200 mg, Un ignacia roQUINE 03-09 Oral, ity of (PLAQUENIL) 16:15: DAILY, [place] tablet 200 00 First dose Med ical mg on [facility] Branch 03/09/21 at 1115, Until Discontinu ed, Routine
Indicatio n: Rheumatic disorder predniSONE Yes 5mg 5 mg, Univer s (DELTASONE) 03-09 Oral, ity of tablet 5 mg 16:15: DAILY, [place] 00 First dose Medical on [facility] Branch 03/09/21 at 1115, Until Discontinu ed, Routine omeprazole 2020- No 20mg 20 mg, Univ ers (PRILOSEC) 03-09 Oral, ity of capsule 20 14:00: 20:28 DAILY, [place] mg 00 :14 First dose Medical on [facility] Branch 03/09/21 at 0900, Until Discontinu ed, Routine carvediloL Yes 12.5mg 12.5 mg, U nivers (COREG) 03-09 Oral, BID ity of tablet 12.5 13:00: MEALS, [place] mg 00 First dose Medical on [facility] 03/09/21 at 0800, Until Discontinu ed, Routine vancomycin 2020- No 125mg 125 mg, Un ignacia (VANCOCIN) 03-09 Oral, QID, it y of capsule 125 13:00: 21:36 56 doses, [place] mg 00 :50 First dose Medical on [facility] 03/09/21 at 0800, Last dose on Thu03/22/21 at 2000, Routine
Reason for Anti-Infec tive: Documented Infection< br>Documen roxanna Infection Site: Abdominal< br>Duratio n of Therapy: 14 days levothyroxi Yes 88ug 88 mcg, Uni vers ne 03-09 Oral, ity of (SYNTHROID) 11:00: QAM-0600, [place] tablet 88 00 First dose Medi eduar mcg on [facility] 03/09/21 at 0600, Until Discontinu ed, Routine rosuvastati Yes 5mg 5 mg, Unive rs n (CRESTOR) 03-09 Oral, QHS, it y of tablet 5 mg 02:00: First dose [place] 00 on Thu [facility] 03/08/21 at Branch 2100, Until Discontinu ed, Routine enoxaparin Yes 40mg 40 mg, Unive rs (LOVENOX) 03-08 Subcutaneo ity of injection 22:00: us, DAILY, [place] 40 mg 00 First dose Medical on [facility] 03/08/21 at 1700, Until Discontinu ed, Routine acetaminoph Yes 650mg 650 mg, Un ignacia en 03-08 Oral, ity of (TYLENOL) 19:47: Q6HPRN, [place] tablet 650 32 Starting Medic al mg [facility] 03/08/21 at 1447, Until Discontinu ed, Routine, [...] RTU 10 mEq 03/08/21 at [facility] 1330, 100 mL KCL 2020- No [...] 03/08/21 at 1315, Routine iohexol 2020- No [id number] 100mL 100 mL, Univers (OMNIPAQUE 03-08 Intravenou it y of 350 17:25: 17:25 s, ONCE, 1 [place] BULK-100 00 :00 dose, Fri Medica l mL) 03/08/21 at [place] injection 1245, 100 mL Routine olmesartan Yes 40mg Take 40 mg U nivers 40 mg 5-19 by mouth ity of tablet 19:02: daily. [address] Iron-Folic Yes Take by [facility] ers Acid-Mv, 5-19 mouth 2 ity of Min Cmb#15 19:02: (two) [place] (CENTRATEX) 37 times Medical 106 mg daily. [place] iron- 1 mg Cap olmesartan Yes 40mg Take 40 mg U nivers 40 mg 5-19 by mouth ity of tablet 19:02: daily. [address] Iron-Folic Yes Take by [facility] ers Acid-Mv, 5-19 mouth 2 ity of Min Cmb#15 19:02: (two) [place] (CENTRATEX) 37 times Medical 106 mg daily. Branch iron- 1 mg Cap olmesartan 0 Yes 40mg Take 40 mg U nivers 40 mg 5-19 by mouth ity of tablet 19:02: daily. [address] Iron-Folic 0 Yes Take by [facility] ers Acid-Mv, 5-19 mouth 2 ity of Min Cmb#15 19:02: (two) [place] (CENTRATEX) 37 times Medical 106 mg daily. Branch iron- 1 mg Cap levothyroxi Yes 88ug Take 88 Uni vers ne 88 mcg 5-19 mcg by ity of tablet 19:01: mouth [place] [address] [address] [place] [address] metFORMIN 0 Yes 500mg Take 500 Uni vers 500 mg 5-19 mg by ity of tablet 19:01: mouth 2 [place] [address] ([facility]) [facility] daily with meals. DULoxetine 0 Yes 30mg Take 30 mg U nivers 30 mg 5-19 by mouth ity of capsule 19:01: daily. [address] levothyroxi 0 Yes 88ug Take 88 Uni vers ne 88 mcg 5-19 mcg by ity of tablet 19:01: mouth [place] [address] [place] [address] metFORMIN 0 Yes 500mg Take 500 Uni vers 500 mg 5-19 mg by ity of tablet 19:01: mouth 2 [place] [address] ([facility]) [facility] daily with meals. DULoxetine 0 Yes 30mg Take 30 mg U nivers 30 mg 5-19 by mouth ity of capsule 19:01: daily. [address] levothyroxi 0 Yes 88ug Take 88 Uni vers ne 88 mcg 5-19 mcg by ity of tablet 19:01: mouth [place] [address] [place] [address] metFORMIN 2020-0 Yes 500mg Take 500 Uni vers 500 mg 5-19 mg by ity of tablet 19:01: mouth 2 [place] [address] ([facility] daily with meals. DULoxetine 2020-0 Yes 30mg Take 30 mg U nivers 30 mg 5-19 by mouth ity of capsule 19:01: daily. [place] 26 Medical Branch famciclovir 2020-0 Yes 1{tbl} Take 1 [facility] (FAMVIR 5-19 tablet by ity of ORAL) 19:00: mouth 3 [place] 16 (three) Medical times Branch daily. famciclovir 2020-0 Yes 1{tbl} Take 1 [facility] [place] (FAMVIR 5-19 tablet by ity of ORAL) 19:00: mouth 3 [place] 16 (three) Medical times Branch daily. famciclovir 2020-0 Yes 1{tbl} Take 1 [facility] [place] (FAMVIR 5-19 tablet by ity of ORAL) 19:00: mouth 3 [place] 16 (three) Medical times Branch daily. GABAPENTIN 2020-2020- No 100mg Take 100 U nivers ORAL 5-19 05-19 mg by ity of 18:59: 00:00 mouth 3 [place] 52 :00 (three) Medical times Branch daily. GABAPENTIN 2020-0 2020- No 100mg Take 100 U nivers ORAL 5-19 05-19 mg by ity of 18:59: 00:00 mouth 3 [place] 52 :00 (three) Medical times Branch daily. GABAPENTIN 2020-0 2020- No 100mg Take 100 U nivers ORAL 5-19 05-19 mg by ity of 18:59: 00:00 mouth 3 [place] 52 :00 (three) Medical times Branch daily. GABAPENTIN 2020-0 2020- No 100mg Take 100 U nivers ORAL 5-19 05-19 mg by ity of 18:59: 00:00 mouth 3 [place] 52 :00 (three) Medical times Branch daily. ofloxacin 2020- No 1[drp] Place 1 Un [facility] 0.3 % 5-19 05-19 Drop in ity of ophthalmic 18:59: 00:00 left eye 3 [place] solution 49 :00 (three) Medical times Branch daily. ofloxacin 2020-2020- No 1[drp] Place 1 Un [facility] 0.3 % 5-19 05-19 Drop in ity of ophthalmic 18:59: 00:00 left eye 3 [place] solution 49 :00 (three) Medical times Branch daily. ofloxacin 2020-2020- No 1[drp] Place 1 Un [facility] 0.3 % 5-19 05-19 Drop in ity of ophthalmic 18:59: 00:00 left eye 3 [place] solution 49 :00 (three) Medical times Branch daily. ofloxacin 2020-2020- No 1[drp] Place 1 Un [facility] 0.3 % 5-19 05-19 Drop in ity of ophthalmic 18:59: 00:00 left eye 3 [place] solution 49 :00 (three) Medical times Branch daily. hydrOXYchlo 2020-0 Yes 200mg Take 200 U nivers roQUINE [...] Medical times Branch daily with meals. hydrOXYchlo 2020-0 Yes 200mg Take 200 U nivers roQUINE [...] Medical times Branch daily with meals. hydrOXYchlo 2020-0 Yes 200mg Take 200 U nivers roQUINE [...] times Branch daily with meals. furosemide Yes [id number] 40mg Take 1 [facility] 40 mg 5-19 tablet by ity of tablet 00:00: mouth [place] 00 daily. Medical Branch furosemide Yes [id number] 40mg Take 1 [facility] 40 mg 5-19 tablet by ity of tablet 00:00: mouth [place] 00 daily. Medical Branch furosemide Yes [id number] 40mg Take 1 Univers 40 mg 5-19 tablet by ity of tablet 00:00: mouth [place] 00 daily. Medical Branch KCL 20 mEq 2020- No [id number] 20meq Take 1 Univers tablet 5-19 06-19 tablet by ity of 00:00: 04:59 mouth [place] 00 :00 daily for Medical 30 days. Branch KCL 20 mEq 2020- No [id number] 20meq Take 1 Univers tablet 5-19 06-19 tablet by ity of 00:00: 04:59 mouth [place] 00 :00 daily for Medical 30 days. Branch KCL 20 mEq 2020- No [id number] 20meq Take 1 Univers tablet 5-19 06-19 tablet by ity of 00:00: 04:59 mouth [place] 00 :00 daily for Medical 30 days. Branch furosemide 2020- No [id number] 40mg Take 1 Univers 40 mg 5-19 05-26 tablet by ity of tablet 00:00: 00:00 mouth [place] 00 :00 daily. Medical Branch KCL 20 mEq 2020- No [id number] 20meq Take 1 Univers tablet 5-19 05-26 tablet by ity of 00:00: 00:00 mouth [place] 00 :00 daily for Medical 30 days. Branch famciclovir 2021-0 Yes 1{tbl} Take 1 [facility] (FAMVIR 5-07 tablet by ity of ORAL) 22:16: mouth 3 [place] 54 (three) Medical times Branch daily. GABAPENTIN 2020-0 Yes 100mg Take 100 Un [place] ORAL 5-07 mg by ity of 22:16: mouth 3 [place] 54 (three) Medical times Branch daily. hydrOXYchlo 2020-0 Yes 200mg Take 200 U nivers roQUINE 5-07 mg by ity of (PLAQUENIL) 22:16: mouth [place] 200 mg 54 daily. Medical tablet Branch Levothyroxi 2020-0 Yes 100ug Take 100 U nivers ne 100 mcg 5-07 mcg by ity of capsule 22:16: mouth [place] 54 daily. 6AM Medical Branch ofloxacin 2020-0 Yes 1[drp] Place 1 Uni vers 0.3 % 5-07 Drop in ity of ophthalmic 22:16: left eye 3 [place] solution 54 (three) Medical times Branch daily. omeprazole 2020-0 Yes 25mg Take 25 mg U nivers 20 mg 5-07 by mouth ity of capsule 22:16: daily. [place] 54 Medical Branch rosuvastati 2020-0 Yes 5mg Take 5 mg U nivers n (CRESTOR) 5-07 by mouth ity of 5 mg tablet 22:16: at [place] 54 bedtime. Medical Branch carvediloL 2020-0 Yes 12.5mg Take 12.5 Univers (COREG) 5-07 mg by ity of 12.5 mg 22:16: mouth 2 [place] tablet 54 (two) Medical times Branch daily with meals. famciclovir 2020-0 Yes 1{tbl} Take 1 Un [...] mg 54 daily. Medical tablet Branch Levothyroxi 2020-0 Yes 100ug Take 100 U nivers ne [...] by mouth ity of capsule 22:16: daily. [place] [address] Medical Branch rosuvastati 0 Yes 5mg Take 5 mg U nivers n (CRESTOR) 5-07 by mouth ity of 5 mg tablet 22:16: at [place] [address] bedtime. Medical Branch carvediloL 0 Yes 12.5mg [...] 54 (three) Medical times Branch daily. omeprazole 2020-0 Yes 25mg Take 25 mg U nivers 20 mg 5-07 by mouth ity of capsule 22:16: daily. [place] [address] Medical Branch rosuvastati 0 Yes 5mg Take 5 mg U nivers n (CRESTOR) 5-07 by mouth ity of 5 mg tablet 22:16: at [place] [address] bedtime. Medical Branch carvediloL 2021-0 Yes 12.5mg Take 12.5 Univers (COREG) 5-07 mg by ity of 12.5 mg 22:16: mouth 2 [place] tablet 54 (two) Medical times Branch daily with meals. metFORMIN 2020- No 500mg Take 500 Un [place] 500 mg 5 05-07 mg by ity of tablet 20:47: 00:00 mouth 2 [place] 14 :00 (two) Medical times Branch daily with meals. olmesartan 2020- No 40mg Take 40 mg Univers 40 mg 02-22-07 by mouth ity of tablet 20:47: 00:00 daily. [place] 14 :00 OLMESARTAN Medical MEDOXOMIL Branch predniSONE 2020- No 20mg Take 20 mg Univers 20 mg 02-22-07 by mouth ity of tablet 20:47: 00:00 daily. 3 [place] 14 :00 TABS DAILY Medical FOR 3 Branch DAYS, THEN 2 TABLETS BY MOUTH FOR 3 DAYS LAST TAKEN 5.2.21 sulfur 2020- No [id number] 5mL 5 mL, Un [facility] hexafluorid 02-22- 9109 Intravenou i ty of e microsphr 18:15: 18:15 s, ONCE, 1 [place] (LUMASON) 00 :00 dose, Fri Medic al injection 5 02/22/21 at [facility] mL 1315, Routine
service member approving Restricted medication : KERA CH Sliding Yes Subcutaneo Univ ers Scale 5-07 us, TID ity of Insulin - 03:30: MEALS+HS, Aniceto as Lispro 00 First dose Medical (HumaLOG) + on [place] Branch Fsbg 02/21/21 at Testing 2230, Until Discontinu ed, Routine prednisoLON Yes [id number] 1[drp] Place 1 Univers E acetate 1 5-07 Drop in ity o f % 00:00: left eye 4 [place] ophthalmic 00 (four) Medical suspension times Branch drops daily. prednisoLON Yes [id number] 1[drp] Place 1 Univers E acetate 1 5-07 Drop in ity o f % 00:00: left eye 4 [place] ophthalmic 00 (four) Medical suspension times Branch drops daily. lactobacill 2020- No [id number] 1{tbl} Take 1 Univers us 5-07 06-07 tablet by ity of acidophilus 00:00: 04:59 mouth 2 [place] 25 million 00 :00 (two) Medical cell -100 times Branch mg captab daily for 30 days. lactobacill 2020- No [id number] 1{tbl} Take 1 Univers us 5-07 06-07 tablet by ity of acidophilus 00:00: 04:59 mouth 2 [place] 25 million 00 :00 (two) Medical cell -100 times Branch mg captab daily for 30 days. lactobacill 2020- No [id number] 1{tbl} Take 1 Univers us 5-07 06-07 tablet by ity of acidophilus 00:00: 04:59 mouth 2 [place] 25 million 00 :00 (two) Medical cell -100 times Branch mg captab daily for 30 days. lactobacill 2020- No [id number] 1{tbl} Take 1 Univers us 5-07 06-07 tablet by ity of acidophilus 00:00: 04:59 mouth 2 [place] 25 million 00 :00 (two) Medical cell -100 times Branch mg captab daily for 30 days. lactobacill 2020- No [id number] 1{tbl} Take 1 Univers us 5-07 06-07 tablet by ity of acidophilus 00:00: 04:59 mouth 2 [place] 25 million 00 :00 (two) Medical cell -100 times Branch mg captab daily for 30 days. lactobacill 2020- No [id number] 1{tbl} Take 1 Univers us 5-07 06-07 tablet by ity of acidophilus 00:00: 04:59 mouth 2 [place] 25 million 00 :00 (two) Medical cell -100 times Branch mg captab daily for 30 days. lactobacill 2020- No [id number] 1{tbl} Take 1 Univers us 5-07 05-26 tablet by ity of acidophilus 00:00: 00:00 mouth 2 [place] 25 million 00 :00 (two) Medical cell -100 times Branch mg captab daily for 30 days. lactobacill 2020- No [id number] 1{tbl} Take 1 Univers us 5-07 05-26 tablet by ity of acidophilus 00:00: 00:00 mouth 2 [place] 25 million 00 :00 (two) Medical cell -100 times Branch mg captab daily for 30 days. lactobacill 2020- No [id number] 1{tbl} Take 1 Univers us 02-22 05-26 tablet by ity of acidophilus 00:00: 00:00 mouth 2 [place] 25 million 00 :00 (two) Medical cell -100 times Branch mg captab daily for 30 days. prednisoLON 2020- No [id number] 1[drp] Place 1 Univers E acetate 1 02-22-19 Drop in ity of % 00:00: 00:00 left eye 4 [place] ophthalmic 00 :00 (four) Medical suspension times Branch drops daily. prednisoLON 2020- No [id number] 1[drp] Place 1 Univers E acetate 1 02-22-19 Drop in ity of % 00:00: 00:00 left eye 4 [place] ophthalmic 00 :00 (four) Medical suspension times Branch drops daily. prednisoLON 2020- No [id number] 1[drp] Place 1 Univers E acetate 1 02-22-19 Drop in ity of % 00:00: 00:00 left eye 4 [place] ophthalmic 00 :00 (four) Medical suspension times Branch drops daily. prednisoLON 2020- No [id number] 1[drp] Place 1 Univers E acetate 1 02-22-19 Drop in ity of % 00:00: 00:00 left eye 4 [place] ophthalmic 00 :00 (four) Medical suspension times Branch drops daily. levoFLOXaci 2020- No [id number] 500mg Take 1 Univers n 500 mg 02-22 05-10 tablet by ity o f tablet 00:00: 04:59 mouth [place] 00 :00 every 24 Medical (twenty- Branch ur) hours for 2 days. KCL Yes 20meq 20 mEq, Univers (KLOR-CON 5-06 Oral, ity of M20) tablet 14:00: DAILY, [place] 20 mEq 00 First dose Medical on [facility] Branch 02/21/21 at 0900, Until Discontinu ed, Routine omeprazole 2021-0 Yes 20mg 20 mg, Unive rs (PRILOSEC) 02-21 Oral, ity of capsule 20 14:00: DAILY, [place] mg 00 First dose Medical on [facility] Branch 02/21/21 at 0900, Until Discontinu ed, Routine hydrOXYchlo Yes 200mg 200 mg, Un [place] roQUINE 02-21 Oral, ity of (PLAQUENIL) 14:00: DAILY, [place] tablet 200 00 First dose Med ical mg on [facility] Branch 02/21/21 at 0900, Until Discontinu ed, Routine
Indicatio n: Rheumatic disorder enoxaparin Yes 30mg 30 mg, Unive rs (LOVENOX) 02-21 Subcutaneo ity of injection 14:00: us, DAILY, [place] 30 mg 00 First dose Medical on [facility] 02/21/21 at 0900, Until Discontinu ed, Routine levothyroxi Yes 100ug 100 mcg, U nivers ne 02-21 Oral, ity of (SYNTHROID) 11:00: QAM-0600, [place] tablet 100 00 First dose Med ical mcg on [facility] Branch 02/21/21 at 0600, Until Discontinu ed iohexol 2020- No [id number] 120mL 120 mL, U omar (OMNIPAQUE 02-21 Intravenou it y of 350 09:15: 09:15 s, ONCE, 1 [place] BULK-150 00 :00 dose, [place] Medica l mL) 02/21/21 at Branch injection 0415, 120 mL Routine NaCl 0.9% 2020- No 500mL at 999 Univ ers (NS) bolus 02-21 mL/hr, 500 it y of infusion 07:30: 06:35 mL, IV [place] 500 mL 00 :00 Piggyback, Medical ONCE, 1 Branch dose, [facility] 02/21/21 at 0230, STAT methylpredn 2020- No 60mg 60 mg, Uni vers isolone sod 02-21 Slow IV ity of succ 07:30: 06:26 Push, ONCE [place] (SOLU-MEDRO 00 :00 NOW, 1 Medica l L) dose, [place] Branch injection 02/21/21 at 60 mg 0230, KIRSTY KCL 2020- No IV Univers (POTASSIUM 02-21 05-06 Infusion, ity of CHLORIDE) 07:15: 12:13 CONTINUOUS [place] 20 mEq in 00 :19 , Starting Medi eduar D5W 0.9% [place] 02/21/21 Branc h NaCl (NS) at 0215, 1,000 mL IV Until [place] Solution 02/21/21 at 0713, 1,000 mL, at 125 mL/hr haloperidol 2020- No 5mg 5 mg, Slow Univers lactate 02-21 05-06 IV Push, ity of (HALDOL) 07:15: 06:13 [...] mL mg/kg Branch IV infusion ?47.8 kg [place] weight), IV Infusion, Q8H ABX, First dose on [place] 02/21/21 at 0145, Until Discontinu ed, 100 mL
Rest ricted use approved by: [employer] PROVIDER NaCl 0.9% 2020- No 1000mL at 125 Uni vers (NS) IV 506 05-06 mL/hr, IV ity of infusion 06:45: 06:14 Infusion, Aniceto as 1,000 mL 00 :40 CONTINUOUS Medic al , Starting Branch [place] 02/21/21 at 0145, Until [place] 02/21/21 at 0114, Routine morpHINE 2020- No 2mg 2 mg, Slow Un ignacia injection 2 5 05-06 IV Push, ity of mg 06:45: 05:40 ONCE, 1 [place] 00 :00 dose, [place] Medical 02/21/21 at [...] cefTRIAXone Yes 1000mg 1,000 mg, Univers (ROCEPHIN) 506 IV ity of 1,000 mg in 06:30: Piggyback, [place] NaCl 0.9% 00 Q12H ABX, Medic al (NS) 50 mL First dose Bra [facility] MINI-BAG on [place] 02/21/21 at 0130, Until Discontinu ed, 50 mL
R gallo for Anti-Infec tive: Empiric Therapy for Suspected Infection< br>Empiric Therapy Site: Urine
D uration of therapy: 7 days haloperidol Yes 5mg 5 mg, Slow Univers lactate 02-21 IV Push, ity of (HALDOL) 06:29: QPMPRN, [place] injection 5 35 Starting Medi eduar mg [facility] 02/21/21 Branch at 0129, Until Discontinu ed, Routine, insomnia, agitation FENTanyl PF Yes 50ug 50 mcg, Uni vers (SUBLIMAZE 02-21 Slow IV ity of (PF)) 06:23: Push, [place] injection 10 TIDPRN, Medical 50 mcg Starting Branch [place] 02/21/21 at 0123, Until Discontinu ed, Routine, Pain (scale 7-10) traMADoL Yes 50mg 50 mg, Univers (ULTRAM) 506 Oral, ity of tablet 50 06:22: Q8HPRN, [...] injection 37 Starting Medica l 25 mL [facility] 02/21/21 Branch at 0107, Until Discontinu ed, KIRSTY, Blood Glucose < or = 70 mg/dL and patient is unable to swallow or has mental status changes. predniSONE Yes 10mg 10 mg, Unive rs (DELTASONE) 5-06 Oral, ity of tablet 10 05:45: DAILY, [place] mg 00 First dose Medical on [facility] 02/21/21 at 0045, Until Discontinu ed, Routine moxifloxaci Yes 1[drp] 1 Drop, U nivers n (VIGAMOX) 02-21 Left Eye, ity of 0.5 % 05:45: TID, First [place] ophthalmic 00 dose on Medica l drops 1 [facility] 02/21/21 Branch Drop at 0045, Until Discontinu ed gabapentin Yes 200mg 200 mg, Uni vers (NEURONTIN) 02-21 Oral, TID, it y of capsule 200 05:45: First dose [place] mg 00 on [facility] 02/21/21 at Branch 0045, Until Discontinu ed, Routine carvediloL Yes 12.5mg 12.5 mg, U nivers (COREG) 5-06 Oral, BID ity of tablet 12.5 05:45: MEALS, [place] mg 00 First dose Medical on [facility] 02/21/21 at 0045, Until Discontinu ed, Routine meclizine Yes 25mg 25 mg, Univer s (TRAVEL-EAS 5- Oral, BID, it y of E 05:45: First dose [place] (MECLIZINE) 00 on [facility] Medica l ) tablet 25 02/21/21 at [facility] mg 0045, Until Discontinu ed, Routine lactobacill 2020-0 Yes 1{tbl} 1 tablet, Univers us - Oral, BID, ity of acidophilus 05:30: First [...] injection 4 41 Starting Medi eduar mg [place] 02/21/21 Branch at 0006, Until Discontinu ed, Routine, Nausea and Vomiting (N/V) FENTanyl PF 2020- No 25ug 25 mcg, Un ignacia (SUBLIMAZE 5-05 05-05 Slow IV ity o f (PF)) 23:45: 23:05 Push, [place] injection 00 :00 ONCE, 1 Medical 25 mcg dose, Wed [place] 02/20/21 at 1845, STAT ondansetron 2020- No 4mg 4 mg, Slow Univers (ZOFRAN 5-05 05-05 IV Push, ity of (PF)) 22:15: 21:15 ONCE, 1 [place] injection 4 00 :00 dose, Wed Med ical mg 02/20/21 at Branch 1715, KIRSTY NaCl 0.9% 2020- No 500mL at 999 Univ ers (NS) bolus 505 05-05 mL/hr, 500 it y of infusion 22:15: 21:15 mL, IV [place] 500 mL 00 :00 Infusion, Medical ONCE, 1 Branch dose, 02/20/21 at 1715, STAT FENTanyl PF 2020- No 50ug 50 mcg, Un [facility] (SUBLIMAZE 5-05 05-05 Slow IV ity o f (PF)) 21:45: 20:36 Push, [place] injection 00 :00 ONCE, 1 Medical 50 mcg dose, Wed [place] 02/20/21 at 1645, STAT predniSONE 2020-0 Yes 6mg QD Take 6 mg [facility] [...] 40 MG 16:50: daily. Medical tablet 20 [facility] leflunomide Yes 10mg QD Take [address] (ARAVA) 10 2-11 by mouth [facility] tablet 16:50: daily. Medica l [address] [place] [address] rosuvastati Yes 5mg QD Take [address] [facility] (CRESTOR) 2-11 by mouth [facility] 5 MG tablet 16:50: daily. [facility] omeprazole Yes 20mg QD Take [address] (PriLOSEC) 2-11 by mouth [facility] 20 MG 16:50: daily. Medical capsule 20 [facility] cyanocobala Yes 100ug QD Take [address] min, 2-11 mcg by [facility] vitamin 16:50: mouth Medical B-12, 100 20 daily. Center MCG tablet ferrous Yes 325mg Take 325 [facility] sulfate 325 2-11 mg by [facility] (65 FE) MG 16:50: mouth Medica l tablet 20 daily with Center breakfast. hydroxychlo Yes Q.5D Take by [facility] [...] MG tablet 16:50: daily. Medi eduar 20 [facility] omeprazole Yes 20mg QD Take [address] (PriLOSEC) 2-11 by mouth [facility] 20 MG 16:50: daily. Medical capsule 20 Center cyanocobala Yes 100ug QD Take 100 C [...] MG tablet 16:50: daily. Medica l 20 [facility] rosuvastati Yes 5mg QD Take [address] n (CRESTOR) 2-11 by mouth Luke [facility] 5 MG tablet 16:50: daily. [address] omeprazole Yes 20mg QD Take [address] (PriLOSEC) 2-11 by mouth [facility] 20 MG 16:50: daily. Medical capsule 20 [facility] cyanocobala Yes 100ug QD Take 100 C [...] Luke s 1 MG tablet 16:50: daily. [address] levothyroxi Yes 88ug QD Take 88 [...] MG tablet 16:50: daily. Medica l 20 [facility] rosuvastati Yes 5mg QD Take [address] n (CRESTOR) 2-11 by mouth [place] [facility] 5 MG tablet 16:50: daily. [facility] 20 [place] omeprazole Yes 20mg QD Take [address] (PriLOSEC) 2-11 by mouth [facility] 20 MG 16:50: daily. Medical capsule 20 [place] cyanocobala Yes 100ug QD Take 100 C [...] Luke s 1 MG tablet 16:50: daily. [facility] 20 [facility] levothyroxi Yes 88ug QD Take [address] ne 2-11 mcg by [facility] (SYNTHROID, 16:50: mouth Medic al LEVOTHROID) 20 daily . Cente r 88 MCG tablet spironolact 2020- No 25mg QD Take [address] one 2-05 20-08 by mouth [facility] (ALDACTONE) 11:57: 00:00 daily. Med ical 25 MG 49 :00 Center tablet estradiol 2020- No .5mg QD Take 0.[address] (ESTRACE) 2- 02-08 mg by [facility] 0.5 MG 11:56: 00:00 mouth Medical tablet 09 :00 daily. Center hydrOXYchlo 2020-0 Yes QD Take by Met hodi roQUINE 1-[address] (PLAQUENIL) 12:21: daily. [facility] 200 mg 38 l tablet hydrOXYchlo 2020-0 Yes QD Take by Met hodi roQUINE 1-[address] (PLAQUENIL) 12:21: daily. [facility] 200 mg 38 l tablet hydrOXYchlo 2020-0 Yes QD Take by Met hodi roQUINE 1-[address] (PLAQUENIL) 12:21: daily. [facility] 200 mg 38 l tablet hydrOXYchlo 2020-0 Yes QD Take by Met hodi roQUINE 1-[address] (PLAQUENIL) 12:21: daily. [facility] 200 mg 38 l tablet hydrOXYchlo 2020-0 Yes QD Take by Met hodi roQUINE [...] Hospita capsule 57 l traMADoL 2019-10 Yes [id number] 50mg Q6H Take 50 mg Me thodi [...] Hospita capsule 57 l traMADoL 2019-10 Yes [id number] 50mg Q6H Take 50 mg Me thodi [...] Hospita capsule 57 l traMADoL 2019-10 Yes [id number] 50mg Q6H Take 50 mg Me thodi [...] Hospita capsule 57 l traMADoL 2019-10 Yes [id number] 50mg Q6H Take 50 mg Me thodi [...] Hospita capsule 57 l traMADoL 2019-10 Yes [id number] 50mg Q6H Take 50 mg Me thodi [...] kg 12:20:00 Systolic blood 2021-03-13 119 mm[Hg] [facility] 17:00:00 [facility] Diastolic blood 2021-03-13 66 mm[Hg] University o f pressure 17:00:00 [facility] Heart rate 2021-03-13 89 /min University of 17:00:00 [facility] Body temperature 2021-03-13 36.11 [place] University of 17:00:00 [facility] Respiratory rate 2021-03-13 18 /min University of 17:00:00 [facility] Oxygen saturation 2021-03-13 99 /min University of in Arterial blood 17:00:00 [facility] eduar by Pulse oximetry Branch Body weight 2021-03-13 56.7 kg University of 09:57:00 [facility] BMI 2021-03-13 23.62 kg/m2 University of 09:57:00 [facility] Body height 2021-03-08 154.9 cm University of 20:15:00 [facility] Systolic blood 2021-03-06 120 mm[Hg] University of pressure 19:03:00 [facility] Diastolic blood 2021-03-06 72 mm[Hg] University o f pressure 19:03:00 [facility] Heart rate 2021-03-06 79 /min University of 19:03:00 [facility] Respiratory rate 2021-03-06 19 /min University of 19:03:00 [facility] Body height 2021-03-06 152.4 cm University of 19:03:00 [facility] Body weight 2021-03-06 57.471 kg University of 19:03:00 [facility] BMI 2021-03-06 24.74 kg/m2 University of 19:03:00 [facility] Oxygen saturation 2021-03-06 96 /min Union of in Arterial blood 19:03:00 [facility] by Pulse oximetry Branch Body height 2021-03-05 152.4 cm University of 20:14:00 [facility] Body weight 2021-03-05 57.749 kg University of 20:14:00 [facility] BMI 2021-03-05 24.86 kg/m2 University of 20:14:00 [facility] Systolic blood 2021-02-22 139 mm[Hg] University of pressure 16:00:00 [facility] Diastolic blood 2021-02-22 64 mm[Hg] University o f pressure 16:00:00 [facility] Heart rate 2021-02-22 77 /min University of 16:00:00 [facility] Body temperature 2021-02-22 35.83 [place] University of 16:00:00 [facility] Respiratory rate 2021-02-22 18 /min University of 16:00:00 [facility] Oxygen saturation 2021-02-22 95 /min [facility] in Arterial blood 16:00:00 [facility] eduar by Pulse oximetry [place] Body weight 2021-02-22 60.963 kg University of 08:01:00 [facility] BMI 2021-02-22 25.39 kg/m2 University of 08:01:00 [facility] Body height 2021-02-21 154.9 cm University 01:11:00 [facility] HEIGHT 2020-11-29 156.2 cm 11:27:00 WEIGHT 2020-11-29 60.555 kg 11:27:00 HEIGHT 2020-11-26 156.2 cm 12:20:00 WEIGHT 2020-11-26 66.225 kg 12:20:00 Body height 2022-06-24 154.9 cm [facility] 18:02:00 [facility] Body weight 2022-06-24 66.225 kg [facility] 18:02:00 [facility] BMI 2022-06-24 27.59 kg/m2 [facility] 18:02:00 [facility] Systolic blood 2021-09-20 176 mm[Hg] notified University of pressure 15:52:00 SHARLENE Flynn [facility] Diastolic blood 2021-09-20 83 mm[Hg] notified University o f pressure 15:52:00 SHARLENE Flynn [facility] Heart rate 2021-09-20 67 /min University of 15:52:00 [facility] Body temperature 2021-09-20 36.61 [place] University of 15:52:00 [facility] Respiratory rate 2021-09-20 18 /min University of 15:51:17 [facility] Body weight 2021-09-20 65.9 kg University of 15:51:17 [facility] BMI 2021-09-20 29.88 kg/m2 [facility] 15:51:17 [facility] Oxygen saturation 2021-08-23 96 /min [facility] in Arterial blood 16:23:09 Radha DELANEY by Pulse oximetry [facility] [place] Systolic blood 2020-11-29 162 mm[Hg] PER [facility] pressure 15:17:00 DR.GUITTEREZ JEAN [facility] er Diastolic blood 2020-11-29 70 mm[Hg] PER [facility] pressure 15:17:00 DR.GUITTEREZ JEAN [facility] er Heart rate 2020-11-29 62 /min [facility] 15:17:00 [facility] Center Body temperature 2020-11-29 36.44 Blanca [facility] 15:17[facility]00 [facility] Respiratory rate 2020-11-29 16 /min [facility] 15:17:00 [facility] Oxygen saturation 2020-11-29 95 /min [facility] Javed es in Arterial blood 15:17:00 Medical nter by Pulse oximetry Body height 2020-11-29 156.2 cm [facility] 11:27:00 [facility] Body weight 2020-11-29 60.555 kg [facility] 11:27:00 [facility] BMI 2020-11-29 24.82 kg/m2 [facility] 11:27:00 [facility] Procedures Procedure Date / Time Performing Clinician Source Performed INSURANCE CORRESPONDENCE 2022-09-09 06:01:00 Doctor Unassigned, [facility] XR SHOULDERS BILATERAL 2022-06-24 18:10:54 Lawanda Bocanegra Donavon [facility] PATHOLOGY BIOPSY 2021-09-20 16:18:00 Ashley Adkins [facility] INTERPRETATION MD Carey [facility] er Center POCT GLUCOSE (AUTOMATED) 2021-03-13 17:02:00 Daniel Paul [facility] POCT GLUCOSE (AUTOMATED) 2021-03-13 13:32:00 Daniel Paul [facility] POCT GLUCOSE (AUTOMATED) 2021-03-13 01:28:00 Daniel Paul [facility] POCT GLUCOSE (AUTOMATED) 2021-03-12 20:56:00 Daniel Paul [facility] BASIC METABOLIC PANEL 2021-03-12 18:44:00 Daniel Paul [facility] (NA, K, CL, CO2, GLUCOSE, Medica l Branch BUN, CREATININE, CA) N-TERMINAL PRO-BNP 2021-03-12 18:44:00 Kera Ch [facility] POCT GLUCOSE (AUTOMATED) 2021-03-12 16:05:00 Daniel Paul Miryam [facility] POCT GLUCOSE (AUTOMATED) 2021-03-12 12:15:00 Daniel Paul Miryam [facility] POCT GLUCOSE (AUTOMATED) 2021-03-12 01:26:00 Daniel Paul Miryam [facility] POCT GLUCOSE (AUTOMATED) 2021-03-11 21:06:00 Daniel Paul Miryam [facility] POCT GLUCOSE (AUTOMATED) 2021-03-11 16:00:00 Daniel Paul [facility] BASIC METABOLIC PANEL 2021-03-11 15:05:00 Jordan Will [facility] (NA, K, CL, CO2, GLUCOSE, Medica l Branch BUN, CREATININE, CA) POCT GLUCOSE (AUTOMATED) 2021-03-11 12:35:00 Daniel Paul Miryam [facility] POCT GLUCOSE (AUTOMATED) 2021-03-11 01:33:00 Daniel Paul Miryam [facility] POCT GLUCOSE (AUTOMATED) 2021-03-10 20:49:00 Daniel Paul Miryam [facility] POCT GLUCOSE (AUTOMATED) 2021-03-10 16:30:00 Daniel Paul Miryam [facility] POCT GLUCOSE (AUTOMATED) 2021-03-10 12:56:00 Daniel Paul [facility] MAGNESIUM 2021-03-10 10:12:00 Tyron Stringer [facility] TROPONIN I 2021-03-10 10:12:00 Siomara [facility] BASIC METABOLIC PANEL 2021-03-10 10:12:00 Tyron Stringer [facility] (NA, K, CL, CO2, GLUCOSE, Medica l Branch BUN, CREATININE, CA) N-TERMINAL PRO-BNP 2021-03-10 10:12:00 Tyron Stringer [facility] HB ECG ROUTINE & RHYTHM 2021-03-10 10:08:12 Tyron Stringer [facility] POCT GLUCOSE (AUTOMATED) 2021-03-10 01:53:00 Daniel Paul [facility] POCT GLUCOSE (AUTOMATED) 2021-03-09 21:41:00 Daniel Paul [facility] POCT GLUCOSE (AUTOMATED) 2021-03-09 16:59:00 Daniel Paul [facility] POCT GLUCOSE (AUTOMATED) 2021-03-09 13:45:00 Daniel Paul [facility] BASIC METABOLIC PANEL 2021-03-09 08:44:00 Daniel Paul [facility] (NA, K, CL, CO2, GLUCOSE, Medica l Branch BUN, CREATININE, CA) CBC WITH DIFF 2021-03-09 08:44:00 Daniel Paul [facility] D-DIMER 2021-03-09 01:19:00 Jordan Will Megan [facility] CLOSTRIDIUM DIFFICILE 2021-03-09 01:19:00 Prabhakar Childs [facility] FECAL PATHOGENS BY PCR 2021-03-09 01:19:00 Prabhakar Childs [facility] XR CHEST 1 VW 2021-03-09 00:05:00 Jordan Will [facility] URINALYSIS 2021-03-08 18:40:00 Mina Wu [facility] URINE CULTURE 2021-03-08 18:40:00 Mina Wu [facility] COVID-19 (ID NOW RAPID 2021-03-08 18:24:00 Mina Wu U [facility] TESTING) Medical Branch LAB ONLY COVID 2021-03-08 18:24:00 Mina Wu [facility] INTERPRETATION [facility] CT ABDOMEN PELVIS W 2021-03-08 17:34:31 Mina Wu [facility] CONTRAST [facility] CT CHEST PULMONARY 2021-03-08 17:34:[address] [facility] ANGIOGRAM [facility] FREE T4 2021-03-08 17:01:00 Singer [facility] HB ECG ROUTINE & RHYTHM 2021-03-08 16:30:28 Singer [facility] STRIP [facility] LIPASE 2021-03-08 16:22:00 Singer [facility] TROPONIN I 2021-03-08 16:22:00 Singer [facility] THYROID STIMULATING 2021-03-08 16:22:00 Mina Wu [facility] HORMONE [facility] COMP. METABOLIC PANEL 2021-03-08 16:22:00 Singer [facility] ([id number]) [facility] CBC WITH DIFF 2021-03-08 16:22:00 Singer [facility] PROTHROMBIN TIME / INR 2021-03-08 16:22:[address] [facility] ACTIVATED PARTIAL 2021-03-08 16:22:00 Singer [facility] THRMPLAS YASMIN [facility] N-TERMINAL PRO-BNP 2021-03-08 16:22:00 Mina Wu [facility] HOSPITAL ADMISSION 2021-03-08 05:01:00 Doctor Unassigned, [facility] [place] [facility] CAROTID DUPLEX BILATERAL 2021-02-22 20:19:16 Kera Ch [facility] - BY VASCULAR LAB [facility] POCT GLUCOSE (AUTOMATED) 2021-02-22 16:00:00 Tyron Stringer [facility] POCT GLUCOSE (AUTOMATED) 2021-02-22 12:52:00 Tyron Stringer [facility] URIC ACID 2021-02-22 09:49:00 Tyron Stringer [facility] MAGNESIUM 2021-02-22 09:49:00 Tyron Stringer [facility] COMP. METABOLIC PANEL 2021-02-22 09:49:00 Tyron Stringer [facility] ([id number]) [facility] CBC WITH DIFF 2021-02-22 09:49:00 Tyron Stringer [facility] N-TERMINAL PRO-BNP 2021-02-22 09:49:00 Tyron Stringer [facility] POCT GLUCOSE (AUTOMATED) 2021-02-22 02:15:00 Tyron Stringer [facility] POCT GLUCOSE (AUTOMATED) 2021-02-21 21:16:00 Tyron Stringer [facility] POCT GLUCOSE (AUTOMATED) 2021-02-21 16:34:00 Tyron Stringer [facility] POCT GLUCOSE (AUTOMATED) 2021-02-21 13:03:00 Tyron Stringer [facility] OSMOLALITY URINE 2021-02-21 11:03:00 Siomara [facility] LEGIONELLA URINARY 2021-02-21 11:03:00 Tyron Stringer [facility] ANTIGEN TST [facility] URINE CULTURE 2021-02-21 11:03:00 Siomara ned [facility] URIC ACID 2021-02-21 09:10:00 Siomara ned [facility] MAGNESIUM 2021-02-21 09:10:00 Siomara ned [facility] OSMOLALITY, SERUM OR 2021-02-21 09:10:00 Tyron Stringer [facility] PLASMA [facility] TROPONIN I 2021-02-21 09:10:00 Siomara ned [facility] COMP. METABOLIC PANEL 2021-02-21 09:10:00 Tyron Stringer [facility] ([id number]) [facility] SEDIMENTATION RATE 2021-02-21 09:10:00 Siomara ned [facility] CBC WITH DIFF 2021-02-21 09:10:00 Siomara ned [facility] N-TERMINAL PRO-BNP 2021-02-21 09:10:00 Tyron Stringer [facility] CT ABDOMEN PELVIS W 2021-02-21 09:06:17 Tyron Stringer [facility] CONTRAST [facility] XR SHOULDER 2+ VW RIGHT 2021-02-21 09:05:04 Tyron Stringer [facility] CT HEAD WO CONTRAST 2021-02-21 09:04:43 Tyron Stringer [facility] POCT GLUCOSE (AUTOMATED) 2021-02-21 07:42:00 Tyron Stringer [facility] VITAMIN B12, LEVEL 2021-02-21 05:53:00 Tyron Stringer [facility] TROPONIN I 2021-02-21 05:53:00 Tyron Stringer [facility] IRON PANEL 2021-02-21 05:53:00 Siomara ned [facility] PROTHROMBIN TIME / INR 2021-02-21 05:53:00 Tyron Stringer [facility] VITAMIN D, 25-OH 2021-02-21 05:53:00 Siomara [facility] PROCALCITONIN 2021-02-21 05:53:00 Siomara ned [facility] POCT GLUCOSE (AUTOMATED) 2021-02-21 05:52:00 Prabhakar Childs [facility] XR FOREARM 2 VW RIGHT 2021-02-20 22:57:20 Jordan Kumari [facility] XR HUMERUS 2 VW RIGHT 2021-02-20 22:57:20 Jordan Kumari [facility] HB ECG ROUTINE & RHYTHM 2021-02-20 22:38:40 Jordan Kumari [facility] URINALYSIS 2021-02-20 22:10:00 Jordan Kumari [facility] SODIUM, URINE RANDOM 2021-02-20 22:10:00 Tyron Stringer [facility] PROTEIN CREAT RATIO URINE 2021-02-20 22:10:00 Tyron Stringer [facility] COVID-19 (ID NOW RAPID 2021-02-20 22:10:00 Jordan Kumari [facility] Medical Branch LAB ONLY COVID 2021-02-20 22:10:00 Jordan Kumari [facility] INTERPRETATION [facility] BLOOD CULTURE SCREEN 2021-02-20 21:10:00 Jordan Kumari [facility] LACTIC ACID WHOLE BLOOD 2021-02-20 21:10:00 Jordan Kumari [facility] BLOOD CULTURE SCREEN 2021-02-20 21:02:00 Jordan Kumari [facility] PHOSPHORUS 2021-02-20 21:02:00 Tyron Stringer [facility] CREATINE KINASE 2021-02-20 21:02:00 Siomara ned [facility] URIC ACID 2021-02-20 21:02:00 Siomara ned [facility] LIPASE 2021-02-20 21:02:00 Jordan Kumari [facility] MAGNESIUM 2021-02-20 21:02:00 Siomara [facility] FERRITIN SERUM 2021-02-20 21:02:00 Siomara [facility] TROPONIN I 2021-02-20 21:02:00 Jordan Kumari [facility] THYROID STIMULATING 2021-02-20 21:02:00 Tyron Stringer [facility] HORMONE [facility] COMP. METABOLIC PANEL 2021-02-20 21:02:00 Jordan Kumari [facility] ([id number]) [facility] LIPID PANEL ([id number])(TOTAL 2021-02-20 21:02:00 Tyron Stringer [facility] CHOLESTEROL, [facility] TRIGLYCERIDES, HDL) CBC WITH DIFF 2021-02-20 21:02:00 Jordan Kumari [facility] GLYCOSYLATED HEMOGLOBIN 2021-02-20 21:02:00 Tyron Stringer [facility] (A1C) [facility] N-TERMINAL PRO-BNP 2021-02-20 21:02:00 Jordan Kumari [facility] XR CHEST 1 VW 2021-02-20 20:58:38 Jordan Kumari [facility] EKG-12 LEAD 2021-02-20 20:52:14 Doctor Unassigned, [facility] ASSIGNMENT OF BENEFITS 2021-02-20 20:48:04 Doctor Unassigned, [facility] NOTICE OF PRIVACY 2021-02-20 20:47:37 Doctor Unassigned, [facility] PRACTICES [facility] CONSENT/REFUSAL FOR 2021-02-20 20:47:11 Doctor Unassigned, [facility] DIAGNOSIS AND TREATMENT [facility] REPORT OF PROCEDURE - 2020-11-29 14:12:20 Amor Muller [facility] ENDOSCOPY [facility] Center CYTOLOGY REQUEST 2020-11-29 14:08:[address] [facility] CYTOLOGY 2020-11-29 14:08:00 Amor Muller [facility] UPPER ENDOSCOPY,FNA 2020-11-29 13:50:00 Amor Muller [facility] W/ULTRASOUND Center POCT-GLUCOSE METER 2020-11-29 11:45:00 Amor Muller [facility] Plan of Care Planned Activity Planned Date Details Comments Source Future Scheduled 2023-06-[address] [facility] Test 00:00:00 (Season Ended) [code Medical Center = INFLUENZA VACCINE (Season Ended)] Future Scheduled 2023-06-[address] [facility] Test 00:00:00 (Season Ended) [code Medical Center = INFLUENZA VACCINE (Season Ended)] Future Scheduled 2023-01-21 COVID-19 VACCINE (#1) [facility] Hospital Test 08:20:39 [code = COVID-19 VACCINE (#1)] Future Scheduled 2023-01-21 SHINGLES VACCINES ([facility] 08:20:39 of 2) [code = SHINGLES VACCINES (1 of 2)] Future Scheduled 2023-01-21 65+ [facility]OCOCCAL [facility] Test 08:20:39 VACCINE (2 - PCV) [code = 65+ PNEUMOCOCCAL VACCINE (2 - PCV)] Future Scheduled 2023-01-21 INFLUENZA VACCINE Method ist Hospital Test 08:20:39 [code = INFLUENZA VACCINE] Future Scheduled 2022-10-[address] [facility] Test 00:00:00 (12+) [code = Medical Center DEPRESSION SCREENING (12+)] Future Scheduled 2022-10-19 FALLS RISK SCREENING [facility] Test 00:00:00 [code = FALLS RISK Medical C enter SCREENING] Future Scheduled 2022-10-[address] [facility] Test 00:00:00 (12+) [code = Medical Center DEPRESSION SCREENING (12+)] Future Scheduled 2022-10-19 FALLS RISK SCREENING [facility] Test 00:00:00 [code = FALLS RISK Medical C enter SCREENING] Future Scheduled 2022-10-01 COVID-19 VACCINE (#1) [facility] Hospital Test 07:32:36 [code = COVID-19 VACCINE (#1)] Future Scheduled 2022-10-01 SHINGLES VACCINES (1 Met [facility] Test 07:32:36 of 2) [code = SHINGLES VACCINES (1 of 2)] Future Scheduled 2022-10-01 65+ PNEUMOCOCCAL Methodi Hospital Test 07:32:36 VACCINE (2 - PCV) [code = 65+ PNEUMOCOCCAL VACCINE (2 - PCV)] Future Scheduled 2022-10-01 INFLUENZA VACCINE Method ist Hospital Test 07:32:36 [code = INFLUENZA VACCINE] Future Scheduled 2022-07-14 COVID-19 Vaccination [facility] [place] Test 13:17:38 (#1) [code = COVID-19 [facility] (#1[facility] Center Future Scheduled 2022-07-14 COVID-19 Vaccination [facility] [place] Test 13:17:38 (#1) [code = COVID-19 [facility] (#1)] Center Future Scheduled 2022-07-14 COVID-19 Vaccination [facility] [place] Test 13:17:38 (#1) [code = COVID-19 [facility] (#1)] Center Future Scheduled 2022-07-14 HEPATITIS B VACCINES Met [facility] Test 08:40:04 (1 of 3 - 3-dose series) [code = HEPATITIS B VACCINES (1 of 3 - 3-dose series)] Future Scheduled 2022-07-14 COVID-19 VACCINE (#1) [facility] Hospital Test 08:40:04 [code = COVID-19 VACCINE (#1)] Future Scheduled 2022-07-14 SHINGLES VACCINES ([facility] 08:40:04 of 2) [code = SHINGLES VACCINES (1 of 2)] Future Scheduled 2022-07-14 65+ PNEUMOCOCCAL Methodi Hospital Test 08:40:04 VACCINE (2 - PCV) [code = 65+ PNEUMOCOCCAL VACCINE (2 - PCV)] Future Scheduled 2022-07-14 INFLUENZA VACCINE Method [facility] Hospital Test 08:40:04 [code = INFLUENZA VACCINE] Future Scheduled 2022-07-14 HEPATITIS B VACCINES Met [facility] Hospital Test 08:40:04 (1 of 3 - 3-dose series) [code = HEPATITIS B VACCINES (1 of 3 - 3-dose series)] Future Scheduled 2022-07-14 COVID-19 VACCINE (#1) Me [facility] Hospital Test 08:40:04 [code = COVID-19 VACCINE (#1)] Future Scheduled 2022-07-14 SHINGLES VACCINES ([address] [facility] Hospital Test 08:40:04 of 2) [code = SHINGLES VACCINES (1 of 2)] Future Scheduled 2022-07-14 65+ PNEUMOCOCCAL [facility] Hospital Test 08:40:04 VACCINE (2 - PCV) [code = 65+ PNEUMOCOCCAL VACCINE (2 - PCV)] Future Scheduled 2022-07-14 INFLUENZA VACCINE Method [facility] Hospital Test 08:40:04 [code = INFLUENZA VACCINE] Future Scheduled 2021-11-[address] [facility] Test 00:00:00 Counseling and Medical Cente r Screening (12+) [code = Tobacco Cessation Counseling and Screening (12+)] Future Scheduled 2021-11-[address] [facility] Test 00:00:00 [facility]ing and Medical Cente r Screening (12+) [code = Tobacco Cessation Counseling and Screening (12+)] Future Scheduled 2021-11-27 COVID-19 VACCINE (1) Met [facility] Hospital Test 23:55:17 [code = COVID-19 VACCINE (1)] Future Scheduled 2021-11-27 SHINGLES VACCINES Method [facility] Hospital Test 23:55:17 (#1) [code = SHINGLES VACCINES (#1)] Future Scheduled 2021-11-27 65+ PNEUMOCOCCAL Method[facility] Hospital Test 23:55:17 VACCINE (1 of 1 - PPSV23) [code = 65+ PNEUMOCOCCAL VACCINE (1 of 1 - PPSV23)] Future Scheduled 2021-11-27 INFLUENZA VACCINE Method ist Hospital Test 23:55:17 [code = INFLUENZA VACCINE] Future Scheduled 2021-10-[address] [facility] Test 00:00:00 WELLNESS (YEAR 2 or Medical Center FIRST YEAR if no IPPE) [code = MEDICARE ANNUAL WELLNESS (YEAR 2 or FIRST YEAR if no IPPE)] Future Scheduled 2021-10-[address] [facility] Test 00:00:00 WELLNESS (YEAR 2 or Medical Center FIRST YEAR if no IPPE) [code = MEDICARE ANNUAL WELLNESS (YEAR 2 or FIRST YEAR if no IPPE)] Future Scheduled 2021-06-[address] [...] YRS [facility] Test 00:00:00 (1 - PCV) [code = Medical Ce nter PNEUMOCOCCAL 65+ YRS (1 - PCV)] Future Scheduled 1998 PNEUMOCOCCAL 65+ YRS [facility] Test 00:00:00 (1 of 1 - Medical Center [id number] PCV13) [code = PNEUMOCOCCAL 65+ YRS (1 of 1 - [id number]_[id number] PCV13)] Future Scheduled 1998 PNEUMOCOCCAL 65+ YRS [facility] Test 00:00:00 (1 of 1 - Medical Center [id number] PCV13) [code = PNEUMOCOCCAL 65+ YRS (1 of 1 - [id number]_Otwhvqe PCV13)] Future Scheduled 1998 PNEUMOCOCCAL 65+ YRS [facility] Test 00:00:00 (1 - PCV) [code = Medical Ce nter PNEUMOCOCCAL 65+ YRS (1 - PCV)] Future Scheduled 1983 SHINGLES VACCINES (1 CH[facility] [...] Medical [address] [facility] VACCINE (1)] Future Scheduled 1934-01-07 COVID-19 VACCINE (#1) [facility]:00:00 [code = COVID-[address] VACCINE (#1)] Future Scheduled 1934-01-07 COVID-19 VACCINE (#1) [facility] 00:00:00 [code = COVID-[address] VACCINE (#1)] Encounters Start End Encounter Admission Attending Care Care Encounter Source Date/Time Date/Time Type Type Clinicians Facility Department ID 2021-07-27 Outpatient [facility] Surgery [id number] [facility] 00:46:32 AMOR 2021-06-19 Outpatient SYSTEM, [facility] [id number] 16:55:25 PROVIDER Dani bill 2022-09-09 2022-09-09 Orders Doctor GURU [id number] Univers 00:00:00 00:00:00 Only Unassigned, FANNY 350.1.13.10 ity of [place] [facility] 4.2.7.2.686 Aniceto as [id number] [place] [address] Branch 2022-06-27 2022-06-27 Telephone Luis, 1.2.840.1 [id number] Univers 00:00:00 00:00:00 Rina Figueroa 28661.1.1 it y of 3.412.2.7 [place] .3.229855 MD Whitley8 [facility] 2022-06-27 2022-06-27 Telephone Luis, 1.2.840.1 [id number] Univers 00:00:00 00:00:00 Rina Figueroa 13657.1.1 it y of 3.412.2.7 [place] .3.346550 MD Whitley8 [facility] 2022-06-24 2022-06-24 Office Kelley 1.2.840.1 [id number] Methodi 13:20:00 13:39:01 Visit Lawanda Raphael 05855.1.[address] 3.430.2.7 Hospit a .3.853113 shyla .8 2022-06-24 2022-06-24 Office Dominy, 1.2.840.1 [id number] Methodi 13:20:00 13:39:01 Visit Lawanda Raphael 98953.1.[address] 3.430.2.7 Hospit a .3.191661 l .8 2022-06-24 2022-06-24 Travel 1.2.840.1 1.2.531.890 [id number] Methodi 00:00:00 00:00:[address] 3.430.2.7 0.2.7.3.698 Ho spita .3.256755 084.8 l .8 2022-06-24 2022-06-24 Outpatient KELLEY [facility] [id number] 00:00:00 00:00:00 LAWANDA Granados[address] [facility] [address] 2022-06-24 2022-06-24 Travel 1.2.840.1 1.2.970.227 [id number] Methodi 00:00:00 00:00:[address] 3.430.2.7 0.2.7.3.698 Ho spita .3.648440 084.8 l .8 2022-05-13 2022-05-13 Travel 1.2.840.1 1.2.259.061 [id number] Methodi 00:00:00 00:00:[address] 3.430.2.7 0.2.7.3.698 Ho spita .3.474899 084.8 l .8 2022-05-13 2022-05-13 Travel 1.2.840.1 1.2.693.672 [id number] Methodi 00:00:00 00:00:[address] 3.430.2.7 0.2.7.3.698 Ho spita .3.100148 084.8 l .8 2022-03-14 2022-03-14 Outpatient Chris PUENTES [facility] [id number] Univers 10:20:00 10:20:00 TA ity of [facility] 2022-02-12 2022-02-12 Telephone Luis, 1.2.840.1 [id number] Univers 00:00:00 00:00:00 Rina A 71914.1.1 it y of 3.412.2.7 [place] .3.803727 MD Whitley8 [facility] 2021-11-28 2021-11-28 Telephone Andujar-Rom 1.2.840.1 [id number] Univers 00:00:00 00:00:00 hector 34165.1.1 ity of [place] 3.412.2.7 [place] .3.077533 MD Whitley8 [facility] 2021-10-21 2021-10-21 Documentat Yareli, 1.2.840.1 [id number] Univers 00:00:00 00:00:00 ion Sang Reardon 63424.1.1 i ty of 3.412.2.7 [place] .3.930915 MD Whitley8 [facility] 2021-10-03 2021-10-03 Telephone Lucille, 1.2.840.1 [id number] Univers 00:00:00 00:00:00 Ashley 50722.1.1 ity of 3.412.2.7 [place] .3.328168 MD [place] [facility] 2021-10-01 2021-10-01 Telephone Luis, 1.2.840.1 [id number] Univers 00:00:00 00:00:00 Rina A 04761.1.1 it y of 3.412.2.7 [place] .3.014387 MD [place] [facility] 2021-09-20 2021-09-20 Office EL Lucille, 1.2.840.1 [id number] Univers 10:40:00 10:40:00 Visit Ashley 66678.1.1 ity of 3.412.2.7 [place] .3.978038 MD [place] [facility] 2021-09-20 2021-09-20 Travel 1.2.840.1 1.2.551.150 [id number] Univers 00:00:00 00:00:00 26948.1.1 350.1.13.41 [place]y of 3.412.2[place]698 [place] 084.8 MD [place] [facility] 2021-08-23 2021-08-23 Office JACE Benitez 1.2.840.1 [id number] [facility] 11:30:00 12:02:10 Visit Kinsey 01208.1.1 ity of 3.412.2.7 [place] .3.947754 MD Whitley8 [facility] 2021-08-23 2021-08-23 Travel 1.2.840.1 1.2.542.872 [id number] Univers 00:00:00 00:00:00 22799.1.1 350.1.13.41 ity of 3.412.2.[place].698 [place] 084.8 MD [place] [facility] 2021-07-24 2021-07-24 Outpatient JACE BENITEZ SRAVANI MDA [id number] 09:57:59 11:35:29 KINSEY bill 2021-07-11 2021-07-11 Outpatient JACE BENITEZ SRAVANI MDA [id number] 07:24:23 16:14:43 KINSEY bill 2021 2021 Outpatient SRAVANI MDA [id number] 09:43:10 09:43:10 Dani bill 2021-07-04 2021-07-04 Outpatient JACE BENITEZ SRAVANI MDA [id number] 08:03:03 12:45:35 KINSEY bill 2021-06-21 2021-06-21 Outpatient JACE LUCILLESRAVANI MDA [id number] 09:37:53 11:15:25 ASHLEY bill 2021-06-21 2021-06-21 Outpatient JACE ADKINS MDA MDA [id number] 09:31:19 09:31:25 ASHLEY Daniargenis bill 2021-06-11 2021-06-11 Travel 1.2.840.1 [id number] Methodi 00:00:00 00:00:[id number] 3.430.2.7 0.2.7.3.698 [facility] .[id number] 084.8 l .8 2021-04-18 2021-04-18 Outpatient R DIMA [facility] [id number] Univers 14:00:00 14:00:00 SENDIL [facility] 2021-03-14 2021-03-14 Transition AnaMary Lou montaguefly 1.2.840.114 [id number] Univers 00:00:00 00:00:00 of Care Tamika Zamudio 350.1.13.10 [place] [place] [phone] [facility] [address] 2021-03-08 2021-03-13 Emergency Mina Wu [facility] 1.2. [id number] [id number] Univers 11:13:00 14:30:00 Daniel Paul 350.1.13.10 [place] [phone] [facility] [address] 2021-03-08 2021-03-13 Outpatient X YOANDY [facility] [id number] Univers 11:13:00 14:30:00 DANIEL zamora [facility] 2021-03-12 2021-03-12 Outpatient Chris CH [facility] [id number] Univers 08:30:00 08:30:00 SENDJOSE ALFREDO [facility] 2021-03-08 2021-03-08 Shankar Ch [facility] [id number] Univers 00:00:00 00:00:00 Kera Marrufo 350.1.13.10 ity [facility] [place] [phone] Wi dical nal 9 [facility] 2021-03-06 2021-03-06 Office Dima [facility] [id number] Univers 13:42:37 14:43:04 Visit Kera AndrewsRiverAngi Marrufo 350.1.13.10 [place] [phone] Wi dicpr nal [address] [place] [address] 2021-03-06 2021-03-06 Outpatient R DIMA [facility] [id number] Univers 14:00:00 14:00:00 SENDIL ity [facility] 2021-03-05 2021-03-05 [facility] [id number] Univers 15:09:13 16:42:02 Visit Fran RAY 350.1.13.10 i ty of [facility] 4[place].2.[address] [place] [id number] [facility] [address] 2021-03-05 2021-03-05 Outpatient R DEMETRIUS [facility] [id number] Univers 15:15:00 15:15:00 FRAN ity of [facility] 2021-02-25 2021-02-25 Transition Jaren Arambula 1.2.840.114 [id number] Univers 00:00:00 00:00:00 of Care Luis Felipe Zamudio 350.1.13.10 ity [facility] 4[place].[address] [place] [phone] [facility] [address] 2021-02-20 2021-02-22 Inpatient X SIOMARA [facility] [id number] Univers 14:56:00 17:10:00 ADNAN ity of [facility] 2021-02-20 2021-02-22 Hospital Jordan Kumari [facility] 1.2.840.11 [id number] Univers 14:56:00 17:10:00 Encounter Prabhakar Childs 350.1.13.10 ity of [place] 4.2.7.2.686 [facility] [phone] Medi cal [address] 2020-11-29 2020-11-29 [facility] [id number] 09:49:00 15:37:00 Encounter [facility] 2020-11-29 2020-11-29 Anesthesia Vandana Moran [facility] [id number] [facility] 13:55:00 14:17:00 Event JosephRonda [facility] 2020-11-29 2020-11-29 [facility] [id number] 12:00:00 13:00:00 [facility] 2020-11-29 2020-11-29 Travel [facility] [id number] [facility] 00:[facility] 00:00:00 [facility] 2020-11-26 2020-11-26 [facility] [id number] 11:40:00 23:59:00 Encounter [facility] 2020-11-26 2020-11-26 Outpatient EL SLE [facility] [id number] [facility] 00:00:00 00:00:00 2020-11-26 2020-11-26 Travel [facility] [id number] [facility] 00:[facility] 00:00:00 [facility] 2020-05-24 2020-05-24 Outpatient COH CO[facility] PDPFEIM ZCM COH 00:00:00 00:00:00 [facility]-[id number] Results Test Description Test Time Test Comments Results Result Comments Source Pathology Biopsy Interpretation 2021-09-23 19:25:36 Test Item Value Reference Range Interpretation Comme nts Addendum z8vusXIeHQYjdTP3ApCsRPLce4nqb6DlgTTkyXTmEUpeyOKhnpDtwe88fNZ6lF38UN2mFCVvRqQ5GLJm kqL4Zue1LYBuLFJhbMOtL274h1hvt4ahweRonDD8yQbqXEBmtjpjGnR8ZFrlDNOkwjjgHMj1JEriDKSp sRJ4EPXbbARsU3HrULZbYE0jrah8CLD4QRxwSMFnGuA 1 (test 2JSBpnINyMBZleQwrFFppg984LIC1BeZqEZTzvkBelSjjzF3jGxNzACXGcIt2iYGdWHArWSZcePddqnB oMGOqOMKgdjB2cRIyiCElw9ZxbLagofPdfFR0VSNpNDMtSYH5iPFbrnSkSVweeMfqYTXkGOoaCVWlxNX aAUEbVMLgqfV2eIXjtLLhwKQ3GItjERYvm3itZs1QEM code = xwS2RYBP3QESYiM1CWYDNUAHHLQW8PTZSiHV2vG4fILVMKZlnPPO9UWPeFYQZOY07SGCBHAI1XLOkTQK mvXEbMGNWXMTBBSHxJJVKYNFjYBMGkV8CCFOJPM5rSVVMISuWNKJCTFYyEYBNURxTPOE3GSMVBEZTORv gFJKOYEOrxRT5ZXVMNQLVwJQmKQ3ZUOPHBM2KJRoeaT 37) YLsgMIdPHNcX84yo6VscUEedEfsXQGhMuXfRB4olYZsvS== Submitted e1qerLQnSURcdFP0AzCwVSXuw8mhy1KhzIIgqFOgJZnudOPkzpYwvi35iLP7sZ32BS9tQQVjQeC9HPDg tzH4Qpg1CCZhFDCfyQApB145c1lju9pywnTueHK2hSnlEULpxosoTpK0AHsoUFMrymkpVMi5EDpnFDYp aKB3BSIcmGGuF3UaHCEfTG0robc4HEK7FIygJYBxMpN Clinical 9NKWadUZxBLDhhShbIJqlx443YDF3YmSaXBRjfhRjsZblsQ4cVhFhKZGXYI9jdRCetRMcZpR7uhOqjyV auY1mZyXwERVam0Unc2Txp7ooonChBVS1YhUsOXAidnutYRM6 History (test code = 91331) Diagnosis x0mvhELuRPGyxKL0UwAtFBLri5wcr0JbeTVclUTtCPulcJVbieGfwq12bEZ1fE32PO7pVTMgAeK5AFQh fyQ6Vtd7UGDuSPRxfOQuA848d1amp2qzkqLgxFI8UQBbGMYvR4ZoFI7tXQVocYZjZ93boTHyNNA0PRJh WFDctPDeWSIaRNI8VBEfuSOgX4uhSHPePN1zrefvNHi (test iKZudUAZcnIF4YGWuzJJcI9MiJZTwJHxhWTAtcvs2LwXmUd1xfEBtnFbrXOwzMVVjKKUdHJamHMTwArP tL5AvSAL4RORdiF5tWBRvI3a4ZSyitXPnZYgyc6VgzHToHYmipOuszwZkZNekxN8uPIDqjUY4YTwcsKI yXGxpNzIwXGxpbjcyMFxjZjAgSHlwZXJwbGFzdGljIG code = UzrKjrkOSck2XqRXKzd8wvPFzkoAtftaAuulCyk4MpKVLuKHX0izCwRWQ2kmJ6uKW1lAiiICizoJAas2 SfkASzaQJnSODgeJiskgAlTMItXAToLNDyWHWcu3P7ZUAzJRzdys5gNHSuuaTRCRWcG81dyUMrzE4uyR FyfQ== 34) Comment j6ywwLEuLMNcpSH0WkJaBOUxj0kyy6KpgZGudOIjJAabwQMcgqKhuy33sVH7sF83HP2cQCHuIzV3FEIc vvR7Lry7CWApYIJrmJUnN358x9mlq9bhanRooCF0tVofLYKphipnVpI0NQiuBXVsrtxoENr9BZnvDSEt oCV5LIKwePIoP1XzCMBjPA6xeqi0LXF1TLyvYMZeBiC (test 2NYBveRBgWEOreJaaNVjdq375EIE7CfTkJMIaupXyuPlqsDxtaS1tJjVbOTQPutBhMOYvyUsfeuEzSOG cj9ZakLQyAIggAcGpJ24za9izXGIrKHDlrH87zUHioBmddrOwVTAjj27kHsBteNT5jxAyOLXwb24jVSO dVTTckhTuduYtxFk5TEG9qAMbQDE4GvVgkJOmnH== code = 9835) Gross t5kmwRRuPCVflHTEWXnoTUybahZwTWMejSMdT3RfipcfLWxbGT6vBC7neTsuyWOxoLAcAS5WNTPrAzDb USXirFBudrQgKsLwHTOnoCSxyLQ3MZRnAN7bwxhwESkwYOoeWOVqfcF5BWTzdVGzY7TpECCyTG3zenen RHM8UGeupA5wmwSBPivsVv5nzITncYkvJvBnViQtLKN Descripti iPVApWLOxvOafJGZlDWs5lE3QVgjbG18pg8W3Ban0VAXrGCAiV7GrQY2cWDKqyHBcM21LKnryZIX3HQO URiosASQcUQ1Lo9hpDBEapLYeRGF0WXftwVHoAHYeIMKnGVv2EWTxGBsruJLxGT0stAlpIokfsTciu2B pwJKcMQcvMKBfHECwJXajXZYlDZ3NRtZzZPAwEHJfIC on (test DoVCi7ARe3OQ0XZgBqHDIzLGf8DSJiDLFlOQw6UNneYS6DFPi6JLe5GTg9VHH7HIY8FROkLRSdBuLrTP ZhPOYiBJkxXHbhosUiXDXgCXXxJYznMefyYEweA60hlStgeR7wKawqoqZfEKC0XLToqvUDQsyezDRphz xlcGljTmVzdERvYzEgDQpcbHRycGFyXGxpbjBccmluM code = FJIHzcsvPOluRviWRPsSLqdguFlTNTuoL3lTQXgaAM1QWOaeHPzmAXiYO2sxFW6wALsMTonp1nuvhUdJ C5hPS50AC7aPIEozxmfu2AjrNmxxEmsirUqWTZ5fYTjJWC/f3XfOXjbZQQudGJ2JKZjADAePUSuSBH4A U4uw8ivlhJpvTR7SHyeBV59EHtcOA77FPouMN7hPCRs 373586952 QiCfSDlpYL7ibmnthbIbYZItORnrn3CqMUHguMXfW6RiRCykHH81oVYyuUsno4VtkHf4fJMkAKsfKFQq StLzYMUxc2UwC3D6UYLkGCbmv7wcWIHiCQbfa7OgUTvPLZBJUL7RAD2qjST9PEmVQ0VDI7wCxRRzUWZ4 iHW6MZFRQjaeuLW1bWY7iV16PHXtLJDnyHXvTLltJ95 1) 7KYE6HLCfWIolo1uzQIYiKEtjt7FfJLgRAHDSXJ8LGH6qrXQ3DQxCH0MJHNcoJZSlTosyeXLAEYW7APv pnYybbDv4x8pbuZHfw0p2FBclDCS6tYkkoYBuswcxmUNfmLkzqbHcEZ5IDNOfwJZZRTG2GG3oMZj8ONg hBRNxK9OnN0QevdCizNVgQHDianOrl5zfBCY1WSXdeW WriBVlRqKkXrslHMM6SRKyKKvbUK0FMCThYSV1BEhryG48pJVwGX7YAZKyIYmgPDKyTZFsqcT4NLAktY LtHDK9UF6rlKuodOLrnxuaskR2WE2UnE== Disclaime o5ownYKkYXWqoHIvViTsGALnGXRhi0ziRJElvOVgReZoVrTyHdYfDdxpyDXgMVCjTwFbr4ndk765yMMq g7lkRLFtOfN7xZVwLPTgrGUqF844HKIiSWmjl7lzr3BhVUAznVAor2T3YQHPbwfkmYh4zIfkD64hd6H9 MgeaB4dsTIXzAUObP7MiPO8gAIMpZkl8NIQ8RRB3PWW r (test gUFSbP6NvML0wTLJepJLwPWe8c3fosNkjVBJtVMP0m0shBCaebrSzVV6sqb0ptWd4k5qoxlIyDRCdQAY egLFAIOMeJ5UnnCozPz7ohKs1iBrkXiywFKV0Mfu3KL8fsv70vsf2sUkzZGUdasmbLaI9ZCxeOTCzycv oPUu7RVbiRWJjcCU0UWIgpWDuX6PrGCNlQK8cksq2HM code = V6DZqpKYSwIiF4XQMycOZaHRAhcKmwSCyiq507ATR7CsOfUD7xI0Sky0R6aQ4toSIoPMRnuJJjBgVfSD Ydmc8kqUJlGQvcx6ZeKCQ0wiB6xGAofWPdGNFpQQ34Czfhb3PbBxlrUXV3AOGgyqRcm1Ikd8loSyXghw PmN4fkN9ThQSDbMXGlAXCoQlJolkEjk8Hnd1ClzYAso 9844) Dk7x1gpCEVmDRTeaQgfp6peVLG8IYMcO2L2fPJno3joEPddRCRwfIQ8vmH7UCWndGVoC0CvdK8pTLZtM P1rejz3d2ndPQF5JIafBVPqYxP1qeV9QIJcrKFfMZUxzQsuXIlek387YGI5ErBcEAAns6CyP6OzfYocE 16pyPlkW98yOQVdfTdvuF5usEtveJ0fNfExHzMuTFcg iHcoaMUwvmwjLZvdakW4GLshsczbXGUeSJunU5muDvWiEXQbrFnjLKoyg1XqJHGmHOUnQteshsA4KYPS a46nPULaq2XwBJZnlN6ynJKdVDcxdcZfwXO1MLorsiKuHdFcuyYgESKrvY0gNPRxPA0yKAEejdVspw6s gdSwJHEyCPUbG9XicsykjSjqqjFqCVUujw1lfmTuEBJ 8SCXCLA9GEVRvDRFky58rICRytEgkeY9lgOSlxkIfMILnr2XmjC8nkTIOCXLoO0ehYD0lWKkxi1YtgMN blAPokFH6KYPhl1PjIvNjevWjnAEcjOGuQ8GquZcvN3bjSFVqJWMjfnUorSZzx8XkZNEzaHV1dLMoVA4 SZwEGo21eSJGjKEVBniUaZXOktGfemYP7jwG0nP8vFp XMAtDikVObpFWwFfniEAVrm597az6zzkW5EVVmBIZdpiwwm9IoNITmVFQodO62CIOrKEObnr7zejlciN LxsrHjJ7Pfdol8kJ7dNQFuBZtvNRQlCREvGtMhcJCsVpOzJzEdkJjtfVzuWOljShPrGQHrXKwsU1ciUi FcZnMyMlxwYXJ9 [facility]2021-03-13 17:08:53 Test Item Value Reference Range Interpretation Comments POCT GLU (test code = 1959998611) 125 mg/dL 70-110 H Lab Interpretation (test code = Abnormal 91827-2) [facility] GLUCOSE (AUTOMATED)2021-03-13 13:43:14 Test Item Value Reference Range Interpretation Comments POCT GLU (test code = 9121226135) 102 mg/dL 70-110 Lab Interpretation (test code = Normal 58639-2) [facility] GLUCOSE (AUTOMATED)2021-03-13 01:32:16 Test Item Value Reference Range Interpretation Comments POCT GLU (test code = 8009346537) 151 mg/dL 70-110 H Lab Interpretation (test code = Abnormal 31235-9) [id number] 22:10:14 Test Item Value Reference Range Interpretation Comments NT-proBNP (test code 1680 pg/mL See_Comment H [Autom ated = 8776752222) message] The system which generated this result transmitted reference range : <=450. The reference range was not used to interpret this result as normal/abnormal . CARL (test code = CARL) Biotin has been reported to cause a negative bias, interpret results relative to patient's use of biotin. Lab Interpretation Abnormal (test code = 59427-1) [facility] GLUCOSE (AUTOMATED)2021-03-12 21:33:57 Test Item Value Reference Range Interpretation Comments POCT GLU (test code = 7392018942) 182 mg/dL 70-110 H Lab Interpretation (test code = Abnormal 80763-3) [facility] (NA, K, CL, CO2, GLUCOSE, BUN, CREATININE, CA)2021-03-12 19:36:16 Test Item Value Reference Range Interpretation Comments NA (test code = 133 mmol/L 135-145 L 6781700524) K (test code = 4.7 mmol/L 3.5-5.0 8998667646) CL (test code = 104 mmol/L 98-108 2737607303) CO2 TOTAL (test code = 20 mmol/L 23-31 L 4806596053) AGAP (test code = 2-16 9259170354) BUN (test code = 23 mg/dL 7-23 8685641238) GLUCOSE (test code = 210 mg/dL 70-110 H 3575387027) CREATININE (test code = 1.20 mg/dL 0.50-1.04 H 7667612436) CALCIUM (test code = 9.2 mg/dL 8.6-10.6 6419934809) eGFR (test code = mL/min/1.73m2 2399197909) CARL (test code = CARL) Association of [...] tests). Lab Interpretation Abnormal (test code = 74622-2) [facility] GLUCOSE (AUTOMATED)2021-03-12 16:27:07 Test Item Value Reference Range Interpretation Comments POCT GLU (test code = 8277870373) 136 mg/dL 70-110 H Lab Interpretation (test code = Abnormal 80766-0) [facility] GLUCOSE (AUTOMATED)2021-03-12 12:46:34 Test Item Value Reference Range Interpretation Comments POCT GLU (test code = 7187241183) 93 mg/dL 70-110 Lab Interpretation (test code = Normal 60829-3) [facility] GLUCOSE (AUTOMATED)2021-03-12 10:18:23 Test Item Value Reference Range Interpretation Comments POCT GLU (test code = 6123742028) 143 mg/dL 70-110 H Lab Interpretation (test code = Abnormal 82703-8) [facility] GLUCOSE (AUTOMATED)2021-03-12 10:18:17 Test Item Value Reference Range Interpretation Comments POCT GLU (test code = 9456455203) 94 mg/dL 70-110 Lab Interpretation (test code = Normal 26192-1) [facility] GLUCOSE (AUTOMATED)2021-03-12 01:30:35 Test Item Value Reference Range Interpretation Comments POCT GLU (test code = 4087110030) 167 mg/dL 70-110 H Lab Interpretation (test code = Abnormal 71354-3) [facility] GLUCOSE (AUTOMATED)2021-03-11 21:25:48 Test Item Value Reference Range Interpretation Comments POCT GLU (test code = 2316788941) 145 mg/dL 70-110 H Lab Interpretation (test code = Abnormal 39841-4) [facility] METABOLIC PANEL (NA, K, CL, CO2, GLUCOSE, BUN, CREATININE, CA)2021-03-11 16:22:13 Test Item Value Reference Range Interpretation Comments NA (test code = 134 mmol/L 135-145 L 7760125381) K (test code = 3.3 mmol/L 3.5-5.0 L 8543931700) CL (test code = 103 mmol/L 98-108 6167141186) CO2 TOTAL (test code = 24 mmol/L 23-31 8662299909) AGAP (test code = 2-16 9190848039) BUN (test code = 25 mg/dL 7-23 H 1493839165) GLUCOSE (test code = 144 mg/dL 70-110 H 4780809165) CREATININE (test code = 1.18 mg/dL 0.50-1.04 H 8576308879) CALCIUM (test code = 8.9 mg/dL 8.6-10.6 3761163935) eGFR (test code = mL/min/1.73m2 2195707992) CARL (test code = CARL) Association of [...] tests). Lab Interpretation Abnormal (test code = 22002-3) [facility] [id number] 16:00:45COVID DMT InterpretationInterpretation/Recommendations: Molecular NAAT Tests for [...] medical record. [facility] SERVICESCOVID SskuewpCEMH-CaF-8 Rapid ID NOW (no units) ? ? Date ? Value ? 03/08/2021 ? Not Detected ? ? ? 02/20/2021 ? Not Detected ? [facility]Un[facility])2021-03-11 01:41:12 Test Item Value Reference Range Interpretation Comments POCT GLU (test code = 2067617187) 150 mg/dL 70-110 H Lab Interpretation (test code = Abnormal 42453-7) [facility] GLUCOSE (AUTOMATED)2021-03-10 20:54:33 Test Item Value Reference Range Interpretation Comments POCT GLU (test code = 7416769647) 152 mg/dL 70-110 H Lab Interpretation (test code = Abnormal 79426-0) [facility] GLUCOSE (AUTOMATED)2021-03-10 17:21:37 Test Item Value Reference Range Interpretation Comments POCT GLU (test code = 3512931955) 135 mg/dL 70-110 H Lab Interpretation (test code = Abnormal 38623-8) [facility] [place] [place] PATHOGENS BY [id number] 14:47:37 Test Item Value Reference Range Interpretation Comments Campylobacter (jejuni, Negative Negative, coli and upsaliensis) Indeterminate, (test code = 00922-3) See comment Plesiomonas shigelloides Negative Negative, (test code = 35433-1) Indeterminate, See comment Salmonella (test code = Negative Negative, 76239-2) Indeterminate, See comment Yersinia enterocolitica Negative Negative, (test code = 18316-1) Indeterminate, See comment Vibrio (test code = Negative Negative, 55803-7) Indeterminate, See comment Vibrio cholerae (test Negative Negative, code = 14151-2) Indeterminate, See comment Enteroaggregative E. coli Negative Negative, (EAEC) (test code = Indeterminate, 18263-0) See comment Enteropathogenic E. coli Negative Negative, N/A, (EPEC) (test code = Indeterminate, 74165-4) See comment Enterotoxigenic E. coli Negative Negative, (ETEC) (test code = Indeterminate, 68647-5) See comment Shiga toxin-Producing E. Negative Negative, coli (STEC) (test code = Indeterminate, 32206-9) See comment Shigella/Enteroinvasive Negative Negative, E. coli (EIEC) (test code Indeterminate, = 23805-4) See comment Cryptosporidium (test Negative Negative, code = 31611-6) Indeterminate, See comment Cyclospora cayetanensis Negative Negative, (test code = 24127-9) Indeterminate, See comment Entamoeba histolytica Negative Negative, (test code = 95589-3) Indeterminate, See comment Giardia lamblia (test Negative Negative, code = 91204-5) Indeterminate, See comment Adenovirus F 40/41 (test Negative Negative, code = 03129-2) Indeterminate, See comment Astrovirus (test code = Negative Negative, 33108-0) Indeterminate, See comment Norovirus GI/GII (test Negative Negative, code = 06100-6) Indeterminate, See comment Rotavirus A (test code = Negative Negative, 43101-0) Indeterminate, See comment Sapovirus (test code = Negative Negative, 44437-0) Indeterminate, See comment CARL (test code = CARL) Negative:A negative result does not rule-out infection. ?This assay does not test for all potential infectious agents of diarrheal disease. Positive:A positive test result does not necessarily indicate the presence of viable organism. Lab Interpretation (test Normal code = 60611-8) [facility] [id number] 13:28:07 Test Item Value Reference Range Interpretation Comments URINE CULTURE (test No aerobic growth (< code = 630-4) 1000 CFU/mL) [facility]10 13:02:24 Test Item Value Reference Range Interpretation Comments POCT GLU (test code = 1755609098) 91 mg/dL 70-110 Lab Interpretation (test code = Normal 06641-1) [facility] [id number] 11:08:20 Test Item Value Reference Range Interpretation Comments TROPONIN I (test <0.012 See_Comment [Automated code = 1482011064) message] The system which generated this result [...] ? Lab Interpretation Normal (test code = 76805-3) [facility] [id number] 11:05:18 Test Item Value Reference Range Interpretation Comments NT-proBNP (test code 1740 pg/mL See_Comment H [Autom ated = 5155503059) message] The system which generated this result transmitted reference range : <=450. The reference range was not used to interpret this result as normal/abnormal . CARL (test code = CARL) Biotin has been reported to cause a negative bias, interpret results relative to patient's use of biotin. Lab Interpretation Abnormal (test code = 88532-8) [facility] (NA, K, CL, CO2, GLUCOSE, BUN, CREATININE, CA)2021-03-10 10:56:38 Test Item Value Reference Range Interpretation Comments NA (test code = 133 mmol/L 135-145 L 6603462984) K (test code = 4.5 mmol/L 3.5-5.0 2145700514) CL (test code = 106 mmol/L 98-108 5317764136) CO2 TOTAL (test code = 23 mmol/L 23-31 4226670944) AGAP (test code = 2-16 8530708157) BUN (test code = 27 mg/dL 7-23 H 5231324395) GLUCOSE (test code = 112 mg/dL 70-110 H 2837506925) CREATININE (test code = 1.11 mg/dL 0.50-1.04 H 4746696938) CALCIUM (test code = 8.5 mg/dL 8.6-10.6 L 6159857599) eGFR (test code = mL/min/1.73m2 1795395211) CARL (test code = CARL) Association of [...] tests). Lab Interpretation Abnormal (test code = 21113-2) [facility]:56[facility]38 Test Item Value Reference Range Interpretation Comments MAGNESIUM (test code = 1024951432) 2.0 mg/dL 1.7-2.4 Lab Interpretation (test code = Normal 59231-6) [facility] GLUCOSE (AUTOMATED)2021-03-10 01:56:26 Test Item Value Reference Range Interpretation Comments POCT GLU (test code = 2438561051) 229 mg/dL 70-110 H Lab Interpretation (test code = Abnormal 73227-3) [facility] GLUCOSE (AUTOMATED)2021-03-09 22:09:58 Test Item Value Reference Range Interpretation Comments POCT GLU (test code = 7602014732) 141 mg/dL 70-110 H Lab Interpretation (test code = Abnormal 90618-3) [facility] GLUCOSE (AUTOMATED)2021-03-09 18:37:51 Test Item Value Reference Range Interpretation Comments POCT GLU (test code = 8319093771) 229 mg/dL 70-110 H Lab Interpretation (test code = Abnormal 87140-8) [facility] GLUCOSE (AUTOMATED)2021-03-09 13:56:35 Test Item Value Reference Range Interpretation Comments POCT GLU (test code = 8809200870) 181 mg/dL 70-110 H Lab Interpretation (test code = Abnormal 03453-8) [facility] Metabolic Panel (NA, K, CL, CO2, GLUCOSE, BUN, CREATININE, CA)2021-03-09 10:31:38 Test Item Value Reference Range Interpretation Comments NA (test code = 133 mmol/L 135-145 L 8867036583) K (test code = 3.9 mmol/L 3.5-5.0 0957094236) CL (test code = 104 mmol/L 98-108 6678104352) CO2 TOTAL (test code = 20 mmol/L 23-31 L 0953210963) AGAP (test code = 2-16 1376947701) BUN (test code = 24 mg/dL 7-23 H 7116906585) GLUCOSE (test code = 178 mg/dL 70-110 H 5764595974) CREATININE (test code = 1.14 mg/dL 0.50-1.04 H 8695421787) CALCIUM (test code = 9.1 mg/dL 8.6-10.6 6914867172) eGFR (test code = mL/min/1.73m2 5623709344) CARL (test code = CARL) Association of [...] tests). Lab Interpretation Abnormal (test code = 19589-0) [facility] with [id number] 09:24:40 Test Item Value Reference Range Interpretation [...] (test code = 50.2 fL 39.0-49.9 H 71060-6) RDW-CV (test code = 14.9 % 12.0-15.5 788-0) PLT (test code = See_Comment [Automated 777-3) message] The sy stem which generated this result transmitted reference range : 166 - 358 10*3/ ?L. The reference r cheyanne was not used to interpret this result as normal/abnormal . MPV (test code = 10.1 fL 9.5-12.9 96620-2) NRBC/100 WBC (test See_Comment [Automat ed code = 6971511402) message] The system which generated this result transmitted reference range : 0.0 - 10.0 /100 WBCs. The refer ence range was not u sed to interpret th is result as normal/abnormal . NRBC x10^3 (test code <0.01 See_Comment [Auto mated = 6103368540) message] The s ystem which generated this result transmitted reference range : 10*3/?L. The reference range was not used to interpret this result as normal/abnormal . GRAN MAT (NEUT) % 66.3 % (test code = 770-8) IMM GRAN % (test code 0.40 % = 6404818004) LYMPH % (test code = 28.5 % 736-9) MONO % (test code = 4.6 % 5905-5) EOS % (test code = 0.0 % 713-8) BASO % (test code = 0.2 % 706-2) GRAN MAT x10^3(ANC) 3.61 10*3/uL 1.88-7.09 (test code = 7554297334) IMM GRAN x10^3 (test <0.03 0.00-0.06 code = 9330481411) LYMPH x10^3 (test code 1.55 10*3/uL 1.32-3.29 = 731-0) MONO x10^3 (test code 0.25 10*3/uL 0.33-0.92 L = 742-7) EOS x10^3 (test code = <0.03 0.03-0.39 L 711-2) BASO x10^3 (test code <0.03 0.01-0.07 = 704-7) Lab Interpretation Abnormal (test code = 96778-3) [facility] [id number] 07:37:08 Test Item Value Reference Range Interpretation Comments Clostridioides (Clostridium) Positive Negative A difficile (test code = 62550-6) Lab Interpretation (test code = Abnormal 31073-9) [facility] [id number] 02:33:53No active pulmonary disease. RL: 5611 END [...] normal.IMPRESSIONNo active pulmonary disease.RL: 5611END OF REPORT [facility] 02:08:51 Test Item Value Reference Interpretation Comments Range D-DIMER (test code = See_Comment H [Autom ated 4921014343) message] The system which generated this result [...] diagnosis. Lab Interpretation Abnormal (test code = 95697-5) [facility] Test Item Value Reference Range Interpretation Comments APPEARANCE (test code = Clear Clear 3181972933) COLOR (test code = Yellow Yellow 0414677551) PH (test code = 4.8-8.0 2096467403) SP GRAVITY (test code = 1.003-1.030 0621006317) GLU U QUAL (test code = Normal Normal 5789438693) BLOOD (test code = Negative Negative 8123464561) KETONES (test code = 5 mg/dL Negative A 3110846438) PROTEIN (test code = Negative Negative 2887-8) UROBILIN (test code = Normal Normal 6456539376) BILIRUBIN (test code = Negative Negative 2182607912) NITRITE (test code = Negative Negative 5713878414) LEUK NATHAN (test code = Negative Negative 5116542590) RBC/HPF (test code = <1 See_Comment [Autom ated message] 9099345389) The system [employer] generated this result transmitted ref erence range: 0 - 3 HP F. The reference range was not used to int erpret this result as normal/abnormal . WBC/HPF (test code = <1 See_Comment [Autom ated message] 4962634310) The system [employer] generated this result transmitted ref erence range: 0 - 5 HP F. The reference range was not used to int erpret this result as normal/abnormal . BACTERIA (test code = Negative Negative 1020470287) Lab Interpretation (test Abnormal code = 32186-7) [facility] RAPID TESTING[facility]2021-03-08 19:25:38 Test Item Value Reference Range Interpretation Comments SARS-CoV-2 Rapid ID NOW Not Detected Not Detected (test code = 40162-6) CARL (test code = CARL) ID NOW COVID-19 Assay is an isothermal nucleic acid amplification test intended for the qualitative detection of nucleic acid from SARS-CoV-2 viral RNA in nasopharyngeal (TOM[employer]PER[employer]) specimens. It is used under Emergency [...] indicated. Lab Interpretation Normal (test code = 46020-8) [facility] [id number] 18:26:20 Test Item Value Reference Range Interpretation Comments FREE T4 (test code = See_Comment H [Autom ated message] 4534443126) The system [employer] generated this result transmitted ref erence range: 0.78 - 2 .20 ng/dL:. The ref erence range was not u sed to interpret this result as normal/abnor mal. Lab Interpretation (test Abnormal code = 89785-6) [facility] [id number] 18:17:23 1. ?No acute intra-abdominal abnormality. 2. ?Colonic diverticulosis. 3. Unchanged pancreatic cystic lesions which may represent IPMN or othercystic pancreatic tumor/lesions. If prior evaluation was not performed,recommend follow-up with MRI pancreas. Preliminary Report Dictated by Resident: Mark perdomo I, Skylar Rowley MD., have reviewed this [...] at L2-L3 andL5-S1. Diffuse osteopenia is seen. [facility], Radiant Results Inft User - 03/08/2021 1:18 [...] this study and agree with theabove report. [facility] [id number] 18:05:18 No pulmonary emboli. Colonic diverticulosis and [...] pulmonary emboli.Colonic diverticulosis and a small hiatal hernia.[facility] THYROID STIMULATING [id number] 17:33:13 Test Item Value Reference Range Interpretation Comments TSH (test code = See_Comment [Automated message] 7265241227) The system [employer] generated this result transmitted ref erence range: 0.45 - 4 .70 mIU/L. The refe rence range was not u sed to interpret this result as normal/abnor mal. Lab Interpretation (test Normal code = 23102-2) [facility] [id number] 17:14:54 Test Item Value Reference Range Interpretation Comments TROPONIN I (test <0.012 See_Comment [Automated code = 6874027499) message] The system which generated this result [...] ? Lab Interpretation Normal (test code = 61764-9) [facility] [id number] 17:11:55 Test Item Value Reference Range Interpretation Comments NT-proBNP (test code 861 pg/mL See_Comment H [Autom ated = 6932755445) message] The system which generated this result transmitted reference range : <=450. The reference range was not used to interpret this result as normal/abnormal . CARL (test code = CARL) Biotin has been reported to cause a negative bias, interpret results relative to patient's use of biotin. Lab Interpretation Abnormal (test code = 31545-0) [facility]OL[facility]EL (62310)2021-03-08 17:02:50 Test Item Value Reference Range Interpretation Comments NA (test code = 136 mmol/L 135-145 6908633617) K (test code = 3.2 mmol/L 3.5-5.0 L 0331217093) CL (test code = 102 mmol/L 98-108 6362862013) CO2 TOTAL (test code = 24 mmol/L 23-31 5364497274) AGAP (test code = 2-16 6726672690) BUN (test code = 18 mg/dL 7-23 9948670353) GLUCOSE (test code = 80 mg/dL 70-110 5864000635) CREATININE (test code = 1.12 mg/dL 0.50-1.04 H 6372272038) TOTAL BILI (test code = 0.6 mg/dL 0.1-1.2 1121841706) CALCIUM (test code = 8.9 mg/dL 8.6-10.6 6008362849) T PROTEIN (test code = 5.8 g/dL 6.3-8.2 L 4116316989) ALBUMIN (test code = 3.3 g/dL 3.5-5.0 L 1487357497) ALK PHOS (test code = 83 U/L 34-122 5231050513) ALTv (test code = 14 U/L 5-35 1742-6) AST(SGOT) (test code = 27 U/L 13-40 3440184317) eGFR (test code = mL/min/1.73m2 6114102202) CARL (test code = CARL) Association of [...] tests). Lab Interpretation Abnormal (test code = 25006-7) [facility]LIP[facility], [id number] 17:02:29 Test Item Value Reference Range Interpretation Comments LIPASE (test code = 1744841703) 189 U/L 0-220 Lab Interpretation (test code = Normal 14713-7) [facility]CB WITH [id number] 17:00:16 Test Item Value Reference Range Interpretation [...] (test code = 50.5 fL 39.0-49.9 H 22631-0) RDW-CV (test code = 15.0 % 12.0-15.5 788-0) PLT (test code = See_Comment H [Automated 777-3) message] The sy stem which generated this result transmitted reference range : 166 - 358 10*3/ ?L. The reference r cheyanne was not used to interpret this result as normal/abnormal . MPV (test code = 9.7 fL 9.5-12.9 70463-9) NRBC/100 WBC (test See_Comment [Automat ed code = 3979782708) message] The system which generated this result transmitted reference range : 0.0 - 10.0 /100 WBCs. The refer ence range was not u sed to interpret th is result as normal/abnormal . NRBC x10^3 (test code <0.01 See_Comment [Auto mated = 0763927903) message] The s ystem which generated this result transmitted reference range : 10*3/?L. The reference range was not used to interpret this result as normal/abnormal . GRAN MAT (NEUT) % 24.4 % (test code = 770-8) IMM GRAN % (test code 0.30 % = 1986801222) LYMPH % (test code = 57.6 % 736-9) MONO % (test code = 14.8 % 5905-5) EOS % (test code = 2.0 % 713-8) BASO % (test code = 0.9 % 706-2) GRAN MAT x10^3(ANC) 2.31 10*3/uL 1.88-7.09 (test code = 8781451409) IMM GRAN x10^3 (test 0.03 10*3/uL 0.00-0.06 code = 3468210119) LYMPH x10^3 (test code 5.46 10*3/uL 1.32-3.29 H = 731-0) MONO x10^3 (test code 1.40 10*3/uL 0.33-0.92 H = 742-7) EOS x10^3 (test code = 0.19 10*3/uL 0.03-0.39 711-2) BASO x10^3 (test code 0.09 10*3/uL 0.01-0.07 H = 704-7) Lab Interpretation Abnormal (test code = 04089-1) [facility]aPTT[facility] 17:00:11 Test Item Value Reference Range [...] seconds. Lab Interpretation Normal (test code = 43053-8) [facility] HospitalPROTHROMBIN TIME / [id number] 16:58:08 Test Item Value Reference Range Interpretation [...] tions. Lab Interpretation (test Normal code = 60607-6) [facility]ATED[facility]2021-02-22 17:14:54 Test Item Value Reference Range Interpretation Comments POCT GLU (test code = 1873335329) 228 mg/dL 70-110 H Lab Interpretation (test code = Abnormal 17959-8) [facility]LAB ONLY COVID [id number] 15:07:04COVID DMT InterpretationInterpretation/Recommendations: Molecular NAAT Tests for [...] medical record. [facility] SERVICESCOVID ResultsS ARS-CoV-2 Rapid ID NOW (no units) ? ? Date ? Value ? 02/20/2021 ? Not Detected ? [facility]2021-02-22 13:41:36 Test Item Value Reference Range Interpretation Comments POCT GLU (test code = 5481453688) 242 mg/dL 70-110 H Lab Interpretation (test code = Abnormal 87323-4) [facility] HospitalURINE [id number] 12:26:08 Test Item Value Reference Range Interpretation Comments URINE CULTURE (test No aerobic growth (< code = 630-4) 1000 CFU/mL) [facility]N-[facility]MINAL [id number] 10:40:25 Test Item Value Reference Range Interpretation Comments NT-proBNP (test code 1440 pg/mL See_Comment H [Autom ated = 4884218171) message] The system which generated this result transmitted reference range : <=450. The reference range was not used to interpret this result as normal/abnormal . CARL (test code = CARL) Biotin has been reported to cause a negative bias, interpret results relative to patient's use of biotin. Lab Interpretation Abnormal (test code = 90905-2) [facility] HospitalCOMP[facility] METABOLIC PANEL (53236)2021-02-22 10:34:04 Test Item Value Reference Range Interpretation Comments NA (test code = 132 mmol/L 135-145 L 2940076942) K (test code = 4.7 mmol/L 3.5-5.0 1642530295) CL (test code = 105 mmol/L 98-108 9857700138) CO2 TOTAL (test code = 20 mmol/L 23-31 L 3459658247) AGAP (test code = 2-16 4787608354) BUN (test code = 22 mg/dL 7-23 5133212238) GLUCOSE (test code = 212 mg/dL 70-110 H 7850428032) CREATININE (test code = 1.13 mg/dL 0.50-1.04 H 9879164724) TOTAL BILI (test code = 0.2 mg/dL 0.1-1.4 8845809998) CALCIUM (test code = 7.8 mg/dL 8.6-10.6 L 7377133281) T PROTEIN (test code = 5.1 g/dL 6.3-8.2 L 5450404928) ALBUMIN (test code = 2.8 g/dL 3.5-5.0 L 5884591399) ALK PHOS (test code = 38 U/L 34-122 0155666155) ALTv (test code = 13 U/L 5-35 1742-6) AST(SGOT) (test code = 21 U/L 13-40 5747753634) eGFR (test code = mL/min/1.73m2 9340262804) CARL (test code = CARL) Association of [...] tests). Lab Interpretation Abnormal (test code = 37874-8) [facility] 10:34[facility]04 Test Item Value Reference Range Interpretation Comments MAGNESIUM (test code = 9665716556) 1.9 mg/dL 1.7-2.4 Lab Interpretation (test code = Normal 41382-8) [facility] HospitalURIC [id number] 10:33:44 Test Item Value Reference Range Interpretation Comments URIC ACID (test code = 9992922560) 3.6 mg/dL 2.9-6.0 Lab Interpretation (test code = Normal 18285-2) [facility] WITH [id number] 10:04:39 Test Item Value Reference Range Interpretation [...] RDW-SD (test code = 49.0 fL 39.0-49.9 00376-2) RDW-CV (test code = 14.8 % 12.0-15.5 788-0) PLT (test code = See_Comment [Automated 777-3) message] The sy stem which generated this result transmitted reference range : 166 - 358 10*3/ ?L. The reference r cheyanne was not used to interpret this result as normal/abnormal . MPV (test code = 9.8 fL 9.5-12.9 36665-1) NRBC/100 WBC (test See_Comment [Automat ed code = 1222571363) message] The system which generated this result transmitted reference range : 0.0 - 10.0 /100 WBCs. The refer ence range was not u sed to interpret th is result as normal/abnormal . NRBC x10^3 (test code <0.01 See_Comment [Auto mated = 9656701831) message] The s ystem which generated this result transmitted reference range : 10*3/?L. The reference range was not used to interpret this result as normal/abnormal . GRAN MAT (NEUT) % 82.0 % (test code = 770-8) IMM GRAN % (test code 0.80 % = 2183346189) LYMPH % (test code = 10.2 % 736-9) MONO % (test code = 6.8 % 5905-5) EOS % (test code = 0.0 % 713-8) BASO % (test code = 0.2 % 706-2) GRAN MAT x10^3(ANC) 8.25 10*3/uL 1.88-7.09 H (test code = 1947145930) IMM GRAN x10^3 (test 0.08 10*3/uL 0.00-0.06 H code = 8643518837) LYMPH x10^3 (test code 1.03 10*3/uL 1.32-3.29 L = 731-0) MONO x10^3 (test code 0.68 10*3/uL 0.33-0.92 = 742-7) EOS x10^3 (test code = <0.03 0.03-0.39 L 711-2) BASO x10^3 (test code <0.03 0.01-0.07 = 704-7) Lab Interpretation Abnormal (test code = 67601-2) [facility]2021-02-22 02:20:17 Test Item Value Reference Range Interpretation Comments POCT GLU (test code = 4145102948) 318 mg/dL 70-110 H Lab Interpretation (test code = Abnormal 21318-6) [facility] HospitalVITAMIN B12, [id number] 21:50:20 Test Item Value Reference Range Interpretation Comments VIT B12 (test code = 434 pg/mL 240-930 8777164758) CARL (test code = CARL) Biotin has been reported to cause a positive bias, interpret results relative to patient's use of biotin. Lab Interpretation (test Normal code = 31379-9) [facility]2021-02-21 21:19:53 Test Item Value Reference Range Interpretation Comments POCT GLU (test code = 7769642629) 335 mg/dL 70-110 H Lab Interpretation (test code = Abnormal 58395-2) [facility] HospitalLEGIONELLA URINARY ANTIGEN [id number] 19:47:22 Test Item Value Reference Range Interpretation Comments Legionella Urinary Negative Negative Antigen (test code = 0740713244) CARL (test code = CARL) Negative for [...] test. Lab Interpretation (test Normal code = 03254-9) [facility] HospitalPROCALCITONIN2021-05-06 16:59:40 Test Item Value Reference Range Interpretation Comments Procalcitonin (test 0.08 ng/mL <0.07 H code = 4741186194) CARL (test code = CARL) INTERPRETATION OF [...] lung abscess/empyema. For further information please refer to:[email or web address] Lab Interpretation Abnormal (test code = 45136-3) [facility]2021-02-21 16:58:53 Test Item Value Reference Range Interpretation Comments POCT GLU (test code = 7212661682) 353 mg/dL 70-110 H Lab Interpretation (test code = Abnormal 90377-8) [facility] HospitalVITAMIN D, [id number] 16:35:33 Test Item Value Reference Range Interpretation Comments VIT D 25OH (test code = 27 ng/mL 25-80 87175-5) CARL (test code = CARL) Deficiency: <20 ng/mLInsufficiency : 20-24 ng/mLOptimal: 25-80 ng/mL Lab Interpretation (test Normal code = 52861-3) [facility] HospitalOSMOLALITY [id number] 16:00:43 Test Item Value Reference Range Interpretation Comments OSMO U (test code = See_Comment [Automa roxanna message] 7445179458) The system [employer] generated this result transmitted ref erence range: 50-1,100 mOsm/kg. The re ference range was not u sed to interpret this result as normal/abnor mal. Lab Interpretation (test Normal code = 62789-2) [facility] HospitalOSMOLALITY, SERUM OR [id number] 15:57:18 Test Item Value Reference Range Interpretation Comments OSMOLALITY (test code = See_Comment [Au tomated message] 1226894407) The system [employer] generated this result transmitted ref erence range: 278 - 30 5 mOsm/kg. The re ference range was not u sed to interpret this result as normal/abnor mal. Lab Interpretation (test Normal code = 51188-3) [facility] HospitalSEDIMENTATION [id number] 14:17:02 Test Item Value Reference Range Interpretation Comments ESR (test code = See_Comment H [Automated message] 2964090750) The system [employer] generated this result transmitted ref erence range: 0 - 20 m m/HR. The reference r cheyanne was not used to interpret this result as normal/abnor mal. Lab Interpretation (test Abnormal code = 63587-1) [facility] HospitalXR SH[facility] 2+ VW [id number] 13:53:22 Anterior dislocation of the right shoulder. RL: 5611 END OF REPORT Ordering Physician: TYRON STRINGER Clinical Indication: glenohumeral dislocation Additional Clinical Information: Technical Quality: Good Comparison: None Technique: 2 views of the right shoulder Findings: There is an anterior glenohumeral dislocation. There isosteopenia. There are calcified phlebolith overlying the axilla. There isno fracture fragment. [facility], Radiant Results Inft User - 02/21/2021 8:54 AM CDTOrdering Physician: TYRON Villalpandoinical Indication: glenohumeral disloca tion Additional Clinical Information:Technical Quality: GoodComparison: NoneTechnique: 2 views of the right shoulderFindings: There is an anterior glenohumeral dislocation. There isosteopenia. There are calcified phlebolith overlying the axilla. There isno fracture fragment.IMPRESSIONAnterior dislocati on of the right shoulder.RL: 5611END OF REPORT [facility] TaylorPO[facility] GLU[facility] (AUTOMATED) 2021-02-21 13:09:09 Test Item Value Reference Range Interpretation Comments POCT GLU (test code = 4894701100) 209 mg/dL 70-110 H Lab Interpretation (test code = Abnormal 53921-6) [facility] HospitalTROPONIN [id number] 12:13:42 Test Item Value Reference Range Interpretation Comments TROPONIN I (test 0.025 ng/mL See_Comment [Automated code = 6673655613) message] The system which generated this result [...] ? Lab Interpretation Normal (test code = 03417-0) [facility] HospitalN-[facility]MINAL [id number] 12:10:24 Test Item Value Reference Range Interpretation Comments NT-proBNP (test code 1490 pg/mL See_Comment H [Autom ated = 4955512113) message] The system which generated this result transmitted reference range : <=450. The reference range was not used to interpret this result as normal/abnormal . CARL (test code = CARL) Biotin has been reported to cause a negative bias, interpret results relative to patient's use of biotin. Lab Interpretation Abnormal (test code = 49115-6) [facility]COMP[facility] METABOLIC PANEL (96055)2021-02-21 12:09:43 Test Item Value Reference Range Interpretation Comments NA (test code = 131 mmol/L 135-145 L 9519662435) K (test code = 4.1 mmol/L 3.5-5.0 1557275155) CL (test code = 96 mmol/L 98-108 L 8925511626) CO2 TOTAL (test code = 26 mmol/L 23-31 7692882830) AGAP (test code = 2-16 0660269853) BUN (test code = 19 mg/dL 7-23 2758042245) GLUCOSE (test code = 90 mg/dL 70-110 2327782657) CREATININE (test code = 0.98 mg/dL 0.50-1.04 8064123056) TOTAL BILI (test code = 0.7 mg/dL 0.1-1.8 9969670311) CALCIUM (test code = 7.9 mg/dL 8.6-10.6 L 5076951424) T PROTEIN (test code = 5.4 g/dL 6.3-8.2 L 7156978437) ALBUMIN (test code = 3.0 g/dL 3.5-5.0 L 3284970818) ALK PHOS (test code = 37 U/L 34-122 6918140172) ALTv (test code = 13 U/L 5-35 1742-6) AST(SGOT) (test code = 35 U/L 13-40 3282867662) eGFR (test code = mL/min/1.73m2 4269884855) CARL (test code = CARL) Association of [...] tests). Lab Interpretation Abnormal (test code = 04196-3) [facility] HospitalMAGNESIUM2021-05-06 12:05:19 Test Item Value Reference Range Interpretation Comments MAGNESIUM (test code = 3220090110) 1.7 mg/dL 1.7-2.4 Lab Interpretation (test code = Normal 40088-2) [facility] HospitalURIC [id number] 12:04:59 Test Item Value Reference Range Interpretation Comments URIC ACID (test code = 2238394044) 4.0 mg/dL 2.9-6.0 Lab Interpretation (test code = Normal 64418-5) [facility]CB WITH [id number] 11:43:56 Test Item Value Reference Range Interpretation [...] RDW-SD (test code = 47.8 fL 39.0-49.9 91662-0) RDW-CV (test code = 14.8 % 12.0-15.5 788-0) PLT (test code = See_Comment [Automated 777-3) message] The sy stem which generated this result transmitted reference range : 166 - 358 10*3/ ?L. The reference r cheyanne was not used to interpret this result as normal/abnormal . MPV (test code = 10.2 fL 9.5-12.9 54907-1) NRBC/100 WBC (test See_Comment [Automat ed code = 4432142739) message] The system which generated this result transmitted reference range : 0.0 - 10.0 /100 WBCs. The refer ence range was not u sed to interpret th is result as normal/abnormal . NRBC x10^3 (test code <0.01 See_Comment [Auto mated = 9246225449) message] The s ystem which generated this result transmitted reference range : 10*3/?L. The reference range was not used to interpret this result as normal/abnormal . GRAN MAT (NEUT) % 81.3 % (test code = 770-8) IMM GRAN % (test code 0.70 % = 6472704724) LYMPH % (test code = 13.7 % 736-9) MONO % (test code = 3.0 % 5905-5) EOS % (test code = 0.6 % 713-8) BASO % (test code = 0.7 % 706-2) GRAN MAT x10^3(ANC) 4.41 10*3/uL 1.88-7.09 (test code = 7786954904) IMM GRAN x10^3 (test 0.04 10*3/uL 0.00-0.06 code = 4691378896) LYMPH x10^3 (test code 0.74 10*3/uL 1.32-3.29 L = 731-0) MONO x10^3 (test code 0.16 10*3/uL 0.33-0.92 L = 742-7) EOS x10^3 (test code = 0.03 10*3/uL 0.03-0.39 711-2) BASO x10^3 (test code 0.04 10*3/uL 0.01-0.07 = 704-7) Lab Interpretation Abnormal (test code = 03561-2) [facility]CT [facility] P[facility] W [id number] 09:25:19 No defined focal acute inflammatory process. [...] Degenerative changes in the lumbarspine RL: 109AF: 10638 End of report Examination: Computed tomography of the abdomen and pelvis with contrast Ordering Physician: MAURICIO STRINGER Date: 02/21/2021 1:30 AM History: Flank pain, [...] clinically appropriate. Degenerative changesin the lumbarspineRL: 109AFC: 14946Whm of report [facility] TaylorCT HEAD WO [id number] 09:17:191. ?No acute intracranial abnormality. RL: 6200 AFC: 62860Vrr of report. ORDERING PHYSICIAN: TYRON STRINGER CLINICAL HISTORY:Dizziness, non-specific head injury TECHNIQUE:CT of [...] - 02/21/2021 4:18 AM CDTORDERING PHYSICIAN: TYRON VILLALPANDOINICAL HISTORY:Dizziness, non-specific head injury TECHNIQUE:CT of the [...] clear.IMPRESSION1. No acute intracranial abnormality.RL: 6200 AFC: 01635Vru of report. [facility] GLUCOSE (AUTOMATED)2021-02-21 07:45:22 Test Item Value Reference Range Interpretation Comments POCT GLU (test code = 5341478820) 138 mg/dL 70-110 H Lab Interpretation (test code = Abnormal 66970-5) [facility] [id number] 07:16:11 Test Item Value Reference Range Interpretation Comments TROPONIN I (test 0.031 ng/mL See_Comment [Automated code = 8323380149) message] The system which generated this result [...] ? Lab Interpretation Normal (test code = 28768-4) [facility] [id number] 07:13:30 Test Item Value Reference Range Interpretation Comments IRON (test code = 1491904302) 27 ug/dL 50-160 L TIBC (test code = 2180991101) 224 ug/dL 250-410 L % FE SAT (test code = 0607413260) 12 % 20-50 L Lab Interpretation (test code = Abnormal 51333-7) [facility] HospitalPROTHROMBIN TIME / [id number] 06:48:08 Test Item Value Reference Range Interpretation Comments PROTIME PATIENT (test See_Comment [Auto mated message] code = 5964-2) The system [employer] ich generated this result transmitted ref erence range: 12.0 - 1 4.7 Seconds. The re ference range was not u sed to interpret this result as normal/abnor mal. INR (test code = 6301-6) Nor mal INR <1.1; Warfarin Therap eutic range 2.0 to 3. 0 or 2.5 to 3.5, dep ending upon the indica tions. Lab Interpretation (test Normal code = 32086-5) [facility] HospitalFERRITIN [id number] 06:23:04 Test Item Value Reference Range Interpretation Comments FERRITIN (test code = 112.0 ng/mL 11.0-264.0 3277404090) CARL (test code = CARL) Biotin has been reported to cause a negative bias, interpret results relative to patient's use of biotin. Lab Interpretation (test Normal code = 03379-1) [facility] HospitalTHYROID STIMULATING [id number] 06:20:07 Test Item Value Reference Range Interpretation Comments TSH (test code = See_Comment [Automated message] 3444235396) The system [employer] generated this result transmitted ref erence range: 0.45 - 4 .70 mIU/L. The refe rence range was not u sed to interpret this result as normal/abnor mal. Lab Interpretation (test Normal code = 73610-3) [facility] HospitalGLYCOSYLATED HEMOGLOBIN (A1C)2021-02-21 06:16:28 Test Item Value Reference Range Interpretation Comments HGB A1C (test code = 5.5 % 4.0-5.7 4548-4) CARL (test code = CARL) Reference RangesNormal: <5.7%Prediabetes: 5.7 - 6.4%Diabetes: > 6.5% Lab Interpretation (test Normal code = 80753-6) [facility] HospitalPROTEIN CREAT RATIO URINE [id number] 05:59:37 Test Item Value Reference Range Interpretation Comments T. PROT U (test code = 2888-6) 17 mg/dL CREAT U (test code = 9607954587) 34.5 mg/dL Protein/Creatinine Ratio Urine 0.0-2.0 (test code = 2606481478) [facility] HospitalPHOSPHORUS2021-05-06 05:59:02 Test Item Value Reference Range Interpretation Comments PHOSPHORUS (test code = 1869587878) 4.7 mg/dL 2.5-5.0 Lab Interpretation (test code = Normal 50704-1) [facility] HospitalURIC [id number] 05:58:57 Test Item Value Reference Range Interpretation Comments URIC ACID (test code = 8323200384) 3.5 mg/dL 2.9-6.0 Lab Interpretation (test code = Normal 43157-8) [facility] HospitalCREATINE [id number] 05:58:47 Test Item Value Reference Range Interpretation Comments CK (test code = 2299411392) 26 U/L 33-194 L Lab Interpretation (test code = Abnormal 38666-2) [facility] HospitalMAGNESIUM2021-05-06 05:58:42 Test Item Value Reference Range Interpretation Comments MAGNESIUM (test code = 3317821581) 1.7 mg/dL 1.7-2.4 Lab Interpretation (test code = Normal 95328-1) [facility] HospitalPO[facility] (AUT[facility]ATED)2021-02-21 05:57:21 Test Item Value Reference Range Interpretation Comments POCT GLU (test code = 9625514247) 59 mg/dL 70-110 L Lab Interpretation (test code = Abnormal 27391-0) [facility] HospitalSODIUM, URINE [id number] 05:55:36 Test Item Value Reference Range Interpretation Comments NA URINE (test code = 2264865206) 69 mmol/L [facility] HospitalLIPID PANEL (04485)(TOTAL CHOLESTEROL, TRIGLYCERIDES, HDL)2021-02-21 05:48:17 Test Item Value Reference Range Interpretation Comments CHOL (test code = 136 mg/dL 120-200 3797699257) HDL (test code = 75 mg/dL >50 6173385602) HDLC RATIO (test code = See_Comment [Au tomated message] [id number]) The system [employer] generated this result transmit roxanna reference range : <=4.5. The refe rence range was not u sed to interpret th is result as normal/abnormal . TRIG (test code = 158 mg/dL 30-170 5436710186) LDL CHOL (test code = 29 mg/dL See_Comment [Auto mated message] 02226-8) The system [employer] generated this result transmit roxanna reference range : <=160. The refe rence range was not u sed to interpret th is result as normal/abnormal . VLDL (test code = 32 mg/dL 5-60 3576651660) Lab Interpretation (test Normal code = 52689-8) [facility] [id number] 00:20:13 1. ?No fracture. 2. Possible glenohumeral [...] an acute wristinjury dedicated wrist films recommended. [facility], Radiant Results Inft User - 02/20/2021 7:21 [...] acutewrist injury dedicated wrist films recommended.RL: [facility] 2 VW [id number] 00:20:13 1. ?No fracture. 2. Possible glenohumeral [...] acutewrist injury dedicated wrist films recommended.RL: [facility] [id number] 22:41:33 Test Item Value Reference Range Interpretation Comments APPEARANCE (test code = Hazy Clear A 1210596771) COLOR (test code = Yellow Yellow 6254517208) PH (test code = 4.8-8.0 4232758499) SP GRAVITY (test code = 1.003-1.030 3682400884) GLU U QUAL (test code = Normal Normal 1491015799) BLOOD (test code = Negative Negative 7672543828) KETONES (test code = 20 mg/dL Negative A 2044336294) PROTEIN (test code = Negative Negative 2887-8) UROBILIN (test code = Normal Normal 3383765601) BILIRUBIN (test code = Negative Negative 1674053029) NITRITE (test code = Negative Negative 5739317498) LEUK NATHAN (test code = 250/uL Negative A 0181985622) RBC/HPF (test code = See_Comment [Autom ated message] 1089662834) The system [employer] generated this result transmitted ref erence range: 0 - 3 HP F. The reference range was not used to int erpret this result as normal/abnormal . WBC/HPF (test code = See_Comment H [Autom ated message] 4053359785) The system [employer] generated this result transmitted ref erence range: 0 - 5 HP F. The reference range was not used to int erpret this result as normal/abnormal . BACTERIA (test code = Many Negative A 2547611672) MUCOUS (test code = Moderate Negative LPF A 4370176212) Lab Interpretation (test Abnormal code = 44239-6) [facility] RAPID TESTING[facility]2021-02-20 22:40:01 Test Item Value Reference Range Interpretation Comments SARS-CoV-2 Rapid ID NOW Not Detected Not Detected (test code = 57037-3) CARL (test code = CARL) ID NOW COVID-19 Assay is an isothermal nucleic acid amplification test intended for the qualitative detection of nucleic acid from SARS-CoV-2 viral RNA in nasopharyngeal ([employer]) specimens. It is used under Emergency [...] indicated. Lab Interpretation Normal (test code = 62902-5) [facility] [id number] 21:58:52 Test Item Value Reference Range Interpretation Comments TROPONIN I (test 0.019 ng/mL See_Comment [Automated code = 9855603419) message] The system which generated this result [...] ? Lab Interpretation Normal (test code = 60643-3) [facility] [id number] 21:53:51 Test Item Value Reference Range Interpretation Comments NT-proBNP (test code 1840 pg/mL See_Comment H [Autom ated = 3687779009) message] The system which generated this result transmitted reference range : <=450. The reference range was not used to interpret this result as normal/abnormal . CARL (test code = CARL) Biotin has been reported to cause a negative bias, interpret results relative to patient's use of biotin. Lab Interpretation Abnormal (test code = 15787-9) [facility]OL[facility] (93440)2021-02-20 21:50:26 Test Item Value Reference Range Interpretation Comments NA (test code = 129 mmol/L 135-145 L 2679690722) K (test code = 3.4 mmol/L 3.5-5.0 L 4162655790) CL (test code = 94 mmol/L 98-108 L 3744032334) CO2 TOTAL (test code = 24 mmol/L 23-31 4770343695) AGAP (test code = 2-16 4093336460) BUN (test code = 18 mg/dL 7-23 3086289072) GLUCOSE (test code = 62 mg/dL 70-110 L 1970603098) CREATININE (test code = 1.00 mg/dL 0.50-1.04 6162001059) TOTAL BILI (test code = 0.9 mg/dL 0.1-1.2 2851430809) CALCIUM (test code = 8.5 mg/dL 8.6-10.6 L 7516691458) T PROTEIN (test code = 5.8 g/dL 6.3-8.2 L 8651064607) ALBUMIN (test code = 3.4 g/dL 3.5-5.0 L 3943161777) ALK PHOS (test code = 49 U/L 34-122 3839032071) ALTv (test code = 15 U/L 5-35 1742-6) AST(SGOT) (test code = 28 U/L 13-40 9151201894) eGFR (test code = mL/min/1.73m2 5152932420) CARL (test code = CARL) Association of [...] tests). Lab Interpretation Abnormal (test code = 32919-3) [facility] 21:50:26 Test Item Value Reference Range Interpretation Comments LIPASE (test code = 5654753194) 86 U/L 0-220 Lab Interpretation (test code = Normal 15441-3) [facility] WITH [id number] 21:25:40 Test Item Value Reference Range Interpretation [...] RDW-SD (test code = 47.0 fL 39.0-49.9 50819-6) RDW-CV (test code = 14.6 % 12.0-15.5 788-0) PLT (test code = See_Comment [Automated 777-3) message] The sy stem which generated this result transmitted reference range : 166 - 358 10*3/ ?L. The reference r cheyanne was not used to interpret this result as normal/abnormal . MPV (test code = 10.1 fL 9.5-12.9 00989-7) NRBC/100 WBC (test See_Comment [Automat ed code = 6536803662) message] The system which generated this result transmitted reference range : 0.0 - 10.0 /100 WBCs. The refer ence range was not u sed to interpret th is result as normal/abnormal . NRBC x10^3 (test code <0.01 See_Comment [Auto mated = 1436797827) message] The s ystem which generated this result transmitted reference range : 10*3/?L. The reference range was not used to interpret this result as normal/abnormal . GRAN MAT (NEUT) % 52.9 % (test code = 770-8) IMM GRAN % (test code 0.60 % = 2436204871) LYMPH % (test code = 35.0 % 736-9) MONO % (test code = 8.3 % 5905-5) EOS % (test code = 2.6 % 713-8) BASO % (test code = 0.6 % 706-2) GRAN MAT x10^3(ANC) 4.32 10*3/uL 1.88-7.09 (test code = 3115504014) IMM GRAN x10^3 (test 0.05 10*3/uL 0.00-0.06 code = 4008739210) LYMPH x10^3 (test code 2.86 10*3/uL 1.32-3.29 = 731-0) MONO x10^3 (test code 0.68 10*3/uL 0.33-0.92 = 742-7) EOS x10^3 (test code = 0.21 10*3/uL 0.03-0.39 711-2) BASO x10^3 (test code 0.05 10*3/uL 0.01-0.07 = 704-7) Lab Interpretation Abnormal (test code = 59615-7) [facility] HospitalL[facility] Whole [id number] 21:20:26 Test Item Value Reference Range Interpretation Comments LACTIC ACID (test code = 2.06 mmol/L 0.50-2.20 5388917680) Lab Interpretation (test code = Normal 07240-6) [facility]ST 1 [id number] 21:07:40 No acute cardiopulmonary abnormality. Preliminary Report [...] reviewed this study and agree with theabove report.[facility] 14:27:00 Test Item Value Reference Range Interpretation Comments Case Report (test code Medical Cytology = 104) Report Case: [id number] Authorizing Provider: Amor Muller MD Collected: 11/29/2020 02:08 PM Ordering Location: [facility] Endoscopy Received: 11/30/2020 02:52 PM Services Pathologist: Moises Aguilar MD Specimen: Pancreas, pancreas cyst DIAGNOSIS (test code = n2xlmAAuHXEao0gcNFCdnO 3220) FuZzEwMzNcZnRuYmpcdWMx IHtccnRmMVxlcGljOTIwMF vubcXzGEPoeDFuT9Gqnbio DSzpKK8pBQ7btVxigQUpqQ SpUPYoHeGgh8kyw305iGIr x1zyBEOZbkdrkZx2kGteX4 8iw0V5SgncR70gyLUmCHqb bGFpblxmczIwIFBBTkNSRU GCIDNRQ4UyFXwYFBYlGIOQ NKSlP5aZT8MONK9XUAkwcL AbJWBqHT3yKzonMZLJC9LG WPKTYFVLEnFVFDtSH76REe NZXHBhclxmMCAgICAtIFRo ZSBtdWNpbiBzdGFpbiBzaG 67olL2ABOoKZQhWHDxj0Fc dGSxq4BdgWr2dCK4NZEfnr 77NZB3QcHgb2R4NZX5OWIo BQIuv8wcOPXdgZHlZaYpZs NcZnRuYmpcdWMxXGRlZmYw b5qld278rUIzi0ylPXRyLi M7cPPfMDRypBUaA944KCFc VTzpc7yvx3LeMFPhvHAsf0 L1HEKLpodzyLr3gYsdY12c r1N9YkgiZ7sqNAFvTVHsT6 LcIE8nCGQwRwj6DCP2OYW1 YUQqNMRrW8ZsIN9aMSLnnL HdXQn1f7cfzJzyCDDwUZG0 t8inYGkmbzIqYG8bmq7lkF f9q2rqveLaWDEfVVTwdGVJ OUXrK3BgnHxsNp1eoJb4yJ tsNxmgWWE8Sgs1UO8dva26 ork7uSihWSWfyochPwA5HM odPKEhsgkfZMp6JJwkVMFz kEM2VIYanDXuP7KqXNWdCY 6pcce0WHN1KSiqCZZwMvD8 NDBcaGVhZGVyeTcyMFxmb2 89ATM2KrCfLJ6nG5Jmr4B7 kV8vbOApVMVmmWFzMoUqVV Lelm9vtECsOGutd6NsSKV1 hhU3cCArmFSkQMObOoB4AY haCX2uan33APFoAFU4on4c bGNccGdicmRyaGVhZFxwZ2 VhHOKae194ECRkO4HkTDKu b5W6poCwTqNeBSKtqHO4cv O7MJPmFQ2rkbpnq8spUDme WYtgLTCqopV3ecP1SKWshT EdV8RrxV2zCBLeUI2awvwb k7ptPHT8OMltQHXwVUK9Ed KsITHrk9Jhjof0PyGta1Wy sKEbECrxW23ov646HICglz EjQ9gtdJMajjmqiEMwttbl KJomcuZ6DCPzTHtetdotVE FaTBwqU4yiEhXkUWZlxHfx NGjip3CbAQLvDJPoYcYnrS DlSCOmNqy1JNYfmRHuJAYw KvBiM6qdioutXoVHCZNpg2 svJ7pzhGZGtYUqF7SbVGfy jsCpORgfLWmlRTBjICW8LL 7wMKFuOMTqmt85 COMMENT (test code = v5ywnBSkYIUkfGK1UkFyBB 3359) Vec4ixl6RfqMNiiLJrZWyb uQDprkGmfq20zGX5kW34LA 5oDTWvYwI6XXFlgkG4Iqz4 UHYbRBSrzJDmM650t0gue1 tbtxRpgHK9wRsoXBClROKv YWluXGZzMjAgQSBmZXcgcm VyK6XszsGkIXVyrDByKUZb aIMmWXrtWKlyQ4JtgKRwJO EcZA1xoNFdXWsatZeyvzOa CWpyxhzeqyNtk5V4wDV4cS 8eJP8iSJQltAEqICFypVxl wv1grPAhRPGwapDycy1aXY AwCJH6sQWrIKK5T3FlbIDy uOc6qBUghBNzMSRykOugBi BccGFyfQ== CPT Code(s) (test code q6ohjNAiVERpaFZ5LzMfLT = 3357) Gtr0ykd6KskHSwmFUwBUxq fHGjnbUrvx10jXL2gC94YW 6nLDMxAwB2JBWyrxN5Uet2 ICLiDVFknTRbH008b6lhy2 gnivYajWP9mAnzOAGxFSNw YWluXGZzMjAgODgxMDgsID n4WaHfAMLxht1= CLINICAL DATA (test u3xbbSStPUZbrGN5CuXnRQ code = 3355) Csp5fib1SwxDMcdNJcZVdo sGOmnwZllc00sLL0hJ67QZ 6eJWUnAxA9WKNetoT0Mea0 ZFWjZSSknVNjU159h7tkg2 bchuLarPS8zMoyNXNdRSEz JZzvJIGtZdXmIu64HJJpLA wtZY76IUSfCKBxHOLxk7mg LVahg1qapdVeoAymRBB2mL CzMK9sNAM0l6EscAGdywBk PzctFDJvkrC1bRYqkHFnM9 JlYXRpYyBoZWFkXHBhcn0= SPECIMEN SOURCE (test a1vokRQgXDSxqEF7DeZpXZ code = 3377) Iil7uyk9LtuCObrZGySCqc iFBtyaOcoq60iSF8aE81UN 6bAUQoPyZ3WGDyxcL3Blb9 ACRfGTXjbUMpE648s4kxo9 myzlCpfSK5gBceDSJfGAVe PApjVCSjQsSnOYJJV8ZIRN RwV9aYQFvhWZDPZIhiWr5L XHBhcn0= GROSS DESCRIPTION (test g0hiaFYpJTVojBI5GsNgLK code = 3366) Vvo8tsb6XejAAtmSCdTEpe hKAgbiVhjo03hML5vU72RH 4rXKKjDrK0DALxocP5Xld1 BVBwHOBtkTShS426m4sev3 kjjxXygJZ2rOkiRZNaWJTv ECxhEYMtJdElXvEyYGq5RB BjAPctiCwsP8r7s5EzM1vu ohPaBWPfkPL6rDOxTIVkwU BsZTsgcHJlcGFyZWQgNCBj rQTsy4YvyxCaGV7lDCBcrH CkjN4vQ0e4d4JysB5bcUQx fQ== MICROSCOPIC DESCRIPTION u6lrqZBzHXSdlML5DaHwAA (test code = 3371) Hak5psr5FuaKGoxZGdDUmz yZZhtkFpdk10yHF8qN38ZE 3vAZUfUbT4OJKjkkS6Fbf2 SRRnFZAgqPJpS416r5xvr0 yjtzBylHB5jGhrSFLwPWZi VJuyRLBfAsIeBDTfKb4jwG VkLiBccGFyfQ== SPECIAL STUDIES (test g2nnsSSwPHWymJC3XuEgNR code = 3376) Jip7hnj0OydIUlfHYvXRxb bUEwurWfmh04bID7yV26MO 3rNMRuJmG7KGYvorS6Dox3 BCRpWMLrfECyP055UCSoJC OiqWdhfcv5vD87JHBbaQ8t hQNnMVs9QRDbvtIrbKzamF 4jXyQiCiWzUcYYdDJrcH38 WYMshzZ5QDNfn30pe4HeoX hjnuQaLEJfXXmkG5s9EQNg YPKiVXH6y7Aaj2UpaW1peI 6ooEwnfE3drDZbbTP4aqkk i0Shy6HtS8tqcHAaeRTqyc MuXHBhciBNdWNpbiBccGFy ADLpcbFuy8whH0uhRKNiLX K9ST9jsaWvBhKnYE5qrM25 v7Fht08py29qpL9aoILfcv PpX94rkZRrtXIxa4CzOGZk iaTfmLY2HZEcXZfismeyk5 u1uTA7cPAznCLarZD0kCBw cTYvVZTCbZUzKOQcm395si 4aCEWntODnujEjpQ1mGTqq kwknpXOsRS4vJZHfRRPfRD BzGX00lhGgWK2ddSKnr9nr peLbkLXmz3WssUN2DBTsmK UegfvxMl0kOF42FVDlBEic lG9yeDNaxzPeZW6xXK8zE7 O0tFGkVIBtvnDpb0wtCNct TW4mEYEapWghNdxxATPlMC UlcxEzoCJ4BMChfQCmDOUy mVQzGLcyrSVkm2qnk6NgZ8 kffIanaEU0YXPfH3wdoHUq mMN0OOB2iR3oNXkqisCaKD Ubn7WnDIEfFREeBlN4rG8i EXT1NmDAyUlvVLU5HoX4MT vnWVQgGE0pLJqtRKmqD7Wf zGOzTYIHWKAbo1utO9qzIX Qqa1KscM0dzZH4rJHuYMKw mZK9VBSxQEU1NBfenMPmMX IaXHVhaTPhzVLuPd3efLBw F8EsQ3jlfvNirICriRW9vS PuKWndkwWtZIF8JXXayT9j EL0yZIUyxTXtKS8laIIpRK QvDGRwGNYhVHVyo4XeEWXb bw62KABeVikkgSgsLPYdGx 8yZv8bOMZptmRfPSA1SkAP MV7evgxzdWRcmFwfhl2uYP nrNWLTNPYaNTWsDWX5XXVz aW4fXOW9cQV8LUO7E8omU8 fuENLtxqMzNO9sSYOczLGq gtXvWOpeXK2jrDTaMSAyz8 GoeruzUBVtRKK2GRF9VQgk JYWkVJHpGk1wANFlvD0oX1 UeQII4weEwk4MxKpFGzNVy cH45rFRgcs12XQHbOWCcV5 FyZGVkIGFzIGludmVzdGln OERvi12qpKOhysErl4Nbbv UhUJVsG3gzESOvlPFaqFOl o9MntU7vhKZablMyPZV4iX NyRIUpbQ3hAEKhgUezZELt sF7vP0RdPKpsMx4gLMYmxr mzJT7bbx17OU9cafQsOI6h izUaQY79chGsNeUnQVv8GN sRRJjVPMs8MCPvvxIdpFBl mJNeKMZfzE2koLQjAi4iaS BoaWdoIGNvbXBsZXhpdHkg W6suuochIRvrhKGwo7KouQ 4rwTO9CZT7oX0fCxsnATY6 Gross assessment was [facility] performed at ([facility], = 2777) Department of Pathology, [address] [place] [id number], Technical component was [facility] performed at ([facility], = 2778) Department of Pathology, [address] [place] [address], Professional component [facility] was performed at ([facility], code = 2779) Department of Pathology, [address] [place] [address], [facility] Test Item Value Reference Range Interpretation Comments Case Report (test code Medical Cytology = 104) Report Case: [id number] Authorizing Provider: Amor Muller MD Collected: 11/29/2020 02:08 PM Ordering Location: [facility] Endoscopy Received: 11/30/2020 02:52 PM Services Pathologist: Moises Aguilar MD Specimen: Pancreas, pancreas cyst DIAGNOSIS (test code = s3ixoLYlLMCar6poRYSgyY 3220) FuZzEwMzNcZnRuYmpcdWMx IHtccnRmMVxlcGljOTIwMF mivmXjZHJccCJvQ9Yttbte KZgeNS8oGK9yuNxnbEQtbQ AjIGZqYyZjr5rij028aLCp r4xuYYCJzxtlcPb8rOxgT7 6md0D7WtwyR78kfUMzWQrz bGFpblxmczIwIFBBTkNSRU SVTYOJF3OwHAsHTFJiALWI IWAkK5iYI4EQOW4CIHgqrS MbGPSxYM8vIzkdPBAZN0FD XFWKOQQKQvFDIUuWI68BMt NZXHBhclxmMCAgICAtIFRo ZSBtdWNpbiBzdGFpbiBzaG 25peK9ILOuZGBoXEDfb0Th gOJpw0AhsCv2yWQ4PDZrci 47QTW9KgUwr8H0ATT5GFAd VVViv8xzCHIrlPNyTuCzVh NcZnRuYmpcdWMxXGRlZmYw j5yth920lWRrr1jiEQUbBm H8yLHoRLUwyMGcP485BFKf ZUnru7cjf3HnZGMnqGYbz9 X2XGZYbchvfMq2zByvL23x b9I8WddbK2jhEDFnFMNrJ5 PoXX9zBALpDaa2ZBA0CDY6 GZOkTBUcN7RqTM8wASArnT QdKIh1w3rxoIgmOMRfALP4 c6chKDqgrrJxWU1egk9soL y0b6kyadOnWWFcQNIjwHJQ NEAcF5TkqLxaKn0skGm3rY ysCpmaOZB7Fts2GO0zee25 cuj0rTlsZUKokcvmGdI4BB paMNVzyljnTKx7GYceMHLp mNK2FDFxqSLpU1FfHNCcGX 1xttm4BFA5UGunPGBdOkZ2 NDBcaGVhZGVyeTcyMFxmb2 10LQI3KmYsQY5mI3Nue2L3 sX3muCMkMQOrjVOfSqMiJP Oonn1svELlCMcyh5DnZWH6 rxI2hFLpdPBeCGFcAmX9AV obWV7qtx40GLRpFTK4du5d bGNccGdicmRyaGVhZFxwZ2 EqBJZue643GOEeO4RuEPKw c5X1wnBrQdByQCLqaLO0wy D4EQFtUH2zremow2mnXPhk GIbqZGVvvrY8tkJ3HQGxsL HwY6CkdP1cDCIkSH8nrryy n3lxIIP9OUulWBWwNFW1Tk XuNITcd1Zetbz8HlOju3Ht nLPyEMeoU78ek313FWRhjb WcP0kqdXHnaozatRGqtvnx ZGymhdS2WCXpWFngurjnFG UyNQtiX0zcVtIuQWKohGry GPkwd6KsJDYnDHQySnOaqS BeHPIfLmo8CQQcyLUbDIFf BoNkN4bksyojBcGEYFBhu7 kjI3iscVWQpLJsO9ShAHdm yrIpRFmdDBzhBVFgINU4AM 3xCYGbKXSdsd54 COMMENT (test code = z3eqaLClYUMjpDH9CmZwFR 7992) Luq3lnw8UkcTWefMPzGJei iDNcbkSakf43pKP8lU18DU 7bPRSqYkF5CEEpauW7Mot7 FADkMPPoqSQmR212l2vah1 uczhSeiRH9mIxyZVSkUWKc YWluXGZzMjAgQSBmZXcgcm BjV6AmyvCzUQIurLAkLITl kQLmCLddVAtyN4MeoJEtKC JgVO7qfEOjDKtwySmeorWq CKhqdimztdYfo8S5aKO7lW 7mLB4jBQIanGLdSXMuzAhg ij3rqGDcDFIonoBkyq4jSE XrMEI4eUIqDTP3S2WmuURn sDx4cZJteSXcCPSbeVnfDy BccGFyfQ== CPT Code(s) (test code q3vquHJtXDHvgTK1UuYfOG = 3357) Yxt5aor8LrxZMltYWzKSnq rCAuwnKpqs79bUM1eO54NN 4kKPWxNmV1JXApnsO1Rle1 OMEvWBZomTDxD915d7jwf3 mlngAuvHW6sGgfLYBqVSOv YWluXGZzMjAgODgxMDgsID c9FvHeABLjjg6= CLINICAL DATA (test e5trxNBbFFHdpCM7OhVwAN code = 3355) Gsq3nfd5UnuWPijOUfSLir mOTnhcFbyl31rMK0nR22RZ 4zAMEyQoN4FJGksmB3Wbm0 OKLkJKMktUNiE945r7zpx0 bmioSjsVE5fOgvXZUfDLIc NHlfVBWxPwNsAw75DZQvDU snWM49NOGnMUCtQICod9hb MMzgr9ajewNycDtyQZM4yV YfPT9lLFV2f9ArtXZvbrFu PsgsZMNohjE0iGGuqNVtQ9 JlYXRpYyBoZWFkXHBhcn0= SPECIMEN SOURCE (test y8dnaRKlXJTodXP0ExWmGX code = 3377) Gbr5vth0KqeRJnbMHhBAzh tLYwfqWwgg40uNR1pD79PV 0xBJGtWyW9YPGxhuR4Eaf4 JHZeGVTfaWQiK579c3oey0 wxnwSsbOK8wEzeYFYrCGGv ENyeRDAqNdJiFTMDV7GHAT XuU2yRAAiwYOPJCXtnMe2I XHBhcn0= GROSS DESCRIPTION (test y7rzxJExDBPkuOS9PiQvNB code = 3366) Ywt0vun9GwaSIshEAhHQhp iYOmqgTqot29oLK9oG29XH 1dLLPnWyR2BHHfefY3Svt5 STPlRRWmsLClM354q7glp3 itfqOluAJ9aBvpEOOlEPVd DBpeUCPrBmHwOoEeAWl1XP OdODhsrRyaE1i4x6HnO4kk huSnZRDadQT2jNClPZQyoQ BsZTsgcHJlcGFyZWQgNCBj hZDwi5OjsdEpJT3zBIEsxQ XdgR9wJ2x9s2NczN4iyESk fQ== MICROSCOPIC DESCRIPTION n3oegRUtEUIamLC8WjKvZC (test code = 3371) Tcu5fyz7SatYGnfYTnXIoz iVTbinFznz90yLA3zL73CX 0cOJCqQhR5CXEuluG0Kos6 ACJnOZExzQErE631h3qdk6 dycxPzaZW1uNzuMOKpYWXt RXwbSAJpXhTvPZQlBr1ztJ VkLiBccGFyfQ== SPECIAL STUDIES (test f2rcsYRwRSSuwUK6EjAlWO code = 3376) Act7wmm3QmqFMlfCIbJFml tGUddtIzcc02sUD3gR81VZ 7zXKVjEiG7QKIwljK7Nia0 TXJwZLIrrOMwN068FIAuUA MqtXouvug0yS80AQIydC0z nCPbANj2HPZxdhOppZivbD 5bEyGjBdKqNjRBmJDicM35 CTVkqcI6TMKec64hh0KhlH rpjyMuYGJcQOzpD8f3WUGv NTZcWLB0g7Gvp0SuwP3vsR 2fjIioaV6rhUZuaEQ2eeae w2Abg6XpG8cvvAHxyWWrzj MuXHBhciBNdWNpbiBccGFy IVEblvGzb7aeN5llENGgWU R4RU3zjvZbKlRkWA6vpY77 j1Qcn05fo12pvK2fuTRxcv XdM34mvCEkkERwx4JtEPBt cjTavSR2IJXeLCwagqsmt5 p2iDV9eKDxgROibKO1lXLx gUFuUDMSoVRnQDAuy768oq 3jYUGqoAHypyEqdH4aYFih cshtdAGoWN0dDRUpESPpOZ IkUY64laMzGS0lmNQnk4og cxHuiCZte7BbyYQ7ZMGveK UxwywcSm7sDX25CCGmKMfd lY3vcCPqzzQtIL3oQO5zX6 C0yOBmCRHuknXot9foFVcf PJ0xVSCtnTcxDpwnXFTgFJ McctAekGX2HFPmvAQiVMSl fOZxJIqncPStr4gyb2EmW3 gcsItbdMW8WPJdT9fedWPp qZU2HOG4sV3pDDcyrqVzGU Byb3HsQZRzNLKfCzP1kH6j RDD1OpGRrWmkLAN0TqP9IA ilLNSwJU3rUOjaDBcvY5Bz nQLeDGQWUVTwi1xtA6huAY Uhd7VdqB3uvXZ8yKSgEEMf sKT1RZKiVFQ1VTvrvVCiKX EcFYSziVUgoRTfVn2irOGq S5IfT0bhrbIgdNYfpFF1oJ UwNAcawyPqDJP2GPRmqY5a DP9tCDKkxEOpKT6fvEAeET IxOVWjTLJuRKKev3DfXZZh tt03XBKbRjovpGpuXQOuLc 4dJi9pHULswbIrTKD1LfCN BK4qksmvwBOpwPxzmr3cUY kaKVDUEVRhIXPmHTK7EMAm rN4oUZD2oYD8HBO1G2ekL5 zpKGWbrqWwTO8kSFGwoUHz ybZvZKggKO3wtQHyWCXaj3 TqgykuDOLiWJQ9HWD3WVac DXNjKEAeUx1wNHFhmC6hQ6 ClLFH1ocNon7JkNqMHaYMp kQ34xJOakt04YFGuNDMeP2 FyZGVkIGFzIGludmVzdGln GUZhx24iqNXsydYdv9Btbl TjUKDaB7hbVMSeyNExrDHn z9RvsZ6mtKOggnSgBGS4lI VvXMUnlV9uXAXinZbfUUVc dY7xE4BcXMmvGr8wHLVcel ntDT9ajn30NY2aeyQwBP8v wjXyMX34iuBnTdOdUYh5BU tZQUiQMNj3TCCaplDnhQMk vSHyBRTliY9ucRTdWj2ilK BoaWdoIGNvbXBsZXhpdHkg B2mbdjxiZQmxjKNpn1BlxI 1vvLP5DKL9fG5yJxbuZDA1 Gross assessment was [facility] performed at ([facility], = 2777) Department of Pathology, [address] [place] [address], Technical component was [facility] performed at ([facility], = 2778) Department of Pathology, [address] [place] [id number], Professional component [facility]. ke's was performed at ([facility], code = 2779) Department of Pathology, [address] [place] [address], [facility] 14:27:00Medical Cytology Report Case: [id number] Authorizing Provider: Amor Muller MD Collected: 11/29/2020 02:08 PM Ordering Location: [facility] Endoscopy Received: 11/30/2020 02:52 PM Services Pathologist: Moises Aguilar MD Specimen: Pancreas, pancreas cyst PANCREAS CYST, HEAD, FNA (CYTOSPINS): - NEGATIVE FOR MALIGNANCY - The mucin stain shows weak and focal positivity Signing Pathologist Direct Phone Line: [phone] signed by Moises Aguilar MD on 12/01/2020 at 2:27 PMA few reactive ductal epithelial cells are noted within a larger population of completely normal and non-reactive ductal epithelial cells. 35812, 260569.5 cm x 1.8 cm anechoic lesion suggestive of cyst identified in the pancreatic headPANCREAS CYST, HEAD, FNAReceived 17 ml cytorich red fixative samp le; prepared 4 cytospins and 1 mucin cytospinPerformed. The interpretation of this case included theuse of immunohistochemistry or special stains.Mucin Control Slides Examined: In-house known positivecontrols were evaluated along with the test tissue. These control slides run alongside of the patients sample show appropriate staining. Internal positive and negative controls when available are evaluated Immunohistochemistry technical testing was performed at [facility], Pathology Laboratory where it was developed and its performance characteristics were determined. It has notbeen cleared or approved by the U.S. Food and Drug Administration. The FDA has determined that such clearance or approval is not necessary. The test is used for clinical purposes. It should not be regarded as investigational or for research. This laboratory is certified under the Clinical Laboratory Improvement Amendments of 1988 (CLIA-88) as qualified to perform high complexity clinical laboratory te sting.[facility], Department of Pathology, [address] [place] [address], [facility], Department of Pathology, [address] [place] [address], [facility], Department of Pathology, [address] [place] [address], TZSCJNUO [id number] 16:01:00 Test Item Value Reference Range Interpretation Comments Cytology (test code = See Separate Report 4499) [facility] [id number] 16:01:00 Test Item Value Reference Range Interpretation Comments Cytology (test code = See Separate Report 2629) [facility] [id number] 16:01:00 Test Item Value Reference Range Interpretation Comments CYTOLOGY RESULT POINTER See Separate Report (NELSY) (test code = 2629) POC-Glucose [id number] 11:57:00 Test Item Value Reference Range Interpretation Comments POC-Glucose Meter (test 73 mg/dL 70-110 : TE STED AT [facility] code = 1538) [address] [facility], 770 30: Insurance Claims Specialist/Techni robbie ID = [id number] for HEIDI BARTLETT Lab Interpretation (test Normal code = 46869-5) [facility] [id number] 11:57:00 Test Item Value Reference Range Interpretation Comments POC-Glucose Meter (test 73 mg/dL 70-110 : TE STED AT [facility] code = 1538) [address] [facility], 770 30: Insurance Claims Specialist/Techni robbie ID = [id number] for HEIDI BARTLETT T Lab Interpretation (test Normal code = 60697-4) [facility]-GLUCOSE [id number] 11:57:00 Test Item Value Reference Range Interpretation Comments POC-GLUCOSE METER 73 mg/dL 70-110 : TESTED A T [facility] 6720 (BEAKER) (test code = [facility], 1538) [address]: Insurance Claims Specialist/Techni robbie ID = [id number] for CARLTON NEAL
[2023-03-18] MEDS ORDERED: MAGNES/ALUMIN/SIMET 30ML UCUP ONE (18:26)
[2023-03-18] MEDS ORDERED: LIDOCAINE VISCOUS 2% SOLN 15 ML UDC ONE (18:26)
--- NOTE | 2023-03-18 18:55 | RAD REPORT ---
EXAM DESCRIPTION: RADCedt Single View03/18/2023 6:22 pm CLINICAL HISTORY: lower throat pain COMPARISON: Chest Pa And Lat (2 Views) dated 06/10/2022; Chest Single View dated 05/20/2022; Chest Sing le View dated 03/21/2022; Chest Single View dated 03/20/2022 TECHNIQUE: Portable AP view of the chest. FINDINGS: Decreased inspiratory effort limits evaluation. Elevation of the right hemidiaphragm, more pronounced than on prior exams, possibility of a small subpulmonic effusion cannot be entirely exclu ded. Mild central interstitial prominence. No pneumothorax or effusion. The cardiomediastinal contou rs are unremarkable. IMPRESSION: Elevation of the right hemidiaphragm. Possibility of small right subpulmonic effusion re sourav. Mild central interstitial prominence, may reflect congestion.
[2023-03-18 19:03] LABS: Absolute Lymphocytes (CBC) 2.1 K/uL (0.7-4.9); Hematocrit 31.8 % (36.0-45.0); Lymphocytes % 27.9 % (15.3-44.8); MCV 93.9 fL (80-100); MPV 8.1 fL (7.6-11.3); RBC Red Blood Cell Count 3.38 M/uL (3.86-4.86)
[2023-03-18 19:06] LABS: Potassium 4.2 mEq/L (3.5-5.1); Troponin High Sensitivity 8.2 pg/mL (<58.9)
[2023-03-18] MEDS ORDERED: NA CHLORIDE 0.9% 1,000 ML ONE (19:38)
[2023-03-18] MEDS ORDERED: MORPHINE 2 MG/ML SYR ONE (19:38)
--- NOTE | 2023-03-18 19:56 | ER ---
Nurse's Notes [facility] Name: Caridad Chadwick Age: 87 yrs Sex: Female : 1935 Arrival Date: 03/18/2023 Time: 17:52 Bed 3 Private MD: Diagnosis: Hypo-osmolality and hyponatremia;Pain in throat Presentation: 03/18 18:03 Chief complaint: Patient states: Sore throat and body aches since Thursday, denies ph chills, N/V or headache. Coronavirus screen: Vaccine status: Patient reports receiving the 2nd dose of the covid vaccine. Ebola Screen: No symptoms or risks identified at this time. Initial Sepsis Screen: Does the patient meet any 2 criteria? No. Patient's initial sepsis screen is negative. Does the patient have a suspected source of infection? No. Patient's initial sepsis screen is negative. Risk Assessment: Do you want to hurt yourself or someone else? Patient reports no desire to harm self or others. Onset of symptoms was March 18, 2023. 18:03 Method Of Arrival: EMS: [facility] 18:03 Acuity: ZOIE 3 ph Triage Assessment: 21:32 General: Appears. EENT: No deficits noted. rv Screenin:32 [facility] ED Fall Risk Assessment (Adult) History of falling in the last 3 months, rv including since admission No falls in past 3 months (0 pts). Abuse screen: Denies threats or abuse. Denies injuries from another. Nutritional screening: No deficits noted. Tuberculosis screening: No symptoms or risk factors identified. Assessment: 19:36 General: Appears uncomfortable, unkempt, Behavior is cooperative, anxious. Pain: aa9 Complains of pain in suprapubic area, right lower quadrant and left lower quadrant Pain currently is 8 out of 10 on a pain scale. Neuro: Level of Consciousness is awake, alert, obeys commands, Oriented to person, place, time, situation. Respiratory: Airway is patent Respiratory effort is even, unlabored. GI: Patient currently denies nausea, vomiting. 19:37 Derm: Skin is intact, is fragile, is thin. aa9 Vital Signs: 18:03 BP 165 / 83; Pulse 70; Resp 18; Temp 97.2; Pulse Ox 98% on R/A; ph 20:51 BP 161 / 86; Pulse 71; Resp 17; Temp 98.1; Pulse Ox 96% on R/A; rv ED Course: 17:58 Patient arrived in ED. ph 17:59 Jaswant Vides MD is Attending Physician. bs3 18:06 Ismael Saxena, RN is Primary Nurse. bp 18:06 Triage completed. ph 18:24 Chest Single View XRAY In Process Unspecified. EDMS 19:36 Missed attempt(s): 22 gauge in left hand. Bleeding controlled, band aid applied, aa9 catheter tip intact. 19:55 Henry Abernathy MD is Hospitalizing Provider. bs3 20:54 Assisted to bedside commode. Cleaned of incontinence. aa9 21:32 Patient has correct armband on for positive identification. Placed in gown. Bed in low rv position. Call light in reach. Side rails up X 1. Client placed on continuous cardiac and pulse oximetry monitoring. NIBP monitoring applied. shelter monitor on. 21:47 No provider procedures requiring assistance completed. Patient admitted, IV remains in aa9 place. Administered Medications: 18:34 Drug: Viscous Lidocaine Mucous Membrane Liquid (4 %) 10 ml Route: Mucous Membrane; bp 20:48 Follow up: Response: No adverse reaction rv 18:34 Drug: Alum-Mag Hydroxide-Simeth PO Suspension (200 mg-200 mg-20 mg/5 mL) 30 ml Route: bp PO; 20:48 Follow up: Response: No adverse reaction rv 20:00 Drug: morphine IVP or IV 1 mg Route: IVP; Infused Over: 2 mins; Site: right antecubital;rv 20:48 Follow up: Response: No adverse reaction; Pain is unchanged, physician notified rv 20:00 Drug: NS 0.9% IV 1000 ml Route: IV; Rate: 100 ml/hr; Site: right antecubital; rv 20:49 Follow up: IV Status: Infusion continued upon admission rv Medication: 21:34 VIS not applicable for this client. rv Outcome: 19:55 Decision to Hospitalize by Provider. bs3 21:48 Admitted to Med/surg accompanied by tech, with chart, Report called to receiving nurse aa9 21:48 Condition: stable 21:48 Patient left the ED. aa9 Signatures: Dispatcher [employer] EDMN Tracey Madera RN RN Ismael Saxena, SHARLENE US Enmanuel Mcgee RN RN rv Nidia Sanchez, RN RN aa9 Jaswant Vides MD MD bs3
--- NOTE | 2023-03-18 19:56 | EDPHYS ---
Physician Documentation [facility] Name: Caridad Chadwick Age: 87 yrs Sex: Female : 1935 Arrival Date: 03/18/2023 Time: 17:52 Bed 3 Private MD: ED Physician Jaswant Vides HPI: 03/18 19:52 This 87 yrs old Female presents to ER via EMS with complaints of Sore Throat. bs3 19:52 Patient is DNR/DNI she has a history of chronic pain arthritis she is a poor historian bs3 but feels like she has pain in her throat since Thursday nothing seems to make it better or worse she is trying to tolerate oral intake but has not eaten much denies any fevers or chills chest pain shortness of breath she does note anxiety which is worsened by her current situation. ROS: 19:52 Constitutional: Negative for fever, chills bs3 19:52 All other systems are negative. Exam: 19:52 Constitutional: Patient appears frail she is in moderate distress Head/Face: bs3 Normocephalic, atraumatic. Eyes: Pupils equal round and reactive to light, extra-ocular motions intact. Lids and lashes normal. ENT: mmm, no posterior phyarngeal erythema Neck: She is tolerating her secretions she points to her sternal notch for the location of her symptoms she has no drooling her oropharynx is normal Chest/axilla: Normal chest wall appearance and motion. Nontender with no deformity. No lesions are appreciated. Cardiovascular: Regular rate and rhythm with a normal S1 and S2. symmetric pulses in upper extremities Abdomen/GI: Soft, non-tender, no rebound or guarding Skin: Warm, dry with normal turgor. Normal color with no rashes, no lesions, and no evidence of cellulitis. MS/ Extremity: Pulses equal, no cyanosis. Neurovascular intact. Full, normal range of motion. Neuro: Awake and alert, GCS 15, oriented to person, place, time, and situation. Cranial nerves II-XII grossly intact. Motor strength 5/5 in all extremities. Sensory grossly intact. Psych: Awake, alert, with orientation to person, place and time. Behavior, mood, and affect are within normal limits. Vital Signs: 18:03 BP 165 / 83; Pulse 70; Resp 18; Temp 97.2; Pulse Ox 98% on R/A; ph 20:51 BP 161 / 86; Pulse 71; Resp 17; Temp 98.1; Pulse Ox 96% on R/A; rv MDM: 17:59 Patient medically screened. bs3 19:25 Data reviewed: vital signs, nurses notes. ED course: Patient found to be hyponatremic bs3 likely hypovolemic hyponatremia given the decreased oral intake I discussed with Dr. Abernathy he requested me to reach out to nephrology nephrology Dr. Camarillo recommended 100 mL/h NS, and repeat labs in 4 hours, will admit for further workup, discussed goals of care, pt is dnr, dni. 19:52 Data reviewed: vital signs. ED course: Patient with throat pain unclear etiology she is bs3 tolerating her secretions we will get x-ray we will check labs treat symptoms and reassess her labs are notable for hyponatremia I discussed with her primary care who requested consultation by nephrology who I called who recommended 100 mL/h of normal saline and will review labs . 03/18 18:01 Order name: CBC with Diff bs3 03/18 18:01 Order name: BMP; Complete Time: 19:13 bs3 03/18 18:01 Order name: Troponin High Sensitivity; Complete Time: 19:13 bs3 03/18 19:18 Order name: BNP bs3 03/18 19:21 Order name: Osmolality, Serum bs3 03/18 19:21 Order name: Urine Sodium Random bs3 03/18 19:21 Order name: Urine Creatinine bs3 03/18 21:47 Order name: CBC Smear Scan EDMI 03/18 18:01 Order name: Chest Single View XRAY; Complete Time: 19:13 bs3 03/18 18:01 Order name: EKG - Nurse/Tech; Complete Time: 20:50 bs3 Administered Medications: 18:34 Drug: Viscous Lidocaine Mucous Membrane Liquid (4 %) 10 ml Route: Mucous Membrane; bp 20:48 Follow up: Response: No adverse reaction rv 18:34 Drug: Alum-Mag Hydroxide-Simeth PO Suspension (200 mg-200 mg-20 mg/5 mL) 30 ml Route: bp PO; 20:48 Follow up: Response: No adverse reaction rv 20:00 Drug: morphine IVP or IV 1 mg Route: IVP; Infused Over: 2 mins; Site: right antecubital;rv 20:48 Follow up: Response: No adverse reaction; Pain is unchanged, physician notified rv 20:00 Drug: NS 0.9% IV 1000 ml Route: IV; Rate: 100 ml/hr; Site: right antecubital; rv 20:49 Follow up: IV Status: Infusion continued upon admission rv Disposition Summary: 03/18/23 19:55 Hospitalization Ordered Hospitalization Status: Inpatient Admission bs3 Provider: Henry Abernathy3 Location: Telemetry/MedSur (Inpatient) bs3 Condition: Stable bs3 Problem: new bs3 Symptoms: have improved bs3 Bed/Room Type: Standard bs3 Room Assignment: 223(03/18/23 20:47) cg Diagnosis - Hypo-osmolality and hyponatremia bs3 - Pain in throat bs3 Forms: - Medication Reconciliation Form bs3 - SBAR form bs3 Signatures: Dispatcher [employer] Gabbi Morelos RN RN cg Ismael Saxena RN RN bp Vicente, Ronaldo, RN RN rv Jaswant Vides MD MD bs3 Corrections: (The following items were deleted from the chart) 20:47 19:55 bs3 cg
[2023-03-18 21:47] LABS: Blood Morphology Comment NOT SEEN (NOT SEEN); Platelet Estimate ADEQ; White Blood Cell Scan OK (OK)
[2023-03-18] MEDS: NA CHLORIDE 0.9% 1,000 ML IV SCH (22:22)
[2023-03-18] MEDS: TRAMADOL HCL 50 MG TAB PO PRN (22:38)
[2023-03-18 22:40] VITALS: BMI 24.8
[2023-03-18 23:19] VITALS: O2SAT 97
[2023-03-19 00:38] LABS: Specific Gravity 1.005 (1.005-1.030); Urine Bacteria 20-50 /HPF (<20); Urine Bilirubin NEGATIVE (Negative); Urine Blood 1+ (Negative); Urine Clarity Turbid (Clear); Urine Color Colorless (Yellow); Urine Glucose NEGATIVE (Negative); Urine Protein NEGATIVE (Negative); Urine RBC 21-50 /HPF (None Seen); Urine Urobilinogen Normal (Normal); Urine WBC Clump Many /HPF (None Seen)
[2023-03-19] MEDS: TRAMADOL HCL 50 MG TAB PO PRN (03:32)
[2023-03-19 06:32] VITALS: BP 166/87; TEMP 97.5
[2023-03-19 06:41] LABS: Potassium 3.6 mEq/L (3.5-5.1)
[2023-03-19] MEDS: NA CHLORIDE 0.9% 1,000 ML IV SCH (07:17)
[2023-03-19 07:29] LABS: Albumin 3.2 g/dL (3.4-5.0); Bilirubin Direct 0.2 mg/dL (0-0.2); Bilirubin Indirect, Calculated 0.3 mg/dL (0.2-0.8); Bilirubin Total 0.5 mg/dL (0.2-1.0); Protein, Total 6.5 g/dL (6.4-8.2); Thyroid Stimulating Hormone 1.82 uIU/mL (0.358-3.740)
[2023-03-19] MEDS ORDERED: levoFLOXacin 500 MG TAB PO ONE (07:32)
--- NOTE | 2023-03-19 12:08 | EKG ---
Test Date: 2023-03-18 Test Time: 19:13:24 [employer]: RV MEASUREMENT RESULTS: Intervals: Rate: 66 MA: 174 QRSD: 88 QT: 432 QTc: 452 [place]: P: 55 MA: 174 QRS: -48 T: -18 INTERPRETIVE STATEMENTS: Normal sinus rhythm Left axis deviation Cannot rule out Anterior infarct, age undetermined Abnormal ECG Compared to ECG 03/21/2022 21:21:23 No significant changes Electronically Signed On 03-19-23 12:06:00 CDT by Khai Espinal
--- NOTE | 2023-03-19 23:39 | SS ---
Date of Admission: 03/19/2023 Date of Discharge: 03/19/2023 Chief Complaint: Throat discomfort. History Of Present Illness: This is an 87-year-old very pleasant female patient with multiple comorbidities, came into emergency room with 1-2 weeks' history of some vague discomfort in the throat and mostly complaining of trouble swallowing feeling. She denies having any trouble swallowing food or liquids. Denies any choking episode. After she came into emergency room, she was evaluated and routine blood work showed sodium level was extremely low at 122 and I was contacted requesting admission to the hospital. Nephrology consultation was requested and the patient was started on IV fluid, normal saline at 100 cc/hour. When I saw her this morning, her was with her at bedside. Allergies: CODEINE causing hallucinations. Medications: Medication list reviewed. Review of Systems: GI: As mentioned above. Musculoskeletal: Chronic joint pain unchanged. All other systems reviewed and negative. Past Medical History: Significant for peripheral neuropathy, type 2 diabetes mellitus, hypertension, mixed hyperlipidemia, gastroesophageal reflux disease, diverticulosis, rheumatoid arthritis, polymyalgia rheumatica, squamous cell carcinoma of left hand, anemia, insomnia. Past Surgical History: Cataract surgery, hysterectomy, bladder suspension, backsurgery, knee surgery, foot surgery, and removal of squamous cell carcinoma in May 22, 2021. Family History: Father , had lung cancer. Mother , details unknown. Brother has diabetes. Sister had lung cancer. Social History: Negative for smoking. Use of alcohol very occasional. Physical Examination: Vital Signs: Height 5 feet 1 inch, weight 131 pounds. Temperature 97.5, pulse 83, respiratory rate 17, blood pressure 166/87, oxygen saturation 98% on room air. General: Awake, alert, oriented, not in distress. HEENT: Head atraumatic, normocephalic. Conjunctivae nonerythematous. Sclerae white. Mouth, extremely dry oral mucosa. Ears/Nose, no mass, lesion, discharge noted. Neck: Supple. No JVD, lymph nodes, bruit, thyromegaly noted. Lungs: Bilateral good equal air entry. Clear to auscultation. No rhonchi. No rales. Heart: Normal heart sounds, no murmur or gallop. Abdomen: Soft, bowel sounds normal. No guarding, rigidity, tenderness, mass, hepatosplenomegaly, distention, or bruit noted. Extremities: No leg edema. No calf tenderness. Skin: No rash, ulcer, cellulitis. Lymphatics: No lymph node enlargement in neck, supraclavicular, infraclavicular region. Neuro: No focal neurological deficit. Chest: Unremarkable. External Genitalia: Deferred. Rectal: Deferred. Laboratory Data: White count 7.7, hemoglobin 11, platelets 193. Yesterday, sodium 122, potassium 4.2, chloride 93, bicarb 24, BUN 22, creatinine 1.20, glucose 125. Troponin 8.2. ProBNP 2795. Serum osmolality 270. This morning, sodium 132, potassium 3.6, chloride 101, bicarb 24, BUN 16, creatinine 1.14, glucose 79. Liver function tests unremarkable. Triglycerides 136, total cholesterol 129, LDL 26, HDL 76. TSH 1.82. Urinalysis shows leukocyte esterase 500, rbc's 21-50, bacteria 20-50, wbc's more than 50. Hospital Course: After patient was evaluated in the emergency room, she was admitted to the hospital. IV fluid was started and this morning her hyponatremia problem has improved significantly. She does not have any trouble swallowing food or liquids and only drying. She has trouble swallowing is when she is swallowing tablets. She has extreme dryness of her oral mucosa and I have advised her and her that before she decides to swallow any tablets, she should drink few sips of water and throughout the day, she should use sugarless chewing gum off and on to see if that helps to produce more saliva to help reduce dryness of mouth. If these simple measures does not work, we may have to consider medications for this dry mouth problem. She does have urinary tract infection and 1 dose of Levaquin 500 mg p.o. was ordered prior to discharge and will continue empiric antibiotic on outpatient basis. Urine culture result is pending. If she continues to describe any swallowing difficulty then consultation with GI physician for consideration of EGD should be considered on an outpatient basis and this was discussed with her and her . Patient was discharged to go home in stable and improved condition with following discharge medications instructions. Discharge Medications: 1. Continue all prior home medications. 2. Take Levaquin 250 mg daily for 1 week. 3. Take sodium chloride 1 g tablet, take 1 tablet by mouth daily. 4. Follow up at my office next week next. Final Diagnoses: 1. Hyponatremia. 2. Dry mouth. 3. Dysphagia, oropharyngeal. 4. Hypertension. 5. Type 2 diabetes mellitus. 6. Anemia, chronic, unspecified. 7. Osteoarthritis, multiple sites. 8. Hyperlipidemia. NIMA/MODL Voice ID: [id number] Report ID: [id number]
== END 2023-03-19 09:30 | disposition home or self-care (01) ==
LOC: ER 17:52 → ERHOLD 19:32 → INTOOBSV 19:32 → 2ND 20:55
PROVIDERS: ADMIT Internal Medicine; ATTEND Internal Medicine
DX: E87.1 Hypo-osmolality and hyponatremia (principal); R07.0 Pain in throat; R13.12 Dysphagia, oropharyngeal phase; I10 Essential (primary) hypertension; R68.2 Dry mouth, unspecified; E11.9 Type 2 diabetes mellitus without complications; D64.9 Anemia, unspecified; M19.90 Unspecified osteoarthritis, unspecified site; E78.5 Hyperlipidemia, unspecified
CPT/HCPCS: 96361; 93005; 87088; 85025; 81001; 87086; 80048 ×2; 36415; 84300; 80061; 80076; 84443; 87077; 87186; 82570; 84484; 83880; 83930; 71045; 96374; 99285; J2270; J7030 ×2; G0378 ×3